=== PATIENT | female | born 1935 | race Caucasian/White ===

== ENCOUNTER 2023-01-19 12:47 | Outpatient (OUT) | payer MEDICARE, OTHER, SELFPAY ==
--- NOTE | 2023-01-19 | RT_ITS ---
The [facility] Test Date: 2023-01-19 Pat Name: Karen Ladd Department: Room: - Gender: Female Aerospace Technician: Mitch Kelly RRT : 1935 Requested By: [id number] Order Number: [id number] Reading MD: Damian Person Interpretive Statements Pulmonary function testing was completed according to ATS criteria. Findings were considered accurate and reproducible. Both pre- and post-bronchodilator values utilized for spirometry. No prior studies available for comparison. Spirometry (based on pre-bronchodilator values): -FEV1/FVC: Normal @ 85% -FEV1: Low normal @ 80% -FVC: Mild-moderately reduced @ 70% -There is no significant bronchodilator response. Lung volumes by plethysmography (based on pre-bronchodilator values): -RV: Reduced @ 78% -TLC: Mildly reduced @ 75% Diffusion capacity: -DLCO: Severe reduction @ 45% when corrected for Hb 10.8g/dL Flow-volume loop: -Mild restrictive pattern Impressions: -Mild restrictive pattern on spirometry confirmed by a mildly decreased TLC, and a severe diffusion impairment. This pattern can be seen in, but not restricted to, cardiopulmonary vascular disorders and interstitial lung disease. Clinical correlation required. Electronically Signed On 01-20-2023 18:14:37 EDT by Damian Person
[2023-01-19 13:08] LABS: Hemoglobin 10.8 g/dL (12.0-16.0)
[2023-01-19] MEDS: ALBUTEROL SULFATE 2.5 MG/3 ML VIAL NEB IH (15:57)
== END 2023-01-19 12:48 ==
LOC: CARD 12:53
PROVIDERS: PCP Family Medicine; Visit Provider Nurse Practitioner Family
DX: R06.09 Other forms of dyspnea (principal)
CPT/HCPCS: 36415; 85018; 94060; 94726; 94729

== ENCOUNTER 2023-02-21 10:50 | Outpatient (OUT) | payer MEDICARE, OTHER, SELFPAY ==
--- NOTE | 2023-02-21 11:01 | XR_ITS ---
The [address] [address] Patient Name: DEBORA GIFFORD MRN: [id number] date: 1935 Sex: F Assigned Patient Location: [facility] Current Patient Location: [facility] Accession/Order Number: [id number] Exam Date: 02/21/2023 11:05 Report Date: 02/21/2023 11:38 At the request of: DEMARIO GARCIA Procedure: XR chest 2V EXAM: XR chest 2V HISTORY: Acute Bronchitis J20.9 COMPARISON: None. TECHNIQUE: PA and lateral views of the chest. FINDINGS: The cardiomediastinal silhouette is enlarged. Left-sided cardiac pacemaker. Mild interstitial opacity. Small bilateral pleural effusions. No pneumothorax. The osseous structures are intact. XR/XR chest 2V IMPRESSION: Cardiomegaly with congestion. Underlying pneumonia cannot be excluded. Electronically authenticated by: ABIMBOLA AMADOR Date: 02/21/2023 11:38
== END 2023-02-21 10:51 | disposition home or self-care (01) ==
PROVIDERS: PCP Family Medicine; Visit Provider Internal Medicine
DX: J20.9 Acute bronchitis, unspecified (principal); I51.7 Cardiomegaly
CPT/HCPCS: 71046

== ENCOUNTER 2023-02-21 18:37 | Observation (INO) | payer MEDICARE, OTHER, SELFPAY ==
[2023-02-21] VITALS (17 sets, daily range): BP systolic 104–136; BP diastolic 57–82; PULSE 66–90; RESP 15–30; TEMP 36.4–36.6; O2SAT 87–95; BMI 25.7; BMI 28.5
--- NOTE | 2023-02-21 19:13 | ECG_ITS ---
The [facility] Test Date: 2023-02-21 Pat Name: DEBORA GIFFORD Department: Room: - Gender: Female Medical Communication Specialist: : 1935 Requested By: [id number] Order Number: [id number] Reading MD: VINCENZO AUSTIN Measurements Intervals [place] Rate: 74 P: 90 CT: 240 QRS: 71 QRSD: 228 T: 112 QT: 532 QTc: 559 Interpretive Statements 1100 Sinus rhythm 1102 Sinus arrhythmia 2231 First degree AV block 2550 Left bundle branch block 6230 Left atrial enlargement 9150 abnormal ECG No previous ECG available for comparison Electronically Signed On 02-22-2023 6:21:30 EDT by VINCENZO AUSTIN
--- NOTE | 2023-02-21 19:15 | XR_ITS ---
The [address] [address] Patient Name: DEBORA GIFFORD MRN: [id number] date: 1935 Sex: F Assigned Patient Location: ER Current Patient Location: ER Accession/Order Number: [id number] Exam Date: 02/21/2023 20:10 Report Date: 02/21/2023 20:41 At the request of: NADEEM MARKER Procedure: XR chest 1V EXAMINATION: XR chest 1V HISTORY: Shortness of breath COMPARISON: Chest x-rays 11:22 AM TECHNIQUE: Portable chest FINDINGS: Again demonstrated is poor inspiratory effort. The lung parenchyma is free of consolidation or infiltrate. No pneumothorax or pleural effusion. The cardiac, mediastinal and hilar contours are normal. Left-sided cardiac pacemaker. The visualized osseous structures exhibit no gross abnormality. XR/XR chest 1V IMPRESSION: Poor inspiratory effort. No focal discrete irregularity. Dedicated full inspiratory PA and lateral chest radiographs Electronically authenticated by: JAY BARRIENTOS Date: 02/21/2023 20:41
--- NOTE | 2023-02-21 19:18 | ED_ITS ---
HPI - SOB/Dyspnea General Stated Complaint: SOB, COUGH Time Seen by Provider: 02/21/23 19:13 Source: patient and family (daughter) Mode of arrival: walk-in Limitations: no limitations History of Present Illness HPI Narrative: 87-year-old female is brought to the emergency department by her daughter for evaluation of cough, shortness of breath, generalized weakness. Symptoms have been ongoing for approximately 2 weeks. The patient recently had pulmonary function tests done and failed them. She also had her pacemaker evaluated and there seemed to be a problem with it. She was referred to Dr. Person, pulmonology, she saw him earlier in the day and he stated that she needed to recover from the upper respiratory illness that she currently had before he could fully evaluate her. He prescribed her a steroid, cough medication and zithromax. The patient has been having coughing spells with posttussive vomiting and gagging. She coughs up white sputum. She has not had a fever. She states she has felt very weak. She has had no appetite. Her po intake has been poor and she feels like she is getting dehydrated so she has not taken her lasix, 40mg. She sleeps with the head of her bed elevated but states that this is due to her acid reflux. She denies any su chest pain but states she had some pain across her abdomen from coughing. She has no lower extremity pain or swelling. 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 She has had two COVID vaccinations and one booster. She does have a history of atrial fibrillation and is on Xarelto. MD elicited complaint: shortness of breath and cough Context: recent illness Related Data Home Medications Medication Instructions Recorded Confirmed albuterol sulfate 2.5 mg/3 mL 2.5 mg inhalation Q6H PRN 02/21/23 02/22/23 (0.083 %) solution for nebulization shortness of breath or wheezing atenolol 100 mg tablet 100 mg PO BID 02/21/23 02/22/23 azithromycin 250 mg tablet 250 mg PO DAILY 02/21/23 02/22/23 benzonatate 200 mg capsule 200 mg PO TID PRN cough 02/21/23 02/22/23 diltiazem HCl 240 mg 240 mg PO Q24H 02/21/23 02/22/23 capsule,extended release 24 hr flecainide 100 mg tablet 100 mg PO DAILY 02/21/23 02/22/23 furosemide 40 mg tablet 40 mg PO DAILY 02/21/23 02/22/23 latanoprost 0.005 % eye drops 1 drp ophthalmic (eye) QPM 02/21/23 02/22/23 liothyronine 5 mcg tablet 5 mcg PO DAILY 02/21/23 02/22/23 methylprednisolone 4 mg tablets in 4 mg PO DAILY 02/21/23 02/22/23 a dose pack potassium chloride 10 mEq 10 meq PO DAILY 02/21/23 02/22/23 tablet,extended release(part/cryst) rivaroxaban 20 mg tablet (Xarelto) 20 mg PO Q24H 02/21/23 02/22/23 simvastatin 10 mg tablet 10 mg PO QPM 02/21/23 02/22/23 hydralazine 100 mg tablet 100 mg PO TID 02/22/23 02/22/23 magnesium 250 mg tablet 250 mg PO DAILY 02/22/23 02/22/23 Allergies Allergy/AdvReac Type Severity Reaction Status Date / Time Sulfa (Sulfonamide Allergy Severe Verified 02/21/23 18:45 Antibiotics) channel blockers Allergy Severe Uncoded 02/21/23 18:45 Review of Systems ROS Status of ROS 10 or more systems reviewed and unremarkable except as noted in history and below [facility] Social History Do you think of yourself as: straight/heterosexual Gender Identity: female Exam Narrative Exam Narrative: Nurses note and vital signs reviewed, He has a normal pulse and blood pressure, she was afebrile, she has mild hypoxic with pulse ox of 93 percent on room air General: Nontoxic but uncomfortable-appearing elderly female, upon arrival she had an episode of bronchospasm with posttussive gagging and vomiting and soiled herself with liquid stool Skin: Warm, dry, no pallor noted. There is no rash noted. Head: Normocephalic, atraumatic Eye: Normal conjunctiva, no drainage, EOMI. PERRL Ears, Nose, Mouth, and Throat: oral mucosa is sticky, no swelling of the tongue, uvula or pharyngeal soft tissues Cardiovascular: Regular Rate and Rhythm Respiratory: Patient is Coughing with bronchospasm and posttussive gagging and vomiting upon arrival, lungs are clear but dimished at the bases, there is no wheezing rhonchi or rales appreciated, no accessory muscle use Back: non-tender, no CVA tenderness bilaterally to percussion. GI: Normal bowel sounds, no tenderness to palpation, no masses appreciated. No rebound, guarding, or rigidity noted. Musculoskeletal: The patient has no evidence of calf tenderness, no pitting edema, symmetrical pulses noted bilaterally Neurological: A&O x4, normal speech Psychiatric: Cooperative, Anxious,no focal deficits Constitutional Vital Signs, click to edit/add: Last Vital Signs Temp 97.5 F L 02/22/23 00:37 Pulse 75 02/22/23 00:37 Resp 16 02/22/23 00:37 BP 124/67 H 02/22/23 00:37 Pulse Ox 93 L 02/22/23 00:37 O2 Del Method Room Air 02/22/23 00:37 Course Reevaluation(s) Reevaluation #1: Pt reevaluated after IV fluids, Zofran and Hycodan. She is feeling somewhat better and states she has not coughed in an hour. She has an elevated d-dimer, elevated BNP, low hemoglobin at 9.1 and elevated lactic acid. Respiratory panel is pending at this time. Urinalysis is pending at this time. I ordered a CTA of her chest to further evaluate the elevated d-dimer. The patient is on Xarelto however for history of atrial fibrillation. Time: 20:23 Vital Signs Vital signs: Vital Signs Temperature 97.8 F 02/21/23 18:45 Pulse Rate 74 02/21/23 18:45 Respiratory Rate 20 02/21/23 18:45 Blood Pressure 128/59 H 02/21/23 18:45 Pulse Oximetry 95 02/21/23 18:45 Oxygen Delivery Method Room Air 02/21/23 18:45 Temperature 97.5 F L 02/22/23 00:37 Pulse Rate 75 02/22/23 00:37 Respiratory Rate 16 02/22/23 00:37 Blood Pressure 124/67 H 02/22/23 00:37 Pulse Oximetry 93 L 02/22/23 00:37 Oxygen Delivery Method Room Air 02/22/23 00:37 MDM - SOB/Dyspnea MDM Narrative Medical decision making narrative: This 87-year-old female with a history of coronary artery disease has a pacemaker and is on Xarelto with atrial fibrillation as well as hypertension chr onic obstructive pulmonary disease and congestive heart failure in the past presents for evaluation of 2 weeks of progressive cough with generalized weakness. She has not had a fever. The patient's daughter is with her. Upon arrival the patient yelled out for help because she was having trouble breathing due to bronchospasm related to her cough. She has a cough with white phlegm. She denies any su chest pain. She was seen earlier in the day by pulmonology and started on steroids for Zithromax and cough medication. She states she recently failed a pulmonary function test which is what prompted her to see the department store salesperson. She also recently had her pacemaker interrogated and there was a problem with that. The patient states she feels very weak and she feels dehydrated so she has not been taking her Lasix as prescribed. She does not have any lower extremity swelling however. She was evaluated in room 8 upon arrival. An EKG was performed that was a left bundle branch block with pacer spikes and no acute changes. An IV was placed and she was given normal saline to hydrate her and she was given a dose of Zofran and Hycodan for her coughing. After the Hycodan her cough improved and she was able to speak in complete sentences and rest more comfortably. Routine labs are reviewed. She has a normal white count. Her hemoglobin is mildly low at 9.1. She has a normal troponin. Electrolytes are normal. D-dimer was elevated at 1.92. BNP is also elevated at 1977. Lactic acid is elevated at 2.3. CXR shows some PVC and CTA of the chest shows multiple pulmonary nodules and bilateral pleural effusions. This is likely the etiology of her symptoms. She was medicated with 40 mg of IV Lasix and a Burns catheter was placed so that she would not have to get up and down to the bathroom overnig ht. Her respiratory panel was normal. There is no sign of infectious disease. Urinalysis is negative. She will likely benefit from diuresis in the hospital and further evaluation by Pulmonology. The case was discussed with the hospitalist and she is accepted for admission to med/surg. Differential Diagnosis Differential diagnosis: Likely acute exacerbation of chronic obstructive airways disease, congestive heart failure and community acquired pneumonia Lab Data Lab results narrative: Normal white count, low hemoglobin at 9.1, normal troponin, elevated d dimer at 1.92, mildly low sodium at 120, elevated lactic acid at 2.3, elevated BNP at 1977, normal urinalysis, negative respiratory panel Labs: Lab Results 02/21/23 02/21/23 02/21/23 Range/Units 19:35 20:20 22:50 WBC 10.0 (4.0-11.0) 10^3/uL RBC 3.69 L (4.20-5.40) 10^6/uL Hgb 9.1 L (12.0-16.0) g/dL Hct 28.8 L (36.0-48.0) % MCV 78.0 L (81.0-99.0) fL MCH 24.7 L (26.7-34.0) pg MCHC 31.6 (29.9-35.2) g/dL RDW 16.3 H (11.0-15.0) % Plt Count 237 (150-450) 10^3/uL MPV 8.8 L (9.5-13.5) fL Neut % (Auto) 86.2 H (43.0-75.0) % Lymph % (Auto) 6.7 L (20.5-60.0) % [place] % (Auto) 5.5 (1.7-12.0) % Eos % (Auto) 0.3 L (0.9-7.0) % Baso % (Auto) 0.3 (0.2-2.0) % Neut # (Auto) 8.6 H (1.4-6.5) 10^3/uL Lymph # (Auto) 0.7 L (1.2-3.8) 10^3/uL [place] # (Auto) 0.6 (0.3-0.8) 10^3/uL Eos # (Auto) 0.0 (0.0-0.7) 10^3/uL Baso # (Auto) 0.0 (0.0-0.1) 10^3/uL Abs Immat Gran (auto) 0.10 H (0.00-0.03) 10^3/uL Imm/Tot Granulo (auto) 1.0 H (0.0-0.5) % D-Dimer 1.92 H* (<=0.59) mg/L FEU Sodium 120 L* (136-145) mmol/L Potassium 4.2 (3.5-5.1) mmol/L Chloride 83 L* (98-107) mmol/L Carbon Dioxide 27.9 (21.0-32.0) mmol/L Anion Gap 13.3 BUN 17.0 (7.0-18.0) mg/dL Creatinine 0.91 (0.55-1.02) mg/dL Est GFR ( Amer) >60 (>=60) Est GFR (Non-Af Amer) 59 L (>=60) BUN/Creatinine Ratio 18.7 Glucose 200 H (74-106) mg/dL Lactate 2.3 H* (0.4-2.0) mmol/L Calcium 8.6 (8.5-10.1) mg/dL Total Bilirubin 0.9 (0.2-1.0) mg/dL AST 25 (15-37) U/L ALT 26 (14-59) U/L Alkaline Phosphatase 76 (46-116) U/L Troponin I High Sens 20.9 (4.0-51.3) pg/mL NT-Pro-B Natriuret Pep 1977.0 H* (<=1800.0) pg/mL Total Protein 7.1 (6.4-8.2) g/dL Albumin 3.4 (3.4-5.0) g/dL Globulin 3.7 g/dL Albumin/Globulin Ratio 0.9 Urine Color Yellow (YELLOW) Urine Clarity Clear (CLEAR) Urine pH 6.0 (5.0-9.0) Ur Specific [place] 1.015 (1.005-1.025) Urine Protein 30 A (NEG/TRACE) mg/dL Urine Glucose (UA) Negative (NEGATIVE) mg/dL Urine Ketones Negative (NEGATIVE) mg/dL Urine Occult Blood Negative (NEGATIVE) Urine Nitrite Negative (NEGATIVE) Urine Bilirubin Negative (NEGATIVE) Urine Urobilinogen 0.2 (0.2-1.0) EU/dL Ur Leukocyte Esterase Negative (NEGATIVE) Urine RBC 0-2 (0-2) #/HPF Urine WBC 0-2 A (NONE SEEN) #/HPF Ur Squamous Epith Cells Rare (NONE/RARE) #/LPF Urine Crystals None seen (None Seen) #/HPF Urine Bacteria None seen (NONE SEEN) #/HPF Urine Casts None seen (NONE SEEN) #/LPF Urine Mucus None seen (NONE SEEN) Adenovirus (PCR) Not detected (NOT DETECTE) C. pneumoniae DNA (PCR) Not detected (NOT DETECTE) Coronavirus Type OC43 Not detected (NOT DETECTE) Coronavirus Type HKU1 Not detected (NOT DETECTE) Coronavirus Type 229E Not detected (NOT DETECTE) Coronavirus Type NL63 Not detected (NOT DETECTE) Human Metapneumovir PCR Not detected (NOT DETECTE) M. pneumoniae (PCR) Not detected (NOT DETECTE) Parainfluenza PCR Not detected (NOT DETECTE) Parainfluenza 2 (PCR) Not detected (NOT DETECTE) Parainfluenza 3 (PCR) Not detected (NOT DETECTE) Parainfluenza 4 (PCR) Not detected (NOT DETECTE) RSV (RT-PCR) Not detected (NOT DETECTE) Entero/Rhino (PCR) Not detected (NOT DETECTE) SARS-CoV-2 (PCR) Not detected (NOT DETECTE) Bordetella pertussis (PCR) Not detected (NOT DETECTE) B parapertussis DNA PCR Not detected (NOT DETECTE) Influenza Type A (PCR) Not detected (NOT DETECTE) Influenza Type B (PCR) Not detected (NOT DETECTE) ECG Data Attestation: I personally reviewed and interpreted this ECG as follows: (Sinus arrhythmia at 74 beats for minute, normal axis, intermittent pacer spikes noted occasional PVCs, left bundle branch block no acute ST segment elevation) Critical Care Time Critical Care Time Critical Care Time: Yes Total Critical Care Time: 40 Attestation: This patient was seen and evaluated and treated by myself Discharge Plan Discharge Clinical Impression: Breath shortness, CHF (congestive heart failure), Anemia, Pleural effusion Patient Disposition: Admitted as Observation Condition: Fair Discharge Date/Time: 02/21/23 23:39
[2023-02-21 19:39] LABS: Basophils Percent Auto 0.3 % (0.2-2.0); Eosinophils Percent Auto 0.3 % (0.9-7.0); Hematocrit 28.8 % (36.0-48.0); Hemoglobin 9.1 g/dL (12.0-16.0); Lymphocytes Absolute Auto 0.7 10^3/uL (1.2-3.8); Lymphocytes Percent Auto 6.7 % (20.5-60.0); Mean Corpuscular HGB Conc 31.6 g/dL (29.9-35.2); Mean Corpuscular Hemoglobin 24.7 pg (26.7-34.0); Mean Platelet Volume 8.8 fL (9.5-13.5); Monocytes Absolute Auto 0.6 10^3/uL (0.3-0.8); Monocytes Percent Auto 5.5 % (1.7-12.0); Neutrophils Absolute Auto 8.6 10^3/uL (1.4-6.5); Neutrophils Percent Auto 86.2 % (43.0-75.0); Platelet Count 237 10^3/uL (150-450); Red Blood Count 3.69 10^6/uL (4.20-5.40); Red Cell Distribution Width 16.3 % (11.0-15.0)
[2023-02-21] MEDS: 0.9 % SODIUM CHLORIDE 1,000 ML 1000 ML IV (19:42)
[2023-02-21] MEDS: ONDANSETRON PF 4 MG/2 ML VIAL IV (19:42)
[2023-02-21 19:55] LABS: D Dimer 1.92 mg/L FEU (<=0.59)
[2023-02-21 20:00] LABS: Troponin I High Sensitivity 20.9 pg/mL (4.0-51.3)
[2023-02-21 20:06] LABS: Alanine Aminotransferase 26 U/L (14-59); Albumin Globulin Ratio 0.9; Albumin Level 3.4 g/dL (3.4-5.0); Alkaline Phosphatase 76 U/L (46-116); Anion Gap 13.3; Aspartate Amino Transferase 25 U/L (15-37); BUN Creatinine Ratio 18.7; Bilirubin Total 0.9 mg/dL (0.2-1.0); Calcium 8.6 mg/dL (8.5-10.1); Carbon Dioxide 27.9 mmol/L (21.0-32.0); Estimated GFR (African America >60 (>=60); Estimated GFR (Non-African Ame 59 (>=60); Globulin 3.7 g/dL; Glucose 200 mg/dL (74-106); Potassium 4.2 mmol/L (3.5-5.1); Total Protein 7.1 g/dL (6.4-8.2)
[2023-02-21 20:07] LABS: Lactate/Lactic Acid 2.3 mmol/L (0.4-2.0)
[2023-02-21 20:08] LABS: Chloride 83 mmol/L (98-107); Sodium 120 mmol/L (136-145)
--- NOTE | 2023-02-21 20:21 | CT_ITS ---
[address] [address] Patient Name: DEBORA GIFFORD MRN: [id number] date: 1935 Sex: F Assigned Patient Location: ER Current Patient Location: Accession/Order Number: [id number] Exam Date: 02/21/2023 20:50 Report Date: 02/21/2023 21:56 At the request of: NADEEM MARKER Procedure: CT angio chest EXAM: CT angio chest; [id number] REASON FOR EXAM: PE TECHNIQUE: Helical CT images of the chest were obtained after the administration of IV contrast. Multiplanar reformats and maximum intensity projection images were created at the scanner. Dose reduction technique used: Automated exposure control and/or adjustment of the mA and/or kV according to patient size and/or use of iterative reconstruction technique. COMPARISON: Correlated with same day chest x-ray. FINDINGS: Technical quality: Good. Chest: Support devices: Left-sided cardiac pulse generator present. Visualized Thyroid: No nodules. Chest wall: Within normal limits. Evon/mediastinum/esophagus: No mass. Thoracic lymph nodes: No enlarged supraclavicular, mediastinal, hilar or axillary lymph nodes. Heart and vasculature: -No pulmonary artery filling defect to suggest pulmonary embolism. -No pericardial effusion or aortic aneurysm. -Moderate cardiomegaly. -Reflux of contrast into the hepatic veins. Visualized portions of the upper abdomen: Within normal limits. Musculoskeletal: No acute abnormality or suspicious osseous lesion. Lungs/airways: -Solid nodule in the right lower lobe measuring 5 mm mean diameter (series 5 image 50). -Solid nodule versus focal fissural fluid at the right hilum measuring 9 mm in diameter (series 5 image 47). -Several additional (less than 10) 4 mm and less solid nodules are present predominantly in the right lung. -Bibasilar compressive atelectasis. -There is interstitial septal thickening. -Diffuse mosaic attenuation. -The central airways are patent. Pleura: Small bilateral pleural effusions. CT/CT angio chest IMPRESSION: 1. No pulmonary embolism. 2. Moderate CHF/volume overload. 3. Small bilateral pleural effusions. 4. Mosaic attenuation which could be due to air trapping in the setting of poor inspiratory effort versus pulmonary edema. 5. Multiple 9 mm and less solid nodules. In the absence of known malignancy or immunocompromise, consensus guidelines for multiple solid lung nodules 0.6 cm or greater: -Low risk: CT at 3-6 months, then consider CT at 18-24 months if stable. -High risk: CT at 3-6 months, then CT at 18-24 months if stable. (Ref: Pieter, et al. Radiology 2017) Electronically authenticated by: DAWSON CHRISTIANSON Date: 02/21/2023 21:56
[2023-02-21 20:28] LABS: Adenovirus NOT DETECTED (NOT DETECTE); Bordetella parapertussis NOT DETECTED (NOT DETECTE); Coronavirus 229E NOT DETECTED (NOT DETECTE); Coronavirus HKU1 NOT DETECTED (NOT DETECTE); Coronavirus NL63 NOT DETECTED (NOT DETECTE); Coronavirus OC43 NOT DETECTED (NOT DETECTE); Human Metapneumovirus NOT DETECTED (NOT DETECTE); Human Rhinovirus/Enterovirus NOT DETECTED (NOT DETECTE); Influenza A NOT DETECTED (NOT DETECTE); Influenza B NOT DETECTED (NOT DETECTE); Mycoplasma pneumoniae NOT DETECTED (NOT DETECTE); Parainfluenza Virus 1 NOT DETECTED (NOT DETECTE); Parainfluenza Virus 2 NOT DETECTED (NOT DETECTE); Parainfluenza Virus 3 NOT DETECTED (NOT DETECTE); Parainfluenza Virus 4 NOT DETECTED (NOT DETECTE); Respiratory Syncytial Virus NOT DETECTED (NOT DETECTE); SARS-CoV-2 NOT DETECTED (NOT DETECTE)
[2023-02-21] MEDS: CODEINE 10 MG/GUAIFENESIN 100 MG 5 ML CUP PO (20:33)
[2023-02-21 23:13] LABS: Bilirubin Urine NEGATIVE (NEGATIVE); Blood Urine NEGATIVE (NEGATIVE); Clarity Urine CLEAR (CLEAR); Color Urine YELLOW (YELLOW); Glucose Urine UA NEGATIVE (NEGATIVE); Ketones Urine NEGATIVE (NEGATIVE); Leukocyte Esterase Urine NEGATIVE (NEGATIVE); Nitrite Urine NEGATIVE (NEGATIVE); Protein Urine 30 mg/dL (NEG/TRACE); Specific Gravity Urine 1.015 (1.005-1.025); Urobilinogen Urine 0.2 EU/dL (0.2-1.0)
[2023-02-21] MEDS: FUROSEMIDE 40 MG/4 ML VIAL IVP (23:21)
[2023-02-21 23:29] LABS: Bacteria Urine NONE SEEN #/HPF (NONE SEEN); Cast Seen? NONE SEEN #/LPF (NONE SEEN); Crystals Seen? None Seen #/HPF (None Seen); Mucus Urine NONE SEEN (NONE SEEN); RBC Urine 0-2 #/HPF (0-2); Squamous Epithelial Cell Urine RARE #/LPF (NONE/RARE); WBC Urine 0-2 #/HPF (NONE SEEN)
[2023-02-22] VITALS (11 sets, daily range): BP systolic 124–133; BP diastolic 67–74; PULSE 67–87; RESP 16–18; TEMP 36.4–36.6; O2SAT 90–94
--- NOTE | 2023-02-22 00:26 | PC.NURSE ---
Pulmonary visit was this AM physician. Patient failed the pulmonary function test. He treated her for her acute problem and didn't order the CT scan due to her increased cough she had during the visit. University Relations Recruiter stated her pacemaker was abnormal and she has a return visit March [address] Muhammad. The appointment was moved up due to her acute issues.
--- NOTE | 2023-02-22 01:56 | CA_ITS ---
Patient: DEBORA GIFFORD Exam Date: 02/22/2023 : 1935 Gender:F Ordering : DR Billy Patel . Admission #: [id number] Family : Order #: [id number] CLICK HERE TO VIEW EXAM ECHOCARDIOGRAM REPORT PROCEDURE: CA ECHO LIMITED INDICATIONS: chf COMPARISON: None. DESCRIPTION: Limited ECHOCARDIOGRAM Real-time transthoracic echocardiography with 2D and M-mode performed. QUALITY: Technical quality was good. LEFT VENTRICLE: Normal chamber size. Mild concentric left ventricular hypertrophy. LV EF: Global left ventricular systolic function is normal. Calculated left ventricular ejection fraction is 62% LEFT ATRIUM: Severe dilatation. RIGHT ATRIUM: Severe dilatation. RIGHT VENTRICLE: Mild dilatation. Normal right ventricular systolic function. Pacer wire present. TRICUSPID VALVE: Normal mobility and thickness. MITRAL VALVE: Normal mobility and thickness. There is no mitral annular calcification. AORTIC VALVE: Normal trileaflet appearance. Mildly calcified aortic valve. AORTIC ROOT: Normal diameter and appearance. PULMONIC VALVE: Normal thickness and mobility. PERICARDIUM: No evidence of pericardial effusion. IVC: Moderate dilatation. Measuring 2.5cm with no collapse. CONCLUSION: Global left ventricular systolic function is normal; visually estimated ejection fraction is 60 to 65%. No regional wall motion abnormalities. Mildly increased left ventricular wall thickness. Severe biatrial enlargement. The right ventricle is mildly dilated with normal systolic function. A limited echocardiogram was performed. Adult Echocardiography Procedure Report Left Ventricle LVEDD (3.7 - 5.6 cm): 4.66 cm LVESD (2.2 - 4.0 cm): 3.28 cm LVIVS thickness (0.6 - 1.2 cm): 1.25 cm LVPW thickness (0.5 - 1.0 cm): 1.12 cm LVOT Diameter 1.95 cm Left Ventricular Ejection Fraction: 61.77 % Left Atrium LA Volume Index (2D A2C): 55.76 ml/m2 Left Atrium Systolic Dimension: 4.25 cm Mitral Valve Right Ventricle RV Internal Diastolic Dimension: 4.36 cm Aorta AO Root Diam: 2.58 cm Ascending Ao Diam: 2.78 cm Aortic Valve Tricuspid Valve Pulmonic Valve Right Atrium Right Atrium Systolic Pressure: 104.02 ml, 104.02 ml Dictated by: Tiera Heaton M.D. on 02/22/2023 at 12:24 Approved by: Tiera Heaton M.D. on 02/22/2023 at 12:26
--- NOTE | 2023-02-22 02:02 | W.PM.TELEPN ---
Progress Note: Subjective Subjective Interval history: CC: Dyspnea and extreme, cough productive with purulent sputum HPI: This is 89 years old female who presents with above complaints. Patient stating that lately she has been coughing a lot. No fever. Patient also been complaining of dyspnea on exertion. She describes her cough is barely productive with clear sputum. Patient followed by cigar head perforator. She has had PFTs done at Dr. Person office, but feel to do so. She has been recommended to be started on steroid taper, bronchodilators and empiric antibiotics. In spite of this medications his condition continued to deteriorate with worsening shortness of breath. Her daughter finally brought him in for further evaluation. In the emergency room patient's D-dimer found to be elevated. She has had a CT angiogram of her chest done which was negative for pulmonary emboli. Patient's BNP is significantly elevated as well. She has a history of congestive heart failure. Patient is on daily Lasix. Exam Narrative Exam Narrative: Physical Exam: Not in distress, pleasant, lucid, cooperative, Head - atraumatic, eyes - pupils equal, round, reactive to light, extra ocular movement intact, MMM Neck - supple, thyroid not enlarged, LN not palpated Lungs - clear to auscultation, no dullness on percussion CVS - heart sounds S1, S2, no additional murmurs gallop, regular rate and rhythm Gastrointestinal?abdomen is soft, non-tender, non-distended, no organomegaly, positive bowel sounds Extremities no clubbing, cyanosis or edema Neurological?cranial nerve II?XII grossly intact, no meningeal signs, no cerebellar signs, no sensory deficit Musculoskeletal - 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, no effusions, ROM preserved Dermatological - the skin dry, warm, no rashes Psychiatric?patient is AAO X3, patient has normal affect Constitutional Vital Signs, click to edit/add: Last Vital Signs Temp 97.5 F L 02/22/23 00:37 Pulse 75 02/22/23 00:37 Resp 16 02/22/23 00:37 BP 124/67 H 02/22/23 00:37 Pulse Ox 93 L 02/22/23 00:37 O2 Del Method Room Air 02/22/23 00:37 Progress Note: Objective Labs Labs: Short CBC 02/21/23 Range/Units 19:35 WBC 10.0 (4.0-11.0) 10^3/uL Hgb 9.1 L (12.0-16.0) g/dL Hct 28.8 L (36.0-48.0) % Plt Count 237 (150-450) 10^3/uL BMP 02/21/23 19:35 Sodium 120 L* Potassium 4.2 Chloride 83 L* Carbon Dioxide 27.9 BUN 17.0 Creatinine 0.91 Glucose 200 H Calcium 8.6 Liver Function 02/21/23 Range/Units 19:35 Total Bilirubin 0.9 (0.2-1.0) mg/dL AST 25 (15-37) U/L ALT 26 (14-59) U/L Alkaline Phosphatase 76 (46-116) U/L Albumin 3.4 (3.4-5.0) g/dL Urine 02/21/23 Range/Units 22:50 Urine Color Yellow (YELLOW) Urine Clarity Clear (CLEAR) Urine pH 6.0 (5.0-9.0) Ur Specific [place] 1.015 (1.005-1.025) Urine Protein 30 A (NEG/TRACE) mg/dL Urine Glucose (UA) Negative (NEGATIVE) mg/dL Progress Note: A&P Assessment and Plan (1) CHF exacerbation: Assessment and Plan: CHF exacerbation, combined systolic and diastolic with impending Pulmonary edema -patient's condition is guarded and requires inpatient admission for close monitoring and medical management - admit to telemetry floor - heart failure protocol initiated with strict I/Os and daily weight - IV Lasix - O2 supplementation, use BiPAP if needed to - low threshold to transfer to ICU if no improvement - r/o acute CAD by serial Mitchell - will order an ECHO to ascertain an EF%, presence of wall motion abnormalities, valvular structures - consult Command Post Superintendent to assist with management (2) COPD (chronic obstructive pulmonary disease): Assessment and Plan: I am going to continue with inhaled bronchodilators and inhaled steroids, oxygen supplementation as needed. I am going to hold off antibiotics and systemic steroids for now (3) Hypertension: Assessment and Plan: Blood pressure appears to be reasonably well controlled with current regimen. Adjust as needed (4) Dyslipidemia: Assessment and Plan: Resume home dose of statin Telemedicine Attestation Telemedicine Attestation I conducted this encounter from [[place]] via secure live, [id number] video conference with the patient, located at [facility] with [CHF exacerbation]. Prior to the interview, the risks and benefits of telemedicine were discussed with the patient and verbal consent was obtained. As the provider for the telehealth service, I attest that I introduced myself to the patient, provided my credentials, disclosed by location and determined that based on a review of the patient's chart and discussion with members of the patient's treatment team, telemedicine via real-time, 2 way, and interactive audio and video platform is an appropriate and effective means of providing the service. ?The patient and I mutually agree this visit is appropriate for telemedicine. ?The virtual encounter was taken place from? [place], [place]. ?The encounter took approximately 35 minutes. ?The nurse was present during the entire time and I was able to move the stethoscope in appropriate directions. ?The patient was evaluated at the Hospital ? Portions of this note may be dictated using [employer] voice recognition software. Variances in spelling and vocabulary are possible and unintentional. Not all errors may be caught and/or corrected. Please notify the author if any discrepancies are noted and/or if the meaning of any statement is unclear.? ? Patient verbally consented for treatment via video visit with patient currently located at [facility] and provider located in [place].
[2023-02-22] MEDS: HYDRALAZINE HCL 50 MG TABLET 100 MG PO ×2 (05:29→14:41)
[2023-02-22 07:49] LABS: Basophils Percent Auto 0.1 % (0.2-2.0); Hematocrit 28.9 % (36.0-48.0); Hemoglobin 9.1 g/dL (12.0-16.0); Immature Granulocytes Abs Auto 0.05 10^3/uL (0.00-0.03); Immature Granulocytes Pct Auto 0.6 % (0.0-0.5); Lymphocytes Percent Auto 11.9 % (20.5-60.0); Mean Corpuscular HGB Conc 31.5 g/dL (29.9-35.2); Mean Corpuscular Hemoglobin 24.6 pg (26.7-34.0); Mean Corpuscular Volume 78.1 fL (81.0-99.0); Monocytes Absolute Auto 0.6 10^3/uL (0.3-0.8); Monocytes Percent Auto 7.8 % (1.7-12.0); Neutrophils Absolute Auto 6.4 10^3/uL (1.4-6.5); Neutrophils Percent Auto 79.6 % (43.0-75.0); Platelet Count 231 10^3/uL (150-450); Red Cell Distribution Width 16.2 % (11.0-15.0)
[2023-02-22 08:14] LABS: Alanine Aminotransferase 31 U/L (14-59); Albumin Globulin Ratio 0.8; Albumin Level 3.2 g/dL (3.4-5.0); Alkaline Phosphatase 73 U/L (46-116); Anion Gap 11.5; Aspartate Amino Transferase 24 U/L (15-37); BUN Creatinine Ratio 18.2; Bilirubin Total 0.5 mg/dL (0.2-1.0); Calcium 8.9 mg/dL (8.5-10.1); Carbon Dioxide 29.3 mmol/L (21.0-32.0); Chloride 88 mmol/L (98-107); Estimated GFR (African America >60 (>=60); Estimated GFR (Non-African Ame >60 (>=60); Globulin 4.1 g/dL; Glucose 160 mg/dL (74-106); Potassium 3.8 mmol/L (3.5-5.1); Sodium 125 mmol/L (136-145); Total Protein 7.3 g/dL (6.4-8.2)
[2023-02-22] MEDS: TIMOLOL MALEATE 0.5% OP SOL 100 DROPS/5 ML BOTTLE 1 DROP OP (09:00)
[2023-02-22 09:16] LABS: Thyroid Stimulating Hormone 1.813 uIU/mL (0.358-3.740)
[2023-02-22] MEDS: FUROSEMIDE 40 MG/4 ML VIAL IVP (09:19)
[2023-02-22] MEDS: ATENOLOL 50 MG TABLET 100 MG PO (09:20)
[2023-02-22] MEDS: FLECAINIDE ACETATE 50 MG TABLET 100 MG PO (09:21)
[2023-02-22] MEDS: L. ACIDOPHILUS/L.BULGARICUS 1 PACKET GRAN.PACK PO (09:22)
[2023-02-22] MEDS: LIOTHYRONINE SODIUM 5 MCG TABLET PO (09:23)
[2023-02-22] MEDS: MAGNESIUM OXIDE 400 MG TABLET PO (09:24)
[2023-02-22] MEDS: BUDESONIDE 0.5 MG/2 ML AMPULE NEB IH (09:36)
[2023-02-22] MEDS: BENZONATATE 100 MG CAPSULE 200 MG PO (09:48)
[2023-02-22 10:32] LABS: Sodium Urine Random <5 mmol/L (30-90)
--- NOTE | 2023-02-22 10:37 | CM.NOTE ---
Rounds made with Dr. Patel, pt reports feeling much better and wishes to go home. Dr. Patel discussed need for cardiac echo and PT evaluation with possible discharge after lunch.
--- NOTE | 2023-02-22 11:16 | P.HP_ITS ---
H&P: HPI History of Present Illness Chief complaint: SOB, COUGH Narrative: Over the last month patient has been evaluated for increasing shortness of breath. She was seen by pulmonology yesterday. Her breathing became worse and presented to the emergency room. Found to have acute significant wheezing, fluid overload. Patient was admitted for work-up and treatment of same. She does feel much improved this morning after diuresis. Review of Systems ROS Constitutional Denies: fever or chills Eyes Denies: change in vision Respiratory Reports: shortness of breath and cough Gastrointestinal Denies: abdominal pain Genitourinary Denies: painful urination Musculoskeletal Denies: back pain Psychiatric Denies: anxiety or mood swings PFSH PFSH Social History Do you think of yourself as: straight/heterosexual Gender Identity: female Meds Home Medications and Allergies Home Medications Medication Instructions Recorded Confirmed Type albuterol sulfate 2.5 mg/3 mL 2.5 mg inhalation Q6H PRN 02/21/23 02/22/23 History (0.083 %) solution for nebulization shortness of breath or wheezing atenolol 100 mg tablet 100 mg PO BID 02/21/23 02/22/23 History azithromycin 250 mg tablet 250 mg PO DAILY 02/21/23 02/22/23 History benzonatate 200 mg capsule 200 mg PO TID PRN cough 02/21/23 02/22/23 History diltiazem HCl 240 mg 240 mg PO Q24H 02/21/23 02/22/23 History capsule,extended release 24 hr flecainide 100 mg tablet 100 mg PO DAILY 02/21/23 02/22/23 History furosemide 40 mg tablet 40 mg PO DAILY 02/21/23 02/22/23 History latanoprost 0.005 % eye drops 1 drp ophthalmic (eye) QPM 02/21/23 02/22/23 History liothyronine 5 mcg tablet 5 mcg PO DAILY 02/21/23 02/22/23 History methylprednisolone 4 mg tablets in 4 mg PO DAILY 02/21/23 02/22/23 History a dose pack potassium chloride 10 mEq 10 meq PO DAILY 02/21/23 02/22/23 History tablet,extended release(part/cryst) rivaroxaban 20 mg tablet (Xarelto) 20 mg PO Q24H 02/21/23 02/22/23 History simvastatin 10 mg tablet 10 mg PO QPM 02/21/23 02/22/23 History furosemide 20 mg tablet (Lasix) 20 mg PO QAM #30 tabs 02/22/23 Rx hydralazine 100 mg tablet 100 mg PO TID 02/22/23 02/22/23 History magnesium 250 mg tablet 250 mg PO DAILY 02/22/23 02/22/23 History timolol maleate 0.5 % eye drops 1 drp ophthalmic (eye) Q12H 02/22/23 02/22/23 History Allergies Allergy/AdvReac Type Severity Reaction Status Date / Time Sulfa (Sulfonamide Allergy Severe Verified 02/21/23 18:45 Antibiotics) channel blockers Allergy Severe Uncoded 02/21/23 18:45 Exam Constitutional Vital Signs, click to edit/add: Last Vital Signs Temp 97.8 F 02/22/23 04:11 Pulse 87 02/22/23 09:53 Resp 18 02/22/23 04:11 BP 125/70 H 02/22/23 05:29 Pulse Ox 94 L 02/22/23 09:37 O2 Del Method Room Air 02/22/23 09:37 Documenting provider has reviewed patient's vital signs: yes Common normals: no apparent distress Respiratory Common normals: normal respiratory effort, no retractions and no use of accessory muscles Cardio Common normals: regular rate, regular rhythm and no murmurs GI Common normals: Normal to inspection, nondistended, normoactive bowel sounds present Extremity Common normals: normal to inspection Results Labs Labs: Short CBC 02/21/23 02/22/23 Range/Units 19:35 07:22 WBC 10.0 8.0 (4.0-11.0) 10^3/uL Hgb 9.1 L 9.1 L (12.0-16.0) g/dL Hct 28.8 L 28.9 L (36.0-48.0) % Plt Count 237 231 (150-450) 10^3/uL BMP 02/21/23 02/22/23 19:35 07:22 Sodium 120 L* 125 L Potassium 4.2 3.8 Chloride 83 L* 88 L Carbon Dioxide 27.9 29.3 BUN 17.0 16.0 Creatinine 0.91 0.88 Glucose 200 H 160 H Calcium 8.6 8.9 Liver Function 02/21/23 02/22/23 Range/Units 19:35 07:22 Total Bilirubin 0.9 0.5 (0.2-1.0) mg/dL AST 25 24 (15-37) U/L ALT 26 31 (14-59) U/L Alkaline Phosphatase 76 73 (46-116) U/L Albumin 3.4 3.2 L (3.4-5.0) g/dL Urine 02/21/23 Range/Units 22:50 Urine Color Yellow (YELLOW) Urine Clarity Clear (CLEAR) Urine pH 6.0 (5.0-9.0) Ur Specific [place] 1.015 (1.005-1.025) Urine Protein 30 A (NEG/TRACE) mg/dL Urine Glucose (UA) Negative (NEGATIVE) mg/dL Assessment and Plan Assessment and Plan (1) CHF exacerbation: (2) COPD (chronic obstructive pulmonary disease): (3) Hypertension: (4) Dyslipidemia: (5) CHF (congestive heart failure): (6) Pleural effusion: Plan Acute combined congestive heart failure-with pleural air-with pleural effusion-improved this morning but improved this morning. She feels back to her baseline. If she if she is ambulating well on her and her echocardiogram shows that her echocardiogram shows showed no significant difference difference from previous she will difference from previous she will be discharged home in improved condition, medications see list - see me in the office in [facility] next weeek
--- NOTE | 2023-02-22 13:56 | SWNOTE1 ---
SW met with pt to discuss dc needs. Pt's daughter was in room as well. Pt lives at home alone, she is independent and does not use any DME at home. Pt's daughter help her as needed. Pt does not have any concerns or needs at discharge. Pt does yoga. SW reviewed ESPINAL form with pt, she voiced understanding, no questions. Pt signed form, original given to pt and copy placed in chart.
[2023-02-22] MEDS: DILTIAZEM HCL 240 MG CAP.ER.24H PO (14:42)
== END 2023-02-22 14:47 | disposition home or self-care (01) ==
LOC: ER 19:07 → MS 23:45
PROVIDERS: Admitting Provider Internal Medicine; Emergency Provider Emergency Medicine; PCP Family Medicine; Visit Provider Family Medicine
DX: I11.0 Hypertensive heart disease with heart failure (principal); I50.43 Acute on chronic combined systolic (congestive) and diastolic (congestive) heart failure; E78.5 Hyperlipidemia, unspecified; J44.9 Chronic obstructive pulmonary disease, unspecified; Z79.899 Other long term (current) drug therapy; Z79.01 Long term (current) use of anticoagulants; R79.89 Other specified abnormal findings of blood chemistry
CPT/HCPCS: 0202U; 36415; 51702; 71045; 71046; 71275; 80053; 81001; 83605; 83880; 84300; 84436; 84443; 84484; 85025; 85378; 87070; 93005; 93308; 94640; 94761; 96374; 96375; 96376; 99285; G0378; Q3014; Q9967

== ENCOUNTER 2023-02-24 11:35 | Inpatient (IN) | payer MEDICARE, OTHER, SELFPAY ==
[2023-02-24] VITALS (22 sets, daily range): BP systolic 117–148; BP diastolic 55–81; PULSE 66–81; RESP 16–28; TEMP 36.5–36.6; O2SAT 88–95; BMI 27.4; BMI 28.3
--- NOTE | 2023-02-24 11:59 | ED.GENADUL1 ---
HPI - General Adult General Chief complaint: Upper Respiratory Infection Stated complaint: SOB Time Seen by Provider: 02/24/23 11:50 Source: patient and family Mode of arrival: Wheelchair Limitations: no limitations History of Present Illness HPI narrative: The patient presented to us with shortness of breath that that has not improved since the last admission according to her although she was feeling better in the day of discharge, the patient was not able to get out of the bed because of shortness of breath she also has noted decreased by mouth intake No Nausea no vomiting no chest pain Related Data Home Medications Medication Instructions Recorded Confirmed albuterol sulfate 2.5 mg/3 mL 2.5 mg inhalation Q6H PRN 02/21/23 02/22/23 (0.083 %) solution for nebulization shortness of breath or wheezing atenolol 100 mg tablet 100 mg PO BID 02/21/23 02/22/23 azithromycin 250 mg tablet 250 mg PO DAILY 02/21/23 02/22/23 benzonatate 200 mg capsule 200 mg PO TID PRN cough 02/21/23 02/22/23 diltiazem HCl 240 mg 240 mg PO Q24H 02/21/23 02/22/23 capsule,extended release 24 hr flecainide 100 mg tablet 100 mg PO DAILY 02/21/23 02/22/23 furosemide 40 mg tablet 40 mg PO DAILY 02/21/23 02/22/23 latanoprost 0.005 % eye drops 1 drp ophthalmic (eye) QPM 02/21/23 02/22/23 liothyronine 5 mcg tablet 5 mcg PO DAILY 02/21/23 02/22/23 methylprednisolone 4 mg tablets in 4 mg PO DAILY 02/21/23 02/22/23 a dose pack potassium chloride 10 mEq 10 meq PO DAILY 02/21/23 02/22/23 tablet,extended release(part/cryst) rivaroxaban 20 mg tablet (Xarelto) 20 mg PO Q24H 02/21/23 02/22/23 simvastatin 10 mg tablet 10 mg PO QPM 02/21/23 02/22/23 hydralazine 100 mg tablet 100 mg PO TID 02/22/23 02/22/23 magnesium 250 mg tablet 250 mg PO DAILY 02/22/23 02/22/23 timolol maleate 0.5 % eye drops 1 drp ophthalmic (eye) Q12H 02/22/23 02/22/23 Previous Rx's Medication Instructions Recorded furosemide 20 mg tablet (Lasix) 20 mg PO QAM #30 tabs 02/22/23 Allergies Allergy/AdvReac Type Severity Reaction Status Date / Time Sulfa (Sulfonamide Allergy Severe Verified 02/21/23 18:45 Antibiotics) channel blockers Allergy Severe Uncoded 02/21/23 18:45 Review of Systems ROS Status of ROS 10 or more systems reviewed and unremarkable except as noted in history and below PFSH PFSH Social History Do you think of yourself as: straight/heterosexual Gender Identity: female Exam Narrative Exam Narrative: Nurses notes and vital signs reviewed and patient is not hypoxic. General: Well-appearing and in no apparent distress. Skin: Warm, dry, no pallor noted. No rash. Head: Normocephalic, atraumatic. Neck: Supple, non-tender. Eye: Pupils are equal, round and EOMI. No scleral icterus. Ears, Nose, Mouth, and Throat: TM are clear, no nasal mucosal hypertrophy. Oral mucosa is moist, no posterior oropharynx erythema, uvula is mid-line Cardiovascular: Regular Rate and Rhythm without murmur, gallop or rub. Respiratory: No accessory muscle use or respiratory distress. Lungs decreased air e3ntry in the bases Chest Wall: no tenderness Back: No midline thoracic or lumbar vertebral tenderness. No CVA tenderness Musculoskeletal: normal ROM, no calf or popliteal tenderness, no lower extremity edema/swelling GI: Abdomen is soft, Abdomen distention with no tenderness on examination No tenderness to palpation. No rebound, guarding, or rigidity noted. Neurological: A&O x4. No cranial nerve dysfunction observed. No truncal ataxia. Moves all extremities. Sensation intact. Psychiatric: Cooperative and interactive. Normal mood and affect. Constitutional Vital Signs, click to edit/add: Last Vital Signs Temp 97.9 F 02/24/23 11:40 Pulse 72 02/24/23 13:45 Resp 22 02/24/23 13:45 BP 137/76 H 02/24/23 13:45 Pulse Ox 89 L 02/24/23 13:45 O2 Del Method Room Air 02/24/23 11:40 Course Vital Signs Vital signs: Vital Signs Temperature 97.9 F 02/24/23 11:40 Pulse Rate 72 02/24/23 11:40 Respiratory Rate 20 02/24/23 11:40 Blood Pressure 117/55 L 02/24/23 11:40 Pulse Oximetry 92 L 02/24/23 11:40 Oxygen Delivery Method Room Air 02/24/23 11:40 Temperature 97.9 F 02/24/23 11:40 Pulse Rate 72 02/24/23 13:45 Respiratory Rate 22 02/24/23 13:45 Blood Pressure 137/76 H 02/24/23 13:45 Pulse Oximetry 89 L 02/24/23 13:45 Oxygen Delivery Method Room Air 02/24/23 11:40 Medical Decision Making MDM Narrative Medical decision making narrative: EKG was showing some conduction abnormality although was possibly sinus and no afib The patient BNP is elevated more than the last time she was hereand bilateral effusion confirmed on imaging Other issues including hyponatremia, and hypoxemia as the patient pulse ox ninety-one percent in room air when she is sitting down The patient needs further diuresis Physician case discussed with Dr. Patel and she will be admitted Lab Data Labs: Lab Results 02/24/23 Range/Units 12:05 WBC 10.2 (4.0-11.0) 10^3/uL RBC 3.71 L (4.20-5.40) 10^6/uL Hgb 9.3 L (12.0-16.0) g/dL Hct 28.1 L (36.0-48.0) % MCV 75.7 L (81.0-99.0) fL MCH 25.1 L (26.7-34.0) pg MCHC 33.1 (29.9-35.2) g/dL RDW 16.4 H (11.0-15.0) % Plt Count 273 (150-450) 10^3/uL MPV 9.0 L (9.5-13.5) fL Neut % (Auto) 71.6 (43.0-75.0) % Lymph % (Auto) 14.3 L (20.5-60.0) % [place] % (Auto) 13.1 H (1.7-12.0) % Eos % (Auto) 0.3 L (0.9-7.0) % Baso % (Auto) 0.0 L (0.2-2.0) % Neut # (Auto) 7.3 H (1.4-6.5) 10^3/uL Lymph # (Auto) 1.5 (1.2-3.8) 10^3/uL [place] # (Auto) 1.3 H (0.3-0.8) 10^3/uL Eos # (Auto) 0.0 (0.0-0.7) 10^3/uL Baso # (Auto) 0.0 (0.0-0.1) 10^3/uL Abs Immat Gran (auto) 0.07 H (0.00-0.03) 10^3/uL Imm/Tot Granulo (auto) 0.7 H (0.0-0.5) % Sodium 122 L* (136-145) mmol/L Potassium 3.7 (3.5-5.1) mmol/L Chloride 86 L (98-107) mmol/L Carbon Dioxide 31.1 (21.0-32.0) mmol/L Anion Gap 8.6 BUN 22.0 H (7.0-18.0) mg/dL Creatinine 0.87 (0.55-1.02) mg/dL Est GFR ( Amer) >60 (>=60) Est GFR (Non-Af Amer) >60 (>=60) BUN/Creatinine Ratio 25.3 Glucose 128 H (74-106) mg/dL Calcium 9.0 (8.5-10.1) mg/dL Magnesium 2.1 (1.8-2.4) mg/dL Total Bilirubin 0.5 (0.2-1.0) mg/dL AST 23 (15-37) U/L ALT 34 (14-59) U/L Alkaline Phosphatase 75 (46-116) U/L Troponin I High Sens 27.0 (4.0-51.3) pg/mL NT-Pro-B Natriuret Pep 4498.0 H* (<=1800.0) pg/mL Total Protein 7.5 (6.4-8.2) g/dL Albumin 3.4 (3.4-5.0) g/dL Globulin 4.1 g/dL Albumin/Globulin Ratio 0.8 Discharge Plan Discharge Chief Complaint: Upper Respiratory Infection Clinical Impression: Acute exacerbation of CHF (congestive heart failure), Hypoxemia, Bilateral pleural effusion Patient Disposition: Admitted As Inpatient Time of Disposition Decision: 14:01 Condition: Fair
--- NOTE | 2023-02-24 12:00 | XR_ITS ---
The [address] [address] Patient Name: DEBORA GIFFORD MRN: [id number] date: 1935 Sex: F Assigned Patient Location: ER Current Patient Location: ER Accession/Order Number: [id number] Exam Date: 02/24/2023 12:00 Report Date: 02/24/2023 12:47 At the request of: CATY GILES Procedure: XR chest 1V EXAM: XR chest 1V at 1138 hours HISTORY: sob COMPARISON: 02/21/2023 TECHNIQUE: AP upright portable chest x-ray FINDINGS: The heart is mildly enlarged with prominence of the central pulmonary vasculature. The left-sided pacemaker remains in place. A small amount of atelectasis or infiltrate is seen in the right lower lumbar with the suggestion of a tiny effusion. Degenerative changes are seen in the spine. XR/XR chest 1V IMPRESSION: Mild cardiac enlargement with mild vascular congestion. Subtle atelectasis or infiltrate is seen in the right lower lung, which is unchanged. Very small pleural effusion on the right is suggested and may present. The overall appearance of the chest has probably not changed significantly. Electronically authenticated by: MATILDE LINARES Date: 02/24/2023 12:47
--- NOTE | 2023-02-24 12:00 | ECG_ITS ---
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
--- NOTE | 2023-02-24 12:00 | CT_ITS ---
[address] [address] Patient Name: DEBORA GIFFORD MRN: [id number] date: 1935 Sex: F Assigned Patient Location: ER Current Patient Location: Accession/Order Number: [id number] Exam Date: 02/24/2023 12:25 Report Date: 02/24/2023 13:12 At the request of: CATY GILES Procedure: CT abdomen pelvis wo con EXAMINATION: CT abdomen pelvis wo con HISTORY: abd distension , shortness breath, weakness, fatigue COMPARISON: CT chest 02/21/2023 TECHNIQUE: Axial, Coronal, and Sagittal images were obtained without and/or with IV contrast as indicated by examination type. Dose reduction techniques were achieved by using automated exposure control and/or adjustment of mA and/or kV according to patient size and/or use of iterative reconstruction technique. FINDINGS: LUNG BASES: Bilateral pleural effusions 4.5 cm in thickness on right, 1.5 cm on left. Mild atelectasis or infiltrates within lung bases. Stable mild cardiomegaly. LIVER: No enlargement, atrophy, suspicious density, or significant focal lesion. BILIARY: No dilatation or calcification. PANCREAS: No lesion, fluid collection, or abnormal duct dilatation. SPLEEN: No enlargement or focal lesion. ADRENALS: No mass or enlargement. KIDNEYS: Left renal hypodensities favoring cysts. No mass, obstruction, or calcification. BOWEL/MESENTERY: No visible mass, obstruction, or bowel wall thickening. AORTA/VASCULAR: No aneurysm or dissection. RETROPERITONEUM: No mass or adenopathy. LYMPH NODES: No adenopathy. URINARY BLADDER: 5.2 cm fluid collection posterior to the bladder, suspected to represent a diverticulum. Gallbladder wall thickening or stones. PELVIC ORGANS: Hysterectomy. ABDOMINAL WALL: No mass or hernia. BONES: No bony lesion or fracture. Multilevel degenerative disc disease of lumbar spine. OTHER: Negative. CT/CT abdomen pelvis wo con IMPRESSION: 1.Moderate large right pleural effusion and moderate left pleural effusion; not appreciably changed compared to 3 days ago. 2. Suspect mild bibasilar atelectasis, or possibly pulmonary edema. 3.Large fluid collection posterior to the urinary bladder, 5.2 cm in diameter. No appreciable connection to the bladder, but its appearance favors a bladder diverticulum. A large ovarian cyst cannot be completely excluded. Consider ultrasound evaluation of the bladder pre and post void. Electronically authenticated by: KD DALY Date: 02/24/2023 13:12
[2023-02-24 12:42] LABS: Eosinophils Percent Auto 0.3 % (0.9-7.0); Hematocrit 28.1 % (36.0-48.0); Hemoglobin 9.3 g/dL (12.0-16.0); Immature Granulocytes Abs Auto 0.07 10^3/uL (0.00-0.03); Immature Granulocytes Pct Auto 0.7 % (0.0-0.5); Lymphocytes Absolute Auto 1.5 10^3/uL (1.2-3.8); Lymphocytes Percent Auto 14.3 % (20.5-60.0); Mean Corpuscular HGB Conc 33.1 g/dL (29.9-35.2); Mean Corpuscular Hemoglobin 25.1 pg (26.7-34.0); Mean Corpuscular Volume 75.7 fL (81.0-99.0); Monocytes Absolute Auto 1.3 10^3/uL (0.3-0.8); Monocytes Percent Auto 13.1 % (1.7-12.0); Neutrophils Absolute Auto 7.3 10^3/uL (1.4-6.5); Neutrophils Percent Auto 71.6 % (43.0-75.0); Platelet Count 273 10^3/uL (150-450); Red Blood Count 3.71 10^6/uL (4.20-5.40); Red Cell Distribution Width 16.4 % (11.0-15.0); White Blood Count 10.2 10^3/uL (4.0-11.0)
[2023-02-24 12:58] LABS: Magnesium 2.1 mg/dL (1.8-2.4)
[2023-02-24 13:09] LABS: Alanine Aminotransferase 34 U/L (14-59); Albumin Globulin Ratio 0.8; Albumin Level 3.4 g/dL (3.4-5.0); Alkaline Phosphatase 75 U/L (46-116); Anion Gap 8.6; Aspartate Amino Transferase 23 U/L (15-37); BUN Creatinine Ratio 25.3; Bilirubin Total 0.5 mg/dL (0.2-1.0); Carbon Dioxide 31.1 mmol/L (21.0-32.0); Chloride 86 mmol/L (98-107); Estimated GFR (African America >60 (>=60); Estimated GFR (Non-African Ame >60 (>=60); Globulin 4.1 g/dL; Glucose 128 mg/dL (74-106); Potassium 3.7 mmol/L (3.5-5.1); Total Protein 7.5 g/dL (6.4-8.2)
[2023-02-24 13:23] LABS: Sodium 122 mmol/L (136-145)
[2023-02-24 18:19] LABS: Lactate/Lactic Acid 1.3 mmol/L (0.4-2.0)
[2023-02-24] MEDS: BUMETANIDE 10 MG in 0.9 % SODIUM CHLORIDE 160 ML 20 MG IV (19:09)
[2023-02-24 19:54] LABS: Bilirubin Urine NEGATIVE (NEGATIVE); Blood Urine NEGATIVE (NEGATIVE); Clarity Urine CLEAR (CLEAR); Color Urine LT. YELLOW (YELLOW); Glucose Urine UA NEGATIVE (NEGATIVE); Ketones Urine NEGATIVE (NEGATIVE); Leukocyte Esterase Urine NEGATIVE (NEGATIVE); Nitrite Urine NEGATIVE (NEGATIVE); Protein Urine NEGATIVE (NEG/TRACE); Urobilinogen Urine 0.2 EU/dL (0.2-1.0); pH Urine 6.5 (5.0-9.0)
[2023-02-24] MEDS: METHYLPREDNISOLONE SOD SUCC PF 125 MG/2 ML VIAL 60 MG IVP (19:55)
[2023-02-24] MEDS: AZITHROMYCIN 500 MG in 0.9 % SODIUM CHLORIDE 250 ML 100 MG IV (19:55)
[2023-02-24] MEDS: MAGNESIUM OXIDE 400 MG TABLET 250 MG PO (19:56)
[2023-02-24] MEDS: RIVAROXABAN 10 MG TABLET 20 MG PO (19:56)
[2023-02-24 20:15] LABS: Bacteria Urine TRACE #/HPF (NONE SEEN); Cast Seen? NONE SEEN #/LPF (NONE SEEN); Crystals Seen? None Seen #/HPF (None Seen); Mucus Urine NONE SEEN (NONE SEEN); RBC Urine 0-2 #/HPF (0-2); Squamous Epithelial Cell Urine FEW #/LPF (NONE/RARE); WBC Urine 0-2 #/HPF (NONE SEEN)
[2023-02-24] MEDS: IPRATROPIUM/ALBUTEROL SULFATE 3 ML AMPUL.NEB IH (20:16)
[2023-02-24] MEDS: FLECAINIDE ACETATE 50 MG TABLET 100 MG PO (22:21)
[2023-02-24] MEDS: POTASSIUM CHLORIDE 10 MEQ ER TABLET 20 MEQ PO (22:22)
[2023-02-24] MEDS: HYDRALAZINE HCL 50 MG TABLET 100 MG PO (22:22)
[2023-02-24] MEDS: ATORVASTATIN CALCIUM 10 MG TABLET PO (22:23)
[2023-02-24] MEDS: ATENOLOL 50 MG TABLET 100 MG PO (22:23)
[2023-02-25] VITALS (23 sets, daily range): BP systolic 126–151; BP diastolic 63–71; PULSE 60–86; RESP 16–18; TEMP 36.4–36.7; O2SAT 92–96; BMI 26.0
[2023-02-25] MEDS: METHYLPREDNISOLONE SOD SUCC PF 125 MG/2 ML VIAL 60 MG IVP ×4 (02:34→23:40)
[2023-02-25 04:42] LABS: Basophils Percent Auto 0.1 % (0.2-2.0); Hematocrit 31.9 % (36.0-48.0); Hemoglobin 10.3 g/dL (12.0-16.0); Immature Granulocytes Abs Auto 0.04 10^3/uL (0.00-0.03); Immature Granulocytes Pct Auto 0.5 % (0.0-0.5); Lymphocytes Absolute Auto 0.4 10^3/uL (1.2-3.8); Mean Corpuscular HGB Conc 32.3 g/dL (29.9-35.2); Mean Corpuscular Hemoglobin 24.8 pg (26.7-34.0); Mean Corpuscular Volume 76.7 fL (81.0-99.0); Mean Platelet Volume 8.6 fL (9.5-13.5); Monocytes Absolute Auto 0.2 10^3/uL (0.3-0.8); Monocytes Percent Auto 2.4 % (1.7-12.0); Neutrophils Absolute Auto 6.9 10^3/uL (1.4-6.5); Platelet Count 285 10^3/uL (150-450); Red Blood Count 4.16 10^6/uL (4.20-5.40); Red Cell Distribution Width 16.3 % (11.0-15.0); White Blood Count 7.5 10^3/uL (4.0-11.0)
[2023-02-25] MEDS: IPRATROPIUM/ALBUTEROL SULFATE 3 ML AMPUL.NEB IH ×4 (05:06→20:09)
[2023-02-25 05:11] LABS: Alanine Aminotransferase 37 U/L (14-59); Albumin Level 3.9 g/dL (3.4-5.0); Alkaline Phosphatase 82 U/L (46-116); Anion Gap 8.8; Aspartate Amino Transferase 16 U/L (15-37); BUN Creatinine Ratio 19.1; Bilirubin Total 0.8 mg/dL (0.2-1.0); Calcium 8.9 mg/dL (8.5-10.1); Carbon Dioxide 36.2 mmol/L (21.0-32.0); Chloride 85 mmol/L (98-107); Estimated GFR (African America 57 (>=60); Estimated GFR (Non-African Ame 47 (>=60); Glucose 201 mg/dL (74-106); Magnesium 1.8 mg/dL (1.8-2.4); Sodium 127 mmol/L (136-145); Total Protein 7.9 g/dL (6.4-8.2)
[2023-02-25] MEDS: HYDRALAZINE HCL 50 MG TABLET 100 MG PO ×3 (05:44→21:21)
--- NOTE | 2023-02-25 07:30 | P.HP_ITS ---
H&P: HPI History of Present Illness Chief complaint: SOB Narrative: Patient called the office yesterday with increasing shortness of breath. Gave her options of adjusting medication versus being readmitted. She made the Smart choice of being reevaluated in the emergency room for readmission. Patient found to be in acute combined congestive heart failure. Patient was admitted for work-up and treatment of same Review of Systems ROS Constitutional Denies: fever or chills Eyes Denies: change in vision Ears, nose, mouth, and throat Denies: throat pain Cardiovascular Reports: edema, swelling of feet/ankles, lightheadedness and shortness of breath with exertion; Denies: chest pain or palpitations Respiratory Reports: shortness of breath Gastrointestinal Denies: abdominal pain Genitourinary Denies: painful urination Musculoskeletal Denies: back pain [facility] Medical History (Updated 02/25/23 @ 00:00 by ) Surgical History (Updated 02/24/23 @ 15:08 by Reyna Gutiérrez) Social History Do you think of yourself as: straight/heterosexual Gender Identity: female Meds Home Medications and Allergies Home Medications Medication Instructions Recorded Confirmed Type albuterol sulfate 2.5 mg/3 mL 2.5 mg inhalation Q6H PRN 02/21/23 02/24/23 History (0.083 %) solution for nebulization shortness of breath or wheezing atenolol 100 mg tablet 100 mg PO BID 02/21/23 02/24/23 History azithromycin 250 mg tablet 250 mg PO DAILY 02/21/23 02/24/23 History benzonatate 200 mg capsule 200 mg PO TID PRN cough 02/21/23 02/24/23 History diltiazem HCl 240 mg 240 mg PO 1400 02/21/23 02/24/23 History capsule,extended release 24 hr flecainide 100 mg tablet 100 mg PO BID 02/21/23 02/24/23 History furosemide 40 mg tablet 40 mg PO DAILY 02/21/23 02/24/23 History latanoprost 0.005 % eye drops 1 drp ophthalmic (eye) QPM 02/21/23 02/24/23 History liothyronine 5 mcg tablet 10 mcg PO DAILY 02/21/23 02/24/23 History methylprednisolone 4 mg tablets in 4 mg PO DAILY 02/21/23 02/24/23 History a dose pack potassium chloride 10 mEq 10 meq PO BID 02/21/23 02/24/23 History tablet,extended release(part/cryst) rivaroxaban 20 mg tablet (Xarelto) 20 mg PO .evening 02/21/23 02/24/23 History simvastatin 10 mg tablet 10 mg PO QPM 02/21/23 02/24/23 History hydralazine 100 mg tablet 100 mg PO TID 02/22/23 02/24/23 History magnesium 250 mg tablet 250 mg PO .dinner 02/22/23 02/24/23 History timolol maleate 0.5 % eye drops 1 drp ophthalmic (eye) Q12H 02/22/23 02/24/23 History bisacodyl 5 mg tablet 5 mg PO BID PRN constipation 02/24/23 02/24/23 History Allergies Allergy/AdvReac Type Severity Reaction Status Date / Time Sulfa (Sulfonamide Allergy Severe Verified 02/21/23 18:45 Antibiotics) channel blockers Allergy Severe Uncoded 02/21/23 18:45 Exam Constitutional Vital Signs, click to edit/add: Last Vital Signs Temp 98.1 F 02/25/23 14:00 Pulse 77 02/25/23 16:15 Resp 16 02/25/23 14:00 BP 151/66 H 02/25/23 14:00 Pulse Ox 94 L 02/25/23 16:20 O2 Del Method Room Air 02/25/23 16:20 O2 Flow Rate 0.5 02/25/23 05:47 Documenting provider has reviewed patient's vital signs: yes Common normals: no apparent distress Respiratory Common normals: normal respiratory effort, no retractions and no use of accessory muscles Auscultation: rales Cardio Common normals: regular rate, regular rhythm and no murmurs GI Common normals: Normal to inspection, nondistended, normoactive bowel sounds present Extremity Common normals: abnormal to inspection Other: Bilateral lower extremity edema 1+ Results Labs Labs: Short CBC 02/25/23 Range/Units 04:13 WBC 7.5 (4.0-11.0) 10^3/uL Hgb 10.3 L (12.0-16.0) g/dL Hct 31.9 L (36.0-48.0) % Plt Count 285 (150-450) 10^3/uL BMP 02/25/23 04:13 Sodium 127 L Potassium 3.0 L Chloride 85 L Carbon Dioxide 36.2 H BUN 21.0 H Creatinine 1.10 H Glucose 201 H Calcium 8.9 Liver Function 02/25/23 Range/Units 04:13 Total Bilirubin 0.8 (0.2-1.0) mg/dL AST 16 (15-37) U/L ALT 37 (14-59) U/L Alkaline Phosphatase 82 (46-116) U/L Albumin 3.9 (3.4-5.0) g/dL Urine 02/24/23 Range/Units 19:20 Urine Color Lt. yellow (YELLOW) Urine Clarity Clear (CLEAR) Urine pH 6.5 (5.0-9.0) Ur Specific [place] 1.010 (1.005-1.025) Urine Protein Negative (NEG/TRACE) mg/dL Urine Glucose (UA) Negative (NEGATIVE) mg/dL Assessment and Plan Assessment and Plan (1) CHF (congestive heart failure): (2) Anemia: (3) Pleural effusion: (4) Acute exacerbation of CHF (congestive heart failure): (5) Hypoxemia: (6) Bilateral pleural effusion: (7) Dyslipidemia: (8) Hypertension: Plan Acute hypoxia with respiratory distress, hyponatremia, hyperkalemia, acute kidney injury secondary to acute combined congestive heart failure with elevated BNP.-Worse than last time. Echo completed last time showed just biatrial e nlargement with a good ejection fraction. Patient diuresed well, with the Bumex drip. Repeat Bumex drip again today. She still has some peripheral edema and fluid in lungs. Evaluate tomorrow possible discharge tomorrow if can be weaned off of supplemental oxygen. Consult to cardiology. Hyponatremia-likely secondary to the fluid overload-urine sodium in the past was negative. She does have some lung nodules that need followed up on Iron deficiency anemia-actually improved this likely secondary to the diuresis Hypokalemia today-supplement, Will give IV bolus plus oral boluses Patient requiring additional doses of Bumex drip.Maintain patient as an inpatient. This is also secondary to failed outpatient treatment of her acute combined congestive heart failure.She does have a possible discharge in a.m. if can continue to show signs of improvement and is stable tomorrow
[2023-02-25 08:23] LABS: Free T3 1.61 pg/mL (2.18-3.98); Thyroid Stimulating Hormone 1.695 uIU/mL (0.358-3.740)
--- NOTE | 2023-02-25 08:49 | CM.NOTE ---
Rounds made with Dr. Patel, will consult cardiology to see pt today. PT also will evaluate pt.
[2023-02-25] MEDS: POTASSIUM CHLORIDE 10 MEQ ER TABLET 20 MEQ PO ×3 (08:55→21:21)
[2023-02-25] MEDS: LIOTHYRONINE SODIUM 5 MCG TABLET 10 MCG PO (08:55)
[2023-02-25] MEDS: FLECAINIDE ACETATE 50 MG TABLET 100 MG PO ×2 (08:56→21:21)
[2023-02-25] MEDS: ATENOLOL 50 MG TABLET 100 MG PO ×2 (08:57→21:20)
[2023-02-25] MEDS: HYOSCYAMINE SULFATE 0.125 MG TAB.SUBL SL ×3 (08:58→18:10)
[2023-02-25] MEDS: TIMOLOL MALEATE 0.5% OP SOL 100 DROPS/5 ML BOTTLE 1 DROP OP ×2 (08:58→21:20)
[2023-02-25] MEDS: PANTOPRAZOLE SODIUM 40 MG VIAL IV (08:59)
[2023-02-25] MEDS: POTASSIUM CHLORIDE 40 MEQ in 0.9 % SODIUM CHLORIDE 250 ML 67.5 MEQ IV (09:12)
[2023-02-25] MEDS: 0.9 % SODIUM CHLORIDE 250 ML IV.SOLN 50 ML IV (09:32)
--- NOTE | 2023-02-25 09:57 | CM.NOTE ---
Important Message From Medicare discussed with pt, pt verbalizes understanding and signs paper. Original given to pt and copy placed on pt's chart.
--- NOTE | 2023-02-25 10:22 | SWNOTE1 ---
SW spoke with case management and SNF was recommended. SW stopped in to talk with pt, but she would like to wait until her daughter returns.
[2023-02-25] MEDS: BUMETANIDE 10 MG in 0.9 % SODIUM CHLORIDE 160 ML 20 MG IV (11:34)
[2023-02-25] MEDS: LACTULOSE 10 GM/15 ML (237ML) SOLUTION 30 GM PO ×2 (11:37→15:52)
--- NOTE | 2023-02-25 14:25 | SWNOTE1 ---
BRITTON spoke with pt and pt's daughter in room about pt in need of going to rehab for a short term rehab stay. SW explained to pt and daughter it would be beneficial to build her strength back up. Pt and daughter in agreement. SW reviewed medicare.gov star rating list with pt and daughter. They reviewed and decided on [facility] as first choice and [facility] as second choice. Referral sent to [facility] around 11:45am. BRITTON called and spoke to Tiffani in admissions and it is still under review. Tiffani will call back around 3:00 to let BRITTON know.
--- NOTE | 2023-02-25 14:46 | SWNOTE1 ---
[facility] able to accept pt. SW completed HENS and will have packet ready for weekend. Likely discharge Tuesday02/27/23. SW updated nursing as well.
[2023-02-25] MEDS: DILTIAZEM HCL 240 MG CAP.ER.24H PO (15:52)
--- NOTE | 2023-02-25 16:40 | P.CACN_ITS ---
History of Present Illness History of Present Illness Chief complaint: SOB Narrative: 87-year-old male with a past medical history of paroxysmal A-fib, sinus node dysfunction s/p PPM, GERD, hypertension, LANEY, hyperlipidemia, history of COVID in 2019 She presented to [facility] with shortness of breath following a pulmonary appointment where she was noted to be volume overloaded and recommended admission. She decided to go home and returned with worsening shortness of breath. She has been diuresed with IV Bumex. Kidney function has been stable and she feels like she has improved significantly compared to admission. CT chest which was negative for pulmonary embolism as her D-dimer is elevated to 1.9. She had chest x-ray as well and she has been shown to have bilateral pleural effusions likely related to CHF exacerbation. Being treated for CAP. Review of Systems ROS Cardiovascular Reports: shortness of breath with exertion Respiratory Reports: shortness of breath and chest congestion [facility] Medical History (Updated 02/25/23 @ 17:23 by ZHAO PEDERSEN) Surgical History (Updated 02/24/23 @ 15:08 by Reyna Gutiérrez) Social History Do you think of yourself as: straight/heterosexual Gender Identity: female Meds Home Medications and Allergies Home Medications Medication Instructions Recorded Confirmed Type albuterol sulfate 2.5 mg/3 mL 2.5 mg inhalation Q6H PRN 02/21/23 02/24/23 History (0.083 %) solution for nebulization shortness of breath or wheezing atenolol 100 mg tablet 100 mg PO BID 02/21/23 02/24/23 History azithromycin 250 mg tablet 250 mg PO DAILY 02/21/23 02/24/23 History benzonatate 200 mg capsule 200 mg PO TID PRN cough 02/21/23 02/24/23 History diltiazem HCl 240 mg 240 mg PO 1400 02/21/23 02/24/23 History capsule,extended release 24 hr flecainide 100 mg tablet 100 mg PO BID 02/21/23 02/24/23 History furosemide 40 mg tablet 40 mg PO DAILY 02/21/23 02/24/23 History latanoprost 0.005 % eye drops 1 drp ophthalmic (eye) QPM 02/21/23 02/24/23 History liothyronine 5 mcg tablet 10 mcg PO DAILY 02/21/23 02/24/23 History methylprednisolone 4 mg tablets in 4 mg PO DAILY 02/21/23 02/24/23 History a dose pack potassium chloride 10 mEq 10 meq PO BID 02/21/23 02/24/23 History tablet,extended release(part/cryst) rivaroxaban 20 mg tablet (Xarelto) 20 mg PO .evening 02/21/23 02/24/23 History simvastatin 10 mg tablet 10 mg PO QPM 02/21/23 02/24/23 History hydralazine 100 mg tablet 100 mg PO TID 02/22/23 02/24/23 History magnesium 250 mg tablet 250 mg PO .dinner 02/22/23 02/24/23 History timolol maleate 0.5 % eye drops 1 drp ophthalmic (eye) Q12H 02/22/23 02/24/23 History bisacodyl 5 mg tablet 5 mg PO BID PRN constipation 02/24/23 02/24/23 History Allergies Allergy/AdvReac Type Severity Reaction Status Date / Time Sulfa (Sulfonamide Allergy Severe Verified 02/21/23 18:45 Antibiotics) channel blockers Allergy Severe Uncoded 02/21/23 18:45 Exam Constitutional Vital Signs, click to edit/add: Last Vital Signs Temp 98.1 F 02/25/23 14:00 Pulse 77 02/25/23 16:15 Resp 16 02/25/23 14:00 BP 151/66 H 02/25/23 14:00 Pulse Ox 94 L 02/25/23 16:20 O2 Del Method Room Air 02/25/23 16:20 O2 Flow Rate 0.5 02/25/23 05:47 Respiratory Common normals: normal respiratory effort Effort & inspection: symmetric chest movement Auscultation: rales Cardio Common normals: regular rate and regular rhythm Rhythm: regular rhythm Peripheral pulses: pulses 2+ throughout Extremity Common normals: no pedal edema Results Labs and Meds Lab results: Cardiac Enzymes 02/25/23 Range/Units 04:13 AST 16 (15-37) U/L CBC 02/25/23 Range/Units 04:13 WBC 7.5 (4.0-11.0) 10^3/uL RBC 4.16 L (4.20-5.40) 10^6/uL Hgb 10.3 L (12.0-16.0) g/dL Hct 31.9 L (36.0-48.0) % Plt Count 285 (150-450) 10^3/uL Neut # (Auto) 6.9 H (1.4-6.5) 10^3/uL Lymph # (Auto) 0.4 L (1.2-3.8) 10^3/uL [place] # (Auto) 0.2 L (0.3-0.8) 10^3/uL Eos # (Auto) 0.0 (0.0-0.7) 10^3/uL Baso # (Auto) 0.0 (0.0-0.1) 10^3/uL Comprehensive Metabolic Panel 02/25/23 Range/Units 04:13 Sodium 127 L (136-145) mmol/L Potassium 3.0 L (3.5-5.1) mmol/L Chloride 85 L (98-107) mmol/L Carbon Dioxide 36.2 H (21.0-32.0) mmol/L BUN 21.0 H (7.0-18.0) mg/dL Creatinine 1.10 H (0.55-1.02) mg/dL Glucose 201 H (74-106) mg/dL Calcium 8.9 (8.5-10.1) mg/dL AST 16 (15-37) U/L ALT 37 (14-59) U/L Alkaline Phosphatase 82 (46-116) U/L Total Protein 7.9 (6.4-8.2) g/dL Albumin 3.9 (3.4-5.0) g/dL Intake and Output 02/25/23 02/25/23 02/25/23 07:59 15:59 23:59 Intake Total 900.000 / 6470.327 2011 / 1740 400 / 1740 Output Total 4350 / 5900 1000 / 1900 900 / 1900 Balance -3450.000 / -4500.000 340 / -160 -500 / -160 Intake: Oral 500 / 500 800 / 1200 400 / 1200 Other 200.000 / 450.000 270 / 270 IV 200.000 / 450.000 270 / 270 Bumetanide 10 mg In 0.9 % 200.000 / 200.000 Sodium Chloride 160 ml @ 20 mls /hr IV ONCE [facility] Rx#:[id number] Potassium Chloride 40 meq In 0. 270 / 270 9 % Sodium Chloride 250 ml @ 67 .5 mls/hr IV Q6H PRN Rx#: [id number] Output: Urine 4350 / 5900 1000 / 1900 900 / 1900 Other: Weight 75.4 kg 75.401 kg Patient Weight 02/26/23 07:59 Weight 75.401 kg Imaging and Cardiology Echo: report reviewed ECG results: report reviewed EKG Interpretation EKG: sinus rhythm (AV paced) Assessment and Plan Assessment and Plan (1) Acute exacerbation of CHF (congestive heart failure): (2) Hypertension: (3) PAF (paroxysmal atrial fibrillation): Plan HFpEF NYHA II ? Continue GDMT: Atenolol 100 mg twice daily, Cardizem 25 mg daily, flecainide 100 mg twice daily, Xarelto 20 mg, hydralazine 10 mg 3 times daily -Per [place] documentation she has olmesartan 20 mg daily as home medication, recommend restarting if kidney function stable tomorrow. -Would also recommend starting SGLT2i if kidney function is stable tomorrow morning -Can complete IV Bumex infusion as it is scheduled to discontinue 7 PM, recommend starting Bumex 1 mg daily 02/26/2023 -Aggressive electrolyte replacements -BUN 21, creatinine 1.11 which is elevated compared to admission -I/O: She is net -4460 mL, total urine output 7.6L -Shortness of breath has resolved and no LE edema -Recommend changing home diuretic from Lasix to Bumex 1 mg daily -Echo 02/22/2023 EF 62%, LA and RA severely dilated, RV mildly dilated, normal RV systolic function, moderately dilated IVC. LA volume index 55, indicative of decompensated diastolic heart failure -She had device check 01/2023 which showed an episode of A-fib for 53 minutes but no RVR -ECG while inpatient showed AV paced rhythm -She will need follow-up in 1 week in clinic with BMP and BNP PAF ? Continue Xarelto, [id number] at least 5 for age, gender, hypertension, HFpEF -Monitor creatinine clearance of kidney function declines She will need follow-up with heart failure clinic in 1 week with BMP and BNP for follow-up Recommend transitioning her to 1 mg Bumex p.o. 02/26/2023, restarting olmesartan for GDMT and consider starting SGLT2i if kidney function stable
[2023-02-25] MEDS: MAGNESIUM OXIDE 400 MG TABLET 250 MG PO (18:10)
[2023-02-25] MEDS: BISACODYL 10 MG RECTAL SUPPOSITORY PR (18:11)
[2023-02-25] MEDS: AZITHROMYCIN 500 MG in 0.9 % SODIUM CHLORIDE 250 ML 100 MG IV (21:19)
[2023-02-25] MEDS: ATORVASTATIN CALCIUM 10 MG TABLET PO (21:21)
[2023-02-25] MEDS: RIVAROXABAN 10 MG TABLET 20 MG PO (21:21)
[2023-02-26] VITALS (18 sets, daily range): BP systolic 115–132; BP diastolic 53–69; PULSE 60–79; RESP 16–20; TEMP 36.4–36.8; O2SAT 93–97
[2023-02-26] MEDS: IPRATROPIUM/ALBUTEROL SULFATE 3 ML AMPUL.NEB IH ×4 (04:35→20:00)
[2023-02-26 05:00] LABS: Basophils Percent Auto 0.1 % (0.2-2.0); Hematocrit 31.7 % (36.0-48.0); Hemoglobin 10.1 g/dL (12.0-16.0); Immature Granulocytes Abs Auto 0.08 10^3/uL (0.00-0.03); Immature Granulocytes Pct Auto 0.8 % (0.0-0.5); Lymphocytes Absolute Auto 0.7 10^3/uL (1.2-3.8); Lymphocytes Percent Auto 6.7 % (20.5-60.0); Mean Corpuscular HGB Conc 31.9 g/dL (29.9-35.2); Mean Corpuscular Hemoglobin 24.3 pg (26.7-34.0); Mean Corpuscular Volume 76.2 fL (81.0-99.0); Mean Platelet Volume 8.6 fL (9.5-13.5); Monocytes Absolute Auto 0.6 10^3/uL (0.3-0.8); Monocytes Percent Auto 5.9 % (1.7-12.0); Neutrophils Absolute Auto 8.4 10^3/uL (1.4-6.5); Neutrophils Percent Auto 86.5 % (43.0-75.0); Platelet Count 293 10^3/uL (150-450); Red Blood Count 4.16 10^6/uL (4.20-5.40); Red Cell Distribution Width 16.3 % (11.0-15.0); White Blood Count 9.7 10^3/uL (4.0-11.0)
[2023-02-26 06:00] LABS: Alanine Aminotransferase 31 U/L (14-59); Albumin Globulin Ratio 0.9; Albumin Level 3.5 g/dL (3.4-5.0); Alkaline Phosphatase 72 U/L (46-116); Anion Gap 11.5; Aspartate Amino Transferase 10 U/L (15-37); BUN Creatinine Ratio 19.8; Bilirubin Total 0.7 mg/dL (0.2-1.0); Carbon Dioxide 36.2 mmol/L (21.0-32.0); Chloride 87 mmol/L (98-107); Estimated GFR (African America 54 (>=60); Estimated GFR (Non-African Ame 44 (>=60); Glucose 184 mg/dL (74-106); Magnesium 1.9 mg/dL (1.8-2.4); Sodium 132 mmol/L (136-145); Total Protein 7.5 g/dL (6.4-8.2); Troponin I High Sensitivity 26.1 pg/mL (4.0-51.3)
[2023-02-26 06:11] LABS: Potassium 2.7 mmol/L (3.5-5.1)
[2023-02-26] MEDS: HYDRALAZINE HCL 50 MG TABLET 100 MG PO ×3 (06:18→23:03)
[2023-02-26] MEDS: POTASSIUM CHLORIDE 10 MEQ ER TABLET 20 MEQ PO ×3 (06:20→23:04)
[2023-02-26] MEDS: POTASSIUM CHLORIDE 40 MEQ in 0.9 % SODIUM CHLORIDE 250 ML 67.5 MEQ IV (08:13)
[2023-02-26] MEDS: METHYLPREDNISOLONE SOD SUCC PF 125 MG/2 ML VIAL 60 MG IVP (08:14)
[2023-02-26] MEDS: PANTOPRAZOLE SODIUM 40 MG VIAL IV (08:14)
[2023-02-26] MEDS: ATENOLOL 50 MG TABLET 100 MG PO ×2 (08:15→23:03)
[2023-02-26] MEDS: FLECAINIDE ACETATE 50 MG TABLET 100 MG PO ×2 (08:15→23:03)
[2023-02-26] MEDS: HYOSCYAMINE SULFATE 0.125 MG TAB.SUBL SL ×3 (08:15→18:07)
[2023-02-26] MEDS: LIOTHYRONINE SODIUM 5 MCG TABLET 10 MCG PO (08:15)
[2023-02-26] MEDS: TIMOLOL MALEATE 0.5% OP SOL 100 DROPS/5 ML BOTTLE 1 DROP OP ×2 (08:15→23:05)
--- NOTE | 2023-02-26 09:17 | PM.PN ---
Progress Note: Subjective Subjective Interval history: 87-year-old male with a past medical history of paroxysmal A-fib, sinus node dysfunction s/p PPM, GERD, hypertension, LANEY, hyperlipidemia, history of COVID in 2019. presented to the Emergency Room with increased shortness of breath and was found to be in decompensated heart failure with bilateral pleural effusions. Patient was placed on a Bumex drip which seemed to have improved her symptoms. She is to be placed in the [facility] rehab facility tomorrow. At the time of exam this morning she denies any shortness of breath chest pain and feels overall improved. Exam Narrative Exam Narrative: General: Patient is alert, and oriented to person, place and time with normal affect, proper hygiene Skin: no visible rashes, or ulcers Head: atraumatic, acephalic Neck: no masses palpated, normal thyroid, no JVD or audible carotid bruits Heart: Normal rate and rhythm, no murmurs/rubs/gallops Lungs: no audible wheezes, crackles and normal breath sounds all lung garrett Abdomen: Normal audible bowel sounds, no distension, No palpable masses, no organomegaly, no rebound/guarding/ or rigidity Musculoskeletal: muscle atrophy noted, ROM is limited due to being in hospital bed, no swelling bilateral lower extremities Vascular: Normal carotid, radial, femoral, posterior tibial, and dorsalis pedis pulses Lymph: no supraclavicular, axillary, or anterior/posterior cervical adenopathy Neuro: CN II-X grossly intact, normal sensation upper and lower extremities Constitutional Vital Signs, click to edit/add: Last Vital Signs Temp 97.6 F 02/26/23 04:12 Pulse 67 02/26/23 08:01 Resp 18 02/26/23 04:46 BP 130/67 H 02/26/23 06:18 Pulse Ox 97 02/26/23 04:46 O2 Del Method Room Air 02/26/23 04:46 O2 Flow Rate 0.5 02/25/23 05:47 Progress Note: Objective Labs Labs: Short CBC 02/26/23 Range/Units 04:15 WBC 9.7 (4.0-11.0) 10^3/uL Hgb 10.1 L (12.0-16.0) g/dL Hct 31.7 L (36.0-48.0) % Plt Count 293 (150-450) 10^3/uL BMP 02/26/23 04:15 Sodium 132 L Potassium 2.7 L* Chloride 87 L Carbon Dioxide 36.2 H BUN 23.0 H Creatinine 1.16 H Glucose 184 H Calcium 9.0 Liver Function 02/26/23 Range/Units 04:15 Total Bilirubin 0.7 (0.2-1.0) mg/dL AST 10 L (15-37) U/L ALT 31 (14-59) U/L Alkaline Phosphatase 72 (46-116) U/L Albumin 3.5 (3.4-5.0) g/dL Progress Note: A&P Assessment and Plan (1) Acute exacerbation of CHF (congestive heart failure): Assessment and Plan: chest x-ray showed bilateral pleural effusions diuresed while on Bumex drip. ProBNP has also decreased. Per cardiology recommendations Will place on Bumex 1 mg daily and continue to monitor potassium and she has required supplementation. (2) Hypertension: Assessment and Plan: continue home atenolol, diltiazem, flecainide and hydralazine (3) PAF (paroxysmal atrial fibrillation): Assessment and Plan: rate controlled continue xarelto (4) Hypokalemia: Assessment and Plan: monitor daily and replace (5) Pacemaker: Plan patient is a DNCA Xarelto for DVT prophylaxis Patient as inpatient status and is expected to stay more than two midnights
--- NOTE | 2023-02-26 09:36 | REH.PTDLY ---
Physical Therapy Daily Note PT Daily Note/Assess Start: 02/26/23 09:21 Freq: Status: Active Protocol: Document 02/26/23 09:21 JIMMYMARJORIE (Rec: 02/26/23 09:36 [facility] Physical Therapy Daily Note/Assessment Time In 08:55 Time Out 09:13 Pain Level 0 Subjective Still feeling off. Pt agreeable to therapy. Therapeutic Exercise Minutes (minutes) 5 Therapeutic Exercise Units 0 Therapeutic Exercise Treatment Instructed in the following exs for improved strength in seated position: AP, LAQ, hip abd, and hip add squeeze. Pt fatigues with leg exs. Therapeutic Activity Minutes (minutes) 7 Therapeutic Activity Units 1 Chair Transfer Ability Minimum Assist Therapeutic Activity Comments Sit to stand transfers Min A. Gait training with RW CGA 95 feet with pt taking one brief 20 second standing rest break to gain bearings after turning . Cues when returning to sit to reach back for chair. Total Therapy Minutes 12 Total Physical Therapy Units 1 Daily Note Summary Progressed gait distance this morning with RW, CGA for safety. Pt fatigues with LE exs, more so in R leg pt states. Pt still feeling 'off' today, states she is hoping that goes away as her electrolytes get better.
[2023-02-26] MEDS: BUMETANIDE 1 MG TABLET PO (11:38)
[2023-02-26] MEDS: DILTIAZEM HCL 240 MG CAP.ER.24H PO (14:22)
[2023-02-26] MEDS: MAGNESIUM OXIDE 400 MG TABLET 250 MG PO (18:07)
[2023-02-26] MEDS: AZITHROMYCIN 500 MG in 0.9 % SODIUM CHLORIDE 250 ML 200 MG IV (23:01)
[2023-02-26] MEDS: ATORVASTATIN CALCIUM 10 MG TABLET PO (23:02)
[2023-02-26] MEDS: RIVAROXABAN 10 MG TABLET 20 MG PO (23:03)
[2023-02-27] VITALS (8 sets, daily range): BP systolic 136; BP diastolic 74; PULSE 60–71; RESP 18–20; TEMP 36.2; O2SAT 94–98
[2023-02-27] MEDS: IPRATROPIUM/ALBUTEROL SULFATE 3 ML AMPUL.NEB IH (04:40)
[2023-02-27 05:14] LABS: Basophils Percent Auto 0.1 % (0.2-2.0); Hemoglobin 9.3 g/dL (12.0-16.0); Immature Granulocytes Pct Auto 0.8 % (0.0-0.5); Lymphocytes Percent Auto 7.5 % (20.5-60.0); Mean Corpuscular HGB Conc 32.1 g/dL (29.9-35.2); Mean Corpuscular Hemoglobin 24.7 pg (26.7-34.0); Mean Corpuscular Volume 76.9 fL (81.0-99.0); Mean Platelet Volume 8.5 fL (9.5-13.5); Monocytes Percent Auto 7.6 % (1.7-12.0); Platelet Count 268 10^3/uL (150-450); Red Blood Count 3.77 10^6/uL (4.20-5.40); Red Cell Distribution Width 16.6 % (11.0-15.0); White Blood Count 13.1 10^3/uL (4.0-11.0)
[2023-02-27] MEDS: HYDRALAZINE HCL 50 MG TABLET 100 MG PO (05:30)
[2023-02-27] MEDS: POTASSIUM CHLORIDE 10 MEQ ER TABLET 20 MEQ PO (05:30)
[2023-02-27 05:42] LABS: Alanine Aminotransferase 24 U/L (14-59); Albumin Globulin Ratio 0.9; Albumin Level 3.1 g/dL (3.4-5.0); Alkaline Phosphatase 62 U/L (46-116); Anion Gap 8.3; Aspartate Amino Transferase 13 U/L (15-37); BUN Creatinine Ratio 24.3; Bilirubin Total 0.5 mg/dL (0.2-1.0); Calcium 8.7 mg/dL (8.5-10.1); Carbon Dioxide 35.5 mmol/L (21.0-32.0); Chloride 91 mmol/L (98-107); Estimated GFR (African America 54 (>=60); Estimated GFR (Non-African Ame 45 (>=60); Globulin 3.4 g/dL; Glucose 181 mg/dL (74-106); Magnesium 2.1 mg/dL (1.8-2.4); Potassium 3.8 mmol/L (3.5-5.1); Sodium 131 mmol/L (136-145); Total Protein 6.5 g/dL (6.4-8.2); Troponin I High Sensitivity 20.7 pg/mL (4.0-51.3)
--- NOTE | 2023-02-27 09:14 | PM.DS1 ---
DS: Providers Provider Date of admission: 02/24/23 13:55 Primary care physician: Billy Patel MD Admitting clinician: Billy Patel Consults: 02/24/23 17:24 Physical Therapy Eval and Treat Routine 02/24/23 17:35 Consult to Pharmacy Routine Consulting Provider: Vasquez Forrest 02/25/23 07:00 Consult to Cardiology Routine Consulting Provider: Tiera Heaton Attending physician on discharge: Jenny Srinivasan DS: Diagnosis Discharge Diagnosis (1) Acute exacerbation of CHF (congestive heart failure): (2) Hypertension: (3) PAF (paroxysmal atrial fibrillation): (4) Hypokalemia: (5) Pacemaker: DS: Summary Hospital Course Hospital Course: (1) Acute exacerbation of CHF (congestive heart failure): ?Assessment and Plan: chest x-ray showed bilateral pleural effusions diuresed while on Bumex drip. ProBNP has also decreased. Per cardiology recommendations Will place on Bumex 1 mg daily and continue to monitor potassium and she has required supplementation. (2) Hypertension: ?Assessment and Plan: continue home atenolol, diltiazem, flecainide and hydralazine (3) PAF (paroxysmal atrial fibrillation): ?Assessment and Plan: rate controlled continue xarelto (4) Hypokalemia: ?Assessment and Plan: monitor daily and replace (5) Pacemaker discharge home today with close cardiology follow up for BMP and proBNP Status at Discharge Functional status at discharge: independent ambulation Time Spent with Patient Time attestation: Total time spent providing and/or coordinating discharge services: Exam Narrative Exam Narrative: General: Patient is alert, and oriented to person, place and time with normal affect, proper hygiene Skin: no visible rashes, or ulcers Head: atraumatic, acephalic Neck: no masses palpated, normal thyroid, no JVD or audible carotid bruits Heart: Normal rate and rhythm, no murmurs/rubs/gallops Lungs: no audible wheezes, crackles and normal breath sounds all lung garrett Abdomen: Normal audible bowel sounds, no distension, No palpable masses, no organomegaly, no rebound/guarding/ or rigidity Musculoskeletal: muscle atrophy noted, ROM is limited due to being in hospital bed, no swelling bilateral lower extremities Vascular: Normal carotid, radial, femoral, posterior tibial, and dorsalis pedis pulses Lymph: no supraclavicular, axillary, or anterior/posterior cervical adenopathy Neuro: CN II-X grossly intact, normal sensation upper and lower extremities Constitutional Vital Signs, click to edit/add: Last Vital Signs Temp 97.2 F L 02/27/23 05:39 Pulse 63 02/27/23 08:06 Resp 20 02/27/23 05:39 BP 136/74 H 02/27/23 05:39 Pulse Ox 98 02/27/23 05:39 O2 Del Method Room Air 02/27/23 05:39 O2 Flow Rate 0.5 02/25/23 05:47 DS: Data Data Completed and Pending Labs on day of discharge: Labs from last 24 hours 02/27/23 04:25 WBC 13.1 H RBC 3.77 L Hgb 9.3 L Hct 29.0 L MCV 76.9 L MCH 24.7 L MCHC 32.1 RDW 16.6 H Plt Count 268 MPV 8.5 L Neut % (Auto) 84.0 H Lymph % (Auto) 7.5 L [place] % (Auto) 7.6 Eos % (Auto) 0.0 L Baso % (Auto) 0.1 L Neut # (Auto) 11.0 H Lymph # (Auto) 1.0 L [place] # (Auto) 1.0 H Eos # (Auto) 0.0 Baso # (Auto) 0.0 Abs Immat Gran (auto) 0.10 H Imm/Tot Granulo (auto) 0.8 H Sodium 131 L Potassium 3.8 Chloride 91 L Carbon Dioxide 35.5 H Anion Gap 8.3 BUN 28.0 H Creatinine 1.15 H Est GFR ( Amer) 54 L Est GFR (Non-Af Amer) 45 L BUN/Creatinine Ratio 24.3 Glucose 181 H Calcium 8.7 Magnesium 2.1 Total Bilirubin 0.5 AST 13 L ALT 24 Alkaline Phosphatase 62 Troponin I High Sens 20.7 NT-Pro-B Natriuret Pep 1259.0 Total Protein 6.5 Albumin 3.1 L Globulin 3.4 Albumin/Globulin Ratio 0.9 Discharge Plan Discharge Disposition: Xfer SNF Condition: Fair Discharge Medications: New bumetanide 1 mg Tablet 1 mg PO QD 30 Days Qty: 30 0RF Continued bisacodyl 5 mg tablet 5 mg PO BID PRN (Reason: constipation) albuterol sulfate 2.5 mg /3 mL (0.083 %) solution for nebulization 2.5 mg inhalation Q6H PRN (Reason: shortness of breath or wheezing) atenolol 100 mg tablet 100 mg PO BID benzonatate 200 mg capsule 200 mg PO TID PRN (Reason: cough) Xarelto 20 mg tablet 20 mg PO .evening liothyronine 5 mcg tablet 10 mcg PO DAILY latanoprost 0.005 % drops 1 drp OPHTHALMIC (EYE) QPM flecainide 100 mg tablet 100 mg PO BID Rx Instructions: PER RETAIL FILL HX - LAST FILLED 02/17/23 X90 DAYS 1 PO BID (AM AND HS) diltiazem HCl 240 mg capsule,extended release 24hr 240 mg PO 1400 simvastatin 10 mg tablet 10 mg PO QPM hydralazine 100 mg tablet 100 mg PO TID magnesium 250 mg tablet 250 mg PO .dinner timolol maleate 0.5 % drops 1 drp OPHTHALMIC (EYE) Q12H Changed potassium chloride 10 mEq tablet,ER particles/crystals 20 meq PO BID Qty: 0 0RF Discontinued azithromycin 250 mg tablet 250 mg PO DAILY Patient Comments: [employer] Rx Instructions: RETAIL FILL HX - FILLED 02/21/23 - TO BE TAKEN FOR 5 DAYS methylprednisolone 4 mg tablets,dose pack 4 mg PO DAILY Patient Comments: dose pack Rx Instructions: PER RETAIL FILL HX - FILLED 02/21/23 TO BE TAKEN FOR 6 DAYS furosemide 40 mg tablet 40 mg PO DAILY 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 Forms: Portal Instructions Follow Up Appointments: [facility] cardiology [phone] ext [phone] 1 week for BMP and ProBNP and discuss restarting olmesartan Discharge Date/Time: 02/27/23 11:01
[2023-02-27] MEDS: FLECAINIDE ACETATE 50 MG TABLET 100 MG PO (09:52)
[2023-02-27] MEDS: LIOTHYRONINE SODIUM 5 MCG TABLET 10 MCG PO (09:52)
[2023-02-27] MEDS: BUMETANIDE 1 MG TABLET PO (09:52)
[2023-02-27] MEDS: ATENOLOL 50 MG TABLET 100 MG PO (09:52)
[2023-02-27] MEDS: HYOSCYAMINE SULFATE 0.125 MG TAB.SUBL SL (09:52)
[2023-02-27] MEDS: TIMOLOL MALEATE 0.5% OP SOL 100 DROPS/5 ML BOTTLE 1 DROP OP (09:53)
== END 2023-02-27 11:01 | DRG 291 ==
LOC: ER 14:01 → MS 14:27
PROVIDERS: Admitting Provider Family Medicine; Emergency Provider Emergency Medicine; PCP Family Medicine; Visit Provider Family Medicine
DX: I11.0 Hypertensive heart disease with heart failure (principal); I50.43 Acute on chronic combined systolic (congestive) and diastolic (congestive) heart failure; E87.1 Hypo-osmolality and hyponatremia; I48.0 Paroxysmal atrial fibrillation; E87.6 Hypokalemia; E78.5 Hyperlipidemia, unspecified; R09.02 Hypoxemia; D50.9 Iron deficiency anemia, unspecified; K21.9 Gastro-esophageal reflux disease without esophagitis; G47.33 Obstructive sleep apnea (adult) (pediatric); J44.9 Chronic obstructive pulmonary disease, unspecified; R79.89 Other specified abnormal findings of blood chemistry; Z66 Do not resuscitate; Z51.5 Encounter for palliative care; Z79.890 Hormone replacement therapy; Z79.01 Long term (current) use of anticoagulants; Z79.899 Other long term (current) drug therapy; Z79.52 Long term (current) use of systemic steroids; Z95.0 Presence of cardiac pacemaker; Z86.16 Personal history of COVID-19
CPT/HCPCS: 0202U; 36415; 51702; 71045; 71046; 71275; 74176; 80053; 81001; 83605; 83735; 83880; 84300; 84436; 84443; 84481; 84484; 85025; 85378; 87086; 93005; 93308; 94640; 94667; 94668; 94761; 96365; 96366; 96367; 96368; 96374; 96375; 96376; 97161; 97530; 99285; G0378; J0456; J2930; J3480; Q3014; Q9967

== ENCOUNTER 2023-03-16 10:21 | Outpatient (OUT) | payer MEDICARE, OTHER, SELFPAY ==
[2023-03-16 12:18] LABS: Anion Gap 8.3; BUN Creatinine Ratio 15.7; Calcium 9.5 mg/dL (8.5-10.1); Carbon Dioxide 33.4 mmol/L (21.0-32.0); Chloride 97 mmol/L (98-107); Estimated GFR (African America >60 (>=60); Estimated GFR (Non-African Ame >60 (>=60); Glucose 112 mg/dL (74-106); Potassium 3.7 mmol/L (3.5-5.1); Sodium 135 mmol/L (136-145)
== END 2023-03-16 10:22 | disposition home or self-care (01) ==
LOC: LAB 10:23
PROVIDERS: PCP Family Medicine; Visit Provider Nurse Practitioner
DX: I50.32 Chronic diastolic (congestive) heart failure (principal)
CPT/HCPCS: 36415; 80048

== ENCOUNTER 2023-05-31 01:31 | Emergency (ER) | payer MEDICARE, OTHER, SELFPAY ==
[2023-05-31] VITALS (14 sets, daily range): BP systolic 150–167; BP diastolic 70–82; PULSE 65–100; RESP 14–18; TEMP 36.7; O2SAT 96; BMI 24.8
--- NOTE | 2023-05-31 02:01 | ED.HA1 ---
HPI - Headache General Chief Complaint: Headache Stated Complaint: HIGH BLOOD PRESSURE Time Seen by Provider: 05/31/23 01:55 Source: patient Mode of arrival: walk-in Limitations: no limitations History of Present Illness HPI Narrative: history of HTN , A. fib. States tonight her BP was in the 180s and she developed a headache. Arrives here and her BP has decreased to 167 systolic. headache continues but has improved. No chest pain or dyspnea. MD elicited complaint: Reports headache Related Data Home Medications Medication Instructions Recorded Confirmed albuterol sulfate 2.5 mg/3 mL 2.5 mg inhalation Q6H PRN 02/21/23 05/31/23 (0.083 %) solution for nebulization shortness of breath or wheezing atenolol 100 mg tablet 100 mg PO BID 02/21/23 05/31/23 diltiazem HCl 240 mg 240 mg PO 1400 02/21/23 05/31/23 capsule,extended release 24 hr latanoprost 0.005 % eye drops 1 drp ophthalmic (eye) QPM 02/21/23 05/31/23 liothyronine 5 mcg tablet 10 mcg PO DAILY 02/21/23 05/31/23 rivaroxaban 20 mg tablet (Xarelto) 20 mg PO .evening 02/21/23 05/31/23 simvastatin 10 mg tablet 10 mg PO QPM 02/21/23 05/31/23 hydralazine 100 mg tablet 100 mg PO TID 02/22/23 05/31/23 magnesium 250 mg tablet 250 mg PO .dinner 02/22/23 05/31/23 timolol maleate 0.5 % eye drops 1 drp ophthalmic (eye) Q12H 02/22/23 05/31/23 amiodarone 200 mg tablet 200 mg PO DAILY 05/31/23 05/31/23 Previous Rx's Medication Instructions Recorded bumetanide 1 mg tablet 1 mg PO QD 30 days #30 tabs 02/27/23 Allergies Allergy/AdvReac Type Severity Reaction Status Date / Time Sulfa (Sulfonamide Allergy Severe Verified 02/21/23 18:45 Antibiotics) channel blockers Allergy Severe Uncoded 02/21/23 18:45 Review of Systems ROS Status of ROS 10 or more systems reviewed and unremarkable except as noted in history and below [facility] Medical History (Updated 05/31/23 @ 03:17 by Seth Torres MD) Afib ?I48.91 - Unspecified atrial fibrillation (ICD-10) Breath shortness ?R06.02 - Shortness of breath (ICD-10) Pacemaker ?Z95.0 - Presence of cardiac pacemaker (ICD-10) Surgical History (Updated 02/24/23 @ 15:08 by Reyna Gutiérrez) H/O arthroscopic knee surgery ?Z98.890 - Other specified postprocedural states (ICD-10) H/O: hysterectomy ?Z90.710 - Acquired absence of both cervix and uterus (ICD-10) Hx of cholecystectomy ?Z90.49 - Acquired absence of other specified parts of digestive tract (ICD-10) Social History Do you think of yourself as: straight/heterosexual Gender Identity: female Exam Constitutional Vital Signs, click to edit/add: Last Vital Signs Temp 98.1 F 05/31/23 01:34 Pulse 67 05/31/23 03:00 Resp 15 05/31/23 03:00 BP 154/76 H 05/31/23 03:00 Pulse Ox 96 05/31/23 01:37 O2 Del Method Room Air 05/31/23 01:34 Common normals: no apparent distress, average body habitus, oriented x3, no limitations, healthy appearing, alert and well nourished Eye Common normals: EOMs intact bilaterally and conjunctivae normal Respiratory Common normals: normal respiratory effort, no retractions, no use of accessory muscles and clear to auscultation bilaterally Cardio Common normals: regular rate, regular rhythm, S1 normal heart sound and S2 normal heart sound GI Common normals: Normal to inspection, nondistended, normoactive bowel sounds present, soft to palpation and non-tender Extremity Common normals: normal to inspection and full ROM Neuro Common normals: oriented x3, CN's II-XII intact bilaterally, moves all extremities, no focal motor deficits and no sensory deficits noted Psych Appearance: grossly normal Course Vital Signs Vital signs: Vital Signs Temperature 98.1 F 05/31/23 01:34 Pulse Rate 70 05/31/23 01:34 Respiratory Rate 18 05/31/23 01:34 Blood Pressure 167/70 H 05/31/23 01:34 Pulse Oximetry 96 05/31/23 01:34 Oxygen Delivery Method Room Air 05/31/23 01:34 Temperature 98.1 F 05/31/23 01:34 Pulse Rate 67 05/31/23 03:00 Respiratory Rate 15 05/31/23 03:00 Blood Pressure 154/76 H 05/31/23 03:00 Pulse Oximetry 96 05/31/23 01:37 Oxygen Delivery Method Room Air 05/31/23 01:34 MDM - Headache MDM Narrative Medical decision making narrative: patient presented complaining of headache associated with elevated BP. BP 180 systolic at home. When she arrived here her systolic BP improved to 167 without intervention. She was given a one time dose of Tylenol and observed in the department and her BP improved to 150s systolic without treatment of her BP and her headache was now better as well. Discharged home in improved condition Discharge Plan Discharge Chief Complaint: Headache Clinical Impression: Headache, Hypertension Patient Disposition: Home, Self-Care Prescriptions / Home Meds: No Action bumetanide 1 mg Tablet 1 mg PO QD 30 Days Qty: 30 0RF amiodarone 200 mg tablet 200 mg PO DAILY albuterol sulfate 2.5 mg /3 mL (0.083 %) solution for nebulization 2.5 mg inhalation Q6H PRN (Reason: shortness of breath or wheezing) atenolol 100 mg tablet 100 mg PO BID Xarelto 20 mg tablet 20 mg PO .evening liothyronine 5 mcg tablet 10 mcg PO DAILY latanoprost 0.005 % drops 1 drp OPHTHALMIC (EYE) QPM diltiazem HCl 240 mg capsule,extended release 24hr 240 mg PO 1400 simvastatin 10 mg tablet 10 mg PO QPM hydralazine 100 mg tablet 100 mg PO TID magnesium 250 mg tablet 250 mg PO .dinner timolol maleate 0.5 % drops 1 drp OPHTHALMIC (EYE) Q12H Instructions: Acute Headache (ED), Hypertension (ED) Stand Alone Forms: Portal Instructions Referrals: Billy Patel MD [Primary Care Provider] - 1 week
[2023-05-31] MEDS: ACETAMINOPHEN 500 MG TABLET 1000 MG PO (02:10)
== END 2023-05-31 03:33 | disposition home or self-care (01) ==
PROVIDERS: Emergency Provider Internal Medicine; PCP Family Medicine
DX: R51.9 Headache, unspecified (principal); I10 Essential (primary) hypertension; I48.91 Unspecified atrial fibrillation; Z79.899 Other long term (current) drug therapy; Z79.01 Long term (current) use of anticoagulants; Z95.0 Presence of cardiac pacemaker; Z90.710 Acquired absence of both cervix and uterus; Z90.49 Acquired absence of other specified parts of digestive tract; Z98.890 Other specified postprocedural states
CPT/HCPCS: 99282

== ENCOUNTER 2023-06-08 13:32 | Outpatient (OUT) | payer MEDICARE, OTHER, SELFPAY ==
--- NOTE | 2023-06-08 13:35 | CT_ITS ---
The [address] [address] Patient Name: DEBORA GIFFORD MRN: [id number] date: 1935 Sex: F Assigned Patient Location: CT Current Patient Location: Accession/Order Number: [id number] Exam Date: 06/08/2023 13:52 Report Date: 06/09/2023 11:22 At the request of: VINCENZO AUSTIN Procedure: CT chest wo con CT chest without contrast CLINICAL: Solitary Pulmonary Nodule R91.1 TECHNIQUE: Computed tomography of the chest was performed without intravenous contrast. Dose reduction: mA and/or kV are adjusted by automated exposure control software based on patient size. FINDINGS: Comparison: Chest CT 02/21/2023 Previous dependent pleural effusions have resolved. There is atelectasis or scarring in the medial right lower lobe adjacent to large proliferative thoracic osteophytes. There is also minimal bibasilar atelectasis. There is no lobar consolidation, effusion, or pneumothorax. There are several noncalcified pulmonary nodules in both lungs. One of the largest is in the right middle lobe just anterior to the right hilum (image 52 series 4) at 8 x 7 mm. Another noncalcified right middle lobe pulmonary nodule (image 57 series 4) at 7 x 6 mm, and another right middle lobe noncalcified nodule (image 72 series 4) is a 4 x 4 mm. In the superior segment right lower lobe is a 5 x 5 mm noncalcified nodule (image 53 series 4). There are few additional noncalcified nodules measure 4 mm or smaller in size and seen in both lungs. Overall, these nodules have not significantly changed from 02/21/2023, although a few are probably obscured by atelectasis and effusions noted on previous study. There is no lobar consolidation, effusion, or pneumothorax. Thyroid gland is not enlarged. There are few shotty mediastinal lymph nodes, but no mediastinal, hilar, or axillary lymphadenopathy. There is atherosclerosis of the thoracic aorta with normal heart size, and left-sided cardiac pacemaker device. There are degenerative changes at the shoulders, worse on the left side where there is probably calcific tendinitis. Degenerative spurring noted throughout the spine, without compression fracture or listhesis. CT/CT chest wo con IMPRESSION: 1. Resolution of small pleural effusions and improved aeration of the lungs since previous study 02/21/2023. Currently, minimal bibasilar atelectasis and more focal atelectasis/scarring in the medial right lower lobe adjacent to large proliferative thoracic osteophytes. No acute pulmonary process. 2. Numerous noncalcified pulmonary nodules scattered in both lungs, largest is 8 mm in the right middle lobe. Overall, the nodules have remained stable since CT 02/21/2023, although few are better seen today with background of clear lungs. The pulmonary nodules are of indeterminate character, may be benign or malignant. Given small size of the nodules, PET/CT not recommended at this time and biopsy would be difficult. Follow-up chest CT recommended in 6 months. 3. Negative for thoracic lymphadenopathy. 4. Additional incidental findings discussed above. Electronically authenticated by: ISABELLA CANTU Date: 06/09/2023 11:22
== END 2023-06-08 13:33 | disposition home or self-care (01) ==
LOC: CT 13:32
PROVIDERS: PCP Family Medicine; Visit Provider Family Medicine
DX: R91.1 Solitary pulmonary nodule (principal)
CPT/HCPCS: 71250

== ENCOUNTER 2023-11-29 12:41 | Outpatient (OUT) | payer MEDICARE, OTHER, SELFPAY ==
--- NOTE | 2023-11-29 | US_ITS ---
The [address] [address] Patient Name: DEBORA GIFFORD MRN: [id number] date: 1935 Sex: F Assigned Patient Location: US Current Patient Location: Accession/Order Number: [id number] Exam Date: 11/29/2023 13:00 Report Date: 11/29/2023 14:57 At the request of: VINCENZO AUSTIN Procedure: US pelvis EXAMINATION: US pelvis HISTORY: Pelvic Mass COMPARISON: 02/24/2023 CT FINDINGS: Transabdominal images The uterus is not visualized consistent with provided history of hysterectomy The ovaries were not visualized Echogenic shadowing identified in the right adnexa No focal mass is observed. The cystic lesion identified in the right pelvis on 2022 CT exam is not seen by ultrasound US/US pelvis IMPRESSION: No focal pelvic mass identified by ultrasound Electronically authenticated by: JAY MISTRY Date: 11/29/2023 14:57
== END 2023-11-29 12:42 | disposition home or self-care (01) ==
LOC: US 12:41
PROVIDERS: PCP Family Medicine; Visit Provider Family Medicine
DX: R19.00 Intra-abdominal and pelvic swelling, mass and lump, unspecified site (principal)
CPT/HCPCS: 76856

== ENCOUNTER 2023-12-15 11:15 | Outpatient (OUT) | payer MEDICARE, OTHER, SELFPAY ==
--- NOTE | 2023-12-15 11:25 | CT_ITS ---
The [address] [address] Patient Name: DEBORA GIFFORD MRN: [id number] date: 1935 Sex: F Assigned Patient Location: LAB Current Patient Location: Accession/Order Number: [id number] Exam Date: 12/15/2023 12:45 Report Date: 12/16/2023 07:36 At the request of: VINCENZO AUSTIN Procedure: CT pelvis w con EXAMINATION: CT pelvis w con HISTORY: Pelvic Mass In Female R19.00 COMPARISON: 02/24/2023 TECHNIQUE: Axial, Coronal, and Sagittal CT images obtained without IV contrast. Dose reduction techniques were achieved by using automated exposure control and/or adjustment of mA and/or kV according to patient size and/or use of iterative reconstruction technique. FINDINGS: URINARY BLADDER: No visible focal wall thickening, lesion, or calculus. LYMPH NODES: No adenopathy. BOWEL: No abnormality of the visible bowl. PELVIC ORGANS: Hysterectomy. Slight decrease in size of a now well-circumscribed 5.6 x 4.3 cm fluid collection in the right posterior pelvis adjacent to the vaginal cuff and displacing the rectum towards the left ANTERIOR WALL: No hernia. BONES: No acute fracture or dislocation. Moderate degenerative changes of the spine. 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 CT/CT pelvis w con IMPRESSION: Slight interval decrease in size of a now 5.6 x 4.3 cm well-circumscribed fluid collection in the right pelvis. The etiology is uncertain and the differential diagnosis would include postsurgical seroma, enteric cyst versus ovarian cyst with a bladder diverticulum considered less likely Electronically authenticated by: JAY MISTRY Date: 12/16/2023 07:36
[2023-12-15 11:31] LABS: Estimated GFR (African America >60 (>=60); Estimated GFR (Non-African Ame 55 (>=60)
== END 2023-12-15 11:16 | disposition home or self-care (01) ==
LOC: LAB 11:15
PROVIDERS: PCP Family Medicine; Visit Provider Family Medicine
DX: R19.00 Intra-abdominal and pelvic swelling, mass and lump, unspecified site (principal)
CPT/HCPCS: 36415; 72193; 82565; Q9967

== ENCOUNTER 2024-02-27 10:38 | Outpatient (OUT) | payer MEDICARE, OTHER, SELFPAY ==
--- NOTE | 2024-02-27 10:40 | US_ITS ---
The [address] [address] Patient Name: DEBORA GIFFORD MRN: [id number] date: 1935 Sex: F Assigned Patient Location: [facility] Current Patient Location: [facility] Accession/Order Number: [id number] Exam Date: 02/27/2024 10:40 Report Date: 02/27/2024 11:40 At the request of: LORIE PARK Procedure: US pelvis EXAMINATION: US pelvis HISTORY: OVARIAN CYST COMPARISON: 11/29/2023 FINDINGS: The uterus is surgically absent The right ovary is not definitively seen. Noted in the right adnexa is an area of anechoic echogenicity measuring 5.1 x 3.2 x 5.0 cm. Some internal low-level echoes are observed Left ovary is nonvisualized No free fluid US/US pelvis IMPRESSION: 5.1 cm right adnexal cyst Electronically authenticated by: JAY MISTRY Date: 02/27/2024 11:40
== END 2024-02-27 10:39 | disposition home or self-care (01) ==
LOC: NOMS 10:38
PROVIDERS: PCP Family Medicine; Visit Provider Obstetrics & Gynecology
DX: N83.201 Unspecified ovarian cyst, right side (principal)
CPT/HCPCS: 76856

== ENCOUNTER 2024-02-28 08:43 | Outpatient (OUT) | payer MEDICARE, OTHER, SELFPAY ==
[2024-02-28 10:10] LABS: Lactate Dehydrogenase 136 U/L (81-234)
[2024-02-29 04:07] LABS: AFP, Serum, Tumor Marker <1.8 ng/mL (0.0-8.7); HCG Tumor Marker <1 mIU/mL (.)
[2024-02-29 08:12] LABS: CEA <0.6 ng/mL (0.0-4.7)
== END 2024-02-28 08:44 | disposition home or self-care (01) ==
LOC: LAB 08:45
PROVIDERS: PCP Family Medicine; Visit Provider Obstetrics & Gynecology
DX: N83.299 Other ovarian cyst, unspecified side (principal)
CPT/HCPCS: 36415; 82105; 82378; 83615; 84702; 86304

== ENCOUNTER 2024-03-05 16:03 | Outpatient (OUT) | payer MEDICARE, OTHER, SELFPAY ==
--- NOTE | 2024-03-05 | XR_ITS ---
The [address] [address] Patient Name: DEBORA GIFFORD MRN: [id number] date: 1935 Sex: F Assigned Patient Location: [facility] Current Patient Location: [facility] Accession/Order Number: [id number] Exam Date: 03/05/2024 16:15 Report Date: 03/05/2024 16:48 At the request of: VINCENZO AUSTIN Procedure: XR chest 2V EXAM: XR chest 2V HISTORY: Acute Bronchitis . Cough and shortness of breath for the past 5 days. COMPARISON: 02/21/2023 TECHNIQUE: Upright PA and lateral chest x-ray FINDINGS: The heart is mildly enlarged with some prominence of the central pulmonary vasculature. The left-sided pacemaker remains in place. There is mild prominence of interstitial markings seen diffusely throughout the lungs, with slightly improved aeration in the right lower lung and slightly worsening aeration in the left lower lung, suggesting a subtle atelectasis or infiltrate. Small bilateral pleural effusions are present. There is no evidence of a pneumothorax. Degenerative changes are seen in the spine. XR/XR chest 2V IMPRESSION: Mild cardiac enlargement with some vascular congestion centrally. There is improved aeration at the right lung base and a small amount of atelectasis or infiltrate is seen at the left lung base. These findings are accompanied by tiny bilateral pleural effusions. Electronically authenticated by: MATILDE LINARES Date: 03/05/2024 16:48
== END 2024-03-05 16:04 | disposition home or self-care (01) ==
LOC: RAD 16:04
PROVIDERS: PCP Family Medicine; Visit Provider Family Medicine
DX: J20.9 Acute bronchitis, unspecified (principal)
CPT/HCPCS: 71046

== ENCOUNTER 2024-03-07 10:09 | Inpatient (IN) | payer MEDICARE, OTHER, SELFPAY ==
[2024-03-07] VITALS (55 sets, daily range): BP systolic 78–123; BP diastolic 45–89; PULSE 83–178; TEMP 36.6–36.8; O2SAT 74–98; BMI 23.5; BMI 24.1
--- NOTE | 2024-03-07 10:32 | ECG_ITS ---
The [facility] Test Date: 2024-03-07 Pat Name: DEBORA GIFFORD Department: Room: - Gender: Female [employer]: : 1935 Requested By: VINCENZO AUSTIN Order Number: [id number] Reading MD: VINCENZO AUSTIN Measurements Intervals [place] Rate: 92 P: -10145 NH: -94[address] QRS: 69 QRSD: 134 T: -6 QT: 404 QTc: 453 Interpretive Statements 1210 Atrial fibrillation 2450 Right bundle branch block 9150 abnormal ECG Compared to ECG 02/24/2023 11:53:03 Right bundle-branch block now present Sinus rhythm no longer present First degree AV block no longer present Left bundle-branch block no longer present Myocardial infarct finding no longer present Electronically Signed On 03-07-2024 13:37:13 EDT by VINCENZO AUSTIN
--- NOTE | 2024-03-07 10:33 | XR_ITS ---
The [address] [address] Patient Name: DEBORA GIFFORD MRN: [id number] date: 1935 Sex: F Assigned Patient Location: ED.MAIN Current Patient Location: ER Accession/Order Number: [id number] Exam Date: 03/07/2024 11:25 Report Date: 03/07/2024 12:13 At the request of: CATY GILES Procedure: XR chest 1V EXAM: XR chest 1V HISTORY: . sob . COMPARISON: 2022 TECHNIQUE: Single view of the chest FINDINGS: Heart is mildly to moderately enlarged with a biventricular contour. Pacer is noted. Vascularity is unremarkable. There are a few increased markings in the right midlung field. Left lung is unremarkable. XR/XR chest 1V IMPRESSION: 1. Cardiac enlargement with pacer noted. 2. Improvement in atelectasis and/or early infiltrate in the right midlung field. 3. The remainder of lung garrett are unremarkable. Electronically authenticated by: JAY BYRNE Date: 03/07/2024 12:13
[2024-03-07 10:53] LABS: Basophils Absolute Auto 0.1 10^3/uL (0.0-0.1); Basophils Percent Auto 0.5 % (0.2-2.0); Eosinophils Absolute Auto 0.1 10^3/uL (0.0-0.7); Eosinophils Percent Auto 0.9 % (0.9-7.0); Hematocrit 28.6 % (36.0-48.0); Hemoglobin 8.7 g/dL (12.0-16.0); Immature Granulocytes Abs Auto 0.05 10^3/uL (0.00-0.03); Immature Granulocytes Pct Auto 0.5 % (0.0-0.5); Lymphocytes Absolute Auto 1.3 10^3/uL (1.2-3.8); Lymphocytes Percent Auto 11.3 % (20.5-60.0); Mean Corpuscular HGB Conc 30.4 g/dL (29.9-35.2); Mean Corpuscular Hemoglobin 22.6 pg (26.7-34.0); Mean Corpuscular Volume 74.3 fL (81.0-99.0); Mean Platelet Volume 8.6 fL (9.5-13.5); Monocytes Absolute Auto 1.1 10^3/uL (0.3-0.8); Monocytes Percent Auto 9.8 % (1.7-12.0); Neutrophils Absolute Auto 8.5 10^3/uL (1.4-6.5); Platelet Count 305 10^3/uL (150-450); Red Blood Count 3.85 10^6/uL (4.20-5.40); Red Cell Distribution Width 17.9 % (11.0-15.0); White Blood Count 11.1 10^3/uL (4.0-11.0)
--- NOTE | 2024-03-07 11:10 | ED_ITS ---
HPI - SOB/Dyspnea General Chief Complaint: Shortness of Breath/Dyspnea Stated Complaint: WEAKNESS, DRY HEAVES Time Seen by Provider: 03/07/24 10:22 Source: patient Mode of arrival: Wheelchair Limitations: no limitations History of Present Illness HPI Narrative: The patient have history of A-fib and she is currently undergoing workup for ovarian cancer possibly according to the daughter is coming to us with a almost 4 days history of feeling sick , she was evaluated by her primary care doctor with an x-ray as outpatient that showed no acute pathology almost few days ago after she started having her symptoms, she also was started on antibiotic at the oral treatment for possible pneumonia but the patient mentioned that she is not feeling better The patient still short of breath and on mild exertion she have a cough that is productive She also denies any chest pain or abdominal pain but she had no appetite to eat The patient also is complaining of runny nose and she had a COVID test done at the home and it was negative Related Data Home Medications ?Medication ?Instructions ?Recorded ?Confirmed albuterol sulfate 2.5 mg/3 mL 2.5 mg inhalation Q6H PRN 02/21/23 05/31/23 (0.083 %) solution for nebulization shortness of breath or wheezing atenolol 100 mg tablet 100 mg PO BID 02/21/23 05/31/23 diltiazem HCl 240 mg 240 mg PO 1400 02/21/23 05/31/23 capsule,extended release 24 hr latanoprost 0.005 % eye drops 1 drp ophthalmic (eye) QPM 02/21/23 05/31/23 liothyronine 5 mcg tablet 10 mcg PO DAILY 02/21/23 05/31/23 rivaroxaban 20 mg tablet (Xarelto) 20 mg PO .evening 02/21/23 05/31/23 simvastatin 10 mg tablet 10 mg PO QPM 02/21/23 05/31/23 hydralazine 100 mg tablet 100 mg PO TID 02/22/23 05/31/23 magnesium 250 mg tablet 250 mg PO .dinner 02/22/23 05/31/23 timolol maleate 0.5 % eye drops 1 drp ophthalmic (eye) Q12H 02/22/23 05/31/23 amiodarone 200 mg tablet 200 mg PO DAILY 10/17/23 10/17/23 Previous Rx's ?Medication ?Instructions ?Recorded bumetanide 1 mg tablet 1 mg PO QD 30 days #30 tabs 02/27/23 Allergies Allergy/AdvReac Type Severity Reaction Status Date / Time Sulfa (Sulfonamide Allergy Severe Unknown Verified 03/07/24 10:18 Antibiotics) channel blockers Allergy Severe Headache Uncoded 03/07/24 10:18 Review of Systems ROS Status of ROS 10 or more systems reviewed and unremark able except as noted in history and below [facility] Medical History (Updated 05/31/23 @ 03:17 by Seth Torres MD) Afib ?I48.91 - Unspecified atrial fibrillation (ICD-10) Pacemaker ?Z95.0 - Presence of cardiac pacemaker (ICD-10) Breath shortness ?R06.02 - Shortness of breath (ICD-10) Surgical History (Updated 02/24/23 @ 15:08 by Reyna Gutiérrez) H/O arthroscopic knee surgery ?Z98.890 - Other specified postprocedural states (ICD-10) Hx of cholecystectomy ?Z90.49 - Acquired absence of other specified parts of digestive tract (ICD- 10) H/O: hysterectomy ?Z90.710 - Acquired absence of both cervix and uterus (ICD-10) Social History Do you think of yourself as: straight/heterosexual Gender Identity: female Exam Narrative Exam Narrative: Nurses notes and vital signs reviewed and patient is not hypoxic. General: Well-appearing and in no apparent distress. Skin: Warm, dry, no pallor noted. No rash. Head: Normocephalic, atraumatic. Neck: Supple, non-tender. Eye: Pupils are equal, round and EOMI. No scleral icterus. Ears, Nose, Mouth, and Throat: TM are clear, no nasal mucosal hypertrophy. O ral mucosa is moist, no posterior oropharynx erythema, uvula is mid-line Cardiovascular: Regular Rate and Rhythm without murmur, gallop or rub. Respiratory: No accessory muscle use or respiratory distress. Lungs are clear to auscultation, no wheezing, rales or rhonchi Chest Wall: no tenderness Back: No midline thoracic or lumbar vertebral tenderness. No CVA tenderness Musculoskeletal: normal ROM, no calf or popliteal tenderness, no lower extremity edema/swelling GI: Abdomen is soft, non-distended. Normal bowel sounds. No masses appreciated. No tenderness to palpation. No rebound, guarding, or rigidity noted. Neurological: A&O x4. No cranial nerve dysfunction observed. No truncal ataxia. Moves all extremities. Sensation intact. Psychiatric: Cooperative and interactive. Normal mood and affect. Constitutional Vital Signs, click to edit/add: Last Vital Signs Temp 98.2 F 03/07/24 10:18 Pulse 97 H 03/07/24 11:30 Resp 23 H 03/07/24 11:30 BP 109/67 03/07/24 11:30 Pulse Ox 95 03/07/24 11:10 O2 Del Method Room Air 03/07/24 10:24 Course Vital Signs Vital signs: Vital Signs Pulse Oximetry 87 L 03/07/24 10:16 Temperature 98.2 F 03/07/24 10:18 Pulse Rate 97 H 03/07/24 11:30 Respiratory Rate 23 H 03/07/24 11:30 Blood Pressure 109/67 03/07/24 11:30 Pulse Oximetry 95 03/07/24 11:10 Oxygen Delivery Method Room Air 03/07/24 10:24 MDM - SOB/Dyspnea MDM Narrative Medical decision making narrative: The patient EKG in the ER showing A-fib with a heart rate of [address] elevation or depression Awaiting the results of the chest x-ray the patient D-dimer was elevated With her history of ovarian cancer the patient will have a CT angio done to rule out any underlying pathology CBC shows mild leukocytosis the patient blood culture will be obtained and she was started azithromycin and ceftriaxone for possible pneumonia The patient lactic acid is elevated and right now with her weight she will need at least 1800 cc of fluid but because of the fact that she have a history of congestive heart failure she was provided 1 L and will assess after that for further evaluation with hydration The patient awaiting the results of the CAT scan her care will be transferred to Lab Data Labs: Lab Results 03/07/24 03/07/24 Range/Units 10:47 11:20 WBC 11.1 H (4.0-11.0) 10^3/uL RBC 3.85 L (4.20-5.40) 10^6/uL Hgb 8.7 L (12.0-16.0) g/dL Hct 28.6 L (36.0-48.0) % MCV 74.3 L (81.0-99.0) fL MCH 22.6 L (26.7-34.0) pg MCHC 30.4 (29.9-35.2) g/dL RDW 17.9 H (11.0-15.0) % Plt Count 305 (150-450) 10^3/uL MPV 8.6 L (9.5-13.5) fL Neut % (Auto) 77.0 H (43.0-75.0) % Lymph % (Auto) 11.3 L (20.5-60.0) % [place] % (Auto) 9.8 (1.7-12.0) % Eos % (Auto) 0.9 (0.9-7.0) % Baso % (Auto) 0.5 (0.2-2.0) % Neut # (Auto) 8.5 H (1.4-6.5) 10^3/uL Lymph # (Auto) 1.3 (1.2-3.8) 10^3/uL [place] # (Auto) 1.1 H (0.3-0.8) 10^3/uL Eos # (Auto) 0.1 (0.0-0.7) 10^3/uL Baso # (Auto) 0.1 (0.0-0.1) 10^3/uL Abs Immat Gran (auto) 0.05 H (0.00-0.03) 10^3/uL Imm/Tot Granulo (auto) 0.5 (0.0-0.5) % PT 13.4 H (9.0-11.6) sec INR 1.30 D-Dimer 2.43 H* (<=0.59) mg/L FEU Sodium 127 L (136-145) mmol/L Potassium 3.8 (3.5-5.1) mmol/L Chloride 89 L (98-107) mmol/L Carbon Dioxide 29.7 (21.0-32.0) mmol/L Anion Gap 12.1 BUN 22.0 H (7.0-18.0) mg/dL Creatinine 1.01 (0.55-1.02) mg/dL Est GFR ( Amer) >60 (>=60) Est GFR (Non-Af Amer) 52 L (>=60) BUN/Creatinine Ratio 21.8 Glucose 188 H (74-106) mg/dL Lactate 2.5 H* (0.4-2.0) mmol/L Calcium 9.1 (8.5-10.1) mg/dL Magnesium 1.8 (1.8-2.4) mg/dL Total Bilirubin 0.5 (0.2-1.0) mg/dL AST 22 (15-37) U/L ALT 30 (14-59) U/L Alkaline Phosphatase 78 (46-116) U/L Troponin I High Sens 25.3 (4.0-51.3) pg/mL Total Protein 7.3 (6.4-8.2) g/dL Albumin 2.6 L (3.4-5.0) g/dL Globulin 4.7 g/dL Albumin/Globulin Ratio 0.6 Stool Occult Blood Positive A Discharge Plan Discharge Patient Disposition: Still a Patient
[2024-03-07 11:11] LABS: Prothrombin Time 13.4 sec (9.0-11.6)
[2024-03-07] MEDS: 0.9 % SODIUM CHLORIDE 1,000 ML 500 ML IV (11:11)
[2024-03-07 11:12] LABS: Alanine Aminotransferase 30 U/L (14-59); Albumin Globulin Ratio 0.6; Albumin Level 2.6 g/dL (3.4-5.0); Alkaline Phosphatase 78 U/L (46-116); Anion Gap 12.1; Aspartate Amino Transferase 22 U/L (15-37); BUN Creatinine Ratio 21.8; Bilirubin Total 0.5 mg/dL (0.2-1.0); Calcium 9.1 mg/dL (8.5-10.1); Carbon Dioxide 29.7 mmol/L (21.0-32.0); Chloride 89 mmol/L (98-107); Estimated GFR (African America >60 (>=60); Estimated GFR (Non-African Ame 52 (>=60); Globulin 4.7 g/dL; Glucose 188 mg/dL (74-106); Potassium 3.8 mmol/L (3.5-5.1); Sodium 127 mmol/L (136-145); Total Protein 7.3 g/dL (6.4-8.2); Troponin I High Sensitivity 25.3 pg/mL (4.0-51.3)
[2024-03-07 11:13] LABS: Magnesium 1.8 mg/dL (1.8-2.4)
[2024-03-07] MEDS: ONDANSETRON PF 4 MG/2 ML VIAL IV (11:16)
[2024-03-07 11:21] LABS: Lactate/Lactic Acid 2.5 mmol/L (0.4-2.0)
[2024-03-07 11:24] LABS: D Dimer 2.43 mg/L FEU (<=0.59)
[2024-03-07 11:36] LABS: Internal Control Within Normal Limits; Occult Blood Positive
--- NOTE | 2024-03-07 11:45 | CT_ITS ---
[address] [address] Patient Name: DEBORA GIFFORD MRN: [id number] date: 1935 Sex: F Assigned Patient Location: ER Current Patient Location: ER Accession/Order Number: [id number] Exam Date: 03/07/2024 12:43 Report Date: 03/07/2024 13:23 At the request of: CATY GILES Procedure: CT angio chest EXAMINATION: CT angio chest HISTORY: sob elevated d-dimer COMPARISON: 02/21/2023 CT exam. Chest x-ray same day TECHNIQUE: Multi-planar CT images were created with IV contrast. Axial, Coronal, and Sagittal images. Dose reduction techniques were achieved by using automated exposure control and/or adjustment of mA and/or kV according to patient size and/or use of iterative reconstruction technique. FINDINGS: LUNGS: Calcified tracheobronchial tree. Scattered pulmonary nodules the largest 5 mm right lower lobe axial image 75, subpleural. Partial consolidation of both lower lobes PLEURA: 5.6 cm right and 1.3 cm left pleural effusions. No pneumothorax VASCULATURE: No abnormality. KIMBERLY: No mass or adenopathy. MEDIASTINUM: No mass or adenopathy. CARDIAC: Moderate to large pericardial effusion measuring up to 2.5 cm Coronary arteries: Mild atherosclerosis. Pacemaker wires. AORTA: No aneurysm or dissection. CHEST WALL: Left pacemaker BONES: No bone lesion or fracture. Extensive spondylosis LIMITED ABDOMEN: No suspicious findings. Limited images of the upper abdomen. OTHER: Negative. CT/CT angio chest IMPRESSION: Moderate pleural effusions Large pericardial effusion No central pulmonary thromboembolic disease Electronically authenticated by: JAY MISTRY Date: 03/07/2024 13:23
[2024-03-07] MEDS: CEFTRIAXONE 1,000 MG in 0.9 % SODIUM CHLORIDE 50 ML 100 MG IV (12:05)
[2024-03-07] MEDS: AZITHROMYCIN 500 MG in 0.9 % SODIUM CHLORIDE 250 ML 250 MG IV (12:58)
[2024-03-07 13:04] LABS: Lactate/Lactic Acid 3.1 mmol/L (0.4-2.0)
[2024-03-07] MEDS: ACETAMINOPHEN 325 MG TABLET 650 MG PO (13:59)
--- NOTE | 2024-03-07 14:27 | ED_ITS ---
HPI HPI - General Adult General Chief complaint: Shortness of Breath/Dyspnea Stated complaint: WEAKNESS, DRY HEAVES Time Seen by Provider: 03/07/24 10:22 Source: patient Mode of arrival: Wheelchair Limitations: no limitations History of Present Illness HPI narrative: Patient was turned over to me in signout from Dr. Pat. Pending CT angio and labs. Most likely admit. Related Data Home Medications ?Medication ?Instructions ?Recorded ?Confirmed albuterol sulfate 2.5 mg/3 mL 2.5 mg inhalation Q6H PRN 02/21/23 03/07/24 (0.083 %) solution for nebulization shortness of breath or wheezing atenolol 100 mg tablet 100 mg PO BID 02/21/23 03/07/24 latanoprost 0.005 % eye drops 1 drp ophthalmic (eye) QPM 02/21/23 03/07/24 liothyronine 5 mcg tablet 10 mcg PO DAILY 02/21/23 03/07/24 rivaroxaban 20 mg tablet (Xarelto) 20 mg PO .evening 02/21/23 03/07/24 simvastatin 10 mg tablet 10 mg PO QPM 02/21/23 03/07/24 hydralazine 100 mg tablet 100 mg PO TID 02/22/23 03/07/24 magnesium 250 mg tablet 250 mg PO .dinner 02/22/23 03/07/24 timolol maleate 0.5 % eye drops 1 drp ophthalmic (eye) Q12H 02/22/23 03/07/24 diltiazem HCl 300 mg 300 mg PO Q24H 03/07/24 03/07/24 capsule,extended release 24 hr Previous Rx's ?Medication ?Instructions ?Recorded bumetanide 1 mg tablet 1 mg PO QD 30 days #30 tabs 02/27/23 Allergies Allergy/AdvReac Type Severity Reaction Status Date / Time Sulfa (Sulfonamide Allergy Severe Unknown Verified 03/07/24 10:18 Antibiotics) channel blockers Allergy Severe Headache Uncoded 03/07/24 10:18 Opioid HPI Opioid Management Most Recent Opioid Data: Last Pain Scale 0 02/27/23 09:41 Last Pain Intensity 0 02/26/23 09:21 Review of Systems ROS Status of ROS 10 or more systems reviewed and unremark able except as noted in history and below [facility] Medical History (Updated 03/07/24 @ 14:29 by Aileen Hernandez, DO) Afib ?I48.91 - Unspecified atrial fibrillation (ICD-10) Pacemaker ?Z95.0 - Presence of cardiac pacemaker (ICD-10) Breath shortness ?R06.02 - Shortness of breath (ICD-10) Surgical History (Updated 02/24/23 @ 15:08 by Reyna Gutiérrez) H/O arthroscopic knee surgery ?Z98.890 - Other specified postprocedural states (ICD-10) Hx of cholecystectomy ?Z90.49 - Acquired absence of other specified parts of digestive tract (ICD- 10) H/O: hysterectomy ?Z90.710 - Acquired absence of both cervix and uterus (ICD-10) Social History Do you think of yourself as: straight/heterosexual Gender Identity: female Exam Narrative Exam Narrative: Physical exam per Dr. Villagomez's note Constitutional Vital Signs, click to edit/add: Last Vital Signs Temp 98.2 F 03/07/24 10:18 Pulse 95 H 03/07/24 14:05 Resp 29 H 03/07/24 14:05 BP 98/61 03/07/24 14:05 Pulse Ox 92 L 03/07/24 14:05 O2 Del Method Room Air 03/07/24 10:24 Course Vital Signs Vital signs: Vital Signs Pulse Oximetry 87 L 03/07/24 10:16 Temperature 98.2 F 03/07/24 10:18 Pulse Rate 95 H 03/07/24 14:05 Respiratory Rate 29 H 03/07/24 14:05 Blood Pressure 98/61 03/07/24 14:05 Pulse Oximetry 92 L 03/07/24 14:05 Oxygen Delivery Method Room Air 03/07/24 10:24 Medical Decision Making MDM Narrative Medical decision making narrative: Patient's CT angio does not show any acute PE however does show a large pericardial effusion and moderate pleural effusions. I spoke to Dr. Patel who states this may be better served off at [facility] given the fact that she has a large pericardial effusion and he requested that I run it by cardiology. I spoke with Dr. Brown who agrees patient will need More cardiac attention and would be better served up at [facility]. I spoke to the nurse practitioner for Dr. Kidd Who accepts admission to stepdown for further care. Patient and family are comfortable with care plan for admission and transfer Differential Diagnosis Differential Diagnosis: PE, pleural effusion, pericardial effusion, pneumonia, sepsis Medical Records Medical records reviewed: Yes I reviewed the patient's medical records Lab Data Lab results reviewed: Yes I reviewed the patient's lab results Labs: Lab Results 03/07/24 03/07/24 03/07/24 Range/Units 10:47 11:20 12:27 WBC 11.1 H (4.0-11.0) 10^3/uL RBC 3.85 L (4.20-5.40) 10^6/uL Hgb 8.7 L (12.0-16.0) g/dL Hct 28.6 L (36.0-48.0) % MCV 74.3 L (81.0-99.0) fL MCH 22.6 L (26.7-34.0) pg MCHC 30.4 (29.9-35.2) g/dL RDW 17.9 H (11.0-15.0) % Plt Count 305 (150-450) 10^3/uL MPV 8.6 L (9.5-13.5) fL Neut % (Auto) 77.0 H (43.0-75.0) % Lymph % (Auto) 11.3 L (20.5-60.0) % [place] % (Auto) 9.8 (1.7-12.0) % Eos % (Auto) 0.9 (0.9-7.0) % Baso % (Auto) 0.5 (0.2-2.0) % Neut # (Auto) 8.5 H (1.4-6.5) 10^3/uL Lymph # (Auto) 1.3 (1.2-3.8) 10^3/uL [place] # (Auto) 1.1 H (0.3-0.8) 10^3/uL Eos # (Auto) 0.1 (0.0-0.7) 10^3/uL Baso # (Auto) 0.1 (0.0-0.1) 10^3/uL Abs Immat Gran (auto) 0.05 H (0.00-0.03) 10^3/uL Imm/Tot Granulo (auto) 0.5 (0.0-0.5) % PT 13.4 H (9.0-11.6) sec INR 1.30 D-Dimer 2.43 H* (<=0.59) mg/L FEU Sodium 127 L (136-145) mmol/L Potassium 3.8 (3.5-5.1) mmol/L Chloride 89 L (98-107) mmol/L Carbon Dioxide 29.7 (21.0-32.0) mmol/L Anion Gap 12.1 BUN 22.0 H (7.0-18.0) mg/dL Creatinine 1.01 (0.55-1.02) mg/dL Est GFR ( Amer) >60 (>=60) Est GFR (Non-Af Amer) 52 L (>=60) BUN/Creatinine Ratio 21.8 Glucose 188 H (74-106) mg/dL Lactate 2.5 H* 3.1 H* (0.4-2.0) mmol/L Calcium 9.1 (8.5-10.1) mg/dL Magnesium 1.8 (1.8-2.4) mg/dL Total Bilirubin 0.5 (0.2-1.0) mg/dL AST 22 (15-37) U/L ALT 30 (14-59) U/L Alkaline Phosphatase 78 (46-116) U/L Troponin I High Sens 25.3 (4.0-51.3) pg/mL Total Protein 7.3 (6.4-8.2) g/dL Albumin 2.6 L (3.4-5.0) g/dL Globulin 4.7 g/dL Albumin/Globulin Ratio 0.6 Stool Occult Blood Positive A Imaging Data CT scan - chest: Radiologist's impression: ITS Impressions Chest X-Ray 03/07/24 10:33 IMPRESSION: 1. Cardiac enlargement with pacer noted. 2. Improvement in atelectasis and/or early infiltrate in the right midlung field. 3. The remainder of lung garrett are unremarkable. Electronically authenticated by: JAY BYRNE Date: 03/07/2024 12:13 Chest CTA 03/07/24 11:45 IMPRESSION: Moderate pleural effusions Large pericardial effusion No central pulmonary thromboembolic disease Electronically authenticated by: JAY MISTRY Date: 03/07/2024 13:23 Discharge Plan Discharge Chief Complaint: Shortness of Breath/Dyspnea Clinical Impression: PAF (paroxysmal atrial fibrillation), CHF (congestive heart failure), Pericardial effusion, acute Patient Disposition: [facility] Time of Disposition Decision: 14:29 Discharge Location: [facility] Mode of Transportation: EMS
[2024-03-07] MEDS: ACETAMINOPHEN 500 MG TABLET PO (18:16)
[2024-03-07] MEDS: PANTOPRAZOLE SODIUM 40 MG VIAL IV (19:46)
--- OUTSIDE RECORDS SUMMARY | 2024-03-07 21:42 | XMS_ITS | CCD ---
Author Organization [facility] Care Team Providers Care Canvas Repairer Name Role Phone JORGE ., DR LOYA Primary Care Unavailable LORI, CHILANGO Attending Unavailable LORI, CHILANGO Admitting Unavailable LORI, CHILANGO Consulting Unavailable HOY ., DR LOYA Primary Care Unavailable HOY ., DR LOYA Attending Unavailable HOY ., DR LOYA Admitting Unavailable HOY ., DR LOYA Primary Care Unavailable HAY ., DR MOSELEY Consulting Unavailable HAY ., DR MOSELEY Attending Unavailable HAY ., DR MOSELEY Admitting Unavailable HOY ., DR LOYA Primary Care Unavailable HOY ., DR LOYA Attending Unavailable HOY ., DR LOYA Admitting Unavailable HOY ., DR LOYA Consulting Unavailable HOY ., DR LOYA Primary Care Unavailable HOY ., DR LOYA Consulting Unavailable HOY ., DR LOYA Attending Unavailable HOY ., DR LOYA Admitting Unavailable HOY ., DR LOYA Primary Care Unavailable HOY ., DR LOYA Consulting Unavailable HOY ., DR LOYA Attending Unavailable HOY ., DR LOYA Admlonnie Unavailable ZIEBER, DR KD Siegel Consulting Unavailable HOY ., DR LOYA Primary Care Unavailable LORI, CHILANGO Attending Unavailable LORI, CHILANGO Admitting Unavailable HOY ., DR LOYA Consulting Unavailable AVONMORE, DR JAY Santillan Consulting Unavailable LORI, CHILANGO Consulting Unavailable LORI, CHILANGO Admitting Unavailable LORI, CHILANGO Consulting Unavailable ISI SANDOVALA Attending Unavailable HOY ., DR LOYA Primary Care Unavailable HOY ., DR LOYA Consulting Unavailable HOY ., DR LOYA Admlonnie Unavailable HOY ., DR LOYA Attending Unavailable HOY ., DR LOYA Primary Care Unavailable Abimbola Amador Consulting Unavailable HOY ., DR LOYA Consulting Unavailable HOY ., DR LOYA Admitting Unavailable HOY ., DR LOYA Attending Unavailable JORGE ., DR LOYA Primary Care Unavailable VINCENZO PATEL Primary Care Unavailable ZHAO BRWESTER Referring Unavailable Vincenzo Patel MD Primary Care Provider Feroz Sean SIMS Unavailable JJ HOLLINGSWORTH Attending Unavailable JJ HOLLINGSWORTH Referring Unavailable CHILANGO SANDOVAL Attending Unavailable CHILANGO SANDOVAL Attending Unavailable NADEEM ABBASI Attending Unavailable JJ HOLLINGSWORTH Referring Unavailable ZHAO BREWSTER Attending Unavailable JJ HOLLINGSWORTH Referring Unavailable Vincenzo Patel MD Primary Care Provider Jay Munoz MD Unavailable [phone] VINCENZO PATEL Referring Unavailable VINCENZO PATEL Primary Care Unavailable JAY MUNOZ Attending Unavailable ABIMBOLA CHACON Attending Unavailable SELF, SELF Referring Unavailable VINCENZO PATEL Primary Care Unavailable ABIMBOLA CHACON Attending Unavailable SELF, SELF Referring Unavailable VINCENZO PATEL Primary Care Unavailable NUBIA CAMPOVERDE Attending Unavailable VINCENZO PATEL Primary Care Unavailable NUBIA CAMPOVERDE Attending Unavailable LORIE PARK Attending Unavailable Allergies Allergy Classification Reported Allergen(s) Allergy Type Date of Onset Reaction(s) Facility (1 source) Enalapril Drug Allergy 5 [facility] Repository (4 sources) Isosorbide; Translations: [ISOSORBIDE] Drug Allergy 0 [facility] (1 source) NIFEdipine Drug Allergy 5 [facility] (2 sources) Calcium Channel Blockers Propensity to adverse reactions to drug 3 [facility] (2 sources) Enalapril Drug Allergy 3 [facility] (5 sources) Enalapril; Translations: [ENALAPRIL MALEATE] Drug Allergy 3 Unknown [facility] Repository (5 sources) Lisinopril; Translations: [LISINOPRIL] Drug Allergy 2 Other (See Comments) [facility] Repository (5 sources) Morphine; Translations: [MORPHINE] Drug Allergy 2 Other (See Comments) [facility] Repository (5 sources) NIFEdipine; Translations: [NIFEDIPINE] Drug Allergy 5 Unknown [facility] Repository (2 sources) Isosorbide Drug Allergy 0 Other (See Comments) [facility] (4 sources) Sulfonamides (Antibiotic); Translations: [SULFA (SULFONAMIDE ANTIBIOTICS)] Propensity to adverse reactions to drug 3 Unknown [facility] (4 sources) Calcium Channel Blocking Agents-Dihydropy ridines; Translations: [CALCIUM CHANNEL BLOCKING AGENTS-DIHYDROPY RIDINES] Propensity to adverse reactions to drug 3 Unknown [facility] Medications Current Medications Medication Drug Class(es) Dates Sig (Normalized) Sig (Original) albuterol 0.83 mg/ml inhalation solution (2 sources) beta2-Adrenergi c Agonist Start: 02-16-2023 take 3 mL by inhalation every six hours as needed albuterol (PROVENTIL) 2.5 mg /3 mL (0.083 %) nebulizer solution 3 mL as needed Inhalation every 6 hrs 0 02/16/2023 Active atenolol 100 mg oral tablet (4 sources) beta-Adrenergic Antwon Start: 05-04-2023 take 1 tablet by mouth twice daily atenoloL (TENORMIN) 100 MG tablet Take 1 tablet twice a day by oral route for 90 days. 0 05/04/2023 Active bumetanide 1 mg oral tablet (5 sources) Loop Diuretic Start: 05-24-2023 End: 06-28-2023 take 1 tablet by mouth once daily bumetanide (BUMEX) 1 MG tablet Take 1 (one) tablet (1 mg total) by mouth daily . 90 tablet 3 06/28/2023 Active cholecalciferol 0.25 mg oral capsule (2 sources) Vitamin D cholecalciferol (VITAMIN D3) 250 mcg (10,000 unit) capsule as directed Orally 0 Active ciclopirox 80 mg/ml topical solution (4 sources) Start: 03-24-2023 ciclopirox 8 % Solution topical solution APPLY 1 SOLUTION TOPICALLY ONCE DAILY FOR 30 DAYS 03/24/2023 Active 24 hr dilTIAZem hydrochloride 180 mg extended release oral capsule (4 sources) Calcium Channel Antwon Start: 04-26-2023 Diltiazem 180 MG Cap SR 24HR capsule XL 04/26/2023 Active take 1 capsule by mouth once celestine ly diltiazem (CARDIZEM CD) 300 MG 24 hr capsule Take 1 (one) capsule (300 mg total) by mouth daily . 0 Active famotidine 40 mg oral tablet (1 source) Histamine-2 Receptor Antagonist Start: 11-30-2023 take 1 tablet by mouth twice daily Pepcid 40 MG tablet Take 1 tablet by mouth 2 times daily. 11/30/2023 Active hydrALAZINE hydrochloride 100 mg oral tablet (4 sources) Arteriolar Vasodilator Start: 05-20-2023 take 1 tablet by mouth twice daily hydrALAZINE (APRESOLINE) 100 MG tablet Take 1 tablet twice a day by oral route for 90 days. 0 05/20/2023 Active latanoprost 0.05 mg/ml ophthalmic solution (4 sources) Prostaglandin Analog Start: 05-16-2023 latanoprost (XALATAN) 0.005 % ophthalmic solution every night at bedtime . 0 05/16/2023 Active Start: 05-16-2023 Latanoprost 0. 005 % Solution ophthalmic solution 05/16/2023 Active liothyronine sodium 0.005 mg oral tablet (4 sources) l-Triiodothyronine Start: 05-16-2023 take 2 tablets by mouth once daily liothyronine (CYTOMEL) 5 MCG tablet Take 2 (two) tablets (10 mcg total) by mouth daily . 0 05/16/2023 Active Start: 05-16-2023 Liothyronine 5 MCG tablet 05/16/2023 Active Magnesium (4 sources) Magnesium (V-R M AGNESIUM) 250 MG tablet Take 1 tablet by mouth. Active take 1 tablet by eh th once daily at lunch magnesium 250 mg Tab Take 1 (one) tablet (250 mg total) by mouth daily with lunch . 0 Active Magnesium (V-R M AGNESIUM) 250 MG tablet Take 1 tablet by mouth. 0 Active rivaroxaban 20 mg oral tablet (4 sources) Factor Xa Inhibitor Start: 04-13-2022 take 1 tablet by mouth once daily Xarelto 20 mg Tab Take 1 (one) tablet (20 mg total) by mouth daily . 0 04/13/2022 Active simvastatin 10 mg oral tablet (4 sources) HMG-CoA Reductase Inhibitor Start: 10-15-2023 take 1 tablet by mouth once daily simvastatin (ZOCOR) 10 MG tablet Take 1 (one) tablet (10 mg total) by mouth daily . 0 05/29/2023 Active 12 hr timolol 5 mg/ml ophthalmic solution (6 sources) beta-Adrenergic Antwon Start: 05-09-2023 timolol (TIMOPTIC) 0.5 % ophthalmic solution every night at bedtime . 0 05/09/2023 Active Start: 05-09-2023 Timolol maleat e 0.5 % Solution ophthalmic solution 05/09/2023 Active take 1 drop(s) into the eye(s) twice daily timoloL (BETIMOL) 0.25 % ophthalmic solution 1 (one) drop 2 (two) times a day . 0 Active Completed/Discontinued Medications Medication Drug Class(es) Dates Sig (Normalized) Sig (Original) amiodarone hydrochloride 200 mg oral tablet (3 sources) Antiarrhythmic Start: 05-06-2023 End: 06-28-2023 amiodarone (CORDARONE) 200 MG tablet Take by mouth . 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, left eye] 05-31-2023 Chronic Conduction disorders (10 sources) Encounter for checking and testing of cardiac pacemaker pulse generator [battery]; Translations: [Encounter for adjustment and management of automatic implantable cardiac defibrillator] Onset: 06-29-2022 Chronic Congestive heart failure; nonhypertensive (12 sources) Unspecified diastolic (congestive) heart failure; Translations: [Acute combined systolic (congestive) and diastolic (congestive) heart failure] Onset: 12-06-2022 Chronic Disorders of lipid metabolism (2 sources) Pure hypercholesterolemia , unspecified; Translations: [Hyperlipidemia, unspecified] Onset: 09-06-2022 Chronic Essential hypertension (7 sources) Essential (primary) hypertension; Translations: [Hypertensive disorder] Onset: 12-29-2022 Chronic Glaucoma (4 sources) Primary open angle glaucoma; Translations: [Primary open-angle glaucoma, bilateral, indeterminate stage] Onset: 12-01-2023 05-31-2023 Chronic Headache; including migraine (3 sources) Headache; including migraine; Translations: [HEADACHE UNSPECIFIED] Onset: 05-22-2022 Hypertension with complications and secondary hypertension (2 sources) Hypertensive heart disease with heart failure; Translations: [Hypertensive urgency] Onset: 05-25-2022 Chronic Menopausal disorders (4 sources) Other primary ovarian failure; Translations: [OTHER PRIMARY OVARIAN FAILURE] Onset: 08-27-2022 Chronic Other and ill-defined heart disease (2 sources) Other ill-defined heart diseases; Translations: [Other ill-defined heart diseases] Onset: 11-18-2022 Chronic Other lower respiratory disease (4 sources) Shortness of breath; Translations: [SHORTNESS OF BREATH] Onset: 11-04-2022 Episodic Thyroid disorders (5 sources) Hypothyroidism, unspecified; Translations: [HYPOTHYROIDISM UNSPECIFIED] Onset: 11-11-2022 Chronic Unclassified (3 sources) LOW BACK PAIN, UNSPECIFIED; Translations: [LOW BACK PAIN, UNSPECIFIED] Onset: 08-31-2022 Unclassified (1 source) PERSONAL HISTORY OF COVID-19; Translations: [PERSONAL HISTORY OF COVID-19] Onset: 05-25-2022 Past or Other Problems Problem Classification Problem Date Documented Date Episodic/Chronic Administrative/social admission (4 sources) Encounter for other administrative examinations; Translations: [ENCOUNTER OTH ADMIN EXAMINATIONS] Onset: 09-01-2022 Episodic Deficiency and other anemia (1 source) Anemia, unspecified; Translations: [ANEMIA UNSPECIFIED] Onset: 09-06-2022 Episodic Diabetes mellitus without complication (2 sources) Impaired fasting glucose; Translations: [Other abnormal glucose] Onset: 09-06-2022 Episodic Fluid and electrolyte disorders (3 sources) Hypokalemia; Translations: [HYPOKALEMIA] Onset: 10-07-2022 Episodic Malaise and fatigue (1 source) Other fatigue; Translations: [OTHER FATIGUE] Onset: 09-06-2022 Episodic Other aftercare (1 source) Other residential (current) drug therapy; Translations: [OTH [facility] CURRENT DRUG THERAPY] Onset: 05-25-2022 Episodic Other lower respiratory disease (2 sources) Other forms of dyspnea; Translations: [Other forms of dyspnea] Onset: 11-18-2022 Episodic Other screening for suspected conditions (not mental disorders or infectious disease) (6 sources) Encounter for screening for malignant neoplasm of rectum; Translations: [Encounter for screening for osteoporosis] Onset: 03-22-2022 Episodic Residual codes; unclassified (1 source) Acquired absence of other specified parts of digestive tract; Translations: [ACQ ABSENCE OTH PART DIGESTV TRACT] Onset: 05-25-2022 Episodic Unclassified (1 source) LOW BACK PAIN, UNSPECIFIED; Translations: [LOW BACK PAIN, UNSPECIFIED] Onset: 08-27-2022 Results Test Name Value Interpretation Reference Range Facility HVF 24-2 STANDARD - OUon HVF 24-2 STANDARD - OU See note Normal [facility] Perimetry studyon 12-01-2023 See note RADIOLOGY [facility] Radiology Study observation (narrative) [facility] ECG 12 leadon 06-28-2023 Atrial Rate [facility] P Meacham [facility] P-R Interval [facility] Q-T Interval [facility] Q-T Interval (corrected) [facility] QRS Duration [facility] QTC Calculation (Bezet) [facility] R [place]ach[place] [facility] T Meacham [facility] Ventricular Rate [facility] 36on 06-15-2023 36 Spoke with patient a nd she is back to taking the diltiazem how Mary wanted her to and she's feeling fine. BP isn't as low, but still up and down. Normal [facility] 36on 06-10-2023 36 Patient called to martha pretty aware of BP's since increase in diltiazem. Before meds it's been around 148-153 systolic. AFTER meds in the morning it's been 80/40, 92/44,104/44. She wants to know if she can skip the 30mg dose of diltiazem in the morning. Says at 10pm the other night her BP was 116/65. Please advise. She hasn't been checking it in the evenings much she said. Normal [facility] Office Visiton 06-03-2023 Follow-up visit [id number] Karen Gifford 1935 F Date Provider Department Center 06/03/2023 Catherine-NADEEM ABBASI CARD [facility] No family history on file Level of Service:49359 [place] OFFICE/OUTPATIENT ESTABLISHED MOD MDM 30-39 MIN Normal [facility] OCT OPTIC NERVE OUon 023 OCT OPTIC NERVE OU See note Normal [facility] Ophthalmic OCT panelon 05-31 See note RADIOLOGY [facility] Radiology Study observation (narrative) [facility] YAG LASER-OSon 05-31-2023 YAG LASER-OS See note Normal [facility] See note U [facility] Office Visiton 05-06-2023 Follow-up visit [id number] Karen Gifford 1935 F Provider Department Center 05/06/2023 [facility] [facility] No family history on file Level of Service:57617 [place] OFFICE/OUTPATIENT ESTABLISHED MOD MDM 30-39 MIN Normal [facility] 36on 04-27-2023 36 That is fine she can stop...has she been treated for the yeast at least ? Normal [facility] 36on 03-31-2023 36 No she does not need to Normal [facility] Telephoneon 03-28-2023 Telephone [id number] Karen Gifford 1935 Provider Department Center 03/28/2023 OR[place] HDEZ MATT [facility] No family history on file Normal [facility] Basic Metabolic Profon 03-09 Anion gap [Moles/Vol] 9 mmol/L Normal 05-01 [facility] Comment on above: Performed By: #### B MP, BNP #### [facility] [address] [place] [address] Reception Manager: Jay Peter MD BUN/CRE Ratio 10 Normal 05-04 [facility] Comment on above: Performed By: #### B MP, BNP #### [facility] [address] [place], [place] [id number] Reception Manager: Jay Peter MD Calcium [Mass/Vol] 9.0 mg/dL Normal 8.6-10.4 [facility] Comment on above: Performed By: #### B MP, BNP #### [facility] [address] [place] [id number] Reception Manager: Jay Peter MD Chloride [Moles/Vol] 96 mmol/L Low 98-107 [facility] Comment on above: Performed By: #### B MP, BNP #### [facility] [address] [place] [id number] Reception Manager: Jay Peter MD CO2 [Moles/Vol] 28 mmol/L Normal 20-31 [facility] Comment on above: Performed By: #### B MP, BNP #### [facility] [address] [place], [place] [id number] Reception Manager: Jay Peter MD Creatinine [Mass/Vol] 0.9 mg/dL Normal 0.5-0.9 [facility] Comment on above: Performed By: #### B KATIUSKA, BNP #### [facility] [address] [place] [address] Reception Manager: Jay Peter MD GFR/1.73 sq M.predicted among non-blacks MDRD (S/P/Bld) [Vol rate/Area] mL/min/{1.73_m2} Normal >60 [facility] Comment on above: Result Comment: These results are not intended for use in patients <18 years of age. eGFR results are calculated without a race factor using the 2020 CKD-EPI equation. Careful clinical correlation is recommended, particularly when comparing to results calculated using previous equations. The CKD-EPI equation is less accurate in patients with extremes of muscle mass, extra-renal metabolism of creatine, excessive creatine ingestion, or following therapy that affects renal tubular secretion. Performed By: #### B MP, BNP #### [facility] [address] [place] [address] Reception Manager: Jay Peter MD Glucose [Mass/Vol] 162 mg/dL High 70-99 [facility] Comment on above: Performed By: #### B MP, BNP #### [facility] [address] [place] [address] Reception Manager: Jay Peter MD Potassium [Moles/Vol] 4.3 mmol/L Normal 3.7-5.3 [facility] Comment on above: Performed By: #### B MP, BNP #### [facility] [address] [place] [address] Reception Manager: Jay Peter MD Sodium [Moles/Vol] 133 mmol/L Low 135-144 [facility] Comment on above: Performed By: #### B MP, BNP #### [facility] [address] [place] [address] Reception Manager: Jay Peter MD Urea nitrogen [Mass/Vol] 9 mg/dL Normal 8-23 [facility] Comment on above: Performed By: #### B MP, BNP #### [facility] [address] [place] [address] Reception Manager: Jay Peter MD Brain Natri. Peptideon 03-09 Natriuretic peptide B (Bld) [Mass/Vol] 1518 pg/mL High <300 [facility] Comment on above: Result Comment: An age-independent cutoff point of 300 pg/ml has a 98% negative predictive value excluding acute heart failure. Performed By: #### B MP, BNP #### [facility] [address] [place] [address] Reception Manager: Jay Peter MD Office Visiton 03-09-2023 Follow-up visit [id number] JuleeKaren F 1935 F Date Provider Department Center 03/09/2023 Janice-ZHAO BREWSTER [facility] No family history on file Level of Service:13076 [place] OFFICE/OUTPATIENT ESTABLISHED MOD MDM 30-39 MIN Normal [facility] 36on 02-07-2023 36 Please let her know her PFTs were abnormal. Suggest she follow-up with her PCP or we can refer her to pulmonary for further evaluation. Her device check showed some intermittent episodes of a.fib, but no fast rhythms. We can have her see Dr. Hollingsworth for a.fib management. Thanks! Normal [facility] Telephoneon 02-07-2023 Telephone [id number] Karen Gifford 1935 F Date Provider Department Center 02/07/[address] No family history on file Normal [facility] Office Visiton 12-29-2022 Follow-up visit [id number] Karen Gifford 1935 Date Provider Department Center 12/29/2022 CHILANGO ZAMORA MATT [facility] No family history on file Level of Service:78957 [place] OFFICE/OUTPATIENT ESTABLISHED MOD MDM 30-39 MIN Reason for Visit and Comments: Follow-up [488427] - 1 mo follow up Normal [facility] PROF CHEM 8 (BAS METB)on Anion gap [Moles/Vol] 10.1 mmol/L Normal [facility] Comment on above: Performed By: #### L IPID, T7, CMP, TSH #### [facility] [address] [address] [address] Jorge Glaser Calcium [Mass/Vol] 9.1 mg/dL Normal 8.5-10.1 [facility] Comment on above: Performed By: #### L IPID, T7, CMP, TSH #### [facility] [address] [address] [address] Jorge Glaser Chloride [Moles/Vol] 98 mmol/L Normal 98-107 [facility] Comment on above: Performed By: #### L IPID, T7, CMP, TSH #### [facility] [address] [address] [address] Jorge Glaser CO2 [Moles/Vol] 32.1 mmol/L Critically high 21.0-32.0 [facility] Comment on above: Performed By: #### L IPID, T7, CMP, TSH #### [facility] [address] [place] [address] Dr. Jorge Glaser Creatinine [Mass/Vol] 0.93 mg/dL Normal 0.55-1.02 [facility] Comment on above: Performed By: #### L IPID, T7, CMP, TSH #### [facility] [address] [address] [address] Jorge Glaser EGFR-AF SUDANESE >60 Normal >=60 [facility] Comment on above: Performed By: #### L IPID, T7, CMP, TSH #### [facility] [address] [place] [address] Dr. Jorge Glaser EGFR-NON AF SUDANESE 57 mL/min/1.73m2 Critically low >=60 [facility] Comment on above: Performed By: #### L IPID, T7, CMP, TSH #### [facility] [address] [place] [address] Dr. Jorge Glaser Glucose [Mass/Vol] 103 mg/dL Normal 74-106 [facility] Comment on above: Performed By: #### L IPID, T7, CMP, TSH #### [facility] [address] [place] [address] Dr. Jorge Glaser Potassium [Moles/Vol] 4.2 mmol/L Normal 3.5-5.1 [facility] Comment on above: Performed By: #### L IPID, T7, CMP, TSH #### [facility] [address] [place] [address] Dr. Jorge Glaser Sodium [Moles/Vol] 136 mmol/L Normal 136-145 [facility] Comment on above: Performed By: #### L IPID, T7, CMP, TSH #### [facility] [address] [place] [address] Dr. Jorge Glaser Urea nitrogen [Mass/Vol] 16.0 mg/dL Normal 7.0-18.0 [facility] Comment on above: Performed By: #### L IPID, T7, CMP, TSH #### [facility] [address] [place] [address] Dr. Jorge Glaser Urea nitrogen/Creatinine [Mass ratio] 17.2 mg/mg Normal [facility] Comment on above: Performed By: #### L IPID, T7, CMP, TSH #### [facility] [address] [place] [address] Dr. Jorge Glaser Orders Onlyon 12-10-2022 Orders Only [id number] [facility] 1935 [facility] 12/10/2022 [place] HDEZ [facility] No family history on file Normal [facility] Telephoneon 12-09-2022 Telephone [id number] [facility] 1935 [facility] Date Provider Department Center 12/09/2022 CHILANGO ZAMORA [facility] CARD [facility] St[facility] No family history on file Normal [facility] BNPon 12-01-2022 Natriuretic peptide B (Bld) [Mass/Vol] 379.0 pg/mL Normal <=1,800.0 [facility] Comment on above: Performed By: #### L IPID, T7, CMP, TSH #### [facility] [address] [place] [address] Dr. Jorge Glaser CBC AUTO DIFFon 12-01-2022 BASO # 0.1 103/ul Normal 0.0-0.1 [facility] Comment on above: Performed By: #### C BC #### [facility] [address] [place] [address] Dr. Jorge Glaser Basophils/100 WBC (Bld) 1.3 % Normal 0.2-2.0 [facility] Comment on above: Performed By: #### C BC #### [facility] [address] [place] [address] Dr. Jorge Glaser EO # 0.2 103/ul Normal 0.0-0.7 [facility] Comment on above: Performed By: #### C BC #### [facility] [address] [place] [address] Dr. Jorge Glaser Eosinophils/100 WBC (Bld) 3.1 % Normal 0.9-7.0 [facility] Comment on above: Performed By: #### C BC #### [facility] [address] [place] [address] Dr. Jorge lGaser Erythrocyte distribution width (RBC) [Ratio] 14.4 % Normal 11.0-15.0 [facility] Comment on above: Performed By: #### C BC #### [facility] [address] [place] [address] Dr. Jorge Glaser Hematocrit (Bld) [Volume fraction] 36.1 % Normal 36.0-48.0 [facility] Comment on above: Performed By: #### C BC #### [facility] [address] [place] [address] Dr. Jorge Glaser Hemoglobin (Bld) [Mass/Vol] 11.5 g/dL Critically low 12.0-16.0 [facility] Comment on above: Performed By: #### C BC #### [facility] [address] [place] [address] Dr. Jorge Glaser IG # 0.05 10e3/ul Critically high 0.00-0.[address] [facility] Comment on above: Performed By: #### C BC #### [facility] [address] [place] [address] Dr. Jorge Glaser IG % 0.6 % Critically high 0.0-0.5 [facility] Comment on above: Performed By: #### C BC #### [facility] [address] [place] [address] Dr. Jorge Glaser LYMPH # 1.7 103/ul Normal 1.2-3.8 [facility] Comment on above: Performed By: #### C BC #### [facility] [address] [place] [address] Dr. Jorge Glaser Lymphocytes/100 WBC (Bld) 21.2 % Normal 20.5-60.0 [facility] Comment on above: Performed By: #### C BC #### [facility] [address] [place] [address] Dr. Jorge Glaser MANUAL DIFF REQ NO Normal [facility] Comment on above: Performed By: #### C BC #### [facility] [address] [place] [address] Dr. Jorge Glaser MCH (RBC) [Entitic mass] 27.3 pg Normal 26.7-34.0 [facility] Comment on above: Performed By: #### C BC #### [facility] [address] [place] [address] Dr. Jorge Glaser MCHC (RBC) [Mass/Vol] 31.9 g/dL Normal 29.9-35.2 [facility] Comment on above: Performed By: #### C BC #### [facility] [address] [place] [address] Dr. Jorge Glaser MCV (RBC) [Entitic vol] 85.5 fL Normal 81.0-99.0 [facility] Comment on above: Performed By: #### C BC #### [facility] [address] [place] [address] Dr. Jroge Glaser MONO # 0.8 103/ul Normal 0.3-0.8 [facility] Comment on above: Performed By: #### C BC #### [facility] [address] [place] [address] Dr. Jorge Glaser Monocytes/100 WBC (Bld) 10.5 % Normal 1.7-12.0 [facility] Comment on above: Performed By: #### C BC #### [facility] [address] [place] [address] Dr. Jorge Glaser NEUT # 4.9 103/ul Normal 1.4-6.5 [facility] Comment on above: Performed By: #### C BC #### [facility] [address] [place] [address] Dr. Jorge Glaser Neutrophils/100 WBC (Bld) 63.3 % Normal 43.0-75.0 [facility] Comment on above: Performed By: #### C BC #### [facility] [address] [place] [address] Dr. Jorge Glaesr Platelet mean volume (Bld) [Entitic vol] 8.7 fL Critically low 9.5-13.5 [facility] Comment on above: Performed By: #### C BC #### [facility] [address] [address] [address] Jorge Glaser PLT 226 103/ul Normal 150-450 [facility] Comment on above: Performed By: #### C BC #### [facility] [address] [address] [address] Jorge Glaser RBC 4.22 106/ul Normal 4.20-5.40 [facility] Comment on above: Performed By: #### C BC #### [facility] [address] [address] [address] Jorge Glaser WBC 7.8 103/ul Normal 4.0-11.0 [facility] Comment on above: Performed By: #### C BC #### [facility] [address] [place] [address] Dr. Jorge Glaser FREE THYROXINE INDEX T7on FTI 2.17 Normal 1.30-4.50 [facility] Comment on above: Performed By: #### L IPID, T7, CMP, TSH #### [facility] [address] [place] [address] Dr. Jorge Glaser T3U 31.0 % Normal 30.0-39.0 [facility] Comment on above: Performed By: #### L IPID, T7, CMP, TSH #### [facility] [address] [place] [address] Dr. Jorge Glaser T4 [Mass/Vol] 7.00 ug/dL Normal 4.80-13.90 [facility] Comment on above: Performed By: #### L IPID, T7, CMP, TSH #### [facility] [address] [place] [address] Dr. Jorge Glaser PROF 14(COMP METB)on 023 Albumin [Mass/Vol] 3.5 g/dL Normal 3.4-5.0 [facility] Comment on above: Performed By: #### L IPID, T7, CMP, TSH #### [facility] [address] [address] [address] Jorge Glaser Albumin/Globulin [Mass ratio] 0.9 {ratio} Normal [facility] Comment on above: Performed By: #### L IPID, T7, CMP, TSH #### [facility] [address] [address] [address] Jorge Glaser ALP [Catalytic activity/Vol] 56 U/L Normal 46-116 [facility] Comment on above: Performed By: #### L IPID, T7, CMP, TSH #### [facility] [address] [address] [address] Jorge Glaser ALT [Catalytic activity/Vol] 28 U/L Normal 14-59 [facility] Comment on above: Performed By: #### L IPID, T7, CMP, TSH #### [facility] [address] [address] [address] Jorge Glaser Anion gap [Moles/Vol] 10.2 mmol/L Normal [facility] Comment on above: Performed By: #### L IPID, T7, CMP, TSH #### [facility] [address] [address] [address] Jorge Glaser AST [Catalytic activity/Vol] 20 U/L Normal 15-37 [facility] Comment on above: Performed By: #### L IPID, T7, CMP, TSH #### [facility] [address] [address] [address] Jorge Glaser Bilirubin [Mass/Vol] 0.4 mg/dL Normal 0.2-1.0 [facility] Comment on above: Performed By: #### L IPID, T7, CMP, TSH #### [facility] [address] [address] [address] Jorge Glaser Calcium [Mass/Vol] 9.8 mg/dL Normal 8.5-10.1 [facility] Comment on above: Performed By: #### L IPID, T7, CMP, TSH #### [facility] [address] [address] [address] Jorge Glaser Chloride [Moles/Vol] 93 mmol/L Critically low 98-107 [facility] Comment on above: Performed By: #### L IPID, T7, CMP, TSH #### [facility] [address] [address] [address] Jorge Glaser CO2 [Moles/Vol] 34.5 mmol/L Critically high 21.0-32.0 [facility] Comment on above: Performed By: #### L IPID, T7, CMP, TSH #### [facility] [address] [place] [address] Dr. Jorge Glaser Creatinine [Mass/Vol] 1.01 mg/dL Normal 0.55-1.02 [facility] Comment on above: Performed By: #### L IPID, T7, CMP, TSH #### [facility] [address] [place] [address] Dr. Jorge Glaser EGFR-AF SUDANESE >60 Normal >=60 [facility] Comment on above: Performed By: #### L IPID, T7, CMP, TSH #### [facility] [address] [place] [address] Dr. Jorge Glaser EGFR-NON AF SUDANESE 52 mL/min/1.73m2 Critically low >=60 [facility] Comment on above: Performed By: #### L IPID, T7, CMP, TSH #### [facility] [address] [place] [address] Dr. Jorge Glaser Globulin (S) [Mass/Vol] 4.0 g/dL Normal [facility] Comment on above: Performed By: #### L IPID, T7, CMP, TSH #### [facility] [address] [place] [address] Dr. Jorge Glaser Glucose [Mass/Vol] 103 mg/dL Normal 74-106 [facility] Comment on above: Performed By: #### L IPID, T7, CMP, TSH #### [facility] [address] [place] [address] Dr. Jorge Glaser Potassium [Moles/Vol] 3.7 mmol/L Normal 3.5-5.1 [facility] Comment on above: Performed By: #### L IPID, T7, CMP, TSH #### [facility] [address] [address] [address] Jorge Glaser Protein [Mass/Vol] 7.5 g/dL Normal 6.4-8.2 [facility] Comment on above: Performed By: #### L IPID, T7, CMP, TSH #### [facility] [address] [address] [address] Jorge Glaser Sodium [Moles/Vol] 134 mmol/L Critically low 136-145 [facility] Comment on above: Performed By: #### L IPID, T7, CMP, TSH #### [facility] [address] [place] [address] Dr. Jorge Glaser Urea nitrogen [Mass/Vol] 17.0 mg/dL Normal 7.0-18.0 [facility] Comment on above: Performed By: #### L IPID, T7, CMP, TSH #### [facility] [address] [place] [address] Dr. Jorge Glaser Urea nitrogen/Creatinine [Mass ratio] 16.8 mg/mg Normal [facility] Comment on above: Performed By: #### L IPID, T7, CMP, TSH #### [facility] [address] [place] [address] Dr. Jorge Glaser TSHon 12-01-2022 TSH 4.022 uIU/mL Critically high 0.358-3.740 [facility] Comment on above: Performed By: #### L IPID, T7, CMP, TSH #### [facility] [address] [place] [address] Dr. Jorge Glaser XR CHEST 2 Von 12-01-2022 XR CHEST 2 V EXAM: XR CHEST 2 V HISTORY: Palpitations COMPARISON: 06/09/20 TECHNIQUE: PA and lateral views of the chest. FINDINGS: The cardiomediastinal silhouette is normal. Stable left-sided cardiac pacemaker. No focal consolidation is identified. There is no pneumothorax. No pleural effusion is noted. The osseous structures are intact. IMPRESSION: No acute cardiopulmonary process. Electronically authenticated by: ABIMBOLA AMADOR Date: 2022-12-01 13:06 Normal [facility] 36on 11-22-2022 36 What is her BP? We can have her try half a tablet instead. If she does not want to do half a tablet then recommend replacing spironolactone with lasix 40mg daily and resuming her potassium to 10mEq twice daily. Follow-up BMP in 1 week (she should already have order). Normal [facility] Office Visiton 11-18-2022 Follow-up visit [id number] Karen Gifford 1935 F Date Provider Department Center 11/18/2022 CHILANGO ZAMORA [facility] No family history on file Level of Service:51220 [place] OFFICE/OUTPATIENT ESTABLISHED MOD MDM 30-39 MIN Reason for Visit and Comments: Follow-up [635940] - Pt is here F/U for Echo and labs [facility] FREE T3on 11-11-2022 FREE T3 2.51 pg/mlL Normal 2.18-3.98 [facility] Comment on above: Performed By: #### L IPID, T7, CMP, TSH #### [facility] [address] [place] [address] Dr. Jorge Glaser T4on 11-11-2022 T4 [Mass/Vol] 6.00 ug/dL Normal 4.80-13.90 [facility] Comment on above: Performed By: #### L IPID, T7, CMP, TSH #### [facility] [address] [address] [address] Jorge Glaser TSHon 11-11-2022 TSH 4.223 uIU/mL Critically high 0.358-3.740 [facility] Comment on above: Performed By: #### L IPID, T7, CMP, TSH #### [facility] [address] [address] [address] Jorge Glaser BNPon 11-04-2022 Natriuretic peptide B (Bld) [Mass/Vol] 479.0 pg/mL Normal <=1,800.0 [facility] Comment on above: Performed By: #### L IPID, T7, CMP, TSH #### [facility] [address] [place] [address] Dr. Jorge Glaser CBC AUTO DIFFon 11-04-2022 BASO # 0.1 103/ul Normal 0.0-0.1 [facility] Comment on above: Performed By: #### C BC #### [facility] [address] [address] [address] Jorge Glaser Basophils/100 WBC (Bld) 0.8 % Normal 0.2-2.0 [facility] Comment on above: Performed By: #### C BC #### [facility] [address] [address] [address] Jorge Glaser EO # 0.1 103/ul Normal 0.0-0.7 [facility] Comment on above: Performed By: #### C BC #### [facility] [address] [place] [address] Dr. Jorge Glaser Eosinophils/100 WBC (Bld) 0.8 % Critically low 0.9-7.0 [facility] Comment on above: Performed By: #### C BC #### [facility] [address] [place] [address] Dr. Jorge Glaser Erythrocyte distribution width (RBC) [Ratio] 13.9 % Normal 11.0-15.0 [facility] Comment on above: Performed By: #### C BC #### [facility] [address] [place] [address] Dr. Jorge Glaser Hematocrit (Bld) [Volume fraction] 37.7 % Normal 36.0-48.0 [facility] Comment on above: Performed By: #### C BC #### [facility] [address] [place] [address] Dr. Jorge Glaser Hemoglobin (Bld) [Mass/Vol] 12.2 g/dL Normal 12.0-16.0 [facility] Comment on above: Performed By: #### C BC #### [facility] [address] [place] [address] Dr. Jorge Glaser IG # 0.14 10e3/ul Critically high 0.00-0.[address] [facility] Comment on above: Performed By: #### C BC #### [facility] [address] [place] [address] Dr. Jorge Glaser IG % 1.1 % Critically high 0.0-0.5 [facility] Comment on above: Performed By: #### C BC #### [facility] [address] [place] [address] Dr. Jorge Glaser LYMPH # 1.6 103/ul Normal 1.2-3.8 [facility] Comment on above: Performed By: #### C BC #### [facility] [address] [place] [address] Dr. Jorge Glaser Lymphocytes/100 WBC (Bld) 11.8 % Critically low 20.5-60.0 [facility] Comment on above: Performed By: #### C BC #### [facility] [address] [place] [address] Dr. Jorge Glaser MANUAL DIFF REQ NO Normal [facility] Comment on above: Performed By: #### C BC #### [facility] [address] [place] [address] Dr. Jorge Glaser MCH (RBC) [Entitic mass] 28.2 pg Normal 26.7-34.0 [facility] Comment on above: Performed By: #### C BC #### [facility] [address] [place] [address] Dr. Jorge Glaser MCHC (RBC) [Mass/Vol] 32.4 g/dL Normal 29.9-35.2 [facility] Comment on above: Performed By: #### C BC #### [facility] [address] [place] [address] Dr. Jorge Glaser MCV (RBC) [Entitic vol] 87.3 fL Normal 81.0-99.0 [facility] Comment on above: Performed By: #### C BC #### [facility] [address] [place] [address] Dr. Jorge Glaser MONO # 0.8 103/ul Normal 0.3-0.8 [facility] Comment on above: Performed By: #### C BC #### [facility] [address] [place] [address] Dr. Jorge Glaser Monocytes/100 WBC (Bld) 5.9 % Normal 1.7-12.0 [facility] Comment on above: Performed By: #### C BC #### [facility] [address] [place] [address] Dr. Jorge Glaser NEUT # 10.4 103/ul Critically high 1.4-6.5 [facility] Comment on above: Performed By: #### C BC #### [facility] [address] [place] [address] Dr. Jorge Glaser Neutrophils/100 WBC (Bld) 79.6 % Critically high 43.0-75.0 [facility] Comment on above: Performed By: #### C BC #### [facility] [address] [place] [address] Dr. Jorge Glaser Platelet mean volume (Bld) [Entitic vol] 9.0 fL Critically low 9.5-13.5 [facility] Comment on above: Performed By: #### C BC #### [facility] [address] [place] [address] Dr. Jorge Glaser PLT 216 103/ul Normal 150-450 [facility] Comment on above: Performed By: #### C BC #### [facility] [address] [place] [address] Dr. Jorge Glaser RBC 4.32 106/ul Normal 4.20-5.40 [facility] Comment on above: Performed By: #### C BC #### [facility] [address] [place] [address] Dr. Jorge Glaser WBC 13.1 103/ul Critically high 4.0-11.0 [facility] Comment on above: Performed By: #### C BC #### [facility] [address] [place] [address] Dr. Jorge Glaser ECHOCARDIO M/2D COMPLETEon 0 11-04-2022 ECHOCARDIO M/2D COMPLETE Patient: KAREN GIFFORD Exam Date: 11/04/2022 : 1935 Gender:F Ordering : [facility]ILAN[facility]AL [facility] Admission #: [id number] Family : Order #: [id number] CLICK HERE TO VIEW EXAM ECHOCARDIOGRAM REPORT PROCEDURE: CARDIO PULMONARY ECHOCARDIO M/2D COMP INDICATIONS: Shortness of breath COMPARISON: None. DESCRIPTION: COMPLETE ECHOCARDIOGRAM Real-time transthoracic echocardiography with 2D, M-mode, spectral and color flow Doppler performed. QUALITY: Technical quality was good. LEFT VENTRICLE: Normal chamber size. Mild concentric left ventricular hypertrophy. Global left ventricular systolic function is normal. LV EF: Visual estimation of left ventricular ejection fraction is 65% DIASTOLIC: Grade II diastolic dysfunction. ATRIAL SEPTUM: LEFT ATRIUM: Severe dilatation. RIGHT ATRIUM: Mild dilatation. Pacer wire present. RIGHT VENTRICLE:Mild dilatation. Normal right ventricular systolic function. Pacer wire present. TRICUSPID VALVE: Normal mobility and thickness. No stenosis with mild to moderate regurgitation. Moderate pulmonary hypertension. RVSP 45 mmHg MITRAL VALVE: Normal mobility and thickness. No mitral valve prolapse. No evidence of mitral valve stenosis. There is no mitral annular calcification. Mild mitral regurgitation. AORTIC VALVE: Normal trileaflet appearance. Mildly calcified aortic valve. Normal leaflet mobility. No evidence of aortic valve stenosis. Mild to moderate aortic regurgitation. AORTIC ROOT: Normal diameter and appearance. PULMONIC VALVE: Normal thickness and mobility. No stenosis. Trivial regurgitation. PERICARDIUM: No evidence of pericardial effusion. IVC: Collapses with inspirations. Normal size. PLEURA: CONCLUSION: 1. Mild concentric left ventricular hypertrophy. Normal left ventricular systolic function. LVEF is 65%. 2. The right ventricle is mildly dilated with normal systolic function. 3. Grade 2 diastolic dysfunction. 4. Mild to moderate tricuspid and aortic regurgitation. 5. Mild mitral regurgitation. 6. Moderately elevated right-sided pressures. 7. No pericardial effusion. Adult Echocardiography Procedure Report Left Ventricle LVEDD (3.7 - 5.6 cm): 4.39 cm LVESD (2.2 - 4.0 cm): 2.77 cm LVIVS thickness (0.6 - 1.2 cm): 1.24 cm LVPW thickness (0.5 - 1.0 cm): 1.15 cm e': 0.11 m/s E - e': 5.62 LVOT Max Gradient: 4.99 mm[Hg] Peak Velocity (LVOT): 1.12 m/s Mean Velocity (LVOT): 0.78 m/s LVOT Diameter 1.93 cm Left Ventricular Ejection Fraction: 65 % Left Atrium LA Volume Index (2D A2C): 110.77 ml, 110.77 ml Left Atrium Systolic Dimension: 4.15 cm Mitral Valve MV E to A Ratio: 1.21 Mitral Valve A-Wave Peak Velocity: 0.50 m/s Mitral Valve E-Wave Peak Velocity: 0.61 m/s Right Ventricle RV Internal Diastolic Dimension: 3.83 cm Aorta AO Root Diam: 2.64 cm Ascending Ao Diam: 3.04 cm Aortic Valve AoV Area (Peak Rivas): 1.99 cm2, 1.99 cm2 AoV Area (VTI): 2.20 cm2, 2.20 cm2 Deceleration [place]: 2.65 m/s2 Pressure Half-Time: 481.67 ms Peak Velocity(Antegrade Flow): 1.64 m/s Peak Gradient(Antegrade Flow): 10.70 mm[Hg] Mean Velocity(Antegrade Flow): 1.02 m/s Mean Gradient(Antegrade Flow): 4.90 mm[Hg] Velocity Time Integral: 35.40 cm Tricuspid Valve Peak Velocity (Regurgitant Flow): 2.41 m/s, 2.51 m/s, 3.16 m/s Peak Velocity: 0.43 m/s Pulmonic Valve Mean Gradient: 2.39 mm[Hg], 2.62 mm[Hg] Mean Velocity: 0.73 m/s, 0.76 m/s Peak Velocity: 1.05 m/s, 1.05 m/s, 0.98 m/s Peak Gradient: 4.40 mm[Hg], 4.40 mm[Hg], 3.82 mm[Hg] Right Atrium Right Atrium Systolic Pressure: 58.53 ml, 58.53 ml Dictated by: Ej Lopez M.D. on 11/04/2022 at 22:03 Approved by: Ej Lopez M.D. on 11/04/2022 at 22:09 Normal [facility] PROF CHEM 8 (BAS METB)on Anion gap [Moles/Vol] 10.6 mmol/L Normal [facility] Comment on above: Performed By: #### L IPID, T7, CMP, TSH #### [facility] [address] [place] [address] Dr. Jorge Glaser Calcium [Mass/Vol] 9.5 mg/dL Normal 8.5-10.1 [facility] Comment on above: Performed By: #### L IPID, T7, CMP, TSH #### [facility] [address] [place] [address] Dr. Jorge Glaser Chloride [Moles/Vol] 97 mmol/L Critically low 98-107 [facility] Comment on above: Performed By: #### L IPID, T7, CMP, TSH #### [facility] [address] [place] [address] Dr. Jorge Glaser CO2 [Moles/Vol] 32.3 mmol/L Critically high 21.0-32.0 [facility] Comment on above: Performed By: #### L IPID, T7, CMP, TSH #### [facility] [address] [place] [address] Dr. Jorge Glaser Creatinine [Mass/Vol] 0.79 mg/dL Normal 0.55-1.02 [facility] Comment on above: Performed By: #### L IPID, T7, CMP, TSH #### [facility] [address] [place] [address] Dr. Jorge Glaser EGFR-AF SUDANESE >60 Normal >=60 [facility] Comment on above: Performed By: #### L IPID, T7, CMP, TSH #### [facility] [address] [place] [address] Dr. Jorge Glaser EGFR-NON AF SUDANESE >60 Normal >=60 [facility] Comment on above: Performed By: #### L IPID, T7, CMP, TSH #### [facility] [address] [place] [address] Dr. Jorge Glaser Glucose [Mass/Vol] 161 mg/dL Critically high 74-106 [facility] Comment on above: Performed By: #### L IPID, T7, CMP, TSH #### [facility] [address] [place] [address] Dr. Jorge Glaser Potassium [Moles/Vol] 3.9 mmol/L Normal 3.5-5.1 [facility] Comment on above: Performed By: #### L IPID, T7, CMP, TSH #### [facility] [address] [address] [address] Jorge Glaser Sodium [Moles/Vol] 136 mmol/L Normal 136-145 [facility] Comment on above: Performed By: #### L IPID, T7, CMP, TSH #### [facility] [address] [address] [address] Jorge Glaser Urea nitrogen [Mass/Vol] 20.0 mg/dL Critically high 7.0-18.0 [facility] Comment on above: Performed By: #### L IPID, T7, CMP, TSH #### [facility] [address] [address] [address] Jorge Glaser Urea nitrogen/Creatinine [Mass ratio] 25.3 mg/mg Normal [facility] Comment on above: Performed By: #### L IPID, T7, CMP, TSH #### [facility] [address] [address] [address] Jorge Glaser 36on 10-22-2022 36 Please order CBC, BM P, BNP, and ECHO and schedule for follow-up appt after ECHO with me or her attending. Thanks [facility] Telephoneon 10-22-2022 Telephone [id number] JuleeKaren Kimmy 1935 F Date Provider Department Center 10/22/2022 [place] HDE[place] [facility] No family history on file [facility] FREE T3on 10-04-2022 FREE T3 2.15 pg/mlL Critically low 2.18-3.98 [facility] Comment on above: Performed By: #### L IPID, T7, CMP, TSH #### [facility] [address] [address] [address] Jorge Glaser POTASSIUMon 10-04-2022 Potassium [Moles/Vol] 3.5 mmol/L Normal 3.5-5.1 [facility] Comment on above: Performed By: #### L IPID, T7, CMP, TSH #### [facility] [address] [address] [address] Jorge Glaser T4on 10-04-2022 T4 [Mass/Vol] 6.50 ug/dL Normal 4.80-13.90 [facility] Comment on above: Performed By: #### T 4, TSH, FT3, K #### [facility] [address] [address] [address] Jorge Glaser TSHon 10-04-2022 TSH 4.603 uIU/mL Critically high 0.358-3.740 [facility] Comment on above: Performed By: #### L IPID, T7, CMP, TSH #### [facility] [address] [place] [address] Dr. Jroge Glaser OCC BLD IMMUNO SCREENon 08-15 OCCULT BLOOD Negative Normal NEGATIVE [facility] Comment on above: Performed By: #### O BSCRN #### [facility] [address] [place] [address] Dr. Jorge Glaser CBC AUTO DIFFon 09-01-2022 BASO # 0.1 103/ul Normal 0.0-0.1 [facility] Comment on above: Performed By: #### L IPID, T7, CMP, TSH #### [facility] [address] [address] [address] Jorge Glaser Basophils/100 WBC (Bld) 1.0 % Normal 0.2-2.0 [facility] Comment on above: Performed By: #### L IPID, T7, CMP, TSH #### [facility] [address] [place] [address] Dr. Jorge Glaser EO # 0.3 103/ul Normal 0.0-0.7 [facility] Comment on above: Performed By: #### L IPID, T7, CMP, TSH #### [facility] [address] [place] [address] Dr. Jorge Glaser Eosinophils/100 WBC (Bld) 3.8 % Normal 0.9-7.0 [facility] Comment on above: Performed By: #### L IPID, T7, CMP, TSH #### [facility] [address] [place] [address] Dr. Jorge Glaser Erythrocyte distribution width (RBC) [Ratio] 13.4 % Normal 11.0-15.0 [facility] Comment on above: Performed By: #### L IPID, T7, CMP, TSH #### [facility] [address] [place] [address] Dr. Jorge Glaser Hematocrit (Bld) [Volume fraction] 39.0 % Normal 36.0-48.0 [facility] Comment on above: Performed By: #### L IPID, T7, CMP, TSH #### [facility] [address] [place] [address] Dr. Jorge Glaser Hemoglobin (Bld) [Mass/Vol] 12.8 g/dL Normal 12.0-16.0 [facility] Comment on above: Performed By: #### L IPID, T7, CMP, TSH #### [facility] [address] [place] [address] Dr. Jorge Glaser IG # 0.10 10e3/ul Critically high 0.00-0.[address] [facility] Comment on above: Performed By: #### L IPID, T7, CMP, TSH #### [facility] [address] [place] [address] Dr. Jorge Glaser IG % 1.1 % Critically high 0.0-0.5 [facility] Comment on above: Performed By: #### L IPID, T7, CMP, TSH #### [facility] [address] [place] [address] Dr. Jorge Glaser LYMPH # 2.3 103/ul Normal 1.2-3.8 [facility] Comment on above: Performed By: #### L IPID, T7, CMP, TSH #### [facility] [address] [place] [address] Dr. Jorge Glaser Lymphocytes/100 WBC (Bld) 26.9 % Normal 20.5-60.0 [facility] Comment on above: Performed By: #### L IPID, T7, CMP, TSH #### [facility] [address] [place] [address] Dr. Jorge Glaser MANUAL DIFF REQ NO Normal [facility] Comment on above: Performed By: #### L IPID, T7, CMP, TSH #### [facility] [address] [place] [address] Dr. Jorge Glaser MCH (RBC) [Entitic mass] 29.4 pg Normal 26.7-34.0 [facility] Comment on above: Performed By: #### L IPID, T7, CMP, TSH #### [facility] [address] [place] [address] Dr. Jorge Glaser MCHC (RBC) [Mass/Vol] 32.8 g/dL Normal 29.9-35.2 [facility] Comment on above: Performed By: #### L IPID, T7, CMP, TSH #### [facility] [address] [place] [address] Dr. Jorge Glaser MCV (RBC) [Entitic vol] 89.7 fL Normal 81.0-99.0 [facility] Comment on above: Performed By: #### L IPID, T7, CMP, TSH #### [facility] [address] [place] [address] Dr. Jorge Glaser MONO # 0.8 103/ul Normal 0.3-0.8 [facility] Comment on above: Performed By: #### L IPID, T7, CMP, TSH #### [facility] [address] [place] [address] Dr. Jorge Glaser Monocytes/100 WBC (Bld) 9.1 % Normal 1.7-12.0 [facility] Comment on above: Performed By: #### L IPID, T7, CMP, TSH #### [facility] [address] [place] [address] Dr. Jorge Glaser NEUT # 5.1 103/ul Normal 1.4-6.5 [facility] Comment on above: Performed By: #### L IPID, T7, CMP, TSH #### [facility] [address] [place] [address] Dr. Jorge Glaser Neutrophils/100 WBC (Bld) 58.1 % Normal 43.0-75.0 [facility] Comment on above: Performed By: #### L IPID, T7, CMP, TSH #### [facility] [address] [address] [address] Jorge Glaser Platelet mean volume (Bld) [Entitic vol] 8.8 fL Critically low 9.5-13.5 [facility] Comment on above: Performed By: #### L IPID, T7, CMP, TSH #### [facility] [address] [place] [address] Dr. Jorge Glaser PLT 158 103/ul Normal 150-450 [facility] Comment on above: Performed By: #### L IPID, T7, CMP, TSH #### [facility] [address] [place] [address] Dr. Jorge Glaser RBC 4.35 106/ul Normal 4.20-5.40 [facility] Comment on above: Performed By: #### L IPID, T7, CMP, TSH #### [facility] [address] [place] [address] Dr. Jorge Glaser WBC 8.7 103/ul Normal 4.0-11.0 [facility] Comment on above: Performed By: #### L IPID, T7, CMP, TSH #### [facility] [address] [place] [address] Dr. Jorge Glaser FREE THYROXINE INDEX T7on FTI 2.15 Normal 1.30-4.50 [facility] Comment on above: Performed By: #### L IPID, T7, CMP, TSH #### [facility] [address] [place] [address] Dr. Jorge Glaser T3U 33.0 % Normal 30.0-39.0 [facility] Comment on above: Performed By: #### L IPID, T7, CMP, TSH #### [facility] [address] [place] [address] Dr. Jorge Glaser T4 [Mass/Vol] 6.50 ug/dL Normal 4.80-13.90 [facility] Comment on above: Performed By: #### L IPID, T7, CMP, TSH #### [facility] [address] [place] [address] Dr. Jorge Glaser GLYCOHEMOGLOBIN A1Con 2022 ADA RECOMMENDATION SEE BELOW Normal [facility] Comment on above: Result Comment: ADA RECOMMENDED LIMIT 4.0 - 6.0 ADA THERAPEUTIC TARGET < 7.0 ACTION SUGGESTED > 7.0 Performed By: #### A 1C #### [facility] [address] [address] [address] Jorge Glaser Glucose [Mass/Vol] 137 mg/dL Normal [facility] Comment on above: Performed By: #### A 1C #### [facility] [address] [address] [address] Jorge Glaser HbA1c (Bld) [Mass fraction] 6.4 % Critically high 4.5-6.2 [facility] Comment on above: Performed By: #### A 1C #### [facility] [address] [place] [address] Dr. Jorge Glaser IRONon 09-01-2022 Iron [Mass/Vol] 58.0 ug/dL Normal 50.0-170.0 [facility] Comment on above: Performed By: #### I DAVID #### [facility] [address] [address] [address] Jorge Glaser LIPID PROFILEon 09-01-2022 CHOL-HDL RATIO NORM SEE BELOW Normal [facility] Comment on above: Result Comment: 3.3 - 4.4 LOW RISK 4.4 - 7.1 AVERAGE RISK 7.1 - 11.0 MODERATE RISK >11.0 HIGH RISK Performed By: #### L IPID, T7, CMP, TSH #### [facility] [address] [address] [address] Jorge Glaser Cholesterol [Mass/Vol] 128 mg/dL Normal <=200 [facility] Comment on above: Performed By: #### L IPID, T7, CMP, TSH #### [facility] [address] [address] [address] Jorge Glaser Cholesterol in HDL [Mass/Vol] 61 mg/dL Critically high 40-60 [facility] Comment on above: Performed By: #### L IPID, T7, CMP, TSH #### [facility] [address] [address] [address] Jorge Glaser Cholesterol in LDL [Mass/Vol] 49.0 mg/dL Normal [facility] Comment on above: Performed By: #### L IPID, T7, CMP, TSH #### [facility] [address] [place] [address] Dr. Jorge Glaser Cholesterol.total/Ch olesterol in HDL [Mass ratio] 2.1 {ratio} Normal [facility] Comment on above: Performed By: #### L IPID, T7, CMP, TSH #### [facility] [address] [address] [address] Jorge Glaser HDL NORMAL > or = 60 mg/dl - LO W CARDIOVASCULAR RISK <40 mg/dl - HIGH CARDIOVASCULAR RISK Normal [facility] Comment on above: Performed By: #### L IPID, T7, CMP, TSH #### [facility] [address] [place] [address] Dr. Jorge Glaser LDL CALC NORMAL SEE BELOW Normal [facility] Comment on above: Result Comment: <100 mg/dl OPTIMAL 100 - 129 mg/dl NEAR OR ABOVE OPTIMAL 130 - 159 mg/dl BORDERLINE HIGH 160 - 189 mg/dl HIGH >190 mg/dl VERY HIGH Performed By: #### L IPID, T7, CMP, TSH #### [facility] [address] [place] [address] Dr. Jorge Glaser Triglyceride [Mass/Vol] 90 mg/dL Normal <=150 [facility] Comment on above: Performed By: #### L IPID, T7, CMP, TSH #### [facility] [address] [place] [address] Dr. Jorge Glaser VLDL CALC 18.0 mg/dL Normal [facility] Comment on above: Performed By: #### L IPID, T7, CMP, TSH #### [facility] [address] [address] [address] Jorge Glaser PROF 14(COMP METB)on 023 Albumin [Mass/Vol] 3.5 g/dL Normal 3.4-5.0 [facility] Comment on above: Performed By: #### L IPID, T7, CMP, TSH #### [facility] [address] [address] [address] Jorge Glaser Albumin/Globulin [Mass ratio] 1.1 {ratio} Normal [facility] Comment on above: Performed By: #### L IPID, T7, CMP, TSH #### [facility] [address] [address] [address] Jorge Glaser ALP [Catalytic activity/Vol] 42 U/L Critically low 46-116 [facility] Comment on above: Performed By: #### L IPID, T7, CMP, TSH #### [facility] [address] [address] [address] Jorge Glaser ALT [Catalytic activity/Vol] 23 U/L Normal 14-59 [facility] Comment on above: Performed By: #### L IPID, T7, CMP, TSH #### [facility] [address] [place] [address] Dr. Jorge Glaser Anion gap [Moles/Vol] 10.0 mmol/L Normal [facility] Comment on above: Performed By: #### L IPID, T7, CMP, TSH #### [facility] [address] [address] [address] Jorge Glaser AST [Catalytic activity/Vol] 21 U/L Normal 15-37 [facility] Comment on above: Performed By: #### L IPID, T7, CMP, TSH #### [facility] [address] [address] [address] Jorge Glaser Bilirubin [Mass/Vol] 0.5 mg/dL Normal 0.2-1.0 [facility] Comment on above: Performed By: #### L IPID, T7, CMP, TSH #### [facility] [address] [address] [address] Jorge Glaser Calcium [Mass/Vol] 9.2 mg/dL Normal 8.5-10.1 [facility] Comment on above: Performed By: #### L IPID, T7, CMP, TSH #### [facility] [address] [address] [address] Jorge Glaser Chloride [Moles/Vol] 99 mmol/L Normal 98-107 [facility] Comment on above: Performed By: #### L IPID, T7, CMP, TSH #### [facility] [address] [address] [address] Jorge Glaser CO2 [Moles/Vol] 32.2 mmol/L Critically high 21.0-32.0 [facility] Comment on above: Performed By: #### L IPID, T7, CMP, TSH #### [facility] [address] [address] [address] Jorge Glaser Creatinine [Mass/Vol] 0.78 mg/dL Normal 0.55-1.02 [facility] Comment on above: Performed By: #### L IPID, T7, CMP, TSH #### [facility] [address] [place] [address] Dr. Jorge Glaser EGFR-AF SUDANESE >60 Normal >=60 [facility] Comment on above: Performed By: #### L IPID, T7, CMP, TSH #### [facility] [address] [place] [address] Dr. Jorge Glaser EGFR-NON AF SUDANESE >60 Normal >=60 [facility] Comment on above: Performed By: #### L IPID, T7, CMP, TSH #### [facility] [address] [place] [address] Dr. Jorge Glaser Globulin (S) [Mass/Vol] 3.2 g/dL Normal [facility] Comment on above: Performed By: #### L IPID, T7, CMP, TSH #### [facility] [address] [place] [address] Dr. Jorge Glaser Glucose [Mass/Vol] 100 mg/dL Normal 74-106 [facility] Comment on above: Performed By: #### L IPID, T7, CMP, TSH #### [facility] [address] [place] [address] Dr. Jorge Glaser Potassium [Moles/Vol] 3.2 mmol/L Critically low 3.5-5.1 [facility] Comment on above: Performed By: #### L IPID, T7, CMP, TSH #### [facility] [address] [address] [address] Jorge Glaser Protein [Mass/Vol] 6.7 g/dL Normal 6.4-8.2 [facility] Comment on above: Performed By: #### L IPID, T7, CMP, TSH #### [facility] [address] [address] [address] Jorge Glaser Sodium [Moles/Vol] 138 mmol/L Normal 136-145 [facility] Comment on above: Performed By: #### L IPID, T7, CMP, TSH #### [facility] [address] [address] [address] Jorge Glaser Urea nitrogen [Mass/Vol] 17.0 mg/dL Normal 7.0-18.0 [facility] Comment on above: Performed By: #### L IPID, T7, CMP, TSH #### [facility] [address] [address] [address] Jorge Glaser Urea nitrogen/Creatinine [Mass ratio] 21.8 mg/mg Normal [facility] Comment on above: Performed By: #### L IPID, T7, CMP, TSH #### [facility] [address] [address] [address] Jorge Glaser TSHon 09-01-2022 TSH 4.483 uIU/mL Critically high 0.358-3.740 [facility] Comment on above: Performed By: #### L IPID, T7, CMP, TSH #### [facility] [address] [address] [address] Jorge Glaser XR DEXA BONE DENSITYon 08-27 XR DEXA BONE DENSITY EXAMINATION: XR DEX A BONE DENSITY, 08/27/2022 2:04 PM EST HISTORY: Screening for osteoporosis COMPARISON: None. TECHNIQUE: Dual-energy X-ray absorptiometry (DEXA) bone density study performed for the axial skeleton. FINDINGS: SPINE ANALYSIS: Average bone mineral density is 1.722 g/cm2. T-score (standard deviation relative to young adult mean): 4.3 . +4.8% change since prior study. HIP ANALYSIS: Lowest bone mineral density is within the left femoral neck, 1.001 g/cm2. T-score (standard deviation relative to young adult mean): -0.3 . +0.8% change since prior study. IMPRESSION: [employer] Classification: Normal - Low Fracture Risk Electronically authenticated by: KD VICENTERADHA Date: 2022-08-27 16:23 Normal [facility] 36on 08-19-2022 36 Yes, can switch her to Eliquis 5mg BID. Thank you Normal [facility] CBC AUTO DIFFon 05-22-2022 BASO # 0.1 103/ul Normal 0.0-0.1 [facility] Comment on above: Performed By: #### L IPID, T7, CMP, TSH #### [facility] [address] [address] [address] Jorge Glaser Basophils/100 WBC (Bld) 0.5 % Normal 0.2-2.0 [facility] Comment on above: Performed By: #### L IPID, T7, CMP, TSH #### [facility] [address] [address] [address] Jorge Glaser EO # 0.2 103/ul Normal 0.0-0.7 [facility] Comment on above: Performed By: #### L IPID, T7, CMP, TSH #### [facility] [address] [address] [address] Jorge Glaser Eosinophils/100 WBC (Bld) 2.0 % Normal 0.9-7.0 [facility] Comment on above: Performed By: #### L IPID, T7, CMP, TSH #### [facility] [address] [address] [address] Jorge Glaser Erythrocyte distribution width (RBC) [Ratio] 14.1 % Normal 11.0-15.0 [facility] Comment on above: Performed By: #### L IPID, T7, CMP, TSH #### [facility] [address] [address] [address] Jorge Glaser Hematocrit (Bld) [Volume fraction] 42.2 % Normal 36.0-48.0 [facility] Comment on above: Performed By: #### L IPID, T7, CMP, TSH #### [facility] [address] [place] [address] Dr. Jorge Glaser Hemoglobin (Bld) [Mass/Vol] 14.2 g/dL Normal 12.0-16.0 [facility] Comment on above: Performed By: #### L IPID, T7, CMP, TSH #### [facility] [address] [place] [address] Dr. Jorge Glaser IG # 0.08 10e3/ul Critically high 0.00-0.[address] [facility] Comment on above: Performed By: #### L IPID, T7, CMP, TSH #### [facility] [address] [place] [address] Dr. Jorge Glaser IG % 0.8 % Critically high 0.0-0.5 [facility] Comment on above: Performed By: #### L IPID, T7, CMP, TSH #### [facility] [address] [place] [address] Dr. Jorge Glaser LYMPH # 1.2 103/ul Normal 1.2-3.8 [facility] Comment on above: Performed By: #### L IPID, T7, CMP, TSH #### [facility] [address] [place] [address] Dr. Jorge Glaser Lymphocytes/100 WBC (Bld) 11.9 % Critically low 20.5-60.0 [facility] Comment on above: Performed By: #### L IPID, T7, CMP, TSH #### [facility] [address] [place] [address] Dr. Jorge Glaser MANUAL DIFF REQ NO Normal [facility] Comment on above: Performed By: #### L IPID, T7, CMP, TSH #### [facility] [address] [place] [address] Dr. Jorge Glaser MCH (RBC) [Entitic mass] 30.8 pg Normal 26.7-34.0 [facility] Comment on above: Performed By: #### L IPID, T7, CMP, TSH #### [facility] [address] [place] [address] Dr. Jorge Glaser MCHC (RBC) [Mass/Vol] 33.6 g/dL Normal 29.9-35.2 [facility] Comment on above: Performed By: #### L IPID, T7, CMP, TSH #### [facility] [address] [place] [address] Dr. Jorge Glaser MCV (RBC) [Entitic vol] 91.5 fL Normal 81.0-99.0 [facility] Comment on above: Performed By: #### L IPID, T7, CMP, TSH #### [facility] [address] [place] [address] Dr. Jorge Glaser MONO # 0.5 103/ul Normal 0.3-0.8 [facility] Comment on above: Performed By: #### L IPID, T7, CMP, TSH #### [facility] [address] [place] [address] Dr. Jorge Glaser Monocytes/100 WBC (Bld) 5.0 % Normal 1.7-12.0 [facility] Comment on above: Performed By: #### L IPID, T7, CMP, TSH #### [facility] [address] [place] [address] Dr. Jorge Glaser NEUT # 8.3 103/ul Critically high 1.4-6.5 [facility] Comment on above: Performed By: #### L IPID, T7, CMP, TSH #### [facility] [address] [place] [address] Dr. Jorge Glaser Neutrophils/100 WBC (Bld) 79.8 % Critically high 43.0-75.0 [facility] Comment on above: Performed By: #### L IPID, T7, CMP, TSH #### [facility] [address] [place] [address] Dr. Jorge Glaser Platelet mean volume (Bld) [Entitic vol] 9.0 fL Critically low 9.5-13.5 [facility] Comment on above: Performed By: #### L IPID, T7, CMP, TSH #### [facility] [address] [place] [address] Dr. Jorge Glaser PLT 154 103/ul Normal 150-450 [facility] Comment on above: Performed By: #### L IPID, T7, CMP, TSH #### [facility] [address] [address] [address] Jorge Glaser RBC 4.61 106/ul Normal 4.20-5.40 [facility] Comment on above: Performed By: #### L IPID, T7, CMP, TSH #### [facility] [address] [address] [address] Jorge Glaser WBC 10.4 103/ul Normal 4.0-11.0 [facility] Comment on above: Performed By: #### L IPID, T7, CMP, TSH #### [facility] [address] [place] [address] Dr. Jorge Glaser PROF CHEM 8 (BAS METB)on Anion gap [Moles/Vol] 9.0 mmol/L Normal [facility] Comment on above: Performed By: #### L IPID, T7, CMP, TSH #### [facility] [address] [address] [address] Jorge Glaser Calcium [Mass/Vol] 10.0 mg/dL Normal 8.5-10.1 [facility] Comment on above: Performed By: #### L IPID, T7, CMP, TSH #### [facility] [address] [place] [address] Dr. Jorge Glaser Chloride [Moles/Vol] 94 mmol/L Critically low 98-107 [facility] Comment on above: Performed By: #### L IPID, T7, CMP, TSH #### [facility] [address] [address] [address] Jorge Glaser CO2 [Moles/Vol] 31.4 mmol/L Normal 21.0-32.0 [facility] Comment on above: Performed By: #### L IPID, T7, CMP, TSH #### [facility] [address] [place] [address] Dr. Jorge Glaser Creatinine [Mass/Vol] 0.69 mg/dL Normal 0.55-1.02 [facility] Comment on above: Performed By: #### L IPID, T7, CMP, TSH #### [facility] [address] [address] [address] Jorge Glaser EGFR-AF SUDANESE >60 Normal >=60 [facility] Comment on above: Performed By: #### L IPID, T7, CMP, TSH #### [facility] [address] [address] [address] Jorge Glaser EGFR-NON AF SUDANESE >60 Normal >=60 [facility] Comment on above: Performed By: #### L IPID, T7, CMP, TSH #### [facility] [address] [address] [address] Jorge Glaser Glucose [Mass/Vol] 129 mg/dL Critically high 74-106 [facility] Comment on above: Performed By: #### L IPID, T7, CMP, TSH #### [facility] [address] [place] [address] Dr. Jorge Glaser Potassium [Moles/Vol] 3.4 mmol/L Critically low 3.5-5.1 [facility] Comment on above: Performed By: #### L IPID, T7, CMP, TSH #### [facility] [address] [place] [address] Dr. Jorge Glaser Sodium [Moles/Vol] 131 mmol/L Critically low 136-145 [facility] Comment on above: Performed By: #### L IPID, T7, CMP, TSH #### [facility] [address] [address] [address] Jorge Glaser Urea nitrogen [Mass/Vol] 17.0 mg/dL Normal 7.0-18.0 [facility] Comment on above: Performed By: #### L IPID, T7, CMP, TSH #### [facility] [address] [place] [address] Dr. Jorge Glaser Urea nitrogen/Creatinine [Mass ratio] 24.6 mg/mg Normal [facility] Comment on above: Performed By: #### L IPID, T7, CMP, TSH #### [facility] [address] [address] [address] Jorge Glaser NM STRESS/REST MULTIon 03-22 NM STRESS/REST MULTI Patient: KAREN GIFFORD Exam Date: 03/22/2022 : 1935 Gender:F Ordering : DR VINCENZO PATEL . Admission #: [id number] Family : CHILANGO SANDOVAL [employer]IC[employer] OFFICER Order #: [id number] CLICK HERE TO VIEW EXAM RADIOLOGY REPORT PROCEDURE: RADIONUCLIDE IMAGING STRESS/REST MULTI COMPARISON: None. INDICATIONS: Persistent atrial fibrillation TECHNIQUE: Exam Description: Stress/Rest one day protocol gated SPECT Rest Imagin.3 mCi Tc-99m Cardiolite IV on 03/22/2022 Stress Imaging 30.8 mCi Tc-99m Cardiolite IV on 03/22/2022 Exercise Protocol: 0.4 mg Lexiscan given IV Heart Rate (bpm): Rest: 71 Max: 94 PMHR: 69 Blood Pressure: Rest: 148/68 Max: 148/68 Symptoms: Rest and peak stress ECG findings were normal and the exercise portion of the study was normal per attending physician Dr. Heaton . For more details please see separate cardiac stress test report. FINDINGS: QUALITY OF STUDY: Good. PERFUSION DEFECT: None. LOCATION: N/A SIZE: N/A. SEVERITY: N/A. TYPE: N/A. WALL MOTION: Normal. LV SIZE: Normal. 63 mL. TID / TCD: None; 0.9 LVEF: Normal. Calculated EF 81%. SUMMARY: Myocardial perfusion imaging study is NORMAL. CONCLUSION: 1. Normal myocardial perfusion scan 2. Normal exercise test Dictated by: Jay Rachel MD on 03/23/2022 at 11:40 Approved by: Jay Rachel MD on 03/23/2022 at 11:42 Normal [facility] Ambulatory Clinical Summaryo n 02-17-2021 Ambulatory Clinical Summary {[id number] Normal [facility] Historical Records Officeon 02-17-2021 Historical Records Office [id number] 0CD:127 Normal [facility] Physician Referralon 021 Physician Referral [id number] CD:127 Normal [facility] Provider Letter FTMCon 11-20 Provider Letter [facility] Vincenzo Jorge, [address] [place] [address] [place] [address] Re: KAREN GIFFORD Date of : 1935 Thank you for your referral of Karen Gifford who was seen on consultation for sebaceous cyst left upper back on November 19, 2020. I have enclosed my consultation note for your review. I will be happy to follow Karen should her symptoms persist. Sincerely, Avtar Jones MD General Surgery Normal [facility] Ambulatory Clinical Summaryo n 11-19-2020 Ambulatory Clinical Summary {[id number] Normal [facility] General Surgery Office/Clini c Noteon 11-19-2020 General Surgery Office/Clinic Note HPI Staff pt was referred by Dr Patel for Sebaceous cyst lt upper back not sure how long its been there, no bleeding but her bra rubs it sometimes and can hurt a little then. History of Present Illness 85 yo female with h/o htn, LANEY, valvular insufficiency, DJD, referred by Dr Patel for sebaceous cyst on left back, rubs on bra strap; no drainage; on baby asa and Plavix daily; no h/o injury to area or drainage, no previous cyst removal; h/o skin cancer, one recently removed form right forehead by Back Shoe Operator. Review of Systems ROS - Provider Constitutional: no fever, no sweats, no weight loss. Eyes: no glasses, no blurred vision, no visual loss. ENMT: no dentures, no hoarseness, no swallowing difficulties, no hearing loss, no ear infection(s), no nose bleeds. Cardiovascular: high blood pressure, no chest pain, regular heartbeat, yes heart murmur. Respiratory: no shortness of breath, no cough, no asthma, no wheezing. Gastrointestinal: no nausea, no vomiting, no diarrhea, no constipation, no blood in stool, no change in bowel habits, no abdominal pain, no hepatitis. Genitourinary: no kidney stones, no urine infection, no dysuria. Musculoskeletal: mild pain, no weakness. Skin: no changing moles, no rash, yes skin lumps. Neurologic: no seizures, no epilepsy, no headache. Psychiatric: no emotional or psychiatric problem. Heme/Lymph: no bleeding problems, no anemia, no blood clots, no transfusions. Allergy/Immunologic: no swollen lymph nodes/glands, no IV drug abuse. Other: Additional ROS info: Except as noted in the above Review of Systems and in the History of Present Illness, all other systems have been reviewed and are negative or noncontributory. Physical Exam Vitals & Measurements BP: 122/70 HT: 170.0 cm HT: 170 cm WT: 70.3 kg WT: 70.3 kg BMI: 24.33 HEENT: normal conjunctiva, sclera clear, no scleral icterus, EOM intact, PERRLA, oral mucosa moist without lesions. Neck: trachea midline, no mass, symmetric, no thyromegaly or nodules, no adenopathy Musculoskeletal: normal gait, digits and nails without infection, nodes, cyanosis, clubbing. Skin: no rashes, no lesions, left upper back with 7 mm epidermal cyst, nontender, no overlying skin changes; several seborrheic keratoses; prominent inferior ngle of scapula, left > right; no skin changes, nontender. Psychiatric/Neuro: oriented to time, place, person, judgement normal, affect appropriate for age, insight intact, no focal deficits. Tests: , review of old records completed, Assessment/Plan 1. Epidermal inclusion cyst (L72.0: Epidermal cyst) asymptomatic, patient wishes to observe for now, will call with problems/questions; area patient was concerned about was inferior angle of scapula; no palpable subcutaneous nodules in that area. call with problems/questions. Follow-up With When Contact Information CAITLIN CORDON, Avtar Woods if needed [address] [place] [address]- Additional Instructions: Patient Education Epidermal Cyst Problem List/Past Medical History Ongoing Aortic insufficiency Basal cell carcinoma Cataract DJD (degenerative joint disease) Dyspnea Epidermal inclusion cyst HTN (hypertension) Mitral regurgitation LANEY (obstructive sleep apnea) Osteopenia Sebaceous cyst Syncope TIA on medication Tricuspid regurgitation Ventricular hypertrophy Historical Abdominal hysterectomy Laparoscopic cholecystectomy Medications aspirin 81 mg Chew Tab, Chewed, Daily atenolol 100 mg Tab, 100 mg= 1 tab(s), Oral, BID Dry Eye What Cheer Benefits, Oral, BID hydrALAZINE 50 mg Tab, 50 mg= 1 tab(s), Oral, TID hydrochlorothiazide 25 mg Tab, 25 mg= 1 tab(s), Oral, Daily latanoprost ophthalmic 0.005% solution, 1 drop(s), OPTH, Once a day (at bedtime) Norvasc 5 mg Tab, 5 mg= 1 tab(s), Oral, Daily olmesartan 40 mg Tab, 40 mg= 1 tab(s), Oral, Daily Plavix 75 mg Tab, 75 mg= 1 tab(s), Oral, Daily potassium chloride 10 mEq Cap-ER, 10 mEq= 1 cap(s), Oral, BID simvastatin 10 mg Tab, 10 mg= 1 tab(s), Oral, Once a day (at bedtime) Timolol Maleate (Eqv-Istalol) 0.5% ophthalmic solution Allergies Procardia (Unknown) Vasotec (Unknown) Zestril (Unknown) sulfa drugs (Unknown) Social History Tobacco Never (less than 100 in lifetime) Tobacco Use:. Never Smokeless Tobacco Use:., 11/19/2020 [facility] Comment on above: Result Comment: Elec tronically Signed By: CAITLIN CORDON, Avtar Lobo.dalton\Date and Time Signed: 11/19/20 15:46 EDT Patient Educationon 11-20-19 Patient Education Dermatology Epidermal Cyst An epidermal cyst is a sac made of skin tissue. The sac contains a substance called keratin. Keratin is a protein that is normally secreted through the hair follicles. When keratin becomes trapped in the top layer of skin (epidermis), it can form an epidermal cyst. Epidermal cysts can be found anywhere on your body. These cysts are usually harmless (benign), and they may not cause symptoms unless they become infected. What are the causes? This condition may be caused by: ? A blocked hair follicle. ? A hair that curls and re-enters the skin instead of growing straight out of the skin (ingrown hair). ? A blocked pore. ? Irritated skin. ? An injury to the skin. ? Certain conditions that are passed along from parent to child (inherited). ? Human papillomavirus (HPV). ? Long-term (chronic) sun damage to the skin. What increases the risk? The following factors may make you more likely to develop an epidermal cyst: ? Having acne. ? Being overweight. ? Being 30-40 years old. What are the signs or symptoms? The only symptom of this condition may be a small, painless lump underneath the skin. When an epidermal cyst ruptures, it may become infected. Symptoms may include: ? Redness. ? Inflammation. ? Tenderness. ? Warmth. ? Fever. ? Keratin draining from the cyst. Keratin is grayish-white, bad-smelling substance. ? Pus draining from the cyst. How is this diagnosed? This condition is diagnosed with a physical exam. ? In some cases, you may have a sample of tissue (biopsy) taken from your cyst to be examined under a microscope or tested for bacteria. ? You may be referred to a health care provider who specializes in skin care (bike shop manager). How is this treated? In many cases, epidermal cysts go away on their own without treatment. If a cyst becomes infected, treatment may include: ? Opening and draining the cyst, done by a health care provider. After draining, minor surgery to remove the rest of the cyst may be done. ? Antibiotic medicine. ? Injections of medicines (steroids) that help to reduce inflammation. ? Surgery to remove the cyst. Surgery may be done if the cyst: ? Becomes large. ? Bothers you. ? Has a chance of turning into cancer. ? Do not try to open a cyst yourself. Follow these instructions at home: ? Take pwjn-ekv-idilljz and prescription medicines only as told by your health care provider. ? If you were prescribed an antibiotic medicine, take it it as told by your health care provider. Do not stop using the antibiotic even if you start to feel better. ? Keep the area around your cyst clean and dry. ? Wear loose, dry clothing. ? Avoid touching your cyst. ? Check your cyst every day for signs of infection. Check for: ? Redness, swelling, or pain. ? Fluid or blood. ? Warmth. ? Pus or a bad smell. ? Keep all follow-up visits as told by your health care provider. This is important. How is this prevented? ? Wear clean, dry, clothing. ? Avoid wearing tight clothing. ? Keep your skin clean and dry. Take showers or baths every day. Contact a health care provider if: ? Your cyst develops symptoms of infection. ? Your condition is not improving or is getting worse. ? You develop a cyst that looks different from other cysts you have had. ? You have a fever. Get help right away if: ? Redness spreads from the cyst into the surrounding area. Summary ? An epidermal cyst is a sac made of skin tissue. These cysts are usually harmless (benign), and they may not cause symptoms unless they become infected. ? If a cyst becomes infected, treatment may include surgery to open and drain the cyst, or to remove it. Treatment may also include medicines by mouth or through an injection. ? Take ybif-jur-odslcsz and prescription medicines only as told by your health care provider. If you were prescribed an antibiotic medicine, take it as told by your health care provider. Do not stop using the antibiotic even if you start to feel better. ? Contact a health care provider if your condition is not improving or is getting worse. ? Keep all follow-up visits as told by your health care provider. This is important. This information is not intended to replace advice given to you by your health care provider. Make sure you discuss any questions you have with your health care provider. Document Released: 07/02/2005 Document Revised: 11/22/2019 Document Reviewed: 02/12/2019 [employer] Patient Education ? 2019 [employer] Normal [facility] Physician Referralon 021 Physician Referral [phone] 30 [id number] Normal [facility] Vital Signs Date Time Vital Sign Value Performing Clinician Low meyers 06-28-2023 13:37-0500 Body height 170.2 cm Jay Munoz MD Work Phone: [facility] 06-28-2023 13:37-0500 Diastolic blood pressure 60 mm[Hg] Jay Munoz MD Work Phone: [facility] 06-28-2023 13:37-0500 Heart rate 77 /min Jay Munoz MD Work Phone: [facility] 06-28-2023 13:37-0500 Systolic blood pressure 90 mm[Hg] Jay Munoz MD Work Phone: [facility] Encounters Encounter Date Encounter Type Care Provider Facility Start: 02-02-2024 Orders Only Jay Munoz MD Work Phone: [facility] Comment on above: PAF (paroxysmal atri al fibrillation) (HCC) (Primary Dx); Presence of cardiac pacemaker Start: 01-02-2024 End: 01-02-2024 ambulatory LORIE PARK Not Available Start: 12-01-2023 ambulatory ABIMBOLA CHACON Facilit y:[facility] Start: 12-01-2023 End: 12-01-2023 Office outpatient visit 15 minutes Abimbola Chacon MD Work Phone: [facility] Comment on above: Primary open-angle g laucoma, bilateral, indeterminate stage (Primary Dx) Start: 11-23-2023 End: 12-08-2023 ambulatory [facility] Start: 06-28-2023 End: 06-29-2023 ambulatory [facility] Start: 06-28-2023 End: 06-28-2023 Office outpatient new 60 minutes Jay Munoz MD Work Phone: [facility] Comment on above: PAF (paroxysmal atri al fibrillation) (HCC) (Primary Dx); Presence of cardiac pacemaker; SSS (sick sinus syndrome) (HCC); Hypertension, unspecified type; Heart failure with preserved ejection fraction, unspecified HF chronicity (HCC) Start: 06-23-2023 Orders Only Jay Munoz MD Work Phone: [facility] Comment on above: PAF (paroxysmal atri al fibrillation) (HCC) (Primary Dx) Start: 06-03-2023 End: 06-03-2023 ambulatory [facility] Start: 05-31-2023 ambulatory ABIMBOLA Saba y:[facility] Start: 05-31-2023 End: 05-31-2023 Office outpatient new 45 minutes Abimbola Chacon MD Work Phone: [facility] [place] Comment on above: Primary open-angle g laucoma, bilateral, indeterminate stage (Primary Dx); PCO (posterior capsular opacification), left Start: 05-06-2023 End: 05-06-2023 ambulatory [facility] Start: 04-12-2023 End: 04-12-2023 ambulatory [facility] Start: 03-09-2023 End: 03-09-[address] [facility] Start: 03-09-2023 End: 03-10-2023 ambulatory VINCENZO PATEL [facility] Start: 01-18-2023 End: 01-18-2023 ambulatory [facility] Start: 12-29-2022 End: 12-29-2022 ambulatory [facility] Start: 12-27-2022 End: 12-28-2022 ambulatory CHILANGO SANDOVAL Facility:[facility] Start: 12-01-2022 End: 12-02-[address] VINCENZO PATEL . Facility:[facility] Start: 11-18-2022 End: 11-18-2022 ambulatory [facility] Start: 11-11-2022 End: 11-12-[address] VINCENZO PATEL . Facility:[facility] Start: 11-04-2022 End: 11-05-[address] VINCENZO PATEL . Facility:[facility] Start: 10-04-2022 End: 10-05-[address] VINCENZO PATEL . Facility:[facility] Start: 09-01-2022 End: 09-02-[address] VINCENZO PATEL . Facility:[facility] Start: 08-27-2022 End: 08-28-[address] VINCENZO PATEL . Facility:[facility] Start: 08-27-2022 End: 09-11-[address] VINCENZO PATEL . Facility:[facility] Start: 06-29-2022 End: 06-29-2022 ambulatory [facility] Start: 05-22-2022 End: 05-22-[address] VINCENZO PATEL . Facility:[facility] Start: 03-22-2022 End: 03-23-[address] VINCENZO PATEL . Facility: Procedures Date Procedure Procedure Detail Performing Clinician Start: 12-01-2023 Visual field xm uni/ bi w/interp extended exam Abimbola Chacon MD Work Phone: Start: 06-28-2023 Ecg routine ecg w/le ast 12 lds w/i&r Jay Munoz MD Work Phone: Start: 05-31-2023 Computerized ophthal jennifer imaging optic nerve Abimbola Chacon MD Work Phone: Start: 05-31-2023 Post-cataract laser surgery Abimbola Chacon MD Work Phone: Plan of Treatment Date Care Activity Detail Author Start: 06-09-2032 Tetanus vaccination [facility] Start: 06-28-2024 CLASS III : OFFICE VISIT CLASS III : OFFICE VISIT [facility] Start: 06-04-2024 End: 06-04-2024 Patient encounter procedure 06/04/2024 3:30 PM EDT Office Visit [facility] [place] [address] [place] [address] Abimbola Chacon MD [address] [place] [address] [facility] [place] Start: 03-14-2024 End: 03-14-2024 Patient encounter procedure [facility] Start: 02-21-2024 End: 02-21-2024 Patient encounter procedure 02/21/2024 7:00 AM EDT Appointment [facility] [address] [place] [address] Nubia Campoverde MD [address] [place] [address] [facility] Start: 12-27-2023 End: 12-27-2023 Patient encounter procedure 12/27/2023 1:50 PM EDT Office Visit [facility] [address] [place] [phone] Jay Munoz MD [address] [place] [address] [facility] Start: 12-01-2023 End: 12-01-2023 Patient encounter procedure 12/01/2023 10:30 AM EDT Office Visit [facility] [place] [address] [place] [address] Abimbola Chacon MD [address] [place] [phone] [facility] [place] Start: 09-26-2023 COVID-19 Vaccine ( season) COVID-19 Vaccine () [facility] Start: 06-28-2023 End: 06-28-2023 Patient encounter procedure 06/28/2023 1:00 PM EST Office Visit [facility] [address] [place] [id number] Jay Munoz MD [address] [place] [address] [facility] Start: 04-15-2023 COVID-19 VACCINE ( season) COVID-19 VACCINE ( season) [facility] Start: 04-15-2023 Influenza vaccination Sequenti al Influenza Vaccine (#1) [facility] Start: 01-23-2015 Screening for malign ant neoplasm of breast MAMMOGRAM SCREENING DISCUSSION [facility] Start: 2002 Fall risk assessment Falls Risk Asse ssment [facility] Start: 2002 Pneumococcal vaccination [facility] Start: 2002 Pneumococcal Vaccine : Age 65+ (1 - PCV) Pneumococcal Vaccine: Age 65+ (1 - PCV) [facility] Start: 2002 Pneumococcal Vaccine : Age 65+ (1 of 1 - PCV) Pneumococcal Vaccine: Age 65+ (1 of 1 - PCV) [facility] Start: 1987 Administration of he rpes zoster vaccine Zoster Vaccines (1 of 2) [facility] Start: 1987 Zoster vaccine hzv l trace for subcutaneous use ZOSTER (SHINGLES) VACCINE (1 of 2) [facility] Start: 1982 Screening for malign ant neoplasm of colon COLORECTAL CANCER SCREENING DISCUSSION [facility] Start: 1958 Screening for malign ant neoplasm of cervix CERVICAL CANCER SCREENING DISCUSSION [facility] Start: 1949 Depression screening using PHQ-9 (Patient Health Questionnaire 9) score Depression Screening (PHQ-2/9) [facility] Start: 1940 History and physical examination, annual for health maintenance Wellness Visit [facility] Start: 1940 Medicare Wellness Visit Medicare Wel lness Visit [facility] Start: 1937 Alanine aminotransfe rase measurement CLASS III : ALT [facility] Start: 1937 CLASS III : AST CLASS III : AST [facility] Start: 1937 CLASS III : CXR CLASS III : CXR [facility] Start: 1937 CLASS III : EKG CLASS III : EKG [facility] Start: 1937 CLASS III : PFT CLASS III : PFT [facility] Start: 1937 Potassium [Moles/vol ume] in Serum or Plasma POTASSIUM [facility] Start: 1937 Screening for osteoporosis [facility] Start: 1937 Thyroid stimulating hormone measurement [facility] End: 06-23-2024 12 lead ECG ECG 12 lead ECG Routine PAF (paroxysmal atrial fibrillation) (HCC) 1 Occurrences starting 06/23/2023 until 06/23/2024 [facility] Work Phone: Comment on above: 1 Occurrences starti ng 06/23/2023 until 06/23/2024 End: 02-01-2025 12 lead ECG ECG 12 lead ECG Routine PAF (paroxysmal atrial fibrillation) (HCC) Presence of cardiac pacemaker 4 Occurrences starting 02/02/2024 until 02/01/2025 [employer] Work Phone: Comment on above: 4 Occurrences starti ng 02/02/2024 until 02/01/2025 Ophthalmic us dx [facility] pachymetry uni/bi PACHYMETRY-OU [place] Charge Routine Primary open-angle glaucoma, bilateral, indeterminate stage Ordered: 05/31/2023 [facility] Comment on above: Ordered: 05/31/2023 Payers Date Payer Category Payer Private Health Insurance LISSA Yoshi FLAKITA OTHER AFTER MEDICARE [id number] 2016-Present [phone] [address] [address] [place] [address] [id number] 2002 Medicare [id number] 1959 Medicare [id number] 1959 Private Health Insurance [id number] 1937 Unknown [id number] [id number] .59 1937 Unknown [id number] 2.16.840.1.032613.3.579.2 .59 1937 Unknown [id number] 2.16.840.1.096053.3.579.2 .59 1937 Unknown [id number] 2.16.840.1.684751.3.579.2 .59 1937 Unknown [id number] 2.16.840.1.795757.3.579.2 .593 1937 Unknown [id number] 2.16.840.1.108135.3.579.2 .593 1937 Unknown [id number] 2.16.840.1.423503.3.579.2 .593 1937 Unknown [id number] 2.16.840.1.792765.3.579.2 .593 1937 Unknown [id number] 2.16.840.1.389720.3.579.2 .593 1937 Unknown [id number] 2.16.840.1.295240.3.579.2 .593 1937 Unknown [id number] 2.16.840.1.737762.3.579.2 .173 1937 Unknown [id number] 2.16.840.1.215131.3.579.2 .903 1937 Unknown [id number] 2.16.840.1.538588.3.579.2 .594 1937 Unknown [id number] 2.16.840.1.384989.3.579.2 .594 1937 Unknown [id number] 2.16.840.1.760613.3.579.2 .900 1937 Unknown [id number] 2.16.840.1.477141.3.579.2 .900 1937 Unknown [id number] 2.16.840.1.065701.3.579.2 .1259 Social History Date Type Detail Facility Start: 05-31-2023 End: 06-28-2023 Tobacco smoking status LAIS Never smoked tobacco [facility] Start: 05-31-2023 End: 06-28-2023 Tobacco use and exposure Smokeless tobacco non-user [facility] Start: 05-31-2023 End: 12-01-2023 Alcohol intake Ex-drinker (finding) [facility] Start: 05-31-2023 End: 06-28-2023 History of Social function [facility] Start: 05-31-2023 End: 06-28-2023 Tobacco use panel [facility] Start: 1935 Sex Assigned At Not on file [facility] Tobacco smoking status NHIS Tobacco smoking consumption unknown [facility] Start: 06-28-2023 Alcohol intake Lifetime non-d burak (finding) [facility] Medical Equipment Procedure Code Equipment Code Equipment Origin al Text Equipment Identifier Dates Acclarent [id number] Edora 8 Chrissy [id number] Start: 05-12-2022 Acclarent [id number] 7 Solia S 53 [id number] Start: 05-12-2022 Acclarent [id number] 17 6 Solia S 45 [id number] Start: 05-12-2022 Clinical Notes 02-17-2021 to 12-01-2023 Mindi Holt - 12/01/2023 10:30 AM Oneil Chacon MD - 12/01/2023 10:30 AM Jay Tripp MD - 06/28/2023 1:00 PM ESTPatient Kimberli Ndiaye - 05/31/2023 10:15 AM EDT Note Date & Type Note Facility 12-01-2023 History of Present illness Narrative REASON FOR VISIT Karen Gifford presents to clinic today for a Follow-Up Patient visit. Chief Complaint Follow-up HISTORY OF PRESENT ILLNESS HPI 88 yo female with hx of POAG present for 6 mo IOP check and HVF. Patient states she is doing well. Patient complains of blurred vision that she has only noticed this morning. Patient was in hospital in October for observation of abdominal pain. timolol bid OU @ 7:15am latanoprost at bedtime OU @ 10pm Last edited by Mindi Holt on 12/01/2023 10:36 AM. Allergies, medications & history reviewed & updated by Mindi Holt REVIEW OF SYSTEMS Review of Systems Constitutional: Negative for chills and fever. Eyes: Positive for visual disturbance. 15 minutes of face to face time was spent with patient performing the water filtration technician work of this visit. Referring Physician: Hx; 88 yo female with hx of CE done many years ago, also told about having glaucoma at that time. Has been maintained on drops for past several years, she notes that last visit she had abrasions OU so asked to transfer care here. Vision has been doing ok, vision improved after laser OS last visit. No problems with drops. ROS: complete review of systems performed by water filtration technician, reviewed by me. OCT: baseline, good quality, shows moderate inferior thinning OU by GCC and RNFL HVF: baseline, good quality, shows peripheral defects OU CCT: thin at 510, 530 Meds: timolol bid OU, latanoprost at bedtime OU A/P 1)POAG: IOP is doing fine on meds at this point, would monitor for stability. RTC In 6 mo's for IOP check and OCT, sooner PRN. 2)PCO: resolved OS. documented in this encounter [facility] 06-28-2023 History of Present illness Narrative Electrophysiology Clinic Consult Heart & Vascular [facility] 06/28/2023 Jay Munoz MD [address] [facility] [address] Patient: Karen Gifford Date of : 1935 (88 y.o.) Referring Provider: Vincenzo Patel MD PCP: Vincenzo Patel MD Chief Complaint: Second opinion, atrial fibrillation History of Present Illness: Karen Gifford is a very pleasant 88 y.o. female with a history of HTN, HLD, LANEY nonadherent to CPAP, HFpEF, persistent atrial fibrillation, and sick sinus syndrome status post dual chamber PPM implantation (Biotronik, 05/13/2022). She presents today for a second opinion regarding management of atrial fibrillation. She is accompanied by her daughter, who assisted in providing the following history. Ms. Gifford was first diagnosed with atrial fibrillation in November 2021, at which time she endorsed fatigue and sensation of an irregular heart rhythm. A 7-day Holter monitor performed between 12/09/2021 - 12/16/2021 showed an atrial fibrillation burden of 100%. She was treated with atenolol 100 mg daily, Cardizem CD 120 mg daily, flecainide 100 mg twice daily, and rivaroxaban 20 mg daily followed by [facility] on 05/13/2022. Following cardioversion she had a 10-second postconversion pause and profound sinus bradycardia thereafter at 25-30 bpm, for which she underwent emergent implantation of a dual-chamber permanent pacemaker. She remained on flecainide thereafter without significant burden of atrial fibrillation detected on serial device checks until the summer, with device checks showing several episodes of atrial fibrillation with controlled ventricular rate, with the longest episode lasting 1 hour. Of note, she was also hospitalized in February 2023 for volume overload, but she was not noted to have a significant burden of atrial fibrillation during her hospitalization. Her flecainide was nonetheless discontinued on 05/06/2023, and she was orally loaded with 11 g of amiodarone followed by a maintenance dose of 200 mg daily. Today Ms. Gifford states that she feels well, with no specific complaints. She remains quite active for her age, doing water walking at the [facility] for 30 minutes twice per week. She denies shortness of breath, chest discomfort, palpitations, lightheadedness, syncope, or lower extremity swelling. She does endorse mild shortness of breath associated with prior episodes of atrial fibrillation. Since starting amiodarone in April 2023, she has experienced significant hair loss as well as a mild intention tremor in her right upper extremity. Of note, her blood pressure has been somewhat difficult to control, for which her Cardizem CD was recently increased from 240 mg daily to 300 mg daily. Today she presents a daily blood pressure log since 06/18/2023 which shows blood pressures in the range of 100-160/45-70 mmHg. Electrocardiogram performed in the office today shows an atrial paced rhythm at 92 bpm with first degree AV block and RBBB. Device check performed in the office today shows normal RA and RV lead parameters and normal device function with estimated battery longevity of 8 years, atrial pacing burden 100%, and ventricular pacing burden 9% with programming at DDD-CLS with PAV/SIMON delays of 230/230ms. There has been a trivial burden of atrial fibrillation <1% since 05/26/2022, with the longest episode lasting 1 hour on 05/26/2022 and with no logged episodes since 08/24/2022. 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 Outside echocardiogram performed on 02/22/2023 showed an LVEF of 62%, mild concentric LVH, severe biatrial dilation, mildly dilated RV with normal systolic function, and dilated IVC of 2.5 cm. Outside myocardial perfusion pharmacologic stress SPECT performed on 03/22/2022 showed no evidence of myocardial ischemia or scar. Objective Medical History Past Medical History: Diagnosis Date Arrhythmia Hypertension Past Surgical History: Procedure Laterality Date CARDIAC PACEMAKER PLACEMENT History reviewed. No pertinent family history. Social History Social History Tobacco Use Smoking status: Never Smokeless tobacco: Never Vaping Use Vaping Use: Never used Substance Use Topics Alcohol use: Never Drug use: Never Tobacco Use Smoking Status Never Smokeless Tobacco Never Home Medications Patient's Medications New Prescriptions No medications on file Previous Medications ALBUTEROL (PROVENTIL) 2.5 MG /3 ML (0.083 %) NEBULIZER SOLUTION 3 mL as needed Inhalation every 6 hrs ATENOLOL (TENORMIN) 100 MG TABLET Take 1 tablet twice a day by oral route for 90 days. CHOLECALCIFEROL (VITAMIN D3) 250 MCG (10,000 UNIT) CAPSULE as directed Orally CICLOPIROX (PENLAC) 8 % SOLUTION APPLY 1 SOLUTION TOPICALLY ONCE DAILY FOR 30 DAYS DILTIAZEM (CARDIZEM CD) 300 MG 24 HR CAPSULE Take 1 (one) capsule (300 mg total) by mouth daily . HYDRALAZINE (APRESOLINE) 100 MG TABLET Take 1 tablet twice a day by oral route for 90 days. LATANOPROST (XALATAN) 0.005 % OPHTHALMIC SOLUTION every night at bedtime . LIOTHYRONINE (CYTOMEL) 5 MCG TABLET Take 2 (two) tablets (10 mcg total) by mouth daily . MAGNESIUM 250 MG TAB Take 1 (one) tablet (250 mg total) by mouth daily with lunch . SIMVASTATIN (ZOCOR) 10 MG TABLET Take 1 (one) tablet (10 mg total) by mouth daily . TIMOLOL (BETIMOL) 0.25 % OPHTHALMIC SOLUTION 1 (one) drop 2 (two) times a day . TIMOLOL (TIMOPTIC) 0.5 % OPHTHALMIC SOLUTION every night at bedtime . XARELTO 20 MG TAB Take 1 (one) tablet (20 mg total) by mouth daily . Modified Medications Modified Medication Previous Medication BUMETANIDE (BUMEX) 1 MG TABLET bumetanide (BUMEX) 1 MG tablet Take 1 (one) tablet (1 mg total) by mouth daily . Take 1 (one) tablet (1 mg total) by mouth daily . Discontinued Medications AMIODARONE (CORDARONE) 200 MG TABLET Take by mouth . Physical Examination BP 90/60 (BP Location: Left arm, Patient Position: Sitting, BP Cuff Size: X-large Adult) Pulse 77 Ht 5' 7 Laboratory I reviewed the results of the following laboratory tests No results found for: GLUCOSE , CALCIUM , NA , K , CL , BUN , CREATININE No results found for: ALT , AST , GGT , ALKPHOS , BILITOT No results found for: WBC , HGB , HCT , MCV , EXTMCV , PLT , RBC No results found for: INR , PROTIME No results found for: CHOL , LDLCALC , LDLDIRECT , TRIG , HDL Creatinine clearance cannot be calculated (No successful lab value found.) Electrocardiogram 06/28/2023 Reviewed, see above. Imaging I reviewed the results of the following imaging tests: Assessment & Plan In summary, Karen Gifford is a very pleasant 88 y.o. female who presents today to [facility] care. The following issues were addressed at today's visit: Persistent atrial fibrillation: Initially diagnosed with persistent atrial fibrillation in November 2021 for which she underwent DCCV on 05/13/2022. She was maintained on flecainide 100 mg BID thereafter, and device interrogation shows a trivial burden of atrial fibrillation <1% since May 2022, with longest episode lasting 1 hour on 05/26/2022. It is documented in outside records that she was started on amiodarone for an increased frequency of atrial fibrillation detected on device checks over the summer of 2022. However, this is not evident on her device check today. Given that she is currently experiencing hair loss and a mild intention tremor since starting amiodarone, today I recommended that she discontinue amiodarone with a period of observation thereafter for any recurrence of atrial fibrillation. If she were to develop a high burden of atrial fibrillation thereafter, then resumption of flecainide would be considered as a rhythm control strategy, although if she is asymptomatic then a rate control would also be reasonable given her advanced age. For now she will remain on atenolol 100 mg daily and Cardizem CD 300 mg daily for rate control, although I recommended that she discuss with her PCP possible dose reduction of her Cardizem in favor of an alternative agent for blood pressure control such as losartan (she has previously had adverse effects related to lisinopril). She would likely only require Cardizem CD 120 mg daily for rate control, which hopefully would allow for some degree on an intrinsic atrial rhythm so as to avoid pacemaker dependency if possible. Regarding the prevention of stroke or systemic thromboembolism, I recommended that she remain on rivaroxaban 20 mg daily indefinitely in the setting of a [id number] score of 5. Sick sinus syndrome status post dual chamber PPM (05/13/2022): Device check performed in the office today shows normal RA and RV lead parameters and normal device function with estimated battery longevity of 8 years, atrial pacing burden 100%, and ventricular pacing burden 9% with programming at DDD-CLS with PAV/SIMON delays of 230/230ms. 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 No programming changes were made today. She prefers to follow in our device clinic longitudinally, and we will therefore arrange for her remote device checks to be transferred to our office every 3 months, with annual in-clinic device check. Hypertension: her blood pressure has been somewhat difficult to control, for which her Cardizem CD was recently increased from 240 mg daily to 300 mg daily. Today she presents a daily blood pressure log since 06/18/2023 which shows blood pressures in the range of 100-160/45-70 mmHg. Today I recommended that she discuss with her PCP possible dose reduction of her Cardizem in favor of an alternative agent for blood pressure control such as losartan (she has previously had adverse effects related to lisinopril). She would likely only require Cardizem CD 120 mg daily for rate control, which hopefully would allow for some degree on an intrinsic atrial rhythm so as to avoid pacemaker dependency if possible. She will otherwise continue on atenolol 100 mg daily and hydralazine 100 mg BID. Heart failure with preserved ejection fraction: She appears euvolemic and well-perfused today on exam. She will continue on bumetanide 1 mg daily. The patient had a number of appropriate questions which were all answered. I will see our patient back in 6 months. Thank you very much for giving me the opportunity to take care of your patient. If you have questions or concerns, please do not hesitate to contact me. Jay Munoz MD Cardiac Electrophysiology I spent a total of 60 minutes in the care of this patient on 06/28/2023. Time was spent reviewing previous notes and test results, obtaining the history and performing the physical exam, ordering medications/tests/procedures, counseling the patient and/or family members, referring and/or communicating with other health tree care foreman, coordinating care, and documenting the above findings. documented in this encounter [facility] 06-28-2023 Instructions Janet Mendoza RN - 06/28/2023 12:44 PM EST Testing Ordered: None Medication Changes: Stop Amiodarone Lab Work Ordered: None To schedule any outpatient testing( if applicable) simply call [phone] and follow the prompts to schedule any outpatient testing. If you have any questions or concerns about today's visit please call Janet POWELL at [phone] documented in this encounter [facility] 06-03-2023 Note Stable Device interrogation q 6 months [facility] 06-03-2023 Note [facility] I-II, Currently pt is euvolemic without exacerbation Continue GDMT- continue bumex- Diuretic therapy Monitor daily weights, I&O, fluid restriction 1.5-2L/day, renal function and electrolytes [facility] 06-03-2023 Note Continue xarelto and amiodarone and atenolol [facility] 06-03-2023 Note Hypertension is elev ated 142/77 Continue atenolol 100mg bid, hydralazine 100 mg tid, bumex 1 mg and will increase diltiazem to 300 mg daily- but pt states she just got new fill of 240 mg and does not want to waste them therefore will give 1 month script for Cardizem 30 mg bid to add to 240 mg daily until this bottle is done and then increase to 300 mg daily. Pt voiced understanding of instructions and will call office if b/p remains > 130/80, or for any concerns [facility] 06-03-2023 Note [facility] CARDIOLOGY PROGR ESS NOTE HPI: Karen Gifford is a 88 y.o. female here for elevated B/P Patient here per Dr. Patel for uncontrolled BP. She presented to [facility] 3 days ago for headache and elevated BP. She blames her elevated BP on amiodarone. Says it was fine before she started it. Denies chest pain, SOB, lightheadedness, palpitations, and bleeding on Xarelto. Says her BP is always elevated before morning medications. Review of Systems HENT: Positive for hearing loss. Respiratory: Positive for cough. Musculoskeletal: Positive for muscle weakness. Neurological: Positive for headaches. All other systems reviewed and are negative. Visit Vitals BP 142/77 (BP Location: Left arm, Patient Position: Sitting) Pulse 73 Ht 1.702 m (5' 7 ) Wt 70.8 kg (156 lb) SpO2 97% BMI 24.43 kg/m??? OB Status Postmenopausal Smoking Status Never BSA 1.83 m??? Allergies Allergen Reactions Isosorbide Other Dry eyes Lisinopril Cough Morphine Other vomit Procardia [Nifedipine] Vasotec [Enalapril Maleate] Medications: Current Outpatient Medications on File Prior to Visit Medication Sig Dispense Refill amiodarone (Pacerone) 200 mg tablet Take 2 tablets (400 mg) by mouth in the morning and at bedtime for 14 days, THEN 1 tablet (200 mg) in the morning. (Patient taking differently: No sig reported) 416 tablet 0 atenolol (Tenormin) 100 mg tablet Take 100 mg by mouth in the morning and at bedtime. bumetanide (Bumex) 1 mg tablet 1 (one) time each day at the same time. hydrALAZINE (Apresoline) 100 mg tablet Take 100 mg by mouth in the morning, at noon, and at bedtime. liothyronine (Cytomel) 5 mcg tablet Take 2 tablets by mouth in the morning. magnesium 250 mg tablet Take 1 tablet by mouth with lunch. simvastatin (Zocor) 10 mg tablet Take 10 mg by mouth at bedtime. timolol (Betimol) 0.25 % ophthalmic solution Administer 1 drop into both eyes in the morning and at bedtime. Xarelto 20 mg tablet TAKE 1 TABLET BY MOUTH EVERY DAY 90 tablet 3 [DISCONTINUED] dilTIAZem CD (Cardizem CD) 120 mg 24 hr capsule Take 240 mg by mouth in the morning. empagliflozin (Jardiance) 25 mg Take 1 tablet (25 mg) by mouth in the morning. (Patient not taking: Reported on 05/06/2023) 30 tablet 11 potassium chloride CR (K-Tab) 20 mEq ER tablet Take 20 mEq by mouth in the morning and at bedtime. Do not crush or chew. [DISCONTINUED] benzonatate (Tessalon) 200 mg capsule TAKE 1 CAPSULE BY MOUTH THREE TIMES DAILY NEEDED FOR COUGH FOR 30 DAYS No current facility-administered medications on file prior to visit. Physical Exam: Constitutional: Appearance: Normal appearance. Without apparent distress HENT: Head: Normocephalic and atraumatic. Nose: Nose normal. Mouth/Throat: Mouth: Mucous membranes are moist. Eyes: Extraocular Movements: Extraocular movements intact. Conjunctiva/sclera: Conjunctivae normal. Neck: Vascular: No JVD. Cardiovascular: Rate and Rhythm: Normal rate and regular rhythm. Pulses: Dorsalis pedis pulses are 3 on the right side and 3on the left side. Posterior tibial pulses are 3 on the right side and 3 on the left side. Heart sounds: Normal heart sounds, S1 normal and S2 normal. Pulmonary: Effort: Pulmonary effort is normal. Breath sounds: Normal breath sounds. Abdominal: General: Bowel sounds are normal. Palpations: Abdomen is soft. Musculoskeletal: General: Normal range of motion. Cervical back: Normal range of motion. Right lower leg: No edema. Left lower leg: No edema. Skin: General: Skin is warm and dry. Capillary Refill: Capillary refill takes less than 2 seconds. Neurological: General: No focal deficit present. Mental Status: She is alert and oriented to person, place, and time. Psychiatric: Mood and Affect: Mood normal. Behavior: Behavior normal. Thought Content: Thought content normal. Judgment: Judgment normal. Labs: 03/16/23 Renal function normal K+ normal 03/09/23 CBC normal Liver function normal Last lab values have been reviewed CV Testin02/22/23 TTE No echocardiogram results found for the past 12 months Assessment/Plan: Hypertensive disorder Hypertension is elevated 142/77 Continue atenolol 100mg bid, hydralazine 100 mg tid, bumex 1 mg and will increase diltiazem to 300 mg daily- but pt states she just got new fill of 240 mg and does not want to waste them therefore will give 1 month script for Cardizem 30 mg bid to add to 240 mg daily until this bottle is done and then increase to 300 mg daily. Pt voiced understanding of instructions and will call office if b/p remains > 130/80, or for any concerns Paroxysmal atrial fibrillation (CMS/HCC) Continue xarelto and amiodarone and atenolol Acute on chronic diastolic (congestive) heart failure (CMS/HCC) [facility] I-II, Currently pt is euvolemic without exacerbation Continue GDMT- continue bumex- Diuretic therapy Monitor daily weights, I&O, fluid restriction 1.5 (more content not included)... [facility] 06-03-2023 Note Patient here per Dr. Patel for uncontrolled BP. She presented to [facility] 3 days ago for headache and elevated BP. She blames her elevated BP on amiodarone. Says it was fine before she started it. Denies chest pain, SOB, lightheadedness, palpitations, and bleeding on Xarelto. Says her BP is always elevated before morning medications. Review of Systems HENT: Positive for hearing loss. Respiratory: Positive for cough. Musculoskeletal: Positive for muscle weakness. Neurological: Positive for headaches. All other systems reviewed and are negative. [facility] 05-31-2023 History of Present illness Narrative REASON FOR VISIT Karen Gifford presents to clinic today for a New Patient visit. Chief Complaint New Patient; Glaucoma HISTORY OF PRESENT ILLNESS HPI Self Referred for Glaucoma eval Patient asked about problems with loss of vision, eye pain/irritation, redness and discharge. The patient denies all except for the following: pt wants to est with new [facility] Doctor OU for about doctor from [place] gave pt 2 corneal abrasions. Last edited by Shanique Ndiaye on 05/31/2023 10:14 AM. Allergies, medications & history reviewed & updated by Shanique Ndiaye REVIEW OF SYSTEMS Review of Systems 20 minutes of face to face time was spent with patient performing the water filtration technician work of this visit. Referring Physician: Hx; 88 yo female with hx of CE done many years ago, also told about having glaucoma at that time. Has been maintained on drops for past several years, she notes that last visit she had abrasions OU so asked to transfer care here. Vision has been doing ok, OS has been more blurred with a little more difficulty reading at this point. Here with daughter today who is establishing care as well. ROS: complete review of systems performed by water filtration technician, reviewed by me. OCT: baseline, good quality, shows moderate inferior thinning OU by GCC and RNFL CCT: thin at 510, 530 Meds: timolol bid OU, latanoprost at bedtime OU A/P 1)POAG: IOP is doing fine on meds at this point, would monitor for stability. RTC In 6 mo's for IOP check and HVF, sooner PRN. 2)PCO: has a moderately dense PCO OS leading to decreased vision there, discussed R/B/A of YAG with her, she would like to proceed. Yag Capsulotomy Operative Report Risks, benefits and alternatives of a Yag capsulotomy were reviewed, including but not limited to: decrease or loss of vision, glare/subjective visual disturbance, increased IOP, inflammation, retinal detachment, bleeding, and need for additional procedures. Karen Gifford understands the treatment and is ready to proceed. The Informed Consent was signed. Procedure: Yag Capsulotomy in the left eye Surgeon: Abimbola Chacon M.D. Pre-Operative drops: Alphagan Anesthesia: Topical (Proparacaine/Tetracaine) YAG: Power: 3.2 mJ # of shots: 20 Total energy: 64 mJ The patient tolerated the procedure without complications. PLAN: 1. Post Laser Medications: None 2. Follow-Up: as scheduled Postoperative instructions were given including the medications as well as a follow-up appointment. Karen Gifford was instructed to contact the office with any questions/concerns or the [facility] on-call for ocular emergencies after hours documented in this encounter [facility] 05-06-2023 Note [facility] Electrophys[facility] Consult Note Reason for visit: Hospital follow-up s/p PPM for SND following DCCV. 05/06/23 patient was recently seen by Zhao CHICAS recent hospitalization for heart failure. she was diuresed and subsequently felt much better. device check performed in January had revealed A-fib episodes lasting up to 53 minutes. Device check on 04/12/23 reveals more episodes of AF with 62 mode switched and longest of 1hr. Sheis Apced 94% of time and Vpaced 53%. Echocardiogram done 02/22/2023 which showed normal LVEF 62%, mild concentric LVH, LA severely dilated, RA severely dilated, RV mildly dilated, and IVC was moderately dilated measuring 2.5 cm --results indicative of volume overload HPI: Karen Gifford is a 88 y.o. year with PMH of hypertension, hyperlipidemia, LANEY was recently diagnosed with atrial fibrillation following a Holter monitor that was ordered by her PCP. She wore a holter monitor ordered by her PCP d/t feeling an irregular heart beat and was feeling tired. She under went DCCV but had profound bradycardia and underwent dual chamber PPM. 2 years ago she had an episode of confusion and not know where she was/what was going on. She reports this was in the setting of multiple episodes of vomiting/dehydration/having COVID. She was started her on plavix for questionable CVA/TIA and stopped when she was started on Xarelto. She reports going in and out of Afib and fatigued with exertion. She denies CP, dyspnea, orthopnea, PND, dizziness/LH, syncope, bleeding issues, LE swelling. EKG 04/13/22 Afib 02/17/2022 shows A. fib with varying intervals Echocardiogram performed at [facility] on 12/25/2021 showed EF of 55 to 60% with moderate to severe TR and mildly elevated right-sided pressures with mild to moderate MR and mild AR Nuclear stress test that was done on 03/22/2022 showed an EF that was normal with no evidence of any perfusion defect suggestive of ischemia Holter monitor for 7 days from 12/09/2021 to 12/16/2021 revealed chronic atrial fibrillation PMHx: a.fib, GERD, HTN, LANEY, HLD FMHx: mother - hx RI ETOH: denies Tobacco: denies Illicit drugs: denies Diet: occasional caffeine intake ------- PMH: Past Medical History: Diagnosis Date A-fib ([facility]) CVA (cerebral vascular accident) ([facility]) GERD (gastroesophageal reflux disease) Hyperlipidemia Hypertension LANEY (obstructive sleep apnea) Osteoarthritis PSH: Past Surgical History: Procedure Laterality Date APPENDECTOMY CARPAL TUNNEL RELEASE CHOLECYSTECTOMY HYSTERECTOMY SH: Social Determinants of Health Tobacco Use: Unknown (12/29/2022) Patient History Smoking Tobacco Use: Never Smokeless Tobacco Use: Unknown Passive Exposure: Not on file Alcohol Use: Not on file Financial Resource Strain: Not on file Food Insecurity: Not on file Transportation Needs: Not on file Physical Activity: Not on file Stress: Not on file Social Connections: Not on file Intimate Partner Violence: Not on file Depression: Not on file Housing Stability: Not on file Allergies: Allergies Allergen Reactions Isosorbide Other Dry eyes Lisinopril Cough Morphine Other vomit Weight: 70.3kg Visit Vitals BP 126/60 Pulse 60 Ht 1.702 m (5' 7 ) Wt 70.3 kg (155 lb) SpO2 97% BMI 24.28 kg/m??? OB Status Postmenopausal Smoking Status Never BSA 1.82 m??? Meds: Current Outpatient Medications on File Prior to Visit Medication Sig Dispense Refill atenolol (Tenormin) 100 mg tablet Take 100 mg by mouth in the morning and at bedtime. bumetanide (Bumex) 1 mg tablet 1 (one) time each day at the same time. dilTIAZem CD (Cardizem CD) 120 mg 24 hr capsule Take 240 mg by mouth in the morning. flecainide (Tambocor) 100 mg tablet Take 1 tablet (100 mg) by mouth in the morning and at bedtime. 180 tablet 3 hydrALAZINE (Apresoline) 100 mg tablet Take 100 mg by mouth in the morning, at noon, and at bedtime. liothyronine (Cytomel) 5 mcg tablet Take 2 tablets by mouth in the morning. potassium chloride CR (K-Tab) 20 mEq ER tablet Take 20 mEq by mouth in the morning and at bedtime. Do not crush or chew. rivaroxaban (Xarelto) 20 mg tablet Take 1 tablet (20 mg) by mouth in the evening. Take with food. 90 tablet 3 simvastatin (Zocor) 10 mg tablet Take 10 mg by mouth at bedtime. benzonatate (Tessalon) 200 mg capsule TAKE 1 CAPSULE BY MOUTH THREE TIMES DAILY NEEDED FOR COUGH FOR 30 DAYS empagliflozin (Jardiance) 25 mg Take 1 tablet (25 mg) by mouth in the morning. (Patient not taking: Reported on 05/06/2023) 30 tablet 11 magnesium 250 mg tablet Take 1 tablet by mouth with lunch. timolol (Betimol) 0.25 % ophthalmic solution Administer 1 drop into both eyes in the morning and at bedtime. No current facility-administered medications on file prior to visit. ROS: Cardio Basic Cardiovascular Symptoms: no lightheade (more content not included)... [facility] 03-09-2023 Note Patient here for [facility] for CHF. She was seen as inpatient consult on 02/25 by Zhao Brewster CNP. She had BNP and BMP this morning. Denies chest pain and SOB. Feels much better. Review of Systems Respiratory: Positive for cough. Musculoskeletal: Positive for muscle weakness. Neurological: Positive for weakness. [facility] 03-09-2023 Note [facility]rophys[facility] Consult Note Reason for visit: Hospital follow-up, HFpEF, A-fib HPI: Karen Gifford is a 87 y.o. year old here for hospital follow-up s/p decompensated HFpEF Patient was being seen by oral hygienist and was noted to be volume overloaded which he recommended admission for. Patient decided she would go home instead of going to ER and her shortness of breath continued to get worse so she returned to the ER couple days later. She was diuresed with IV Bumex and had noted effusions on x-ray so she was treated for community-acquired pneumonia. She diuresed almost 8 L. She has been feeling much better since discharge with no lower extremity edema and denies any shortness of breath or URIBE. She was on Lasix previously and will switch to Bumex 1 mg per my recommendation on SR inpatient. ECG while inpatient showed AV paced rhythm, her device check back in January 2023 showed an episode of A-fib for 53 minutes but no RVR was noted She had echo done 02/22/2023 which showed normal LVEF 62%, mild concentric LVH, LA severely dilated, RA severely dilated, RV mildly dilated, and IVC was moderately dilated measuring 2.5 cm --results indicative of volume overload She has been feeling well since discharge with no complaints of CP, palpitations, lightheadedness, dizziness, URIBE, LE edema Previous per dr. Hollingsworth 04/2022 HPI: Karen Gifford is a 87 y.o. year old with medical history of hypertension, hyperlipidemia, LANEY was recently diagnosed with atrial fibrillation following a Holter monitor that was ordered by her PCP. She wore a holter monitor ordered by her PCP d/t feeling an irregular heart beat and was feeling tired. She reports 2 years ago she had an episode of confusion and not know where she was/what was going on. She reports this was in the setting of multiple episodes of vomiting/dehydration/having COVID. She was started her on plavix for questionable CVA/TIA and stopped when she was started on Xarelto. She reports going in and out of Afib and fatigued with exertion. She denies CP, dyspnea, orthopnea, PND, dizziness/LH, syncope, bleeding issues, LE swelling. EKG 04/13/22 Afib 02/17/2022 shows A. fib with varying intervals Echocardiogram performed at [facility] on 12/25/2021 showed EF of 55 to 60% with moderate to severe TR and mildly elevated right-sided pressures with mild to moderate MR and mild AR Nuclear stress test that was done on 03/22/2022 showed an EF that was normal with no evidence of any perfusion defect suggestive of ischemia Holter monitor for 7 days from 12/09/2021 to 12/16/2021 revealed chronic atrial fibrillation PMHx: a.fib, GERD, HTN, LANEY, HLD FMHx: mother - hx RI ETOH: denies Tobacco: denies Illicit drugs: denies Diet: occasional caffeine intake ------- PMH: Past Medical History: Diagnosis Date A-fib ([facility]) CVA (cerebral vascular accident) ([facility]) GERD (gastroesophageal reflux disease) Hyperlipidemia Hypertension LANEY (obstructive sleep apnea) Osteoarthritis PSH: Past Surgical History: Procedure Laterality Date APPENDECTOMY CARPAL TUNNEL RELEASE CHOLECYSTECTOMY HYSTERECTOMY SH: Social Determinants of Health Tobacco Use: Unknown (12/29/2022) Patient History Smoking Tobacco Use: Never Smokeless Tobacco Use: Unknown Passive Exposure: Not on file Alcohol Use: Not on file Financial Resource Strain: Not on file Food Insecurity: Not on file Transportation Needs: Not on file Physical Activity: Not on file Stress: Not on file Social Connections: Not on file Intimate Partner Violence: Not on file Depression: Not on file Housing Stability: Not on file Allergies: Allergies Allergen Reactions Isosorbide Other Dry eyes Lisinopril Cough Morphine Other vomit Weight: 74.4kg Visit Vitals BP 130/65 (BP Location: Left arm, Patient Position: Sitting) Pulse 70 Ht 1.702 m (5' 7 ) Wt 74.4 kg (164 lb) SpO2 96% BMI 25.69 kg/m??? OB Status Postmenopausal Smoking Status Never BSA 1.88 m??? Meds: Current Outpatient Medications on File Prior to Visit Medication Sig Dispense Refill atenolol (Tenormin) 100 mg tablet Take 100 mg by mouth in the morning and at bedtime. benzonatate (Tessalon) 200 mg capsule TAKE 1 CAPSULE BY MOUTH THREE TIMES DAILY NEEDED FOR COUGH FOR 30 DAYS bumetanide (Bumex) 1 mg tablet 1 (one) time each day at the same time. dilTIAZem CD (Cardizem CD) 120 mg 24 hr capsule Take 240 mg by mouth in the morning. flecainide (Tambocor) 100 mg tablet Take 1 tablet (100 mg) by mouth in the morning and at bedtime. 180 tablet 3 hydrALAZINE (Apresoline) 100 mg tablet Take 100 mg by mouth in the morning, at noon, and at bedtime. liothyronine (Cytomel) 5 mcg tablet Take 2 tablets by mouth in the morning. magnesiu (more content not included)... [facility] 12-29-2022 Note Patient is here toda y for a one month follow up Review of Systems Constitutional: Positive for weight gain. HENT: Positive for hearing loss. Cardiovascular: Positive for irregular heartbeat. Patient states she not sure if its irregular heart beats or shortness of breath Respiratory: Positive for cough, shortness of breath and sleep disturbances due to breathing. Musculoskeletal: Positive for back pain. All other systems reviewed and are negative. [facility] 12-29-2022 Note Cardiovascular Medic [facility] SUBJECTIVE HPI Karen Gifford is a 87 y.o. female here for follow-up. She c/o increase in SOB. PMHx: a.fib, sinus node dysfunction s/p PPM, GERD, HTN, LANEY, HLD, CPAP, hx COVID 06/2020 After we last saw her, we had tried to start her on spironolactone 25mg daily for her diastolic dysfunction and elevated right sided pressures. She did not tolerate this and had side effect of dizziness. We switched her to lasix 40mg daily. Follow-up BMP initially showed elevated kidney function, labs done on 12/27/22 showed kidney function improved. She reports that her breathing is unchanged. She gets significant SOB with ambulating more than 40 feet. She is no longer feeling SOB when she lays down. She denies CP, palpitations, leg swelling, bleeding issues, syncope. Past Medical History: Diagnosis Date A-fib ([facility]) CVA (cerebral vascular accident) ([facility]) GERD (gastroesophageal reflux disease) Hyperlipidemia Hypertension LANEY (obstructive sleep apnea) Osteoarthritis Patient Active Problem List Diagnosis Paroxysmal atrial fibrillation ([facility]) Sinus pause S/P placement of cardiac pacemaker Gastroesophageal reflux disease Hypertensive disorder Obstructive sleep apnea syndrome Osteoarthritis No family history on file. Social History Tobacco Use Smoking status: Never Allergies Allergen Reactions Isosorbide Other Dry eyes Lisinopril Cough Morphine Other vomit Review of Systems Constitutional: Positive for weight gain. HENT: Positive for hearing loss. Cardiovascular: Positive for irregular heartbeat. Patient states she not sure if its irregular heart beats or shortness of breath Respiratory: Positive for cough, shortness of breath and sleep disturbances due to breathing. Musculoskeletal: Positive for back pain. All other systems reviewed and are negative. OBJECTIVE Medications: Current Outpatient Medications: atenolol (Tenormin) 100 mg tablet, Take 100 mg by mouth in the morning and at bedtime., Disp: , Rfl: bisacodyl (Dulcolax) 5 mg EC tablet, Take 5 mg by mouth if needed each day for constipation. Do not crush, chew, or split., Disp: , Rfl: dilTIAZem CD (Cardizem CD) 120 mg 24 hr capsule, Take 120 mg by mouth in the morning., Disp: , Rfl: flecainide (Tambocor) 100 mg tablet, Take 1 tablet (100 mg) by mouth in the morning and at bedtime., Disp: 180 tablet, Rfl: 3 furosemide (Lasix) 40 mg tablet, Take 1 tablet (40 mg) by mouth in the morning., Disp: 90 tablet, Rfl: 3 hydrALAZINE (Apresoline) 100 mg tablet, Take 100 mg by mouth in the morning, at noon, and at bedtime., Disp: , Rfl: hydroCHLOROthiazide (HYDRODiuril) 50 mg tablet, Take 50 mg by mouth in the morning. Take 1/2 tablet then full tablet every other day, Disp: , Rfl: latanoprost, PF, 0.005 % drops, Administer 1 drop into affected eye(s) in the morning. In each eye, Disp: , Rfl: magnesium 250 mg tablet, Take 1 tablet by mouth with lunch., Disp: , Rfl: olmesartan (BENIcar) 40 mg tablet, Take 40 mg by mouth in the morning., Disp: , Rfl: potassium chloride CR (K-Tab) 20 mEq ER tablet, Take 20 mEq by mouth in the morning. Do not crush or chew., Disp: , Rfl: predniSONE (Deltasone) 10 mg tablet, Take 10 mg by mouth in the morning., Disp: , Rfl: rivaroxaban (Xarelto) 20 mg tablet, Take 1 tablet (20 mg) by mouth in the evening. Take with food., Disp: 90 tablet, Rfl: 3 simvastatin (Zocor) 10 mg tablet, Take 10 mg by mouth at bedtime., Disp: , Rfl: spironolactone (Aldactone) 25 mg tablet, Take 1 tablet (25 mg) by mouth in the morning., Disp: 30 tablet, Rfl: 11 timolol (Betimol) 0.25 % ophthalmic solution, Administer 1 drop into both eyes in the morning and at bedtime., Disp: , Rfl: Physical Exam Vitals reviewed. Constitutional: Appearance: Normal appearance. She is normal weight. HENT: Head: Normocephalic and atraumatic. Right Ear: External ear normal. Left Ear: External ear normal. Eyes: Extraocular Movements: Extraocular movements intact. Conjunctiva/sclera: Conjunctivae normal. Pupils: Pupils are equal, round, and reactive to light. Neck: Vascular: No carotid bruit. Cardiovascular: Rate and Rhythm: Normal rate and regular rhythm. Pulses: Normal pulses. Heart sounds: Normal heart sounds. Pulmonary: Effort: Pulmonary effort is normal. Abdominal: General: Bowel sounds are normal. Palpations: Abdomen is soft. Musculoskeletal: Cervical back: Neck supple. Right lower leg: No edema. Left lower leg: No edema. Skin: General: Skin is warm and dry. Neurological: General: No focal deficit present. Mental Status: She is alert and oriented to person, place, and time. Psychiatric: Mood and Affect: Mood normal. Behavior: Behavior normal. Thought Content: Thought content normal. Judgment: Judgment normal. Labs: 12/27/2022 Cr 0.93, BUN 18, K 4.2, Na 136, GFR 57 12/01/2022 Hgb 11.5, plt 228, WBC 7. (more content not included)... [facility] 12-10-2022 Note bmp [facility] 11-18-2022 Note Review of Systems Respiratory: Positive for shortness of breath. All other systems reviewed and are negative. [facility] 11-18-2022 Note Cardiovascular Medic [facility] SUBJECTIVE HPI Karen Gifford is a 87 y.o. female here for follow-up. She c/o increase in SOB. PMHx: a.fib, sinus node dysfunction s/p PPM, GERD, HTN, LANEY, HLD, CPAP, hx COVID 06/2020 She had worsening SOB when we had initially seen her back in February,. She was newly diagnosed with a.fib. She underwent stress test and ECHO - stress test was negative for ischemia and her ECHO showed mildly elevated right sided pressures. She underwent a cardioversion and subsequently needed a PPM for sinus node dysfunction/sinus pauses. Her breathing after that had improved. It now feels worse than it did last year. She feels like she cannot exert herself very much without getting SOB. She is scheduled for a device check next month. She denies c/o CP, dyspnea at rest, orthopnea, PND, dizziness/LH, palpitations, leg swelling. She does report a 20lb weight gain in the past 6 months - she states after she had COVID she lost her sense of taste. 6 months ago her taste returned and she feels she has put on weight ever since then as everything tastes good and she is eating more. Past Medical History: Diagnosis Date A-fib ([facility]) CVA (cerebral vascular accident) ([facility]) GERD (gastroesophageal reflux disease) Hyperlipidemia Hypertension LANEY (obstructive sleep apnea) Osteoarthritis Patient Active Problem List Diagnosis Paroxysmal atrial fibrillation ([facility]) Sinus pause S/P placement of cardiac pacemaker No family history on file. Social History Tobacco Use Smoking status: Never Allergies Allergen Reactions Isosorbide Other Dry eyes Lisinopril Cough Morphine Other vomit Review of Systems Respiratory: Positive for shortness of breath. All other systems reviewed and are negative. OBJECTIVE Medications: Current Outpatient Medications: atenolol (Tenormin) 100 mg tablet, Take 100 mg by mouth in the morning and at bedtime., Disp: , Rfl: bisacodyl (Dulcolax) 5 mg EC tablet, Take 5 mg by mouth if needed each day for constipation. Do not crush, chew, or split., Disp: , Rfl: dilTIAZem CD (Cardizem CD) 120 mg 24 hr capsule, Take 120 mg by mouth in the morning., Disp: , Rfl: flecainide (Tambocor) 100 mg tablet, Take 1 tablet (100 mg) by mouth in the morning and at bedtime., Disp: 180 tablet, Rfl: 3 hydrALAZINE (Apresoline) 100 mg tablet, Take 100 mg by mouth in the morning, at noon, and at bedtime., Disp: , Rfl: hydroCHLOROthiazide (HYDRODiuril) 50 mg tablet, Take 50 mg by mouth in the morning. Take 1/2 tablet then full tablet every other day, Disp: , Rfl: latanoprost, PF, 0.005 % drops, Administer 1 drop into affected eye(s) in the morning. In each eye, Disp: , Rfl: magnesium 250 mg tablet, Take 1 tablet by mouth with lunch., Disp: , Rfl: olmesartan (BENIcar) 40 mg tablet, Take 40 mg by mouth in the morning., Disp: , Rfl: potassium chloride CR (K-Tab) 20 mEq ER tablet, Take 20 mEq by mouth in the morning. Do not crush or chew., Disp: , Rfl: predniSONE (Deltasone) 10 mg tablet, Take 10 mg by mouth in the morning., Disp: , Rfl: rivaroxaban (Xarelto) 20 mg tablet, Take 1 tablet (20 mg) by mouth in the evening. Take with food., Disp: 90 tablet, Rfl: 3 simvastatin (Zocor) 10 mg tablet, Take 10 mg by mouth at bedtime., Disp: , Rfl: timolol (Betimol) 0.25 % ophthalmic solution, Administer 1 drop into both eyes in the morning and at bedtime., Disp: , Rfl: spironolactone (Aldactone) 25 mg tablet, Take 1 tablet (25 mg) by mouth in the morning., Disp: 30 tablet, Rfl: 11 Physical Exam Vitals reviewed. Constitutional: Appearance: Normal appearance. She is normal weight. HENT: Head: Normocephalic and atraumatic. Right Ear: External ear normal. Left Ear: External ear normal. Eyes: Extraocular Movements: Extraocular movements intact. Conjunctiva/sclera: Conjunctivae normal. Pupils: Pupils are equal, round, and reactive to light. Neck: Vascular: No carotid bruit. Cardiovascular: Rate and Rhythm: Normal rate and regular rhythm. Pulses: Normal pulses. Heart sounds: Normal heart sounds. Pulmonary: Effort: Pulmonary effort is normal. Breath sounds: Examination of the left-upper field reveals wheezing. Wheezing (inspiratory) present. Abdominal: General: Bowel sounds are normal. Palpations: Abdomen is soft. Musculoskeletal: Cervical back: Neck supple. Right lower leg: No edema. Left lower leg: No edema. Skin: General: Skin is warm and dry. Neurological: General: No focal deficit present. Mental Status: She is alert and oriented to person, place, and time. Psychiatric: Mood and Affect: Mood normal. Behavior: Behavior normal. Thought Content: Thought content normal. Judgment: Judgment normal. Labs: 11/04/22 CBC - WBC 13, hgb 12, plt 216 BMP - Cr 0.79, BUN 20, K 3.9, GFR >60, Na 136 NTproBNP - 479 Testing/Procedures: ECHO (11/04/22) 1. Mild LVH, normal LVEF = 65% 2. RV (more content not included)... [facility] 03-22-2022 Note CARDIAC STRESS TEST Requesting Physician: Procedure Date:03/22/2022 INDICATION: Abnormal EKG METHOD: After risks, benefits and alternatives were explained, written informed consent was obtained. The patient was connected to the appropriate hemodynamic and electrocardiographic monitoring. Lexiscan 0.4 mg was infused intravenously. The patient was monitored for the standard duration. She was to be transferred to the Nuclear Lab for imaging. She tolerated the procedure well. There were no complications. FINDINGS: HEMODYNAMICS: Resting heart rate was 71 beats per minute, increasing to a maximum of 90 beats per minute. Resting blood pressure was 148/68, decreasing to 108/56. The patient had no significant symptoms during the test. ELECTROCARDIOGRAPHY: Rest EKG: Atrial fibrillation, 69 beats per minute, right bundle branch block. Abnormal EKG. During infusion and recovery: No significant ST-T wave changes noted, no significant arrhythmia seen. FINAL IMPRESSIONS: 1. No ischemic EKG changes seen on Lexiscan Pharmacological Stress Test. 2. Nuclear images are to be read, interpreted and reported in a separate dictation. [facility] 02-17-2021 Note Chief Complaint referral for rectal bleeding HPI Staff 85 year old female presents on consultation from Dr. Patel for one time episode of abdominal cramping, diarrhea and bloody tissue after wiping. Not currently experiencing symptoms. Last colonoscopy 07/30/15. History of Present Illness 85 yo female with h/o htn, TIA, on Plavix, aortic insufficiency and mitral regurgitation; reports episode of crampy lower abdominal pain and loose stools approximately 1 month ago; small amounts of blood passed at times and pink on toilet paper; now resolved, normal bms, no further episodes of diarrhea; had similar episode 6 months ago; patient had colonoscopy 5 years ago and was wnl; abdominal surgery significant for cholecystectomy; denies asa or NSAID use, just Plavix daily; no fmhx of GI malignancy or IBD. Review of Systems ROS - Provider Constitutional: no fever, no sweats, no weight loss. Eyes: no glasses, no blurred vision, no visual loss. ENMT: no dentures, no hoarseness, no swallowing difficulties, no hearing loss, no ear infection(s), no nose bleeds. Cardiovascular: normal blood pressure, no chest pain, regular heartbeat, no heart murmur. Respiratory: no shortness of breath, no cough, no asthma, no wheezing. Gastrointestinal: no nausea, no vomiting, no diarrhea, no constipation, no blood in stool, no change in bowel habits, no abdominal pain, no hepatitis. Genitourinary: no kidney stones, no urine infection, no dysuria. Musculoskeletal: no pain, no weakness. Skin: no changing moles, no rash, no skin lumps. Neurologic: no seizures, no epilepsy, no headache. Psychiatric: no emotional or psychiatric problem. Heme/Lymph: no bleeding problems, no anemia, no blood clots, no transfusions. Allergy/Immunologic: no swollen lymph nodes/glands, no IV drug abuse. Other: Additional ROS info: Except as noted in the above Review of Systems and in the History of Present Illness, all other systems have been reviewed and are negative or noncontributory. Physical Exam Vitals & Measurements T: 36.6 ?C (Temporal Artery) HR: 68(Peripheral) RR: 16 BP: 132/60 HT: 170 cm HT: 170.0 cm WT: 71.2 kg WT: 71.2 kg BMI: 24.64 HEENT: normal conjunctiva, sclera clear, no scleral icterus, EOM intact, PERRLA, oral mucosa moist without lesions. Neck: trachea midline, no mass, symmetric, no thyromegaly or nodules, no adenopathy Respiratory: lungs CTA, respirations non labored. Cardiovascular: regular rate and rhythm, no murmur, no pedal edema or varicosities. Gastrointestinal: soft, non distended, no tenderness, no masses, no palpable hernias, diastasis recti no, no hepatosplenomegaly; normal bs Musculoskeletal: normal gait, digits and nails without infection, nodes, cyanosis, clubbing. Skin: no rashes, no lesions, no ulcers, no subcutaneous nodules, induration. Psychiatric/Neuro: oriented to time, place, person, judgement normal, affect appropriate for age, insight intact, no focal deficits. Tests: review of old records completed, Discussed surgical options, risks, and possible complications with patient. Assessment/Plan 1. BRBPR (bright red blood per rectum) (K62.5: Hemorrhage of anus and rectum) limited and now resolved; on Plavix with normal colonoscopy 5 years ago; can be explained by irritation from loose stools; if continues or blood in stool with explanation, would recommend repeat colonoscopy; call with problems/questions. Follow-up No qualifying data available Problem List/Past Medical History Ongoing Aortic insufficiency Basal cell carcinoma BMI 24.0-24.9, adult BRBPR (bright red blood per rectum) Cataract DJD (degenerative joint disease) Dyspnea Epidermal inclusion cyst HTN (hypertension) Mitral regurgitation LANEY (obstructive sleep apnea) Osteopenia Sebaceous cyst Syncope TIA on medication Tricuspid regurgitation Ventricular hypertrophy Historical Abdominal hysterectomy Laparoscopic cholecystectomy Procedure/Surgical History Arthroscopy of knee, Cholecystectomy, Dilatation and curettage, Tonsillectomy and adenoidectomy. Medications atenolol 100 mg Tab, 100 mg= 1 tab(s), Oral, BID hydrALAZINE 50 mg Tab, 50 mg= 1 tab(s), Oral, TID hydrochlorothiazide 25 mg Tab, 25 mg= 1 tab(s), Oral, Daily latanoprost ophthalmic 0.005% solution, 1 drop(s), OPTH, Once a day (at bedtime) Norvasc 5 mg Tab, 5 mg= 1 tab(s), Oral, Daily olmesartan 40 mg Tab, 40 mg= 1 tab(s), Oral, Daily Plavix 75 mg Tab, 75 mg= 1 tab(s), Oral, Daily potassium chloride 10 mEq Cap-ER, 10 mEq= 1 cap(s), Oral, BID simvastatin 10 mg Tab, 10 mg= 1 tab(s), Oral, Once a day (at bedtime) Timolol Maleate (Eqv-Istalol) 0.5% ophthalmic solution Allergies Procardia (Unknown) Vasotec (Unknown) Zestril (Unknown) sulfa drugs (Unknown) Social History Tobacco Never (less than 100 in lifetime) Tobacco Use:. Never Smokeless Tobacco Use:., 02/17/2021 Family History Alzheimer's disease: Brother. Hypertension: Mother. Mitral valve (more content not included)... [facility] Comment on above: Result Comment: Elec tronically Signed By: CAITLIN CORDON, Avtar Siegel\elvia\Date and Time Signed: 02/17/21 14:39 EDT Evaluation note Diagnosis Primary open-angle glaucoma, bilateral, indeterminate stage- Primary PCO (posterior capsular opacification), left After-cataract, unspecified [facility] Diagnosis PAF (paroxysmal atrial fibrillation) (HCC)- Primary Atrial fibrillation [facility] Diagnosis PAF (paroxysmal atrial fibrillation) (HCC)- Primary Atrial fibrillation 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 SSS (sick sinus syndrome) ([facility]) Sinoatrial node dysfunction Hypertension, unspecified type Heart failure with preserved ejection fraction, unspecified HF chronicity ([facility]) [facility] Diagnosis Primary open-angle glaucoma, bilateral, indeterminate stage- Primary [facility] Diagnosis PAF (paroxysmal atrial fibrillation) (HCC)- Primary Atrial fibrillation 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 documented in this encounter [facility] Summary Purpose Family History No Family History Records FoundNo Family History Records FoundNo Family History Records FoundNo Family History Records FoundNo Family History Records FoundNo Family History Records FoundNo Family History Records FoundNo Family History Records Found Advance Directives Documents on File Type Date Recorded 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 Advance Directives and Livin g Will 06/28/2023 12:40 PM Documents on File Type Date Recorded 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 Advance Directives and Livin g Will 06/28/2023 12:40 PM Reason for Referral Specialty Diagnoses / Procedures Referred By Contac t Referred To Contact Cardiology Diagnoses PAF (paroxysmal atrial fibrillation) (HCC) Procedures ECG 12 lead Jay Munoz MD [address] [facility] [address] [place] [address] Referral ID Status Reason Start Date Expiration Date V isits Requested Visits Authorized [id number] Authorized 06/23/2023 06/22/2024 1 1 Specialty Diagnoses / Procedures Referred By Contac t Referred To Contact Cardiology Diagnoses PAF (paroxysmal atrial fibrillation) (HCC) Presence of cardiac pacemaker Procedures ECG 12 lead Jay Munoz MD [address] [place] [address] Referral ID Status Reason Start Date Expiration Date V isits Requested Visits Authorized [id number] Authorized 02/02/2024 02/01/2025 4 4 Additional Source Comments INFORMATION SOURCE (unrecogn ized section and content) DATE CREATED AUTHOR 02/18/2021 [facility] DATE CREATED AUTHOR AUTHOR'S ORGANIZ ATION 12/28/2022 [facility] DATE CREATED AUTHOR AUTHOR'S ORGANIZ ATION 03/10/2023 [facility] DATE CREATED AUTHOR AUTHOR'S ORGANIZ ATION 06/16/2023 [facility] DATE CREATED AUTHOR AUTHOR'S ORGANIZ ATION 06/29/2023 [facility] DATE CREATED AUTHOR AUTHOR'S ORGANIZ ATION 12/02/2023 [facility] DATE CREATED AUTHOR AUTHOR'S ORGANIZ ATION 12/10/2023 [facility] DATE CREATED AUTHOR AUTHOR'S ORGANIZ ATION 01/04/2024 [facility] EPIC Reason for Visit (unrecogniz ed section and content) Reason Comments New Patient Glaucoma Reason Comments Follow-up Care Teams (unrecognized sec tion and content) Canvas Repairer Relationship Specialty Start Date End Date Vincenzo Patel MD [address] [place] [phone] PCP - General Family Medicine 05/31/23 Sean Redman DO [address] [place] [address] Dr [place] [id number] Ophthalmology 05/31/23 Canvas Repairer Relationship Specialty Start Date End Date Vincenzo Patel MD [address] [place] [address] PCP - General Family Medicine 06/15/23 Canvas Repairer Relationship Specialty Start Date End Date Vincenzo Patel MD [address] [place] [address] PCP - General Family Medicine 06/15/23 Jay Munoz MD [address] [address] Cardiac Electrophysiology 06/28/23 Canvas Repairer Relationship Specialty Start Date End Date Vincenzo Patel MD [address] [place] [address] PCP - General Family Medicine 06/15/23 Jay Munoz MD [address] [address] Cardiac Electrophysiology 06/28/23 FOR RECORDS PERTAINING TO PATIENTS WHO ARE OR HAVE BEEN ENROLLED IN A CHEMICAL DEPENDENCY/SUBSTANCEABUSE PROGRAM, SOME INFORMATION MAY BE OMITTED. This clinical summary was aggregated from multiple sources. Caution should be exercised in using it in the provision of clinical care. This summary normalizes information from multiple sources, and as a consequence, information in this document may materially change the coding, format and clinical context of patient data. In addition, data may be omitted in some cases. CLINICAL DECISIONS SHOULD BE BASED ON THE PRIMARY CLINICAL RECORDS. [facility] [employer] [facility]. provides no warranty or guarantee of the accuracy or completeness of information in this document.
[2024-03-07] MEDS: RIVAROXABAN 10 MG TABLET 20 MG PO (23:51)
[2024-03-08] VITALS (22 sets, daily range): BP systolic 85–112; BP diastolic 51–72; PULSE 92–118; TEMP 36.3–36.6; O2SAT 92–97
[2024-03-08] MEDS: ACETAMINOPHEN 325 MG TABLET 650 MG PO (01:44)
[2024-03-08] MEDS: LIOTHYRONINE SODIUM 5 MCG TABLET 10 MCG PO (05:35)
[2024-03-08 05:38] LABS: Basophils Percent Auto 0.3 % (0.2-2.0); Eosinophils Percent Auto 0.4 % (0.9-7.0); Hematocrit 25.1 % (36.0-48.0); Hemoglobin 7.8 g/dL (12.0-16.0); Immature Granulocytes Abs Auto 0.07 10^3/uL (0.00-0.03); Immature Granulocytes Pct Auto 0.6 % (0.0-0.5); Lymphocytes Percent Auto 17.8 % (20.5-60.0); Mean Corpuscular HGB Conc 31.1 g/dL (29.9-35.2); Mean Corpuscular Hemoglobin 22.7 pg (26.7-34.0); Mean Corpuscular Volume 73.2 fL (81.0-99.0); Mean Platelet Volume 9.1 fL (9.5-13.5); Monocytes Absolute Auto 1.4 10^3/uL (0.3-0.8); Monocytes Percent Auto 12.5 % (1.7-12.0); Neutrophils Absolute Auto 7.5 10^3/uL (1.4-6.5); Neutrophils Percent Auto 68.4 % (43.0-75.0); Platelet Count 282 10^3/uL (150-450); Red Blood Count 3.43 10^6/uL (4.20-5.40); Red Cell Distribution Width 17.8 % (11.0-15.0)
[2024-03-08 05:53] LABS: Alanine Aminotransferase 297 U/L (14-59); Albumin Globulin Ratio 0.6; Albumin Level 2.4 g/dL (3.4-5.0); Alkaline Phosphatase 103 U/L (46-116); Anion Gap 13.7; Aspartate Amino Transferase 335 U/L (15-37); BUN Creatinine Ratio 23.1; Bilirubin Total 0.4 mg/dL (0.2-1.0); Calcium 8.8 mg/dL (8.5-10.1); Carbon Dioxide 27.5 mmol/L (21.0-32.0); Chloride 91 mmol/L (98-107); Estimated GFR (African America 41 (>=60); Estimated GFR (Non-African Ame 34 (>=60); Globulin 4.2 g/dL; Glucose 127 mg/dL (74-106); Potassium 4.2 mmol/L (3.5-5.1); Sodium 128 mmol/L (136-145); Total Protein 6.6 g/dL (6.4-8.2)
--- NOTE | 2024-03-08 07:11 | CA_ITS ---
Patient Name: DEBORA GIFFORD MR#: [id number] : 1935 Exam Date: 03/08/2024 Ordering Doctor: DR Billy Patel . ECHOCARDIOGRAM REPORT PROCEDURE: CA ECHO DOPPLER COMPLETE INDICATIONS: Dyspnea COMPARISON: None. DESCRIPTION: COMPLETE ECHOCARDIOGRAM Real-time transthoracic echocardiography with 2D, M-mode, spectral and color flow Doppler performed. QUALITY: Technical quality was good. LEFT VENTRICLE: Normal chamber size. Normal left ventricular wall thickness. LV EF: Global left ventricular systolic function is normal; visually estimated ejection fraction is 55 to 60%. No significant wall motion abnormalities. DIASTOLIC: Not adequately assessed due to heart rhythm. ATRIAL SEPTUM: Inadequately seen. LEFT ATRIUM: Normal chamber size. RIGHT ATRIUM: Normal chamber size. RIGHT VENTRICLE: Normal chamber size. Normal systolic function. Pacer wire present. TRICUSPID VALVE: Normal mobility and thickness. Moderate regurgitation. No evidence of pulmonary hypertension. RVSP 34 mmHg MITRAL VALVE: Normal mobility and thickness. No evidence of mitral valve stenosis. There is no mitral annular calcification. Mild mitral regurgitation. AORTIC VALVE: Normal trileaflet appearance. Mildly calcified aortic valve. Normal leaflet mobility. No evidence of aortic valve stenosis. Trivial aortic regurgitation. AORTIC ROOT: Normal diameter and appearance. PULMONIC VALVE: Normal thickness and mobility. No stenosis. No regurgitation. PERICARDIUM: There is a small to moderate anterior and large posterior pericardial effusion (3.5 cm). No right ventricular compression. Doppler velocities across the mitral valve are suggestive of early tamponade physiology. IVC: Not well visualized. PLEURA: If there is a left pleural effusion seen CONCLUSION: 1. Global left ventricular systolic function is normal; visually estimated ejection fraction is 55 to 60% 2. Normal right ventricular size and systolic function 3. Moderate tricuspid regurgitation 4. Mild mitral regurgitation 5. There is a small to moderate anterior pericardial effusion and a large posterior pericardial effusion; Doppler velocities across the mitral valve are suggestive of early tamponade physiology - clinical correlation is needed 6. A left pleural effusion is seen. Adult Echocardiography Procedure Report Left Ventricle LVEDD (3.7 - 5.6 cm): 4.09 cm LVESD (2.2 - 4.0 cm): 2.58 cm LVIVS thickness (0.6 - 1.2 cm): 1.15 cm LVPW thickness (0.5 - 1.0 cm): 0.97 cm LVOT Max Gradient: 3.51 mm[Hg], 2.72 mm[Hg], 3.40 mm[Hg] LVOT Area (cm2): 0.89 m/s Peak Velocity (LVOT): 0.94 m/s, 0.82 m/s, 0.92 m/s Mean Velocity (LVOT): 0.60 m/s LVOT Diameter 2.22 cm Left Atrium LA Volume Index (2D A2C): 36.31 ml/m2 Left Atrium Systolic Dimension: 3.68 cm Mitral Valve Mitral Valve E-Wave Peak Velocity: 0.77 m/s Right Ventricle Aorta AO Root Diam: 2.65 cm Aortic Valve AoV Area (Peak Rivas): 3.75 cm2, 3.75 cm2, 3.63 cm2 Peak Velocity(Antegrade Flow): 0.97 m/s, 0.88 m/s Peak Gradient(Antegrade Flow): 3.74 mm[Hg], 3.10 mm[Hg] Tricuspid Valve Peak Velocity (Regurgitant Flow): 2.68 m/s, 2.46 m/s, 2.37 m/s, 2.71 m/s Pulmonic Valve Peak Velocity: 0.76 m/s Peak Gradient: 1.73 mm[Hg], 3.79 mm[Hg], 1.73 mm[Hg] Right Atrium Right Atrium Systolic Pressure: 37.93 ml, 37.93 ml Dictated by: Tiera Heaton M.D. on 03/08/2024 at 10:33 Approved by: Tiera Heaton M.D. on 03/08/2024 at 10:44
[2024-03-08 07:38] LABS: C Reactive Protein 12.09 mg/dL (<=0.50)
[2024-03-08 07:48] LABS: Magnesium 1.9 mg/dL (1.8-2.4)
[2024-03-08 07:53] LABS: Free T3 0.82 pg/mL (2.18-3.98); Thyroid Stimulating Hormone 3.037 uIU/mL (0.358-3.740); Troponin I High Sensitivity 12.2 pg/mL (4.0-51.3)
--- NOTE | 2024-03-08 07:59 | CM.NOTE ---
Important Message from Medicare reviewed and discussed with patient. Pt. verbalized understanding and signed the form. Original given to patient and copy placed in patient?s chart.
--- NOTE | 2024-03-08 08:11 | P.HP_ITS ---
HPI H&P: HPI History of Present Illness Chief complaint: SOB PLEURAL EFFUSION PERICARD EFFUSION Narrative: Patient well-known to me from office care for number of years, presented to the emergency room with increasing shortness of breath. In ER workup and CTA confirmed moderate-sized bilateral pleural effusion but large pericardial effusion. 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 Workup is just getting started. Patient admitted to the ICU, no bed available currently at transferring facility When I saw patient up in intensive care unit, she was resting comfortably in bed she did have some mild conversational dyspnea. Earlier biggest issue is with ambulation, gets very dyspneic. Does have cough during the evaluation. Nonproductive sounding. Denies abdominal pain. Opioid HPI Opioid Management Most Recent Pain and Opioid Data: Last Pain Scale 6 03/08/24 01:44 Last Pain Intensity 0 02/26/23 09:21 Last Pain Assessment 03/08/24 00:00 Last ED Pain Assessment 03/07/24 15:13 Last MAR Pain Assessment 03/08/24 03:26 Last ORT Total Score 0 03/07/24 21:54 Last ORT Risk Category Low Risk 03/07/24 21:54 Review of Systems ROS Status of ROS 10 or more systems reviewed and unremark able except as noted in history and below Constitutional Denies: fever or chills [facility] Medical History (Updated 03/08/24 @ 04:35 by Eloisa Rock) Hypothyroid ?E03.9 - Hypothyroidism, unspecified (ICD-10) Pulmonary infiltrates ?R91.8 - Other nonspecific abnormal finding of lung field (ICD-10) Atelectasis ?J98.11 - Atelectasis (ICD-10) Pulmonary nodule ?R91.1 - Solitary pulmonary nodule (ICD-10) Ovarian cancer ?C56.9 - Malignant neoplasm of unspecified ovary (ICD-10) Atherosclerosis ?I70.90 - Unspecified atherosclerosis (ICD-10) Spondylosis ?M47.9 - Spondylosis, unspecified (ICD-10) Normal colonoscopy Afib ?I48.91 - Unspecified atrial fibrillation (ICD-10) Pacemaker ?Z95.0 - Presence of cardiac pacemaker (ICD-10) Breath shortness ?R06.02 - Shortness of breath (ICD-10) Surgical History (Updated 02/24/23 @ 15:08 by Reyna Gutiérrez) H/O arthroscopic knee surgery ?Z98.890 - Other specified postprocedural states (ICD-10) Hx of cholecystectomy ?Z90.49 - Acquired absence of other specified parts of digestive tract (ICD- 10) H/O: hysterectomy ?Z90.710 - Acquired absence of both cervix and uterus (ICD-10) Family History (Updated 03/07/24 @ 22:31 by Eloisa Rock) Father Family history of CHF (congestive heart failure) Family history of cancer Mother Family history of diabetes mellitus Family history of hypertension Family history of stroke Social History (Updated 03/07/24 @ 22:32 by Eloisa Rock) Within the past year, how often did you have a drink containing alcohol: never Score interpretation: A score less than 3 is consistent with normal alcohol consumption. Smoking status: Never smoker Non-prescribed substance use: denies use Highest level of school completed/degree received: Associate degree: occupational, technical, vocational program Are you now , , , , never or living with a partner: In a typical week, how many times do you talk on the telephone with family, friends, or neighbors: 3 or more times per week How often do you get together with friends or relatives: 3 or more times per week Do you belong to any clubs or organizations such as spiritism groups unions, [employer] or athletic groups, or school groups: no Little interest or pleasure in doing things: not at all Feeling down, depressed, or hopeless: not at all Feel stressed/tense/nervous/anxious/difficulty sleeping: not at all Do you think of yourself as: straight/heterosexual Gender Identity: female Meds Home Medications and Allergies Home Medications ?Medication ?Instructions ?Recorded ?Confirmed ?Type albuterol sulfate 2.5 mg/3 mL 2.5 mg inhalation Q6H PRN 02/21/23 03/07/24 History (0.083 %) solution for nebulization shortness of breath or wheezing atenolol 100 mg tablet 100 mg PO BID 02/21/23 03/07/24 History latanoprost 0.005 % eye drops 1 drp ophthalmic (eye) QPM 02/21/23 03/07/24 History liothyronine 5 mcg tablet 10 mcg PO DAILY 02/21/23 03/07/24 History rivaroxaban 20 mg tablet (Xarelto) 20 mg PO .evening 02/21/23 03/07/24 History simvastatin 10 mg tablet 10 mg PO QPM 02/21/23 03/07/24 History hydralazine 100 mg tablet 100 mg PO TID 02/22/23 03/07/24 History magnesium 250 mg tablet 250 mg PO .dinner 02/22/23 03/07/24 History timolol maleate 0.5 % eye drops 1 drp ophthalmic (eye) Q12H 02/22/23 03/07/24 History bumetanide 1 mg tablet 1 mg PO QD 30 days #30 tabs 02/27/23 03/07/24 Rx diltiazem HCl 300 mg 300 mg PO Q24H 03/07/24 03/07/24 History capsule,extended release 24 hr levofloxacin 750 mg tablet 750 mg PO Q24H 03/08/24 03/08/24 History Allergies Allergy/AdvReac Type Severity Reaction Status Date / Time Sulfa (Sulfonamide Allergy Severe Unknown Verified 03/07/24 10:18 Antibiotics) channel blockers Allergy Severe Headache Uncoded 03/07/24 10:18 Exam Constitutional Vital Signs, click to edit/add: Last Vital Signs Temp 97.4 F L 03/08/24 07:16 Pulse 99 H 03/08/24 07:16 Resp 20 03/08/24 07:30 BP 112/72 03/08/24 07:16 Pulse Ox 92 L 03/08/24 07:16 O2 Del Method Room Air 03/08/24 05:00 Documenting provider has reviewed patient's vital signs: yes Common normals: apparent distress (Mild conversational dyspnea) Chest Common normals: inspection of chest normal and palpation of chest normal Respiratory Common normals: abnormal respiratory effort (Mild conversational dyspnea, difficult taking deep breath) Auscultation: diminished lung sounds and egophony (Bilateral lower lobes) lower bilaterally Cardio Common normals: irregular rate and irregular rhythm Palpation: abnormal PMI Rate: tachycardic GI Common normals: Normal to inspection, nondistended, normoactive bowel sounds present, soft to palpation and non-tender Extremity Common normals: normal to inspection, full ROM and normal capillary refill Results Labs Labs: Short CBC 03/07/24 03/08/24 Range/Units 10:47 05:34 WBC 11.1 H 11.0 (4.0-11.0) 10^3/uL Hgb 8.7 L 7.8 L (12.0-16.0) g/dL Hct 28.6 L 25.1 L (36.0-48.0) % Plt Count 305 282 (150-450) 10^3/uL BMP 03/07/24 03/08/24 10:47 05:34 Sodium 127 L 128 L Potassium 3.8 4.2 Chloride 89 L 91 L Carbon Dioxide 29.7 27.5 BUN 22.0 H 34.0 H Creatinine 1.01 1.47 H Glucose 188 H 127 H Calcium 9.1 8.8 Liver Function 03/07/24 03/08/24 Range/Units 10:47 05:34 Total Bilirubin 0.5 0.4 (0.2-1.0) mg/dL AST 22 335 H (15-37) U/L ALT 30 297 H (14-59) U/L Alkaline Phosphatase 78 103 (46-116) U/L Albumin 2.6 L 2.4 L (3.4-5.0) g/dL Assessment and Plan Assessment and Plan (1) Pericardial effusion, acute: (2) Headache: (3) PAF (paroxysmal atrial fibrillation): (4) CHF (congestive heart failure): (5) Hypertension: (6) COPD (chronic obstructive pulmonary disease): (7) Hypothyroid: (8) Ovarian cancer: Plan Admission findings: Atrial fibrillation with rapid ventricular response, respiratory distress, hypotension, positive lactate, hyponatremia, leukocytosis now with elevated liver function test in the acute renal failure(baseline creatinine 0.83, 1.47 this morning, that is 177.1% above baseline) with bilateral pleural effusion and large pericardial effusion likely malignant with a recent presumptive diagnosis of ovarian cancer (ovarian cyst with an elevated CEA) resulting in severe sepsis (tachycardia, respiratory distress, lactic acidosis, mild leukocytosis with left shift consistent with bacterial process, presumptive infectious etiology of UTI). UA is pending. Placed order for as needed Levophed, patient high risk for cardiovascular collapse based on severe pericardial effusion Suspected ovarian cancer: Patient had ultrasound done which showed cystic area on ovary, CEA obtained which showed elevation. No tissue diagnosis is been obtained as the workup is just getting started. Pleural effusion with large pericardial effusion likely malignant-try patient on colchicine and Solu-Medrol pending transfer for further definitive therapy. Echo pending, skip NSAIDs based on elevated creatinine Suspected UTI with positive lactate and mild leukocytosis with left shift consistent with bacterial process-start patient on antibiotics Cipro and Rocephin. Hyponatremia-this is likely related to her fluid status overall, will hold off on aggressive hydration with large pericardial effusion and moderately large pleural effusions. Patient currently not hypoxic. Acute renal failure as outlined above-baseline creatinine 0.83, 1.47 this morning, but is 177.1% above baseline-this is likely related to low flow state from hypotension overnight, again with pericardial and pleural effusions holding off on aggressive fluid resuscitation. Held off on NSAIDs for the pericardial effusion based on elevated creatinine Elevated liver function test-they were normal on admission, elevated this morning, denies abdominal tenderness. Likely passive hepatic congestion secondary to hypotension and possibly reduced cardiac output, echo pending. Hold off on abdominal ultrasound pending transfer. And with lack of symptoms Mild elevation in protein likely related to anticoagulants for atrial fibrillation, will repeat labs due to elevation in liver profile Atrial fibrillation with mild rapid response-heart rate overall improved. Would consider this fairly stable hold off on further management, could consider digoxin to improve rate control. Moderate protein calorie malnutrition-diet management-n.p.o. this morning awaiting transfer. Acute upper gastrointestinal bleeding resulting acute upper gastritis intestinal blood loss anemia-IV Protonix twice daily, repeat CBC later today may need transfusion Npkwbagvajzeix-aawbooq-yfywt levels, possible alternate etiology for the pericardial effusion History of hypomagnesemia-level somewhat low yesterday, normal. But on the low side, will repeat today. Hypercholesterolemia-continue with home medications History of hypertension-taking multiple medications at significant doses but will hold off currently based on hypotension from the severe sepsis as outlined above Mild COPD without acute exacerbation-she does have a slight cough but that is her normal-as needed albuterol treatments Constipation-add lactulose CODE STATUS-patient is DNR-cc-a Admission status: Patient with acute onsets of pleural effusion and large pericardial effusion possibly malignant with a presumptive diagnosis of ovarian cancer based on ultrasound evidence and elevated CEA-medically necessary treatment will span 2 midnights. Inpatient status.
[2024-03-08] MEDS: POLYETHYLENE GLYCOL 3350 17 GM POWDER PACKET PO (08:16)
[2024-03-08] MEDS: PANTOPRAZOLE SODIUM 40 MG VIAL IV (08:16)
[2024-03-08] MEDS: BUMETANIDE 1 MG TABLET PO (08:17)
[2024-03-08 08:23] LABS: Lactate/Lactic Acid 2.2 mmol/L (0.4-2.0)
[2024-03-08] MEDS: METHYLPREDNISOLONE SOD SUCC PF 40 MG/ML VIAL IVP ×2 (08:24→13:54)
[2024-03-08] MEDS: TIMOLOL MALEATE 0.5% OP SOL 100 DROPS/5 ML BOTTLE 1 DROP OP (08:24)
[2024-03-08] MEDS: COLCHICINE 0.6 MG TABLET 1.2 MG PO (08:28)
--- NOTE | 2024-03-08 08:29 | P.DS_ITS ---
DS: Providers Provider Date of admission: 03/07/24 21:37 Primary care physician: Billy Patel MD Consults: 03/08/24 07:14 Consult to Cardiology Routine Reason for consultation: pericardial effusion, hypotension DS: Diagnosis Discharge Diagnosis (1) Pericardial effusion, acute: Assessment and plan: With mild pericardial tamponade (2) Headache: (3) PAF (paroxysmal atrial fibrillation): (4) CHF (congestive heart failure): (5) Hypertension: (6) COPD (chronic obstructive pulmonary disease): Plan Admission findings: Atrial fibrillation with rapid ventricular response, respiratory distress, hypotension, positive lactate, hyponatremia, leukocytosis now with elevated liver function test in the acute renal failure(baseline creatinine 0.83, 1.47 this morning, that is 177.1% above baseline) with bilateral pleural effusion and large pericardial effusion likely malignant with a recent presumptive diagnosis of ovarian cancer (ovarian cyst with an elevated CEA) resulting in severe sepsis (tachycardia, respiratory distress, lactic acidosis, mild leukocytosis with left shift consistent with bacterial process, presumptive infectious etiology of UTI). UA is pending. Placed order for as needed Levophed, patient high risk for cardiovascular collapse based on severe pericardial effusion Suspected ovarian cancer: Patient had ultrasound done which showed cystic area on ovary, CEA obtained which showed elevation. No tissue diagnosis is been obtained as the workup is just getting started. Pleural effusion with large pericardial effusion likely malignant-try patient on colchicine and Solu-Medrol pending transfer for further definitive therapy. Echo pending, skip NSAIDs based on elevated creatinine Suspected UTI with positive lactate and mild leukocytosis with left shift consistent with bacterial process-start patient on antibiotics Cipro and Rocephin. Hyponatremia-this is likely related to her fluid status overall, will hold off on aggressive hydration with large pericardial effusion and moderately large pleural effusions. Patient currently not hypoxic. Acute renal failure as outlined above-baseline creatinine 0.83, 1.47 this morning, but is 177.1% above baseline-this is likely related to low flow state from hypotension overnight, again with pericardial and pleural effusions holding off on aggressive fluid resuscitation. Held off on NSAIDs for the pericardial effusion based on elevated creatinine Elevated liver function test-they were normal on admission, elevated this morning, denies abdominal tenderness. Likely passive hepatic congestion secondary to hypotension and possibly reduced cardiac output, echo pending. Hold off on abdominal ultrasound pending transfer. And with lack of symptoms Mild elevation in protein likely related to anticoagulants for atrial fibrillation, will repeat labs due to elevation in liver profile Atrial fibrillation with mild rapid response-heart rate overall improved. Would consider this fairly stable hold off on further management, could consider digoxin to improve rate control. Moderate protein calorie malnutrition-diet management-n.p.o. this morning awaiting transfer. Acute upper gastrointestinal bleeding resulting acute upper gastritis intestinal blood loss anemia-IV Protonix twice daily, repeat CBC later today may need transfusion Qzvftpttfdbehr-fugtywq-htqhz levels, possible alternate etiology for the pericardial effusion History of hypomagnesemia-level somewhat low yesterday, normal. But on the low side, will repeat today. Hypercholesterolemia-continue with home medications History of hypertension-taking multiple medications at significant doses but will hold off currently based on hypotension from the severe sepsis as outlined above Mild COPD without acute exacerbation-she does have a slight cough but that is her normal-as needed albuterol treatments Constipation-add lactulose CODE STATUS-patient is DNR-cc-a Admission status: Patient with acute onsets of pleural effusion and large pericardial effusion possibly malignant with a presumptive diagnosis of ovarian cancer based on ultrasound evidence and elevated CEA-medically necessary treatment will span 2 midnights. Inpatient status. DS: Summary Hospital Course Hospital Course: Patient who is currently undergoing workup for elevated CEA and ovarian cyst, suspicious for ovarian cancer, presented to the emergency room with acute shortness of breath. Found to have large pericardial effusion, moderate pleural effusion, hypotension, severe sepsis with possible infectious source of UTI, started on antibiotics, when echocardiogram showed mild pericardial tamponade, elevated BNP progressively worse, acute renal failure progressively worse, patient was transferred to tertiary care facility for acute care, likely needs invasive cardiology. Patient to be transferred to the [facility]. I will see patient in the office at discharge for follow-up. Time Spent with Patient Time attestation: Total time spent providing and/or coordinating discharge services: Exam Constitutional Vital Signs, click to edit/add: Last Vital Signs Temp 97.4 F L 03/08/24 07:16 Pulse 99 H 03/08/24 07:16 Resp 20 03/08/24 07:30 BP 112/72 03/08/24 07:16 Pulse Ox 92 L 03/08/24 07:16 O2 Del Method Room Air 03/08/24 05:00 Documenting provider has reviewed patient's vital signs: yes Common normals: apparent distress (Mild conversational dyspnea) Chest Common normals: inspection of chest normal and palpation of chest normal Respiratory Common normals: abnormal respiratory effort (Mild conversational dyspnea, difficult taking deep breath) Auscultation: diminished lung sounds and egophony (Bilateral lower lobes) lower bilaterally Cardio Common normals: irregular rate and irregular rhythm Palpation: abnormal PMI Rate: tachycardic GI Common normals: Normal to inspection, nondistended, normoactive bowel sounds present, soft to palpation and non-tender Extremity Common normals: normal to inspection, full ROM and normal capillary refill DS: Data Data Completed and Pending Labs on day of discharge: Labs from last 24 hours 03/08/24 03/08/24 03/07/24 07:33 05:34 12:27 WBC 11.0 RBC 3.43 L Hgb 7.8 L Hct 25.1 L MCV 73.2 L MCH 22.7 L MCHC 31.1 RDW 17.8 H Plt Count 282 MPV 9.1 L Neut % (Auto) 68.4 Lymph % (Auto) 17.8 L Platte % (Auto) 12.5 H Eos % (Auto) 0.4 L Baso % (Auto) 0.3 Neut # (Auto) 7.5 H Lymph # (Auto) 2.0 Platte # (Auto) 1.4 H Eos # (Auto) 0.0 Baso # (Auto) 0.0 Abs Immat Gran (auto) 0.07 H Imm/Tot Granulo (auto) 0.6 H PT INR D-Dimer Sodium 128 L Potassium 4.2 Chloride 91 L Carbon Dioxide 27.5 Anion Gap 13.7 BUN 34.0 H Creatinine 1.47 H Est GFR ( Amer) 41 L Est GFR (Non-Af Amer) 34 L BUN/Creatinine Ratio 23.1 Glucose 127 H Lactate 2.2 H* 3.1 H* Calcium 8.8 Magnesium 1.9 Total Bilirubin 0.4 AST 335 H ALT 297 H Alkaline Phosphatase 103 Troponin I High Sens 12.2 C-Reactive Protein 12.09 H NT-Pro-B Natriuret Pep 6857.0 H* Total Protein 6.6 Albumin 2.4 L Globulin 4.2 Albumin/Globulin Ratio 0.6 TSH 3.037 Thyroxine (T4) 8.10 Free T3 0.82 L Stool Occult Blood 03/07/24 03/07/24 11:20 10:47 WBC 11.1 H RBC 3.85 L Hgb 8.7 L Hct 28.6 L MCV 74.3 L MCH 22.6 L MCHC 30.4 RDW 17.9 H Plt Count 305 MPV 8.6 L Neut % (Auto) 77.0 H Lymph % (Auto) 11.3 L Platte % (Auto) 9.8 Eos % (Auto) 0.9 Baso % (Auto) 0.5 Neut # (Auto) 8.5 H Lymph # (Auto) 1.3 Platte # (Auto) 1.1 H Eos # (Auto) 0.1 Baso # (Auto) 0.1 Abs Immat Gran (auto) 0.05 H Imm/Tot Granulo (auto) 0.5 PT 13.4 H INR 1.30 D-Dimer 2.43 H* Sodium 127 L Potassium 3.8 Chloride 89 L Carbon Dioxide 29.7 Anion Gap 12.1 BUN 22.0 H Creatinine 1.01 Est GFR ( Amer) >60 Est GFR (Non-Af Amer) 52 L BUN/Creatinine Ratio 21.8 Glucose 188 H Lactate 2.5 H* Calcium 9.1 Magnesium 1.8 Total Bilirubin 0.5 AST 22 ALT 30 Alkaline Phosphatase 78 Troponin I High Sens 25.3 C-Reactive Protein NT-Pro-B Natriuret Pep Total Protein 7.3 Albumin 2.6 L Globulin 4.7 Albumin/Globulin Ratio 0.6 TSH Thyroxine (T4) Free T3 Stool Occult Blood Positive A Discharge Plan Discharge Disposition: er Acute Care Hospital Discharge Location: [facility]
[2024-03-08] MEDS: 0.9 % SODIUM CHLORIDE 1,000 ML 50 ML IV (08:30)
[2024-03-08] MEDS: LIOTHYRONINE SODIUM 5 MCG TABLET 15 MCG PO (08:30)
[2024-03-08] MEDS: ONDANSETRON PF 4 MG/2 ML VIAL IV (08:33)
[2024-03-08] MEDS: LEVOFLOXACIN IN DEXTROSE 5 % 750 MG/150 ML IV.SOLN 100 MG IV (08:39)
[2024-03-08] MEDS: ACETAMINOPHEN 500 MG TABLET 1000 MG PO (09:10)
--- NOTE | 2024-03-08 09:50 | CM.NOTE ---
Plan to transfer to [facility] once bed available.
[2024-03-08 10:18] LABS: Hematocrit 25.7 % (36.0-48.0); Mean Corpuscular HGB Conc 31.1 g/dL (29.9-35.2); Mean Corpuscular Hemoglobin 22.7 pg (26.7-34.0); Platelet Count 290 10^3/uL (150-450); Red Blood Count 3.52 10^6/uL (4.20-5.40); Red Cell Distribution Width 17.8 % (11.0-15.0); White Blood Count 9.3 10^3/uL (4.0-11.0)
[2024-03-08 10:34] LABS: INR 1.58
[2024-03-08 10:40] LABS: Lactate/Lactic Acid 2.2 mmol/L (0.4-2.0)
[2024-03-08] MEDS: CEFTRIAXONE 1,000 MG in 0.9 % SODIUM CHLORIDE 50 ML 100 MG IV (11:06)
== END 2024-03-08 14:57 | disposition short-term general hospital (02) | DRG 871 ==
LOC: ER 18:08 → ICU 21:40
PROVIDERS: Emergency Medicine; Registered Nurse; Admitting Provider Family Medicine; Emergency Provider Emergency Medicine; PCP Family Medicine; Visit Provider Family Medicine
DX: A41.9 Sepsis, unspecified organism (principal); K29.01 Acute gastritis with bleeding; E87.1 Hypo-osmolality and hyponatremia; N17.9 Acute kidney failure, unspecified; N39.0 Urinary tract infection, site not specified; C56.9 Malignant neoplasm of unspecified ovary; E44.0 Moderate protein-calorie malnutrition; D62 Acute posthemorrhagic anemia; J44.1 Chronic obstructive pulmonary disease with (acute) exacerbation; J91.0 Malignant pleural effusion; I31.4 Cardiac tamponade; I31.31 Malignant pericardial effusion in diseases classified elsewhere; R65.20 Severe sepsis without septic shock; Z95.0 Presence of cardiac pacemaker; Z90.49 Acquired absence of other specified parts of digestive tract; Z90.710 Acquired absence of both cervix and uterus; I48.0 Paroxysmal atrial fibrillation; E03.9 Hypothyroidism, unspecified; R51.9 Headache, unspecified; I11.0 Hypertensive heart disease with heart failure; I50.9 Heart failure, unspecified; J44.9 Chronic obstructive pulmonary disease, unspecified; R06.03 Acute respiratory distress; E78.00 Pure hypercholesterolemia, unspecified; K59.00 Constipation, unspecified; Z66 Do not resuscitate; Z68.25 Body mass index [BMI] 25.0-25.9, adult
CPT/HCPCS: 36415; 71045; 71046; 71275; 80053; 81001; 83605; 83735; 83880; 84436; 84443; 84481; 84484; 85025; 85027; 85378; 85610; 86140; 87040; 87086; 93005; 93306; 94667; 94761; 96365; 96366; 96367; 96375; 96376; 99285; G0328; J0456; J0696; J2405; J2919; Q9967

== ENCOUNTER 2024-03-22 08:49 | Outpatient (RCR) | payer MEDICARE, OTHER, SELFPAY | END 2024-04-14 23:59 | disposition home or self-care (01) | LOC: HEMC 08:49 | PROVIDERS: PCP Family Medicine; Visit Provider Internal Medicine Hematology & Oncology | DX: R19.09 Other intra-abdominal and pelvic swelling, mass and lump (principal); D64.9 Anemia, unspecified; Z95.0 Presence of cardiac pacemaker; I48.91 Unspecified atrial fibrillation; Z79.01 Long term (current) use of anticoagulants | CPT/HCPCS: G0463 ==

== ENCOUNTER 2024-03-27 11:58 | Outpatient (OUT) | payer MEDICARE, OTHER, SELFPAY ==
--- OUTSIDE RECORDS SUMMARY | 2024-03-27 12:06 | XMS_ITS | CCD ---
Author Organization [facility] CliniSysd Care Team Providers Care Dishwashing Machine Repairer Name Role Phone MELONYY ., DR LOYA Primary Care Unavailable LORI, [...] ., DR LOYA Admlonnie Unavailable ZIEBER, DR DK Siegel Consulting Unavailable HOY ., DR LOYA Primary Care Unavailable CHILANGO SANDOVAL Attending Unavailable LORI, CHILANGO Admitting Unavailable HOY ., DR LOYA Consulting Unavailable AMARILLO, DR JAY Santillan Consulting Unavailable LORI, CHILANGO [...] Unavailable HOY ., DR LOYA Attending Unavailable NORMAN ., DR LOYA Primary Care Unavailable VINCENZO AUSTIN Primary Care Unavailable ZHAO PEDERSEN Referring Unavailable Vincenzo Austin MD Primary Care Provider Feroz Sean SIMS Unavailable Vincenzo Austin MD Primary Care Provider Jay Guerra MD Unavailable VINCENZO AUSTIN Referring Unavailable VINCENZO AUSTIN Primary Care Unavailable JAY GUERRA Attending Unavailable ABIMBOLA CHACON Attending Unavailable SELF, SELF Referring Unavailable VINCENZO AUSTIN Primary Care Unavailable ABIMBOLA CHACON Attending Unavailable SELF, SELF Referring Unavailable VINCENZO AUSTIN Primary Care Unavailable SIMONE CAMPOVERDE Attending Unavailable VINCENZO AUSTIN Primary Care Unavailable SIMONE CAMPOVERDE Attending Unavailable VIVIANZEINA UrbanY Attending Unavailable SU, JAMI Referring Unavailable TIFFANI ABBASI Attending Unavailable ARMEN, JJ Attending Unavailable ARMEN JJ Referring Unavailable SU, JAMI Referring Unavailable SANAULLAH, ADY Referring Unavailable SU, JAMI Referring Unavailable SU, JAMI Referring Unavailable SU, JAMI Referring Unavailable SU, JAMI Referring Unavailable SU, JAMI Referring Unavailable SU, JAMI Referring Unavailable UNKNOWN, UNKNOWN Referring Unavailable HORANI, KRYSTIN Admitting Unavailable ORQUIDEA, KOFI Attending Unavailable Allergies Allergy Classification Reported Allergen(s) Allergy Type Date of Onset Reaction(s) Facility (1 source) Enalapril Drug Allergy 5 [facility] Repository (4 sources) Isosorbide; Translations: [ISOSORBIDE] Drug Allergy 0 [facility] Repository (1 source) NIFEdipine Drug Allergy 5 [facility] Repository (2 sources) Calcium Channel Blockers Propensity to adverse reactions to drug 3 [facility] (2 sources) Enalapril Drug Allergy 3 [facility] (5 sources) Enalapril; Translations: [ENALAPRIL MALEATE] Drug Allergy 3 Unknown [facility] (2 sources) Isosorbide Drug Allergy 0 Other (See Comments) [facility] (5 sources) Lisinopril; Translations: [LISINOPRIL] Drug Allergy 2 Other (See Comments) [facility] (5 sources) Morphine; Translations: [MORPHINE] Drug Allergy 2 Other (See Comments) [facility] (5 sources) NIFEdipine; Translations: [NIFEDIPINE] Drug Allergy 5 Unknown [facility] (4 sources) Sulfonamides (Antibiotic); Translations: [SULFA (SULFONAMIDE ANTIBIOTICS)] Propensity to adverse reactions to drug 3 Unknown [facility] (4 sources) Calcium Channel Blocking Agents-Dihydropy ridines; Translations: [CALCIUM CHANNEL BLOCKING AGENTS-DIHYDROPY RIDINES] Propensity to adverse reactions to drug 3 Unknown [facility] (1 source) dapagliflozin; Translations: [DAPAGLIFLOZIN] Drug Allergy 4 [facility] Repository Medications Current Medications Medication Drug Class(es) Dates Sig (Normalized) Sig (Original) albuterol 0.83 mg/ml inhalation solution (2 sources) beta2-Adrenergi c Agonist Start: 02-16-2023 take 3 mL by inhalation every six hours as needed albuterol (PROVENTIL) 2.5 mg /3 mL (0.083 %) nebulizer solution 3 mL as needed Inhalation every 6 hrs 0 02/16/2023 Active atenolol 100 mg oral tablet (4 sources) beta-Adrenergic Cole Start: 05-04-2023 take 1 tablet by mouth [...] release oral capsule (4 sources) Calcium Channel Cole Start: 04-26-2023 Diltiazem 180 MG Cap SR [...] tablet (4 sources) HMG-CoA Reductase Inhibitor Start: 05-29-2023 take 1 tablet by mouth once daily simvastatin (ZOCOR) 10 MG tablet Take 1 (one) tablet (10 mg total) by mouth daily . 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, left eye] 05-31-2023 Chronic Conduction disorders (8 sources) Cardiac pacemaker in situ; Translations: [Presence of cardiac pacemaker] Onset: 04-12-2023 06-28-2023 Chronic Congestive heart failure; nonhypertensive (12 sources) Unspecified diastolic (congestive) heart failure; Translations: [Acute combined systolic (congestive) and diastolic (congestive) heart failure] Onset: 12-06-2022 Chronic Disorders of lipid metabolism (2 sources) Pure hypercholesterolemia , unspecified; Translations: [Hyperlipidemia, unspecified] Onset: 09-06-2022 Chronic Essential hypertension (7 sources) Hypertensive disorder; Translations: [Essential (primary) hypertension] Onset: 12-29-2022 06-28-2023 Chronic Fluid and electrolyte disorders (1 source) Hypokalemia; Translations: [HYPOKALEMIA] Onset: 10-07-2022 Episodic Glaucoma (4 sources) Primary open angle glaucoma; [...] PRIMARY OVARIAN FAILURE] Onset: 08-27-2022 Chronic Other lower respiratory disease (4 sources) Shortness of breath; Translations: [SHORTNESS OF BREATH] Onset: 11-04-2022 Episodic Thyroid disorders (5 sources) Hypothyroidism, unspecified; Translations: [HYPOTHYROIDISM UNSPECIFIED] Onset: 11-11-2022 Chronic Unclassified (3 sources) LOW BACK PAIN, UNSPECIFIED; Translations: [LOW BACK PAIN, UNSPECIFIED] Onset: 08-31-2022 Unclassified (1 source) PERSONAL HISTORY OF COVID-19; Translations: [PERSONAL HISTORY OF COVID-19] Onset: 05-25-2022 Unclassified (1 source) Other pericardial effusion (noninflammatory); Translations: [Other pericardial effusion (noninflammatory)] Onset: 03-08-2024 Past or Other Problems Problem Classification Problem Date Documented Date Episodic/Chronic Administrative/social admission (4 sources) Encounter for other administrative examinations; Translations: [ENCOUNTER OTH ADMIN EXAMINATIONS] Onset: 09-01-2022 Episodic Deficiency and other anemia (1 source) Anemia, unspecified; Translations: [ANEMIA UNSPECIFIED] Onset: 09-06-2022 Episodic Diabetes mellitus without complication (2 sources) Impaired fasting glucose; Translations: [Other abnormal glucose] Onset: 09-06-2022 Episodic Malaise and fatigue (1 source) Other fatigue; Translations: [OTHER FATIGUE] Onset: 09-06-2022 Episodic Other aftercare (1 source) 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 No family history on file Reason for Visit and Comments: HF inpatient satisfaction survey sent. [Other] Normal [facility] 30on 03-15-2024 30 Problem: Pain - Adul t Goal: Verbalizes/displays adequate comfort level or baseline comfort level Outcome: Progressing Flowsheets (Taken 03/15/2024 0820) Verbalizes/displays adequate comfort level or baseline comfort level: Assess pain using appropriate pain scale Encourage patient to monitor pain and request assistance Administer analgesics based on type and severity of pain and evaluate response Implement non-pharmacological measures as appropriate and evaluate response Problem: Safety - Adult Goal: Free from fall injury Outcome: Progressing Flowsheets (Taken 03/15/2024 0820) Free from fall injury: Assess patient frequently for physical needs Identify cognitive and physical deficits and behaviors that affect risk of falls [place] fall precautions as indicated by assessment Educate patient/family on patient safety, including physical limitations Instruct patient to call for assistance with activity based on assessment Modify environment to reduce risk of injury Consider OT/PT consult to assist with strengthening/mobility Problem: Discharge Planning Goal: Discharge to home or other facility with appropriate resources Outcome: Progressing Flowsheets (Taken 03/15/2024819) Discharge to home or other facility with appropriate resources: Identify barriers to discharge with patient and caregiver Arrange for needed discharge resources and transportation as appropriate Identify discharge learning needs (meds, wound care, etc) Problem: Chronic Conditions and Co-morbidities Goal: Patient's chronic conditions and co-morbidity symptoms are monitored and maintained or improved Outcome: Progressing Flowsheets (Taken 03/15/2024819) Care Plan - Patient's Chronic Conditions and Co-Morbidity Symptoms are Monitored and Maintained or Improved: Monitor and assess patient's chronic conditions and comorbid symptoms for stability, deterioration, or improvement Collaborate with multidisciplinary team to address chronic and comorbid conditions and prevent exacerbation or deterioration Update acute care plan with appropriate goals if chronic or comorbid symptoms are exacerbated and prevent overall improvement and discharge Problem: Respiratory - Adult Goal: Achieves optimal ventilation and oxygenation Outcome: Progressing Flowsheets (Taken 03/15/2024819) Achieves optimal ventilation and oxygenation: Assess for changes in respiratory status Assess for changes in mentation and behavior Position to facilitate oxygenation and minimize respiratory effort Oxygen supplementation based on oxygen saturation or arterial blood gases Respiratory therapy support as indicated Problem: Cardiovascular - Adult Goal: Maintains optimal cardiac output and hemodynamic stability Outcome: Progressing Flowsheets (Taken 03/15/2024819) Maintains optimal cardiac output and hemodynamic stability: Monitor blood pressure and heart rate Monitor urine output and notify Licensed Independent Practitioner for values outside of normal range Assess for signs of decreased cardiac output Goal: Absence of cardiac dysrhythmias or at baseline Outcome: Progressing Flowsheets (Taken 03/15/2024819) Absence of cardiac dysrhythmias or at baseline: Monitor cardiac rate and rhythm Assess for signs of decreased cardiac output Problem: Skin/Tissue Integrity - Adult Goal: Skin integrity remains intact Outcome: Progressing Flowsheets (Taken 03/15/2024819) Skin integrity remains intact: Monitor for areas of redness and/or skin breakdown Problem: Gastrointestinal - Adult Goal: Maintains or returns to baseline bowel function Outcome: Progressing Flowsheets (Taken 03/15/2024819) Maintains or returns to baseline bowel function: Assess bowel function Encourage oral fluids to ensure adequate hydration Encourage mobilization and activity Goal: Maintains adequate nutritional intake Outcome: Progressing Problem: Metabolic/Fluid and Electrolytes - Adult Goal: Electrolytes maintained within normal limits Outcome: Progressing Flowsheets (Taken 03/15/2024819) Electrolytes maintained within normal limits: Monitor labs and assess patient for signs and symptoms of electrolyte imbalances Administer electrolyte replacement as ordered Monitor response to electrolyte replacements, including repeat lab results as appropriate Goal: Hemodynamic stability and optimal renal function maintained Outcome: Progressing Flowsheets (Taken 03/15/2024819) Hemodynamic stability and optimal renal function maintained: Monitor labs and assess for signs and symptoms of volume excess or deficit Monitor intake, output and patient weight Goal: Glucose maintained within prescribed range Outcome: Progressing Flowsheets (Taken 03/15/2024819) Glucose maintained within prescribed range: Monitor blood glucose as ordered Assess for signs and symptoms of hyperglycemia and hypoglycemia Problem: Hematologic - Adult Goal: Maintains (more content not included)... Normal [facility] CBC WITH AUTO DIFFERENTIALon 03-15-2024 Erythrocyte distribution width (RBC) [Ratio] 19.3 % High 11.5-15.0 [facility] Comment on above: Performed By: #### L [id number] #### [facility] ([facility]) [address] [place] [address] ERYTHROCYTE MEAN CORPUSCULAR HEMOGLOBIN CONCENTRATION (G/DL) BY AUTOMATED 28.8 g/dL Low 32.0-35.0 [facility] Comment on above: Performed By: #### L [id number] #### [facility] ([facility]) [address] [place] [address] Hematocrit (Bld) [Volume fraction] 28.5 % Low 36.0-48.0 [facility] Comment on above: Performed By: #### L [id number] #### [facility] ([facility]) [address] [place] [address] Hemoglobin (Bld) [Mass/Vol] 8.2 g/dL Low 12.0-15.0 [facility] Comment on above: Performed By: #### L [id number] #### [facility] ([facility]) [address] [place] [address] MCH (RBC) [Entitic mass] 22.2 pg Low 27.0-33.0 [facility] Comment on above: Performed By: #### L [id number] #### [facility] [address] [place] [address] MCV (RBC) [Entitic vol] 77.2 fL Low 82.0-98.0 [facility] Comment on above: Performed By: #### L [id number] #### [facility] ([facility]) [address] [place] [address] NRBC (PER 100 WBCS) BY AUTOMATED COUNT 0.2 % High 0 [facility] Comment on above: Performed By: #### L [id number] #### [facility] ([facility]) [address] [place] [address] PLATELETS (10*3/UL) IN BLOOD AUTOMATED COUNT 287 10*3/uL Normal 150-400 [facility] Comment on above: Performed By: #### L [id number] #### [facility] ([facility]) [address] [place] [address] RBC (Bld) [#/Vol] 3.69 10*6/uL Low 3.80-5.00 [facility] Comment on above: Performed By: #### L [id number] #### [facility] ([facility]) [address] [place] [address] WBC (Bld) [#/Vol] 9.45 10*3/uL Normal 4.00-10.60 [facility] Comment on above: Performed By: #### L [id number] #### [facility] ([facility]) [address] [place] [address] COMPREHENSIVE METABOLIC PANE Robbie 03-15-2024 Albumin [Mass/Vol] 2.8 g/dL Low 3.5-5.7 [facility] Comment on above: Performed By: #### L [id number] #### [facility] ([facility]) [address] [place] [address] ALP [Catalytic activity/Vol] 56 U/L Normal 34-104 [facility] Comment on above: Performed By: #### L [id number] #### [facility] ([facility]) [address] [place] [address] ALT [Catalytic activity/Vol] 44 U/L Normal 7-52 [facility] Comment on above: Performed By: #### L [id number] #### [facility] [address] [place] [address] Anion gap [Moles/Vol] 11 mmol/L Normal 7-20 [facility] Comment on above: Performed By: #### L [id number] #### [facility] ([facility]) [address] [place] [address] AST [Catalytic activity/Vol] 14 U/L Normal 13-39 [facility] Comment on above: Performed By: #### L [id number] #### [facility] ([facility]) [address] [place] [address] Bilirubin [Mass/Vol] 0.3 mg/dL Normal 0.3-1.0 [facility] Comment on above: Performed By: #### L [id number] #### [facility] ([facility]) [address] [place] [address] Calcium [Mass/Vol] 8.1 mg/dL Low 8.6-10.3 [facility] Comment on above: Performed By: #### L [id number] #### [facility] ([facility]) [address] [place] [address] Chloride [Moles/Vol] 100 mmol/L Normal 98-107 [facility] Comment on above: Performed By: #### L [id number] #### [facility] [address] [place] [address] CO2 [Moles/Vol] 29 mmol/L Normal 21-31 [facility] Comment on above: Performed By: #### L [id number] #### [facility] ([facility] [address] [place] [address] Creatinine [Mass/Vol] 0.67 mg/dL Normal 0.60-1.20 [facility] Comment on above: Performed By: #### L [id number] #### [facility] [address] [place] [address] GLOMERULAR FILTRATION RATE ML/MIN/1.73 SQ M.PREDICTED 85.1 mL/min/1.73m*2 Normal >60.0 [facility] Comment on above: Result Comment: The [facility]???s estimated glomerular filtration rate (eGFR) will no longer include consideration of race in its calculation. The National Kidney Foundation???s eGFR Task Force developed new recommendations for the estimation of the glomerular filtration rate in the [place] They recommend immediate implementation of the new equation refit without the race variable in all laboratories because the calculation does not include race. In addition to not including race in the calculation and reporting, it included diversity in its development, and has acceptable performance characteristics and potential consequences that do not disproportionately affect any one group of individuals. Performed By: #### L [id number] #### [facility] ([facility]) [address] [place] [address] Glucose [Mass/Vol] 92 mg/dL Normal 70-100 [facility] Comment on above: Performed By: #### L [id number] #### [facility] ([facility]) [address] [place] [address] Potassium [Moles/Vol] 3.4 mmol/L Low 3.5-5.1 [facility] Comment on above: Performed By: #### L [id number] #### [facility] ([facility]) [address] [place] [address] Protein [Mass/Vol] 5.7 g/dL Low 6.0-8.3 [facility] Comment on above: Performed By: #### L [id number] #### [facility] ([facility]) [address] [place] [address] Sodium [Moles/Vol] 137 mmol/L Normal 136-145 [facility] Comment on above: Performed By: #### L [id number] #### [facility] ([facility] [address] [place] [address] Urea nitrogen [Mass/Vol] 12 mg/dL Normal 7-25 [facility] Comment on above: Performed By: #### L [id number] #### [facility] ([facility]) [address] [place] [address] UREA NITROGEN/CREATININE (MASS RATIO) IN SER/PLAS 17.9 Normal [facility] Comment on above: Performed By: #### L [id number] #### [facility] ([facility]) [address] [place] [address] MANUAL DIFFERENTIALon 2023 ANISOCYTOSIS PRESENCE IN BLOOD BY LIGHT MICROSCOPY Moderate Normal [facility] Comment on above: Performed By: #### L [id number] ####[facility] ([facility])[address] [facility] [place] [address] BASOPHILS (10*3/UL) IN BLOOD BY CALCULATION 0.06 10*3/uL Normal 0.00-0.20 [facility] Comment on above: Performed By: #### L [id number] ####[facility] ([facility])[address] [place] [address] BASOPHILS/100 LEUKOCYTES IN BLOOD BY AUTOMATED COUNT 0.6 % Normal 0.0-1.0 [facility] Comment on above: Performed By: #### L [id number] ####[facility] ([facility])[address] [place] [address] EOSINOPHILS (10*3/UL) IN BLOOD BY CALCULATION 0.43 10*3/uL Normal 0.00-0.50 [facility] Comment on above: Performed By: #### L [id number] ####[facility] ([facility])[address] [place] [address] EOSINOPHILS/100 LEUKOCYTES IN BLOOD BY AUTOMATED COUNT 4.6 % Normal 0.0-6.0 [facility] Comment on above: Performed By: #### L [id number] ####[facility] ([facility])[address] [place] [address] HYPOCHROMIA (PRESENCE) IN BLOOD BY LIGHT MICROSCOPY Slight Normal [facility] Comment on above: Performed By: #### L [id number] ####[facility] ([facility])[address] [place] [address] IMMATURE GRANULOCYTES (10*3/UL) IN BLOOD BY CALCULATION 0.13 10*3/uL Normal 0.00-0.20 [facility] Comment on above: Performed By: #### L [id number] ####[facility] ([facility])[address] [place] [address] IMMATURE GRANULOCYTES/100 LEUKOCYTES IN BLOOD BY AUTOMATED COUNT 1.4 % High 0.0-1.0 [facility] Comment on above: Performed By: #### L [id number] ####[facility] ([facility])[address] [place] [address] LYMPHOCYTES (10*3/UL) IN BLOOD BY CALCULATION 2.25 10*3/uL Normal 1.20-4.00 [facility] Comment on above: Performed By: #### L [id number] ####[facility] ([facility])[address] [place] [address] LYMPHOCYTES/100 LEUKOCYTES IN BLOOD BY AUTOMATED COUNT 23.8 % Normal 20.0-45.0 [facility] Comment on above: Performed By: #### L [id number] ####[facility] ([facility])[address] [place] [address] MONOCYTES (10*3/UL) IN BLOOD BY CALCUATION 0.95 10*3/uL Normal 0.10-1.00 [facility] Comment on above: Performed By: #### L [id number] ####[facility] ([facility])[address] [place] [address] MONOCYTES/100 LEUKOCYTES IN BLOOD BY AUTOMATED COUNT 10.1 % Normal 5.0-12.0 [facility] Comment on above: Performed By: #### L [id number] ####[facility] ([facility])[address] [place] [address] NEUTROPHILS (10*3/UL) IN BLOOD BY CALCULATION 5.6 10*3/uL Normal 1.6-7.6 [facility] Comment on above: Performed By: #### L [id number] ####[facility] [place] [address] NEUTROPHILS/100 LEUKOCYTES IN BLOOD BY AUTOMATED COUNT 59.5 % Normal 40.0-72.0 [facility] Comment on above: Performed By: #### L [id number] ####[facility] [place] [address] POIKILOCYTOSIS (PRESENCE) IN BLOOD BY LIGHT MICROSCOPY Slight Normal [facility] Comment on above: Performed By: #### L [id number] ####[facility] [place] [address] POLYCHROMASIA IN BLOOD BY LIGHT MICROSCOPY Slight Normal [facility] Comment on above: Performed By: #### L [id number] ####[facility] ([facility])[address] [place] [address] Orders Onlyon 03-15-2024 Orders Only [id number] Karen Gifford 1935 F Date Provider Department [facility] 03/15/[id number] [facility] No family history on file Normal [facility] POCT GLUCOSE METER UNSOLICIT ED RESULTSon 03-15-2024 Glucose [Mass/Vol] 99 mg/dL Normal 70-105 [facility] Comment on above: Order Comment: Waive d Testing in the ED is performed under the ED CLIA certificate #[id number]. Result Comment: [email or web address] Performed By: #### L [id number] #### [facility] ([facility]) [address] [place] [address] Glucose [Mass/Vol] 104 mg/dL Normal 70-105 [facility] Comment on above: Order Comment: Waive d Testing in the ED is performed under the ED CLIA certificate #[id number]. Result Comment: [email or web address] Performed By: #### L [id number] #### [facility] ([facility] [address] [place] [address] 30on 03-14-2024 30 The patient is Moderately Stable - Low risk of patient condition declining or worsening The patient's goals for the shift include comfort, rest The clinical goals for the shift include stable vitals, safety Problem: Pain - Adult Goal: Verbalizes/displays adequate comfort level or baseline comfort level Outcome: Progressing Problem: Safety - Adult Goal: Free from fall injury Outcome: Progressing Problem: Chronic Conditions and Co-morbidities Goal: Patient's chronic conditions and co-morbidity symptoms are monitored and maintained or improved Outcome: Progressing Normal [facility] 30 The patient is Moderately Stable - Low risk of patient condition declining or worsening The patient's goals for the shift include Rest, comfort, The clinical goals for the shift include Hemodynamically stable, pain control, breathing exercises. Over the shift, the patient did make progress toward the following goals. Barriers to progression include not applicable. Recommendations to address these barriers include not applicable. Pericardial drain pulled today. Discharge planned for tomorrow along with starting Xarelto. Patient ambulating in room, occasional cough, denies dyspnea, Problem: Pain - Adult Goal: Verbalizes/displays adequate comfort level or baseline comfort level Outcome: Progressing Flowsheets Taken 03/14/2024 1602 Verbalizes/displays adequate comfort level or baseline comfort level: Encourage patient to monitor pain and request assistance Assess pain using appropriate pain scale Taken 03/14/2024 0725 Verbalizes/displays adequate comfort level or baseline comfort level: Encourage patient to monitor pain and request assistance Problem: Safety - Adult Goal: Free from fall injury Outcome: Progressing Flowsheets Taken 03/14/2024 1602 Free from fall injury: Assess patient frequently for physical needs [place] fall precautions as indicated by assessment Taken 03/14/2024 0725 Free from fall injury: Assess patient frequently for physical needs Problem: Discharge Planning Goal: Discharge to home or other facility with appropriate resources Outcome: Progressing Flowsheets Taken 03/14/2024 1602 Discharge to home or other facility with appropriate resources: Identify barriers to discharge with patient and caregiver Arrange for needed discharge resources and transportation as appropriate Taken 03/14/2024 0725 Discharge to home or other facility with appropriate resources: Identify barriers to discharge with patient and caregiver Problem: Chronic Conditions and Co-morbidities Goal: Patient's chronic conditions and co-morbidity symptoms are monitored and maintained or improved Outcome: Progressing Flowsheets Taken 03/14/2024 1602 Care Plan - Patient's Chronic Conditions and Co-Morbidity Symptoms are Monitored and Maintained or Improved: Monitor and assess patient's chronic conditions and comorbid symptoms for stability, deterioration, or improvement Taken 03/14/2024 0725 Care Plan - Patient's Chronic Conditions and Co-Morbidity Symptoms are Monitored and Maintained or Improved: Monitor and assess patient's chronic conditions and comorbid symptoms for stability, deterioration, or improvement Problem: Respiratory - Adult Goal: Achieves optimal ventilation and oxygenation Outcome: Progressing Flowsheets Taken 03/14/2024 1602 Achieves optimal ventilation and oxygenation: Assess for changes in respiratory status Assess for changes in mentation and behavior Position to facilitate oxygenation and minimize respiratory effort Oxygen supplementation based on oxygen saturation or arterial blood gases Taken 03/14/2024 0725 Achieves optimal ventilation and oxygenation: Assess for changes in respiratory status Problem: Cardiovascular - Adult Goal: Maintains optimal cardiac output and hemodynamic stability Outcome: Progressing Flowsheets Taken 03/14/2024 1602 Maintains optimal cardiac output and hemodynamic stability: Monitor blood pressure and heart rate Assess for signs of decreased cardiac output Taken 03/14/2024 0725 Maintains optimal cardiac output and hemodynamic stability: Monitor blood pressure and heart rate Goal: Absence of cardiac dysrhythmias or at baseline Outcome: Progressing Flowsheets Taken 03/14/2024 1602 Absence of cardiac dysrhythmias or at baseline: Monitor cardiac rate and rhythm Assess for signs of decreased cardiac output Taken 03/14/2024 0725 Absence of cardiac dysrhythmias or at baseline: Monitor cardiac rate and rhythm Problem: Skin/Tissue Integrity - Adult Goal: Skin integrity remains intact Outcome: Progressing Flowsheets Taken 03/14/2024 1602 Skin integrity remains intact: Monitor for areas of redness and/or skin breakdown Assess vascular access sites hourly Taken 03/14/2024 0725 Skin integrity remains intact: Monitor for areas of redness and/or skin breakdown Problem: Gastrointestinal - Adult Goal: Maintains or returns to baseline bowel function Outcome: Progressing Flowsheets Taken 03/14/2024 1602 Maintains or returns to baseline bowel function: Assess bowel function Encourage mobilization and activity Administer IV fluids as ordered to ensure adequate hydration Taken 03/14/2024 0725 Maintains or returns to baseline bowel function: Assess bowel function Goal: Maintains adequate nutritional intake Outcome: Progressing Flowsheets (Taken 03/14/2024 0725) Maintains adequate nutritional intake: Monitor percentage of each meal consumed Problem: Metabolic/Fluid and Electrolytes - Adult Goal: Electrolytes mainta (more content not included)... Normal [facility] 30 Daily Case Managemen t Update Multidisciplinary rounds have been completed. Barriers to Discharge: Pending clinical course and improvement in clinical condition. Patient undergoing right-sided bedside thoracentesis per Pulmonology today. Discharge plan is home when medically ready. Diet: Dietary Orders (From admission, onward) Start Ordered 03/13/24 1318 Regular Diet Heart Healthy/HTN, CABG,Stroke, (2gNA, low fat, low cholesterol) Diet effective now Question Answer Comment Room Service? Yes Fat restriction: Heart Healthy/HTN, CABG,Stroke, (2gNA, low fat, low cholesterol) 03/13/24 1317 03/10/24 1147 Dietary nutrition supplements Lunch; Boost Glucose Control; Chocolate; 8 oz; Oral Until discontinued Question Answer Comment Deliver with Lunch Select supplement: Boost Glucose Control Flavor: Chocolate Strength: 8 oz Route Oral 03/10/24 1147 03/09/24 0742 Special Kitchen Request Once Comments: Oatmeal with brown sugar, a piece of toast with jelly, and a scrambled egg please. Iced tea if you have it too, thanks! 03/09/24 0742 03/08/24 185 Special Kitchen Request Once Comments: Can she please have 2 pieces of toast with jelly, a scrambled egg, half a peanut butter and jelly, and a sherbert? Thanks! 03/08/24 185 Physician Expected Discharge Date: Discharge Delays: PT Six Click Score: 23 OT Six Click Score: 21 PT Recommendations: OT Recommendations: Home New Consults: Consult Orders (From admission, onward) Start Ordered 03/08/24 1933 Inpatient consult to Cardiology Once Specialty: Cardiology Provider: (Not yet assigned) Question Answer Comment Reason for Consult? pericardial effusion [employer] CARDIOLOGY TEAM Level of Consultation Consultation and Management 03/08/24 1934 Therapy Orders (From admission, onward) Start Ordered 03/13/24 1409 PT eval and treat Until therapy completed Question: Reason for PT? Answer: weakness 03/13/24 1408 03/13/24 1409 OT eval and treat Until therapy completed Question: Reason for OT? Answer: weakness 03/13/24 1408 Normal [facility] AFB CULTUREon 03-14-2024 AFB CULTURE No growth at 9 days Normal [facility] [place] Comment on above: Performed By: #### L [id number] #### [facility] ([facility]) [address] [place] [address] AFB STAIN No acid fast bacilli seen [facility] Comment on above: Performed By: #### L [id number] #### [facility] ([facility]) [address] [place] [address] AMYLASE, BODY FLUIDon 2023 AMYLASE (U/L) IN BODY FLUID 31 U/L [facility] Comment on above: Result Comment: The reference range and other method performance specifications have not been established for this test in fluids. the test result should be integrated into the clinical context for interpretation. Performed By: #### L [id number] #### [facility] ([facility]) [address] [place] [address] BODY FLUID CELL DIFFERENTIAL on 03-14-2024 BASOPHILS TOTAL PER COUNTED LEUKOCYTES IN BODY FLUID BY MANUAL COUNT [facility] Comment on above: Order Comment: Diffe rential performed on cytospin Performed By: #### L [id number] #### [facility] ([facility]) [address] [place] [address] CELLS COUNTED TOTAL (#) IN BODY FLUID 100 [facility] Comment on above: Order Comment: Diffe rential performed on cytospin Performed By: #### L [id number] #### [facility] ([facility]) [address] [place] [address] EOSINOPHILS TOTAL PER COUNTED LEUKOCYTES IN BODY FLUID BY MANUAL COUNT 4 [facility] Comment on above: Order Comment: Diffe rential performed on cytospin Performed By: #### L [id number] #### [facility] ([facility]) [address] [place] [address] LYMPHOCYTES TOTAL PER COUNTED LEUKOCYTES IN BODY FLUID BY MANUAL COUNT 60 [facility] Comment on above: Order Comment: Diffe rential performed on cytospin Performed By: #### L [id number] #### [facility] ([facility]) [address] [place] [address] MESOTHELIAL CELLS TOTAL PER COUNTED LEUKOCYTES IN BODY FLUID BY MANUAL COUN 19 Normal [facility] Comment on above: Order Comment: Diffe rential performed on cytospin Performed By: #### L [id number] #### [facility] ([facility]) [address] [place] [address] MONOCYTES+MACROPHAG ES TOTAL PER COUNTED LEUKOCYTES IN BODY FLUID BY MANUAL Normal [facility] Comment on above: Order Comment: Diffe rential performed on cytospin Result Comment: Juan Carlos ected result: Previously reported as 19 (reference range: ) on 03/14/2024 at 1324 EDT. Performed By: #### L [id number] #### [facility] ([facility]) [address] [place] [address] NEUTROPHILS TOTAL PER COUNTED LEUKOCYTES IN BODY FLUID BY MANUAL COUNT 17 Normal [facility] Comment on above: Order Comment: Diffe rential performed on cytospin Performed By: #### L [id number] #### [facility] ([facility]) [address] [place] [address] OTHER CELLS BODY FLUID (MANUAL) Normal [facility] Comment on above: Order Comment: Diffe rential performed on cytospin Performed By: #### L [id number] #### [facility] ([facility]) [address] [place] [address] BODY FLUID CULTUREon 024 Bacteria identified Cx Nom (Unsp spec) No growth at 5 days Normal [facility] Comment on above: Performed By: #### L [id number] #### [facility] ([facility]) [address] [place] [address] GRAM STAIN RESULT Normal [facility] Comment on above: Result Comment: Cyto centrifuge sample Polymorphonuclear leukocytes No organisms seen Performed By: #### L [id number] #### [facility] ([facility]) [address] [place] [address] CBC WITH AUTO DIFFERENTIALon 03-14-2024 Erythrocyte distribution width (RBC) [Ratio] 18.5 % High 11.5-15.0 [facility] Comment on above: Performed By: #### L [id number] #### [facility] ([facility] [address] [place] [address] ERYTHROCYTE MEAN CORPUSCULAR HEMOGLOBIN CONCENTRATION (G/DL) BY AUTOMATED 28.9 g/dL Low 32.0-35.0 [facility] Comment on above: Performed By: #### L [id number] #### [facility] ([facility]) [address] [place] [address] Hematocrit (Bld) [Volume fraction] 28.4 % Low 36.0-48.0 [facility] Comment on above: Performed By: #### L [id number] #### [facility] ([facility]) [address] [place] [address] Hemoglobin (Bld) [Mass/Vol] 8.2 g/dL Low 12.0-15.0 [facility] Comment on above: Performed By: #### L [id number] #### [facility] ([facility]) [address] [place] [address] MCH (RBC) [Entitic mass] 22.0 pg Low 27.0-33.0 [facility] Comment on above: Performed By: #### L [id number] #### [facility] ([facility]) [address] [place] [address] MCV (RBC) [Entitic vol] 76.1 fL Low 82.0-98.0 [facility] Comment on above: Performed By: #### L [id number] #### [facility] ([facility]) [address] [place] [address] NRBC (PER 100 WBCS) BY AUTOMATED COUNT 0.0 % Normal 0 [facility] Comment on above: Performed By: #### L [id number] #### [facility] ([facility]) [address] [place] [address] PLATELETS (10*3/UL) IN BLOOD AUTOMATED COUNT 323 10*3/uL Normal 150-400 [facility] Comment on above: Performed By: #### L [id number] #### [facility] ([facility]) [address] [place] [address] RBC (Bld) [#/Vol] 3.73 10*6/uL Low 3.80-5.00 [facility] Comment on above: Performed By: #### L [id number] #### [facility] ([facility]) [address] [address] WBC (Bld) [#/Vol] 9.81 10*3/uL Normal 4.00-10.60 [facility] Comment on above: Performed By: #### L [id number] #### [facility] ([facility]) [address] [place] [address] COMPREHENSIVE METABOLIC PANE Robbie 03-14-2024 Albumin [Mass/Vol] 2.9 g/dL Low 3.5-5.7 [facility] Comment on above: Performed By: #### L [id number] #### [facility] ([facility]) [address] [place] [address] ALP [Catalytic activity/Vol] 63 U/L Normal 34-104 [facility] Comment on above: Performed By: #### L [id number] #### [facility] ([facility]) [address] [place] [address] ALT [Catalytic activity/Vol] 61 U/L High 7-52 [facility] Comment on above: Performed By: #### L [id number] #### [facility] ([facility]) [address] [place] [address] Anion gap [Moles/Vol] 11 mmol/L Normal 7-20 [facility] Comment on above: Performed By: #### L [id number] #### [facility] ([facility]) [address] [place] [address] AST [Catalytic activity/Vol] 19 U/L Normal 13-39 [facility] Comment on above: Performed By: #### L [id number] #### [facility] ([facility] [address] [place] [address] Bilirubin [Mass/Vol] 0.3 mg/dL Normal 0.3-1.0 [facility] Comment on above: Performed By: #### L [id number] #### [facility] ([facility]) [address] [place] [address] Calcium [Mass/Vol] 8.1 mg/dL Low 8.6-10.3 [facility] Comment on above: Performed By: #### L [id number] #### [facility] ([facility]) [address] [place] [address] Chloride [Moles/Vol] 96 mmol/L Low 98-107 [facility] Comment on above: Performed By: #### L [id number] #### [facility] ([facility]) [address] [place] [address] CO2 [Moles/Vol] 29 mmol/L Normal 21-31 [facility] Comment on above: Performed By: #### L [id number] #### [facility] ([facility]) [address] [place] [address] Creatinine [Mass/Vol] 0.67 mg/dL Normal 0.60-1.20 [facility] Comment on above: Performed By: #### L [id number] #### [facility] ([facility]) [address] [place] [address] GLOMERULAR FILTRATION RATE ML/MIN/1.73 SQ M.PREDICTED 85.1 mL/min/1.73m*2 Normal >60.0 [facility] Comment on above: Result Comment: The [facility]???s estimated glomerular filtration rate (eGFR) will no longer include consideration of race in its calculation. The [employer] Kid[employer] Foundation???s eGFR Task Force developed new recommendations for the estimation of the glomerular filtration rate in the [place] They recommend immediate implementation of the new equation refit without the race variable in all laboratories because the calculation does not include race. In addition to not including race in the calculation and reporting, it included diversity in its development, and has acceptable performance characteristics and potential consequences that do not disproportionately affect any one group of individuals. Performed By: #### L [id number] #### [facility] ([facility]) [address] [place] [address] Glucose [Mass/Vol] 108 mg/dL High 70-100 [facility] Comment on above: Performed By: #### L [id number] #### [facility] ([facility]) [address] [place] [address] Potassium [Moles/Vol] 3.3 mmol/L Low 3.5-5.1 [facility] Comment on above: Performed By: #### L [id number] #### [facility] ([facility]) [address] [place] [address] Protein [Mass/Vol] 5.8 g/dL Low 6.0-8.3 [facility] Comment on above: Performed By: #### L [id number] #### [facility] ([facility]) [address] [place] [address] Sodium [Moles/Vol] 133 mmol/L Low 136-145 [facility] Comment on above: Performed By: #### L [id number] #### [facility] ([facility]) [address] [place] [address] Urea nitrogen [Mass/Vol] 16 mg/dL Normal 7-25 [facility] Comment on above: Performed By: #### L [id number] #### [facility] ([facility]) [address] [place] [address] UREA NITROGEN/CREATININE (MASS RATIO) IN SER/PLAS 23.9 Normal [facility] Comment on above: Performed By: #### L [id number] #### [facility] ([facility]) [address] [place] [address] GLUCOSE, BODY FLUIDon 2023 GLUCOSE (MG/DL) IN BODY FLUID 115 mg/dL Normal [facility] Comment on above: Result Comment: The reference range and other method performance specifications have not been established for this test in fluids. the test result should be integrated into the clinical context for interpretation. Performed By: #### L [id number] #### [facility] ([facility]) [address] [place] [address] LACTATE DEHYDROGENASEon 02-14 LACTATE DEHYDROGENASE (U/L) IN SER/PLAS BY LAC->PYR RXN 198 U/L Normal 140-271 [facility] Comment on above: Performed By: #### L [id number] #### [facility] ([facility]) [address] [place] [address] LACTATE DEHYDROGENASE, BODY FLUIDon 03-14-2024 LACTATE DEHYDROGENASE (U/L) IN BODY FLUID BY LAC->PYR 184 U/L Normal [facility] Comment on above: Result Comment: The reference range and other method performance specifications have not been established for this test in fluids. the test result should be integrated into the clinical context for interpretation. Performed By: #### L [id number] #### [facility] ([facility]) [address] [place] [address] MANUAL DIFFERENTIALon 2023 ANISOCYTOSIS PRESENCE IN BLOOD BY LIGHT MICROSCOPY Moderate Normal [facility] Comment on above: Performed By: #### L [id number] #### [facility] ([facility]) [address] [place] [address] BASOPHILS (10*3/UL) IN BLOOD BY CALCULATION 0.05 10*3/uL Normal 0.00-0.20 [facility] Comment on above: Performed By: #### L [id number] #### [facility] ([facility]) [address] [place] [address] BASOPHILS/100 LEUKOCYTES IN BLOOD BY AUTOMATED COUNT 0.5 % Normal 0.0-1.0 [facility] Comment on above: Performed By: #### L [id number] #### [facility] ([facility]) [address] [place] [address] EOSINOPHILS (10*3/UL) IN BLOOD BY CALCULATION 0.32 10*3/uL Normal 0.00-0.50 [facility] Comment on above: Performed By: #### L [id number] #### [facility] ([facility]) [address] [place] [address] EOSINOPHILS/100 LEUKOCYTES IN BLOOD BY AUTOMATED COUNT 3.3 % Normal 0.0-6.0 [facility] Comment on above: Performed By: #### L [id number] #### [facility] ([facility]) [address] [place] [address] IMMATURE GRANULOCYTES (10*3/UL) IN BLOOD BY CALCULATION 0.15 10*3/uL Normal 0.00-0.20 [facility] Comment on above: Performed By: #### L [id number] #### [facility] ([facility]) [address] [place] [address] IMMATURE GRANULOCYTES/100 LEUKOCYTES IN BLOOD BY AUTOMATED COUNT 1.5 % High 0.0-1.0 [facility] Comment on above: Performed By: #### L [id number] #### [facility] ([facility]) [address] [place] [address] LYMPHOCYTES (10*3/UL) IN BLOOD BY CALCULATION 1.75 10*3/uL Normal 1.20-4.00 [facility] Comment on above: Performed By: #### L [id number] #### [facility] ([facility]) [address] [place] [address] LYMPHOCYTES/100 LEUKOCYTES IN BLOOD BY AUTOMATED COUNT 17.8 % Low 20.0-45.0 [facility] Comment on above: Performed By: #### L [id number] #### [facility] ([facility]) [address] [place] [address] MONOCYTES (10*3/UL) IN BLOOD BY CALCUATION 1.11 10*3/uL High 0.10-1.00 [facility] Comment on above: Performed By: #### L [id number] #### [facility] ([facility]) [address] [place] [address] MONOCYTES/100 LEUKOCYTES IN BLOOD BY AUTOMATED COUNT 11.3 % Normal 5.0-12.0 [facility] Comment on above: Performed By: #### L [id number] #### [facility] ([facility]) [address] [place] [address] NEUTROPHILS (10*3/UL) IN BLOOD BY CALCULATION 6.4 10*3/uL Normal 1.6-7.6 [facility] Comment on above: Performed By: #### L [id number] #### [facility] ([facility] [address] [place] [address] NEUTROPHILS/100 LEUKOCYTES IN BLOOD BY AUTOMATED COUNT 65.6 % Normal 40.0-72.0 [facility] Comment on above: Performed By: #### L [id number] #### [facility] ([facility] [address] [place] [address] POIKILOCYTOSIS (PRESENCE) IN BLOOD BY LIGHT MICROSCOPY Slight Normal [facility] Comment on above: Performed By: #### L [id number] #### [facility] ([facility] [address] [place] [address] POLYCHROMASIA IN BLOOD BY LIGHT MICROSCOPY Slight Normal [facility] Comment on above: Performed By: #### L [id number] #### [facility] CENTER) [address] [place] [address] NON-MEAT COUNTER WORKER CYTOLOGY - CELLULAR EXAMon 03-14-2024 LAB AP CASE REPORT Normal [facility] Comment on above: Result Comment: Non- gynecologic Cytology Case: [id number] Authorizing Provider: Jami Su MD Collected: 03/14/2024 0930 Ordering Location: [facility] Received: 03/14/2024 1132 Pathologist: Toya Patel MD Specimen: Pleural fluid, right Performed By: #### L [id number] ####[facility] ([facility] [place] [address] LAB AP CLINICAL INFORMATION Normal [facility] Comment on above: Result Comment: Post -Op Diagnoses No Dx found. Performed By: #### L [id number] ####[facility] (BEAKER)[address] [place] [address] LAB AP GROSS DESCRIPTION Normal [facility] Comment on above: Result Comment: 45 m L cloudy, red fluid. Performed By: #### L [id number] ####[facility] ([facility] [place] [address] LAB AP REPORT FINAL DIAGNOSIS NARRATIVE Normal [facility] Comment on above: Result Comment: A. P leural fluid, right: - Negative for malignancy. - Chronic inflammation. Performed By: #### L [id number] ####[facility] ([facility])[address] [place] [address] PATHOLOGY REVIEWon PATHOLOGY REVIEW Reviewed. Normal [facility] Comment on above: Result Comment: Elec tronically signed by Harjit Castellon MD on 03/15/24 at 7:58 AM. Performed By: #### L [id number] #### [facility] ([facility]) [address] [place] [address] PH PLEURAL FLUID, RESPIRATOR Yon 03-14-2024 PH PLEURAL FLUID 7.52 Normal [facility] Comment on above: Order Comment: The r eference range and other method performance specifications are unavailable for this body fluid. Interpretation nust be done by physician in conjunction with the clinical situation. ???This test was developed and its performance characteristics determined by [facility]. ???It has not been cleared or approved by the FDA. ???The laboratory is regulated under CLIA as qualified to perform moderately complexity testing. ???This test is used for clinical purposes. ???It should not be regarded as investigational or for research. Performed By: #### L [id number] #### [facility] ([facility] [address] [place] [address] POCT GLUCOSE METER UNSOLICIT ED RESULTSon 03-14-2024 Glucose [Mass/Vol] 108 mg/dL High 70-105 [facility] Comment on above: Order Comment: Waive d Testing in the ED is performed under the ED CLIA certificate #[id number]. Result Comment: dcun dic Performed By: #### L [id number] ####[facility] ([facility])[address] [place] [address] Glucose [Mass/Vol] 111 mg/dL High 70-105 [facility] Comment on above: Order Comment: Waive d Testing in the ED is performed under the ED CLIA certificate #[id number]. Result Comment: dcun dic Performed By: #### L [id number] ####[facility] ([facility])[address] [place] [address] Glucose [Mass/Vol] 128 mg/dL High 70-105 [facility] Comment on above: Order Comment: Waive d Testing in the ED is performed under the ED CLIA certificate #[id number]. Result Comment: [email or web address] Performed By: #### L [id number] ####[facility] ([facility])[address] [place] [address] PROTEIN, BODY FLUIDon 2023 Protein (Body fld) [Mass/Vol] 3.8 g/dL Normal [facility] Comment on above: Result Comment: The reference range and other method performance specifications have not been established for this test in fluids. the test result should be integrated into the clinical context for interpretation. Performed By: #### L [id number] #### [facility] ([facility]) [address] [place] [address] PROTEIN, TOTALon 03-14-2024 Protein [Mass/Vol] 5.7 g/dL Low 6.0-8.3 [facility] Comment on above: Performed By: #### L [id number] #### [facility] ([facility]) [address] [place] [address] TRIGLYCERIDES, BODY FLUIDon 03-14-2024 TRIGLYCERIDES (MG/DL) IN BODY FLUID 30 mg/dL Normal [facility] Comment on above: Performed By: #### L [id number] #### [facility] ([facility]) [address] [place] [address] 30on 03-13-2024 30 The patient is Moderately Stable - Low risk of patient condition declining or worsening The patient's goals for the shift include Rest; Comfort The clinical goals for the shift include VSS; Pericardial Drain Mngt Problem: Cardiovascular - Adult Goal: Maintains optimal cardiac output and hemodynamic stability Outcome: Not Progressing Flowsheets (Taken 03/13/20241919) Maintains optimal cardiac output and hemodynamic stability: Monitor blood pressure and heart rate Monitor urine output and notify Licensed Independent Practitioner for values outside of normal range Assess for signs of decreased cardiac output Goal: Absence of cardiac dysrhythmias or at baseline Outcome: Not Progressing Flowsheets (Taken 03/13/20241919) Absence of cardiac dysrhythmias or at baseline: Monitor cardiac rate and rhythm Normal [facility] 30 The patient is Moderately Stable - Low risk of patient condition declining or worsening The patient's goals for the shift include Rest, comfort The clinical goals for the shift include VSS, comfort Over the shift, the patient did not make progress toward the following goals. Barriers to progression include Q4 Pericardial drain, Low blood pressures, TTE planned for tomorrow to evaluate heart function post pericardiocentesis, Thoracentesis planned for tomorrow. Recommendations to address these barriers include monitoring blood pressures, continued monitoring of respiratory status, continued HF education and early identification of complications, and monitor vital signs. Problem: Respiratory - Adult Goal: Achieves optimal ventilation and oxygenation Outcome: Not Progressing Flowsheets (Taken 03/13/2024831) Achieves optimal ventilation and oxygenation: Assess for changes in respiratory status Problem: Cardiovascular - Adult Goal: Maintains optimal cardiac output and hemodynamic stability Outcome: Not Progressing Flowsheets (Taken 03/13/2024831) Maintains optimal cardiac output and hemodynamic stability: Monitor blood pressure and heart rate Goal: Absence of cardiac dysrhythmias or at baseline Outcome: Not Progressing Flowsheets (Taken 03/13/2024831) Absence of cardiac dysrhythmias or at baseline: Monitor cardiac rate and rhythm Problem: Pain - Adult Goal: Verbalizes/displays adequate comfort level or baseline comfort level Outcome: Progressing Flowsheets (Taken 03/13/2024831) Verbalizes/displays adequate comfort level or baseline comfort level: Encourage patient to monitor pain and request assistance Problem: Safety - Adult Goal: Free from fall injury Outcome: Progressing Flowsheets (Taken 03/13/2024831) Free from fall injury: Assess patient frequently for physical needs Problem: Discharge Planning Goal: Discharge to home or other facility with appropriate resources Outcome: Progressing Flowsheets (Taken 03/13/2024 0832) Discharge to home or other facility with appropriate resources: Identify barriers to discharge with patient and caregiver Problem: Chronic Conditions and Co-morbidities Goal: Patient's chronic conditions and co-morbidity symptoms are monitored and maintained or improved Outcome: Progressing Flowsheets (Taken 03/13/2024831) Care Plan - Patient's Chronic Conditions and Co-Morbidity Symptoms are Monitored and Maintained or Improved: Monitor and assess patient's chronic conditions and comorbid symptoms for stability, deterioration, or improvement Problem: Skin/Tissue Integrity - Adult Goal: Skin integrity remains intact Outcome: Progressing Flowsheets (Taken 03/13/2024831) Skin integrity remains intact: Monitor for areas of redness and/or skin breakdown Problem: Gastrointestinal - Adult Goal: Maintains or returns to baseline bowel function Outcome: Progressing Flowsheets (Taken 03/13/2024831) Maintains or returns to baseline bowel function: Assess bowel function Goal: Maintains adequate nutritional intake Outcome: Progressing Flowsheets (Taken 03/13/2024831) Maintains adequate nutritional intake: Monitor percentage of each meal consumed Problem: Metabolic/Fluid and Electrolytes - Adult Goal: Electrolytes maintained within normal limits Outcome: Progressing Flowsheets (Taken 03/13/2024831) Electrolytes maintained within normal limits: Monitor labs and assess patient for signs and symptoms of electrolyte imbalances Goal: Hemodynamic stability and optimal renal function maintained Outcome: Progressing Flowsheets (Taken 03/13/2024831) Hemodynamic stability and optimal renal function maintained: Monitor labs and assess for signs and symptoms of volume excess or deficit Goal: Glucose maintained within prescribed range Outcome: Progressing Flowsheets (Taken 03/13/2024831) Glucose maintained within prescribed range: Monitor blood glucose as ordered Problem: Hematologic - Adult Goal: Maintains hematologic stability Outcome: Progressing Flowsheets (Taken 03/13/2024831) Maintains hematologic stability: Assess for signs and symptoms of bleeding or hemorrhage Problem: Heart Failure diagnosis knowledge deficit Goal: Patient will verbalize understanding of how heart failure affects the body Outcome: Progressing Goal: Patient will verbalize understanding of how other conditions affect the heart Outcome: Progressing Problem: Fluid retention/overload Goal: Patient will be able to identify signs and symptoms of fluid retention Outcome: Progressing Problem: Heart failure medication adherence Goal: Consistently take heart failure medication as prescribed Outcome: Progressing Problem: Insufficient exercise regimen Goal: Patient will engage in physical activity safely Outcome: Progressing Problem: Heart failure progression and care needs Goal: Patient will verbalize understanding of heart failure progression Outcome: Progressing Probl (more content not included)... [facility] 30 Daily Case Managemen t Update Multidisciplinary rounds have been completed. Barriers to Discharge: Pending clinical course and improvement in clinical condition. R+L cath and pericardiocentesis today. Planning bedside thoracentesis tomorrow morning. Diet: Dietary Orders (From admission, onward) Start Ordered 03/13/24 1318 Regular Diet Heart Healthy/HTN, CABG,Stroke, (2gNA, low fat, low cholesterol) Diet effective now Question Answer Comment Room Service? Yes Fat restriction: Heart Healthy/HTN, CABG,Stroke, (2gNA, low fat, low cholesterol) 03/13/24 1317 03/10/24 1147 Dietary nutrition supplements Lunch; Boost Glucose Control; Chocolate; 8 oz; Oral Until discontinued Question Answer Comment Deliver with Lunch Select supplement: Boost Glucose Control Flavor: Chocolate Strength: 8 oz Route Oral 03/10/24 1147 03/09/24 0742 Special Kitchen Request Once Comments: Oatmeal with brown sugar, a piece of toast with jelly, and a scrambled egg please. Iced tea if you have it too, thanks! 03/09/24 0742 03/08/24 185 Special Kitchen Request Once Comments: Can she please have 2 pieces of toast with jelly, a scrambled egg, half a peanut butter and jelly, and a sherbert? Thanks! 03/08/24 185 Physician Expected Discharge Date: Discharge Delays: PT Six Click Score: 23 OT Six Click Score: PT Recommendations: OT Recommendations: New Consults: Consult Orders (From admission, onward) Start Ordered 03/08/24 1933 Inpatient consult to Cardiology Once Specialty: Cardiology Provider: (Not yet assigned) Question Answer Comment Reason for Consult? pericardial effusion [employer] CARDIOLOGY TEAM Level of Consultation Consultation and Management 03/08/24 1934 Therapy Orders (From admission, onward) Start Ordered 03/13/24 1409 PT eval and treat Until therapy completed Question: Reason for PT? Answer: weakness 03/13/24 1408 03/13/24 1409 OT eval and treat Until therapy completed Question: Reason for OT? Answer: weakness 03/13/24 1408 [facility] 30 The patient is Moderately Stable - Low risk of patient condition declining or worsening The patient's goals for the shift include Rest; Breathing Good The clinical goals for the shift include VSS; Monitor Output Problem: Pain - Adult Goal: Verbalizes/displays adequate comfort level or baseline comfort level Outcome: Progressing Flowsheets (Taken 03/12/20241999) Verbalizes/displays adequate comfort level or baseline comfort level: Encourage patient to monitor pain and request assistance Assess pain using appropriate pain scale Administer analgesics based on type and severity of pain and evaluate response Implement non-pharmacological measures as appropriate and evaluate response Problem: Safety - Adult Goal: Free from fall injury Outcome: Progressing Flowsheets (Taken 03/12/20241999) Free from fall injury: Assess patient frequently for physical needs Instruct patient to call for assistance with activity based on assessment Modify environment to reduce risk of injury Problem: Discharge Planning Goal: Discharge to home or other facility with appropriate resources Outcome: Progressing Flowsheets (Taken 03/12/20241999) Discharge to home or other facility with appropriate resources: Identify barriers to discharge with patient and caregiver Arrange for needed discharge resources and transportation as appropriate Identify discharge learning needs (meds, wound care, etc) Problem: Chronic Conditions and Co-morbidities Goal: Patient's chronic conditions and co-morbidity symptoms are monitored and maintained or improved Outcome: Progressing Flowsheets (Taken 03/12/20241999) Care Plan - Patient's Chronic Conditions and Co-Morbidity Symptoms are Monitored and Maintained or Improved: Monitor and assess patient's chronic conditions and comorbid symptoms for stability, deterioration, or improvement Collaborate with multidisciplinary team to address chronic and comorbid conditions and prevent exacerbation or deterioration Update acute care plan with appropriate goals if chronic or comorbid symptoms are exacerbated and prevent overall improvement and discharge Problem: Respiratory - Adult Goal: Achieves optimal ventilation and oxygenation Outcome: Progressing Flowsheets (Taken 03/12/20241999) Achieves optimal ventilation and oxygenation: Assess for changes in respiratory status Assess for changes in mentation and behavior Position to facilitate oxygenation and minimize respiratory effort Oxygen supplementation based on oxygen saturation or arterial blood gases Encourage broncho-pulmonary hygiene including cough, deep breathe, incentive spirometry Assess and instruct to report shortness of breath or any respiratory difficulty Respiratory therapy support as indicated Problem: Cardiovascular - Adult Goal: Maintains optimal cardiac output and hemodynamic stability Outcome: Progressing Flowsheets (Taken 03/12/20241999) Maintains optimal cardiac output and hemodynamic stability: Monitor blood pressure and heart rate Monitor urine output and notify Licensed Independent Practitioner for values outside of normal range Assess for signs of decreased cardiac output Goal: Absence of cardiac dysrhythmias or at baseline Outcome: Progressing Flowsheets (Taken 03/12/20241999) Absence of cardiac dysrhythmias or at baseline: Monitor cardiac rate and rhythm Problem: Skin/Tissue Integrity - Adult Goal: Skin integrity remains intact Outcome: Progressing Flowsheets (Taken 03/12/20241999) Skin integrity remains intact: Monitor for areas of redness and/or skin breakdown Problem: Gastrointestinal - Adult Goal: Maintains or returns to baseline bowel function Outcome: Progressing Flowsheets (Taken 03/12/20241999) Maintains or returns to baseline bowel function: Assess bowel function Encourage oral fluids to ensure adequate hydration Administer ordered medications as needed Encourage mobilization and activity Goal: Maintains adequate nutritional intake Outcome: Progressing Flowsheets (Taken 03/12/20241999) Maintains adequate nutritional intake: Monitor percentage of each meal consumed Identify factors contributing to decreased intake, treat as appropriate Assist with meals as needed Monitor intake and output, weight and lab values Problem: Metabolic/Fluid and Electrolytes - Adult Goal: Electrolytes maintained within normal limits Outcome: Progressing Flowsheets (Taken 03/12/20241999) Electrolytes maintained within normal limits: Monitor labs and assess patient for signs and symptoms of electrolyte imbalances Administer electrolyte replacement as ordered Monitor response to electrolyte replacements, including repeat lab results as appropriate Goal: Hemodynamic stability and optimal renal function maintained Outcome: Progressing Flowsheets (Taken 03/12/20241999) Hemodynamic stability and optimal renal function maintained: Monitor labs and assess for signs and symptoms of vo (more content not included)... Normal [facility] AFB CULTUREon 03-13-2024 AFB CULTURE No growth at 12 days Normal [facility] Comment on above: Performed By: #### L [id number] ####[facility] (BEAKER)[address] [place] [address] AFB STAIN No acid fast bacilli seen Normal [facility] Comment on above: Performed By: #### L [id number] ####[facility] (BEAKER)[address] [place] [address] APTTon 03-13-2024 ACTIVATED PARTIAL THROMBOPLASTIN TIME IN PPP BY COAGULATION ASSAY 45.9 Seconds High 25.0-35.0 [facility] Comment on above: Result Comment: Clin ical significance of the APTT is questionable in the presence of heparin. Performed By: #### L [id number] #### [facility] ([facility] [address] [place] [address] BODY FLUID CELL DIFFERENTIAL on 03-13-2024 BASOPHILS TOTAL PER COUNTED LEUKOCYTES IN BODY FLUID BY MANUAL COUNT [facility] Comment on above: Order Comment: Waive d Testing in the ED is performed under the ED CLIA certificate #[id number]. Performed By: #### L [id number] #### [facility] ([facility]) [address] [place] [address] CELLS COUNTED TOTAL (#) IN BODY FLUID 100 [facility] Comment on above: Order Comment: Waive d Testing in the ED is performed under the ED CLIA certificate #[id number]. Performed By: #### L [id number] #### [facility] ([facility]) [address] [place] [address] EOSINOPHILS TOTAL PER COUNTED LEUKOCYTES IN BODY FLUID BY MANUAL COUNT 4 [facility] Comment on above: Order Comment: Waive d Testing in the ED is performed under the ED CLIA certificate #[id number]. Performed By: #### L [id number] #### [facility] ([facility] [address] [place] [address] LYMPHOCYTES TOTAL PER COUNTED LEUKOCYTES IN BODY FLUID BY MANUAL COUNT 4 [facility] Comment on above: Order Comment: Waive d Testing in the ED is performed under the ED CLIA certificate #[id number]. Performed By: #### L [id number] #### [facility] (BEAKER) [address] [place] [address] MESOTHELIAL CELLS TOTAL PER COUNTED LEUKOCYTES IN BODY FLUID BY MANUAL COUN [facility] Comment on above: Order Comment: Waive d Testing in the ED is performed under the ED CLIA certificate #[id number]. Performed By: #### L [id number] #### [facility] (BEAKER) [address] [place] [address] MONOCYTES+MACROPHAG ES TOTAL PER COUNTED LEUKOCYTES IN BODY FLUID BY MANUAL Normal [facility] Comment on above: Order Comment: Waive d Testing in the ED is performed under the ED CLIA certificate #[id number]. Performed By: #### L [id number] #### [facility] (BEAKER) [address] [place] [address] NEUTROPHILS TOTAL PER COUNTED LEUKOCYTES IN BODY FLUID BY MANUAL COUNT 92 Normal [facility] Comment on above: Order Comment: Waive d Testing in the ED is performed under the ED CLIA certificate #[id number]. Performed By: #### L [id number] #### [facility] (BEAKER) [address] [place] [address] OTHER CELLS BODY FLUID (MANUAL) Normal [facility] Comment on above: Order Comment: Waive d Testing in the ED is performed under the ED CLIA certificate #[id number]. Performed By: #### L [id number] #### [facility] ([facility]) [address] [place] [address] BODY FLUID CULTUREon 024 Bacteria identified Cx Nom (Unsp spec) No growth at 5 days Normal [facility] Comment on above: Performed By: #### L [id number] #### [facility] ([facility]) [address] [place] [address] GRAM STAIN RESULT Normal [facility] Comment on above: Result Comment: Poly morphonuclear leukocytes No organisms seen Cytocentrifuge sample Performed By: #### L [id number] #### [facility] ([facility]) [address] [place] [address] C-REACTIVE PROTEINon 024 C REACTIVE PROTEIN (MG/L) IN SER/PLAS 42.9 mg/L High 0.0-7.0 [facility] Comment on above: Performed By: #### L [id number] ####[facility] ([facility])[address] [place] [address] CBC WITH AUTO DIFFERENTIALon 03-13-2024 Basophils (Bld) [#/Vol] 0.04 10*3/uL Normal 0.00-0.20 [facility] Comment on above: Performed By: #### L [id number] #### [facility] (BEAKER) [address] [place] [address] Basophils/100 WBC (Bld) 0.4 % Normal 0.0-1.0 [facility] Comment on above: Performed By: #### L [id number] #### [facility] (BEAKER) [address] [place] [address] Eosinophils (Bld) [#/Vol] 0.22 10*3/uL Normal 0.00-0.50 [facility] Comment on above: Performed By: #### L [id number] #### [facility] ([facility] [address] [place] [address] Eosinophils/100 WBC (Bld) 2.4 % Normal 0.0-6.0 [facility] Comment on above: Performed By: #### L [id number] #### [facility] ([facility]) [address] [place] [address] Erythrocyte distribution width (RBC) [Ratio] 18.4 % High 11.5-15.0 [facility] Comment on above: Performed By: #### L [id number] #### [facility] ([facility] [address] [place] [address] ERYTHROCYTE MEAN CORPUSCULAR HEMOGLOBIN CONCENTRATION (G/DL) BY AUTOMATED 29.2 g/dL Low 32.0-35.0 [facility] Comment on above: Performed By: #### L [id number] #### [facility] (BEAKER) [address] [place] [address] Hematocrit (Bld) [Volume fraction] 31.2 % Low 36.0-48.0 [facility] Comment on above: Performed By: #### L [id number] #### [facility] (BEAKER) [address] [place] [address] Hemoglobin (Bld) [Mass/Vol] 9.1 g/dL Low 12.0-15.0 [facility] Comment on above: Performed By: #### L [id number] #### [facility] ([facility]) [address] [place] [address] Immature granulocytes (Bld) [#/Vol] 0.13 10*3/uL Normal 0.00-0.20 [facility] Comment on above: Performed By: #### L [id number] #### [facility] ([facility]) [address] [place] [address] Immature granulocytes/100 WBC (Bld) 1.4 % High 0.0-1.0 [facility] Comment on above: Performed By: #### L [id number] #### [facility] ([facility]) [address] [place] [address] Lymphocytes (Bld) [#/Vol] 1.35 10*3/uL Normal 1.20-4.00 [facility] Comment on above: Performed By: #### L [id number] #### [facility] ([facility]) [address] [place] [address] Lymphocytes/100 WBC (Bld) 14.5 % Low 20.0-45.0 [facility] Comment on above: Performed By: #### L [id number] #### [facility] ([facility]) [address] [place] [address] MCH (RBC) [Entitic mass] 22.0 pg Low 27.0-33.0 [facility] Comment on above: Performed By: #### L [id number] #### [facility] ([facility]) [address] [place] [address] MCV (RBC) [Entitic vol] 75.4 fL Low 82.0-98.0 [facility] Comment on above: Performed By: #### L [id number] #### [facility] ([facility]) [address] [place] [address] Monocytes (Bld) [#/Vol] 0.82 10*3/uL Normal 0.10-1.00 [facility] Comment on above: Performed By: #### L [id number] #### [facility] [address] [place] [address] Monocytes/100 WBC (Bld) 8.8 % Normal 5.0-12.0 [facility] Comment on above: Performed By: #### L [id number] #### [facility] ([facility]) [address] [place] [address] Neutrophils (Bld) [#/Vol] 6.75 10*3/uL Normal 1.60-7.60 [facility] Comment on above: Performed By: #### L [id number] #### [facility] ([facility]) [address] [address] Neutrophils/100 WBC (Bld) 72.5 % High 40.0-72.0 [facility] Comment on above: Performed By: #### L [id number] #### [facility] ([facility]) [address] [place] [address] NRBC (PER 100 WBCS) BY AUTOMATED COUNT 0.0 % Normal 0 [facility] Comment on above: Performed By: #### L [id number] #### [facility] ([facility]) [address] [place] [address] PLATELETS (10*3/UL) IN BLOOD AUTOMATED COUNT 340 10*3/uL Normal 150-400 [facility] Comment on above: Performed By: #### L [id number] #### [facility] ([facility]) [address] [place] [address] RBC (Bld) [#/Vol] 4.14 10*6/uL Normal 3.80-5.00 [facility] Comment on above: Performed By: #### L [id number] #### [facility] [address] [place] [address] WBC (Bld) [#/Vol] 9.31 10*3/uL Normal 4.00-10.60 [facility] Comment on above: Performed By: #### L [id number] #### [facility] ([facility]) [address] [place] [address] COMPREHENSIVE METABOLIC PANE Robbie 03-13-2024 Albumin [Mass/Vol] 3.2 g/dL Low 3.5-5.7 [facility] Comment on above: Performed By: #### L [id number] #### [facility] ([facility]) [address] [place] [address] ALP [Catalytic activity/Vol] 73 U/L Normal 34-104 [facility] Comment on above: Performed By: #### L [id number] #### [facility] ([facility]) [address] [place] [address] ALT [Catalytic activity/Vol] 91 U/L High 7-52 [facility] Comment on above: Performed By: #### L [id number] #### [facility] ([facility]) [address] [place] [address] Anion gap [Moles/Vol] 12 mmol/L Normal 7-20 [facility] Comment on above: Performed By: #### L [id number] #### [facility] ([facility]) [address] [place] [address] AST [Catalytic activity/Vol] 22 U/L Normal 13-39 [facility] Comment on above: Performed By: #### L [id number] #### [facility] ([facility]) [address] [place] [address] Bilirubin [Mass/Vol] 0.5 mg/dL Normal 0.3-1.0 [facility] Comment on above: Performed By: #### L [id number] #### [facility] ([facility]) [address] [place] [address] Calcium [Mass/Vol] 8.3 mg/dL Low 8.6-10.3 [facility] Comment on above: Performed By: #### L [id number] #### [facility] ([facility]) [address] [place] [address] Chloride [Moles/Vol] 93 mmol/L Low 98-107 [facility] Comment on above: Performed By: #### L [id number] #### [facility] ([facility]) [address] [place] [address] CO2 [Moles/Vol] 31 mmol/L Normal 21-31 [facility] Comment on above: Performed By: #### L [id number] #### [facility] ([facility]) [address] [place] [address] Creatinine [Mass/Vol] 0.73 mg/dL Normal 0.60-1.20 [facility] Comment on above: Performed By: #### L [id number] #### [facility] ([facility]) [address] [place] [address] GLOMERULAR FILTRATION RATE ML/MIN/1.73 SQ M.PREDICTED 80.0 mL/min/1.73m*2 Normal >60.0 [facility] Comment on above: Result Comment: The [facility]???s estimated glomerular filtration rate (eGFR) will no longer include consideration of race in its calculation. The National Kidney Foundation???s eGFR Task Force developed new recommendations for the estimation of the glomerular filtration rate in the [place] They recommend immediate implementation of the new equation refit without the race variable in all laboratories because the calculation does not include race. In addition to not including race in the calculation and reporting, it included diversity in its development, and has acceptable performance characteristics and potential consequences that do not disproportionately affect any one group of individuals. Performed By: #### L [id number] #### [facility] ([facility]) [address] [place] [address] Glucose [Mass/Vol] 161 mg/dL High 70-100 [facility] Comment on above: Performed By: #### L [id number] #### [facility] ([facility]) [address] [place] [address] Potassium [Moles/Vol] 3.1 mmol/L Low 3.5-5.1 [facility] Comment on above: Performed By: #### L [id number] #### [facility] ([facility]) [address] [facility] [place] [place] [address] Protein [Mass/Vol] 6.5 g/dL Normal 6.0-8.3 [facility] Comment on above: Performed By: #### L [id number] #### [facility] ([facility]) [address] [place] [address] Sodium [Moles/Vol] 133 mmol/L Low 136-145 [facility] Comment on above: Performed By: #### L [id number] #### [facility] ([facility]) [address] [place] [address] Urea nitrogen [Mass/Vol] 18 mg/dL Normal 7-25 [facility] Comment on above: Performed By: #### L [id number] #### [facility] ([facility]) [address] [place] [address] UREA NITROGEN/CREATININE (MASS RATIO) IN SER/PLAS 24.7 Normal [facility] Comment on above: Performed By: #### L [id number] #### [facility] ([facility] [address] [place] [address] HPon 03-13-2024 HP -- Attestation signed by Xander Brian MD at 03/13/2024 11:12 AM I agree with above and I have personally reviewed the plans with Mrs. Gifford, including the attendant risks. H&P reviewed. The patient was examined and there are no changes to the H&P. Large pericardial effusion for hemodynamic assessment and pericardiocentesis. Discussed risks, benefits, and alternative therapies with the patient, she understands and willing to proceed with R+L cath and pericardiocentesis. 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 Normal [facility] NON-MEAT COUNTER WORKER CYTOLOGY - CELLULAR EXAMon 03-13-2024 LAB AP CASE REPORT [facility] Comment on above: Result Comment: Non- gynecologic Cytology Case: [id number] Authorizing Provider: Jami Su MD Collected: 03/13/2024 1229 Ordering Location: [facility] Received: 03/14/2024 0805 Pathologist: Toya Patel MD Specimen: Peritoneal fluid Performed By: #### L [id number] #### [facility] ([facility]) [address] [place] [address] LAB AP CLINICAL INFORMATION [facility] Comment on above: Result Comment: Post -Op Diagnoses No Dx found. Performed By: #### L [id number] #### [facility] ([facility]) [address] [place] [address] LAB AP GROSS DESCRIPTION [facility] Comment on above: Result Comment: 300 mL cloudy, red fluid. Performed By: #### L [id number] #### [facility] ([facility]) [address] [place] [address] LAB AP REPORT FINAL DIAGNOSIS NARRATIVE Normal [facility] Comment on above: Result Comment: A. P eritoneal fluid: - Negative for malignancy. - Marked acute inflammation. Performed By: #### L [id number] #### [facility] ([facility]) [address] [place] [address] NURSNOTEon 03-13-2024 NURSNOTE Report given to SHERRY Cagle from Mariaa POWELL Any medications or safety alerts were reviewed. Any pending diagnostics and notifications were also reviewed, as well as any safety concerns or issues, abnormal labs, abnormal imagining, and abnormal assessment findings. Questions were answered. Normal [facility] PATHOLOGY REVIEWon PATHOLOGY REVIEW Reviewed. Normal [facility] Comment on above: Result Comment: Elec tronically signed by Harjit Castellon MD on 03/14/24 at 10:44 AM. Performed By: #### L [id number] #### [facility] ([facility]) [address] [place] [address] POCT GLUCOSE METER UNSOLICIT ED RESULTSon 03-13-2024 Glucose [Mass/Vol] 131 mg/dL High 70-105 [facility] Comment on above: Order Comment: Waive d Testing in the ED is performed under the ED CLIA certificate #[id number]. Result Comment: [email or web address] Performed By: #### L [id number] ####[facility] ([facility])[address] [place] [address] Glucose [Mass/Vol] 110 mg/dL High 70-105 [facility] Comment on above: Order Comment: Waive d Testing in the ED is performed under the ED CLIA certificate #[id number]. Result Comment: [email or web address] Performed By: #### L [id number] #### [facility] ([facility]) [address] [place] [address] Glucose [Mass/Vol] 120 mg/dL High 70-105 [facility] Comment on above: Order Comment: Waive d Testing in the ED is performed under the ED CLIA certificate #[id number]. Result Comment: [email or web address] Performed By: #### L [id number] #### [facility] ([facility]) [address] [place] [address] PROTIME-INRon 03-13-2024 INR IN PPP BY COAGULATION ASSAY 1.48 High 0.90-1.10 [facility] Comment on above: Result Comment: ACCC P RECOMMENDED INR FOR WARFARIN THERAPY CONDITION INR PROPHYLAXIS OF VENOUS THROMBOSIS 2-3 (HIGH-RISK SURGERY) TREATMENT OF VENOUS THROMBOSIS 2-3 TREATMENT OF PULMONARY EMBOLISM 2-3 PREVENTION OF SYSTEMIC EMBOLISM: 2-3 ACUTE MYOCARDIAL INFARCTION TISSUE HEART VALVES VALVULAR HEART DISEASE ATRIAL FIBRILLATION RECURRENT SYSTEMIC EMBOLISM MECHANICAL HEART VALVE 2.5-3.5 FROM: ORAL ANTICOAGULANTS. MECHANISM OF ACTION, CLINICAL EFFECTIVENESS, AND OPTIMAL THERAPEUTIC RANGE. CHEST 1995;108:231S-246S. Performed By: #### L [id number] ####[facility] ([facility]AKER)[address] [place] [address] PROTHROMBIN TIME (PT) IN PPP BY COAGULATION ASSAY 17.8 Seconds High 12.3-14.8 [facility] Comment on above: Performed By: #### L [id number] ####[facility] ([facility]AKER)[address] [place] [address] 30on 03-12-2024 30 The patient is Moderately Stable - Low risk of patient condition declining or worsening The patient's goals for the shift include rest and comfort The clinical goals for the shift include VSS Over the shift, the patient did not make progress toward the following goals. Barriers to progression include anxiety. Recommendations to address these barriers include reassurance. Problem: Chronic Conditions and Co-morbidities Goal: Patient's chronic conditions and co-morbidity symptoms are monitored and maintained or improved Outcome: Progressing Problem: Pain - Adult Goal: Verbalizes/displays adequate comfort level or baseline comfort level Outcome: Progressing Problem: Safety - Adult Goal: Free from fall injury Outcome: Progressing Normal [facility] 30 Daily Case Managemen t Update Multidisciplinary rounds have been completed. Barriers to Discharge: Pending clinical course and improvement in clinical condition. Patient underwent echocardiogram today; pending results. Patient to have thoracentesis within next 48 hours; Rivaroxaban discontinued today. Discharge plan is home when medically ready. Diet: Dietary Orders (From admission, onward) Start Ordered 03/10/24 1147 Dietary nutrition supplements Lunch; Boost Glucose Control; Chocolate; 8 oz; Oral Until discontinued Question Answer Comment Deliver with Lunch Select supplement: Boost Glucose Control Flavor: Chocolate Strength: 8 oz Route Oral 03/10/24 1147 03/09/24 0742 Special Kitchen Request Once Comments: Oatmeal with brown sugar, a piece of toast with jelly, and a scrambled egg please. Iced tea if you have it too, thanks! 03/09/2442 03/08/24 2243 Regular Diet Heart Healthy/HTN, CABG,Stroke, (2gNA, low fat, low cholesterol); Diabetic Female (carb 45g/meal) Diet effective now Comments: Fluid restriction 1200 ml per 24 hours Question Answer Comment Room Service? Yes Fat restriction: Heart Healthy/HTN, CABG,Stroke, (2gNA, low fat, low cholesterol) Carbohydrate restriction: Diabetic Female (carb 45g/meal) 03/08/24224103/08/24 185 Special Kitchen Request Once Comments: Can she please have 2 pieces of toast with jelly, a scrambled egg, half a peanut butter and jelly, and a sherbert? Thanks! 03/08/24 185 Physician Expected Discharge Date: Discharge Delays: PT Six Click Score: 23 OT Six Click Score: PT Recommendations: OT Recommendations: New Consults: Consult Orders (From admission, onward) Start Ordered 03/08/241932 Inpatient consult to Cardiology Once Specialty: Cardiology Provider: (Not yet assigned) Question Answer Comment Reason for Consult? pericardial effusion Consulting [employer] CARDIOLOGY TEAM Level of Consultation Consultation and Management 03/08/24 1934 Normal [facility] 30 The patient is Moderately Stable - Low risk of patient condition declining or worsening The patient's goals for the shift include Rest; Comfort The clinical goals for the shift include VSS; Good Breathing Problem: Pain - Adult Goal: Verbalizes/displays adequate comfort level or baseline comfort level Outcome: Progressing Problem: Safety - Adult Goal: Free from fall injury Outcome: Progressing Flowsheets (Taken 03/11/20241999) Free from fall injury: Assess patient frequently for physical needs [place] fall precautions as indicated by assessment Educate patient/family on patient safety, including physical limitations Instruct patient to call for assistance with activity based on assessment Problem: Discharge Planning Goal: Discharge to home or other facility with appropriate resources Outcome: Progressing Flowsheets (Taken 03/11/20241999) Discharge to home or other facility with appropriate resources: Identify barriers to discharge with patient and caregiver Arrange for needed discharge resources and transportation as appropriate Identify discharge learning needs (meds, wound care, etc) Problem: Chronic Conditions and Co-morbidities Goal: Patient's chronic conditions and co-morbidity symptoms are monitored and maintained or improved Outcome: Progressing Flowsheets (Taken 03/11/20241999) Care Plan - Patient's Chronic Conditions and Co-Morbidity Symptoms are Monitored and Maintained or Improved: Monitor and assess patient's chronic conditions and comorbid symptoms for stability, deterioration, or improvement Collaborate with multidisciplinary team to address chronic and comorbid conditions and prevent exacerbation or deterioration Update acute care plan with appropriate goals if chronic or comorbid symptoms are exacerbated and prevent overall improvement and discharge Problem: Respiratory - Adult Goal: Achieves optimal ventilation and oxygenation Outcome: Progressing Flowsheets (Taken 03/11/20241999) Achieves optimal ventilation and oxygenation: Assess for changes in respiratory status Assess for changes in mentation and behavior Position to facilitate oxygenation and minimize respiratory effort Oxygen supplementation based on oxygen saturation or arterial blood gases Encourage broncho-pulmonary hygiene including cough, deep breathe, incentive spirometry Assess and instruct to report shortness of breath or any respiratory difficulty Respiratory therapy support as indicated Problem: Cardiovascular - Adult Goal: Maintains optimal cardiac output and hemodynamic stability Outcome: Progressing Flowsheets (Taken 03/11/20241999) Maintains optimal cardiac output and hemodynamic stability: Monitor blood pressure and heart rate Monitor urine output and notify Licensed Independent Practitioner for values outside of normal range Assess for signs of decreased cardiac output Goal: Absence of cardiac dysrhythmias or at baseline Outcome: Progressing Flowsheets (Taken 03/11/20241999) Absence of cardiac dysrhythmias or at baseline: Monitor cardiac rate and rhythm Assess for signs of decreased cardiac output Problem: Skin/Tissue Integrity - Adult Goal: Skin integrity remains intact Outcome: Progressing Flowsheets (Taken 03/11/20241999) Skin integrity remains intact: Monitor for areas of redness and/or skin breakdown Problem: Gastrointestinal - Adult Goal: Maintains or returns to baseline bowel function Outcome: Progressing Flowsheets (Taken 03/11/20241999) Maintains or returns to baseline bowel function: Assess bowel function Encourage oral fluids to ensure adequate hydration Administer ordered medications as needed Encourage mobilization and activity Goal: Maintains adequate nutritional intake Outcome: Progressing Flowsheets (Taken 03/11/20241999) Maintains adequate nutritional intake: Monitor percentage of each meal consumed Identify factors contributing to decreased intake, treat as appropriate Assist with meals as needed Monitor intake and output, weight and lab values Problem: Metabolic/Fluid and Electrolytes - Adult Goal: Electrolytes maintained within normal limits Outcome: Progressing Flowsheets (Taken 03/11/20241999) Electrolytes maintained within normal limits: Monitor labs and assess patient for signs and symptoms of electrolyte imbalances Administer electrolyte replacement as ordered Monitor response to electrolyte replacements, including repeat lab results as appropriate Goal: Hemodynamic stability and optimal renal function maintained Outcome: Progressing Flowsheets (Taken 03/11/20241999) Hemodynamic stability and optimal renal function maintained: Monitor labs and assess for signs and symptoms of volume excess or deficit Monitor intake, output and patient weight Monitor urine specific gravity, serum osmolarity and serum sodium as indicated or ordered Monitor response to interventions for patient's volume (more content not included)... Normal [facility] CBC WITH AUTO DIFFERENTIALon 03-12-2024 Basophils (Bld) [#/Vol] 0.05 10*3/uL Normal 0.00-0.20 [facility] Comment on above: Performed By: #### L [id number] ####[facility] ([facility]ER)[address] [place] [address] Basophils/100 WBC (Bld) 0.5 % Normal 0.0-1.0 [facility] Comment on above: Performed By: #### L [id number] ####[facility] ([facility]ER)[address] [place] [address] Eosinophils (Bld) [#/Vol] 0.28 10*3/uL Normal 0.00-0.50 [facility] Comment on above: Performed By: #### L [id number] ####[facility] ([facility]ER)[address] [place] [address] Eosinophils/100 WBC (Bld) 3.1 % Normal 0.0-6.0 [facility] Comment on above: Performed By: #### L [id number] ####[facility] ([facility]ER)[address] [place] [address] Erythrocyte distribution width (RBC) [Ratio] 18.3 % High 11.5-15.0 [facility] Comment on above: Performed By: #### L [id number] ####[facility] ([facility])[address] [place] [address] ERYTHROCYTE MEAN CORPUSCULAR HEMOGLOBIN CONCENTRATION (G/DL) BY AUTOMATED 29.3 g/dL Low 32.0-35.0 [facility] Comment on above: Performed By: #### L [id number] ####[facility] ([facility]ER)[address] [place] [address] Hematocrit (Bld) [Volume fraction] 29.4 % Low 36.0-48.0 [facility] Comment on above: Performed By: #### L [id number] ####[facility] ([facility]ER)[address] [place] [address] Hemoglobin (Bld) [Mass/Vol] 8.6 g/dL Low 12.0-15.0 [facility] Comment on above: Performed By: #### L [id number] ####[facility] ([facility]ER)[address] [place] [address] Immature granulocytes (Bld) [#/Vol] 0.08 10*3/uL Normal 0.00-0.20 [facility] Comment on above: Performed By: #### L [id number] ####[facility] ([facility])[address] [place] [address] Immature granulocytes/100 WBC (Bld) 0.9 % Normal 0.0-1.0 [facility] Comment on above: Performed By: #### L [id number] ####[facility] ([facility]ER)[address] [place] [address] Lymphocytes (Bld) [#/Vol] 2.23 10*3/uL Normal 1.20-4.00 [facility] Comment on above: Performed By: #### L [id number] ####[facility] ([facility]ER)[address] [place] [address] Lymphocytes/100 WBC (Bld) 24.5 % Normal 20.0-45.0 [facility] Comment on above: Performed By: #### L [id number] ####[facility] ([facility]ER)[address] [place] [address] MCH (RBC) [Entitic mass] 22.3 pg Low 27.0-33.0 [facility] Comment on above: Performed By: #### L [id number] ####[facility] (BE[facility]ER)[address] [place] [address] MCV (RBC) [Entitic vol] 76.2 fL Low 82.0-98.0 [facility] Comment on above: Performed By: #### L [id number] ####[facility] ([facility]ER)[address] [place] [address] Monocytes (Bld) [#/Vol] 1.01 10*3/uL High 0.10-1.00 [facility] Comment on above: Performed By: #### L [id number] ####[facility] ([facility]ER)[address] [place] [address] Monocytes/100 WBC (Bld) 11.1 % Normal 5.0-12.0 [facility] Comment on above: Performed By: #### L [id number] ####[facility] ([facility]ER)[address] [place] [address] Neutrophils (Bld) [#/Vol] 5.45 10*3/uL Normal 1.60-7.60 [facility] Comment on above: Performed By: #### L [id number] ####[facility] ([facility]ER)[address] [place] [address] Neutrophils/100 WBC (Bld) 59.9 % Normal 40.0-72.0 [facility] Comment on above: Performed By: #### L [id number] ####[facility] ([facility]ER)[address] [place] [address] NRBC (PER 100 WBCS) BY AUTOMATED COUNT 0.0 % Normal 0 [facility] Comment on above: Performed By: #### L [id number] ####[facility] ([facility]ER)[address] [place] [address] PLATELETS (10*3/UL) IN BLOOD AUTOMATED COUNT 363 10*3/uL Normal 150-400 [facility] Comment on above: Performed By: #### L [id number] ####[facility] ([facility])[address] [place] [address] RBC (Bld) [#/Vol] 3.86 10*6/uL Normal 3.80-5.00 [facility] Comment on above: Performed By: #### L [id number] ####[facility] ([facility])[address] [place] [address] WBC (Bld) [#/Vol] 9.10 10*3/uL Normal 4.00-10.60 [facility] Comment on above: Performed By: #### L [id number] ####[facility] ([facility])[address] [place] [address] COMPREHENSIVE METABOLIC PANE Robbie 03-12-2024 Albumin [Mass/Vol] 3.0 g/dL Low 3.5-5.7 [facility] Comment on above: Performed By: #### L [id number] #### [facility] ([facility]) [address] [place] [address] ALP [Catalytic activity/Vol] 67 U/L Normal 34-104 [facility] Comment on above: Performed By: #### L [id number] #### [facility] ([facility]) [address] [place] [address] ALT [Catalytic activity/Vol] 138 U/L High 7-52 [facility] Comment on above: Performed By: #### L [id number] #### [facility] ([facility]) [address] [place] [address] Anion gap [Moles/Vol] 10 mmol/L Normal 7-20 [facility] Comment on above: Performed By: #### L [id number] #### [facility] ([facility]) [address] [place] [address] AST [Catalytic activity/Vol] 43 U/L High 13-39 [facility] Comment on above: Performed By: #### L [id number] #### [facility] ([facility]) [address] [place] [address] Bilirubin [Mass/Vol] 0.5 mg/dL Normal 0.3-1.0 [facility] Comment on above: Performed By: #### L [id number] #### [facility] ([facility]) [address] [place] [address] Calcium [Mass/Vol] 8.3 mg/dL Low 8.6-10.3 [facility] Comment on above: Performed By: #### L [id number] #### [facility] ([facility]) [address] [place] [address] Chloride [Moles/Vol] 94 mmol/L Low 98-107 [facility] Comment on above: Performed By: #### L [id number] #### [facility] ([facility]) [address] [place] [address] CO2 [Moles/Vol] 33 mmol/L High 21-31 [facility] Comment on above: Performed By: #### L [id number] #### [facility] ([facility]) [address] [place] [address] Creatinine [Mass/Vol] 0.75 mg/dL Normal 0.60-1.20 [facility] Comment on above: Performed By: #### L [id number] #### [facility] ([facility]) [address] [place] [address] GLOMERULAR FILTRATION RATE ML/MIN/1.73 SQ M.PREDICTED 77.5 mL/min/1.73m*2 Normal >60.0 [facility] Comment on above: Result Comment: The [facility]???s estimated glomerular filtration rate (eGFR) will no longer include consideration of race in its calculation. The National Kidney Foundation???s eGFR Task Force developed new recommendations for the estimation of the glomerular filtration rate in the [place] They recommend immediate implementation of the new equation refit without the race variable in all laboratories because the calculation does not include race. In addition to not including race in the calculation and reporting, it included diversity in its development, and has acceptable performance characteristics and potential consequences that do not disproportionately affect any one group of individuals. Performed By: #### L [id number] #### [facility] ([facility]) [address] [place] [address] Glucose [Mass/Vol] 114 mg/dL High 70-100 [facility] Comment on above: Performed By: #### L [id number] #### [facility] ([facility]) [address] [place] [address] Potassium [Moles/Vol] 3.6 mmol/L Normal 3.5-5.1 [facility] Comment on above: Performed By: #### L [id number] #### [facility] ([facility]) [address] [place] [address] Protein [Mass/Vol] 6.3 g/dL Normal 6.0-8.3 [facility] Comment on above: Performed By: #### L [id number] #### [facility] ([facility]) [address] [place] [address] Sodium [Moles/Vol] 133 mmol/L Low 136-145 [facility] Comment on above: Performed By: #### L [id number] #### [facility] ([facility]) [address] [place] [address] Urea nitrogen [Mass/Vol] 23 mg/dL Normal 7-25 [facility] Comment on above: Performed By: #### L [id number] #### [facility] ([facility]) [address] [place] [address] UREA NITROGEN/CREATININE (MASS RATIO) IN SER/PLAS 30.7 Normal [facility] Comment on above: Performed By: #### L [id number] #### [facility] ([facility]) [address] [place] [address] CONSULTon 03-12-2024 CONSULT Inpatient Hematology Oncology Fellow availability Tuesday - 830am-500pm, Tuesday 830am-430pm and Tuesday 830am-1200pm During these hours, Please contact Hematology Oncology Fellow through [facility] [employer] first For Hematology Oncology needs on weekends and after hours, please page the on-call fellow through the hospital deep submergence vehicle operator. NEW INPATIENT HEMATOLOGY / ONCOLOGY CONSULT NOTE Patient ID: Karen Gifford, 88 y.o. female Requested by: Maureen, Maureen, PCP: Vincenzo Austin MD : [id number] REASON FOR CONSULTATION: CHIEF COMPLAINT: No chief complaint on file. HISTORY OF PRESENT ILLNESS: Karen Gifford is an 88 y.o. female with chronic atrial fibrillation s/p permanent pacemaker for sinus node dysfunction following DC cardioversion presented to the ER with the progressive shortness of breath that started a week before presentation to the hospital. Her PCP performed Xray which was not significant, she was empirically been treated with antibiotics. CT Chest/ Abdomen and Pelvis large pericardial effusion and bilateral pleural effusions and 5.9 cm simple cystic structure deep within the pelvis possibly represents a residual adnexal cyst given the reported history. Correlate with outside priors to assess for stability She had an appointment at [facility] with Dr Linares for the workup of the simple cystic mass in the pelvis. She couldnot make it to her appointment as she was admitted to [facility] for the workup and management of the shortness of breath. PAST HEMATOLOGY / ONCOLOGY HISTORY: Oncology History No history exists. REVIEW OF SYSTEMS: Complete 10-point ROS is negative except as mentioned in HPI. MEDICAL HISTORY: Past Medical History: Diagnosis Date A-fib (CMS/HCC) CVA (cerebral vascular accident) (CMS/HCC) GERD (gastroesophageal reflux disease) Hyperlipidemia Hypertension LANEY (obstructive sleep apnea) Osteoarthritis SURGICAL HISTORY: Past Surgical History: Procedure Laterality Date APPENDECTOMY CARPAL TUNNEL RELEASE CHOLECYSTECTOMY HYSTERECTOMY FAMILY HISTORY: No family history on file. SOCIAL HISTORY: Social History Socioeconomic History Marital status: Spouse name: Not on file Number of children: Not on file Years of education: Not on file Highest education level: Not on file Occupational History Not on file Tobacco Use Smoking status: Never Smokeless tobacco: Not on file Substance and Sexual Activity Alcohol use: Not on file Drug use: Not on file Sexual activity: Not on file Other Topics Concern Not on file Social History Narrative Not on file Social Determinants of Health Financial Resource Strain: Low Risk (03/08/2024) Overall Financial Resource Strain (CARDIA) Difficulty of Paying Living Expenses: Not hard at all Food Insecurity: No Food Insecurity (03/08/2024) Hunger Vital Sign Worried About Running Out of Food in the Last Year: Never true Ran Out of Food in the Last Year: Not on file Transportation Needs: No Transportation Needs (03/08/2024) Transportation Lack of Transportation (Medical): No Lack of Transportation (Non-Medical): Not on file Physical Activity: Not on file Stress: Not on file Social Connections: Not on file Intimate Partner Violence: Unknown (03/08/2024) Humiliation, Afraid, Rape, and Kick questionnaire Fear of Current or Ex-Partner: No Emotionally Abused: Not on file Physically Abused: Not on file Sexually Abused: Not on file Housing Stability: Low Risk (03/08/2024) Housing Stability Vital Sign Unable to Pay for Housing in the Last Year: Not on file Number of Places Lived in the Last Year: Not on file Unstable Housing in the Last Year: No MEDICATIONS: No current facility-administered medications on file prior to encounter. Current Outpatient Medications on File Prior to Encounter Medication Sig Dispense Refill atenolol (Tenormin) 100 mg tablet Take 100 mg by mouth in the morning and at bedtime. bumetanide (Bumex) 1 mg tablet Take 1 tablet by mouth in the morning. dilTIAZem (Cardizem) 30 mg immediate release tablet Take 1 tablet (30 mg) by mouth in the morning and at bedtime. 60 tablet 0 dilTIAZem CD (Cardizem CD) 300 mg 24 hr capsule Take 1 capsule (300 mg) by mouth in the morning. (Patient taking differently: Take 300 mg by mouth before lunch.) 90 capsule 3 hydrALAZINE (Apresoline) 100 mg tablet Take 100 mg by mouth in the morning, at noon, and at bedtime. latanoprost (Xalatan) 0.005 % ophthalmic solution Administer 1 drop into both eyes at bedtime. liothyronine (Cytomel) 5 mcg tablet Take 2 tablets by mouth in the morning. simvastatin (Zocor) 10 mg tablet Take 10 mg by mouth at bedtime. timolol (Betimol) 0.5 % ophthalmic solution Administer 1 drop into both eyes two times daily. Xarelto 20 mg tablet TAKE 1 TABLET EVERY EVENING WITH FOOD 90 tablet 3 [DISCONTINUED] amiodarone (Pacerone) 200 mg tablet Take 2 tablets (400 mg) b (more content not included)... Normal [facility] POCT GLUCOSE METER UNSOLICIT ED RESULTSon 03-12-2024 Glucose [Mass/Vol] 143 mg/dL High 70-105 [facility] Comment on above: Order Comment: Waive d Testing in the ED is performed under the ED CLIA certificate #[id number]. Result Comment: [email or web address] Performed By: #### L [id number] #### [facility] ([facility]) [address] [place] [address] Glucose [Mass/Vol] 126 mg/dL High 70-105 [facility] Comment on above: Order Comment: Waive d Testing in the ED is performed under the ED CLIA certificate #[id number]. Result Comment: [email or web address] Performed By: #### L [id number] ####[facility] ([facility])[address] [place] [address] Glucose [Mass/Vol] 150 mg/dL High 70-105 [facility] Comment on above: Order Comment: Waive d Testing in the ED is performed under the ED CLIA certificate #[id number]. Result Comment: [email or web address] Performed By: #### L [id number] #### [facility] ([facility]) [address] [place] [address] Glucose [Mass/Vol] 113 mg/dL High 70-105 [facility] Comment on above: Order Comment: Waive d Testing in the ED is performed under the ED CLIA certificate #[id number]. Result Comment: [email or web address] Performed By: #### L [id number] #### [facility] ([employer] [address] [place] [address] Glucose [Mass/Vol] 141 mg/dL High 70-105 [facility] Comment on above: Order Comment: Waive d Testing in the ED is performed under the ED CLIA certificate #[id number]. Result Comment: [email or web address] Performed By: #### L [id number] #### [facility] ([facility]) [address] [place] [address] SEDIMENTATION RATEon 024 SEDIMENTATION RATE, ERYTHROCYTE 60 mm/hr High <=20 [facility] Comment on above: Performed By: #### L [id number] #### [facility] ([facility]) [address] [place] [address] 30on 03-11-2024 30 The patient is Moderately Unstable - Medium risk of patient condition declining or worsening The patient's goals for the shift include Rest; Comfort The clinical goals for the shift include VSS; Good Breathing Problem: Pain - Adult Goal: Verbalizes/displays adequate comfort level or baseline comfort level Outcome: Progressing Problem: Safety - Adult Goal: Free from fall injury Outcome: Progressing Problem: Skin/Tissue Integrity - Adult Goal: Skin integrity remains intact Outcome: Progressing Problem: Metabolic/Fluid and Electrolytes - Adult Goal: Electrolytes maintained within normal limits Outcome: Progressing Goal: Hemodynamic stability and optimal renal function maintained Outcome: Progressing Goal: Glucose maintained within prescribed range Outcome: Progressing Problem: Hematologic - Adult Goal: Maintains hematologic stability Outcome: Progressing Normal [facility] 30 The patient is Moderately Stable - Low risk of patient condition declining or worsening The patient's goals for the shift include Rest; Comfort The clinical goals for the shift include VSS; Good Breathing Problem: Pain - Adult Goal: Verbalizes/displays adequate comfort level or baseline comfort level Outcome: Progressing Problem: Safety - Adult Goal: Free from fall injury Outcome: Progressing Flowsheets (Taken 03/10/20241944) Free from fall injury: Assess patient frequently for physical needs Identify cognitive and physical deficits and behaviors that affect risk of falls [place] fall precautions as indicated by assessment Educate patient/family on patient safety, including physical limitations Instruct patient to call for assistance with activity based on assessment Problem: Discharge Planning Goal: Discharge to home or other facility with appropriate resources Outcome: Progressing Flowsheets (Taken 03/10/20241944) Discharge to home or other facility with appropriate resources: Identify barriers to discharge with patient and caregiver Arrange for needed discharge resources and transportation as appropriate Identify discharge learning needs (meds, wound care, etc) Problem: Chronic Conditions and Co-morbidities Goal: Patient's chronic conditions and co-morbidity symptoms are monitored and maintained or improved Outcome: Progressing Flowsheets (Taken 03/10/20241944) Care Plan - Patient's Chronic Conditions and Co-Morbidity Symptoms are Monitored and Maintained or Improved: Monitor and assess patient's chronic conditions and comorbid symptoms for stability, deterioration, or improvement Collaborate with multidisciplinary team to address chronic and comorbid conditions and prevent exacerbation or deterioration Update acute care plan with appropriate goals if chronic or comorbid symptoms are exacerbated and prevent overall improvement and discharge Problem: Respiratory - Adult Goal: Achieves optimal ventilation and oxygenation Outcome: Progressing Flowsheets (Taken 03/10/20241944) Achieves optimal ventilation and oxygenation: Assess for changes in respiratory status Assess for changes in mentation and behavior Position to facilitate oxygenation and minimize respiratory effort Oxygen supplementation based on oxygen saturation or arterial blood gases Encourage broncho-pulmonary hygiene including cough, deep breathe, incentive spirometry Assess and instruct to report shortness of breath or any respiratory difficulty Respiratory therapy support as indicated Problem: Cardiovascular - Adult Goal: Maintains optimal cardiac output and hemodynamic stability Outcome: Progressing Goal: Absence of cardiac dysrhythmias or at baseline Outcome: Progressing Problem: Skin/Tissue Integrity - Adult Goal: Skin integrity remains intact Outcome: Progressing Flowsheets (Taken 03/10/20241944) Skin integrity remains intact: Monitor for areas of redness and/or skin breakdown Problem: Gastrointestinal - Adult Goal: Maintains or returns to baseline bowel function Outcome: Progressing Flowsheets (Taken 03/10/20241944) Maintains or returns to baseline bowel function: Assess bowel function Encourage oral fluids to ensure adequate hydration Administer ordered medications as needed Encourage mobilization and activity Goal: Maintains adequate nutritional intake Outcome: Progressing Flowsheets (Taken 03/10/20241944) Maintains adequate nutritional intake: Monitor percentage of each meal consumed Identify factors contributing to decreased intake, treat as appropriate Assist with meals as needed Monitor intake and output, weight and lab values Problem: Metabolic/Fluid and Electrolytes - Adult Goal: Electrolytes maintained within normal limits Outcome: Progressing Flowsheets (Taken 03/10/20241944) Electrolytes maintained within normal limits: Monitor labs and assess patient for signs and symptoms of electrolyte imbalances Administer electrolyte replacement as ordered Monitor response to electrolyte replacements, including repeat lab results as appropriate Goal: Hemodynamic stability and optimal renal function maintained Outcome: Progressing Flowsheets (Taken 03/10/20241944) Hemodynamic stability and optimal renal function maintained: Monitor labs and assess for signs and symptoms of volume excess or deficit Monitor intake, output and patient weight Monitor urine specific gravity, serum osmolarity and serum sodium as indicated or ordered Monitor response to interventions for patient's volume status, including labs, urine output, blood pressure (other measures as available) Goal: Glucose maintained within prescribed range Outcome: Progressing Flowsheets (Taken 03/10/20241944) Glucose maintained within prescribed range: Monitor blood glucose as ordered Assess for signs and symptoms of hyperglycemia and hypoglycemia Administer ordered medicatio (more content not included)... Normal [facility] CBC WITH AUTO DIFFERENTIALon 03-11-2024 Basophils (Bld) [#/Vol] 0.03 10*3/uL Normal 0.00-0.20 [facility] Comment on above: Performed By: #### L [id number] ####[facility] ([facility])[address] [place] [address] Basophils/100 WBC (Bld) 0.3 % Normal 0.0-1.0 [facility] Comment on above: Performed By: #### L [id number] ####[facility] ([facility])[address] [place] [address] Eosinophils (Bld) [#/Vol] 0.33 10*3/uL Normal 0.00-0.50 [facility] Comment on above: Performed By: #### L [id number] ####[facility] ([facility])[address] [facility] [address] Eosinophils/100 WBC (Bld) 3.5 % Normal 0.0-6.0 [facility] Comment on above: Performed By: #### L [id number] ####[facility] ([facility])[address] [place] [address] Erythrocyte distribution width (RBC) [Ratio] 18.2 % High 11.5-15.0 [facility] Comment on above: Performed By: #### L [id number] ####[facility] ([facility])[address] [place] [address] ERYTHROCYTE MEAN CORPUSCULAR HEMOGLOBIN CONCENTRATION (G/DL) BY AUTOMATED 29.9 g/dL Low 32.0-35.0 [facility] Comment on above: Performed By: #### L [id number] ####[facility] ([facility])[address] [place] [address] Hematocrit (Bld) [Volume fraction] 28.4 % Low 36.0-48.0 [facility] Comment on above: Performed By: #### L [id number] ####[facility] [place] [address] Hemoglobin (Bld) [Mass/Vol] 8.5 g/dL Low 12.0-15.0 [facility] Comment on above: Performed By: #### L [id number] ####[facility] ([facility])[address] [place] [address] Immature granulocytes (Bld) [#/Vol] 0.07 10*3/uL Normal 0.00-0.20 [facility] Comment on above: Performed By: #### L [id number] ####[facility] ([facility])[address] [place] [address] Immature granulocytes/100 WBC (Bld) 0.7 % Normal 0.0-1.0 [facility] Comment on above: Performed By: #### L [id number] ####[facility] [place] [address] Lymphocytes (Bld) [#/Vol] 1.81 10*3/uL Normal 1.20-4.00 [facility] Comment on above: Performed By: #### L [id number] ####[facility] ([facility])[address] [place] [address] Lymphocytes/100 WBC (Bld) 19.1 % Low 20.0-45.0 [facility] Comment on above: Performed By: #### L [id number] ####[facility] ([facility])[address] [place] [address] MCH (RBC) [Entitic mass] 22.0 pg Low 27.0-33.0 [facility] Comment on above: Performed By: #### L [id number] ####[facility] ([facility])[address] [place] [address] MCV (RBC) [Entitic vol] 73.6 fL Low 82.0-98.0 [facility] Comment on above: Performed By: #### L [id number] ####[facility] ([facility])[address] [place] [address] Monocytes (Bld) [#/Vol] 1.25 10*3/uL High 0.10-1.00 [facility] Comment on above: Performed By: #### L [id number] ####[facility] ([facility])[address] [place] [address] Monocytes/100 WBC (Bld) 13.2 % High 5.0-12.0 [facility] Comment on above: Performed By: #### L [id number] ####[facility] ([facility])[address] [place] [address] Neutrophils (Bld) [#/Vol] 6.01 10*3/uL Normal 1.60-7.60 [facility] Comment on above: Performed By: #### L [id number] ####[facility] ([facility])[address] [place] [address] Neutrophils/100 WBC (Bld) 63.2 % Normal 40.0-72.0 [facility] Comment on above: Performed By: #### L [id number] ####[facility] ([facility])[address] [place] [address] NRBC (PER 100 WBCS) BY AUTOMATED COUNT 0.0 % Normal 0 [facility] Comment on above: Performed By: #### L [id number] ####[facility] ([facility])[address] [place] [address] PLATELETS (10*3/UL) IN BLOOD AUTOMATED COUNT 317 10*3/uL Normal 150-400 [facility] Comment on above: Performed By: #### L [id number] ####[facility] ([facility])[address] [place] [address] RBC (Bld) [#/Vol] 3.86 10*6/uL Normal 3.80-5.00 [facility] Comment on above: Performed By: #### L [id number] ####[facility] ([facility])[address] [place] [address] WBC (Bld) [#/Vol] 9.50 10*3/uL Normal 4.00-10.60 [facility] Comment on above: Performed By: #### L [id number] ####[facility] ([facility])[address] [place] [address] COMPREHENSIVE METABOLIC PANE Robbie 03-11-2024 Albumin [Mass/Vol] 3.0 g/dL Low 3.5-5.7 [facility] Comment on above: Performed By: #### L [id number] ####[facility] ([facility])[address] [place] [address] ALP [Catalytic activity/Vol] 68 U/L Normal 34-104 [facility] Comment on above: Performed By: #### L [id number] ####[facility] ([facility])[address] [place] [address] ALT [Catalytic activity/Vol] 179 U/L High 7-52 [facility] Comment on above: Performed By: #### L [id number] ####[facility] ([facility])[address] [place] [address] Anion gap [Moles/Vol] 11 mmol/L Normal 7-20 [facility] Comment on above: Performed By: #### L [id number] ####[facility] ([facility])[address] [place] [address] AST [Catalytic activity/Vol] 74 U/L High 13-39 [facility] Comment on above: Performed By: #### L [id number] ####[facility] ([facility])[address] [place] [address] Bilirubin [Mass/Vol] 0.4 mg/dL Normal 0.3-1.0 [facility] Comment on above: Performed By: #### L [id number] ####[facility] [place] [address] Calcium [Mass/Vol] 8.2 mg/dL Low 8.6-10.3 [facility] Comment on above: Performed By: #### L [id number] ####[facility] ([facility] [place] [address] Chloride [Moles/Vol] 92 mmol/L Low 98-107 [facility] Comment on above: Performed By: #### L [id number] ####[facility] ([facility])[address] [place] [address] CO2 [Moles/Vol] 33 mmol/L High 21-31 [facility] Comment on above: Performed By: #### L [id number] ####[facility] ([facility])[address] [place] [address] Creatinine [Mass/Vol] 0.74 mg/dL Normal 0.60-1.20 [facility] Comment on above: Performed By: #### L [id number] ####[facility] ([facility])[address] [place] [address] GLOMERULAR FILTRATION RATE ML/MIN/1.73 SQ M.PREDICTED 78.7 mL/min/1.73m*2 Normal >60.0 [facility] Comment on above: Result Comment: The [facility]???s estimated glomerular filtration rate (eGFR) will no longer include consideration of race in its calculation. The National Kidney Foundation???s eGFR Task Force developed new recommendations for the estimation of the glomerular filtration rate in the [place] They recommend immediate implementation of the new equation refit without the race variable in all laboratories because the calculation does not include race. In addition to not including race in the calculation and reporting, it included diversity in its development, and has acceptable performance characteristics and potential consequences that do not disproportionately affect any one group of individuals. Performed By: #### L [id number] ####[facility] [place] [address] Glucose [Mass/Vol] 91 mg/dL Normal 70-100 [facility] Comment on above: Performed By: #### L [id number] ####[facility] ([facility] [place] [address] Potassium [Moles/Vol] 3.0 mmol/L Low 3.5-5.1 [facility] Comment on above: Performed By: #### L [id number] ####[facility] ([facility])[address] [place] [address] Protein [Mass/Vol] 6.3 g/dL Normal 6.0-8.3 [facility] Comment on above: Performed By: #### L [id number] ####[facility] ([facility])[address] [place] [address] Sodium [Moles/Vol] 133 mmol/L Low 136-145 [facility] Comment on above: Performed By: #### L [id number] ####[facility] ([facility])[address] [place] [address] Urea nitrogen [Mass/Vol] 26 mg/dL High 7-25 [facility] Comment on above: Performed By: #### L [id number] ####[facility] ([facility])[address] [place] [address] UREA NITROGEN/CREATININE (MASS RATIO) IN SER/PLAS 35.1 Normal [facility] Comment on above: Performed By: #### L [id number] ####[facility] ([facility] [place] [address] HEMOGLOBIN AND HEMATOCRIT, B LOODon 03-11-2024 Hematocrit (Bld) [Volume fraction] 28.2 % Low 36.0-48.0 [facility] Comment on above: Performed By: #### L [id number] #### [facility] ([facility] [address] [place] [address] Hemoglobin (Bld) [Mass/Vol] 8.6 g/dL Low 12.0-15.0 [facility] Comment on above: Performed By: #### L [id number] #### [facility] ([facility]) [address] [place] [address] Hematocrit (Bld) [Volume fraction] 29.4 % Low 36.0-48.0 [facility] Comment on above: Performed By: #### L [id number] ####[facility] ([facility])[address] [place] [address] Hemoglobin (Bld) [Mass/Vol] 8.6 g/dL Low 12.0-15.0 [facility] Comment on above: Performed By: #### L [id number] ####[facility] ([facility])[address] [place] [address] POCT GLUCOSE METER UNSOLICIT ED RESULTSon 03-11-2024 Glucose [Mass/Vol] 129 mg/dL High 70-105 [facility] Comment on above: Order Comment: Waive d Testing in the ED is performed under the ED CLIA certificate #[id number]. Result Comment: [email or web address] Performed By: #### L [id number] ####[facility] ([facility])[address] [place] [address] Glucose [Mass/Vol] 175 mg/dL High 70-105 [facility] Comment on above: Order Comment: Waive d Testing in the ED is performed under the ED CLIA certificate #[id number]. Result Comment: [email or web address] Performed By: #### L [id number] ####[facility] ([facility])[address] [place] [address] Glucose [Mass/Vol] 120 mg/dL High 70-105 [facility] Comment on above: Order Comment: Waive d Testing in the ED is performed under the ED CLIA certificate #[id number]. Result Comment: [email or web address] Performed By: #### L [id number] ####[facility] ([facility])[address] [place] [address] Glucose [Mass/Vol] 116 mg/dL High 70-105 [facility] Comment on above: Order Comment: Waive d Testing in the ED is performed under the ED CLIA certificate #[id number]. Result Comment: [email or web address] Performed By: #### L [id number] #### [facility] ([facility]) [address] [place] [address] 30on 03-10-2024 30 The patient is Moderately Unstable - Medium risk of patient condition declining or worsening The patient's goals for the shift include Rest; Comfort The clinical goals for the shift include VSS; Good Breathing Problem: Pain - Adult Goal: Verbalizes/displays adequate comfort level or baseline comfort level Outcome: Progressing Problem: Safety - Adult Goal: Free from fall injury Outcome: Progressing Problem: Discharge Planning Goal: Discharge to home or other facility with appropriate resources Outcome: Progressing Problem: Chronic Conditions and Co-morbidities Goal: Patient's chronic conditions and co-morbidity symptoms are monitored and maintained or improved Outcome: Progressing Problem: Respiratory - Adult Goal: Achieves optimal ventilation and oxygenation Outcome: Progressing Flowsheets (Taken 03/10/2024739) Achieves optimal ventilation and oxygenation: Assess for changes in respiratory status Problem: Cardiovascular - Adult Goal: Maintains optimal cardiac output and hemodynamic stability Outcome: Progressing Flowsheets (Taken 03/10/2024 0740) Maintains optimal cardiac output and hemodynamic stability: Monitor blood pressure and heart rate Problem: Skin/Tissue Integrity - Adult Goal: Skin integrity remains intact Outcome: Progressing Problem: Gastrointestinal - Adult Goal: Maintains or returns to baseline bowel function Outcome: Progressing Goal: Maintains adequate nutritional intake Outcome: Progressing Normal [facility] 30 The patient is Moderately Stable - Low risk of patient condition declining or worsening The patient's goals for the shift include Rest; Comfort The clinical goals for the shift include VSS; Good Breathing Problem: Pain - Adult Goal: Verbalizes/displays adequate comfort level or baseline comfort level Outcome: Progressing Flowsheets (Taken 03/09/20241999) Verbalizes/displays adequate comfort level or baseline comfort level: Encourage patient to monitor pain and request assistance Assess pain using appropriate pain scale Administer analgesics based on type and severity of pain and evaluate response Implement non-pharmacological measures as appropriate and evaluate response Problem: Safety - Adult Goal: Free from fall injury Outcome: Progressing Flowsheets (Taken 03/09/20241999) Free from fall injury: Assess patient frequently for physical needs Identify cognitive and physical deficits and behaviors that affect risk of falls [place] fall precautions as indicated by assessment Educate patient/family on patient safety, including physical limitations Instruct patient to call for assistance with activity based on assessment Problem: Discharge Planning Goal: Discharge to home or other facility with appropriate resources Outcome: Progressing Flowsheets (Taken 03/09/20241999) Discharge to home or other facility with appropriate resources: Identify barriers to discharge with patient and caregiver Arrange for needed discharge resources and transportation as appropriate Identify discharge learning needs (meds, wound care, etc) Problem: Chronic Conditions and Co-morbidities Goal: Patient's chronic conditions and co-morbidity symptoms are monitored and maintained or improved Outcome: Progressing Flowsheets (Taken 03/09/20241999) Care Plan - Patient's Chronic Conditions and Co-Morbidity Symptoms are Monitored and Maintained or Improved: Monitor and assess patient's chronic conditions and comorbid symptoms for stability, deterioration, or improvement Collaborate with multidisciplinary team to address chronic and comorbid conditions and prevent exacerbation or deterioration Update acute care plan with appropriate goals if chronic or comorbid symptoms are exacerbated and prevent overall improvement and discharge Problem: Respiratory - Adult Goal: Achieves optimal ventilation and oxygenation Outcome: Progressing Flowsheets (Taken 03/09/20241999) Achieves optimal ventilation and oxygenation: Assess for changes in respiratory status Assess for changes in mentation and behavior Position to facilitate oxygenation and minimize respiratory effort Oxygen supplementation based on oxygen saturation or arterial blood gases Encourage broncho-pulmonary hygiene including cough, deep breathe, incentive spirometry Assess and instruct to report shortness of breath or any respiratory difficulty Respiratory therapy support as indicated Problem: Cardiovascular - Adult Goal: Maintains optimal cardiac output and hemodynamic stability Outcome: Progressing Flowsheets (Taken 03/09/20241999) Maintains optimal cardiac output and hemodynamic stability: Monitor blood pressure and heart rate Monitor urine output and notify Licensed Independent Practitioner for values outside of normal range Assess for signs of decreased cardiac output Goal: Absence of cardiac dysrhythmias or at baseline Outcome: Progressing Flowsheets (Taken 03/09/20241999) Absence of cardiac dysrhythmias or at baseline: Monitor cardiac rate and rhythm Assess for signs of decreased cardiac output Problem: Skin/Tissue Integrity - Adult Goal: Skin integrity remains intact Outcome: Progressing Flowsheets (Taken 03/09/20241999) Skin integrity remains intact: Monitor for areas of redness and/or skin breakdown Problem: Gastrointestinal - Adult Goal: Maintains or returns to baseline bowel function Outcome: Progressing Flowsheets (Taken 03/09/20241999) Maintains or returns to baseline bowel function: Assess bowel function Encourage oral fluids to ensure adequate hydration Administer ordered medications as needed Encourage mobilization and activity Goal: Maintains adequate nutritional intake Outcome: Progressing Flowsheets (Taken 03/09/20241999) Maintains adequate nutritional intake: Monitor percentage of each meal consumed Identify factors contributing to decreased intake, treat as appropriate Assist with meals as needed Monitor intake and output, weight and lab values Problem: Metabolic/Fluid and Electrolytes - Adult Goal: Electrolytes maintained within normal limits Outcome: Progressing Flowsheets (Taken 03/09/20241999) Electrolytes maintained within normal limits: Monitor labs and assess patient for signs and symptoms of electrolyte imbalances Administer electrolyte replacement as ordered Monitor response to electrolyte replacements, including repeat lab results as appropriate Goal: (more content not included)... Normal [facility] CBC WITH AUTO DIFFERENTIALon 03-10-2024 Basophils (Bld) [#/Vol] 0.01 10*3/uL Normal 0.00-0.20 [facility] Comment on above: Performed By: #### L [id number] #### [facility] ([facility]) [address] [place] [address] Basophils/100 WBC (Bld) 0.1 % Normal 0.0-1.0 [facility] Comment on above: Performed By: #### L [id number] #### [facility] ([facility]) [address] [place] [address] Eosinophils (Bld) [#/Vol] 0.13 10*3/uL Normal 0.00-0.50 [facility] Comment on above: Performed By: #### L [id number] #### [facility] ([facility]) [address] [place] [address] Eosinophils/100 WBC (Bld) 1.2 % Normal 0.0-6.0 [facility] Comment on above: Performed By: #### L [id number] #### [facility] ([facility]) [address] [place] [address] Erythrocyte distribution width (RBC) [Ratio] 18.3 % High 11.5-15.0 [facility] Comment on above: Performed By: #### L [id number] #### [facility] ([facility]) [address] [place] [address] ERYTHROCYTE MEAN CORPUSCULAR HEMOGLOBIN CONCENTRATION (G/DL) BY AUTOMATED 29.6 g/dL Low 32.0-35.0 [facility] Comment on above: Performed By: #### L [id number] #### [facility] ([facility]) [address] [place] [address] Hematocrit (Bld) [Volume fraction] 27.7 % Low 36.0-48.0 [facility] Comment on above: Performed By: #### L [id number] #### [facility] ([facility]) [address] [place] [address] Hemoglobin (Bld) [Mass/Vol] 8.2 g/dL Low 12.0-15.0 [facility] Comment on above: Performed By: #### L [id number] #### [facility] ([facility] [address] [place] [address] Immature granulocytes (Bld) [#/Vol] 0.08 10*3/uL Normal 0.00-0.20 [facility] Comment on above: Performed By: #### L [id number] #### [facility] ([facility]) [address] [place] [address] Immature granulocytes/100 WBC (Bld) 0.7 % Normal 0.0-1.0 [facility] Comment on above: Performed By: #### L [id number] #### [facility] ([facility]) [address] [place] [address] Lymphocytes (Bld) [#/Vol] 1.57 10*3/uL Normal 1.20-4.00 [facility] Comment on above: Performed By: #### L [id number] #### [facility] ([facility]) [address] [place] [address] Lymphocytes/100 WBC (Bld) 14.4 % Low 20.0-45.0 [facility] Comment on above: Performed By: #### L [id number] #### [facility] ([facility]) [address] [place] [address] MCH (RBC) [Entitic mass] 22.3 pg Low 27.0-33.0 [facility] Comment on above: Performed By: #### L [id number] #### [facility] ([facility]) [address] [place] [address] MCV (RBC) [Entitic vol] 75.5 fL Low 82.0-98.0 [facility] Comment on above: Performed By: #### L [id number] #### [facility] ([facility]) [address] [place] [address] Monocytes (Bld) [#/Vol] 1.35 10*3/uL High 0.10-1.00 [facility] Comment on above: Performed By: #### L [id number] #### [facility] ([facility]) [address] [place] [address] Monocytes/100 WBC (Bld) 12.4 % High 5.0-12.0 [facility] Comment on above: Performed By: #### L [id number] #### [facility] ([facility]) [address] [place] [address] Neutrophils (Bld) [#/Vol] 7.74 10*3/uL High 1.60-7.60 [facility] Comment on above: Performed By: #### L [id number] #### [facility] ([facility]) [address] [place] [address] Neutrophils/100 WBC (Bld) 71.2 % Normal 40.0-72.0 [facility] Comment on above: Performed By: #### L [id number] #### [facility] ([facility] [address] [place] [address] NRBC (PER 100 WBCS) BY AUTOMATED COUNT 0.0 % Normal 0 [facility] Comment on above: Performed By: #### L [id number] #### [facility] ([facility]) [address] [place] [address] PLATELETS (10*3/UL) IN BLOOD AUTOMATED COUNT 356 10*3/uL Normal 150-400 [facility] Comment on above: Performed By: #### L [id number] #### [facility] ([facility]) [address] [place] [address] RBC (Bld) [#/Vol] 3.67 10*6/uL Low 3.80-5.00 [facility] Comment on above: Performed By: #### L [id number] #### [facility] ([facility]) [address] [place] [address] WBC (Bld) [#/Vol] 10.88 10*3/uL High 4.00-10.60 [facility] Comment on above: Performed By: #### L [id number] #### [facility] ([facility]) [address] [place] [address] COMPREHENSIVE METABOLIC PANE Robbie 03-10-2024 Albumin [Mass/Vol] 3.1 g/dL Low 3.5-5.7 [facility] Comment on above: Performed By: #### L [id number] #### [facility] ([facility]) [address] [place] [address] ALP [Catalytic activity/Vol] 80 U/L Normal 34-104 [facility] Comment on above: Performed By: #### L [id number] #### [facility] ([facility]) [address] [place] [address] ALT [Catalytic activity/Vol] 208 U/L High 7-52 [facility] Comment on above: Performed By: #### L [id number] #### [facility] ([facility]) [address] [place] [address] Anion gap [Moles/Vol] 9 mmol/L Normal 7-20 [facility] Comment on above: Performed By: #### L [id number] #### [facility] ([facility]) [address] [place] [address] AST [Catalytic activity/Vol] 88 U/L High 13-39 [facility] Comment on above: Performed By: #### L [id number] #### [facility] ([facility]) [address] [place] [address] Bilirubin [Mass/Vol] 0.3 mg/dL Normal 0.3-1.0 [facility] Comment on above: Performed By: #### L [id number] #### [facility] [address] [place] [address] Calcium [Mass/Vol] 8.6 mg/dL Normal 8.6-10.3 [facility] Comment on above: Performed By: #### L [id number] #### [facility] ([facility] [address] [place] [address] Chloride [Moles/Vol] 94 mmol/L Low 98-107 [facility] Comment on above: Performed By: #### L [id number] #### [facility] ([facility]) [address] [place] [address] CO2 [Moles/Vol] 35 mmol/L High 21-31 [facility] Comment on above: Performed By: #### L [id number] #### [facility] ([facility]) [address] [place] [address] Creatinine [Mass/Vol] 0.93 mg/dL Normal 0.60-1.20 [facility] Comment on above: Performed By: #### L [id number] #### [facility] ([facility]) [address] [place] [address] GLOMERULAR FILTRATION RATE ML/MIN/1.73 SQ M.PREDICTED 59.9 mL/min/1.73m*2 Low >60.0 [facility] Comment on above: Result Comment: The [facility]???s estimated glomerular filtration rate (eGFR) will no longer include consideration of race in its calculation. The [employer]???s eGFR Task Force developed new recommendations for the estimation of the glomerular filtration rate in the [place] They recommend immediate implementation of the new equation refit without the race variable in all laboratories because the calculation does not include race. In addition to not including race in the calculation and reporting, it included diversity in its development, and has acceptable performance characteristics and potential consequences that do not disproportionately affect any one group of individuals. Performed By: #### L [id number] #### [facility] ([facility]) [address] [place] [address] Glucose [Mass/Vol] 92 mg/dL Normal 70-100 [facility] Comment on above: Performed By: #### L [id number] #### [facility] ([facility]) [address] [place] [address] Potassium [Moles/Vol] 3.9 mmol/L Normal 3.5-5.1 [facility] Comment on above: Performed By: #### L [id number] #### [facility] ([facility]) [address] [place] [address] Protein [Mass/Vol] 6.6 g/dL Normal 6.0-8.3 [facility] Comment on above: Performed By: #### L [id number] #### [facility] ([facility]) [address] [place] [address] Sodium [Moles/Vol] 134 mmol/L Low 136-145 [facility] Comment on above: Performed By: #### L [id number] #### [facility] ([facility]) [address] [place] [address] Urea nitrogen [Mass/Vol] 34 mg/dL High 7-25 [facility] Comment on above: Performed By: #### L [id number] #### [facility] ([facility]) [address] [place] [address] UREA NITROGEN/CREATININE (MASS RATIO) IN SER/PLAS 36.6 Normal [facility] Comment on above: Performed By: #### L [id number] #### [facility] ([facility]) [address] [place] [address] CONSULTon 03-10-2024 CONSULT Adult Nutrition Assessment: Name: Karen Gifford Date: 1935 Date of Visit: 03/10/24 Admission Dx: Pericardial effusion [I31.39] Reason for assessment: MD referral for HF diet education Information obtained from: patient and medical record Past Medical History: Diagnosis Date A-fib ([facility]) CVA (cerebral vascular accident) ([facility]) GERD (gastroesophageal reflux disease) Hyperlipidemia Hypertension LANEY (obstructive sleep apnea) Osteoarthritis Current Medications: [Held by provider] atorvastatin, 10 mg, oral, Nightly [START ON 03/11/2024] bumetanide, 1 mg, intravenous, BID colchicine, 0.6 mg, oral, BID dilTIAZem CD, 240 mg, oral, Daily [Held by provider] hydrALAZINE, 25 mg, oral, TID insulin lispro, 0-5 Units, subcutaneous, q6h SEGUNDO latanoprost, 1 drop, Both Eyes, Nightly liothyronine, 10 mcg, oral, Daily metoprolol tartrate, 50 mg, oral, TID pantoprazole, 40 mg, oral, Daily rivaroxaban, 20 mg, oral, Daily with evening meal timolol, 1 drop, Both Eyes, BID Oxygen Therapy, Labs: 0 Lab Value Date/Time POCGLU 114 (H) 03/10/2024 1117 BUN 34 (H) 03/10/2024 0741 CREATININE 0.93 03/10/2024 0741 NA 134 (L) 03/10/2024 0741 K 3.9 03/10/2024 0741 PHOS 4.5 03/08/2024 2106 MG 1.8 (L) 03/08/2024 2106 HGBA1C 5.9 03/09/2024 0421 HGB 8.2 (L) 03/10/2024 0741 WBC 10.88 (H) 03/10/2024 0741 Other Pertinent Labs: POC glucose 110-188 I/O: Intake/Output Summary (Last 24 hours) at 03/10/2024 1331 Last data filed at 03/10/2024 1125 Gross per 24 hour Intake 480 ml Output 2450 ml Net -1970 ml Allergies: Allergies Allergen Reactions Isosorbide Other Dry eyes Lisinopril Cough Morphine Other vomit Procardia [Nifedipine] Vasotec [Enalapril Maleate] Nutrition Problems: Abdominal Assessment: Last BM 03/10 Appetite: poor Nutrition deficits prior to admission: Calories and Protein Geriatric feeding skills: Patient does some cooking, states she gets take out Other factors: admitted with SOB, large pericardial effusion Nutrition Data/Clinical Indicators of Nutrition Status: Height: 170.2 cm (5' 7 ) (per pt) Weight: 66.6 kg (146 lb 12.8 oz) (please see PCT weight) BMI (Calculated): 22.99 Wt change: Patient reports her UBW is 160# and she is low 147#. Weight loss has occurred over the past few months due to decreased appetite. -7.8kg/-10.5%BW over the past year per records. Wt Readings from Last 10 Encounters: 03/10/24 66.6 kg (146 lb 12.8 oz) 06/03/23 70.8 kg (156 lb) 05/06/23 70.3 kg (155 lb) 03/09/23 74.4 kg (164 lb) 12/29/22 79.9 kg (176 lb 3.2 oz) 11/18/22 78.8 kg (173 lb 12.8 oz) 05/14/22 70.1 kg (154 lb 8.7 oz) 04/13/22 70.3 kg (155 lb) 03/09/22 70.3 kg (155 lb) IBW: 61.4kg Nutrition Assessment: Nutrition history: The patient was seen today for HF diet education. She reports that her appetite has been poor the past few months and she has been loving weight. She does her own cooking or orders take out. Drinks boost once daily but has increased it over the past week since she has not been eating much. Tries to eat three meals daily, Does not snack much. Eats cereal, leftovers, 1/2 sandwich. Non specific dinner. Does not add salt to foods. Dietary Orders (From admission, onward) Start Ordered 03/10/24 1147 Dietary nutrition supplements Lunch; Boost Glucose Control; Chocolate; 8 oz; Oral Until discontinued Question Answer Comment Deliver with Lunch Select supplement: Boost Glucose Control Flavor: Chocolate Strength: 8 oz Route Oral 03/10/24 1147 03/09/24 0742 Special Kitchen Request Once Comments: Oatmeal with brown sugar, a piece of toast with jelly, and a scrambled egg please. Iced tea if you have it too, thanks! 03/09/2474103/08/242242 Regular Diet Heart Healthy/HTN, CABG,Stroke, (2gNA, low fat, low cholesterol); Diabetic Female (carb 45g/meal) Diet effective now Comments: Fluid restriction 1200 ml per 24 hours Question Answer Comment Room Service? Yes Fat restriction: Heart Healthy/HTN, CABG,Stroke, (2gNA, low fat, low cholesterol) Carbohydrate restriction: Diabetic Female (carb 45g/meal) 03/08/24224103/08/241851 Special Kitchen Request Once Comments: Can she please have 2 pieces of toast with jelly, a scrambled egg, half a peanut butter and jelly, and a sherbert? Thanks! 03/08/241851 Percent Meals Eaten (%): 100 (03/10/24929 : Kathleen Hancock RN) Nutrition Risk: High Nutrition Needs: Needs based on: actual body weight 66.6kg Calorie needs: 4270-3506 kcals/day based on Equation: 25-30 kcal/kg Protein needs: 67-80 g/day based on 1-1.2 g/kg Fluid needs: 1998 ml/day based on 30 ml/kg Nutrition Diagnosis: inadequate oral food/beverage intake related to decreased appetite as evidenced by wt loss hx and pt reports Malnutrition Assessment: Patient at risk for malnutrition according to hospital criteria, but does not meet the clinical characteristics per the (more content not included)... Normal [facility] CONSULT 0949 Inpatient consult to for acute heart failure. No PT or OT orders currently in place. No IV antibiotics, wound care, or oxygen needs discovered at this time. Patient has a follow up appointment on March 16 for cardiology. Barriers: -need to meet with patient to confirm with them if they have any discharge needs such as transportation, insurance. Normal [facility] CT ABDOMEN PELVIS W IV CONTR Jennifer 03-10-2024 CT ABDOMEN PELVIS W IV CONTRAST EXAM: CT ABDOMEN PELVIS W IV CONTRAST INDICATION: Metastatic disease. Elevated liver enzymes. COMPARISON: None TECHNIQUE: Standard contrast enhanced CT of the abdomen and pelvis was performed following intravenous administration of 100 mL Omnipaque 350. Coronal and sagittal reformats were obtained. FINDINGS: Large pericardial effusion partially included in the [id number]-[id number]. Large right-sided pleural effusion. Moderate left-sided pleural effusion. There is mild heterogeneity of the liver. No focal lesion is identified. The spleen, pancreas and adrenal glands are normal. Mildly asymmetric appearance of the kidneys which the right is larger than the left. No focal suspicious lesions are identified. Scattered bilateral cortical hypodensities most likely represent renal cortical cysts. No hydroureteronephrosis. Peripherally positioned gas within the cecum. No definite pneumatosis. No portal venous gas. Otherwise, Small bowel and colon are without evidence of obstruction or significant inflammatory change. Moderate fecal burden throughout the colon most notably within the cecum, ascending colon, and proximal transverse colon. No free fluid or free air. No suspicious adenopathy. Uterus is not visualized. Simple appearing cystic structure deep within the pelvis measures approximately 5.9 cm. No acute osseous abnormalities. Ill-defined sclerotic appearance of the S1 vertebral body, nonspecific possibly degenerative in etiology. Endplate irregularities at L3-L4 and L4-L5. IMPRESSION: 1. Mildly heterogenous appearance of the liver without focal mass identified. Correlate with liver function tests. 2. Large pericardial effusion and bilateral pleural effusions. 3. 5.9 cm simple cystic structure deep within the pelvis possibly represents a residual adnexal cyst given the reported history. Correlate with outside priors to assess for stability. 4. Sclerotic appearance of multiple vertebral bodies is favored to be degenerative in etiology. Electronically signed: Avtar Gil MD. Not Vldtd Invalid Interpretation Code [facility] HEMOGLOBIN AND HEMATOCRIT, B LOODon 03-10-2024 Hematocrit (Bld) [Volume fraction] 27.8 % Low 36.0-48.0 [facility] Comment on above: Performed By: #### L [id number] #### [facility] ([facility]) [address] [place] [address] Hemoglobin (Bld) [Mass/Vol] 8.4 g/dL Low 12.0-15.0 [facility] Comment on above: Performed By: #### L [id number] #### [facility] ([facility]) [address] [place] [address] POCT GLUCOSE METER UNSOLICIT ED RESULTSon 03-10-2024 Glucose [Mass/Vol] 155 mg/dL High 70-105 [facility] Comment on above: Order Comment: Waive d Testing in the ED is performed under the ED CLIA certificate #[id number]. Result Comment: [email or web address] Performed By: #### L [id number] ####[facility] ([facility])[address] [place] [address] Glucose [Mass/Vol] 114 mg/dL High 70-105 [facility] Comment on above: Order Comment: Waive d Testing in the ED is performed under the ED CLIA certificate #[id number]. Result Comment: [email or web address] Performed By: #### L [id number] ####[facility] ([facility])[address] [place] [address] Glucose [Mass/Vol] 110 mg/dL High 70-105 [facility] Comment on above: Order Comment: Waive d Testing in the ED is performed under the ED CLIA certificate #[id number]. Result Comment: [email or web address] Performed By: #### L [id number] #### [facility] ([facility]) [address] [place] [address] Glucose [Mass/Vol] 113 mg/dL High 70-105 [facility] Comment on above: Order Comment: Waive d Testing in the ED is performed under the ED CLIA certificate #[id number]. Result Comment: [email or web address] Performed By: #### L [id number] #### [facility] ([facility]) [address] [place] [address] 30on 03-09-2024 30 Daily Case Managemen t Update Multidisciplinary rounds have been completed. Barriers to Discharge: Pending clinical course and improvement in clinical condition. Patient underwent transthoracic echocardiogram today. Plan for gentle diuresing and repeat limited echo on 03/12/2024. Discharge plan is home when medically ready. Diet: Dietary Orders (From admission, onward) Start Ordered 03/09/24 0742 Special Kitchen Request Once Comments: Oatmeal with brown sugar, a piece of toast with jelly, and a scrambled egg please. Iced tea if you have it too, thanks! 03/09/24 0742 03/08/24 2243 Regular Diet Heart Healthy/HTN, CABG,Stroke, (2gNA, low fat, low cholesterol); Diabetic Female (carb 45g/meal) Diet effective now Comments: Fluid restriction 1200 ml per 24 hours Question Answer Comment Room Service? Yes Fat restriction: Heart Healthy/HTN, CABG,Stroke, (2gNA, low fat, low cholesterol) Carbohydrate restriction: Diabetic Female (carb 45g/meal) 03/08/24 2242 03/08/24 1852 Special Kitchen Request Once Comments: Can she please have 2 pieces of toast with jelly, a scrambled egg, half a peanut butter and jelly, and a sherbert? Thanks! 03/08/24 1852 Physician Expected Discharge Date: Discharge Delays: PT Six Click Score: 23 OT Six Click Score: PT Recommendations: OT Recommendations: New Consults: Consult Orders (From admission, onward) Start Ordered 03/08/24 1933 Inpatient consult to Cardiology Once Specialty: Cardiology Provider: (Not yet assigned) Question Answer Comment Reason for Consult? pericardial effusion Consult[facility] CARDIOLOGY TEAM Level of Consultation Consultation and Management 03/08/24 193 Ancillary Consults (From admission, onward) Start Ordered 03/09/24 1027 Inpatient consult to Social Work Once Provider: (Not yet assigned) Question Answer Comment Select all services needed for the patient Other Other: acute heart failure 03/09/24 1026 03/09/24 1027 Consult to Nutrition Services Once Provider: (Not yet assigned) Question: Reason for Consult? Answer: heart failure 03/09/24 1026 Normal [facility] 30 The patient is Moderately Unstable - Medium risk of patient condition declining or worsening The patient's goals for the shift include The clinical goals for the shift include monitor vitals, safety Problem: Pain - Adult Goal: Verbalizes/displays adequate comfort level or baseline comfort level Outcome: Progressing Problem: Safety - Adult Goal: Free from fall injury Outcome: Progressing Flowsheets (Taken 03/09/2024 0719) Free from fall injury: Assess patient frequently for physical needs Problem: Discharge Planning Goal: Discharge to home or other facility with appropriate resources Outcome: Progressing Problem: Chronic Conditions and Co-morbidities Goal: Patient's chronic conditions and co-morbidity symptoms are monitored and maintained or improved Outcome: Progressing Normal [facility] B-TYPE NATRIURETIC PEPTIDEon 03-09-2024 Natriuretic peptide B (Bld) [Mass/Vol] 889 pg/mL High 0-100 [facility] Comment on above: Performed By: #### L [id number] ####[facility] ([facility])[address] [place] [address] C-REACTIVE PROTEINon 024 C REACTIVE PROTEIN (MG/L) IN SER/PLAS 126.0 mg/L High 0.0-7.0 [facility] Comment on above: Performed By: #### L [id number] ####[facility] ([facility])[address] [place] [address] COMPREHENSIVE METABOLIC PANE Robbie 03-09-2024 Albumin [Mass/Vol] 3.2 g/dL Low 3.5-5.7 [facility] Comment on above: Performed By: #### L [id number] #### [facility] ([facility]) [address] [place] [address] ALP [Catalytic activity/Vol] 81 U/L Normal 34-104 [facility] Comment on above: Performed By: #### L [id number] #### [facility] ([facility]) [address] [place] [address] ALT [Catalytic activity/Vol] 237 U/L High 7-52 [facility] Comment on above: Performed By: #### L [id number] #### [facility] ([facility]) [address] [place] [address] Anion gap [Moles/Vol] 14 mmol/L Normal 7-20 [facility] Comment on above: Performed By: #### L [id number] #### [facility] ([facility]) [address] [place] [address] AST [Catalytic activity/Vol] 130 U/L High 13-39 [facility] Comment on above: Performed By: #### L [id number] #### [facility] ([facility]) [address] [place] [address] Bilirubin [Mass/Vol] 0.3 mg/dL Normal 0.3-1.0 [facility] Comment on above: Performed By: #### L [id number] #### [facility] ([facility]ER) [address] [place] [address] Calcium [Mass/Vol] 8.6 mg/dL Normal 8.6-10.3 [facility] Comment on above: Performed By: #### L [id number] #### [facility] [address] [place] [address] Chloride [Moles/Vol] 93 mmol/L Low 98-107 [facility] Comment on above: Performed By: #### L [id number] #### [facility] ([facility]) [address] [place] [address] CO2 [Moles/Vol] 28 mmol/L Normal 21-31 [facility] Comment on above: Performed By: #### L [id number] #### [facility] ([facility]) [address] [place] [address] Creatinine [Mass/Vol] 1.03 mg/dL Normal 0.60-1.20 [facility] Comment on above: Performed By: #### L [id number] #### [facility] ([facility]) [address] [place] [address] GLOMERULAR FILTRATION RATE ML/MIN/1.73 SQ M.PREDICTED 53.0 mL/min/1.73m*2 Low >60.0 [facility] Comment on above: Result Comment: The [facility]???s estimated glomerular filtration rate (eGFR) will no longer include consideration of race in its calculation. The National Kid[employer] Foundation???s eGFR Task Force developed new recommendations for the estimation of the glomerular filtration rate in the [place] They recommend immediate implementation of the new equation refit without the race variable in all laboratories because the calculation does not include race. In addition to not including race in the calculation and reporting, it included diversity in its development, and has acceptable performance characteristics and potential consequences that do not disproportionately affect any one group of individuals. Performed By: #### L [id number] #### [facility] ([facility] [address] [place] [address] Glucose [Mass/Vol] 123 mg/dL Normal [facility] Comment on above: Performed By: #### L [id number] #### [facility] ([facility]) [address] [place] [address] Performed By: #### L [id number] #### [facility] ([facility]) [address] [place] [address] Potassium [Moles/Vol] 3.9 mmol/L Normal 3.5-5.1 [facility] Comment on above: Performed By: #### L [id number] #### [facility] ([facility]) [address] [place] [address] Protein [Mass/Vol] 6.7 g/dL Normal 6.0-8.3 [facility] Comment on above: Performed By: #### L [id number] #### [facility] ([facility]) [address] [place] [address] Sodium [Moles/Vol] 131 mmol/L Low 136-145 [facility] Comment on above: Performed By: #### L [id number] #### [facility] ([facility]) [address] [place] [address] Urea nitrogen [Mass/Vol] 30 mg/dL High 7-25 [facility] Comment on above: Performed By: #### L [id number] #### [facility] ([facility]) [address] [place] [address] UREA NITROGEN/CREATININE (MASS RATIO) IN SER/PLAS 29.1 Normal [facility] Comment on above: Performed By: #### L [id number] #### [facility] ([facility]) [address] [place] [address] CONSULTon 03-09-2024 CONSULT -- Attestation signed by Ronaldo Anne MD at 03/09/2024 10:11 PM I personally saw and examined the patient on the same date of service as resident/fellow Claudio Dominguez. I discussed the findings and therapeutic plan with the Claudio Dominguez. I agree with the documentation, except for any edits/updates below. Dyspnea and acute hypoxia. Reviewed CT chest and Echo images. Noted b/l pleural effusions and pericardial effusion without significant tamponade physiology. Recommend diuresis. Cardio to evaluate for pericardiocentesis, we will add fluid labs if drained. May consider thora if no improvement or no plans for pericardiocentesis by cardiology for diagnostic/therapeutic purpose. Acute on chronic HFpEF - severe TR noted on echo images, pHTN, LV appears preserved, pending reading. Pulmonology Consult Patient : Karen Gifford : 1935 Location: [id number] Attending: Jami Su MD Admit Date: 03/08/2024 Hospital Day: 1 Reason for Consult: Dyspnea, pleural effusion HPI: Karen Gifford is a 88 y.o. female with a past medical history of chronic afib, sick sinus syndrome s/p PPM (biotronik), HTN, HLD, LANEY not on CPAP, HFpEF presented to an OSH for shortness of breath. Pt had undergone a CXR and CT chest which revealed pericardial and pleural effusions. Patient was transferred to [facility] for evaluation by cardiology and possible pericardiocentesis. We were consulted for bilateral pleural effusion. Patient was seen and examined at bedside. She was breathing comfortably on room air. Patient denied fever or chills, cough or sore throat, nausea or vomiting, chest pain or breathing difficulty, abdominal pain, or any urinary symptoms. Patient was started on bumex 1 mg IV daily by primary team. Cardiology was consulted for pericardial effusion and echocardiography is pending PFTs at OSH on 01/19/2023 which showed restrictive pattern with FEV1 FEC ratio was normal at 85% of FVC was mildly reduced at 70% and FEV1 C was normal at 80% no significant change with bronchodilators and diffusion capacity was 45% Assessment: Pericardial effusion with bilateral pleural effusion Heart failure with preserved ejection fraction Sick sinus syndrome s/p PPM placement Chronic afib on xarelto LANEY not on CPAP Hypertension Hx of COPD Plan: - Patient breathing comfortably on room air. - Will await cardiology evaluation for pericardial effusion - Echocardiography is pending - If cardiology planning pericardiocentesis, will recommend pericardial fluid analysis as pt's pleural effusion likely from the same source. Will order cultures, cell count, cytology, glucose, LDH, - Rest of care per primary team - Will continue to follow pt Past History/Allergies?Soci al History: Past Medical History: Diagnosis Date A-fib ([facility]) CVA (cerebral vascular accident) ([facility]) GERD (gastroesophageal reflux disease) Hyperlipidemia Hypertension LANEY (obstructive sleep apnea) Osteoarthritis Allergies Allergen Reactions Isosorbide Other Dry eyes Lisinopril Cough Morphine Other vomit Procardia [Nifedipine] Vasotec [Enalapril Maleate] Social History Socioeconomic History Marital status: Spouse name: Not on file Number of children: Not on file Years of education: Not on file Highest education level: Not on file Occupational History Not on file Tobacco Use Smoking status: Never Smokeless tobacco: Not on file Substance and Sexual Activity Alcohol use: Not on file Drug use: Not on file Sexual activity: Not on file Other Topics Concern Not on file Social History Narrative Not on file Social Determinants of Health Financial Resource Strain: Low Risk (03/08/2024) Overall Financial Resource Strain (CARDIA) Difficulty of Paying Living Expenses: Not hard at all Food Insecurity: No Food Insecurity (03/08/2024) Hunger Vital Sign Worried About Running Out of Food in the Last Year: Never true Ran Out of Food in the Last Year: Not on file Transportation Needs: No Transportation Needs (03/08/2024) Transportation Lack of Transportation (Medical): No Lack of Transportation (Non-Medical): Not on file Physical Activity: Not on file Stress: Not on file Social Connections: Not on file Intimate Partner Violence: Unknown (03/08/2024) Humiliation, Afraid, Rape, and Kick questionnaire Fear of Current or Ex-Partner: No Emotionally Abused: Not on file Physically Abused: Not on file Sexually Abused: Not on file Housing Stability: Low Risk (03/08/2024) Housing Stability Vital Sign Unable to Pay for Housing in the Last Year: Not on file Number of Places Lived in the Last Year: Not on file Unstable Housing in the Last Year: No Family History: No family history on file. Outpatien (more content not included)... Normal [facility] CONSULT -- Attestation signed by Tamiko Brown MD at 03/09/2024 3:49 PM (Updated) I personally saw and examined the patient on the same date of service as resident/fellow Dr Mejia. I discussed the findings and therapeutic plan with the resident/fellow Dr Mejia. I agree with the documentation, except for any edits/updates below. Teaching Physician's Revisions: None Patient had prior history of A-fib, tachybrady syndrome, permanent pacemaker, heart failure with preserved ejection fraction. She presented to [facility] with shortness of breath started over the last couple weeks associated with cough and some runny nose but no sputum or fever or chills or muscle aches. Treated initially as outpatient by antibiotics without improvement. She denies any palpitation or dizziness or syncope. She denies any chest pain. Chest CT showed large pericardial effusion therefore she was transferred here. Patient also has recent findings of large ovarian cyst per her report and she is going to see a assembler billiard table soon. Troponin is normal. Chest x-ray shows vascular congestion and bibasilar infiltrates and pleural effusion. EKG showed atrial fibrillation with mildly rapid ventricular rate and right bundle branch block. We ordered an echocardiographic study which showed normal left ventricle systolic function, moderate anterior and large posterior pericardial effusion with pericardial thickening and no clear evidence of tamponade in addition to severe tricuspid regurgitation and moderate pulmonary hypertension. On exam she had fine crackles on the left base she is in A-fib with RVR Probably she has viral pericarditis, this is supported by elevated CRP 12 in [facility] symptoms of cough and shortness of breath associated with a runny nose. Keep in mind new findings of ovarian cyst and possible cancer. The patient also has pulmonary hypertension and severe tricuspid regurgitation which could be contributing particularly that she has pleural effusions too. Also has evidence of acute on chronic diastolic heart failure with BNP as high as 6000 in [facility]. Therefore we will diurese gently and will start her on colchicine for acute pericarditis. I avoided Motrin due to being on Xarelto and having anemia. The patient does not have any chest pain. Increase beta-cole dose for better control of ventricular rate in addition to Cardizem. Will repeat limited echo on Tuesday. Check BNP, ESR, CRP, TSH, and albumin level. Tamiko Brown MD, [facility] Cardiology Consult Note REASON FOR CONSULT Reason for Consult: A-Fib, pericardial effusion SUBJECTIVE HPI: Karen Gifford is a 88 y.o. female with a medical history significant for A-Fib on Xarelto, ovarian cyst, Bradycardia s/p PPM, HFpEF, TIA, HTN, HLD, LANEY, TIA who presented with SOB from [place]. She initially went to her PCP on Tuesday for Sob that started on Tuesday. She was transferred to [facility] when CT Chest showed a Large pericardial effusion. Cardiology was consulted for pericardial effusion. Patient endorses SOB and change in her voice. Patient denies any chest pain, palpitations, light-headedness, or dizziness. There is pulsus paradoxus or electrical alterants appreciated. EKG was reviewed with the team, and was unremarkable. CXR here showed bilateral costodiaphragmatic blunting. Echo was reviewed that showed preserved EF, moderate anterior and large posterior pericardial effusion. Physical exam significant for wheezing. Cardiology ROS: Review of Systems Constitutional: Negative. HENT: Positive for voice change. Eyes: Negative. Respiratory: Positive for shortness of breath. Cardiovascular: Negative. Gastrointestinal: Negative. Genitourinary: Negative. Musculoskeletal: Negative. Neurological: Negative. Psychiatric/Behavioral : Negative. Physical Examination: Physical Exam HENT: Head: Normocephalic and atraumatic. Cardiovascular: Rate and Rhythm: Normal rate and regular rhythm. Pulses: Normal pulses. Heart sounds: Normal heart sounds. Pulmonary: Effort: Pulmonary effort is normal. Breath sounds: Wheezing present. Abdominal: General: Bowel sounds are normal. Palpations: Abdomen is soft. Musculoskeletal: General: Normal range of motion. Skin: General: Skin is warm. Capillary Refill: Capillary refill takes less than 2 seconds. Neurological: Mental Status: She is alert and oriented to person, place, and time. Psychiatric: Mood and Affect: Mood normal. Behavior: Behavior normal. Thought Content: Thought content normal. Judgment: Judgment normal. Past Medical History She has a past medical history of A-fib (CMS/HCC), CVA (cerebral vascular accident) (CMS/HCC), GERD (gastroesophageal reflux disease), Hyperlipidemia, Hypertension, LANEY (obstruct (more content not included)... Normal [facility] HEMOGLOBIN A1Con 03-09-2024 HbA1c (Bld) [Mass fraction] 5.9 % Normal 4.0-6.0 [facility] Comment on above: Performed By: #### L [id number] #### [facility] ([facility]) [address] [place] [address] HEMOGLOBIN AND HEMATOCRIT, B LOODon 03-09-2024 Hematocrit (Bld) [Volume fraction] 26.0 % Low 36.0-48.0 [facility] Comment on above: Performed By: #### L [id number] ####[facility] ([facility]ER)[address] [place] [address] Hemoglobin (Bld) [Mass/Vol] 7.7 g/dL Low 12.0-15.0 [facility] Comment on above: Performed By: #### L [id number] ####[facility] ([facility]ER)[address] [place] [address] Hematocrit (Bld) [Volume fraction] 26.8 % Low 36.0-48.0 [facility] Comment on above: Performed By: #### L [id number] #### [facility] (BE[facility]ER) [address] [place] [address] Hemoglobin (Bld) [Mass/Vol] 8.1 g/dL Low 12.0-15.0 [facility] Comment on above: Performed By: #### L [id number] #### [facility] (BEAKER) [address] [address] HPon 03-09-2024 HP -- Attestation signed by Tamiko Brown MD at 03/09/2024 3:49 PM I personally saw and examined the patient on the same date of service as resident/fellow Dr Mejia. I discussed the findings and therapeutic plan with the resident/fellow Dr Mejia. I agree with the documentation, except for any edits/updates below. Teaching Physician's Revisions: None Patient had prior history of A-fib, tachybrady syndrome, permanent pacemaker, heart failure with preserved ejection fraction. She presented to [facility] with shortness of breath started over the last couple weeks associated with cough and some runny nose but no sputum or fever or chills or muscle aches. Treated initially as outpatient by antibiotics without improvement. She denies any palpitation or dizziness or syncope. She denies any chest pain. Chest CT showed large pericardial effusion therefore she was transferred here. Patient also has recent findings of large ovarian cyst per her report and she is going to see a assembler billiard table soon. Troponin is normal. Chest x-ray shows vascular congestion and bibasilar infiltrates and pleural effusion. EKG showed atrial fibrillation with mildly rapid ventricular rate and right bundle branch block. We ordered an echocardiographic study which showed normal left ventricle systolic function, moderate anterior and large posterior pericardial effusion with pericardial thickening and no clear evidence of tamponade in addition to severe tricuspid regurgitation and moderate pulmonary hypertension. On exam she had fine crackles on the left base she is in A-fib with RVR Probably she has viral pericarditis, this is supported by elevated CRP 12 in [facility] symptoms of cough and shortness of breath associated with a runny nose. Keep in mind new findings of ovarian cyst and possible cancer. The patient also has pulmonary hypertension and severe tricuspid regurgitation which could be contributing particularly that she has pleural effusions too. Also has evidence of acute on chronic diastolic heart failure with BNP as high as 6000 in [facility]. Therefore we will diurese gently and will start her on colchicine for acute pericarditis. I avoided Motrin due to being on Xarelto and having anemia. The patient does not have any chest pain. Increase beta-cole dose for better control of ventricular rate in addition to Cardizem. Will repeat limited echo on Tuesday. Check BNP, ESR, CRP, TSH, and albumin level. Tamiko Brown MD, [facility] Cardiology Consult Note REASON FOR CONSULT Reason for Consult: A-Fib, pericardial effusion SUBJECTIVE HPI: Karen Gifford is a 88 y.o. female with a medical history significant for A-Fib on Xarelto, ovarian cyst, Bradycardia s/p PPM, HFpEF, TIA, HTN, HLD, LANEY, TIA who presented with SOB from [place]. She initially went to her PCP on Tuesday for Sob that started on Tuesday. She was transferred to [facility] when CT Chest showed a Large pericardial effusion. Cardiology was consulted for pericardial effusion. Patient endorses SOB and change in her voice. Patient denies any chest pain, palpitations, light-headedness, or dizziness. There is pulsus paradoxus or electrical alterants appreciated. EKG was reviewed with the team, and was unremarkable. CXR here showed bilateral costodiaphragmatic blunting. Echo was reviewed that showed preserved EF, moderate anterior and large posterior pericardial effusion. Physical exam significant for wheezing. Cardiology ROS: Review of Systems Constitutional: Negative. HENT: Positive for voice change. Eyes: Negative. Respiratory: Positive for shortness of breath. Cardiovascular: Negative. Gastrointestinal: Negative. Genitourinary: Negative. Musculoskeletal: Negative. Neurological: Negative. Psychiatric/Behavioral : Negative. Physical Examination: Physical Exam HENT: Head: Normocephalic and atraumatic. Cardiovascular: Rate and Rhythm: Normal rate and regular rhythm. Pulses: Normal pulses. Heart sounds: Normal heart sounds. Pulmonary: Effort: Pulmonary effort is normal. Breath sounds: Wheezing present. Abdominal: General: Bowel sounds are normal. Palpations: Abdomen is soft. Musculoskeletal: General: Normal range of motion. Skin: General: Skin is warm. Capillary Refill: Capillary refill takes less than 2 seconds. Neurological: Mental Status: She is alert and oriented to person, place, and time. Psychiatric: Mood and Affect: Mood normal. Behavior: Behavior normal. Thought Content: Thought content normal. Judgment: Judgment normal. Past Medical History She has a past medical history of A-fib (CMS/HCC), CVA (cerebral vascular accident) (CMS/HCC), GERD (gastroesophageal reflux disease), Hyperlipidemia, Hypertension, LANEY (obstructive sleep (more content not included)... Normal [facility] IRON AND TIBCon 03-09-2024 IRON (UG/DL) IN SER/PLAS 11 ug/dL Low 50-212 [facility] Comment on above: Performed By: #### L [id number] #### [facility] ([facility]) [address] [place] [address] IRON BINDING CAPACITY (UG/DL) IN SER/PLAS 280 ug/dL Normal 250-450 [facility] Comment on above: Performed By: #### L [id number] #### [facility] ([facility]ER) [address] [place] [address] IRON BINDING CAPACITY.UNSATURATE D (UG/DL) IN SER/PLAS 269.0 ug/dL Normal 155.0-355.0 [facility] Comment on above: Performed By: #### L [id number] #### [facility] ([facility]ER) [address] [place] [address] IRON SATURATION (%) IN SER/PLAS 4 % Low 20-50 [facility] Comment on above: Performed By: #### L [id number] #### [facility] ([facility]) [address] [place] [address] POCT GLUCOSE METER UNSOLICIT ED RESULTSon 03-09-2024 Glucose [Mass/Vol] 110 mg/dL High 70-105 [facility] Comment on above: Order Comment: Waive d Testing in the ED is performed under the ED CLIA certificate #[id number]. Result Comment: shod [email or web address] Performed By: #### L [id number] ####[facility] ([facility])[address] [place] [address] Glucose [Mass/Vol] 188 mg/dL High 70-105 [facility] Comment on above: Order Comment: Waive d Testing in the ED is performed under the ED CLIA certificate #[id number]. Result Comment: shod ges4 Performed By: #### L [id number] ####[facility] ([facility])[address] [place] [address] Glucose [Mass/Vol] 147 mg/dL High 70-105 [facility] Comment on above: Order Comment: Waive d Testing in the ED is performed under the ED CLIA certificate #[id number]. Result Comment: msig g Performed By: #### L [id number] #### [facility] ([facility]) [address] [place] [address] SEDIMENTATION RATEon 024 SEDIMENTATION RATE, ERYTHROCYTE 65 mm/hr High <=20 [facility] Comment on above: Performed By: #### L [id number] #### [facility] ([facility]) [address] [place] [address] TROPONIN Ion 03-09-2024 Troponin I.cardiac [Mass/Vol] 0.01 ng/mL Normal 0.00-0.04 [facility] Comment on above: Performed By: #### L [id number] #### [facility] ([facility]) [address] [place] [address] Troponin I.cardiac [Mass/Vol] 0.01 ng/mL Normal 0.00-0.04 [facility] Comment on above: Performed By: #### L [id number] ####[facility] ([facility])[address] [place] [address] TSH3 REFLEX TO FT4on 024 THYROTROPIN (MIU/L) IN SER/PLAS BY DETECTION LIMIT <= 0.05 MIU/L 1.31 mIU/L Normal 0.34-5.60 [facility] Comment on above: Performed By: #### L [id number] ####[facility] ([facility])[address] [place] [address] VITAMIN B12on 03-09-2024 Cobalamin (Vitamin B12) [Mass/Vol] 417 pg/mL Normal 180-914 [facility] Comment on above: Result Comment: REFE RENCE RANGES: 180-914 pg/mL Normal 145-179 pg/mL Indeterminate <145 pg/mL Deficient Performed By: #### L [id number] ####[facility] ([facility])[address] [place] [address] APTTon 03-08-2024 ACTIVATED PARTIAL THROMBOPLASTIN TIME IN PPP BY COAGULATION ASSAY 49.7 Seconds High 25.0-35.0 [facility] Comment on above: Result Comment: Clin ical significance of the APTT is questionable in the presence of heparin. Performed By: #### L [id number] ####[facility] ([facility])[address] [place] [address] B-TYPE NATRIURETIC PEPTIDEon 03-08-2024 Natriuretic peptide B (Bld) [Mass/Vol] 1085 pg/mL High 0-100 [facility] Comment on above: Performed By: #### L [id number] ####[facility] ([facility])[address] [place] [address] CBC WITH AUTO DIFFERENTIALon 03-08-2024 Basophils (Bld) [#/Vol] 0.01 10*3/uL Normal 0.00-0.20 [facility] Comment on above: Performed By: #### L [id number] ####[facility] (BEAKER)[address] [place] [address] Basophils/100 WBC (Bld) 0.1 % Normal 0.0-1.0 [facility] Comment on above: Performed By: #### L [id number] ####[facility] ([facility]AKER)[address] [place] [address] Eosinophils (Bld) [#/Vol] 0.00 10*3/uL Normal 0.00-0.50 [facility] Comment on above: Performed By: #### L [id number] ####[facility] ([facility]ER)[address] [place] [address] Eosinophils/100 WBC (Bld) 0.0 % Normal 0.0-6.0 [facility] Comment on above: Performed By: #### L [id number] ####[facility] ([facility]ER)[address] [place] [address] Erythrocyte distribution width (RBC) [Ratio] 18.0 % High 11.5-15.0 [facility] Comment on above: Performed By: #### L [id number] ####[facility] ([facility]ER)[address] [place] [address] ERYTHROCYTE MEAN CORPUSCULAR HEMOGLOBIN CONCENTRATION (G/DL) BY AUTOMATED 30.7 g/dL Low 32.0-35.0 [facility] Comment on above: Performed By: #### L [id number] ####[facility] ([facility]AKER)[address] [place] [address] Hematocrit (Bld) [Volume fraction] 26.4 % Low 36.0-48.0 [facility] Comment on above: Performed By: #### L [id number] ####[facility] ([facility]ER)[address] [place] [address] Hemoglobin (Bld) [Mass/Vol] 8.1 g/dL Low 12.0-15.0 [facility] Comment on above: Performed By: #### L [id number] ####[facility] ([facility]ER)[address] [place] [address] Immature granulocytes (Bld) [#/Vol] 0.10 10*3/uL Normal 0.00-0.20 [facility] Comment on above: Performed By: #### L [id number] ####[facility] ([facility]ER)[address] [place] [address] Immature granulocytes/100 WBC (Bld) 1.0 % Normal 0.0-1.0 [facility] Comment on above: Performed By: #### L [id number] ####[facility] ([facility]ER)[address] [facility] [place] [address] Lymphocytes (Bld) [#/Vol] 0.93 10*3/uL Low 1.20-4.00 [facility] Comment on above: Performed By: #### L [id number] ####[facility] ([facility]ER)[address] [place] [address] Lymphocytes/100 WBC (Bld) 8.8 % Low 20.0-45.0 [facility] Comment on above: Performed By: #### L [id number] ####[facility] ([facility]ER)[address] [place] [address] MCH (RBC) [Entitic mass] 22.2 pg Low 27.0-33.0 [facility] Comment on above: Performed By: #### L [id number] ####[facility] ([facility]ER)[address] [place] [address] MCV (RBC) [Entitic vol] 72.3 fL Low 82.0-98.0 [facility] Comment on above: Performed By: #### L [id number] ####[facility] ([facility]ER)[address] [place] [address] Monocytes (Bld) [#/Vol] 0.55 10*3/uL Normal 0.10-1.00 [facility] Comment on above: Performed By: #### L [id number] ####[facility] ([facility]ER)[address] [place] [address] Monocytes/100 WBC (Bld) 5.2 % Normal 5.0-12.0 [facility] Comment on above: Performed By: #### L [id number] ####[facility] ([facility])[address] [place] [address] Neutrophils (Bld) [#/Vol] 8.92 10*3/uL High 1.60-7.60 [facility] Comment on above: Performed By: #### L [id number] ####[facility] ([facility])[address] [place] [address] Neutrophils/100 WBC (Bld) 84.9 % High 40.0-72.0 [facility] Comment on above: Performed By: #### L [id number] ####[facility] ([facility])[address] [address] NRBC (PER 100 WBCS) BY AUTOMATED COUNT 0.0 % Normal 0 [facility] Comment on above: Performed By: #### L [id number] ####[facility] ([facility])[address] [place] [address] PLATELETS (10*3/UL) IN BLOOD AUTOMATED COUNT 307 10*3/uL Normal 150-400 [facility] Comment on above: Performed By: #### L [id number] ####[facility] ([facility])[address] [address] RBC (Bld) [#/Vol] 3.65 10*6/uL Low 3.80-5.00 [facility] Comment on above: Performed By: #### L [id number] ####[facility] ([facility])[address] [address] WBC (Bld) [#/Vol] 10.51 10*3/uL Normal 4.00-10.60 [facility] Comment on above: Performed By: #### L [id number] ####[facility] [place] [address] COMPREHENSIVE METABOLIC PANE Robbie 03-08-2024 Albumin [Mass/Vol] 3.3 g/dL Low 3.5-5.7 [facility] Comment on above: Performed By: #### L [id number] ####[facility] ([facility]ER)[address] [place] [address] ALP [Catalytic activity/Vol] 95 U/L Normal 34-104 [facility] Comment on above: Performed By: #### L [id number] ####[facility] ([facility])[address] [place] [address] ALT [Catalytic activity/Vol] 272 U/L High 7-52 [facility] Comment on above: Performed By: #### L [id number] ####[facility] (BE[facility]ER)[address] [place] [address] Anion gap [Moles/Vol] 13 mmol/L Normal 7-20 [facility] Comment on above: Performed By: #### L [id number] ####[facility] ([facility]ER)[address] [place] [address] AST [Catalytic activity/Vol] 197 U/L High 13-39 [facility] Comment on above: Performed By: #### L [id number] ####[facility] ([facility])[address] [place] [address] Bilirubin [Mass/Vol] 0.3 mg/dL Normal 0.3-1.0 [facility] Comment on above: Performed By: #### L [id number] ####[facility] ([facility])[address] [place] [address] Calcium [Mass/Vol] 8.5 mg/dL Low 8.6-10.3 [facility] Comment on above: Performed By: #### L [id number] ####[facility] ([facility])[address] [place] [address] Chloride [Moles/Vol] 90 mmol/L Low 98-107 [facility] Comment on above: Performed By: #### L [id number] ####[facility] ([facility])[address] [place] [address] CO2 [Moles/Vol] 27 mmol/L Normal 21-31 [facility] Comment on above: Performed By: #### L [id number] ####[facility] ([facility])[address] [place] [address] Creatinine [Mass/Vol] 1.02 mg/dL Normal 0.60-1.20 [facility] Comment on above: Performed By: #### L [id number] ####[facility] ([facility])[address] [place] [address] GLOMERULAR FILTRATION RATE ML/MIN/1.73 SQ M.PREDICTED 53.6 mL/min/1.73m*2 Low >60.0 [facility] Comment on above: Result Comment: The [facility]???s estimated glomerular filtration rate (eGFR) will no longer include consideration of race in its calculation. The National Kidney Foundation???s eGFR Task Force developed new recommendations for the estimation of the glomerular filtration rate in the [place] They recommend immediate implementation of the new equation refit without the race variable in all laboratories because the calculation does not include race. In addition to not including race in the calculation and reporting, it included diversity in its development, and has acceptable performance characteristics and potential consequences that do not disproportionately affect any one group of individuals. Performed By: #### L [id number] ####[facility] ([facility])[address] [place] [address] Glucose [Mass/Vol] 201 mg/dL High 70-100 [facility] Comment on above: Performed By: #### L [id number] ####[facility] ([facility])[address] [place] [address] Potassium [Moles/Vol] 3.6 mmol/L Normal 3.5-5.1 [facility] Comment on above: Performed By: #### L [id number] ####[facility] ([facility])[address] [place] [address] Protein [Mass/Vol] 6.7 g/dL Normal 6.0-8.3 [facility] Comment on above: Performed By: #### L [id number] ####[facility] ([facility])[address] [place] [address] Sodium [Moles/Vol] 126 mmol/L Low 136-145 [facility] Comment on above: Performed By: #### L [id number] ####[facility] ([facility])[address] [place] [address] Urea nitrogen [Mass/Vol] 34 mg/dL High 7-25 [facility] Comment on above: Performed By: #### L [id number] ####[facility] ([facility])[address] [place] [address] UREA NITROGEN/CREATININE (MASS RATIO) IN SER/PLAS 33.3 Normal [facility] Comment on above: Performed By: #### L [id number] ####[facility] ([facility])[address] [place] [address] LACTIC ACID WITH 4 HOUR REFL EXon 03-08-2024 LACTATE (MMOL/L) IN SER/PLAS 1.8 mmol/L Normal 0.5-2.2 [facility] Comment on above: Performed By: #### L [id number] ####[facility] ([facility])[address] [place] [address] MAGNESIUMon 03-08-2024 Magnesium [Mass/Vol] 1.8 mg/dL Low 1.9-2.7 [facility] Comment on above: Performed By: #### L [id number] ####[facility] ([facility])[address] [place] [address] PHOSPHORUSon 03-08-2024 Magnesium [Mass/Vol] 4.5 mg/dL Normal 2.5-5.0 [facility] Comment on above: Performed By: #### L [id number] #### [facility] ([facility]) [address] [place] [address] POCT GLUCOSE METER UNSOLICIT ED RESULTSon 03-08-2024 Glucose [Mass/Vol] 210 mg/dL High 70-105 [facility] Comment on above: Order Comment: Waive d Testing in the ED is performed under the ED CLIA certificate #[id number]. Result Comment: msig g Performed By: #### L [id number] #### [facility] [address] [place] [address] PROTIME-INRon 03-08-2024 INR IN PPP BY COAGULATION ASSAY 2.32 High 0.90-1.10 [facility] Comment on above: Result Comment: [facility] FOR WARFARIN THERAPY CONDITION INR PROPHYLAXIS OF VENOUS THROMBOSIS 2-3 (HIGH-RISK SURGERY) TREATMENT OF VENOUS THROMBOSIS 2-3 TREATMENT OF PULMONARY EMBOLISM 2-3 PREVENTION OF SYSTEMIC EMBOLISM: 2-3 ACUTE MYOCARDIAL INFARCTION TISSUE HEART VALVES VALVULAR HEART DISEASE ATRIAL FIBRILLATION RECURRENT SYSTEMIC EMBOLISM MECHANICAL HEART VALVE 2.5-3.5 FROM: ORAL ANTICOAGULANTS. MECHANISM OF ACTION, CLINICAL EFFECTIVENESS, AND OPTIMAL THERAPEUTIC RANGE. CHEST 1995;108:231S-246S. Performed By: #### L [id number] #### [facility] ([facility]) [address] [place] [address] PROTHROMBIN TIME (PT) IN PPP BY COAGULATION ASSAY 25.0 Seconds High 12.3-14.8 [facility] Comment on above: Performed By: #### L [id number] #### [facility] ([facility] [address] [facility] [place] [address] TROPONIN Ion 03-08-2024 Troponin I.cardiac [Mass/Vol] 0.01 ng/mL Normal 0.00-0.04 [facility] Comment on above: Performed By: #### L [id number] ####[facility] (BEAKER)[address] [place] [place] [address] HVF 24-2 STANDARD - OUon HVF 24-2 STANDARD - OU See note Normal [facility] Perimetry studyon 12-01-2023 See note RADIOLOGY [facility] Radiology Study observation (narrative) [facility] ECG 12 leadon 06-28-2023 Atrial Rate [facility] P [place] [facility] P-R Interval [facility] Q-T Interval [facility] Q-T Interval (corrected) [facility] QRS Duration [facility] QTC Calculation (Bezet) [facility] R [place] [facility] T [place] [facility] Ventricular Rate [facility] 36on 06-15-2023 36 Spoke with patient a nd she is back to taking the diltiazem how Mayr wanted her to and she's feeling fine. BP isn't as low, but still up and down. Normal [facility] 36on 06-10-2023 36 Patient called to martha [...] in the evenings much she said. Normal [facility] Office Visiton 06-03-2023 Follow-up visit [id number] Karen Gifford 1935 F Date Provider Department Center 06/03/2023 120-TIFFANI ABBASI [facility] CARD [facility] No family history on file Level of Service:94678 OR OFFICE/OUTPATIENT ESTABLISHED MOD MDM 30-39 MIN Normal [facility] OCT OPTIC NERVE OUon 023 OCT OPTIC NERVE OU See note Normal [facility] Ophthalmic OCT panelon 05-31 See [facility] (narrative) [facility] YAG LASER-OSon 05-31-2023 YAG LASER-OS See note Normal [facility] See note [facility] Office Visiton 05-06-2023 Follow-up visit [id number] Karen Gifford 1935 F Date Provider Department Center 05/06/[address] No family history on file Level of Service:08853 OR OFFICE/OUTPATIENT ESTABLISHED MOD MDM 30-39 MIN Normal [facility] 36on 04-27-2023 36 That is fine she can stop...has she been treated for the yeast at least ? Normal [facility] 36on 03-31-2023 36 No she does not need to [facility] Telephoneon 03-28-2023 Telephone [id number] Karen Gifford 1935 Date Provider Department Center 03/28/2023 [place] No family history on file [facility] Basic Metabolic Profon 03-09 Anion gap [Moles/Vol] 9 mmol/L Normal 05-01 [facility] Comment on above: Performed By: #### B MP, BNP #### [facility] [address] [place] [address] Enrichment Director: Jay Peter MD BUN/CRE Ratio 10 Normal - [facility] Comment on above: Performed By: #### B MP, BNP #### [facility] [address] [place], [place] [id number] Enrichment Director: Jay Peter MD Calcium [Mass/Vol] 9.0 mg/dL Normal 8.6-10.4 [facility] Comment on above: Performed By: #### B MP, BNP #### [facility] [address] [place], [place] [address] Enrichment Director: Jay Peter MD Chloride [Moles/Vol] 96 mmol/L Low 98-107 [facility] Comment on above: Performed By: #### B MP, BNP #### [facility] [address] [place] [address] Enrichment Director: Jay Peter MD CO2 [Moles/Vol] 28 mmol/L Normal 20-31 [facility] Comment on above: Performed By: #### B KATIUSKA, BNP #### [facility] [address] [place] [address] Enrichment Director: Jay Peter MD Creatinine [Mass/Vol] 0.9 mg/dL Normal 0.5-0.9 [facility] Comment on above: Performed By: #### B MP, BNP #### [facility] [address] [place] [address] Enrichment Director: Jay Peter MD GFR/1.73 sq M.predicted among non-blacks MDRD (S/P/Bld) [Vol rate/Area] mL/min/{1.73_m2} Normal >60 [facility] Comment on above: Result Comment: These results [...] renal tubular secretion. Performed By: #### B KATIUSKA, BNP #### [address] [place] [address] Enrichment Director: Jay Peter MD Glucose [Mass/Vol] 162 mg/dL High 70-99 [facility] Comment on above: Performed By: #### B MP, BNP #### [facility] [address] [place] [address] Enrichment Director: Jay Peter MD Potassium [Moles/Vol] 4.3 mmol/L Normal 3.7-5.3 [facility] Comment on above: Performed By: #### B KATIUSKA, BNP #### [facility] [address] [place] [address] Enrichment Director: Jay Peter MD Sodium [Moles/Vol] 133 mmol/L Low 135-144 [facility] Comment on above: Performed By: #### B MP, BNP #### [facility] [address] [place] [address] Enrichment Director: Jay Peter MD Urea nitrogen [Mass/Vol] 9 mg/dL Normal 8-23 [facility] Comment on above: Performed By: #### B MP, BNP #### [facility] [address] [place] [address] Enrichment Director: Jay Peter MD Brain Natri. Peptideon 03-09 Natriuretic peptide B (Bld) [Mass/Vol] 1518 pg/mL High <300 [facility] Comment on above: Result Comment: An age-independent cutoff point of 300 pg/ml has a 98% negative predictive value excluding acute heart failure. Performed By: #### B MP, BNP #### [facility] [address] [place] [address] Enrichment Director: Jay Peter MD PROF CHEM 8 (BAS METB)on Anion gap [Moles/Vol] 10.1 mmol/L Normal [facility] Comment on above: Performed By: #### L IPID, T7, CMP, TSH #### [facility] [address] [address] [address] Jorge Glaser Calcium [Mass/Vol] 9.1 mg/dL Normal 8.5-10.1 [facility] Comment on above: Performed By: #### L IPID, T7, CMP, TSH #### [facility] [address] [address] [address] Jorge Glaser Chloride [Moles/Vol] 98 mmol/L Normal 98-107 [facility] Comment on above: Performed By: #### L IPID, T7, CMP, TSH #### [facility] [id number] Jorge Glaser CO2 [Moles/Vol] 32.1 mmol/L Critically high 21.0-32.0 [facility] Comment on above: Performed By: #### L IPID, T7, CMP, TSH #### [facility] [address] [address] [address] Jorge Glaser Creatinine [Mass/Vol] 0.93 mg/dL Normal 0.55-1.02 [facility] Comment on above: Performed By: #### L IPID, T7, CMP, TSH #### [facility] [address] [address] [address] Jorge Glaser EGFR-AF [place] >60 Normal >=60 [facility] Comment on above: Performed By: #### L IPID, T7, CMP, TSH #### [facility] [address] [address] [address] Jorge Glaser EGFR-NON AF [place] 57 mL/min/1.73m2 Critically low >=60 [facility] Comment on above: Performed By: #### L IPID, T7, CMP, TSH #### [facility] [address] [place] [address] Dr. Jorge Glaser Glucose [Mass/Vol] 103 mg/dL Normal 74-106 [facility] Comment on above: Performed By: #### L IPID, T7, CMP, TSH #### [facility] [address] [place] [address] Dr. Jorge Glaser Potassium [Moles/Vol] 4.2 mmol/L Normal 3.5-5.1 [facility] Comment on above: Performed By: #### L IPID, T7, CMP, TSH #### [facility] [address] [address] [address] Jorge Glaser Sodium [Moles/Vol] 136 mmol/L Normal 136-145 [facility] Comment on above: Performed By: #### L IPID, T7, CMP, TSH #### [facility] [address] [address] [address] Jorge Glaser Urea nitrogen [Mass/Vol] 16.0 mg/dL Normal 7.0-18.0 [facility] Comment on above: Performed By: #### L IPID, T7, CMP, TSH #### [facility] [address] [place] [address] Dr. Jorge Glaser Urea nitrogen/Creatinine [Mass ratio] 17.2 mg/mg Normal [facility] Comment on above: Performed By: #### L IPID, T7, CMP, TSH #### [facility] [address] [place] [address] Dr. Jorge Glaser BNPon 12-01-2022 Natriuretic peptide B (Bld) [Mass/Vol] 379.0 pg/mL Normal <=1,800.0 [facility] Comment on above: Performed By: #### L IPID, T7, CMP, TSH #### [facility] [address] [place] [address] Dr. Jorge Glaser CBC AUTO DIFFon 12-01-2022 BASO # 0.1 103/ul Normal 0.0-0.1 [facility] Comment on above: Performed By: #### C BC #### [facility] [address] [place] [address] Dr. Jorge Glaser Basophils/100 WBC (Bld) 1.3 % Normal 0.2-2.0 [facility] Comment on above: Performed By: #### C BC #### [facility] [address] [place] [address] Dr. Jorge Glaser EO # 0.2 103/ul Normal 0.0-0.7 [facility] Comment on above: Performed By: #### C BC #### [facility] [address] [place] [address] Dr. Jorge Glaser Eosinophils/100 WBC (Bld) 3.1 % Normal 0.9-7.0 [facility] Comment on above: Performed By: #### C BC #### [facility] [address] [place] [address] Dr. Jorge Glaser Erythrocyte distribution width (RBC) [Ratio] 14.4 % Normal 11.0-15.0 [facility] Comment on above: Performed By: #### C BC #### [facility] [address] [place] [address] Dr. Jorge Glaser Hematocrit (Bld) [Volume fraction] 36.1 % Normal 36.0-48.0 [facility] Comment on above: Performed By: #### C BC #### [facility] [address] [address] [address] Jorge Glaser Hemoglobin (Bld) [Mass/Vol] 11.5 g/dL Critically low 12.0-16.0 [facility] Comment on above: Performed By: #### C BC #### [facility] [address] [place] [address] Dr. Jorge Glaser IG # 0.05 10e3/ul Critically high 0.00-0.03 [facility] Comment on above: Performed By: #### C BC #### [facility] [address] [place] [address] Dr. Jorge Glaser IG % 0.6 % Critically high 0.0-0.5 [facility] Comment on above: Performed By: #### C BC #### [facility] [address] [place] [address] Dr. Jorge Glaser LYMPH # 1.7 103/ul Normal 1.2-3.8 [facility] Comment on above: Performed By: #### C BC #### [facility] [address] [place] [address] Dr. Jorge Glaser Lymphocytes/100 WBC (Bld) 21.2 % Normal 20.5-60.0 [facility] Comment on above: Performed By: #### C BC #### [facility] [address] [place] [address] Dr. Jorge Glaser MANUAL DIFF REQ NO Normal [facility] Comment on above: Performed By: #### C BC #### [facility] [address] [place] [address] Dr. Jorge Glaser MCH (RBC) [Entitic mass] 27.3 pg Normal 26.7-34.0 [facility] Comment on above: Performed By: #### C BC #### [facility] [address] [place] [address] Dr. Jorge Glaser MCHC (RBC) [Mass/Vol] 31.9 g/dL Normal 29.9-35.2 [facility] Comment on above: Performed By: #### C BC #### [facility] [address] [address] [address] Jorge Glaser MCV (RBC) [Entitic vol] 85.5 fL Normal 81.0-99.0 [facility] Comment on above: Performed By: #### C BC #### [facility] [address] [address] [address] Jorge Glaser MONO # 0.8 103/ul Normal 0.3-0.8 [facility] Comment on above: Performed By: #### C BC #### [facility] [address] [address] [address] Jorge Glaser Monocytes/100 WBC (Bld) 10.5 % Normal 1.7-12.0 [facility] Comment on above: Performed By: #### C BC #### [facility] [address] [address] [address] Jorge Glaser NEUT # 4.9 103/ul Normal 1.4-6.5 [facility] Comment on above: Performed By: #### C BC #### [facility] [address] [address] [address] Jorge Glaser Neutrophils/100 WBC (Bld) 63.3 % Normal 43.0-75.0 [facility] Comment on above: Performed By: #### C BC #### [facility] [address] [address] [address] Jorge Glaser Platelet mean volume (Bld) [Entitic vol] 8.7 fL Critically low 9.5-13.5 [facility] Comment on above: Performed By: #### C BC #### [facility] [address] [address] [address] Jorge Glaser PLT 226 103/ul Normal 150-450 [facility] Comment on above: Performed By: #### C BC #### [facility] [address] [address] [address] Jorge Glaser RBC 4.22 106/ul Normal 4.20-5.40 [facility] Comment on above: Performed By: #### C BC #### [facility] [address] [address] [address] Jorge Glaser WBC 7.8 103/ul Normal 4.0-11.0 [facility] Comment on above: Performed By: #### C BC #### [facility] [address] [place] [address] Dr. Jorge Glaser FREE THYROXINE INDEX T7on FTI 2.17 Normal 1.30-4.50 [facility] Comment on above: Performed By: #### L IPID, T7, CMP, TSH #### [facility] [address] [place] [address] Dr. Jorge Glaser T3U 31.0 % Normal 30.0-39.0 [facility] Comment on above: Performed By: #### L IPID, T7, CMP, TSH #### [facility] [address] [place] [address] Dr. Jorge Glaser T4 [Mass/Vol] 7.00 ug/dL Normal 4.80-13.90 [facility] Comment on above: Performed By: #### L IPID, T7, CMP, TSH #### [facility] [address] [place] [address] Dr. Jorge Glaser PROF 14(COMP METB)on 023 Albumin [Mass/Vol] 3.5 g/dL Normal 3.4-5.0 [facility] Comment on above: Performed By: #### L IPID, T7, CMP, TSH #### [facility] [address] [place] [address] Dr. Jorge Glaser Albumin/Globulin [Mass ratio] 0.9 {ratio} Normal [facility] Comment on above: Performed By: #### L IPID, T7, CMP, TSH #### [facility] [address] [place] [address] Dr. Jorge Glaser ALP [Catalytic activity/Vol] 56 U/L Normal 46-116 [facility] Comment on above: Performed By: #### L IPID, T7, CMP, TSH #### [facility] [address] [place] [address] Dr. Jorge Glaser ALT [Catalytic activity/Vol] 28 U/L Normal 14-59 [facility] Comment on above: Performed By: #### L IPID, T7, CMP, TSH #### [facility] [address] [address] [address] Jorge Glaser Anion gap [Moles/Vol] 10.2 mmol/L Normal [facility] Comment on above: Performed By: #### L IPID, T7, CMP, TSH #### [facility] [address] [address] [address] Jorge Glaser AST [Catalytic activity/Vol] 20 U/L Normal 15-37 [facility] Comment on above: Performed By: #### L IPID, T7, CMP, TSH #### [facility] [address] [place] [address] Dr. Jorge Glaser Bilirubin [Mass/Vol] 0.4 mg/dL Normal 0.2-1.0 [facility] Comment on above: Performed By: #### L IPID, T7, CMP, TSH #### [facility] [address] [address] [address] Jorge Glaser Calcium [Mass/Vol] 9.8 mg/dL Normal 8.5-10.1 [facility] Comment on above: Performed By: #### L IPID, T7, CMP, TSH #### [facility] [address] [place] [address] Dr. Jorge Glaser Chloride [Moles/Vol] 93 mmol/L Critically low 98-107 [facility] Comment on above: Performed By: #### L IPID, T7, CMP, TSH #### [facility] [address] [place] [address] Dr. Jorge Glaser CO2 [Moles/Vol] 34.5 mmol/L Critically high 21.0-32.0 [facility] Comment on above: Performed By: #### L IPID, T7, CMP, TSH #### [facility] [address] [place] [address] Dr. Jorge Glaser Creatinine [Mass/Vol] 1.01 mg/dL Normal 0.55-1.02 [facility] Comment on above: Performed By: #### L IPID, T7, CMP, TSH #### [facility] [address] [address] [address] Jorge Glaser EGFR-AF [place] >60 Normal >=60 [facility] Comment on above: Performed By: #### L IPID, T7, CMP, TSH #### [facility] [address] [place] [address] Dr. Jorge Glaser EGFR-NON AF [place] 52 mL/min/1.73m2 Critically low >=60 [facility] Comment on above: Performed By: #### L IPID, T7, CMP, TSH #### [facility] [address] [place] [address] Dr. Jorge Glaser Globulin (S) [Mass/Vol] 4.0 g/dL Normal [facility] Comment on above: Performed By: #### L IPID, T7, CMP, TSH #### [facility] [address] [place] [address] Dr. Jorge Glaser Glucose [Mass/Vol] 103 mg/dL Normal 74-106 [facility] Comment on above: Performed By: #### L IPID, T7, CMP, TSH #### [facility] [address] [place] [address] Dr. Jorge Glaser Potassium [Moles/Vol] 3.7 mmol/L Normal 3.5-5.1 [facility] Comment on above: Performed By: #### L IPID, T7, CMP, TSH #### [facility] [address] [place] [address] Dr. Jorge Glaser Protein [Mass/Vol] 7.5 g/dL Normal 6.4-8.2 [facility] Comment on above: Performed By: #### L IPID, T7, CMP, TSH #### [facility] [address] [place] [address] Dr. Jorge Glaser Sodium [Moles/Vol] 134 mmol/L Critically low 136-145 [facility] Comment on above: Performed By: #### L IPID, T7, CMP, TSH #### [facility] [address] [address] [address] Jorge Glaser Urea nitrogen [Mass/Vol] 17.0 mg/dL Normal 7.0-18.0 [facility] Comment on above: Performed By: #### L IPID, T7, CMP, TSH #### [facility] [address] [address] [address] Jorge Galser Urea nitrogen/Creatinine [Mass ratio] 16.8 mg/mg Normal [facility] Comment on above: Performed By: #### L IPID, T7, CMP, TSH #### [facility] [address] [address] [address] Jorge Glaser TSHon 12-01-2022 TSH 4.022 uIU/mL Critically high 0.358-3.740 [facility] Comment on above: Performed By: #### L IPID, T7, CMP, TSH #### [facility] [address] [address] [address] Jorge Glaser XR CHEST 2 Von [...] by: ABIMBOLA AMADOR Date: 2022-12-01 13:06 Normal [facility] FREE T3on 11-11-2022 FREE T3 2.51 pg/mlL Normal 2.18-3.98 [facility] Comment on above: Performed By: #### L IPID, T7, CMP, TSH #### [facility] [address] [address] [address] Jorge Glaser T4on 11-11-2022 T4 [Mass/Vol] 6.00 ug/dL Normal 4.80-13.90 [facility] Comment on above: Performed By: #### L IPID, T7, CMP, TSH #### [facility] [address] [place] [address] Dr. Jorge Glaser TSHon 11-11-2022 TSH 4.223 uIU/mL Critically high 0.358-3.740 [facility] Comment on above: Performed By: #### L IPID, T7, CMP, TSH #### [facility] [address] [place] [address] Dr. Jorge Glaser BNPon 11-04-2022 Natriuretic peptide B (Bld) [Mass/Vol] 479.0 pg/mL Normal <=1,800.0 [facility] Comment on above: Performed By: #### L IPID, T7, CMP, TSH #### [facility] [address] [place] [address] Dr. Jorge Glaser CBC AUTO DIFFon 11-04-2022 BASO # 0.1 103/ul Normal 0.0-0.1 [facility] Comment on above: Performed By: #### C BC #### [facility] [address] [place] [address] Dr. Jorge Glaser Basophils/100 WBC (Bld) 0.8 % Normal 0.2-2.0 [facility] Comment on above: Performed By: #### C BC #### [facility] [address] [place] [address] Dr. Jorge Glaser EO # 0.1 103/ul Normal 0.0-0.7 [facility] Comment on above: Performed By: #### C BC #### [facility] [address] [place] [address] Dr. Jorge Glaser Eosinophils/100 WBC (Bld) 0.8 % Critically low 0.9-7.0 [facility] Comment on above: Performed By: #### C BC #### [facility] [address] [place] [address] Dr. Jorge Glaser Erythrocyte distribution width (RBC) [Ratio] 13.9 % Normal 11.0-15.0 [facility] Comment on above: Performed By: #### C BC #### [facility] [address] [place] [address] Dr. Jorge Glaser Hematocrit (Bld) [Volume fraction] 37.7 % Normal 36.0-48.0 [facility] Comment on above: Performed By: #### C BC #### [facility] [address] [address] [address] Jorge Glaser Hemoglobin (Bld) [Mass/Vol] 12.2 g/dL Normal 12.0-16.0 [facility] Comment on above: Performed By: #### C BC #### [facility] [address] [address] [address] Jorge Glaser IG # 0.14 10e3/ul Critically high 0.00-0.03 [facility] Comment on above: Performed By: #### C BC #### [facility] [address] [place] [address] Dr. Jorge Glaser IG % 1.1 % Critically high 0.0-0.5 [facility] Comment on above: Performed By: #### C BC #### [facility] [address] [place] [address] Dr. Jorge Glaser LYMPH # 1.6 103/ul Normal 1.2-3.8 [facility] Comment on above: Performed By: #### C BC #### [facility] [address] [place] [address] Dr. Jorge Glaser Lymphocytes/100 WBC (Bld) 11.8 % Critically low 20.5-60.0 [facility] Comment on above: Performed By: #### C BC #### [facility] [address] [place] [address] Dr. Jorge Glaser MANUAL DIFF REQ NO Normal [facility] Comment on above: Performed By: #### C BC #### [facility] [address] [place] [address] Dr. Jorge Glaser MCH (RBC) [Entitic mass] 28.2 pg Normal 26.7-34.0 [facility] Comment on above: Performed By: #### C BC #### [facility] [address] [place] [address] Dr. Jorge Glaser MCHC (RBC) [Mass/Vol] 32.4 g/dL Normal 29.9-35.2 [facility] Comment on above: Performed By: #### C BC #### [facility] [address] [address] [address] Jorge Glaser MCV (RBC) [Entitic vol] 87.3 fL Normal 81.0-99.0 [facility] Comment on above: Performed By: #### C BC #### [facility] [address] [address] [address] Jorge Glaser MONO # 0.8 103/ul Normal 0.3-0.8 [facility] Comment on above: Performed By: #### C BC #### [facility] [address] [address] [address] Jorge Glaser Monocytes/100 WBC (Bld) 5.9 % Normal 1.7-12.0 [facility] Comment on above: Performed By: #### C BC #### [facility] [address] [address] [address] Jorge Glaser NEUT # 10.4 103/ul Critically high 1.4-6.5 [facility] Comment on above: Performed By: #### C BC #### [facility] [address] [address] [address] Jorge Glaser Neutrophils/100 WBC (Bld) 79.6 % Critically high 43.0-75.0 [facility] Comment on above: Performed By: #### C BC #### [facility] [address] [address] [address] Jorge Glaser Platelet mean volume (Bld) [Entitic vol] 9.0 fL Critically low 9.5-13.5 [facility] Comment on above: Performed By: #### C BC #### [facility] [address] [address] [address] Jorge Glaser PLT 216 103/ul Normal 150-450 [facility] Comment on above: Performed By: #### C BC #### [facility] [address] [address] [address] Jorge Glaser RBC 4.32 106/ul Normal 4.20-5.40 [facility] Comment on above: Performed By: #### C BC #### [facility] [address] [place], [place] [address] Dr. Jorge Glaser WBC 13.1 103/ul Critically high 4.0-11.0 [facility] Comment on above: Performed By: #### C BC #### [facility] [address] [place], [place] [address] Dr. Jorge Glaser ECHOCARDIO M/2D COMPLETEon 0 11-04-2022 ECHOCARDIO M/2D COMPLETE Patient: KAREN GIFFORD Exam Date: 11/04/2022 : 1935 Gender:F Ordering : CHILANGO SANDOVAL [facility] Admission #: [id number] Family : Order #: [id number] CLICK HERE TO VIEW EXAM ECHOCARDIOGRAM REPORT [...] Area (VTI): 2.20 cm2, 2.20 cm2 Deceleration [place]: 2.65 m/s2 Pressure Half-Time: 481.67 ms Peak [...] Lopez M.D. on 11/04/2022 at 22:09 Normal [facility] PROF CHEM 8 (BAS METB)on Anion gap [Moles/Vol] 10.6 mmol/L Normal [facility] Comment on above: Performed By: #### L IPID, T7, CMP, TSH #### [facility] [address] [address] [address] Jorge Glaser Calcium [Mass/Vol] 9.5 mg/dL Normal 8.5-10.1 [facility] Comment on above: Performed By: #### L IPID, T7, CMP, TSH #### [facility] [address] [place] [address] Dr. Jorge Glaser Chloride [Moles/Vol] 97 mmol/L Critically low 98-107 [facility] Comment on above: Performed By: #### L IPID, T7, CMP, TSH #### [facility] [address] [address] [address] Jorge Glaser CO2 [Moles/Vol] 32.3 mmol/L Critically high 21.0-32.0 [facility] Comment on above: Performed By: #### L IPID, T7, CMP, TSH #### [facility] [address] [address] [address] Jorge Glaser Creatinine [Mass/Vol] 0.79 mg/dL Normal 0.55-1.02 [facility] Comment on above: Performed By: #### L IPID, T7, CMP, TSH #### [facility] [address] [address] [address] Jorge Glaser EGFR-AF [place] >60 Normal >=60 [facility] Comment on above: Performed By: #### L IPID, T7, CMP, TSH #### [facility] [address] [address] [address] Jorge Glaser EGFR-NON AF [place] >60 Normal >=60 [facility] Comment on above: Performed By: #### L IPID, T7, CMP, TSH #### [facility] [facility] [address] [address] [address] Jorge Glaser Glucose [Mass/Vol] 161 mg/dL Critically high 74-106 [facility] Comment on above: Performed By: #### L IPID, T7, CMP, TSH #### [facility] [address] [address] [address] Jorge Glaser Potassium [Moles/Vol] 3.9 mmol/L Normal 3.5-5.1 [facility] Comment on above: Performed By: #### L IPID, T7, CMP, TSH #### [facility] [address] [address] [address] Jorge Glaser Sodium [Moles/Vol] 136 mmol/L Normal 136-145 [facility] Comment on above: Performed By: #### L IPID, T7, CMP, TSH #### [facility] [address] [address] [address] Jorge Glaser Urea nitrogen [Mass/Vol] 20.0 mg/dL Critically high 7.0-18.0 [facility] Comment on above: Performed By: #### L IPID, T7, CMP, TSH #### [facility] [address] [place] [address] Dr. Jorge Glaser Urea nitrogen/Creatinine [Mass ratio] 25.3 mg/mg Normal [facility] Comment on above: Performed By: #### L IPID, T7, CMP, TSH #### [facility] [address] [place] [address] Dr. Jorge Glaser FREE T3on 10-04-2022 FREE T3 2.15 pg/mlL Critically low 2.18-3.98 [facility] Comment on above: Performed By: #### L IPID, T7, CMP, TSH #### [facility] [address] [place] [address] Dr. Jorge Glaser POTASSIUMon 10-04-2022 Potassium [Moles/Vol] 3.5 mmol/L Normal 3.5-5.1 [facility] Comment on above: Performed By: #### L IPID, T7, CMP, TSH #### [facility] [address] [place] [address] Dr. Jorge Glaser T4on 10-04-2022 T4 [Mass/Vol] 6.50 ug/dL Normal 4.80-13.90 [facility] Comment on above: Performed By: #### T 4, TSH, FT3, K #### [facility] [address] [address] [address] Jorge Glaser TSHon 10-04-2022 TSH 4.603 uIU/mL Critically high 0.358-3.740 [facility] Comment on above: Performed By: #### L IPID, T7, CMP, TSH #### [facility] [address] [place] [address] Dr. Jorge Glaser OCC BLD IMMUNO SCREENon 08-15 OCCULT BLOOD Negative Normal NEGATIVE [facility] Comment on above: Performed By: #### O BSCRN #### [facility] [address] [place] [address] Dr. Jorge Glaser CBC AUTO DIFFon 09-01-2022 BASO # 0.1 103/ul Normal 0.0-0.1 [facility] Comment on above: Performed By: #### L IPID, T7, CMP, TSH #### [facility] [address] [place] [address] Dr. Jorge Glaser Basophils/100 WBC (Bld) 1.0 % Normal 0.2-2.0 [facility] Comment on above: Performed By: #### L IPID, T7, CMP, TSH #### [facility] [address] [place] [address] Dr. Jorge Glaser EO # 0.3 103/ul Normal 0.0-0.7 [facility] Comment on above: Performed By: #### L IPID, T7, CMP, TSH #### [facility] [address] [place] [address] Dr. Jorge Glaser Eosinophils/100 WBC (Bld) 3.8 % Normal 0.9-7.0 [facility] Comment on above: Performed By: #### L IPID, T7, CMP, TSH #### [facility] [address] [address] [address] Jorge Glaser Erythrocyte distribution width (RBC) [Ratio] 13.4 % Normal 11.0-15.0 [facility] Comment on above: Performed By: #### L IPID, T7, CMP, TSH #### [facility] [address] [place] [address] Dr. Jorge Glaser Hematocrit (Bld) [Volume fraction] 39.0 % Normal 36.0-48.0 [facility] Comment on above: Performed By: #### L IPID, T7, CMP, TSH #### [facility] [address] [place] [address] Dr. Jorge Glaser Hemoglobin (Bld) [Mass/Vol] 12.8 g/dL Normal 12.0-16.0 [facility] Comment on above: Performed By: #### L IPID, T7, CMP, TSH #### [facility] [address] [place] [address] Dr. Jorge Glaser IG # 0.10 10e3/ul Critically high 0.00-0.03 [facility] Comment on above: Performed By: #### L IPID, T7, CMP, TSH #### [facility] [address] [place] [address] Dr. Jorge Glaser IG % 1.1 % Critically high 0.0-0.5 [facility] Comment on above: Performed By: #### L IPID, T7, CMP, TSH #### [facility] [address] [place] [address] Dr. Jorge Glaser LYMPH # 2.3 103/ul Normal 1.2-3.8 [facility] Comment on above: Performed By: #### L IPID, T7, CMP, TSH #### [facility] [address] [place] [address] Dr. Jorge Glaser Lymphocytes/100 WBC (Bld) 26.9 % Normal 20.5-60.0 [facility] Comment on above: Performed By: #### L IPID, T7, CMP, TSH #### [facility] [address] [place] [address] Dr. Jorge Glaser MANUAL DIFF REQ NO Normal [facility] Comment on above: Performed By: #### L IPID, T7, CMP, TSH #### [facility] [address] [place] [address] Dr. Jorge Glaser MCH (RBC) [Entitic mass] 29.4 pg Normal 26.7-34.0 [facility] Comment on above: Performed By: #### L IPID, T7, CMP, TSH #### [facility] [address] [place] [address] Dr. Jorge Glaser MCHC (RBC) [Mass/Vol] 32.8 g/dL Normal 29.9-35.2 [facility] Comment on above: Performed By: #### L IPID, T7, CMP, TSH #### [facility] [address] [place] [address] Dr. Jorge Glaser MCV (RBC) [Entitic vol] 89.7 fL Normal 81.0-99.0 [facility] Comment on above: Performed By: #### L IPID, T7, CMP, TSH #### [facility] [address] [place] [address] Dr. Jorge Glaser MONO # 0.8 103/ul Normal 0.3-0.8 [facility] Comment on above: Performed By: #### L IPID, T7, CMP, TSH #### [facility] [address] [place] [address] Dr. Jorge Glaser Monocytes/100 WBC (Bld) 9.1 % Normal 1.7-12.0 [facility] Comment on above: Performed By: #### L IPID, T7, CMP, TSH #### [facility] [address] [place] [address] Dr. Jorge Glaser NEUT # 5.1 103/ul Normal 1.4-6.5 [facility] Comment on above: Performed By: #### L IPID, T7, CMP, TSH #### [facility] [address] [address] [address] Jorge Glaser Neutrophils/100 WBC (Bld) 58.1 % Normal 43.0-75.0 [facility] Comment on above: Performed By: #### L IPID, T7, CMP, TSH #### [facility] [address] [place] [address] Dr. Jorge Glaser Platelet mean volume (Bld) [Entitic vol] 8.8 fL Critically low 9.5-13.5 [facility] Comment on above: Performed By: #### L IPID, T7, CMP, TSH #### [facility] [address] [place] [address] Dr. Jorge Glaser PLT 158 103/ul Normal 150-450 [facility] Comment on above: Performed By: #### L IPID, T7, CMP, TSH #### [facility] [address] [place] [address] Dr. Jorge Glaser RBC 4.35 106/ul Normal 4.20-5.40 [facility] Comment on above: Performed By: #### L IPID, T7, CMP, TSH #### [facility] [address] [place] [address] Dr. Jorge Glaser WBC 8.7 103/ul Normal 4.0-11.0 [facility] Comment on above: Performed By: #### L IPID, T7, CMP, TSH #### [facility] [address] [place] [address] Dr. Jorge Glaser FREE THYROXINE INDEX T7on FTI 2.15 Normal 1.30-4.50 [facility] Comment on above: Performed By: #### L IPID, T7, CMP, TSH #### [facility] [address] [place] [address] Dr. Jorge Glaser T3U 33.0 % Normal 30.0-39.0 [facility] Comment on above: Performed By: #### L IPID, T7, CMP, TSH #### [facility] [address] [place] [address] Dr. Jorge Glaser T4 [Mass/Vol] 6.50 ug/dL Normal 4.80-13.90 [facility] Comment on above: Performed By: #### L IPID, T7, CMP, TSH #### [facility] [address] [address] [address] Jorge Glaser GLYCOHEMOGLOBIN A1Con 2022 ADA RECOMMENDATION SEE BELOW Normal [facility] Comment on above: Result Comment: ADA RECOMMENDED LIMIT 4.0 - 6.0 ADA THERAPEUTIC TARGET < 7.0 ACTION SUGGESTED > 7.0 Performed By: #### A 1C #### [facility] [address] [address] [address] Jorge Glaser Glucose [Mass/Vol] 137 mg/dL Normal [facility] Comment on above: Performed By: #### A 1C #### [facility] [address] [place] [address] Dr. Jorge Glaser HbA1c (Bld) [Mass fraction] 6.4 % Critically high 4.5-6.2 [facility] Comment on above: Performed By: #### A 1C #### [facility] [address] [place] [address] Dr. Jorge Glaser IRONon 09-01-2022 Iron [Mass/Vol] 58.0 ug/dL Normal 50.0-170.0 [facility] Comment on above: Performed By: #### I DAVID #### [facility] [address] [place] [address] Dr. Jorge Glaser LIPID PROFILEon 09-01-2022 CHOL-HDL RATIO NORM SEE BELOW Normal [facility] Comment on above: Result Comment: 3.3 - 4.4 LOW RISK 4.4 - 7.1 AVERAGE RISK 7.1 - 11.0 MODERATE RISK >11.0 HIGH RISK Performed By: #### L IPID, T7, CMP, TSH #### [facility] [address] [place] [address] Dr. Jorge Glaser Cholesterol [Mass/Vol] 128 mg/dL Normal <=200 [facility] Comment on above: Performed By: #### L IPID, T7, CMP, TSH #### [facility] [address] [place] [address] Dr. Jorge Glaser Cholesterol in HDL [Mass/Vol] 61 mg/dL Critically high 40-60 [facility] Comment on above: Performed By: #### L IPID, T7, CMP, TSH #### [facility] [address] [address] [address] Jorge Glaser Cholesterol in LDL [Mass/Vol] 49.0 mg/dL Normal [facility] Comment on above: Performed By: #### L IPID, T7, CMP, TSH #### [facility] [address] [address] [address] Jorge Glaser Cholesterol.total/C holesterol in HDL [Mass ratio] 2.1 {ratio} Normal [facility] Comment on above: Performed By: #### L IPID, T7, CMP, TSH #### [facility] [address] [address] [address] Jorge Glaser HDL NORMAL > or = 60 mg/dl - LO W CARDIOVASCULAR RISK <40 mg/dl - HIGH CARDIOVASCULAR RISK Normal [facility] Comment on above: Performed By: #### L IPID, T7, CMP, TSH #### [facility] [address] [address] [address] Jorge Glaser LDL CALC NORMAL SEE BELOW Normal [facility] Comment on above: Result Comment: <100 mg/dl OPTIMAL 100 - 129 mg/dl NEAR OR ABOVE OPTIMAL 130 - 159 mg/dl BORDERLINE HIGH 160 - 189 mg/dl HIGH >190 mg/dl VERY HIGH Performed By: #### L IPID, T7, CMP, TSH #### [facility] [address] [address] [address] Jorge Glaser Triglyceride [Mass/Vol] 90 mg/dL Normal <=150 [facility] Comment on above: Performed By: #### L IPID, T7, CMP, TSH #### [facility] [address] [address] [address] Jorge Glaser VLDL CALC 18.0 mg/dL Normal [facility] Comment on above: Performed By: #### L IPID, T7, CMP, TSH #### [facility] [address] [address] [address] Jorge Glaser PROF 14(COMP METB)on 023 Albumin [Mass/Vol] 3.5 g/dL Normal 3.4-5.0 [facility] Comment on above: Performed By: #### L IPID, T7, CMP, TSH #### [facility] [address] [place] [address] Dr. Jorge Glaser Albumin/Globulin [Mass ratio] 1.1 {ratio} Normal [facility] Comment on above: Performed By: #### L IPID, T7, CMP, TSH #### [facility] [address] [address] [address] Jorge Glaser ALP [Catalytic activity/Vol] 42 U/L Critically low 46-116 [facility] Comment on above: Performed By: #### L IPID, T7, CMP, TSH #### [facility] [address] [address] [address] Jorge Glaser ALT [Catalytic activity/Vol] 23 U/L Normal 14-59 [facility] Comment on above: Performed By: #### L IPID, T7, CMP, TSH #### [facility] [address] [address] [address] Jorge Glaser Anion gap [Moles/Vol] 10.0 mmol/L Normal [facility] Comment on above: Performed By: #### L IPID, T7, CMP, TSH #### [facility] [address] [address] [address] Jorge Glaser AST [Catalytic activity/Vol] 21 U/L Normal 15-37 [facility] Comment on above: Performed By: #### L IPID, T7, CMP, TSH #### [facility] [address] [address] [address] Jorge Glaser Bilirubin [Mass/Vol] 0.5 mg/dL Normal 0.2-1.0 [facility] Comment on above: Performed By: #### L IPID, T7, CMP, TSH #### [facility] [address] [address] [address] Jorge Glaser Calcium [Mass/Vol] 9.2 mg/dL Normal 8.5-10.1 [facility] Comment on above: Performed By: #### L IPID, T7, CMP, TSH #### [facility] [address] [address] [address] Jorge Glaser Chloride [Moles/Vol] 99 mmol/L Normal 98-107 [facility] Comment on above: Performed By: #### L IPID, T7, CMP, TSH #### [facility] [address] [address] [address] Jorge Glaser CO2 [Moles/Vol] 32.2 mmol/L Critically high 21.0-32.0 [facility] Comment on above: Performed By: #### L IPID, T7, CMP, TSH #### [facility] [address] [place] [address] Dr. Jorge Glaser Creatinine [Mass/Vol] 0.78 mg/dL Normal 0.55-1.02 [facility] Comment on above: Performed By: #### L IPID, T7, CMP, TSH #### [facility] [address] [place] [address] Dr. Jorge Glaser EGFR-AF [place]ER >60 Normal >=60 [facility] Comment on above: Performed By: #### L IPID, T7, CMP, TSH #### [facility] [address] [place] [address] Dr. Jorge Glaser EGFR-NON AF [place] >60 Normal >=60 [facility] Comment on above: Performed By: #### L IPID, T7, CMP, TSH #### [facility] [address] [address] [address] Jorge Glaser Globulin (S) [Mass/Vol] 3.2 g/dL Normal [facility] Comment on above: Performed By: #### L IPID, T7, CMP, TSH #### [facility] [address] [place] [address] Dr. Jorge Glaser Glucose [Mass/Vol] 100 mg/dL Normal 74-106 [facility] Comment on above: Performed By: #### L IPID, T7, CMP, TSH #### [facility] [address] [place] [address] Dr. Jorge Glaser Potassium [Moles/Vol] 3.2 mmol/L Critically low 3.5-5.1 [facility] Comment on above: Performed By: #### L IPID, T7, CMP, TSH #### [facility] [address] [address] [address] Jorge Glaser Protein [Mass/Vol] 6.7 g/dL Normal 6.4-8.2 [facility] Comment on above: Performed By: #### L IPID, T7, CMP, TSH #### [facility] [address] [address] [address] Jorge Glaser Sodium [Moles/Vol] 138 mmol/L Normal 136-145 [facility] Comment on above: Performed By: #### L IPID, T7, CMP, TSH #### [facility] [address] [place] [address] Dr. Jorge Glaser Urea nitrogen [Mass/Vol] 17.0 mg/dL Normal 7.0-18.0 [facility] Comment on above: Performed By: #### L IPID, T7, CMP, TSH #### [facility] [address] [address] [address] Jorge Glaser Urea nitrogen/Creatinine [Mass ratio] 21.8 mg/mg Normal [facility] Comment on above: Performed By: #### L IPID, T7, CMP, TSH #### [facility] [address] [address] [address] Jorge Glaser TSHon 09-01-2022 TSH 4.483 uIU/mL Critically high 0.358-3.740 [facility] Comment on above: Performed By: #### L IPID, T7, CMP, TSH #### [facility] [address] [place] [address] Dr. Jorge Glaser XR DEXA BONE DENSITYon 08-27 XR DEXA BONE DENSITY EXAMINATION: XR DEXA BONE DENSITY, 08/27/2022 2:04 PM EST HISTORY: [...] Low Fracture Risk Electronically authenticated by: KD DALY Date: 2022-08-27 16:23 Normal [facility] CBC AUTO DIFFon 05-22-2022 BASO # 0.1 103/ul Normal 0.0-0.1 [facility] Comment on above: Performed By: #### L IPID, T7, CMP, TSH #### [facility] [address] [address] [address] Jorge Glaser Basophils/100 WBC (Bld) 0.5 % Normal 0.2-2.0 [facility] Comment on above: Performed By: #### L IPID, T7, CMP, TSH #### [facility] [address] [address] [address] Jorge Glaser EO # 0.2 103/ul Normal 0.0-0.7 [facility] Comment on above: Performed By: #### L IPID, T7, CMP, TSH #### [facility] [address] [address] [address] Jorge Glaser Eosinophils/100 WBC (Bld) 2.0 % Normal 0.9-7.0 [facility] Comment on above: Performed By: #### L IPID, T7, CMP, TSH #### [facility] [address] [address] [address] Jorge Glaser Erythrocyte distribution width (RBC) [Ratio] 14.1 % Normal 11.0-15.0 [facility] Comment on above: Performed By: #### L IPID, T7, CMP, TSH #### [facility] [address] [address] [address] Jorge Glaser Hematocrit (Bld) [Volume fraction] 42.2 % Normal 36.0-48.0 [facility] Comment on above: Performed By: #### L IPID, T7, CMP, TSH #### [facility] [address] [place] [address] Dr. Jorge Glaser Hemoglobin (Bld) [Mass/Vol] 14.2 g/dL Normal 12.0-16.0 [facility] Comment on above: Performed By: #### L IPID, T7, CMP, TSH #### [facility] [address] [place] [address] Dr. Jorge Glaser IG # 0.08 10e3/ul Critically high 0.00-0.03 [facility] Comment on above: Performed By: #### L IPID, T7, CMP, TSH #### [facility] [address] [place] [address] Dr. Jorge Glaser IG % 0.8 % Critically high 0.0-0.5 [facility] Comment on above: Performed By: #### L IPID, T7, CMP, TSH #### [facility] [address] [place] [address] Dr. Jorge Glaser LYMPH # 1.2 103/ul Normal 1.2-3.8 [facility] Comment on above: Performed By: #### L IPID, T7, CMP, TSH #### [facility] [address] [place] [address] Dr. Jorge Glaser Lymphocytes/100 WBC (Bld) 11.9 % Critically low 20.5-60.0 [facility] Comment on above: Performed By: #### L IPID, T7, CMP, TSH #### [facility] [address] [place] [address] Dr. Jorge Glaser MANUAL DIFF REQ NO Normal [facility] Comment on above: Performed By: #### L IPID, T7, CMP, TSH #### [facility] [address] [place] [address] Dr. Jorge Glaser MCH (RBC) [Entitic mass] 30.8 pg Normal 26.7-34.0 [facility] Comment on above: Performed By: #### L IPID, T7, CMP, TSH #### [facility] [address] [place] [address] Dr. Jorge Glaser MCHC (RBC) [Mass/Vol] 33.6 g/dL Normal 29.9-35.2 [facility] Comment on above: Performed By: #### L IPID, T7, CMP, TSH #### [facility] [address] [place] [address] Dr. Jorge Glaser MCV (RBC) [Entitic vol] 91.5 fL Normal 81.0-99.0 [facility] Comment on above: Performed By: #### L IPID, T7, CMP, TSH #### [facility] [address] [place] [address] Dr. Jorge Glaser MONO # 0.5 103/ul Normal 0.3-0.8 [facility] Comment on above: Performed By: #### L IPID, T7, CMP, TSH #### [facility] [address] [place] [address] Dr. Jorge Glaser Monocytes/100 WBC (Bld) 5.0 % Normal 1.7-12.0 [facility] Comment on above: Performed By: #### L IPID, T7, CMP, TSH #### [facility] [address] [place] [address] Dr. Jorge Glaser NEUT # 8.3 103/ul Critically high 1.4-6.5 [facility] Comment on above: Performed By: #### L IPID, T7, CMP, TSH #### [facility] [address] [place] [address] Dr. Jorge Glaser Neutrophils/100 WBC (Bld) 79.8 % Critically high 43.0-75.0 [facility] Comment on above: Performed By: #### L IPID, T7, CMP, TSH #### [facility] [address] [place] [address] Dr. Jorge Glaser Platelet mean volume (Bld) [Entitic vol] 9.0 fL Critically low 9.5-13.5 [facility] Comment on above: Performed By: #### L IPID, T7, CMP, TSH #### [facility] [address] [address] [address] Jorge Glaser PLT 154 103/ul Normal 150-450 [facility] Comment on above: Performed By: #### L IPID, T7, CMP, TSH #### [facility] [address] [address] [address] Jorge Glaser RBC 4.61 106/ul Normal 4.20-5.40 [facility] Comment on above: Performed By: #### L IPID, T7, CMP, TSH #### [facility] [address] [address] [address] Jorge Glaser WBC 10.4 103/ul Normal 4.0-11.0 [facility] Comment on above: Performed By: #### L IPID, T7, CMP, TSH #### [facility] [address] [place] [address] Dr. Jorge Glaser PROF CHEM 8 (BAS METB)on Anion gap [Moles/Vol] 9.0 mmol/L Normal [facility] Comment on above: Performed By: #### L IPID, T7, CMP, TSH #### [facility] [address] [address] [address] Jorge Glaser Calcium [Mass/Vol] 10.0 mg/dL Normal 8.5-10.1 [facility] Comment on above: Performed By: #### L IPID, T7, CMP, TSH #### [facility] [address] [place] [address] Dr. Jorge Glaser Chloride [Moles/Vol] 94 mmol/L Critically low 98-107 [facility] Comment on above: Performed By: #### L IPID, T7, CMP, TSH #### [facility] [address] [place] [address] Dr. Jorge Glaser CO2 [Moles/Vol] 31.4 mmol/L Normal 21.0-32.0 [facility] Comment on above: Performed By: #### L IPID, T7, CMP, TSH #### [facility] [address] [place] [address] Dr. Jorge Glaser Creatinine [Mass/Vol] 0.69 mg/dL Normal 0.55-1.02 [facility] Comment on above: Performed By: #### L IPID, T7, CMP, TSH #### [facility] [address] [address] [address] Jorge Glaser EGFR-AF [place] >60 Normal >=60 [facility] Comment on above: Performed By: #### L IPID, T7, CMP, TSH #### [facility] [address] [address] [address] Jorge Glaser EGFR-NON AF [place] ISLANDER >60 Normal >=60 [facility] Comment on above: Performed By: #### L IPID, T7, CMP, TSH #### [facility] [address] [address] [address] Jorge Glaser Glucose [Mass/Vol] 129 mg/dL Critically high 74-106 T [facility] Comment on above: Performed By: #### L IPID, T7, CMP, TSH #### [facility] [address] [place] [address] Dr. Jorge Glaser Potassium [Moles/Vol] 3.4 mmol/L Critically low 3.5-5.1 [facility] Comment on above: Performed By: #### L IPID, T7, CMP, TSH #### [facility] [address] [address] [address] Jorge Glaser Sodium [Moles/Vol] 131 mmol/L Critically low 136-145 Th [facility] Comment on above: Performed By: #### L IPID, T7, CMP, TSH #### [facility] [address] [place] [address] Dr. Jorge Glaser Urea nitrogen [Mass/Vol] 17.0 mg/dL Normal 7.0-18.0 [facility] Comment on above: Performed By: #### L IPID, T7, CMP, TSH #### [facility] [address] [address] [address] Jorge Glaser Urea nitrogen/Creatinine [Mass ratio] 24.6 mg/mg Normal [facility] Comment on above: Performed By: #### L IPID, T7, CMP, TSH #### [facility] [address] [address] [address] Jorge Glaser NM STRESS/REST MULTIon 03-22 NM STRESS/REST MULTI Patient: KAREN GIFFORD Exam Date: 03/22/2022 : 1935 Gender:F Ordering : DR VINCENZO AUSTIN . Admission #: [id number] Family : CHILANGO SANDOVAL [facility] Order #: [id number] CLICK HERE TO VIEW EXAM RADIOLOGY REPORT [...] Rachel MD on 03/23/2022 at 11:42 Normal [facility] Clinical Summaryo n 02-17-2021 Ambulatory Clinical Summary {[id number]}CD:[id number] Normal [facility] Historical Records Officeon 02-17-2021 Historical Records Office [id number] 0CD:127 Normal [facility] Physician Referralon 021 Physician Referral [id number] CD:127 Normal [facility] Provider Letter FTMCon 11-20 Provider Letter [facility] [place], [address] [place] [address] [place] [address] Re: KAREN GIFFORD Date of : 1935 Thank you for your referral of Karen Gifford who was seen on consultation for sebaceous cyst left upper back on November 19, 2020. I have enclosed my consultation note for your review. I will be happy to follow Karen should her symptoms persist. Sincerely, Avtar Jones MD General Surgery [facility] Ambulatory Clinical Summaryo n 11-19-2020 Ambulatory Clinical Summary {[id number]}CD:[id number] Normal [facility] General Surgery Office/Clini c Noteon 11-19-2020 General Surgery Office/Clinic Note HPI Staff pt was referred by Dr Austin for Sebaceous cyst lt upper back not sure how long its been there, no bleeding but her bra rubs it sometimes and can hurt a little then. History of Present Illness 85 yo female with h/o htn, LANEY, valvular insufficiency, DJD, referred by Dr Austin for sebaceous cyst on left back, rubs on bra strap; no drainage; on baby asa and Plavix daily; no h/o injury to area or drainage, no previous cyst removal; h/o skin cancer, one recently removed form right forehead by Dictaphone Mechanic. Review of Systems ROS - Provider Constitutional: [...] With When Contact Information CAITLIN CORDON, Avtar Siegel Only if needed [address] [place] [address]- Additional Instructions: Patient Education Epidermal [...] mg= 1 tab(s), Oral, BID Dry Eye Milo Benefits, Oral, BID hydrALAZINE 50 mg Tab, [...] Tobacco Use:. 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 How is this treated? In many cases, [...] Follow these instructions at home: ? Take mmfb-fmh-ryxeyah and prescription medicines only as told by [...] mouth or through an injection. ? Take rgdx-mkf-wsnnpcj and prescription medicines only as told by [...] 07/02/2005 Document Revised: 11/22/2019 Document Reviewed: 02/12/2019 [employer] Patient Education ? 2019 [employer] Normal [facility] Physician Referralon 021 Physician Referral [id number] 30 [id number] 0CD:127 Normal [facility] Vital Signs Date Time Vital Sign Value Performing Clinician Low meyers 06-28-2023 13:37-0500 Body height 170.2 cm Jay Guerra MD Work Phone: [facility] 06-28-2023 13:37-0500 Diastolic blood pressure 60 mm[Hg] Jay Guerra MD Work Phone: [facility] 06-28-2023 13:37-0500 Heart rate 77 /min Jay Guerra MD Work Phone: [facility] 06-28-2023 13:37-0500 Systolic blood pressure 90 mm[Hg] Jay Guerra MD Work Phone: [facility] Encounters Encounter Date Encounter Type Care Provider Facility Start: 03-14-2024 Evaluation and manag ement of inpatient [facility] Start: 03-14-2024 Evaluation and manag ement of inpatient [facility] Start: 03-13-2024 Evaluation and manag ement of inpatient [facility] Start: 03-12-2024 Evaluation and manag ement of inpatient [facility] Start: 03-10-2024 Evaluation and manag ement of inpatient [facility] Start: 03-09-2024 Evaluation and manag ement of inpatient [facility] Start: 03-09-2024 Evaluation and manag ement of inpatient [facility] Start: 03-09-2024 Evaluation and manag ement of inpatient [facility] Start: 03-08-2024 End: 03-15-2024 Evaluation and management of inpatient UNKNOWN UNKNOWN [facility] Start: 02-02-2024 Orders Only Jay Guerra MD Work Phone: [facility] Comment on above: PAF (paroxysmal atri al fibrillation) (HCC) (Primary Dx); Presence of cardiac pacemaker Start: 01-02-2024 End: 01-02-2024 ambulatory LORIE PARK Not Available Start: 12-01-2023 ambulatory ABIMBOLA CHACON Facilit y:[facility] Start: 12-01-2023 End: 12-01-2023 Office outpatient visit 15 minutes Abimbola Chacon MD Work Phone: [facility] Comment on above: Primary open-angle g laucoma, bilateral, indeterminate stage (Primary Dx) Start: 11-23-2023 End: 12-08-[address] [facility] Start: 06-28-2023 End: 06-29-2023 ambulatory [facility] Start: 06-28-2023 End: 06-28-2023 Office outpatient new 60 minutes Jay Guerra MD Work Phone: [facility] Comment on above: PAF (paroxysmal atri al fibrillation) (HCC) (Primary Dx); Presence of cardiac pacemaker; SSS (sick sinus syndrome) (HCC); Hypertension, unspecified type; Heart failure with preserved ejection fraction, unspecified HF chronicity (HCC) Start: 06-23-2023 Orders Only Jay Guerra MD Work Phone: [facility] Comment on above: PAF (paroxysmal atri al fibrillation) (HCC) (Primary Dx) Start: 06-03-2023 End: 06-03-2023 ambulatory TIFFANI ELROY [facility] Start: 05-31-2023 ambulatory ABIMBOLA CHACON [facility] y:[facility] Start: 05-31-2023 End: 05-31-2023 Office outpatient new 45 minutes Abimbola Chacon MD Work Phone: [facility] [place] Comment on above: Primary open-angle g laucoma, bilateral, indeterminate stage (Primary Dx); PCO (posterior capsular opacification), left Start: 05-06-2023 End: 05-06-2023 ambulatory [facility] Start: 04-12-2023 End: 04-12-2023 ambulatory [facility] Start: 03-09-2023 End: 03-10-2023 ambulatory VINCENZO AUSTIN [facility] Start: 12-27-2022 End: 12-28-2022 ambulatory CHILANGO SANDOVAL Facility:[facility]1 Start: 12-01-2022 End: 12-02-[address] VINCENZO AUSTIN . Facility:[facility] Start: 11-11-2022 End: 11-12-[address] VINCENZO AUSTIN . Facility:[facility] Start: 11-04-2022 End: 11-05-[address] VINCENZO AUSTIN . Facility:[facility] Start: 10-04-2022 End: 10-05-[address] VINCENZO AUSTIN . Facility:[facility] Start: 09-01-2022 End: 09-02-[address] VINCENZO AUSTIN . Facility:[facility] Start: 08-27-2022 End: 08-28-[address] VINCENZO AUSTIN . Facility:[facility] Start: 08-27-2022 End: 09-11-[address] VINCENZO AUSTIN . Facility:[facility] Start: 05-22-2022 End: 05-22-[address] VINCENZO AUSTIN . Facility:[facility] Start: 03-22-2022 End: 03-23-[address] VINCENZO AUSTIN . Facility: Procedures Date Procedure Procedure Detail Performing Clinician Start: 12-01-2023 Visual field xm uni/ bi w/interp extended exam Abimbola Chacon MD Work Phone: Start: 06-28-2023 Ecg routine ecg w/le ast 12 lds w/i&r Jay Guerra MD Work Phone: Start: 05-31-2023 Computerized ophthal jennifer imaging optic nerve Abimbola Chacon MD Work Phone: Start: 05-31-2023 Post-cataract laser surgery Abimbola Chacon MD Work Phone: Plan of Treatment Date Care Activity Detail Author Start: 06-09-2032 Tetanus vaccination [facility] Start: 06-28-2024 CLASS III : OFFICE VISIT CLASS III : OFFICE VISIT [facility] Start: 06-04-2024 End: 06-04-2024 Patient encounter procedure 06/04/2024 3:30 PM EDT Office Visit [facility] [address] [place] [address] Abimbola Chacon MD [address] [place] [address] [facility] Start: 03-14-2024 End: 03-14-2024 Patient encounter procedure [facility] Start: 02-21-2024 End: 02-21-2024 Patient encounter procedure 02/21/2024 7:00 AM EDT Appointment [facility] [address] [place] [address] Simone Campoverde MD [address] [place] [address] [facility] Start: 12-27-2023 End: 12-27-2023 Patient encounter procedure 12/27/2023 1:50 PM EDT Office Visit [facility] [address] [place] [address] Jay Guerra MD [address] [id number] [facility] Start: 12-01-2023 End: 12-01-2023 Patient encounter procedure 12/01/2023 10:30 AM EDT Office Visit [facility] [address] [place] [address] Abimbola Chacon MD [address] [place] [address] [facility] Start: 09-26-2023 COVID-19 Vaccine ( season) COVID-19 Vaccine ( season) [facility] Start: 06-28-2023 End: 06-28-2023 Patient encounter procedure 06/28/2023 1:00 PM EST Office Visit [facility] [address] [place] [address] Jay Guerra MD [address] [place] [address] [facility] Start: 04-15-2023 COVID-19 VACCINE ( season) COVID-19 VACCINE ( season) [facility] Start: 04-15-2023 Influenza vaccination Sequenti al Influenza Vaccine (#1) [facility] Start: 01-23-2015 Screening for malign ant neoplasm of breast MAMMOGRAM SCREENING DISCUSSION [facility] Start: 2002 Fall risk assessment Falls Risk Asse ssment [facility] Start: 2002 Pneumococcal vaccination [facility] Start: 2002 Pneumococcal Vaccine : Age 65+ (1 - PCV) Pneumococcal Vaccine: Age 65+ (1 - PCV) [facility] Start: 2002 Pneumococcal Vaccine : Age 65+ (1 of 1 - PCV) Pneumococcal Vaccine: Age 65+ (1 of 1 - PCV) [facility] Start: 1987 Administration of he rpes zoster vaccine Zoster Vaccines (1 of 2) [facility] Start: 1987 Zoster vaccine hzv l trace for subcutaneous use ZOSTER (SHINGLES) VACCINE (1 of 2) [facility] Start: 1982 Screening for malign ant neoplasm of colon COLORECTAL CANCER SCREENING DISCUSSION [facility] Start: 1958 Screening for malign ant neoplasm of cervix CERVICAL CANCER SCREENING DISCUSSION [facility] Start: 1949 Depression screening using PHQ-9 (Patient Health Questionnaire 9) score Depression Screening (PHQ-2/9) [facility] Start: 1940 History and physical examination, annual for health maintenance Wellness Visit [facility] Start: 1940 Medicare Wellness Visit Medicare [facility] lness Visit [facility] Start: 1937 Alanine aminotransfe rase measurement CLASS III : ALT [facility] Start: 1937 CLASS III : AST CLASS III : AST [facility] Start: 1937 CLASS III : CXR CLASS III : CXR [facility] Start: 1937 CLASS III : EKG CLASS III : EKG [facility] Start: 1937 CLASS III : PFT CLASS III : PFT [facility] Start: 1937 Potassium [Moles/vol ume] in Serum or Plasma POTASSIUM [facility] Start: 1937 Screening for osteoporosis [facility] Start: 1937 Thyroid stimulating hormone measurement [facility] End: 06-23-2024 12 lead ECG ECG 12 lead ECG Routine PAF (paroxysmal atrial fibrillation) (HCC) 1 Occurrences starting 06/23/2023 until 06/23/2024 [facility] Work Phone: Comment on above: 1 Occurrences starti ng 06/23/2023 until 06/23/2024 End: 02-01-2025 12 lead ECG ECG 12 lead ECG Routine PAF (paroxysmal atrial fibrillation) (HCC) Presence of cardiac pacemaker 4 Occurrences starting 02/02/2024 until 02/01/2025 [facility] Work Phone: Comment on above: 4 Occurrences starti ng 02/02/2024 until 02/01/2025 Ophthalmic us dx cor [place] pachymetry uni/bi PACHYMETRY-OU OR Charge Routine Primary open-angle glaucoma, bilateral, indeterminate stage Ordered: 05/31/2023 [facility] Comment on above: Ordered: 05/31/2023 Payers Date Payer Category Payer Private Health Insurance LISSA BOGGS OTHER AFTER MEDICARE [id number] 2016-Present [phone] [address] [address] [place] [address] [id number] 2002 Medicare [id number] 1959 Medicare [id number] 1959 Private Health Insurance [id number] 1935 Unknown [id number] [id number] .593 1937 Unknown [id number] 2.16.840.1.444042.3.579.2 .593 1937 Unknown [id number] 2.16.840.1.394441.3.579.2 .593 1937 Unknown [id number] 2.16.840.1.888491.3.579.2 .593 1937 Unknown [id number] 2.16.840.1.642171.3.579.2 .593 1937 Unknown [id number] 2.16.840.1.102813.3.579.2 .593 1937 Unknown [id number] 2.16.840.1.074192.3.579.2 .593 1937 Unknown [id number] 2.16.840.1.925745.3.579.2 .593 1937 Unknown [id number] 2.16.840.1.273746.3.579.2 .593 1937 Unknown [id number] 2.16.840.1.949732.3.579.2 .593 1937 Unknown [id number] 2.16.840.1.765955.3.579.2 .173 1937 Unknown [id number] 2.16.840.1.261037.3.579.2 .903 1937 Unknown [id number] 2.16.840.1.095559.3.579.2 .594 1937 Unknown [id number] 2.16.840.1.898165.3.579.2 .594 1937 Unknown [id number] 2.16.840.1.333473.3.579.2 .900 1937 Unknown [id number] 2.16.840.1.826818.3.579.2 .900 1935 Unknown [id number] 2.16.840.1.515213.3.579.2 .1259 Social History Date Type Detail Facility Start: 05-31-2023 End: 06-28-2023 Tobacco smoking status IAIS Never smoked tobacco [facility] Start: 05-31-2023 End: 06-28-2023 Tobacco use and exposure Smokeless tobacco non-user [facility] Start: 05-31-2023 End: 12-01-2023 Alcohol intake Ex-drinker (finding) [facility] Start: 05-31-2023 End: 06-28-2023 History of Social function [facility] Start: 05-31-2023 End: 06-28-2023 Tobacco use panel [facility] Start: 1935 Sex Assigned At Not on file O [facility] Tobacco smoking status IAIS Tobacco smoking consumption unknown [facility] Start: 06-28-2023 Alcohol intake Lifetime non-d burak (finding) [facility] Medical Equipment Procedure Code Equipment Code Equipment Origin al Text Equipment Identifier Dates Acclarent [id number] Edora 8 Chrissy [id number] Start: 05-12-2022 Acclarent 377 17 7 Solia S 53 [id number] Start: 05-12-2022 Acclarent 377 17 6 Solia S 45 [id number] Start: 05-12-2022 Clinical Notes 02-17-2021 to 03-15-2024 Mindi Holt - 12/01/2023 10:30 AM Oneil Chacon MD - 12/01/2023 10:30 AM Jay Tripp MD - 06/28/2023 1:00 PM ESTPatient Kimberli Ndiaye - 05/31/2023 10:15 AM EDT Note Date & Type Note Facility 03-15-2024 Note Attestation signed by Juan Casillas MD at 03/18/2024 10:52 PM I reviewed the salient portions of the patient history. I have seen and examined the patient during rounds with the resident/fellow Dr. Ni on 03/15. I repeated the jessica components of the exam. Agree with the noted assessment and plan. Juan Casillas MD [facility] Pulmonary and Critical Care Medicine Pulmonology Progress Patient : Karen Gifford; 88 y.o. Location: 3124/3124-01 Attending: No att. providers found Admit Date: 03/08/2024 Hospital Day: 7 Reason for Consult: Asked to see for pleural effusion. Subjective: -Patient resting on room air, NAD, offers no complaint. Eager to be discharged home. Reports improvement in breathing post thoracentesis yesterday. Her pericardial drain has also been removed by Cardiology. Assessment: Acute on chronic heart failure with preserved ejection fraction Pericardial effusion with tamponade physiology status post pericardiocentesis Bilateral pleural effusion> s/p right thoracentesis on 03/14 with 850cc removed. Studies consistent with Exudate Pulmonary hypertension on TTE likely group 2 (EF of 60 to 65%, RVSP 45 mmHg) Sick sinus syndrome s/p PPM placement Chronic afib on xarelto LANEY not on CPAP Plan: - Follow up pleural fluid studies; cell count with lymphocytic predominance and exudate per Light's criteria - Follow up final pleural fluid cultures and cytology reports - Okay to resume Xarelto from pulmonary standpoint - Diuretics as per cardiology - Patient will require repeat chest x-ray outpatient and follow-up with pulmonology clinic in 4 to 6 weeks from discharge - Pulmonary will continue to follow inpatient Past History/Allergies?Social History: Past Medical History: Diagnosis Date A-fib ([facility]) CVA (cerebral vascular accident) ([facility]) GERD (gastroesophageal reflux disease) Hyperlipidemia Hypertension LANEY (obstructive sleep apnea) Osteoarthritis Allergies Allergen Reactions Farxiga [Dapagliflozin] Other Recurrent UTI Isosorbide Other Dry eyes Lisinopril Cough Morphine Other vomit Procardia [Nifedipine] Vasotec [Enalapril Maleate] Social History Socioeconomic History Marital status: Spouse name: Not on file Number of children: Not on file Years of education: Not on file Highest education level: Not on file Occupational History Not on file Tobacco Use Smoking status: Never Smokeless tobacco: Not on file Substance and Sexual Activity Alcohol use: Not on file Drug use: Not on file Sexual activity: Not on file Other Topics Concern Not on file Social History Narrative Not on file Social Determinants of Health Financial Resource Strain: Low Risk (03/08/2024) Overall Financial Resource Strain (CARDIA) Difficulty of Paying Living Expenses: Not hard at all Food Insecurity: No Food Insecurity (03/08/2024) Hunger Vital Sign Worried About Running Out of Food in the Last Year: Never true Ran Out of Food in the Last Year: Not on file Transportation Needs: No Transportation Needs (03/08/2024) Transportation Lack of Transportation (Medical): No Lack of Transportation (Non-Medical): Not on file Physical Activity: Not on file Stress: Not on file Social Connections: Not on file Intimate Partner Violence: Unknown (03/08/2024) Humiliation, Afraid, Rape, and Kick questionnaire Fear of Current or Ex-Partner: No Emotionally Abused: Not on file Physically Abused: Not on file Sexually Abused: Not on file Housing Stability: Low Risk (03/08/2024) Housing Stability Vital Sign Unable to Pay for Housing in the Last Year: Not on file Number of Places Lived in the Last Year: Not on file Unstable Housing in the Last Year: No Family History: No family history on file. Outpatient Medications: No medications prior to admission. Current Medications: Scheduled Meds: atorvastatin, 10 mg, oral, Nightly [Held by provider] bumetanide, 1 mg, intravenous, BID colchicine, 0.6 mg, oral, BID dilTIAZem CD, 240 mg, oral, Daily [Held by provider] hydrALAZINE, 25 mg, oral, TID insulin lispro, 0-5 Units, subcutaneous, q6h SEGUNDO latanoprost, 1 drop, Both Eyes, Nightly liothyronine, 10 mcg, oral, Daily metoprolol tartrate, 50 mg, oral, TID pantoprazole, 40 mg, oral, Daily [Held by provider] rivaroxaban, 20 mg, oral, Daily with evening meal timolol, 1 drop, Both Eyes, BID Continuous Infusions: Oxygen Therapy, PRN Meds: PRN medications: acetaminophen, glucose OR dextrose 50 % in water (D50W), melatonin, ondansetron ODT OR ondansetron, Oxygen Therapy, sennosides-docusate sodium, traMADol, traMADol Review of Systems: Review of Systems Constitutional: Negative for chills, fever and unexpected weight change. H (more content not included)... [facility] 03-15-2024 Note Physical Therapy Physical Therapy Evaluation Patient Name: Karen Gifford : 1935 Today's Date: 03/15/2024 Patient is a 88 y/o female who presents to [facility] 03/08/24 with progressive SOB. Found to have pericardial effusion s/p pericardiocentesis and drain placement/removal. Underwent R thoracentesis yesterday 03/13/24. Today, tolerated session fairly well. Resting HR ~106bpm with increase to 142bpm peak during ambulation in the hallway. Patient reports of not feeling right during that ambulation requesting BOARD LAYER for support. Discharge: Home with family assist (with daughter) General Subjective: RN approved PT session and OOB activity this date. Patient in chair upon arrival, agreeable to session. Upon completion, patient left in the chair with call light within reach. PT Diagnosis: Impaired activity tolerance Patient Active Problem List Diagnosis Paroxysmal atrial fibrillation (CMS/HCC) Sinus pause S/P placement of cardiac pacemaker Gastroesophageal reflux disease Hypertensive disorder Obstructive sleep apnea syndrome Osteoarthritis Multiple pulmonary nodules Acute on chronic diastolic (congestive) heart failure (CMS/HCC) Pericardial effusion Past Medical History: Diagnosis Date A-fib (CMS/HCC) CVA (cerebral vascular accident) (CMS/HCC) GERD (gastroesophageal reflux disease) Hyperlipidemia Hypertension LANEY (obstructive sleep apnea) Osteoarthritis Past Surgical History: Procedure Laterality Date APPENDECTOMY CARPAL TUNNEL RELEASE CHOLECYSTECTOMY HYSTERECTOMY Precautions Precautions Medical Precautions: fall risk, telemetry Pain Pain Assessment Pain Assessment: 0-10 Pain Score: 0 - No pain Cognition Cognition Overall Cognitive Status: Within Functional Limits Arousal/Alertness: Appropriate responses to stimuli Orientation Level: Oriented X4 Following Commands: Follows all commands and directions without difficulty General Assessment General Assessment Hearing: Intact Hand Dominance: Right Home Living Home Living Type of Home: House Lives With: Alone (Reports she will be staying with her daughter upon discharge) Home Adaptive Equipment: Rollator, Scooter Home Layout: One level Home Access: Level entry Bathroom Shower/Tub: Walk-in shower Bathroom Toilet: Handicapped height Bathroom Equipment: Grab bars in shower Prior Level of Function Prior Function Level of [place]: Independent with ADLs and functional transfers, Independent with homemaking with ambulation Prior Functional Mobility: Independent without device ADL Assistance: Independent Homemaking Assistance: Independent Vision Basic Assessment Vision - Basic Assessment Current Vision: No visual deficits Activity Tolerance Activity Tolerance Endurance: Stage III General Assessments Activity Tolerance Endurance: Stage III Sensation Light Touch: No apparent deficits Coordination Movements are Fluid and Coordinated: Yes Postural Control Postural Control: Within Functional Limits Static Sitting Balance Static Sitting-Balance Support: Feet supported Static Sitting-Level of Assistance: Independent Dynamic Sitting Balance Dynamic Sitting-Balance Support: Feet supported, Right upper extremity supported, Left upper extremity supported Dynamic Sitting-Balance: Forward lean Dynamic Sitting Balance-Level of Assistance: Independent Static Standing Balance Static Standing-Balance Support: No upper extremity supported Static Standing-Level of Assistance: Close supervision Dynamic Standing Balance Dynamic Standing-Balance Support: No upper extremity supported Dynamic Standing Balance-Level of Assistance: Contact guard Functional Assessments Bed Mobility Bed Mobility: No (In chair upon arrival) Transfers Transfer: Yes Transfer 1 Technique 1: Stand to sit, Sit to stand (From bedside chair) Transfer Device 1: none Transfer Level of Assistance 1: Close supervision Ambulation Ambulation: Yes Ambulation 1 Surface 1: Level tile Device 1: No device Assistance 1: Contact guard (BOARD LAYER X1) Quality of Gait 1: Increased postural sway, patient reports of feeling mildly unsteady. Would benefit from use of RW Comments/Distance (ft) 1: 100 ft Extremity Assessments RUE Assessment RUE Assessment: Within Functional Limits LUE Assessment LUE Assessment: Within Functional Limits RLE Assessment RLE Assessment: Within Functional Limits LLE Assessment LLE Assessment: Within Functional Limits Therapeutic Exercise Outcome Assessments 6 Clicks (Mobility) Help from another person turning from your back to your side while in a flat bed without using bedrails: None Help from another person moving from lying on your back to sitting on the side of a flat bed without using bedrails: None Help from another person moving to and from a bed to a chair (including a wheelchair): A little Help from another person (more content not included)... [facility] 03-15-2024 Note Hospital Medicine Discharge Summary Final Discharge Diagnosis: #Acute on chronic heart failure with preserved ejection fraction, NYHA class III at baseline, clinically compensated on #Pericardial effusion with tamponade physiology status post post pericardiocentesis, drain removed, #Bilateral pleural effusion s/p right/thoracentesis on March 14 1850 mL removed, likely exudative in nature, #Pulm hypertension grade/group 2 #Sick sinus syndrome with pacemaker in place, #Chronic atrial fibrillation rate controlled on Xarelto, #Obstructive sleep apnea not on CPAP, Admission Diagnosis: Pericardial effusion [I31.39] Hospital course: 88 y.o. female , where she presented with progressive shortness of breath both at rest and worse with exertion for 1 week. Patient denied any fever/chills, chest pain, cough but reported nausea without vomiting. She is undergoing workup for ovarian cancer. Patient was seen outpatient by her PCP who performed x-ray as an outpatient which showed no acute pathology and patient was started on oral antibiotics empirically for possible pneumonia. COVID test was negative at home. PFTs done at [facility] on 01/19/2023 showed restrictive pattern with FEV1 FEC ratio was normal at 85% of FVC was mildly reduced at 70% and FEV1 C was normal at 80% no significant change with bronchodilators and diffusion capacity was 45% when corrected with hemoglobin of 10.8. Patient has history of chronic atrial fibrillation s/p permanent pacemaker for sinus node dysfunction following DC cardioversion. Last echocardiogram performed on 02/22/2023 showed normal LVEF 62%, mild concentric LVH, severely dilated left atrium and severely dilated right atrium. Patient was started on GDMT for heart failure with preserved ejection fraction but Farxiga was discontinued due to frequent UTIs. Patient maintained on IV diuresis and switch to home regimen did well clinically compensated, found to have pericardial effusion with echo ordered tamponade physiology and had a pericardiocentesis drain placed, mamillated drain was removed and found to have some bleeding afterwards, so patient was kept in the hospital and Xarelto was held patient was evaluated by cardiology in 24 hours and deemed appropriate for discharge planning is also resumed as per cardiology recommendations, overall doing well, hemoglobin stable, no shortness of breath, will be discharged to follow-up with PCP and cardiology postdischarge. Surgical, Invasive or Diagnostic Procedures Done During Admission: Pericardiocentesis, Consultations During Admission: None Dear Dr. Norman MD, Karen is advised to follow up with you within 1-2 weeks. Items to follow up in ambulatory setting: None Follow-up with: Cardiology Scheduled appointments: Future Appointments Date Time Provider Department Center 04/25/2024 10:40 AM Tiffani Abbasi NP [facility] Your medication list START taking these medications Instructions Last Dose Given Next Dose Due atorvastatin 10 mg tablet Commonly known as: Lipitor Take 1 tablet (10 mg) by mouth at bedtime. colchicine 0.6 mg tablet Take 1 tablet (0.6 mg) by mouth two times daily for 120 doses. metoprolol tartrate 50 mg tablet Commonly known as: Lopressor Take 1 tablet (50 mg) by mouth three times daily. CHANGE how you take these medications Instructions Last Dose Given Next Dose Due dilTIAZem CD 240 mg 24 hr capsule Commonly known as: Cardizem CD Start taking on: March 16, 2024 What changed: medication strength how much to take Another medication with the same name was removed. Continue taking this medication, and follow the directions you see here. Take 1 capsule (240 mg) by mouth in the morning. Do not start before March 16, 2024. CONTINUE taking these medications Instructions Last Dose Given Next Dose Due bumetanide 1 mg tablet Commonly known as: Bumex latanoprost 0.005 % ophthalmic solution Commonly known as: Xalatan liothyronine 5 mcg tablet Commonly known as: Cytomel simvastatin 10 mg tablet Commonly known as: Zocor timolol 0.5 % ophthalmic solution Commonly known as: Betimol Xarelto 20 mg tablet Generic drug: rivaroxaban TAKE 1 TABLET EVERY EVENING WITH FOOD STOP taking these medications atenolol 100 mg tablet Commonly known as: Tenormin hydrALAZINE 100 mg tablet Commonly known as: Apresoline Where to Get Your Medications These medications were sent to [facility] - [place], [place] - [address] [facility] [address] [facility] [address], [facility] [address] atorvastatin 10 mg tablet colchicine 0.6 mg tablet dilTIAZem CD 240 mg 24 hr capsule metoprolol tartrate 50 mg tablet Karen is allergic to farxiga [dapagliflozin], isosorbide, lisinopril, morphine, procardia [nifedipine], and vasotec [enalapril maleate]. Disposition: Home or Self Care () Discharge Condition: Fair Code Status: Full Code Diag (more content not included)... [facility] 03-15-2024 Note Attestation signed by Tiera Heaton MD at 03/15/2024 1:42 PM GC: I saw this patient. I personally was physically present for the critical/jessica portions that determines the level of service. I was directly involved in the management and treatment plan of the patient. I reviewed resident Dr Mejia 's note and agree with the documentation Tiera Heaton MD, MPH, [facility], [facility], [facility] Interventional Cardiology Pager Email: [email or web address] Cardiology Progress Note REASON FOR CONSULT Reason for Consult: atrial fibrillation, Pericardial effusion, acute HFpEF SUBJECTIVE Interval History: Patient seen and examined at bedside. No overnight events. They have no complaints at this time and are doing well. Patient is afebrile and hemodynamically stable. Physical exam unchanged. HPI: Karen Gifford is a 88 y.o. 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 She was transferred from [facility] where she presented for SOB not improved by antibiotics, with CT chest finding large pericardial effusion as well as pleural effusion. She is being treated. for acute HFpEF, Afib with RVR,; echo found moderate anterior and large posterior pericardial effusion with pericardial thickening and no clear evidence of tamponade in addition to severe tricuspid regurgitation and moderate pulmonary hypertension, with preserved EF. EKG found afib with RVR and RBBB. AT CRP elevated at 12 with BNP 6000. , She was recently diagnosed with ovarian cyst and possible cancer. She started Colchicinefor acute pericarditis and has been diuresed with improved symptoms. She has iron deficiency anemia, no clear blood loss. OBJECTIVE Objective: Visit Vitals BP 106/53 (BP Location: Right arm, Patient Position: Lying) Pulse 82 Temp 36.4 ???C (97.5 ???F) (Temporal) Resp 16 Physical Examination: Physical Exam HENT: Head: Normocephalic and atraumatic. Cardiovascular: Rate and Rhythm: Normal rate and regular rhythm. Pulses: Normal pulses. Heart sounds: Normal heart sounds. Pulmonary: Effort: Pulmonary effort is normal. Breath sounds: Normal breath sounds. Abdominal: General: Bowel sounds are normal. Palpations: Abdomen is soft. Musculoskeletal: General: Normal range of motion. Skin: Capillary Refill: Capillary refill takes less than 2 seconds. Neurological: Mental Status: She is alert and oriented to person, place, and time. Psychiatric: Mood and Affect: Mood normal. Behavior: Behavior normal. Thought Content: Thought content normal. Judgment: Judgment normal. Current Meds: Current Facility-Administered Medications: acetaminophen (Tylenol) tablet 650 mg, 650 mg, oral, q6h PRN, Claudio Benavidez MD, 650 mg at 03/14/24 0133 atorvastatin (Lipitor) tablet 10 mg, 10 mg, oral, Nightly, Claudio Benavidez MD, 10 mg at 03/14/24 2110 [Held by provider] bumetanide (Bumex) injection 1 mg, 1 mg, intravenous, BID, Claudio Benavidez MD, 1 mg at 03/13/24 0634 colchicine tablet 0.6 mg, 0.6 mg, oral, BID, Claudio Benavidez MD, 0.6 mg at 03/15/24 0909 glucose chewable tablet 24 g, 24 g, oral, q15 min PRN OR dextrose 50 % in water (D50W) syringe 25 g, 25 g, intravenous, q15 min PRN, Claudio Benavidez MD dilTIAZem CD (Cardizem CD) 24 hr capsule 240 mg, 240 mg, oral, Daily, Claudio Benavidez MD, 240 mg at 03/15/24908 [Held by provider] hydrALAZINE (Apresoline) tablet 25 mg, 25 mg, oral, TID, Claudio Benavidez MD insulin lispro (HumaLOG) injection 0-5 Units, 0-5 Units, subcutaneous, q6h SEGUNDO, Claudio Benavidez MD, 1 Units at 03/11/24 1231 latanoprost (Xalatan) 0.005 % ophthalmic solution 1 drop, 1 drop, Both Eyes, Nightly, Claudio Benavidez MD, 1 drop at 03/14/24 2200 liothyronine (Cytomel) tablet 10 mcg, 10 mcg, oral, Daily, Claudio Benavidez MD, 10 mcg at 03/15/24908 melatonin tablet 5 mg, 5 mg, oral, Nightly PRN, Claudio Benavidez MD metoprolol tartrate (Lopressor) tablet 50 mg, 50 mg, oral, TID, Claudio Benavidez MD, 50 mg at 03/15/24 0909 ondansetron ODT (Zofran-ODT) disintegrating tablet 4 mg, 4 mg, oral, q8h PRN OR ondansetron HCl (PF) (Zofran) injection 4 mg, 4 mg, intravenous, q6h PRN, Claudio Benavidez MD Oxygen Therapy, , inhalation, Continuous PRN, Claudio Benavidez MD pantoprazole (ProtoNix) EC tablet 40 mg, 40 mg, oral, Daily, Claudio Benavidez MD, 40 mg at 03/15/24908 [Held by provider] rivaroxaban (Xarelto) tablet 20 mg, 20 mg, oral, Daily with evening meal, Claudio Benavidez MD, 20 mg at 03/11/24 1732 sennosides-docusate sodium (Renata-Colace) 8.6-50 mg per tablet 1 tablet, 1 tablet, oral, Daily PRN, Claudio Benavidez MD timolol (Timoptic) 0.5 % ophthalmic solution 1 drop, 1 drop, Both Eyes, BID, Claudio Benavidez MD, 1 drop at 03/15/24 0909 traMADol (Ultram) t (more content not included)... [facility] 03-14-2024 Note Physical Therapy Rn reports pericardial drain was recently pulled. Would like patient to lay in bed a while longer before getting up. OT evaluation completed today states patient is moving well, RN supports this. Will defer PT evaluation and follow up tomorrow. Likely recommendation of discharge to home. Chucky Butler PT, DPT [facility] 03-14-2024 Note Attestation signed by Paula Dean MD at 03/14/2024 1:30 PM I was present in the room during the entire procedure. THORACENTESIS PROCEDURE NOTE Procedure Snag Grinder: Eliseo Donovan MD Attending Physician: Dr. Dean, was present at bedside during the entire procedure. Procedure: Right sided thoracentesis Consent: Written, informed consent was obtained from the patient prior to the procedure Procedure Summary: The procedure was performed at bedside. A time-out was called, the patient was correctly identified using name, MRN and date of is a corresponding to the patient's wrist bracelet. The patient was placed in the sitting position. The site of entry was located using anatomic landmarks and ultrasound guidance (at right 7 th intercostal space, lateral to the scapula line). The area was prepped and draped in a sterile fashion. The area was locally anesthetized with a total of 10 cc of 1 percent lidocaine. Upon entry into the pleural space, straw appearing fluid was noted. Scalpel was then used to make an incision in the skin. 16-gauge angiocatheter needle was advanced into the space with negative suction until fluid was aspirated. The catheter was then advanced while the needle was held stationary. The catheter was attached to 3 way stopcock and using 50cc syringe hand suction was used to aspirate fluid. approximately 850 cc of fluid was removed. The specimen was sent for pH, glucose, total protein, LDH, cholesterol, as well as cell count with differential, cytology and cultures. The catheter was then removed and the procedure ended. The patient tolerated the procedure well. A post procedure chest x-ray was ordered. Findings: Successful removal of 850 cc light red colored fluid from the right side hemithorax. Eliseo Donovan Pulmonary and Critical Care Fellow [facility] 03-14-2024 Note Satisfactory for soraya luation. Examination of the ThinPrep slide and cell block reveals benign mesothelial cells and chronic inflammation. [facility] Comment on above: Performed By: #### L AB13 ####[facility] ([facility])[address] [place] [address] 03-14-2024 Note Occupational Therapy Occupational Therapy Evaluation Patient Name: Karen Gifford : 1935 Today's Date: 03/14/2024 Time In: 804 Time Out: 823 Karen Gifford is an 88 y.o. female , where she presented with progressive shortness of breath both at rest and worse with exertion for 1 week. Large pericardial effusion likely viral pericarditis S/p pericardiocentesis Bilateral pleural effusions General Subjective: friendly and cooperative Patient Active Problem List Diagnosis Paroxysmal atrial fibrillation (CMS/HCC) Sinus pause S/P placement of cardiac pacemaker Gastroesophageal reflux disease Hypertensive disorder Obstructive sleep apnea syndrome Osteoarthritis Multiple pulmonary nodules Acute on chronic diastolic (congestive) heart failure (CMS/HCC) Pericardial effusion Past Medical History: Diagnosis Date A-fib (CMS/HCC) CVA (cerebral vascular accident) (CMS/HCC) GERD (gastroesophageal reflux disease) Hyperlipidemia Hypertension LANEY (obstructive sleep apnea) Osteoarthritis Past Surgical History: Procedure Laterality Date APPENDECTOMY CARPAL TUNNEL RELEASE CHOLECYSTECTOMY HYSTERECTOMY Precautions Precautions Medical Precautions: fall risk, drain (pericardial drain) Pain Pain Assessment Pain Score: 0 - No pain Cognition Cognition Overall Cognitive Status: Within Functional Limits General Assessment General Assessment Hearing: (wfl with hearing aids) Hand Dominance: Right Home Living Home Living Type of Home: House Lives With: Alone (family near and assist as needed) Home Adaptive Equipment: Rollator, Scooter (hhs, rts) Home Layout: One level Home Access: Level entry Bathroom Shower/Tub: Walk-in shower Prior Level of Function Prior Function Level of [place]: Independent with ADLs and functional transfers, Independent with homemaking with ambulation (drives) Prior Functional Mobility: Independent without device Prior IADLs IADL History Homemaking Responsibilities: Yes Dynamic Sitting Balance Dynamic Sitting Balance Dynamic Sitting Balance-Level of Assistance: Independent Static Standing Balance Static Standing Balance Static Standing-Level of Assistance: Close supervision ADL ADL LE Dressing Assistance: Stand by Toileting Assistance with Device: Stand by Transfers Transfers Transfer: (in chair upon arrival., SBA:: sit to stand 25 feet to toilet/sit/stand/sink side hand washing and 25 feet to sit into chair) Objective General Assessments Activity Tolerance Endurance: Stage II Vision - Basic Assessment Current Vision: No visual deficits Sensation Light Touch: No apparent deficits Coordination Movements are Fluid and Coordinated: Yes Extremity Assessments RUE Assessment RUE Assessment: Within Functional Limits LUE Assessment LUE Assessment: Within Functional Limits Outcome Assessments AM-PAC 6 Clicks Putting on and taking off regular lower body clothing?: A Little (Min Assist/Contact Guard/Supervision) Bathing(Including washing,rinsing,drying)?: A Little (Min Assist/Contact Guard/Supervision) Toileting, which includes using the toilet,bedpan,or urinal?: A Little (Min Assist/Contact Guard/Supervision) Putting on and taking off regular upper body clothing?: None (Independent) Taking care of personal grooming such as brushing teeth?: None (Independent) Eating meals?: None (Independent) Total Score OT AMPA: 21 Assessment/Plan OT Assessment OT Impairments: Decreased ADL status, Decreased endurance, Decreased functional mobility OT Assessment/EDGARD Summary: (needs skilled OT due to weakness and fatigue) Prognosis: Good Evaluation/Treatment Tolerance: Patient limited by fatigue Medical Staff Made Aware: Yes OT Education/Comments: (LB adl and adl transfer safety / technique with good return demo) Plan Level of assist: 1 assist Treatment Interventions: ADL retraining, Functional transfer training, Endurance training, Patient/family training, Neuromuscular reeducation, Compensatory technique education OT Plan: Skilled OT OT Frequency: 5 times per week until discharge & PRN OT Discharge Recommendations: Home OT - Discharge Recommendations Placed: Yes OT Goals Multi-Disciplinary Problems (from Occupational Therapy) Active Problems Problem: Balance Start Date: 03/14/24 Goal Start Date Expected End Date End Date LTG - Patient will maintain stand balance to allow for safe mobility 03/14/24 03/21/24 -- Problem: Bathing Start Date: 03/14/24 Goal Start Date Expected End Date End Date LTG - Patient will utilize adaptive techniques to bathe body with no assistance 03/14/24 03/21/24 -- Problem: Dressings Lower Extremities Start Date: 03/14/24 Goal Start Date Expected End Date End Date LTG - Patient will dress lower body with no assistance 03/14/24 03/21/24 -- Problem: Toileting Start Date: 03/14/24 Goal Start Date (more content not included)... [facility] 03-14-2024 Note Attestation signed by Tiera Heaton MD at 03/14/2024 7:45 PM GC: I saw this patient. I personally was physically present for the critical/jessica portions that determines the level of service. I was directly involved in the management and treatment plan of the patient. I reviewed resident Dr Mejia 's note and agree with the documentation Repeat limited echo There is a moderate posterior effusion measuring 2.13 cm with organized thrombus and pericardial thickening. Features are not consistent with tamponade physiology. She will need a repeat echo in 5-7 days to assure absence of re accumulation of effusion Follow up on results of fluid analysis Tiera Heaton MD, MPH, FACC, [facility], [facility] Interventional Cardiology Pager Email: [email or web address] Cardiology Progress Note REASON FOR CONSULT Reason for Consult: atrial fibrillation, Pericardial effusion, acute HFpEF SUBJECTIVE Interval History: Patient seen and examined at bedside. No overnight events. They have no complaints at this time and are doing well. Patient is afebrile and hemodynamically stable. Physical exam unchanged. She had a Thoracentesis done this morning removing 1L of serosanguinous fluid. HPI: Karen Gifford is a 88 y.o. 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 She is being treated. for acute HFpEF, Afib with RVR,; echo found moderate anterior and large posterior pericardial effusion with pericardial thickening and no clear evidence of tamponade in addition to severe tricuspid regurgitation and moderate pulmonary hypertension, with preserved EF. EKG found afib with RVR and RBBB. AT CRP elevated at 12 with BNP 6000. , She was recently diagnosed with ovarian cyst and possible cancer. She started Colchicine for acute pericarditis and has been diuresed with improved symptoms. She has iron deficiency anemia, no clear blood loss. OBJECTIVE Objective: Visit Vitals BP 110/90 (BP Location: Left arm, Patient Position: Sitting) Pulse 75 Temp 36.4 ???C (97.5 ???F) (Temporal) Resp 21 Physical Examination: Physical Exam HENT: Head: Normocephalic and atraumatic. Cardiovascular: Rate and Rhythm: Normal rate and regular rhythm. Pulses: Normal pulses. Heart sounds: Normal heart sounds. Pulmonary: Effort: Pulmonary effort is normal. Breath sounds: Normal breath sounds. Abdominal: General: Bowel sounds are normal. Palpations: Abdomen is soft. Musculoskeletal: General: Normal range of motion. Skin: Capillary Refill: Capillary refill takes less than 2 seconds. Neurological: Mental Status: She is alert and oriented to person, place, and time. Psychiatric: Mood and Affect: Mood normal. Behavior: Behavior normal. Thought Content: Thought content normal. Judgment: Judgment normal. Current Meds: Current Facility-Administered Medications: acetaminophen (Tylenol) tablet 650 mg, 650 mg, oral, q6h PRN, Claudio Benavidez MD, 650 mg at 03/14/24 0133 [Held by provider] atorvastatin (Lipitor) tablet 10 mg, 10 mg, oral, Nightly, Claudio Benavidez MD, 10 mg at 03/08/24 2335 [Held by provider] bumetanide (Bumex) injection 1 mg, 1 mg, intravenous, BID, Claudio Benavidez MD, 1 mg at 03/13/24 0634 colchicine tablet 0.6 mg, 0.6 mg, oral, BID, Claudio Benavidez MD, 0.6 mg at 03/14/24 0957 glucose chewable tablet 24 g, 24 g, oral, q15 min PRN OR dextrose 50 % in water (D50W) syringe 25 g, 25 g, intravenous, q15 min PRN, Claudio Benavidez MD dilTIAZem CD (Cardizem CD) 24 hr capsule 240 mg, 240 mg, oral, Daily, Claudio Benavidez MD, 240 mg at 03/14/24 0957 [Held by provider] hydrALAZINE (Apresoline) tablet 25 mg, 25 mg, oral, TID, Claudio Benavidez MD insulin lispro (HumaLOG) injection 0-5 Units, 0-5 Units, subcutaneous, q6h SEGUNDO, Claudio Benavidez MD, 1 Units at 03/11/24 1231 latanoprost (Xalatan) 0.005 % ophthalmic solution 1 drop, 1 drop, Both Eyes, Nightly, Claudio Benavidez MD, 1 drop at 03/13/24 2210 liothyronine (Cytomel) tablet 10 mcg, 10 mcg, oral, Daily, Claudio Benavidez MD, 10 mcg at 03/14/24 0956 melatonin tablet 5 mg, 5 mg, oral, Nightly PRN, Claudio Benavidez MD metoprolol tartrate (Lopressor) tablet 50 mg, 50 mg, oral, TID, Claudio Benavidez MD, 50 mg at 03/14/24 0958 ondansetron ODT (Zofran-ODT) disintegrating tablet 4 mg, 4 mg, oral, q8h PRN OR ondansetron HCl (PF) (Zofran) injection 4 mg, 4 mg, intravenous, q6h PRN, Claudio Benavidez MD Oxygen Therapy, , inhalation, Continuous PRN, Claudio Benavidez MD pantoprazole (ProtoNix) EC tablet 40 mg, 40 mg, oral, Daily, Claudio Benavidez MD, (more content not included)... [facility] 03-14-2024 Note [facility] Medicine Daily Progress Note - 03/14/2024 7:57 AM; Room: [address] [place] [address] Admission: 03/08/2024 4:27 PM; Length of stay: 6 days THE HOSPITALIST TEAM PREFERS TO USE [employer] FOR COMMUNICATION 7AM-7PM. IF I DO NOT RESPOND WITHIN 15 MINUTES, PLEASE PAGE ME/CALL THROUGH THE ANTIQUE AUT[employer] REPAIRER. FROM 7PM-7AM, PLEASE PAGE [phone](COVR) Code Status: Full Code Barriers to Discharge: Echocardiogram on Tuesday, plan for thoracentesis Expected Discharge Date: 03/12/2024 Discharge Destination: home Overview Patient is seen for evaluation and management of progressive shortness of breath. Karen Gifford is an 88 y.o. female , where she presented with progressive shortness of breath both at rest and worse with exertion for 1 week. Patient denied any fever/chills, chest pain, cough but reported nausea without vomiting. She is undergoing workup for ovarian cancer. Patient was seen outpatient by her PCP who performed x-ray as an outpatient which showed no acute pathology and patient was started on oral antibiotics empirically for possible pneumonia. COVID test was negative at home. PFTs done at [facility] on 01/19/2023 showed restrictive pattern with FEV1 FEC ratio was normal at 85% of FVC was mildly reduced at 70% and FEV1 C was normal at 80% no significant change with bronchodilators and diffusion capacity was 45% when corrected with hemoglobin of 10.8. Patient has history of chronic atrial fibrillation s/p permanent pacemaker for sinus node dysfunction following DC cardioversion. Last echocardiogram performed on 02/22/2023 showed normal LVEF 62%, mild concentric LVH, severely dilated left atrium and severely dilated right atrium. Patient was started on GDMT for heart failure with preserved ejection fraction but Farxiga was discontinued due to frequent UTIs. EKG performed at [facility] showed atrial fibrillation, first-degree AV block. Subjective Patient was seen and examined at bedside this morning. She was alert awake and oriented. She denied any chest pain, shortness of breath, abdominal pain. Physical Exam Visit Vitals BP 108/63 Pulse 81 Temp 36.2 ???C (97.2 ???F) (Temporal) Resp 20 Intake/Output Summary (Last 24 hours) at 03/14/2024 0757 Last data filed at 03/14/2024 0320 Gross per 24 hour Intake 1083.11 ml Output 1657 ml Net -573.89 ml Physical Exam Constitutional: Appearance: Normal appearance. HENT: Mouth/Throat: Mouth: Mucous membranes are moist. Cardiovascular: Rate and Rhythm: Normal rate and regular rhythm. Pulses: Normal pulses. Heart sounds: Normal heart sounds. Pulmonary: Effort: Pulmonary effort is normal. Breath sounds: Normal breath sounds. Abdominal: General: Abdomen is flat. Palpations: Abdomen is soft. Musculoskeletal: General: Normal range of motion. Skin: General: Skin is warm. Neurological: General: No focal deficit present. Mental Status: She is alert and oriented to person, place, and time. Estimated body mass index is 22.8 kg/m??? as calculated from the following: Height as of this encounter: 1.702 m (5' 7 ). Weight as of this encounter: 66 kg (145 lb 9.6 oz). Active Inpatient Problems Principal Problem: Pericardial effusion Assessment and Plan Karen Gifford is an 88 y.o. female presented with progressive shortness of breath. Outside hospital CT chest showed large pericardial effusion. Patient is started on anti-inflammatory medications and diuresis, repeat echocardiogram to be performed on Tuesday. Large pericardial effusion likely viral pericarditis S/p pericardiocentesis Bilateral pleural effusions Echocardiogram performed on 03/08/2024 shows moderate anterior and large posterior pericardial effusion, pericardial thickening and organized clotting noted. Repeat echocardiogram on 03/12/2024 showed large posterior pericardial effusion, organized thrombus and pericardial thickening, tamponade physiology. Continue colchicine Pericardiocentesis performed on 03/13/2024, drain removed on 03/14/2024. Patient had quite a lot of bleeding after removing the drain. Cardiology team wanted the patient to be monitored for 1 more day in the hospital. 5.1 cm right adnexal cyst, being worked up for ovarian cancer outpatient Cancer screening: Mammogram performed at age 77, unremarkable. Colonoscopy performed 12 years ago, showed benign polyp. Thoracentesis for cytology performed on 03/14/2024. Oncology to follow the results outpatient. Elevated liver enzymes (improving) Continue to monitor Hold atorvastatin. CT abdomen and pelvis showed heterogeneous appearance of liver without focal mass, 5.9 cm simple cystic structure representing adnexal cyst. No evidence of metastasis. Heart failure with preserved ejection fraction NYHA class I Severe tricuspid regurgitation BNP 1085 Hold Bumex as patient had pericardiocentesis performed today. Chronic atrial fibrillation s/p dual-chamber PPM, on chronic an (more content not included)... [facility] 03-14-2024 Note Attestation signed by Puala Dean MD at 03/14/2024 1:32 PM The patient was seen and examined with the fellow Dr. Donovan. The fellow's note was reviewed and findings were confirmed. Assessment and plan discussed during rounds with the fellow and delineated below. Pulmonology Progress Patient : Karen Gifford; 88 y.o. Location: 3124/3124-01 Attending: Jami Su MD Admit Date: 03/08/2024 Hospital Day: 6 Reason for Consult: Asked by Dr Jami Su MD to see for dyspnea, pleural effusion. Subjective: Patient was seen and examined at bedside this morning -Patient resting on room air, NAD, offers no complaint -Status post pericardiocentesis yesterday, neutrophilic predominance, cultures in process, cytology pending Assessment: Acute on chronic heart failure with preserved ejection fraction Pericardial effusion status post pericardiocentesis yesterday Bilateral pleural effusion>> likely from fluid overload Pulmonary hypertension on echo Sick sinus syndrome s/p PPM placement Chronic afib on xarelto LANEY not on CPAP Hypertension Hx of COPD Plan: - Patient breathing comfortably on room air. -Last Xarelto dose was Tuesday evening, will perform right-sided bedside thoracentesis later this morning - Follow-up on recurrent effusion cytology -Pulm team will follow along following Past History/Allergies?Social History: Past Medical History: Diagnosis Date A-fib ([facility]) CVA (cerebral vascular accident) ([facility]) GERD (gastroesophageal reflux disease) Hyperlipidemia Hypertension LANEY (obstructive sleep apnea) Osteoarthritis Allergies Allergen Reactions Farxiga [Dapagliflozin] Other Recurrent UTI Isosorbide Other Dry eyes Lisinopril Cough Morphine Other vomit Procardia [Nifedipine] Vasotec [Enalapril Maleate] Social History Socioeconomic History Marital status: Spouse name: Not on file Number of children: Not on file Years of education: Not on file Highest education level: Not on file Occupational History Not on file Tobacco Use Smoking status: Never Smokeless tobacco: Not on file Substance and Sexual Activity Alcohol use: Not on file Drug use: Not on file Sexual activity: Not on file Other Topics Concern Not on file Social History Narrative Not on file Social Determinants of Health Financial Resource Strain: Low Risk (03/08/2024) Overall Financial Resource Strain (CARDIA) Difficulty of Paying Living Expenses: Not hard at all Food Insecurity: No Food Insecurity (03/08/2024) Hunger Vital Sign Worried About Running Out of Food in the Last Year: Never true Ran Out of Food in the Last Year: Not on file Transportation Needs: No Transportation Needs (03/08/2024) Transportation Lack of Transportation (Medical): No Lack of Transportation (Non-Medical): Not on file Physical Activity: Not on file Stress: Not on file Social Connections: Not on file Intimate Partner Violence: Unknown (03/08/2024) Humiliation, Afraid, Rape, and Kick questionnaire Fear of Current or Ex-Partner: No Emotionally Abused: Not on file Physically Abused: Not on file Sexually Abused: Not on file Housing Stability: Low Risk (03/08/2024) Housing Stability Vital Sign Unable to Pay for Housing in the Last Year: Not on file Number of Places Lived in the Last Year: Not on file Unstable Housing in the Last Year: No Family History: No family history on file. Outpatient Medications: Medications Prior to Admission Medication Sig Dispense Refill Last Dose atenolol (Tenormin) 100 mg tablet Take 100 mg by mouth in the morning and at bedtime. 03/07/2024 bumetanide (Bumex) 1 mg tablet Take 1 tablet by mouth in the morning. 03/07/2024 dilTIAZem (Cardizem) 30 mg immediate release tablet Take 1 tablet (30 mg) by mouth in the morning and at bedtime. 60 tablet 0 dilTIAZem CD (Cardizem CD) 300 mg 24 hr capsule Take 1 capsule (300 mg) by mouth in the morning. (Patient taking differently: Take 300 mg by mouth before lunch.) 90 capsule 3 03/07/2024 hydrALAZINE (Apresoline) 100 mg tablet Take 100 mg by mouth in the morning, at noon, and at bedtime. 03/07/2024 latanoprost (Xalatan) 0.005 % ophthalmic solution Administer 1 drop into both eyes at bedtime. 03/07/2024 liothyronine (Cytomel) 5 mcg tablet Take 2 tablets by mouth in the morning. 03/07/2024 simvastatin (Zocor) 10 mg tablet Take 10 mg by mouth at bedtime. 03/07/2024 timolol (Betimol) 0.5 % ophthalmic solution Administer 1 drop into both eyes two times daily. 03/07/2024 Xarelto 20 mg tablet TAKE 1 TABLET EVERY EVENING WITH FOOD 90 tablet 3 03/07/2024 Current Medications: Scheduled Meds: [Held by provider] atorvastatin, 10 mg, oral, Nightly [Held by provider] bumetanide, 1 mg, intravenous, BID cephalexi (more content not included)... [facility] 03-13-2024 Note Occupational Therapy Name: Karen Gifford Date of : 1935 Today's Date: 03/13/24 Pt is unable to be seen for therapy at this time secondary to bedrest until 1700 per nsg . Check No Charge Time attempted: 1434 [facility] 03-13-2024 Note Hospital Medicine Daily Progress Note - 03/13/2024 1:13 PM; Room: [address] [place] [address] Admission: 03/08/2024 4:27 PM; Length of stay: 5 days THE HOSPITALIST TEAM PREFERS TO USE [employer] FOR COMMUNICATION 7AM-7PM. IF I DO NOT RESPOND WITHIN 15 MINUTES, PLEASE PAGE ME/CALL THROUGH THE [employer] REPAIRER. FROM 7PM-7AM, PLEASE PAGE [phone](COVR) Code Status: Full Code Barriers to Discharge: Echocardiogram on Tuesday, plan for thoracentesis Expected Discharge Date: 03/12/2024 Discharge Destination: home Overview Patient is seen for evaluation and management of progressive shortness of breath. Karen Gifford is an 88 y.o. female , where she presented with progressive shortness of breath both at rest and worse with exertion for 1 week. Patient denied any fever/chills, chest pain, cough but reported nausea without vomiting. She is undergoing workup for ovarian cancer. Patient was seen outpatient by her PCP who performed x-ray as an outpatient which showed no acute pathology and patient was started on oral antibiotics empirically for possible pneumonia. COVID test was negative at home. PFTs done at [facility] on 01/19/2023 showed restrictive pattern with FEV1 FEC ratio was normal at 85% of FVC was mildly reduced at 70% and FEV1 C was normal at 80% no significant change with bronchodilators and diffusion capacity was 45% when corrected with hemoglobin of 10.8. Patient has history of chronic atrial fibrillation s/p permanent pacemaker for sinus node dysfunction following DC cardioversion. Last echocardiogram performed on 02/22/2023 showed normal LVEF 62%, mild concentric LVH, severely dilated left atrium and severely dilated right atrium. Patient was started on GDMT for heart failure with preserved ejection fraction but Farxiga was discontinued due to frequent UTIs. EKG performed at [facility] showed atrial fibrillation, first-degree AV block. Subjective Patient was seen and examined at bedside this morning. She was alert awake and oriented. She denied any chest pain, shortness of breath, abdominal pain. Physical Exam Visit Vitals BP 129/62 Pulse 77 Temp 36.3 ???C (97.4 ???F) (Temporal) Resp 15 Intake/Output Summary (Last 24 hours) at 03/13/2024 1313 Last data filed at 03/13/2024 1222 Gross per 24 hour Intake 1102.11 ml Output 1670 ml Net -567.89 ml Physical Exam Constitutional: Appearance: Normal appearance. HENT: Mouth/Throat: Mouth: Mucous membranes are moist. Cardiovascular: Rate and Rhythm: Normal rate and regular rhythm. Pulses: Normal pulses. Heart sounds: Normal heart sounds. Pulmonary: Effort: Pulmonary effort is normal. Breath sounds: Normal breath sounds. Abdominal: General: Abdomen is flat. Palpations: Abdomen is soft. Musculoskeletal: General: Normal range of motion. Skin: General: Skin is warm. Neurological: General: No focal deficit present. Mental Status: She is alert and oriented to person, place, and time. Estimated body mass index is 22.52 kg/m??? as calculated from the following: Height as of this encounter: 1.702 m (5' 7 ). Weight as of this encounter: 65.2 kg (143 lb 12.8 oz). Active Inpatient Problems Principal Problem: Pericardial effusion Assessment and Plan Karen Gifford is an 88 y.o. female presented with progressive shortness of breath. Outside hospital CT chest showed large pericardial effusion. Patient is started on anti-inflammatory medications and diuresis, repeat echocardiogram to be performed on Tuesday. Large pericardial effusion likely viral pericarditis S/p pericardiocentesis Bilateral pleural effusions Echocardiogram performed on 03/08/2024 shows moderate anterior and large posterior pericardial effusion, pericardial thickening and organized clotting noted. Repeat echocardiogram on 03/12/2024 showed large posterior pericardial effusion, organized thrombus and pericardial thickening, tamponade physiology. Continue colchicine Pericardiocentesis performed on 03/13/2024 5.1 cm right adnexal cyst, being worked up for ovarian cancer outpatient Cancer screening: Mammogram performed at age 77, unremarkable. Colonoscopy performed 12 years ago, showed benign polyp. Plan for thoracentesis as patient does not have a tissue diagnosis yet on 03/14/2024 Elevated liver enzymes (improving) Continue to monitor Hold atorvastatin. CT abdomen and pelvis showed heterogeneous appearance of liver without focal mass, 5.9 cm simple cystic structure representing adnexal cyst. No evidence of metastasis. Heart failure with preserved ejection fraction NYHA class I Severe tricuspid regurgitation BNP 1085 Hold Bumex as patient had pericardiocentesis performed today. Chronic atrial fibrillation s/p dual-chamber PPM, on chronic anticoagulation Continue Cardizem to 40 mg daily. Continue metoprolol tartrate 50 mg 3 times daily Start patient on digoxin as resting heart rate has been above 120. Hold Xarelto (more content not included)... [facility] 03-13-2024 Note Attestation signed by Paula Dean MD at 03/13/2024 5:21 PM The patient was seen and examined with the fellow Dr. Donovan. The fellow's note was reviewed and findings were confirmed. Assessment and plan discussed during rounds with the fellow and delineated below. Pulmonology Progress Patient : Karen Gifford; 88 y.o. Location: 3124/3124-01 Attending: Jami Su MD Admit Date: 03/08/2024 Hospital Day: 5 Reason for Consult: Asked by Dr Jami Su MD to see for dyspnea, pleural effusion. Subjective: Patient was seen and examined at bedside this morning -Patient resting on room air, NAD, offers no complaint - Going for pericardiocentesis this afternoon Assessment: Pericardial effusion with bilateral pleural effusion Acute on chronic heart failure with preserved ejection fraction Pulmonary hypertension on echo Sick sinus syndrome s/p PPM placement Chronic afib on xarelto LANEY not on CPAP Hypertension Hx of COPD Plan: - Patient breathing comfortably on room air. -Keep Xarelto on hold, last dose was Tuesday, will plan for bedside thoracentesis tomorrow morning. -Will follow-up on pericardial effusion fluid analysis - Pulmonary will follow along. Past History/Allergies?Social History: Past Medical History: Diagnosis Date A-fib ([facility]) CVA (cerebral vascular accident) ([facility]) GERD (gastroesophageal reflux disease) Hyperlipidemia Hypertension LANEY (obstructive sleep apnea) Osteoarthritis Allergies Allergen Reactions Farxiga [Dapagliflozin] Other Recurrent UTI Isosorbide Other Dry eyes Lisinopril Cough Morphine Other vomit Procardia [Nifedipine] Vasotec [Enalapril Maleate] Social History Socioeconomic History Marital status: Spouse name: Not on file Number of children: Not on file Years of education: Not on file Highest education level: Not on file Occupational History Not on file Tobacco Use Smoking status: Never Smokeless tobacco: Not on file Substance and Sexual Activity Alcohol use: Not on file Drug use: Not on file Sexual activity: Not on file Other Topics Concern Not on file Social History Narrative Not on file Social Determinants of Health Financial Resource Strain: Low Risk (03/08/2024) Overall Financial Resource Strain (CARDIA) Difficulty of Paying Living Expenses: Not hard at all Food Insecurity: No Food Insecurity (03/08/2024) Hunger Vital Sign Worried About Running Out of Food in the Last Year: Never true Ran Out of Food in the Last Year: Not on file Transportation Needs: No Transportation Needs (03/08/2024) Transportation Lack of Transportation (Medical): No Lack of Transportation (Non-Medical): Not on file Physical Activity: Not on file Stress: Not on file Social Connections: Not on file Intimate Partner Violence: Unknown (03/08/2024) Humiliation, Afraid, Rape, and Kick questionnaire Fear of Current or Ex-Partner: No Emotionally Abused: Not on file Physically Abused: Not on file Sexually Abused: Not on file Housing Stability: Low Risk (03/08/2024) Housing Stability Vital Sign Unable to Pay for Housing in the Last Year: Not on file Number of Places Lived in the Last Year: Not on file Unstable Housing in the Last Year: No Family History: No family history on file. Outpatient Medications: Medications Prior to Admission Medication Sig Dispense Refill Last Dose atenolol (Tenormin) 100 mg tablet Take 100 mg by mouth in the morning and at bedtime. 03/07/2024 bumetanide (Bumex) 1 mg tablet Take 1 tablet by mouth in the morning. 03/07/2024 dilTIAZem (Cardizem) 30 mg immediate release tablet Take 1 tablet (30 mg) by mouth in the morning and at bedtime. 60 tablet 0 dilTIAZem CD (Cardizem CD) 300 mg 24 hr capsule Take 1 capsule (300 mg) by mouth in the morning. (Patient taking differently: Take 300 mg by mouth before lunch.) 90 capsule 3 03/07/2024 hydrALAZINE (Apresoline) 100 mg tablet Take 100 mg by mouth in the morning, at noon, and at bedtime. 03/07/2024 latanoprost (Xalatan) 0.005 % ophthalmic solution Administer 1 drop into both eyes at bedtime. 03/07/2024 liothyronine (Cytomel) 5 mcg tablet Take 2 tablets by mouth in the morning. 03/07/2024 simvastatin (Zocor) 10 mg tablet Take 10 mg by mouth at bedtime. 03/07/2024 timolol (Betimol) 0.5 % ophthalmic solution Administer 1 drop into both eyes two times daily. 03/07/2024 Xarelto 20 mg tablet TAKE 1 TABLET EVERY EVENING WITH FOOD 90 tablet 3 03/07/2024 Current Medications: Scheduled Meds: [Held by provider] atorvastatin, 10 mg, oral, Nightly [Held by provider] bumetanide, 1 mg, intravenous, BID colchicine, 0.6 mg, oral, BID dilTIAZem CD, 240 mg, oral, Daily ferric gluconate (Ferrlecit) 125 mg in sodium chloride 0.9 % 100 mL IVPB, (more content not included)... [facility] 03-13-2024 Note Satisfactory for soraya roche. Examination of the ThinPrep slide and cell block reveals abundant acute inflammation and rare mesothelial cells. [facility] Comment on above: Performed By: #### L [id number] #### [facility] ([facility]) [address] [place] [address] 03-13-2024 Note Patient: Karen chowdhury Procedure Information Date/Time: 03/13/24 1100 Procedures: Pericardiocentesis Right heart cath Left heart cath Location: [facility]PER[facility]OR HISTOLOGY 2 B[address] / [facility] (Cath) Providers: Xander Brian MD Clinical information reviewed: Allergies Meds Physical Exam Airway Mallampati: II TM distance: >3 FB Neck ROM: full Cardiovascular Rhythm: regular Rate: normal Dental Pulmonary Breath sounds clear to auscultation Abdominal Abdomen: soft Bowel sounds: normal Anesthesia Plan ASA 3 other (Conscious ) Anesthetic plan and risks discussed with patient. Use of blood products discussed with patient who consented to blood products. Plan discussed with attending. Additional Equipment Requests [facility] 03-13-2024 Note Attestation signed by Tiera Heaton MD at 03/13/2024 3:47 PM GC: I saw this patient. I personally was physically present for the critical/jessica portions that determines the level of service. I was directly involved in the management and treatment plan of the patient. I reviewed fellow Dr Munoz 's note and agree with the documentation Given bloody pericardial effusion, hold anticoagulation. Aspirate drain every 4-6 hours until less than 25 mL are aspirated over a 24-hour period. Follow-up results of pericardial fluid analysis Tiera Heaton MD, MPH, [facility], [facility], [facility] Interventional Cardiology Pager Email: [email or web address] Cardiology Progress Note Reason for follow up: atrial fibrillation, Pericardial effusion, acute HFpEF Subjective Subjective: Repeat echo was done today morning. Patient was seen and examined today. She reports shortness of breath, worse with exertion. No chest pain, no N/V. Objective Objective: Patient Vitals for the past 24 hrs: BP Temp Temp src Pulse Resp SpO2 Weight 03/13/24 0832 102/66 36.3 ???C (97.4 ???F) Temporal 89 18 94 % -- 03/13/24 0551 -- -- -- -- -- -- 65.2 kg (143 lb 12.8 oz) 03/13/24 0335 105/71 36.5 ???C (97.7 ???F) Temporal 100 24 93 % -- 03/13/24 0320 -- -- -- 82 -- -- -- 03/12/24 2355 111/67 36.7 ???C (98 ???F) Temporal 88 20 92 % -- 03/12/241999 111/65 -- Temporal 104 22 97 % -- 03/12/24 1729 125/67 -- -- 101 23 97 % -- 03/12/24 1300 101/74 -- Temporal 96 20 97 % -- Physical Examination: GENERAL: AOx3, in no acute distress. HEAD: Atraumatic, normocephalic. EYES: JACKIE, EOMI. NECK: No JVD present. CARDIAC: RRR. No murmur, rubs, or gallops. RESPIRATORY: CTAB, no increased effort of breathing. ABDOMEN: Soft, nontender, nondistended. EXTREMITIES: No lower extremity edema, peripheral pulses are 2+ bilaterally. NEURO: No focal deficits Relevant Lab Results Encounter Date: 03/08/24 ECG 12 lead Result Value Ventricular Rate 103 QRS DURATION 146 QT Interval 394 QTC CALCULATION(BAZETT) 516 R-[place] 62 T Wave [place] -23 Impression Atrial fibrillation with rapid ventricular response with frequent Premature ventricular complexes Right bundle branch block Abnormal ECG When compared with ECG of 14-MAY-2022 10:29, Atrial fibrillation has replaced Atrial-paced rhythm Vent. rate has increased BY 42 BPM Confirmed by Harshad FORMAN, L.S. (2) on 03/09/2024 2:01:00 PM Lab Results Component Value Date TROPONINI 0.01 03/09/2024 Limited Echo (TTE) w/wo Limited Doppler, Color Flow, Imaging Agent, Strain, 3D, Bubble Study Result Date: 03/12/2024 1 1 [facility] Heart Station [address] [place] [address] [phone] (fax) Echocardiogram-[facility] Name: KAREN GIFFORD Study Date: 03/12/2024 01:51 PM B/P: 101 mmHg/74 mmHg HR: Date of : 1935 Location: [facility] Height: 67 in. Age: 88 year(s) Patient Room: 3124 Weight: 143 lb. Gender: Female Patient Status: InPt BSA: 1.75 m2 Indication: Pericardial Effusion Examination: Limited Echo/Limited Doppler Image Quality: Fair Patient Consent: Procedure explained to patient Conclusions Left Ventricle: The left ventricle appears normal in size. Global left ventricular systolic function is normal. The EF is 55 % visually. Left ventricular wall thickness is increased. No regional wall motion abnormality. Right Ventricle: The right ventricle appears normal in size. Right ventricular systolic function appears reduced. Left Atrium: The left atrium appears enlarged. Pericardium: There is a large 2.4 cm posterior pericardial effusion. The anterior pericardial effusion measures 1.97 cm. The effusion is large with organized thrombus and pericardial thickening. The MV and TV inflow doppler signal is suggestive of tamponade but no RV diastolic collapse, clinical correlation is requiredPrevious echo on 03/09/24 showed a moderate (2.0 cm) anterior and large (3.85 cm) posterior pericardial effusion. Pericardial thickening and organized clotting noted. Measurements Left Ventricle Label Value Normal Value LVEF visual 55 % Tricuspid Valve Label Value Normal Value TR Vmax 2.84 m/s Aorta Label Value Normal Value AoRoot, 2D 2.6 cm (1.4cm - 3.8cm) Valvular Assessment LVOT 0.7 - 1.1 m/sec Aortic Valve 1.0 - 1.7 m/sec Mitral Valve 0.6 - 1.3 m/sec Tricuspid Valve 0.3 - 0.7 m/sec Pulmonic Valve 0.6 - 0.9 m/sec Regurgitation Trivial Moderate Stenosis No Findings Left Ventricle: The left ventricle appears normal in size. Global left ventricular systolic function is normal. The EF is 55 % visually. Left ventricular wall thickness is increased. No regional wall motion abnormality. Right Ventricle: The right ventricle appears nor (more content not included)... [facility] 03-12-2024 Note Hospital Medicine Daily Progress Note - 03/12/2024 1:26 PM; Room: [address] [place] [address] Admission: 03/08/2024 4:27 PM; Length of stay: 4 days THE HOSPITALIST TEAM PREFERS TO USE [employer] FOR COMMUNICATION 7AM-7PM. IF I DO NOT RESPOND WITHIN 15 MINUTES, PLEASE PAGE ME/CALL THROUGH THE ANTIQUE AUTOMOBILES REPAIRER. FROM 7PM-7AM, PLEASE PAGE [phone](COVR) Code Status: DNR CC-A Barriers to Discharge: Echocardiogram on Tuesday, plan for thoracentesis Expected Discharge Date: 03/12/2024 Discharge Destination: home Overview Patient is seen for evaluation and management of progressive shortness of breath. Karen Gifford is an 88 y.o. female , where she presented with progressive shortness of breath both at rest and worse with exertion for 1 week. Patient denied any fever/chills, chest pain, cough but reported nausea without vomiting. She is undergoing workup for ovarian cancer. Patient was seen outpatient by her PCP who performed x-ray as an outpatient which showed no acute pathology and patient was started on oral antibiotics empirically for possible pneumonia. COVID test was negative at home. PFTs done at [facility] on 01/19/2023 showed restrictive pattern with FEV1 FEC ratio was normal at 85% of FVC was mildly reduced at 70% and FEV1 C was normal at 80% no significant change with bronchodilators and diffusion capacity was 45% when corrected with hemoglobin of 10.8. Patient has history of chronic atrial fibrillation s/p permanent pacemaker for sinus node dysfunction following DC cardioversion. Last echocardiogram performed on 02/22/2023 showed normal LVEF 62%, mild concentric LVH, severely dilated left atrium and severely dilated right atrium. Patient was started on GDMT for heart failure with preserved ejection fraction but Farxiga was discontinued due to frequent UTIs. EKG performed at [facility] showed atrial fibrillation, first-degree AV block. Subjective Patient was seen and examined at bedside this morning. She was alert awake and oriented. She denied any chest pain, shortness of breath, abdominal pain. Physical Exam Visit Vitals BP 101/74 (BP Location: Right arm, Patient Position: Sitting) Pulse 96 Temp 36.7 ???C (98.1 ???F) (Temporal) Resp 20 Intake/Output Summary (Last 24 hours) at 03/12/2024 1326 Last data filed at 03/12/2024 1140 Gross per 24 hour Intake 1570 ml Output 2850 ml Net -1280 ml Physical Exam Constitutional: Appearance: Normal appearance. HENT: Mouth/Throat: Mouth: Mucous membranes are moist. Cardiovascular: Rate and Rhythm: Normal rate and regular rhythm. Pulses: Normal pulses. Heart sounds: Normal heart sounds. Pulmonary: Effort: Pulmonary effort is normal. Breath sounds: Normal breath sounds. Abdominal: General: Abdomen is flat. Palpations: Abdomen is soft. Musculoskeletal: General: Normal range of motion. Skin: General: Skin is warm. Neurological: General: No focal deficit present. Mental Status: She is alert and oriented to person, place, and time. Estimated body mass index is 22.49 kg/m??? as calculated from the following: Height as of this encounter: 1.702 m (5' 7 ). Weight as of this encounter: 65.1 kg (143 lb 9.6 oz). Active Inpatient Problems Principal Problem: Pericardial effusion Assessment and Plan Karen Gifford is an 88 y.o. female presented with progressive shortness of breath. Outside hospital CT chest showed large pericardial effusion. Patient is started on anti-inflammatory medications and diuresis, repeat echocardiogram to be performed on Tuesday. Large pericardial effusion likely viral pericarditis Bilateral pleural effusions Echocardiogram performed on 03/08/2024 shows moderate anterior and large posterior pericardial effusion, pericardial thickening and organized clotting noted. Continue colchicine Repeat echocardiogram pending from today. 5.1 cm right adnexal cyst, being worked up for ovarian cancer outpatient Cancer screening: Mammogram performed at age 77, unremarkable. Colonoscopy performed 12 years ago, showed benign polyp. Oncology requesting to perform thoracentesis as patient does not have a tissue diagnosis yet. Elevated liver enzymes (improving) Continue to monitor Hold atorvastatin. CT abdomen and pelvis showed heterogeneous appearance of liver without focal mass, 5.9 cm simple cystic structure representing adnexal cyst. No evidence of metastasis. Heart failure with preserved ejection fraction Severe tricuspid regurgitation BNP 1085 Continue Bumex 1 mg daily, monitor vitals closely. Chronic atrial fibrillation s/p dual-chamber PPM, on chronic anticoagulation Continue Cardizem to 40 mg daily. Continue metoprolol tartrate 50 mg 3 times daily Start patient on digoxin as resting heart rate has been above 120. Hold Xarelto for thoracentesis. Device interrogation Obstructive sleep apnea Gastroesophageal reflux disease Continue pantoprazole Hypothyroidism T (more content not included)... [facility] 03-12-2024 Note [facility] CARDIOLOGY INPAT IENT PROGRESS NOTE Reason for follow up: atrial fibrillation, Pericardial effusion, acute HFpEF Subjective Eval this morning at bedside, can lay with HOB at 15 degrees comfortably, no O2 needs, and says feeling much better. Having extra Bms from medication but no N/V. Not dizzy with position change, occasionally aware of fast heart beats. Up to BR with stable URIBE, no dizziness or CP. Discussed findings to date, and await FU LTD echo due this afternoon. OP cardiology FU has been with Dr. Jay Guerra of [facility] [place], [place], She is a retired [employer]. Tele: Afib with V-pacing, rates ave 100 but up to 110-120/min. ALLERGIES Allergies Allergen Reactions Farxiga [Dapagliflozin] Other Recurrent UTI Isosorbide Other Dry eyes Lisinopril Cough Morphine Other vomit Procardia [Nifedipine] Vasotec [Enalapril Maleate] CURRENT MEDS [Held by provider] atorvastatin, 10 mg, oral, Nightly bumetanide, 1 mg, intravenous, BID colchicine, 0.6 mg, oral, BID digoxin, 250 mcg, intravenous, q6h dilTIAZem CD, 240 mg, oral, Daily ferric gluconate (Ferrlecit) 125 mg in sodium chloride 0.9 % 100 mL IVPB, 125 mg, intravenous, Daily [Held by provider] hydrALAZINE, 25 mg, oral, TID insulin lispro, 0-5 Units, subcutaneous, q6h SEGUNDO latanoprost, 1 drop, Both Eyes, Nightly liothyronine, 10 mcg, oral, Daily metoprolol tartrate, 50 mg, oral, TID pantoprazole, 40 mg, oral, Daily [Held by provider] rivaroxaban, 20 mg, oral, Daily with evening meal timolol, 1 drop, Both Eyes, BID Oxygen Therapy, PRN medications: acetaminophen, glucose OR dextrose 50 % in water (D50W), melatonin, ondansetron ODT OR ondansetron, Oxygen Therapy, sennosides-docusate sodium, traMADol, traMADol Objective Patient Vitals for the past 24 hrs: BP Temp Temp src Pulse Resp SpO2 Weight 03/12/24 1300 101/74 -- Temporal 96 20 97 % -- 03/12/24 0849 90/55 36.7 ???C (98.1 ???F) Temporal 109 (!) 28 96 % -- 03/12/24 0600 -- -- -- -- -- -- 65.1 kg (143 lb 9.6 oz) 03/12/24 0500 -- -- -- -- -- -- 65.1 kg (143 lb 9.6 oz) 03/12/24 0455 107/68 36.5 ???C (97.7 ???F) Temporal 105 21 94 % -- 03/12/24 0025 108/57 36.3 ???C (97.3 ???F) Temporal 103 26 92 % -- 03/11/24 2000 108/70 36.2 ???C (97.2 ???F) Temporal 109 25 95 % -- 03/11/24 1646 -- -- -- 88 19 96 % -- 03/11/24 1645 98/60 -- -- -- -- -- -- 03/11/24 1519 104/58 36.6 ???C (97.9 ???F) Temporal 82 (!) 27 91 % -- BP 101/74 (BP Location: Right arm, Patient Position: Sitting) Pulse 96 Temp 36.7 ???C (98.1 ???F) (Temporal) Resp 20 Ht 1.702 m (5' 7 ) Comment: per pt Wt 65.1 kg (143 lb 9.6 oz) SpO2 97% BMI 22.49 kg/m??? Wt Readings from Last 3 Encounters: 03/12/24 65.1 kg (143 lb 9.6 oz) 06/03/23 70.8 kg (156 lb) 05/06/23 70.3 kg (155 lb) General: Awake, alert, appropriate mood / affect, NAD Eyes: anicteric sclera. Non-injected conjunctiva. No xanthelasmas Neck: No elevated JVP. No carotid bruit Pulm: Breath sounds minimally diminished right base, otherwise clear to ascultation bilaterally with no wheeze, crackles or rhonchi Cards: HR irreg irreg, NL S1, S2. No S3 or S4 gallop. Murmur: none. No pulsus paradoxus finidngs. Abd: Soft, Nontender, physiologic bowel sounds are present Extr: Lower extremity edema: none. DP pulses present bilaterally Skin: warm, dry, well perfused Neuro: A&Ox3, No gross deficits Lab Results Component Value Date NA 133 (L) 03/12/2024 K 3.6 03/12/2024 CL 94 (L) 03/12/2024 ANIONGAP 10 03/12/2024 BUN 23 03/12/2024 CREATININE 0.75 03/12/2024 CALCIUM 8.3 (L) 03/12/2024 MG 1.8 (L) 03/08/2024 PHOS 4.5 03/08/2024 Lab Results Component Value Date BILITOT 0.5 03/12/2024 ALKPHOS 67 03/12/2024 AST 43 (H) 03/12/2024 ALT 138 (H) 03/12/2024 PROT 6.3 03/12/2024 ALBUMIN 3.0 (L) 03/12/2024 No results found for: CHOLESTEROL , CHOLESTEROL TOTAL , TRIGLYCERIDES , HDL , LDL CHOLESTEROL , LDL DIRECT , LDL CALC Lab Results Component Value Date BNP 889 (H) 03/09/2024 Lab Results Component Value Date TSH 1.31 03/09/2024 No results found for: DIGOXIN LVL Lab Results Component Value Date HGBA1C 5.9 03/09/2024 Lab Results Component Value Date BNP 889 (H) 03/09/2024 BNP 1,085 (H) 03/08/2024 Lab Results Component Value Date WBC 9.10 03/12/2024 RBC 3.86 03/12/2024 HGB 8.6 (L) 03/12/2024 HCT 29.4 (L) 03/12/2024 MCV 76.2 (L) 03/12/2024 MCH 22.3 (L) 03/12/2024 MCHC 29.3 (L) 03/12/2024 RDW 18.3 (H) 03/12/2024 NEUTOPHILPCT 59.9 03/12/2024 LYMPHOPCT 24.5 03/12/2024 MONOPCT 11.1 03/12/2024 EOSPCT 3.1 03/12/2024 BASOPCT 0.5 03/12/2024 NEUTROABS 5.45 03/12/2024 LYMPHSABS 2.23 03/12/2024 MONOSABS 1.01 (H) 03/12/2024 EOSABS 0.28 03/12/2024 BASOSABS 0.05 03/12/2024 PLT 363 03/12/2024 NRBC 0.0 03/12/2024 No X-ray results found for the past 24 hours CV Testing: Encounter Date: 03/08/24 ECG 12 lead Res (more content not included)... [facility] 03-12-2024 Note Pt admitted to [facility] for pericardial effusion; hx of chronic afib s/p PPM. Pt has pending echo; echo from 03/09/24 estimated LVEF 60-65%, which does not qualify pt for cardiac rehab (CR) therapy with HF diagnosis per CMS eligibility criteria. I will watch for updates and follow up with pt, if appropriate. FARSHAD TonyN svp group director Outpatient Coordinator Cardiopulmonary Rehab [facility] 03-12-2024 Note Attestation signed by Paula Dean MD at 03/12/2024 8:50 PM (Updated) The patient was seen and examined with the fellow Dr. Donovan. The fellow's note was reviewed and findings were confirmed. Assessment and plan discussed during rounds with the fellow and delineated below with the following additions/modifications. Chest images were reviewed, B pleural effusion >> R and pericardial effusion. Rivaroxaban was discontinued today, so we will plan to do the thoracentesis within 48 hrs, most likely. Close monitoring for sign and symptoms of cardiac tamponade. Pulmonology Progress Patient : Karen Gifford; 88 y.o. Location: 3124/3124-01 Attending: Jami Su MD Admit Date: 03/08/2024 Hospital Day: 4 Reason for Consult: Asked by Dr Jami Su MD to see for dyspnea, pleural effusion. Subjective: Patient was seen and examined at bedside this morning -Patient resting on room air, NAD, offers no complaint - Cardiology planning to repeat echo this afternoon Assessment: Pericardial effusion with bilateral pleural effusion Acute on chronic heart failure with preserved ejection fraction Pulmonary hypertension on echo Sick sinus syndrome s/p PPM placement Chronic afib on xarelto LANEY not on CPAP Hypertension Hx of COPD Plan: - Patient breathing comfortably on room air. - No plans for pericardiocentesis by cardiology, with plan to continue diuresis and repeat echo this morning -No plan for thoracentesis as of now, patient is on room air, asymptomatic, already on Xarelto, and fluid likely from heart failure which should be improved with diuresis - If cardiology planning pericardiocentesis, will recommend pericardial fluid analysis as pt's pleural effusion likely from the same source. Will order cultures, cell count, cytology, glucose, LDH, - Rest of care per primary team -Pulmonary team will respectfully sign off, please call for any question or concern Past History/Allergies?Social History: Past Medical History: Diagnosis Date A-fib ([facility]) CVA (cerebral vascular accident) ([facility]) GERD (gastroesophageal reflux disease) Hyperlipidemia Hypertension LANEY (obstructive sleep apnea) Osteoarthritis Allergies Allergen Reactions Isosorbide Other Dry eyes Lisinopril Cough Morphine Other vomit Procardia [Nifedipine] Vasotec [Enalapril Maleate] Social History Socioeconomic History Marital status: Spouse name: Not on file Number of children: Not on file Years of education: Not on file Highest education level: Not on file Occupational History Not on file Tobacco Use Smoking status: Never Smokeless tobacco: Not on file Substance and Sexual Activity Alcohol use: Not on file Drug use: Not on file Sexual activity: Not on file Other Topics Concern Not on file Social History Narrative Not on file Social Determinants of Health Financial Resource Strain: Low Risk (03/08/2024) Overall Financial Resource Strain (CARDIA) Difficulty of Paying Living Expenses: Not hard at all Food Insecurity: No Food Insecurity (03/08/2024) Hunger Vital Sign Worried About Running Out of Food in the Last Year: Never true Ran Out of Food in the Last Year: Not on file Transportation Needs: No Transportation Needs (03/08/2024) Transportation Lack of Transportation (Medical): No Lack of Transportation (Non-Medical): Not on file Physical Activity: Not on file Stress: Not on file Social Connections: Not on file Intimate Partner Violence: Unknown (03/08/2024) Humiliation, Afraid, Rape, and Kick questionnaire Fear of Current or Ex-Partner: No Emotionally Abused: Not on file Physically Abused: Not on file Sexually Abused: Not on file Housing Stability: Low Risk (03/08/2024) Housing Stability Vital Sign Unable to Pay for Housing in the Last Year: Not on file Number of Places Lived in the Last Year: Not on file Unstable Housing in the Last Year: No Family History: No family history on file. Outpatient Medications: Medications Prior to Admission Medication Sig Dispense Refill Last Dose atenolol (Tenormin) 100 mg tablet Take 100 mg by mouth in the morning and at bedtime. 03/07/2024 bumetanide (Bumex) 1 mg tablet Take 1 tablet by mouth in the morning. 03/07/2024 dilTIAZem (Cardizem) 30 mg immediate release tablet Take 1 tablet (30 mg) by mouth in the morning and at bedtime. 60 tablet 0 dilTIAZem CD (Cardizem CD) 300 mg 24 hr capsule Take 1 capsule (300 mg) by mouth in the morning. (Patient taking differently: Take 300 mg by mouth before lunch.) 90 capsule 3 03/07/2024 hydrALAZINE (Apresoline) 100 mg tablet Take 100 mg by mouth in the morning, at noon, and at bedtime. 03/07/2024 latanoprost (Xalatan) 0.005 % ophthalmic solution Administer 1 drop into both (more content not included)... [facility] 03-11-2024 Note Subjective Mrs. Gifford states that she is feeling better today. Had questions about liver enzyme tests and also possible results from the abdominal CT scan that was performed today. Objective Patient Vitals for the past 24 hrs: BP Temp Temp src Pulse Resp SpO2 Weight 03/11/24 1233 105/62 36.7 ???C (98.1 ???F) Temporal 100 23 97 % -- 03/11/24 0757 127/64 36.7 ???C (98 ???F) Temporal 106 16 (!) 89 % -- 03/11/24 0600 -- -- -- -- -- -- 65.2 kg (143 lb 12.8 oz) 03/11/24 0400 117/62 36.5 ???C (97.7 ???F) Temporal 86 17 94 % -- 03/11/24 0000 116/58 36.4 ???C (97.5 ???F) Temporal 76 19 93 % -- 03/10/24 2110 118/57 36.4 ???C (97.5 ???F) Temporal 97 19 90 % -- 03/10/24 1641 101/59 36.6 ???C (97.9 ???F) Temporal 81 (!) 29 95 % -- Physical Exam Constitutional: General: She is not in acute distress. Appearance: Normal appearance. She is normal weight. She is not ill-appearing. HENT: Head: Normocephalic. Cardiovascular: Rate and Rhythm: Normal rate. Rhythm irregular. Pulses: Carotid pulses are 2+ on the right side and 2+ on the left side. Heart sounds: No murmur heard. No friction rub. No gallop. Comments: JVP normal approximately 5 cm Musculoskeletal: Cervical back: Normal range of motion. Right lower leg: No edema. Left lower leg: No edema. Neurological: Mental Status: She is alert. Lab Results Component Value Date NA 133 (L) 03/11/2024 K 3.0 (L) 03/11/2024 CL 92 (L) 03/11/2024 ANIONGAP 11 03/11/2024 BUN 26 (H) 03/11/2024 CREATININE 0.74 03/11/2024 CALCIUM 8.2 (L) 03/11/2024 MG 1.8 (L) 03/08/2024 PHOS 4.5 03/08/2024 Lab Results Component Value Date BILITOT 0.4 03/11/2024 ALKPHOS 68 03/11/2024 AST 74 (H) 03/11/2024 ALT 179 (H) 03/11/2024 PROT 6.3 03/11/2024 ALBUMIN 3.0 (L) 03/11/2024 Lab Results Component Value Date WBC 9.50 03/11/2024 RBC 3.86 03/11/2024 HGB 8.6 (L) 03/11/2024 HCT 29.4 (L) 03/11/2024 MCV 73.6 (L) 03/11/2024 MCH 22.0 (L) 03/11/2024 MCHC 29.9 (L) 03/11/2024 RDW 18.2 (H) 03/11/2024 NEUTOPHILPCT 63.2 03/11/2024 LYMPHOPCT 19.1 (L) 03/11/2024 MONOPCT 13.2 (H) 03/11/2024 EOSPCT 3.5 03/11/2024 BASOPCT 0.3 03/11/2024 NEUTROABS 6.01 03/11/2024 LYMPHSABS 1.81 03/11/2024 MONOSABS 1.25 (H) 03/11/2024 EOSABS 0.33 03/11/2024 BASOSABS 0.03 03/11/2024 PLT 317 03/11/2024 NRBC 0.0 03/11/2024 CT abdomen pelvis w IV contrast Result Date: 03/11/2024 1. Mildly heterogenous appearance of the liver without focal mass identified. Correlate with liver function tests. 2. Large pericardial effusion and bilateral pleural effusions. 3. 5.9 cm simple cystic structure deep within the pelvis possibly represents a residual adnexal cyst given the reported history. Correlate with outside priors to assess for stability. 4. Sclerotic appearance of multiple vertebral bodies is favored to be degenerative in etiology. Electronically signed: Avtar Gil MD. Encounter Date: 03/08/24 ECG 12 lead Result Value Ventricular Rate 103 QRS DURATION 146 QT Interval 394 QTC CALCULATION(BAZETT) 516 R-[place] 62 T Wave [place] -23 Impression Atrial fibrillation with rapid ventricular response with frequent Premature ventricular complexes Right bundle branch block Abnormal ECG When compared with ECG of 14-MAY-2022 10:29, Atrial fibrillation has replaced Atrial-paced rhythm Vent. rate has increased BY 42 BPM Confirmed by Harshad FORMAN, L.S. (2) on 03/09/2024 2:01:00 PM Assessment/Plan Principal Problem: Pericardial effusion Mrs. Gifford appears clinically better with a reduction in the JVP to normal from slightly elevated yesterday. We are planning a follow up echocardiogram tomorrow to gauge the size of the pericardial effusion. If it is less and she is symptomatically well, can discharge home for follow up. If effusion bigger or evidence for tamponade physiology, will recommend pericardiocentesis. I have discussed with she and her daughter the rationale, expected risks, and discomfort associated pericardial drainage and they understand. [facility] 03-11-2024 Note Hospital Medicine Daily Progress Note - 03/11/2024 9:01 AM; Room: [address] [place] [address] Admission: 03/08/2024 4:27 PM; Length of stay: 3 days THE HOSPITALIST TEAM PREFERS TO USE [employer] FOR COMMUNICATION 7AM-7PM. IF I DO NOT RESPOND WITHIN 15 MINUTES, PLEASE PAGE ME/CALL THROUGH THE ANTIQUE AUTOMOBILES REPAIRER. FROM 7PM-7AM, PLEASE PAGE [phone](COVR) Code Status: DNR CC-A Barriers to Discharge: Echocardiogram on Tuesday, anti-inflammatory medications for pericardial effusion Expected Discharge Date: 03/12/2024 Discharge Destination: home Overview Patient is seen for evaluation and management of progressive shortness of breath. Karen Gifford is an 88 y.o. female , where she presented with progressive shortness of breath both at rest and worse with exertion for 1 week. Patient denied any fever/chills, chest pain, cough but reported nausea without vomiting. She is undergoing workup for ovarian cancer. Patient was seen outpatient by her PCP who performed x-ray as an outpatient which showed no acute pathology and patient was started on oral antibiotics empirically for possible pneumonia. COVID test was negative at home. PFTs done at [facility] on 01/19/2023 showed restrictive pattern with FEV1 FEC ratio was normal at 85% of FVC was mildly reduced at 70% and FEV1 C was normal at 80% no significant change with bronchodilators and diffusion capacity was 45% when corrected with hemoglobin of 10.8. Patient has history of chronic atrial fibrillation s/p permanent pacemaker for sinus node dysfunction following DC cardioversion. Last echocardiogram performed on 02/22/2023 showed normal LVEF 62%, mild concentric LVH, severely dilated left atrium and severely dilated right atrium. Patient was started on GDMT for heart failure with preserved ejection fraction but Farxiga was discontinued due to frequent UTIs. EKG performed at [facility] showed atrial fibrillation, first-degree AV block. Subjective Patient was seen and examined at bedside this morning. She was alert awake and oriented. She denied any chest pain, shortness of breath, abdominal pain. Physical Exam Visit Vitals BP 127/64 Pulse 106 Temp 36.7 ???C (98 ???F) (Temporal) Resp 16 Intake/Output Summary (Last 24 hours) at 03/11/2024 0901 Last data filed at 03/11/2024 0730 Gross per 24 hour Intake 1185 ml Output 2700 ml Net -1515 ml Physical Exam Constitutional: Appearance: Normal appearance. HENT: Mouth/Throat: Mouth: Mucous membranes are moist. Cardiovascular: Rate and Rhythm: Normal rate and regular rhythm. Pulses: Normal pulses. Heart sounds: Normal heart sounds. Pulmonary: Effort: Pulmonary effort is normal. Breath sounds: Normal breath sounds. Abdominal: General: Abdomen is flat. Palpations: Abdomen is soft. Musculoskeletal: General: Normal range of motion. Skin: General: Skin is warm. Neurological: General: No focal deficit present. Mental Status: She is alert and oriented to person, place, and time. Estimated body mass index is 22.52 kg/m??? as calculated from the following: Height as of this encounter: 1.702 m (5' 7 ). Weight as of this encounter: 65.2 kg (143 lb 12.8 oz). Active Inpatient Problems Principal Problem: Pericardial effusion Assessment and Plan Karen Gifford is an 88 y.o. female presented with progressive shortness of breath. Outside hospital CT chest showed large pericardial effusion. Patient is started on anti-inflammatory medications and diuresis, repeat echocardiogram to be performed on Tuesday. Progressive dyspnea Large pericardial effusion Bilateral pleural effusions Echocardiogram performed on 03/08/2024 shows moderate anterior and large posterior pericardial effusion, pericardial thickening and organized clotting noted. Continue colchicine Elevated liver enzymes Continue to monitor Hold atorvastatin. CT abdomen and pelvis showed heterogeneous appearance of liver without focal mass, 5.9 cm simple cystic structure representing adnexal cyst. No evidence of metastasis. Heart failure with preserved ejection fraction Severe tricuspid regurgitation BNP 1085 Continue Bumex 1 mg daily, monitor vitals closely. Chronic atrial fibrillation s/p dual-chamber PPM, on chronic anticoagulation Continue Cardizem to 40 mg daily. Continue metoprolol tartrate 50 mg 3 times daily Continue Xarelto Obstructive sleep apnea Gastroesophageal reflux disease Continue pantoprazole Hypothyroidism TSH 1.31 on 03/09/2024 Continue liothyronine Chronic kidney disease stage III A Hyponatremia 5.1 cm right adnexal cyst, being worked up for ovarian cancer outpatient Cancer screening: Mammogram performed at age 77, unremarkable. Colonoscopy performed 12 years ago, showed benign polyp. Iron deficiency anemia VTE Prophylaxis: Xarelto Scheduled Meds [Held by provider] atorvastatin, 10 mg, oral, Nightly bumetanide, 1 mg, intravenous, BID colchicine, 0.6 mg, (more content not included)... [facility] 03-10-2024 Note Attestation signed by Xander Brian MD at 03/10/2024 1:54 PM Mrs. Gifford was seen and examined by me. I agree with Dr. Pugh note above. I am somewhat concerned that her JVD is elevated at 6-7 cm this morning although she has no pulsus and is asymptomatic. Plan echo on Tuesday and would consider pericardiocentesis if neck veins increase, pulsus develops or echo worsens. Subjective No acute event overnight. Seen and examined at bedside in the AM. Undocked awake oriented. Denies any chest pain, shortness of breath, dizziness, or any other symptoms. Hemodynamically stable, pulses paradoxus negative. Objective Patient Vitals for the past 24 hrs: BP Temp Temp src Pulse Resp SpO2 Weight 03/10/24 0740 118/77 36.7 ???C (98.1 ???F) Temporal 84 18 93 % -- 03/10/24 0600 -- -- -- -- -- -- 66.6 kg (146 lb 12.8 oz) 03/10/24 0443 -- -- -- -- -- -- 66.6 kg (146 lb 12.8 oz) 03/10/24 0400 102/55 36.4 ???C (97.5 ???F) Temporal 87 12 95 % -- 03/10/24 0000 111/69 36.6 ???C (97.9 ???F) Temporal 86 22 97 % -- 03/09/24 2000 118/66 36.2 ???C (97.2 ???F) Temporal 80 20 96 % -- 03/09/24 1556 114/75 36.1 ???C (97 ???F) Temporal 92 22 (!) 89 % -- Physical Exam Constitutional: Appearance: Normal appearance. HENT: Head: Normocephalic and atraumatic. Mouth/Throat: Mouth: Mucous membranes are moist. Cardiovascular: Rate and Rhythm: Normal rate and regular rhythm. Pulses: Normal pulses. Heart sounds: Normal heart sounds. Elevated JVD Pulmonary: Effort: Pulmonary effort is normal. Breath sounds: Normal breath sounds. Abdominal: General: Abdomen is flat. Palpations: Abdomen is soft. Neurological: General: No focal deficit present. Mental Status: She is alert and oriented to person, place, and time. Lab Results Component Value Date NA 134 (L) 03/10/2024 K 3.9 03/10/2024 CL 94 (L) 03/10/2024 ANIONGAP 9 03/10/2024 BUN 34 (H) 03/10/2024 CREATININE 0.93 03/10/2024 CALCIUM 8.6 03/10/2024 MG 1.8 (L) 03/08/2024 PHOS 4.5 03/08/2024 Lab Results Component Value Date BILITOT 0.3 03/10/2024 ALKPHOS 80 03/10/2024 AST 88 (H) 03/10/2024 ALT 208 (H) 03/10/2024 PROT 6.6 03/10/2024 ALBUMIN 3.1 (L) 03/10/2024 Lab Results Component Value Date WBC 10.88 (H) 03/10/2024 RBC 3.67 (L) 03/10/2024 HGB 8.2 (L) 03/10/2024 HCT 27.7 (L) 03/10/2024 MCV 75.5 (L) 03/10/2024 MCH 22.3 (L) 03/10/2024 MCHC 29.6 (L) 03/10/2024 RDW 18.3 (H) 03/10/2024 NEUTOPHILPCT 71.2 03/10/2024 LYMPHOPCT 14.4 (L) 03/10/2024 MONOPCT 12.4 (H) 03/10/2024 EOSPCT 1.2 03/10/2024 BASOPCT 0.1 03/10/2024 NEUTROABS 7.74 (H) 03/10/2024 LYMPHSABS 1.57 03/10/2024 MONOSABS 1.35 (H) 03/10/2024 EOSABS 0.13 03/10/2024 BASOSABS 0.01 03/10/2024 PLT 356 03/10/2024 NRBC 0.0 03/10/2024 No X-ray results found for the past 24 hoursNo MRI results found for the past [address] results found for the past 24 hours Encounter Date: 03/08/24 ECG 12 lead Result Value Ventricular Rate 103 QRS DURATION 146 QT Interval 394 QTC CALCULATION(BAZETT) 516 R-Rock[place] 62 T Wave [place] -23 Impression Atrial fibrillation with rapid ventricular response with frequent Premature ventricular complexes Right bundle branch block Abnormal ECG When compared with ECG of 14-MAY-2022 10:29, Atrial fibrillation has replaced Atrial-paced rhythm Vent. rate has increased BY 42 BPM Confirmed by Harshad FORMAN, L.S. (2) on 03/09/2024 2:01:00 PM Relevant Lab Results Encounter Date: 03/08/24 ECG 12 lead Result Value Ventricular Rate 103 QRS DURATION 146 QT Interval 394 QTC CALCULATION(BAZETT) 516 R-[place] 62 T Wave [place] -23 Impression Atrial fibrillation with rapid ventricular response with frequent Premature ventricular complexes Right bundle branch block Abnormal ECG When compared with ECG of 14-MAY-2022 10:29, Atrial fibrillation has replaced Atrial-paced rhythm Vent. rate has increased BY 42 BPM Confirmed by Harshad FORMAN, L.S. (2) on 03/09/2024 2:01:00 PM Complete Echo (TTE) w/wo Imaging Agent, Strain, 3D, Bubble Study Result Date: 03/09/2024 1 1 [facility] Heart Station [address] [place] [address] [phone] (fax) Echocardiogram-[facility] Name: KAREN GIFFORD Study Date: 03/09/2024 08:08 AM B/P: 105 mmHg/77 mmHg HR: 94 bpm Date of : 1935 Location: [facility] Height: 67 in. Age: 88 year(s) Patient Room: 3124 Weight: 151 lb. Gender: Female Patient Status: InPt BSA: 1.79 m2 Indication: Pericardial Effusion, ([facility] 03/08/24 mod-lg), Chronic atrial fibrillation, Pacemaker, Dyspnea on exertion Patient supine for pericardial effusion evaluation. Examination: Echocardiogram (Complete) Image Quality: Excellent Patient Consent: Proc (more content not included)... [facility] 03-10-2024 Note Attestation signed by Priscila Valerio MD at 03/11/2024 3:25 PM I reviewed the salient portions of the patient history. I have seen and examined the patient during rounds with the medical student/resident/fellow. I repeated the jessica components of the exam. Agree with the noted assessment and plan. Priscila Valerio MD [facility] Pulmonary interventional and Critical Care Medicine. Pulmonology Progress Patient : Karen Gifofrd; 88 y.o. Location: 3124/3124-01 Attending: Jami Su MD Admit Date: 03/08/2024 Hospital Day: 2 Reason for Consult: Asked by Dr Jami Su MD to see for dyspnea, pleural effusion. Subjective: Patient was seen and evaluated at bedside. Patient denied fever or chills, cough or sore throat, nausea or vomiting, chest pain or breathing difficulty, abdominal pain, or any urinary symptoms. Echo: Left Ventricle: The left ventricle is normal size. Global left ventricular systolic function is normal. EF range is estimated at 60 % -65 %. Left ventricular wall thickness is normal. No regional wall motion abnormality. Unable to assess diastolic dysfunction. Right Ventricle: There appears to be right ventricular free wall diastolic collapse by M-Mode. The right ventricle is normal in size. Normal right ventricular systolic function. A pacemaker wire is seen in the right ventricle. Doppler studies suggest moderately elevated right sided pressures (elevated pulmonary pressure). Left Atrium: The left atrium is moderately enlarged. Right Atrium: No right atrial collapse. The right atrium is mildly enlarged. Mitral Valve: Mild mitral regurgitation. Aortic Valve: Mild aortic valve regurgitation. Tricuspid Valve: Severe tricuspid regurgitation. Pericardium: There is moderate (2.0 cm) anterior and large (3.85 cm) posterior pericardial effusion. Pericardial thickening and organized clotting noted. Assessment: Pericardial effusion with bilateral pleural effusion Acute on chronic heart failure with preserved ejection fraction Pulmonary hypertension on echo Sick sinus syndrome s/p PPM placement Chronic afib on xarelto LANEY not on CPAP Hypertension Hx of COPD Plan: - Patient breathing comfortably on room air. - No plans for pericardiocentesis by cardiology - Will consider thoracentesis if pt does not show improvement on CXR in 2 days for diagnostic/therapeutic purposes - If cardiology planning pericardiocentesis, will recommend pericardial fluid analysis as pt's pleural effusion likely from the same source. Will order cultures, cell count, cytology, glucose, LDH, - Rest of care per primary team - Will continue to follow pt Past History/Allergies?Social History: Past Medical History: Diagnosis Date A-fib ([facility]) CVA (cerebral vascular accident) ([facility]) GERD (gastroesophageal reflux disease) Hyperlipidemia Hypertension LANEY (obstructive sleep apnea) Osteoarthritis Allergies Allergen Reactions Isosorbide Other Dry eyes Lisinopril Cough Morphine Other vomit Procardia [Nifedipine] Vasotec [Enalapril Maleate] Social History Socioeconomic History Marital status: Spouse name: Not on file Number of children: Not on file Years of education: Not on file Highest education level: Not on file Occupational History Not on file Tobacco Use Smoking status: Never Smokeless tobacco: Not on file Substance and Sexual Activity Alcohol use: Not on file Drug use: Not on file Sexual activity: Not on file Other Topics Concern Not on file Social History Narrative Not on file Social Determinants of Health Financial Resource Strain: Low Risk (03/08/2024) Overall Financial Resource Strain (CARDIA) Difficulty of Paying Living Expenses: Not hard at all Food Insecurity: No Food Insecurity (03/08/2024) Hunger Vital Sign Worried About Running Out of Food in the Last Year: Never true Ran Out of Food in the Last Year: Not on file Transportation Needs: No Transportation Needs (03/08/2024) Transportation Lack of Transportation (Medical): No Lack of Transportation (Non-Medical): Not on file Physical Activity: Not on file Stress: Not on file Social Connections: Not on file Intimate Partner Violence: Unknown (03/08/2024) Humiliation, Afraid, Rape, and Kick questionnaire Fear of Current or Ex-Partner: No Emotionally Abused: Not on file Physically Abused: Not on file Sexually Abused: Not on file Housing Stability: Low Risk (03/08/2024) Housing Stability Vital Sign Unable to Pay for Housing in the Last Year: Not on file Number of Places Lived in the Last Year: Not on file Unstable Housing in the Last Year: No Family History: No family history on file. Outpatient Medications: Medications Prior to Admission Med (more content not included)... [facility] 03-10-2024 Note Hospital Medicine Daily Progress Note - 03/10/2024 7:39 AM; Room: [address] [place] [address] Admission: 03/08/2024 4:27 PM; Length of stay: 2 days THE HOSPITALIST TEAM PREFERS TO USE [email or web address] FOR COMMUNICATION 7AM-7PM. IF I DO NOT RESPOND WITHIN 15 MINUTES, PLEASE PAGE ME/CALL THROUGH THE ANTIQUE AUTOMOBILES REPAIRER. FROM 7PM-7AM, PLEASE PAGE [phone](COVR) Code Status: DNR CC-A Barriers to Discharge: Echocardiogram on Tuesday, anti-inflammatory medications for pericardial effusion Expected Discharge Date: 03/12/2024 Discharge Destination: home Overview Patient is seen for evaluation and management of progressive shortness of breath. Karen Gifford is an 88 y.o. female , where she presented with progressive shortness of breath both at rest and worse with exertion for 1 week. Patient denied any fever/chills, chest pain, cough but reported nausea without vomiting. She is undergoing workup for ovarian cancer. Patient was seen outpatient by her PCP who performed x-ray as an outpatient which showed no acute pathology and patient was started on oral antibiotics empirically for possible pneumonia. COVID test was negative at home. PFTs done at [facility] on 01/19/2023 showed restrictive pattern with FEV1 FEC ratio was normal at 85% of FVC was mildly reduced at 70% and FEV1 C was normal at 80% no significant change with bronchodilators and diffusion capacity was 45% when corrected with hemoglobin of 10.8. Patient has history of chronic atrial fibrillation s/p permanent pacemaker for sinus node dysfunction following DC cardioversion. Last echocardiogram performed on 02/22/2023 showed normal LVEF 62%, mild concentric LVH, severely dilated left atrium and severely dilated right atrium. Patient was started on GDMT for heart failure with preserved ejection fraction but Farxiga was discontinued due to frequent UTIs. EKG performed at [facility] showed atrial fibrillation, first-degree AV block. Chest x-ray showed Subjective Patient was seen and examined at bedside this morning. She was alert awake and oriented. She denied any chest pain, shortness of breath, abdominal pain. Physical Exam Visit Vitals BP 102/55 Pulse 87 Temp 36.4 ???C (97.5 ???F) (Temporal) Resp 12 Intake/Output Summary (Last 24 hours) at 03/10/2024 0739 Last data filed at 03/10/2024 0600 Gross per 24 hour Intake 240 ml Output 1550 ml Net -1310 ml Physical Exam Constitutional: Appearance: Normal appearance. HENT: Head: Normocephalic and atraumatic. Mouth/Throat: Mouth: Mucous membranes are moist. Cardiovascular: Rate and Rhythm: Normal rate and regular rhythm. Pulses: Normal pulses. Heart sounds: Normal heart sounds. Pulmonary: Effort: Pulmonary effort is normal. Breath sounds: Normal breath sounds. Abdominal: General: Abdomen is flat. Palpations: Abdomen is soft. Neurological: General: No focal deficit present. Mental Status: She is alert and oriented to person, place, and time. Estimated body mass index is 22.99 kg/m??? as calculated from the following: Height as of this encounter: 1.702 m (5' 7 ). Weight as of this encounter: 66.6 kg (146 lb 12.8 oz). Active Inpatient Problems Principal Problem: Pericardial effusion Assessment and Plan Karen Gifford is an 88 y.o. female presented with progressive shortness of breath. Outside hospital CT chest showed large pericardial effusion. Patient is started on anti-inflammatory medications and diuresis, repeat echocardiogram to be performed on Tuesday. Progressive dyspnea Large pericardial effusion Bilateral pleural effusions Echocardiogram performed on 03/08/2024 shows moderate anterior and large posterior pericardial effusion, pericardial thickening and organized clotting noted. Continue colchicine Elevated liver enzymes Continue to monitor Hold atorvastatin. Patient's previous records from October 2023 reviewed, patient had EGD performed due to upper abdominal pain which showed gastritis, she also had a CT abdomen performed which revealed right adnexal cyst. Ultrasound abdomen performed after that showed the same 5 cm cyst. On that admission in [place], patient's LFTs were completely normal. Patient's liver enzymes are elevated during this hospital stay and in the setting of iron deficiency anemia we will order CT abdomen and pelvis to rule out occult malignancy/metastasis. Discussed plan with patient, she is agreeable. Heart failure with preserved ejection fraction Severe tricuspid regurgitation BNP 1085 Decrease Bumex to 1 mg daily, patient is developing contraction alkalosis. Chronic atrial fibrillation s/p dual-chamber PPM, on chronic anticoagulation Continue Cardizem to 40 mg daily. Continue metoprolol tartrate 50 mg 3 times daily Continue Xarelto Obstructive sleep apnea Gastroesophageal reflux disease Continue pantoprazole Hypothyroidism TSH 1.31 on 03/09/2024 Continue liothyronine Chronic kidney disease stage I (more content not included)... [facility] 03-09-2024 Note 03/09/24 0956 Admission Assessment Questions Verify insurance with patient Yes Do you understand medical disease or what brought you into the hospital? Yes Who is your current PCP? Vincenzo Austin MD Can I schedule a follow up appointment for you at the time of discharge? Yes (after 10 am) Do you understand why you are taking your current medications? Yes Are you taking your medications as prescribed? Yes Did patient provide teach back? No Pharmacy Bedside Delivery Status Interested Does the patient have a medical case manager assigned to them through their insurance? No Living Arrangement (Current/Prior to Hospitalization) Private residence;Home self care (lives in one story home. No entry stairs) Does the patient have history of HHC or SNF? [facility] Assistive Device Grab bars;Other (Comment) (rollator) Patient's goal for discharge home Was patient reminded that goal for discharge is 11am? No Does the patient have transportation at discharge? Yes Type of Residence Private residence Is PT/OT appropriate? No Is PT/OT ordered? No Is SW consult appropriate? No Is SW consult ordered? No Do you understand the benefits of MyChart? Yes Were you able to send link and activate MyChart? No [facility] 03-09-2024 Note Hospital Medicine Daily Progress Note - 03/09/2024 8:02 AM; Room: [address] [place] [address] Admission: 03/08/2024 4:27 PM; Length of stay: 1 days THE HOSPITALIST TEAM PREFERS TO USE [employer] FOR COMMUNICATION 7AM-7PM. IF I DO NOT RESPOND WITHIN 15 MINUTES, PLEASE PAGE ME/CALL THROUGH THE ANTIQUE AUTOMOBILES REPAIRER. FROM 7PM-7AM, PLEASE PAGE [phone](COVR) Code Status: DNR CC-A Barriers to Discharge: Cardiology consult, pulmonology consult Expected Discharge Date: 3 to 5 days Discharge Destination: home Overview Patient is seen for evaluation and management of progressive shortness of breath. Karen Gifford is an 88 y.o. female , where she presented with progressive shortness of breath both at rest and worse with exertion for 1 week. Patient denied any fever/chills, chest pain, cough but reported nausea without vomiting. She is undergoing workup for ovarian cancer. Patient was seen outpatient by her PCP who performed x-ray as an outpatient which showed no acute pathology and patient was started on oral antibiotics empirically for possible pneumonia. COVID test was negative at home. PFTs done at [facility] on 01/19/2023 showed restrictive pattern with FEV1 FEC ratio was normal at 85% of FVC was mildly reduced at 70% and FEV1 C was normal at 80% no significant change with bronchodilators and diffusion capacity was 45% when corrected with hemoglobin of 10.8. Patient has history of chronic atrial fibrillation s/p permanent pacemaker for sinus node dysfunction following DC cardioversion. Last echocardiogram performed on 02/22/2023 showed normal LVEF 62%, mild concentric LVH, severely dilated left atrium and severely dilated right atrium. Patient was started on GDMT for heart failure with preserved ejection fraction but Farxiga was discontinued due to frequent UTIs. EKG performed at [facility] showed atrial fibrillation, first-degree AV block. Chest x-ray showed Subjective She was seen and examined at bedside this morning. She was alert awake and oriented. She denied any active complaints. Patient reports that her breathing is near normal. Physical Exam Visit Vitals BP 105/77 (BP Location: Right arm, Patient Position: Lying) Pulse 100 Temp 36.3 ???C (97.3 ???F) (Temporal) Resp (!) 27 No intake or output data in the 24 hours ending 03/09/24 0802 Physical Exam Constitutional: Appearance: Normal appearance. HENT: Head: Normocephalic. Mouth/Throat: Mouth: Mucous membranes are moist. Eyes: Extraocular Movements: Extraocular movements intact. Cardiovascular: Rate and Rhythm: Regular rhythm. Tachycardia present. Pulses: Normal pulses. Heart sounds: Normal heart sounds. Pulmonary: Effort: Pulmonary effort is normal. Breath sounds: Normal breath sounds. Abdominal: General: Abdomen is flat. Palpations: Abdomen is soft. Skin: General: Skin is warm. Neurological: General: No focal deficit present. Mental Status: She is alert and oriented to person, place, and time. Estimated body mass index is 23.78 kg/m??? as calculated from the following: Height as of this encounter: 1.702 m (5' 7 ). Weight as of this encounter: 68.9 kg (151 lb 12.8 oz). Active Inpatient Problems Principal Problem: Pericardial effusion Assessment and Plan Karen Gifford is an 88 y.o. female presented with progressive shortness of breath. Outside hospital CT chest showed large pericardial effusion. Patient is started on anti-inflammatory medications and diuresis, repeat echocardiogram to be performed on Tuesday. Progressive dyspnea Large pericardial effusion Bilateral pleural effusions Continue colchicine ?Hematochezia There was reported hematochezia at [facility] and Hemoccult blood was positive. Patient stated that she once noticed dark blood in her stool at [facility], she had a bowel movement this morning which was brown in color, no further reports of hematochezia. Patient had colonoscopy 12 years ago, she reported it showed a benign polyp. Going to iron deficiency anemia, elevated liver enzymes and this reported questionable hematochezia, patient was offered CT abdomen, she stated she wants to wait and see her oncologist on Tuesday and want to have any further treatment with him. Heart failure with preserved ejection fraction Severe tricuspid regurgitation BNP 1085 1 dose of Bumex 2 mg ordered for 03/09/2024 Chronic atrial fibrillation s/p dual-chamber PPM, on chronic anticoagulation Continue Cardizem to 40 mg daily. Continue metoprolol tartrate 50 mg 3 times daily Continue Xarelto Obstructive sleep apnea Gastroesophageal reflux disease Continue pantoprazole Hypothyroidism TSH 1.31 on 03/09/2024 Continue liothyronine Chronic kidney disease stage III A Hyponatremia 5.1 cm right adnexal cyst, being worked up for ovarian cancer outpatient Cancer screening: Mammogram performed at age 77, unremarkable. Colonoscopy performed 12 years ago, showed (more content not included)... [facility] 03-08-2024 Note Hospital Medicine History and Physical 03/08/2024 10:10 PM THE HOSPITALIST TEAM PREFERS TO USE [email or web address] FOR COMMUNICATION 7AM-7PM. IF I DO NOT RESPOND WITHIN 15 MINUTES, PLEASE PAGE ME/CALL THROUGH THE ANTIQUE AUTOMOBILES REPAIRER. FROM 7PM-7AM, PLEASE PAGE [phone](COVR) Chief Complaint No chief complaint on file. History of Present Illness Karen Gifford is an 88 y.o. female admitted from [facility] where she presented with progressive shortness of breath both at rest and worse with exertion Almost 1 week she denies any fever chills chest pain cough which is mostly dry she feels fatigued tired and had nausea but no vomiting. She is undergoing workup for ovarian cancer. She was seen by her PCP who did not chest x-ray as an outpatient which showed no acute pathology and was started on oral antibiotics presumptively for possible pneumonia due to dyspnea she is unable to do all daily activities she has runny nose but no sore throat no postnasal drip no dysphagia no dyspepsia she also had COVID at home which was negative she had PFTs done at [facility] on 01/19/2023 which showed restrictive pattern with FEV1 FEC ratio was normal at 85% of FVC was mildly reduced at 70% and FEV1 C was normal at 80% no significant change with bronchodilators and diffusion capacity was 45% when corrected with hemoglobin of 10.8. She has history of chronic A-fib status post permanent pacemaker for SND following DCCV. The last echogramdone on 02/22/2023 showed normal left ventricular ejection fraction of 62% mild concentric LVH severely dilated left atrium and severely dilated right atrium IVC was moderately dilated at 2.5 cm she was diagnosed with heart failure with preserved ejection fraction and was on guideline directed medical therapy but Farxiga was discontinued because of recurrent UTIs. She has no history of tobacco dependence or vaping. She is NYHA IIb she had labs done at [facility] WBC was 11.1 hemoglobin 8.7 hematocrit 28.6 MCV V74.3 Platelet count 305, she had electrolytes done which showed sodium 127 potassium 3.8 chloride 89 bicarb 29 anion gap 12 BUN 22 creatinine 1.01 with GFR 52 glucose was 188 lactate 2.5 total calcium 9.1 with albumin of 2.6 her alkaline phosphatase was 78 blood stool was positive EKG obtained showed right bundle branch block pattern atrial fibrillation first-degree AV block chest x-ray showed cardiac enlargement with pacer atelectasis and or question early infiltrate in the right midlung she underwent CT of the chest which showed moderate pleural effusion large pericardial effusion no central PE. Patient has two-pillow orthopnea she denies any syncope any heart palpitations mentioned above or chest pain Review of System and Physical Exam Temp: [36.5 ???C (97.7 ???F)-36.6 ???C (97.9 ???F)] 36.5 ???C (97.7 ???F) Heart Rate: [103-111] 111 Resp: [22-28] 28 BP: (116-122)/(69-76) 122/76 Physical Exam Vitals reviewed. Constitutional: Appearance: Normal appearance. Comments: Elderly white female alert oriented no dyspnea able to speak with complete sentences ectomorphic build HENT: Head: Normocephalic and atraumatic. Right Ear: Tympanic membrane, ear canal and external ear normal. Left Ear: Tympanic membrane, ear canal and external ear normal. Nose: Nose normal. Mouth/Throat: Mouth: Mucous membranes are moist. Pharynx: Oropharynx is clear. Eyes: Extraocular Movements: Extraocular movements intact. Conjunctiva/sclera: Conjunctivae normal. Pupils: Pupils are equal, round, and reactive to light. Neck: Comments: Intermittent aVF no JVD Cardiovascular: Comments: S1-S2 variable intensity appears muffled soft S4 Soft systolic murmur left lower sternal border Pulmonary: Effort: Pulmonary effort is normal. Breath sounds: Normal breath sounds. Comments: Decreased egophony both sides posteriorly bases diminished breath sound bases Abdominal: General: Abdomen is flat. Bowel sounds are normal. Palpations: Abdomen is soft. Musculoskeletal: General: Normal range of motion. Right lower leg: No edema. Left lower leg: No edema. Skin: General: Skin is warm and dry. Capillary Refill: Capillary refill takes less than 2 seconds. Neurological: General: No focal deficit present. Mental Status: She is alert. Mental status is at baseline. Psychiatric: Behavior: Behavior normal. Review of Systems Constitutional: Positive for activity change, fatigue and unexpected weight change. HENT: Negative. Eyes: Negative. Respiratory: Positive for shortness of breath. Negative for apnea, cough, choking, chest tightness, wheezing and stridor. Cardiovascular: Negative. Gastrointestinal: Positive for constipation. Negative for abdominal distention, abdominal pain, anal bleeding, blood in stool, diarrhea, nausea, rectal pain and vomiting. Endocrine: Negative. Genitourinary: Negative. Musculoskeletal: Negative. Skin: Negative. Allergic/Immu (more content not included)... [facility] 12-01-2023 History of Present illness Narrative REASON [...] time was spent with patient performing the nail technician teacher work of this visit. Referring Physician: Hx; [...] ROS: complete review of systems performed by nail technician teacher, reviewed by me. OCT: baseline, good quality, [...] resolved OS. documented in this encounter [facility] 06-28-2023 History of Present illness Narrative Electrophysiology Clinic Consult Heart & Vascular [facility] 06/28/2023 Jay Guerra MD [address] [facility] [id number] Patient: Karen Gifford Date of : 1935 (88 y.o.) Referring Provider: Vincenzo Austin MD PCP: Vincenzo Austin MD Chief Complaint: Second opinion, atrial fibrillation [...] her age, doing water walking at the [facility] for 30 minutes twice per week. [...] 88 y.o. female who presents today to establish care. The following issues were addressed at [...] daily indefinitely in the setting of a [id number] score of 5. Sick sinus syndrome status [...] do not hesitate to contact me. Jay Guerra MD Cardiac Electrophysiology I spent a total of 60 minutes in the care of this patient on 06/28/2023. Time was spent reviewing previous notes and test results, obtaining the history and performing the physical exam, ordering medications/tests/procedures, counseling the patient and/or family members, referring and/or communicating with other health home care provider, coordinating care, and documenting the above findings. documented in this encounter [facility] 06-28-2023 Instructions Janet Mendoza RN - 06/28/2023 12:44 PM EST Testing Ordered: None Medication Changes: Stop Amiodarone Lab Work Ordered: None To schedule any outpatient testing( if applicable) simply call [phone] and follow the prompts to schedule any outpatient testing. If you have any questions or concerns about today's visit please call Janet POWELL at [phone] documented in this encounter [facility] 06-03-2023 Note Stable Device interrogation q 6 months [facility] 06-03-2023 Note [facility] I-II, Currently pt is euvolemic without exacerbation Continue GDMT- continue bumex- Diuretic therapy Monitor daily weights, I&O, fluid restriction 1.5-2L/day, renal function and electrolytes [facility] 06-03-2023 Note Continue xarelto and amiodarone and atenolol [facility] 06-03-2023 Note Hypertension is elev ated 142/77 [...] remains > 130/80, or for any concerns [facility] 06-03-2023 Note Patient here per Dr. Austin for uncontrolled BP. She presented to [facility] 3 days ago for headache [...] All other systems reviewed and are negative. [facility] 06-03-2023 Note [facility] CARDIOLOGY PROGR ESS NOTE HPI: Karen Gifford is a 88 y.o. female here for elevated B/P Patient here per Dr. Austin for uncontrolled BP. She presented to [facility] 3 days ago for headache [...] on chronic diastolic (congestive) heart failure (CMS/HCC) [facility] I-II, Currently pt is euvolemic without exacerbation Continue GDMT- continue bumex- Diuretic therapy Monitor daily weights, I&O, fluid restriction 1.5 (more content not included)... [facility] 05-31-2023 History of Present illness Narrative REASON FOR VISIT Karen Gifford presents to clinic today for a New Patient visit. Chief Complaint New Patient; Glaucoma HISTORY OF PRESENT ILLNESS HPI Self Referred for Glaucoma eval Patient asked about problems with loss of vision, eye pain/irritation, redness and discharge. The patient denies all except for the following: pt wants to est with new Glc Doctor [facility] for about doctor from [place] gave pt 2 corneal abrasions. Last edited by Shanique Nidaye on 05/31/2023 10:14 AM. Allergies, medications & history reviewed & updated by Shanique Ndiaye REVIEW OF SYSTEMS Review of Systems 20 minutes of face to face time was spent with patient performing the nail technician teacher work of this visit. Referring Physician: Hx; [...] ROS: complete review of systems performed by nail technician teacher, reviewed by me. OCT: baseline, good quality, [...] after hours documented in this encounter [facility] 05-06-2023 Note [facility] Electrophysiology Consult Note Reason [...] fib with varying intervals Echocardiogram performed at [facility] on 12/25/2021 showed EF of 55 [...] HTN, LANEY, HLD FMHx: mother - hx PR ETOH: denies Tobacco: denies Illicit drugs: denies Diet: occasional caffeine intake ------- PMH: Past Medical History: Diagnosis Date A-fib ([facility]) CVA (cerebral vascular accident) ([facility]) GERD (gastroesophageal reflux disease) Hyperlipidemia Hypertension LANEY [...] Symptoms: no lightheade (more content not included)... [facility] 03-22-2022 Note CARDIAC STRESS TEST Requesting Physician: [...] and reported in a separate dictation. [facility] 02-17-2021 Note Chief Complaint referral for rectal bleeding HPI Staff 85 year old female presents on consultation from Dr. Austin for one time episode of abdominal cramping, [...] Mother. Mitral valve (more content not included)... [facility] Comment on above: Result Comment: Elec tronically Signed By: CAITLIN CORDON, Avtar Priest\Date and Time Signed: 02/17/21 14:39 EDT Evaluation note Diagnosis Primary open-angle glaucoma, bilateral, indeterminate stage- Primary PCO (posterior capsular opacification), left After-cataract, unspecified [facility]F (paroxysmal atrial fibrillation) (HCC)- Primary Atrial fibrillation [facility] Diagnosis PAF (paroxysmal atrial fibrillation) (HCC)- Primary Atrial fibrillation 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 SSS (sick sinus syndrome) (HCC) Sinoatrial node dysfunction Hypertension, unspecified type Heart failure with preserved ejection fraction, unspecified HF chronicity (HCC) [facility] Primary open-angle glaucoma, bilateral, indeterminate stage- Primary [facility] Diagnosis PAF (paroxysmal atrial fibrillation) (HCC)- Primary Atrial fibrillation 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 documented in this encounter [facility] Summary Purpose Family History No Family History Records FoundNo Family History Records FoundNo Family History Records FoundNo Family History Records FoundNo Family History Records FoundNo Family History Records FoundNo Family History Records FoundNo Family History Records Found Advance Directives No Advanced Directives Records FoundDocuments on File Type Date Recorded Patient Research Statistician Expl anation Advance Directives and Livin g Will 06/28/2023 12:40 PM Documents on File Type Date Recorded Patient Research Statistician Expl anation Advance Directives and Livin g Will 06/28/2023 12:40 PM Reason for Referral Specialty Diagnoses / Procedures Referred By Contac t Referred To Contact Cardiology Diagnoses PAF (paroxysmal atrial fibrillation) (HCC) Procedures ECG 12 lead Jay Guerra MD [address] [place] [address] Referral ID Status Reason Start Date Expiration Date V isits Requested Visits Authorized [id number] Authorized 06/23/2023 06/22/2024 1 1 Specialty Diagnoses / Procedures Referred By Contac t Referred To Contact Cardiology Diagnoses PAF (paroxysmal atrial fibrillation) (HCC) Presence of cardiac pacemaker Procedures ECG 12 lead Jay Guerra MD [address] [place] [address] Referral ID Status Reason Start Date Expiration Date V isits Requested Visits Authorized [id number] Authorized 02/02/2024 02/01/2025 4 4 Additional Source Comments INFORMATION SOURCE (unrecogn ized section and content) DATE CREATED AUTHOR 02/18/2021 [facility] DATE CREATED AUTHOR AUTHOR'S ORGANIZ ATION 12/28/2022 [facility] DATE CREATED AUTHOR AUTHOR'S ORGANIZ ATION 03/10/2023 [facility] DATE CREATED AUTHOR AUTHOR'S ORGANIZ ATION 06/29/2023 [facility] DATE CREATED AUTHOR AUTHOR'S ORGANIZ ATION 12/02/2023 [facility] DATE CREATED AUTHOR AUTHOR'S ORGANIZ ATION 12/10/2023 [facility] DATE CREATED AUTHOR AUTHOR'S ORGANIZ ATION 01/04/2024 [facility] EPIC DATE CREATED AUTHOR AUTHOR'S ORGANIZ ATION 03/27/2024 [facility] Reason for Visit (unrecogniz ed section and content) Reason Comments New Patient Glaucoma Reason Comments Follow-up Care Teams (unrecognized sec tion and content) Dishwashing Machine Repairer Relationship Specialty Start Date End Date Vincenzo Austin MD [address] [place] [phone] PCP - General Family Medicine 05/31/23 Sean Redman DO [address] [place] [address] [place] [id number] Ophthalmology 05/31/23 Dishwashing Machine Repairer Relationship Specialty Start Date End Date Vincenzo Austin MD [address] [place] [address] PCP - General Family Medicine 06/15/23 Dishwashing Machine Repairer Relationship Specialty Start Date End Date Vincenzo Austin MD [address] [place] [address] PCP - General Family Medicine 06/15/23 Jay Guerra MD [address] [place] [address] [address] [place] [address] Cardiac Electrophysiology 06/28/23 Dishwashing Machine Repairer Relationship Specialty Start Date End Date Vincenzo Austin MD [address] [place] [address] PCP - General Family Medicine 06/15/23 Jay Guerra MD [address] [place] [address] Cardiac Electrophysiology 06/28/23 FOR RECORDS PERTAINING TO [...] BE BASED ON THE PRIMARY CLINICAL RECORDS. [facility]. provides no warranty or guarantee of the accuracy or completeness of information in this document.
[2024-03-27 12:16] LABS: Basophils Absolute Auto 0.1 10^3/uL (0.0-0.1); Basophils Percent Auto 1.4 % (0.2-2.0); Eosinophils Absolute Auto 0.3 10^3/uL (0.0-0.7); Eosinophils Percent Auto 4.3 % (0.9-7.0); Hemoglobin 9.9 g/dL (12.0-16.0); Immature Granulocytes Abs Auto 0.02 10^3/uL (0.00-0.03); Immature Granulocytes Pct Auto 0.3 % (0.0-0.5); Lymphocytes Absolute Auto 1.7 10^3/uL (1.2-3.8); Lymphocytes Percent Auto 28.9 % (20.5-60.0); Mean Corpuscular HGB Conc 29.1 g/dL (29.9-35.2); Mean Corpuscular Hemoglobin 23.3 pg (26.7-34.0); Mean Platelet Volume 9.8 fL (9.5-13.5); Monocytes Absolute Auto 0.5 10^3/uL (0.3-0.8); Monocytes Percent Auto 8.9 % (1.7-12.0); Neutrophils Absolute Auto 3.3 10^3/uL (1.4-6.5); Neutrophils Percent Auto 56.2 % (43.0-75.0); Platelet Count 207 10^3/uL (150-450); Red Blood Count 4.25 10^6/uL (4.20-5.40); Red Cell Distribution Width 22.6 % (11.0-15.0)
[2024-03-27 12:38] LABS: White Blood Count 5.9 10^3/uL (4.0-11.0)
[2024-03-27 13:09] LABS: BUN Creatinine Ratio 27.4; Calcium 9.3 mg/dL (8.5-10.1); Chloride 100 mmol/L (98-107); Estimated GFR (African America >60 (>=60); Estimated GFR (Non-African Ame >60 (>=60); Glucose 108 mg/dL (74-106); Magnesium 1.4 mg/dL (1.8-2.4); Phosphorus 3.4 mg/dL (2.6-4.7); Sodium 137 mmol/L (136-145)
== END 2024-03-27 11:59 | disposition home or self-care (01) ==
LOC: LAB 11:59
PROVIDERS: PCP Family Medicine; Visit Provider Family Medicine
DX: Z01.810 Encounter for preprocedural cardiovascular examination (principal)
CPT/HCPCS: 36415; 80048; 83735; 84100; 85025

== ENCOUNTER 2024-04-06 11:05 | Outpatient (OUT) | payer MEDICARE, OTHER, SELFPAY ==
--- OUTSIDE RECORDS SUMMARY | 2024-04-06 11:15 | XMS_ITS | CCD ---
Author Organization [facility] Care Team Providers Care Financial Services Sales Representative Name Role Phone NORMAN ., DR LOYA Primary Care Unavailable LORI, CHILANGO Attending Unavailable LORI, CHILANGO Admitting Unavailable CHILANGO SANDOVAL Consulting Unavailable HOY ., DR LOYA Primary [...] Unavailable HOY ., DR LOYA Consulting Unavailable GROVESPRING, DR JAY Santillan Consulting Unavailable LORI, CHILANGO Consulting Unavailable LORI, CHILANGO Admitting Unavailable LORIISIA Consulting Unavailable CHILANGO SANDOVAL Attending Unavailable HOY ., DR LOYA Primary Care Unavailable HOY ., DR LOYA Consulting Unavailable HOY ., DR LOYA Admlonnie Unavailable HOY ., DR LOYA Attending Unavailable HOY ., DR LOYA Primary Care Unavailable Abimbola Amador Consulting Unavailable HOY ., DR LOYA Consulting Unavailable HOY ., DR LOYA Admitting Unavailable HOY ., DR LOYA Attending Unavailable HOY ., DR LOYA Primary Care Unavailable HOY, VINCENZO M Primary Care Unavailable ZHAO PEDERSEN Referring Unavailable Vincenzo Patel MD Primary Care Provider [phone] Feroz Sean SIMS Unavailable Vincenzo Patel MD Primary Care Provider [phone] Jay Munoz MD Unavailable [phone] ABIMBOLA CHACON Attending Unavailable SELF, SELF Referring Unavailable HOY, VINCENZO M Primary Care Unavailable ABIMBOLA CHACON Attending Unavailable SELF, SELF Referring Unavailable HOY, VINCENZO Primary Care Unavailable SIMONE CAMPOVERDE Attending Unavailable HOY, VINCENZO Primary Care Unavailable SIMONE CAMPOVERDE Attending Unavailable LORIE PARK Attending Unavailable HOY, VINCENZO Primary Care Unavailable HOY, VINCENZO Primary Care Unavailable KIKO BARBA Attending Unavailable JAY MUNOZ Attending Unavailable HOY, VINCENZO Referring Unavailable HOY, VINCENZO Primary Care Unavailable JJ AYERS Attending Unavailable NADEEM ABBASI Attending Unavailable SANAULLNARCISA DELACRUZAR Referring Unavailable SU, JAMI Referring Unavailable SU, JAMI Referring Unavailable SU, JAMI Referring Unavailable SU, JAMI Referring Unavailable SU, JAMI Referring Unavailable SU, JAMI Referring Unavailable SU, JAMI Referring Unavailable SU, JAMI Referring Unavailable UNKNOWN, UNKNOWN Referring Unavailable KRYSTIN NAVARRETE Admitting Unavailable ORQUIDEA, KOFI Attending Unavailable CHILANGO SANDOVAL Attending Unavailable JJ AYERS Referring Unavailable Allergies Allergy Classification Reported Allergen(s) Allergy Type Date of Onset Reaction(s) Facility (1 source) Enalapril Drug Allergy 5 [facility] Repository (4 sources) Isosorbide; Translations: [ISOSORBIDE] Drug Allergy 0 [facility] Repository (1 source) NIFEdipine Drug Allergy 5 [facility] Repository (2 sources) Calcium Channel Blockers Propensity to adverse reactions to drug 3 [facility] (2 sources) Enalapril Drug Allergy 3 [facility] (7 sources) Enalapril; Translations: [ENALAPRIL MALEATE] Drug Allergy 3 Unknown [facility] (4 sources) Isosorbide Drug Allergy 0 Other (See Comments) [facility] (7 sources) Lisinopril; Translations: [LISINOPRIL] Drug Allergy 2 Other (See Comments) [facility] (7 sources) Morphine; Translations: [MORPHINE] Drug Allergy 2 Other (See Comments) [facility] (7 sources) NIFEdipine; Translations: [NIFEDIPINE] Drug Allergy 5 Unknown [facility] (6 sources) Sulfonamides (Antibiotic); Translations: [SULFA (SULFONAMIDE ANTIBIOTICS)] Propensity to adverse reactions to drug 3 Unknown [facility] (6 sources) Calcium Channel Blocking Agents-Dihydropy ridines; Translations: [CALCIUM CHANNEL BLOCKING AGENTS-DIHYDROPY RIDINES] Propensity to adverse reactions to drug 3 Unknown [facility] (1 source) dapagliflozin; Translations: [DAPAGLIFLOZIN] Drug Allergy 4 [facility] Repository Medications Current Medications Medication Drug Class(es) Dates Sig (Normalized) Sig (Original) albuterol 0.83 mg/ml inhalation solution (4 sources) beta2-Adrenergi c Agonist Start: 02-16-2023 take 3 mL by inhalation every six hours as needed albuterol (PROVENTIL) 2.5 mg /3 mL (0.083 %) nebulizer solution 3 mL as needed Inhalation every 6 hrs 02/16/2023 Active atenolol 100 mg oral tablet (6 sources) beta-Adrenergic Antwon Start: 05-04-2023 take 1 tablet by mouth twice daily atenoloL (TENORMIN) 100 MG tablet Take 1 tablet twice a day by oral route for 90 days. 05/04/2023 Active atorvastatin 10 mg oral tablet (1 source) HMG-CoA Reductase Inhibitor Start: 03-16-2024 End: 04-15-2024 take 1 tablet by mouth once daily at bedtime atorvastatin (LIPITOR) 10 MG tablet Take 1 (one) tablet (10 mg total) by mouth every night at bedtime . 03/16/2024 04/15/2024 Active bumetanide 1 mg oral tablet (7 sources) Loop Diuretic Start: 05-24-2023 End: 06-28-2023 take 1 tablet by mouth once daily bumetanide (BUMEX) 1 MG tablet Take 1 (one) tablet (1 mg total) by mouth daily . 90 tablet 3 06/28/2023 Active cholecalciferol 0.25 mg oral capsule (4 sources) Vitamin D cholecalciferol (VITAMIN D3) 250 mcg (10,000 unit) capsule as directed Orally Active ciclopirox 80 mg/ml topical solution (6 sources) Start: 03-24-2023 ciclopirox 8 % Solution topical solution APPLY 1 SOLUTION TOPICALLY ONCE DAILY FOR 30 DAYS 03/24/2023 Active colchicine 0.6 mg oral tablet (1 source) Start: 03-15-2024 End: 05-14-2024 take 1 tablet by mouth twice daily colchicine 0.6 mg tablet Take 1 (one) tablet (0.6 mg total) by mouth 2 (two) times a day . 03/15/2024 05/14/2024 Active 24 hr dilTIAZem hydrochloride 180 mg extended release oral capsule (6 sources) Calcium Channel Antwon Start: 04-26-2023 Diltiazem 180 MG Cap SR 24HR capsule XL 04/26/2023 Active take 1 capsule by mouth once celestine ly diltiazem (TIAZAC) 240 MG 24 hr capsule Take by mouth daily . Active take 1 capsule by mouth once celestine ly diltiazem (CARDIZEM CD) 300 MG 24 hr capsule Take 1 (one) capsule (300 mg total) by mouth daily . Active famotidine 40 mg oral tablet (1 source) Histamine-2 Receptor Antagonist Start: 11-30-2023 take 1 tablet by mouth twice daily Pepcid 40 MG tablet Take 1 tablet by mouth 2 times daily. 11/30/2023 Active hydrALAZINE hydrochloride 100 mg oral tablet (6 sources) Arteriolar Vasodilator Start: 05-20-2023 take 1 tablet by mouth twice daily hydrALAZINE (APRESOLINE) 100 MG tablet Take 1 tablet twice a day by oral route for 90 days. 05/20/2023 Active latanoprost 0.05 mg/ml ophthalmic solution (6 sources) Prostaglandin Analog Start: 05-16-2023 latanoprost (XALATAN) 0.005 % ophthalmic solution every night at bedtime . 05/16/2023 Active Start: 05-16-2023 Latanoprost 0. 005 % Solution ophthalmic solution 05/16/2023 Active liothyronine sodium 0.005 mg oral tablet (6 sources) l-Triiodothyronine Start: 05-16-2023 take 2 tablets by mouth once daily liothyronine (CYTOMEL) 5 MCG tablet Take 2 (two) tablets (10 mcg total) by mouth daily . 05/16/2023 Active Start: 05-16-2023 Liothyronine 5 MCG tablet 05/16/2023 Active Magnesium (6 sources) take 1 tablet by eh th once daily at lunch magnesium 250 mg Tab Take 1 (one) tablet (250 mg total) by mouth daily with lunch . Active Magnesium (V-R M AGNESIUM) 250 MG tablet Take 1 tablet by mouth. Active take 1 tablet by eh th once daily at lunch magnesium 250 mg Tab Take 1 (one) tablet (250 mg total) by mouth daily with lunch . 0 Active Magnesium (V-R M AGNESIUM) 250 MG tablet Take 1 tablet by mouth. 0 Active metoprolol tartrate 50 mg oral tablet (1 source) beta-Adrenergic Antwon Start: 03-15-2024 End: 05-14-2024 take 1 tablet by mouth three times daily metoprolol tartrate (LOPRESSOR) 50 MG tablet Take 1 (one) tablet (50 mg total) by mouth 3 (three) times a day . 03/15/2024 05/14/2024 Active rivaroxaban 20 mg oral tablet (6 sources) Factor Xa Inhibitor Start: 04-13-2022 take 1 tablet by mouth once daily Xarelto 20 mg Tab Take 1 (one) tablet (20 mg total) by mouth daily . 04/13/2022 Active simvastatin 10 mg oral tablet (6 sources) HMG-CoA Reductase Inhibitor Start: 05-29-2023 take 1 tablet by mouth once daily simvastatin (ZOCOR) 10 MG tablet Take 1 (one) tablet (10 mg total) by mouth daily . 05/29/2023 Active 12 hr timolol 5 mg/ml ophthalmic solution (10 sources) beta-Adrenergic Antwon Start: 05-09-2023 timolol (TIMOPTIC) 0.5 % ophthalmic solution every night at bedtime . 05/09/2023 Active Start: 05-09-2023 Timolol maleat e 0.5 % Solution ophthalmic solution 05/09/2023 Active take 1 drop(s) into the eye(s) twice daily timoloL (BETIMOL) 0.25 % ophthalmic solution 1 (one) drop 2 (two) times a day . Active Completed/Discontinued Medications Medication Drug Class(es) Dates Sig (Normalized) Sig (Original) amiodarone hydrochloride 200 mg oral tablet (3 sources) Antiarrhythmic Start: 05-06-2023 End: 06-28-2023 amiodarone (CORDARONE) 200 MG tablet Take by mouth . 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, left eye] 05-31-2023 Chronic Conduction disorders (11 sources) Cardiac pacemaker in situ; Translations: [Presence of cardiac pacemaker] Onset: 04-12-2023 06-28-2023 Chronic Congestive heart failure; nonhypertensive (14 sources) Unspecified diastolic (congestive) heart failure; Translations: [Acute combined systolic (congestive) and diastolic (congestive) heart failure] Onset: 12-06-2022 Chronic Disorders of lipid metabolism (2 sources) Pure hypercholesterolemia , unspecified; Translations: [Hyperlipidemia, unspecified] Onset: 09-06-2022 Chronic Essential hypertension (9 sources) Hypertensive disorder; Translations: [Essential (primary) hypertension] [...] Translations: [SHORTNESS OF BREATH] Onset: 11-04-2022 Episodic Renata-; endo-; and myocarditis; cardiomyopathy (except that caused by tuberculosis or sexually transmitted disease) (1 source) Pericardial effusion; Translations: [Pericardial effusion] 03-29-2024 Episodic Pleurisy; pneumothorax; pulmonary collapse (3 sources) Pleural effusion; Translations: [Pleural effusion, not elsewhere classified] Onset: 03-29-2024 03-29-2024 Episodic Thyroid disorders (5 sources) Hypothyroidism, unspecified; Translations: [HYPOTHYROIDISM UNSPECIFIED] Onset: 11-11-2022 Chronic Unclassified (3 sources) LOW BACK PAIN, UNSPECIFIED; Translations: [LOW BACK PAIN, UNSPECIFIED] Onset: 08-31-2022 Unclassified (1 source) PERSONAL HISTORY OF COVID-19; Translations: [PERSONAL HISTORY OF COVID-19] Onset: 05-25-2022 Unclassified (2 sources) Other persistent atrial fibrillation; Translations: [Other persistent atrial fibrillation] Onset: 03-29-2024 Unclassified (2 sources) Other pericardial effusion (noninflammatory); Translations: [Other pericardial [...] 09-06-2022 Episodic Other aftercare (1 source) Other retirement (current) drug therapy; Translations: [OTH [facility] CURRENT DRUG THERAPY] Onset: 05-25-2022 Episodic Other [...] [LOW BACK PAIN, UNSPECIFIED] Onset: 08-27-2022 Unclassified (2 sources) Other pericardial effusion (noninflammatory); Translations: [Other pericardial effusion (noninflammatory)] Onset: 03-08-2024 Results Test Name Value Interpretation Reference Range Facility Follow-Upon 03-28-2024 Follow-Up Normal [facility] Documentationon 03-20-2024 Documentation Normal [facility] 30on 03-15-2024 30 Normal [facility] CBC WITH AUTO DIFFERENTIALon 03-15-2024 Erythrocyte distribution width (RBC) [Ratio] 19.3 % High 11.5-15.0 [facility] Comment on above: Performed By: #### L [id number] ####[facility] (BEAKER)[address] [place] [address] ERYTHROCYTE MEAN CORPUSCULAR HEMOGLOBIN CONCENTRATION (G/DL) BY AUTOMATED 28.8 g/dL Low 32.0-35.0 [facility] Comment on above: Performed By: #### L [id number] ####[facility] (BEAKER)[address] [place] [address] Hematocrit (Bld) [Volume fraction] 28.5 % Low 36.0-48.0 [facility] Comment on above: Performed By: #### L [id number] ####[facility] (BEAKER)[address] [place] [address] Hemoglobin (Bld) [Mass/Vol] 8.2 g/dL Low 12.0-15.0 [facility] Comment on above: Performed By: #### L [id number] ####[facility] (BEAKER)[address] [place] [address] MCH (RBC) [Entitic mass] 22.2 pg Low 27.0-33.0 [facility] Comment on above: Performed By: #### L [id number] ####[facility] ([facility])[address] [place] [address] MCV (RBC) [Entitic vol] 77.2 fL Low 82.0-98.0 [facility] Comment on above: Performed By: #### L [id number] ####[facility] ([facility])[address] [address] NRBC (PER 100 WBCS) BY AUTOMATED COUNT 0.2 % High 0 [facility] Comment on above: Performed By: #### L [id number] ####[facility] ([facility])[address] [place] [address] PLATELETS (10*3/UL) IN BLOOD AUTOMATED COUNT 287 10*3/uL Normal 150-400 [facility] Comment on above: Performed By: #### L [id number] ####[facility] ([facility])[address] [place] [address] RBC (Bld) [#/Vol] 3.69 10*6/uL Low 3.80-5.00 [facility] Comment on above: Performed By: #### L [id number] ####[facility] ([facility])[address] [address] WBC (Bld) [#/Vol] 9.45 10*3/uL Normal 4.00-10.60 [facility] Comment on above: Performed By: #### L [id number] ####[facility] ([facility])[address] [place] [address] COMPREHENSIVE METABOLIC PANE Robbie 03-15-2024 Albumin [Mass/Vol] 2.8 g/dL Low 3.5-5.7 [facility] Comment on above: Performed By: #### L [id number] ####[facility] ([facility] [place] [address] ALP [Catalytic activity/Vol] 56 U/L Normal 34-104 [facility] Comment on above: Performed By: #### L [id number] ####[facility] (BEAKER)[address] [place] [address] ALT [Catalytic activity/Vol] 44 U/L Normal 7-52 [facility] Comment on above: Performed By: #### L [id number] ####[facility] (BEAKER)[address] [place] [address] Anion gap [Moles/Vol] 11 mmol/L Normal 7-20 [facility] Comment on above: Performed By: #### L [id number] ####[facility] (BEAKER)[address] [place] [address] AST [Catalytic activity/Vol] 14 U/L Normal 13-39 [facility] Comment on above: Performed By: #### L [id number] ####[facility] (BEAKER)[address] [place] [address] Bilirubin [Mass/Vol] 0.3 mg/dL Normal 0.3-1.0 [facility] Comment on above: Performed By: #### L [id number] ####[facility] (BEAKER)[address] [place] [address] Calcium [Mass/Vol] 8.1 mg/dL Low 8.6-10.3 [facility] Comment on above: Performed By: #### L [id number] ####[facility] (BEAKER)[address] [place] [address] Chloride [Moles/Vol] 100 mmol/L Normal 98-107 [facility] Comment on above: Performed By: #### L [id number] ####[facility] (BEAKER)[address] [place] [address] CO2 [Moles/Vol] 29 mmol/L Normal 21-31 [facility] Comment on above: Performed By: #### L [id number] ####[facility] (BEAKER)[address] [place] [address] Creatinine [Mass/Vol] 0.67 mg/dL Normal 0.60-1.20 [facility] Comment on above: Performed By: #### L [id number] ####[facility] ([facility])[address] [place] [address] GLOMERULAR FILTRATION RATE ML/MIN/1.73 SQ M.PREDICTED 85.1 mL/min/1.73m*2 Normal >60.0 [facility] Comment on above: Result Comment: The [facility]???s estimated glomerular filtration rate (eGFR) will [...] of individuals. Performed By: #### L [id number] ####[facility] ([facility])[address] [place] [address] Glucose [Mass/Vol] 92 mg/dL Normal 70-100 [facility] Comment on above: Performed By: #### L [id number] ####[facility] ([facility])[address] [place] [address] Potassium [Moles/Vol] 3.4 mmol/L Low 3.5-5.1 [facility] Comment on above: Performed By: #### L [id number] ####[facility] ([facility])[address] [place] [address] Protein [Mass/Vol] 5.7 g/dL Low 6.0-8.3 [facility] Comment on above: Performed By: #### L [id number] ####[facility] ([facility])[address] [place] [address] Sodium [Moles/Vol] 137 mmol/L Normal 136-145 [facility] Comment on above: Performed By: #### L [id number] ####[facility] ([facility])[address] [place] [address] Urea nitrogen [Mass/Vol] 12 mg/dL Normal 7-25 [facility] Comment on above: Performed By: #### L [id number] ####[facility] ([facility])[address] [place] [address] UREA NITROGEN/CREATININ E (MASS RATIO) IN SER/PLAS 17.9 Normal [facility] Comment on above: Performed By: #### L [id number] ####[facility] ([facility])[address] [place] [address] DSon 03-15-2024 DS Normal [facility] MANUAL DIFFERENTIALon 2023 ANISOCYTOSIS PRESENCE IN BLOOD BY LIGHT MICROSCOPY Moderate Normal [facility] Comment on above: Performed By: #### L [id number] ####[facility] ([facility])[address] [place] [address] BASOPHILS (10*3/UL) IN BLOOD BY CALCULATION 0.06 10*3/uL Normal 0.00-0.20 [facility] Comment on above: Performed By: #### L [id number] ####[facility] ([facility])[address] [place] [address] BASOPHILS/100 LEUKOCYTES IN BLOOD BY AUTOMATED COUNT 0.6 % Normal 0.0-1.0 [facility] Comment on above: Performed By: #### L [id number] ####[facility] ([facility] [place] [address] EOSINOPHILS (10*3/UL) IN BLOOD BY CALCULATION 0.43 10*3/uL Normal 0.00-0.50 [facility] Comment on above: Performed By: #### L [id number] ####[facility] ([facility] [place] [address] EOSINOPHILS/100 LEUKOCYTES IN BLOOD BY AUTOMATED COUNT 4.6 % Normal 0.0-6.0 [facility] Comment on above: Performed By: #### L [id number] ####[facility] ([facility] [place] [address] HYPOCHROMIA (PRESENCE) IN BLOOD BY LIGHT MICROSCOPY Slight Normal [facility] Comment on above: Performed By: #### L [id number] ####[facility] ([facility])[address] [place] [address] IMMATURE GRANULOCYTES (10*3/UL) IN BLOOD BY CALCULATION 0.13 10*3/uL Normal 0.00-0.20 [facility] Comment on above: Performed By: #### L [id number] ####[facility] ([facility])[address] [place] [address] IMMATURE GRANULOCYTES/100 LEUKOCYTES IN BLOOD BY AUTOMATED COUNT 1.4 % High 0.0-1.0 [facility] Comment on above: Performed By: #### L [id number] ####[facility] ([facility])[address] [place] [address] LYMPHOCYTES (10*3/UL) IN BLOOD BY CALCULATION 2.25 10*3/uL Normal 1.20-4.00 [facility] Comment on above: Performed By: #### L [id number] ####[facility] ([facility])[address] [place] [address] LYMPHOCYTES/100 LEUKOCYTES IN BLOOD BY AUTOMATED COUNT 23.8 % Normal 20.0-45.0 [facility] Comment on above: Performed By: #### L [id number] ####[facility] ([facility])[address] [place] [address] MONOCYTES (10*3/UL) IN BLOOD BY CALCUATION 0.95 10*3/uL Normal 0.10-1.00 [facility] Comment on above: Performed By: #### L [id number] ####[facility] ([facility])[address] [place] [address] MONOCYTES/100 LEUKOCYTES IN BLOOD BY AUTOMATED COUNT 10.1 % Normal 5.0-12.0 [facility] Comment on above: Performed By: #### L [id number] ####[facility] ([facility])[address] [place] [address] NEUTROPHILS (10*3/UL) IN BLOOD BY CALCULATION 5.6 10*3/uL Normal 1.6-7.6 [facility] Comment on above: Performed By: #### L [id number] ####[facility] ([facility] [place] [address] NEUTROPHILS/100 LEUKOCYTES IN BLOOD BY AUTOMATED COUNT 59.5 % Normal 40.0-72.0 [facility] Comment on above: Performed By: #### L [id number] ####[facility] ([facility])[address] [place] [address] POIKILOCYTOSIS (PRESENCE) IN BLOOD BY LIGHT MICROSCOPY Slight Normal [facility] Comment on above: Performed By: #### L [id number] ####[facility] ([facility])[address] [place] [address] POLYCHROMASIA IN BLOOD BY LIGHT MICROSCOPY Slight Normal [facility] Comment on above: Performed By: #### L [id number] ####[facility] ([facility])[address] [place] [address] Orders Onlyon 03-15-2024 Orders Only [id number] Yolette Gifford nnpollo F 1935 F Date Provider Department Center 03/15/[id number] [facility] [place] No family history on file Normal [facility] POCT GLUCOSE METER UNSOLICIT ED RESULTSon 03-15-2024 Glucose [Mass/Vol] 99 mg/dL Normal 70-105 [facility] Comment on above: Order Comment: Waive d Testing in the ED is performed under the ED CLIA certificate #[id number]. Result Comment: [email or web address] Performed By: #### L [id number] ####[facility] ([facility] [place] [address] Glucose [Mass/Vol] 104 mg/dL Normal 70-105 [facility] Comment on above: Order Comment: Waive d Testing in the ED is performed under the ED CLIA certificate #[id number]. Result Comment: [email or web address] Performed By: #### L [id number] ####[facility] ([facility] [place] [address] 30on 03-14-2024 30 Normal [facility] 30 Normal [facility] 30 Normal [facility] AFB CULTUREon 03-14-2024 AFB CULTURE No growth at 21 days Normal [facility] Comment on above: Performed By: #### L [id number] ####[facility] (BEAKER)[address] [place] [address] AFB STAIN No acid fast bacilli seen Normal [facility] Comment on above: Performed By: #### L [id number] ####[facility] (BEAKER)[address] [place] [address] AMYLASE, BODY FLUIDon 2023 AMYLASE (U/L) IN BODY FLUID 31 U/L [facility] Comment on above: Result Comment: The reference range and other method performance specifications have not been established for this test in fluids. the test result should be integrated into the clinical context for interpretation. Performed By: #### L [id number] ####[facility] (BEAKER)[address] [place] [address] BODY FLUID CELL DIFFERENTIAL on 03-14-2024 BASOPHILS TOTAL PER COUNTED LEUKOCYTES IN BODY FLUID BY MANUAL COUNT [facility] Comment on above: Order Comment: Diffe rential performed on cytospin Performed By: #### L [id number] ####[facility] (BEAKER)[address] [place] [address] CELLS COUNTED TOTAL (#) IN BODY FLUID 100 Normal [facility] Comment on above: Order Comment: Diffe rential performed on cytospin Performed By: #### L [id number] ####[facility] ([facility]AKER)[address] [place] [address] EOSINOPHILS TOTAL PER COUNTED LEUKOCYTES IN BODY FLUID BY MANUAL COUNT 4 Normal [facility] Comment on above: Order Comment: Diffe rential performed on cytospin Performed By: #### L [id number] ####[facility] (BEAKER)[address] [place] [address] LYMPHOCYTES TOTAL PER COUNTED LEUKOCYTES IN BODY FLUID BY MANUAL COUNT 60 Normal [facility] Comment on above: Order Comment: Diffe rential performed on cytospin Performed By: #### L [id number] ####[facility] (AKER)[address] [place] [address] MESOTHELIAL CELLS TOTAL PER COUNTED LEUKOCYTES IN BODY FLUID BY MANUAL COUN 19 Normal [facility] Comment on above: Order Comment: Diffe rential performed on cytospin Performed By: #### L [id number] ####[facility] ([facility])[address] [place] [address] MONOCYTES+MACROPHA GES TOTAL PER COUNTED LEUKOCYTES IN BODY FLUID BY MANUAL Normal [facility] Comment on above: Order Comment: Diffe rential performed on cytospin Result Comment: Juan Carlos ected result: Previously reported as 19 (reference range: ) on 03/14/2024 at 1324 EDT. Performed By: #### L [id number] ####[facility] ([facility])[address] [place] [address] NEUTROPHILS TOTAL PER COUNTED LEUKOCYTES IN BODY FLUID BY MANUAL COUNT 17 Normal [facility] Comment on above: Order Comment: Diffe rential performed on cytospin Performed By: #### L [id number] ####[facility] ([place])[address] [place] [address] OTHER CELLS BODY FLUID (MANUAL) [facility] Comment on above: Order Comment: Diffe rential performed on cytospin Performed By: #### L [id number] ####[facility] (AKER)[address] [place] [address] BODY FLUID CULTUREon 2 024 Bacteria identified Cx Nom (Unsp spec) No growth at 5 days [facility] Comment on above: Performed By: #### L [id number] ####[facility] ([facility] [place] [address] GRAM STAIN RESULT Normal [facility] Comment on above: Result Comment: Cyto centrifuge samplePolymorphonuclear leukocytesNo organisms seen Performed By: #### L [id number] ####[facility] (BEAKER)[address] [place] [address] CBC WITH AUTO DIFFERENTIALon 03-14-2024 Erythrocyte distribution width (RBC) [Ratio] 18.5 % High 11.5-15.0 [facility] Comment on above: Performed By: #### L [id number] ####[facility] ([facility] [place] [address] ERYTHROCYTE MEAN CORPUSCULAR HEMOGLOBIN CONCENTRATION (G/DL) BY AUTOMATED 28.9 g/dL Low 32.0-35.0 [facility] Comment on above: Performed By: #### L [id number] ####[facility] ([facility])[address] [place] [address] Hematocrit (Bld) [Volume fraction] 28.4 % Low 36.0-48.0 [facility] Comment on above: Performed By: #### L [id number] ####[facility] ([facility])[address] [place] [address] Hemoglobin (Bld) [Mass/Vol] 8.2 g/dL Low 12.0-15.0 [facility] Comment on above: Performed By: #### L [id number] ####[facility] ([facility])[address] [place] [address] MCH (RBC) [Entitic mass] 22.0 pg Low 27.0-33.0 [facility] Comment on above: Performed By: #### L [id number] ####[facility] ([facility])[address] [place] [address] MCV (RBC) [Entitic vol] 76.1 fL Low 82.0-98.0 [facility] Comment on above: Performed By: #### L [id number] ####[facility] ([facility])[address] [place] [address] NRBC (PER 100 WBCS) BY AUTOMATED COUNT 0.0 % Normal 0 [facility] Comment on above: Performed By: #### L [id number] ####[facility] ([facility])[address] [place] [address] PLATELETS (10*3/UL) IN BLOOD AUTOMATED COUNT 323 10*3/uL Normal 150-400 [facility] Comment on above: Performed By: #### L [id number] ####[facility] ([facility])[address] [place] [address] RBC (Bld) [#/Vol] 3.73 10*6/uL Low 3.80-5.00 [facility] Comment on above: Performed By: #### L [id number] ####[facility] ([facility])[address] [place] [address] WBC (Bld) [#/Vol] 9.81 10*3/uL Normal 4.00-10.60 [facility] Comment on above: Performed By: #### L [id number] ####[facility] ([facility])[address] [place] [address] COMPREHENSIVE METABOLIC PANE Robbie 03-14-2024 Albumin [Mass/Vol] 2.9 g/dL Low 3.5-5.7 [facility] Comment on above: Performed By: #### L [id number] ####[facility] ([facility])[address] [place] [address] ALP [Catalytic activity/Vol] 63 U/L Normal 34-104 [facility] Comment on above: Performed By: #### L [id number] ####[facility] ([facility])[address] [place] [address] ALT [Catalytic activity/Vol] 61 U/L High 7-52 [facility] Comment on above: Performed By: #### L [id number] ####[facility] ([facility])[address] [place] [address] Anion gap [Moles/Vol] 11 mmol/L Normal 7-20 [facility] Comment on above: Performed By: #### L [id number] ####[facility] ([facility])[address] [place] [address] AST [Catalytic activity/Vol] 19 U/L Normal 13-39 [facility] Comment on above: Performed By: #### L [id number] ####[facility] (BEAKER)[address] [place] [address] Bilirubin [Mass/Vol] 0.3 mg/dL Normal 0.3-1.0 [facility] Comment on above: Performed By: #### L [id number] ####[facility] (BEAKER)[address] [place] [address] Calcium [Mass/Vol] 8.1 mg/dL Low 8.6-10.3 [facility] Comment on above: Performed By: #### L [id number] ####[facility] (BEAKER)[address] [place] [address] Chloride [Moles/Vol] 96 mmol/L Low 98-107 [facility] Comment on above: Performed By: #### L [id number] ####[facility] (BEAKER)[address] [place] [address] CO2 [Moles/Vol] 29 mmol/L Normal 21-31 [facility] Comment on above: Performed By: #### L [id number] ####[facility] (BEAKER)[address] [place] [address] Creatinine [Mass/Vol] 0.67 mg/dL Normal 0.60-1.20 [facility] Comment on above: Performed By: #### L [id number] ####[facility] (BEAKER)[address] [place] [address] GLOMERULAR FILTRATION RATE ML/MIN/1.73 SQ M.PREDICTED 85.1 mL/min/1.73m*2 Normal >60.0 [facility] Comment on above: Result Comment: The [facility]???s estimated glomerular filtration rate (eGFR) will [...] of individuals. Performed By: #### L [id number] ####[facility] ([facility])[address] [place] [address] Glucose [Mass/Vol] 108 mg/dL High 70-100 [facility] Comment on above: Performed By: #### L [id number] ####[facility] ([facility])[address] [place] [address] Potassium [Moles/Vol] 3.3 mmol/L Low 3.5-5.1 [facility] Comment on above: Performed By: #### L [id number] ####[facility] ([facility])[address] [place] [address] Protein [Mass/Vol] 5.8 g/dL Low 6.0-8.3 [facility] Comment on above: Performed By: #### L [id number] ####[facility] ([facility])[address] [place] [address] Sodium [Moles/Vol] 133 mmol/L Low 136-145 [facility] Comment on above: Performed By: #### L [id number] ####[facility] ([facility])[address] [place] [address] Urea nitrogen [Mass/Vol] 16 mg/dL Normal 7-25 [facility] Comment on above: Performed By: #### L [id number] ####[facility] ([facility])[address] [place] [address] UREA NITROGEN/CREATININ E (MASS RATIO) IN SER/PLAS 23.9 Normal [facility] Comment on above: Performed By: #### L [id number] ####[facility] ([facility])[address] [place] [address] GLUCOSE, BODY FLUIDon 2023 GLUCOSE (MG/DL) IN BODY FLUID 115 mg/dL Normal [facility] Comment on above: Result Comment: The reference range and other method performance specifications have not been established for this test in fluids. the test result should be integrated into the clinical context for interpretation. Performed By: #### L [id number] ####[facility] ([facility])[address] [place] [address] LACTATE DEHYDROGENASEon 02-14 LACTATE DEHYDROGENASE (U/L) IN SER/PLAS BY LAC->PYR RXN 198 U/L Normal 140-271 [facility] Comment on above: Performed By: #### L [id number] ####[facility] ([facility])[address] [place] [address] LACTATE DEHYDROGENASE, BODY FLUIDon 03-14-2024 LACTATE DEHYDROGENASE (U/L) IN BODY FLUID BY LAC->PYR 184 U/L Normal [facility] Comment on above: Result Comment: The reference range and other method performance specifications have not been established for this test in fluids. the test result should be integrated into the clinical context for interpretation. Performed By: #### L [id number] ####[facility] ([facility])[address] [place] [address] MANUAL DIFFERENTIALon 2023 ANISOCYTOSIS PRESENCE IN BLOOD BY LIGHT MICROSCOPY Moderate Normal [facility] Comment on above: Performed By: #### L [id number] ####[facility] ([facility])[address] [place] [address] BASOPHILS (10*3/UL) IN BLOOD BY CALCULATION 0.05 10*3/uL Normal 0.00-0.20 [facility] Comment on above: Performed By: #### L [id number] ####[facility] ([facility])[address] [place] [address] BASOPHILS/100 LEUKOCYTES IN BLOOD BY AUTOMATED COUNT 0.5 % Normal 0.0-1.0 [facility] Comment on above: Performed By: #### L [id number] ####[facility] ([facility])[address] [place] [address] EOSINOPHILS (10*3/UL) IN BLOOD BY CALCULATION 0.32 10*3/uL Normal 0.00-0.50 [facility] Comment on above: Performed By: #### L [id number] ####[facility] ([facility])[address] [place] [address] EOSINOPHILS/100 LEUKOCYTES IN BLOOD BY AUTOMATED COUNT 3.3 % Normal 0.0-6.0 [facility] Comment on above: Performed By: #### L [id number] ####[facility] ([facility])[address] [place] [address] IMMATURE GRANULOCYTES (10*3/UL) IN BLOOD BY CALCULATION 0.15 10*3/uL Normal 0.00-0.20 [facility] Comment on above: Performed By: #### L [id number] ####[facility] ([facility])[address] [place] [address] IMMATURE GRANULOCYTES/100 LEUKOCYTES IN BLOOD BY AUTOMATED COUNT 1.5 % High 0.0-1.0 [facility] Comment on above: Performed By: #### L [id number] ####[facility] ([facility])[address] [place] [address] LYMPHOCYTES (10*3/UL) IN BLOOD BY CALCULATION 1.75 10*3/uL Normal 1.20-4.00 [facility] Comment on above: Performed By: #### L [id number] ####[facility] ([facility])[address] [place] [address] LYMPHOCYTES/100 LEUKOCYTES IN BLOOD BY AUTOMATED COUNT 17.8 % Low 20.0-45.0 [facility] Comment on above: Performed By: #### L [id number] ####[facility] ([facility])[address] [place] [address] MONOCYTES (10*3/UL) IN BLOOD BY CALCUATION 1.11 10*3/uL High 0.10-1.00 [facility] Comment on above: Performed By: #### L [id number] ####[facility] ([facility])[address] [place] [address] MONOCYTES/100 LEUKOCYTES IN BLOOD BY AUTOMATED COUNT 11.3 % Normal 5.0-12.0 [facility] Comment on above: Performed By: #### L [id number] ####[facility] ([facility])[address] [place] [address] NEUTROPHILS (10*3/UL) IN BLOOD BY CALCULATION 6.4 10*3/uL Normal 1.6-7.6 [facility] Comment on above: Performed By: #### L [id number] ####[facility] ([facility])[address] [facility] [place] [address] NEUTROPHILS/100 LEUKOCYTES IN BLOOD BY AUTOMATED COUNT 65.6 % Normal 40.0-72.0 [facility] Comment on above: Performed By: #### L [id number] ####[facility] ([facility])[address] [place] [address] POIKILOCYTOSIS (PRESENCE) IN BLOOD BY LIGHT MICROSCOPY Slight Normal [facility] Comment on above: Performed By: #### L [id number] ####[facility] ([facility])[address] [facility] [place] [address] POLYCHROMASIA IN BLOOD BY LIGHT MICROSCOPY Slight Normal [facility] Comment on above: Performed By: #### L [id number] ####[facility] ([facility])[address] [place] [address] NON-SENIOR NETWORK SECURITY ENGINEER CYTOLOGY - CELLULAR EXAMon 03-14-2024 LAB AP CASE REPORT Normal [facility] Comment on above: Result Comment: Non- gynecologic Cytology Case: [id number] Provider: Jami Su MD Collected: 03/14/2024 0930Ordering Location: [facility] Received: 03/14/2024 1132Pathologist: STEVEN Umañapecimen: Pleural fluid, right Performed By: #### L [id number] ####[facility] (BEAKER)[address] [place] [address] LAB AP CLINICAL INFORMATION Normal [facility] Comment on above: Result Comment: Post -Op DiagnosesNo Dx found. Performed By: #### L [id number] ####[facility] (BEAKER)[address] [facility] [place] [address] LAB AP GROSS DESCRIPTION Normal [facility] Comment on above: Result Comment: 45 m L cloudy, red fluid. Performed By: #### L [id number] ####[facility] (BEAKER)[address] [place] [address] LAB AP REPORT FINAL DIAGNOSIS NARRATIVE Normal [facility] Comment on above: Result Comment: A. P leural fluid, right: - Negative for malignancy. - Chronic inflammation. Performed By: #### L [id number] ####[facility] ([facility])[address] [place] [address] PATHOLOGY REVIEWon PATHOLOGY REVIEW Reviewed. Normal [facility] Comment on above: Result Comment: Elec tronically signed by Harjit Castellon MD on 03/15/24 at 7:58 AM. Performed By: #### L [id number] ####[facility] ([facility])[address] [place] [address] PH PLEURAL FLUID, RESPIRATOR Yon 03-14-2024 PH PLEURAL FLUID 7.[address] [facility] Comment on above: Order Comment: The r eference range and other method performance specifications are unavailable for this body fluid. Interpretation nust be done by physician in conjunction with the clinical situation. ???This test was developed and its performance characteristics determined by [facility]. ???It has not been cleared or approved by the FDA. ???The laboratory is regulated under CLIA as qualified to perform moderately complexity testing. ???This test is used for clinical purposes. ???It should not be regarded as investigational or for research. Performed By: #### L [id number] ####[facility] [id number] [place] [address] [place] POCT GLUCOSE METER UNSOLICIT ED RESULTSon 03-14-2024 Glucose [Mass/Vol] 108 mg/dL High 70-105 [facility] Comment on above: Order Comment: Waive d Testing in the ED is performed under the ED CLIA certificate #[id number]. Result Comment: dcun dic Performed By: #### L [id number] ####[facility] (BEAKER)[address] [place] [address] Glucose [Mass/Vol] 111 mg/dL High 70-105 [facility] Comment on above: Order Comment: Waive d Testing in the ED is performed under the ED CLIA certificate #[id number]. Result Comment: dcun dic Performed By: #### L [id number] ####[facility] ([facility])[address] [place] [address] Glucose [Mass/Vol] 128 mg/dL High 70-105 [facility] Comment on above: Order Comment: Waive d Testing in the ED is performed under the ED CLIA certificate #[id number]. Result Comment: [email or web address] Performed By: #### L [id number] ####[facility] ([facility])[address] [place] [address] PROTEIN, BODY FLUIDon 2023 Protein (Body fld) [Mass/Vol] 3.8 g/dL Normal [facility] Comment on above: Result Comment: The reference range and other method performance specifications have not been established for this test in fluids. the test result should be integrated into the clinical context for interpretation. Performed By: #### L [id number] ####[facility] ([facility])[address] [place] [address] PROTEIN, TOTALon 03-14-2024 Protein [Mass/Vol] 5.7 g/dL Low 6.0-8.3 [facility] Comment on above: Performed By: #### L [id number] ####[facility] ([facility])[address] [place] [address] TRIGLYCERIDES, BODY FLUIDon 03-14-2024 TRIGLYCERIDES (MG/DL) IN BODY FLUID 30 mg/dL Normal [facility] Comment on above: Performed By: #### L [id number] ####[facility] ([facility])[address] [place] [address] 30on 03-13-2024 30 Normal [facility] 30 Normal [facility] 30 Normal [facility] 30 Normal [facility] AFB CULTUREon 03-13-2024 AFB CULTURE No growth at 21 days [facility] Comment on above: Performed By: #### L [id number] ####[facility] ([facility])[address] [place] [address] AFB STAIN No acid fast bacilli seen [facility] Comment on above: Performed By: #### L [id number] ####[facility] ([facility])[address] [place] [address] ANESon 03-13-2024 ANES Normal [facility] APTTon 03-13-2024 ACTIVATED PARTIAL THROMBOPLASTIN TIME IN PPP BY COAGULATION ASSAY 45.9 Seconds High 25.0-35.0 [facility] Comment on above: Result Comment: Clin ical significance of the APTT is questionable in the presence of heparin. Performed By: #### L [id number] ####[facility] ([facility])[address] [place] [address] BODY FLUID CELL DIFFERENTIAL on 03-13-2024 BASOPHILS TOTAL PER COUNTED LEUKOCYTES IN BODY FLUID BY MANUAL COUNT [facility] Comment on above: Order Comment: Diffe rential performed on cytospin Performed By: #### L [id number] ####[facility] ([facility])[address] [place] [address] CELLS COUNTED TOTAL (#) IN BODY FLUID 100 Normal [facility] Comment on above: Order Comment: Diffe rential performed on cytospin Performed By: #### L [id number] ####[facility] ([facility])[address] [place] [address] EOSINOPHILS TOTAL PER COUNTED LEUKOCYTES IN BODY FLUID BY MANUAL COUNT 4 Normal [facility] Comment on above: Order Comment: Diffe rential performed on cytospin Performed By: #### L [id number] ####[facility] ([facility])[address] [place] [address] LYMPHOCYTES TOTAL PER COUNTED LEUKOCYTES IN BODY FLUID BY MANUAL COUNT 4 Normal [facility] Comment on above: Order Comment: Diffe rential performed on cytospin Performed By: #### L [id number] ####[facility] ([facility])[address] [facility] [place] [address] MESOTHELIAL CELLS TOTAL PER COUNTED LEUKOCYTES IN BODY FLUID BY MANUAL COUN Normal [facility] Comment on above: Order Comment: Diffe rential performed on cytospin Performed By: #### L [id number] ####[facility] ([facility])[address] [facility] [place] [address] MONOCYTES+MACROPHA GES TOTAL PER COUNTED LEUKOCYTES IN BODY FLUID BY MANUAL Normal [facility] Comment on above: Order Comment: Diffe rential performed on cytospin Performed By: #### L [id number] ####[facility] ([facility])[address] [place] [address] NEUTROPHILS TOTAL PER COUNTED LEUKOCYTES IN BODY FLUID BY MANUAL COUNT 92 Normal [facility] Comment on above: Order Comment: Diffe rential performed on cytospin Performed By: #### L [id number] ####[facility] ([facility])[address] [place] [address] OTHER CELLS BODY FLUID (MANUAL) Normal [facility] Comment on above: Order Comment: Diffe rential performed on cytospin Performed By: #### L [id number] ####[facility] ([facility])[address] [facility] [place] [address] BODY FLUID CULTUREon 024 Bacteria identified Cx Nom (Unsp spec) No growth at 5 days Normal [facility] Comment on above: Performed By: #### L [id number] ####[facility] [place] [address] GRAM STAIN RESULT Normal [facility] Comment on above: Result Comment: Poly morphonuclear leukocytesNo organisms seenCytocentrifuge sample Performed By: #### L [id number] ####[facility] ([facility])[address] [place] [address] C-REACTIVE PROTEINon 024 C REACTIVE PROTEIN (MG/L) IN SER/PLAS 42.9 mg/L High 0.0-7.0 [facility] Comment on above: Performed By: #### L [id number] ####[facility] [place] [address] CBC WITH AUTO DIFFERENTIALon 03-13-2024 Basophils (Bld) [#/Vol] 0.04 10*3/uL Normal 0.00-0.20 [facility] Comment on above: Performed By: #### L [id number] ####[facility] (BEAKER)[address] [place] [address] Basophils/100 WBC (Bld) 0.4 % Normal 0.0-1.0 [facility] Comment on above: Performed By: #### L [id number] ####[facility] (BEAKER)[address] [place] [address] Eosinophils (Bld) [#/Vol] 0.22 10*3/uL Normal 0.00-0.50 [facility] Comment on above: Performed By: #### L [id number] ####[facility] (BEAKER)[address] [place] [address] Eosinophils/100 WBC (Bld) 2.4 % Normal 0.0-6.0 [facility] Comment on above: Performed By: #### L [id number] ####[facility] ([facility])[address] [place] [address] Erythrocyte distribution width (RBC) [Ratio] 18.4 % High 11.5-15.0 [facility] Comment on above: Performed By: #### L [id number] ####[facility] ([facility])[address] [place] [address] ERYTHROCYTE MEAN CORPUSCULAR HEMOGLOBIN CONCENTRATION (G/DL) BY AUTOMATED 29.2 g/dL Low 32.0-35.0 [facility] Comment on above: Performed By: #### L [id number] ####[facility] LAB (BEAKER)[address] [place] [address] Hematocrit (Bld) [Volume fraction] 31.2 % Low 36.0-48.0 [facility] Comment on above: Performed By: #### L [id number] ####[facility] LAB (BEAKER)[address] [place] [address] Hemoglobin (Bld) [Mass/Vol] 9.1 g/dL Low 12.0-15.0 [facility] Comment on above: Performed By: #### L [id number] ####[facility] LAB (BEAKER)[address] [place] [address] Immature granulocytes (Bld) [#/Vol] 0.13 10*3/uL Normal 0.00-0.20 [facility] Comment on above: Performed By: #### L [id number] ####[facility] LAB (BEAKER)[address] [place] [address] Immature granulocytes/100 WBC (Bld) 1.4 % High 0.0-1.0 [facility] Comment on above: Performed By: #### L [id number] ####[facility] LAB (BEAKER)[address] [place] [address] Lymphocytes (Bld) [#/Vol] 1.35 10*3/uL Normal 1.20-4.00 [facility] Comment on above: Performed By: #### L [id number] ####[facility] LAB (BEAKER)[address] [place] [address] Lymphocytes/100 WBC (Bld) 14.5 % Low 20.0-45.0 [facility] Comment on above: Performed By: #### L [id number] ####[facility] LAB (BEAKER)[address] [place] [address] MCH (RBC) [Entitic mass] 22.0 pg Low 27.0-33.0 [facility] Comment on above: Performed By: #### L [id number] ####[facility] LAB (BEAKER)[address] [place] [address] MCV (RBC) [Entitic vol] 75.4 fL Low 82.0-98.0 [facility] Comment on above: Performed By: #### L [id number] ####[facility] LAB (BEAKER)[address] [place] [address] Monocytes (Bld) [#/Vol] 0.82 10*3/uL Normal 0.10-1.00 [facility] Comment on above: Performed By: #### L [id number] ####[facility] LAB ([facility])[address] [place] [address] Monocytes/100 WBC (Bld) 8.8 % Normal 5.0-12.0 [facility] Comment on above: Performed By: #### L [id number] ####[facility] LAB ([facility])[address] [place] [address] Neutrophils (Bld) [#/Vol] 6.75 10*3/uL Normal 1.60-7.60 [facility] Comment on above: Performed By: #### L [id number] ####[facility] LAB ([facility])[address] [place] [address] Neutrophils/100 WBC (Bld) 72.5 % High 40.0-72.0 [facility] Comment on above: Performed By: #### L [id number] ####[facility] LAB ([facility])[address] [place] [address] NRBC (PER 100 WBCS) BY AUTOMATED COUNT 0.0 % Normal 0 [facility] Comment on above: Performed By: #### L [id number] ####[facility] LAB ([facility])[address] [place] [address] PLATELETS (10*3/UL) IN BLOOD AUTOMATED COUNT 340 10*3/uL Normal 150-400 [facility] Comment on above: Performed By: #### L [id number] ####[facility] LAB ([facility])[address] [place] [address] RBC (Bld) [#/Vol] 4.14 10*6/uL Normal 3.80-5.00 [facility] Comment on above: Performed By: #### L [id number] ####[facility] LAB ([facility])[address] [place] [address] WBC (Bld) [#/Vol] 9.31 10*3/uL Normal 4.00-10.60 [facility] Comment on above: Performed By: #### L [id number] ####[facility] ([facility] [place] [address] COMPREHENSIVE METABOLIC PANE Robbie 03-13-2024 Albumin [Mass/Vol] 3.2 g/dL Low 3.5-5.7 [facility] Comment on above: Performed By: #### L [id number] ####[facility] ([facility])[address] [place] [address] ALP [Catalytic activity/Vol] 73 U/L Normal 34-104 [facility] Comment on above: Performed By: #### L [id number] ####[facility] ([facility])[address] [place] [address] ALT [Catalytic activity/Vol] 91 U/L High 7-52 [facility] Comment on above: Performed By: #### L [id number] ####[facility] ([facility])[address] [place] [address] Anion gap [Moles/Vol] 12 mmol/L Normal 7-20 [facility] Comment on above: Performed By: #### L [id number] ####[facility] ([facility])[address] [place] [address] AST [Catalytic activity/Vol] 22 U/L Normal 13-39 [facility] Comment on above: Performed By: #### L [id number] ####[facility] ([facility])[address] [place] [address] Bilirubin [Mass/Vol] 0.5 mg/dL Normal 0.3-1.0 [facility] Comment on above: Performed By: #### L [id number] ####[facility] ([facility])[address] [place] [address] Calcium [Mass/Vol] 8.3 mg/dL Low 8.6-10.3 [facility] Comment on above: Performed By: #### L [id number] ####[facility] ([facility])[address] [place] [address] Chloride [Moles/Vol] 93 mmol/L Low 98-107 [facility] Comment on above: Performed By: #### L [id number] ####[facility] ([facility])[address] [place] [address] CO2 [Moles/Vol] 31 mmol/L Normal 21-31 [facility] Comment on above: Performed By: #### L [id number] ####[facility] ([facility])[address] [place] [address] Creatinine [Mass/Vol] 0.73 mg/dL Normal 0.60-1.20 [facility] Comment on above: Performed By: #### L [id number] ####[facility] ([facility])[address] [place] [address] GLOMERULAR FILTRATION RATE ML/MIN/1.73 SQ M.PREDICTED 80.0 mL/min/1.73m*2 Normal >60.0 [facility] Comment on above: Result Comment: The [facility]???s estimated glomerular filtration rate (eGFR) will [...] of individuals. Performed By: #### L [id number] ####[facility] ([facility])[address] [place] [address] Glucose [Mass/Vol] 161 mg/dL High 70-100 [facility] Comment on above: Performed By: #### L [id number] ####[facility] ([facility])[address] [place] [address] Potassium [Moles/Vol] 3.1 mmol/L Low 3.5-5.1 [facility] Comment on above: Performed By: #### L [id number] ####[facility] ([facility])[address] [place] [address] Protein [Mass/Vol] 6.5 g/dL Normal 6.0-8.3 [facility] Comment on above: Performed By: #### L [id number] ####[facility] LAB (BEAKER)[address] [place] [address] Sodium [Moles/Vol] 133 mmol/L Low 136-145 [facility] Comment on above: Performed By: #### L [id number] ####[facility] ([facility])[address] [place] [address] Urea nitrogen [Mass/Vol] 18 mg/dL Normal 7-25 [facility] Comment on above: Performed By: #### L [id number] ####[facility] ([facility])[address] [place] [address] UREA NITROGEN/CREATININ E (MASS RATIO) IN SER/PLAS 24.7 Normal [facility] Comment on above: Performed By: #### L [id number] ####[facility] LAB ([facility])[address] [place] [address] HPon 03-13-2024 HP Normal [facility] NON-SENIOR NETWORK SECURITY ENGINEER CYTOLOGY - CELLULAR EXAMon 03-13-2024 LAB AP CASE REPORT Normal [facility] Comment on above: Result Comment: Non- gynecologic Cytology Case: [id number] Provider: Jami Su MD Collected: 03/13/2024 1229Ordering Location: [facility] Received: 03/14/2024 0805Pathologist: STEVEN Umañapecimen: Peritoneal fluid Performed By: #### L [id number] ####[facility] LAB ([facility])[address] [place] [address] LAB AP CLINICAL INFORMATION Normal [facility] Comment on above: Result Comment: Post -Op DiagnosesNo Dx found. Performed By: #### L [id number] ####[facility] LAB (BEAKER)[address] [place] [address] LAB AP GROSS DESCRIPTION Normal [facility] Comment on above: Result Comment: 300 mL cloudy, red fluid. Performed By: #### L [id number] ####[facility] LAB ([facility])[address] [facility] [place] [address] LAB AP REPORT FINAL DIAGNOSIS NARRATIVE [facility] Comment on above: Result Comment: A. P eritoneal fluid: - Negative for malignancy. - Marked acute inflammation. Performed By: #### L [id number] ####[facility] LAB ([facility])[address] [email or web address] [address] NURSNOTEon 03-13-2024 NURSNOTE [facility] PATHOLOGY REVIEWon PATHOLOGY REVIEW Reviewed. Normal [facility] Comment on above: Result Comment: Elec tronically signed by Harjit Castellon MD on 03/14/24 at 10:44 AM. Performed By: #### L [id number] ####[facility] LAB ([facility])[address] [email or web address] [address] POCT GLUCOSE METER UNSOLICIT ED RESULTSon 03-13-2024 Glucose [Mass/Vol] 131 mg/dL High 70-105 [facility] Comment on above: Order Comment: Waive d Testing in the ED is performed under the ED CLIA certificate #[id number]. Result Comment: [email or web address] Performed By: #### L [id number] ####[facility] ([facility])[address] [email or web address] [address] Glucose [Mass/Vol] 110 mg/dL High 70-105 [facility] Comment on above: Order Comment: Waive d Testing in the ED is performed under the ED CLIA certificate #[id number]. Result Comment: [email or web address] Performed By: #### L [id number] ####[facility] LAB ([facility])[address] [email or web address] [address] Glucose [Mass/Vol] 120 mg/dL High 70-105 [facility] Comment on above: Order Comment: Waive d Testing in the ED is performed under the ED CLIA certificate #[id number]. Result Comment: [email or web address] Performed By: #### L [id number] ####[facility] LAB ([employer])[address] [place] [address] PROTIME-INRon 03-13-2024 INR IN PPP BY COAGULATION ASSAY 1.48 High 0.90-1.10 [facility] Comment on above: Result Comment: ACCC P RECOMMENDED INR FOR WARFARIN THERAPY CONDITION INRPROPHYLAXIS OF VENOUS THROMBOSIS 2-3(HIGH-RISK SURGERY)TREATMENT OF VENOUS THROMBOSIS 2-3TREATMENT OF PULMONARY EMBOLISM 2-3PREVENTION OF SYSTEMIC EMBOLISM: 2-3 ACUTE MYOCARDIAL INFARCTION TISSUE HEART VALVES VALVULAR HEART DISEASE ATRIAL FIBRILLATION RECURRENT SYSTEMIC EMBOLISMMECHANICAL HEART VALVE 2.5-3.5 FROM: ORAL ANTICOAGULANTS. MECHANISM OF ACTION, CLINICAL EFFECTIVENESS, AND OPTIMAL THERAPEUTIC RANGE. CHEST 1995;108:231S-246S. Performed By: #### L [id number] ####[facility] LAB ([employer])[address] [place] [address] PROTHROMBIN TIME (PT) IN PPP BY COAGULATION ASSAY 17.8 Seconds High 12.3-14.8 [facility] Comment on above: Performed By: #### L [id number] ####[facility] LAB ([employer])[address] [place] [address] 30on 03-12-2024 30 Normal [facility] 30 Normal [facility] 30 Normal [facility] CBC WITH AUTO DIFFERENTIALon 03-12-2024 Basophils (Bld) [#/Vol] 0.05 10*3/uL Normal 0.00-0.20 [facility] Comment on above: Performed By: #### L [id number] ####[facility] LAB (BEAKER)[address] [place] [address] Basophils/100 WBC (Bld) 0.5 % Normal 0.0-1.0 [facility] Comment on above: Performed By: #### L [id number] ####[facility] LAB (BEAKER)[address] [place] [address] Eosinophils (Bld) [#/Vol] 0.28 10*3/uL Normal 0.00-0.50 [facility] Comment on above: Performed By: #### L [id number] ####[facility] LAB (BEAKER)[address] [place] [address] Eosinophils/100 WBC (Bld) 3.1 % Normal 0.0-6.0 [facility] Comment on above: Performed By: #### L [id number] ####[facility] ([facility])[address] [place] [address] Erythrocyte distribution width (RBC) [Ratio] 18.3 % High 11.5-15.0 [facility] Comment on above: Performed By: #### L [id number] ####[facility] LAB (BEAKER)[address] [place] [address] ERYTHROCYTE MEAN CORPUSCULAR HEMOGLOBIN CONCENTRATION (G/DL) BY AUTOMATED 29.3 g/dL Low 32.0-35.0 [facility] Comment on above: Performed By: #### L [id number] ####[facility] LAB (BEAKER)[address] [place] [address] Hematocrit (Bld) [Volume fraction] 29.4 % Low 36.0-48.0 [facility] Comment on above: Performed By: #### L [id number] ####[facility] LAB (BEAKER)[address] [place] [address] Hemoglobin (Bld) [Mass/Vol] 8.6 g/dL Low 12.0-15.0 [facility] Comment on above: Performed By: #### L [id number] ####[facility] LAB (BEAKER)[address] [place] [address] Immature granulocytes (Bld) [#/Vol] 0.08 10*3/uL Normal 0.00-0.20 [facility] Comment on above: Performed By: #### L [id number] ####[facility] LAB (BEAKER)[address] [place] [address] Immature granulocytes/100 WBC (Bld) 0.9 % Normal 0.0-1.0 [facility] Comment on above: Performed By: #### L [id number] ####[facility] LAB (BEAKER)[address] [place] [address] Lymphocytes (Bld) [#/Vol] 2.23 10*3/uL Normal 1.20-4.00 [facility] Comment on above: Performed By: #### L [id number] ####[facility] LAB (BEAKER)[address] [place] [address] Lymphocytes/100 WBC (Bld) 24.5 % Normal 20.0-45.0 [facility] Comment on above: Performed By: #### L [id number] ####[facility] LAB (BEAKER)[address] [place] [address] MCH (RBC) [Entitic mass] 22.3 pg Low 27.0-33.0 [facility] Comment on above: Performed By: #### L [id number] ####[facility] LAB (BEAKER)[address] [place] [address] MCV (RBC) [Entitic vol] 76.2 fL Low 82.0-98.0 [facility] Comment on above: Performed By: #### L [id number] ####[facility] LAB (BEAKER)[address] [place] [address] Monocytes (Bld) [#/Vol] 1.01 10*3/uL High 0.10-1.00 [facility] Comment on above: Performed By: #### L [id number] ####[facility] LAB (BEAKER)[address] [place] [address] Monocytes/100 WBC (Bld) 11.1 % Normal 5.0-12.0 [facility] Comment on above: Performed By: #### L [id number] ####[facility] ([facility])[address] [place] [address] Neutrophils (Bld) [#/Vol] 5.45 10*3/uL Normal 1.60-7.60 [facility] Comment on above: Performed By: #### L [id number] ####[facility] ([facility])[address] [place] [address] Neutrophils/100 WBC (Bld) 59.9 % Normal 40.0-72.0 [facility] Comment on above: Performed By: #### L [id number] ####[facility] LAB ([facility])[address] [place] [address] NRBC (PER 100 WBCS) BY AUTOMATED COUNT 0.0 % Normal 0 [facility] Comment on above: Performed By: #### L [id number] ####[facility] ([facility])[address] [place] [address] PLATELETS (10*3/UL) IN BLOOD AUTOMATED COUNT 363 10*3/uL Normal 150-400 [facility] Comment on above: Performed By: #### L [id number] ####[facility] ([facility])[address] [place] [address] RBC (Bld) [#/Vol] 3.86 10*6/uL Normal 3.80-5.00 [facility] Comment on above: Performed By: #### L [id number] ####[facility] LAB (BEAKER)[address] [place] [address] WBC (Bld) [#/Vol] 9.10 10*3/uL Normal 4.00-10.60 [facility] Comment on above: Performed By: #### L [id number] ####[facility] LAB (BEAKER)[address] [place] [address] COMPREHENSIVE METABOLIC PANE Robbie 03-12-2024 Albumin [Mass/Vol] 3.0 g/dL Low 3.5-5.7 [facility] Comment on above: Performed By: #### L [id number] ####[facility] ([facility])[address] [place] [address] ALP [Catalytic activity/Vol] 67 U/L Normal 34-104 [facility] Comment on above: Performed By: #### L [id number] ####[facility] ([facility])[address] [place] [address] ALT [Catalytic activity/Vol] 138 U/L High 7-52 [facility] Comment on above: Performed By: #### L [id number] ####[facility] ([facility])[address] [place] [address] Anion gap [Moles/Vol] 10 mmol/L Normal 7-20 [facility] Comment on above: Performed By: #### L [id number] ####[facility] ([facility])[address] [place] [address] AST [Catalytic activity/Vol] 43 U/L High 13-39 [facility] Comment on above: Performed By: #### L [id number] ####[facility] ([facility])[address] [place] [address] Bilirubin [Mass/Vol] 0.5 mg/dL Normal 0.3-1.0 [facility] Comment on above: Performed By: #### L [id number] ####[facility] ([facility])[address] [place] [address] Calcium [Mass/Vol] 8.3 mg/dL Low 8.6-10.3 [facility] Comment on above: Performed By: #### L [id number] ####[facility] ([facility])[address] [place] [address] Chloride [Moles/Vol] 94 mmol/L Low 98-107 [facility] Comment on above: Performed By: #### L [id number] ####[facility] ([facility])[address] [place] [address] CO2 [Moles/Vol] 33 mmol/L High 21-31 [facility] Comment on above: Performed By: #### L [id number] ####[facility] ([facility])[address] [place] [address] Creatinine [Mass/Vol] 0.75 mg/dL Normal 0.60-1.20 [facility] Comment on above: Performed By: #### L [id number] ####[facility] ([facility])[address] [place] [address] GLOMERULAR FILTRATION RATE ML/MIN/1.73 SQ M.PREDICTED 77.5 mL/min/1.73m*2 Normal >60.0 [facility] Comment on above: Result Comment: The [facility]???s estimated glomerular filtration rate (eGFR) will [...] of individuals. Performed By: #### L [id number] ####[facility] ([facility])[address] [place] [address] Glucose [Mass/Vol] 114 mg/dL High 70-100 [facility] Comment on above: Performed By: #### L [id number] ####[facility] ([facility])[address] [place] [address] Potassium [Moles/Vol] 3.6 mmol/L Normal 3.5-5.1 [facility] Comment on above: Performed By: #### L [id number] ####[facility] ([facility])[address] [place] [address] Protein [Mass/Vol] 6.3 g/dL Normal 6.0-8.3 [facility] Comment on above: Performed By: #### L [id number] ####[facility] ([facility])[address] [place] [address] Sodium [Moles/Vol] 133 mmol/L Low 136-145 [facility] Comment on above: Performed By: #### L [id number] ####[facility] ([facility])[address] [place] [address] Urea nitrogen [Mass/Vol] 23 mg/dL Normal 7-25 [facility] Comment on above: Performed By: #### L [id number] ####[facility] ([facility])[address] [place] [address] UREA NITROGEN/CREATININ E (MASS RATIO) IN SER/PLAS 30.7 Normal [facility] Comment on above: Performed By: #### L [id number] ####[facility] ([facility])[address] [place] [address] CONSULTon 03-12-2024 CONSULT Normal [facility] POCT GLUCOSE METER UNSOLICIT ED RESULTSon 03-12-2024 Glucose [Mass/Vol] 143 mg/dL High 70-105 [facility] Comment on above: Order Comment: Waive d Testing in the ED is performed under the ED CLIA certificate #[id number]. Result Comment: [email or web address] Performed By: #### L [id number] ####[facility] ([facility])[address] [place] [address] Glucose [Mass/Vol] 126 mg/dL High 70-105 [facility] Comment on above: Order Comment: Waive d Testing in the ED is performed under the ED CLIA certificate #[id number]. Result Comment: [email or web address] Performed By: #### L [id number] ####[facility] ([facility])[address] [place] [address] Glucose [Mass/Vol] 150 mg/dL High 70-105 [facility] Comment on above: Order Comment: Waive d Testing in the ED is performed under the ED CLIA certificate #[id number]. Result Comment: [email or web address] Performed By: #### L [id number] ####[facility] ([facility] [place] [address] Glucose [Mass/Vol] 113 mg/dL High 70-105 [facility] Comment on above: Order Comment: Waive d Testing in the ED is performed under the ED CLIA certificate #[id number]. Result Comment: malathi [email or web address] Performed By: #### L [id number] ####[facility] ([facility])[address] [place] [address] Glucose [Mass/Vol] 141 mg/dL High 70-105 [facility] Comment on above: Order Comment: Waive d Testing in the ED is performed under the ED CLIA certificate #[id number]. Result Comment: malathi [email or web address] Performed By: #### L [id number] ####[facility] ([facility])[address] [place] [address] SEDIMENTATION RATEon 024 SEDIMENTATION RATE, ERYTHROCYTE 60 mm/hr High <=20 [facility] Comment on above: Performed By: #### L [id number] ####[facility] ([facility])[address] [place] [address] 30on 03-11-2024 30 Normal [facility] 30 Normal [facility] CBC WITH AUTO DIFFERENTIALon 03-11-2024 Basophils (Bld) [#/Vol] 0.03 10*3/uL Normal 0.00-0.20 [facility] Comment on above: Performed By: #### L [id number] ####[facility] [place] [address] Basophils/100 WBC (Bld) 0.3 % Normal 0.0-1.0 [facility] Comment on above: Performed By: #### L [id number] ####[facility] ([facility] [place] [address] Eosinophils (Bld) [#/Vol] 0.33 10*3/uL Normal 0.00-0.50 [facility] Comment on above: Performed By: #### L [id number] ####[facility] ([facility])[address] [place] [address] Eosinophils/100 WBC (Bld) 3.5 % Normal 0.0-6.0 [facility] Comment on above: Performed By: #### L [id number] ####[facility] ([facility])[address] [place] [address] Erythrocyte distribution width (RBC) [Ratio] 18.2 % High 11.5-15.0 [facility] Comment on above: Performed By: #### L [id number] ####[facility] ([facility] [place] [address] ERYTHROCYTE MEAN CORPUSCULAR HEMOGLOBIN CONCENTRATION (G/DL) BY AUTOMATED 29.9 g/dL Low 32.0-35.0 [facility] Comment on above: Performed By: #### L [id number] ####[facility] ([facility] [place] [address] Hematocrit (Bld) [Volume fraction] 28.4 % Low 36.0-48.0 [facility] Comment on above: Performed By: #### L [id number] ####[facility] (BEAKER)[address] [place] [address] Hemoglobin (Bld) [Mass/Vol] 8.5 g/dL Low 12.0-15.0 [facility] Comment on above: Performed By: #### L [id number] ####[facility] (BEAKER)[address] [place] [address] Immature granulocytes (Bld) [#/Vol] 0.07 10*3/uL Normal 0.00-0.20 [facility] Comment on above: Performed By: #### L [id number] ####[facility] (BEAKER)[address] [place] [address] Immature granulocytes/100 WBC (Bld) 0.7 % Normal 0.0-1.0 [facility] Comment on above: Performed By: #### L [id number] ####[facility] (BEAKER)[address] [place] [address] Lymphocytes (Bld) [#/Vol] 1.81 10*3/uL Normal 1.20-4.00 [facility] Comment on above: Performed By: #### L [id number] ####[facility] (BEAKER)[address] [place] [address] Lymphocytes/100 WBC (Bld) 19.1 % Low 20.0-45.0 [facility] Comment on above: Performed By: #### L [id number] ####[facility] (BEAKER)[address] [place] [address] MCH (RBC) [Entitic mass] 22.0 pg Low 27.0-33.0 [facility] Comment on above: Performed By: #### L [id number] ####[facility] (BEAKER)[address] [place] [address] MCV (RBC) [Entitic vol] 73.6 fL Low 82.0-98.0 [facility] Comment on above: Performed By: #### L [id number] ####[facility] (BEAKER)[address] [place] [address] Monocytes (Bld) [#/Vol] 1.25 10*3/uL High 0.10-1.00 [facility] Comment on above: Performed By: #### L [id number] ####[facility] (BEAKER)[address] [place] [address] Monocytes/100 WBC (Bld) 13.2 % High 5.0-12.0 [facility] Comment on above: Performed By: #### L [id number] ####[facility] (BEAKER)[address] [place] [address] Neutrophils (Bld) [#/Vol] 6.01 10*3/uL Normal 1.60-7.60 [facility] Comment on above: Performed By: #### L [id number] ####[facility] (BEAKER)[address] [place] [address] Neutrophils/100 WBC (Bld) 63.2 % Normal 40.0-72.0 [facility] Comment on above: Performed By: #### L [id number] ####[facility] ([facility])[address] [address] NRBC (PER 100 WBCS) BY AUTOMATED COUNT 0.0 % Normal 0 [facility] Comment on above: Performed By: #### L [id number] ####[facility] ([facility])[address] [address] PLATELETS (10*3/UL) IN BLOOD AUTOMATED COUNT 317 10*3/uL Normal 150-400 [facility] Comment on above: Performed By: #### L [id number] ####[facility] ([facility])[address] [place] [address] RBC (Bld) [#/Vol] 3.86 10*6/uL Normal 3.80-5.00 [facility] Comment on above: Performed By: #### L [id number] ####[facility] ([facility])[address] [place] [address] WBC (Bld) [#/Vol] 9.50 10*3/uL Normal 4.00-10.60 [facility] Comment on above: Performed By: #### L [id number] ####[facility] ([facility])[address] [place] [address] COMPREHENSIVE METABOLIC PANE Robbie 03-11-2024 Albumin [Mass/Vol] 3.0 g/dL Low 3.5-5.7 [facility] Comment on above: Performed By: #### L [id number] ####[facility] ([facility])[address] [place] [address] ALP [Catalytic activity/Vol] 68 U/L Normal 34-104 [facility] Comment on above: Performed By: #### L [id number] ####[facility] ([facility])[address] [place] [address] ALT [Catalytic activity/Vol] 179 U/L High 7-52 [facility] Comment on above: Performed By: #### L [id number] ####[facility] (BEAKER)[address] [place] [address] Anion gap [Moles/Vol] 11 mmol/L Normal 7-20 [facility] Comment on above: Performed By: #### L [id number] ####[facility] (BEAKER)[address] [place] [address] AST [Catalytic activity/Vol] 74 U/L High 13-39 [facility] Comment on above: Performed By: #### L [id number] ####[facility] (BEAKER)[address] [place] [address] Bilirubin [Mass/Vol] 0.4 mg/dL Normal 0.3-1.0 [facility] Comment on above: Performed By: #### L [id number] ####[facility] (BEAKER)[address] [place] [address] Calcium [Mass/Vol] 8.2 mg/dL Low 8.6-10.3 [facility] Comment on above: Performed By: #### L [id number] ####[facility] (BEAKER)[address] [place] [address] Chloride [Moles/Vol] 92 mmol/L Low 98-107 [facility] Comment on above: Performed By: #### L [id number] ####[facility] (BEAKER)[address] [place] [address] CO2 [Moles/Vol] 33 mmol/L High 21-31 [facility] Comment on above: Performed By: #### L [id number] ####[facility] (BEAKER)[address] [place] [address] Creatinine [Mass/Vol] 0.74 mg/dL Normal 0.60-1.20 [facility] Comment on above: Performed By: #### L [id number] ####[facility] (BEAKER)[address] [place] [address] GLOMERULAR FILTRATION RATE ML/MIN/1.73 SQ M.PREDICTED 78.7 mL/min/1.73m*2 Normal >60.0 [facility] Comment on above: Result Comment: The [facility]???s estimated glomerular filtration rate (eGFR) will [...] of individuals. Performed By: #### L [id number] ####[facility] ([facility])[address] [place] [address] Glucose [Mass/Vol] 91 mg/dL Normal 70-100 [facility] Comment on above: Performed By: #### L [id number] ####[facility] ([facility])[address] [place] [address] Potassium [Moles/Vol] 3.0 mmol/L Low 3.5-5.1 [facility] Comment on above: Performed By: #### L [id number] ####[facility] ([facility])[address] [place] [address] Protein [Mass/Vol] 6.3 g/dL Normal 6.0-8.3 [facility] Comment on above: Performed By: #### L [id number] ####[facility] ([facility])[address] [facility] [place] [address] Sodium [Moles/Vol] 133 mmol/L Low 136-145 [facility] Comment on above: Performed By: #### L [id number] ####[facility] ([facility])[address] [place] [address] Urea nitrogen [Mass/Vol] 26 mg/dL High 7-25 [facility] Comment on above: Performed By: #### L [id number] ####[facility] ([facility])[address] [place] [address] UREA NITROGEN/CREATININ E (MASS RATIO) IN SER/PLAS 35.1 Normal [facility] Comment on above: Performed By: #### L [id number] ####[facility] ([facility])[address] [place] [address] HEMOGLOBIN AND HEMATOCRIT, B LOODon 03-11-2024 Hematocrit (Bld) [Volume fraction] 28.2 % Low 36.0-48.0 [facility] Comment on above: Performed By: #### L [id number] ####[facility] ([facility])[address] [place] [address] Hemoglobin (Bld) [Mass/Vol] 8.6 g/dL Low 12.0-15.0 [facility] Comment on above: Performed By: #### L [id number] ####[facility] ([facility])[address] [place] [address] Hematocrit (Bld) [Volume fraction] 29.4 % Low 36.0-48.0 [facility] Comment on above: Performed By: #### L [id number] ####[facility] ([facility])[address] [place] [address] Hemoglobin (Bld) [Mass/Vol] 8.6 g/dL Low 12.0-15.0 [facility] Comment on above: Performed By: #### L [id number] ####[facility] ([facility])[address] [place] [address] POCT GLUCOSE METER UNSOLICIT ED RESULTSon 03-11-2024 Glucose [Mass/Vol] 129 mg/dL High 70-105 [facility] Comment on above: Order Comment: Waive d Testing in the ED is performed under the ED CLIA certificate #[id number]. Result Comment: [email or web address] Performed By: #### L [id number] ####[facility] ([facility] [place] [address] Glucose [Mass/Vol] 175 mg/dL High 70-105 [facility] Comment on above: Order Comment: Waive d Testing in the ED is performed under the ED CLIA certificate #[id number]. Result Comment: [email or web address] Performed By: #### L [id number] ####[facility] (BECasengo)[address] [place] [address] Glucose [Mass/Vol] 120 mg/dL High 70-105 [facility] Comment on above: Order Comment: Waive d Testing in the ED is performed under the ED CLIA certificate #[id number]. Result Comment: [email or web address] Performed By: #### L [id number] ####[facility] ([facility])[address] [place] [address] Glucose [Mass/Vol] 116 mg/dL High 70-105 [facility] Comment on above: Order Comment: Waive d Testing in the ED is performed under the ED CLIA certificate #[id number]. Result Comment: [email or web address] Performed By: #### L [id number] ####[facility] ([facility])[address] [place] [address] 30on 03-10-2024 30 Normal [facility] 30 Normal [facility] CBC WITH AUTO DIFFERENTIALon 03-10-2024 Basophils (Bld) [#/Vol] 0.01 10*3/uL Normal 0.00-0.20 [facility] Comment on above: Performed By: #### L [id number] ####[facility] ([place])[address] [place] [address] Basophils/100 WBC (Bld) 0.1 % Normal 0.0-1.0 [facility] Comment on above: Performed By: #### L [id number] ####[facility] ([facility])[address] [place] [address] Eosinophils (Bld) [#/Vol] 0.13 10*3/uL Normal 0.00-0.50 [facility] Comment on above: Performed By: #### L [id number] ####[facility] (BEC[facility])[address] [place] [address] Eosinophils/100 WBC (Bld) 1.2 % Normal 0.0-6.0 [facility] Comment on above: Performed By: #### L [id number] ####[facility] ([facility] [place] [address] Erythrocyte distribution width (RBC) [Ratio] 18.3 % High 11.5-15.0 [facility] Comment on above: Performed By: #### L [id number] ####[facility] ([facility])[address] [place] [address] ERYTHROCYTE MEAN CORPUSCULAR HEMOGLOBIN CONCENTRATION (G/DL) BY AUTOMATED 29.6 g/dL Low 32.0-35.0 [facility] Comment on above: Performed By: #### L [id number] ####[facility] ([facility])[address] [place] [address] Hematocrit (Bld) [Volume fraction] 27.7 % Low 36.0-48.0 [facility] Comment on above: Performed By: #### L [id number] ####[facility] ([facility] [place] [address] Hemoglobin (Bld) [Mass/Vol] 8.2 g/dL Low 12.0-15.0 [facility] Comment on above: Performed By: #### L [id number] ####[facility] (BEAKER)[address] [place] [address] Immature granulocytes (Bld) [#/Vol] 0.08 10*3/uL Normal 0.00-0.20 [facility] Comment on above: Performed By: #### L [id number] ####[facility] (BEAKER)[address] [place] [address] Immature granulocytes/100 WBC (Bld) 0.7 % Normal 0.0-1.0 [facility] Comment on above: Performed By: #### L [id number] ####[facility] (BEAKER)[address] [place] [address] Lymphocytes (Bld) [#/Vol] 1.57 10*3/uL Normal 1.20-4.00 [facility] Comment on above: Performed By: #### L [id number] ####[facility] (BEAKER)[address] [place] [address] Lymphocytes/100 WBC (Bld) 14.4 % Low 20.0-45.0 [facility] Comment on above: Performed By: #### L [id number] ####[facility] ([facility])[address] [place] [address] MCH (RBC) [Entitic mass] 22.3 pg Low 27.0-33.0 [facility] Comment on above: Performed By: #### L [id number] ####[facility] ([facility])[address] [place] [address] MCV (RBC) [Entitic vol] 75.5 fL Low 82.0-98.0 [facility] Comment on above: Performed By: #### L [id number] ####[facility] ([facility])[address] [place] [address] Monocytes (Bld) [#/Vol] 1.35 10*3/uL High 0.10-1.00 [facility] Comment on above: Performed By: #### L [id number] ####[facility] (BEAKER)[address] [place] [address] Monocytes/100 WBC (Bld) 12.4 % High 5.0-12.0 [facility] Comment on above: Performed By: #### L [id number] ####[facility] (BEAKER)[address] [place] [address] Neutrophils (Bld) [#/Vol] 7.74 10*3/uL High 1.60-7.60 [facility] Comment on above: Performed By: #### L [id number] ####[facility] (BEAKER)[address] [place] [address] Neutrophils/100 WBC (Bld) 71.2 % Normal 40.0-72.0 [facility] Comment on above: Performed By: #### L [id number] ####[facility] ([facility])[address] [place] [address] NRBC (PER 100 WBCS) BY AUTOMATED COUNT 0.0 % Normal 0 [facility] Comment on above: Performed By: #### L [id number] ####[facility] ([facility])[address] [place] [address] PLATELETS (10*3/UL) IN BLOOD AUTOMATED COUNT 356 10*3/uL Normal 150-400 [facility] Comment on above: Performed By: #### L [id number] ####[facility] ([facility])[address] [place] [address] RBC (Bld) [#/Vol] 3.67 10*6/uL Low 3.80-5.00 [facility] Comment on above: Performed By: #### L [id number] ####[facility] ([facility])[address] [place] [address] WBC (Bld) [#/Vol] 10.88 10*3/uL High 4.00-10.60 [facility] Comment on above: Performed By: #### L [id number] ####[facility] ([facility])[address] [place] [address] COMPREHENSIVE METABOLIC PANE Robbie 03-10-2024 Albumin [Mass/Vol] 3.1 g/dL Low 3.5-5.7 [facility] Comment on above: Performed By: #### L [id number] ####[facility] ([facility])[address] [place] [address] ALP [Catalytic activity/Vol] 80 U/L Normal 34-104 [facility] Comment on above: Performed By: #### L [id number] ####[facility] ([facility])[address] [place] [address] ALT [Catalytic activity/Vol] 208 U/L High 7-52 [facility] Comment on above: Performed By: #### L [id number] ####[facility] (BEAKER)[address] [place] [address] Anion gap [Moles/Vol] 9 mmol/L Normal 7-20 [facility] Comment on above: Performed By: #### L [id number] ####[facility] (BEAKER)[address] [place] [address] AST [Catalytic activity/Vol] 88 U/L High 13-39 [facility] Comment on above: Performed By: #### L [id number] ####[facility] ([facility])[address] [place] [address] Bilirubin [Mass/Vol] 0.3 mg/dL Normal 0.3-1.0 [facility] Comment on above: Performed By: #### L [id number] ####[facility] ([facility] [place] [address] Calcium [Mass/Vol] 8.6 mg/dL Normal 8.6-10.3 [facility] Comment on above: Performed By: #### L [id number] ####[facility] ([facility])[address] [place] [address] Chloride [Moles/Vol] 94 mmol/L Low 98-107 [facility] Comment on above: Performed By: #### L [id number] ####[facility] (BEAKER)[address] [place] [address] CO2 [Moles/Vol] 35 mmol/L High 21-31 [facility] Comment on above: Performed By: #### L [id number] ####[facility] ([facility] [place] [address] Creatinine [Mass/Vol] 0.93 mg/dL Normal 0.60-1.20 [facility] Comment on above: Performed By: #### L [id number] ####[facility] (BEAKER)[address] [place] [address] GLOMERULAR FILTRATION RATE ML/MIN/1.73 SQ M.PREDICTED 59.9 mL/min/1.73m*2 Low >60.0 [facility] Comment on above: Result Comment: The [facility]???s estimated glomerular filtration rate (eGFR) will [...] of individuals. Performed By: #### L [id number] ####[facility] (AKER)[address] [place] [address] Glucose [Mass/Vol] 92 mg/dL Normal 70-100 [facility] Comment on above: Performed By: #### L [id number] ####[facility] ([facility])[address] [place] [address] Potassium [Moles/Vol] 3.9 mmol/L Normal 3.5-5.1 [facility] Comment on above: Performed By: #### L [id number] ####[facility] (BEAKER)[address] [place] [address] Protein [Mass/Vol] 6.6 g/dL Normal 6.0-8.3 [facility] Comment on above: Performed By: #### L [id number] ####[facility] (BEAKER)[address] [place] [address] Sodium [Moles/Vol] 134 mmol/L Low 136-145 [facility] Comment on above: Performed By: #### L [id number] ####[facility] (BEAKER)[address] [place] [address] Urea nitrogen [Mass/Vol] 34 mg/dL High 7-25 [facility] Comment on above: Performed By: #### L [id number] ####[facility] (BEAKER)[address] [place] [address] UREA NITROGEN/CREATININ E (MASS RATIO) IN SER/PLAS 36.6 Normal [facility] Comment on above: Performed By: #### L [id number] ####[facility] ([facility])[address] [place] [address] CONSULTon 03-10-2024 CONSULT Normal [facility] CONSULT Normal [facility] CT ABDOMEN PELVIS W IV CONTR Jennifer 03-10-2024 CT ABDOMEN PELVIS W IV CONTRAST Invalid Interpretation Code [facility] HEMOGLOBIN AND HEMATOCRIT, B LOODon 03-10-2024 Hematocrit (Bld) [Volume fraction] 27.8 % Low 36.0-48.0 [facility] Comment on above: Performed By: #### L [id number] ####[facility] ([facility])[address] [place] [address] Hemoglobin (Bld) [Mass/Vol] 8.4 g/dL Low 12.0-15.0 [facility] Comment on above: Performed By: #### L [id number] ####[facility] ([facility])[address] [place] [address] POCT GLUCOSE METER UNSOLICIT ED RESULTSon 03-10-2024 Glucose [Mass/Vol] 155 mg/dL High 70-105 [facility] Comment on above: Order Comment: Waive d Testing in the ED is performed under the ED CLIA certificate #[id number]. Result Comment: [email or web address] Performed By: #### L [id number] ####[facility] ([place])[address] [place] [address] Glucose [Mass/Vol] 114 mg/dL High 70-105 [facility] Comment on above: Order Comment: Waive d Testing in the ED is performed under the ED CLIA certificate #[id number]. Result Comment: [email or web address] Performed By: #### L [id number] ####[facility] ([facility])[address] [place] [address] Glucose [Mass/Vol] 110 mg/dL High 70-105 [facility] Comment on above: Order Comment: Waive d Testing in the ED is performed under the ED CLIA certificate #[id number]. Result Comment: [email or web address] Performed By: #### L [id number] ####[facility] ([facility])[address] [place] [address] Glucose [Mass/Vol] 113 mg/dL High 70-105 [facility] Comment on above: Order Comment: Waive d Testing in the ED is performed under the ED CLIA certificate #[id number]. Result Comment: [email or web address] Performed By: #### L [id number] ####[facility] ([facility])[address] [place] [address] 30on 03-09-2024 30 Normal [facility] 30 Normal [facility] B-TYPE NATRIURETIC PEPTIDEon 03-09-2024 Natriuretic peptide B (Bld) [Mass/Vol] 889 pg/mL High 0-100 [facility] Comment on above: Performed By: #### L [id number] ####[facility] ([facility])[address] [place] [address] C-REACTIVE PROTEINon 024 C REACTIVE PROTEIN (MG/L) IN SER/PLAS 126.0 mg/L High 0.0-7.0 [facility] Comment on above: Performed By: #### L [id number] ####[facility] ([facility])[address] [place] [address] COMPREHENSIVE METABOLIC PANE Robbie 03-09-2024 Albumin [Mass/Vol] 3.2 g/dL Low 3.5-5.7 [facility] Comment on above: Performed By: #### L [id number] ####[facility] ([facility])[address] [place] [address] ALP [Catalytic activity/Vol] 81 U/L Normal 34-104 [facility] Comment on above: Performed By: #### L [id number] ####[facility] ([facility])[address] [place] [address] ALT [Catalytic activity/Vol] 237 U/L High 7-52 [facility] Comment on above: Performed By: #### L [id number] ####[facility] (BEAKER)[address] [place] [address] Anion gap [Moles/Vol] 14 mmol/L Normal 7-20 [facility] Comment on above: Performed By: #### L [id number] ####[facility] (BEAKER)[address] [place] [address] AST [Catalytic activity/Vol] 130 U/L High 13-39 [facility] Comment on above: Performed By: #### L [id number] ####[facility] ([facility] [place] [address] Bilirubin [Mass/Vol] 0.3 mg/dL Normal 0.3-1.0 [facility] Comment on above: Performed By: #### L [id number] ####[facility] ([facility] [place] [address] Calcium [Mass/Vol] 8.6 mg/dL Normal 8.6-10.3 [facility] Comment on above: Performed By: #### L [id number] ####[facility] ([facility] [place] [address] Chloride [Moles/Vol] 93 mmol/L Low 98-107 [facility] Comment on above: Performed By: #### L [id number] ####[facility] ([facility])[address] [place] [address] CO2 [Moles/Vol] 28 mmol/L Normal 21-31 [facility] Comment on above: Performed By: #### L [id number] ####[facility] ([facility])[address] [place] [address] Creatinine [Mass/Vol] 1.03 mg/dL Normal 0.60-1.20 [facility] Comment on above: Performed By: #### L [id number] ####[facility] ([facility])[address] [place] [address] GLOMERULAR FILTRATION RATE ML/MIN/1.73 SQ M.PREDICTED 53.0 mL/min/1.73m*2 Low >60.0 [facility] Comment on above: Result Comment: The [facility]???s estimated glomerular filtration rate (eGFR) will [...] of individuals. Performed By: #### L [id number] ####[facility] ([facility])[address] [place] [address] Glucose [Mass/Vol] 123 mg/dL Normal [facility] Comment on above: Performed By: #### L [id number] ####[facility] ([facility])[address] [place] [address] Performed By: #### L [id number] ####[facility] ([facility])[address] [place] [address] Potassium [Moles/Vol] 3.9 mmol/L Normal 3.5-5.1 [facility] Comment on above: Performed By: #### L [id number] ####[facility] ([facility])[address] [place] [address] Protein [Mass/Vol] 6.7 g/dL Normal 6.0-8.3 [facility] Comment on above: Performed By: #### L [id number] ####[facility] ([facility])[address] [place] [address] Sodium [Moles/Vol] 131 mmol/L Low 136-145 [facility] Comment on above: Performed By: #### L [id number] ####[facility] ([facility])[address] [place] [address] Urea nitrogen [Mass/Vol] 30 mg/dL High 7-25 [facility] Comment on above: Performed By: #### L [id number] ####[facility] ([facility])[address] [place] [address] UREA NITROGEN/CREATININ E (MASS RATIO) IN SER/PLAS 29.1 Normal [facility] Comment on above: Performed By: #### L [id number] ####[facility] [address] CONSULTon 03-09-2024 CONSULT Normal [facility] CONSULT Normal [facility] HEMOGLOBIN A1Con 03-09-2024 HbA1c (Bld) [Mass fraction] 5.9 % Normal 4.0-6.0 [facility] Comment on above: Performed By: #### L [id number] ####[facility] ([facility])[address] [place] [address] HEMOGLOBIN AND HEMATOCRIT, B LOODon 03-09-2024 Hematocrit (Bld) [Volume fraction] 26.0 % Low 36.0-48.0 [facility] Comment on above: Performed By: #### L [id number] ####[facility] (BEAKER)[address] [place] [address] Hemoglobin (Bld) [Mass/Vol] 7.7 g/dL Low 12.0-15.0 [facility] Comment on above: Performed By: #### L [id number] ####[facility] ([facility])[address] [address] Hematocrit (Bld) [Volume fraction] 26.8 % Low 36.0-48.0 [facility] Comment on above: Performed By: #### L [id number] ####[facility] ([facility])[address] [address] Hemoglobin (Bld) [Mass/Vol] 8.1 g/dL Low 12.0-15.0 [facility] Comment on above: Performed By: #### L [id number] ####[facility] ([facility])[address] [address] HPon 03-09-2024 HP Normal [facility] IRON AND TIBCon 03-09-2024 IRON (UG/DL) IN SER/PLAS 11 ug/dL Low 50-212 [facility] Comment on above: Performed By: #### L [id number] ####[facility] ([facility])[address] [place] [address] IRON BINDING CAPACITY (UG/DL) IN SER/PLAS 280 ug/dL Normal 250-450 [facility] Comment on above: Performed By: #### L [id number] ####[facility] ([facility])[address] [place] [address] IRON BINDING CAPACITY.UNSATURAT ED (UG/DL) IN SER/PLAS 269.0 ug/dL Normal 155.0-355.0 [facility] Comment on above: Performed By: #### L [id number] ####[facility] ([facility])[address] [place] [address] IRON SATURATION (%) IN SER/PLAS 4 % Low 20-50 [facility] Comment on above: Performed By: #### L [id number] ####[facility] ([facility])[address] [place] [address] POCT GLUCOSE METER UNSOLICIT ED RESULTSon 03-09-2024 Glucose [Mass/Vol] 110 mg/dL High 70-105 [facility] Comment on above: Order Comment: Waive d Testing in the ED is performed under the ED CLIA certificate #[id number]. Result Comment: shod ges4 Performed By: #### L [id number] ####[facility] ([facility])[address] [place] [address] Glucose [Mass/Vol] 188 mg/dL High 70-105 [facility] Comment on above: Order Comment: Waive d Testing in the ED is performed under the ED CLIA certificate #[id number]. Result Comment: shod ges4 Performed By: #### L [id number] ####[facility] ([facility])[address] [place] [address] Glucose [Mass/Vol] 147 mg/dL High 70-105 [facility] Comment on above: Order Comment: Waive d Testing in the ED is performed under the ED CLIA certificate #[id number]. Result Comment: msig g Performed By: #### L [id number] ####[facility] ([facility])[address] [place] [address] SEDIMENTATION RATEon 024 SEDIMENTATION RATE, ERYTHROCYTE 65 mm/hr High <=20 [facility] Comment on above: Performed By: #### L [id number] ####[facility] ([facility])[address] [place] [address] TROPONIN Ion 03-09-2024 Troponin I.cardiac [Mass/Vol] 0.01 ng/mL Normal 0.00-0.04 [facility] Comment on above: Performed By: #### L [id number] ####[facility] ([facility])[address] [place] [address] Troponin I.cardiac [Mass/Vol] 0.01 ng/mL Normal 0.00-0.04 [facility] Comment on above: Performed By: #### L [id number] ####[facility] ([facility])[address] [place] [address] TSH3 REFLEX TO FT4on 024 THYROTROPIN (MIU/L) IN SER/PLAS BY DETECTION LIMIT <= 0.05 MIU/L 1.31 mIU/L Normal 0.34-5.60 [facility] Comment on above: Performed By: #### L [id number] ####[facility] ([facility])[address] [place] [address] VITAMIN B12on 03-09-2024 Cobalamin (Vitamin B12) [Mass/Vol] 417 pg/mL Normal 180-914 [facility] Comment on above: Result Comment: REFE RENCE RANGES:180-914 pg/mL Ekuhch591-737 pg/mL Indeterminate<145 pg/mL Deficient Performed By: #### L [id number] ####[facility] ([facility])[address] [place] [address] APTTon 03-08-2024 ACTIVATED PARTIAL THROMBOPLASTIN TIME IN PPP BY COAGULATION ASSAY 49.7 Seconds High 25.0-35.0 [facility] Comment on above: Result Comment: Clin ical significance of the APTT is questionable in the presence of heparin. Performed By: #### L [id number] ####[facility] ([facility])[address] [place] [address] B-TYPE NATRIURETIC PEPTIDEon 03-08-2024 Natriuretic peptide B (Bld) [Mass/Vol] 1085 pg/mL High 0-100 [facility] Comment on above: Performed By: #### L [id number] ####[facility] ([facility])[address] [place] [address] CBC WITH AUTO DIFFERENTIALon 03-08-2024 Basophils (Bld) [#/Vol] 0.01 10*3/uL Normal 0.00-0.20 [facility] Comment on above: Performed By: #### L [id number] ####[facility] ([facility])[address] [place] [address] Basophils/100 WBC (Bld) 0.1 % Normal 0.0-1.0 [facility] Comment on above: Performed By: #### L [id number] ####[facility] ([facility])[address] [place] [address] Eosinophils (Bld) [#/Vol] 0.00 10*3/uL Normal 0.00-0.50 [facility] Comment on above: Performed By: #### L [id number] ####[facility] ([facility])[address] [place] [address] Eosinophils/100 WBC (Bld) 0.0 % Normal 0.0-6.0 [facility] Comment on above: Performed By: #### L [id number] ####[facility] ([facility])[address] [place] [address] Erythrocyte distribution width (RBC) [Ratio] 18.0 % High 11.5-15.0 [facility] Comment on above: Performed By: #### L [id number] ####[facility] ([facility])[address] [place] [address] ERYTHROCYTE MEAN CORPUSCULAR HEMOGLOBIN CONCENTRATION (G/DL) BY AUTOMATED 30.7 g/dL Low 32.0-35.0 [facility] Comment on above: Performed By: #### L [id number] ####[facility] ([facility])[address] [place] [address] Hematocrit (Bld) [Volume fraction] 26.4 % Low 36.0-48.0 [facility] Comment on above: Performed By: #### L [id number] ####[facility] ([facility])[address] [place] [address] Hemoglobin (Bld) [Mass/Vol] 8.1 g/dL Low 12.0-15.0 [facility] Comment on above: Performed By: #### L [id number] ####[facility] ([facility])[address] [place] [address] Immature granulocytes (Bld) [#/Vol] 0.10 10*3/uL Normal 0.00-0.20 [facility] Comment on above: Performed By: #### L [id number] ####[facility] ([facility])[address] [place] [address] Immature granulocytes/100 WBC (Bld) 1.0 % Normal 0.0-1.0 [facility] Comment on above: Performed By: #### L [id number] ####[facility] ([facility])[address] [place] [address] Lymphocytes (Bld) [#/Vol] 0.93 10*3/uL Low 1.20-4.00 [facility] Comment on above: Performed By: #### L [id number] ####[facility] ([facility])[address] [place] [address] Lymphocytes/100 WBC (Bld) 8.8 % Low 20.0-45.0 [facility] Comment on above: Performed By: #### L [id number] ####[facility] ([facility])[address] [place] [address] MCH (RBC) [Entitic mass] 22.2 pg Low 27.0-33.0 [facility] Comment on above: Performed By: #### L [id number] ####[facility] ([facility])[address] [place] [address] MCV (RBC) [Entitic vol] 72.3 fL Low 82.0-98.0 [facility] Comment on above: Performed By: #### L [id number] ####[facility] ([facility])[address] [place] [address] Monocytes (Bld) [#/Vol] 0.55 10*3/uL Normal 0.10-1.00 [facility] Comment on above: Performed By: #### L [id number] ####[facility] ([facility])[address] [place] [address] Monocytes/100 WBC (Bld) 5.2 % Normal 5.0-12.0 [facility] Comment on above: Performed By: #### L [id number] ####[facility] ([facility])[address] [place] [address] Neutrophils (Bld) [#/Vol] 8.92 10*3/uL High 1.60-7.60 [facility] Comment on above: Performed By: #### L [id number] ####[facility] ([facility])[address] [place] [address] Neutrophils/100 WBC (Bld) 84.9 % High 40.0-72.0 [facility] Comment on above: Performed By: #### L [id number] ####[facility] ([facility])[address] [place] [address] NRBC (PER 100 WBCS) BY AUTOMATED COUNT 0.0 % Normal 0 [facility] Comment on above: Performed By: #### L [id number] ####[facility] ([facility] [place] [address] PLATELETS (10*3/UL) IN BLOOD AUTOMATED COUNT 307 10*3/uL Normal 150-400 [facility] Comment on above: Performed By: #### L [id number] ####[facility] ([facility] [place] [address] RBC (Bld) [#/Vol] 3.65 10*6/uL Low 3.80-5.00 [facility] Comment on above: Performed By: #### L [id number] ####[facility] ([facility])[address] [place] [address] WBC (Bld) [#/Vol] 10.51 10*3/uL Normal 4.00-10.60 [facility] Comment on above: Performed By: #### L [id number] ####[facility] ([facility])[address] [place] [address] COMPREHENSIVE METABOLIC PANE [facility] 03-08-2024 Albumin [Mass/Vol] 3.3 g/dL Low 3.5-5.7 [facility] Comment on above: Performed By: #### L [id number] ####[facility] ([facility])[address] [place] [address] ALP [Catalytic activity/Vol] 95 U/L Normal 34-104 [facility] Comment on above: Performed By: #### L [id number] ####[facility] ([facility])[address] [place] [address] ALT [Catalytic activity/Vol] 272 U/L High 7-52 [facility] Comment on above: Performed By: #### L [id number] ####[facility] ([facility])[address] [place] [address] Anion gap [Moles/Vol] 13 mmol/L Normal 7-20 [facility] Comment on above: Performed By: #### L [id number] ####[facility] ([facility] [place] [address] AST [Catalytic activity/Vol] 197 U/L High 13-39 [facility] Comment on above: Performed By: #### L [id number] ####[facility] ([facility] [place] [address] Bilirubin [Mass/Vol] 0.3 mg/dL Normal 0.3-1.0 [facility] Comment on above: Performed By: #### L [id number] ####[facility] ([place])[address] [place] [address] Calcium [Mass/Vol] 8.5 mg/dL Low 8.6-10.3 [facility] Comment on above: Performed By: #### L [id number] ####[facility] ([facility])[address] [place] [address] Chloride [Moles/Vol] 90 mmol/L Low 98-107 [facility] Comment on above: Performed By: #### L [id number] ####[facility] ([facility])[address] [place] [address] CO2 [Moles/Vol] 27 mmol/L Normal 21-31 [facility] Comment on above: Performed By: #### L [id number] ####[facility] ([facility])[address] [place] [address] Creatinine [Mass/Vol] 1.02 mg/dL Normal 0.60-1.20 [facility] Comment on above: Performed By: #### L [id number] ####[facility] ([facility])[address] [place] [address] GLOMERULAR FILTRATION RATE ML/MIN/1.73 SQ M.PREDICTED 53.6 mL/min/1.73m*2 Low >60.0 [facility] Comment on above: Result Comment: The [facility]???s estimated glomerular filtration rate (eGFR) will [...] of individuals. Performed By: #### L [id number] ####[facility] ([facility])[address] [place] [address] Glucose [Mass/Vol] 201 mg/dL High 70-100 [facility] Comment on above: Performed By: #### L [id number] ####[facility] ([facility])[address] [place] [address] Potassium [Moles/Vol] 3.6 mmol/L Normal 3.5-5.1 [facility] Comment on above: Performed By: #### L [id number] ####[facility] ([facility])[address] [place] [address] Protein [Mass/Vol] 6.7 g/dL Normal 6.0-8.3 [facility] Comment on above: Performed By: #### L [id number] ####[facility] ([facility])[address] [place] [address] Sodium [Moles/Vol] 126 mmol/L Low 136-145 [facility] Comment on above: Performed By: #### L [id number] ####[facility] ([facility])[address] [place] [address] Urea nitrogen [Mass/Vol] 34 mg/dL High 7-25 [facility] Comment on above: Performed By: #### L [id number] ####[facility] ([facility])[address] [place] [address] UREA NITROGEN/CREATININ E (MASS RATIO) IN SER/PLAS 33.3 Normal [facility] Comment on above: Performed By: #### L [id number] ####[facility] ([facility])[address] [place] [address] HPon 03-08-2024 HP Normal [facility] LACTIC ACID WITH 4 HOUR REFL EXon 03-08-2024 LACTATE (MMOL/L) IN SER/PLAS 1.8 mmol/L Normal 0.5-2.2 [facility] Comment on above: Performed By: #### L [id number] ####[facility] ([facility])[address] [place] [address] MAGNESIUMon 03-08-2024 Magnesium [Mass/Vol] 1.8 mg/dL Low 1.9-2.7 [facility] Comment on above: Performed By: #### L [id number] ####[facility] (TUNDE)[address] [place] [address] PHOSPHORUSon 03-08-2024 Magnesium [Mass/Vol] 4.5 mg/dL Normal 2.5-5.0 [facility] Comment on above: Performed By: #### L [id number] ####[facility] ([facility])[address] [place] [address] POCT GLUCOSE METER UNSOLICIT ED RESULTSon 03-08-2024 Glucose [Mass/Vol] 210 mg/dL High 70-105 [facility] Comment on above: Order Comment: Waive d Testing in the ED is performed under the ED CLIA certificate #[id number]. Result Comment: msig g Performed By: #### L [id number] ####[facility] ([facility])[address] [place] [address] PROTIME-INRon 03-08-2024 INR IN PPP BY COAGULATION ASSAY 2.32 High 0.90-1.10 [facility] Comment on above: Result Comment: ACCC P RECOMMENDED INR FOR WARFARIN THERAPY CONDITION INRPROPHYLAXIS OF VENOUS THROMBOSIS 2-3(HIGH-RISK SURGERY)TREATMENT OF VENOUS THROMBOSIS 2-3TREATMENT OF PULMONARY EMBOLISM 2-3PREVENTION OF SYSTEMIC EMBOLISM: 2-3 ACUTE MYOCARDIAL INFARCTION TISSUE HEART VALVES VALVULAR HEART DISEASE ATRIAL FIBRILLATION RECURRENT SYSTEMIC EMBOLISMMECHANICAL HEART VALVE 2.5-3.5 FROM: ORAL ANTICOAGULANTS. MECHANISM OF ACTION, CLINICAL EFFECTIVENESS, AND OPTIMAL THERAPEUTIC RANGE. CHEST 1995;108:231S-246S. Performed By: #### L [id number] ####[facility] ([facility])[address] [place] [address] PROTHROMBIN TIME (PT) IN PPP BY COAGULATION ASSAY 25.0 Seconds High 12.3-14.8 [facility] Comment on above: Performed By: #### L [id number] ####[facility] ([facility])[address] [place] [address] TROPONIN Ion 03-08-2024 Troponin I.cardiac [Mass/Vol] 0.01 ng/mL Normal 0.00-0.04 [facility] Comment on above: Performed By: #### L [id number] ####[facility] ([facility])[address] [place] [address] HVF 24-2 STANDARD - OUon HVF 24-2 STANDARD - OU See note Normal [facility] Perimetry studyon 12-01-2023 See note RADIOLOGY [facility] Radiology Study observation (narrative) [facility] ECG 12 leadon 06-28-2023 Atrial Rate [facility] P-R Interval [facility] Q-T Interval [facility] Q-T Interval (corrected) [facility] QRS Duration [facility] QTC Calculation (Bezet) [facility] R [facility] T [facility] Ventricular Rate [facility] 36on 06-15-2023 36 Spoke with patient a nd she is back to taking the diltiazem how Mary wanted her to and she's feeling fine. BP isn't as low, but still up and down. Normal [facility] 36on 06-10-2023 36 Normal [facility] OCT OPTIC NERVE OUon 023 OCT OPTIC NERVE OU See note Normal [facility] Ophthalmic OCT panelon 05-31 See note RADIOLOGY [facility] Radiology Study observation [facility]ative) [facility] YAG LASER-OSon 05-31-2023 YAG LASER-OS See note Normal [facility] See note [facility] 36on 04-27-2023 36 That is fine she can stop...has she been treated for the yeast at least ? Normal [facility] Basic Metabolic Profon 03-09 Anion gap [Moles/Vol] 9 mmol/L Normal 9-17 [facility] Comment on above: Performed By: #### B MP, BNP #### [facility] [address] [place], [place] [id number] Labor Economist: Jay Peter MD BUN/CRE Ratio 10 Normal 9-20 [facility] Comment on above: Performed By: #### B MP, BNP #### [facility] [address] [place], [place] [id number] Labor Economist: Jay Peter MD Calcium [Mass/Vol] 9.0 mg/dL Normal 8.6-10.4 [facility] Comment on above: Performed By: #### B MP, BNP #### [facility] [address] [place], [place] [address] Labor Economist: Jay Peter MD Chloride [Moles/Vol] 96 mmol/L Low 98-107 [facility] Comment on above: Performed By: #### B MP, BNP #### [facility] [address] [place], [place] [id number] Labor Economist: Jay Peter MD CO2 [Moles/Vol] 28 mmol/L Normal 20-31 [facility] Comment on above: Performed By: #### B MP, BNP #### [facility] [address] [place], [place] [address] Labor Economist: Jay Peter MD Creatinine [Mass/Vol] 0.9 mg/dL Normal 0.5-0.9 [facility] Comment on above: Performed By: #### B MP, BNP #### [facility] [address] [place] [address] Labor Economist: Jay Peter MD GFR/1.73 sq M.predicted among non-blacks MDRD (S/P/Bld) [Vol rate/Area] mL/min/{1.73_m2} Normal >60 [facility] Comment on above: Result Comment: These [...] Performed By: #### B MP, BNP #### [facility] [address] [place] [address] [place] [address] Labor Economist: Jay Peter MD Glucose [Mass/Vol] 162 mg/dL High 70-99 [facility] Comment on above: Performed By: #### B MP, BNP #### [facility] [address] [place] [address] [place] [address] Labor Economist: Jay Peter MD Potassium [Moles/Vol] 4.3 mmol/L Normal 3.7-5.3 [facility] Comment on above: Performed By: #### B MP, BNP #### [facility] [address] [place] [address] [place] [address] Labor Economist: Jay Peter MD Sodium [Moles/Vol] 133 mmol/L Low 135-144 [facility] Comment on above: Performed By: #### B MP, BNP #### [facility] [address] [place] [address] [place] [address] Labor Economist: Jay Peter MD Urea nitrogen [Mass/Vol] 9 mg/dL Normal 8-23 [facility] Comment on above: Performed By: #### B MP, BNP #### [facility] [address] [place] [address] [place] [address] Labor Economist: Jay Peter MD Brain Natri. Peptideon 03-09 Natriuretic peptide B (Bld) [Mass/Vol] 1518 pg/mL High <300 [facility] Comment on above: Result Comment: An age-independent cutoff point of 300 pg/ml has a 98% negative predictive value excluding acute heart failure. Performed By: #### B MP, BNP #### [facility] [address] [place] [address] Labor Economist: Jay Peter MD PROF CHEM 8 (BAS METB)on Anion gap [Moles/Vol] 10.1 mmol/L Normal [facility] Comment on above: Performed By: #### L IPID, T7, CMP, TSH #### [facility] [address] [place] [address] Dr. Jorge Glaser Calcium [Mass/Vol] 9.1 mg/dL Normal 8.5-10.1 [facility] Comment on above: Performed By: #### L IPID, T7, CMP, TSH #### [facility] [address] [address] [address] Jorge Glaser Chloride [Moles/Vol] 98 mmol/L Normal 98-107 [facility] Comment on above: Performed By: #### L IPID, T7, CMP, TSH #### [facility] [address] [address] [address] Jorge Glaser CO2 [Moles/Vol] 32.1 mmol/L Critically high 21.0-32.0 [facility] Comment on above: Performed By: #### L IPID, T7, CMP, TSH #### [facility] [address] [address] [address] Jorge Glaser Creatinine [Mass/Vol] 0.93 mg/dL Normal 0.55-1.02 [facility] Comment on above: Performed By: #### L IPID, T7, CMP, TSH #### [facility] [address] [address] [address] Jorge Glaser EGFR-AF MONGOLIAN >60 Normal >=60 [facility] Comment on above: Performed By: #### L IPID, T7, CMP, TSH #### [facility] [address] [address] [address] Jorge Glaser EGFR-NON AF MONGOLIAN 57 mL/min/1.73m2 Critically low >=60 [facility] Comment on above: Performed By: #### L IPID, T7, CMP, TSH #### [facility] [address] [address] [address] Jorge Glaser Glucose [Mass/Vol] 103 mg/dL Normal 74-106 [facility] Comment on above: Performed By: #### L IPID, T7, CMP, TSH #### [facility] [address] [place] [address] Dr. Jorge Glaser Potassium [Moles/Vol] 4.2 mmol/L Normal 3.5-5.1 [facility] Comment on above: Performed By: #### L IPID, T7, CMP, TSH #### [facility] [address] [address] [address] Jorge Glaser Sodium [Moles/Vol] 136 mmol/L Normal 136-145 [facility] Comment on above: Performed By: #### L IPID, T7, CMP, TSH #### [facility] [facility] [address] [address] [address] Jorge Glaser Urea nitrogen [Mass/Vol] 16.0 mg/dL Normal 7.0-18.0 [facility] Comment on above: Performed By: #### L IPID, T7, CMP, TSH #### [facility] [address] [place] [address] Dr. Jorge Glaser Urea nitrogen/Creatinin e [Mass ratio] 17.2 mg/mg Normal [facility] Comment on above: Performed By: #### L IPID, T7, CMP, TSH #### [facility] [address] [place] [address] Dr. Jorge Glaser BNPon 12-01-2022 Natriuretic peptide B (Bld) [Mass/Vol] 379.0 pg/mL Normal <=1,800.0 [facility] Comment on above: Performed By: #### L IPID, T7, CMP, TSH #### [facility] [address] [address] [address] Jorge Glaser CBC AUTO DIFFon 12-01-2022 BASO # 0.1 103/ul Normal 0.0-0.1 [facility] Comment on above: Performed By: #### C BC #### [facility] [address] [address] [address] Jorge Glaser Basophils/100 WBC (Bld) 1.3 % Normal 0.2-2.0 [facility] Comment on above: Performed By: #### C BC #### [facility] [address] [address] [address] Jorge Glaser EO # 0.2 103/ul Normal 0.0-0.7 [facility] Comment on above: Performed By: #### C BC #### [facility] [address] [address] [address] Jorge Glaser Eosinophils/100 WBC (Bld) 3.1 % Normal 0.9-7.0 [facility] Comment on above: Performed By: #### C BC #### [facility] [address] [address] [address] Jorge Glaser Erythrocyte distribution width (RBC) [Ratio] 14.4 % Normal 11.0-15.0 [facility] Comment on above: Performed By: #### C BC #### [facility] [address] [address] [address] Jorge Glaser Hematocrit (Bld) [Volume fraction] 36.1 % Normal 36.0-48.0 [facility] Comment on above: Performed By: #### C BC #### [facility] [address] [address] [address] Jorge Glaser Hemoglobin (Bld) [Mass/Vol] 11.5 g/dL Critically low 12.0-16.0 [facility] Comment on above: Performed By: #### C BC #### [facility] [address] [address] [address] Jorge Glaser IG # 0.05 10e3/ul Critically high 0.00-0.03 [facility] Comment on above: Performed By: #### C BC #### [facility] [address] [place] [address] Dr. Jorge Glaser IG % 0.6 % Critically high 0.0-0.5 [facility] Comment on above: Performed By: #### C BC #### [facility] [address] [place] [address] Dr. Jorge Glaser LYMPH # 1.7 103/ul Normal 1.2-3.8 [facility] Comment on above: Performed By: #### C BC #### [facility] [address] [place] [address] Dr. Jorge Glaser Lymphocytes/100 WBC (Bld) 21.2 % Normal 20.5-60.0 [facility] Comment on above: Performed By: #### C BC #### [facility] [address] [place] [address] Dr. Jorge Glaser MANUAL DIFF REQ NO Normal [facility] Comment on above: Performed By: #### C BC #### [facility] [address] [place] [address] Dr. Jorge Glaser MCH (RBC) [Entitic mass] 27.3 pg Normal 26.7-34.0 [facility] Comment on above: Performed By: #### C BC #### [facility] [address] [place] [address] Dr. Jorge Glaser MCHC (RBC) [Mass/Vol] 31.9 g/dL Normal 29.9-35.2 [facility] Comment on above: Performed By: #### C BC #### [facility] [address] [place] [address] Dr. Jorge Glaser MCV (RBC) [Entitic vol] 85.5 fL Normal 81.0-99.0 [facility] Comment on above: Performed By: #### C BC #### [facility] [address] [place] [address] Dr. Jorge Glaser MONO # 0.8 103/ul Normal 0.3-0.8 [facility] Comment on above: Performed By: #### C BC #### [facility] [address] [place] [address] Dr. Jorge Glaser Monocytes/100 WBC (Bld) 10.5 % Normal 1.7-12.0 [facility] Comment on above: Performed By: #### C BC #### [facility] [address] [place] [address] Dr. Jorge Glaser NEUT # 4.9 103/ul Normal 1.4-6.5 [facility] Comment on above: Performed By: #### C BC #### [facility] [address] [place] [address] Dr. Jorge Glaser Neutrophils/100 WBC (Bld) 63.3 % Normal 43.0-75.0 [facility] Comment on above: Performed By: #### C BC #### [facility] [address] [place] [address] Dr. Jorge Glaser Platelet mean volume (Bld) [Entitic vol] 8.7 fL Critically low 9.5-13.5 [facility] Comment on above: Performed By: #### C BC #### [facility] [address] [place] [address] Dr. Jorge Glaser PLT 226 103/ul Normal 150-450 [facility] Comment on above: Performed By: #### C BC #### [facility] [address] [place] [address] Dr. Jorge Glaser RBC 4.22 106/ul Normal 4.20-5.40 [facility] Comment on above: Performed By: #### C BC #### [facility] [address] [place] [address] Dr. Jorge Glaser WBC 7.8 103/ul Normal 4.0-11.0 [facility] Comment on above: Performed By: #### C BC #### [facility] [address] [place] [address] Dr. Jorge Glaser FREE THYROXINE INDEX T7on FTI 2.17 Normal 1.30-4.50 [facility] Comment on above: Performed By: #### L IPID, T7, CMP, TSH #### [facility] [address] [address] [address] Jorge Glaser T3U 31.0 % Normal 30.0-39.0 [facility] Comment on above: Performed By: #### L IPID, T7, CMP, TSH #### [facility] [address] [address] [address] Jorge Glaser T4 [Mass/Vol] 7.00 ug/dL Normal 4.80-13.90 [facility] Comment on above: Performed By: #### L IPID, T7, CMP, TSH #### [facility] [address] [place] [address] Dr. Jorge Glaser PROF 14(COMP METB)on 023 Albumin [Mass/Vol] 3.5 g/dL Normal 3.4-5.0 [facility] Comment on above: Performed By: #### L IPID, T7, CMP, TSH #### [facility] [address] [place] [address] Dr. Jorge Glaser Albumin/Globulin [Mass ratio] 0.9 {ratio} Normal [facility] Comment on above: Performed By: #### L IPID, T7, CMP, TSH #### [facility] [address] [place] [address] Dr. Jorge Glaser ALP [Catalytic activity/Vol] 56 U/L Normal 46-116 [facility] Comment on above: Performed By: #### L IPID, T7, CMP, TSH #### [facility] [address] [address] [address] Jorge Glaser ALT [Catalytic activity/Vol] 28 U/L Normal 14-59 [facility] Comment on above: Performed By: #### L IPID, T7, CMP, TSH #### [facility] [address] [place] [address] Dr. Jorge Glaser Anion gap [Moles/Vol] 10.2 mmol/L Normal [facility] Comment on above: Performed By: #### L IPID, T7, CMP, TSH #### [facility] [address] [place] [address] Dr. Jorge Glaser AST [Catalytic activity/Vol] 20 U/L Normal 15-37 [facility] Comment on above: Performed By: #### L IPID, T7, CMP, TSH #### [facility] [address] [address] [address] Jorge Glaser Bilirubin [Mass/Vol] 0.4 mg/dL Normal 0.2-1.0 [facility] Comment on above: Performed By: #### L IPID, T7, CMP, TSH #### [facility] [address] [address] [address] Jorge Glaser Calcium [Mass/Vol] 9.8 mg/dL Normal 8.5-10.1 [facility] Comment on above: Performed By: #### L IPID, T7, CMP, TSH #### [facility] [address] [address] [address] Jorge Glaser Chloride [Moles/Vol] 93 mmol/L Critically low 98-107 [facility] Comment on above: Performed By: #### L IPID, T7, CMP, TSH #### [facility] [address] [address] [address] Jorge Glaser CO2 [Moles/Vol] 34.5 mmol/L Critically high 21.0-32.0 [facility] Comment on above: Performed By: #### L IPID, T7, CMP, TSH #### [facility] [address] [address] [address] Jorge Glaser Creatinine [Mass/Vol] 1.01 mg/dL Normal 0.55-1.02 [facility] Comment on above: Performed By: #### L IPID, T7, CMP, TSH #### [facility] [address] [address] [address] Jorge Glaser EGFR-AF MONGOLIAN >60 Normal >=60 [facility] Comment on above: Performed By: #### L IPID, T7, CMP, TSH #### [facility] [address] [address] [address] Jorge Glaser EGFR-NON AF MONGOLIAN 52 mL/min/1.73m2 Critically low >=60 [facility] Comment on above: Performed By: #### L IPID, T7, CMP, TSH #### [facility] [address] [address] [address] Jorge Glaser Globulin (S) [Mass/Vol] 4.0 g/dL Normal [facility] Comment on above: Performed By: #### L IPID, T7, CMP, TSH #### [facility] [address] [address] [address] Jorge Glaser Glucose [Mass/Vol] 103 mg/dL Normal 74-106 [facility] Comment on above: Performed By: #### L IPID, T7, CMP, TSH #### [facility] [address] [place] [address] Dr. Jorge Glaser Potassium [Moles/Vol] 3.7 mmol/L Normal 3.5-5.1 [facility] Comment on above: Performed By: #### L IPID, T7, CMP, TSH #### [facility] [address] [address] [address] Jorge Glaser Protein [Mass/Vol] 7.5 g/dL Normal 6.4-8.2 [facility] Comment on above: Performed By: #### L IPID, T7, CMP, TSH #### [facility] [address] [place] [address] Dr. Jorge Glaser Sodium [Moles/Vol] 134 mmol/L Critically low 136-145 [facility] Comment on above: Performed By: #### L IPID, T7, CMP, TSH #### [facility] [address] [place] [address] Dr. Jorge Glaser Urea nitrogen [Mass/Vol] 17.0 mg/dL Normal 7.0-18.0 [facility] Comment on above: Performed By: #### L IPID, T7, CMP, TSH #### [facility] [address] [place] [address] Dr. Jorge Glaser Urea nitrogen/Creatinin e [Mass ratio] 16.8 mg/mg Normal [facility] Comment on above: Performed By: #### L IPID, T7, CMP, TSH #### [facility] [address] [place] [address] Dr. Jorge Glaser TSHon 12-01-2022 TSH 4.022 uIU/mL Critically high 0.358-3.740 [facility] Comment on above: Performed By: #### L IPID, T7, CMP, TSH #### [facility] [address] [place] [address] Dr. Jorge Glaser XR CHEST 2 Von [...] by: ABIMBOLA AMADOR Date: 2022-12-01 13:06 Normal [facility] FREE T3on 11-11-2022 FREE T3 2.51 pg/mlL Normal 2.18-3.98 [facility] Comment on above: Performed By: #### L IPID, T7, CMP, TSH #### [facility] [address] [place] [address] Dr. Jorge Glaser T4on 11-11-2022 T4 [Mass/Vol] 6.00 ug/dL Normal 4.80-13.90 [facility] Comment on above: Performed By: #### L IPID, T7, CMP, TSH #### [facility] [address] [place] [address] Dr. Jorge Glaser TSHon 11-11-2022 TSH 4.223 uIU/mL Critically high 0.358-3.740 [facility] Comment on above: Performed By: #### L IPID, T7, CMP, TSH #### [facility] [address] [place] [address] Dr. Jorge Glaser BNPon 11-04-2022 Natriuretic peptide B (Bld) [Mass/Vol] 479.0 pg/mL Normal <=1,800.0 [facility] Comment on above: Performed By: #### L IPID, T7, CMP, TSH #### [facility] [address] [address] [address] Jorge Glaser CBC AUTO DIFFon 11-04-2022 BASO # 0.1 103/ul Normal 0.0-0.1 [facility] Comment on above: Performed By: #### C BC #### [facility] [address] [address] [address] Jorge Glaser Basophils/100 WBC (Bld) 0.8 % Normal 0.2-2.0 [facility] Comment on above: Performed By: #### C BC #### [facility] [address] [address] [address] Jorge Glaser EO # 0.1 103/ul Normal 0.0-0.7 [facility] Comment on above: Performed By: #### C BC #### [facility] [address] [place] [address] Dr. Jorge Glaser Eosinophils/100 WBC (Bld) 0.8 % Critically low 0.9-7.0 [facility] Comment on above: Performed By: #### C BC #### [facility] [address] [place] [address] Dr. Jorge Glaser Erythrocyte distribution width (RBC) [Ratio] 13.9 % Normal 11.0-15.0 [facility] Comment on above: Performed By: #### C BC #### [facility] [address] [place] [address] Dr. Jorge Glaser Hematocrit (Bld) [Volume fraction] 37.7 % Normal 36.0-48.0 [facility] Comment on above: Performed By: #### C BC #### [facility] [address] [address] [address] Jorge Glaser Hemoglobin (Bld) [Mass/Vol] 12.2 g/dL Normal 12.0-16.0 [facility] Comment on above: Performed By: #### C BC #### [facility] [address] [address] [address] Jorge Glaser IG # 0.14 10e3/ul Critically high 0.00-0.03 [facility] Comment on above: Performed By: #### C BC #### [facility] [address] [place] [address] Dr. Jorge Glaser IG % 1.1 % Critically high 0.0-0.5 [facility] Comment on above: Performed By: #### C BC #### [facility] [address] [place] [address] Dr. Jorge Glaser LYMPH # 1.6 103/ul Normal 1.2-3.8 [facility] Comment on above: Performed By: #### C BC #### [facility] [address] [place] [address] Dr. Jorge Glaser Lymphocytes/100 WBC (Bld) 11.8 % Critically low 20.5-60.0 [facility] Comment on above: Performed By: #### C BC #### [facility] [address] [place] [address] Dr. Jorge Glaser MANUAL DIFF REQ NO Normal [facility] Comment on above: Performed By: #### C BC #### [facility] [address] [place] [address] Dr. Jorge Glaser MCH (RBC) [Entitic mass] 28.2 pg Normal 26.7-34.0 [facility] Comment on above: Performed By: #### C BC #### [facility] [address] [place] [address] Dr. Jorge Glaser MCHC (RBC) [Mass/Vol] 32.4 g/dL Normal 29.9-35.2 [facility] Comment on above: Performed By: #### C BC #### [facility] [address] [place] [address] Dr. Jorge Glaser MCV (RBC) [Entitic vol] 87.3 fL Normal 81.0-99.0 [facility] Comment on above: Performed By: #### C BC #### [facility] [address] [place] [address] Dr. Jorge Glaser MONO # 0.8 103/ul Normal 0.3-0.8 [facility] Comment on above: Performed By: #### C BC #### [facility] [address] [address] [address] Jorge Glaser Monocytes/100 WBC (Bld) 5.9 % Normal 1.7-12.0 [facility] Comment on above: Performed By: #### C BC #### [facility] [address] [address] [address] Jorge Glaser NEUT # 10.4 103/ul Critically high 1.4-6.5 [facility] Comment on above: Performed By: #### C BC #### [facility] [address] [address] [address] Jorge Glaser Neutrophils/100 WBC (Bld) 79.6 % Critically high 43.0-75.0 [facility] Comment on above: Performed By: #### C BC #### [facility] [address] [place] [address] Dr. Jorge Glaser Platelet mean volume (Bld) [Entitic vol] 9.0 fL Critically low 9.5-13.5 [facility] Comment on above: Performed By: #### C BC #### [facility] [address] [address] [address] Jorge Glaser PLT 216 103/ul Normal 150-450 [facility] Comment on above: Performed By: #### C BC #### [facility] [address] [place] [address] Dr. Jorge Glaser RBC 4.32 106/ul Normal 4.20-5.40 [facility] Comment on above: Performed By: #### C BC #### [facility] [address] [place] [address] Dr. Jorge Glaser WBC 13.1 103/ul Critically high 4.0-11.0 [facility] Comment on above: Performed By: #### C BC #### [facility] [address] [place] [address] Dr. Jorge Glaser ECHOCARDIO M/2D COMPLETEon 0 11-04-2022 ECHOCARDIO M/2D COMPLETE Patient: KAREN GIFFORD Exam Date: 11/04/2022 : 1935 Gender:F Ordering : [facility] Admission #: [id number] Family : Order #: [id number] CLICK HERE TO VIEW EXAM ECHOCARDIOGRAM REPORT [...] Area (VTI): 2.20 cm2, 2.20 cm2 Deceleration [place]: 2.65 m/s2 Pressure Half-Time: 481.67 ms Peak [...] M.D. on 11/04/2022 at 22:09 Normal [facility] PROF CHEM 8 (BAS METB)on Anion gap [Moles/Vol] 10.6 mmol/L Normal [facility] Comment on above: Performed By: #### L IPID, T7, CMP, TSH #### [facility] [address] [address] [address] Jorge Glaser Calcium [Mass/Vol] 9.5 mg/dL Normal 8.5-10.1 [facility] Comment on above: Performed By: #### L IPID, T7, CMP, TSH #### [facility] [address] [address] [address] Jorge Glaser Chloride [Moles/Vol] 97 mmol/L Critically low 98-107 [facility] Comment on above: Performed By: #### L IPID, T7, CMP, TSH #### [facility] [address] [address] [address] Jorge Glaser CO2 [Moles/Vol] 32.3 mmol/L Critically high 21.0-32.0 [facility] Comment on above: Performed By: #### L IPID, T7, CMP, TSH #### [facility] [address] [address] [address] Jorge Glaser Creatinine [Mass/Vol] 0.79 mg/dL Normal 0.55-1.02 [facility] Comment on above: Performed By: #### L IPID, T7, CMP, TSH #### [facility] [address] [address] [address] Jorge Glaser EGFR-AF MONGOLIAN >60 Normal >=60 [facility] Comment on above: Performed By: #### L IPID, T7, CMP, TSH #### [facility] [address] [address] [address] Jorge Glaser EGFR-NON AF MONGOLIAN >60 Normal >=60 [facility] Comment on above: Performed By: #### L IPID, T7, CMP, TSH #### [facility] [address] [address] [address] Jorge Glaser Glucose [Mass/Vol] 161 mg/dL Critically high 74-106 [facility] Comment on above: Performed By: #### L IPID, T7, CMP, TSH #### [facility] [address] [address] [address] Jorge Glaser Potassium [Moles/Vol] 3.9 mmol/L Normal 3.5-5.1 [facility] Comment on above: Performed By: #### L IPID, T7, CMP, TSH #### [facility] [address] [address] [address] Jorge Glaser Sodium [Moles/Vol] 136 mmol/L Normal 136-145 [facility] Comment on above: Performed By: #### L IPID, T7, CMP, TSH #### [facility] [address] [address] [address] Jorge Glaser Urea nitrogen [Mass/Vol] 20.0 mg/dL Critically high 7.0-18.0 [facility] Comment on above: Performed By: #### L IPID, T7, CMP, TSH #### [facility] [address] [place] [address] Dr. Jorge Glaser Urea nitrogen/Creatinin e [Mass ratio] 25.3 mg/mg Normal [facility] Comment on above: Performed By: #### L IPID, T7, CMP, TSH #### [facility] [address] [place] [address] Dr. Jorge Glaser FREE T3on 10-04-2022 FREE T3 2.15 pg/mlL Critically low 2.18-3.98 [facility] Comment on above: Performed By: #### L IPID, T7, CMP, TSH #### [facility] [address] [place] [address] Dr. Jorge Glaser POTASSIUMon 10-04-2022 Potassium [Moles/Vol] 3.5 mmol/L Normal 3.5-5.1 [facility] Comment on above: Performed By: #### L IPID, T7, CMP, TSH #### [facility] [address] [place] [address] Dr. Jorge Glasre T4on 10-04-2022 T4 [Mass/Vol] 6.50 ug/dL Normal 4.80-13.90 [facility] Comment on above: Performed By: #### T 4, TSH, FT3, K #### [facility] [address] [place] [address] Dr. Jorge Glaser TSHon 10-04-2022 TSH 4.603 uIU/mL Critically high 0.358-3.740 [facility] Comment on above: Performed By: #### L IPID, T7, CMP, TSH #### [facility] [address] [place] [address] Dr. Jorge Glaser OCC BLD IMMUNO SCREENon 08-15 OCCULT BLOOD Negative Normal NEGATIVE [facility] Comment on above: Performed By: #### O BSCRN #### [facility] [address] [place] [address] Dr. Jorge Glaser CBC AUTO DIFFon 09-01-2022 BASO # 0.1 103/ul Normal 0.0-0.1 [facility] Comment on above: Performed By: #### L IPID, T7, CMP, TSH #### [facility] [address] [place] [address] Dr. Jorge Glaser Basophils/100 WBC (Bld) 1.0 % Normal 0.2-2.0 [facility] Comment on above: Performed By: #### L IPID, T7, CMP, TSH #### [facility] [address] [place] [address] Dr. Jorge Glaser EO # 0.3 103/ul Normal 0.0-0.7 [facility] Comment on above: Performed By: #### L IPID, T7, CMP, TSH #### [facility] [address] [place] [address] Dr. Jorge Glaser Eosinophils/100 WBC (Bld) 3.8 % Normal 0.9-7.0 [facility] Comment on above: Performed By: #### L IPID, T7, CMP, TSH #### [facility] [address] [place] [address] Dr. Jorge Glaser Erythrocyte distribution width (RBC) [Ratio] 13.4 % Normal 11.0-15.0 [facility] Comment on above: Performed By: #### L IPID, T7, CMP, TSH #### [facility] [address] [place] [address] Dr. Jorge Glaser Hematocrit (Bld) [Volume fraction] 39.0 % Normal 36.0-48.0 [facility] Comment on above: Performed By: #### L IPID, T7, CMP, TSH #### [facility] [address] [address] [address] Jorge Glaser Hemoglobin (Bld) [Mass/Vol] 12.8 g/dL Normal 12.0-16.0 [facility] Comment on above: Performed By: #### L IPID, T7, CMP, TSH #### [facility] [address] [place] [place] [address] Dr. Jorge Glaser IG # 0.10 10e3/ul Critically high 0.00-0.03 [facility] Comment on above: Performed By: #### L IPID, T7, CMP, TSH #### [facility] [address] [place] [address] Dr. Jorge Glaser IG % 1.1 % Critically high 0.0-0.5 [facility] Comment on above: Performed By: #### L IPID, T7, CMP, TSH #### [facility] [address] [place] [address] Dr. Jorge Glaser LYMPH # 2.3 103/ul Normal 1.2-3.8 [facility] Comment on above: Performed By: #### L IPID, T7, CMP, TSH #### [facility] [address] [place] [address] Dr. Jorge Glaser Lymphocytes/100 WBC (Bld) 26.9 % Normal 20.5-60.0 [facility] Comment on above: Performed By: #### L IPID, T7, CMP, TSH #### [facility] [address] [place] [address] Dr. Jorge Glaser MANUAL DIFF REQ NO Normal [facility] Comment on above: Performed By: #### L IPID, T7, CMP, TSH #### [facility] [address] [place] [address] Dr. Jorge Glaser MCH (RBC) [Entitic mass] 29.4 pg Normal 26.7-34.0 [facility] Comment on above: Performed By: #### L IPID, T7, CMP, TSH #### [facility] [address] [place] [address] Dr. Jorge Glaser MCHC (RBC) [Mass/Vol] 32.8 g/dL Normal 29.9-35.2 [facility] Comment on above: Performed By: #### L IPID, T7, CMP, TSH #### [facility] [address] [place] [address] Dr. Jorge Glaser MCV (RBC) [Entitic vol] 89.7 fL Normal 81.0-99.0 [facility] Comment on above: Performed By: #### L IPID, T7, CMP, TSH #### [facility] [address] [place] [address] Dr. Jorge Glaser MONO # 0.8 103/ul Normal 0.3-0.8 [facility] Comment on above: Performed By: #### L IPID, T7, CMP, TSH #### [facility] [address] [place] [address] Dr. Jorge Glaser Monocytes/100 WBC (Bld) 9.1 % Normal 1.7-12.0 [facility] Comment on above: Performed By: #### L IPID, T7, CMP, TSH #### [facility] [address] [place] [address] Dr. Jorge Glaser NEUT # 5.1 103/ul Normal 1.4-6.5 [facility] Comment on above: Performed By: #### L IPID, T7, CMP, TSH #### [facility] [address] [place] [address] Dr. Jorge Glaesr Neutrophils/100 WBC (Bld) 58.1 % Normal 43.0-75.0 [facility] Comment on above: Performed By: #### L IPID, T7, CMP, TSH #### [facility] [address] [place] [address] Dr. Jorge Glaser Platelet mean volume (Bld) [Entitic vol] 8.8 fL Critically low 9.5-13.5 [facility] Comment on above: Performed By: #### L IPID, T7, CMP, TSH #### [facility] [address] [address] [address] Jorge Glaser PLT 158 103/ul Normal 150-450 [facility] Comment on above: Performed By: #### L IPID, T7, CMP, TSH #### [facility] [address] [address] [address] Jorge Glaser RBC 4.35 106/ul Normal 4.20-5.40 [facility] Comment on above: Performed By: #### L IPID, T7, CMP, TSH #### [facility] [address] [place] [address] Dr. Jorge Glaser WBC 8.7 103/ul Normal 4.0-11.0 [facility] Comment on above: Performed By: #### L IPID, T7, CMP, TSH #### [facility] [address] [place] [address] Dr. Jorge Glaser FREE THYROXINE INDEX T7on FTI 2.15 Normal 1.30-4.50 [facility] Comment on above: Performed By: #### L IPID, T7, CMP, TSH #### [facility] [address] [place] [address] Dr. Jorge Glaser T3U 33.0 % Normal 30.0-39.0 [facility] Comment on above: Performed By: #### L IPID, T7, CMP, TSH #### [facility] [address] [place] [address] Dr. Jorge Glaser T4 [Mass/Vol] 6.50 ug/dL Normal 4.80-13.90 [facility] Comment on above: Performed By: #### L IPID, T7, CMP, TSH #### [facility] [address] [place] [address] Dr. Jorge Glaser GLYCOHEMOGLOBIN A1Con 2022 ADA RECOMMENDATION SEE BELOW Normal [facility] Comment on above: Result Comment: ADA RECOMMENDED LIMIT 4.0 - 6.0 ADA THERAPEUTIC TARGET < 7.0 ACTION SUGGESTED > 7.0 Performed By: #### A 1C #### [facility] [address] [address] [address] Jorge Glaser Glucose [Mass/Vol] 137 mg/dL Normal [facility] Comment on above: Performed By: #### A 1C #### [facility] [address] [address] [address] Jorge Glaser HbA1c (Bld) [Mass fraction] 6.4 % Critically high 4.5-6.2 [facility] Comment on above: Performed By: #### A 1C #### [facility] [address] [place] [address] Dr. Jorge Glaser IRONon 09-01-2022 Iron [Mass/Vol] 58.0 ug/dL Normal 50.0-170.0 [facility] Comment on above: Performed By: #### I DAVID #### [facility] [address] [place] [address] Dr. Jorge Glaser LIPID PROFILEon 09-01-2022 CHOL-HDL RATIO NORM SEE BELOW Normal [facility] Comment on above: Result Comment: 3.3 - 4.4 LOW RISK 4.4 - 7.1 AVERAGE RISK 7.1 - 11.0 MODERATE RISK >11.0 HIGH RISK Performed By: #### L IPID, T7, CMP, TSH #### [facility] [address] [address] [address] Jorge Glaser Cholesterol [Mass/Vol] 128 mg/dL Normal <=200 [facility] Comment on above: Performed By: #### L IPID, T7, CMP, TSH #### [facility] [address] [address] [address] Jorge Glaser Cholesterol in HDL [Mass/Vol] 61 mg/dL Critically high 40-60 [facility] Comment on above: Performed By: #### L IPID, T7, CMP, TSH #### [facility] [address] [address] [address] Jorge Glaser Cholesterol in LDL [Mass/Vol] 49.0 mg/dL Normal [facility] Comment on above: Performed By: #### L IPID, T7, CMP, TSH #### [facility] [address] [address] [address] Jorge Glaser Cholesterol.total/ Cholesterol in HDL [Mass ratio] 2.1 {ratio} Normal [facility] Comment on above: Performed By: #### L IPID, T7, CMP, TSH #### [facility] [address] [address] [address] Jorge Glaser HDL NORMAL > or = 60 mg/dl - LO W CARDIOVASCULAR RISK <40 mg/dl - HIGH CARDIOVASCULAR RISK Normal [facility] Comment on above: Performed By: #### L IPID, T7, CMP, TSH #### [facility] [address] [address] [address] Jorge Glaser LDL CALC NORMAL SEE BELOW Normal [facility] Comment on above: Result Comment: <100 mg/dl OPTIMAL 100 - 129 mg/dl NEAR OR ABOVE OPTIMAL 130 - 159 mg/dl BORDERLINE HIGH 160 - 189 mg/dl HIGH >190 mg/dl VERY HIGH Performed By: #### L IPID, T7, CMP, TSH #### [facility] [address] [address] [address] Jorge Glaser Triglyceride [Mass/Vol] 90 mg/dL Normal <=150 [facility] Comment on above: Performed By: #### L IPID, T7, CMP, TSH #### [facility] [address] [address] [address] Jorge Glaser VLDL CALC 18.0 mg/dL Normal [facility] Comment on above: Performed By: #### L IPID, T7, CMP, TSH #### [facility] [address] [address] [address] Jorge Glaser PROF 14(COMP METB)on 023 Albumin [Mass/Vol] 3.5 g/dL Normal 3.4-5.0 [facility] Comment on above: Performed By: #### L IPID, T7, CMP, TSH #### [facility] [address] [address] [address] Jorge Glaser Albumin/Globulin [Mass ratio] 1.1 {ratio} Normal [facility] Comment on above: Performed By: #### L IPID, T7, CMP, TSH #### [facility] [address] [address] [address] Jorge Glaser ALP [Catalytic activity/Vol] 42 U/L Critically low 46-116 [facility] Comment on above: Performed By: #### L IPID, T7, CMP, TSH #### [facility] [address] [address] [address] Jorge Glaser ALT [Catalytic activity/Vol] 23 U/L Normal 14-59 [facility] Comment on above: Performed By: #### L IPID, T7, CMP, TSH #### [facility] [address] [address] [address] Jorge Glaser Anion gap [Moles/Vol] 10.0 mmol/L Normal [facility] Comment on above: Performed By: #### L IPID, T7, CMP, TSH #### [facility] [address] [place] [address] Dr. Jorge Glaser AST [Catalytic activity/Vol] 21 U/L Normal 15-37 [facility] Comment on above: Performed By: #### L IPID, T7, CMP, TSH #### [facility] [address] [address] [address] Jorge Glaser Bilirubin [Mass/Vol] 0.5 mg/dL Normal 0.2-1.0 [facility] Comment on above: Performed By: #### L IPID, T7, CMP, TSH #### [facility] [address] [address] [address] Jorge Glaser Calcium [Mass/Vol] 9.2 mg/dL Normal 8.5-10.1 [facility] Comment on above: Performed By: #### L IPID, T7, CMP, TSH #### [facility] [address] [address] [address] Jorge Glaser Chloride [Moles/Vol] 99 mmol/L Normal 98-107 [facility] Comment on above: Performed By: #### L IPID, T7, CMP, TSH #### [facility] [address] [address] [address] Jorge Glaser CO2 [Moles/Vol] 32.2 mmol/L Critically high 21.0-32.0 [facility] Comment on above: Performed By: #### L IPID, T7, CMP, TSH #### [facility] [address] [place] [address] Dr. Jorge Glaser Creatinine [Mass/Vol] 0.78 mg/dL Normal 0.55-1.02 [facility] Comment on above: Performed By: #### L IPID, T7, CMP, TSH #### [facility] [address] [address] [address] Jorge Glaser EGFR-AF MONGOLIAN >60 Normal >=60 [facility] Comment on above: Performed By: #### L IPID, T7, CMP, TSH #### [facility] [address] [place] [address] Dr. Jorge Glaser EGFR-NON AF MONGOLIAN >60 Normal >=60 [facility] Comment on above: Performed By: #### L IPID, T7, CMP, TSH #### [facility] [address] [place] [address] Dr. Jorge Glaser Globulin (S) [Mass/Vol] 3.2 g/dL Normal [facility] Comment on above: Performed By: #### L IPID, T7, CMP, TSH #### [facility] [address] [place] [address] Dr. Jorge Glaser Glucose [Mass/Vol] 100 mg/dL Normal 74-106 [facility] Comment on above: Performed By: #### L IPID, T7, CMP, TSH #### [facility] [address] [place] [address] Dr. Jorge Glaser Potassium [Moles/Vol] 3.2 mmol/L Critically low 3.5-5.1 [facility] Comment on above: Performed By: #### L IPID, T7, CMP, TSH #### [facility] [address] [place] [address] Dr. Jorge Glaser Protein [Mass/Vol] 6.7 g/dL Normal 6.4-8.2 [facility] Comment on above: Performed By: #### L IPID, T7, CMP, TSH #### [facility] [address] [address] [address] Jorge Glaser Sodium [Moles/Vol] 138 mmol/L Normal 136-145 [facility] Comment on above: Performed By: #### L IPID, T7, CMP, TSH #### [facility] [address] [address] [address] Jorge Glaser Urea nitrogen [Mass/Vol] 17.0 mg/dL Normal 7.0-18.0 [facility] Comment on above: Performed By: #### L IPID, T7, CMP, TSH #### [facility] [address] [address] [address] Jorge Glaser Urea nitrogen/Creatinin e [Mass ratio] 21.8 mg/mg Normal [facility] Comment on above: Performed By: #### L IPID, T7, CMP, TSH #### [facility] [address] [address] [address] Jorge Glaser TSHon 09-01-2022 TSH 4.483 uIU/mL Critically high 0.358-3.740 [facility] Comment on above: Performed By: #### L IPID, T7, CMP, TSH #### [facility] [address] [address] [address] Jorge Glaser XR DEXA BONE DENSITYon [...] KD DALY Date: 2022-08-27 16:23 Normal [facility] CBC AUTO DIFFon 05-22-2022 BASO # 0.1 103/ul Normal 0.0-0.1 [facility] Comment on above: Performed By: #### L IPID, T7, CMP, TSH #### [facility] [address] [place] [address] Dr. Jorge Glaser Basophils/100 WBC (Bld) 0.5 % Normal 0.2-2.0 [facility] Comment on above: Performed By: #### L IPID, T7, CMP, TSH #### [facility] [address] [place] [address] Dr. Jorge Glaser EO # 0.2 103/ul Normal 0.0-0.7 [facility] Comment on above: Performed By: #### L IPID, T7, CMP, TSH #### [facility] [address] [place] [address] Dr. Jorge Glaser Eosinophils/100 WBC (Bld) 2.0 % Normal 0.9-7.0 [facility] Comment on above: Performed By: #### L IPID, T7, CMP, TSH #### [facility] [address] [place] [address] Dr. Jorge Glaser Erythrocyte distribution width (RBC) [Ratio] 14.1 % Normal 11.0-15.0 [facility] Comment on above: Performed By: #### L IPID, T7, CMP, TSH #### [facility] [address] [place] [address] Dr. Jorge Glaser Hematocrit (Bld) [Volume fraction] 42.2 % Normal 36.0-48.0 [facility] Comment on above: Performed By: #### L IPID, T7, CMP, TSH #### [facility] [address] [place] [address] Dr. Jorge Glaser Hemoglobin (Bld) [Mass/Vol] 14.2 g/dL Normal 12.0-16.0 [facility] Comment on above: Performed By: #### L IPID, T7, CMP, TSH #### [facility] [address] [place] [address] Dr. Jorge Glaser IG # 0.08 10e3/ul Critically high 0.00-0.03 [facility] Comment on above: Performed By: #### L IPID, T7, CMP, TSH #### [facility] [address] [address] [address] Jorge Glaser IG % 0.8 % Critically high 0.0-0.5 [facility] Comment on above: Performed By: #### L IPID, T7, CMP, TSH #### [facility] [address] [place] [address] Dr. Jorge Glaser LYMPH # 1.2 103/ul Normal 1.2-3.8 [facility] Comment on above: Performed By: #### L IPID, T7, CMP, TSH #### [facility] [address] [place] [address] Dr. Jorge Glaser Lymphocytes/100 WBC (Bld) 11.9 % Critically low 20.5-60.0 [facility] Comment on above: Performed By: #### L IPID, T7, CMP, TSH #### [facility] [address] [address] [address] Jorge Glaser MANUAL DIFF REQ NO Normal [facility] Comment on above: Performed By: #### L IPID, T7, CMP, TSH #### [facility] [address] [place] [address] Dr. Jorge Glaser MCH (RBC) [Entitic mass] 30.8 pg Normal 26.7-34.0 [facility] Comment on above: Performed By: #### L IPID, T7, CMP, TSH #### [facility] [address] [place] [address] Dr. Jorge Glaser MCHC (RBC) [Mass/Vol] 33.6 g/dL Normal 29.9-35.2 [facility] Comment on above: Performed By: #### L IPID, T7, CMP, TSH #### [facility] [address] [place] [address] Dr. Jorge Glaser MCV (RBC) [Entitic vol] 91.5 fL Normal 81.0-99.0 [facility] Comment on above: Performed By: #### L IPID, T7, CMP, TSH #### [facility] [address] [address] [address] Jorge Glaser MONO # 0.5 103/ul Normal 0.3-0.8 [facility] Comment on above: Performed By: #### L IPID, T7, CMP, TSH #### [facility] [address] [place] [address] Dr. Jorge Glaser Monocytes/100 WBC (Bld) 5.0 % Normal 1.7-12.0 [facility] Comment on above: Performed By: #### L IPID, T7, CMP, TSH #### [facility] [address] [place] [address] Dr. Jorge Glaser NEUT # 8.3 103/ul Critically high 1.4-6.5 [facility] Comment on above: Performed By: #### L IPID, T7, CMP, TSH #### [facility] [address] [place] [address] Dr. Jorge Glaser Neutrophils/100 WBC (Bld) 79.8 % Critically high 43.0-75.0 [facility] Comment on above: Performed By: #### L IPID, T7, CMP, TSH #### [facility] [address] [place] [address] Dr. Jorge Glaser Platelet mean volume (Bld) [Entitic vol] 9.0 fL Critically low 9.5-13.5 [facility] Comment on above: Performed By: #### L IPID, T7, CMP, TSH #### [facility] [address] [place] [address] Dr. Jorge Glaser PLT 154 103/ul Normal 150-450 [facility] Comment on above: Performed By: #### L IPID, T7, CMP, TSH #### [facility] [address] [place] [address] Dr. Jorge Glaser RBC 4.61 106/ul Normal 4.20-5.40 [facility] Comment on above: Performed By: #### L IPID, T7, CMP, TSH #### [facility] [address] [address] [address] Jorge Glaser WBC 10.4 103/ul Normal 4.0-11.0 [facility] Comment on above: Performed By: #### L IPID, T7, CMP, TSH #### [facility] [address] [address] [address] Jorge Glaser PROF CHEM 8 (BAS METB)on Anion gap [Moles/Vol] 9.0 mmol/L Normal [facility] Comment on above: Performed By: #### L IPID, T7, CMP, TSH #### [facility] [address] [address] [address] Jorge Glaser Calcium [Mass/Vol] 10.0 mg/dL Normal 8.5-10.1 [facility] Comment on above: Performed By: #### L IPID, T7, CMP, TSH #### [facility] [address] [place] [address] Dr. Jorge Glaser Chloride [Moles/Vol] 94 mmol/L Critically low 98-107 [facility] Comment on above: Performed By: #### L IPID, T7, CMP, TSH #### [facility] [address] [place] [address] Dr. Jorge Glaser CO2 [Moles/Vol] 31.4 mmol/L Normal 21.0-32.0 [facility] Comment on above: Performed By: #### L IPID, T7, CMP, TSH #### [facility] [address] [place] [address] Dr. Jorge Glaser Creatinine [Mass/Vol] 0.69 mg/dL Normal 0.55-1.02 [facility] Comment on above: Performed By: #### L IPID, T7, CMP, TSH #### [facility] [address] [place] [address] Dr. Jorge Glaser EGFR-AF MONGOLIAN >60 Normal >=60 [facility] Comment on above: Performed By: #### L IPID, T7, CMP, TSH #### [facility] [address] [place] [address] Dr. Jorge Glaser EGFR-NON AF MONGOLIAN >60 Normal >=60 [facility] Comment on above: Performed By: #### L IPID, T7, CMP, TSH #### [facility] [address] [address] [address] Jorge Glaser Glucose [Mass/Vol] 129 mg/dL Critically high 74-106 [facility] Comment on above: Performed By: #### L IPID, T7, CMP, TSH #### [facility] [address] [address] [address] Jorge Glaser Potassium [Moles/Vol] 3.4 mmol/L Critically low 3.5-5.1 [facility] Comment on above: Performed By: #### L IPID, T7, CMP, TSH #### [facility] [address] [address] [address] Jorge Glaser Sodium [Moles/Vol] 131 mmol/L Critically low 136-145 [facility] Comment on above: Performed By: #### L IPID, T7, CMP, TSH #### [facility] [address] [address] [address] Jorge Glaser Urea nitrogen [Mass/Vol] 17.0 mg/dL Normal 7.0-18.0 [facility] Comment on above: Performed By: #### L IPID, T7, CMP, TSH #### [facility] [address] [address] [address] Jorge Glaser Urea nitrogen/Creatinin e [Mass ratio] 24.6 mg/mg Normal [facility] Comment on above: Performed By: #### L IPID, T7, CMP, TSH #### [facility] [address] [address] [address] Jorge Glaser NM STRESS/REST MULTIon 03-22 NM STRESS/REST MULTI Patient: KAREN GIFFORD Exam Date: 03/22/2022 : 1935 Gender:F Ordering : DR VINCENZO PATEL . Admission #: [id number] Family : CHILANGO SANDOVAL [employer] Order #: [id number] CLICK HERE TO VIEW EXAM RADIOLOGY REPORT [...] Rachel MD on 03/23/2022 at 11:42 Normal [facility] Ambulatory Clinical Summaryo n 02-17-2021 Ambulatory Clinical Summary {[id number]}CD: [id number] Normal [facility] Historical Records Officeon 02-17-2021 Historical Records Office [id number]:[address] [facility] Physician Referralon 021 Physician Referral [id number]:[address] [facility] Provider Letter FTMCon 11-20 Provider Letter [facility] Vincenzo Patel, [address] [place] [address] [place] [address] Re: KAREN GIFFORD Date of : 1935 Thank you for your referral of Karen Gifford who was seen on consultation for sebaceous cyst left upper back on November 19, 2020. I have enclosed my consultation note for your review. I will be happy to follow Karen should her symptoms persist. Sincerely, Avtar Jones MD General Surgery Normal [facility] Ambulatory Clinical Summaryo n 11-19-2020 Ambulatory Clinical Summary {[id number]}CD: [id number] Normal [facility] General Surgery Office/Clini c Noteon 11-19-2020 [...] one recently removed form right forehead by Swamper. Review of Systems ROS - Provider Constitutional: [...] CORDON, Avtar Siegel Only if needed [address] [place] [address]- Additional Instructions: Patient Education Epidermal [...] mg= 1 tab(s), Oral, BID Dry Eye [place] Benefits, Oral, BID hydrALAZINE 50 mg Tab, [...] Tobacco Use:. 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 How is this treated? In many cases, [...] Follow these instructions at home: ? Take banx-shx-gcptujh and prescription medicines only as told by [...] mouth or through an injection. ? Take tfvl-wnt-mmhapry and prescription medicines only as told by [...] 07/02/2005 Document Revised: 11/22/2019 Document Reviewed: 02/12/2019 [employer] Patient Education ? 2019 [employer] [facility] Physician Referralon 021 Physician Referral [id number]:127 [facility] Vital Signs Date Time Vital Sign Value Performing Clinician Low meyers 03-29-2024 13:57-0400 Body height 170.2 cm Kiko Barba [employer] Work Phone: [facility] 03-29-2024 13:57-0400 Body mass index (BMI) [Ratio] 21.61 kg/m2 Kikoramu Barba [employer] Work Phone: [facility] 03-29-2024 13:57-0400 Body weight 62.6 kg Kikoramu Barba [employer] Work Phone: [facility] 03-29-2024 13:57-0400 Diastolic blood pressure 68 mm[Hg] Kikoramu Barba [employer] Work Phone: [facility] 03-29-2024 13:57-0400 Heart rate 93 /min Kiko Barba [employer] Work Phone: [facility] 03-29-2024 13:57-0400 Systolic blood pressure 114 mm[Hg] Kikoramu Barba [employer] Work Phone: [facility] 06-28-2023 13:37-0500 Body height 170.2 cm Jay Munoz MD Work Phone: [facility] 06-28-2023 13:37-0500 Diastolic blood pressure 60 mm[Hg] Jay Munoz MD Work Phone: [facility] 06-28-2023 13:37-0500 Heart rate 77 /min Jay Munoz MD Work Phone: [facility] 06-28-2023 13:37-0500 Systolic blood pressure 90 mm[Hg] Jay Munoz MD Work Phone: [facility] Encounters Encounter Date Encounter Type Care Provider Facility Start: 03-29-2024 End: 04-02-2024 ambulatory [facility] Start: 03-29-2024 End: 03-29-2024 Office outpatient visit 40 minutes Kiko Barba CNP Work Phone: [facility] Comment on above: Persistent atrial fi brillation (HCC) (Primary Dx); PAF (paroxysmal atrial fibrillation) (HCC); SSS (sick sinus syndrome) (HCC); Presence of cardiac pacemaker; Pericardial effusion; Pleural effusion Start: 03-29-2024 End: 03-30-2024 ambulatory [facility] Amb[facility] Start: 03-28-2024 End: 03-28-2024 ambulatory [facility] Start: 03-27-2024 End: 03-27-2024 Orders Only Kiko Barba CAR SUPERVISOR Work Phone: [facility] Comment on above: PAF (paroxysmal atri al fibrillation) (HCC) (Primary Dx) Start: 03-14-2024 Evaluation and manag ement of inpatient [facility] Start: 03-14-2024 Evaluation and manag ement of inpatient [facility] Start: 03-13-2024 Evaluation and manag ement of inpatient [facility] Start: 03-12-2024 Evaluation and manag ement of inpatient [facility] Start: 03-10-2024 Evaluation and manag ement of inpatient [facility] Start: 03-09-2024 Evaluation and manag ement of inpatient [facility] Start: 03-09-2024 Evaluation and manag ement of inpatient [facility] Start: 03-09-2024 [facility]: 03-08-2024 End: 03-15-2024 Evaluation and management of inpatient UNKNOWN UNKNOWN [facility] Start: 02-02-2024 Orders Only Jay Munoz MD Work Phone: [facility] Comment on above: PAF (paroxysmal atri al fibrillation) (HCC) (Primary Dx); Presence of cardiac pacemaker Start: 01-02-2024 End: 01-02-2024 ambulatory LORIE PARK Not Available Start: 12-01-2023 ambulatory ABIMBOLA CHACON [facility] Start: 12-01-2023 End: 12-01-2023 Office outpatient visit 15 minutes Abimbola Chacon MD Work Phone: [facility] Comment on above: Primary open-angle g laucoma, bilateral, indeterminate stage (Primary Dx) Start: 11-23-2023 End: 12-08-2023 ambulatory [facility] Start: 06-28-2023 End: 06-29-2023 ambulatory [facility] Start: 06-28-2023 End: 06-28-2023 Office outpatient new 60 minutes Jay Munoz MD Work Phone: [facility] Comment on above: PAF (paroxysmal atri al fibrillation) (HCC) (Primary Dx); Presence of cardiac pacemaker; SSS (sick sinus syndrome) (HCC); Hypertension, unspecified type; Heart failure with preserved ejection fraction, unspecified HF chronicity (HCC) Start: 06-28-2023 End: 06-29-2023 ambulatory JAY MUNOZ [facility] Ambulatory Start: 06-23-2023 Orders Only Jay Munoz MD Work Phone: [facility] Comment on above: PAF (paroxysmal atri al fibrillation) (HCC) (Primary Dx) Start: 06-03-2023 End: 06-03-2023 ambulatory NADEEM ABBASI [facility] Start: 05-31-2023 ambulatory ABIMBOLA Saba y:[facility] Start: 05-31-2023 End: 05-31-2023 Office outpatient new 45 minutes Abimbola Chacon MD Work Phone: [facility] Comment on above: Primary open-angle g laucoma, bilateral, indeterminate stage (Primary Dx); PCO (posterior capsular opacification), left Start: 05-06-2023 End: 05-06-2023 ambulatory [facility] Start: 04-12-2023 End: 04-12-2023 ambulatory [facility] Start: 03-09-2023 End: 03-10-2023 ambulatory VINCENZO PATEL [facility] Start: 12-27-2022 End: 12-28-2022 ambulatory CHILANGO SANDOVAL Facility:[facility] Start: 12-01-2022 End: 12-02-[address] VINCENZO PATEL . Facility:[facility] Start: 11-11-2022 End: 11-12-[address] VINCENZO PATEL . Facility:[facility] Start: 11-04-2022 End: 11-05-[address] VINCENZO PATEL . Facility:[facility] Start: 10-04-2022 End: 10-05-[address] VINCENZO PATEL . Facility:[facility] Start: 09-01-2022 End: 09-02-[address] VINCENZO PATEL . Facility:[facility] Start: 08-27-2022 End: 08-28-[address] VINCENZO PATEL . Facility:[facility] Start: 08-27-2022 End: 09-11-[address] VINCENZO PATEL . Facility:[facility] Start: 05-22-2022 End: 05-22-[address] VINCENZO PATEL . Facility:[facility] Start: 03-22-2022 End: 03-23-[address] VINCENZO PATEL . Facility:[facility] Procedures Date Procedure Procedure Detail Performing Clinician Start: 03-29-2024 Ecg routine ecg w/le ast 12 lds w/i&r Kiko Barba CNP Work Phone: Start: 12-01-2023 Visual field xm uni/ bi w/interp extended exam Abimbola Chacon MD Work Phone: Start: 06-28-2023 Ecg routine ecg w/le ast 12 lds w/i&r Jay Munoz MD Work Phone: Start: 06-03-2023 Follow-up visit JJ PINEDA Start: 05-31-2023 Computerized ophthal jennifer imaging optic nerve Abimbola Chacon MD Work Phone: Start: 05-31-2023 Post-cataract laser surgery Abimbola Chacon MD Work Phone: Start: 05-06-2023 Follow-up visit JJ PINEDA Plan of Treatment Date Care Activity Detail Author Start: 06-09-2032 Tetanus vaccination [facility] Start: 03-13-2025 End: 03-13-2025 ambulatory 03/13/2025 1:15 PM EDT Device Check OP [facility] [address] [place] [address] [facility] Start: 07-02-2024 End: 07-02-2024 ambulatory 07/02/2024 3:30 PM EST Device Check OP [facility] [address] [place] [phone] [facility] Start: 06-28-2024 CLASS III : OFFICE VISIT CLASS III : OFFICE VISIT [facility] Start: 06-04-2024 End: 06-04-2024 Patient encounter procedure 06/04/2024 3:30 PM EDT Office Visit [facility] [address] [place] [address] Abimbola Chacon MD [address] [place] [address] [facility] Start: 04-15-2024 Influenza vaccination Influenza Vacc ine (#1) [facility] Start: 03-29-2024 End: 03-29-2024 Patient encounter procedure 03/29/2024 2:10 PM EDT Office Visit [facility] [address] [place] [phone] Kiko Barba, DENISE [address] [place] [address] [facility] Start: 03-27-2024 End: 03-27-2025 12 lead ECG ECG 12 lead ECG Routine PAF (paroxysmal atrial fibrillation) ([facility]) Expected: 03/27/2024, Expires: 03/27/2025 [facility] Work Phone: Comment on above: Expected: 03/27/2024 , Expires: 03/27/2025 Start: 03-14-2024 End: 03-14-2024 Patient encounter procedure [facility] Start: 02-21-2024 End: 02-21-2024 Patient encounter procedure 02/21/2024 7:00 AM EDT Appointment [facility] [address] [place] [phone] Simone Campoverde MD [address] [place] [address] [facility] Start: 12-27-2023 End: 12-27-2023 Patient encounter procedure 12/27/2023 1:50 PM EDT Office Visit [facility] [address] [place] [phone] Jay Munoz MD [address] [place] [address] [facility] Start: 12-01-2023 End: 12-01-2023 Patient encounter procedure 12/01/2023 10:30 AM EDT Office Visit [facility] [address] [place] [phone] Abimbola Chacon MD [address] [place] [address] [facility] Start: 09-26-2023 COVID-19 Vaccine ( season) COVID-19 Vaccine ( season) [facility] Start: 06-28-2023 End: 06-28-2023 Patient encounter procedure 06/28/2023 1:00 PM EST Office Visit [facility] [address] [place] [phone] Jay Munoz MD [address] [place] [address] [facility] Start: 04-15-2023 COVID-19 VACCINE ( season) COVID-19 VACCINE ( season) [facility] Start: 04-15-2023 Influenza vaccination Sequenti al Influenza Vaccine (#1) [facility] Start: 01-23-2015 Screening for malign ant neoplasm of breast MAMMOGRAM SCREENING DISCUSSION [facility] Start: 2002 Fall risk assessment Falls Risk Asse ssment [facility] Start: 2002 Pneumococcal vaccination [facility] Start: 2002 Pneumococcal Vaccine : Age 65+ (1 - PCV) Pneumococcal Vaccine: Age 65+ (1 - PCV) [facility] Start: 2002 Pneumococcal Vaccine : Age 65+ (1 of 1 - PCV) Pneumococcal Vaccine: Age 65+ (1 of 1 - PCV) [facility] Start: 1987 Administration of he rpes zoster vaccine Zoster Vaccines (1 of 2) [facility] Start: 1987 Zoster vaccine hzv l trace for subcutaneous use ZOSTER (SHINGLES) VACCINE (1 of 2) [facility] Start: 1982 Screening for malign ant neoplasm of colon COLORECTAL CANCER SCREENING DISCUSSION [facility] Start: 1958 Screening for malign ant neoplasm of cervix CERVICAL CANCER SCREENING DISCUSSION [facility] Start: 1949 Depression screening using PHQ-9 (Patient Health Questionnaire 9) score [facility] Start: 1943 Pneumococcal Vaccine : Age 65+ (1 of 2 - PCV) Pneumococcal Vaccine: Age 65+ (1 of 2 - PCV) [facility] Start: 1940 History and physical examination, annual for health maintenance Wellness Visit [facility] Start: 1940 Medicare Wellness Visit Medicare Wel lness Visit [facility] Start: 1937 Alanine aminotransfe rase measurement CLASS III : ALT [facility] Start: 1937 CLASS III : AST CLASS III : AST [facility] Start: 1937 CLASS III : CXR CLASS III : CXR [facility] Start: 1937 CLASS III : EKG CLASS III : EKG [facility] Start: 1937 CLASS III : PFT CLASS III : PFT [facility] Start: 1937 Potassium [Moles/vol ume] in Serum or Plasma POTASSIUM [facility] Start: 1937 Screening for osteoporosis [facility] Start: 1937 Thyroid stimulating hormone measurement [facility] End: 06-23-2024 12 lead ECG ECG 12 lead ECG Routine PAF (paroxysmal atrial fibrillation) (HCC) 1 Occurrences starting 06/23/2023 until 06/23/2024 [facility] Work Phone: Comment on above: 1 Occurrences starti ng 06/23/2023 until 06/23/2024 End: 02-01-2025 12 lead ECG ECG 12 lead ECG Routine PAF (paroxysmal atrial fibrillation) (HCC) Presence of cardiac pacemaker 4 Occurrences starting 02/02/2024 until 02/01/2025 [facility] Work Phone: Comment on above: 4 Occurrences starti ng 02/02/2024 until 02/01/2025 12 lead ECG ECG 12 lead ECG Routine PAF (paroxysmal atrial fibrillation) (HCC) 03/29/2024 1:48 PM EDT [facility] Work Phone: Ophthalmic us dx cor [place] pachymetry uni/bi PACHYMETRY-OU MI Charge Routine Primary open-angle glaucoma, bilateral, indeterminate stage Ordered: 05/31/2023 [facility] Comment on above: Ordered: 05/31/2023 Immunizations Immunization Date Immunization Notes Care Provider Andreia white 05-26-2023 influenza virus vacc ine, unspecified formulation Kiko Jameson [facility] Work Phone: [facility] Payers Date Payer Category Payer Private Health Insurance LISSA BOGGS OTHER AFTER MEDICARE [id number] 2016-Present [phone] [address] [address] [place] [address] [id number] 2002 Medicare [id number] 1959 Medicare [id number] 1959 Private Health Insurance [id number] 1937 Unknown [id number] [id number] .593 1937 Unknown [id number] 2.16.840.1.719417.3.579.2 .59 1937 Unknown [id number] 2.16.840.1.134170.3.579.2 .593 1937 Unknown [id number] 2.16.840.1.464074.3.579.2 .59 1937 Unknown [id number] 2.16.840.1.891583.3.579.2 .593 1937 Unknown [id number] 2.16.840.1.075313.3.579.2 .593 1937 Unknown [id number] 2.16.840.1.762902.3.579.2 .593 1937 Unknown [id number] 2.16.840.1.928933.3.579.2 .593 1937 Unknown [id number] 2.16.840.1.538745.3.579.2 .593 1937 Unknown [id number] 2.16.840.1.004670.3.579.2 .593 1937 Unknown [id number] 2.16.840.1.104126.3.579.2 .173 1937 Unknown [id number] 2.16.840.1.653810.3.579.2 .594 1937 Unknown [id number] 2.16.840.1.754415.3.579.2 .594 1937 Unknown [id number] 2.16.840.1.445511.3.579.2 .900 1937 Unknown [id number] 2.16.840.1.960514.3.579.2 .900 1937 Unknown [id number] 2.16.840.1.788139.3.579.2 .1259 1937 Unknown [id number] 2.16.840.1.850647.3.579.2 .903 1937 Unknown [id number] 2.16.840.1.867322.3.579.2 .903 1937 Unknown [id number] 2.16.840.1.803486.3.579.2 .903 Social History Date Type Detail Facility Start: 05-31-2023 End: 06-28-2023 Tobacco smoking status NHIS Never smoked tobacco [facility] Start: 05-31-2023 End: 06-28-2023 Tobacco use and exposure Smokeless tobacco non-user [facility] Start: 05-31-2023 End: 12-01-2023 Alcohol intake Ex-drinker (finding) [facility] Start: 05-31-2023 End: 06-28-2023 History of Social function [facility] Start: 05-31-2023 End: 06-28-2023 Tobacco use panel [facility] Start: 1935 Sex Assigned At Not on file [facility] Tobacco smoking status NHIS Tobacco smoking consumption unknown [facility] Start: 06-28-2023 End: 03-29-2024 Alcohol intake Lifetime non-drinker (finding) [facility] Medical Equipment Procedure Code Equipment Code Equipment Origin al Text Equipment Identifier Dates Acclarent [id number] Edora 8 Chrissy [id number] Start: 05-12-2022 Acclarent [id number] 17 7 Solia S 53 [id number] Start: 05-12-2022 Acclarent 377 17 6 Solia S 45 [id number] Start: 05-12-2022 Clinical Notes 02-17-2021 to 03-29-2024 Patient InstructionsKiko Barba CNP - 03/29/2024 2:10 PM EDTMindi Holt - 12/01/2023 10:30 AM Oneil Chacon MD - 12/01/2023 10:30 AM Jay Tripp MD - 06/28/2023 1:00 PM EST Note Date & Type Note Facility 03-29-2024 Instructions Zee Hollis MA - 03/29/2024 2:19 PM EDT We will see you back in the office: as needed If you need to cancel or reschedule an appointment please call [phone]. If you have any questions please call SHERRY Burciaga directly at [phone]. documented in this encounter [facility] 03-29-2024 History of Present illness Narrative ELECTROPHYSIOLOGY Clinic Established Follow Up Visit Patient Name: Karen Gifford MR #: [id number] : 1935 Physicians: Vincenzo Patel MD (Family); No ref. provider found (Referring) Primary Application Processor: Dr. Jay Munoz Assessment and Plan: ASSESSMENT: Recent hospitalization for shortness of breath -found with large pericardial effusion status post pericardiocentesis -Found with large pleural effusion status post bilateral thoracentesis -Perhaps malignant? Persistent atrial fibrillation -[id number]: 5 on Xarelto -Rate control strategy previously prescribed on atenolol and diltiazem -Previous rhythm control with flecainide/amiodarone Sick sinus syndrome -Status post dual-chamber Biotronik pacemaker 2021 PLAN: -In A-fib today, rate controlled, for now I would recommend a conservative rate control strategy for numerous reasons including her age, lack of symptoms, normal EF, ability to rate control, severe left atrial enlargement, perhaps malignancy secondary to a large pericardial effusion, and the ability to limit anticoagulation in case the need were to arise. She already followed up with cardiology at [facility] and is due to follow-up with pulmonology soon to address her pleural effusions and perhaps discuss malignancy etiology. She is interested in consolidating care at [facility] which would be reasonable to keep her close to home. All of our records are available through care everywhere and able to be accessed at [facility]. We will be available for any as needed follow-ups if the need were to arise. FOLLOW UP IN: As needed Kiko Barba MS, ENGLISH TEACHER-CAR SUPERVISOR, AGACNP-[facility] Office Inpatient: Please contact me through secure chat To expedite correspondence this note was generated by [employer] voice recognition software. Some grammatical or spelling errors may occur using the system Chief Complaint/Reason for Visit: Follow up History of Present Illness: It is my pleasure to see Karen Gifford in the Electrophysiology Clinic on 03/29/24. As you recall, she has a PMH of hypertension, hyperlipidemia, LANEY, HFpEF, persistent atrial fibrillation, and sick sinus syndrome status post dual-chamber pacemaker implant. She is presenting today for posthospital follow-up. She is a patient of Dr. Munoz's.. Subjective: Doing well with no complaints Objective: as below EKG: interpreted by myself today as Atrial Fibrillation Echo: Stress: Cardiac Cath: History: Past Medical History: Diagnosis Date Arrhythmia Hypertension Past Surgical History: Procedure Laterality Date CARDIAC PACEMAKER PLACEMENT History reviewed. No pertinent family history. Social History Socioeconomic History Marital status: Tobacco Use Smoking status: Never Smokeless tobacco: Never Vaping Use Vaping status: Never Used Substance and Sexual Activity Alcohol use: Never Drug use: Never Social Determinants of Health Financial Resource Strain: Low Risk (03/08/2024) Received from [facility] Overall Financial Resource Strain (CARDIA) Difficulty of Paying Living Expenses: Not hard at all Food Insecurity: No Food Insecurity (03/08/2024) Received from [facility] Hunger Vital Sign Within the past 12 months, you worried that your food would run out before you got the money to buy more.: Never true Transportation Needs: No Transportation Needs (03/08/2024) Received from [facility] Transportation In the past 12 months, has lack of transportation kept you from medical appointments or from getting medications?: No Housing Stability: Low Risk (03/08/2024) Received from [facility] Housing Stability Vital Sign In the last 12 months, was there a time when you did not have a steady place to sleep or slept in a care home (including now)?: No Allergies: Calcium channel blocking agents-dihydropyridines, Enalapril maleate, Isosorbide, Lisinopril, Morphine, Nifedipine, and Sulfa (sulfonamide antibiotics) I have reviewed the patient's allergies. Home Medications: Current Outpatient Medications Medication Sig Dispense Refill atorvastatin (LIPITOR) 10 MG tablet Take 1 (one) tablet (10 mg total) by mouth every night at bedtime . bumetanide (BUMEX) 1 MG tablet Take 1 (one) tablet (1 mg total) by mouth daily . 90 tablet 3 cholecalciferol (VITAMIN D3) 250 mcg (10,000 unit) capsule as directed Orally ciclopirox (PENLAC) 8 % solution APPLY 1 SOLUTION TOPICALLY ONCE DAILY FOR 30 DAYS colchicine 0.6 mg tablet Take 1 (one) tablet (0.6 mg total) by mouth 2 (two) times a day . diltiazem (TIAZAC) 240 MG 24 hr capsule Take by mouth daily . latanoprost (XALATAN) 0.005 % ophthalmic solution every night at bedtime . liothyronine (CYTOMEL) 5 MCG tablet Take 2 (two) tablets (10 mcg total) by mouth daily . magnesium 250 mg Tab Take 1 (one) tablet (250 mg total) by mouth daily with lunch . metoprolol tartrate (LOPRESSOR) 50 MG tablet Take 1 (one) tablet (50 mg total) by mouth 3 (three) times a day . timolol (TIMOPTIC) 0.5 % ophthalmic solution every night at bedtime . Xarelto 20 mg Tab Take 1 (one) tablet (20 mg total) by mouth daily . albuterol (PROVENTIL) 2.5 mg /3 mL (0.083 %) nebulizer solution 3 mL as needed Inhalation every 6 hrs atenoloL (TENORMIN) 100 MG tablet Take 1 tablet twice a day by oral route for 90 days. hydrALAZINE (APRESOLINE) 100 MG tablet Take 1 tablet twice a day by oral route for 90 days. simvastatin (ZOCOR) 10 MG tablet Take 1 (one) tablet (10 mg total) by mouth daily . timoloL (BETIMOL) 0.25 % ophthalmic solution 1 (one) drop 2 (two) times a day . No current facility-administered medications for this visit. Review of Systems: Constitutional: No acute distress Skin: No concerns Eyes: Denies acute vision changes CV: Denies chest pain or palpitations Resp: Denies dyspnea or cough GI: Denies hematochezia, melena, abdominal bloating : Denies hemarturia or urinary symptoms MSK: Denies acute MSK pain Neuro: Denies acute neuro defecits Endo: Denies heat or cold intolerance Psych: No acute concerns Physical Examination: Vital Signs: BP 114/68 (BP Location: Left arm, Patient Position: Sitting, BP Cuff Size: Adult) Pulse 93 Ht 5' 7 Wt 62.6 kg (138 lb) BMI 21.61 kg/m General: No acute distress, vital signs as above HEENT: Head- normocephalic, PERRLA, hearing intact, Nose/Face- symmetrical Cardiovascular: iRRR, S1/S2, no MRG. No JVD Respiratory: CTA bilaterally without wheezing, rhonchi, rales. No use of accessory muscles GI: Soft, non-tender, non-distended, BSx4 : Voids painlessly without difficulty Extremities: Warm, well perfused. No peripheral edema Neurological: A&Ox4 Skin: Intact Musculoskeletal: moves all extremities Laboratory Reviewed: No results found for: TROPONINI , TROPONINT , NTPROBNP , DIGOXIN No results found for: GLUCOSE , CALCIUM , ICA , NA , K , CL , BUN , CREATININE , MG No results found for: WBC , HGB , HCT , MCV , EXTMCV , PLT , RBC No results found for: PTT , INR , PROTIME Additional Data Reviewed: Laboratory 03/29/24 2:23 PM Microbiology 03/29/24 2:23 PM Pathology 03/29/24 2:23 PM Radiology 03/29/24 2:23 PM Cardiology 03/29/24 2:23 PM Medications 03/29/24 2:23 PM Transcriptions 03/29/24 2:23 PM documented in this encounter [facility] 03-29-2024 Note ELECTROPHYSIOLOGY Cl inic Established Follow Up Visit Patient Name: Karen Gifford MR #: [id number] : 1935 Physicians: Vincenzo Patel MD (Family); No ref. provider found (Referring) Primary Application Processor: Dr. Jay Munoz Assessment and Plan: ASSESSMENT: Recent hospitalization for shortness of breath -found with large pericardial effusion status post pericardiocentesis -Found with large pleural effusion status post bilateral thoracentesis -Perhaps malignant? Persistent atrial fibrillation -[id number]: 5 on Xarelto -Rate control strategy previously prescribed on atenolol and diltiazem -Previous rhythm control with flecainide/amiodarone Sick sinus syndrome -Status post dual-chamber Biotronik pacemaker 2021 PLAN: -In A-fib today, rate controlled, for now I would recommend a conservative rate control strategy for numerous reasons including her age, lack of symptoms, normal EF, ability to rate control, severe left atrial enlargement, perhaps malignancy secondary to a large pericardial effusion, and the ability to limit anticoagulation in case the need were to arise. She already followed up with cardiology at [facility] and is due to follow-up with pulmonology soon to address her pleural effusions and perhaps discuss malignancy etiology. She is interested in consolidating care at [facility] which would be reasonable to keep her close to home. All of our records are available through care everywhere and able to be accessed at [facility]. We will be available for any as needed follow-ups if the need were to arise. FOLLOW UP IN: As needed Kiko Barba, MS, ENGLISH TEACHER-CAR SUPERVISOR, AGACNP-BC [facility] Inpatient: Please contact me through secure chat To expedite correspondence this note was generated by [employer] voice recognition software. Some grammatical or spelling errors may occur using the system Chief Complaint/Reason for Visit: Follow up History of Present Illness: It is my pleasure to see Karen Gifford in the Electrophysiology Clinic on 03/29/24. As you recall, she has a PMH of hypertension, hyperlipidemia, LANEY, HFpEF, persistent atrial fibrillation, and sick sinus syndrome status post dual-chamber pacemaker implant. She is presenting today for posthospital follow-up. She is a patient of Dr. Eid. Subjective: Doing well with no complaints Objective: as below EKG: interpreted by myself today as Atrial Fibrillation Echo: Stress: Cardiac Cath: History: Past Medical History: Diagnosis Date Arrhythmia Hypertension Past Surgical History: Procedure Laterality Date CARDIAC PACEMAKER PLACEMENT History reviewed. No pertinent family history. Social History Socioeconomic History Marital status: Tobacco Use Smoking status: Never Smokeless tobacco: Never Vaping Use Vaping status: Never Used Substance and Sexual Activity Alcohol use: Never Drug use: Never Social Determinants of Health Financial Resource Strain: Low Risk (03/08/2024) Received from [facility] Overall Financial Resource Strain (CARDIA) Difficulty of Paying Living Expenses: Not hard at all Food Insecurity: No Food Insecurity (03/08/2024) Received from [facility] Hunger Vital Sign Within the past 12 months, you worried that your food would run out before you got the money to buy more.: Never true Transportation Needs: No Transportation Needs (03/08/2024) Received from [facility] Transportation In the past 12 months, has lack of transportation kept you from medical appointments or from getting medications?: No Housing Stability: Low Risk (03/08/2024) Received from [facility] Housing Stability Vital Sign In the last 12 months, was there a time when you did not have a steady place to sleep or slept in a care home (including now)?: No Allergies: Calcium channel blocking agents-dihydropyridines, Enalapril maleate, Isosorbide, Lisinopril, Morphine, Nifedipine, and Sulfa (sulfonamide antibiotics) I have reviewed the patient's allergies. Home Medications: Current Outpatient Medications Medication Sig Dispense Refill atorvastatin (LIPITOR) 10 MG tablet Take 1 (one) tablet (10 mg total) by mouth every night at bedtime . bumetanide (BUMEX) 1 MG tablet Take 1 (one) tablet (1 mg total) by mouth daily . 90 tablet 3 cholecalciferol (VITAMIN D3) 250 mcg (10,000 unit) capsule as directed Orally ciclopirox (PENLAC) 8 % solution APPLY 1 SOLUTION TOPICALLY ONCE DAILY FOR 30 DAYS colchicine 0.6 mg tablet Take 1 (one) tablet (0.6 mg total) by mouth 2 (two) times a day . diltiazem (TIAZAC) 240 MG 24 hr capsule Take by mouth daily . latanoprost (XALATAN) 0.005 % ophthalmic solution every night at bedtime . liothyronine (CYTOMEL) 5 MCG tablet Take 2 (two) tablets (10 mcg total) by mouth daily . magnesium 250 mg Tab Take 1 (one) tablet (250 mg total) by mouth daily w (more content not included)... [facility] 03-28-2024 Note Follow up steven pompa Pt had labs yesterday. Patient is taken both lipitor, zocor. Review of Systems Respiratory: Positive for shortness of breath. [facility] 03-28-2024 Note [facility] 03-15-2024 Note [facility] 03-15-2024 Note [facility] 03-15-2024 Note [facility] 03-14-2024 Note [facility] 03-14-2024 Note [facility] 03-14-2024 Note Satisfactory for soraya roche. Examination of the ThinPrep slide and cell block reveals benign mesothelial cells and chronic inflammation. [facility] Comment on above: Performed By: #### L AB13 ####[facility] (BEAKER)[address] [place] [address] 03-14-2024 Note [facility] 03-14-2024 Note [facility] 03-14-2024 Note [facility] 03-14-2024 Note [facility] 03-13-2024 Note Occupational Therapy Name: Karen Gifford Date of : 1935 Today's Date: 03/13/24 Pt is unable to be seen for therapy at this time secondary to bedrest until 1700 per nsg . Check No Charge Time attempted: 1434 [facility] 03-13-2024 Note [facility] 03-13-2024 Note [facility] 03-13-2024 Note Satisfactory for soraya roche. Examination of the ThinPrep slide and cell block reveals abundant acute inflammation and rare mesothelial cells. [facility] Comment on above: Performed By: #### L AB13 ####[facility] (BEAKER)[address] [place] [address] 03-13-2024 Note [facility] 03-12-2024 Note [facility] 03-12-2024 Note [facility] 03-12-2024 Note [facility] 03-12-2024 Note [facility] 03-11-2024 Note [facility] 03-11-2024 Note [facility] 03-10-2024 Note [facility] 03-10-2024 Note [facility] 03-10-2024 Note [facility] 03-09-2024 Note [facility] 03-09-2024 Note [facility] 12-01-2023 History of Present illness Narrative [...] time was spent with patient performing the photonic laboratory technician work of this visit. Referring Physician: [...] ROS: complete review of systems performed by photonic laboratory technician, reviewed by me. OCT: baseline, good [...] resolved OS. documented in this encounter [facility] 06-28-2023 History of Present illness Narrative Electrophysiology Clinic Consult Heart & Vascular [facility] 06/28/2023 Jay Munoz MD [address] [facility] [id number] Patient: Karen Gifford Date of : [...] her age, doing water walking at the [facility] for 30 minutes twice per week. [...] 88 y.o. female who presents today to [facility]. The following issues were addressed at [...] daily indefinitely in the setting of a [id number] score of 5. Sick sinus syndrome status [...] members, referring and/or communicating with other health urgent care nurse practitioner, coordinating care, and documenting the above findings. documented in this encounter [facility] 06-28-2023 Instructions Janet Mendoza RN - 06/28/2023 12:44 PM EST Testing Ordered: None Medication Changes: Stop Amiodarone Lab Work Ordered: None To schedule any outpatient testing( if applicable) simply call [phone] and follow the prompts to schedule any outpatient testing. If you have any questions or concerns about today's visit please call Janet POWELL at [phone] documented in this encounter [facility] 06-03-2023 Note Stable Device interrogation q 6 months [facility] 06-03-2023 Note [facility] I-II, Currently pt is euvolemic without exacerbation Continue GDMT- continue bumex- Diuretic therapy Monitor daily weights, I&O, fluid restriction 1.5-2L/day, renal function and electrolytes [facility] 06-03-2023 Note Continue xarelto and amiodarone and atenolol [facility] 06-03-2023 Note [facility] 06-03-2023 Note [facility] 06-03-2023 Note [facility] 05-31-2023 History of Present illness Narrative [...] Glc Doctor [facility] for about doctor from [place] gave pt 2 corneal abrasions. Last edited by Shanique Ndiaye on 05/31/2023 10:14 AM. Allergies, medications & history reviewed & updated by Shanique Ndiaye REVIEW OF SYSTEMS Review of Systems 20 minutes of face to face time was spent with patient performing the photonic laboratory technician work of this visit. Referring Physician: [...] ROS: complete review of systems performed by photonic laboratory technician, reviewed by me. OCT: baseline, good [...] emergencies after hours [facility] Note [facility] 03-22-2022 Note CARDIAC STRESS TEST Requesting [...] and reported in a separate dictation. [facility] 02-17-2021 Note Chief Complaint referral for rectal [...] Mother. Mitral valve (more content not included)... [facility] Comment on above: Result Comment: Elec tronically Signed By: CAITLIN CORDON, Avtar Lobo.dalton\Date and Time Signed: 02/17/21 14:39 EDT Evaluation note Diagnosis Primary open-angle glaucoma, bilateral, indeterminate stage- Primary PCO (posterior capsular opacification), left After-cataract, unspecified [facility]F (paroxysmal atrial fibrillation) (HCC)- Primary Atrial fibrillation [facility] PAF (paroxysmal atrial fibrillation) (HCC)- Primary Atrial fibrillation 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 SSS (sick sinus syndrome) ([facility]) Sinoatrial node dysfunction Hypertension, unspecified type Heart failure with preserved ejection fraction, unspecified HF chronicity ([facility]) [facility] Diagnosis Primary open-angle glaucoma, bilateral, indeterminate stage- Primary [facility] PAF (paroxysmal atrial fibrillation) (HCC)- Primary Atrial fibrillation 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 [facility] Diagnosis PAF (paroxysmal atrial fibrillation) (HCC)- Primary Atrial fibrillation [facility] Diagnosis Persistent atrial fibrillation (HCC)- Primary Atrial fibrillation PAF (paroxysmal atrial fibrillation) (HCC) Atrial fibrillation SSS (sick sinus syndrome) ([facility]) Sinoatrial node dysfunction 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 Pericardial effusion Unspecified disease of pericardium Pleural effusion Unspecified pleural effusion documented in this encounter [facility] Summary Purpose Family History No Family History Records FoundNo Family History Records FoundNo Family History Records FoundNo Family History Records FoundNo Family History Records FoundNo Family History Records FoundNo Family History Records FoundNo Family History Records Found Advance Directives No Advanced Directives Records FoundDocuments on File Type Date Recorded Patient Temporary Help Agency Referral Clerk Expl anation Advance Directives and Livin g Will 06/28/2023 12:40 PM Documents on File Type Date Recorded Patient Temporary Help Agency Referral Clerk Expl anation Advance Directives and Livin g Will 06/28/2023 12:40 PM Reason for Referral Specialty Diagnoses / Procedures Referred By Contac t Referred To Contact Cardiology Diagnoses PAF (paroxysmal atrial fibrillation) (HCC) Procedures ECG 12 lead Jay Munoz MD [address] [place] [address] Referral ID Status Reason Start Date Expiration Date V isits Requested Visits Authorized [id number] Authorized 06/23/2023 06/22/2024 1 1 Specialty Diagnoses / Procedures Referred By Contac t Referred To Contact Cardiology Diagnoses PAF (paroxysmal atrial fibrillation) (HCC) Presence of cardiac pacemaker Procedures ECG 12 lead Jay Munoz MD [address] [facility] [address] [place] [address] Referral ID Status Reason Start Date Expiration Date V isits Requested Visits Authorized [id number] Authorized 02/02/2024 02/01/2025 4 4 Specialty Diagnoses / Procedures Referred By Contac t Referred To Contact Cardiology Diagnoses PAF (paroxysmal atrial fibrillation) (HCC) Procedures ECG 12 lead Kiko Barba CNP [address] [place] [address] Referral ID Status Reason Start Date Expiration Date V isits Requested Visits Authorized [id number] Authorized 03/27/2024 03/27/2025 1 1 Additional Source Comments INFORMATION SOURCE (unrecogn ized section and content) DATE CREATED AUTHOR 02/18/2021 Deo Gil [facility] DATE CREATED AUTHOR AUTHOR'S ORGANIZ ATION 12/28/2022 [facility] DATE CREATED AUTHOR AUTHOR'S ORGANIZ ATION 03/10/2023 [facility] DATE CREATED AUTHOR AUTHOR'S ORGANIZ ATION 12/02/[address] [facility] DATE CREATED AUTHOR AUTHOR'S ORGANIZ ATION 12/10/2023 [facility] DATE CREATED AUTHOR AUTHOR'S ORGANIZ ATION 01/04/2024 [facility] EPIC DATE CREATED AUTHOR AUTHOR'S ORGANIZ ATION 04/02/2024 [facility] DATE CREATED AUTHOR AUTHOR'S ORGANIZ ATION 04/05/2024 [facility] Reason for Visit (unrecogniz ed section and content) Reason Comments New Patient Glaucoma Reason Comments Follow-up Reason Comments Follow-up Hosp. F/u Care Teams (unrecognized sec tion and content) Financial Services Sales Representative Relationship Specialty Start Date End Date Vincenzo Patel MD [address] [place] [phone] PCP - General Family Medicine 05/31/23 Sean Redman DO [address] [place] [address] [place] [id number] Ophthalmology 05/31/23 Financial Services Sales Representative Relationship Specialty Start Date End Date Vincenzo Patel MD [address] [place] [address] PCP - General Family Medicine 06/15/23 Financial Services Sales Representative Relationship Specialty Start Date End Date Vincenzo Patel MD [address] [place] [address] PCP - General Family Medicine 06/15/23 Jay Munoz MD [address] [facility] [address] [place] [address] Cardiac Electrophysiology 06/28/23 Financial Services Sales Representative Relationship Specialty Start Date End Date Vincenzo Patel MD [address] [place] [address] PCP - General Family Medicine 06/15/23 Jay Munoz MD [address] [address] Cardiac Electrophysiology 06/28/23 Financial Services Sales Representative Relationship Specialty Start Date End Date Vincenzo Patel MD [address] [place] [address] PCP - General Family Medicine 06/15/23 Jay Munoz MD [address] [address] Cardiac Electrophysiology 06/28/23 Financial Services Sales Representative Relationship Specialty Start Date End Date Vincenzo Patel MD [address] [place] [address] PCP - General Family Medicine 06/15/23 Jay Munoz MD [address] [address] Cardiac Electrophysiology 06/28/23 FOR RECORDS PERTAINING TO [...] BE BASED ON THE PRIMARY CLINICAL RECORDS. [facility]. provides no warranty or guarantee of the accuracy or completeness of information in this document.
[2024-04-06 13:52] LABS: Internal Control Within Normal Limits; Occult Blood Positive
== END 2024-04-06 11:06 | disposition home or self-care (01) ==
LOC: LAB 11:05
PROVIDERS: PCP Family Medicine; Visit Provider Family Medicine
DX: Z12.11 Encounter for screening for malignant neoplasm of colon (principal)
CPT/HCPCS: G0328

== ENCOUNTER 2024-04-10 10:06 | Outpatient (OUT) | payer MEDICARE, OTHER, SELFPAY ==
--- OUTSIDE RECORDS SUMMARY | 2024-04-10 10:22 | XMS_ITS | CCD ---
Author Organization [facility]iniSytx Care Team Providers Care Hop Farmer Name Role Phone MELONYY ., DR LOYA [...] Unavailable HOY ., DR LOYA Consulting Unavailable VANCOUVER, DR JAY Santillan Consulting Unavailable LORI, CHILANGO [...] NORMAN ., DR LOYA Primary Care Unavailable NORMAN, VINCENZO M Primary Care Unavailable ZHAO PEDERSEN Referring Unavailable Vincenzo Patel MD Primary Care Provider Feroz Sean SIMS Unavailable Vincenzo Patel MD Primary Care Provider Jay Munoz MD Unavailable ABIMBOLA CHACON Attending Unavailable SELF, SELF [...] JAMI Referring Unavailable SU, JAMI Referring Unavailable STEFANO COBOS Attending Unavailable HORALBINA KRYTSIN Admitting Unavailable UNKNOWN, UNKNOWN Referring Unavailable KOFI HEARD Attending Unavailable CHILANGO SANDOVAL Attending Unavailable JJ AYERS Referring Unavailable Allergies Allergy Classification Reported Allergen(s) Allergy Type Date of Onset Reaction(s) Facility (1 source) Enalapril Drug Allergy 5 [facility] Repository (4 sources) Isosorbide; Translations: [ISOSORBIDE] Drug Allergy 0 [facility] Repository (1 source) NIFEdipine Drug Allergy 5 [facility] Repository (2 sources) Calcium Channel Blockers Propensity to adverse reactions to drug 3 [facility] (2 sources) Enalapril Drug Allergy 3 [facility] (7 sources) Enalapril; Translations: [ENALAPRIL MALEATE] Drug Allergy 3 Unknown [facility] (4 sources) Isosorbide Drug Allergy 0 Other (See Comments) [facility] (7 sources) Lisinopril; Translations: [LISINOPRIL] Drug Allergy 2 Other (See Comments) [facility] (7 sources) Morphine; Translations: [MORPHINE] Drug Allergy 2 Other (See Comments) [facility] (7 sources) NIFEdipine; Translations: [NIFEDIPINE] Drug Allergy 5 Unknown [facility] (6 sources) Sulfonamides (Antibiotic); Translations: [SULFA (SULFONAMIDE ANTIBIOTICS)] Propensity to adverse reactions to drug 3 Unknown [facility] (6 sources) Calcium Channel Blocking Agents-Dihydropy ridines; Translations: [CALCIUM CHANNEL BLOCKING AGENTS-DIHYDROPY RIDINES] Propensity to adverse reactions to drug 3 Unknown [facility] (1 source) dapagliflozin; Translations: [DAPAGLIFLOZIN] Drug Allergy 4 [facility] Repository Medications Current Medications Medication Drug [...] night at bedtime . 05/16/2023 Active Start: 10-02-2023 Latanoprost 0. 005 % Solution ophthalmic solution [...] Translations: [SHORTNESS OF BREATH] Onset: 11-04-2022 Episodic Other lower respiratory disease (2 sources) Other forms of dyspnea; Translations: [Other forms of dyspnea] Onset: 04-06-2024 Episodic Renata-; endo-; and myocarditis; cardiomyopathy (except that caused by tuberculosis or sexually transmitted disease) (1 source) Pericardial effusion; Translations: [Pericardial effusion] 03-29-2024 Episodic Pleurisy; pneumothorax; pulmonary collapse (5 sources) Pleural effusion; Translations: [Pleural effusion, not [...] 09-06-2022 Episodic Other aftercare (1 source) 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; Translations: [OTH 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 DRIVER CURRENT DRUG THERAPY] Onset: 05-25-2022 Episodic Other [...] Name Value Interpretation Reference Range Facility Follow-Upon 04-06-2024 Follow-Up Normal [facility] Follow-Upon 03-28-2024 Follow-Up Normal [facility] Documentationon 03-20-2024 Documentation Normal [facility] 30on 03-15-2024 30 Normal [facility] CBC WITH AUTO DIFFERENTIALon 03-15-2024 Erythrocyte distribution width (RBC) [Ratio] 19.3 % High 11.5-15.0 [facility] Comment on above: Performed By: #### L [id number] ####[facility] (BEAKER)[address] [place] [address] ERYTHROCYTE MEAN CORPUSCULAR HEMOGLOBIN CONCENTRATION (G/DL) BY AUTOMATED 28.8 g/dL Low 32.0-35.0 [facility] Comment on above: Performed By: #### L [id number] ####[facility] (BEAKER)[address] [facility] [place] [address] Hematocrit (Bld) [Volume fraction] 28.5 % Low 36.0-48.0 [facility] Comment on above: Performed By: #### L [id number] ####[facility] (BEAKER)[address] [place] [address] Hemoglobin (Bld) [Mass/Vol] 8.2 g/dL Low 12.0-15.0 [facility] Comment on above: Performed By: #### L [id number] ####[facility] ([facility])[address] [place] [address] MCH (RBC) [Entitic mass] 22.2 pg Low 27.0-33.0 [facility] Comment on above: Performed By: #### L [id number] ####[facility] ([facility])[address] [place] [address] MCV (RBC) [Entitic vol] 77.2 fL Low 82.0-98.0 [facility] Comment on above: Performed By: #### L [id number] ####[facility] ([facility])[address] [place] [address] NRBC (PER 100 WBCS) BY AUTOMATED COUNT 0.2 % High 0 [facility] Comment on above: Performed By: #### L [id number] ####[facility] ([facility])[address] [place] [address] PLATELETS (10*3/UL) IN BLOOD AUTOMATED COUNT 287 10*3/uL Normal 150-400 [facility] Comment on above: Performed By: #### L [id number] ####[facility] ([facility])[address] [place] [address] RBC (Bld) [#/Vol] 3.69 10*6/uL Low 3.80-5.00 [place] Comment on above: Performed By: #### L [id number] ####[facility] ([facility])[address] [place] [address] WBC (Bld) [#/Vol] 9.45 10*3/uL Normal 4.00-10.60 [place] Comment on above: Performed By: #### L [id number] ####[facility] ([facility])[address] [place] [address] COMPREHENSIVE METABOLIC PANE Robbie 03-15-2024 Albumin [Mass/Vol] 2.8 g/dL Low 3.5-5.7 [facility] Comment on above: Performed By: #### L [id number] ####[facility] (BEAKER)[address] [place] [address] ALP [Catalytic activity/Vol] 56 U/L Normal 34-104 [facility] Comment on above: Performed By: #### L [id number] ####[facility] (BEAKER)[address] [place] [address] ALT [Catalytic activity/Vol] 44 U/L Normal 7-52 [facility] Comment on above: Performed By: #### L [id number] ####[facility] (BEAKER)[address] [place] [address] Anion gap [Moles/Vol] 11 mmol/L Normal 7-20 [facility] Comment on above: Performed By: #### L [id number] ####[facility] (BEAKER)[address] [place] [address] AST [Catalytic activity/Vol] 14 U/L Normal 13-39 [facility] Comment on above: Performed By: #### L [id number] ####[facility] (BEAKER)[address] [place] [address] Bilirubin [Mass/Vol] 0.3 mg/dL Normal 0.3-1.0 [facility] Comment on above: Performed By: #### L [id number] ####[facility] (BEAKER)[address] [place] [address] Calcium [Mass/Vol] 8.1 mg/dL Low 8.6-10.3 [facility] Comment on above: Performed By: #### L [id number] ####[facility] (BEAKER)[address] [place] [address] Chloride [Moles/Vol] 100 mmol/L Normal 98-107 [facility] Comment on above: Performed By: #### L [id number] ####[facility] (BEAKER)[address] [place] [address] CO2 [Moles/Vol] 29 mmol/L Normal 21-31 [facility] Comment on above: Performed By: #### L [id number] ####[facility] ([facility])[address] [place] [address] Creatinine [Mass/Vol] 0.67 mg/dL Normal 0.60-1.20 [facility] Comment on above: Performed By: #### L [id number] ####[facility] ([facility])[address] [place] [address] GLOMERULAR FILTRATION RATE ML/MIN/1.73 SQ M.PREDICTED 85.1 mL/min/1.73m*2 Normal >60.0 [facility] Comment on above: Result Comment: The [facility]???s estimated glomerular filtration rate (eGFR) will [...] of individuals. Performed By: #### L [id number] ####[facility] ([facility])[address] [place] [address] Glucose [Mass/Vol] 92 mg/dL Normal 70-100 [facility] Comment on above: Performed By: #### L [id number] ####[facility] ([facility])[address] [place] [address] Potassium [Moles/Vol] 3.4 mmol/L Low 3.5-5.1 [facility] Comment on above: Performed By: #### L [id number] ####[facility] ([facility])[address] [place] [address] Protein [Mass/Vol] 5.7 g/dL Low 6.0-8.3 [facility] Comment on above: Performed By: #### L [id number] ####[facility] ([facility])[address] [place] [address] Sodium [Moles/Vol] 137 mmol/L Normal 136-145 [facility] Comment on above: Performed By: #### L [id number] ####[facility] ([facility])[address] [place] [address] Urea nitrogen [Mass/Vol] 12 mg/dL Normal 7-25 [facility] Comment on above: Performed By: #### L [id number] ####[facility] ([facility])[address] [place] [address] UREA NITROGEN/CREATININ E (MASS RATIO) IN SER/PLAS 17.9 Normal [facility] Comment on above: Performed By: #### L [id number] ####[facility] ([facility])[address] [place] [address] DSon 03-15-2024 DS Normal [facility] MANUAL DIFFERENTIALon 2023 ANISOCYTOSIS PRESENCE IN BLOOD BY LIGHT MICROSCOPY Moderate Normal [facility] Comment on above: Performed By: #### L [id number] ####[facility] ([facility])[address] [place] [address] BASOPHILS (10*3/UL) IN BLOOD BY CALCULATION 0.06 10*3/uL Normal 0.00-0.20 [facility] Comment on above: Performed By: #### L [id number] ####[facility] ([facility])[address] [place] [address] BASOPHILS/100 LEUKOCYTES IN BLOOD BY AUTOMATED COUNT 0.6 % Normal 0.0-1.0 [facility] Comment on above: Performed By: #### L [id number] ####[facility] ([facility])[address] [place] [address] EOSINOPHILS (10*3/UL) IN BLOOD BY CALCULATION 0.43 10*3/uL Normal 0.00-0.50 [facility] Comment on above: Performed By: #### L [id number] ####[facility] [place] [address] EOSINOPHILS/100 LEUKOCYTES IN BLOOD BY AUTOMATED COUNT 4.6 % Normal 0.0-6.0 [facility] Comment on above: Performed By: #### L [id number] ####[facility] ([facility])[address] [place] [address] HYPOCHROMIA (PRESENCE) IN BLOOD BY LIGHT MICROSCOPY Slight Normal [facility] Comment on above: Performed By: #### L [id number] ####[facility] ([facility])[address] [place] [address] IMMATURE GRANULOCYTES (10*3/UL) IN BLOOD BY CALCULATION 0.13 10*3/uL Normal 0.00-0.20 [facility] Comment on above: Performed By: #### L [id number] ####[facility] ([facility])[address] [place] [address] IMMATURE GRANULOCYTES/100 LEUKOCYTES IN BLOOD BY AUTOMATED COUNT 1.4 % High 0.0-1.0 [facility] Comment on above: Performed By: #### L [id number] ####[facility] ([facility])[address] [place] [address] LYMPHOCYTES (10*3/UL) IN BLOOD BY CALCULATION 2.25 10*3/uL Normal 1.20-4.00 [facility] Comment on above: Performed By: #### L [id number] ####[facility] ([facility])[address] [place] [address] LYMPHOCYTES/100 LEUKOCYTES IN BLOOD BY AUTOMATED COUNT 23.8 % Normal 20.0-45.0 [facility] Comment on above: Performed By: #### L [id number] ####[facility] ([facility])[address] [place] [address] MONOCYTES (10*3/UL) IN BLOOD BY CALCUATION 0.95 10*3/uL Normal 0.10-1.00 [facility] Comment on above: Performed By: #### L [id number] ####[facility] ([facility])[address] [place] [address] MONOCYTES/100 LEUKOCYTES IN BLOOD BY AUTOMATED COUNT 10.1 % Normal 5.0-12.0 [facility] Comment on above: Performed By: #### L [id number] ####[facility] ([facility] [place] [address] NEUTROPHILS (10*3/UL) IN BLOOD BY CALCULATION 5.6 10*3/uL Normal 1.6-7.6 [facility] Comment on above: Performed By: #### L [id number] ####[facility] ([facility] [place] [address] NEUTROPHILS/100 LEUKOCYTES IN BLOOD BY AUTOMATED COUNT 59.5 % Normal 40.0-72.0 [facility] Comment on above: Performed By: #### L [id number] ####[facility] ([facility])[address] [place] [address] POIKILOCYTOSIS (PRESENCE) IN BLOOD BY LIGHT MICROSCOPY Slight Normal [facility] Comment on above: Performed By: #### L [id number] ####[facility] ([facility] [place] [address] POLYCHROMASIA IN BLOOD BY LIGHT MICROSCOPY Slight Normal [facility] Comment on above: Performed By: #### L [id number] ####[facility] ([facility])[address] [place] [address] Orders Onlyon 03-15-2024 Orders Only [id number] Yolette Gifford nne F 1935 F Date Provider Department Center 03/15/202495196-[facility] history on file Normal [facility] POCT GLUCOSE METER UNSOLICIT ED RESULTSon 03-15-2024 Glucose [Mass/Vol] 99 mg/dL Normal 70-105 [facility] Comment on above: Order Comment: Waive d Testing in the ED is performed under the ED CLIA certificate #[id number]. Result Comment: [email or web address] Performed By: #### L [id number] ####[facility] ([facility] [place] [address] Glucose [Mass/Vol] 104 mg/dL Normal 70-105 [facility] Comment on above: Order Comment: Waive d Testing in the ED is performed under the ED CLIA certificate #[id number]. Result Comment: [email or web address] Performed By: #### L [id number] ####[facility] (BEAKER)[address] [facility] [address] 30on 03-14-2024 30 Normal [facility] 30 Normal [facility] 30 Normal [facility] AFB CULTUREon 03-14-2024 AFB CULTURE No growth at 24 days Normal [facility] Comment on above: Performed By: #### L [id number] ####[facility] ([facility] [place] [address] AFB STAIN No acid fast bacilli seen [facility] Comment on above: Performed By: #### L [id number] ####[facility] (BEAKER)[address] [place] [address] AMYLASE, BODY FLUIDon 2023 AMYLASE (U/L) IN BODY FLUID 31 U/L [facility] Comment on above: Result Comment: The reference range and other method performance specifications have not been established for this test in fluids. the test result should be integrated into the clinical context for interpretation. Performed By: #### L [id number] ####[facility] (BEAKER)[address] [place] [address] BODY FLUID CELL DIFFERENTIAL on 03-14-2024 BASOPHILS TOTAL PER COUNTED LEUKOCYTES IN BODY FLUID BY MANUAL COUNT [facility] Comment on above: Order Comment: Diffe rential performed on cytospin Performed By: #### L [id number] ####[facility] (BEAKER)[address] [facility] [address] CELLS COUNTED TOTAL (#) IN BODY FLUID 100 Normal [facility] Comment on above: Order Comment: Diffe rential performed on cytospin Performed By: #### L [id number] ####[facility] (BEAKER)[address] [place] [address] EOSINOPHILS TOTAL PER COUNTED LEUKOCYTES IN BODY FLUID BY MANUAL COUNT 4 Normal [facility] Comment on above: Order Comment: Diffe rential performed on cytospin Performed By: #### L [id number] ####[facility] (BEAKER)[address] [place] [address] LYMPHOCYTES TOTAL PER COUNTED LEUKOCYTES IN BODY FLUID BY MANUAL COUNT 60 [facility] Comment on above: Order Comment: Diffe rential performed on cytospin Performed By: #### L [id number] ####[facility] (BEAKER)[address] [place] [address] MESOTHELIAL CELLS TOTAL PER COUNTED LEUKOCYTES IN BODY FLUID BY MANUAL COUN 19 [facility] Comment on above: Order Comment: Diffe rential performed on cytospin Performed By: #### L [id number] ####[facility] (BEAKER)[address] [place] [address] MONOCYTES+MACROPHA GES TOTAL PER COUNTED LEUKOCYTES IN BODY FLUID BY MANUAL [facility] Comment on above: Order Comment: Diffe rential performed on cytospin Result Comment: Juan Carlos ected result: Previously reported as 19 (reference range: ) on 03/14/2024 at 1324 EDT. Performed By: #### L [id number] ####[facility] (BEAKER)[address] [place] [address] NEUTROPHILS TOTAL PER COUNTED LEUKOCYTES IN BODY FLUID BY MANUAL COUNT 17 [facility] Comment on above: Order Comment: Diffe rential performed on cytospin Performed By: #### L [id number] ####[facility] (BEAKER)[address] [facility] [place] [address] OTHER CELLS BODY FLUID (MANUAL) [facility] Comment on above: Order Comment: Diffe rential performed on cytospin Performed By: #### L [id number] ####[facility] (BEAKER)[address] [place] [address] BODY FLUID CULTUREon 024 Bacteria identified Cx Nom (Unsp spec) No growth at 5 days [facility] Comment on above: Performed By: #### L [id number] ####[facility] (BEAKER)[address] [place] [address] GRAM STAIN RESULT Normal [facility] Comment on above: Result Comment: Cyto centrifuge samplePolymorphonuclear leukocytesNo organisms seen Performed By: #### L [id number] ####[facility] ([facility] [place] [address] CBC WITH AUTO DIFFERENTIALon 03-14-2024 Erythrocyte distribution width (RBC) [Ratio] 18.5 % High 11.5-15.0 [facility] Comment on above: Performed By: #### L [id number] ####[facility] ([facility])[address] [place] [address] ERYTHROCYTE MEAN CORPUSCULAR HEMOGLOBIN CONCENTRATION (G/DL) BY AUTOMATED 28.9 g/dL Low 32.0-35.0 [facility] Comment on above: Performed By: #### L [id number] ####[facility] ([facility])[address] [place] [address] Hematocrit (Bld) [Volume fraction] 28.4 % Low 36.0-48.0 [facility] Comment on above: Performed By: #### L [id number] ####[facility] ([facility])[address] [place] [address] Hemoglobin (Bld) [Mass/Vol] 8.2 g/dL Low 12.0-15.0 [facility] Comment on above: Performed By: #### L [id number] ####[facility] ([facility] [place] [address] MCH (RBC) [Entitic mass] 22.0 pg Low 27.0-33.0 [facility] Comment on above: Performed By: #### L [id number] ####[facility] (BEAKER)[address] [place] [address] MCV (RBC) [Entitic vol] 76.1 fL Low 82.0-98.0 [facility] Comment on above: Performed By: #### L [id number] ####[facility] (BEAKER)[address] [place] [address] NRBC (PER 100 WBCS) BY AUTOMATED COUNT 0.0 % Normal 0 [facility] Comment on above: Performed By: #### L [id number] ####[facility] ([facility])[address] [place] [address] PLATELETS (10*3/UL) IN BLOOD AUTOMATED COUNT 323 10*3/uL Normal 150-400 [facility] Comment on above: Performed By: #### L [id number] ####[facility] ([facility])[address] [place] [address] RBC (Bld) [#/Vol] 3.73 10*6/uL Low 3.80-5.00 [place] Comment on above: Performed By: #### L [id number] ####[facility] ([facility])[address] [place] [address] WBC (Bld) [#/Vol] 9.81 10*3/uL Normal 4.00-10.60 [place] Comment on above: Performed By: #### L [id number] ####[facility] ([facility])[address] [place] [address] COMPREHENSIVE METABOLIC PANE Robbie 03-14-2024 Albumin [Mass/Vol] 2.9 g/dL Low 3.5-5.7 [facility] Comment on above: Performed By: #### L [id number] ####[facility] ([facility])[address] [place] [address] ALP [Catalytic activity/Vol] 63 U/L Normal 34-104 [facility] Comment on above: Performed By: #### L [id number] ####[facility] ([facility])[address] [place] [address] ALT [Catalytic activity/Vol] 61 U/L High 7-52 [facility] Comment on above: Performed By: #### L [id number] ####[facility] [place] [address] Anion gap [Moles/Vol] 11 mmol/L Normal 7-20 [facility] Comment on above: Performed By: #### L [id number] ####[facility] (BEAKER)[address] [place] [address] AST [Catalytic activity/Vol] 19 U/L Normal 13-39 [facility] Comment on above: Performed By: #### L [id number] ####[facility] (BEAKER)[address] [place] [address] Bilirubin [Mass/Vol] 0.3 mg/dL Normal 0.3-1.0 [facility] Comment on above: Performed By: #### L [id number] ####[facility] (BEAKER)[address] [place] [address] Calcium [Mass/Vol] 8.1 mg/dL Low 8.6-10.3 [facility] Comment on above: Performed By: #### L [id number] ####[facility] (BEAKER)[address] [place] [address] Chloride [Moles/Vol] 96 mmol/L Low 98-107 [facility] Comment on above: Performed By: #### L [id number] ####[facility] (BEAKER)[address] [place] [address] CO2 [Moles/Vol] 29 mmol/L Normal 21-31 [facility] Comment on above: Performed By: #### L [id number] ####[facility] (BEAKER)[address] [place] [address] Creatinine [Mass/Vol] 0.67 mg/dL Normal 0.60-1.20 [facility] Comment on above: Performed By: #### L [id number] ####[facility] (BEAKER)[address] [place] [address] GLOMERULAR FILTRATION RATE ML/MIN/1.73 SQ M.PREDICTED 85.1 mL/min/1.73m*2 Normal >60.0 [facility] Comment on above: Result Comment: The [facility]???s estimated glomerular filtration rate (eGFR) will [...] of individuals. Performed By: #### L [id number] ####[facility] ([facility])[address] [place] [address] Glucose [Mass/Vol] 108 mg/dL High 70-100 [facility] Comment on above: Performed By: #### L [id number] ####[facility] ([facility])[address] [place] [address] Potassium [Moles/Vol] 3.3 mmol/L Low 3.5-5.1 [facility] Comment on above: Performed By: #### L [id number] ####[facility] ([facility])[address] [place] [address] Protein [Mass/Vol] 5.8 g/dL Low 6.0-8.3 [facility] Comment on above: Performed By: #### L [id number] ####[facility] [place] [address] Sodium [Moles/Vol] 133 mmol/L Low 136-145 [facility] Comment on above: Performed By: #### L [id number] ####[facility] ([facility] [place] [address] Urea nitrogen [Mass/Vol] 16 mg/dL Normal 7-25 [facility] Comment on above: Performed By: #### L [id number] ####[facility] ([facility] [place] [address] UREA NITROGEN/CREATININ E (MASS RATIO) IN SER/PLAS 23.9 Normal [facility] Comment on above: Performed By: #### L [id number] ####[facility] ([facility] [place] [address] GLUCOSE, BODY FLUIDon 2023 GLUCOSE (MG/DL) IN BODY FLUID 115 mg/dL Normal [facility] Comment on above: Result Comment: The reference range and other method performance specifications have not been established for this test in fluids. the test result should be integrated into the clinical context for interpretation. Performed By: #### L [id number] ####[facility] ([facility])[address] [facility] [place] [address] LACTATE DEHYDROGENASEon 02-14 LACTATE DEHYDROGENASE (U/L) IN SER/PLAS BY LAC->PYR RXN 198 U/L Normal 140-271 [facility] Comment on above: Performed By: #### L [id number] ####[facility] ([facility])[address] [facility] [place] [address] LACTATE DEHYDROGENASE, BODY FLUIDon 03-14-2024 LACTATE DEHYDROGENASE (U/L) IN BODY FLUID BY LAC->PYR 184 U/L Normal [facility] Comment on above: Result Comment: The reference range and other method performance specifications have not been established for this test in fluids. the test result should be integrated into the clinical context for interpretation. Performed By: #### L [id number] ####[facility] ([facility])[address] [facility] [place] [address] MANUAL DIFFERENTIALon 2023 ANISOCYTOSIS PRESENCE IN BLOOD BY LIGHT MICROSCOPY Moderate Normal [facility] Comment on above: Performed By: #### L [id number] ####[facility] ([facility])[address] [employer] HoldingsJASMINAPREMI[facility] [place] [address] BASOPHILS (10*3/UL) IN BLOOD BY CALCULATION 0.05 10*3/uL Normal 0.00-0.20 [facility] Comment on above: Performed By: #### L [id number] ####[facility] ([facility])[address] [employer] [facility] [address] BASOPHILS/100 LEUKOCYTES IN BLOOD BY AUTOMATED COUNT 0.5 % Normal 0.0-1.0 [facility] Comment on above: Performed By: #### L [id number] ####[facility] ([facility])[address] [facility] [address] EOSINOPHILS (10*3/UL) IN BLOOD BY CALCULATION 0.32 10*3/uL Normal 0.00-0.50 [facility] Comment on above: Performed By: #### L [id number] ####[facility] ([facility])[address] [place] [address] EOSINOPHILS/100 LEUKOCYTES IN BLOOD BY AUTOMATED COUNT 3.3 % Normal 0.0-6.0 [facility] Comment on above: Performed By: #### L [id number] ####[facility] ([facility])[address] [place] [address] IMMATURE GRANULOCYTES (10*3/UL) IN BLOOD BY CALCULATION 0.15 10*3/uL Normal 0.00-0.20 [facility] Comment on above: Performed By: #### L [id number] ####[facility] ([facility])[address] [place] [address] IMMATURE GRANULOCYTES/100 LEUKOCYTES IN BLOOD BY AUTOMATED COUNT 1.5 % High 0.0-1.0 [facility] Comment on above: Performed By: #### L [id number] ####[facility] ([facility])[address] [place] [address] LYMPHOCYTES (10*3/UL) IN BLOOD BY CALCULATION 1.75 10*3/uL Normal 1.20-4.00 [facility] Comment on above: Performed By: #### L [id number] ####[facility] ([facility])[address] [place] [address] LYMPHOCYTES/100 LEUKOCYTES IN BLOOD BY AUTOMATED COUNT 17.8 % Low 20.0-45.0 [facility] Comment on above: Performed By: #### L [id number] ####[facility] ([facility])[address] [place] [address] MONOCYTES (10*3/UL) IN BLOOD BY CALCUATION 1.11 10*3/uL High 0.10-1.00 [facility] Comment on above: Performed By: #### L [id number] ####[facility] ([facility] [place] [address] MONOCYTES/100 LEUKOCYTES IN BLOOD BY AUTOMATED COUNT 11.3 % Normal 5.0-12.0 [facility] Comment on above: Performed By: #### L [id number] ####[facility] ([facility] [place] [address] NEUTROPHILS (10*3/UL) IN BLOOD BY CALCULATION 6.4 10*3/uL Normal 1.6-7.6 [facility] Comment on above: Performed By: #### L [id number] ####[facility] ([facility])[address] [place] [address] NEUTROPHILS/100 LEUKOCYTES IN BLOOD BY AUTOMATED COUNT 65.6 % Normal 40.0-72.0 [facility] Comment on above: Performed By: #### L [id number] ####[facility] ([facility] [place] [address] POIKILOCYTOSIS (PRESENCE) IN BLOOD BY LIGHT MICROSCOPY Slight Normal [facility] Comment on above: Performed By: #### L [id number] ####[facility] ([facility])[address] [place] [address] POLYCHROMASIA IN BLOOD BY LIGHT MICROSCOPY Slight Normal [facility] Comment on above: Performed By: #### L [id number] ####[facility] ([facility])[address] [place] [address] NON-COLLEGE INSTRUCTOR CYTOLOGY - CELLULAR EXAMon 03-14-2024 LAB AP CASE REPORT Normal [facility] Comment on above: Result Comment: Non- gynecologic Cytology Case: [id number] Provider: Jami Su MD Collected: 03/14/2024 0930Ordering Location[facility] Received: 03/14/2024 1132Pathologist: STEVEN Umañapecimen: Pleural fluid, right Performed By: #### L [id number] ####[facility] ([facility] [place] [address] LAB AP CLINICAL INFORMATION Normal [facility] Comment on above: Result Comment: Post -Op DiagnosesNo Dx found. Performed By: #### L [id number] ####[facility] ([facility])[address] [facility] [place] [address] LAB AP GROSS DESCRIPTION Normal [facility] Comment on above: Result Comment: 45 m L cloudy, red fluid. Performed By: #### L [id number] ####[facility] ([facility])[address] [facility] [address] LAB AP REPORT FINAL DIAGNOSIS NARRATIVE Normal [facility] Comment on above: Result Comment: A. P leural fluid, right: - Negative for malignancy. - Chronic inflammation. Performed By: #### L [id number] ####[facility] ([facility])[address] [facility] [place] [address] PATHOLOGY REVIEWon PATHOLOGY REVIEW Reviewed. Normal [facility] Comment on above: Result Comment: Elec tronically signed by Harjit Castellon MD on 03/15/24 at 7:58 AM. Performed By: #### L [id number] ####[facility] ([facility])[address] [facility] [address] PH PLEURAL FLUID, RESPIRATOR Yon 03-14-2024 PH PLEURAL FLUID 7.[address] [facility] Comment on above: Order Comment: The r eference range and other method performance specifications are unavailable for this body fluid. Interpretation nust be done by physician in conjunction with the clinical situation. ???This test was developed and its performance characteristics determined by [facility]. ???It has not been cleared or approved by the FDA. ???The laboratory is regulated under CLIA as qualified to perform moderately complexity testing. ???This test is used for clinical purposes. ???It should not be regarded as investigational or for research. Performed By: #### L [id number] ####[facility] RESPIRATORY [id number] [place] [address] [place] POCT GLUCOSE METER UNSOLICIT ED RESULTSon 03-14-2024 Glucose [Mass/Vol] 108 mg/dL High 70-105 [facility] Comment on above: Order Comment: Waive d Testing in the ED is performed under the ED CLIA certificate #[id number]. Result Comment: dcun dic Performed By: #### L [id number] ####[facility] ([facility] [place] [address] Glucose [Mass/Vol] 111 mg/dL High 70-105 [facility] Comment on above: Order Comment: Waive d Testing in the ED is performed under the ED CLIA certificate #[id number]. Result Comment: dcun dic Performed By: #### L [id number] ####[facility] ([facility])[address] [place] [address] Glucose [Mass/Vol] 128 mg/dL High 70-105 [facility] Comment on above: Order Comment: Waive d Testing in the ED is performed under the ED CLIA certificate #[id number]. Result Comment: [email or web address] Performed By: #### L [id number] ####[facility] ([facility])[address] [place] [address] PROTEIN, BODY FLUIDon 2023 Protein (Body fld) [Mass/Vol] 3.8 g/dL Normal [facility] Comment on above: Result Comment: The reference range and other method performance specifications have not been established for this test in fluids. the test result should be integrated into the clinical context for interpretation. Performed By: #### L [id number] ####[facility] ([facility])[address] [place] [address] PROTEIN, TOTALon 03-14-2024 Protein [Mass/Vol] 5.7 g/dL Low 6.0-8.3 [facility] Comment on above: Performed By: #### L [id number] ####[facility] ([facility])[address] [place] [address] TRIGLYCERIDES, BODY FLUIDon 03-14-2024 TRIGLYCERIDES (MG/DL) IN BODY FLUID 30 mg/dL Normal [facility] Comment on above: Performed By: #### L [id number] ####[facility] ([facility])[address] [place] [address] 30on 03-13-2024 30 Normal [facility] 30 Normal [facility] 30 Normal [facility] 30 Normal [facility] AFB CULTUREon 03-13-2024 AFB CULTURE No growth at 24 days [facility]: Performed By: #### L [id number] ####[facility] ([facility])[address] [place] [address] AFB STAIN No acid fast bacilli seen Normal [facility] Comment on above: Performed By: #### L [id number] ####[facility] ([facility])[address] [place] [address] ANESon 03-13-2024 ANES Normal [facility] APTTon 03-13-2024 ACTIVATED PARTIAL THROMBOPLASTIN TIME IN PPP BY COAGULATION ASSAY 45.9 Seconds High 25.0-35.0 [facility] Comment on above: Result Comment: Clin ical significance of the APTT is questionable in the presence of heparin. Performed By: #### L [id number] ####[facility] ([facility])[address] [place] [address] BODY FLUID CELL DIFFERENTIAL on 03-13-2024 BASOPHILS TOTAL PER COUNTED LEUKOCYTES IN BODY FLUID BY MANUAL COUNT Normal [facility] Comment on above: Order Comment: Diffe rential performed on cytospin Performed By: #### L [id number] ####[facility] ([facility])[address] [place] [address] CELLS COUNTED TOTAL (#) IN BODY FLUID 100 Normal [facility] Comment on above: Order Comment: Diffe rential performed on cytospin Performed By: #### L [id number] ####[facility] ([facility])[address] [place] [address] EOSINOPHILS TOTAL PER COUNTED LEUKOCYTES IN BODY FLUID BY MANUAL COUNT 4 Normal [facility] Comment on above: Order Comment: Diffe rential performed on cytospin Performed By: #### L [id number] ####[facility] ([facility])[address] [place] [address] LYMPHOCYTES TOTAL PER COUNTED LEUKOCYTES IN BODY FLUID BY MANUAL COUNT 4 Normal [facility] Comment on above: Order Comment: Diffe rential performed on cytospin Performed By: #### L [id number] ####[facility] ([facility])[address] [facility] [place] [address] MESOTHELIAL CELLS TOTAL PER COUNTED LEUKOCYTES IN BODY FLUID BY MANUAL COUN [facility] Comment on above: Order Comment: Diffe rential performed on cytospin Performed By: #### L [id number] ####[facility] ([facility])[address] [facility] [place] [address] MONOCYTES+MACROPHA GES TOTAL PER COUNTED LEUKOCYTES IN BODY FLUID BY MANUAL [facility] Comment on above: Order Comment: Diffe rential performed on cytospin Performed By: #### L [id number] ####[facility] ([facility])[address] [facility] [place] [address] NEUTROPHILS TOTAL PER COUNTED LEUKOCYTES IN BODY FLUID BY MANUAL COUNT 92 [facility] Comment on above: Order Comment: Diffe rential performed on cytospin Performed By: #### L [id number] ####[facility] ([facility])[address] [facility] [place] [address] OTHER CELLS BODY FLUID (MANUAL) [facility] Comment on above: Order Comment: Diffe rential performed on cytospin Performed By: #### L [id number] ####[facility] [facility] [address] BODY FLUID CULTUREon 024 Bacteria identified Cx Nom (Unsp spec) No growth at 5 days [facility] Comment on above: Performed By: #### L [id number] ####[facility] ([facility])[address] [place] [address] GRAM STAIN RESULT Normal [facility] Comment on above: Result Comment: Poly morphonuclear leukocytesNo organisms seenCytocentrifuge sample Performed By: #### L [id number] ####[facility] ([facility])[address] [place] [address] C-REACTIVE PROTEINon 07-30-2 024 C REACTIVE PROTEIN (MG/L) IN SER/PLAS 42.9 mg/L High 0.0-7.0 [facility] Comment on above: Performed By: #### L [id number] ####[facility] ([facility] [place] [address] CBC WITH AUTO DIFFERENTIALon 03-13-2024 Basophils (Bld) [#/Vol] 0.04 10*3/uL Normal 0.00-0.20 [facility] Comment on above: Performed By: #### L [id number] ####[facility] ([facility])[address] [place] [address] Basophils/100 WBC (Bld) 0.4 % Normal 0.0-1.0 [facility] Comment on above: Performed By: #### L [id number] ####[facility] ([facility])[address] [place] [address] Eosinophils (Bld) [#/Vol] 0.22 10*3/uL Normal 0.00-0.50 [facility] Comment on above: Performed By: #### L [id number] ####[facility] ([facility] [place] [address] Eosinophils/100 WBC (Bld) 2.4 % Normal 0.0-6.0 [facility] Comment on above: Performed By: #### L [id number] ####[facility] ([facility] [place] [address] Erythrocyte distribution width (RBC) [Ratio] 18.4 % High 11.5-15.0 [facility] Comment on above: Performed By: #### L [id number] ####[facility] ([facility])[address] [place] [address] ERYTHROCYTE MEAN CORPUSCULAR HEMOGLOBIN CONCENTRATION (G/DL) BY AUTOMATED 29.2 g/dL Low 32.0-35.0 [facility] Comment on above: Performed By: #### L [id number] ####[facility] ([facility])[address] [place] [address] Hematocrit (Bld) [Volume fraction] 31.2 % Low 36.0-48.0 [facility] Comment on above: Performed By: #### L [id number] ####[facility] ([facility])[address] [place] [address] Hemoglobin (Bld) [Mass/Vol] 9.1 g/dL Low 12.0-15.0 [facility] Comment on above: Performed By: #### L [id number] ####[facility] ([facility])[address] [place] [address] Immature granulocytes (Bld) [#/Vol] 0.13 10*3/uL Normal 0.00-0.20 [facility] Comment on above: Performed By: #### L [id number] ####[facility] ([facility])[address] [place] [address] Immature granulocytes/100 WBC (Bld) 1.4 % High 0.0-1.0 [facility] Comment on above: Performed By: #### L [id number] ####[facility] ([facility])[address] [place] [address] Lymphocytes (Bld) [#/Vol] 1.35 10*3/uL Normal 1.20-4.00 [facility] Comment on above: Performed By: #### L [id number] ####[facility] ([facility])[address] [place] [address] Lymphocytes/100 WBC (Bld) 14.5 % Low 20.0-45.0 [facility] Comment on above: Performed By: #### L [id number] ####[facility] ([facility])[address] [place] [address] MCH (RBC) [Entitic mass] 22.0 pg Low 27.0-33.0 [facility] Comment on above: Performed By: #### L [id number] ####[facility] ([facility])[address] [place] [address] MCV (RBC) [Entitic vol] 75.4 fL Low 82.0-98.0 [facility] Comment on above: Performed By: #### L [id number] ####[facility] [place] [address] Monocytes (Bld) [#/Vol] 0.82 10*3/uL Normal 0.10-1.00 [facility] Comment on above: Performed By: #### L [id number] ####[facility] ([facility])[address] [place] [address] Monocytes/100 WBC (Bld) 8.8 % Normal 5.0-12.0 [facility] Comment on above: Performed By: #### L [id number] ####[facility] ([facility])[address] [place] [address] Neutrophils (Bld) [#/Vol] 6.75 10*3/uL Normal 1.60-7.60 [facility] Comment on above: Performed By: #### L [id number] ####[facility] ([facility])[address] [place] [address] Neutrophils/100 WBC (Bld) 72.5 % High 40.0-72.0 [facility] Comment on above: Performed By: #### L [id number] ####[facility] ([facility])[address] [place] [address] NRBC (PER 100 WBCS) BY AUTOMATED COUNT 0.0 % Normal 0 [facility] Comment on above: Performed By: #### L [id number] ####[facility] ([facility])[address] [place] [address] PLATELETS (10*3/UL) IN BLOOD AUTOMATED COUNT 340 10*3/uL Normal 150-400 [facility] Comment on above: Performed By: #### L [id number] ####[facility] [place] [address] RBC (Bld) [#/Vol] 4.14 10*6/uL Normal 3.80-5.00 [place] Comment on above: Performed By: #### L [id number] ####[facility] ([facility])[address] [place] [address] WBC (Bld) [#/Vol] 9.31 10*3/uL Normal 4.00-10.60 [place] Comment on above: Performed By: #### L [id number] ####[facility] ([facility])[address] [place] [address] COMPREHENSIVE METABOLIC PANE Robbie 03-13-2024 Albumin [Mass/Vol] 3.2 g/dL Low 3.5-5.7 [facility] Comment on above: Performed By: #### L [id number] ####[facility] [place] [address] ALP [Catalytic activity/Vol] 73 U/L Normal 34-104 [facility] Comment on above: Performed By: #### L [id number] ####[facility] ([facility])[address] [place] [address] ALT [Catalytic activity/Vol] 91 U/L High 7-52 [facility] Comment on above: Performed By: #### L [id number] ####[facility] ([facility])[address] [place] [address] Anion gap [Moles/Vol] 12 mmol/L Normal 7-20 [facility] Comment on above: Performed By: #### L [id number] ####[facility] ([facility])[address] [place] [address] AST [Catalytic activity/Vol] 22 U/L Normal 13-39 [facility] Comment on above: Performed By: #### L [id number] ####[facility] ([facility])[address] [place] [address] Bilirubin [Mass/Vol] 0.5 mg/dL Normal 0.3-1.0 [facility] Comment on above: Performed By: #### L [id number] ####[facility] ([facility])[address] [place] [address] Calcium [Mass/Vol] 8.3 mg/dL Low 8.6-10.3 [facility] Comment on above: Performed By: #### L [id number] ####[facility] ([facility])[address] [place] [address] Chloride [Moles/Vol] 93 mmol/L Low 98-107 [facility] Comment on above: Performed By: #### L [id number] ####[facility] ([facility])[address] [place] [address] CO2 [Moles/Vol] 31 mmol/L Normal 21-31 [facility] Comment on above: Performed By: #### L [id number] ####[facility] ([facility])[address] [facility] [place] [address] Creatinine [Mass/Vol] 0.73 mg/dL Normal 0.60-1.20 [facility] Comment on above: Performed By: #### L [id number] ####[facility] ([facility])[address] [place] [address] GLOMERULAR FILTRATION RATE ML/MIN/1.73 SQ M.PREDICTED 80.0 mL/min/1.73m*2 Normal >60.0 [facility] Comment on above: Result Comment: [facility]???s estimated glomerular filtration rate (eGFR) will [...] of individuals. Performed By: #### L [id number] ####[facility] ([facility])[address] [place] [address] Glucose [Mass/Vol] 161 mg/dL High 70-100 [facility] Comment on above: Performed By: #### L [id number] ####[facility] ([facility])[address] [place] [address] Potassium [Moles/Vol] 3.1 mmol/L Low 3.5-5.1 [facility] Comment on above: Performed By: #### L [id number] ####[facility] (BEAKER)[address] [place] [address] Protein [Mass/Vol] 6.5 g/dL Normal 6.0-8.3 [facility] Comment on above: Performed By: #### L [id number] ####[facility] (BEAKER)[address] [place] [address] Sodium [Moles/Vol] 133 mmol/L Low 136-145 [facility] Comment on above: Performed By: #### L [id number] ####[facility] (BEAKER)[address] [place] [address] Urea nitrogen [Mass/Vol] 18 mg/dL Normal 7-25 [facility] Comment on above: Performed By: #### L [id number] ####[facility] (BEAKER)[address] [place] [address] UREA NITROGEN/CREATININ E (MASS RATIO) IN SER/PLAS 24.7 Normal [facility] Comment on above: Performed By: #### L [id number] ####[facility] (BEAKER)[address] [place] [address] HPon 03-13-2024 HP Normal [facility] NON-COLLEGE INSTRUCTOR CYTOLOGY - CELLULAR EXAMon 03-13-2024 LAB AP CASE REPORT Normal [facility] Comment on above: Result Comment: Non- gynecologic Cytology Case: [id number] Provider: Jami Su MD Collected: 03/13/2024 1229Ordering Location[facility] Received: 03/14/2024 0805Pathologist: STEVEN Umañapecimen: Peritoneal fluid Performed By: #### L [id number] ####[facility] (BEAKER)[address] [place] [address] LAB AP CLINICAL INFORMATION Normal [facility] Comment on above: Result Comment: Post -Op DiagnosesNo Dx found. Performed By: #### L [id number] ####[facility] [place] [address] LAB AP GROSS DESCRIPTION [facility] Comment on above: Result Comment: 300 mL cloudy, red fluid. Performed By: #### L [id number] ####[facility] [place] [address] LAB AP REPORT FINAL DIAGNOSIS NARRATIVE [facility] Comment on above: Result Comment: A. P eritoneal fluid: - Negative for malignancy. - Marked acute inflammation. Performed By: #### L [id number] ####[facility] ([facility])[address] [place] [address] NURSNOTEon 03-13-2024 NURSNOTE [facility] PATHOLOGY REVIEWon PATHOLOGY REVIEW Reviewed. Normal [facility] Comment on above: Result Comment: Elec tronically signed by Harjit Castellon MD on 03/14/24 at 10:44 AM. Performed By: #### L [id number] ####[facility] ([facility])[address] [place] [address] POCT GLUCOSE METER UNSOLICIT ED RESULTSon 03-13-2024 Glucose [Mass/Vol] 131 mg/dL High 70-105 [facility] Comment on above: Order Comment: Waive d Testing in the ED is performed under the ED CLIA certificate #[id number]. Result Comment: [email or web address] Performed By: #### L [id number] ####[facility] ([facility] [place] [address] Glucose [Mass/Vol] 110 mg/dL High 70-105 [facility] Comment on above: Order Comment: Waive d Testing in the ED is performed under the ED CLIA certificate #[id number]. Result Comment: [email or web address] Performed By: #### L [id number] ####[facility] (BEAKER)[address] [place] [address] Glucose [Mass/Vol] 120 mg/dL High 70-105 [facility] Comment on above: Order Comment: Waive d Testing in the ED is performed under the ED CLIA certificate #[id number]. Result Comment: [email or web address] Performed By: #### L [id number] ####[facility] ([facility])[address] [place] [address] PROTIME-INRon 03-13-2024 INR IN PPP BY COAGULATION ASSAY 1.48 High 0.90-1.10 [facility] Comment on above: Result Comment: ACCC [...] CHEST 1995;[id number]. Performed By: #### L [id number] ####[facility] ([facility])[address] [place] [address] PROTHROMBIN TIME (PT) IN PPP BY COAGULATION ASSAY 17.8 Seconds High 12.3-14.8 [facility] Comment on above: Performed By: #### L [id number] ####[facility] ([facility])[address] [place] [address] 30on 03-12-2024 30 Normal [facility] 30 Normal [facility] 30 Normal [facility] CBC WITH AUTO DIFFERENTIALon 03-12-2024 Basophils (Bld) [#/Vol] 0.05 10*3/uL Normal 0.00-0.20 [facility] Comment on above: Performed By: #### L [id number] ####[facility] (BEAKER)[address] [place] [address] Basophils/100 WBC (Bld) 0.5 % Normal 0.0-1.0 [facility] Comment on above: Performed By: #### L [id number] ####[facility] (BEAKER)[address] [place] [address] Eosinophils (Bld) [#/Vol] 0.28 10*3/uL Normal 0.00-0.50 [facility] Comment on above: Performed By: #### L [id number] ####[facility] (BEAKER)[address] [place] [address] Eosinophils/100 WBC (Bld) 3.1 % Normal 0.0-6.0 [facility] Comment on above: Performed By: #### L [id number] ####[facility] (BEAKER)[address] [place] [address] Erythrocyte distribution width (RBC) [Ratio] 18.3 % High 11.5-15.0 [facility] Comment on above: Performed By: #### L [id number] ####[facility] (BEAKER)[address] [place] [address] ERYTHROCYTE MEAN CORPUSCULAR HEMOGLOBIN CONCENTRATION (G/DL) BY AUTOMATED 29.3 g/dL Low 32.0-35.0 [facility] Comment on above: Performed By: #### L [id number] ####[facility] (BEAKER)[address] [place] [address] Hematocrit (Bld) [Volume fraction] 29.4 % Low 36.0-48.0 [facility] Comment on above: Performed By: #### L [id number] ####[facility] (BEAKER)[address] [place] [address] Hemoglobin (Bld) [Mass/Vol] 8.6 g/dL Low 12.0-15.0 [facility] Comment on above: Performed By: #### L [id number] ####[facility] (BEAKER)[address] [place] [address] Immature granulocytes (Bld) [#/Vol] 0.08 10*3/uL Normal 0.00-0.20 [facility] Comment on above: Performed By: #### L [id number] ####[facility] (BEAKER)[address] [place] [address] Immature granulocytes/100 WBC (Bld) 0.9 % Normal 0.0-1.0 [facility] Comment on above: Performed By: #### L [id number] ####[facility] (BEAKER)[address] [place] [address] Lymphocytes (Bld) [#/Vol] 2.23 10*3/uL Normal 1.20-4.00 [facility] Comment on above: Performed By: #### L [id number] ####[facility] (BEAKER)[address] [place] [address] Lymphocytes/100 WBC (Bld) 24.5 % Normal 20.0-45.0 [facility] Comment on above: Performed By: #### L [id number] ####[facility] (BEAKER)[address] [place] [address] MCH (RBC) [Entitic mass] 22.3 pg Low 27.0-33.0 [facility] Comment on above: Performed By: #### L [id number] ####[facility] (BEAKER)[address] [place] [address] MCV (RBC) [Entitic vol] 76.2 fL Low 82.0-98.0 [facility] Comment on above: Performed By: #### L [id number] ####[facility] (BEAKER)[address] [place] [address] Monocytes (Bld) [#/Vol] 1.01 10*3/uL High 0.10-1.00 [facility] Comment on above: Performed By: #### L [id number] ####[facility] (BEAKER)[address] [place] [address] Monocytes/100 WBC (Bld) 11.1 % Normal 5.0-12.0 [facility] Comment on above: Performed By: #### L [id number] ####[facility] (BEAKER)[address] [place] [address] Neutrophils (Bld) [#/Vol] 5.45 10*3/uL Normal 1.60-7.60 [facility] Comment on above: Performed By: #### L [id number] ####[facility] (BEAKER)[address] [place] [address] Neutrophils/100 WBC (Bld) 59.9 % Normal 40.0-72.0 [facility] Comment on above: Performed By: #### L [id number] ####[facility] [place] [address] NRBC (PER 100 WBCS) BY AUTOMATED COUNT 0.0 % Normal 0 [facility] Comment on above: Performed By: #### L [id number] ####[facility] (BEAKER)[address] [place] [address] PLATELETS (10*3/UL) IN BLOOD AUTOMATED COUNT 363 10*3/uL Normal 150-400 [facility] Comment on above: Performed By: #### L [id number] ####[facility] (BEAKER)[address] [place] [address] RBC (Bld) [#/Vol] 3.86 10*6/uL Normal 3.80-5.00 [place] Comment on above: Performed By: #### L [id number] ####[facility] (BEAKER)[address] [place] [address] WBC (Bld) [#/Vol] 9.10 10*3/uL Normal 4.00-10.60 [place] Comment on above: Performed By: #### L [id number] ####[facility] ([facility] [place] [address] COMPREHENSIVE METABOLIC PANE Robbie 03-12-2024 Albumin [Mass/Vol] 3.0 g/dL Low 3.5-5.7 [facility] Comment on above: Performed By: #### L [id number] ####[facility] ([facility])[address] [place] [address] ALP [Catalytic activity/Vol] 67 U/L Normal 34-104 [facility] Comment on above: Performed By: #### L [id number] ####[facility] ([facility])[address] [place] [address] ALT [Catalytic activity/Vol] 138 U/L High 7-52 [facility] Comment on above: Performed By: #### L [id number] ####[facility] ([facility])[address] [place] [address] Anion gap [Moles/Vol] 10 mmol/L Normal 7-20 [facility] Comment on above: Performed By: #### L [id number] ####[facility] ([facility])[address] [place] [address] AST [Catalytic activity/Vol] 43 U/L High 13-39 [facility] Comment on above: Performed By: #### L [id number] ####[facility] ([facility])[address] [place] [address] Bilirubin [Mass/Vol] 0.5 mg/dL Normal 0.3-1.0 [facility] Comment on above: Performed By: #### L [id number] ####[facility] ([facility])[address] [place] [address] Calcium [Mass/Vol] 8.3 mg/dL Low 8.6-10.3 [facility] Comment on above: Performed By: #### L [id number] ####[facility] ([facility])[address] [place] [address] Chloride [Moles/Vol] 94 mmol/L Low 98-107 [facility] Comment on above: Performed By: #### L [id number] ####[facility] ([facility])[address] [place] [address] CO2 [Moles/Vol] 33 mmol/L High 21-31 [facility] Comment on above: Performed By: #### L [id number] ####[facility] ([facility])[address] [place] [address] Creatinine [Mass/Vol] 0.75 mg/dL Normal 0.60-1.20 [facility] Comment on above: Performed By: #### L [id number] ####[facility] ([facility])[address] [place] [address] GLOMERULAR FILTRATION RATE ML/MIN/1.73 SQ M.PREDICTED 77.5 mL/min/1.73m*2 Normal >60.0 [facility] Comment on above: Result Comment: The [facility]???s estimated glomerular filtration rate (eGFR) will [...] of individuals. Performed By: #### L [id number] ####[facility] [place] [address] Glucose [Mass/Vol] 114 mg/dL High 70-100 [facility] Comment on above: Performed By: #### L [id number] ####[facility] ([facility] [place] [address] Potassium [Moles/Vol] 3.6 mmol/L Normal 3.5-5.1 [facility] Comment on above: Performed By: #### L [id number] ####[facility] ([facility])[address] [place] [address] Protein [Mass/Vol] 6.3 g/dL Normal 6.0-8.3 [facility] Comment on above: Performed By: #### L [id number] ####[facility] ([facility])[address] [place] [address] Sodium [Moles/Vol] 133 mmol/L Low 136-145 [facility] Comment on above: Performed By: #### L [id number] ####[facility] ([facility])[address] [place] [address] Urea nitrogen [Mass/Vol] 23 mg/dL Normal 7-25 [facility] Comment on above: Performed By: #### L [id number] ####[facility] ([facility])[address] [place] [address] UREA NITROGEN/CREATININ E (MASS RATIO) IN SER/PLAS 30.7 Normal [facility] Comment on above: Performed By: #### L [id number] ####[facility] ([facility])[address] [place] [address] CONSULTon 03-12-2024 CONSULT Normal [facility] POCT GLUCOSE METER UNSOLICIT ED RESULTSon 03-12-2024 Glucose [Mass/Vol] 143 mg/dL High 70-105 [facility] Comment on above: Order Comment: Waive d Testing in the ED is performed under the ED CLIA certificate #[id number]. Result Comment: [email or web address] Performed By: #### L [id number] ####[facility] ([facility])[address] [place] [address] Glucose [Mass/Vol] 126 mg/dL High 70-105 [facility] Comment on above: Order Comment: Waive d Testing in the ED is performed under the ED CLIA certificate #[id number]. Result Comment: [email or web address] Performed By: #### L [id number] ####[facility] ([facility])[address] [place] [address] Glucose [Mass/Vol] 150 mg/dL High 70-105 [facility] Comment on above: Order Comment: Waive d Testing in the ED is performed under the ED CLIA certificate #[id number]. Result Comment: [email or web address] Performed By: #### L [id number] ####[facility] ([facility])[address] [place] [address] Glucose [Mass/Vol] 113 mg/dL High 70-105 [facility] Comment on above: Order Comment: Waive d Testing in the ED is performed under the ED CLIA certificate #[id number]. Result Comment: malathi [email or web address] Performed By: #### L [id number] ####[facility] ([facility])[address] [place] [address] Glucose [Mass/Vol] 141 mg/dL High 70-105 [facility] Comment on above: Order Comment: Waive d Testing in the ED is performed under the ED CLIA certificate #[id number]. Result Comment: [email or web address] [email or web address] Performed By: #### L [id number] ####[facility] ([facility])[address] [place] [address] SEDIMENTATION RATEon 024 SEDIMENTATION RATE, ERYTHROCYTE 60 mm/hr High <=20 [facility] Comment on above: Performed By: #### L [id number] ####[facility] ([facility])[address] [place] [address] 30on 03-11-2024 30 Normal [facility] 30 Normal [facility] CBC WITH AUTO DIFFERENTIALon 03-11-2024 Basophils (Bld) [#/Vol] 0.03 10*3/uL Normal 0.00-0.20 [facility] Comment on above: Performed By: #### L [id number] ####[facility] ([facility])[address] [place] [address] Basophils/100 WBC (Bld) 0.3 % Normal 0.0-1.0 [facility] Comment on above: Performed By: #### L [id number] ####[facility] (BEAKER)[address] [place] [address] Eosinophils (Bld) [#/Vol] 0.33 10*3/uL Normal 0.00-0.50 [facility] Comment on above: Performed By: #### L [id number] ####[facility] (BEAKER)[address] [place] [address] Eosinophils/100 WBC (Bld) 3.5 % Normal 0.0-6.0 [facility] Comment on above: Performed By: #### L [id number] ####[facility] [place] [address] Erythrocyte distribution width (RBC) [Ratio] 18.2 % High 11.5-15.0 [facility] Comment on above: Performed By: #### L [id number] ####[facility] ([facility])[address] [place] [address] ERYTHROCYTE MEAN CORPUSCULAR HEMOGLOBIN CONCENTRATION (G/DL) BY AUTOMATED 29.9 g/dL Low 32.0-35.0 [facility] Comment on above: Performed By: #### L [id number] ####[facility] ([facility])[address] [place] [address] Hematocrit (Bld) [Volume fraction] 28.4 % Low 36.0-48.0 [facility] Comment on above: Performed By: #### L [id number] ####[facility] (BEAKER)[address] [place] [address] Hemoglobin (Bld) [Mass/Vol] 8.5 g/dL Low 12.0-15.0 [facility] Comment on above: Performed By: #### L [id number] ####[facility] (BEAKER)[address] [place] [address] Immature granulocytes (Bld) [#/Vol] 0.07 10*3/uL Normal 0.00-0.20 [facility] Comment on above: Performed By: #### L [id number] ####[facility] (BEAKER)[address] [place] [address] Immature granulocytes/100 WBC (Bld) 0.7 % Normal 0.0-1.0 [facility] Comment on above: Performed By: #### L [id number] ####[facility] (BEAKER)[address] [place] [address] Lymphocytes (Bld) [#/Vol] 1.81 10*3/uL Normal 1.20-4.00 [facility] Comment on above: Performed By: #### L [id number] ####[facility] (BEAKER)[address] [place] [address] Lymphocytes/100 WBC (Bld) 19.1 % Low 20.0-45.0 [facility] Comment on above: Performed By: #### L [id number] ####[facility] (BEAKER)[address] [place] [address] MCH (RBC) [Entitic mass] 22.0 pg Low 27.0-33.0 [facility] Comment on above: Performed By: #### L [id number] ####[facility] (BEAKER)[address] [place] [address] MCV (RBC) [Entitic vol] 73.6 fL Low 82.0-98.0 [facility] Comment on above: Performed By: #### L [id number] ####[facility] (BEAKER)[address] [place] [address] Monocytes (Bld) [#/Vol] 1.25 10*3/uL High 0.10-1.00 [facility] Comment on above: Performed By: #### L [id number] ####[facility] (BEAKER)[address] [place] [address] Monocytes/100 WBC (Bld) 13.2 % High 5.0-12.0 [facility] Comment on above: Performed By: #### L [id number] ####[facility] (BEAKER)[address] [place] [address] Neutrophils (Bld) [#/Vol] 6.01 10*3/uL Normal 1.60-7.60 [facility] Comment on above: Performed By: #### L [id number] ####[facility] ([facility])[address] [address] Neutrophils/100 WBC (Bld) 63.2 % Normal 40.0-72.0 [facility] Comment on above: Performed By: #### L [id number] ####[facility] ([facility])[address] [address] NRBC (PER 100 WBCS) BY AUTOMATED COUNT 0.0 % Normal 0 [facility] Comment on above: Performed By: #### L [id number] ####[facility] ([facility])[address] [place] [address] PLATELETS (10*3/UL) IN BLOOD AUTOMATED COUNT 317 10*3/uL Normal 150-400 [facility] Comment on above: Performed By: #### L [id number] ####[facility] ([facility])[address] [place] [address] RBC (Bld) [#/Vol] 3.86 10*6/uL Normal 3.80-5.00 [place] Comment on above: Performed By: #### L [id number] ####[facility] ([facility])[address] [place] [address] WBC (Bld) [#/Vol] 9.50 10*3/uL Normal 4.00-10.60 [place] Comment on above: Performed By: #### L [id number] ####[facility] [place] [address] COMPREHENSIVE METABOLIC PANE Robbie 03-11-2024 Albumin [Mass/Vol] 3.0 g/dL Low 3.5-5.7 [facility] Comment on above: Performed By: #### L [id number] ####[facility] [place] [address] ALP [Catalytic activity/Vol] 68 U/L Normal 34-104 [facility] Comment on above: Performed By: #### L [id number] ####[facility] [place] [address] ALT [Catalytic activity/Vol] 179 U/L High 7-52 [facility] Comment on above: Performed By: #### L [id number] ####[facility] [place] [address] Anion gap [Moles/Vol] 11 mmol/L Normal 7-20 [facility] Comment on above: Performed By: #### L [id number] ####[facility] [place] [address] AST [Catalytic activity/Vol] 74 U/L High 13-39 [facility] Comment on above: Performed By: #### L [id number] ####[facility] ([facility])[address] [place] [address] Bilirubin [Mass/Vol] 0.4 mg/dL Normal 0.3-1.0 [facility] Comment on above: Performed By: #### L [id number] ####[facility] [place] [address] Calcium [Mass/Vol] 8.2 mg/dL Low 8.6-10.3 [facility] Comment on above: Performed By: #### L [id number] ####[facility] (BEAKER)[address] [place] [address] Chloride [Moles/Vol] 92 mmol/L Low 98-107 [facility] Comment on above: Performed By: #### L [id number] ####[facility] ([facility])[address] [place] [address] CO2 [Moles/Vol] 33 mmol/L High 21-31 [facility] Comment on above: Performed By: #### L [id number] ####[facility] (BE[facility]ER)[address] [place] [address] Creatinine [Mass/Vol] 0.74 mg/dL Normal 0.60-1.20 [facility] Comment on above: Performed By: #### L [id number] ####[facility] ([facility])[address] [place] [address] GLOMERULAR FILTRATION RATE ML/MIN/1.73 SQ M.PREDICTED 78.7 mL/min/1.73m*2 Normal >60.0 [facility] Comment on above: Result Comment: The [facility]???s estimated glomerular filtration rate (eGFR) will [...] of individuals. Performed By: #### L [id number] ####[facility] ([facility])[address] [place] [address] Glucose [Mass/Vol] 91 mg/dL Normal 70-100 [facility] Comment on above: Performed By: #### L [id number] ####[facility] ([facility])[address] [place] [address] Potassium [Moles/Vol] 3.0 mmol/L Low 3.5-5.1 [facility] Comment on above: Performed By: #### L [id number] ####[facility] ([facility])[address] [place] [address] Protein [Mass/Vol] 6.3 g/dL Normal 6.0-8.3 [facility] Comment on above: Performed By: #### L [id number] ####[facility] ([facility])[address] [place] [address] Sodium [Moles/Vol] 133 mmol/L Low 136-145 [facility] Comment on above: Performed By: #### L [id number] ####[facility] ([facility]ER)[address] [place] [address] Urea nitrogen [Mass/Vol] 26 mg/dL High 7-25 [facility] Comment on above: Performed By: #### L [id number] ####[facility] (BEAKER)[address] [address] UREA NITROGEN/CREATININ E (MASS RATIO) IN SER/PLAS 35.1 Normal [facility] Comment on above: Performed By: #### L [id number] ####[facility] ([facility]AKER)[address] [place] [address] HEMOGLOBIN AND HEMATOCRIT, B LOODon 03-11-2024 Hematocrit (Bld) [Volume fraction] 28.2 % Low 36.0-48.0 [facility] Comment on above: Performed By: #### L [id number] ####[facility] ([facility]AKER)[address] [place] [address] Hemoglobin (Bld) [Mass/Vol] 8.6 g/dL Low 12.0-15.0 [facility] Comment on above: Performed By: #### L [id number] ####[facility] ([facility]AKER)[address] [place] [address] Hematocrit (Bld) [Volume fraction] 29.4 % Low 36.0-48.0 [facility] Comment on above: Performed By: #### L [id number] ####[facility] (BEAKER)[address] [place] [address] Hemoglobin (Bld) [Mass/Vol] 8.6 g/dL Low 12.0-15.0 [facility] Comment on above: Performed By: #### L [id number] ####[facility] ([facility] [place] [address] POCT GLUCOSE METER UNSOLICIT ED RESULTSon 03-11-2024 Glucose [Mass/Vol] 129 mg/dL High 70-105 [facility] Comment on above: Order Comment: Waive d Testing in the ED is performed under the ED CLIA certificate #[id number]. Result Comment: [email or web address] Performed By: #### L [id number] ####[facility] ([facility] [place] [address] Glucose [Mass/Vol] 175 mg/dL High 70-105 [facility] Comment on above: Order Comment: Waive d Testing in the ED is performed under the ED CLIA certificate #[id number]. Result Comment: [email or web address] Performed By: #### L [id number] ####[facility] ([facility])[address] [place] [address] Glucose [Mass/Vol] 120 mg/dL High 70-105 [facility] Comment on above: Order Comment: Waive d Testing in the ED is performed under the ED CLIA certificate #[id number]. Result Comment: [email or web address] Performed By: #### L [id number] ####[facility] ([facility])[address] [place] [address] Glucose [Mass/Vol] 116 mg/dL High 70-105 [facility] Comment on above: Order Comment: Waive d Testing in the ED is performed under the ED CLIA certificate #[id number]. Result Comment: [email or web address] Performed By: #### L [id number] ####[facility] ([facility])[address] [place] [address] 30on 03-10-2024 30 Normal [facility] 30 Normal [facility] CBC WITH AUTO DIFFERENTIALon 03-10-2024 Basophils (Bld) [#/Vol] 0.01 10*3/uL Normal 0.00-0.20 [facility] Comment on above: Performed By: #### L [id number] ####[facility] ([facility] [place] [address] Basophils/100 WBC (Bld) 0.1 % Normal 0.0-1.0 [facility] Comment on above: Performed By: #### L [id number] ####[facility] ([facility])[address] [place] [address] Eosinophils (Bld) [#/Vol] 0.13 10*3/uL Normal 0.00-0.50 [facility] Comment on above: Performed By: #### L [id number] ####[facility] ([facility] [place] [address] Eosinophils/100 WBC (Bld) 1.2 % Normal 0.0-6.0 [facility] Comment on above: Performed By: #### L [id number] ####[facility] ([facility])[address] [place] [address] Erythrocyte distribution width (RBC) [Ratio] 18.3 % High 11.5-15.0 [facility] Comment on above: Performed By: #### L [id number] ####[facility] ([facility])[address] [place] [address] ERYTHROCYTE MEAN CORPUSCULAR HEMOGLOBIN CONCENTRATION (G/DL) BY AUTOMATED 29.6 g/dL Low 32.0-35.0 [facility] Comment on above: Performed By: #### L [id number] ####[facility] ([facility])[address] [place] [address] Hematocrit (Bld) [Volume fraction] 27.7 % Low 36.0-48.0 [facility] Comment on above: Performed By: #### L [id number] ####[facility] (BEAKER)[address] [place] [address] Hemoglobin (Bld) [Mass/Vol] 8.2 g/dL Low 12.0-15.0 [facility] Comment on above: Performed By: #### L [id number] ####[facility] (BEAKER)[address] [place] [address] Immature granulocytes (Bld) [#/Vol] 0.08 10*3/uL Normal 0.00-0.20 [facility] Comment on above: Performed By: #### L [id number] ####[facility] (BEAKER)[address] [place] [address] Immature granulocytes/100 WBC (Bld) 0.7 % Normal 0.0-1.0 [facility] Comment on above: Performed By: #### L [id number] ####[facility] ([facility])[address] [place] [address] Lymphocytes (Bld) [#/Vol] 1.57 10*3/uL Normal 1.20-4.00 [facility] Comment on above: Performed By: #### L [id number] ####[facility] ([facility])[address] [place] [address] Lymphocytes/100 WBC (Bld) 14.4 % Low 20.0-45.0 [facility] Comment on above: Performed By: #### L [id number] ####[facility] ([facility])[address] [place] [address] MCH (RBC) [Entitic mass] 22.3 pg Low 27.0-33.0 [facility] Comment on above: Performed By: #### L [id number] ####[facility] ([facility])[address] [place] [address] MCV (RBC) [Entitic vol] 75.5 fL Low 82.0-98.0 [facility] Comment on above: Performed By: #### L [id number] ####[facility] ([facility])[address] [place] [address] Monocytes (Bld) [#/Vol] 1.35 10*3/uL High 0.10-1.00 [facility] Comment on above: Performed By: #### L [id number] ####[facility] ([facility])[address] [place] [address] Monocytes/100 WBC (Bld) 12.4 % High 5.0-12.0 [facility] Comment on above: Performed By: #### L [id number] ####[facility] ([facility])[address] [place] [address] Neutrophils (Bld) [#/Vol] 7.74 10*3/uL High 1.60-7.60 [facility] Comment on above: Performed By: #### L [id number] ####[facility] ([facility] [place] [address] Neutrophils/100 WBC (Bld) 71.2 % Normal 40.0-72.0 [facility] Comment on above: Performed By: #### L [id number] ####[facility] ([facility] [place] [address] NRBC (PER 100 WBCS) BY AUTOMATED COUNT 0.0 % Normal 0 [facility] Comment on above: Performed By: #### L [id number] ####[facility] ([facility])[address] [place] [address] PLATELETS (10*3/UL) IN BLOOD AUTOMATED COUNT 356 10*3/uL Normal 150-400 [facility] Comment on above: Performed By: #### L [id number] ####[facility] ([facility])[address] [place] [address] RBC (Bld) [#/Vol] 3.67 10*6/uL Low 3.80-5.00 [place] Comment on above: Performed By: #### L [id number] ####[facility] ([facility])[address] [place] [address] WBC (Bld) [#/Vol] 10.88 10*3/uL High 4.00-10.60 [facility] Comment on above: Performed By: #### L [id number] ####[facility] ([facility] [place] [address] COMPREHENSIVE METABOLIC PANE Robbie 03-10-2024 Albumin [Mass/Vol] 3.1 g/dL Low 3.5-5.7 [facility] Comment on above: Performed By: #### L [id number] ####[facility] ([facility] [place] [address] ALP [Catalytic activity/Vol] 80 U/L Normal 34-104 [facility] Comment on above: Performed By: #### L [id number] ####[facility] ([facility] [place] [address] ALT [Catalytic activity/Vol] 208 U/L High 7-52 [facility] Comment on above: Performed By: #### L [id number] ####[facility] ([facility] [place] [address] Anion gap [Moles/Vol] 9 mmol/L Normal 7-20 [facility] Comment on above: Performed By: #### L [id number] ####[facility] ([facility])[address] [place] [address] AST [Catalytic activity/Vol] 88 U/L High 13-39 [facility] Comment on above: Performed By: #### L [id number] ####[facility] ([facility])[address] [place] [address] Bilirubin [Mass/Vol] 0.3 mg/dL Normal 0.3-1.0 [facility] Comment on above: Performed By: #### L [id number] ####[facility] ([facility])[address] [place] [address] Calcium [Mass/Vol] 8.6 mg/dL Normal 8.6-10.3 [facility] Comment on above: Performed By: #### L [id number] ####[facility] ([facility])[address] [place] [address] Chloride [Moles/Vol] 94 mmol/L Low 98-107 [facility] Comment on above: Performed By: #### L [id number] ####[facility] ([facility] [place] [address] CO2 [Moles/Vol] 35 mmol/L High 21-31 [facility] Comment on above: Performed By: #### L [id number] ####[facility] ([facility] [place] [address] Creatinine [Mass/Vol] 0.93 mg/dL Normal 0.60-1.20 [facility] Comment on above: Performed By: #### L [id number] ####[facility] ([facility] [place] [address] GLOMERULAR FILTRATION RATE ML/MIN/1.73 SQ M.PREDICTED 59.9 mL/min/1.73m*2 Low >60.0 [facility] Comment on above: Result Comment: The [facility]???s estimated glomerular filtration rate (eGFR) will [...] of individuals. Performed By: #### L [id number] ####[facility] ([facility])[address] [place] [address] Glucose [Mass/Vol] 92 mg/dL Normal 70-100 [facility] Comment on above: Performed By: #### L [id number] ####[facility] ([facility])[address] [place] [address] Potassium [Moles/Vol] 3.9 mmol/L Normal 3.5-5.1 [facility] Comment on above: Performed By: #### L [id number] ####[facility] ([facility])[address] [place] [address] Protein [Mass/Vol] 6.6 g/dL Normal 6.0-8.3 [facility] Comment on above: Performed By: #### L [id number] ####[facility] ([facility])[address] [place] [address] Sodium [Moles/Vol] 134 mmol/L Low 136-145 [facility] Comment on above: Performed By: #### L [id number] ####[facility] ([facility])[address] [place] [address] Urea nitrogen [Mass/Vol] 34 mg/dL High 7-25 [facility] Comment on above: Performed By: #### L [id number] ####[facility] ([facility])[address] [place] [address] UREA NITROGEN/CREATININ E (MASS RATIO) IN SER/PLAS 36.6 Normal [facility] Comment on above: Performed By: #### L [id number] ####[facility] ([facility])[address] [place] [address] CONSULTon 03-10-2024 CONSULT Normal [facility] CONSULT Normal [facility] CT ABDOMEN PELVIS W IV CONTR Jennifer 03-10-2024 CT ABDOMEN PELVIS W IV CONTRAST Invalid Interpretation Code [facility] HEMOGLOBIN AND HEMATOCRIT, B LOODon 03-10-2024 Hematocrit (Bld) [Volume fraction] 27.8 % Low 36.0-48.0 [facility] Comment on above: Performed By: #### L [id number] ####[facility] ([facility])[address] [place] [address] Hemoglobin (Bld) [Mass/Vol] 8.4 g/dL Low 12.0-15.0 [facility] Comment on above: Performed By: #### L [id number] ####[facility] ([facility])[address] [place] [address] POCT GLUCOSE METER UNSOLICIT ED RESULTSon 03-10-2024 Glucose [Mass/Vol] 155 mg/dL High 70-105 [facility] Comment on above: Order Comment: Waive d Testing in the ED is performed under the ED CLIA certificate #[id number]. Result Comment: [email or web address] Performed By: #### L [id number] ####[facility] ([facility])[address] [place] [address] Glucose [Mass/Vol] 114 mg/dL High 70-105 [facility] Comment on above: Order Comment: Waive d Testing in the ED is performed under the ED CLIA certificate #[id number]. Result Comment: [email or web address] Performed By: #### L [id number] ####[facility] ([facility])[address] [place] [address] Glucose [Mass/Vol] 110 mg/dL High 70-105 [facility] Comment on above: Order Comment: Waive d Testing in the ED is performed under the ED CLIA certificate #[id number]. Result Comment: [email or web address] Performed By: #### L [id number] ####[facility] ([facility])[address] [place] [address] Glucose [Mass/Vol] 113 mg/dL High 70-105 [facility] Comment on above: Order Comment: Waive d Testing in the ED is performed under the ED CLIA certificate #[id number]. Result Comment: [email or web address] Performed By: #### L [id number] ####[facility] ([facility])[address] [place] [address] 30on 03-09-2024 30 Normal [facility] 30 Normal [facility] B-TYPE NATRIURETIC PEPTIDEon 03-09-2024 Natriuretic peptide B (Bld) [Mass/Vol] 889 pg/mL High 0-100 [facility] Comment on above: Performed By: #### L [id number] ####[facility] ([facility])[address] [place] [place] [address] C-REACTIVE PROTEINon 024 C REACTIVE PROTEIN (MG/L) IN SER/PLAS 126.0 mg/L High 0.0-7.0 [facility] Comment on above: Performed By: #### L [id number] ####[facility] ([facility])[address] [place] [address] COMPREHENSIVE METABOLIC PANE Robbie 03-09-2024 Albumin [Mass/Vol] 3.2 g/dL Low 3.5-5.7 [facility] Comment on above: Performed By: #### L [id number] ####[facility] ([facility])[address] [place] [address] ALP [Catalytic activity/Vol] 81 U/L Normal 34-104 [facility] Comment on above: Performed By: #### L [id number] ####[facility] ([facility]AKER)[address] [place] [address] ALT [Catalytic activity/Vol] 237 U/L High 7-52 [facility] Comment on above: Performed By: #### L [id number] ####[facility] ([facility]AKER)[address] [place] [address] Anion gap [Moles/Vol] 14 mmol/L Normal 7-20 [facility] Comment on above: Performed By: #### L [id number] ####[facility] [place] [address] AST [Catalytic activity/Vol] 130 U/L High 13-39 [facility] Comment on above: Performed By: #### L [id number] ####[facility] ([facility])[address] [place] [address] Bilirubin [Mass/Vol] 0.3 mg/dL Normal 0.3-1.0 [facility] Comment on above: Performed By: #### L [id number] ####[facility] ([facility])[address] [place] [address] Calcium [Mass/Vol] 8.6 mg/dL Normal 8.6-10.3 [facility] Comment on above: Performed By: #### L [id number] ####[facility] ([facility])[address] [place] [address] Chloride [Moles/Vol] 93 mmol/L Low 98-107 [facility] Comment on above: Performed By: #### L [id number] ####[facility] ([facility]ER)[address] [place] [address] CO2 [Moles/Vol] 28 mmol/L Normal 21-31 [facility] Comment on above: Performed By: #### L [id number] ####[facility] ([facility]ER)[address] [place] [address] Creatinine [Mass/Vol] 1.03 mg/dL Normal 0.60-1.20 [facility] Comment on above: Performed By: #### L [id number] ####[facility] ([facility])[address] [place] [address] GLOMERULAR FILTRATION RATE ML/MIN/1.73 SQ M.PREDICTED 53.0 mL/min/1.73m*2 Low >60.0 [facility] Comment on above: Result Comment: The [facility]???s estimated glomerular filtration rate (eGFR) will [...] of individuals. Performed By: #### L [id number] ####[facility] ([facility])[address] [place] [address] Potassium [Moles/Vol] 3.9 mmol/L Normal 3.5-5.1 [facility] Comment on above: Performed By: #### L [id number] ####[facility] ([facility])[address] [place] [address] Protein [Mass/Vol] 6.7 g/dL Normal 6.0-8.3 [facility] Comment on above: Performed By: #### L [id number] ####[facility] ([facility])[address] [place] [address] Sodium [Moles/Vol] 131 mmol/L Low 136-145 [facility] Comment on above: Performed By: #### L [id number] ####[facility] ([facility])[address] [place] [address] Urea nitrogen [Mass/Vol] 30 mg/dL High 7-25 [facility] Comment on above: Performed By: #### L [id number] ####[facility] ([facility])[address] [place] [address] UREA NITROGEN/CREATININ E (MASS RATIO) IN SER/PLAS 29.1 Normal [facility] Comment on above: Performed By: #### L [id number] ####[facility] [address] CONSULTon 03-09-2024 CONSULT Normal [facility] CONSULT Normal [facility] HEMOGLOBIN A1Con 03-09-2024 Glucose [Mass/Vol] 123 mg/dL High 70-100 [facility] Comment on above: Performed By: #### L [id number] ####[facility] ([facility])[address] [place] [address] Performed By: #### L [id number] ####[facility] ([facility])[address] [place] [address] HbA1c (Bld) [Mass fraction] 5.9 % Normal 4.0-6.0 [facility] Comment on above: Performed By: #### L [id number] ####[facility] ([facility])[address] [place] [address] HEMOGLOBIN AND HEMATOCRIT, B LOODon 03-09-2024 Hematocrit (Bld) [Volume fraction] 26.0 % Low 36.0-48.0 [facility] Comment on above: Performed By: #### L [id number] ####[facility] ([facility]ER)[address] [place] [address] Hemoglobin (Bld) [Mass/Vol] 7.7 g/dL Low 12.0-15.0 [facility] Comment on above: Performed By: #### L [id number] ####[facility] [place] [address] Hematocrit (Bld) [Volume fraction] 26.8 % Low 36.0-48.0 [facility] Comment on above: Performed By: #### L [id number] ####[facility] ([facility]ER)[address] [place] [address] Hemoglobin (Bld) [Mass/Vol] 8.1 g/dL Low 12.0-15.0 [facility] Comment on above: Performed By: #### L [id number] ####[facility] ([facility])[address] [place] [address] HPon 03-09-2024 HP Normal [facility] IRON AND TIBCon 03-09-2024 IRON (UG/DL) IN SER/PLAS 11 ug/dL Low 50-212 [facility] Comment on above: Performed By: #### L [id number] ####[facility] ([facility])[address] [place] [address] IRON BINDING CAPACITY (UG/DL) IN SER/PLAS 280 ug/dL Normal 250-450 [facility] Comment on above: Performed By: #### L [id number] ####[facility] ([facility])[address] [place] [address] IRON BINDING CAPACITY.UNSATURAT ED (UG/DL) IN SER/PLAS 269.0 ug/dL Normal 155.0-355.0 [facility] Comment on above: Performed By: #### L [id number] ####[facility] ([facility])[address] [place] [address] IRON SATURATION (%) IN SER/PLAS 4 % Low 20-50 [facility] Comment on above: Performed By: #### L [id number] ####[facility] ([facility])[address] [place] [address] POCT GLUCOSE METER UNSOLICIT ED RESULTSon 03-09-2024 Glucose [Mass/Vol] 110 mg/dL High 70-105 [facility] Comment on above: Order Comment: Waive d Testing in the ED is performed under the ED CLIA certificate #[id number]. Result Comment: [email or web address] Performed By: #### L [id number] ####[facility] ([facility])[address] [place] [address] Glucose [Mass/Vol] 188 mg/dL High 70-105 [facility] Comment on above: Order Comment: Waive d Testing in the ED is performed under the ED CLIA certificate #[id number]. Result Comment: [email or web address] Performed By: #### L [id number] ####[facility] ([facility])[address] [facility] [address] Glucose [Mass/Vol] 147 mg/dL High 70-105 [facility] Comment on above: Order Comment: Waive d Testing in the ED is performed under the ED CLIA certificate #[id number]. Result Comment: [email or web address] g Performed By: #### L [id number] ####[facility] ([facility])[address] [place] [address] SEDIMENTATION RATEon 024 SEDIMENTATION RATE, ERYTHROCYTE 65 mm/hr High <=20 [facility] Comment on above: Performed By: #### L [id number] ####[facility] ([facility])[address] [facility] [place] [address] TROPONIN Ion 03-09-2024 Troponin I.cardiac [Mass/Vol] 0.01 ng/mL Normal 0.00-0.04 [facility] Comment on above: Performed By: #### L [id number] ####[facility] ([facility])[address] [facility] [place] [address] Troponin I.cardiac [Mass/Vol] 0.01 ng/mL Normal 0.00-0.04 [facility] Comment on above: Performed By: #### L [id number] ####[facility] ([facility])[address] [facility] [place] [address] TSH3 REFLEX TO FT4on 024 THYROTROPIN (MIU/L) IN SER/PLAS BY DETECTION LIMIT <= 0.05 MIU/L 1.31 mIU/L Normal 0.34-5.60 [facility] Comment on above: Performed By: #### L [id number] ####[facility] ([facility])[address] [facility] [place] [address] VITAMIN B12on 03-09-2024 Cobalamin (Vitamin B12) [Mass/Vol] 417 pg/mL Normal 180-914 [facility] Comment on above: Result Comment: REFE RENCE RANGES:180-914 pg/mL Uvgiqx068-035 pg/mL Indeterminate<145 pg/mL Deficient Performed By: #### L [id number] ####[facility] ([facility])[address] [place] [address] APTTon 03-08-2024 ACTIVATED PARTIAL THROMBOPLASTIN TIME IN PPP BY COAGULATION ASSAY 49.7 Seconds High 25.0-35.0 [facility] Comment on above: Result Comment: Clin ical significance of the APTT is questionable in the presence of heparin. Performed By: #### L [id number] ####[facility] ([facility])[address] [place] [address] B-TYPE NATRIURETIC PEPTIDEon 03-08-2024 Natriuretic peptide B (Bld) [Mass/Vol] 1085 pg/mL High 0-100 [facility] Comment on above: Performed By: #### L [id number] ####[facility] ([facility])[address] [place] [address] CBC WITH AUTO DIFFERENTIALon 03-08-2024 Basophils (Bld) [#/Vol] 0.01 10*3/uL Normal 0.00-0.20 [facility] Comment on above: Performed By: #### L [id number] ####[facility] ([facility])[address] [place] [address] Basophils/100 WBC (Bld) 0.1 % Normal 0.0-1.0 [facility] Comment on above: Performed By: #### L [id number] ####[facility] ([facility])[address] [place] [address] Eosinophils (Bld) [#/Vol] 0.00 10*3/uL Normal 0.00-0.50 [facility] Comment on above: Performed By: #### L [id number] ####[facility] ([facility])[address] [place] [address] Eosinophils/100 WBC (Bld) 0.0 % Normal 0.0-6.0 [facility] Comment on above: Performed By: #### L [id number] ####[facility] ([facility])[address] [place] [address] Erythrocyte distribution width (RBC) [Ratio] 18.0 % High 11.5-15.0 [facility] Comment on above: Performed By: #### L [id number] ####[facility] ([facility])[address] [place] [address] ERYTHROCYTE MEAN CORPUSCULAR HEMOGLOBIN CONCENTRATION (G/DL) BY AUTOMATED 30.7 g/dL Low 32.0-35.0 [facility] Comment on above: Performed By: #### L [id number] ####[facility] ([facility])[address] [place] [address] Hematocrit (Bld) [Volume fraction] 26.4 % Low 36.0-48.0 [facility] Comment on above: Performed By: #### L [id number] ####[facility] ([facility])[address] [place] [address] Hemoglobin (Bld) [Mass/Vol] 8.1 g/dL Low 12.0-15.0 [facility] Comment on above: Performed By: #### L [id number] ####[facility] ([facility])[address] [place] [address] Immature granulocytes (Bld) [#/Vol] 0.10 10*3/uL Normal 0.00-0.20 [facility] Comment on above: Performed By: #### L [id number] ####[facility] ([facility])[address] [place] [address] Immature granulocytes/100 WBC (Bld) 1.0 % Normal 0.0-1.0 [facility] Comment on above: Performed By: #### L [id number] ####[facility] ([facility])[address] [place] [address] Lymphocytes (Bld) [#/Vol] 0.93 10*3/uL Low 1.20-4.00 [facility] Comment on above: Performed By: #### L [id number] ####[facility] ([facility])[address] [place] [address] Lymphocytes/100 WBC (Bld) 8.8 % Low 20.0-45.0 [facility] Comment on above: Performed By: #### L [id number] ####[facility] ([facility])[address] [place] [address] MCH (RBC) [Entitic mass] 22.2 pg Low 27.0-33.0 [facility] Comment on above: Performed By: #### L [id number] ####[facility] ([facility])[address] [place] [address] MCV (RBC) [Entitic vol] 72.3 fL Low 82.0-98.0 [facility] Comment on above: Performed By: #### L [id number] ####[facility] ([facility])[address] [place] [address] Monocytes (Bld) [#/Vol] 0.55 10*3/uL Normal 0.10-1.00 [facility] Comment on above: Performed By: #### L [id number] ####[facility] ([facility])[address] [place] [address] Monocytes/100 WBC (Bld) 5.2 % Normal 5.0-12.0 [facility] Comment on above: Performed By: #### L [id number] ####[facility] [place] [address] Neutrophils (Bld) [#/Vol] 8.92 10*3/uL High 1.60-7.60 [facility] Comment on above: Performed By: #### L [id number] ####[facility] ([facility])[address] [place] [address] Neutrophils/100 WBC (Bld) 84.9 % High 40.0-72.0 [facility] Comment on above: Performed By: #### L [id number] ####[facility] [place] [address] NRBC (PER 100 WBCS) BY AUTOMATED COUNT 0.0 % Normal 0 [facility] Comment on above: Performed By: #### L [id number] ####[facility] [place] [address] PLATELETS (10*3/UL) IN BLOOD AUTOMATED COUNT 307 10*3/uL Normal 150-400 [facility] Comment on above: Performed By: #### L [id number] ####[facility] ([facility])[address] [place] [address] RBC (Bld) [#/Vol] 3.65 10*6/uL Low 3.80-5.00 [place] Comment on above: Performed By: #### L [id number] ####[facility] ([facility])[address] [place] [address] WBC (Bld) [#/Vol] 10.51 10*3/uL Normal 4.00-10.60 [facility] Comment on above: Performed By: #### L [id number] ####[facility] ([facility])[address] [place] [address] COMPREHENSIVE METABOLIC PANE Robbie 03-08-2024 Albumin [Mass/Vol] 3.3 g/dL Low 3.5-5.7 [facility] Comment on above: Performed By: #### L [id number] ####[facility] ([facility])[address] [place] [address] ALP [Catalytic activity/Vol] 95 U/L Normal 34-104 [facility] Comment on above: Performed By: #### L [id number] ####[facility] ([facility])[address] [place] [address] ALT [Catalytic activity/Vol] 272 U/L High 7-52 [facility] Comment on above: Performed By: #### L [id number] ####[facility] ([facility])[address] [place] [address] Anion gap [Moles/Vol] 13 mmol/L Normal 7-20 [facility] Comment on above: Performed By: #### L [id number] ####[facility] ([facility] [place] [address] AST [Catalytic activity/Vol] 197 U/L High 13-39 [facility] Comment on above: Performed By: #### L [id number] ####[facility] ([facility] [place] [address] Bilirubin [Mass/Vol] 0.3 mg/dL Normal 0.3-1.0 [facility] Comment on above: Performed By: #### L [id number] ####[facility] ([facility])[address] [place] [address] Calcium [Mass/Vol] 8.5 mg/dL Low 8.6-10.3 [facility] Comment on above: Performed By: #### L [id number] ####[facility] ([facility])[address] [place] [address] Chloride [Moles/Vol] 90 mmol/L Low 98-107 [facility] Comment on above: Performed By: #### L [id number] ####[facility] ([facility])[address] [place] [address] CO2 [Moles/Vol] 27 mmol/L Normal 21-31 [facility] Comment on above: Performed By: #### L [id number] ####[facility] ([facility])[address] [place] [address] Creatinine [Mass/Vol] 1.02 mg/dL Normal 0.60-1.20 [facility] Comment on above: Performed By: #### L [id number] ####[facility] ([facility])[address] [place] [address] GLOMERULAR FILTRATION RATE ML/MIN/1.73 SQ M.PREDICTED 53.6 mL/min/1.73m*2 Low >60.0 [facility] Comment on above: Result Comment: The [facility]???s estimated glomerular filtration rate (eGFR) will [...] of individuals. Performed By: #### L [id number] ####[facility] ([facility])[address] [place] [address] Glucose [Mass/Vol] 201 mg/dL High 70-100 [facility] Comment on above: Performed By: #### L [id number] ####[facility] ([facility])[address] [place] [address] Potassium [Moles/Vol] 3.6 mmol/L Normal 3.5-5.1 [facility] Comment on above: Performed By: #### L [id number] ####[facility] ([facility])[address] [place] [address] Protein [Mass/Vol] 6.7 g/dL Normal 6.0-8.3 [facility] Comment on above: Performed By: #### L [id number] ####[facility] ([facility])[address] [place] [address] Sodium [Moles/Vol] 126 mmol/L Low 136-145 [facility] Comment on above: Performed By: #### L [id number] ####[facility] ([facility])[address] [place] [address] Urea nitrogen [Mass/Vol] 34 mg/dL High 7-25 [facility] Comment on above: Performed By: #### L [id number] ####[facility] ([facility])[address] [place] [address] UREA NITROGEN/CREATININ E (MASS RATIO) IN SER/PLAS 33.3 [facility] Comment on above: Performed By: #### L [id number] ####[facility] ([facility])[address] [place] [address] HPon 03-08-2024 HP Normal [facility] LACTIC ACID WITH 4 HOUR REFL EXon 07-25-2024 LACTATE (MMOL/L) IN SER/PLAS 1.8 mmol/L Normal 0.5-2.2 [facility] Comment on above: Performed By: #### L [id number] ####[facility] ([facility])[address] [facility] [place] [address] MAGNESIUMon 03-08-2024 Magnesium [Mass/Vol] 1.8 mg/dL Low 1.9-2.7 [facility] Comment on above: Performed By: #### L [id number] ####[facility] ([facility])[address] [facility] [place] [address] PHOSPHORUSon 03-08-2024 Magnesium [Mass/Vol] 4.5 mg/dL Normal 2.5-5.0 [facility] Comment on above: Performed By: #### L [id number] ####[facility] ([facility])[address] [facility] [place] [address] POCT GLUCOSE METER UNSOLICIT ED RESULTSon 03-08-2024 Glucose [Mass/Vol] 210 mg/dL High 70-105 [facility] Comment on above: Order Comment: Waive d Testing in the ED is performed under the ED CLIA certificate #[id number]. Result Comment: msig g Performed By: #### L [id number] ####[facility] ([facility])[address] [place] [address] PROTIME-INRon 03-08-2024 INR IN PPP BY COAGULATION ASSAY 2.32 High 0.90-1.10 [facility] Comment on above: Result Comment: ACCC [...] CHEST 1995;[id number]. Performed By: #### L [id number] ####[facility] [place] [address] PROTHROMBIN TIME (PT) IN PPP BY COAGULATION ASSAY 25.0 Seconds High 12.3-14.8 [facility] Comment on above: Performed By: #### L [id number] ####[facility] ([facility])[address] [place] [address] TROPONIN Ion 03-08-2024 Troponin I.cardiac [Mass/Vol] 0.01 ng/mL Normal 0.00-0.04 [facility] Comment on above: Performed By: #### L [id number] ####[facility] ([employer])[address] [place] [address] HVF 24-2 STANDARD - OUon HVF 24-2 STANDARD - OU See note Normal [facility] Perimetry studyon 12-01-[address] [facility] Radiology Study observation (narrative) [facility] ECG 12 leadon 06-28-2023 Atrial Rate [facility] [place] [facility] P-R Interval [facility] Q-T Interval [facility] Q-T Interval (corrected) [facility] QRS Duration [facility] QTC Calculation (Bezet) [facility] R [place] [facility] [place] [facility] Ventricular Rate [facility] 36on 06-15-2023 36 Spoke with patient a nd she is back to taking the diltiazem how Mary wanted her to and she's feeling fine. BP isn't as low, but still up and down. Normal [facility] 36on 06-10-2023 36 Normal [facility] OCT OPTIC NERVE OUon 023 OCT OPTIC NERVE OU See note Normal [facility] Ophthalmic OCT panelon 05-31 See note RADIOLOGY U [facility] Radiology Study observation (narrative) [facility] YAG LASER-OSon 05-31-2023 YAG LASER-OS See note Normal [facility] See note [facility] 36on 04-27-2023 36 That is fine she can stop...has she been treated for the yeast at least ? Normal [facility] Basic Metabolic Profon 03-09 Anion gap [Moles/Vol] 9 mmol/L Normal - [facility] Comment on above: Performed By: #### B MP, BNP #### [facility] [address] [place] [address] Director Strategy: Jay Peter MD BUN/CRE Ratio 10 Normal - [facility] Comment on above: Performed By: #### B MP, BNP #### [facility] [address] [place] [address] Director Strategy: Jay Peter MD Calcium [Mass/Vol] 9.0 mg/dL Normal 8.6-10.4 [facility] Comment on above: Performed By: #### B MP, BNP #### [facility] [address] [place], [place] [id number] Director Strategy: Jay Peter MD Chloride [Moles/Vol] 96 mmol/L Low 98-107 [facility] Comment on above: Performed By: #### B MP, BNP #### [facility] [address] [place] [address] Director Strategy: Jay Peter MD CO2 [Moles/Vol] 28 mmol/L Normal 20- [facility] Comment on above: Performed By: #### B MP, BNP #### [facility] [address] [place] [address] Director Strategy: Jay Peter MD Creatinine [Mass/Vol] 0.9 mg/dL Normal 0.5-0.9 [facility] Comment on above: Performed By: #### B MP, BNP #### [facility] [address] [place], [place] [id number] Director Strategy: Jay Peter MD GFR/1.73 sq M.predicted among non-blacks MDRD (S/P/Bld) [Vol rate/Area] mL/min/{1.73_m2} Normal >60 [facility] Comment on above: Result Comment: These results [...] Performed By: #### B MP, BNP #### [facility] [address] [place] [address] Director Strategy: Jay Peter MD Glucose [Mass/Vol] 162 mg/dL High 70-99 [facility] Comment on above: Performed By: #### B MP, BNP #### [facility] [address] [place] [address] Dr[address] [place], [place] [id number] Director Strategy: Jay Peter MD Potassium [Moles/Vol] 4.3 mmol/L Normal 3.7-5.3 [facility] Comment on above: Performed By: #### B MP, BNP #### [facility] [address] [place] [address] Director Strategy: Jay Peter MD Sodium [Moles/Vol] 133 mmol/L Low 135-144 [facility] Comment on above: Performed By: #### B MP, BNP #### [facility] [address] [place] [address] Director Strategy: Jay Peter MD Urea nitrogen [Mass/Vol] 9 mg/dL Normal 8-23 [facility] Comment on above: Performed By: #### B MP, BNP #### [facility] [address] [place] [address] Director Strategy: Jay Peter MD Brain Natri. Peptideon 03-09 Natriuretic peptide B (Bld) [Mass/Vol] 1518 pg/mL High <300 [facility] Comment on above: Result Comment: An age-independent cutoff point of 300 pg/ml has a 98% negative predictive value excluding acute heart failure. Performed By: #### B MP, BNP #### [facility] [address] [place] [address] Director Strategy: Jay Peter MD PROF CHEM 8 (BAS METB)on Anion gap [Moles/Vol] 10.1 mmol/L Normal [facility] Comment on above: Performed By: #### L IPID, T7, CMP, TSH #### [facility] [address] [address] [address] Jorge Glaser Calcium [Mass/Vol] 9.1 mg/dL Normal 8.5-10.1 [facility] Comment on above: Performed By: #### L IPID, T7, CMP, TSH #### [facility] [address] [address] [address] Jorge Glaser Chloride [Moles/Vol] 98 mmol/L Normal 98-107 [facility] Comment on above: Performed By: #### L IPID, T7, CMP, TSH #### [facility] [address] [address] [address] Jorge Glaser CO2 [Moles/Vol] 32.1 mmol/L Critically high 21.0-32.0 [facility] Comment on above: Performed By: #### L IPID, T7, CMP, TSH #### [facility] [address] [address] [address] Jorge Glaser Creatinine [Mass/Vol] 0.93 mg/dL Normal 0.55-1.02 [facility] Comment on above: Performed By: #### L IPID, T7, CMP, TSH #### [facility] [address] [address] [address] Jorge Glaser EGFR-AF TAJIK >60 Normal >=60 [facility] Comment on above: Performed By: #### L IPID, T7, CMP, TSH #### [facility] [address] [address] [address] Jorge Glaser EGFR-NON AF TAJIK 57 mL/min/1.73m2 Critically low >=60 [facility] Comment on above: Performed By: #### L IPID, T7, CMP, TSH #### [facility] [address] [address] [address] Jorge Glaser Glucose [Mass/Vol] 103 mg/dL Normal 74-106 [facility] Comment on above: Performed By: #### L IPID, T7, CMP, TSH #### [facility] [address] [address] [address] Jorge Glaser Potassium [Moles/Vol] 4.2 mmol/L Normal 3.5-5.1 [facility] Comment on above: Performed By: #### L IPID, T7, CMP, TSH #### [facility] [address] [address] [address] Jorge Glaser Sodium [Moles/Vol] 136 mmol/L Normal 136-145 [facility] Comment on above: Performed By: #### L IPID, T7, CMP, TSH #### [facility] [address] [address] [address] Jorge Glaser Urea nitrogen [Mass/Vol] 16.0 mg/dL Normal 7.0-18.0 [facility] Comment on above: Performed By: #### L IPID, T7, CMP, TSH #### [facility] [address] [address] [address] Jorge Glaser Urea nitrogen/Creatinin e [Mass ratio] 17.2 mg/mg Normal [facility] Comment on above: Performed By: #### L IPID, T7, CMP, TSH #### [facility] [address] [place] [address] Dr. Jorge Glaser BNPon 12-01-2022 Natriuretic peptide B (Bld) [Mass/Vol] 379.0 pg/mL Normal <=1,800.0 [facility] Comment on above: Performed By: #### L IPID, T7, CMP, TSH #### [facility] [address] [place] [address] Dr. Jorge Glaser CBC AUTO DIFFon 12-01-2022 BASO # 0.1 103/ul Normal 0.0-0.1 [facility] Comment on above: Performed By: #### C BC #### [facility] [address] [place] [address] Dr. Jorge Glaser Basophils/100 WBC (Bld) 1.3 % Normal 0.2-2.0 [facility] Comment on above: Performed By: #### C BC #### [facility] [address] [place] [address] Dr. Jorge Glaser EO # 0.2 103/ul Normal 0.0-0.7 [facility] Comment on above: Performed By: #### C BC #### [facility] [address] [place] [address] Dr. Jorge Glaser Eosinophils/100 WBC (Bld) 3.1 % Normal 0.9-7.0 [facility] Comment on above: Performed By: #### C BC #### [facility] [address] [place] [address] Dr. Jorge Glaser Erythrocyte distribution width (RBC) [Ratio] 14.4 % Normal 11.0-15.0 [facility] Comment on above: Performed By: #### C BC #### [facility] [address] [place] [address] Dr. Jorge Glaser Hematocrit (Bld) [Volume fraction] 36.1 % Normal 36.0-48.0 [facility] Comment on above: Performed By: #### C BC #### [facility] [address] [place] [address] Dr. Jorge Glaser Hemoglobin (Bld) [Mass/Vol] 11.5 g/dL Critically low 12.0-16.0 [facility] Comment on above: Performed By: #### C BC #### [facility] [address] [place] [address] Dr. Jorge Glaser IG # 0.05 10e3/ul Critically high 0.00-0.03 [facility] Comment on above: Performed By: #### C BC #### [facility] [address] [place] [address] Dr. Jorge Glaser IG % 0.6 % Critically high 0.0-0.5 [facility] Comment on above: Performed By: #### C BC #### [facility] [address] [place] [address] Dr. Jorge Glaser LYMPH # 1.7 103/ul Normal 1.2-3.8 [facility] Comment on above: Performed By: #### C BC #### [facility] [address] [place] [address] Dr. Jorge Glaser Lymphocytes/100 WBC (Bld) 21.2 % Normal 20.5-60.0 [facility] Comment on above: Performed By: #### C BC #### [facility] [address] [place] [address] Dr. Jorge Glaser MANUAL DIFF REQ NO Normal [facility] Comment on above: Performed By: #### C BC #### [facility] [address] [place] [address] Dr. Jorge Glaser MCH (RBC) [Entitic mass] 27.3 pg Normal 26.7-34.0 [facility] Comment on above: Performed By: #### C BC #### [facility] [address] [place] [address] Dr. Jorge Glaser MCHC (RBC) [Mass/Vol] 31.9 g/dL Normal 29.9-35.2 [facility] Comment on above: Performed By: #### C BC #### [facility] [address] [place] [address] Dr. Jorge Glaser MCV (RBC) [Entitic vol] 85.5 fL Normal 81.0-99.0 [facility] Comment on above: Performed By: #### C BC #### [facility] [address] [address] [address] Jorge Glaser MONO # 0.8 103/ul Normal 0.3-0.8 [facility] Comment on above: Performed By: #### C BC #### [facility] [address] [address] [address] Jorge Glaser Monocytes/100 WBC (Bld) 10.5 % Normal 1.7-12.0 [facility] Comment on above: Performed By: #### C BC #### [facility] [address] [address] [address] Jorge Glaser NEUT # 4.9 103/ul Normal 1.4-6.5 [facility] Comment on above: Performed By: #### C BC #### [facility] [address] [place] [address] Dr. Jorge Glaser Neutrophils/100 WBC (Bld) 63.3 % Normal 43.0-75.0 [facility] Comment on above: Performed By: #### C BC #### [facility] [address] [place] [address] Dr. Jorge Glaser Platelet mean volume (Bld) [Entitic vol] 8.7 fL Critically low 9.5-13.5 [facility] Comment on above: Performed By: #### C BC #### [facility] [address] [place] [address] Dr. Jorge Glaser PLT 226 103/ul Normal 150-450 [facility] Comment on above: Performed By: #### C BC #### [facility] [address] [place] [address] Dr. Jorge Glaser RBC 4.22 106/ul Normal 4.20-5.40 [facility] Comment on above: Performed By: #### C BC #### [facility] [address] [place] [address] Dr. Jorge Glaser WBC 7.8 103/ul Normal 4.0-11.0 [facility] Comment on above: Performed By: #### C BC #### [facility] [address] [place] [address] Dr. Jorge Glaser FREE THYROXINE INDEX T7on FTI 2.17 Normal 1.30-4.50 [facility] Comment on above: Performed By: #### L IPID, T7, CMP, TSH #### [facility] [address] [place] [address] Dr. Jorge Glaser T3U 31.0 % Normal 30.0-39.0 [facility] Comment on above: Performed By: #### L IPID, T7, CMP, TSH #### [facility] [address] [place] [address] Dr. Jorge Glaser T4 [Mass/Vol] 7.00 ug/dL Normal 4.80-13.90 [facility] Comment on above: Performed By: #### L IPID, T7, CMP, TSH #### [facility] [address] [place] [address] Dr. Jorge Glaser PROF 14(COMP METB)on 023 Albumin [Mass/Vol] 3.5 g/dL Normal 3.4-5.0 [facility] Comment on above: Performed By: #### L IPID, T7, CMP, TSH #### [facility] [address] [place] [address] Dr. Jorge Glaser Albumin/Globulin [Mass ratio] 0.9 {ratio} Normal [facility] Comment on above: Performed By: #### L IPID, T7, CMP, TSH #### [facility] [address] [place] [address] Dr. Jorge Glaser ALP [Catalytic activity/Vol] 56 U/L Normal 46-116 [facility] Comment on above: Performed By: #### L IPID, T7, CMP, TSH #### [facility] [address] [place] [address] Dr. Jorge Glaser ALT [Catalytic activity/Vol] 28 U/L Normal 14-59 [facility] Comment on above: Performed By: #### L IPID, T7, CMP, TSH #### [facility] [address] [place] [address] Dr. Jorge Glaser Anion gap [Moles/Vol] 10.2 mmol/L Normal [facility] Comment on above: Performed By: #### L IPID, T7, CMP, TSH #### [facility] [address] [address] [address] Jorge Glaser AST [Catalytic activity/Vol] 20 U/L Normal 15-37 [facility] Comment on above: Performed By: #### L IPID, T7, CMP, TSH #### [facility] [address] [address] [address] Jorge Glaser Bilirubin [Mass/Vol] 0.4 mg/dL Normal 0.2-1.0 [facility] Comment on above: Performed By: #### L IPID, T7, CMP, TSH #### [facility] [address] [address] [address] Jorge Glaser Calcium [Mass/Vol] 9.8 mg/dL Normal 8.5-10.1 [facility] Comment on above: Performed By: #### L IPID, T7, CMP, TSH #### [facility] [address] [address] [address] Jorge Glaser Chloride [Moles/Vol] 93 mmol/L Critically low 98-107 [facility] Comment on above: Performed By: #### L IPID, T7, CMP, TSH #### [facility] [address] [address] [address] Jorge Glaser CO2 [Moles/Vol] 34.5 mmol/L Critically high 21.0-32.0 [facility] Comment on above: Performed By: #### L IPID, T7, CMP, TSH #### [facility] [address] [address] [address] Jorge Glaser Creatinine [Mass/Vol] 1.01 mg/dL Normal 0.55-1.02 [facility] Comment on above: Performed By: #### L IPID, T7, CMP, TSH #### [facility] [address] [address] [address] Jorge Glaser EGFR-AF TAJIK >60 Normal >=60 [facility] Comment on above: Performed By: #### L IPID, T7, CMP, TSH #### [facility] [address] [address] [address] Jorge Glaser EGFR-NON AF TAJIK 52 mL/min/1.73m2 Critically low >=60 [facility] Comment on above: Performed By: #### L IPID, T7, CMP, TSH #### [facility] [address] [address] [address] Jorge Glaser Globulin (S) [Mass/Vol] 4.0 g/dL Normal [facility] Comment on above: Performed By: #### L IPID, T7, CMP, TSH #### [facility] [address] [place] [address] Dr. Jorge Glaser Glucose [Mass/Vol] 103 mg/dL Normal 74-106 [facility] Comment on above: Performed By: #### L IPID, T7, CMP, TSH #### [facility] [address] [place] [address] Dr. Jorge Glaser Potassium [Moles/Vol] 3.7 mmol/L Normal 3.5-5.1 [facility] Comment on above: Performed By: #### L IPID, T7, CMP, TSH #### [facility] [address] [place] [address] Dr. Jorge Glaser Protein [Mass/Vol] 7.5 g/dL Normal 6.4-8.2 [facility] Comment on above: Performed By: #### L IPID, T7, CMP, TSH #### [facility] [address] [place] [address] Dr. Jorge Glaser Sodium [Moles/Vol] 134 mmol/L Critically low 136-145 [facility] Comment on above: Performed By: #### L IPID, T7, CMP, TSH #### [facility] [address] [place] [address] Dr. Jorge Glaser Urea nitrogen [Mass/Vol] 17.0 mg/dL Normal 7.0-18.0 [facility] Comment on above: Performed By: #### L IPID, T7, CMP, TSH #### [facility] [address] [address] [address] Jorge Glaser Urea nitrogen/Creatinin e [Mass ratio] 16.8 mg/mg Normal [facility] Comment on above: Performed By: #### L IPID, T7, CMP, TSH #### [facility] [address] [address] [address] Jorge Glaser TSHon 12-01-2022 TSH 4.022 uIU/mL Critically high 0.358-3.740 [facility] Comment on above: Performed By: #### L IPID, T7, CMP, TSH #### [facility] [address] [place] [address] Dr. Jorge Glaser XR CHEST 2 Von [...] ABIMBOLA AMADOR Date: 2022-12-01 13:06 Normal [facility] FREE T3on 11-11-2022 FREE T3 2.51 pg/mlL Normal 2.18-3.98 [facility] Comment on above: Performed By: #### L IPID, T7, CMP, TSH #### [facility] [address] [place] [address] Dr. Jorge Glaser T4on 11-11-2022 T4 [Mass/Vol] 6.00 ug/dL Normal 4.80-13.90 [facility] Comment on above: Performed By: #### L IPID, T7, CMP, TSH #### [facility] [address] [place] [address] Dr. Jorge Glaser TSHon 11-11-2022 TSH 4.223 uIU/mL Critically high 0.358-3.740 [facility] Comment on above: Performed By: #### L IPID, T7, CMP, TSH #### [facility] [address] [place] [address] Dr. Jorge Glaser BNPon 11-04-2022 Natriuretic peptide B (Bld) [Mass/Vol] 479.0 pg/mL Normal <=1,800.0 [facility] Comment on above: Performed By: #### L IPID, T7, CMP, TSH #### [facility] [address] [place] [address] Dr. Jorge Glaser CBC AUTO DIFFon 11-04-2022 BASO # 0.1 103/ul Normal 0.0-0.1 [facility] Comment on above: Performed By: #### C BC #### [facility] [address] [place] [address] Dr. Jorge Glaser Basophils/100 WBC (Bld) 0.8 % Normal 0.2-2.0 [facility] Comment on above: Performed By: #### C BC #### [facility] [address] [place] [address] Dr. Jorge Glaser EO # 0.1 103/ul Normal 0.0-0.7 [facility] Comment on above: Performed By: #### C BC #### [facility] [address] [place] [address] Dr. Jorge Glaser Eosinophils/100 WBC (Bld) 0.8 % Critically low 0.9-7.0 [facility] Comment on above: Performed By: #### C BC #### [facility] [address] [place] [address] Dr. Jorge Glaser Erythrocyte distribution width (RBC) [Ratio] 13.9 % Normal 11.0-15.0 [facility] Comment on above: Performed By: #### C BC #### [facility] [address] [place] [address] Dr. Jorge Glaser Hematocrit (Bld) [Volume fraction] 37.7 % Normal 36.0-48.0 [facility] Comment on above: Performed By: #### C BC #### [facility] [address] [place] [address] Dr. Jorge Glaser Hemoglobin (Bld) [Mass/Vol] 12.2 g/dL Normal 12.0-16.0 [facility] Comment on above: Performed By: #### C BC #### [facility] [address] [place] [address] Dr. Jorge Glaser IG # 0.14 10e3/ul Critically high 0.00-0.03 [facility] Comment on above: Performed By: #### C BC #### [facility] [address] [place] [address] Dr. Jorge Glaser IG % 1.1 % Critically high 0.0-0.5 [facility] Comment on above: Performed By: #### C BC #### [facility] [address] [place] [address] Dr. Jorge Glaser LYMPH # 1.6 103/ul Normal 1.2-3.8 [facility] Comment on above: Performed By: #### C BC #### [facility] [address] [place] [address] Dr. Jorge Glaser Lymphocytes/100 WBC (Bld) 11.8 % Critically low 20.5-60.0 [facility] Comment on above: Performed By: #### C BC #### [facility] [address] [place] [address] Dr. Jorge Glaser MANUAL DIFF REQ NO Normal [facility] Comment on above: Performed By: #### C BC #### [facility] [address] [place] [address] Dr. Jorge Glaser MCH (RBC) [Entitic mass] 28.2 pg Normal 26.7-34.0 [facility] Comment on above: Performed By: #### C BC #### [facility] [address] [place] [address] Dr. Jorge Glaser MCHC (RBC) [Mass/Vol] 32.4 g/dL Normal 29.9-35.2 [facility] Comment on above: Performed By: #### C BC #### [facility] [address] [place] [address] Dr. Jorge Glaser MCV (RBC) [Entitic vol] 87.3 fL Normal 81.0-99.0 [facility] Comment on above: Performed By: #### C BC #### [facility] [address] [address] [address] Jorge Glaser MONO # 0.8 103/ul Normal 0.3-0.8 [facility] Comment on above: Performed By: #### C BC #### [facility] [address] [place] [address] Dr. Jorge Glaser Monocytes/100 WBC (Bld) 5.9 % Normal 1.7-12.0 [facility] Comment on above: Performed By: #### C BC #### [facility] [address] [place] [address] Dr. Jorge Glaser NEUT # 10.4 103/ul Critically high 1.4-6.5 [facility] Comment on above: Performed By: #### C BC #### [facility] [address] [place] [address] Dr. Jorge Glaser Neutrophils/100 WBC (Bld) 79.6 % Critically high 43.0-75.0 [facility] Comment on above: Performed By: #### C BC #### [facility] [address] [place] [address] Dr. Jorge Glaser Platelet mean volume (Bld) [Entitic vol] 9.0 fL Critically low 9.5-13.5 [facility] Comment on above: Performed By: #### C BC #### [facility] [address] [place] [address] Dr. Jorge Glaser PLT 216 103/ul Normal 150-450 [facility] Comment on above: Performed By: #### C BC #### [facility] [address] [place] [address] Dr. Jorge Glaser RBC 4.32 106/ul Normal 4.20-5.40 [facility] Comment on above: Performed By: #### C BC #### [facility] [address] [place] [address] Dr. Jorge Glaser WBC 13.1 103/ul Critically high 4.0-11.0 [facility] Comment on above: Performed By: #### C BC #### [facility] [address] [address] [address] Jorge Glaser ECHOCARDIO M/2D COMPLETEon 0 11-04-2022 ECHOCARDIO M/2D COMPLETE Patient: KAREN GIFFORD Exam Date: 11/04/2022 : 1935 Gender:F Ordering : [facility]OVAL [facility] Admission #: [id number] Family : Order #: [id number] CLICK HERE TO VIEW EXAM ECHOCARDIOGRAM REPORT [...] Area (VTI): 2.20 cm2, 2.20 cm2 Deceleration Gosper: 2.65 m/s2 Pressure Half-Time: 481.67 ms Peak [...] M.D. on 11/04/2022 at 22:09 Normal [facility] PROF CHEM 8 (BAS METB)on Anion gap [Moles/Vol] 10.6 mmol/L Normal [facility] Comment on above: Performed By: #### L IPID, T7, CMP, TSH #### [facility] [address] [address] [address] Jorge Glaser Calcium [Mass/Vol] 9.5 mg/dL Normal 8.5-10.1 [facility] Comment on above: Performed By: #### L IPID, T7, CMP, TSH #### [facility] [address] [address] [address] Jorge Glaser Chloride [Moles/Vol] 97 mmol/L Critically low 98-107 [facility] Comment on above: Performed By: #### L IPID, T7, CMP, TSH #### [facility] [address] [place] [address] Dr. Jorge Glaser CO2 [Moles/Vol] 32.3 mmol/L Critically high 21.0-32.0 [facility] Comment on above: Performed By: #### L IPID, T7, CMP, TSH #### [facility] [address] [address] [address] Jorge Glaser Creatinine [Mass/Vol] 0.79 mg/dL Normal 0.55-1.02 [facility] Comment on above: Performed By: #### L IPID, T7, CMP, TSH #### [facility] [address] [address] [address] Jorge Glaser EGFR-AF TAJIK >60 Normal >=60 [facility] Comment on above: Performed By: #### L IPID, T7, CMP, TSH #### [facility] [address] [place] [address] Dr. Jorge Glaser EGFR-NON AF TAJIK >60 Normal >=60 [facility] Comment on above: Performed By: #### L IPID, T7, CMP, TSH #### [facility] [address] [address] [address] Jorge Glaser Glucose [Mass/Vol] 161 mg/dL Critically high 74-106 [facility] Comment on above: Performed By: #### L IPID, T7, CMP, TSH #### [facility] [address] [place] [address] Dr. Jorge Glaser Potassium [Moles/Vol] 3.9 mmol/L Normal 3.5-5.1 [facility] Comment on above: Performed By: #### L IPID, T7, CMP, TSH #### [facility] [address] [address] [address] Jorge Glaser Sodium [Moles/Vol] 136 mmol/L Normal 136-145 [facility] Comment on above: Performed By: #### L IPID, T7, CMP, TSH #### [facility] [address] [place] [address] Dr. Jorge Glaser Urea nitrogen [Mass/Vol] 20.0 mg/dL Critically high 7.0-18.0 [facility] Comment on above: Performed By: #### L IPID, T7, CMP, TSH #### [facility] [address] [place] [address] Dr. Jorge Glaser Urea nitrogen/Creatinin e [Mass ratio] 25.3 mg/mg Normal [facility] Comment on above: Performed By: #### L IPID, T7, CMP, TSH #### [facility] [address] [place] [address] Dr. Jorge Glaser FREE T3on 10-04-2022 FREE T3 2.15 pg/mlL Critically low 2.18-3.98 [facility] Comment on above: Performed By: #### L IPID, T7, CMP, TSH #### [facility] [address] [place] [address] Dr. Jorge Glaser POTASSIUMon 10-04-2022 Potassium [Moles/Vol] 3.5 mmol/L Normal 3.5-5.1 [facility] Comment on above: Performed By: #### L IPID, T7, CMP, TSH #### [facility] [address] [place] [address] Dr. Jorge Glaser T4on 02-20-2023 T4 [Mass/Vol] 6.50 ug/dL Normal 4.80-13.90 [facility] Comment on above: Performed By: #### T 4, TSH, FT3, K #### [facility] [address] [address] [address] Jorge Glaser TSHon 10-04-2022 TSH 4.603 uIU/mL Critically high 0.358-3.740 [facility] Comment on above: Performed By: #### L IPID, T7, CMP, TSH #### [facility] [address] [place] [address] Dr. Jorge Glaser OCC BLD IMMUNO SCREENon 08-15 OCCULT BLOOD Negative Normal NEGATIVE [facility] Comment on above: Performed By: #### O BSCRN #### [facility] [address] [place] [address] Dr. Jorge Glaser CBC AUTO DIFFon 09-01-2022 BASO # 0.1 103/ul Normal 0.0-0.1 [facility] Comment on above: Performed By: #### L IPID, T7, CMP, TSH #### [facility] [address] [place] [address] Dr. Jorge Glaser Basophils/100 WBC (Bld) 1.0 % Normal 0.2-2.0 [facility] Comment on above: Performed By: #### L IPID, T7, CMP, TSH #### [facility] [address] [place] [address] Dr. Jorge Glaser EO # 0.3 103/ul Normal 0.0-0.7 [facility] Comment on above: Performed By: #### L IPID, T7, CMP, TSH #### [facility] [address] [place] [address] Dr. Jorge Glaser Eosinophils/100 WBC (Bld) 3.8 % Normal 0.9-7.0 [facility] Comment on above: Performed By: #### L IPID, T7, CMP, TSH #### [facility] [address] [place] [address] Dr. Jorge Glaser Erythrocyte distribution width (RBC) [Ratio] 13.4 % Normal 11.0-15.0 [facility] Comment on above: Performed By: #### L IPID, T7, CMP, TSH #### [facility] [address] [place] [address] Dr. Jorge Glaser Hematocrit (Bld) [Volume fraction] 39.0 % Normal 36.0-48.0 [facility] Comment on above: Performed By: #### L IPID, T7, CMP, TSH #### [facility] [address] [place] [address] Dr. Jorge Glaser Hemoglobin (Bld) [Mass/Vol] 12.8 g/dL Normal 12.0-16.0 [facility] Comment on above: Performed By: #### L IPID, T7, CMP, TSH #### [facility] [address] [place] [address] Dr. Jorge Glaser IG # 0.10 10e3/ul Critically high 0.00-0.03 [facility] Comment on above: Performed By: #### L IPID, T7, CMP, TSH #### [facility] [address] [place] [address] Dr. Jorge Glaser IG % 1.1 % Critically high 0.0-0.5 [facility] Comment on above: Performed By: #### L IPID, T7, CMP, TSH #### [facility] [address] [place] [address] Dr. Jorge Glaser LYMPH # 2.3 103/ul Normal 1.2-3.8 [facility] Comment on above: Performed By: #### L IPID, T7, CMP, TSH #### [facility] [address] [place] [address] Dr. Jorge Glaser Lymphocytes/100 WBC (Bld) 26.9 % Normal 20.5-60.0 [facility] Comment on above: Performed By: #### L IPID, T7, CMP, TSH #### [facility] [address] [place] [address] Dr. Jorge Glaser MANUAL DIFF REQ NO Normal [facility] Comment on above: Performed By: #### L IPID, T7, CMP, TSH #### [facility] [address] [place] [address] Dr. Jorge Glaser MCH (RBC) [Entitic mass] 29.4 pg Normal 26.7-34.0 [facility] Comment on above: Performed By: #### L IPID, T7, CMP, TSH #### [facility] [address] [place] [address] Dr. Jorge Glaser MCHC (RBC) [Mass/Vol] 32.8 g/dL Normal 29.9-35.2 [facility] Comment on above: Performed By: #### L IPID, T7, CMP, TSH #### [facility] [address] [place] [address] Dr. Jorge Glaser MCV (RBC) [Entitic vol] 89.7 fL Normal 81.0-99.0 [facility] Comment on above: Performed By: #### L IPID, T7, CMP, TSH #### [facility] [address] [place] [address] Dr. Jorge Glaser MONO # 0.8 103/ul Normal 0.3-0.8 [facility] Comment on above: Performed By: #### L IPID, T7, CMP, TSH #### [facility] [address] [place] [address] Dr. Jorge Glaser Monocytes/100 WBC (Bld) 9.1 % Normal 1.7-12.0 [facility] Comment on above: Performed By: #### L IPID, T7, CMP, TSH #### [facility] [address] [place] [address] Dr. Jorge Glaser NEUT # 5.1 103/ul Normal 1.4-6.5 [facility] Comment on above: Performed By: #### L IPID, T7, CMP, TSH #### [facility] [address] [place] [address] Dr. Jorge Glaser Neutrophils/100 WBC (Bld) 58.1 % Normal 43.0-75.0 [facility] Comment on above: Performed By: #### L IPID, T7, CMP, TSH #### [facility] [address] [address] [address] Jorge Glaser Platelet mean volume (Bld) [Entitic vol] 8.8 fL Critically low 9.5-13.5 [facility] Comment on above: Performed By: #### L IPID, T7, CMP, TSH #### [facility] [address] [address] [address] Jorge Glaser PLT 158 103/ul Normal 150-450 [facility] Comment on above: Performed By: #### L IPID, T7, CMP, TSH #### [facility] [address] [address] [address] Jorge Glaser RBC 4.35 106/ul Normal 4.20-5.40 [facility] Comment on above: Performed By: #### L IPID, T7, CMP, TSH #### [facility] [address] [place] [address] Dr. Jorge Glaser WBC 8.7 103/ul Normal 4.0-11.0 [facility] Comment on above: Performed By: #### L IPID, T7, CMP, TSH #### [facility] [address] [place] [address] Dr. Jorge Glaser FREE THYROXINE INDEX T7on FTI 2.15 Normal 1.30-4.50 [facility] Comment on above: Performed By: #### L IPID, T7, CMP, TSH #### [facility] [address] [place] [address] Dr. Jorge Glaser T3U 33.0 % Normal 30.0-39.0 [facility] Comment on above: Performed By: #### L IPID, T7, CMP, TSH #### [facility] [address] [address] [address] Jorge Glaser T4 [Mass/Vol] 6.50 ug/dL Normal 4.80-13.90 [facility] Comment on above: Performed By: #### L IPID, T7, CMP, TSH #### [facility] [address] [address] [address] Jorge Glaser GLYCOHEMOGLOBIN A1Con 2022 ADA RECOMMENDATION SEE BELOW Normal [facility] Comment on above: Result Comment: ADA RECOMMENDED LIMIT 4.0 - 6.0 ADA THERAPEUTIC TARGET < 7.0 ACTION SUGGESTED > 7.0 Performed By: #### A 1C #### [facility] [address] [address] [address] Jorge Glaser Glucose [Mass/Vol] 137 mg/dL Normal [facility] Comment on above: Performed By: #### A 1C #### [facility] [address] [address] [address] Jorge Glaser HbA1c (Bld) [Mass fraction] 6.4 % Critically high 4.5-6.2 [facility] Comment on above: Performed By: #### A 1C #### [facility] [address] [place] [address] Dr. Jorge Glaser IRONon 09-01-2022 Iron [Mass/Vol] 58.0 ug/dL Normal 50.0-170.0 [facility] Comment on above: Performed By: #### I DAVID #### [facility] [address] [place] [address] Dr. Jorge Glaser LIPID PROFILEon 09-01-2022 CHOL-HDL RATIO NORM SEE BELOW Normal [facility] Comment on above: Result Comment: 3.3 - 4.4 LOW RISK 4.4 - 7.1 AVERAGE RISK 7.1 - 11.0 MODERATE RISK >11.0 HIGH RISK Performed By: #### L IPID, T7, CMP, TSH #### [facility] [address] [address] [address] Jorge Glaser Cholesterol [Mass/Vol] 128 mg/dL Normal <=200 [facility] Comment on above: Performed By: #### L IPID, T7, CMP, TSH #### [facility] [address] [place] [address] Dr. Jorge Glaser Cholesterol in HDL [Mass/Vol] 61 mg/dL Critically high 40-60 [facility] Comment on above: Performed By: #### L IPID, T7, CMP, TSH #### [facility] [address] [address] [address] Jorge Glaser Cholesterol in LDL [Mass/Vol] 49.0 mg/dL Normal [facility] Comment on above: Performed By: #### L IPID, T7, CMP, TSH #### [facility] [address] [address] [address] Jorge Glaser Cholesterol.total/ Cholesterol in HDL [Mass ratio] 2.1 {ratio} Normal [facility] Comment on above: Performed By: #### L IPID, T7, CMP, TSH #### [facility] [address] [address] [address] Jorge Glaser HDL NORMAL > or = 60 mg/dl - LO W CARDIOVASCULAR RISK <40 mg/dl - HIGH CARDIOVASCULAR RISK Normal [facility] Comment on above: Performed By: #### L IPID, T7, CMP, TSH #### [facility] [address] [address] [address] Jorge Glaser LDL CALC NORMAL SEE BELOW Normal [facility] Comment on above: Result Comment: <100 mg/dl OPTIMAL 100 - 129 mg/dl NEAR OR ABOVE OPTIMAL 130 - 159 mg/dl BORDERLINE HIGH 160 - 189 mg/dl HIGH >190 mg/dl VERY HIGH Performed By: #### L IPID, T7, CMP, TSH #### [facility] [address] [address] [address] Jorge Glaser Triglyceride [Mass/Vol] 90 mg/dL Normal <=150 [facility] Comment on above: Performed By: #### L IPID, T7, CMP, TSH #### [facility] [address] [address] [address] Jorge Glaser VLDL CALC 18.0 mg/dL Normal [facility] Comment on above: Performed By: #### L IPID, T7, CMP, TSH #### [facility] [address] [address] [address] Jorge Glaser PROF 14(COMP METB)on 023 Albumin [Mass/Vol] 3.5 g/dL Normal 3.4-5.0 [facility] Comment on above: Performed By: #### L IPID, T7, CMP, TSH #### [facility] [address] [address] [address] Jorge Glaser Albumin/Globulin [Mass ratio] 1.1 {ratio} Normal [facility] Comment on above: Performed By: #### L IPID, T7, CMP, TSH #### [facility] [address] [address] [address] Jorge Glaser ALP [Catalytic activity/Vol] 42 U/L Critically low 46-116 [facility] Comment on above: Performed By: #### L IPID, T7, CMP, TSH #### [facility] [address] [address] [address] Jorge Glsaer ALT [Catalytic activity/Vol] 23 U/L Normal 14-59 [facility] Comment on above: Performed By: #### L IPID, T7, CMP, TSH #### [facility] [address] [place] [address] Dr. Jorge Glaser Anion gap [Moles/Vol] 10.0 mmol/L Normal [facility] Comment on above: Performed By: #### L IPID, T7, CMP, TSH #### [facility] [address] [address] [address] Jorge Glaser AST [Catalytic activity/Vol] 21 U/L Normal 15-37 [facility] Comment on above: Performed By: #### L IPID, T7, CMP, TSH #### [facility] [address] [address] [address] Jorge Glaser Bilirubin [Mass/Vol] 0.5 mg/dL Normal 0.2-1.0 [facility] Comment on above: Performed By: #### L IPID, T7, CMP, TSH #### [facility] [address] [address] [address] Jorge Glaser Calcium [Mass/Vol] 9.2 mg/dL Normal 8.5-10.1 [facility] Comment on above: Performed By: #### L IPID, T7, CMP, TSH #### [facility] [address] [address] [address] Jorge Glaser Chloride [Moles/Vol] 99 mmol/L Normal 98-107 [facility] Comment on above: Performed By: #### L IPID, T7, CMP, TSH #### [facility] [address] [address] [address] Jorge Glaser CO2 [Moles/Vol] 32.2 mmol/L Critically high 21.0-32.0 [facility] Comment on above: Performed By: #### L IPID, T7, CMP, TSH #### [facility] [address] [place] [address] Dr. Jorge Glaser Creatinine [Mass/Vol] 0.78 mg/dL Normal 0.55-1.02 [facility] Comment on above: Performed By: #### L IPID, T7, CMP, TSH #### [facility] [address] [place] [address] Dr. Jorge Glaser EGFR-AF TAJIK >60 Normal >=60 [facility] Comment on above: Performed By: #### L IPID, T7, CMP, TSH #### [facility] [address] [place] [address] Dr. Jorge Glaser EGFR-NON AF TAJIK >60 Normal >=60 [facility] Comment on above: Performed By: #### L IPID, T7, CMP, TSH #### [facility] [address] [place] [address] Dr. Jorge Glaser Globulin (S) [Mass/Vol] 3.2 g/dL Normal [facility] Comment on above: Performed By: #### L IPID, T7, CMP, TSH #### [facility] [address] [address] [address] Jorge Glaser Glucose [Mass/Vol] 100 mg/dL Normal 74-106 [facility] Comment on above: Performed By: #### L IPID, T7, CMP, TSH #### [facility] [address] [address] [address] Jorge Glaser Potassium [Moles/Vol] 3.2 mmol/L Critically low 3.5-5.1 [facility] Comment on above: Performed By: #### L IPID, T7, CMP, TSH #### [facility] [address] [address] [address] Jorge Glaser Protein [Mass/Vol] 6.7 g/dL Normal 6.4-8.2 [facility] Comment on above: Performed By: #### L IPID, T7, CMP, TSH #### [facility] [address] [address] [address] Jorge Glaser Sodium [Moles/Vol] 138 mmol/L Normal 136-145 [facility] Comment on above: Performed By: #### L IPID, T7, CMP, TSH #### [facility] [address] [address] [address] Jorge Glaser Urea nitrogen [Mass/Vol] 17.0 mg/dL Normal 7.0-18.0 [facility] Comment on above: Performed By: #### L IPID, T7, CMP, TSH #### [facility] [address] [address] [address] Jorge Glaser Urea nitrogen/Creatinin e [Mass ratio] 21.8 mg/mg Normal [facility] Comment on above: Performed By: #### L IPID, T7, CMP, TSH #### [facility] [address] [address] [address] Jorge Glaser TSHon 09-01-2022 TSH 4.483 uIU/mL Critically high 0.358-3.740 [facility] Comment on above: Performed By: #### L IPID, T7, CMP, TSH #### [facility] [address] [place] [address] Dr. Jorge Glaser XR DEXA BONE DENSITYon [...] KD DALY Date: 2022-08-27 16:23 Normal [facility] CBC AUTO DIFFon 05-22-2022 BASO # 0.1 103/ul Normal 0.0-0.1 [facility] Comment on above: Performed By: #### L IPID, T7, CMP, TSH #### [facility] [address] [place] [address] Dr. Jorge Glaser Basophils/100 WBC (Bld) 0.5 % Normal 0.2-2.0 [facility] Comment on above: Performed By: #### L IPID, T7, CMP, TSH #### [facility] [address] [place] [address] Dr. Jorge Glaser EO # 0.2 103/ul Normal 0.0-0.7 [facility] Comment on above: Performed By: #### L IPID, T7, CMP, TSH #### [facility] [address] [place] [address] Dr. Jorge Glaser Eosinophils/100 WBC (Bld) 2.0 % Normal 0.9-7.0 [facility] Comment on above: Performed By: #### L IPID, T7, CMP, TSH #### [facility] [address] [place] [address] Dr. Jorge Glaser Erythrocyte distribution width (RBC) [Ratio] 14.1 % Normal 11.0-15.0 [facility] Comment on above: Performed By: #### L IPID, T7, CMP, TSH #### [facility] [address] [place] [address] Dr. Jorge Glaser Hematocrit (Bld) [Volume fraction] 42.2 % Normal 36.0-48.0 [facility] Comment on above: Performed By: #### L IPID, T7, CMP, TSH #### [facility] [address] [place] [address] Dr. Jorge Glaser Hemoglobin (Bld) [Mass/Vol] 14.2 g/dL Normal 12.0-16.0 [facility] Comment on above: Performed By: #### L IPID, T7, CMP, TSH #### [facility] [address] [address] [address] Jorge Glaser IG # 0.08 10e3/ul Critically high 0.00-0.03 [facility] Comment on above: Performed By: #### L IPID, T7, CMP, TSH #### [facility] [address] [place] [address] Dr. Jorge Glaser IG % 0.8 % Critically high 0.0-0.5 [facility] Comment on above: Performed By: #### L IPID, T7, CMP, TSH #### [facility] [address] [place] [address] Dr. Jorge Glaser LYMPH # 1.2 103/ul Normal 1.2-3.8 [facility] Comment on above: Performed By: #### L IPID, T7, CMP, TSH #### [facility] [address] [place] [address] Dr. Jorge Glaser Lymphocytes/100 WBC (Bld) 11.9 % Critically low 20.5-60.0 [facility] Comment on above: Performed By: #### L IPID, T7, CMP, TSH #### [facility] [address] [place] [address] Dr. Jorge Glaser MANUAL DIFF REQ NO Normal [facility] Comment on above: Performed By: #### L IPID, T7, CMP, TSH #### [facility] [address] [place] [address] Dr. Jorge Glaser MCH (RBC) [Entitic mass] 30.8 pg Normal 26.7-34.0 [facility] Comment on above: Performed By: #### L IPID, T7, CMP, TSH #### [facility] [address] [place] [address] Dr. Jorge Glaser MCHC (RBC) [Mass/Vol] 33.6 g/dL Normal 29.9-35.2 [facility] Comment on above: Performed By: #### L IPID, T7, CMP, TSH #### [facility] [address] [address] [address] Jorge Glaser MCV (RBC) [Entitic vol] 91.5 fL Normal 81.0-99.0 [facility] Comment on above: Performed By: #### L IPID, T7, CMP, TSH #### [facility] [address] [place] [address] Dr. Jorge Glaser MONO # 0.5 103/ul Normal 0.3-0.8 [facility] Comment on above: Performed By: #### L IPID, T7, CMP, TSH #### [facility] [address] [place] [address] Dr. Jorge Glaser Monocytes/100 WBC (Bld) 5.0 % Normal 1.7-12.0 [facility] Comment on above: Performed By: #### L IPID, T7, CMP, TSH #### [facility] [address] [place] [address] Dr. Jorge Glaser NEUT # 8.3 103/ul Critically high 1.4-6.5 [facility] Comment on above: Performed By: #### L IPID, T7, CMP, TSH #### [facility] [address] [place] [address] Dr. Jorge Glaser Neutrophils/100 WBC (Bld) 79.8 % Critically high 43.0-75.0 [facility] Comment on above: Performed By: #### L IPID, T7, CMP, TSH #### [facility] [address] [place] [address] Dr. Jorge Glaser Platelet mean volume (Bld) [Entitic vol] 9.0 fL Critically low 9.5-13.5 [facility] Comment on above: Performed By: #### L IPID, T7, CMP, TSH #### [facility] [address] [place] [address] Dr. Jorge Glaser PLT 154 103/ul Normal 150-450 [facility] Comment on above: Performed By: #### L IPID, T7, CMP, TSH #### [facility] [address] [address] [address] Jorge Glaser RBC 4.61 106/ul Normal 4.20-5.40 [facility] Comment on above: Performed By: #### L IPID, T7, CMP, TSH #### [facility] [address] [address] [address] Jorge Glaser WBC 10.4 103/ul Normal 4.0-11.0 [facility] Comment on above: Performed By: #### L IPID, T7, CMP, TSH #### [facility] [address] [address] [address] Jorge Glaser PROF CHEM 8 (BAS METB)on Anion gap [Moles/Vol] 9.0 mmol/L Normal [facility] Comment on above: Performed By: #### L IPID, T7, CMP, TSH #### [facility] [address] [place] [address] Dr. Jorge Glaser Calcium [Mass/Vol] 10.0 mg/dL Normal 8.5-10.1 [facility] Comment on above: Performed By: #### L IPID, T7, CMP, TSH #### [facility] [address] [place] [address] Dr. Jorge Glaser Chloride [Moles/Vol] 94 mmol/L Critically low 98-107 [facility] Comment on above: Performed By: #### L IPID, T7, CMP, TSH #### [facility] [address] [address] [address] Jorge Glaser CO2 [Moles/Vol] 31.4 mmol/L Normal 21.0-32.0 [facility] Comment on above: Performed By: #### L IPID, T7, CMP, TSH #### [facility] [address] [place] [address] Dr. Jorge Glaser Creatinine [Mass/Vol] 0.69 mg/dL Normal 0.55-1.02 [facility] Comment on above: Performed By: #### L IPID, T7, CMP, TSH #### [facility] [address] [address] [address] Jorge Glaser EGFR-AF TAJIK >60 Normal >=60 [facility] Comment on above: Performed By: #### L IPID, T7, CMP, TSH #### [facility] [address] [address] [address] Jorge Glaser EGFR-NON AF TAJIK >60 Normal >=60 [facility] Comment on above: Performed By: #### L IPID, T7, CMP, TSH #### [facility] [address] [address] [address] Jorge Glaser Glucose [Mass/Vol] 129 mg/dL Critically high 74-106 [facility] Comment on above: Performed By: #### L IPID, T7, CMP, TSH #### [facility] [address] [address] [address] Jorge Glaser Potassium [Moles/Vol] 3.4 mmol/L Critically low 3.5-5.1 [facility] Comment on above: Performed By: #### L IPID, T7, CMP, TSH #### [facility] [address] [address] [address] Jorge Glaser Sodium [Moles/Vol] 131 mmol/L Critically low 136-145 [facility] Comment on above: Performed By: #### L IPID, T7, CMP, TSH #### [facility] [address] [address] [address] Jorge Glaser Urea nitrogen [Mass/Vol] 17.0 mg/dL Normal 7.0-18.0 [facility] Comment on above: Performed By: #### L IPID, T7, CMP, TSH #### [facility] [address] [address] [address] Jorge Glaser Urea nitrogen/Creatinin e [Mass ratio] 24.6 mg/mg Normal [facility] Comment on above: Performed By: #### L IPID, T7, CMP, TSH #### [facility] [address] [address] [address] Jorge Glaser NM STRESS/REST MULTIon 03-22 NM STRESS/REST MULTI Patient: KAREN GIFFORD Exam Date: 03/22/2022 : 1935 Gender:F Ordering : DR VINCENZO PATEL . Admission #: [id number] Family : CHILANGO SANDOVAL [employer]BL[employer] Order #: [id number] CLICK HERE TO VIEW EXAM RADIOLOGY REPORT [...] Rachel MD on 03/23/2022 at 11:42 Normal [facility] Ambulatory Clinical Summaryo n 02-17-2021 Ambulatory Clinical Summary {[id number]}CD: [id number] Normal [facility] Historical Records Officeon 02-17-2021 Historical Records Office [id number]:127 Normal [facility] Physician Referralon 021 Physician Referral [id number]#[id number]:127 Normal [facility] Provider Letter FTon 11-[address] [facility] Vincenzo Patel, [address] [place] [address] [place] [address] Re: KAREN GIFFORD Date of : 1935 Thank you for your referral of Karen Gifford who was seen on consultation for sebaceous cyst left upper back on November 19, 2020. I have enclosed my consultation note for your review. I will be happy to follow Karen should her symptoms persist. Sincerely, Avtar Jones MD General Surgery Normal [facility] Ambulatory Clinical Summaryo n 11-19-2020 Ambulatory Clinical Summary {[id number]}CD: [id number] Normal [facility] General Surgery Office/Clini c Noteon 11-19-2020 [...] one recently removed form right forehead by Radio Division Captain. Review of Systems ROS - Provider Constitutional: [...] Avtar Woods if needed [address] [place] [address]- Additional Instructions: Patient Education Epidermal [...] mg= 1 tab(s), Oral, BID Dry Eye Richton Benefits, Oral, BID hydrALAZINE 50 mg Tab, [...] Tobacco Use:. 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 How is this treated? In many cases, [...] Follow these instructions at home: ? Take zgcc-bor-jqouavm and prescription medicines only as told by [...] mouth or through an injection. ? Take uups-aew-ubpvtmg and prescription medicines only as told by [...] 07/02/2005 Document Revised: 11/22/2019 Document Reviewed: 02/12/2019 [employer] Patient Education ? 2019 [employer] [facility] Physician Referralon 021 Physician Referral [id number]:127 [facility] Vital Signs Date Time Vital Sign Value Performing Clinician Low meyers 03-29-2024 13:57-0400 Body height 170.2 cm Kiko Barba [employer] Work Phone: [facility] 03-29-2024 13:57-0400 Body mass index (BMI) [Ratio] 21.61 kg/m2 Kiko Active-Semi Work Phone: [facility] 03-29-2024 13:57-0400 Body weight 62.6 kg Kiko Barba [employer] Work Phone: [facility] 03-29-2024 13:57-0400 Diastolic blood pressure 68 mm[Hg] Kiko Barba [employer] Work Phone: [facility] 03-29-2024 13:57-0400 Heart rate 93 /min Kiko Barba CNP Work Phone: [facility] 03-29-2024 13:57-0400 Systolic blood pressure 114 mm[Hg] Kiko Barba CNP Work Phone: [facility] 06-28-2023 13:37-0500 Body height 170.2 cm Jay Munoz MD Work Phone: [facility] 06-28-2023 13:37-0500 Diastolic blood pressure 60 mm[Hg] Jay Munoz MD Work Phone: [facility] 06-28-2023 13:37-0500 Heart rate 77 /min Jay Munoz MD Work Phone: [facility] 06-28-2023 13:37-0500 Systolic blood pressure 90 mm[Hg] Jay Munoz MD Work Phone: [facility] Encounters Encounter Date Encounter Type Care Provider Facility Start: 04-06-2024 End: 04-06-2024 ambulatory [facility] Start: 03-29-2024 End: 04-02-2024 [facility] Start: 03-29-2024 End: 03-29-2024 Office outpatient visit 40 minutes Kiko Stevenson Jameson WALKER Work Phone: [facility] Comment on above: Persistent atrial fi brillation (HCC) (Primary Dx); PAF (paroxysmal atrial fibrillation) (HCC); SSS (sick sinus syndrome) (HCC); Presence of cardiac pacemaker; Pericardial effusion; Pleural effusion Start: 03-29-2024 End: 03-30-2024 ambulatory [facility] Start: 03-28-2024 End: 03-28-2024 ambulatory [facility] Start: 03-27-2024 End: 03-27-2024 Orders Only Kiko Barba CNP Work Phone: [facility] Comment on above: PAF (paroxysmal atri al fibrillation) (HCC) (Primary Dx) Start: 03-14-2024 Evaluation and manag ement of [facility] Start: 03-14-2024 Evaluation and manag ement of inpatient [facility] Start: 03-13-2024 Evaluation and manag ement of inpatient [facility] Start: 03-12-2024 Evaluation and manag ement of inpatient [facility] Start: 03-10-2024 Evaluation and manag ement of inpatient [facility] Start: 03-09-2024 Evaluation and manag ement of inpatient [facility] Start: 03-09-2024 Evaluation and manag ement of inpatient [facility] Start: 03-09-2024 Evaluation and manag ement of inpatient [facility] Start: 03-08-2024 End: 03-15-2024 [facility]: [facility]-02-[facility]24 Orders Only Jay Munoz MD Work Phone: [facility] Comment on above: PAF (paroxysmal atri al fibrillation) (HCC) (Primary Dx); Presence of cardiac pacemaker Start: 01-02-2024 End: 01-02-2024 ambulatory [facility] Not Available Start: 12-01-2023 ambulatory ABIMBOLA CHACON [facility] Start: 12-01-2023 End: 12-01-2023 Office outpatient visit 15 minutes Abimbola Chacon MD Work Phone: [facility] Comment on above: Primary open-angle g laucoma, bilateral, indeterminate stage (Primary Dx) Start: 11-23-2023 End: 12-08-2023 ambulatory [facility] Start: 06-28-2023 End: 06-29-2023 ambulatory [facility] Start: 06-28-2023 End: 06-28-2023 Office outpatient new 60 minutes Jay Munoz MD Work Phone: [facility] Comment on above: PAF (paroxysmal atri al fibrillation) (HCC) (Primary Dx); Presence of cardiac pacemaker; SSS (sick sinus syndrome) (HCC); Hypertension, unspecified type; Heart failure with preserved ejection fraction, unspecified HF chronicity (HCC) Start: 06-28-2023 End: 06-29-2023 ambulatory JAY MUNOZ [facility] Ambulatory Start: 06-23-2023 Orders Only Jay Munoz MD Work Phone: [facility] Comment on above: PAF (paroxysmal atri al fibrillation) (HCC) (Primary Dx) Start: 06-03-2023 End: 06-03-2023 ambulatory NADEEM ELROY [facility] Start: 05-31-2023 ambulatory ABIMBOLA CHACON Facilit y:[facility] Start: 05-31-2023 End: 05-31-2023 Office outpatient new 45 minutes Abimbola Chacon MD Work Phone: [facility] [place] Comment on above: Primary open-angle g laucoma, bilateral, indeterminate stage (Primary Dx); PCO (posterior capsular opacification), left Start: 05-06-2023 End: 05-06-2023 ambulatory [facility] Start: 04-12-2023 End: 04-12-2023 ambulatory [facility] Start: 03-09-2023 End: 03-10-2023 ambulatory VINCENZO [facility] Start: 12-27-2022 End: 12-28-2022 ambulatory CHILANGO [...] End: 08-28-[address] VINCENZO PATEL . Facility: Start: 08-27-2022 End: 09-11-[address] VINCENZO PATEL . Facility:[facility] Start: 05-22-2022 End: 05-22-[address] VINCENZO PATEL . Facility:[facility] Start: 03-22-2022 End: 03-23-[address] VINCENZO PATEL . Facility: Procedures Date Procedure Procedure Detail Performing Clinician Start: 03-29-2024 Ecg routine ecg w/le ast 12 lds w/i&r Kiko Gamino Jameson WALKER Work Phone: Start: 12-01-2023 Visual field xm [...] Activity Detail Author Start: 06-09-[address] [facility] Start: 03-13-2025 End: 03-13-2025 ambulatory 03/13/2025 1:15 PM EDT Device Check OP [facility] [address] [place] [phone] [facility] Start: 07-02-2024 End: 07-02-2024 ambulatory 07/02/2024 3:30 PM EST Device Check OP [facility] [address] [place] [phone] [facility] Start: 06-28-2024 CLASS III : OFFICE VISIT CLASS III : OFFICE VISIT [facility] Start: 06-04-2024 End: 06-04-2024 Patient encounter procedure 06/04/2024 3:30 PM EDT Office Visit [facility] [place] [address] [place] [phone] Abimbola Chacon MD [address] [place] [phone] [facility] [place] Start: 04-15-2024 Influenza vaccination Influenza Vacc ine (#1) [facility] Start: 03-29-2024 End: 03-29-2024 Patient encounter procedure 03/29/2024 2:10 PM EDT Office Visit [facility] [address] [place] [phone] Kiko Barba CNP [address] [place] [address] [facility] Start: 03-27-2024 End: 03-27-2025 12 lead ECG ECG 12 lead ECG Routine PAF (paroxysmal atrial fibrillation) ([facility]) Expected: 03/27/2024, Expires: 03/27/2025 [facility] Work Phone: Comment on above: Expected: 03/27/2024 , Expires: 03/27/2025 Start: 03-14-2024 End: 03-14-2024 Patient encounter procedure [facility] Start: 02-21-2024 End: 02-21-2024 Patient encounter procedure 02/21/2024 7:00 AM EDT Appointment [facility] [address] [place] [phone] Simone Campoverde MD [address] [place] [address] [facility] Start: 12-27-2023 End: 12-27-2023 Patient encounter procedure 12/27/2023 1:50 PM EDT Office Visit [facility] [address] [place] [phone] Jay Munoz MD [address] [place] [address] [facility] Start: 12-01-2023 End: 12-01-2023 Patient encounter procedure 12/01/2023 10:30 AM EDT Office Visit [facility] [place] [address] [place] [phone] Abimbola Chacon MD [address] [place] [phone] [facility] [place] Start: 09-26-2023 COVID-19 Vaccine ( season) COVID-19 Vaccine () [facility] Start: 06-28-2023 End: 06-28-2023 Patient encounter procedure 06/28/2023 1:00 PM EST Office Visit [facility] [address] [place] [phone] Jay Munoz MD [address] [place] [address] [facility] Start: 04-15-2023 COVID-19 VACCINE ( season) COVID-19 VACCINE ( season) [facility] Start: 04-15-2023 Influenza vaccination Sequenti al Influenza Vaccine (#1) [facility] Start: 01-23-2015 Screening for malign ant neoplasm of breast MAMMOGRAM SCREENING DISCUSSION [facility] Start: 2002 Fall risk assessment Falls Risk Asse ssment [facility] Start: [address] [facility] Start: 2002 Pneumococcal Vaccine : Age 65+ (1 - PCV) Pneumococcal Vaccine: Age 65+ (1 - PCV) [facility] Start: 2002 Pneumococcal Vaccine : Age 65+ (1 of 1 - PCV) Pneumococcal Vaccine: Age 65+ (1 of 1 - PCV) [facility] Start: 1987 Administration of he rpes zoster vaccine Zoster Vaccines (1 of 2) [facility] Start: 1987 Zoster vaccine hzv l trace for subcutaneous use ZOSTER (SHINGLES) VACCINE (1 of 2) [facility] Start: 1982 Screening for malign ant neoplasm of colon COLORECTAL CANCER SCREENING DISCUSSION [facility] Start: 1958 Screening for malign ant neoplasm of cervix CERVICAL CANCER SCREENING DISCUSSION [facility] Start: 1949 Depression screening using PHQ-9 (Patient Health Questionnaire 9) score [facility] Start: 1943 Pneumococcal Vaccine : Age 65+ (1 of 2 - PCV) Pneumococcal Vaccine: Age 65+ (1 of 2 - PCV) [facility] Start: 1940 History and physical examination, annual for health maintenance Wellness Visit [facility] Start: 1940 Medicare Wellness Visit Medicare [facility] lness Visit [facility] Start: 1937 Alanine aminotransfe rase measurement CLASS III : ALT [facility] Start: 1937 CLASS III : AST CLASS III : AST [facility] Start: 1937 CLASS III : CXR CLASS III : CXR [facility] Start: 1937 CLASS III : EKG CLASS III : EKG [facility] Start: 1937 CLASS III : PFT CLASS III : PFT [facility] Start: 1937 Potassium [Moles/vol ume] in Serum or Plasma POTASSIUM [facility] Start: [address] [facility] Start: 1937 Thyroid stimulating hormone measurement [facility] End: 06-23-2024 12 lead ECG ECG 12 lead ECG Routine PAF (paroxysmal atrial fibrillation) (HCC) 1 Occurrences starting 06/23/2023 until 06/23/2024 [facility] Work Phone: Comment on above: 1 Occurrences starti ng 06/23/2023 until 06/23/2024 End: 02-01-2025 12 lead ECG ECG 12 lead ECG Routine PAF (paroxysmal atrial fibrillation) (HCC) Presence of cardiac pacemaker 4 Occurrences starting 02/02/2024 until 02/01/2025 [facility] Work Phone: Comment on above: 4 Occurrences starti ng 02/02/2024 until 02/01/2025 12 lead ECG ECG 12 lead ECG Routine PAF (paroxysmal atrial fibrillation) (HCC) 03/29/2024 1:48 PM EDT [facility] Work Phone: Ophthalmic us dx [facility] pachymetry uni/bi PACHYMETRY-OU HI Charge Routine Primary open-angle glaucoma, bilateral, indeterminate stage Ordered: 05/31/2023 [facility] Comment on above: Ordered: 05/31/2023 Immunizations Immunization Date Immunization Notes Care Provider Andreia lagos 05-26-2023 influenza virus vacc ine, unspecified formulation Kiko Jameson [facility] Work Phone: [facility] Payers Date Payer Category Payer Private Health Insurance LISSA BOGGS OTHER AFTER MEDICARE [id number] 2016-Present [phone] [address] [address] [place] [address] [id number] 2002 Medicare [id number] 1959 Medicare [id number] 1959 Private Health Insurance [id number] 1937 Unknown [id number] 2.16.840.1.729491.3.579.2 .593 1937 Unknown [id number] 2.16.840.1.624083.3.579.2 .593 1937 Unknown [id number] 2.16.840.1.545171.3.579.2 .593 1937 Unknown [id number] 2.16.840.1.703444.3.579.2 .593 1937 Unknown [id number] 2.16.840.1.547656.3.579.2 .593 1937 Unknown [id number] 2.16.840.1.582524.3.579.2 .593 1937 Unknown [id number] 2.16.840.1.755270.3.579.2 .593 1937 Unknown [id number] 2.16.840.1.865380.3.579.2 .593 1937 Unknown [id number] 2.16.840.1.239838.3.579.2 .593 1937 Unknown [id number] 2.16.840.1.472346.3.579.2 .593 1937 Unknown [id number] 2.16.840.1.048631.3.579.2 .173 1937 Unknown [id number] 2.16.840.1.084395.3.579.2 .594 1937 Unknown [id number] 2.16.840.1.470317.3.579.2 .594 1937 Unknown [id number] 2.16.840.1.693054.3.579.2 .900 1937 Unknown [id number] 2.16.840.1.692652.3.579.2 .900 1937 Unknown [id number] 2.16.840.1.262545.3.579.2 .1259 1937 Unknown [id number] 2.16.840.1.267133.3.579.2 .903 1937 Unknown [id number] 2.16.840.1.173940.3.579.2 .903 1937 Unknown [id number] 2.16.840.1.429940.3.579.2 .903 Social History Date Type Detail Facility Start: 05-31-2023 End: 06-28-2023 Tobacco smoking status NHIS Never smoked tobacco [facility] Start: 05-31-2023 End: 06-28-2023 Tobacco use and exposure Smokeless tobacco non-user [facility] Start: 05-31-2023 End: 12-01-2023 Alcohol intake Ex-drinker (finding) [facility] Start: 05-31-2023 End: 06-28-2023 [address] [facility] Start: 05-31-2023 End: 06-28-[address] [facility] Start: 1935 Sex Assigned At Not on file O [facility] Tobacco smoking status NHIS Tobacco smoking consumption unknown [facility] Start: 06-28-2023 End: 03-29-2024 Alcohol intake Lifetime non-drinker (finding) [facility] Medical Equipment Procedure Code Equipment Code Equipment Origin al Text Equipment Identifier Dates Acclarent [id number] Edhoratio 8 Chrissy [id number] Start: 05-12-2022 Acclarent 377 17 7 Solia S 53 [id number] Start: 05-12-2022 Acclarent 377 17 6 Solia S 45 [id number] Start: 05-12-2022 Clinical Notes 02-17-2021 to 04-06-2024 Patient Kiko Jansen CNP - 03/29/2024 2:10 PM EDCrys Holt - 12/01/2023 10:30 AM Oneil Chacon MD - 12/01/2023 10:30 AM Jay Tripp MD - 06/28/2023 1:00 PM EST Note Date & Type Note Facility 04-06-2024 Note [facility] 03-29-2024 Instructions Zee Hollis MA - 03/29/2024 2:19 PM EDT We will see you back in the office: as needed If you need to cancel or reschedule an appointment please call [phone]. If you have any questions please call SHERRY Burciaga directly at [phone]. documented in this encounter [facility] 03-29-2024 History of Present illness Narrative ELECTROPHYSIOLOGY Clinic Established Follow Up Visit Patient Name: Karen Gifford MR #: [id number] : 1935 Physicians: Vincenzo Patel MD (Family); No ref. provider found (Referring) Primary Mill Attendant: Dr. Jay Munoz Assessment and Plan: ASSESSMENT: Recent hospitalization for shortness of breath -found with large pericardial effusion status post pericardiocentesis -Found with large pleural effusion status post bilateral thoracentesis -Perhaps malignant? Persistent atrial fibrillation -[id number]: 5 on Xarelto -Rate control strategy previously [...] She already followed up with cardiology at [facility] and is due to follow-up with pulmonology soon to address her pleural effusions and perhaps discuss malignancy etiology. She is interested in consolidating care at [facility] which would be reasonable to keep her close to home. All of our records are available through care everywhere and able to be accessed at [facility]. We will be available for any as needed follow-ups if the need were to arise. FOLLOW UP IN: As needed Kiko Barba MS, THERMAL MOLDER-WATER SKI ASSEMBLER, AGACNP-BC [facility] Office Inpatient: Please contact me through secure chat To expedite correspondence this note was generated by [employer] voice recognition software. Some grammatical or spelling [...] Strain: Low Risk (03/08/2024) Received from [facility] Overall Financial Resource Strain (CARDIA) Difficulty of Paying Living Expenses: Not hard at all Food Insecurity: No Food Insecurity (03/08/2024) Received from [facility] Hunger Vital Sign Within the past 12 months, you worried that your food would run out before you got the money to buy more.: Never true Transportation Needs: No Transportation Needs (03/08/2024) Received from [facility] Transportation In the past 12 months, has lack of transportation kept you from medical appointments or from getting medications?: No Housing Stability: Low Risk (03/08/2024) Received from [facility] Housing Stability Vital Sign In the last 12 months, was there a time when you did not have a steady place to sleep or slept in a fdc (including now)?: No Allergies: Calcium channel blocking [...] 03/29/24 2:23 PM documented in this encounter [facility] 03-29-2024 Note ELECTROPHYSIOLOGY Cl inic Established Follow Up Visit Patient Name: Karen Gifford MR #: [id number] : 1935 Physicians: Vincenzo Patel MD (Family); No ref. provider found (Referring) Primary Mill Attendant: Dr. Jay Munoz Assessment and Plan: ASSESSMENT: Recent hospitalization for shortness of breath -found with large pericardial effusion status post pericardiocentesis -Found with large pleural effusion status post bilateral thoracentesis -Perhaps malignant? Persistent atrial fibrillation -[id number]-JWFx: 5 on Xarelto -Rate control strategy previously [...] She already followed up with cardiology at [facility] and is due to follow-up with pulmonology soon to address her pleural effusions and perhaps discuss malignancy etiology. She is interested in consolidating care at [facility] which would be reasonable to keep her close to home. All of our records are available through care everywhere and able to be accessed at [facility]. We will be available for any as needed follow-ups if the need were to arise. FOLLOW UP IN: As needed Kiko Barba, MS, THERMAL MOLDER-WATER SKI ASSEMBLER, AGACNP-BC [facility] Office Inpatient: Please contact me through secure chat To expedite correspondence this note was generated by [employer] voice recognition software. Some grammatical or spelling [...] follow-up. She is a patient of Dr. Scott.. Subjective: Doing well with no complaints Objective: [...] Strain: Low Risk (03/08/2024) Received from [facility] Overall Financial Resource Strain (CARDIA) Difficulty of Paying Living Expenses: Not hard at all Food Insecurity: No Food Insecurity (03/08/2024) Received from [facility] Hunger Vital Sign Within the past 12 months, you worried that your food would run out before you got the money to buy more.: Never true Transportation Needs: No Transportation Needs (03/08/2024) Received from [facility] Transportation In the past 12 months, has lack of transportation kept you from medical appointments or from getting medications?: No Housing Stability: Low Risk (03/08/2024) Received from [facility] Housing Stability Vital Sign In the last 12 months, was there a time when you did not have a steady place to sleep or slept in a fdc (including now)?: No Allergies: Calcium channel blocking [...] mouth daily w (more content not included)... [facility] 03-28-2024 Note [facility] 03-28-2024 Note Follow up steven pompa Pt had labs yesterday. Patient is taken both lipitor, zocor. Review of Systems Respiratory: Positive for shortness of breath. [facility] 03-15-2024 Note [facility] 03-15-2024 Note [facility] 03-15-2024 Note [facility] 03-14-2024 Note [facility] 03-14-2024 Note [facility] 03-14-2024 Note Satisfactory for soraya luation. Examination of the ThinPrep slide and cell block reveals benign mesothelial cells and chronic inflammation. [facility] Comment on above: Performed By: #### L AB13 ####[facility] [place] [address] 03-14-2024 Note [facility] 03-14-2024 Note [facility] 03-14-2024 Note [facility] 03-14-2024 Note [facility] 03-13-2024 Note Occupational Therapy Name: Karen Gifford Date of : 1935 Today's Date: 03/13/24 Pt is unable to be seen for therapy at this time secondary to bedrest until 1700 per nsg . Check No Charge Time attempted: 1434 [facility] 03-13-2024 Note [facility] 03-13-2024 Note [facility] 03-13-2024 Note Satisfactory for soraya luation. Examination of the ThinPrep slide and cell block reveals abundant acute inflammation and rare mesothelial cells. [facility] Comment on above: Performed By: #### L AB13 ####[facility] ([facility])[address] [place] [address] 03-13-2024 Note [facility] 03-12-2024 Note [facility] 03-12-2024 Note [facility] 03-12-2024 Note [facility] 03-12-2024 Note [facility] 03-11-2024 Note [facility] 03-11-2024 Note [facility] 03-10-2024 Note [facility] 03-10-2024 Note [facility] 03-10-2024 Note [facility] 03-09-2024 Note [facility] 03-09-2024 Note [facility] 12-01-2023 History of Present illness Narrative REASON [...] time was spent with patient performing the dialysis technician work of this visit. Referring Physician: [...] ROS: complete review of systems performed by dialysis technician, reviewed by me. OCT: baseline, good [...] resolved OS. documented in this encounter [facility] 06-28-2023 History of Present illness Narrative Electrophysiology Clinic Consult Heart [facility] 06/28/2023 Jay Munoz MD [address] [facility] [address] Patient: Karen Gifford Date of [...] her age, doing water walking at the [facility] for 30 minutes twice per week. [...] daily indefinitely in the setting of a [id number] score of 5. Sick sinus syndrome status [...] members, referring and/or communicating with other health healthcare interpreter, coordinating care, and documenting the above findings. documented in this encounter [facility] 06-28-2023 Instructions Janet Mendoza RN - 06/28/2023 12:44 PM EST Testing Ordered: None Medication Changes: Stop Amiodarone Lab Work Ordered: None To schedule any outpatient testing( if applicable) simply call [phone] and follow the prompts to schedule any outpatient testing. If you have any questions or concerns about today's visit please call Janet POWELL at [phone] documented in this encounter [facility] 06-03-2023 Note Stable Device interrogation q 6 months [facility] 06-03-2023 Note [facility] I-II, Currently pt is euvolemic without exacerbation Continue GDMT- continue bumex- Diuretic therapy Monitor daily weights, I&O, fluid restriction 1.5-2L/day, renal function and electrolytes [facility] 06-03-2023 Note Continue xarelto and amiodarone and atenolol [facility] 06-03-2023 Note [facility] 06-03-2023 Note [facility] 06-03-2023 Note [facility] 05-31-2023 History of Present illness Narrative REASON FOR VISIT aKren Gifford presents to clinic today for a New Patient visit. Chief Complaint New Patient; Glaucoma HISTORY OF PRESENT ILLNESS HPI Self Referred for Glaucoma eval Patient asked about problems with loss of vision, eye pain/irritation, redness and discharge. The patient denies all except for the following: pt wants to est with new Glc Doctor [facility] for about doctor from [place] gave pt 2 corneal abrasions. Last edited by Shanique Ndiaye on 05/31/2023 10:14 AM. Allergies, medications & history reviewed & updated by Shanique Ndiaye REVIEW OF SYSTEMS Review of Systems 20 minutes of face to face time was spent with patient performing the dialysis technician work of this visit. Referring Physician: [...] ROS: complete review of systems performed by dialysis technician, reviewed by me. OCT: baseline, good [...] emergencies after hours [facility] 03-22-2022 Note CARDIAC STRESS TEST [...] and reported in a separate dictation. [facility] 02-17-2021 Note Chief Complaint referral for [...] Mother. Mitral valve (more content not included)... [facility] Comment on above: Result Comment: Elec tronically Signed By: CAITLIN CORDON, Avtar Priest\Date and Time Signed: 02/17/21 14:39 EDT Evaluation note Diagnosis Primary open-angle glaucoma, bilateral, indeterminate stage- Primary PCO (posterior capsular opacification), left After-cataract, unspecified [facility] Diagnosis PAF (paroxysmal atrial fibrillation) (HCC)- Primary Atrial fibrillation [facility] Diagnosis PAF (paroxysmal atrial fibrillation) (HCC)- Primary Atrial fibrillation 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 SSS (sick sinus syndrome) ([facility]) Sinoatrial node dysfunction Hypertension, unspecified type Heart failure with preserved ejection fraction, unspecified HF chronicity ([facility]) [facility]* Diagnosis Primary open-angle glaucoma, bilateral, indeterminate stage- Primary [facility] [place] [facility] Diagnosis PAF (paroxysmal atrial fibrillation) (HCC)- Primary Atrial fibrillation 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 [facility]* Diagnosis PAF (paroxysmal atrial fibrillation) (HCC)- Primary Atrial fibrillation [facility]* Diagnosis Persistent atrial fibrillation (HCC)- Primary Atrial fibrillation PAF (paroxysmal atrial fibrillation) (HCC) Atrial fibrillation SSS (sick sinus syndrome) (HCC) Sinoatrial node dysfunction 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 Pericardial effusion Unspecified disease of pericardium Pleural effusion Unspecified pleural effusion documented in this encounter [facility] Summary Purpose Family History No Family History Records FoundNo Family History Records FoundNo Family History Records FoundNo Family History Records FoundNo Family History Records FoundNo Family History Records FoundNo Family History Records FoundNo Family History Records Found Advance Directives No Advanced Directives Records FoundDocuments on File Type Date Recorded Patient Capacitor Tester Expl anation Advance Directives and Livin g Will 06/28/2023 12:40 PM Documents on File Type Date Recorded Patient Capacitor Tester Expl anation Advance Directives and Livin g Will 06/28/2023 12:40 PM Reason for Referral Specialty Diagnoses / Procedures Referred By Contac t Referred To Contact Cardiology Diagnoses PAF (paroxysmal atrial fibrillation) (HCC) Procedures ECG 12 lead Jay Munoz MD [address] [place] [address] Referral ID Status Reason Start Date Expiration Date V isits Requested Visits Authorized [id number] Authorized 06/23/2023 06/22/2024 1 1 Specialty Diagnoses / Procedures Referred By Contac t Referred To Contact Cardiology Diagnoses PAF (paroxysmal atrial fibrillation) (HCC) Presence of cardiac pacemaker Procedures ECG 12 lead Jay Munoz MD [address] [facility] [address] [address] Referral ID Status Reason Start Date Expiration Date V isits Requested Visits Authorized [id number] Authorized 02/02/2024 02/01/2025 4 4 Specialty Diagnoses / Procedures Referred By Contac t Referred To Contact Cardiology Diagnoses PAF (paroxysmal atrial fibrillation) (HCC) Procedures ECG 12 lead Kiko Barba CNP [address] [facility] [address] [place] [address] Referral ID Status Reason Start Date Expiration Date V isits Requested Visits Authorized [id number] Authorized 03/27/2024 03/27/2025 1 1 Additional Source Comments INFORMATION SOURCE (unrecogn ized section and content) DATE CREATED AUTHOR 02/18/[address] [facility] DATE CREATED AUTHOR AUTHOR'S ORGANIZ ATION 12/28/2022 [facility] DATE CREATED AUTHOR AUTHOR'S ORGANIZ ATION 03/10/2023 [facility] DATE CREATED AUTHOR AUTHOR'S ORGANIZ ATION 12/02/2023 [facility] DATE CREATED AUTHOR AUTHOR'S ORGANIZ ATION 12/10/2023 [facility] DATE CREATED AUTHOR AUTHOR'S ORGANIZ ATION 01/04/2024 [facility] DATE CREATED AUTHOR AUTHOR'S ORGANIZ ATION 04/02/2024 [facility] DATE CREATED AUTHOR AUTHOR'S ORGANIZ ATION 04/08/2024 [facility] Reason for Visit (unrecogniz ed section and content) Reason Comments New Patient Glaucoma Reason Comments Follow-up Reason Comments Follow-up Hosp. F/u Care Teams (unrecognized sec tion and content) Hop Farmer Relationship Specialty Start Date End Date Vincenzo Patel MD [address] [place] [id number] PCP - General Family Medicine 05/31/23 Sean Redman DO [address] [place] [address] [place] [id number] Ophthalmology 05/31/23 Hop Farmer Relationship Specialty Start Date End Date Vincenzo Patel MD [address] [place] [address] PCP - General Family Medicine 06/15/23 Hop Farmer Relationship Specialty Start Date End Date Vincenzo Patel MD [address] [place] [address] PCP - General Family Medicine 06/15/23 Jay Munoz MD [address] [address] Cardiac Electrophysiology 06/28/23 Hop Farmer Relationship Specialty Start Date End Date Vincenzo Patel MD [address] [place] [address] PCP - General Family Medicine 06/15/23 Jay Munoz MD [address] [address] Cardiac Electrophysiology 06/28/23 Hop Farmer Relationship Specialty Start Date End Date Vincenzo Patel MD [address] [place] [address] PCP - General Family Medicine 06/15/23 Jay Munoz MD [address] [address] Cardiac Electrophysiology 06/28/23 Hop Farmer Relationship Specialty Start Date End Date Vincenzo Patel MD [address] [place] [address] PCP - General Family Medicine 06/15/23 Jay Munoz MD [address] [address] Cardiac Electrophysiology 06/28/23 FOR RECORDS PERTAINING TO [...] BE BASED ON THE PRIMARY CLINICAL RECORDS. [facility] [employer] [facility] provides no warranty or guarantee of the accuracy or completeness of information in this document.
--- NOTE | 2024-04-10 10:30 | CA_ITS ---
Patient Name: DEBORA GIFFORD MR#: [id number] : 1935 Exam Date: 04/10/2024 Ordering Doctor: CHILANGO SANDOVAL CNP ECHOCARDIOGRAM REPORT PROCEDURE: CA ECHO LIMITED INDICATIONS: Pericardial effusion COMPARISON: None. DESCRIPTION: Limited ECHOCARDIOGRAM Real-time transthoracic echocardiography with 2D and M-mode performed. QUALITY: Technical quality was good. Limited echocardiogram per order. LEFT VENTRICLE: Normal chamber size. Thickened septal wall. Normal systolic function. LV EF: Normal left ventricular ejection fraction, (55%). DIASTOLIC: ATRIAL SEPTUM: LEFT ATRIUM: Moderate dilatation. RIGHT ATRIUM: Moderate dilatation. RIGHT VENTRICLE: Normal chamber size. Normal systolic function. Pacer wire present. TRICUSPID VALVE: Normal mobility and thickness. mild regurgitation. MITRAL VALVE: Normal mobility and thickness. There is no mitral annular calcification. Mild mitral regurgitation. AORTIC VALVE: Normal trileaflet appearance. Mildly calcified aortic valve. Normal leaflet mobility. AORTIC ROOT: Normal diameter and appearance. PULMONIC VALVE: Normal thickness and mobility. PERICARDIUM: Small circumferential pericardial effusion (1.1 cm). No right ventricular collapse. IVC: PLEURA: CONCLUSION: 1. Normal ventricular systolic function. LVEF is estimated at 55%. 2. Moderate biatrial dilatation. 3. Mild mitral and tricuspid regurgitation. 4. Small circumferential pericardial effusion with no echocardiographic evidence of tamponade physiology. Adult Echocardiography Procedure Report Left Ventricle LVEDD (3.7 - 5.6 cm): 4.62 cm LVESD (2.2 - 4.0 cm): 2.96 cm LVIVS thickness (0.6 - 1.2 cm): 1.30 cm LVPW thickness (0.5 - 1.0 cm): 9.33 mm LVOT Diameter 2.10 cm Left Ventricular Ejection Fraction: 55 % Left Atrium Left Atrium Systolic Dimension: 4.30 cm Mitral Valve Right Ventricle Aorta AO Root Diam: 2.60 cm Aortic Valve Tricuspid Valve Pulmonic Valve Right Atrium Dictated by: Ej Lopez M.D. on 04/10/2024 at 19:47 Approved by: Ej Lopez M.D. on 04/10/2024 at 19:49
== END 2024-04-10 10:07 | disposition home or self-care (01) ==
LOC: CARD 10:07
PROVIDERS: PCP Family Medicine; Visit Provider Nurse Practitioner Family
DX: I31.39 Other pericardial effusion (noninflammatory) (principal)
CPT/HCPCS: 93308

== ENCOUNTER 2024-04-30 13:37 | Outpatient (OUT) | payer MEDICARE, OTHER, SELFPAY ==
--- OUTSIDE RECORDS SUMMARY | 2024-04-30 13:56 | XMS_ITS | CCD ---
Author Organization [facility]ini[facility] Care Team Providers Care Flavorings Compounder Name Role Phone ROBBY ., DR LOYA Primary Care Unavailable LORI, [...] Unavailable HOY ., DR LOYA Consulting Unavailable BUFFALO, DR JAY Santillan Consulting Unavailable LORI, CHILANGO [...] NORMAN ., DR LOYA Primary Care Unavailable NORMAN VINCENZO M Primary Care Unavailable ZHAO PEDERSEN Referring Unavailable Vincenzo Patel MD Primary Care Provider [phone] Feroz Sean SIMS Unavailable Vincenzo Patel MD Primary Care Provider Jay Munoz MD Unavailable [phone] ABIMBOLA CHACON Attending Unavailable SELF, SELF Referring Unavailable HOY VINCENZO M Primary Care Unavailable ABIMBOLA CHACON Attending Unavailable SELF, SELF Referring Unavailable HOY, VINCENZO Primary Care Unavailable SIMONE CAMPOVERDE Attending Unavailable HOY, VINCENZO Primary Care Unavailable SIMONE CAMPOVERDE Attending Unavailable LORIE PARK Attending Unavailable HOY, VINCENZO Primary Care Unavailable HOY, VINCENZO Primary Care Unavailable KIKO BARBA Attending Unavailable JAY MUNOZ Attending Unavailable HOY, VINCENZO Referring Unavailable HOY, VINCENZO Primary Care Unavailable HAY ROBBINS Attending Unavailable PROVIDER, CONVERSION Primary Care Unavailable HAY ROBBINS Referring Unavailable PROVIDER, CONVERSION Primary Care Unavailable Avtar TUCKER Attending Unavailable Hoy, Vincenzo Referring Unavailable Robby, Vincenzo Primary Care Physician SU, JAMI Referring Unavailable SU, JAMI Referring Unavailable SU, JAMI Referring Unavailable SU, JAMI Referring Unavailable SU, JAMI Referring Unavailable SU, JAMI Referring Unavailable SANAULLJAYME, ADY Referring Unavailable NADEEM ABBASI Attending Unavailable JJ AYERS Attending Unavailable CHILANGO SANDOVAL Attending Unavailable STEFANO COBOS Attending Unavailable UNKNOWN, UNKNOWN Referring Unavailable HORKRYSTIN MONTEMAYOR Admitting Unavailable ORQUIDEA, KOFI Attending Unavailable SU, JAMI Referring Unavailable SU, JAMI Referring Unavailable Allergies Allergy Classification Reported Allergen(s) Allergy Type Date of Onset Reaction(s) Facility (2 sources) Enalapril; Translations: [Vasotec] Drug Allergy 5 [facility] Repository (6 sources) Isosorbide; Translations: [ISOSORBIDE] Drug Allergy 0 [facility] Repository (2 sources) NIFEdipine; Translations: [Procardia] Drug Allergy 5 [facility] Repository (2 sources) Calcium Channel Blockers Propensity to adverse reactions to drug 3 [facility] (3 sources) Enalapril; Translations: [enalapril] Drug Allergy 3 Unknown (qualifier value) [facility] (7 sources) Enalapril; Translations: [ENALAPRIL MALEATE] Drug Allergy 3 Unknown [facility] (4 sources) Isosorbide Drug Allergy 0 Other (See Comments) [facility] (8 sources) Lisinopril; Translations: [LISINOPRIL] Drug Allergy 2 Other (See Comments), Unknown (qualifier value) [facility] (9 sources) Morphine; Translations: [MORPHINE] Drug Allergy 2 Other (See Comments) [facility] (8 sources) NIFEdipine; Translations: [NIFEDIPINE] Drug Allergy 5 Unknown, Unknown (qualifier value) [facility] (8 sources) Sulfonamides (Antibiotic); Translations: [SULFA (SULFONAMIDE ANTIBIOTICS)] Propensity to adverse reactions to drug 3 Unknown [facility] (8 sources) Calcium Channel Blocking Agents-Dihydropy ridines; Translations: [CALCIUM CHANNEL BLOCKING AGENTS-DIHYDROPY RIDINES] Propensity to adverse reactions to drug 5 Unknown [facility] (2 sources) dorzolamide / Timolol; Translations: [DORZOLAMIDE-TRISTEN OLOL] Drug Allergy 4 [facility] Repository (1 source) Lisinopril; Translations: [Zestril] Drug Allergy [facility] Repository (2 sources) Sulfonamides (Antibiotic); Translations: [sulfa drugs] Propensity to adverse reactions (disorder) Unknown (qualifier value) [facility] Repository (1 source) dapagliflozin; Translations: [DAPAGLIFLOZIN] Drug Allergy 4 [facility] Repository Medications Current Medications Medication Drug Class(es) Dates Sig (Normalized) Sig (Original) albuterol 0.83 mg/ml inhalation solution (4 sources) beta2-Adrenergic Agonist Start: 02-16-2023 take 3 mL by [...] 05/04/2023 Active atorvastatin 10 mg oral tablet (2 sources) HMG-CoA Reductase Inhibitor Start: 03-16-2024 End: 04-15-2024 take 1 tablet by mouth once daily atorvastatin 10 mg Tab 10 mg = 1 tab(s), Oral, Daily, Refills(s) 0 Start Date: 04/13/24 Status: Ordered bumetanide 1 mg oral tablet (8 sources) Loop Diuretic Start: 04-13-2024 take 1 tablet by mouth once daily bumetanide 1 mg Tab 1 mg = 1 tab(s), Oral, Daily, Refills(s) 0 Start Date: 04/13/24 Status: Ordered Start: 05-24-2023 End: 06-28-2023 take 1 tablet by mouth once daily bumetanide (BUMEX) 1 MG tablet Take 1 (one) tablet (1 mg total) by mouth daily . 90 tablet 3 06/28/2023 Active cholecalciferol 0.25 mg oral capsule (4 sources) Vitamin D cholecalciferol (VITAMIN D3) 250 mcg (10,000 unit) capsule as directed Orally Active ciclopirox 80 mg/ml topical solution (6 sources) Start: 03-24-20 ciclopirox 8 % Solution topical solution APPLY 1 SOLUTION TOPICALLY ONCE DAILY FOR 30 DAYS 03/24/2023 Active colchicine 0.6 mg oral tablet (2 sources) Start: 03-15-20 End: 05-14-20 take 1 tablet by mouth twice daily colchicine 0.6 mg Tab 0.6 mg = 1 tab(s), Oral, BID, Refills(s) 0 Start Date: 04/13/24 Status: Ordered 24 hr dilTIAZem hydrochloride 300 mg extended release oral tablet (7 sources) Calcium Channel Antwon Start: 04-13-20 take 1 tablet by mouth once daily Cardizem LA 300 mg/24 hours oral tablet, extended release 300 mg = 1 tab(s), Oral, Daily, Refills(s) 0 Start Date: 04/13/24 Status: Ordered Start: 04-26-2023 Diltiazem 180 MG Cap SR 24HR capsule XL 04/26/2023 Active take [address] [facility] once daily diltiazem (TIAZAC) 240 MG 24 hr capsule Take by mouth daily . Active take [address] [facility] once daily diltiazem (CARDIZEM CD) 300 MG 24 hr capsule Take 1 (one) capsule (300 mg total) by mouth daily . Active famotidine 40 mg oral tablet (2 sources) Histamine-2 Receptor Antagonist Start: 04-13-2024 take 1 tablet by mouth twice daily Pepcid 40 mg Tab 40 mg = 1 tab(s), Oral, BID, Refills(s) 0 Start Date: 04/13/24 Status: Ordered Start: 11-30-2023 [facility] Pepcid 40 MG tablet Take 1 tablet by mouth 2 times daily. 11/30/2023 Active ferrous sulfate 325 mg delayed release oral tablet (1 source) Start: 04-13-2024 take 1 tablet by mouth twice daily ferrous sulfate 325 mg oral enteric coated tablet 325 mg = 1 tab(s), Oral, BID, Refills(s) 0 Start Date: 04/13/24 Status: Ordered hydrALAZINE hydrochloride 100 mg oral tablet (6 sources) Arteriolar Vasodilator Start: 05-20-2023 take 1 tablet by mouth twice daily hydrALAZINE (APRESOLINE) 100 MG tablet Take 1 tablet twice a day by oral route for 90 days. 05/20/2023 Active latanoprost 0.05 mg/ml ophthalmic solution (7 sources) Prostaglandin Analog Start: 05-16-2023 latanoprost (XALATAN) 0.005 % ophthalmic solution every night at bedtime . 05/16/2023 Active Start: 05-16-2023 Latanoprost 0. 005 % Solution ophthalmic solution 05/16/2023 Active Start: 11-14-2020 take 1 drop(s) into the eye(s) once daily at bedtime latanoprost ophthalmic 0.005% solution 1 drop(s), OPTH, Once a day (at bedtime), 2.5 mL, Refill(s) 0 Start Date: 11/14/20 Status: Ordered liothyronine sodium 0.005 mg oral tablet (7 sources) l-Triiodothyronine Start: 04-13-2024 take 2 tablets by mouth once daily liothyronine 5 mcg Tab 10 mcg = 2 tab(s), Oral, Daily, Refills(s) 0 Start Date: 04/13/24 Status: Ordered Start: 05-16-2023 take 2 tablets by mo [facility] once daily liothyronine (CYTOMEL) 5 MCG tablet [...] Take 1 tablet by mouth. 0 Active magnesium oxide 250 mg oral tablet (1 source) Start: 04-13-2024 take 1 tablet by mouth twice daily magnesium oxide 250 mg oral tablet 250 mg = 1 tab(s), Oral, BID, Refills(s) 0 Start Date: 04/13/24 Status: Ordered metoprolol tartrate 50 mg oral tablet (2 sources) beta-Adrenergic Antwon Start: 03-15-2024 End: 05-14-2024 take 1 tablet by mouth three times daily Metoprolol tartrate 50 mg Tab 50 mg = 1 tab(s), Oral, TID, Refills(s) 0 Start Date: 04/13/24 Status: Ordered rivaroxaban 20 mg oral tablet (7 sources) Factor Xa Inhibitor Start: 04-13-2024 take 1 tablet by mouth once daily in the evening Xarelto 20 mg oral tablet 20 mg = 1 tab(s), Oral, qPM, Refills(s) 0 Start Date: 04/13/24 Status: Ordered Start: 04-13-2022 take 1 tablet by eh th once daily Xarelto 20 mg Tab Take 1 (one) tablet (20 mg total) by mouth daily . 04/13/2022 Active simvastatin 10 mg oral tablet (6 sources) HMG-CoA Reductase Inhibitor Start: 05-29-2023 take 1 tablet by mouth once daily simvastatin (ZOCOR) 10 MG tablet Take 1 (one) tablet (10 mg total) by mouth daily . 05/29/2023 Active 12 hr timolol 5 mg/ml ophthalmic solution (11 sources) beta-Adrenergic Antwon Start: 05-09-2023 timolol (TIMOPTIC) 0.5 % ophthalmic solution every night at bedtime . 05/09/2023 Active Start: 05-09-2023 Timolol maleat e 0.5 % Solution ophthalmic solution 05/09/2023 Active Start: 11-14-2020 Timolol Maleat e (Eqv-Istalol) 0.5% ophthalmic solution Refill(s) 0 Start Date: 11/14/20 Status: Ordered take 1 drop(s) into the eye(s) twice [...] atrial fibrillation; Translations: [Paroxysmal atrial fibrillation] Onset: 2 06-23-2023 Chronic Cardiac dysrhythmias (4 sources) Palpitations; Translations: [PALPITATIONS] Onset: 3 Episodic Cataract (2 sources) After-cataract of left eye; Translations: [Other secondary cataract, left eye] 05-31-2023 Chronic Conduction disorders (9 sources) Cardiac pacemaker in situ; Translations: [Presence of cardiac pacemaker] Onset: 3 06-28-2023 Chronic Congestive heart failure; nonhypertensive (15 sources) Unspecified diastolic (congestive) heart failure; Translations: [Acute combined systolic (congestive) and diastolic (congestive) heart failure] Onset: 3 Chronic Coronary atherosclerosis and other heart disease (1 source) History of myocardial infarction 04-13-2024 Chronic Deficiency and other anemia (2 sources) Iron deficiency anemia; Translations: [Iron deficiency anemia, unspecified] Onset: 4 Episodic Disorders of lipid metabolism (3 sources) Pure hypercholesterolemia, unspecified; Translations: [Hyperlipidemia, unspecified] Onset: 3 04-13-2024 Chronic Essential hypertension (10 sources) Hypertensive disorder; Translations: [Essential (primary) hypertension] Onset: 3 06-28-2023 Chronic Fluid and electrolyte disorders (1 source) Hypokalemia; Translations: [HYPOKALEMIA] Onset: 3 Episodic Gastrointestinal hemorrhage (1 source) Gastrointestinal hemorrhage 02-17-2021 Episodic Glaucoma (4 sources) Primary open angle glaucoma; Translations: [Primary open-angle glaucoma, bilateral, indeterminate stage] Onset: 4 05-31-2023 Chronic Headache; including migraine (3 sources) Headache; including migraine; Translations: [HEADACHE UNSPECIFIED] Onset: 2 Heart valve disorders (3 sources) Aortic valve regurgitation; Translations: [Mitral valve regurgitation] 11-14-2020 Chronic Hypertension with complications and secondary hypertension (2 sources) Hypertensive heart disease with heart failure; Translations: [Hypertensive urgency] Onset: 2 Chronic Menopausal disorders (4 sources) Other primary ovarian failure; Translations: [OTHER PRIMARY OVARIAN FAILURE] Onset: 3 Chronic Nonmalignant breast conditions (1 source) Fibrocystic disease of breast 04-13-2024 Chronic Osteoarthritis (1 source) Osteoarthritis 11-14-2020 Chronic Other and ill-defined heart disease (1 source) Cardiomegaly 04-13-2024 Chronic Other and ill-defined heart disease (1 source) Ventricular hypertrophy 11-14-2020 Chronic Other bone disease and musculoskeletal deformities (1 source) Osteopenia 11-14-2020 Episodic Other gastrointestinal disorders (1 source) Abnormal feces; Translations: [Other fecal abnormalities] Onset: 4 Episodic Other gastrointestinal disorders (1 source) H/O: gastrointestinal disease; Translations: [Personal history of other diseases of the digestive system] Onset: 4 Episodic Other gastrointestinal disorders (1 source) History of gastritis 04-19-2024 Episodic Other gastrointestinal disorders (1 source) Occult blood in stools 04-19-2024 Episodic Other lower respiratory disease (4 sources) Shortness of breath; Translations: [SHORTNESS OF BREATH] Onset: 3 Episodic Other lower respiratory disease (1 source) Dyspnea 11-14-2020 Episodic Other lower respiratory disease (1 source) Multiple nodules of lung 04-13-2024 Episodic Other lower respiratory disease (2 sources) Other forms of dyspnea; Translations: [Other forms of dyspnea] Onset: 4 Episodic Other non-epithelial cancer of skin (1 source) Basal cell carcinoma of skin 11-14-2020 Episodic Other screening for suspected conditions (not mental disorders or infectious disease) (8 sources) Encounter for screening for malignant neoplasm of rectum; Translations: [Encounter for screening for osteoporosis] Onset: 2 Episodic Other skin disorders (1 source) Epidermoid cyst 11-19-2020 Episodic Ovarian cyst (2 sources) Unspecified ovarian cyst, right side; Translations: [Unspecified ovarian cyst, right side] Onset: 4 Episodic Renata-; endo-; and myocarditis; cardiomyopathy (except that caused by tuberculosis or sexually transmitted disease) (2 sources) Pericardial effusion; Translations: [Pericardial effusion] 03-29-2024 Episodic Pleurisy; pneumothorax; pulmonary collapse (5 sources) Pleural effusion; Translations: [Pleural effusion, not elsewhere classified] Onset: 4 03-29-2024 Episodic Residual codes; unclassified (1 source) Obstructive sleep apnea syndrome 11-14-2020 Chronic Syncope (1 source) Syncope 11-14-2020 Episodic Thyroid disorders (6 sources) Hypothyroidism, unspecified; Translations: [Hypothyroidism] Onset: 3 Chronic Transient cerebral ischemia (1 source) Transient cerebral ischemia 11-14-2020 Chronic Unclassified (3 sources) LOW BACK PAIN, UNSPECIFIED; Translations: [LOW BACK PAIN, UNSPECIFIED] Onset: 3 Unclassified (1 source) PERSONAL HISTORY OF COVID-19; Translations: [PERSONAL HISTORY OF COVID-19] Onset: 2 Unclassified (2 sources) Other persistent atrial fibrillation; Translations: [Other persistent atrial fibrillation] Onset: 4 Unclassified (2 sources) Other pericardial effusion (noninflammatory); Translations: [Other pericardial effusion (noninflammatory)] Onset: 4 Unclassified (1 source) New Patient Onset: 4 Unclassified (1 source) Sebaceous cyst of skin 11-14-2020 Past or Other Problems Problem Classification Problem [...] 09-06-2022 Episodic Other aftercare (1 source) Other long term care administrator (current) drug therapy; Translations: [OTH RECORDS MANAGEMENT ENGINEER CURRENT DRUG THERAPY] Onset: 05-25-2022 Episodic Residual codes; unclassified (1 source) Acquired absence of other specified parts of digestive tract; Translations: [ACQ ABSENCE OTH PART DIGESTV TRACT] Onset: 05-25-2022 Episodic Unclassified (1 source) LOW BACK PAIN, UNSPECIFIED; Translations: [LOW BACK PAIN, UNSPECIFIED] Onset: 08-27-2022 Unclassified (2 sources) Other pericardial effusion (noninflammatory); Translations: [Other pericardial effusion (noninflammatory)] Onset: 03-28-2024 Results Test Name Value Interpretation Reference Range Facility Cancer Ag 125 Qnon 4 CA 125 68 U/mL High 0-35 [facility] Comment on above: Result Comment: The method used for this test is [place] [employer] DXI chemiluminescent immunoassay. Values obtained by different assay methods cannot be used interchangeably. Performed By: #### 1 [id number] #### [facility] ([id number]) [address] [place] [address], [address] [place] [address] 36on 04-13-2024 36 Normal [facility] Follow-Upon 08-23-2024 Follow-Up Normal [facility] Follow-Upon 03-28-2024 Follow-Up Normal [facility] Documentationon 03-20-2024 Documentation Normal [facility] 30on 03-15-2024 30 Normal [facility] CBC WITH AUTO DIFFERENTIALon 03-15-2024 Erythrocyte distribution width (RBC) [Ratio] 19.3 % High 11.5-15.0 [facility] Comment on above: Performed By: #### L [id number] ####[facility] (BEAKER)[address] [facility] [address] ERYTHROCYTE MEAN CORPUSCULAR HEMOGLOBIN CONCENTRATION (G/DL) BY AUTOMATED 28.8 g/dL Low 32.0-35.0 [facility] Comment on above: Performed By: #### L [id number] ####[facility] (BEAKER)[address] [place] [address] Hematocrit (Bld) [Volume fraction] 28.5 % Low 36.0-48.0 [facility] Comment on above: Performed By: #### L [id number] ####[facility] (BEAKER)[address] [place] [address] Hemoglobin (Bld) [Mass/Vol] 8.2 g/dL Low 12.0-15.0 [facility] Comment on above: Performed By: #### L [id number] ####[facility] (BEAKER)[address] [place] [address] MCH (RBC) [Entitic mass] 22.2 pg Low 27.0-33.0 [facility] Comment on above: Performed By: #### L [id number] ####[facility] (BEAKER)[address] [place] [address] MCV (RBC) [Entitic vol] 77.2 fL Low 82.0-98.0 [facility] Comment on above: Performed By: #### L [id number] ####[facility] (BEAKER)[address] [place] [address] NRBC (PER 100 WBCS) BY AUTOMATED COUNT 0.2 % High 0 [facility] Comment on above: Performed By: #### L [id number] ####[facility] ([facility])[address] [place] [address] PLATELETS (10*3/UL) IN BLOOD AUTOMATED COUNT 287 10*3/uL Normal 150-400 [facility] Comment on above: Performed By: #### L [id number] ####[facility] ([facility])[address] [place] [address] RBC (Bld) [#/Vol] 3.69 10*6/uL Low 3.80-5.00 [facility] Comment on above: Performed By: #### L [id number] ####[facility] ([facility])[address] [place] [address] WBC (Bld) [#/Vol] 9.45 10*3/uL Normal 4.00-10.60 [facility] Comment on above: Performed By: #### L [id number] ####[facility] ([facility])[address] [place] [address] COMPREHENSIVE METABOLIC PANE Robbie 03-15-2024 Albumin [Mass/Vol] 2.8 g/dL Low 3.5-5.[address] [facility] Comment on above: Performed By: #### L [id number] ####[facility] (BEAKER)[address] [place] [address] ALP [Catalytic activity/Vol] 56 U/L Normal 34-104 [facility] Comment on above: Performed By: #### L [id number] ####[facility] (BEAKER)[address] [place] [address] ALT [Catalytic activity/Vol] 44 U/L Normal 7-52 [facility] Comment on above: Performed By: #### L [id number] ####[facility] (BEAKER)[address] [place] [address] Anion gap [Moles/Vol] 11 mmol/L Normal 7-20 [facility] Comment on above: Performed By: #### L [id number] ####[facility] (BEAKER)[address] [place] [address] AST [Catalytic activity/Vol] 14 U/L Normal 13-39 [facility] Comment on above: Performed By: #### L [id number] ####[facility] (BEAKER)[address] [place] [address] Bilirubin [Mass/Vol] 0.3 mg/dL Normal 0.3-1.0 [facility] Comment on above: Performed By: #### L [id number] ####[facility] (BEAKER)[address] [place] [address] Calcium [Mass/Vol] 8.1 mg/dL Low 8.6-10.[address] [facility] Comment on above: Performed By: #### L [id number] ####[facility] (BEAKER)[address] [place] [address] Chloride [Moles/Vol] 100 mmol/L Normal 98-107 [facility] Comment on above: Performed By: #### L [id number] ####[facility] (BEAKER)[address] [place] [address] CO2 [Moles/Vol] 29 mmol/L Normal 21-31 [facility] Comment on above: Performed By: #### L [id number] ####[facility] (BEAKER)[address] [place] [address] Creatinine [Mass/Vol] 0.67 mg/dL Normal 0.60-1.20 [facility] Comment on above: Performed By: #### L [id number] ####[facility] (BEAKER)[address] [place] [address] GLOMERULAR FILTRATION RATE ML/MIN/1.73 SQ M.PREDICTED 85.1 mL/min/1.73m*2 Normal >60.0 [facility] Comment on above: Result Comment: [facility]???s estimated glomerular filtration rate (eGFR) will [...] of individuals. Performed By: #### L [id number] ####[facility] ([facility])[address] [place] [address] Glucose [Mass/Vol] 92 mg/dL Normal 70-[address] [facility] Comment on above: Performed By: #### L [id number] ####[facility] ([facility])[address] [place] [address] Potassium [Moles/Vol] 3.4 mmol/L Low 3.5-5.1 [facility] Comment on above: Performed By: #### L [id number] ####[facility] ([facility])[address] [place] [address] Protein [Mass/Vol] 5.7 g/dL Low 6.0-8.[address] [facility] Comment on above: Performed By: #### L [id number] ####[facility] ([facility])[address] [place] [address] Sodium [Moles/Vol] 137 mmol/L Normal 136-[address] [facility] Comment on above: Performed By: #### L [id number] ####[facility] ([facility])[address] [place] [address] Urea nitrogen [Mass/Vol] 12 mg/dL Normal 7-25 [facility] Comment on above: Performed By: #### L [id number] ####[facility] ([facility])[address] [place] [address] UREA NITROGEN/CREATININ E (MASS RATIO) IN SER/PLAS 17.9 [facility] Comment on above: Performed By: #### L [id number] ####[facility] ([facility])[address] [place] [address] DSon 03-15-2024 DS Normal [facility] MANUAL DIFFERENTIALon 2023 ANISOCYTOSIS PRESENCE IN BLOOD BY LIGHT MICROSCOPY Moderate Normal [facility] Comment on above: Performed By: #### L [id number] ####[facility] ([facility])[address] [place] [address] BASOPHILS (10*3/UL) IN BLOOD BY CALCULATION 0.06 10*3/uL Normal 0.00-0.20 [facility] Comment on above: Performed By: #### L [id number] ####[facility] ([facility])[address] [place] [address] BASOPHILS/100 LEUKOCYTES IN BLOOD BY AUTOMATED COUNT 0.6 % Normal 0.0-1.0 [facility] Comment on above: Performed By: #### L [id number] ####[facility] ([facility])[address] [place] [address] EOSINOPHILS (10*3/UL) IN BLOOD BY CALCULATION 0.43 10*3/uL Normal 0.00-0.50 [facility] Comment on above: Performed By: #### L [id number] ####[facility] ([facility])[address] [place] [address] EOSINOPHILS/100 LEUKOCYTES IN BLOOD BY AUTOMATED COUNT 4.6 % Normal 0.0-6.0 [facility] Comment on above: Performed By: #### L [id number] ####[facility] ([facility])[address] [place] [address] HYPOCHROMIA (PRESENCE) IN BLOOD BY LIGHT MICROSCOPY Slight Normal [facility] Comment on above: Performed By: #### L [id number] ####[facility] ([facility])[address] [place] [address] IMMATURE GRANULOCYTES (10*3/UL) IN BLOOD BY CALCULATION 0.13 10*3/uL Normal 0.00-0.20 [facility] Comment on above: Performed By: #### L [id number] ####[facility] ([facility])[address] [place] [address] IMMATURE GRANULOCYTES/100 LEUKOCYTES IN BLOOD BY AUTOMATED COUNT 1.4 % High 0.0-1.0 [facility] Comment on above: Performed By: #### L [id number] ####[facility] ([facility])[address] [place] [address] LYMPHOCYTES (10*3/UL) IN BLOOD BY CALCULATION 2.25 10*3/uL Normal 1.20-4.00 [facility] Comment on above: Performed By: #### L [id number] ####[facility] ([facility])[address] [place] [address] LYMPHOCYTES/100 LEUKOCYTES IN BLOOD BY AUTOMATED COUNT 23.8 % Normal 20.0-45.0 [facility] Comment on above: Performed By: #### L [id number] ####[facility] ([facility])[address] [place] [address] MONOCYTES (10*3/UL) IN BLOOD BY CALCUATION 0.95 10*3/uL Normal 0.10-1.00 [facility] Comment on above: Performed By: #### L [id number] ####[facility] ([facility])[address] [place] [address] MONOCYTES/100 LEUKOCYTES IN BLOOD BY AUTOMATED COUNT 10.1 % Normal 5.0-12.0 [facility] Comment on above: Performed By: #### L [id number] ####[facility] ([facility])[address] [place] [address] NEUTROPHILS (10*3/UL) IN BLOOD BY CALCULATION 5.6 10*3/uL Normal 1.6-7.6 [facility] Comment on above: Performed By: #### L [id number] ####[facility] ([facility])[address] [place] [address] NEUTROPHILS/100 LEUKOCYTES IN BLOOD BY AUTOMATED COUNT 59.5 % Normal 40.0-72.0 [facility] Comment on above: Performed By: #### L [id number] ####[facility] ([facility])[address] [place] [address] POIKILOCYTOSIS (PRESENCE) IN BLOOD BY LIGHT MICROSCOPY Slight Normal [facility] Comment on above: Performed By: #### L [id number] ####[facility] ([facility])[address] [place] [address] POLYCHROMASIA IN BLOOD BY LIGHT MICROSCOPY Slight [facility] Comment on above: Performed By: #### L [id number] ####[facility] ([facility])[address] [place] [address] Orders Onlyon 03-15-2024 Orders Only [id number] Yolette Gifford nne F 1935 F Date Provider Department Center 03/15/202489705-OOIRDMAC APZ [facility] PULM [facility] No family history on file [facility] POCT GLUCOSE METER UNSOLICIT ED RESULTSon 03-15-2024 Glucose [Mass/Vol] 99 mg/dL Normal 70-[address] [facility] Comment on above: Order Comment: Waive d Testing in the ED is performed under the ED CLIA certificate #[id number]. Result Comment: [email or web address] Performed By: #### L [id number] ####[facility] ([facility])[address] [place] [address] Glucose [Mass/Vol] 104 mg/dL Normal 70-[address] [facility] Comment on above: Order Comment: Waive d Testing in the ED is performed under the ED CLIA certificate #[id number]. Result Comment: krob [email or web address] Performed By: #### L [id number] ####[facility] ([facility])[address] [place] [address] 30on 03-14-2024 30 Normal [facility] 30 Normal [facility] 30 Normal [facility] AFB CULTUREon 03-14-2024 AFB CULTURE No growth at 42 days Normal [facility] Comment on above: Performed By: #### L [id number] ####[facility] ([facility])[address] [place] [address] AFB STAIN No acid fast bacilli seen Normal [facility] Comment on above: Performed By: #### L [id number] ####[facility] ([facility])[address] [place] [address] AMYLASE, BODY FLUIDon 2023 AMYLASE (U/L) IN BODY FLUID 31 U/L [facility] Comment on above: Result Comment: The reference range and other method performance specifications have not been established for this test in fluids. the test result should be integrated into the clinical context for interpretation. Performed By: #### L [id number] ####[facility] ([facility])[address] [place] [address] BODY FLUID CELL DIFFERENTIAL on 03-14-2024 BASOPHILS TOTAL PER COUNTED LEUKOCYTES IN BODY FLUID BY MANUAL COUNT [facility] Comment on above: Order Comment: Diffe rential performed on cytospin Performed By: #### L [id number] ####[facility] ([facility])[address] [place] [address] CELLS COUNTED TOTAL (#) IN BODY FLUID 100 [facility] Comment on above: Order Comment: Diffe rential performed on cytospin Performed By: #### L [id number] ####[facility] ([facility])[address] [place] [address] EOSINOPHILS TOTAL PER COUNTED LEUKOCYTES IN BODY FLUID BY MANUAL COUNT 4 [facility] Comment on above: Order Comment: Diffe rential performed on cytospin Performed By: #### L [id number] ####[facility] ([facility])[address] [place] [address] LYMPHOCYTES TOTAL PER COUNTED LEUKOCYTES IN BODY FLUID BY MANUAL COUNT 60 [facility] Comment on above: Order Comment: Diffe rential performed on cytospin Performed By: #### L [id number] ####[facility] ([facility])[address] [place] [address] MESOTHELIAL CELLS TOTAL PER COUNTED LEUKOCYTES IN BODY FLUID BY MANUAL COUN 19 [facility] Comment on above: Order Comment: Diffe rential performed on cytospin Performed By: #### L [id number] ####[facility] ([facility])[address] [place] [address] MONOCYTES+MACROPHA GES TOTAL PER COUNTED LEUKOCYTES IN BODY FLUID BY MANUAL Normal [facility] Comment on above: Order Comment: Diffe rential performed on cytospin Result Comment: Juan Carlos ected result: Previously reported as 19 (reference range: ) on 03/14/2024 at 1324 EDT. Performed By: #### L [id number] ####[facility] ([facility])[address] [place] [address] NEUTROPHILS TOTAL PER COUNTED LEUKOCYTES IN BODY FLUID BY MANUAL COUNT 17 Normal [facility] Comment on above: Order Comment: Diffe rential performed on cytospin Performed By: #### L [id number] ####[facility] ([facility])[address] [place] [address] OTHER CELLS BODY FLUID (MANUAL) Normal [facility] Comment on above: Order Comment: Diffe rential performed on cytospin Performed By: #### L [id number] ####[facility] ([facility])[address] [place] [address] BODY FLUID CULTUREon 024 Bacteria identified Cx Nom (Unsp spec) No growth at 5 days Normal [facility] Comment on above: Performed By: #### L [id number] ####[facility] ([facility])[address] [place] [address] GRAM STAIN RESULT Normal [facility] Comment on above: Result Comment: Cyto centrifuge samplePolymorphonuclear leukocytesNo organisms seen Performed By: #### L [id number] ####[facility] ([facility])[address] [place] [address] CBC WITH AUTO DIFFERENTIALon 03-14-2024 Erythrocyte distribution width (RBC) [Ratio] 18.5 % High 11.5-15.0 [facility] Comment on above: Performed By: #### L [id number] ####[facility] ([facility])[address] [place] [address] ERYTHROCYTE MEAN CORPUSCULAR HEMOGLOBIN CONCENTRATION (G/DL) BY AUTOMATED 28.9 g/dL Low 32.0-35.0 [facility] Comment on above: Performed By: #### L [id number] ####[facility] ([facility])[address] [place] [address] Hematocrit (Bld) [Volume fraction] 28.4 % Low 36.0-48.0 [facility] Comment on above: Performed By: #### L [id number] ####[facility] ([facility])[address] [place] [address] Hemoglobin (Bld) [Mass/Vol] 8.2 g/dL Low 12.0-15.0 [facility] Comment on above: Performed By: #### L [id number] ####[facility] ([facility])[address] [place] [address] MCH (RBC) [Entitic mass] 22.0 pg Low 27.0-33.0 [facility] Comment on above: Performed By: #### L [id number] ####[facility] ([facility])[address] [place] [address] MCV (RBC) [Entitic vol] 76.1 fL Low 82.0-98.0 [facility] Comment on above: Performed By: #### L [id number] ####[facility] ([facility])[address] [place] [address] NRBC (PER 100 WBCS) BY AUTOMATED COUNT 0.0 % Normal 0 [facility] Comment on above: Performed By: #### L [id number] ####[facility] ([facility])[address] [place] [address] PLATELETS (10*3/UL) IN BLOOD AUTOMATED COUNT 323 10*3/uL Normal 150-400 [facility] Comment on above: Performed By: #### L [id number] ####[facility] ([facility])[address] [place] [address] RBC (Bld) [#/Vol] 3.73 10*6/uL Low 3.80-5.00 [facility] Comment on above: Performed By: #### L [id number] ####[facility] ([facility])[address] [place] [address] WBC (Bld) [#/Vol] 9.81 10*3/uL Normal 4.00-10.60 [facility] Comment on above: Performed By: #### L [id number] ####[facility] ([facility])[address] [place] [address] COMPREHENSIVE METABOLIC PANE Robbie 03-14-2024 Albumin [Mass/Vol] 2.9 g/dL Low 3.5-5.[address] [facility] Comment on above: Performed By: #### L [id number] ####[facility] ([facility])[address] [place] [address] ALP [Catalytic activity/Vol] 63 U/L Normal 34-104 [facility] Comment on above: Performed By: #### L [id number] ####[facility] ([facility])[address] [place] [address] ALT [Catalytic activity/Vol] 61 U/L High 7-52 [facility] Comment on above: Performed By: #### L [id number] ####[facility] ([facility])[address] [place] [address] Anion gap [Moles/Vol] 11 mmol/L Normal 7-20 [facility] Comment on above: Performed By: #### L [id number] ####[facility] ([facility])[address] [place] [address] AST [Catalytic activity/Vol] 19 U/L Normal 13-39 [facility] Comment on above: Performed By: #### L [id number] ####[facility] ([facility])[address] [place] [address] Bilirubin [Mass/Vol] 0.3 mg/dL Normal 0.3-1.0 [facility] Comment on above: Performed By: #### L [id number] ####[facility] ([facility])[address] [place] [address] Calcium [Mass/Vol] 8.1 mg/dL Low 8.6-10.[address] [facility] Comment on above: Performed By: #### L [id number] ####[facility] ([facility])[address] [place] [address] Chloride [Moles/Vol] 96 mmol/L Low 98-107 [facility] Comment on above: Performed By: #### L [id number] ####[facility] ([facility])[address] [place] [address] CO2 [Moles/Vol] 29 mmol/L Normal 21-31 [facility] Comment on above: Performed By: #### L [id number] ####[facility] ([facility])[address] [place] [address] Creatinine [Mass/Vol] 0.67 mg/dL Normal 0.60-1.20 [facility] Comment on above: Performed By: #### L [id number] ####[facility] ([facility])[address] [place] [address] GLOMERULAR FILTRATION RATE ML/MIN/1.73 SQ M.PREDICTED 85.1 mL/min/1.73m*2 Normal >60.0 [facility] Comment on above: Result Comment: [facility]???s estimated glomerular filtration rate (eGFR) will [...] of individuals. Performed By: #### L [id number] ####[facility] ([facility])[address] [place] [address] Glucose [Mass/Vol] 108 mg/dL High 70-[address] [facility] Comment on above: Performed By: #### L [id number] ####[facility] ([facility])[address] [place] [address] Potassium [Moles/Vol] 3.3 mmol/L Low 3.5-5.1 [facility] Comment on above: Performed By: #### L [id number] ####[facility] ([facility])[address] [place] [address] Protein [Mass/Vol] 5.8 g/dL Low 6.0-8.[address] [facility] Comment on above: Performed By: #### L [id number] ####[facility] ([facility])[address] [place] [address] Sodium [Moles/Vol] 133 mmol/L Low 136-[address] [facility] Comment on above: Performed By: #### L [id number] ####[facility] ([facility])[address] [place] [address] Urea nitrogen [Mass/Vol] 16 mg/dL Normal 7-25 [facility] Comment on above: Performed By: #### L [id number] ####[facility] ([facility])[address] [place] [address] UREA NITROGEN/CREATININ E (MASS RATIO) IN SER/PLAS 23.9 Normal [facility] Comment on above: Performed By: #### L [id number] ####[facility] ([facility])[address] [place] [address] GLUCOSE, BODY FLUIDon 2023 GLUCOSE (MG/DL) IN BODY FLUID 115 mg/dL Normal [facility] Comment on above: Result Comment: The reference range and other method performance specifications have not been established for this test in fluids. the test result should be integrated into the clinical context for interpretation. Performed By: #### L [id number] ####[facility] ([facility])[address] [place] [address] LACTATE DEHYDROGENASEon 02-14 LACTATE DEHYDROGENASE (U/L) IN SER/PLAS BY LAC->PYR RXN 198 U/L Normal 140-271 [facility] Comment on above: Performed By: #### L [id number] ####[facility] ([facility])[address] [place] [address] LACTATE DEHYDROGENASE, BODY FLUIDon 03-14-2024 LACTATE DEHYDROGENASE (U/L) IN BODY FLUID BY LAC->PYR 184 U/L Normal [facility] Comment on above: Result Comment: The reference range and other method performance specifications have not been established for this test in fluids. the test result should be integrated into the clinical context for interpretation. Performed By: #### L [id number] ####[facility] ([facility])[address] [place] [address] MANUAL DIFFERENTIALon 2023 ANISOCYTOSIS PRESENCE IN BLOOD BY LIGHT MICROSCOPY Moderate Normal [facility] Comment on above: Performed By: #### L [id number] ####[facility] ([facility])[address] [place] [address] BASOPHILS (10*3/UL) IN BLOOD BY CALCULATION 0.05 10*3/uL Normal 0.00-0.20 [facility] Comment on above: Performed By: #### L [id number] ####[facility] ([facility])[address] [place] [address] BASOPHILS/100 LEUKOCYTES IN BLOOD BY AUTOMATED COUNT 0.5 % Normal 0.0-1.0 [facility] Comment on above: Performed By: #### L [id number] ####[facility] ([facility])[address] [place] [address] EOSINOPHILS (10*3/UL) IN BLOOD BY CALCULATION 0.32 10*3/uL Normal 0.00-0.50 [facility] Comment on above: Performed By: #### L [id number] ####[facility] ([facility])[address] [place] [address] EOSINOPHILS/100 LEUKOCYTES IN BLOOD BY AUTOMATED COUNT 3.3 % Normal 0.0-6.0 [facility] Comment on above: Performed By: #### L [id number] ####[facility] ([facility])[address] [place] [address] IMMATURE GRANULOCYTES (10*3/UL) IN BLOOD BY CALCULATION 0.15 10*3/uL Normal 0.00-0.20 [facility] Comment on above: Performed By: #### L [id number] ####[facility] ([facility])[address] [place] [address] IMMATURE GRANULOCYTES/100 LEUKOCYTES IN BLOOD BY AUTOMATED COUNT 1.5 % High 0.0-1.0 [facility] Comment on above: Performed By: #### L [id number] ####[facility] ([facility])[address] [place] [address] LYMPHOCYTES (10*3/UL) IN BLOOD BY CALCULATION 1.75 10*3/uL Normal 1.20-4.00 [facility] Comment on above: Performed By: #### L [id number] ####[facility] ([facility])[address] [place] [address] LYMPHOCYTES/100 LEUKOCYTES IN BLOOD BY AUTOMATED COUNT 17.8 % Low 20.0-45.0 [facility] Comment on above: Performed By: #### L [id number] ####[facility] ([facility])[address] [place] [address] MONOCYTES (10*3/UL) IN BLOOD BY CALCUATION 1.11 10*3/uL High 0.10-1.00 [facility] Comment on above: Performed By: #### L [id number] ####[facility] ([facility])[address] [place] [address] MONOCYTES/100 LEUKOCYTES IN BLOOD BY AUTOMATED COUNT 11.3 % Normal 5.0-12.0 [facility] Comment on above: Performed By: #### L [id number] ####[facility] ([facility])[address] [place] [address] NEUTROPHILS (10*3/UL) IN BLOOD BY CALCULATION 6.4 10*3/uL Normal 1.6-7.6 [facility] Comment on above: Performed By: #### L [id number] ####[facility] ([facility])[address] [place] [address] NEUTROPHILS/100 LEUKOCYTES IN BLOOD BY AUTOMATED COUNT 65.6 % Normal 40.0-72.0 [facility] Comment on above: Performed By: #### L [id number] ####[facility] ([facility])[address] [place] [address] POIKILOCYTOSIS (PRESENCE) IN BLOOD BY LIGHT MICROSCOPY Slight Normal [facility] Comment on above: Performed By: #### L [id number] ####[facility] ([facility])[address] [place] [address] POLYCHROMASIA IN BLOOD BY LIGHT MICROSCOPY Slight Normal [facility] Comment on above: Performed By: #### L [id number] ####[facility] ([facility])[address] [place] [address] NON-PRINCIPAL ELECTRICAL ENGINEER CYTOLOGY - CELLULAR EXAMon 03-14-2024 LAB AP CASE REPORT Normal [facility] Comment on above: Result Comment: Non- gynecologic Cytology Case: [id number] Provider: Jami Su MD Collected: 03/14/2024 0930Order[facility] Received: 03/14/2024 1132Pathologist: STEVEN Umañapecimen: Pleural fluid, right Performed By: #### L [id number] ####[facility] ([facility])[address] [place] [address] LAB AP CLINICAL INFORMATION Normal [facility] Comment on above: Result Comment: Post -Op DiagnosesNo Dx found. Performed By: #### L [id number] ####[facility] ([facility])[address] [place] [address] LAB AP GROSS DESCRIPTION Normal [facility] Comment on above: Result Comment: 45 m L cloudy, red fluid. Performed By: #### L [id number] ####[facility] ([facility])[address] [place] [address] LAB AP REPORT FINAL DIAGNOSIS NARRATIVE Normal [facility] Comment on above: Result Comment: A. P leural fluid, right: - Negative for malignancy. - Chronic inflammation. Performed By: #### L [id number] ####[facility] ([facility])[address] [place] [address] PATHOLOGY REVIEWon PATHOLOGY REVIEW Reviewed. Normal [facility] Comment on above: Result Comment: Elec tronically signed by Harjit Castellon MD on 03/15/24 at 7:58 AM. Performed By: #### L [id number] ####[facility] ([facility])[address] [place] [address] PH PLEURAL FLUID, RESPIRATOR Yon 03-14-2024 PH PLEURAL FLUID 7.52 Normal [facility] Comment on above: Order Comment: The r eference range and other method performance specifications are unavailable for this body fluid. Interpretation nust be done by physician in conjunction with the clinical situation. ???This test was developed and its performance characteristics determined by [facility]. ???It has not been cleared or approved by the FDA. ???The laboratory is regulated under CLIA as qualified to perform moderately complexity testing. ???This test is used for clinical purposes. ???It should not be regarded as investigational or for research. Performed By: #### L [id number] ####[facility] RESPIRATORY [id number] [place] [address] [place] POCT GLUCOSE METER UNSOLICIT ED RESULTSon 03-14-2024 Glucose [Mass/Vol] 108 mg/dL High 70-[address] [facility] Comment on above: Order Comment: Waive d Testing in the ED is performed under the ED CLIA certificate #[id number]. Result Comment: dcun dic Performed By: #### L [id number] ####[facility] ([facility])[address] [place] [address] Glucose [Mass/Vol] 111 mg/dL High 70-[address] [facility] Comment on above: Order Comment: Waive d Testing in the ED is performed under the ED CLIA certificate #[id number]. Result Comment: dcun dic Performed By: #### L [id number] ####[facility] ([facility])[address] [place] [address] Glucose [Mass/Vol] 128 mg/dL High 70-[address] [facility] Comment on above: Order Comment: Waive d Testing in the ED is performed under the ED CLIA certificate #[id number]. Result Comment: [email or web address] Performed By: #### L [id number] ####[facility] ([facility])[address] [place] [address] PROTEIN, BODY FLUIDon 2023 Protein (Body fld) [Mass/Vol] 3.8 g/dL Normal [facility] Comment on above: Result Comment: The reference range and other method performance specifications have not been established for this test in fluids. the test result should be integrated into the clinical context for interpretation. Performed By: #### L [id number] ####[facility] ([facility])[address] [place] [address] PROTEIN, TOTALon 03-14-2024 Protein [Mass/Vol] 5.7 g/dL Low 6.0-8.[address] [facility] Comment on above: Performed By: #### L [id number] ####[facility] ([facility])[address] [place] [address] TRIGLYCERIDES, BODY FLUIDon 03-14-2024 TRIGLYCERIDES (MG/DL) IN BODY FLUID 30 mg/dL Normal [facility] Comment on above: Performed By: #### L [id number] ####[facility] ([facility])[address] [place] [address] 30on 03-13-2024 30 Normal [facility] 30 Normal [facility] 30 Normal [facility] 30 Normal [facility] AFB CULTUREon 03-13-2024 AFB CULTURE No growth at 42 days Normal [facility] Comment on above: Performed By: #### L [id number] ####[facility] (BEAKER)[address] [place] [address] AFB STAIN No acid fast bacilli seen Normal [facility] Comment on above: Performed By: #### L [id number] ####[facility] ([facility]AKER)[address] [place] [address] ANESon 03-13-2024 ANES Normal [facility] APTTon 03-13-2024 ACTIVATED PARTIAL THROMBOPLASTIN TIME IN PPP BY COAGULATION ASSAY 45.9 Seconds High 25.0-35.0 [facility] Comment on above: Result Comment: Clin ical significance of the APTT is questionable in the presence of heparin. Performed By: #### L [id number] ####[facility] ([facility])[address] [place] [address] BODY FLUID CELL DIFFERENTIAL on 03-13-2024 BASOPHILS TOTAL PER COUNTED LEUKOCYTES IN BODY FLUID BY MANUAL COUNT [facility] Comment on above: Order Comment: Diffe rential performed on cytospin Performed By: #### L [id number] ####[facility] ([facility])[address] [place] [address] CELLS COUNTED TOTAL (#) IN BODY FLUID 100 Normal [facility] Comment on above: Order Comment: Diffe rential performed on cytospin Performed By: #### L [id number] ####[facility] ([facility])[address] [place] [address] EOSINOPHILS TOTAL PER COUNTED LEUKOCYTES IN BODY FLUID BY MANUAL COUNT 4 Normal [facility] Comment on above: Order Comment: Diffe rential performed on cytospin Performed By: #### L [id number] ####[facility] ([facility])[address] [place] [address] LYMPHOCYTES TOTAL PER COUNTED LEUKOCYTES IN BODY FLUID BY MANUAL COUNT 4 Normal [facility] Comment on above: Order Comment: Diffe rential performed on cytospin Performed By: #### L [id number] ####[facility] ([facility])[address] [place] [address] MESOTHELIAL CELLS TOTAL PER COUNTED LEUKOCYTES IN BODY FLUID BY MANUAL COUN [facility] Comment on above: Order Comment: Diffe rential performed on cytospin Performed By: #### L [id number] ####[facility] ([facility])[address] [place] [address] MONOCYTES+MACROPHA GES TOTAL PER COUNTED LEUKOCYTES IN BODY FLUID BY MANUAL [facility] Comment on above: Order Comment: Diffe rential performed on cytospin Performed By: #### L [id number] ####[facility] ([facility])[address] [place] [address] NEUTROPHILS TOTAL PER COUNTED LEUKOCYTES IN BODY FLUID BY MANUAL COUNT 92 Normal [facility] Comment on above: Order Comment: Diffe rential performed on cytospin Performed By: #### L [id number] ####[facility] ([facility])[address] [place] [address] OTHER CELLS BODY FLUID (MANUAL) Normal [facility] Comment on above: Order Comment: Diffe rential performed on cytospin Performed By: #### L [id number] ####[facility] ([facility])[address] [place] [address] BODY FLUID CULTUREon 024 Bacteria identified Cx Nom (Unsp spec) No growth at 5 days Normal [facility] Comment on above: Performed By: #### L [id number] ####[facility] ([facility])[address] [place] [address] GRAM STAIN RESULT Normal [facility] Comment on above: Result Comment: Poly morphonuclear leukocytesNo organisms seenCytocentrifuge sample Performed By: #### L [id number] ####[facility] ([facility])[address] [place] [address] C-REACTIVE PROTEINon 024 C REACTIVE PROTEIN (MG/L) IN SER/PLAS 42.9 mg/L High 0.0-7.0 [facility] Comment on above: Performed By: #### L [id number] ####[facility] ([facility])[address] [place] [address] CBC WITH AUTO DIFFERENTIALon 03-13-2024 Basophils (Bld) [#/Vol] 0.04 10*3/uL Normal 0.00-0.20 [facility] Comment on above: Performed By: #### L [id number] ####[facility] ([facility])[address] [place] [address] Basophils/100 WBC (Bld) 0.4 % Normal 0.0-1.0 [facility] Comment on above: Performed By: #### L [id number] ####[facility] (BEAKER)[address] [place] [address] Eosinophils (Bld) [#/Vol] 0.22 10*3/uL Normal 0.00-0.50 [facility] Comment on above: Performed By: #### L [id number] ####[facility] ([facility]AKER)[address] [place] [address] Eosinophils/100 WBC (Bld) 2.4 % Normal 0.0-6.0 [facility] Comment on above: Performed By: #### L [id number] ####[facility] ([facility]ER)[address] [place] [address] Erythrocyte distribution width (RBC) [Ratio] 18.4 % High 11.5-15.0 [facility] Comment on above: Performed By: #### L [id number] ####[facility] ([facility]ER)[address] [place] [address] ERYTHROCYTE MEAN CORPUSCULAR HEMOGLOBIN CONCENTRATION (G/DL) BY AUTOMATED 29.2 g/dL Low 32.0-35.0 [facility] Comment on above: Performed By: #### L [id number] ####[facility] ([facility]ER)[address] [place] [address] Hematocrit (Bld) [Volume fraction] 31.2 % Low 36.0-48.0 [facility] Comment on above: Performed By: #### L [id number] ####[facility] ([facility]AKER)[address] [place] [address] Hemoglobin (Bld) [Mass/Vol] 9.1 g/dL Low 12.0-15.0 [facility] Comment on above: Performed By: #### L [id number] ####[facility] ([facility]ER)[address] [place] [address] Immature granulocytes (Bld) [#/Vol] 0.13 10*3/uL Normal 0.00-0.20 [facility] Comment on above: Performed By: #### L [id number] ####[facility] ([facility]AKER)[address] [place] [address] Immature granulocytes/100 WBC (Bld) 1.4 % High 0.0-1.0 [facility] Comment on above: Performed By: #### L [id number] ####[facility] ([facility])[address] [place] [address] Lymphocytes (Bld) [#/Vol] 1.35 10*3/uL Normal 1.20-4.00 [facility] Comment on above: Performed By: #### L [id number] ####[facility] ([facility])[address] [place] [address] Lymphocytes/100 WBC (Bld) 14.5 % Low 20.0-45.0 [facility] Comment on above: Performed By: #### L [id number] ####[facility] ([facility])[address] [place] [address] MCH (RBC) [Entitic mass] 22.0 pg Low 27.0-33.0 [facility] Comment on above: Performed By: #### L [id number] ####[facility] ([facility])[address] [place] [address] MCV (RBC) [Entitic vol] 75.4 fL Low 82.0-98.0 [facility] Comment on above: Performed By: #### L [id number] ####[facility] ([facility])[address] [place] [address] Monocytes (Bld) [#/Vol] 0.82 10*3/uL Normal 0.10-1.00 [facility] Comment on above: Performed By: #### L [id number] ####[facility] ([facility]ER)[address] [place] [address] Monocytes/100 WBC (Bld) 8.8 % Normal 5.0-12.0 [facility] Comment on above: Performed By: #### L [id number] ####[facility] ([facility]ER)[address] [place] [address] Neutrophils (Bld) [#/Vol] 6.75 10*3/uL Normal 1.60-7.60 [facility] Comment on above: Performed By: #### L [id number] ####[facility] ([facility])[address] [address] Neutrophils/100 WBC (Bld) 72.5 % High 40.0-72.0 [facility] Comment on above: Performed By: #### L [id number] ####[facility] ([facility])[address] [address] NRBC (PER 100 WBCS) BY AUTOMATED COUNT 0.0 % Normal 0 [facility] Comment on above: Performed By: #### L [id number] ####[facility] ([facility])[address] [address] PLATELETS (10*3/UL) IN BLOOD AUTOMATED COUNT 340 10*3/uL Normal 150-400 [facility] Comment on above: Performed By: #### L [id number] ####[facility] ([facility])[address] [place] [address] RBC (Bld) [#/Vol] 4.14 10*6/uL Normal 3.80-5.00 [facility] Comment on above: Performed By: #### L [id number] ####[facility] ([facility])[address] [address] WBC (Bld) [#/Vol] 9.31 10*3/uL Normal 4.00-10.60 [facility] Comment on above: Performed By: #### L [id number] ####[facility] ([facility])[address] [place] [address] COMPREHENSIVE METABOLIC PANE Robbie 03-13-2024 Albumin [Mass/Vol] 3.2 g/dL Low 3.5-5.[address] [facility] Comment on above: Performed By: #### L [id number] ####[facility] ([facility])[address] [place] [address] ALP [Catalytic activity/Vol] 73 U/L Normal 34-104 [facility] Comment on above: Performed By: #### L [id number] ####[facility] ([facility]ER)[address] [place] [address] ALT [Catalytic activity/Vol] 91 U/L High 7-52 [facility] Comment on above: Performed By: #### L [id number] ####[facility] (BE[facility]ER)[address] [place] [address] Anion gap [Moles/Vol] 12 mmol/L Normal 7-20 [facility] Comment on above: Performed By: #### L [id number] ####[facility] (BEAKER)[address] [place] [address] AST [Catalytic activity/Vol] 22 U/L Normal 13-39 [facility] Comment on above: Performed By: #### L [id number] ####[facility] (BEAKER)[address] [place] [address] Bilirubin [Mass/Vol] 0.5 mg/dL Normal 0.3-1.0 [facility] Comment on above: Performed By: #### L [id number] ####[facility] ([facility]ER)[address] [place] [address] Calcium [Mass/Vol] 8.3 mg/dL Low 8.6-10.[address] [facility] Comment on above: Performed By: #### L [id number] ####[facility] ([facility]ER)[address] [place] [address] Chloride [Moles/Vol] 93 mmol/L Low 98-107 [facility] Comment on above: Performed By: #### L [id number] ####[facility] ([facility]ER)[address] [place] [address] CO2 [Moles/Vol] 31 mmol/L Normal 21-31 [facility] Comment on above: Performed By: #### L [id number] ####[facility] ([facility]ER)[address] [place] [address] Creatinine [Mass/Vol] 0.73 mg/dL Normal 0.60-1.20 [facility] Comment on above: Performed By: #### L [id number] ####[facility] ([facility])[address] [place] [address] GLOMERULAR FILTRATION RATE ML/MIN/1.73 SQ M.PREDICTED 80.0 mL/min/1.73m*2 Normal >60.0 [facility] Comment on above: Result Comment: [facility]???s estimated glomerular filtration rate (eGFR) will [...] of individuals. Performed By: #### L [id number] ####[facility] ([facility])[address] [place] [address] Glucose [Mass/Vol] 161 mg/dL High 70-[address] [facility] Comment on above: Performed By: #### L [id number] ####[facility] ([facility])[address] [place] [address] Potassium [Moles/Vol] 3.1 mmol/L Low 3.5-5.1 [facility] Comment on above: Performed By: #### L [id number] ####[facility] ([facility])[address] [place] [address] Protein [Mass/Vol] 6.5 g/dL Normal 6.0-8.[address] [facility] Comment on above: Performed By: #### L [id number] ####[facility] ([facility])[address] [place] [address] Sodium [Moles/Vol] 133 mmol/L Low 136-[address] [facility] Comment on above: Performed By: #### L [id number] ####[facility] (BEAKER)[address] [place] [address] Urea nitrogen [Mass/Vol] 18 mg/dL Normal 7-25 [facility] Comment on above: Performed By: #### L [id number] ####[facility] ([facility])[address] [facility] [place] [address] UREA NITROGEN/CREATININ E (MASS RATIO) IN SER/PLAS 24.7 Normal [facility] Comment on above: Performed By: #### L [id number] ####[facility] ([facility])[address] [facility] [place] [address] HPon 03-13-2024 HP Normal [facility] NON-PRINCIPAL ELECTRICAL ENGINEER CYTOLOGY - CELLULAR EXAMon 03-13-2024 LAB AP CASE REPORT Normal [facility] Comment on above: Result Comment: Non- gynecologic Cytology Case: [id number] Provider: Jami Su MD Collected: 03/13/2024 1229Ordering [facility] Received: 03/14/2024 0805Pathologist: STEVEN Umañapecimen: Peritoneal fluid Performed By: #### L [id number] ####[facility] ([facility])[address] [place] [address] LAB AP CLINICAL INFORMATION Normal [facility] Comment on above: Result Comment: Post -Op DiagnosesNo Dx found. Performed By: #### L [id number] ####[facility] ([facility])[address] [place] [address] LAB AP GROSS DESCRIPTION Normal [facility] Comment on above: Result Comment: 300 mL cloudy, red fluid. Performed By: #### L [id number] ####[facility] ([facility])[address] [place] [address] LAB AP REPORT FINAL DIAGNOSIS NARRATIVE Normal [facility] Comment on above: Result Comment: A. P eritoneal fluid: - Negative for malignancy. - Marked acute inflammation. Performed By: #### L [id number] ####[facility] ([facility])[address] [place] [address] NURSNOTEon 03-13-2024 NURSNOTE Normal [facility] PATHOLOGY REVIEWon PATHOLOGY REVIEW Reviewed. Normal [facility] Comment on above: Result Comment: Elec tronically signed by Harjit Castellon MD on 03/14/24 at 10:44 AM. Performed By: #### L [id number] ####[facility] ([facility])[address] [place] [address] POCT GLUCOSE METER UNSOLICIT ED RESULTSon 03-13-2024 Glucose [Mass/Vol] 131 mg/dL High 70-[address] [facility] Comment on above: Order Comment: Waive d Testing in the ED is performed under the ED CLIA certificate #[id number]. Result Comment: [email or web address] Performed By: #### L [id number] ####[facility] ([employer])[address] [place] [address] Glucose [Mass/Vol] 110 mg/dL High 70-[address] [facility] Comment on above: Order Comment: Waive d Testing in the ED is performed under the ED CLIA certificate #[id number]. Result Comment: [email or web address] Performed By: #### L [id number] ####[facility] ([employer])[address] [place] [address] Glucose [Mass/Vol] 120 mg/dL High 70-[address] [facility] Comment on above: Order Comment: Waive d Testing in the ED is performed under the ED CLIA certificate #[id number]. Result Comment: [email or web address] Performed By: #### L [id number] ####[facility] ([employer])[address] [place] [address] PROTIME-INRon 03-13-2024 INR IN PPP BY COAGULATION ASSAY 1.48 High 0.90-1.10 [facility] Comment on above: Result Comment: ACCC [...] CHEST 1995;[id number]. Performed By: #### L [id number] ####[facility] [employer])[address] [place] [address] PROTHROMBIN TIME (PT) IN PPP BY COAGULATION ASSAY 17.8 Seconds High 12.3-14.8 [facility] Comment on above: Performed By: #### L [id number] ####[facility] ([employer])[address] [place] [address] 30on 03-12-2024 30 Normal [facility] 30 Normal [facility] 30 Normal [facility] CBC WITH AUTO DIFFERENTIALon 03-12-2024 Basophils (Bld) [#/Vol] 0.05 10*3/uL Normal 0.00-0.20 [facility] Comment on above: Performed By: #### L [id number] ####[facility] [employer])[address] [place] [address] Basophils/100 WBC (Bld) 0.5 % Normal 0.0-1.0 [facility] Comment on above: Performed By: #### L [id number] ####[facility] [employer])[address] [place] [address] Eosinophils (Bld) [#/Vol] 0.28 10*3/uL Normal 0.00-0.50 [facility] Comment on above: Performed By: #### L [id number] ####[facility] (BEAKER)[address] [place] [address] Eosinophils/100 WBC (Bld) 3.1 % Normal 0.0-6.0 [facility] Comment on above: Performed By: #### L [id number] ####[facility] ([facility])[address] [place] [address] Erythrocyte distribution width (RBC) [Ratio] 18.3 % High 11.5-15.0 [facility] Comment on above: Performed By: #### L [id number] ####[facility] ([facility])[address] [place] [address] ERYTHROCYTE MEAN CORPUSCULAR HEMOGLOBIN CONCENTRATION (G/DL) BY AUTOMATED 29.3 g/dL Low 32.0-35.0 [facility] Comment on above: Performed By: #### L [id number] ####[facility] ([facility])[address] [place] [address] Hematocrit (Bld) [Volume fraction] 29.4 % Low 36.0-48.0 [facility] Comment on above: Performed By: #### L [id number] ####[facility] ([facility])[address] [place] [address] Hemoglobin (Bld) [Mass/Vol] 8.6 g/dL Low 12.0-15.0 [facility] Comment on above: Performed By: #### L [id number] ####[facility] ([facility])[address] [place] [address] Immature granulocytes (Bld) [#/Vol] 0.08 10*3/uL Normal 0.00-0.20 [facility] Comment on above: Performed By: #### L [id number] ####[facility] (BEAKER)[address] [place] [address] Immature granulocytes/100 WBC (Bld) 0.9 % Normal 0.0-1.0 [facility] Comment on above: Performed By: #### L [id number] ####[facility] (BEAKER)[address] [place] [address] Lymphocytes (Bld) [#/Vol] 2.23 10*3/uL Normal 1.20-4.00 [facility] Comment on above: Performed By: #### L [id number] ####[facility] (BEAKER)[address] [place] [address] Lymphocytes/100 WBC (Bld) 24.5 % Normal 20.0-45.0 [facility] Comment on above: Performed By: #### L [id number] ####[facility] (BEAKER)[address] [place] [address] MCH (RBC) [Entitic mass] 22.3 pg Low 27.0-33.0 [facility] Comment on above: Performed By: #### L [id number] ####[facility] (BEAKER)[address] [place] [address] MCV (RBC) [Entitic vol] 76.2 fL Low 82.0-98.0 [facility] Comment on above: Performed By: #### L [id number] ####[facility] (BEAKER)[address] [place] [address] Monocytes (Bld) [#/Vol] 1.01 10*3/uL High 0.10-1.00 [facility] Comment on above: Performed By: #### L [id number] ####[facility] (BEAKER)[address] [place] [address] Monocytes/100 WBC (Bld) 11.1 % Normal 5.0-12.0 [facility] Comment on above: Performed By: #### L [id number] ####[facility] (BEAKER)[address] [place] [address] Neutrophils (Bld) [#/Vol] 5.45 10*3/uL Normal 1.60-7.60 [facility] Comment on above: Performed By: #### L [id number] ####[facility] (BEAKER)[address] [place] [address] Neutrophils/100 WBC (Bld) 59.9 % Normal 40.0-72.0 [facility] Comment on above: Performed By: #### L [id number] ####[facility] ([facility])[address] [place] [address] NRBC (PER 100 WBCS) BY AUTOMATED COUNT 0.0 % Normal 0 [facility] Comment on above: Performed By: #### L [id number] ####[facility] ([facility])[address] [place] [address] PLATELETS (10*3/UL) IN BLOOD AUTOMATED COUNT 363 10*3/uL Normal 150-400 [facility] Comment on above: Performed By: #### L [id number] ####[facility] ([facility])[address] [place] [address] RBC (Bld) [#/Vol] 3.86 10*6/uL Normal 3.80-5.00 [facility] Comment on above: Performed By: #### L [id number] ####[facility] ([facility])[address] [place] [address] WBC (Bld) [#/Vol] 9.10 10*3/uL Normal 4.00-10.60 [facility] Comment on above: Performed By: #### L [id number] ####[facility] ([facility])[address] [place] [address] COMPREHENSIVE METABOLIC PANE Robbie 03-12-2024 Albumin [Mass/Vol] 3.0 g/dL Low 3.5-5.[address] [facility] Comment on above: Performed By: #### L [id number] ####[facility] ([facility])[address] [place] [address] ALP [Catalytic activity/Vol] 67 U/L Normal 34-104 [facility] Comment on above: Performed By: #### L [id number] ####[facility] ([facility])[address] [place] [address] ALT [Catalytic activity/Vol] 138 U/L High 7-52 [facility] Comment on above: Performed By: #### L [id number] ####[facility] ([facility])[address] [place] [address] Anion gap [Moles/Vol] 10 mmol/L Normal 7-20 [facility] Comment on above: Performed By: #### L [id number] ####[facility] ([facility])[address] [place] [address] AST [Catalytic activity/Vol] 43 U/L High 13-39 [facility] Comment on above: Performed By: #### L [id number] ####[facility] ([facility])[address] [place] [address] Bilirubin [Mass/Vol] 0.5 mg/dL Normal 0.3-1.0 [facility] Comment on above: Performed By: #### L [id number] ####[facility] ([facility])[address] [place] [address] Calcium [Mass/Vol] 8.3 mg/dL Low 8.6-10.[address] [facility] Comment on above: Performed By: #### L [id number] ####[facility] ([facility])[address] [place] [address] Chloride [Moles/Vol] 94 mmol/L Low 98-107 [facility] Comment on above: Performed By: #### L [id number] ####[facility] ([facility])[address] [place] [address] CO2 [Moles/Vol] 33 mmol/L High 21-31 [facility] Comment on above: Performed By: #### L [id number] ####[facility] ([facility])[address] [place] [address] Creatinine [Mass/Vol] 0.75 mg/dL Normal 0.60-1.20 [facility] Comment on above: Performed By: #### L [id number] ####[facility] ([facility])[address] [place] [address] GLOMERULAR FILTRATION RATE ML/MIN/1.73 SQ M.PREDICTED 77.5 mL/min/1.73m*2 Normal >60.0 [facility] Comment on above: Result Comment: [facility]???s estimated glomerular filtration rate (eGFR) will [...] of individuals. Performed By: #### L [id number] ####[facility] ([facility])[address] [place] [address] Glucose [Mass/Vol] 114 mg/dL High 70-[address] [facility] Comment on above: Performed By: #### L [id number] ####[facility] ([facility])[address] [place] [address] Potassium [Moles/Vol] 3.6 mmol/L Normal 3.5-5.1 [facility] Comment on above: Performed By: #### L [id number] ####[facility] ([facility])[address] [place] [address] Protein [Mass/Vol] 6.3 g/dL Normal 6.0-8.[address] [facility] Comment on above: Performed By: #### L [id number] ####[facility] ([facility])[address] [place] [address] Sodium [Moles/Vol] 133 mmol/L Low 136-[address] [facility] Comment on above: Performed By: #### L [id number] ####[facility] ([facility])[address] [place] [address] Urea nitrogen [Mass/Vol] 23 mg/dL Normal 7-25 [facility] Comment on above: Performed By: #### L [id number] ####[facility] ([facility])[address] [place] [address] UREA NITROGEN/CREATININ E (MASS RATIO) IN SER/PLAS 30.7 [facility] Comment on above: Performed By: #### L [id number] ####[facility] ([facility])[address] [place] [address] CONSULTon 03-12-2024 CONSULT Normal [facility] POCT GLUCOSE METER UNSOLICIT ED RESULTSon 03-12-2024 Glucose [Mass/Vol] 143 mg/dL High 70-[address] [facility] Comment on above: Order Comment: Waive d Testing in the ED is performed under the ED CLIA certificate #[id number]. Result Comment: [email or web address] Performed By: #### L [id number] ####[facility] ([facility])[address] [place] [address] Glucose [Mass/Vol] 126 mg/dL High 70-[address] [facility] Comment on above: Order Comment: Waive d Testing in the ED is performed under the ED CLIA certificate #[id number]. Result Comment: [email or web address] Performed By: #### L [id number] ####[facility] ([facility])[address] [place] [address] Glucose [Mass/Vol] 150 mg/dL High 70-[address] [facility] Comment on above: Order Comment: Waive d Testing in the ED is performed under the ED CLIA certificate #[id number]. Result Comment: [email or web address] Performed By: #### L [id number] ####[facility] ([facility])[address] [place] [address] Glucose [Mass/Vol] 113 mg/dL High 70-[address] [facility] Comment on above: Order Comment: Waive d Testing in the ED is performed under the ED CLIA certificate #[id number]. Result Comment: [email or web address] [email or web address] Performed By: #### L [id number] ####[facility] ([facility])[address] [place] [address] Glucose [Mass/Vol] 141 mg/dL High 70-[address] [facility] Comment on above: Order Comment: Waive d Testing in the ED is performed under the ED CLIA certificate #[id number]. Result Comment: [email or web address] [email or web address] Performed By: #### L [id number] ####[facility] ([facility])[address] [place] [address] SEDIMENTATION RATEon 024 SEDIMENTATION RATE, ERYTHROCYTE 60 mm/hr High <=20 [facility] Comment on above: Performed By: #### L [id number] ####[facility] ([facility])[address] [place] [address] 30on 03-11-2024 30 Normal [facility] 30 Normal [facility] CBC WITH AUTO DIFFERENTIALon 03-11-2024 Basophils (Bld) [#/Vol] 0.03 10*3/uL Normal 0.00-0.20 [facility] Comment on above: Performed By: #### L [id number] ####[facility] ([facility])[address] [place] [address] Basophils/100 WBC (Bld) 0.3 % Normal 0.0-1.0 [facility] Comment on above: Performed By: #### L [id number] ####[facility] ([facility])[address] [place] [address] Eosinophils (Bld) [#/Vol] 0.33 10*3/uL Normal 0.00-0.50 [facility] Comment on above: Performed By: #### L [id number] ####[facility] ([facility])[address] [place] [address] Eosinophils/100 WBC (Bld) 3.5 % Normal 0.0-6.0 [facility] Comment on above: Performed By: #### L [id number] ####[facility] ([facility])[address] [place] [address] Erythrocyte distribution width (RBC) [Ratio] 18.2 % High 11.5-15.0 [facility] Comment on above: Performed By: #### L [id number] ####[facility] ([facility])[address] [place] [address] ERYTHROCYTE MEAN CORPUSCULAR HEMOGLOBIN CONCENTRATION (G/DL) BY AUTOMATED 29.9 g/dL Low 32.0-35.0 [facility] Comment on above: Performed By: #### L [id number] ####[facility] ([facility])[address] [place] [address] Hematocrit (Bld) [Volume fraction] 28.4 % Low 36.0-48.0 [facility] Comment on above: Performed By: #### L [id number] ####[facility] ([facility])[address] [place] [address] Hemoglobin (Bld) [Mass/Vol] 8.5 g/dL Low 12.0-15.0 [facility] Comment on above: Performed By: #### L [id number] ####[facility] ([facility])[address] [place] [address] Immature granulocytes (Bld) [#/Vol] 0.07 10*3/uL Normal 0.00-0.20 [facility] Comment on above: Performed By: #### L [id number] ####[facility] ([facility])[address] [place] [address] Immature granulocytes/100 WBC (Bld) 0.7 % Normal 0.0-1.0 [facility] Comment on above: Performed By: #### L [id number] ####[facility] ([facility])[address] [place] [address] Lymphocytes (Bld) [#/Vol] 1.81 10*3/uL Normal 1.20-4.00 [facility] Comment on above: Performed By: #### L [id number] ####[facility] ([facility])[address] [place] [address] Lymphocytes/100 WBC (Bld) 19.1 % Low 20.0-45.0 [facility] Comment on above: Performed By: #### L [id number] ####[facility] ([facility])[address] [place] [address] MCH (RBC) [Entitic mass] 22.0 pg Low 27.0-33.0 [facility] Comment on above: Performed By: #### L [id number] ####[facility] ([facility])[address] [place] [address] MCV (RBC) [Entitic vol] 73.6 fL Low 82.0-98.0 [facility] Comment on above: Performed By: #### L [id number] ####[facility] ([facility])[address] [place] [address] Monocytes (Bld) [#/Vol] 1.25 10*3/uL High 0.10-1.00 [facility] Comment on above: Performed By: #### L [id number] ####[facility] ([facility])[address] [place] [address] Monocytes/100 WBC (Bld) 13.2 % High 5.0-12.0 [facility] Comment on above: Performed By: #### L [id number] ####[facility] ([facility])[address] [place] [address] Neutrophils (Bld) [#/Vol] 6.01 10*3/uL Normal 1.60-7.60 [facility] Comment on above: Performed By: #### L [id number] ####[facility] ([facility])[address] [place] [address] Neutrophils/100 WBC (Bld) 63.2 % Normal 40.0-72.0 [facility] Comment on above: Performed By: #### L [id number] ####[facility] ([facility])[address] [place] [address] NRBC (PER 100 WBCS) BY AUTOMATED COUNT 0.0 % Normal 0 [facility] Comment on above: Performed By: #### L [id number] ####[facility] ([facility])[address] [place] [address] PLATELETS (10*3/UL) IN BLOOD AUTOMATED COUNT 317 10*3/uL Normal 150-400 [facility] Comment on above: Performed By: #### L [id number] ####[facility] ([facility])[address] [place] [address] RBC (Bld) [#/Vol] 3.86 10*6/uL Normal 3.80-5.00 [facility] Comment on above: Performed By: #### L [id number] ####[facility] ([facility])[address] [place] [address] WBC (Bld) [#/Vol] 9.50 10*3/uL Normal 4.00-10.60 [facility] Comment on above: Performed By: #### L [id number] ####[facility] ([facility])[address] [place] [address] COMPREHENSIVE METABOLIC PANE Robbie 03-11-2024 Albumin [Mass/Vol] 3.0 g/dL Low 3.5-5.[address] [facility] Comment on above: Performed By: #### L [id number] ####[facility] ([facility])[address] [place] [address] ALP [Catalytic activity/Vol] 68 U/L Normal 34-104 [facility] Comment on above: Performed By: #### L [id number] ####[facility] ([facility])[address] [place] [address] ALT [Catalytic activity/Vol] 179 U/L High 7-52 [facility] Comment on above: Performed By: #### L [id number] ####[facility] ([facility])[address] [place] [address] Anion gap [Moles/Vol] 11 mmol/L Normal 7-20 [facility] Comment on above: Performed By: #### L [id number] ####[facility] ([facility])[address] [place] [address] AST [Catalytic activity/Vol] 74 U/L High 13-39 [facility] Comment on above: Performed By: #### L [id number] ####[facility] ([facility])[address] [place] [address] Bilirubin [Mass/Vol] 0.4 mg/dL Normal 0.3-1.0 [facility] Comment on above: Performed By: #### L [id number] ####[facility] ([facility])[address] [place] [address] Calcium [Mass/Vol] 8.2 mg/dL Low 8.6-10.[address] [facility] Comment on above: Performed By: #### L [id number] ####[facility] ([facility])[address] [place] [address] Chloride [Moles/Vol] 92 mmol/L Low 98-107 [facility] Comment on above: Performed By: #### L [id number] ####[facility] ([facility])[address] [place] [address] CO2 [Moles/Vol] 33 mmol/L High 21-31 [facility] Comment on above: Performed By: #### L [id number] ####[facility] ([facility])[address] [place] [address] Creatinine [Mass/Vol] 0.74 mg/dL Normal 0.60-1.20 [facility] Comment on above: Performed By: #### L [id number] ####[facility] ([facility])[address] [place] [address] GLOMERULAR FILTRATION RATE ML/MIN/1.73 SQ M.PREDICTED 78.7 mL/min/1.73m*2 Normal >60.0 [facility] Comment on above: Result Comment: [facility]???s estimated glomerular filtration rate (eGFR) will [...] of individuals. Performed By: #### L [id number] ####[facility] ([facility])[address] [place] [address] Glucose [Mass/Vol] 91 mg/dL Normal 70-[address] [facility] Comment on above: Performed By: #### L [id number] ####[facility] ([facility])[address] [place] [address] Potassium [Moles/Vol] 3.0 mmol/L Low 3.5-5.1 [facility] Comment on above: Performed By: #### L [id number] ####[facility] ([facility])[address] [place] [address] Protein [Mass/Vol] 6.3 g/dL Normal 6.0-8.[address] [facility] Comment on above: Performed By: #### L [id number] ####[facility] ([facility])[address] [place] [address] Sodium [Moles/Vol] 133 mmol/L Low 136-[address] [facility] Comment on above: Performed By: #### L [id number] ####[facility] ([facility])[address] [place] [address] Urea nitrogen [Mass/Vol] 26 mg/dL High 7-25 [facility] Comment on above: Performed By: #### L [id number] ####[facility] ([facility])[address] [place] [address] UREA NITROGEN/CREATININ E (MASS RATIO) IN SER/PLAS 35.1 Normal [facility] Comment on above: Performed By: #### L [id number] ####[facility] ([facility])[address] [place] [address] HEMOGLOBIN AND HEMATOCRIT, B LOODon 03-11-2024 Hematocrit (Bld) [Volume fraction] 28.2 % Low 36.0-48.0 [facility] Comment on above: Performed By: #### L [id number] ####[facility] ([facility])[address] [place] [address] Hemoglobin (Bld) [Mass/Vol] 8.6 g/dL Low 12.0-15.0 [facility] Comment on above: Performed By: #### L [id number] ####[facility] ([facility])[address] [place] [address] Hematocrit (Bld) [Volume fraction] 29.4 % Low 36.0-48.0 [facility] Comment on above: Performed By: #### L [id number] ####[facility] ([facility])[address] [place] [address] Hemoglobin (Bld) [Mass/Vol] 8.6 g/dL Low 12.0-15.0 [facility] Comment on above: Performed By: #### L [id number] ####[facility] ([facility])[address] [place] [address] POCT GLUCOSE METER UNSOLICIT ED RESULTSon 03-11-2024 Glucose [Mass/Vol] 129 mg/dL High 70-[address] [facility] Comment on above: Order Comment: Waive d Testing in the ED is performed under the ED CLIA certificate #[id number]. Result Comment: [email or web address] Performed By: #### L [id number] ####[facility] ([facility])[address] [place] [address] Glucose [Mass/Vol] 175 mg/dL High 70-[address] [facility] Comment on above: Order Comment: Waive d Testing in the ED is performed under the ED CLIA certificate #[id number]. Result Comment: [email or web address] Performed By: #### L [id number] ####[facility] ([facility])[address] [place] [address] Glucose [Mass/Vol] 120 mg/dL High 70-[address] [facility] Comment on above: Order Comment: Waive d Testing in the ED is performed under the ED CLIA certificate #[id number]. Result Comment: [email or web address] Performed By: #### L [id number] ####[facility] ([facility])[address] [place] [address] Glucose [Mass/Vol] 116 mg/dL High 70-[address] [facility] Comment on above: Order Comment: Waive d Testing in the ED is performed under the ED CLIA certificate #[id number]. Result Comment: [email or web address] Performed By: #### L [id number] ####[facility] ([facility])[address] [place] [address] 30on 03-10-2024 30 Normal [facility] 30 Normal [facility] CBC WITH AUTO DIFFERENTIALon 03-10-2024 Basophils (Bld) [#/Vol] 0.01 10*3/uL Normal 0.00-0.20 [facility] Comment on above: Performed By: #### L [id number] ####[facility] ([facility])[address] [place] [address] Basophils/100 WBC (Bld) 0.1 % Normal 0.0-1.0 [facility] Comment on above: Performed By: #### L [id number] ####[facility] ([facility])[address] [place] [address] Eosinophils (Bld) [#/Vol] 0.13 10*3/uL Normal 0.00-0.50 [facility] Comment on above: Performed By: #### L [id number] ####[facility] ([facility])[address] [place] [address] Eosinophils/100 WBC (Bld) 1.2 % Normal 0.0-6.0 [facility] Comment on above: Performed By: #### L [id number] ####[facility] ([facility])[address] [place] [address] Erythrocyte distribution width (RBC) [Ratio] 18.3 % High 11.5-15.0 [facility] Comment on above: Performed By: #### L [id number] ####[facility] ([facility])[address] [place] [address] ERYTHROCYTE MEAN CORPUSCULAR HEMOGLOBIN CONCENTRATION (G/DL) BY AUTOMATED 29.6 g/dL Low 32.0-35.0 [facility] Comment on above: Performed By: #### L [id number] ####[facility] ([facility])[address] [place] [address] Hematocrit (Bld) [Volume fraction] 27.7 % Low 36.0-48.0 [facility] Comment on above: Performed By: #### L [id number] ####[facility] ([facility])[address] [place] [address] Hemoglobin (Bld) [Mass/Vol] 8.2 g/dL Low 12.0-15.0 [facility] Comment on above: Performed By: #### L [id number] ####[facility] ([facility])[address] [place] [address] Immature granulocytes (Bld) [#/Vol] 0.08 10*3/uL Normal 0.00-0.20 [facility] Comment on above: Performed By: #### L [id number] ####[facility] ([facility])[address] [place] [address] Immature granulocytes/100 WBC (Bld) 0.7 % Normal 0.0-1.0 [facility] Comment on above: Performed By: #### L [id number] ####[facility] ([facility])[address] [place] [address] Lymphocytes (Bld) [#/Vol] 1.57 10*3/uL Normal 1.20-4.00 [facility] Comment on above: Performed By: #### L [id number] ####[facility] ([facility])[address] [place] [address] Lymphocytes/100 WBC (Bld) 14.4 % Low 20.0-45.0 [facility] Comment on above: Performed By: #### L [id number] ####[facility] ([facility])[address] [place] [address] MCH (RBC) [Entitic mass] 22.3 pg Low 27.0-33.0 [facility] Comment on above: Performed By: #### L [id number] ####[facility] ([facility])[address] [place] [address] MCV (RBC) [Entitic vol] 75.5 fL Low 82.0-98.0 [facility] Comment on above: Performed By: #### L [id number] ####[facility] ([facility])[address] [place] [address] Monocytes (Bld) [#/Vol] 1.35 10*3/uL High 0.10-1.00 [facility] Comment on above: Performed By: #### L [id number] ####[facility] ([facility])[address] [place] [address] Monocytes/100 WBC (Bld) 12.4 % High 5.0-12.0 [facility] Comment on above: Performed By: #### L [id number] ####[facility] ([facility])[address] [place] [address] Neutrophils (Bld) [#/Vol] 7.74 10*3/uL High 1.60-7.60 [facility] Comment on above: Performed By: #### L [id number] ####[facility] ([facility])[address] [place] [address] Neutrophils/100 WBC (Bld) 71.2 % Normal 40.0-72.0 [facility] Comment on above: Performed By: #### L [id number] ####[facility] ([facility])[address] [place] [address] NRBC (PER 100 WBCS) BY AUTOMATED COUNT 0.0 % Normal 0 [facility] Comment on above: Performed By: #### L [id number] ####[facility] ([facility])[address] [place] [address] PLATELETS (10*3/UL) IN BLOOD AUTOMATED COUNT 356 10*3/uL Normal 150-400 [facility] Comment on above: Performed By: #### L [id number] ####[facility] ([facility])[address] [place] [address] RBC (Bld) [#/Vol] 3.67 10*6/uL Low 3.80-5.00 [facility] Comment on above: Performed By: #### L [id number] ####[facility] ([facility])[address] [place] [address] WBC (Bld) [#/Vol] 10.88 10*3/uL High 4.00-10.60 [facility] Comment on above: Performed By: #### L [id number] ####[facility] ([facility])[address] [place] [address] COMPREHENSIVE METABOLIC PANE Robbie 03-10-2024 Albumin [Mass/Vol] 3.1 g/dL Low 3.5-5.[address] [facility] Comment on above: Performed By: #### L [id number] ####[facility] ([facility])[address] [place] [address] ALP [Catalytic activity/Vol] 80 U/L Normal 34-104 [facility] Comment on above: Performed By: #### L [id number] ####[facility] ([facility])[address] [place] [address] ALT [Catalytic activity/Vol] 208 U/L High 7-52 [facility] Comment on above: Performed By: #### L [id number] ####[facility] ([facility])[address] [place] [address] Anion gap [Moles/Vol] 9 mmol/L Normal 7-20 [facility] Comment on above: Performed By: #### L [id number] ####[facility] ([facility])[address] [place] [address] AST [Catalytic activity/Vol] 88 U/L High 13-39 [facility] Comment on above: Performed By: #### L [id number] ####[facility] ([facility])[address] [place] [address] Bilirubin [Mass/Vol] 0.3 mg/dL Normal 0.3-1.0 [facility] Comment on above: Performed By: #### L [id number] ####[facility] ([facility])[address] [place] [address] Calcium [Mass/Vol] 8.6 mg/dL Normal 8.6-10.[address] [facility] Comment on above: Performed By: #### L [id number] ####[facility] ([facility])[address] [place] [address] Chloride [Moles/Vol] 94 mmol/L Low 98-107 [facility] Comment on above: Performed By: #### L [id number] ####[facility] ([facility])[address] [place] [address] CO2 [Moles/Vol] 35 mmol/L High 21-31 [facility] Comment on above: Performed By: #### L [id number] ####[facility] ([facility])[address] [place] [address] Creatinine [Mass/Vol] 0.93 mg/dL Normal 0.60-1.20 [facility] Comment on above: Performed By: #### L [id number] ####[facility] ([facility])[address] [place] [address] GLOMERULAR FILTRATION RATE ML/MIN/1.73 SQ M.PREDICTED 59.9 mL/min/1.73m*2 Low >60.0 [facility] Comment on above: Result Comment: [facility]???s estimated glomerular filtration rate (eGFR) will [...] of individuals. Performed By: #### L [id number] ####[facility] ([facility])[address] [place] [address] Glucose [Mass/Vol] 92 mg/dL Normal 70-[address] [facility] Comment on above: Performed By: #### L [id number] ####[facility] ([facility])[address] [place] [address] Potassium [Moles/Vol] 3.9 mmol/L Normal 3.5-5.1 [facility] Comment on above: Performed By: #### L [id number] ####[facility] ([facility])[address] [place] [address] Protein [Mass/Vol] 6.6 g/dL Normal 6.0-8.[address] [facility] Comment on above: Performed By: #### L [id number] ####[facility] ([facility])[address] [place] [address] Sodium [Moles/Vol] 134 mmol/L Low 136-[address] [facility] Comment on above: Performed By: #### L [id number] ####[facility] ([facility])[address] [place] [address] Urea nitrogen [Mass/Vol] 34 mg/dL High 7-25 [facility] Comment on above: Performed By: #### L [id number] ####[facility] ([facility])[address] [place] [address] UREA NITROGEN/CREATININ E (MASS RATIO) IN SER/PLAS 36.6 Normal [facility] Comment on above: Performed By: #### L [id number] ####[facility] ([facility])[address] [place] [address] CONSULTon 03-10-2024 CONSULT Normal [facility] CONSULT Normal [facility] CT ABDOMEN PELVIS W IV CONTR Jennifer 03-10-2024 CT ABDOMEN PELVIS W IV CONTRAST Invalid Interpretation Code [facility] HEMOGLOBIN AND HEMATOCRIT, B LOODon 03-10-2024 Hematocrit (Bld) [Volume fraction] 27.8 % Low 36.0-48.0 [facility] Comment on above: Performed By: #### L [id number] ####[facility] ([facility])[address] [place] [address] Hemoglobin (Bld) [Mass/Vol] 8.4 g/dL Low 12.0-15.0 [facility] Comment on above: Performed By: #### L [id number] ####[facility] ([facility])[address] [place] [address] POCT GLUCOSE METER UNSOLICIT ED RESULTSon 03-10-2024 Glucose [Mass/Vol] 155 mg/dL High 70-[address] [facility] Comment on above: Order Comment: Waive d Testing in the ED is performed under the ED CLIA certificate #[id number]. Result Comment: shod [email or web address] Performed By: #### L [id number] ####[facility] ([facility])[address] [place] [address] Glucose [Mass/Vol] 114 mg/dL High 70-[address] [facility] Comment on above: Order Comment: Waive d Testing in the ED is performed under the ED CLIA certificate #[id number]. Result Comment: shod ges4 Performed By: #### L [id number] ####[facility] ([facility])[address] [place] [address] Glucose [Mass/Vol] 110 mg/dL High 70-[address] [facility] Comment on above: Order Comment: Waive d Testing in the ED is performed under the ED CLIA certificate #[id number]. Result Comment: shod ges4 Performed By: #### L [id number] ####[facility] ([facility])[address] [place] [address] Glucose [Mass/Vol] 113 mg/dL High 70-[address] [facility] Comment on above: Order Comment: Waive d Testing in the ED is performed under the ED CLIA certificate #[id number]. Result Comment: [email or web address] [email or web address] Performed By: #### L [id number] ####[facility] ([facility])[address] [place] [address] 30on 03-09-2024 30 Normal [facility] 30 Normal [facility] B-TYPE NATRIURETIC PEPTIDEon 03-09-2024 Natriuretic peptide B (Bld) [Mass/Vol] 889 pg/mL High 0-100 [facility] Comment on above: Performed By: #### L [id number] ####[facility] ([facility])[address] [place] [address] C-REACTIVE PROTEINon 024 C REACTIVE PROTEIN (MG/L) IN SER/PLAS 126.0 mg/L High 0.0-7.0 [facility] Comment on above: Performed By: #### L [id number] ####[facility] ([facility])[address] [place] [address] COMPREHENSIVE METABOLIC PANE Robbie 03-09-2024 Albumin [Mass/Vol] 3.2 g/dL Low 3.5-5.[address] [facility] Comment on above: Performed By: #### L [id number] ####[facility] ([facility])[address] [place] [address] ALP [Catalytic activity/Vol] 81 U/L Normal 34-104 [facility] Comment on above: Performed By: #### L [id number] ####[facility] ([facility])[address] [place] [address] ALT [Catalytic activity/Vol] 237 U/L High 7-52 [facility] Comment on above: Performed By: #### L [id number] ####[facility] ([facility])[address] [place] [address] Anion gap [Moles/Vol] 14 mmol/L Normal 7-20 [facility] Comment on above: Performed By: #### L [id number] ####[facility] ([facility])[address] [place] [address] AST [Catalytic activity/Vol] 130 U/L High 13-39 [facility] Comment on above: Performed By: #### L [id number] ####[facility] ([facility])[address] [place] [address] Bilirubin [Mass/Vol] 0.3 mg/dL Normal 0.3-1.0 [facility] Comment on above: Performed By: #### L [id number] ####[facility] ([facility])[address] [place] [address] Calcium [Mass/Vol] 8.6 mg/dL Normal 8.6-10.[address] [facility] Comment on above: Performed By: #### L [id number] ####[facility] ([facility])[address] [place] [address] Chloride [Moles/Vol] 93 mmol/L Low 98-107 [facility] Comment on above: Performed By: #### L [id number] ####[facility] ([facility])[address] [place] [address] CO2 [Moles/Vol] 28 mmol/L Normal 21-31 [facility] Comment on above: Performed By: #### L [id number] ####[facility] ([facility])[address] [place] [address] Creatinine [Mass/Vol] 1.03 mg/dL Normal 0.60-1.20 [facility] Comment on above: Performed By: #### L [id number] ####[facility] ([facility])[address] [place] [address] GLOMERULAR FILTRATION RATE ML/MIN/1.73 SQ M.PREDICTED 53.0 mL/min/1.73m*2 Low >60.0 [facility] Comment on above: Result Comment: [facility]???s estimated glomerular filtration rate (eGFR) will [...] of individuals. Performed By: #### L [id number] ####[facility] ([facility])[address] [place] [address] Glucose [Mass/Vol] 123 mg/dL Normal [facility] Comment on above: Performed By: #### L [id number] ####[facility] ([facility])[address] [place] [address] Performed By: #### L [id number] ####[facility] ([facility])[address] [place] [address] Potassium [Moles/Vol] 3.9 mmol/L Normal 3.5-5.1 [facility] Comment on above: Performed By: #### L [id number] ####[facility] ([facility])[address] [place] [address] Protein [Mass/Vol] 6.7 g/dL Normal 6.0-8.[address] [facility] Comment on above: Performed By: #### L [id number] ####[facility] ([facility])[address] [place] [address] Sodium [Moles/Vol] 131 mmol/L Low 136-[address] [facility] Comment on above: Performed By: #### L [id number] ####[facility] ([facility])[address] [place] [address] Urea nitrogen [Mass/Vol] 30 mg/dL High 7-25 [facility] Comment on above: Performed By: #### L [id number] ####[facility] ([facility])[address] [place] [address] UREA NITROGEN/CREATININ E (MASS RATIO) IN SER/PLAS 29.1 Normal [facility] Comment on above: Performed By: #### L [id number] ####[facility] ([facility])[address] [place] [address] CONSULTon 03-09-2024 CONSULT Normal [facility] CONSULT Normal [facility] HEMOGLOBIN A1Con 03-09-2024 HbA1c (Bld) [Mass fraction] 5.9 % Normal 4.0-6.0 [facility] Comment on above: Performed By: #### L [id number] ####[facility] ([facility])[address] [place] [address] HEMOGLOBIN AND HEMATOCRIT, B LOODon 03-09-2024 Hematocrit (Bld) [Volume fraction] 26.0 % Low 36.0-48.0 [facility] Comment on above: Performed By: #### L [id number] ####[facility] ([facility])[address] [place] [address] Hemoglobin (Bld) [Mass/Vol] 7.7 g/dL Low 12.0-15.0 [facility] Comment on above: Performed By: #### L [id number] ####[facility] ([facility])[address] [place] [address] Hematocrit (Bld) [Volume fraction] 26.8 % Low 36.0-48.0 [facility] Comment on above: Performed By: #### L [id number] ####[facility] ([facility])[address] [place] [address] Hemoglobin (Bld) [Mass/Vol] 8.1 g/dL Low 12.0-15.0 [facility] Comment on above: Performed By: #### L [id number] ####[facility] ([facility])[address] [place] [address] HPon 03-09-2024 HP Normal [facility] IRON AND TIBCon 03-09-2024 IRON (UG/DL) IN SER/PLAS 11 ug/dL Low 50-212 [facility] Comment on above: Performed By: #### L [id number] ####[facility] ([facility])[address] [place] [address] IRON BINDING CAPACITY (UG/DL) IN SER/PLAS 280 ug/dL Normal 250-450 [facility] Comment on above: Performed By: #### L [id number] ####[facility] ([facility])[address] [place] [address] IRON BINDING CAPACITY.UNSATURAT ED (UG/DL) IN SER/PLAS 269.0 ug/dL Normal 155.0-355.0 [facility] Comment on above: Performed By: #### L [id number] ####[facility] ([facility])[address] [place] [address] IRON SATURATION (%) IN SER/PLAS 4 % Low 20-50 [facility] Comment on above: Performed By: #### L [id number] ####[facility] ([facility])[address] [place] [address] POCT GLUCOSE METER UNSOLICIT ED RESULTSon 03-09-2024 Glucose [Mass/Vol] 110 mg/dL High 70-[address] [facility] Comment on above: Order Comment: Waive d Testing in the ED is performed under the ED CLIA certificate #[id number]. Result Comment: shod [email or web address] Performed By: #### L [id number] ####[facility] ([facility])[address] [place] [address] Glucose [Mass/Vol] 188 mg/dL High 70-[address] [facility] Comment on above: Order Comment: Waive d Testing in the ED is performed under the ED CLIA certificate #[id number]. Result Comment: shod ges4 Performed By: #### L [id number] ####[facility] ([facility])[address] [place] [address] Glucose [Mass/Vol] 147 mg/dL High 70-[address] [facility] Comment on above: Order Comment: Waive d Testing in the ED is performed under the ED CLIA certificate #[id number]. Result Comment: msig g Performed By: #### L [id number] ####[facility] ([facility])[address] [place] [address] SEDIMENTATION RATEon 024 SEDIMENTATION RATE, ERYTHROCYTE 65 mm/hr High <=20 [facility] Comment on above: Performed By: #### L [id number] ####[facility] ([facility])[address] [place] [address] TROPONIN Ion 03-09-2024 Troponin I.cardiac [Mass/Vol] 0.01 ng/mL Normal 0.00-0.04 [facility] Comment on above: Performed By: #### L [id number] ####[facility] ([facility])[address] [place] [address] Troponin I.cardiac [Mass/Vol] 0.01 ng/mL Normal 0.00-0.04 [facility] Comment on above: Performed By: #### L [id number] ####[facility] ([facility])[address] [place] [address] TSH3 REFLEX TO FT4on 024 THYROTROPIN (MIU/L) IN SER/PLAS BY DETECTION LIMIT <= 0.05 MIU/L 1.31 mIU/L Normal 0.34-5.60 [facility] Comment on above: Performed By: #### L [id number] ####[facility] ([facility])[address] [place] [address] VITAMIN B12on 03-09-2024 Cobalamin (Vitamin B12) [Mass/Vol] 417 pg/mL Normal 180-914 [facility] Comment on above: Result Comment: REFE RENCE RANGES:180-914 pg/mL [id number] pg/mL Indeterminate<145 pg/mL Deficient Performed By: #### L [id number] ####[facility] ([facility])[address] [place] [address] APTTon 03-08-2024 ACTIVATED PARTIAL THROMBOPLASTIN TIME IN PPP BY COAGULATION ASSAY 49.7 Seconds High 25.0-35.0 [facility] Comment on above: Result Comment: Clin ical significance of the APTT is questionable in the presence of heparin. Performed By: #### L [id number] ####[facility] ([facility])[address] [place] [address] B-TYPE NATRIURETIC PEPTIDEon 03-08-2024 Natriuretic peptide B (Bld) [Mass/Vol] 1085 pg/mL High 0-100 [facility] Comment on above: Performed By: #### L [id number] ####[facility] ([facility])[address] [place] [address] CBC WITH AUTO DIFFERENTIALon 03-08-2024 Basophils (Bld) [#/Vol] 0.01 10*3/uL Normal 0.00-0.20 [facility] Comment on above: Performed By: #### L [id number] ####[facility] ([facility])[address] [place] [address] Basophils/100 WBC (Bld) 0.1 % Normal 0.0-1.0 [facility] Comment on above: Performed By: #### L [id number] ####[facility] ([facility])[address] [place] [address] Eosinophils (Bld) [#/Vol] 0.00 10*3/uL Normal 0.00-0.50 [facility] Comment on above: Performed By: #### L [id number] ####[facility] ([facility])[address] [place] [address] Eosinophils/100 WBC (Bld) 0.0 % Normal 0.0-6.0 [facility] Comment on above: Performed By: #### L [id number] ####[facility] ([facility])[address] [place] [address] Erythrocyte distribution width (RBC) [Ratio] 18.0 % High 11.5-15.0 [facility] Comment on above: Performed By: #### L [id number] ####[facility] ([facility])[address] [place] [address] ERYTHROCYTE MEAN CORPUSCULAR HEMOGLOBIN CONCENTRATION (G/DL) BY AUTOMATED 30.7 g/dL Low 32.0-35.0 [facility] Comment on above: Performed By: #### L [id number] ####[facility] ([facility])[address] [place] [address] Hematocrit (Bld) [Volume fraction] 26.4 % Low 36.0-48.0 [facility] Comment on above: Performed By: #### L [id number] ####[facility] ([facility])[address] [place] [address] Hemoglobin (Bld) [Mass/Vol] 8.1 g/dL Low 12.0-15.0 [facility] Comment on above: Performed By: #### L [id number] ####[facility] ([facility])[address] [place] [address] Immature granulocytes (Bld) [#/Vol] 0.10 10*3/uL Normal 0.00-0.20 [facility] Comment on above: Performed By: #### L [id number] ####[facility] ([facility])[address] [place] [address] Immature granulocytes/100 WBC (Bld) 1.0 % Normal 0.0-1.0 [facility] Comment on above: Performed By: #### L [id number] ####[facility] ([facility])[address] [place] [address] Lymphocytes (Bld) [#/Vol] 0.93 10*3/uL Low 1.20-4.00 [facility] Comment on above: Performed By: #### L [id number] ####[facility] ([facility])[address] [place] [address] Lymphocytes/100 WBC (Bld) 8.8 % Low 20.0-45.0 [facility] Comment on above: Performed By: #### L [id number] ####[facility] ([facility])[address] [place] [address] MCH (RBC) [Entitic mass] 22.2 pg Low 27.0-33.0 [facility] Comment on above: Performed By: #### L [id number] ####[facility] ([facility])[address] [place] [address] MCV (RBC) [Entitic vol] 72.3 fL Low 82.0-98.0 [facility] Comment on above: Performed By: #### L [id number] ####[facility] ([facility])[address] [place] [address] Monocytes (Bld) [#/Vol] 0.55 10*3/uL Normal 0.10-1.00 [facility] Comment on above: Performed By: #### L [id number] ####[facility] ([facility])[address] [place] [address] Monocytes/100 WBC (Bld) 5.2 % Normal 5.0-12.0 [facility] Comment on above: Performed By: #### L [id number] ####[facility] ([facility])[address] [place] [address] Neutrophils (Bld) [#/Vol] 8.92 10*3/uL High 1.60-7.60 [facility] Comment on above: Performed By: #### L [id number] ####[facility] ([facility])[address] [place] [address] Neutrophils/100 WBC (Bld) 84.9 % High 40.0-72.0 [facility] Comment on above: Performed By: #### L [id number] ####[facility] ([facility])[address] [place] [address] NRBC (PER 100 WBCS) BY AUTOMATED COUNT 0.0 % Normal 0 [facility] Comment on above: Performed By: #### L [id number] ####[facility] ([facility])[address] [place] [address] PLATELETS (10*3/UL) IN BLOOD AUTOMATED COUNT 307 10*3/uL Normal 150-400 [facility] Comment on above: Performed By: #### L [id number] ####[facility] ([facility])[address] [place] [address] RBC (Bld) [#/Vol] 3.65 10*6/uL Low 3.80-5.00 [facility] Comment on above: Performed By: #### L [id number] ####[facility] ([facility])[address] [place] [address] WBC (Bld) [#/Vol] 10.51 10*3/uL Normal 4.00-10.60 [facility] Comment on above: Performed By: #### L [id number] ####[facility] ([facility])[address] [place] [address] COMPREHENSIVE METABOLIC PANE Robbie 03-08-2024 Albumin [Mass/Vol] 3.3 g/dL Low 3.5-5.[address] [facility] Comment on above: Performed By: #### L [id number] ####[facility] ([facility])[address] [place] [address] ALP [Catalytic activity/Vol] 95 U/L Normal 34-104 [facility] Comment on above: Performed By: #### L [id number] ####[facility] ([facility])[address] [place] [address] ALT [Catalytic activity/Vol] 272 U/L High 7-52 [facility] Comment on above: Performed By: #### L [id number] ####[facility] ([facility])[address] [place] [address] Anion gap [Moles/Vol] 13 mmol/L Normal 7-20 [facility] Comment on above: Performed By: #### L [id number] ####[facility] ([facility])[address] [place] [address] AST [Catalytic activity/Vol] 197 U/L High 13-39 [facility] Comment on above: Performed By: #### L [id number] ####[facility] ([facility])[address] [place] [address] Bilirubin [Mass/Vol] 0.3 mg/dL Normal 0.3-1.0 [facility] Comment on above: Performed By: #### L [id number] ####[facility] ([facility])[address] [place] [address] Calcium [Mass/Vol] 8.5 mg/dL Low 8.6-10.[address] [facility] Comment on above: Performed By: #### L [id number] ####[facility] ([facility])[address] [place] [address] Chloride [Moles/Vol] 90 mmol/L Low 98-107 [facility] Comment on above: Performed By: #### L [id number] ####[facility] ([facility])[address] [place] [address] CO2 [Moles/Vol] 27 mmol/L Normal 21-31 [facility] Comment on above: Performed By: #### L [id number] ####[facility] ([facility])[address] [place] [address] Creatinine [Mass/Vol] 1.02 mg/dL Normal 0.60-1.20 [facility] Comment on above: Performed By: #### L [id number] ####[facility] ([facility])[address] [place] [address] GLOMERULAR FILTRATION RATE ML/MIN/1.73 SQ M.PREDICTED 53.6 mL/min/1.73m*2 Low >60.0 [facility] Comment on above: Result Comment: [facility]???s estimated glomerular filtration rate (eGFR) will [...] of individuals. Performed By: #### L [id number] ####[facility] ([facility])[address] [place] [address] Glucose [Mass/Vol] 201 mg/dL High 70-[address] [facility] Comment on above: Performed By: #### L [id number] ####[facility] ([facility])[address] [place] [address] Potassium [Moles/Vol] 3.6 mmol/L Normal 3.5-5.1 [facility] Comment on above: Performed By: #### L [id number] ####[facility] ([facility])[address] [place] [address] Protein [Mass/Vol] 6.7 g/dL Normal 6.0-8.[address] [facility] Comment on above: Performed By: #### L [id number] ####[facility] ([facility])[address] [address] Sodium [Moles/Vol] 126 mmol/L Low 136-[address] [facility] Comment on above: Performed By: #### L [id number] ####[facility] ([facility])[address] [place] [address] Urea nitrogen [Mass/Vol] 34 mg/dL High -25 [facility] Comment on above: Performed By: #### L [id number] ####[facility] ([facility])[address] [place] [address] UREA NITROGEN/CREATININ E (MASS RATIO) IN SER/PLAS 33.3 Normal [facility] Comment on above: Performed By: #### L [id number] ####[facility] ([facility])[address] [place] [address] HPon 03-08-2024 HP Normal [facility] LACTIC ACID WITH 4 HOUR REFL EXon 03-08-2024 LACTATE (MMOL/L) IN SER/PLAS 1.8 mmol/L Normal 0.5-2.2 [facility] Comment on above: Performed By: #### L [id number] ####[facility] ([facility])[address] [place] [address] MAGNESIUMon 03-08-2024 Magnesium [Mass/Vol] 1.8 mg/dL Low 1.9-2.7 [facility] Comment on above: Performed By: #### L [id number] ####[facility] [facility] [place] [address] PHOSPHORUSon 03-08-2024 Magnesium [Mass/Vol] 4.5 mg/dL Normal 2.5-5.0 [facility] Comment on above: Performed By: #### L [id number] ####[facility] ([facility])[address] [place] [address] POCT GLUCOSE METER UNSOLICIT ED RESULTSon 03-08-2024 Glucose [Mass/Vol] 210 mg/dL High 70-105 [facility] Comment on above: Order Comment: Waive d Testing in the ED is performed under the ED CLIA certificate #[id number]. Result Comment: msig g Performed By: #### L [id number] ####[facility] ([employer])[address] [place] [address] PROTIME-INRon 03-08-2024 INR IN PPP BY COAGULATION ASSAY 2.32 High 0.90-1.10 [facility] Comment on above: Result Comment: ACCC [...] CHEST 1995;[id number]. Performed By: #### L [id number] ####[facility] [employer])[address] [place] [address] PROTHROMBIN TIME (PT) IN PPP BY COAGULATION ASSAY 25.0 Seconds High 12.3-14.8 [facility] Comment on above: Performed By: #### L [id number] ####[facility] [employer])[address] [place] [address] TROPONIN Ion 03-08-2024 Troponin I.cardiac [Mass/Vol] 0.01 ng/mL Normal 0.00-0.04 [facility] Comment on above: Performed By: #### L [id number] ####[facility] ([facility])[address] [place] [address] HVF 24-2 STANDARD - OUon HVF 24-2 STANDARD - OU See note Normal [facility] Perimetry studyon 12-01-2023 See note RADIOLOGY [facility] Radiology Study observation (narrative) [facility] ECG 12 leadon 06-28-2023 Atrial Rate [facility] [place] [facility] P-R Interval [facility] Q-T Interval [facility] Q-T Interval (corrected) [facility] QRS Duration [facility] QTC Calculation (Bezet) [facility] R [place] [facility] T [place] [facility] Ventricular Rate [facility] 36on 06-15-2023 36 Spoke with patient a nd she is back to taking the diltiazem how Mary wanted her to and she's feeling fine. BP isn't as low, but still up and down. Normal [facility] 36on 06-10-2023 36 Normal [facility] OCT OPTIC NERVE OUon 023 OCT OPTIC NERVE OU See note Normal [facility] Ophthalmic OCT panelon 05-31 See note RADIOLOGY [facility] Radiology Study observation (narrative) [facility] YAG LASER-OSon 05-31-2023 YAG LASER-OS See note Normal [facility] See note [facility] 36on 04-27-2023 36 That is fine she can stop...has she been treated for the yeast at least ? Normal [facility] Basic Metabolic Profon 03-09 Anion gap [Moles/Vol] 9 mmol/L Normal 05-01 [facility] Comment on above: Performed By: #### B MP, BNP #### [facility] [address] [place] [address] Metallographer: Jay Peter MD BUN/CRE Ratio 10 Normal 9-20 [facility] Comment on above: Performed By: #### B MP, BNP #### [facility] [address] [place] [address] Metallographer: Jay Peter MD Calcium [Mass/Vol] 9.0 mg/dL Normal 8.6-10.4 [facility] Comment on above: Performed By: #### B MP, BNP #### [facility] [address] [place] [address] Metallographer: Jay Peter MD Chloride [Moles/Vol] 96 mmol/L Low 98-107 [facility] Comment on above: Performed By: #### B MP, BNP #### [facility] [address] [place] [address] Metallographer: Jay Peter MD CO2 [Moles/Vol] 28 mmol/L Normal 20-31 [facility] Comment on above: Performed By: #### B MP, BNP #### [facility] [address] [place] [address] Metallographer: Jay Peter MD Creatinine [Mass/Vol] 0.9 mg/dL Normal 0.5-0.9 [facility] Comment on above: Performed By: #### B MP, BNP #### [facility] [address] [place] [address] Metallographer: Jay Peter MD GFR/1.73 sq M.predicted among non-blacks MDRD (S/P/Bld) [Vol rate/Area] mL/min/{1.73_m2} Normal >60 [facility] Comment on above: Result Comment: These [...] Performed By: #### B MP, BNP #### [facility] [address] [place], [place] [id number] Metallographer: Jay Peter MD Glucose [Mass/Vol] 162 mg/dL High 70-99 [facility] Comment on above: Performed By: #### B MP, BNP #### [facility] [address] [place] [address] Metallographer: Jay Peter MD Potassium [Moles/Vol] 4.3 mmol/L Normal 3.7-5.3 [facility] Comment on above: Performed By: #### B MP, BNP #### [facility] [address] [place] [address] [place] [address] Metallographer: Jay Peter MD Sodium [Moles/Vol] 133 mmol/L Low 135-144 [facility] Comment on above: Performed By: #### B MP, BNP #### [address] [place] [address] Metallographer: Jay Peter MD Urea nitrogen [Mass/Vol] 9 mg/dL Normal 8-23 [facility] Comment on above: Performed By: #### B MP, BNP #### [facility] [address] [place] [address] [place], [place] [id number] Metallographer: Jay Peter MD Brain Natri. Peptideon 03-09 Natriuretic peptide B (Bld) [Mass/Vol] 1518 pg/mL High <300 [facility] Comment on above: Result Comment: An age-independent cutoff point of 300 pg/ml has a 98% negative predictive value excluding acute heart failure. Performed By: #### B MP, BNP #### [facility] [address] [place], [place] [id number] Metallographer: Jay Peter MD PROF CHEM 8 (BAS METB)on Anion gap [Moles/Vol] 10.1 mmol/L Normal [facility] Comment on above: Performed By: #### L IPID, T7, CMP, TSH #### [facility] [address] [address] [address] Jorge Glaser Calcium [Mass/Vol] 9.1 mg/dL Normal 8.5-10.1 [facility] Comment on above: Performed By: #### L IPID, T7, CMP, TSH #### [facility] [address] [address] [address] Jorge Glaser Chloride [Moles/Vol] 98 mmol/L Normal 98-107 [facility] Comment on above: Performed By: #### L IPID, T7, CMP, TSH #### [facility] [address] [address] [address] Jorge Glaser CO2 [Moles/Vol] 32.1 mmol/L Critically high 21.0-32.0 [facility] Comment on above: Performed By: #### L IPID, T7, CMP, TSH #### [facility] [address] [address] [address] Jorge Glaser Creatinine [Mass/Vol] 0.93 mg/dL Normal 0.55-1.02 [facility] Comment on above: Performed By: #### L IPID, T7, CMP, TSH #### [facility] [address] [address] [address] Jorge Glaser EGFR-AF [place]TH [place] >60 Normal >=60 [facility] Comment on above: Performed By: #### L IPID, T7, CMP, TSH #### [facility] [address] [address] [address] Jorge Glaser EGFR-NON AF [place] 57 mL/min/1.73m2 Critically low >=60 [facility] Comment on above: Performed By: #### L IPID, T7, CMP, TSH #### [facility] [address] [address] [address] Jorge Glaser Glucose [Mass/Vol] 103 mg/dL Normal 74-106 [facility] Comment on above: Performed By: #### L IPID, T7, CMP, TSH #### [facility] [address] [address] [address] Jorge Glaser Potassium [Moles/Vol] 4.2 mmol/L Normal 3.5-5.1 [facility] Comment on above: Performed By: #### L IPID, T7, CMP, TSH #### [facility] [address] [place] [address] Dr. Jorge Glaser Sodium [Moles/Vol] 136 mmol/L Normal 136-145 [facility] Comment on above: Performed By: #### L IPID, T7, CMP, TSH #### [facility] [address] [place] [address] Dr. Jorge Glaser Urea nitrogen [Mass/Vol] 16.0 mg/dL Normal 7.0-18.0 [facility] Comment on above: Performed By: #### L IPID, T7, CMP, TSH #### [facility] [address] [place] [address] Dr. Jorge Glaser Urea nitrogen/Creatinin e [Mass ratio] 17.2 mg/mg Normal [facility] Comment on above: Performed By: #### L IPID, T7, CMP, TSH #### [facility] [address] [place] [address] Dr. Jorge Glaser BNPon 12-01-2022 Natriuretic peptide B (Bld) [Mass/Vol] 379.0 pg/mL Normal <=1,800.0 [facility] Comment on above: Performed By: #### L IPID, T7, CMP, TSH #### [facility] [address] [place] [address] Dr. Jorge Glaser CBC AUTO DIFFon 12-01-2022 BASO # 0.1 103/ul Normal 0.0-0.1 [facility] Comment on above: Performed By: #### C BC #### [facility] [address] [place] [address] Dr. Jorge Glaser Basophils/100 WBC (Bld) 1.3 % Normal 0.2-2.0 [facility] Comment on above: Performed By: #### C BC #### [facility] [address] [address] [address] Jorge Glaser EO # 0.2 103/ul Normal 0.0-0.7 [facility] Comment on above: Performed By: #### C BC #### [facility] [address] [address] [address] Jorge Glaser Eosinophils/100 WBC (Bld) 3.1 % Normal 0.9-7.0 [facility] Comment on above: Performed By: #### C BC #### [facility] [address] [place] [address] Dr. Jorge Glaser Erythrocyte distribution width (RBC) [Ratio] 14.4 % Normal 11.0-15.0 [facility] Comment on above: Performed By: #### C BC #### [facility] [address] [place] [address] Dr. Jorge Glaser Hematocrit (Bld) [Volume fraction] 36.1 % Normal 36.0-48.0 [facility] Comment on above: Performed By: #### C BC #### [facility] [address] [place] [address] Dr. Jorge Glaser Hemoglobin (Bld) [Mass/Vol] 11.5 g/dL Critically low 12.0-16.0 [facility] Comment on above: Performed By: #### C BC #### [facility] [address] [address] [address] Jorge Glaser IG # 0.05 10e3/ul Critically high 0.00-0.03 [facility] Comment on above: Performed By: #### C BC #### [facility] [address] [address] [address] Jorge Glaser IG % 0.6 % Critically high 0.0-0.5 [facility] Comment on above: Performed By: #### C BC #### [facility] [address] [address] [address] Jorge Glaser LYMPH # 1.7 103/ul Normal 1.2-3.8 [facility] Comment on above: Performed By: #### C BC #### [facility] [address] [place] [address] Dr. Jorge Glaser Lymphocytes/100 WBC (Bld) 21.2 % Normal 20.5-60.0 [facility] Comment on above: Performed By: #### C BC #### [facility] [address] [place] [address] Dr. Jorge Glaser MANUAL DIFF REQ NO Normal [facility] Comment on above: Performed By: #### C BC #### [facility] [address] [place] [address] Dr. Jorge Glaser MCH (RBC) [Entitic mass] 27.3 pg Normal 26.7-34.0 [facility] Comment on above: Performed By: #### C BC #### [facility] [address] [place] [address] Dr. Jorge Glaser MCHC (RBC) [Mass/Vol] 31.9 g/dL Normal 29.9-35.2 [facility] Comment on above: Performed By: #### C BC #### [facility] [address] [place] [address] Dr. Jorge Glaesr MCV (RBC) [Entitic vol] 85.5 fL Normal 81.0-99.0 [facility] Comment on above: Performed By: #### C BC #### [facility] [address] [place] [address] Dr. Jorge Glaser MONO # 0.8 103/ul Normal 0.3-0.8 [facility] Comment on above: Performed By: #### C BC #### [facility] [address] [place] [address] Dr. Jorge Glaser Monocytes/100 WBC (Bld) 10.5 % Normal 1.7-12.0 [facility] Comment on above: Performed By: #### C BC #### [facility] [address] [place] [address] Dr. Jorge Glaser NEUT # 4.9 103/ul Normal 1.4-6.5 [facility] Comment on above: Performed By: #### C BC #### [facility] [address] [address] [address] Jorge Glaser Neutrophils/100 WBC (Bld) 63.3 % Normal 43.0-75.0 [facility] Comment on above: Performed By: #### C BC #### [facility] [address] [address] [address] Jorge Glaser Platelet mean volume (Bld) [Entitic vol] 8.7 fL Critically low 9.5-13.5 [facility] Comment on above: Performed By: #### C BC #### [facility] [address] [address] [address] Jorge Glaser PLT 226 103/ul Normal 150-450 [facility] Comment on above: Performed By: #### C BC #### [facility] [address] [place] [address] Dr. Jorge Glaser RBC 4.22 106/ul Normal 4.20-5.40 [facility] Comment on above: Performed By: #### C BC #### [facility] [address] [place] [address] Dr. Jorge Glaser WBC 7.8 103/ul Normal 4.0-11.0 [facility] Comment on above: Performed By: #### C BC #### [facility] [address] [place] [address] Dr. Jorge Glaser FREE THYROXINE INDEX T7on FTI 2.17 Normal 1.30-4.50 [facility] Comment on above: Performed By: #### L IPID, T7, CMP, TSH #### [facility] [address] [place] [address] Dr. Jorge Glaser T3U 31.0 % Normal 30.0-39.0 [facility] Comment on above: Performed By: #### L IPID, T7, CMP, TSH #### [facility] [address] [place] [address] Dr. Jorge Glaser T4 [Mass/Vol] 7.00 ug/dL Normal 4.80-13.90 [facility] Comment on above: Performed By: #### L IPID, T7, CMP, TSH #### [facility] [address] [place] [address] Dr. Jorge Glaser PROF 14(COMP METB)on 023 Albumin [Mass/Vol] 3.5 g/dL Normal 3.4-5.0 [facility] Comment on above: Performed By: #### L IPID, T7, CMP, TSH #### [facility] [address] [place] [address] Dr. Jorge Glaser Albumin/Globulin [Mass ratio] 0.9 {ratio} Normal [facility] Comment on above: Performed By: #### L IPID, T7, CMP, TSH #### [facility] [address] [place] [address] Dr. Jorge Glaser ALP [Catalytic activity/Vol] 56 U/L Normal 46-116 [facility] Comment on above: Performed By: #### L IPID, T7, CMP, TSH #### [facility] [address] [place] [address] Dr. Jorge Glaser ALT [Catalytic activity/Vol] 28 U/L Normal 14-59 [facility] Comment on above: Performed By: #### L IPID, T7, CMP, TSH #### [facility] [address] [place] [address] Dr. Jorge Glaser Anion gap [Moles/Vol] 10.2 mmol/L Normal [facility] Comment on above: Performed By: #### L IPID, T7, CMP, TSH #### [facility] [address] [place] [address] Dr. Jorge Glaser AST [Catalytic activity/Vol] 20 U/L Normal 15-37 [facility] Comment on above: Performed By: #### L IPID, T7, CMP, TSH #### [facility] [address] [place] [address] Dr. Jorge Glaser Bilirubin [Mass/Vol] 0.4 mg/dL Normal 0.2-1.0 [facility] Comment on above: Performed By: #### L IPID, T7, CMP, TSH #### [facility] [address] [place] [address] Dr. Jorge Glaser Calcium [Mass/Vol] 9.8 mg/dL Normal 8.5-10.1 [facility] Comment on above: Performed By: #### L IPID, T7, CMP, TSH #### [facility] [address] [address] [address] Jorge Glaser Chloride [Moles/Vol] 93 mmol/L Critically low 98-107 [facility] Comment on above: Performed By: #### L IPID, T7, CMP, TSH #### [facility] [address] [address] [address] Jorge Glaser CO2 [Moles/Vol] 34.5 mmol/L Critically high 21.0-32.0 [facility] Comment on above: Performed By: #### L IPID, T7, CMP, TSH #### [facility] [address] [address] [address] Jorge Glaser Creatinine [Mass/Vol] 1.01 mg/dL Normal 0.55-1.02 [facility] Comment on above: Performed By: #### L IPID, T7, CMP, TSH #### [facility] [address] [address] [address] Jorge Glaser EGFR-AF [place] >60 Normal >=60 [facility] Comment on above: Performed By: #### L IPID, T7, CMP, TSH #### [facility] [address] [address] [address] Jorge Glaser EGFR-NON AF [place] 52 mL/min/1.73m2 Critically low >=60 [facility] Comment on above: Performed By: #### L IPID, T7, CMP, TSH #### [facility] [address] [address] [address] Jorge Glaser Globulin (S) [Mass/Vol] 4.0 g/dL Normal [facility] Comment on above: Performed By: #### L IPID, T7, CMP, TSH #### [facility] [address] [address] [address] Jorge Glaser Glucose [Mass/Vol] 103 mg/dL Normal 74-106 [facility] Comment on above: Performed By: #### L IPID, T7, CMP, TSH #### [facility] [address] [address] [address] Jorge Glaser Potassium [Moles/Vol] 3.7 mmol/L Normal 3.5-5.1 [facility] Comment on above: Performed By: #### L IPID, T7, CMP, TSH #### [facility] [address] [place] [address] Dr. Jorge Glaser Protein [Mass/Vol] 7.5 g/dL Normal 6.4-8.2 [facility] Comment on above: Performed By: #### L IPID, T7, CMP, TSH #### [facility] [address] [place] [address] Dr. Jorge Glaser Sodium [Moles/Vol] 134 mmol/L Critically low 136-145 [facility] Comment on above: Performed By: #### L IPID, T7, CMP, TSH #### [facility] [address] [place] [address] Dr. Jorge Glaser Urea nitrogen [Mass/Vol] 17.0 mg/dL Normal 7.0-18.0 [facility] Comment on above: Performed By: #### L IPID, T7, CMP, TSH #### [facility] [address] [place] [address] Dr. Jorge Glaser Urea nitrogen/Creatinin e [Mass ratio] 16.8 mg/mg Normal [facility] Comment on above: Performed By: #### L IPID, T7, CMP, TSH #### [facility] [address] [place] [address] Dr. Jorge Glaser TSHon 12-01-2022 TSH 4.022 uIU/mL Critically high 0.358-3.740 [facility] Comment on above: Performed By: #### L IPID, T7, CMP, TSH #### [facility] [address] [place] [address] Dr. Jorge Glaser XR CHEST 2 Von [...] by: ABIMBOLA AMADOR Date: 2022-12-01 13:06 Normal [facility] FREE T3on 11-11-2022 FREE T3 2.51 pg/mlL Normal 2.18-3.98 [facility] Comment on above: Performed By: #### L IPID, T7, CMP, TSH #### [facility] [address] [place] [address] Dr. Jorge Glaser T4on 11-11-2022 T4 [Mass/Vol] 6.00 ug/dL Normal 4.80-13.90 [facility] Comment on above: Performed By: #### L IPID, T7, CMP, TSH #### [facility] [address] [place] [address] Dr. Jorge Glaser TSHon 11-11-2022 TSH 4.223 uIU/mL Critically high 0.358-3.740 [facility] Comment on above: Performed By: #### L IPID, T7, CMP, TSH #### [facility] [address] [place] [address] Dr. Jorge Glaser BNPon 11-04-2022 Natriuretic peptide B (Bld) [Mass/Vol] 479.0 pg/mL Normal <=1,800.0 [facility] Comment on above: Performed By: #### L IPID, T7, CMP, TSH #### [facility] [address] [place] [address] Dr. Jorge Glaser CBC AUTO DIFFon 11-04-2022 BASO # 0.1 103/ul Normal 0.0-0.1 [facility] Comment on above: Performed By: #### C BC #### [facility] [address] [place] [address] Dr. Jorge Glaser Basophils/100 WBC (Bld) 0.8 % Normal 0.2-2.0 [facility] Comment on above: Performed By: #### C BC #### [facility] [address] [address] [address] Jorge Glaser EO # 0.1 103/ul Normal 0.0-0.7 [facility] Comment on above: Performed By: #### C BC #### [facility] [address] [address] [address] Jorge Glaser Eosinophils/100 WBC (Bld) 0.8 % Critically low 0.9-7.0 [facility] Comment on above: Performed By: #### C BC #### [facility] [address] [address] [address] Jorge Glaser Erythrocyte distribution width (RBC) [Ratio] 13.9 % Normal 11.0-15.0 [facility] Comment on above: Performed By: #### C BC #### [facility] [address] [place] [address] Dr. Jorge Glaser Hematocrit (Bld) [Volume fraction] 37.7 % Normal 36.0-48.0 [facility] Comment on above: Performed By: #### C BC #### [facility] [address] [place] [address] Dr. Jorge Glaser Hemoglobin (Bld) [Mass/Vol] 12.2 g/dL Normal 12.0-16.0 [facility] Comment on above: Performed By: #### C BC #### [facility] [address] [place] [address] Dr. Jorge Glaser IG # 0.14 10e3/ul Critically high 0.00-0.03 [facility] Comment on above: Performed By: #### C BC #### [facility] [address] [address] [address] Jorge Glaser IG % 1.1 % Critically high 0.0-0.5 [facility] Comment on above: Performed By: #### C BC #### [facility] [address] [place] [address] Dr. Jorge Glaser LYMPH # 1.6 103/ul Normal 1.2-3.8 [facility] Comment on above: Performed By: #### C BC #### [facility] [address] [place] [address] Dr. Jorge Glaser Lymphocytes/100 WBC (Bld) 11.8 % Critically low 20.5-60.0 [facility] Comment on above: Performed By: #### C BC #### [facility] [address] [place] [address] Dr. Jorge Glaser MANUAL DIFF REQ NO Normal [facility] Comment on above: Performed By: #### C BC #### [facility] [address] [place] [address] Dr. Jorge Glaser MCH (RBC) [Entitic mass] 28.2 pg Normal 26.7-34.0 [facility] Comment on above: Performed By: #### C BC #### [facility] [address] [place] [address] Dr. Jorge Glaser MCHC (RBC) [Mass/Vol] 32.4 g/dL Normal 29.9-35.2 [facility] Comment on above: Performed By: #### C BC #### [facility] [address] [place] [address] Dr. Jorge Glaser MCV (RBC) [Entitic vol] 87.3 fL Normal 81.0-99.0 [facility] Comment on above: Performed By: #### C BC #### [facility] [address] [place] [address] Dr. Jorge Glaser MONO # 0.8 103/ul Normal 0.3-0.8 [facility] Comment on above: Performed By: #### C BC #### [facility] [address] [place] [address] Dr. Jorge Glaser Monocytes/100 WBC (Bld) 5.9 % Normal 1.7-12.0 [facility] Comment on above: Performed By: #### C BC #### [facility] [address] [place] [address] Dr. Jorge Glaser NEUT # 10.4 103/ul Critically high 1.4-6.5 [facility] Comment on above: Performed By: #### C BC #### [facility] [address] [place], [place] [address] Dr. Jorge Glaser Neutrophils/100 WBC (Bld) 79.6 % Critically high 43.0-75.0 [facility] Comment on above: Performed By: #### C BC #### [facility] [address] [address] [address] Jorge Glaser Platelet mean volume (Bld) [Entitic vol] 9.0 fL Critically low 9.5-13.5 [facility] Comment on above: Performed By: #### C BC #### [facility] [address] [address] [address] Jorge Glaser PLT 216 103/ul Normal 150-450 [facility] Comment on above: Performed By: #### C BC #### [facility] [address] [place] [address] [address] Jorge Glaser RBC 4.32 106/ul Normal 4.20-5.40 [facility] Comment on above: Performed By: #### C BC #### [facility] [address] [address] [address] Jorge Glaser WBC 13.1 103/ul Critically high 4.0-11.0 [facility] Comment on above: Performed By: #### C BC #### [facility] [address] [place] [address] Dr. Jorge Glaser ECHOCARDIO M/2D COMPLETEon 0 11-04-2022 ECHOCARDIO M/2D COMPLETE Patient: KAREN GIFFORD Exam Date: 11/04/2022 : 1935 Gender:F Ordering : CHILANGO SANDOVAL [facility] Admission #: [id number] Family : Order #: [id number] CLICK HERE TO VIEW EXAM ECHOCARDIOGRAM REPORT [...] 3.04 cm Aortic Valve AoV Area (Peak Rivsa): 1.99 cm2, 1.99 cm2 AoV Area (VTI): 2.20 cm2, 2.20 cm2 Deceleration Mclean: 2.65 m/s2 Pressure Half-Time: 481.67 ms Peak [...] Lopez M.D. on 11/04/2022 at 22:09 Normal [facility] PROF CHEM 8 (BAS METB)on Anion gap [Moles/Vol] 10.6 mmol/L Normal [facility] Comment on above: Performed By: #### L IPID, T7, CMP, TSH #### [facility] [address] [address] [address] Jorge Glaser Calcium [Mass/Vol] 9.5 mg/dL Normal 8.5-10.1 [facility] Comment on above: Performed By: #### L IPID, T7, CMP, TSH #### [facility] [address] [address] [address] Jorge Glaser Chloride [Moles/Vol] 97 mmol/L Critically low 98-107 [facility] Comment on above: Performed By: #### L IPID, T7, CMP, TSH #### [facility] [address] [address] [address] Jorge Glaser CO2 [Moles/Vol] 32.3 mmol/L Critically high 21.0-32.0 [facility] Comment on above: Performed By: #### L IPID, T7, CMP, TSH #### [facility] [address] [address] [address] Jorge Glaser Creatinine [Mass/Vol] 0.79 mg/dL Normal 0.55-1.02 [facility] Comment on above: Performed By: #### L IPID, T7, CMP, TSH #### [facility] [address] [address] [address] Jorge Glaser EGFR-AF [place]AN >60 Normal >=60 [facility] Comment on above: Performed By: #### L IPID, T7, CMP, TSH #### [facility] [address] [place] [address] Dr. Jorge Glaser EGFR-NON AF [place] >60 Normal >=60 [facility] Comment on above: Performed By: #### L IPID, T7, CMP, TSH #### [facility] [address] [address] [address] Jorge Glaser Glucose [Mass/Vol] 161 mg/dL Critically high 74-106 [facility] Comment on above: Performed By: #### L IPID, T7, CMP, TSH #### [facility] [address] [address] [address] Jorge Glaser Potassium [Moles/Vol] 3.9 mmol/L Normal 3.5-5.1 [facility] Comment on above: Performed By: #### L IPID, T7, CMP, TSH #### [facility] [address] [address] [address] Jorge Glaser Sodium [Moles/Vol] 136 mmol/L Normal 136-145 [facility] Comment on above: Performed By: #### L IPID, T7, CMP, TSH #### [facility] [address] [address] [address] Jorge Glaser Urea nitrogen [Mass/Vol] 20.0 mg/dL Critically high 7.0-18.0 [facility] Comment on above: Performed By: #### L IPID, T7, CMP, TSH #### [facility] [address] [address] [address] Jorge Glaser Urea nitrogen/Creatinin e [Mass ratio] 25.3 mg/mg Normal [facility] Comment on above: Performed By: #### L IPID, T7, CMP, TSH #### [facility] [address] [place] [address] [address] Jorge Glaser FREE T3on 10-04-2022 FREE T3 2.15 pg/mlL Critically low 2.18-3.98 [facility] Comment on above: Performed By: #### L IPID, T7, CMP, TSH #### [facility] [address] [place] [address] Dr. Jorge Glaser POTASSIUMon 10-04-2022 Potassium [Moles/Vol] 3.5 mmol/L Normal 3.5-5.1 [facility] Comment on above: Performed By: #### L IPID, T7, CMP, TSH #### [facility] [address] [place] [address] [address] Jorge Glaser T4on 10-04-2022 T4 [Mass/Vol] 6.50 ug/dL Normal 4.80-13.90 [facility] Comment on above: Performed By: #### T 4, TSH, FT3, K #### [facility] [address] [place] [address] Dr. Jorge Glaser TSHon 10-04-2022 TSH 4.603 uIU/mL Critically high 0.358-3.740 [facility] Comment on above: Performed By: #### L IPID, T7, CMP, TSH #### [facility] [address] [place] [address] Dr. Jorge Glaser OCC BLD IMMUNO SCREENon 08-15 OCCULT BLOOD Negative Normal NEGATIVE [facility] Comment on above: Performed By: #### O BSCRN #### [facility] [address] [place] [address] Dr. Jorge Glaser CBC AUTO DIFFon 09-01-2022 BASO # 0.1 103/ul Normal 0.0-0.1 [facility] Comment on above: Performed By: #### L IPID, T7, CMP, TSH #### [facility] [address] [place] [address] [address] Jorge Glaser Basophils/100 WBC (Bld) 1.0 % Normal 0.2-2.0 [facility] Comment on above: Performed By: #### L IPID, T7, CMP, TSH #### [facility] [address] [place] [address] Dr. Jorge Glaser EO # 0.3 103/ul Normal 0.0-0.7 [facility] Comment on above: Performed By: #### L IPID, T7, CMP, TSH #### [facility] [address] [place] [address] Dr. Jorge Glaser Eosinophils/100 WBC (Bld) 3.8 % Normal 0.9-7.0 [facility] Comment on above: Performed By: #### L IPID, T7, CMP, TSH #### [facility] [address] [address] [address] Jorge Glaser Erythrocyte distribution width (RBC) [Ratio] 13.4 % Normal 11.0-15.0 [facility] Comment on above: Performed By: #### L IPID, T7, CMP, TSH #### [facility] [address] [place] [address] Dr. Jorge Glaser Hematocrit (Bld) [Volume fraction] 39.0 % Normal 36.0-48.0 [facility] Comment on above: Performed By: #### L IPID, T7, CMP, TSH #### [facility] [address] [place] [address] Dr. Jorge Glaser Hemoglobin (Bld) [Mass/Vol] 12.8 g/dL Normal 12.0-16.0 [facility] Comment on above: Performed By: #### L IPID, T7, CMP, TSH #### [facility] [address] [place] [address] Dr. Jorge Glaser IG # 0.10 10e3/ul Critically high 0.00-0.03 [facility] Comment on above: Performed By: #### L IPID, T7, CMP, TSH #### [facility] [address] [place] [address] Dr. Jorge Glaser IG % 1.1 % Critically high 0.0-0.5 [facility] Comment on above: Performed By: #### L IPID, T7, CMP, TSH #### [facility] [address] [place] [address] Dr. Jorge Glaser LYMPH # 2.3 103/ul Normal 1.2-3.8 [facility] Comment on above: Performed By: #### L IPID, T7, CMP, TSH #### [facility] [address] [place] [address] Dr. Jorge Glaser Lymphocytes/100 WBC (Bld) 26.9 % Normal 20.5-60.0 [facility] Comment on above: Performed By: #### L IPID, T7, CMP, TSH #### [facility] [address] [place] [address] Dr. Jorge Glaser MANUAL DIFF REQ NO Normal [facility] Comment on above: Performed By: #### L IPID, T7, CMP, TSH #### [facility] [address] [place] [address] Dr. Jorge Glaser MCH (RBC) [Entitic mass] 29.4 pg Normal 26.7-34.0 [facility] Comment on above: Performed By: #### L IPID, T7, CMP, TSH #### [facility] [address] [place] [address] Dr. Jorge Glaser MCHC (RBC) [Mass/Vol] 32.8 g/dL Normal 29.9-35.2 [facility] Comment on above: Performed By: #### L IPID, T7, CMP, TSH #### [facility] [address] [place] [address] Dr. Jorge Glaser MCV (RBC) [Entitic vol] 89.7 fL Normal 81.0-99.0 [facility] Comment on above: Performed By: #### L IPID, T7, CMP, TSH #### [facility] [address] [place] [address] Dr. Jorge Glaser MONO # 0.8 103/ul Normal 0.3-0.8 [facility] Comment on above: Performed By: #### L IPID, T7, CMP, TSH #### [facility] [address] [place] [address] Dr. Jorge Glaser Monocytes/100 WBC (Bld) 9.1 % Normal 1.7-12.0 [facility] Comment on above: Performed By: #### L IPID, T7, CMP, TSH #### [facility] [address] [place] [address] Dr. Jorge Glaser NEUT # 5.1 103/ul Normal 1.4-6.5 [facility] Comment on above: Performed By: #### L IPID, T7, CMP, TSH #### [facility] [address] [place] [address] Dr. Jorge Glaser Neutrophils/100 WBC (Bld) 58.1 % Normal 43.0-75.0 [facility] Comment on above: Performed By: #### L IPID, T7, CMP, TSH #### [facility] [address] [place] [address] Dr. Jorge Glaser Platelet mean volume (Bld) [Entitic vol] 8.8 fL Critically low 9.5-13.5 [facility] Comment on above: Performed By: #### L IPID, T7, CMP, TSH #### [facility] [address] [place] [address] Dr. Jorge Glaser PLT 158 103/ul Normal 150-450 [facility] Comment on above: Performed By: #### L IPID, T7, CMP, TSH #### [facility] [address] [place] [address] Dr. Jorge Glaser RBC 4.35 106/ul Normal 4.20-5.40 [facility] Comment on above: Performed By: #### L IPID, T7, CMP, TSH #### [facility] [address] [place] [address] Dr. Jorge Glaser WBC 8.7 103/ul Normal 4.0-11.0 [facility] Comment on above: Performed By: #### L IPID, T7, CMP, TSH #### [facility] [address] [place] [address] [address] Jorge Glaser FREE THYROXINE INDEX T7on FTI 2.15 Normal 1.30-4.50 [facility] Comment on above: Performed By: #### L IPID, T7, CMP, TSH #### [facility] [address] [place] [address] Dr. Jorge Glaser T3U 33.0 % Normal 30.0-39.0 [facility] Comment on above: Performed By: #### L IPID, T7, CMP, TSH #### [facility] [address] [place] [address] Dr. Jorge Glaser T4 [Mass/Vol] 6.50 ug/dL Normal 4.80-13.90 [facility] Comment on above: Performed By: #### L IPID, T7, CMP, TSH #### [facility] [address] [place] [address] Dr. Jorge Glaser GLYCOHEMOGLOBIN A1Con 2022 ADA RECOMMENDATION SEE BELOW Normal [facility] Comment on above: Result Comment: ADA RECOMMENDED LIMIT 4.0 - 6.0 ADA THERAPEUTIC TARGET < 7.0 ACTION SUGGESTED > 7.0 Performed By: #### A 1C #### [facility] [address] [place] [address] Dr. Jorge Glaser Glucose [Mass/Vol] 137 mg/dL Normal [facility] Comment on above: Performed By: #### A 1C #### [facility] [address] [place] [address] Dr. Jorge Glaser HbA1c (Bld) [Mass fraction] 6.4 % Critically high 4.5-6.2 [facility] Comment on above: Performed By: #### A 1C #### [facility] [address] [place] [address] Dr. Jorge Glaser IRONon 09-01-2022 Iron [Mass/Vol] 58.0 ug/dL Normal 50.0-170.0 [facility] Comment on above: Performed By: #### I DAVID #### [facility] [address] [place] [address] Dr. Jorge Glaser LIPID PROFILEon 09-01-2022 CHOL-HDL RATIO NORM SEE BELOW Normal [facility] Comment on above: Result Comment: 3.3 - 4.4 LOW RISK 4.4 - 7.1 AVERAGE RISK 7.1 - 11.0 MODERATE RISK >11.0 HIGH RISK Performed By: #### L IPID, T7, CMP, TSH #### [facility] [address] [place] [address] Dr. Jorge Glaser Cholesterol [Mass/Vol] 128 mg/dL Normal <=200 [facility] Comment on above: Performed By: #### L IPID, T7, CMP, TSH #### [facility] [address] [place] [address] Dr. Jorge Glaser Cholesterol in HDL [Mass/Vol] 61 mg/dL Critically high 40-60 [facility] Comment on above: Performed By: #### L IPID, T7, CMP, TSH #### [facility] [address] [place] [address] [address] Jorge Glaser Cholesterol in LDL [Mass/Vol] 49.0 mg/dL Normal [facility] Comment on above: Performed By: #### L IPID, T7, CMP, TSH #### [facility] [address] [place] [address] [address] Jorge Glaser Cholesterol.total/ Cholesterol in HDL [Mass ratio] 2.1 {ratio} Normal [facility] Comment on above: Performed By: #### L IPID, T7, CMP, TSH #### [facility] [address] [place] [address] Dr. Jorge Glaser HDL NORMAL > or = 60 mg/dl - LO W CARDIOVASCULAR RISK <40 mg/dl - HIGH CARDIOVASCULAR RISK Normal [facility] Comment on above: Performed By: #### L IPID, T7, CMP, TSH #### [facility] [address] [place] [address] [address] Jorge Glaser LDL CALC NORMAL SEE BELOW Normal [facility] Comment on above: Result Comment: <100 mg/dl OPTIMAL 100 - 129 mg/dl NEAR OR ABOVE OPTIMAL 130 - 159 mg/dl BORDERLINE HIGH 160 - 189 mg/dl HIGH >190 mg/dl VERY HIGH Performed By: #### L IPID, T7, CMP, TSH #### [facility] [address] [place] [address] [address] Jorge Glaser Triglyceride [Mass/Vol] 90 mg/dL Normal <=150 [facility] Comment on above: Performed By: #### L IPID, T7, CMP, TSH #### [facility] [address] [place] [address] [address] Jorge Glaser VLDL CALC 18.0 mg/dL Normal [facility] Comment on above: Performed By: #### L IPID, T7, CMP, TSH #### [facility] [address] [place] [address] [address] Jorge Glaser PROF 14(COMP METB)on 023 Albumin [Mass/Vol] 3.5 g/dL Normal 3.4-5.0 [facility] Comment on above: Performed By: #### L IPID, T7, CMP, TSH #### [facility] [address] [place] [address] [address] Jorge Glsaer Albumin/Globulin [Mass ratio] 1.1 {ratio} Normal [facility] Comment on above: Performed By: #### L IPID, T7, CMP, TSH #### [facility] [address] [place] [address] [address] Jorge Glaser ALP [Catalytic activity/Vol] 42 U/L Critically low 46-116 [facility] Comment on above: Performed By: #### L IPID, T7, CMP, TSH #### [facility] [address] [place] [address] [address] Jorge Glaser ALT [Catalytic activity/Vol] 23 U/L Normal 14-59 [facility] Comment on above: Performed By: #### L IPID, T7, CMP, TSH #### [facility] [address] [place] [address] [address] Jorge Glaser Anion gap [Moles/Vol] 10.0 mmol/L Normal [facility] Comment on above: Performed By: #### L IPID, T7, CMP, TSH #### [facility] [address] [place] [address] [address] Jorge Glaser AST [Catalytic activity/Vol] 21 U/L Normal 15-37 [facility] Comment on above: Performed By: #### L IPID, T7, CMP, TSH #### [facility] [address] [place] [address] [address] Jorge Glaser Bilirubin [Mass/Vol] 0.5 mg/dL Normal 0.2-1.0 [facility] Comment on above: Performed By: #### L IPID, T7, CMP, TSH #### [facility] [address] [place] [address] Dr. Jorge Glaser Calcium [Mass/Vol] 9.2 mg/dL Normal 8.5-10.1 [facility] Comment on above: Performed By: #### L IPID, T7, CMP, TSH #### [facility] [address] [place] [address] [address] Jorge Glaser Chloride [Moles/Vol] 99 mmol/L Normal 98-107 [facility] Comment on above: Performed By: #### L IPID, T7, CMP, TSH #### [facility] [address] [place] [address] [address] Jorge Glaser CO2 [Moles/Vol] 32.2 mmol/L Critically high 21.0-32.0 [facility] Comment on above: Performed By: #### L IPID, T7, CMP, TSH #### [facility] [address] [place] [address] [address] Jorge Glaser Creatinine [Mass/Vol] 0.78 mg/dL Normal 0.55-1.02 [facility] Comment on above: Performed By: #### L IPID, T7, CMP, TSH #### [facility] [address] [place] [address] [address] Jorge Glaser EGFR-AF [place] >60 Normal >=60 [facility] Comment on above: Performed By: #### L IPID, T7, CMP, TSH #### [facility] [address] [place] [address] [address] Jorge Glaser EGFR-NON AF [place] >60 Normal >=60 [facility] Comment on above: Performed By: #### L IPID, T7, CMP, TSH #### [facility] [address] [address] [address] Jorge Glaser Globulin (S) [Mass/Vol] 3.2 g/dL Normal [facility] Comment on above: Performed By: #### L IPID, T7, CMP, TSH #### [facility] [address] [place] [address] Dr. Jorge Glaser Glucose [Mass/Vol] 100 mg/dL Normal 74-106 [facility] Comment on above: Performed By: #### L IPID, T7, CMP, TSH #### [facility] [address] [address] [address] Jorge Glaser Potassium [Moles/Vol] 3.2 mmol/L Critically low 3.5-5.1 [facility] Comment on above: Performed By: #### L IPID, T7, CMP, TSH #### [facility] [address] [place] [address] Dr. Jorge Glaser Protein [Mass/Vol] 6.7 g/dL Normal 6.4-8.2 [facility] Comment on above: Performed By: #### L IPID, T7, CMP, TSH #### [facility] [address] [place] [address] Dr. Jorge Glaser Sodium [Moles/Vol] 138 mmol/L Normal 136-145 [facility] Comment on above: Performed By: #### L IPID, T7, CMP, TSH #### [facility] [address] [place] [address] Dr. Jorge Glaser Urea nitrogen [Mass/Vol] 17.0 mg/dL Normal 7.0-18.0 [facility] Comment on above: Performed By: #### L IPID, T7, CMP, TSH #### [facility] [address] [address] [address] Jorge Glaser Urea nitrogen/Creatinin e [Mass ratio] 21.8 mg/mg Normal [facility] Comment on above: Performed By: #### L IPID, T7, CMP, TSH #### [facility] [address] [address] [address] Jorge Glaser TSHon 09-01-2022 TSH 4.483 uIU/mL Critically high 0.358-3.740 [facility] Comment on above: Performed By: #### L IPID, T7, CMP, TSH #### [facility] [address] [address] [address] Jorge Glaser XR DEXA BONE DENSITYon [...] by: KD DALY Date: 2022-08-27 16:23 Normal [facility] CBC AUTO DIFFon 05-22-2022 BASO # 0.1 103/ul Normal 0.0-0.1 [facility] Comment on above: Performed By: #### L IPID, T7, CMP, TSH #### [facility] [address] [address] [address] Jorge Glaser Basophils/100 WBC (Bld) 0.5 % Normal 0.2-2.0 [facility] Comment on above: Performed By: #### L IPID, T7, CMP, TSH #### [facility] [address] [address] [address] Jorge Glaser EO # 0.2 103/ul Normal 0.0-0.7 [facility] Comment on above: Performed By: #### L IPID, T7, CMP, TSH #### [facility] [address] [place] [address] Dr. Jorge Glaser Eosinophils/100 WBC (Bld) 2.0 % Normal 0.9-7.0 [facility] Comment on above: Performed By: #### L IPID, T7, CMP, TSH #### [facility] [address] [place] [address] Dr. Jorge Glaser Erythrocyte distribution width (RBC) [Ratio] 14.1 % Normal 11.0-15.0 [facility] Comment on above: Performed By: #### L IPID, T7, CMP, TSH #### [facility] [address] [place] [address] Dr. Jorge Glaser Hematocrit (Bld) [Volume fraction] 42.2 % Normal 36.0-48.0 [facility] Comment on above: Performed By: #### L IPID, T7, CMP, TSH #### [facility] [address] [place] [address] Dr. Jorge Glaser Hemoglobin (Bld) [Mass/Vol] 14.2 g/dL Normal 12.0-16.0 [facility] Comment on above: Performed By: #### L IPID, T7, CMP, TSH #### [facility] [address] [place] [address] Dr. Jorge Glaser IG # 0.08 10e3/ul Critically high 0.00-0.03 [facility] Comment on above: Performed By: #### L IPID, T7, CMP, TSH #### [facility] [address] [place] [address] Dr. Jorge Glaser IG % 0.8 % Critically high 0.0-0.5 [facility] Comment on above: Performed By: #### L IPID, T7, CMP, TSH #### [facility] [address] [place] [address] Dr. Jorge Glaser LYMPH # 1.2 103/ul Normal 1.2-3.8 [facility] Comment on above: Performed By: #### L IPID, T7, CMP, TSH #### [facility] [address] [address] [address] Jorge Glaser Lymphocytes/100 WBC (Bld) 11.9 % Critically low 20.5-60.0 [facility] Comment on above: Performed By: #### L IPID, T7, CMP, TSH #### [facility] [address] [place] [address] Dr. Jorge Glaser MANUAL DIFF REQ NO Normal [facility] Comment on above: Performed By: #### L IPID, T7, CMP, TSH #### [facility] [address] [place] [address] Dr. Jorge Glaser MCH (RBC) [Entitic mass] 30.8 pg Normal 26.7-34.0 [facility] Comment on above: Performed By: #### L IPID, T7, CMP, TSH #### [facility] [address] [place] [address] Dr. Jorge Glaser MCHC (RBC) [Mass/Vol] 33.6 g/dL Normal 29.9-35.2 [facility] Comment on above: Performed By: #### L IPID, T7, CMP, TSH #### [facility] [address] [place] [address] Dr. Jorge Glaser MCV (RBC) [Entitic vol] 91.5 fL Normal 81.0-99.0 [facility] Comment on above: Performed By: #### L IPID, T7, CMP, TSH #### [facility] [address] [place] [address] Dr. Jorge Glaser MONO # 0.5 103/ul Normal 0.3-0.8 [facility] Comment on above: Performed By: #### L IPID, T7, CMP, TSH #### [facility] [address] [place] [address] Dr. Jorge Glaser Monocytes/100 WBC (Bld) 5.0 % Normal 1.7-12.0 [facility] Comment on above: Performed By: #### L IPID, T7, CMP, TSH #### [facility] [address] [place] [address] Dr. Jorge Glaser NEUT # 8.3 103/ul Critically high 1.4-6.5 [facility] Comment on above: Performed By: #### L IPID, T7, CMP, TSH #### [facility] [address] [place] [address] Dr. Jorge Glaser Neutrophils/100 WBC (Bld) 79.8 % Critically high 43.0-75.0 [facility] Comment on above: Performed By: #### L IPID, T7, CMP, TSH #### [facility] [address] [place] [address] Dr. Jorge Glaser Platelet mean volume (Bld) [Entitic vol] 9.0 fL Critically low 9.5-13.5 [facility] Comment on above: Performed By: #### L IPID, T7, CMP, TSH #### [facility] [address] [place] [address] Dr. Jorge Glaser PLT 154 103/ul Normal 150-450 [facility] Comment on above: Performed By: #### L IPID, T7, CMP, TSH #### [facility] [address] [place] [address] Dr. Jorge Glaser RBC 4.61 106/ul Normal 4.20-5.40 [facility] Comment on above: Performed By: #### L IPID, T7, CMP, TSH #### [facility] [address] [place] [address] Dr. Jorge Glaser WBC 10.4 103/ul Normal 4.0-11.0 [facility] Comment on above: Performed By: #### L IPID, T7, CMP, TSH #### [facility] [address] [place] [address] Dr. Jorge Glaser PROF CHEM 8 (BAS METB)on Anion gap [Moles/Vol] 9.0 mmol/L Normal [facility] Comment on above: Performed By: #### L IPID, T7, CMP, TSH #### [facility] [address] [address] [address] Jorge Glaser Calcium [Mass/Vol] 10.0 mg/dL Normal 8.5-10.1 [facility] Comment on above: Performed By: #### L IPID, T7, CMP, TSH #### [facility] [address] [place] [address] Dr. Jorge Glaser Chloride [Moles/Vol] 94 mmol/L Critically low 98-107 [facility] Comment on above: Performed By: #### L IPID, T7, CMP, TSH #### [facility] [address] [place] [address] Dr. Jorge Glaser CO2 [Moles/Vol] 31.4 mmol/L Normal 21.0-32.0 [facility] Comment on above: Performed By: #### L IPID, T7, CMP, TSH #### [facility] [address] [place] [address] Dr. Jorge Glaser Creatinine [Mass/Vol] 0.69 mg/dL Normal 0.55-1.02 [facility] Comment on above: Performed By: #### L IPID, T7, CMP, TSH #### [facility] [address] [place] [address] Dr. Jorge Glaser EGFR-AF [place]TH [place]OREAN >60 Normal >=60 [facility] Comment on above: Performed By: #### L IPID, T7, CMP, TSH #### [facility] [address] [place] [address] Dr. Jorge Glaser EGFR-NON AF [place]TH [place]ORE[place] >60 Normal >=60 [facility] Comment on above: Performed By: #### L IPID, T7, CMP, TSH #### [facility] [address] [place] [address] Dr. Jorge Glaser Glucose [Mass/Vol] 129 mg/dL Critically high 74-106 [facility] Comment on above: Performed By: #### L IPID, T7, CMP, TSH #### [facility] [address] [place] [address] Dr. Jorge Glaser Potassium [Moles/Vol] 3.4 mmol/L Critically low 3.5-5.1 [facility] Comment on above: Performed By: #### L IPID, T7, CMP, TSH #### [facility] [address] [address] [address] Jorge Glaser Sodium [Moles/Vol] 131 mmol/L Critically low 136-145 Th [facility] Comment on above: Performed By: #### L IPID, T7, CMP, TSH #### [facility] [address] [address] [address] Jorge Glaser Urea nitrogen [Mass/Vol] 17.0 mg/dL Normal 7.0-18.0 [facility] Comment on above: Performed By: #### L IPID, T7, CMP, TSH #### [facility] [address] [address] [address] Jorge Glaser Urea nitrogen/Creatinin e [Mass ratio] 24.6 mg/mg Normal [facility] Comment on above: Performed By: #### L IPID, T7, CMP, TSH #### [facility] [address] [address] [address] Jorge Glaser NM STRESS/REST MULTIon 03-22 NM STRESS/REST MULTI Patient: KAREN GIFFORD Exam Date: 03/22/2022 : 1935 Gender:F Ordering : DR VINCENZO PATEL . Admission #: [id number] Family : CHILANGO BelleChloé LORI [facility] Order #: [id number] CLICK HERE TO VIEW EXAM RADIOLOGY REPORT [...] Rachel MD on 03/23/2022 at 11:42 Normal [facility] Vital Signs Date Time Vital Sign Value Performing Clinician Facility 04-19-2024 11:17-0400 Blood Pressure Location [facility]tar [employer] [facility] 04-19-2024 11:17-0400 Diastolic blood pressure 74 mm[Hg] Avtar JAYL [facility] 04-19-2024 11:17-0400 Heart rate 79 /min [facility] [employer] [facility] 04-19-2024 11:17-0400 Respiratory rate 16 /min [facility] [employer] [facility] 04-19-2024 11:17-0400 Systolic blood pressure 133 mm[Hg] Avtar JAYL [facility] 03-29-2024 13:57-0400 Body height 170.2 cm Kiko Jameson [employer] Work Phone: [facility] 03-29-2024 13:57-0400 Body mass index (BMI) [Ratio] 21.61 kg/m2 Kiko Jameson [employer] Work Phone: [facility] 03-29-2024 13:57-0400 Body weight 62.6 kg Kiko Jameson [employer] Work Phone: [facility] 03-29-2024 13:57-0400 Diastolic blood pressure 68 mm[Hg] Kiko Jameson AUXILIARY ENGINEER Work Phone: [facility] 03-29-2024 13:57-0400 Heart rate 93 /min Kiko Jameson AUXILIARY ENGINEER Work Phone: [facility] 03-29-2024 13:57-0400 Systolic blood pressure 114 mm[Hg] Kiko Jameson AUXILIARY ENGINEER Work Phone: [facility] 06-28-2023 13:37-0500 Body height 170.2 cm Jay Munoz MD Work Phone: [facility] 06-28-2023 13:37-0500 Diastolic blood pressure 60 mm[Hg] Jay Munoz MD Work Phone: [facility] 06-28-2023 13:37-0500 Heart rate 77 /min Jay Munoz MD Work Phone: [facility] 06-28-2023 13:37-0500 Systolic blood pressure 90 mm[Hg] Jay Munoz MD Work Phone: [facility] Encounters Encounter Date Encounter Type Care Provider Facility Start: 04-19-2024 End: 04-19-2024 ambulatory Avtar TUCKER Facility:[facility] Start: 04-19-2024 End: 04-19-2024 Patient encounter procedure Avtar TUCKER [facility] Start: 04-18-2024 End: 04-18-2024 ambulatory [facility] Start: 04-18-2024 End: 04-18-2024 ambulatory [facility] Start: 04-06-2024 End: 04-06-2024 ambulatory [address]EFAN[address] [facility] Start: 03-29-2024 End: 04-02-2024 ambulatory VINCENZO Ramu [facility] Start: 03-29-2024 End: 03-29-2024 Office outpatient visit 40 minutes Kikoramu Barba AUXILIARY ENGINEER Work Phone: [facility] Comment on above: Persistent atrial fi brillation (HCC) (Primary Dx); PAF (paroxysmal atrial fibrillation) (HCC); SSS (sick sinus syndrome) (HCC); Presence of cardiac pacemaker; Pericardial effusion; Pleural effusion Start: 03-29-2024 End: 03-30-2024 ambulatory VINCENZO PATEL [facility] Start: 03-28-2024 End: 03-28-[address] [facility] Start: 03-27-2024 End: 03-27-2024 Orders Only Kiko Barba CNP Work Phone: [facility] Comment on above: PAF (paroxysmal atri al fibrillation) (HCC) (Primary Dx) Start: 03-14-2024 Evaluation and manag ement of inpatient [facility] Start: 03-14-2024 Evaluation and manag ement of inpatient [facility] Start: 03-13-2024 Evaluation and manag ement of inpatient [facility] Start: 03-12-2024 Evaluation and manag ement of inpatient [facility] Start: 03-10-2024 Evaluation and manag ement of inpatient [facility] Start: 03-09-2024 Evaluation and manag ement of inpatient [facility] Start: 03-09-2024 Evaluation and manag ement of inpatient [facility] Start: 03-09-2024 Evaluation and manag ement of inpatient [facility] Start: 03-08-2024 End: 03-15-2024 Evaluation and management of inpatient UNKNOWN UNKNOWN [facility] Start: 02-02-2024 Orders Only Jay Munoz MD Work Phone: [facility] Comment on above: PAF (paroxysmal atri al fibrillation) (HCC) (Primary Dx); Presence of cardiac pacemaker Start: 01-02-2024 End: 01-02-2024 ambulatory LORIE PARK Not Available Start: 12-01-2023 [facility]ulatory [facility] Start: 12-01-2023 End: 12-01-2023 Office outpatient visit 15 minutes Abimbola Chacon MD Work Phone: [facility] Comment on above: Primary open-angle g laucoma, bilateral, indeterminate stage (Primary Dx) Start: 11-23-2023 End: 12-08-2023 ambulatory [facility] Start: 06-28-2023 End: 06-29-2023 ambulatory [facility] Start: 06-28-2023 End: 06-28-2023 Office outpatient new 60 minutes Jay Munoz MD Work Phone: [facility] Comment on above: PAF (paroxysmal atri al fibrillation) (HCC) (Primary Dx); Presence of cardiac pacemaker; SSS (sick sinus syndrome) (HCC); Hypertension, unspecified type; Heart failure with preserved ejection fraction, unspecified HF chronicity (HCC) Start: 06-28-2023 End: 06-29-2023 ambulatory JAY MUNOZ [facility] Start: 06-23-2023 Orders Only Jay Munoz MD Work Phone: [facility] Comment on above: PAF (paroxysmal atri al fibrillation) (HCC) (Primary Dx) Start: 06-03-2023 End: [facility] Start: 05-31-2023 ambulatory ABIMBOLA CHACON [facility]ilit y[facility] Start: 05-31-2023 End: 05-31-2023 Office outpatient new 45 minutes Abimbola Chacon MD Work Phone: [facility] Comment on above: Primary open-angle g laucoma, bilateral, indeterminate stage (Primary Dx); PCO (posterior capsular opacification), left Start: 05-06-2023 End: 05-06-2023 ambulatory JJ AYERS [facility] Start: 03-09-2023 End: 03-10-2023 ambulatory [facility] Start: 12-27-2022 End: 12-28-2022 ambulatory CHILANGO SANDOVAL [...] Performing Clinician Start: 03-29-2024 Ecg routine ecg w/least 12 lds w/i&r Kiko Barba CNP Work Phone: Start: 12-01-2023 Visual field xm uni/bi w/interp extended exam Abimbola Chacon MD Work Phone: Start: 10-14-2023 Esophagogastroduodenoscopy Avtar TUCKER Start: 06-28-2023 Ecg routine ecg w/least 12 lds w/i&r Jay Munoz MD Work Phone: Start: 06-03-2023 Follow-up visit JAMI SU Start: 05-31-2023 Computerized ophthalmic imaging optic nerve Abimbola Chacon MD Work Phone: Start: 05-31-2023 Post-cataract laser surgery Abimbola galvan MD Work Phone: Start: 05-06-2023 Follow-up visit JAMI SU Start: 07-15-2015 Colonoscopy Avtar TUCKER Start: 07-15-1985 Abdominal hysterectomy Abdominal hysterectomy Avtar JAYL Start: 08-15-1965 Laparoscopic cholecystectomy Laparoscopic cholecystectomy Avtar JAYL Appendectomy Avtar JAYL Arthroscopy of knee Avtar TUCKER Comment on above: right Cholecystectomy Avtar JAYL Dilation and curettage of uterus [facility]tar JAYL Insertion of permane nt cardiac pacemaker pulse generator and electrode Avtar JAYL Tonsillectomy and adenoidectomy Avtar JAYL Vaginal hysterectomy Avtar TUCKER Plan of Treatment Date Care Activity Detail Author Start: 06-09-2032 Tetanus vaccination [facility] Start: 03-13-2025 End: 03-13-2025 ambulatory 03/13/2025 1:15 PM EDT Device Check OP [facility] [address] [place] [address] [facility] Start: 07-02-2024 End: 07-02-2024 ambulatory 07/02/2024 3:30 PM EST Device Check OP [facility] [address] [place] [phone] [facility] Start: 06-28-2024 CLASS III : OFFICE VISIT CLASS III : OFFICE VISIT [facility] Start: 06-04-2024 End: 06-04-2024 Patient encounter procedure 06/04/2024 3:30 PM EDT Office Visit [facility] [address] [place] [address] Abimbola Chacon MD [address] [place] [address] [facility] Start: 04-15-2024 Influenza vaccination Influenza Vacc ine (#1) [facility] Start: 03-29-2024 End: 03-29-2024 Patient encounter procedure 03/29/2024 2:10 PM EDT Office Visit [facility] [address] [place] [address] Kiko Barba, DENISE [address] [place] [address] [facility] Start: 03-27-2024 End: 03-27-2025 12 lead ECG ECG 12 lead ECG Routine PAF (paroxysmal atrial fibrillation) ([facility]) Expected: 03/27/2024, Expires: 03/27/2025 [facility] Work Phone: Comment on above: Expected: 03/27/2024 , Expires: 03/27/2025 Start: 03-14-2024 End: 03-14-2024 Patient encounter procedure [facility] Start: 02-21-2024 End: 02-21-2024 Patient encounter procedure 02/21/2024 7:00 AM EDT Appointment [facility] [address] [place] [phone] Simone Campoverde MD [address], [place] [address] [facility] Start: 12-27-2023 End: 12-27-2023 Patient encounter procedure 12/27/2023 1:50 PM EDT Office Visit [facility] [address] [place] [phone] Jay Munoz MD [address] [place] [address] [facility] Start: 12-01-2023 End: 12-01-2023 Patient encounter procedure 12/01/2023 10:30 AM EDT Office Visit [facility] [address] [place] [phone] Abimbola Chacon MD [address] [place] [phone] [facility] Start: 09-26-2023 COVID-19 Vaccine ( season) COVID-19 Vaccine () [facility] Start: 06-28-2023 End: 06-28-2023 Patient encounter procedure 06/28/2023 1:00 PM EST Office Visit [facility] [address] [place] [address] Jay Munoz MD [address] [place] [address] [facility] Start: 04-15-2023 COVID-19 VACCINE ( season) COVID-19 VACCINE ( season) [facility] Start: 04-15-2023 Influenza vaccination Sequenti al Influenza Vaccine (#1) [facility] Start: 01-23-2015 Screening for malign ant neoplasm of breast MAMMOGRAM SCREENING DISCUSSION [facility] Start: 2002 Fall risk assessment Falls Risk Asse ssment [facility] Start: 2002 Pneumococcal vaccination [facility] Start: 2002 Pneumococcal Vaccine : Age 65+ (1 - PCV) Pneumococcal Vaccine: Age 65+ (1 - PCV) [facility] Start: 2002 Pneumococcal Vaccine : Age 65+ (1 of 1 - PCV) Pneumococcal Vaccine: Age 65+ (1 of 1 - PCV) [facility] Start: 1987 Administration of he rpes zoster vaccine Zoster Vaccines (1 of 2) [facility] Start: 1987 Zoster vaccine hzv l trace for subcutaneous use ZOSTER (SHINGLES) VACCINE (1 of 2) [facility] Start: 1982 Screening for malign ant neoplasm of colon COLORECTAL CANCER SCREENING DISCUSSION [facility] Start: 1958 Screening for malign ant neoplasm of cervix CERVICAL CANCER SCREENING DISCUSSION [facility] Start: 1949 Depression screening using PHQ-9 (Patient Health Questionnaire 9) score [facility] Start: 1943 Pneumococcal Vaccine : Age 65+ (1 of 2 - PCV) Pneumococcal Vaccine: Age 65+ (1 of 2 - PCV) [facility] Start: 1940 History and physical examination, annual for health maintenance Wellness Visit [facility] Start: 1940 Medicare Wellness Visit Medicare Wel lness Visit [facility] Start: 1937 Alanine aminotransfe rase measurement CLASS III : ALT [facility] Start: 1937 CLASS III : AST CLASS III : AST [facility] Start: 1937 CLASS III : CXR CLASS III : CXR [facility] Start: 1937 CLASS III : EKG CLASS III : EKG [facility] Start: 1937 CLASS III : PFT CLASS III : PFT [facility] Start: 1937 Potassium [Moles/vol ume] in Serum or Plasma POTASSIUM [facility] Start: 1937 Screening for osteoporosis [facility] Start: 1937 Thyroid stimulating hormone measurement [facility] End: 06-23-2024 12 lead ECG ECG 12 lead ECG Routine PAF (paroxysmal atrial fibrillation) (HCC) 1 Occurrences starting 06/23/2023 until 06/23/2024 [facility] Work Phone: Comment on above: 1 Occurrences starti ng 06/23/2023 until 06/23/2024 End: 02-01-2025 12 lead ECG ECG 12 lead ECG Routine PAF (paroxysmal atrial fibrillation) (HCC) Presence of cardiac pacemaker 4 Occurrences starting 02/02/2024 until 02/01/2025 [facility] Work Phone: Comment on above: 4 Occurrences starti ng 02/02/2024 until 02/01/2025 12 lead ECG ECG 12 lead ECG Routine PAF (paroxysmal atrial fibrillation) (HCC) 03/29/2024 1:48 PM EDT [facility] Work Phone: Ophthalmic us dx cor [place] pachymetry uni/bi PACHYMETRY-OU [place] Charge Routine Primary open-angle glaucoma, bilateral, indeterminate stage Ordered: 05/31/2023 [facility] Comment on above: Ordered: 05/31/2023 Immunizations Immunization Date Immunization Notes Care Provider Andreia white 05-26-2023 influenza virus vaccine, unspecified formulation Kiko Barba CNP Work Phone: [facility] 04-29-2022 SARS-CoV-2 (COVID-19 ) [id number] Avtar TUCKER [facility] 11-25-2021 SARS-CoV-2 mRNA (wyakmulyxxr-oqao-cpyts se) vaccine Avtar TUCKER [facility] 06-10-2021 SARS-CoV-2 (COVID-19 ) mRNA BNT-162b2 vax [facility]tar TUCKER [facility] Comment on above: Result Comment: 2023: [id number] 10-02-2020 SARS-CoV-2 (COVID-19 ) mRNA-1273 vaccine Avtar TUCKER [facility] 09-04-2020 SARS-CoV-2 (COVID-19 ) mRNA-1273 vaccine Avtar TUCKER [facility] Payers Date Payer Category Payer Private Health Insurance LISSA BOGGS OTHER AFTER MEDICARE [id number] 2016-Present [phone] [address] [address] [place] [address] [id number] 2002 Medicare [id number] 1959 Medicare [id number] 1959 Private Health Insurance [id number] 1935 Unknown [id number] .593 1937 Unknown [id number] [id number] .593 1937 Unknown [id number] 2.16.840.1.817055.3.579.2 .593 1937 Unknown [id number] 2.16.840.1.958403.3.579.2 .593 1937 Unknown [id number] 2.16.840.1.543766.3.579.2 .593 1937 Unknown [id number] 2.16.840.1.002342.3.579.2 .593 1937 Unknown [id number] 2.16.840.1.056528.3.579.2 .593 1937 Unknown [id number] 2.16.840.1.507322.3.579.2 .593 1937 Unknown [id number] 2.16.840.1.311541.3.579.2 .593 1937 Unknown [id number] 2.16.840.1.122162.3.579.2 .593 1937 Unknown [id number] 2.16.840.1.316697.3.579.2 .173 1937 Unknown [id number] 2.16.840.1.766683.3.579.2 .594 1937 Unknown [id number] 1935 Unknown [id number] [id number] .900 1935 Unknown [id number] 2.16.840.1.593925.3.579.2 .900 1935 Unknown [id number] 2.16.840.1.928039.3.579.2 .1259 1935 Unknown [id number] 2.16.840.1.291598.3.579.2 .903 1935 Unknown [id number] 2.16.840.1.058982.3.579.2 .903 1935 Unknown [id number] 2.16.840.1.891137.3.579.2 .903 1935 Unknown [id number] 2.16.840.1.992767.3.579.2 .1286 1935 Unknown [id number] 2.16.840.1.011471.3.579.2 .1286 1935 Unknown [id number] 2.16.840.1.704285.3.579.2 .727 Medicare [id number] Social History Date Type Detail Facility Start: 05-31-2023 End: 04-19-2024 Tobacco smoking status NHIS Never smoked tobacco [facility] Start: 05-31-2023 End: 06-28-2023 Tobacco use and exposure Smokeless tobacco non-user [facility] Start: 05-31-2023 End: 12-01-2023 Alcohol intake Ex-drinker (finding) [facility] Start: 05-31-2023 End: 06-28-2023 History of Social function [facility] Start: 05-31-2023 End: 06-28-2023 Tobacco use panel [facility] Start: 1935 Sex Assigned At Not on file [facility] Tobacco smoking status NHIS Tobacco smoking consumption unknown [facility] Start: 06-28-2023 End: 03-29-2024 Alcohol intake Lifetime non-drinker (finding) [facility] Tobacco smoking status Never [facility] General [facility] [place] Medical Equipment Procedure Code Equipment Code Equipment Origin al Text Equipment Identifier Dates Acclarent [id number] Edora 8 Chrissy [id number] Start: 05-12-2022 Acclarent [id number] 17 7 Nomi S 53 [id number] Start: 05-12-2022 Acclarent 377 17 6 Nomi S 45 [id number] Start: 05-12-2022 Functional Status Date Assessment Result Facility 04-19-2024 Functional Status N/A [facility] General [facility] [place] Clinical Notes 03-22-2022 to 04-20-2024 Patient Kiko Jansen CNP - 03/29/2024 2:10 PM EDTMindi Holt - 12/01/2023 10:30 AM Oneil Chacon MD - 12/01/2023 10:30 AM Jay Tripp MD - 06/28/2023 1:00 PM EST Note Date & Type Note Facility 04-20-2024 Note Okay to proceed with colonoscopy from cardiology standpoint. Can hold Xarelto 2 days prior to procedure and resume as soon as okay with GI. [facility] 04-19-2024 Note General Surgery Offi ce/Clinic Note Chief Complaint consultation for anemia and positive occult stool HPI Staff 88 year old female presents on consultation from Dr. Patel for positive occult stool and anemia. Labs completed 03/27 with H/H 9.9 and 34.0. Denies abdominal or rectal pain. Denies noting BRBPR. Denies bowel changes. Reports intermittent episodes of dark stools, denies thick or tarry stools. Denies nausea or vomiting. Reports approximately 20 pound weight loss over the past 6 months for which she contributes to loss of appetite. Denies fatigue, SOB, dizziness or lightheadedness. Verbalized she had an EGD October 2023 for RUQ pain that showed chronic gastritis; report not immediately available. Last colonoscopy completed 07/2015- normal. Patient on Xarelto for history of a.fib. History of Present Illness 88 yo female with h/o atrial fibrillation, on Xarelto, htn, hypothyroidism, LANEY, TIA, hypercholesterolemia, referred for positive fecal occult blood test and anemia; denies change in bms or gross blood in stools; occasional dark stools, not tarry; started iron therapy recently; no abd complaints; abdominal operations significant for appendectomy, cholecystectomy and hysterectomy; last colonoscopy 2014, wnl; patient had EGD 10/2023 in [place] due to upper abd pain, found gastritis, no ulcers; patient has had anemia for at least 1 year; on Xarelto daily, no asa or NSAID use; no tobacco use; no fmhx of GI malignancy or IBD. Review of Systems PHQ Score Initial Depression Screen Score: 0 SCORE ROS - Provider Constitutional: no fever, no [...] or noncontributory. Physical Exam Vitals & Measurements HR: 79(Peripheral) RR: 16 BP: 133/74 HT: 67 in HT: 170 cm WT: 65.8 kg WT: 144.76 lb BMI: 22.77 HEENT: normal conjunctiva, sclera clear, no scleral icterus, EOM intact, PERRLA, oral mucosa moist without lesions. Neck: trachea midline, no mass, symmetric, no thyromegaly or nodules, no adenopathy Respiratory: lungs CTA, respirations non labored. Cardiovascular: regular rate and rhythm, no murmur, no pedal edema or varicosities. Gastrointestinal: soft, non distended, no tenderness, no masses, well-healed right subcostal scar and lower abd scars no palpable hernias, diastasis recti no, no hepatosplenomegaly; normal bs Lymphatic: no cervical adenopathy, no supraclavicular adenopathy. Musculoskeletal: normal gait, digits and nails without infection, nodes, cyanosis, clubbing. Skin: no rashes, no lesions, no ulcers, no subcutaneous nodules, induration. Psychiatric/Neuro: oriented to time, place, person, judgement normal, affect appropriate for age, insight intact, no focal deficits. Tests: labs reviewed, x-rays reviewed, review of old records completed , Discussed surgical options, risks, and possible complications with patient. Assessment/Plan 1. Positive fecal occult blood test (R19.5: Other fecal abnormalities) plan EGD and colonoscopy under anesthesia for further evaluation, informed consent obtained. will obtain Cardiac clearance; stop Xarelto 2 days prior to procedure if ok with Cardiology. 2. Iron deficiency anemia (D50.9: Iron deficiency anemia, unspecified) see # 1 3. History of chronic gastritis (Z87.19: Personal history of other diseases of the digestive system) see # 1 Follow-up No qualifying data available Problem List/Past Medical History Ongoing Aortic insufficiency Atrial fibrillation Basal cell carcinoma BRBPR (bright red blood per rectum) Cardiomegaly Cataract Chronic diastolic congestive heart failure DJD (degenerative joint disease) Dyslipidemia Dyspnea Epidermal inclusion cyst Fibrocystic breast History of chronic gastritis History of ID (myocardial infarction) HTN (hypertension) Hypothyroidism Iron deficiency anemia Mitral regurgitation Multiple pulmonary nodules LANEY (obstructive sleep apnea) Osteopenia Perica (more content not included)... [facility] Comment on above: Result Comment: Elec tronically Signed By: CAITLIN CORDON, Avtar Priest\Date and Time Signed: 04/19/24 13:12 EDT 04-06-2024 Note [facility] 03-29-2024 Instructions Zee Hollis MA - 03/29/2024 2:19 PM EDT We will see you back in the office: as needed If you need to cancel or reschedule an appointment please call [phone]. If you have any questions please call SHERRY Burciaga directly at [phone]. documented in this encounter [facility] 03-29-2024 History of Present illness Narrative ELECTROPHYSIOLOGY Clinic Established Follow Up Visit Patient Name: Karen Gifford MR #: [id number] : 1935 Physicians: Vincenzo Patel MD (Family); No ref. provider found (Referring) Primary Supervisor Air Conditioning Installer: Dr. Jay Munoz Assessment and Plan: ASSESSMENT: Recent hospitalization for shortness of breath -found with large pericardial effusion status post pericardiocentesis -Found with large pleural effusion status post bilateral thoracentesis -Perhaps malignant? Persistent atrial fibrillation -[id number]: 5 on Xarelto -Rate control strategy previously [...] She already followed up with cardiology at [place] and is due to follow-up with pulmonology soon to address her pleural effusions and perhaps discuss malignancy etiology. She is interested in consolidating care at [place] which would be reasonable to keep her close to home. All of our records are available through care everywhere and able to be accessed at [place]. We will be available for any as needed follow-ups if the need were to arise. FOLLOW UP IN: As needed Kiko Barba MS, AIRFLIGHT ATTENDANTS SUPERVISOR-AUXILIARY ENGINEER, AGACNP-[facility] Physicians Office Inpatient: Please contact me through secure chat To expedite correspondence this note was generated by Grabbit voice recognition software. Some grammatical or spelling [...] Strain: Low Risk (03/08/2024) Received from [facility] Overall Financial Resource Strain (CARDIA) Difficulty of Paying Living Expenses: Not hard at all Food Insecurity: No Food Insecurity (03/08/2024) Received from [facility] Hunger Vital Sign Within the past 12 months, you worried that your food would run out before you got the money to buy more.: Never true Transportation Needs: No Transportation Needs (03/08/2024) Received from [facility] Transportation In the past 12 months, has lack of transportation kept you from medical appointments or from getting medications?: No Housing Stability: Low Risk (03/08/2024) Received from [facility] Housing Stability Vital Sign In the last 12 months, was there a time when you did not have a steady place to sleep or slept in a nursing home (including now)?: No Allergies: Calcium channel [...] 03/29/24 2:23 PM documented in this encounter [facility] 03-29-2024 Note ELECTROPHYSIOLOGY Cl inic Established Follow Up Visit Patient Name: Karen Gifford MR #: [id number] : 1935 Physicians: Vincenzo Patel MD (Family); No ref. provider found (Referring) Primary Supervisor Air Conditioning Installer: Dr. Jay Munoz Assessment and Plan: ASSESSMENT: Recent hospitalization for shortness of breath -found with large pericardial effusion status post pericardiocentesis -Found with large pleural effusion status post bilateral thoracentesis -Perhaps malignant? Persistent atrial fibrillation -[id number]-MNZm: 5 on Xarelto -Rate control strategy previously [...] She already followed up with cardiology [place] and is due to follow-up with pulmonology soon to address her pleural effusions and perhaps discuss malignancy etiology. She is interested in consolidating care at [place] which would be reasonable to keep her close to home. All of our records are available through care everywhere and able to be accessed at [place]. We will be available for any as needed follow-ups if the need were to arise. FOLLOW UP IN: As needed Kiko Barba, MS, AIRFLIGHT ATTENDANTS SUPERVISOR-AUXILIARY ENGINEER, AGACNP-[facility]Vascular Physicians Office Inpatient: Please contact me through secure chat To expedite correspondence this note was generated by Grabbit voice recognition software. Some grammatical or spelling [...] Strain: Low Risk (03/08/2024) Received from [facility] Overall Financial Resource Strain (CARDIA) Difficulty of Paying Living Expenses: Not hard at all Food Insecurity: No Food Insecurity (03/08/2024) Received from [facility] Hunger Vital Sign Within the past 12 months, you worried that your food would run out before you got the money to buy more.: Never true Transportation Needs: No Transportation Needs (03/08/2024) Received from [facility] Transportation In the past 12 months, has lack of transportation kept you from medical appointments or from getting medications?: No Housing Stability: Low Risk (03/08/2024) Received from [facility] Housing Stability Vital Sign In the last 12 months, was there a time when you did not have a steady place to sleep or slept in a nursing home (including now)?: No Allergies: Calcium channel [...] mouth daily w (more content not included)... [facility] 03-28-2024 Note Follow up appointabhilash pompa Pt had labs yesterday. Patient is taken both lipitor, zocor. Review of Systems Respiratory: Positive for shortness of breath. [facility] 03-28-2024 Note [facility] 03-15-2024 Note [facility] 03-15-2024 Note [facility] 03-15-2024 Note [facility] 03-14-2024 Note [facility] 03-14-2024 Note [facility] 03-14-2024 Note Satisfactory for soraya luation. Examination of the ThinPrep slide and cell block reveals benign mesothelial cells and chronic inflammation. [facility] Comment on above: Performed By: #### L AB13 ####[facility] ([facility] [place] [address] 03-14-2024 Note [facility] 03-14-2024 Note [facility] 03-14-2024 Note [facility] 03-14-2024 Note [facility] 03-13-2024 Note Occupational Therapy Name: Karen Gifford Date of : 1935 Today's Date: 03/13/24 Pt is unable to be seen for therapy at this time secondary to bedrest until 1700 per nsg . Check No Charge Time attempted: 1434 [facility] 03-13-2024 Note [facility] 03-13-2024 Note [facility] 03-13-2024 Note Satisfactory for soraya luation. Examination of the ThinPrep slide and cell block reveals abundant acute inflammation and rare mesothelial cells. [facility] Comment on above: Performed By: #### L AB13 ####[facility] ([facility] [place] [address] 03-13-2024 Note [facility] 03-12-2024 Note [facility] 03-12-2024 Note [facility] 03-12-2024 Note [facility] 03-12-2024 Note [facility] 03-11-2024 Note [facility] 03-11-2024 Note [facility] 03-10-2024 Note [facility] 03-10-2024 Note [facility] 03-10-2024 Note [facility] 03-09-2024 Note [facility] 03-09-2024 Note [facility] 12-01-2023 History of Present illness Narrative REASON [...] time was spent with patient performing the service desk technician work of this visit. Referring Physician: [...] ROS: complete review of systems performed by service desk technician, reviewed by me. OCT: baseline, good [...] resolved OS. documented in this encounter [facility] 06-28-2023 History of Present illness Narrative Electrophysiology Clinic Consult Heart & Vascular [facility] 06/28/2023 Jay Munoz MD [address] [facility] [address] [facility] [address] Patient: Karen Gifford Date of [...] her age, doing water walking at the [facility] for 30 minutes twice per week. [...] daily indefinitely in the setting of a [id number] score of 5. Sick sinus syndrome status [...] members, referring and/or communicating with other health director of career services, coordinating care, and documenting the above findings. documented in this encounter [facility] 06-28-2023 Instructions Janet Mendoza RN - 06/28/2023 12:44 PM EST Testing Ordered: None Medication Changes: Stop Amiodarone Lab Work Ordered: None To schedule any outpatient testing( if applicable) simply call [phone] and follow the prompts to schedule any outpatient testing. If you have any questions or concerns about today's visit please call Janet POWLEL at [phone] documented in this encounter [facility] 06-03-2023 Note Stable Device interrogation q 6 months [facility] 06-03-2023 Note [facility] I-II, Currently pt is euvolemic without exacerbation Continue GDMT- continue bumex- Diuretic therapy Monitor daily weights, I&O, fluid restriction 1.5-2L/day, renal function and electrolytes [facility] 06-03-2023 Note Continue xarelto and amiodarone and atenolol [facility] 06-03-2023 Note [facility] 06-03-2023 Note [facility] 06-03-2023 Note [facility] 05-31-2023 History of Present illness Narrative REASON [...] time was spent with patient performing the service desk technician work of this visit. Referring Physician: [...] ROS: complete review of systems performed by service desk technician, reviewed by me. OCT: baseline, good [...] after hours documented in this encounter [facility] 05-06-2023 Note [facility] 03-22-2022 Note CARDIAC STRESS TEST Requesting Physician: [...] and reported in a separate dictation. [facility] Evaluation + Plan note No data available for this section [facility] [place] Evaluation note Diagnosis Primary open-angle glaucoma, bilateral, indeterminate stage- Primary PCO (posterior capsular opacification), left After-cataract, unspecified [facility] Diagnosis PAF (paroxysmal atrial fibrillation) (HCC)- Primary Atrial fibrillation [facility] Diagnosis PAF (paroxysmal atrial fibrillation) (HCC)- Primary Atrial fibrillation 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 SSS (sick sinus syndrome) ([facility]) Sinoatrial node dysfunction Hypertension, unspecified type Heart failure with preserved ejection fraction, unspecified HF chronicity ([facility]) [facility] Diagnosis Primary open-angle glaucoma, bilateral, indeterminate stage- Primary [facility] Diagnosis PAF (paroxysmal atrial fibrillation) (HCC)- Primary Atrial fibrillation 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 [facility] Diagnosis PAF (paroxysmal atrial fibrillation) (HCC)- Primary Atrial fibrillation [facility] Diagnosis Persistent atrial fibrillation (HCC)- Primary Atrial fibrillation PAF (paroxysmal atrial fibrillation) (HCC) Atrial fibrillation SSS (sick sinus syndrome) (HCC) Sinoatrial node dysfunction 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 Pericardial effusion Unspecified disease of pericardium Pleural effusion Unspecified pleural effusion [facility] Discharge instructions No data available for this section [facility] [place] Progress note No data available for this section [facility] [place] Summary Purpose Family History No Family History Records FoundNo Family History Records FoundNo Family History Records FoundNo Family History Records FoundNo Family History Records FoundNo Family History Records FoundNo Family History Records FoundNo Family History Records FoundNo Family History Records Found No data available for this section No Family History Records Found Advance Directives No Advanced Directives Records FoundDocuments on File Type Date Recorded Patient Subpoena Server Expl anation Advance Directives and Livin g Will 06/28/2023 12:40 PM Documents on File Type Date Recorded Patient Subpoena Server Expl anation Advance Directives and Livin g Will 06/28/2023 12:40 PM Reason for Referral Specialty Diagnoses / Procedures Referred By Contac t Referred To Contact Cardiology Diagnoses PAF (paroxysmal atrial fibrillation) (HCC) Procedures ECG 12 lead Jay Munoz MD [address] [facility] [address] [place] [address] Referral ID Status Reason Start Date Expiration Date V isits Requested Visits Authorized [id number] Authorized 06/23/2023 06/22/2024 1 1 Specialty Diagnoses / Procedures Referred By Contac t Referred To Contact Cardiology Diagnoses PAF (paroxysmal atrial fibrillation) (HCC) Presence of cardiac pacemaker Procedures ECG 12 lead Jay Munoz MD [address] [facility] [address] [place] [address] Referral ID Status Reason Start Date Expiration Date V isits Requested Visits Authorized [id number] Authorized 02/02/2024 02/01/2025 4 4 Specialty Diagnoses / Procedures Referred By Contac t Referred To Contact Cardiology Diagnoses PAF (paroxysmal atrial fibrillation) (HCC) Procedures ECG 12 lead Kiko Barba CNP [address] [place] [address] Referral ID Status Reason Start Date Expiration Date V isits Requested Visits Authorized [id number] Authorized 03/27/2024 03/27/2025 1 1 Additional Source Comments INFORMATION SOURCE (unrecogn ized section and content) DATE CREATED AUTHOR 12/28/2022 [facility] DATE CREATED AUTHOR AUTHOR'S ORGANIZ ATION 03/10/2023 [facility] DATE CREATED AUTHOR AUTHOR'S ORGANIZ ATION 12/02/2023 [facility] DATE CREATED AUTHOR AUTHOR'S ORGANIZ ATION 12/10/2023 [facility] DATE CREATED AUTHOR AUTHOR'S ORGANIZ ATION 01/04/2024 [facility] EPIC DATE CREATED AUTHOR AUTHOR'S ORGANIZ ATION 04/02/2024 [facility] DATE CREATED AUTHOR AUTHOR'S ORGANIZ ATION 04/19/2024 [facility] DATE CREATED AUTHOR AUTHOR'S ORGANIZ ATION 04/19/2024 [facility] DATE CREATED AUTHOR AUTHOR'S ORGANIZ ATION 2024 [facility] DATE CREATED AUTHOR AUTHOR'S ORGANIZ ATION 04/26/2024 [facility] Reason for Visit (unrecogniz ed section and content) Reason Comments New Patient Glaucoma Reason Comments Follow-up Reason Comments Follow-up Hosp. F/u Care Teams (unrecognized sec tion and content) Flavorings Compounder Relationship Specialty Start Date End Date Vincenzo Patel MD [address] [place] [phone] PCP - General Family Medicine 05/31/23 Sean Redman DO [address] [place] [address] [place] [id number] Ophthalmology 05/31/23 Flavorings Compounder Relationship Specialty Start Date End Date Vincenzo Patel MD [address] [place] [address] PCP - General Family Medicine 06/15/23 [employer]avor[employer] Compounder Relationship Specialty Start Date End Date Vincenzo Patel MD [address] [place] [address] PCP - General Family Medicine 06/15/23 Jay Munoz MD [address] [place] [address] [address] [place] [address] Cardiac Electrophysiology 06/28/23 Flavorings Compounder Relationship Specialty Start Date End Date Vincenzo Patel MD [address] [place] [address] PCP - General Family Medicine 06/15/23 Jay Munoz MD [address] [address] Cardiac Electrophysiology 06/28/23 Flavorings Compounder Relationship Specialty Start Date End Date Vincenzo Patel MD [address] [place] [address] PCP - General Family Medicine 06/15/23 Jay Munoz MD [address] [address] Cardiac Electrophysiology 06/28/23 Flavorings Compounder Relationship Specialty Start Date End Date Vincenzo Patel MD [address] [place] [address] PCP - General Family Medicine 06/15/23 Jay Munoz MD [address] [address] Cardiac Electrophysiology 06/28/23 FOR RECORDS PERTAINING TO [...] BE BASED ON THE PRIMARY CLINICAL RECORDS. [facility]. provides no warranty or guarantee of the accuracy or completeness of information in this document.
== END 2024-04-30 13:38 | disposition home or self-care (01) ==
LOC: PST 13:37
PROVIDERS: PCP Family Medicine; Visit Provider Surgery
DX: Z01.818 Encounter for other preprocedural examination (principal); D64.9 Anemia, unspecified

== ENCOUNTER 2024-05-09 07:22 | Day surgery (SDC) | payer MEDICARE, OTHER, SELFPAY ==
--- NOTE | 2024-05-09 | OP_ITS ---
OPERATION DATE: 05/09/2024 PREOPERATIVE DIAGNOSIS: Anemia, positive fecal occult blood. POSTOPERATIVE DIAGNOSIS: Small hiatal hernia, redundant colon. PROCEDURE: EGD and colonoscopy to cecum. SURGEON: Avtar Jones M.D. ANESTHESIA: Monitored anesthesia care. ESTIMATED BLOOD LOSS: Zero. INDICATIONS AND CONSENT: Patient is a 89-year-old female with multiple medical problems, on Eliquis, recently found to have worsening anemia as well as positive fecal occult blood test. Indications, risks, benefits, alternatives of proceeding with EGD and colonoscopy were explained extensively to the patient, including the risks of bleeding, aspiration, esophageal/gastric/duodenal or colonic perforation or anesthetic complications. All of her questions were answered. Informed consent was obtained. PROCEDURE: Patient brought to the operating room, placed in the left lateral decubitus position. Monitored anesthesia care was provided. Bite block was placed in the patient?s mouth. Scope was inserted into the oropharynx. Under direct visualization, it was advanced into the esophagus, past the cricopharyngeus, down to the stomach. The stomach was insufflated with air. The pylorus was traversed down to the descending portion of the duodenum. There was no evidence of duodenitis or ulceration. There was no scarring within the pyloric channel. Scope was pulled back into the stomach and retroflexed. There was a small, sliding type hiatal hernia. No gastric mucosal abnormalities. The GE junction was noted at approximately 36 cm. There was no distal esophagitis or Tavera?s changes. Remainder of the esophagus was unremarkable. The scope was then withdrawn. Patient was then positioned for colonoscopy. Rectal exam was performed, which showed no masses or blood. The scope was then inserted into the anal canal. Under direct visualization, it was advanced. With the aid of abdominal compression, it was advanced to the cecum where cecal markings were clearly identified. Upon withdrawal of the scope, mucosal surfaces were carefully examined. There were no mass lesions or polyps. No inflammatory changes or ulcerations. No significant diverticulosis. There was some redundancy of the colon. The scope was retroflexed in the anal canal. There were prominent rectal veins, but no significant hemorrhoidal disease. The scope was then withdrawn. The patient tolerated procedure well, was sent to recovery room in good condition. Patient should not require further screening colonoscopies. CC: Billy Patel M.D. [facility]
--- OUTSIDE RECORDS SUMMARY | 2024-05-09 07:25 | XMS_ITS | CCD ---
Author Organization [facility] CliniSyla Care Team Providers Care System Support Developer Name Role Phone ROBBY ., DR LOYA [...] Unavailable HOY ., DR LOYA Consulting Unavailable ERIE, DR JAY Santillan Consulting Unavailable LORI, CHILANGO [...] Unavailable Vincenzo Patel MD Primary Care Provider [phone] Feroz Sean SIMS Unavailable Vincenzo Patel MD Primary Care Provider Jay Munoz MD Unavailable ABIMBOLA CHACON Attending Unavailable SELF, SELF Referring Unavailable HOY VINCENZO M Primary Care Unavailable ABIMBOLA CHACON Attending Unavailable SELF, SELF Referring Unavailable HOY, VINCENZO Primary Care Unavailable SIMONE CAMPOVERDE Attending Unavailable HOY, VINCENZO Primary Care Unavailable ISMONE CAMPOVERDE Attending Unavailable LORIE PARK Attending Unavailable [...] Enalapril; Translations: [Vasotec] Drug Allergy 5 [facility] Repository (6 sources) Isosorbide; Translations: [ISOSORBIDE] Drug Allergy 0 [facility] Repository (2 sources) NIFEdipine; Translations: [Procardia] Drug Allergy 5 [facility] Repository (2 sources) Calcium Channel Blockers Propensity to adverse reactions to drug 3 [facility] (3 sources) Enalapril; Translations: [enalapril] Drug Allergy 3 Unknown (qualifier value) [facility] (7 sources) Enalapril; Translations: [ENALAPRIL MALEATE] Drug Allergy 3 Unknown [facility] (4 sources) Isosorbide Drug Allergy 0 Other (See Comments) [facility] (8 sources) Lisinopril; Translations: [LISINOPRIL] Drug Allergy 2 Other (See Comments), Unknown (qualifier value) [facility] (9 sources) Morphine; Translations: [MORPHINE] Drug Allergy 2 Other (See Comments) [facility] (8 sources) NIFEdipine; Translations: [NIFEDIPINE] Drug Allergy 5 Unknown, Unknown (qualifier value) [facility] (8 sources) Sulfonamides (Antibiotic); Translations: [SULFA (SULFONAMIDE ANTIBIOTICS)] Propensity to adverse reactions to drug 3 Unknown [facility] (8 sources) Calcium Channel Blocking Agents-Dihydropy ridines; Translations: [CALCIUM CHANNEL BLOCKING AGENTS-DIHYDROPY RIDINES] Propensity to adverse reactions to drug 5 Unknown [facility] (2 sources) dorzolamide / Timolol; Translations: [DORZOLAMIDE-TRISTEN OLOL] Drug Allergy 4 [facility] Repository (1 source) Lisinopril; Translations: [Zestril] Drug Allergy [facility] Repository (2 sources) Sulfonamides (Antibiotic); Translations: [sulfa drugs] Propensity to adverse reactions (disorder) Unknown (qualifier value) [facility] Repository (1 source) dapagliflozin; Translations: [DAPAGLIFLOZIN] Drug Allergy [address] [facility] Repository Medications Current Medications Medication Drug [...] XL 04/26/2023 Active take 1 capsule by [facility] once daily diltiazem (TIAZAC) 240 MG 24 hr capsule Take by mouth daily . 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 Values obtained by different assay methods cannot be used interchangeably. Performed By: #### 1 [id number] #### [facility] ([id number]) [address] [place] [address], [address] [place] [address] 36on 04-13-[address] [facility] Follow-Upon 08-23-2024 Follow-Up Normal [facility] Follow-Upon 03-28-2024 Follow-Up Normal [facility] Documentationon 03-20-[address] [facility] 30on 03-15-[address] [facility] CBC WITH AUTO DIFFERENTIALon 03-15-2024 Erythrocyte distribution width (RBC) [Ratio] 19.3 % High 11.5-15.[address] [facility] Comment on above: Performed By: #### L [id number] ####[facility] (BEAKER)[address] [facility] [place] [address] ERYTHROCYTE MEAN CORPUSCULAR HEMOGLOBIN CONCENTRATION (G/DL) BY AUTOMATED 28.8 g/dL Low 32.0-35.[address] [facility] Comment on above: Performed By: #### L [id number] ####[facility] (BEAKER)[address] [place] [address] Hematocrit (Bld) [Volume fraction] 28.5 % Low 36.0-48.[address] [facility] Comment on above: Performed By: #### L [id number] ####[facility] (BEAKER)[address] [place] [address] Hemoglobin (Bld) [Mass/Vol] 8.2 g/dL Low 12.0-15.[address] [facility] Comment on above: Performed By: #### L [id number] ####[facility] (BEAKER)[address] [place] [address] MCH (RBC) [Entitic mass] 22.2 pg Low 27.0-33.[address] [facility] Comment on above: Performed By: #### L [id number] ####[facility] (BEAKER)[address] [place] [address] MCV (RBC) [Entitic vol] 77.2 fL Low 82.0-98.[address] [facility] Comment on above: Performed By: #### L [id number] ####[facility] ([facility]AKER)[address] [place] [address] NRBC (PER 100 WBCS) BY AUTOMATED COUNT 0.2 % High [address] [facility] Comment on above: Performed By: #### L [id number] ####[facility] ([facility] [place] [address] PLATELETS (10*3/UL) IN BLOOD AUTOMATED COUNT 287 10*3/uL Normal 150-[address] [facility] Comment on above: Performed By: #### L [id number] ####[facility] ([facility])[address] [place] [address] RBC (Bld) [#/Vol] 3.69 10*6/uL Low 3.80-5.00 [facility] Comment on above: Performed By: #### L [id number] ####[facility] ([facility])[address] [place] [address] WBC (Bld) [#/Vol] 9.45 10*3/uL Normal 4.00-10.60 [facility] Comment on above: Performed By: #### L [id number] ####[facility] ([facility] [place] [address] COMPREHENSIVE METABOLIC PANE Robbie 03-15-2024 Albumin [Mass/Vol] 2.8 g/dL Low 3.5-5.7 [facility] Comment on above: Performed By: #### L [id number] ####[facility] (BEAKER)[address] [place] [address] ALP [Catalytic activity/Vol] 56 U/L Normal 34-[address] [facility] Comment on above: Performed By: #### L [id number] ####[facility] (BEAKER)[address] [place] [address] ALT [Catalytic activity/Vol] 44 U/L Normal 7-[address] [facility] Comment on above: Performed By: #### L [id number] ####[facility] (BEAKER)[address] [place] [address] Anion gap [Moles/Vol] 11 mmol/L Normal 7-[address] [facility] Comment on above: Performed By: #### L [id number] ####[facility] (BEAKER)[address] [place] [address] AST [Catalytic activity/Vol] 14 U/L Normal 13-[address] [facility] Comment on above: Performed By: #### L [id number] ####[facility] (BEAKER)[address] [place] [address] Bilirubin [Mass/Vol] 0.3 mg/dL Normal 0.3-1.[address] [facility] Comment on above: Performed By: #### L [id number] ####[facility] (BEAKER)[address] [place] [address] Calcium [Mass/Vol] 8.1 mg/dL Low 8.6-10.3 [facility] Comment on above: Performed By: #### L [id number] ####[facility] (BEAKER)[address] [place] [address] Chloride [Moles/Vol] 100 mmol/L Normal 98-[address] [facility] Comment on above: Performed By: #### L [id number] ####[facility] (BEAKER)[address] [place] [address] CO2 [Moles/Vol] 29 mmol/L Normal 21-31 [facility] Comment on above: Performed By: #### L [id number] ####[facility] (BEAKER)[address] [place] [address] Creatinine [Mass/Vol] 0.67 mg/dL Normal 0.60-1.[address] [facility] Comment on above: Performed By: #### L [id number] ####[facility] (BEAKER)[address] [place] [address] GLOMERULAR FILTRATION RATE ML/MIN/1.73 SQ M.PREDICTED 85.1 mL/min/1.73m*2 Normal >60.[address] [facility] Comment on above: Result Comment: [facility]???s estimated glomerular filtration rate (eGFR) will [...] of individuals. Performed By: #### L [id number] ####[facility] ([facility])[address] [place] [address] Glucose [Mass/Vol] 92 mg/dL Normal 70-100 [facility] Comment on above: Performed By: #### L [id number] ####[facility] ([facility])[address] [place] [address] Potassium [Moles/Vol] 3.4 mmol/L Low 3.5-5.[address] [facility] Comment on above: Performed By: #### L [id number] ####[facility] ([facility])[address] [place] [address] Protein [Mass/Vol] 5.7 g/dL Low 6.0-8.3 [facility] Comment on above: Performed By: #### L [id number] ####[facility] ([facility])[address] [place] [address] Sodium [Moles/Vol] 137 mmol/L Normal 136-145 [facility] Comment on above: Performed By: #### L [id number] ####[facility] ([facility] [place] [address] Urea nitrogen [Mass/Vol] 12 mg/dL Normal 7-[address] [facility] Comment on above: Performed By: #### L [id number] ####[facility] ([facility])[address] [place] [address] UREA NITROGEN/CREATININ E (MASS RATIO) IN SER/PLAS 17.9 [facility] Comment on above: Performed By: #### L [id number] ####[facility] ([facility] [place] [address] DSon 03-15-[address] [facility] MANUAL DIFFERENTIALon 2023 ANISOCYTOSIS PRESENCE IN BLOOD BY LIGHT MICROSCOPY Moderate Normal [facility] Comment on above: Performed By: #### L [id number] ####[facility] ([facility])[address] [place] [address] BASOPHILS (10*3/UL) IN BLOOD BY CALCULATION 0.06 10*3/uL Normal 0.00-0.[address] [facility] Comment on above: Performed By: #### L [id number] ####[facility] ([facility])[address] [place] [address] BASOPHILS/100 LEUKOCYTES IN BLOOD BY AUTOMATED COUNT 0.6 % Normal 0.0-1.[address] [facility] Comment on above: Performed By: #### L [id number] ####[facility] ([facility])[address] [place] [address] EOSINOPHILS (10*3/UL) IN BLOOD BY CALCULATION 0.43 10*3/uL Normal 0.00-0.[address] [facility] Comment on above: Performed By: #### L [id number] ####[facility] ([facility])[address] [place] [address] EOSINOPHILS/100 LEUKOCYTES IN BLOOD BY AUTOMATED COUNT 4.6 % Normal 0.0-6.[address] [facility] Comment on above: Performed By: #### L [id number] ####[facility] ([facility])[address] [place] [address] HYPOCHROMIA (PRESENCE) IN BLOOD BY LIGHT MICROSCOPY Slight Normal [facility] Comment on above: Performed By: #### L [id number] ####[facility] ([facility] [place] [address] IMMATURE GRANULOCYTES (10*3/UL) IN BLOOD BY CALCULATION 0.13 10*3/uL Normal 0.00-0.[address] [facility] Comment on above: Performed By: #### L [id number] ####[facility] ([facility] [place] [address] IMMATURE GRANULOCYTES/100 LEUKOCYTES IN BLOOD BY AUTOMATED COUNT 1.4 % High 0.0-1.[address] [facility] Comment on above: Performed By: #### L [id number] ####[facility] ([facility])[address] [place] [address] LYMPHOCYTES (10*3/UL) IN BLOOD BY CALCULATION 2.25 10*3/uL Normal 1.20-4.[address] [facility] Comment on above: Performed By: #### L [id number] ####[facility] ([facility])[address] [place] [address] LYMPHOCYTES/100 LEUKOCYTES IN BLOOD BY AUTOMATED COUNT 23.8 % Normal 20.0-45.[address] [facility] Comment on above: Performed By: #### L [id number] ####[facility] ([facility])[address] [place] [address] MONOCYTES (10*3/UL) IN BLOOD BY CALCUATION 0.95 10*3/uL Normal 0.10-1.[address] [facility] Comment on above: Performed By: #### L [id number] ####[facility] ([facility])[address] [place] [address] MONOCYTES/100 LEUKOCYTES IN BLOOD BY AUTOMATED COUNT 10.1 % Normal 5.0-12.[address] [facility] Comment on above: Performed By: #### L [id number] ####[facility] ([facility])[address] [place] [address] NEUTROPHILS (10*3/UL) IN BLOOD BY CALCULATION 5.6 10*3/uL Normal 1.6-7.[address] [facility] Comment on above: Performed By: #### L [id number] ####[facility] ([facility])[address] [place] [address] NEUTROPHILS/100 LEUKOCYTES IN BLOOD BY AUTOMATED COUNT 59.5 % Normal 40.0-72.[address] [facility] Comment on above: Performed By: #### L [id number] ####[facility] ([facility] [place] [address] POIKILOCYTOSIS (PRESENCE) IN BLOOD BY LIGHT MICROSCOPY Slight Normal [facility] Comment on above: Performed By: #### L [id number] ####[facility] ([facility])[address] [place] [address] POLYCHROMASIA IN BLOOD BY LIGHT MICROSCOPY Slight [facility] Comment on above: Performed By: #### L [id number] ####[facility] ([facility])[address] [place] [address] Orders Onlyon 03-15-2024 Orders Only [id number] Yolette Gifford nne F 1935 F Date Provider Department Center 03/15/[id number] PAZ [facility] PULM [facility] No family history on file [facility] POCT GLUCOSE METER UNSOLICIT ED RESULTSon 03-15-2024 Glucose [Mass/Vol] 99 mg/dL Normal 70-105 [facility] Comment on above: Order Comment: Waive d Testing in the ED is performed under the ED CLIA certificate #[id number]. Result Comment: [email or web address] Performed By: #### L [id number] ####[facility] ([facility])[address] [facility] [place] [address] Glucose [Mass/Vol] 104 mg/dL Normal 70-105 [facility] Comment on above: Order Comment: Waive d Testing in the ED is performed under the ED CLIA certificate #[id number]. Result Comment: [email or web address] Performed By: #### L [id number] ####[facility] ([facility])[address] [place] [address] 30on 03-14-[address] [facility] [address] [facility] [address] [facility] AFB CULTUREon 03-14-2024 AFB CULTURE No growth at 42 days Normal [facility] Comment on above: Performed By: #### L [id number] ####[facility] ([facility] [place] [address] AFB STAIN No acid fast bacilli seen Normal [facility] Comment on above: Performed By: #### L [id number] ####[facility] (BEAKER)[address] [place] [address] AMYLASE, BODY FLUIDon 2023 AMYLASE (U/L) IN BODY FLUID 31 U/L [facility] Comment on above: Result Comment: The reference range and other method performance specifications have not been established for this test in fluids. the test result should be integrated into the clinical context for interpretation. Performed By: #### L [id number] ####[facility] ([facility])[address] [place] [address] BODY FLUID CELL DIFFERENTIAL on 03-14-2024 BASOPHILS TOTAL PER COUNTED LEUKOCYTES IN BODY FLUID BY MANUAL COUNT [facility] Comment on above: Order Comment: Diffe rential performed on cytospin Performed By: #### L [id number] ####[facility] ([facility])[address] [place] [address] CELLS COUNTED TOTAL (#) IN BODY FLUID 100 [facility] Comment on above: Order Comment: Diffe rential performed on cytospin Performed By: #### L [id number] ####[facility] ([facility])[address] [place] [address] EOSINOPHILS TOTAL PER COUNTED LEUKOCYTES IN BODY FLUID BY MANUAL COUNT 4 [facility] Comment on above: Order Comment: Diffe rential performed on cytospin Performed By: #### L [id number] ####[facility] (BEAKER)[address] [place] [address] LYMPHOCYTES TOTAL PER COUNTED LEUKOCYTES IN BODY FLUID BY MANUAL COUNT 60 [facility] Comment on above: Order Comment: Diffe rential performed on cytospin Performed By: #### L [id number] ####[facility] (BEAKER)[address] [place] [address] MESOTHELIAL CELLS TOTAL PER COUNTED LEUKOCYTES IN BODY FLUID BY MANUAL COUN 19 [facility] Comment on above: Order Comment: Diffe rential performed on cytospin Performed By: #### L [id number] ####[facility] (BEAKER)[address] [place] [address] MONOCYTES+MACROPHA GES TOTAL PER COUNTED LEUKOCYTES IN BODY FLUID BY MANUAL Normal [facility] Comment on above: Order Comment: Diffe rential performed on cytospin Result Comment: Juan Carlos ected result: Previously reported as 19 (reference range: ) on 03/14/2024 at 1324 EDT. Performed By: #### L [id number] ####[facility] (BEAKER)[address] [place] [address] NEUTROPHILS TOTAL PER COUNTED LEUKOCYTES IN BODY FLUID BY MANUAL COUNT [address] [facility] Comment on above: Order Comment: Diffe rential performed on cytospin Performed By: #### L [id number] ####[facility] (BEAKER)[address] [place] [address] OTHER CELLS BODY FLUID (MANUAL) Normal [facility] Comment on above: Order Comment: Diffe rential performed on cytospin Performed By: #### L [id number] ####[facility] (BEAKER)[address] [place] [address] BODY FLUID CULTUREon 024 Bacteria identified Cx Nom (Unsp spec) No growth at [address] [facility] Comment on above: Performed By: #### L [id number] ####[facility] ([facility])[address] [place] [address] GRAM STAIN RESULT Normal [facility] Comment on above: Result Comment: Cyto centrifuge samplePolymorphonuclear leukocytesNo organisms seen Performed By: #### L [id number] ####[facility] (BEAKER)[address] [place] [address] CBC WITH AUTO DIFFERENTIALon 03-14-2024 Erythrocyte distribution width (RBC) [Ratio] 18.5 % High 11.5-15.[address] [facility] Comment on above: Performed By: #### L [id number] ####[facility] ([facility] [place] [address] ERYTHROCYTE MEAN CORPUSCULAR HEMOGLOBIN CONCENTRATION (G/DL) BY AUTOMATED 28.9 g/dL Low 32.0-35.[address] [facility] Comment on above: Performed By: #### L [id number] ####[facility] (BEAKER)[address] [place] [address] Hematocrit (Bld) [Volume fraction] 28.4 % Low 36.0-48.[address] [facility] Comment on above: Performed By: #### L [id number] ####[facility] (BEAKER)[address] [place] [address] Hemoglobin (Bld) [Mass/Vol] 8.2 g/dL Low 12.0-15.[address] [facility] Comment on above: Performed By: #### L [id number] ####[facility] (BEAKER)[address] [place] [address] MCH (RBC) [Entitic mass] 22.0 pg Low 27.0-33.[address] [facility] Comment on above: Performed By: #### L [id number] ####[facility] (BEAKER)[address] [place] [address] MCV (RBC) [Entitic vol] 76.1 fL Low 82.0-98.[address] [facility] Comment on above: Performed By: #### L [id number] ####[facility] ([facility] [place] [address] NRBC (PER 100 WBCS) BY AUTOMATED COUNT 0.0 % Normal [address] [facility] Comment on above: Performed By: #### L [id number] ####[facility] (BEAKER)[address] [place] [address] PLATELETS (10*3/UL) IN BLOOD AUTOMATED COUNT 323 10*3/uL Normal 150-[address] [facility] Comment on above: Performed By: #### L [id number] ####[facility] (BEAKER)[address] [place] [address] RBC (Bld) [#/Vol] 3.73 10*6/uL Low 3.80-5.00 [facility] Comment on above: Performed By: #### L [id number] ####[facility] (BEAKER)[address] [place] [address] WBC (Bld) [#/Vol] 9.81 10*3/uL Normal 4.00-10.60 [facility] Comment on above: Performed By: #### L [id number] ####[facility] ([facility])[address] [place] [address] COMPREHENSIVE METABOLIC PANE Robbie 03-14-2024 Albumin [Mass/Vol] 2.9 g/dL Low 3.5-5.7 [facility] Comment on above: Performed By: #### L [id number] ####[facility] ([facility])[address] [place] [address] ALP [Catalytic activity/Vol] 63 U/L Normal 34-[address] [facility] Comment on above: Performed By: #### L [id number] ####[facility] ([facility])[address] [place] [address] ALT [Catalytic activity/Vol] 61 U/L High 7-[address] [facility] Comment on above: Performed By: #### L [id number] ####[facility] ([facility])[address] [place] [address] Anion gap [Moles/Vol] 11 mmol/L Normal 7-[address] [facility] Comment on above: Performed By: #### L [id number] ####[facility] ([facility])[address] [place] [address] AST [Catalytic activity/Vol] 19 U/L Normal 13-[address] [facility] Comment on above: Performed By: #### L [id number] ####[facility] ([facility])[address] [place] [address] Bilirubin [Mass/Vol] 0.3 mg/dL Normal 0.3-1.[address] [facility] Comment on above: Performed By: #### L [id number] ####[facility] ([facility])[address] [place] [address] Calcium [Mass/Vol] 8.1 mg/dL Low 8.6-10.3 [facility] Comment on above: Performed By: #### L [id number] ####[facility] (BEAKER)[address] [place] [address] Chloride [Moles/Vol] 96 mmol/L Low 98-[address] [facility] Comment on above: Performed By: #### L [id number] ####[facility] ([facility] [place] [address] CO2 [Moles/Vol] 29 mmol/L Normal 21-31 [facility] Comment on above: Performed By: #### L [id number] ####[facility] ([facility] [place] [address] Creatinine [Mass/Vol] 0.67 mg/dL Normal 0.60-1.[address] [facility] Comment on above: Performed By: #### L [id number] ####[facility] ([facility])[address] [place] [address] GLOMERULAR FILTRATION RATE ML/MIN/1.73 SQ M.PREDICTED 85.1 mL/min/1.73m*2 Normal >60.[address] [facility] Comment on above: Result Comment: [facility]???s estimated glomerular filtration rate (eGFR) will [...] of individuals. Performed By: #### L [id number] ####[facility] ([facility] [place] [address] Glucose [Mass/Vol] 108 mg/dL High 70-100 [facility] Comment on above: Performed By: #### L [id number] ####[facility] ([facility] [place] [address] Potassium [Moles/Vol] 3.3 mmol/L Low 3.5-5.[address] [facility] Comment on above: Performed By: #### L [id number] ####[facility] ([facility] [place] [address] Protein [Mass/Vol] 5.8 g/dL Low 6.0-8.3 [facility] Comment on above: Performed By: #### L [id number] ####[facility] ([facility] [place] [address] Sodium [Moles/Vol] 133 mmol/L Low 136-145 [facility] Comment on above: Performed By: #### L [id number] ####[facility] ([facility])[address] [place] [address] Urea nitrogen [Mass/Vol] 16 mg/dL Normal 7-[address] [facility] Comment on above: Performed By: #### L [id number] ####[facility] ([facility])[address] [place] [address] UREA NITROGEN/CREATININ E (MASS RATIO) IN SER/PLAS 23.[address] [facility] Comment on above: Performed By: #### L [id number] ####[facility] ([facility])[address] [place] [address] GLUCOSE, BODY FLUIDon 2023 GLUCOSE (MG/DL) IN BODY FLUID 115 mg/dL Normal [facility] Comment on above: Result Comment: The reference range and other method performance specifications have not been established for this test in fluids. the test result should be integrated into the clinical context for interpretation. Performed By: #### L [id number] ####[facility] [place] [address] LACTATE DEHYDROGENASEon 02-14 LACTATE DEHYDROGENASE (U/L) IN SER/PLAS BY LAC->PYR RXN 198 U/L Normal 140-[address] [facility] Comment on above: Performed By: #### L [id number] ####[facility] ([facility] [place] [address] LACTATE DEHYDROGENASE, BODY FLUIDon 03-14-2024 LACTATE DEHYDROGENASE (U/L) IN BODY FLUID BY LAC->PYR 184 U/L Normal [facility] Comment on above: Result Comment: The reference range and other method performance specifications have not been established for this test in fluids. the test result should be integrated into the clinical context for interpretation. Performed By: #### L [id number] ####[facility] ([facility])[address] [place] [address] MANUAL DIFFERENTIALon 2023 ANISOCYTOSIS PRESENCE IN BLOOD BY LIGHT MICROSCOPY Moderate Normal [facility] Comment on above: Performed By: #### L [id number] ####[facility] ([facility])[address] [facility] [place] [address] BASOPHILS (10*3/UL) IN BLOOD BY CALCULATION 0.05 10*3/uL Normal 0.00-0.[address] [facility] Comment on above: Performed By: #### L [id number] ####[facility] ([facility])[address] [place] [address] BASOPHILS/100 LEUKOCYTES IN BLOOD BY AUTOMATED COUNT 0.5 % Normal 0.0-1.[address] [facility] Comment on above: Performed By: #### L [id number] ####[facility] ([facility])[address] [place] [address] EOSINOPHILS (10*3/UL) IN BLOOD BY CALCULATION 0.32 10*3/uL Normal 0.00-0.[address] [facility] Comment on above: Performed By: #### L [id number] ####[facility] ([facility])[address] [place] [address] EOSINOPHILS/100 LEUKOCYTES IN BLOOD BY AUTOMATED COUNT 3.3 % Normal 0.0-6.[address] [facility] Comment on above: Performed By: #### L [id number] ####[facility] ([facility])[address] [place] [address] IMMATURE GRANULOCYTES (10*3/UL) IN BLOOD BY CALCULATION 0.15 10*3/uL Normal 0.00-0.[address] [facility] Comment on above: Performed By: #### L [id number] ####[facility] ([facility])[address] [place] [address] IMMATURE GRANULOCYTES/100 LEUKOCYTES IN BLOOD BY AUTOMATED COUNT 1.5 % High 0.0-1.[address] [facility] Comment on above: Performed By: #### L [id number] ####[facility] ([facility])[address] [place] [address] LYMPHOCYTES (10*3/UL) IN BLOOD BY CALCULATION 1.75 10*3/uL Normal 1.20-4.[address] [facility] Comment on above: Performed By: #### L [id number] ####[facility] ([facility])[address] [place] [address] LYMPHOCYTES/100 LEUKOCYTES IN BLOOD BY AUTOMATED COUNT 17.8 % Low 20.0-45.[address] [facility] Comment on above: Performed By: #### L [id number] ####[facility] ([facility])[address] [place] [address] MONOCYTES (10*3/UL) IN BLOOD BY CALCUATION 1.11 10*3/uL High 0.10-1.[address] [facility] Comment on above: Performed By: #### L [id number] ####[facility] ([facility])[address] [place] [address] MONOCYTES/100 LEUKOCYTES IN BLOOD BY AUTOMATED COUNT 11.3 % Normal 5.0-12.[address] [facility] Comment on above: Performed By: #### L [id number] ####[facility] ([facility])[address] [place] [address] NEUTROPHILS (10*3/UL) IN BLOOD BY CALCULATION 6.4 10*3/uL Normal 1.6-7.[address] [facility] Comment on above: Performed By: #### L [id number] ####[facility] ([facility])[address] [place] [address] NEUTROPHILS/100 LEUKOCYTES IN BLOOD BY AUTOMATED COUNT 65.6 % Normal 40.0-72.[address] [facility] Comment on above: Performed By: #### L [id number] ####[facility] ([facility])[address] [place] [address] POIKILOCYTOSIS (PRESENCE) IN BLOOD BY LIGHT MICROSCOPY Slight Normal [facility] Comment on above: Performed By: #### L [id number] ####[facility] ([facility])[address] [place] [address] POLYCHROMASIA IN BLOOD BY LIGHT MICROSCOPY Slight Normal [facility] Comment on above: Performed By: #### L [id number] ####[facility] ([facility])[address] [place] [address] NON-FURNACE OPERATOR AND TENDER CYTOLOGY - CELLULAR EXAMon 03-14-2024 LAB AP CASE REPORT [facility] Comment on above: Result Comment: Non- gynecologic Cytology Case: [id number] Provider: Jami Su MD Collected: 03/14/2024 0930Ordering Location: [facility] Received: 03/14/2024 1132Pathologist: STEVEN Umañapecimen: Pleural fluid, right Performed By: #### L [id number] ####[facility] ([facility])[address] [place] [address] LAB AP CLINICAL INFORMATION Normal [facility] Comment on above: Result Comment: Post -Op DiagnosesNo Dx found. Performed By: #### L [id number] ####[facility] ([facility])[address] [place] [address] LAB AP GROSS DESCRIPTION Normal [facility] Comment on above: Result Comment: 45 m L cloudy, red fluid. Performed By: #### L [id number] ####[facility] ([facility])[address] [facility] [place] [address] LAB AP REPORT FINAL DIAGNOSIS NARRATIVE Normal [facility] Comment on above: Result Comment: A. P leural fluid, right: - Negative for malignancy. - Chronic inflammation. Performed By: #### L [id number] ####[facility] ([facility])[address] [place] [address] PATHOLOGY REVIEWon PATHOLOGY REVIEW Reviewed. Normal [facility] Comment on above: Result Comment: Elec tronically signed by Harjit Castellon MD on 03/15/24 at 7:58 AM. Performed By: #### L [id number] ####[facility] ([facility] [place] [address] PH PLEURAL FLUID, RESPIRATOR Yon 03-14-2024 PH PLEURAL FLUID 7.[address] [facility] Comment on above: Order Comment: The r eference range and other method performance specifications are unavailable for this body fluid. Interpretation nust be done by physician in conjunction with the clinical situation. ???This test was developed and its performance characteristics determined by [facility]. ???It has not been cleared or approved by the FDA. ???The laboratory is regulated under CLIA as qualified to perform moderately complexity testing. ???This test is used for clinical purposes. ???It should not be regarded as investigational or for research. Performed By: #### L [id number] ####[facility] [id number] [place] [address] [place] POCT GLUCOSE METER UNSOLICIT ED RESULTSon 03-14-2024 Glucose [Mass/Vol] 108 mg/dL High 70-105 [facility] Comment on above: Order Comment: Waive d Testing in the ED is performed under the ED CLIA certificate #[id number]. Result Comment: dcun dic Performed By: #### L [id number] ####[facility] ([facility])[address] [place] [address] Glucose [Mass/Vol] 111 mg/dL High 70-105 [facility] Comment on above: Order Comment: Waive d Testing in the ED is performed under the ED CLIA certificate #[id number]. Result Comment: dcun dic Performed By: #### L [id number] ####[facility] ([facility])[address] [place] [address] Glucose [Mass/Vol] 128 mg/dL High 70-105 [facility] Comment on above: Order Comment: Waive d Testing in the ED is performed under the ED CLIA certificate #[id number]. Result Comment: [email or web address] [email or web address] Performed By: #### L [id number] ####[facility] ([facility])[address] [place] [address] PROTEIN, BODY FLUIDon 2023 Protein (Body fld) [Mass/Vol] 3.8 g/dL Normal [facility] Comment on above: Result Comment: The reference range and other method performance specifications have not been established for this test in fluids. the test result should be integrated into the clinical context for interpretation. Performed By: #### L [id number] ####[facility] ([facility])[address] [place] [address] PROTEIN, TOTALon 03-14-2024 Protein [Mass/Vol] 5.7 g/dL Low 6.0-8.3 [facility] Comment on above: Performed By: #### L [id number] ####[facility] ([facility])[address] [place] [address] TRIGLYCERIDES, BODY FLUIDon 03-14-2024 TRIGLYCERIDES (MG/DL) IN BODY FLUID 30 mg/dL Normal [facility] Comment on above: Performed By: #### L [id number] ####[facility] ([facility])[address] [place] [address] 30on 03-13-[address] [facility] [address] [facility] [address] [facility] [address] [facility] AFB CULTUREon 03-13-2024 AFB CULTURE No growth at 42 days Normal [facility] Comment on above: Performed By: #### L [id number] ####[facility] ([facility])[address] [place] [address] AFB STAIN No acid fast bacilli seen Normal [facility] Comment on above: Performed By: #### L [id number] ####[facility] ([facility])[address] [place] [address] ANESon 03-13-[address] [facility] APTTon 03-13-2024 ACTIVATED PARTIAL THROMBOPLASTIN TIME IN PPP BY COAGULATION ASSAY 45.9 Seconds High 25.0-35.[address] [facility] Comment on above: Result Comment: Clin ical significance of the APTT is questionable in the presence of heparin. Performed By: #### L [id number] ####[facility] ([facility])[address] [facility] [place] [address] BODY FLUID CELL DIFFERENTIAL on 03-13-2024 BASOPHILS TOTAL PER COUNTED LEUKOCYTES IN BODY FLUID BY MANUAL COUNT [facility] Comment on above: Order Comment: Diffe rential performed on cytospin Performed By: #### L [id number] ####[facility] ([facility])[address] [facility] [place] [address] CELLS COUNTED TOTAL (#) IN BODY FLUID [address] [facility] Comment on above: Order Comment: Diffe rential performed on cytospin Performed By: #### L [id number] ####[facility] ([facility])[address] [facility] [place] [address] EOSINOPHILS TOTAL PER COUNTED LEUKOCYTES IN BODY FLUID BY MANUAL COUNT [address] [facility] Comment on above: Order Comment: Diffe rential performed on cytospin Performed By: #### L [id number] ####[facility] ([facility])[address] [facility] [place] [address] LYMPHOCYTES TOTAL PER COUNTED LEUKOCYTES IN BODY FLUID BY MANUAL COUNT [address] [facility] Comment on above: Order Comment: Diffe rential performed on cytospin Performed By: #### L [id number] ####[facility] ([facility])[address] [facility] [place] [address] MESOTHELIAL CELLS TOTAL PER COUNTED LEUKOCYTES IN BODY FLUID BY MANUAL COUN [facility] Comment on above: Order Comment: Diffe rential performed on cytospin Performed By: #### L [id number] ####[facility] ([facility])[address] [place] [address] MONOCYTES+MACROPHA GES TOTAL PER COUNTED LEUKOCYTES IN BODY FLUID BY MANUAL [facility] Comment on above: Order Comment: Diffe rential performed on cytospin Performed By: #### L [id number] ####[facility] ([facility])[address] [facility] [address] NEUTROPHILS TOTAL PER COUNTED LEUKOCYTES IN BODY FLUID BY MANUAL COUNT [address] [facility] Comment on above: Order Comment: Diffe rential performed on cytospin Performed By: #### L [id number] ####[facility] ([facility])[address] [place] [address] OTHER CELLS BODY FLUID (MANUAL) Normal [facility] Comment on above: Order Comment: Diffe rential performed on cytospin Performed By: #### L [id number] ####[facility] ([facility])[address] [place] [address] BODY FLUID CULTUREon 024 Bacteria identified Cx Nom (Unsp spec) No growth at [address] [facility] Comment on above: Performed By: #### L [id number] ####[facility] ([facility])[address] [facility] [address] GRAM STAIN RESULT Normal [facility] Comment on above: Result Comment: Poly morphonuclear leukocytesNo organisms seenCytocentrifuge sample Performed By: #### L [id number] ####[facility] ([facility])[address] [place] [address] C-REACTIVE PROTEINon 024 C REACTIVE PROTEIN (MG/L) IN SER/PLAS 42.9 mg/L High 0.0-7.[address] [facility] Comment on above: Performed By: #### L [id number] ####[facility] ([facility])[address] [place] [address] CBC WITH AUTO DIFFERENTIALon 03-13-2024 Basophils (Bld) [#/Vol] 0.04 10*3/uL Normal 0.00-0.[address] [facility] Comment on above: Performed By: #### L [id number] ####[facility] ([facility])[address] [facility] [place] [address] Basophils/100 WBC (Bld) 0.4 % Normal 0.0-1.[address] [facility] Comment on above: Performed By: #### L [id number] ####[facility] ([facility])[address] [place] [address] Eosinophils (Bld) [#/Vol] 0.22 10*3/uL Normal 0.00-0.[address] [facility] Comment on above: Performed By: #### L [id number] ####[facility] ([facility])[address] [place] [address] Eosinophils/100 WBC (Bld) 2.4 % Normal 0.0-6.[address] [facility] Comment on above: Performed By: #### L [id number] ####[facility] ([facility])[address] [place] [address] Erythrocyte distribution width (RBC) [Ratio] 18.4 % High 11.5-15.[address] [facility] Comment on above: Performed By: #### L [id number] ####[facility] ([facility])[address] [place] [address] ERYTHROCYTE MEAN CORPUSCULAR HEMOGLOBIN CONCENTRATION (G/DL) BY AUTOMATED 29.2 g/dL Low 32.0-35.[address] [facility] Comment on above: Performed By: #### L [id number] ####[facility] ([facility])[address] [place] [address] Hematocrit (Bld) [Volume fraction] 31.2 % Low 36.0-48.[address] [facility] Comment on above: Performed By: #### L [id number] ####[facility] ([facility])[address] [place] [address] Hemoglobin (Bld) [Mass/Vol] 9.1 g/dL Low 12.0-15.[address] [facility] Comment on above: Performed By: #### L [id number] ####[facility] ([facility])[address] [place] [address] Immature granulocytes (Bld) [#/Vol] 0.13 10*3/uL Normal 0.00-0.[address] [facility] Comment on above: Performed By: #### L [id number] ####[facility] ([facility])[address] [place] [address] Immature granulocytes/100 WBC (Bld) 1.4 % High 0.0-1.[address] [facility] Comment on above: Performed By: #### L [id number] ####[facility] ([facility] [place] [address] Lymphocytes (Bld) [#/Vol] 1.35 10*3/uL Normal 1.20-4.[address] [facility] Comment on above: Performed By: #### L [id number] ####[facility] ([facility] [place] [address] Lymphocytes/100 WBC (Bld) 14.5 % Low 20.0-45.[address] [facility] Comment on above: Performed By: #### L [id number] ####[facility] ([facility])[address] [place] [address] MCH (RBC) [Entitic mass] 22.0 pg Low 27.0-33.[address] [facility] Comment on above: Performed By: #### L [id number] ####[facility] ([facility] [place] [address] MCV (RBC) [Entitic vol] 75.4 fL Low 82.0-98.[address] [facility] Comment on above: Performed By: #### L [id number] ####[facility] ([facility] [place] [address] Monocytes (Bld) [#/Vol] 0.82 10*3/uL Normal 0.10-1.[address] [facility] Comment on above: Performed By: #### L [id number] ####[facility] ([facility])[address] [place] [address] Monocytes/100 WBC (Bld) 8.8 % Normal 5.0-12.[address] [facility] Comment on above: Performed By: #### L [id number] ####[facility] ([facility])[address] [place] [address] Neutrophils (Bld) [#/Vol] 6.75 10*3/uL Normal 1.60-7.[address] [facility] Comment on above: Performed By: #### L [id number] ####[facility] ([facility])[address] [place] [address] Neutrophils/100 WBC (Bld) 72.5 % High 40.0-72.[address] [facility] Comment on above: Performed By: #### L [id number] ####[facility] ([facility])[address] [place] [address] NRBC (PER 100 WBCS) BY AUTOMATED COUNT 0.0 % Normal [address] [facility] Comment on above: Performed By: #### L [id number] ####[facility] ([facility])[address] [place] [address] PLATELETS (10*3/UL) IN BLOOD AUTOMATED COUNT 340 10*3/uL Normal 150-[address] [facility] Comment on above: Performed By: #### L [id number] ####[facility] ([facility])[address] [place] [address] RBC (Bld) [#/Vol] 4.14 10*6/uL Normal 3.80-5.00 [facility] Comment on above: Performed By: #### L [id number] ####[facility] ([facility])[address] [place] [address] WBC (Bld) [#/Vol] 9.31 10*3/uL Normal 4.00-10.60 [facility] Comment on above: Performed By: #### L [id number] ####[facility] ([facility] [place] [address] COMPREHENSIVE METABOLIC PANE Robbie 03-13-2024 Albumin [Mass/Vol] 3.2 g/dL Low 3.5-5.7 [facility] Comment on above: Performed By: #### L [id number] ####[facility] ([facility] [place] [address] ALP [Catalytic activity/Vol] 73 U/L Normal 34-[address] [facility] Comment on above: Performed By: #### L [id number] ####[facility] ([facility])[address] [place] [address] ALT [Catalytic activity/Vol] 91 U/L High 7-[address] [facility] Comment on above: Performed By: #### L [id number] ####[facility] ([facility])[address] [place] [address] Anion gap [Moles/Vol] 12 mmol/L Normal 7-[address] [facility] Comment on above: Performed By: #### L [id number] ####[facility] ([facility])[address] [place] [address] AST [Catalytic activity/Vol] 22 U/L Normal 13-[address] [facility] Comment on above: Performed By: #### L [id number] ####[facility] ([facility])[address] [place] [address] Bilirubin [Mass/Vol] 0.5 mg/dL Normal 0.3-1.[address] [facility] Comment on above: Performed By: #### L [id number] ####[facility] ([facility])[address] [place] [address] Calcium [Mass/Vol] 8.3 mg/dL Low 8.6-10.3 [facility] Comment on above: Performed By: #### L [id number] ####[facility] ([facility])[address] [place] [address] Chloride [Moles/Vol] 93 mmol/L Low 98-[address] [facility] Comment on above: Performed By: #### L [id number] ####[facility] ([facility])[address] [place] [address] CO2 [Moles/Vol] 31 mmol/L Normal 21-31 [facility] Comment on above: Performed By: #### L [id number] ####[facility] ([facility])[address] [place] [address] Creatinine [Mass/Vol] 0.73 mg/dL Normal 0.60-1.[address] [facility] Comment on above: Performed By: #### L [id number] ####[facility] ([facility])[address] [place] [address] GLOMERULAR FILTRATION RATE ML/MIN/1.73 SQ M.PREDICTED 80.0 mL/min/1.73m*2 Normal >60.[address] [facility] Comment on above: Result Comment: [facility]???s estimated glomerular filtration rate (eGFR) will [...] of individuals. Performed By: #### L [id number] ####[facility] ([facility])[address] [place] [address] Glucose [Mass/Vol] 161 mg/dL High 70-100 [facility] Comment on above: Performed By: #### L [id number] ####[facility] ([facility])[address] [place] [address] Potassium [Moles/Vol] 3.1 mmol/L Low 3.5-5.[address] [facility] Comment on above: Performed By: #### L [id number] ####[facility] ([facility])[address] [place] [address] Protein [Mass/Vol] 6.5 g/dL Normal 6.0-8.3 [facility] Comment on above: Performed By: #### L [id number] ####[facility] ([facility])[address] [place] [address] Sodium [Moles/Vol] 133 mmol/L Low 136-145 [facility] Comment on above: Performed By: #### L [id number] ####[facility] ([facility])[address] [facility] [address] Urea nitrogen [Mass/Vol] 18 mg/dL Normal 7-[address] [facility] Comment on above: Performed By: #### L [id number] ####[facility] ([facility])[address] [facility] [place] [address] UREA NITROGEN/CREATININ E (MASS RATIO) IN SER/PLAS 24.[address] [facility] Comment on above: Performed By: #### L [id number] ####[facility] [facility] [place] [address] HPon 03-13-[address] [facility] NON-FURNACE OPERATOR AND TENDER CYTOLOGY - CELLULAR EXAMon 03-13-2024 LAB AP CASE REPORT [facility] Comment on above: Result Comment: Non- gynecologic Cytology Case: [id number] Provider: Jami Su MD Collected: 03/13/2024 1229Ordering Location: [facility] Received: 03/14/2024 0805Pathologist: STEVEN Umañapecimen: Peritoneal fluid Performed By: #### L [id number] ####[facility] [facility] [address] LAB AP CLINICAL INFORMATION Normal [facility] Comment on above: Result Comment: Post -Op DiagnosesNo Dx found. Performed By: #### L [id number] ####[facility] ([facility] [place] [address] LAB AP GROSS DESCRIPTION Normal [facility] Comment on above: Result Comment: 300 mL cloudy, red fluid. Performed By: #### L [id number] ####[facility] ([facility] [address] LAB AP REPORT FINAL DIAGNOSIS NARRATIVE Normal [facility] Comment on above: Result Comment: A. P eritoneal fluid: - Negative for malignancy. - Marked acute inflammation. Performed By: #### L [id number] ####[facility] ([facility] [place] [address] NURSNOTEon 03-13-[address] [facility] PATHOLOGY REVIEWon PATHOLOGY REVIEW Reviewed. Normal [facility] Comment on above: Result Comment: Elec tronically signed by Harjit Castellon MD on 03/14/24 at 10:44 AM. Performed By: #### L [id number] ####[facility] ([facility])[address] [place] [address] POCT GLUCOSE METER UNSOLICIT ED RESULTSon 03-13-2024 Glucose [Mass/Vol] 131 mg/dL High 70-105 [facility] Comment on above: Order Comment: Waive d Testing in the ED is performed under the ED CLIA certificate #[id number]. Result Comment: [email or web address] Performed By: #### L [id number] ####[facility] ([employer])[address] [place] [address] Glucose [Mass/Vol] 110 mg/dL High 70-105 [facility] Comment on above: Order Comment: Waive d Testing in the ED is performed under the ED CLIA certificate #[id number]. Result Comment: [email or web address] Performed By: #### L [id number] ####[facility] ([employer])[address] [place] [address] Glucose [Mass/Vol] 120 mg/dL High 70-105 [facility] Comment on above: Order Comment: Waive d Testing in the ED is performed under the ED CLIA certificate #[id number]. Result Comment: [email or web address] Performed By: #### L [id number] ####[facility] ([employer])[address] [place] [address] PROTIME-INRon 03-13-2024 INR IN PPP BY COAGULATION ASSAY 1.48 High 0.90-1.[address] [facility] Comment on above: Result Comment: ACCC [...] CHEST 1995;108:[id number]. Performed By: #### L [id number] ####[facility] [employer])[address] [place] [address] PROTHROMBIN TIME (PT) IN PPP BY COAGULATION ASSAY 17.8 Seconds High 12.3-14.[address] [facility] Comment on above: Performed By: #### L [id number] ####[facility] ([employer])[address] [place] [address] 30on 03-12-[address] [facility] [address] [facility] [address] [facility] CBC WITH AUTO DIFFERENTIALon 03-12-2024 Basophils (Bld) [#/Vol] 0.05 10*3/uL Normal 0.00-0.[address] [facility] Comment on above: Performed By: #### L [id number] ####[facility] [employer])[address] [place] [address] Basophils/100 WBC (Bld) 0.5 % Normal 0.0-1.[address] [facility] Comment on above: Performed By: #### L [id number] ####[facility] [employer])[address] [place] [address] Eosinophils (Bld) [#/Vol] 0.28 10*3/uL Normal 0.00-0.[address] [facility] Comment on above: Performed By: #### L [id number] ####[facility] ([facility])[address] [place] [address] Eosinophils/100 WBC (Bld) 3.1 % Normal 0.0-6.[address] [facility] Comment on above: Performed By: #### L [id number] ####[facility] ([facility])[address] [place] [address] Erythrocyte distribution width (RBC) [Ratio] 18.3 % High 11.5-15.[address] [facility] Comment on above: Performed By: #### L [id number] ####[facility] ([facility])[address] [place] [address] ERYTHROCYTE MEAN CORPUSCULAR HEMOGLOBIN CONCENTRATION (G/DL) BY AUTOMATED 29.3 g/dL Low 32.0-35.[address] [facility] Comment on above: Performed By: #### L [id number] ####[facility] ([facility])[address] [place] [address] Hematocrit (Bld) [Volume fraction] 29.4 % Low 36.0-48.[address] [facility] Comment on above: Performed By: #### L [id number] ####[facility] [place] [address] Hemoglobin (Bld) [Mass/Vol] 8.6 g/dL Low 12.0-15.[address] [facility] Comment on above: Performed By: #### L [id number] ####[facility] ([facility] [place] [address] Immature granulocytes (Bld) [#/Vol] 0.08 10*3/uL Normal 0.00-0.[address] [facility] Comment on above: Performed By: #### L [id number] ####[facility] ([facility])[address] [place] [address] Immature granulocytes/100 WBC (Bld) 0.9 % Normal 0.0-1.[address] [facility] Comment on above: Performed By: #### L [id number] ####[facility] ([facility])[address] [place] [address] Lymphocytes (Bld) [#/Vol] 2.23 10*3/uL Normal 1.20-4.[address] [facility] Comment on above: Performed By: #### L [id number] ####[facility] ([facility])[address] [place] [address] Lymphocytes/100 WBC (Bld) 24.5 % Normal 20.0-45.[address] [facility] Comment on above: Performed By: #### L [id number] ####[facility] ([facility])[address] [place] [address] MCH (RBC) [Entitic mass] 22.3 pg Low 27.0-33.[address] [facility] Comment on above: Performed By: #### L [id number] ####[facility] ([facility])[address] [place] [address] MCV (RBC) [Entitic vol] 76.2 fL Low 82.0-98.[address] [facility] Comment on above: Performed By: #### L [id number] ####[facility] ([facility])[address] [place] [address] Monocytes (Bld) [#/Vol] 1.01 10*3/uL High 0.10-1.[address] [facility] Comment on above: Performed By: #### L [id number] ####[facility] ([facility])[address] [place] [address] Monocytes/100 WBC (Bld) 11.1 % Normal 5.0-12.[address] [facility] Comment on above: Performed By: #### L [id number] ####[facility] ([facility])[address] [place] [address] Neutrophils (Bld) [#/Vol] 5.45 10*3/uL Normal 1.60-7.[address] [facility] Comment on above: Performed By: #### L [id number] ####[facility] ([facility])[address] [place] [address] Neutrophils/100 WBC (Bld) 59.9 % Normal 40.0-72.[address] [facility] Comment on above: Performed By: #### L [id number] ####[facility] ([facility])[address] [place] [address] NRBC (PER 100 WBCS) BY AUTOMATED COUNT 0.0 % Normal [address] [facility] Comment on above: Performed By: #### L [id number] ####[facility] ([facility])[address] [place] [address] PLATELETS (10*3/UL) IN BLOOD AUTOMATED COUNT 363 10*3/uL Normal 150-[address] [facility] Comment on above: Performed By: #### L [id number] ####[facility] ([facility])[address] [place] [address] RBC (Bld) [#/Vol] 3.86 10*6/uL Normal 3.80-5.00 [facility] Comment on above: Performed By: #### L [id number] ####[facility] ([facility])[address] [place] [address] WBC (Bld) [#/Vol] 9.10 10*3/uL Normal 4.00-10.60 [facility] Comment on above: Performed By: #### L [id number] ####[facility] ([facility])[address] [place] [address] COMPREHENSIVE METABOLIC PANE Robbie 03-12-2024 Albumin [Mass/Vol] 3.0 g/dL Low 3.5-5.7 [facility] Comment on above: Performed By: #### L [id number] ####[facility] ([facility])[address] [place] [address] ALP [Catalytic activity/Vol] 67 U/L Normal 34-[address] [facility] Comment on above: Performed By: #### L [id number] ####[facility] ([facility])[address] [place] [address] ALT [Catalytic activity/Vol] 138 U/L High 7-[address] [facility] Comment on above: Performed By: #### L [id number] ####[facility] ([facility] [place] [address] Anion gap [Moles/Vol] 10 mmol/L Normal 7-[address] [facility] Comment on above: Performed By: #### L [id number] ####[facility] ([facility])[address] [place] [address] AST [Catalytic activity/Vol] 43 U/L High 13-[address] [facility] Comment on above: Performed By: #### L [id number] ####[facility] ([facility])[address] [place] [address] Bilirubin [Mass/Vol] 0.5 mg/dL Normal 0.3-1.[address] [facility] Comment on above: Performed By: #### L [id number] ####[facility] ([facility])[address] [place] [address] Calcium [Mass/Vol] 8.3 mg/dL Low 8.6-10.3 [facility] Comment on above: Performed By: #### L [id number] ####[facility] ([facility])[address] [place] [address] Chloride [Moles/Vol] 94 mmol/L Low 98-[address] [facility] Comment on above: Performed By: #### L [id number] ####[facility] ([facility] [place] [address] CO2 [Moles/Vol] 33 mmol/L High 21-31 [facility] Comment on above: Performed By: #### L [id number] ####[facility] ([facility] [place] [address] Creatinine [Mass/Vol] 0.75 mg/dL Normal 0.60-1.[address] [facility] Comment on above: Performed By: #### L [id number] ####[facility] ([facility] [place] [address] GLOMERULAR FILTRATION RATE ML/MIN/1.73 SQ M.PREDICTED 77.5 mL/min/1.73m*2 Normal >60.[address] [facility] Comment on above: Result Comment: [facility]???s estimated glomerular filtration rate (eGFR) will [...] of individuals. Performed By: #### L [id number] ####[facility] ([facility])[address] [place] [address] Glucose [Mass/Vol] 114 mg/dL High 70-100 [facility] Comment on above: Performed By: #### L [id number] ####[facility] ([facility])[address] [place] [address] Potassium [Moles/Vol] 3.6 mmol/L Normal 3.5-5.[address] [facility] Comment on above: Performed By: #### L [id number] ####[facility] ([facility])[address] [place] [address] Protein [Mass/Vol] 6.3 g/dL Normal 6.0-8.3 [facility] Comment on above: Performed By: #### L [id number] ####[facility] ([facility] [place] [address] Sodium [Moles/Vol] 133 mmol/L Low 136-145 [facility] Comment on above: Performed By: #### L [id number] ####[facility] ([facility] [place] [address] Urea nitrogen [Mass/Vol] 23 mg/dL Normal 7-[address] [facility] Comment on above: Performed By: #### L [id number] ####[facility] ([facility])[address] [place] [address] UREA NITROGEN/CREATININ E (MASS RATIO) IN SER/PLAS 30.7 [facility] Comment on above: Performed By: #### L [id number] ####[facility] ([facility])[address] [place] [address] CONSULTon 03-12-[address] [facility] POCT GLUCOSE METER UNSOLICIT ED RESULTSon 03-12-2024 Glucose [Mass/Vol] 143 mg/dL High 70-105 [facility] Comment on above: Order Comment: Waive d Testing in the ED is performed under the ED CLIA certificate #[id number]. Result Comment: [email or web address] Performed By: #### L [id number] ####[facility] ([facility])[address] [place] [address] Glucose [Mass/Vol] 126 mg/dL High 70-105 [facility] Comment on above: Order Comment: Waive d Testing in the ED is performed under the ED CLIA certificate #[id number]. Result Comment: [email or web address] Performed By: #### L [id number] ####[facility] ([facility])[address] [place] [address] Glucose [Mass/Vol] 150 mg/dL High 70-105 [facility] Comment on above: Order Comment: Waive d Testing in the ED is performed under the ED CLIA certificate #[id number]. Result Comment: [email or web address] Performed By: #### L [id number] ####[facility] ([facility])[address] [place] [address] Glucose [Mass/Vol] 113 mg/dL High 70-105 [facility] Comment on above: Order Comment: Waive d Testing in the ED is performed under the ED CLIA certificate #[id number]. Result Comment: [email or web address] [email or web address] Performed By: #### L [id number] ####[facility] ([facility])[address] [place] [address] Glucose [Mass/Vol] 141 mg/dL High 70-105 [facility] Comment on above: Order Comment: Waive d Testing in the ED is performed under the ED CLIA certificate #[id number]. Result Comment: [email or web address] [email or web address] Performed By: #### L [id number] ####[facility] ([facility])[address] [place] [address] SEDIMENTATION RATEon 024 SEDIMENTATION RATE, ERYTHROCYTE 60 mm/hr High <=[address] [facility] Comment on above: Performed By: #### L [id number] ####[facility] ([facility] [place] [address] 30on 03-11-[address] [facility] [address] [facility] CBC WITH AUTO DIFFERENTIALon 03-11-2024 Basophils (Bld) [#/Vol] 0.03 10*3/uL Normal 0.00-0.[address] [facility] Comment on above: Performed By: #### L [id number] ####[facility] ([facility])[address] [place] [address] Basophils/100 WBC (Bld) 0.3 % Normal 0.0-1.[address] [facility] Comment on above: Performed By: #### L [id number] ####[facility] ([facility])[address] [place] [address] Eosinophils (Bld) [#/Vol] 0.33 10*3/uL Normal 0.00-0.[address] [facility] Comment on above: Performed By: #### L [id number] ####[facility] ([facility])[address] [place] [address] Eosinophils/100 WBC (Bld) 3.5 % Normal 0.0-6.[address] [facility] Comment on above: Performed By: #### L [id number] ####[facility] ([facility])[address] [place] [address] Erythrocyte distribution width (RBC) [Ratio] 18.2 % High 11.5-15.[address] [facility] Comment on above: Performed By: #### L [id number] ####[facility] ([facility])[address] [place] [address] ERYTHROCYTE MEAN CORPUSCULAR HEMOGLOBIN CONCENTRATION (G/DL) BY AUTOMATED 29.9 g/dL Low 32.0-35.[address] [facility] Comment on above: Performed By: #### L [id number] ####[facility] ([facility] [place] [address] Hematocrit (Bld) [Volume fraction] 28.4 % Low 36.0-48.[address] [facility] Comment on above: Performed By: #### L [id number] ####[facility] ([facility])[address] [place] [address] Hemoglobin (Bld) [Mass/Vol] 8.5 g/dL Low 12.0-15.[address] [facility] Comment on above: Performed By: #### L [id number] ####[facility] ([facility] [place] [address] Immature granulocytes (Bld) [#/Vol] 0.07 10*3/uL Normal 0.00-0.[address] [facility] Comment on above: Performed By: #### L [id number] ####[facility] ([facility])[address] [place] [address] Immature granulocytes/100 WBC (Bld) 0.7 % Normal 0.0-1.[address] [facility] Comment on above: Performed By: #### L [id number] ####[facility] ([facility])[address] [place] [address] Lymphocytes (Bld) [#/Vol] 1.81 10*3/uL Normal 1.20-4.[address] [facility] Comment on above: Performed By: #### L [id number] ####[facility] ([facility])[address] [place] [address] Lymphocytes/100 WBC (Bld) 19.1 % Low 20.0-45.[address] [facility] Comment on above: Performed By: #### L [id number] ####[facility] ([facility])[address] [place] [address] MCH (RBC) [Entitic mass] 22.0 pg Low 27.0-33.[address] [facility] Comment on above: Performed By: #### L [id number] ####[facility] ([facility])[address] [place] [address] MCV (RBC) [Entitic vol] 73.6 fL Low 82.0-98.[address] [facility] Comment on above: Performed By: #### L [id number] ####[facility] ([facility])[address] [place] [address] Monocytes (Bld) [#/Vol] 1.25 10*3/uL High 0.10-1.[address] [facility] Comment on above: Performed By: #### L [id number] ####[facility] ([facility])[address] [place] [address] Monocytes/100 WBC (Bld) 13.2 % High 5.0-12.[address] [facility] Comment on above: Performed By: #### L [id number] ####[facility] ([facility])[address] [place] [address] Neutrophils (Bld) [#/Vol] 6.01 10*3/uL Normal 1.60-7.[address] [facility] Comment on above: Performed By: #### L [id number] ####[facility] ([facility])[address] [place] [address] Neutrophils/100 WBC (Bld) 63.2 % Normal 40.0-72.[address] [facility] Comment on above: Performed By: #### L [id number] ####[facility] ([facility])[address] [place] [address] NRBC (PER 100 WBCS) BY AUTOMATED COUNT 0.0 % Normal [address] [facility] Comment on above: Performed By: #### L [id number] ####[facility] ([facility])[address] [place] [address] PLATELETS (10*3/UL) IN BLOOD AUTOMATED COUNT 317 10*3/uL Normal 150-[address] [facility] Comment on above: Performed By: #### L [id number] ####[facility] ([facility])[address] [place] [address] RBC (Bld) [#/Vol] 3.86 10*6/uL Normal 3.80-5.00 [facility] Comment on above: Performed By: #### L [id number] ####[facility] ([facility])[address] [place] [address] WBC (Bld) [#/Vol] 9.50 10*3/uL Normal 4.00-10.60 [facility] Comment on above: Performed By: #### L [id number] ####[facility] ([facility])[address] [place] [address] COMPREHENSIVE METABOLIC PANE Robbie 03-11-2024 Albumin [Mass/Vol] 3.0 g/dL Low 3.5-5.7 [facility] Comment on above: Performed By: #### L [id number] ####[facility] ([facility])[address] [place] [address] ALP [Catalytic activity/Vol] 68 U/L Normal 34-[address] [facility] Comment on above: Performed By: #### L [id number] ####[facility] ([facility])[address] [place] [address] ALT [Catalytic activity/Vol] 179 U/L High 7-[address] [facility] Comment on above: Performed By: #### L [id number] ####[facility] ([facility])[address] [place] [address] Anion gap [Moles/Vol] 11 mmol/L Normal 7-[address] [facility] Comment on above: Performed By: #### L [id number] ####[facility] ([facility])[address] [place] [address] AST [Catalytic activity/Vol] 74 U/L High 13-[address] [facility] Comment on above: Performed By: #### L [id number] ####[facility] ([facility])[address] [place] [address] Bilirubin [Mass/Vol] 0.4 mg/dL Normal 0.3-1.[address] [facility] Comment on above: Performed By: #### L [id number] ####[facility] ([facility])[address] [place] [address] Calcium [Mass/Vol] 8.2 mg/dL Low 8.6-10.3 [facility] Comment on above: Performed By: #### L [id number] ####[facility] ([facility])[address] [place] [address] Chloride [Moles/Vol] 92 mmol/L Low 98-[address] [facility] Comment on above: Performed By: #### L [id number] ####[facility] ([facility])[address] [place] [address] CO2 [Moles/Vol] 33 mmol/L High 21-31 [facility] Comment on above: Performed By: #### L [id number] ####[facility] ([facility])[address] [place] [address] Creatinine [Mass/Vol] 0.74 mg/dL Normal 0.60-1.[address] [facility] Comment on above: Performed By: #### L [id number] ####[facility] ([facility])[address] [place] [address] GLOMERULAR FILTRATION RATE ML/MIN/1.73 SQ M.PREDICTED 78.7 mL/min/1.73m*2 Normal >60.[address] [facility] Comment on above: Result Comment: [facility]???s estimated glomerular filtration rate (eGFR) will [...] of individuals. Performed By: #### L [id number] ####[facility] ([facility])[address] [place] [address] Glucose [Mass/Vol] 91 mg/dL Normal 70-100 [facility] Comment on above: Performed By: #### L [id number] ####[facility] ([facility])[address] [place] [address] Potassium [Moles/Vol] 3.0 mmol/L Low 3.5-5.[address] [facility] Comment on above: Performed By: #### L [id number] ####[facility] ([facility])[address] [place] [address] Protein [Mass/Vol] 6.3 g/dL Normal 6.0-8.3 [facility] Comment on above: Performed By: #### L [id number] ####[facility] ([facility])[address] [place] [address] Sodium [Moles/Vol] 133 mmol/L Low 136-145 [facility] Comment on above: Performed By: #### L [id number] ####[facility] ([facility])[address] [place] [address] Urea nitrogen [Mass/Vol] 26 mg/dL High 7-[address] [facility] Comment on above: Performed By: #### L [id number] ####[facility] ([facility])[address] [place] [address] UREA NITROGEN/CREATININ E (MASS RATIO) IN SER/PLAS 35.[address] [facility] Comment on above: Performed By: #### L [id number] ####[facility] ([facility])[address] [place] [address] HEMOGLOBIN AND HEMATOCRIT, B LOODon 03-11-2024 Hematocrit (Bld) [Volume fraction] 28.2 % Low 36.0-48.[address] [facility] Comment on above: Performed By: #### L [id number] ####[facility] [place] [address] Hemoglobin (Bld) [Mass/Vol] 8.6 g/dL Low 12.0-15.[address] [facility] Comment on above: Performed By: #### L [id number] ####[facility] ([facility])[address] [place] [address] Hematocrit (Bld) [Volume fraction] 29.4 % Low 36.0-48.[address] [facility] Comment on above: Performed By: #### L [id number] ####[facility] ([facility])[address] [place] [address] Hemoglobin (Bld) [Mass/Vol] 8.6 g/dL Low 12.0-15.[address] [facility] Comment on above: Performed By: #### L [id number] ####[facility] ([facility])[address] [place] [address] POCT GLUCOSE METER UNSOLICIT ED RESULTSon 03-11-2024 Glucose [Mass/Vol] 129 mg/dL High 70-105 [facility] Comment on above: Order Comment: Waive d Testing in the ED is performed under the ED CLIA certificate #[id number]. Result Comment: [email or web address] Performed By: #### L [id number] ####[facility] ([facility])[address] [place] [address] Glucose [Mass/Vol] 175 mg/dL High 70-105 [facility] Comment on above: Order Comment: Waive d Testing in the ED is performed under the ED CLIA certificate #[id number]. Result Comment: [email or web address] Performed By: #### L [id number] ####[facility] ([facility])[address] [place] [address] Glucose [Mass/Vol] 120 mg/dL High 70-105 [facility] Comment on above: Order Comment: Waive d Testing in the ED is performed under the ED CLIA certificate #[id number]. Result Comment: [email or web address] Performed By: #### L [id number] ####[facility] ([facility])[address] [place] [address] Glucose [Mass/Vol] 116 mg/dL High 70-105 [facility] Comment on above: Order Comment: Waive d Testing in the ED is performed under the ED CLIA certificate #[id number]. Result Comment: [email or web address] Performed By: #### L [id number] ####[facility] ([facility])[address] [place] [address] 30on 03-10-[address] [facility] [address] [facility] CBC WITH AUTO DIFFERENTIALon 03-10-2024 Basophils (Bld) [#/Vol] 0.01 10*3/uL Normal 0.00-0.[address] [facility] Comment on above: Performed By: #### L [id number] ####[facility] ([facility])[address] [place] [address] Basophils/100 WBC (Bld) 0.1 % Normal 0.0-1.[address] [facility] Comment on above: Performed By: #### L [id number] ####[facility] ([facility])[address] [place] [address] Eosinophils (Bld) [#/Vol] 0.13 10*3/uL Normal 0.00-0.[address] [facility] Comment on above: Performed By: #### L [id number] ####[facility] ([facility])[address] [place] [address] Eosinophils/100 WBC (Bld) 1.2 % Normal 0.0-6.[address] [facility] Comment on above: Performed By: #### L [id number] ####[facility] ([facility])[address] [place] [address] Erythrocyte distribution width (RBC) [Ratio] 18.3 % High 11.5-15.[address] [facility] Comment on above: Performed By: #### L [id number] ####[facility] ([facility])[address] [place] [address] ERYTHROCYTE MEAN CORPUSCULAR HEMOGLOBIN CONCENTRATION (G/DL) BY AUTOMATED 29.6 g/dL Low 32.0-35.[address] [facility] Comment on above: Performed By: #### L [id number] ####[facility] ([facility])[address] [place] [address] Hematocrit (Bld) [Volume fraction] 27.7 % Low 36.0-48.[address] [facility] Comment on above: Performed By: #### L [id number] ####[facility] ([facility])[address] [place] [address] Hemoglobin (Bld) [Mass/Vol] 8.2 g/dL Low 12.0-15.[address] [facility] Comment on above: Performed By: #### L [id number] ####[facility] ([facility])[address] [place] [address] Immature granulocytes (Bld) [#/Vol] 0.08 10*3/uL Normal 0.00-0.[address] [facility] Comment on above: Performed By: #### L [id number] ####[facility] ([facility])[address] [place] [address] Immature granulocytes/100 WBC (Bld) 0.7 % Normal 0.0-1.[address] [facility] Comment on above: Performed By: #### L [id number] ####[facility] ([facility])[address] [place] [address] Lymphocytes (Bld) [#/Vol] 1.57 10*3/uL Normal 1.20-4.[address] [facility] Comment on above: Performed By: #### L [id number] ####[facility] ([facility])[address] [place] [address] Lymphocytes/100 WBC (Bld) 14.4 % Low 20.0-45.[address] [facility] Comment on above: Performed By: #### L [id number] ####[facility] ([facility])[address] [place] [address] MCH (RBC) [Entitic mass] 22.3 pg Low 27.0-33.[address] [facility] Comment on above: Performed By: #### L [id number] ####[facility] ([facility])[address] [place] [address] MCV (RBC) [Entitic vol] 75.5 fL Low 82.0-98.[address] [facility] Comment on above: Performed By: #### L [id number] ####[facility] ([facility])[address] [place] [address] Monocytes (Bld) [#/Vol] 1.35 10*3/uL High 0.10-1.[address] [facility] Comment on above: Performed By: #### L [id number] ####[facility] ([facility])[address] [place] [address] Monocytes/100 WBC (Bld) 12.4 % High 5.0-12.[address] [facility] Comment on above: Performed By: #### L [id number] ####[facility] ([facility])[address] [place] [address] Neutrophils (Bld) [#/Vol] 7.74 10*3/uL High 1.60-7.[address] [facility] Comment on above: Performed By: #### L [id number] ####[facility] ([facility])[address] [place] [address] Neutrophils/100 WBC (Bld) 71.2 % Normal 40.0-72.[address] [facility] Comment on above: Performed By: #### L [id number] ####[facility] ([facility])[address] [place] [address] NRBC (PER 100 WBCS) BY AUTOMATED COUNT 0.0 % Normal [address] [facility] Comment on above: Performed By: #### L [id number] ####[facility] [place] [address] PLATELETS (10*3/UL) IN BLOOD AUTOMATED COUNT 356 10*3/uL Normal 150-[address] [facility] Comment on above: Performed By: #### L [id number] ####[facility] ([facility] [place] [address] RBC (Bld) [#/Vol] 3.67 10*6/uL Low 3.80-5.00 [facility] Comment on above: Performed By: #### L [id number] ####[facility] ([facility] [place] [address] WBC (Bld) [#/Vol] 10.88 10*3/uL High 4.00-10.60 [facility] Comment on above: Performed By: #### L [id number] ####[facility] ([facility])[address] [place] [address] COMPREHENSIVE METABOLIC PANE Robbie 03-10-2024 Albumin [Mass/Vol] 3.1 g/dL Low 3.5-5.7 [facility] Comment on above: Performed By: #### L [id number] ####[facility] ([facility] [place] [address] ALP [Catalytic activity/Vol] 80 U/L Normal 34-[address] [facility] Comment on above: Performed By: #### L [id number] ####[facility] ([facility] [place] [address] ALT [Catalytic activity/Vol] 208 U/L High 7-[address] [facility] Comment on above: Performed By: #### L [id number] ####[facility] ([facility] [place] [address] Anion gap [Moles/Vol] 9 mmol/L Normal 7-[address] [facility] Comment on above: Performed By: #### L [id number] ####[facility] ([facility] [place] [address] AST [Catalytic activity/Vol] 88 U/L High 13-[address] [facility] Comment on above: Performed By: #### L [id number] ####[facility] ([facility] [place] [address] Bilirubin [Mass/Vol] 0.3 mg/dL Normal 0.3-1.[address] [facility] Comment on above: Performed By: #### L [id number] ####[facility] ([facility])[address] [place] [address] Calcium [Mass/Vol] 8.6 mg/dL Normal 8.6-10.3 [facility] Comment on above: Performed By: #### L [id number] ####[facility] ([facility] [place] [address] Chloride [Moles/Vol] 94 mmol/L Low 98-[address] [facility] Comment on above: Performed By: #### L [id number] ####[facility] ([place])[address] [place] [address] CO2 [Moles/Vol] 35 mmol/L High 21-31 [facility] Comment on above: Performed By: #### L [id number] ####[facility] ([place])[address] [place] [address] Creatinine [Mass/Vol] 0.93 mg/dL Normal 0.60-1.[address] [facility] Comment on above: Performed By: #### L [id number] ####[facility] ([facility])[address] [place] [address] GLOMERULAR FILTRATION RATE ML/MIN/1.73 SQ M.PREDICTED 59.9 mL/min/1.73m*2 Low >60.[address] [facility] Comment on above: Result Comment: [facility]???s estimated glomerular filtration rate (eGFR) will [...] of individuals. Performed By: #### L [id number] ####[facility] ([facility])[address] [place] [address] Glucose [Mass/Vol] 92 mg/dL Normal 70-100 [facility] Comment on above: Performed By: #### L [id number] ####[facility] ([facility] [place] [address] Potassium [Moles/Vol] 3.9 mmol/L Normal 3.5-5.[address] [facility] Comment on above: Performed By: #### L [id number] ####[facility] ([facility])[address] [place] [address] Protein [Mass/Vol] 6.6 g/dL Normal 6.0-8.3 [facility] Comment on above: Performed By: #### L [id number] ####[facility] ([facility])[address] [place] [address] Sodium [Moles/Vol] 134 mmol/L Low 136-145 [facility] Comment on above: Performed By: #### L [id number] ####[facility] ([facility])[address] [place] [address] Urea nitrogen [Mass/Vol] 34 mg/dL High 7-[address] [facility] Comment on above: Performed By: #### L [id number] ####[facility] ([facility])[address] [place] [address] UREA NITROGEN/CREATININ E (MASS RATIO) IN SER/PLAS 36.[address] [facility] Comment on above: Performed By: #### L [id number] ####[facility] ([facility])[address] [place] [address] CONSULTon 03-10-[address] [facility] CONSULT Normal [facility] CT ABDOMEN PELVIS W IV CONTR Jennifer 03-10-2024 CT ABDOMEN PELVIS W IV CONTRAST Invalid Interpretation Code [facility] HEMOGLOBIN AND HEMATOCRIT, B LOODon 03-10-2024 Hematocrit (Bld) [Volume fraction] 27.8 % Low 36.0-48.[address] [facility] Comment on above: Performed By: #### L [id number] ####[facility] ([facility])[address] [place] [address] Hemoglobin (Bld) [Mass/Vol] 8.4 g/dL Low 12.0-15.[address] [facility] Comment on above: Performed By: #### L [id number] ####[facility] ([facility])[address] [place] [address] POCT GLUCOSE METER UNSOLICIT ED RESULTSon 03-10-2024 Glucose [Mass/Vol] 155 mg/dL High 70-105 [facility] Comment on above: Order Comment: Waive d Testing in the ED is performed under the ED CLIA certificate #[id number]. Result Comment: shod [email or web address] Performed By: #### L [id number] ####[facility] ([facility])[address] [place] [address] Glucose [Mass/Vol] 114 mg/dL High 70-105 [facility] Comment on above: Order Comment: Waive d Testing in the ED is performed under the ED CLIA certificate #[id number]. Result Comment: shod [email or web address] Performed By: #### L [id number] ####[facility] ([facility])[address] [place] [address] Glucose [Mass/Vol] 110 mg/dL High 70-105 [facility] Comment on above: Order Comment: Waive d Testing in the ED is performed under the ED CLIA certificate #[id number]. Result Comment: shod [email or web address] Performed By: #### L [id number] ####[facility] ([facility])[address] [place] [address] Glucose [Mass/Vol] 113 mg/dL High 70-105 [facility] Comment on above: Order Comment: Waive d Testing in the ED is performed under the ED CLIA certificate #[id number]. Result Comment: [email or web address] Performed By: #### L [id number] ####[facility] ([facility])[address] [place] [address] 30on 03-09-[address] [facility] [address] [facility] B-TYPE NATRIURETIC PEPTIDEon 03-09-2024 Natriuretic peptide B (Bld) [Mass/Vol] 889 pg/mL High 0-[address] [facility] Comment on above: Performed By: #### L [id number] ####[facility] ([facility])[address] [place] [address] C-REACTIVE PROTEINon 024 C REACTIVE PROTEIN (MG/L) IN SER/PLAS 126.0 mg/L High 0.0-7.[address] [facility] Comment on above: Performed By: #### L [id number] ####[facility] ([facility])[address] [place] [address] COMPREHENSIVE METABOLIC PANE Robbie 03-09-2024 Albumin [Mass/Vol] 3.2 g/dL Low 3.5-5.7 [facility] Comment on above: Performed By: #### L [id number] ####[facility] ([facility])[address] [place] [address] ALP [Catalytic activity/Vol] 81 U/L Normal 34-[address] [facility] Comment on above: Performed By: #### L [id number] ####[facility] ([facility])[address] [place] [address] ALT [Catalytic activity/Vol] 237 U/L High 7-[address] [facility] Comment on above: Performed By: #### L [id number] ####[facility] ([facility] [place] [address] Anion gap [Moles/Vol] 14 mmol/L Normal 7-[address] [facility] Comment on above: Performed By: #### L [id number] ####[facility] ([facility])[address] [place] [address] AST [Catalytic activity/Vol] 130 U/L High 13-[address] [facility] Comment on above: Performed By: #### L [id number] ####[facility] ([facility] [place] [address] Bilirubin [Mass/Vol] 0.3 mg/dL Normal 0.3-1.[address] [facility] Comment on above: Performed By: #### L [id number] ####[facility] ([facility])[address] [place] [address] Calcium [Mass/Vol] 8.6 mg/dL Normal 8.6-10.3 [facility] Comment on above: Performed By: #### L [id number] ####[facility] ([facility])[address] [place] [address] Chloride [Moles/Vol] 93 mmol/L Low 98-[address] [facility] Comment on above: Performed By: #### L [id number] ####[facility] ([facility])[address] [place] [address] CO2 [Moles/Vol] 28 mmol/L Normal 21-31 [facility] Comment on above: Performed By: #### L [id number] ####[facility] ([facility])[address] [place] [address] Creatinine [Mass/Vol] 1.03 mg/dL Normal 0.60-1.[address] [facility] Comment on above: Performed By: #### L [id number] ####[facility] ([facility])[address] [place] [address] GLOMERULAR FILTRATION RATE ML/MIN/1.73 SQ M.PREDICTED 53.0 mL/min/1.73m*2 Low >60.[address] [facility] Comment on above: Result Comment: [facility]???s estimated glomerular filtration rate (eGFR) will [...] of individuals. Performed By: #### L [id number] ####[facility] ([facility])[address] [place] [address] Glucose [Mass/Vol] 123 mg/dL Normal [facility] Comment on above: Performed By: #### L [id number] ####[facility] ([facility])[address] [place] [address] Performed By: #### L [id number] ####[facility] ([facility])[address] [place] [address] Potassium [Moles/Vol] 3.9 mmol/L Normal 3.5-5.[address] [facility] Comment on above: Performed By: #### L [id number] ####[facility] ([facility])[address] [place] [address] Protein [Mass/Vol] 6.7 g/dL Normal 6.0-8.3 [facility] Comment on above: Performed By: #### L [id number] ####[facility] ([facility])[address] [place] [address] Sodium [Moles/Vol] 131 mmol/L Low 136-145 [facility] Comment on above: Performed By: #### L [id number] ####[facility] ([facility])[address] [place] [address] Urea nitrogen [Mass/Vol] 30 mg/dL High 7-[address] [facility] Comment on above: Performed By: #### L [id number] ####[facility] ([facility])[address] [place] [address] UREA NITROGEN/CREATININ E (MASS RATIO) IN SER/PLAS 29.[address] [facility] Comment on above: Performed By: #### L [id number] ####[facility] ([facility])[address] [place] [address] CONSULTon 03-09-[address] [facility] CONSULT Normal [facility] HEMOGLOBIN A1Con 03-09-2024 HbA1c (Bld) [Mass fraction] 5.9 % Normal 4.0-6.[address] [facility] Comment on above: Performed By: #### L [id number] ####[facility] ([facility])[address] [place] [address] HEMOGLOBIN AND HEMATOCRIT, B LOODon 03-09-2024 Hematocrit (Bld) [Volume fraction] 26.0 % Low 36.0-48.[address] [facility] Comment on above: Performed By: #### L [id number] ####[facility] ([facility])[address] [place] [address] Hemoglobin (Bld) [Mass/Vol] 7.7 g/dL Low 12.0-15.[address] [facility] Comment on above: Performed By: #### L [id number] ####[facility] ([facility])[address] [place] [address] Hematocrit (Bld) [Volume fraction] 26.8 % Low 36.0-48.[address] [facility] Comment on above: Performed By: #### L [id number] ####[facility] ([facility])[address] [place] [address] Hemoglobin (Bld) [Mass/Vol] 8.1 g/dL Low 12.0-15.[address] [facility] Comment on above: Performed By: #### L [id number] ####[facility] ([facility])[address] [place] [address] HPon 03-09-[address] [facility] IRON AND TIBCon 03-09-2024 IRON (UG/DL) IN SER/PLAS 11 ug/dL Low 50-[address] [facility] Comment on above: Performed By: #### L [id number] ####[facility] ([facility])[address] [place] [address] IRON BINDING CAPACITY (UG/DL) IN SER/PLAS 280 ug/dL Normal 250-[address] [facility] Comment on above: Performed By: #### L [id number] ####[facility] ([facility])[address] [place] [address] IRON BINDING CAPACITY.UNSATURAT ED (UG/DL) IN SER/PLAS 269.0 ug/dL Normal 155.0-355.[address] [facility] Comment on above: Performed By: #### L [id number] ####[facility] ([facility])[address] [place] [address] IRON SATURATION (%) IN SER/PLAS 4 % Low 20-[address] [facility] Comment on above: Performed By: #### L [id number] ####[facility] ([facility])[address] [place] [address] POCT GLUCOSE METER UNSOLICIT ED RESULTSon 03-09-2024 Glucose [Mass/Vol] 110 mg/dL High 70-105 [facility] Comment on above: Order Comment: Waive d Testing in the ED is performed under the ED CLIA certificate #[id number]. Result Comment: shod [email or web address] Performed By: #### L [id number] ####[facility] ([facility])[address] [place] [address] Glucose [Mass/Vol] 188 mg/dL High 70-105 [facility] Comment on above: Order Comment: Waive d Testing in the ED is performed under the ED CLIA certificate #[id number]. Result Comment: shod [email or web address] Performed By: #### L [id number] ####[facility] ([facility])[address] [place] [address] Glucose [Mass/Vol] 147 mg/dL High 70-105 [facility] Comment on above: Order Comment: Waive d Testing in the ED is performed under the ED CLIA certificate #[id number]. Result Comment: msig g Performed By: #### L [id number] ####[facility] ([facility])[address] [place] [address] SEDIMENTATION RATEon 024 SEDIMENTATION RATE, ERYTHROCYTE 65 mm/hr High <=[address] [facility] Comment on above: Performed By: #### L [id number] ####[facility] ([facility])[address] [place] [address] TROPONIN Ion 03-09-2024 Troponin I.cardiac [Mass/Vol] 0.01 ng/mL Normal 0.00-0.[address] [facility] Comment on above: Performed By: #### L [id number] ####[facility] ([facility])[address] [place] [address] Troponin I.cardiac [Mass/Vol] 0.01 ng/mL Normal 0.00-0.[address] [facility] Comment on above: Performed By: #### L [id number] ####[facility] ([facility])[address] [place] [address] TSH3 REFLEX TO FT4on 024 THYROTROPIN (MIU/L) IN SER/PLAS BY DETECTION LIMIT <= 0.05 MIU/L 1.31 mIU/L Normal 0.34-5.[address] [facility] Comment on above: Performed By: #### L [id number] ####[facility] ([facility])[address] [place] [address] VITAMIN B12on 03-09-2024 Cobalamin (Vitamin B12) [Mass/Vol] 417 pg/mL Normal 180-[address] [facility] Comment on above: Result Comment: REFE RENCE RANGES:180-914 pg/mL Mhtyze790-887 pg/mL Indeterminate<145 pg/mL Deficient Performed By: #### L [id number] ####[facility] ([facility])[address] [place] [address] APTTon 03-08-2024 ACTIVATED PARTIAL THROMBOPLASTIN TIME IN PPP BY COAGULATION ASSAY 49.7 Seconds High 25.0-35.[address] [facility] Comment on above: Result Comment: Clin ical significance of the APTT is questionable in the presence of heparin. Performed By: #### L [id number] ####[facility] ([facility])[address] [place] [address] B-TYPE NATRIURETIC PEPTIDEon 03-08-2024 Natriuretic peptide B (Bld) [Mass/Vol] 1085 pg/mL High 0-[address] [facility] Comment on above: Performed By: #### L [id number] ####[facility] ([facility])[address] [place] [address] CBC WITH AUTO DIFFERENTIALon 03-08-2024 Basophils (Bld) [#/Vol] 0.01 10*3/uL Normal 0.00-0.[address] [facility] Comment on above: Performed By: #### L [id number] ####[facility] ([facility])[address] [place] [address] Basophils/100 WBC (Bld) 0.1 % Normal 0.0-1.[address] [facility] Comment on above: Performed By: #### L [id number] ####[facility] ([facility])[address] [place] [address] Eosinophils (Bld) [#/Vol] 0.00 10*3/uL Normal 0.00-0.[address] [facility] Comment on above: Performed By: #### L [id number] ####[facility] ([facility])[address] [place] [address] Eosinophils/100 WBC (Bld) 0.0 % Normal 0.0-6.[address] [facility] Comment on above: Performed By: #### L [id number] ####[facility] ([facility])[address] [place] [address] Erythrocyte distribution width (RBC) [Ratio] 18.0 % High 11.5-15.[address] [facility] Comment on above: Performed By: #### L [id number] ####[facility] ([facility])[address] [place] [address] ERYTHROCYTE MEAN CORPUSCULAR HEMOGLOBIN CONCENTRATION (G/DL) BY AUTOMATED 30.7 g/dL Low 32.0-35.[address] [facility] Comment on above: Performed By: #### L [id number] ####[facility] ([facility])[address] [place] [address] Hematocrit (Bld) [Volume fraction] 26.4 % Low 36.0-48.[address] [facility] Comment on above: Performed By: #### L [id number] ####[facility] ([facility])[address] [place] [address] Hemoglobin (Bld) [Mass/Vol] 8.1 g/dL Low 12.0-15.[address] [facility] Comment on above: Performed By: #### L [id number] ####[facility] ([facility])[address] [place] [address] Immature granulocytes (Bld) [#/Vol] 0.10 10*3/uL Normal 0.00-0.[address] [facility] Comment on above: Performed By: #### L [id number] ####[facility] ([facility])[address] [place] [address] Immature granulocytes/100 WBC (Bld) 1.0 % Normal 0.0-1.[address] [facility] Comment on above: Performed By: #### L [id number] ####[facility] ([facility])[address] [place] [address] Lymphocytes (Bld) [#/Vol] 0.93 10*3/uL Low 1.20-4.[address] [facility] Comment on above: Performed By: #### L [id number] ####[facility] ([facility])[address] [place] [address] Lymphocytes/100 WBC (Bld) 8.8 % Low 20.0-45.[address] [facility] Comment on above: Performed By: #### L [id number] ####[facility] ([facility])[address] [place] [address] MCH (RBC) [Entitic mass] 22.2 pg Low 27.0-33.[address] [facility] Comment on above: Performed By: #### L [id number] ####[facility] ([facility])[address] [place] [address] MCV (RBC) [Entitic vol] 72.3 fL Low 82.0-98.[address] [facility] Comment on above: Performed By: #### L [id number] ####[facility] ([facility])[address] [place] [address] Monocytes (Bld) [#/Vol] 0.55 10*3/uL Normal 0.10-1.[address] [facility] Comment on above: Performed By: #### L [id number] ####[facility] [place] [address] Monocytes/100 WBC (Bld) 5.2 % Normal 5.0-12.[address] [facility] Comment on above: Performed By: #### L [id number] ####[facility] ([facility])[address] [place] [address] Neutrophils (Bld) [#/Vol] 8.92 10*3/uL High 1.60-7.[address] [facility] Comment on above: Performed By: #### L [id number] ####[facility] [place] [address] Neutrophils/100 WBC (Bld) 84.9 % High 40.0-72.[address] [facility] Comment on above: Performed By: #### L [id number] ####[facility] ([facility])[address] [place] [address] NRBC (PER 100 WBCS) BY AUTOMATED COUNT 0.0 % Normal [address] [facility] Comment on above: Performed By: #### L [id number] ####[facility] ([facility])[address] [place] [address] PLATELETS (10*3/UL) IN BLOOD AUTOMATED COUNT 307 10*3/uL Normal 150-[address] [facility] Comment on above: Performed By: #### L [id number] ####[facility] ([facility])[address] [place] [address] RBC (Bld) [#/Vol] 3.65 10*6/uL Low 3.80-5.00 [facility] Comment on above: Performed By: #### L [id number] ####[facility] ([facility])[address] [place] [address] WBC (Bld) [#/Vol] 10.51 10*3/uL Normal 4.00-10.60 [facility] Comment on above: Performed By: #### L [id number] ####[facility] [place] [address] COMPREHENSIVE METABOLIC PANE Robbie 03-08-2024 Albumin [Mass/Vol] 3.3 g/dL Low 3.5-5.7 [facility] Comment on above: Performed By: #### L [id number] ####[facility] ([facility])[address] [place] [address] ALP [Catalytic activity/Vol] 95 U/L Normal 34-[address] [facility] Comment on above: Performed By: #### L [id number] ####[facility] ([facility])[address] [place] [address] ALT [Catalytic activity/Vol] 272 U/L High 7-[address] [facility] Comment on above: Performed By: #### L [id number] ####[facility] ([facility])[address] [place] [address] Anion gap [Moles/Vol] 13 mmol/L Normal 7-[address] [facility] Comment on above: Performed By: #### L [id number] ####[facility] ([facility])[address] [place] [address] AST [Catalytic activity/Vol] 197 U/L High 13-[address] [facility] Comment on above: Performed By: #### L [id number] ####[facility] ([facility])[address] [place] [address] Bilirubin [Mass/Vol] 0.3 mg/dL Normal 0.3-1.[address] [facility] Comment on above: Performed By: #### L [id number] ####[facility] ([facility])[address] [place] [address] Calcium [Mass/Vol] 8.5 mg/dL Low 8.6-10.3 [facility] Comment on above: Performed By: #### L [id number] ####[facility] ([facility])[address] [place] [address] Chloride [Moles/Vol] 90 mmol/L Low 98-[address] [facility] Comment on above: Performed By: #### L [id number] ####[facility] ([facility] [place] [address] CO2 [Moles/Vol] 27 mmol/L Normal 21-31 [facility] Comment on above: Performed By: #### L [id number] ####[facility] [facility] [place] [address] Creatinine [Mass/Vol] 1.02 mg/dL Normal 0.60-1.[address] [facility] Comment on above: Performed By: #### L [id number] ####[facility] ([facility])[address] [place] [address] GLOMERULAR FILTRATION RATE ML/MIN/1.73 SQ M.PREDICTED 53.6 mL/min/1.73m*2 Low >60.[address] [facility] Comment on above: Result Comment: [facility]???s estimated glomerular filtration rate (eGFR) will [...] of individuals. Performed By: #### L [id number] ####[facility] ([facility])[address] [place] [address] Glucose [Mass/Vol] 201 mg/dL High 70-100 [facility] Comment on above: Performed By: #### L [id number] ####[facility] ([facility])[address] [place] [address] Potassium [Moles/Vol] 3.6 mmol/L Normal 3.5-5.[address] [facility] Comment on above: Performed By: #### L [id number] ####[facility] ([facility] [place] [address] Protein [Mass/Vol] 6.7 g/dL Normal 6.0-8.3 [facility] Comment on above: Performed By: #### L [id number] ####[facility] ([facility])[address] [address] Sodium [Moles/Vol] 126 mmol/L Low 136-145 [facility] Comment on above: Performed By: #### L [id number] ####[facility] ([facility])[address] [place] [address] Urea nitrogen [Mass/Vol] 34 mg/dL High -[address] [facility] Comment on above: Performed By: #### L [id number] ####[facility] ([facility])[address] [place] [address] UREA NITROGEN/CREATININ E (MASS RATIO) IN SER/PLAS 33.[address] [facility] Comment on above: Performed By: #### L [id number] ####[facility] ([facility])[address] [place] [address] HPon 03-08-[address] [facility] LACTIC ACID WITH 4 HOUR REFL EXon 03-08-2024 LACTATE (MMOL/L) IN SER/PLAS 1.8 mmol/L Normal 0.5-2.[address] [facility] Comment on above: Performed By: #### L [id number] ####[facility] ([facility])[address] [place] [address] MAGNESIUMon 03-08-2024 Magnesium [Mass/Vol] 1.8 mg/dL Low 1.9-2.[address] [facility] Comment on above: Performed By: #### L [id number] ####[facility] ([facility])[address] [place] [address] PHOSPHORUSon 03-08-2024 Magnesium [Mass/Vol] 4.5 mg/dL Normal 2.5-5.[address] [facility] Comment on above: Performed By: #### L [id number] ####[facility] ([facility])[address] [place] [address] POCT GLUCOSE METER UNSOLICIT ED RESULTSon 03-08-2024 Glucose [Mass/Vol] 210 mg/dL High 70-[facility] Comment on above: Order Comment: Waive d Testing in the ED is performed under the ED CLIA certificate #[id number]. Result Comment: msig g Performed By: #### L [id number] ####[facility] ([employer])[address] [place] [address] PROTIME-INRon 03-08-2024 INR IN PPP BY COAGULATION ASSAY 2.32 High 0.90-1.[address] [facility] Comment on above: Result Comment: ACCC [...] CHEST 1995;[id number]. Performed By: #### L [id number] ####[facility] [employer])[address] [place] [address] PROTHROMBIN TIME (PT) IN PPP BY COAGULATION ASSAY 25.0 Seconds High 12.3-14.[address] [facility] Comment on above: Performed By: #### L [id number] ####[facility] [employer])[address] [place] [address] TROPONIN Ion 03-08-2024 Troponin I.cardiac [Mass/Vol] 0.01 ng/mL Normal 0.00-0.[address] [facility] Comment on above: Performed By: #### L [id number] ####[facility] ([facility])[address] [place] [address] HVF 24-2 STANDARD - OUon HVF 24-2 STANDARD - OU See note Normal [facility] Perimetry studyon 12-01-2023 See note RADIOLOGY [facility] Radiology Study observation (narrative) [facility] ECG 12 leadon 06-28-2023 Atrial Rate [facility] P Rule [facility] P-R Interval [facility] Q-T Interval [facility] Q-T Interval (corrected) [facility] QRS Duration [facility] QTC Calculation (Bezet) [facility] R Rule [facility] T Rule [facility] Ventricular Rate [facility] 36on 06-15-2023 36 Spoke with patient a nd she is back to taking the diltiazem how Mary wanted her to and she's feeling fine. BP isn't as low, but still up and down. Normal [facility] 36on 06-10-[address] [facility] OCT OPTIC NERVE OUon 023 OCT OPTIC NERVE OU See note Normal [facility] Ophthalmic OCT panelon 05-31 See note RADIOLOGY [facility] Radiology Study observation (narrative) [facility] YAG LASER-OSon 05-31-2023 YAG LASER-OS See note Normal [facility] See note [facility] 36on 04-27-2023 36 That is fine she can stop...has she been treated for the yeast at least ? Normal [facility] Basic Metabolic Profon 03-09 Anion gap [Moles/Vol] 9 mmol/L Normal 05-01 [facility] Comment on above: Performed By: #### B MP, BNP #### [facility] [address] [place] [address] Automatic [employer] Operator: Jay Peter MD BUN/CRE Ratio 10 Normal 9-20 [facility] Comment on above: Performed By: #### B MP, BNP #### [facility] [address] [place] [address] Automatic [employer] Operator: Jay Peter MD Calcium [Mass/Vol] 9.0 mg/dL Normal 8.6-10.4 [facility] Comment on above: Performed By: #### B MP, BNP #### [facility] [address] [place] [address] [employer] Operator: Jay Peter MD Chloride [Moles/Vol] 96 mmol/L Low 98-107 [facility] Comment on above: Performed By: #### B MP, BNP #### [facility] [address] [place] [address] [employer] Operator: Jay Peter MD CO2 [Moles/Vol] 28 mmol/L Normal 20-31 [facility] Comment on above: Performed By: #### B MP, BNP #### [facility] [address] [place] [address] Automatic [employer] Operator: Jay Peter MD Creatinine [Mass/Vol] 0.9 mg/dL Normal 0.5-0.9 [facility] Comment on above: Performed By: #### B MP, BNP #### [facility] [address] [place] [address] Automatic [employer] Operator: Jay Peter MD GFR/1.73 sq M.predicted among non-blacks MDRD (S/P/Bld) [Vol rate/Area] mL/min/{1.73_m2} Normal >60 [facility] Comment on above: Result Comment: These results [...] Performed By: #### B MP, BNP #### [facility] [address] [place], [place] [id number] [employer] Operator: Jay Peter MD Glucose [Mass/Vol] 162 mg/dL High 70-99 [facility] Comment on above: Performed By: #### B MP, BNP #### [facility] [address] [place] [address] Automatic [employer] Operator: Jay Peter MD Potassium [Moles/Vol] 4.3 mmol/L Normal 3.7-5.3 [facility] Comment on above: Performed By: #### B MP, BNP #### [facility] [address] [place] [address] [place] [address] Automatic [employer] Operator: Jay Peter MD Sodium [Moles/Vol] 133 mmol/L Low 135-144 [facility] Comment on above: Performed By: #### B MP, BNP #### [address] [place] [address] Automatic [employer] Operator: Jay Peter MD Urea nitrogen [Mass/Vol] 9 mg/dL Normal 8-23 [facility] Comment on above: Performed By: #### B MP, BNP #### [facility] [address] [place] [address] [address] [place], [place] [id number] Automatic [employer] Operator: Jay Peter MD Brain Natri. Peptideon 03-09 Natriuretic peptide B (Bld) [Mass/Vol] 1518 pg/mL High <300 [facility] Comment on above: Result Comment: An age-independent cutoff point of 300 pg/ml has a 98% negative predictive value excluding acute heart failure. Performed By: #### B MP, BNP #### [facility] [address] [place], [place] [id number] Automatic [employer] Operator: Jay Peter MD PROF CHEM 8 (BAS METB)on Anion gap [Moles/Vol] 10.1 mmol/L Normal [facility] Comment on above: Performed By: #### L IPID, T7, CMP, TSH #### [facility] [address] [address] [address] Jorge Glaser Calcium [Mass/Vol] 9.1 mg/dL Normal 8.5-10.1 [facility] Comment on above: Performed By: #### L IPID, T7, CMP, TSH #### [facility] [address] [address] [address] Jorge Glaser Chloride [Moles/Vol] 98 mmol/L Normal 98-107 [facility] Comment on above: Performed By: #### L IPID, T7, CMP, TSH #### [facility] [address] [address] [address] Jorge Glaser CO2 [Moles/Vol] 32.1 mmol/L Critically high 21.0-32.0 [facility] Comment on above: Performed By: #### L IPID, T7, CMP, TSH #### [facility] [address] [address] [address] Jorge Glaser Creatinine [Mass/Vol] 0.93 mg/dL Normal 0.55-1.02 [facility] Comment on above: Performed By: #### L IPID, T7, CMP, TSH #### [facility] [address] [address] [address] Jorge Glaser EGFR-AF CYMRAES >60 Normal >=60 [facility] Comment on above: Performed By: #### L IPID, T7, CMP, TSH #### [facility] [address] [address] [address] Jorge Glaser EGFR-NON AF CYMRAES 57 mL/min/1.73m2 Critically low >=60 [facility] Comment on above: Performed By: #### L IPID, T7, CMP, TSH #### [facility] [address] [address] [address] Jorge Glaser Glucose [Mass/Vol] 103 mg/dL Normal 74-106 [facility] Comment on above: Performed By: #### L IPID, T7, CMP, TSH #### [facility] [address] [address] [address] Jorge Glaser Potassium [Moles/Vol] 4.2 mmol/L Normal 3.5-5.1 [facility] Comment on above: Performed By: #### L IPID, T7, CMP, TSH #### [facility] [address] [place] [address] Dr. Jorge Glaser Sodium [Moles/Vol] 136 mmol/L Normal 136-145 [facility] Comment on above: Performed By: #### L IPID, T7, CMP, TSH #### [facility] [address] [place] [address] Dr. Jorge Glaser Urea nitrogen [Mass/Vol] 16.0 mg/dL Normal 7.0-18.0 [facility] Comment on above: Performed By: #### L IPID, T7, CMP, TSH #### [facility] [address] [place] [address] Dr. Jorge Glaser Urea nitrogen/Creatinin e [Mass ratio] 17.2 mg/mg Normal [facility] Comment on above: Performed By: #### L IPID, T7, CMP, TSH #### [facility] [address] [place] [address] Dr. Jroge Glaser BNPon 12-01-2022 Natriuretic peptide B (Bld) [Mass/Vol] 379.0 pg/mL Normal <=1,800.0 [facility] Comment on above: Performed By: #### L IPID, T7, CMP, TSH #### [facility] [address] [place] [address] Dr. Jorge Glaser CBC AUTO DIFFon 12-01-2022 BASO # 0.1 103/ul Normal 0.0-0.1 [facility] Comment on above: Performed By: #### C BC #### [facility] [address] [place] [address] Dr. Jorge Glaser Basophils/100 WBC (Bld) 1.3 % Normal 0.2-2.0 [facility] Comment on above: Performed By: #### C BC #### [facility] [address] [address] [address] Jorge Glaser EO # 0.2 103/ul Normal 0.0-0.7 [facility] Comment on above: Performed By: #### C BC #### [facility] [address] [address] [address] Jorge Glaser Eosinophils/100 WBC (Bld) 3.1 % Normal 0.9-7.0 [facility] Comment on above: Performed By: #### C BC #### [facility] [address] [place] [address] Dr. Jorge Glaser Erythrocyte distribution width (RBC) [Ratio] 14.4 % Normal 11.0-15.0 [facility] Comment on above: Performed By: #### C BC #### [facility] [address] [place] [address] Dr. Jorge Glaser Hematocrit (Bld) [Volume fraction] 36.1 % Normal 36.0-48.0 [facility] Comment on above: Performed By: #### C BC #### [facility] [address] [place] [address] Dr. Jorge Glaser Hemoglobin (Bld) [Mass/Vol] 11.5 g/dL Critically low 12.0-16.0 [facility] Comment on above: Performed By: #### C BC #### [facility] [address] [address] [address] Jorge Glaser IG # 0.05 10e3/ul Critically high 0.00-0.03 [facility] Comment on above: Performed By: #### C BC #### [facility] [address] [address] [address] Jorge Glaser IG % 0.6 % Critically high 0.0-0.5 [facility] Comment on above: Performed By: #### C BC #### [facility] [address] [address] [address] Jorge Glaser LYMPH # 1.7 103/ul Normal 1.2-3.8 [facility] Comment on above: Performed By: #### C BC #### [facility] [address] [place] [address] Dr. Jorge Glaser Lymphocytes/100 WBC (Bld) 21.2 % Normal 20.5-60.0 [facility] Comment on above: Performed By: #### C BC #### [facility] [address] [place] [address] Dr. Jorge Glaser MANUAL DIFF REQ NO Normal [facility] Comment on above: Performed By: #### C BC #### [facility] [address] [place] [address] Dr. Jorge Glaser MCH (RBC) [Entitic mass] 27.3 pg Normal 26.7-34.0 [facility] Comment on above: Performed By: #### C BC #### [facility] [address] [place] [address] Dr. Jorge Glaser MCHC (RBC) [Mass/Vol] 31.9 g/dL Normal 29.9-35.2 [facility] Comment on above: Performed By: #### C BC #### [facility] [address] [place] [address] Dr. Jorge Glaser MCV (RBC) [Entitic vol] 85.5 fL Normal 81.0-99.0 [facility] Comment on above: Performed By: #### C BC #### [facility] [address] [place] [address] Dr. Jorge Glaser MONO # 0.8 103/ul Normal 0.3-0.8 [facility] Comment on above: Performed By: #### C BC #### [facility] [address] [place] [address] Dr. Jorge Glaser Monocytes/100 WBC (Bld) 10.5 % Normal 1.7-12.0 [facility] Comment on above: Performed By: #### C BC #### [facility] [address] [place] [address] Dr. Jorge Glaser NEUT # 4.9 103/ul Normal 1.4-6.5 [facility] Comment on above: Performed By: #### C BC #### [facility] [address] [address] [address] Jorge Glaser Neutrophils/100 WBC (Bld) 63.3 % Normal 43.0-75.0 [facility] Comment on above: Performed By: #### C BC #### [facility] [address] [address] [address] Jorge Glaser Platelet mean volume (Bld) [Entitic vol] 8.7 fL Critically low 9.5-13.5 [facility] Comment on above: Performed By: #### C BC #### [facility] [address] [address] [address] Jorge Glaser PLT 226 103/ul Normal 150-450 [facility] Comment on above: Performed By: #### C BC #### [facility] [address] [place] [address] Dr. Jorge Glaser RBC 4.22 106/ul Normal 4.20-5.40 [facility] Comment on above: Performed By: #### C BC #### [facility] [address] [place] [address] Dr. Jorge Glaser WBC 7.8 103/ul Normal 4.0-11.0 [facility] Comment on above: Performed By: #### C BC #### [facility] [address] [place] [address] Dr. Jorge Glaser FREE THYROXINE INDEX T7on FTI 2.17 Normal 1.30-4.50 [facility] Comment on above: Performed By: #### L IPID, T7, CMP, TSH #### [facility] [address] [place] [address] Dr. Jorge Glaser T3U 31.0 % Normal 30.0-39.0 [facility] Comment on above: Performed By: #### L IPID, T7, CMP, TSH #### [facility] [address] [place] [address] Dr. Jorge Glaser T4 [Mass/Vol] 7.00 ug/dL Normal 4.80-13.90 [facility] Comment on above: Performed By: #### L IPID, T7, CMP, TSH #### [facility] [address] [place] [address] Dr. Jorge Glaser PROF 14(COMP METB)on 023 Albumin [Mass/Vol] 3.5 g/dL Normal 3.4-5.0 [facility] Comment on above: Performed By: #### L IPID, T7, CMP, TSH #### [facility] [address] [place] [address] Dr. Jorge Glaser Albumin/Globulin [Mass ratio] 0.9 {ratio} Normal [facility] Comment on above: Performed By: #### L IPID, T7, CMP, TSH #### [facility] [address] [place] [address] Dr. Jorge Glaser ALP [Catalytic activity/Vol] 56 U/L Normal 46-116 [facility] Comment on above: Performed By: #### L IPID, T7, CMP, TSH #### [facility] [address] [place] [address] Dr. Jorge Glaser ALT [Catalytic activity/Vol] 28 U/L Normal 14-59 [facility] Comment on above: Performed By: #### L IPID, T7, CMP, TSH #### [facility] [address] [place] [address] Dr. Jorge Glaser Anion gap [Moles/Vol] 10.2 mmol/L Normal [facility] Comment on above: Performed By: #### L IPID, T7, CMP, TSH #### [facility] [address] [place] [address] Dr. Jorge Glaser AST [Catalytic activity/Vol] 20 U/L Normal 15-37 [facility] Comment on above: Performed By: #### L IPID, T7, CMP, TSH #### [facility] [address] [place] [address] Dr. Jorge Glaser Bilirubin [Mass/Vol] 0.4 mg/dL Normal 0.2-1.0 [facility] Comment on above: Performed By: #### L IPID, T7, CMP, TSH #### [facility] [address] [place] [address] Dr. Jorge Glaser Calcium [Mass/Vol] 9.8 mg/dL Normal 8.5-10.1 [facility] Comment on above: Performed By: #### L IPID, T7, CMP, TSH #### [facility] [address] [address] [address] Jorge Glaser Chloride [Moles/Vol] 93 mmol/L Critically low 98-107 [facility] Comment on above: Performed By: #### L IPID, T7, CMP, TSH #### [facility] [address] [address] [address] Jorge Glaser CO2 [Moles/Vol] 34.5 mmol/L Critically high 21.0-32.0 [facility] Comment on above: Performed By: #### L IPID, T7, CMP, TSH #### [facility] [address] [address] [address] Jorge Glaser Creatinine [Mass/Vol] 1.01 mg/dL Normal 0.55-1.02 [facility] Comment on above: Performed By: #### L IPID, T7, CMP, TSH #### [facility] [address] [address] [address] Jorge Glaser EGFR-AF CYMRAES >60 Normal >=60 [facility] Comment on above: Performed By: #### L IPID, T7, CMP, TSH #### [facility] [address] [address] [address] Jorge Glaser EGFR-NON AF CYMRAES 52 mL/min/1.73m2 Critically low >=60 [facility] Comment on above: Performed By: #### L IPID, T7, CMP, TSH #### [facility] [address] [address] [address] Jorge Glaser Globulin (S) [Mass/Vol] 4.0 g/dL Normal [facility] Comment on above: Performed By: #### L IPID, T7, CMP, TSH #### [facility] [address] [address] [address] Jorge Glaser Glucose [Mass/Vol] 103 mg/dL Normal 74-106 [facility] Comment on above: Performed By: #### L IPID, T7, CMP, TSH #### [facility] [address] [address] [address] Jorge Glaser Potassium [Moles/Vol] 3.7 mmol/L Normal 3.5-5.1 [facility] Comment on above: Performed By: #### L IPID, T7, CMP, TSH #### [facility] [address] [place] [address] Dr. Jorge Glaser Protein [Mass/Vol] 7.5 g/dL Normal 6.4-8.2 [facility] Comment on above: Performed By: #### L IPID, T7, CMP, TSH #### [facility] [address] [place] [address] Dr. Jorge Glaser Sodium [Moles/Vol] 134 mmol/L Critically low 136-145 [facility] Comment on above: Performed By: #### L IPID, T7, CMP, TSH #### [facility] [address] [place] [address] Dr. Jorge Glaser Urea nitrogen [Mass/Vol] 17.0 mg/dL Normal 7.0-18.0 [facility] Comment on above: Performed By: #### L IPID, T7, CMP, TSH #### [facility] [address] [place] [address] Dr. Jorge Glaser Urea nitrogen/Creatinin e [Mass ratio] 16.8 mg/mg Normal [facility] Comment on above: Performed By: #### L IPID, T7, CMP, TSH #### [facility] [address] [place] [address] Dr. Jorge Glaser TSHon 12-01-2022 TSH 4.022 uIU/mL Critically high 0.358-3.740 [facility] Comment on above: Performed By: #### L IPID, T7, CMP, TSH #### [facility] [address] [place] [address] Dr. Jorge Glaser XR CHEST 2 Von [...] ABIMBOLA AMADOR Date: 2022-12-01 13:06 Normal [facility] FREE T3on 11-11-2022 FREE T3 2.51 pg/mlL Normal 2.18-3.98 [facility] Comment on above: Performed By: #### L IPID, T7, CMP, TSH #### [facility] [address] [place] [address] Dr. Jorge Glaser T4on 11-11-2022 T4 [Mass/Vol] 6.00 ug/dL Normal 4.80-13.90 [facility] Comment on above: Performed By: #### L IPID, T7, CMP, TSH #### [facility] [address] [place] [address] Dr. Jorge Glaser TSHon 11-11-2022 TSH 4.223 uIU/mL Critically high 0.358-3.740 [facility] Comment on above: Performed By: #### L IPID, T7, CMP, TSH #### [facility] [address] [place] [address] Dr. Jorge Glaser BNPon 11-04-2022 Natriuretic peptide B (Bld) [Mass/Vol] 479.0 pg/mL Normal <=1,800.0 [facility] Comment on above: Performed By: #### L IPID, T7, CMP, TSH #### [facility] [address] [place] [address] Dr. Jorge Glaser CBC AUTO DIFFon 11-04-2022 BASO # 0.1 103/ul Normal 0.0-0.1 [facility] Comment on above: Performed By: #### C BC #### [facility] [address] [place] [address] Dr. Jorge Glaser Basophils/100 WBC (Bld) 0.8 % Normal 0.2-2.0 [facility] Comment on above: Performed By: #### C BC #### [facility] [address] [address] [address] Jorge Glaser EO # 0.1 103/ul Normal 0.0-0.7 [facility] Comment on above: Performed By: #### C BC #### [facility] [address] [address] [address] Jorge Galser Eosinophils/100 WBC (Bld) 0.8 % Critically low 0.9-7.0 [facility] Comment on above: Performed By: #### C BC #### [facility] [address] [address] [address] Jorge Glaser Erythrocyte distribution width (RBC) [Ratio] 13.9 % Normal 11.0-15.0 [facility] Comment on above: Performed By: #### C BC #### [facility] [address] [place] [address] Dr. Jorge Glaser Hematocrit (Bld) [Volume fraction] 37.7 % Normal 36.0-48.0 [facility] Comment on above: Performed By: #### C BC #### [facility] Laboratory [address] [place] [address] Dr. Jorge Glaser Hemoglobin (Bld) [Mass/Vol] 12.2 g/dL Normal 12.0-16.0 [facility] Comment on above: Performed By: #### C BC #### [facility] [address] [place] [address] Dr. Jorge Glaser IG # 0.14 10e3/ul Critically high 0.00-0.03 [facility] Comment on above: Performed By: #### C BC #### [facility] [address] [address] [address] Jorge Glaser IG % 1.1 % Critically high 0.0-0.5 [facility] Comment on above: Performed By: #### C BC #### [facility] [address] [place] [address] Dr. Jorge Glaser LYMPH # 1.6 103/ul Normal 1.2-3.8 [facility] Comment on above: Performed By: #### C BC #### [facility] [address] [place] [address] Dr. Jorge Glaser Lymphocytes/100 WBC (Bld) 11.8 % Critically low 20.5-60.0 [facility] Comment on above: Performed By: #### C BC #### [facility] [address] [place] [address] Dr. Jorge Glaser MANUAL DIFF REQ NO Normal [facility] Comment on above: Performed By: #### C BC #### [facility] [address] [place] [address] Dr. Jorge Glaser MCH (RBC) [Entitic mass] 28.2 pg Normal 26.7-34.0 [facility] Comment on above: Performed By: #### C BC #### [facility] [address] [place] [address] Dr. Jorge Glaser MCHC (RBC) [Mass/Vol] 32.4 g/dL Normal 29.9-35.2 [facility] Comment on above: Performed By: #### C BC #### [facility] [address] [place] [address] Dr. Jorge Glaser MCV (RBC) [Entitic vol] 87.3 fL Normal 81.0-99.0 [facility] Comment on above: Performed By: #### C BC #### [facility] [address] [place] [address] Dr. Jorge Glaser MONO # 0.8 103/ul Normal 0.3-0.8 [facility] Comment on above: Performed By: #### C BC #### [facility] [address] [place] [address] Dr. Jorge Glaser Monocytes/100 WBC (Bld) 5.9 % Normal 1.7-12.0 [facility] Comment on above: Performed By: #### C BC #### [facility] [address] [place] [address] Dr. Jorge Glaser NEUT # 10.4 103/ul Critically high 1.4-6.5 [facility] Comment on above: Performed By: #### C BC #### [facility] [address] [place], [place] [address] Dr. Jorge Glaser Neutrophils/100 WBC (Bld) 79.6 % Critically high 43.0-75.0 [facility] Comment on above: Performed By: #### C BC #### [facility] [address] [address] [address] Jorge Glaser Platelet mean volume (Bld) [Entitic vol] 9.0 fL Critically low 9.5-13.5 [facility] Comment on above: Performed By: #### C BC #### [facility] [address] [address] [address] Jorge Glaser PLT 216 103/ul Normal 150-450 [facility] Comment on above: Performed By: #### C BC #### [facility] [address] [address] [address] Jorge Glaser RBC 4.32 106/ul Normal 4.20-5.40 [facility] Comment on above: Performed By: #### C BC #### [facility] [address] [address] [address] Jorge Glaser WBC 13.1 103/ul Critically high 4.0-11.0 [facility] Comment on above: Performed By: #### C BC #### [facility] [address] [place] [address] Dr. Jorge Glaser ECHOCARDIO M/2D COMPLETEon 0 11-04-2022 ECHOCARDIO M/2D COMPLETE Patient: KAREN GIFFORD Exam Date: 11/04/2022 : 1935 Gender:F Ordering : CHILANGO SANDOVAL [facility] Admission #: [id number] Family : Order #: [id number] CLICK HERE TO VIEW EXAM ECHOCARDIOGRAM REPORT [...] Area (VTI): 2.20 cm2, 2.20 cm2 Deceleration Roberts: 2.65 m/s2 Pressure Half-Time: 481.67 ms Peak [...] M.D. on 11/04/2022 at 22:09 Normal [facility] PROF CHEM 8 (BAS METB)on Anion gap [Moles/Vol] 10.6 mmol/L Normal [facility] Comment on above: Performed By: #### L IPID, T7, CMP, TSH #### [facility] [address] [address] [address] Jorge Glaser Calcium [Mass/Vol] 9.5 mg/dL Normal 8.5-10.1 [facility] Comment on above: Performed By: #### L IPID, T7, CMP, TSH #### [facility] [address] [address] [address] Jorge Glaser Chloride [Moles/Vol] 97 mmol/L Critically low 98-107 [facility] Comment on above: Performed By: #### L IPID, T7, CMP, TSH #### [facility] [address] [address] [address] Jorge Glaser CO2 [Moles/Vol] 32.3 mmol/L Critically high 21.0-32.0 [facility] Comment on above: Performed By: #### L IPID, T7, CMP, TSH #### [facility] [address] [address] [address] Jorge Glaser Creatinine [Mass/Vol] 0.79 mg/dL Normal 0.55-1.02 [facility] Comment on above: Performed By: #### L IPID, T7, CMP, TSH #### [facility] [address] [address] [address] Jorge Glaser EGFR-AF CYMRAES >60 Normal >=60 [facility] Comment on above: Performed By: #### L IPID, T7, CMP, TSH #### [facility] [address] [place] [address] Dr. Jorge Glaser EGFR-NON AF CYMRAES >60 Normal >=60 [facility] Comment on above: Performed By: #### L IPID, T7, CMP, TSH #### [facility] [address] [address] [address] Jorge Glaser Glucose [Mass/Vol] 161 mg/dL Critically high 74-106 [facility] Comment on above: Performed By: #### L IPID, T7, CMP, TSH #### [facility] [address] [address] [address] Jorge Glaser Potassium [Moles/Vol] 3.9 mmol/L Normal 3.5-5.1 [facility] Comment on above: Performed By: #### L IPID, T7, CMP, TSH #### [facility] [address] [address] [address] Jorge Glaser Sodium [Moles/Vol] 136 mmol/L Normal 136-145 [facility] Comment on above: Performed By: #### L IPID, T7, CMP, TSH #### [facility] [address] [address] [address] Jorge Glaser Urea nitrogen [Mass/Vol] 20.0 mg/dL Critically high 7.0-18.0 [facility] Comment on above: Performed By: #### L IPID, T7, CMP, TSH #### [facility] [address] [address] [address] Jorge Glaser Urea nitrogen/Creatinin e [Mass ratio] 25.3 mg/mg Normal [facility] Comment on above: Performed By: #### L IPID, T7, CMP, TSH #### [facility] [address] [address] [address] Jorge Glaser FREE T3on 10-04-2022 FREE T3 2.15 pg/mlL Critically low 2.18-3.98 [facility] Comment on above: Performed By: #### L IPID, T7, CMP, TSH #### [facility] [address] [place] [address] Dr. Jorge Glaser POTASSIUMon 10-04-2022 Potassium [Moles/Vol] 3.5 mmol/L Normal 3.5-5.1 [facility] Comment on above: Performed By: #### L IPID, T7, CMP, TSH #### [facility] [address] [address] [address] Jorge Glaser T4on 10-04-2022 T4 [Mass/Vol] 6.50 ug/dL Normal 4.80-13.90 [facility] Comment on above: Performed By: #### T 4, TSH, FT3, K #### [facility] [address] [place] [address] Dr. Jorge Glaser TSHon 10-04-2022 TSH 4.603 uIU/mL Critically high 0.358-3.740 [facility] Comment on above: Performed By: #### L IPID, T7, CMP, TSH #### [facility] [address] [place] [address] Dr. Jorge Glaser OCC BLD IMMUNO SCREENon 08-15 OCCULT BLOOD Negative Normal NEGATIVE [facility] Comment on above: Performed By: #### O BSCRN #### [facility] [address] [place] [address] Dr. Jorge Glaser CBC AUTO DIFFon 09-01-2022 BASO # 0.1 103/ul Normal 0.0-0.1 [facility] Comment on above: Performed By: #### L IPID, T7, CMP, TSH #### [facility] [address] [address] [address] Jorge Glaser Basophils/100 WBC (Bld) 1.0 % Normal 0.2-2.0 [facility] Comment on above: Performed By: #### L IPID, T7, CMP, TSH #### [facility] [address] [place] [address] Dr. Jroge Glaser EO # 0.3 103/ul Normal 0.0-0.7 [facility] Comment on above: Performed By: #### L IPID, T7, CMP, TSH #### [facility] [address] [place] [address] Dr. Jorge Glaser Eosinophils/100 WBC (Bld) 3.8 % Normal 0.9-7.0 [facility] Comment on above: Performed By: #### L IPID, T7, CMP, TSH #### [facility] [address] [address] [address] Jorge Glaser Erythrocyte distribution width (RBC) [Ratio] 13.4 % Normal 11.0-15.0 [facility] Comment on above: Performed By: #### L IPID, T7, CMP, TSH #### [facility] [address] [place] [address] Dr. Jorge Glaser Hematocrit (Bld) [Volume fraction] 39.0 % Normal 36.0-48.0 [facility] Comment on above: Performed By: #### L IPID, T7, CMP, TSH #### [facility] [address] [place] [address] Dr. Jorge Glaser Hemoglobin (Bld) [Mass/Vol] 12.8 g/dL Normal 12.0-16.0 [facility] Comment on above: Performed By: #### L IPID, T7, CMP, TSH #### [facility] [address] [place] [address] Dr. Jorge Glaser IG # 0.10 10e3/ul Critically high 0.00-0.03 [facility] Comment on above: Performed By: #### L IPID, T7, CMP, TSH #### [facility] [address] [place] [address] Dr. Jorge Glaser IG % 1.1 % Critically high 0.0-0.5 [facility] Comment on above: Performed By: #### L IPID, T7, CMP, TSH #### [facility] [address] [place] [address] Dr. Jorge Glaser LYMPH # 2.3 103/ul Normal 1.2-3.8 [facility] Comment on above: Performed By: #### L IPID, T7, CMP, TSH #### [facility] [address] [place] [address] Dr. Jorge Glaser Lymphocytes/100 WBC (Bld) 26.9 % Normal 20.5-60.0 [facility] Comment on above: Performed By: #### L IPID, T7, CMP, TSH #### [facility] [address] [place] [address] Dr. Jorge Glaser MANUAL DIFF REQ NO Normal [facility] Comment on above: Performed By: #### L IPID, T7, CMP, TSH #### [facility] [address] [place] [address] Dr. Jorge Glaser MCH (RBC) [Entitic mass] 29.4 pg Normal 26.7-34.0 [facility] Comment on above: Performed By: #### L IPID, T7, CMP, TSH #### [facility] [address] [place] [address] Dr. Jorge Glaser MCHC (RBC) [Mass/Vol] 32.8 g/dL Normal 29.9-35.2 [facility] Comment on above: Performed By: #### L IPID, T7, CMP, TSH #### [facility] [address] [place] [address] Dr. Jorge Glaesr MCV (RBC) [Entitic vol] 89.7 fL Normal 81.0-99.0 [facility] Comment on above: Performed By: #### L IPID, T7, CMP, TSH #### [facility] [address] [place] [address] Dr. Jorge Glaser MONO # 0.8 103/ul Normal 0.3-0.8 [facility] Comment on above: Performed By: #### L IPID, T7, CMP, TSH #### [facility] [address] [place] [address] Dr. Jorge Glaser Monocytes/100 WBC (Bld) 9.1 % Normal 1.7-12.0 [facility] Comment on above: Performed By: #### L IPID, T7, CMP, TSH #### [facility] [address] [place] [address] Dr. Jorge Glaser NEUT # 5.1 103/ul Normal 1.4-6.5 [facility] Comment on above: Performed By: #### L IPID, T7, CMP, TSH #### [facility] [address] [place] [address] Dr. Jorge Glaser Neutrophils/100 WBC (Bld) 58.1 % Normal 43.0-75.0 [facility] Comment on above: Performed By: #### L IPID, T7, CMP, TSH #### [facility] [address] [place] [address] Dr. Jorge Glaser Platelet mean volume (Bld) [Entitic vol] 8.8 fL Critically low 9.5-13.5 [facility] Comment on above: Performed By: #### L IPID, T7, CMP, TSH #### [facility] [address] [place] [address] Dr. Jorge Glaser PLT 158 103/ul Normal 150-450 [facility] Comment on above: Performed By: #### L IPID, T7, CMP, TSH #### [facility] [address] [place] [address] Dr. Jorge Glaser RBC 4.35 106/ul Normal 4.20-5.40 [facility] Comment on above: Performed By: #### L IPID, T7, CMP, TSH #### [facility] [address] [place] [address] Dr. Jorge Glaser WBC 8.7 103/ul Normal 4.0-11.0 [facility] Comment on above: Performed By: #### L IPID, T7, CMP, TSH #### [facility] [address] [address] [address] Jorge Glaser FREE THYROXINE INDEX T7on FTI 2.15 Normal 1.30-4.50 [facility] Comment on above: Performed By: #### L IPID, T7, CMP, TSH #### [facility] [address] [place] [address] Dr. Jorge Glaser T3U 33.0 % Normal 30.0-39.0 [facility] Comment on above: Performed By: #### L IPID, T7, CMP, TSH #### [facility] [address] [place] [address] Dr. Jorge Glaser T4 [Mass/Vol] 6.50 ug/dL Normal 4.80-13.90 [facility] Comment on above: Performed By: #### L IPID, T7, CMP, TSH #### [facility] [address] [place] [address] Dr. Jorge Glaser GLYCOHEMOGLOBIN A1Con 2022 ADA RECOMMENDATION SEE BELOW Normal [facility] Comment on above: Result Comment: ADA RECOMMENDED LIMIT 4.0 - 6.0 ADA THERAPEUTIC TARGET < 7.0 ACTION SUGGESTED > 7.0 Performed By: #### A 1C #### [facility] [address] [place] [address] Dr. Jorge Glaser Glucose [Mass/Vol] 137 mg/dL Normal [facility] Comment on above: Performed By: #### A 1C #### [facility] [address] [place] [address] Dr. Jorge Glaser HbA1c (Bld) [Mass fraction] 6.4 % Critically high 4.5-6.2 [facility] Comment on above: Performed By: #### A 1C #### [facility] [address] [place] [address] Dr. Jorge Glaser IRONon 09-01-2022 Iron [Mass/Vol] 58.0 ug/dL Normal 50.0-170.0 [facility] Comment on above: Performed By: #### I DAVID #### [facility] [address] [place] [address] Dr. Jorge Glaser LIPID PROFILEon 09-01-2022 CHOL-HDL RATIO NORM SEE BELOW Normal [facility] Comment on above: Result Comment: 3.3 - 4.4 LOW RISK 4.4 - 7.1 AVERAGE RISK 7.1 - 11.0 MODERATE RISK >11.0 HIGH RISK Performed By: #### L IPID, T7, CMP, TSH #### [facility] [address] [place] [address] Dr. Jorge Glaser Cholesterol [Mass/Vol] 128 mg/dL Normal <=200 [facility] Comment on above: Performed By: #### L IPID, T7, CMP, TSH #### [facility] [address] [place] [address] Dr. Jorge Glaser Cholesterol in HDL [Mass/Vol] 61 mg/dL Critically high 40-60 [facility] Comment on above: Performed By: #### L IPID, T7, CMP, TSH #### [facility] [address] [address] [address] Jorge Glaser Cholesterol in LDL [Mass/Vol] 49.0 mg/dL Normal [facility] Comment on above: Performed By: #### L IPID, T7, CMP, TSH #### [facility] [address] [address] [address] Jorge Glaser Cholesterol.total/ Cholesterol in HDL [Mass ratio] 2.1 {ratio} Normal [facility] Comment on above: Performed By: #### L IPID, T7, CMP, TSH #### [facility] [address] [place] [address] Dr. Jorge Glaser HDL NORMAL > or = 60 mg/dl - LO W CARDIOVASCULAR RISK <40 mg/dl - HIGH CARDIOVASCULAR RISK Normal [facility] Comment on above: Performed By: #### L IPID, T7, CMP, TSH #### [facility] [address] [address] [address] Jorge Glaser LDL CALC NORMAL SEE BELOW Normal [facility] Comment on above: Result Comment: <100 mg/dl OPTIMAL 100 - 129 mg/dl NEAR OR ABOVE OPTIMAL 130 - 159 mg/dl BORDERLINE HIGH 160 - 189 mg/dl HIGH >190 mg/dl VERY HIGH Performed By: #### L IPID, T7, CMP, TSH #### [facility] [address] [address] [address] Jorge Glaser Triglyceride [Mass/Vol] 90 mg/dL Normal <=150 [facility] Comment on above: Performed By: #### L IPID, T7, CMP, TSH #### [facility] [address] [address] [address] Jorge Glaser VLDL CALC 18.0 mg/dL Normal [facility] Comment on above: Performed By: #### L IPID, T7, CMP, TSH #### [facility] [address] [address] [address] Jorge Glaser PROF 14(COMP METB)on 023 Albumin [Mass/Vol] 3.5 g/dL Normal 3.4-5.0 [facility] Comment on above: Performed By: #### L IPID, T7, CMP, TSH #### [facility] [address] [address] [address] Jorge Glaser Albumin/Globulin [Mass ratio] 1.1 {ratio} Normal [facility] Comment on above: Performed By: #### L IPID, T7, CMP, TSH #### [facility] [address] [address] [address] Jorge Glaser ALP [Catalytic activity/Vol] 42 U/L Critically low 46-116 [facility] Comment on above: Performed By: #### L IPID, T7, CMP, TSH #### [facility] [address] [address] [address] Jorge Glaser ALT [Catalytic activity/Vol] 23 U/L Normal 14-59 [facility] Comment on above: Performed By: #### L IPID, T7, CMP, TSH #### [facility] [address] [address] [address] Jorge Glaser Anion gap [Moles/Vol] 10.0 mmol/L Normal [facility] Comment on above: Performed By: #### L IPID, T7, CMP, TSH #### [facility] [address] [address] [address] Jorge Glaser AST [Catalytic activity/Vol] 21 U/L Normal 15-37 [facility] Comment on above: Performed By: #### L IPID, T7, CMP, TSH #### [facility] [address] [address] [address] Jorge Glaser Bilirubin [Mass/Vol] 0.5 mg/dL Normal 0.2-1.0 [facility] Comment on above: Performed By: #### L IPID, T7, CMP, TSH #### [facility] [address] [place] [address] Dr. Jorge Glaser Calcium [Mass/Vol] 9.2 mg/dL Normal 8.5-10.1 [facility] Comment on above: Performed By: #### L IPID, T7, CMP, TSH #### [facility] [address] [address] [address] Jorge Glaser Chloride [Moles/Vol] 99 mmol/L Normal 98-107 [facility] Comment on above: Performed By: #### L IPID, T7, CMP, TSH #### [facility] [address] [address] [address] Jorge Glaser CO2 [Moles/Vol] 32.2 mmol/L Critically high 21.0-32.0 [facility] Comment on above: Performed By: #### L IPID, T7, CMP, TSH #### [facility] [address] [address] [address] Jorge Glaser Creatinine [Mass/Vol] 0.78 mg/dL Normal 0.55-1.02 [facility] Comment on above: Performed By: #### L IPID, T7, CMP, TSH #### [facility] [address] [address] [address] Jorge Glaser EGFR-AF CYMRAES >60 Normal >=60 [facility] Comment on above: Performed By: #### L IPID, T7, CMP, TSH #### [facility] [address] [address] [address] Jorge Glaser EGFR-NON AF CYMRAES >60 Normal >=60 [facility] Comment on above: Performed By: #### L IPID, T7, CMP, TSH #### [facility] [address] [address] [address] Jorge Glaser Globulin (S) [Mass/Vol] 3.2 g/dL Normal [facility] Comment on above: Performed By: #### L IPID, T7, CMP, TSH #### [facility] [address] [place] [address] Dr. Jorge Glaser Glucose [Mass/Vol] 100 mg/dL Normal 74-106 [facility] Comment on above: Performed By: #### L IPID, T7, CMP, TSH #### [facility] [address] [address] [address] Jorge Glaser Potassium [Moles/Vol] 3.2 mmol/L Critically low 3.5-5.1 [facility] Comment on above: Performed By: #### L IPID, T7, CMP, TSH #### [facility] [address] [place] [address] Dr. Jorge Glaser Protein [Mass/Vol] 6.7 g/dL Normal 6.4-8.2 [facility] Comment on above: Performed By: #### L IPID, T7, CMP, TSH #### [facility] [address] [place] [address] Dr. Jorge Glaser Sodium [Moles/Vol] 138 mmol/L Normal 136-145 [facility] Comment on above: Performed By: #### L IPID, T7, CMP, TSH #### [facility] [address] [place] [address] Dr. Jorge Glaser Urea nitrogen [Mass/Vol] 17.0 mg/dL Normal 7.0-18.0 [facility] Comment on above: Performed By: #### L IPID, T7, CMP, TSH #### [facility] [address] [address] [address] Jorge Glaser Urea nitrogen/Creatinin e [Mass ratio] 21.8 mg/mg Normal [facility] Comment on above: Performed By: #### L IPID, T7, CMP, TSH #### [facility] [address] [address] [address] Jorge Glaser TSHon 09-01-2022 TSH 4.483 uIU/mL Critically high 0.358-3.740 [facility] Comment on above: Performed By: #### L IPID, T7, CMP, TSH #### [facility] [address] [address] [address] Jorge Glaser XR DEXA BONE DENSITYon [...] by: KD DALY Date: 2022-08-27 16:23 Normal [facility] CBC AUTO DIFFon 05-22-2022 BASO # 0.1 103/ul Normal 0.0-0.1 [facility] Comment on above: Performed By: #### L IPID, T7, CMP, TSH #### [facility] [address] [address] [address] Jorge Glaser Basophils/100 WBC (Bld) 0.5 % Normal 0.2-2.0 [facility] Comment on above: Performed By: #### L IPID, T7, CMP, TSH #### [facility] [address] [address] [address] Jorge Glaser EO # 0.2 103/ul Normal 0.0-0.7 [facility] Comment on above: Performed By: #### L IPID, T7, CMP, TSH #### [facility] [address] [place] [address] Dr. Jorge Glaser Eosinophils/100 WBC (Bld) 2.0 % Normal 0.9-7.0 [facility] Comment on above: Performed By: #### L IPID, T7, CMP, TSH #### [facility] [address] [place] [address] Dr. Jorge Glaser Erythrocyte distribution width (RBC) [Ratio] 14.1 % Normal 11.0-15.0 [facility] Comment on above: Performed By: #### L IPID, T7, CMP, TSH #### [facility] [address] [place] [address] Dr. Jorge Glaser Hematocrit (Bld) [Volume fraction] 42.2 % Normal 36.0-48.0 [facility] Comment on above: Performed By: #### L IPID, T7, CMP, TSH #### [facility] [address] [place] [address] Dr. Jorge Glaser Hemoglobin (Bld) [Mass/Vol] 14.2 g/dL Normal 12.0-16.0 [facility] Comment on above: Performed By: #### L IPID, T7, CMP, TSH #### [facility] [address] [place] [address] Dr. Jorge Glaser IG # 0.08 10e3/ul Critically high 0.00-0.03 [facility] Comment on above: Performed By: #### L IPID, T7, CMP, TSH #### [facility] [address] [place] [address] Dr. Jorge Glaser IG % 0.8 % Critically high 0.0-0.5 [facility] Comment on above: Performed By: #### L IPID, T7, CMP, TSH #### [facility] [address] [place] [address] Dr. Jorge Glaser LYMPH # 1.2 103/ul Normal 1.2-3.8 [facility] Comment on above: Performed By: #### L IPID, T7, CMP, TSH #### [facility] [address] [address] [address] Jorge Glaser Lymphocytes/100 WBC (Bld) 11.9 % Critically low 20.5-60.0 [facility] Comment on above: Performed By: #### L IPID, T7, CMP, TSH #### [facility] [address] [place] [address] Dr. Jorge Glaser MANUAL DIFF REQ NO Normal [facility] Comment on above: Performed By: #### L IPID, T7, CMP, TSH #### [facility] [address] [place] [address] Dr. Jorge Glaser MCH (RBC) [Entitic mass] 30.8 pg Normal 26.7-34.0 [facility] Comment on above: Performed By: #### L IPID, T7, CMP, TSH #### [facility] [address] [place] [address] Dr. Jorge Glaser MCHC (RBC) [Mass/Vol] 33.6 g/dL Normal 29.9-35.2 [facility] Comment on above: Performed By: #### L IPID, T7, CMP, TSH #### [facility] [address] [place] [address] Dr. Jorge Glaser MCV (RBC) [Entitic vol] 91.5 fL Normal 81.0-99.0 [facility] Comment on above: Performed By: #### L IPID, T7, CMP, TSH #### [facility] [address] [place] [address] Dr. Jorge Glaser MONO # 0.5 103/ul Normal 0.3-0.8 [facility] Comment on above: Performed By: #### L IPID, T7, CMP, TSH #### [facility] [address] [place] [address] Dr. Jorge Glaser Monocytes/100 WBC (Bld) 5.0 % Normal 1.7-12.0 [facility] Comment on above: Performed By: #### L IPID, T7, CMP, TSH #### [facility] [address] [place] [address] Dr. Jorge Glaser NEUT # 8.3 103/ul Critically high 1.4-6.5 [facility] Comment on above: Performed By: #### L IPID, T7, CMP, TSH #### [facility] [address] [place] [address] Dr. Jorge Glaser Neutrophils/100 WBC (Bld) 79.8 % Critically high 43.0-75.0 [facility] Comment on above: Performed By: #### L IPID, T7, CMP, TSH #### [facility] [address] [place] [address] Dr. Jorge Glaser Platelet mean volume (Bld) [Entitic vol] 9.0 fL Critically low 9.5-13.5 [facility] Comment on above: Performed By: #### L IPID, T7, CMP, TSH #### [facility] [address] [place] [address] Dr. Jorge Glaser PLT 154 103/ul Normal 150-450 [facility] Comment on above: Performed By: #### L IPID, T7, CMP, TSH #### [facility] [address] [place] [address] Dr. Jorge Glaser RBC 4.61 106/ul Normal 4.20-5.40 [facility] Comment on above: Performed By: #### L IPID, T7, CMP, TSH #### [facility] [address] [place] [address] Dr. Jorge Glaser WBC 10.4 103/ul Normal 4.0-11.0 [facility] Comment on above: Performed By: #### L IPID, T7, CMP, TSH #### [facility] [address] [place] [address] Dr. Jorge Glaser PROF CHEM 8 (BAS METB)on Anion gap [Moles/Vol] 9.0 mmol/L Normal [facility] Comment on above: Performed By: #### L IPID, T7, CMP, TSH #### [facility] [address] [address] [address] Jorge Glaser Calcium [Mass/Vol] 10.0 mg/dL Normal 8.5-10.1 [facility] Comment on above: Performed By: #### L IPID, T7, CMP, TSH #### [facility] [address] [place] [address] Dr. Jorge Glaser Chloride [Moles/Vol] 94 mmol/L Critically low 98-107 [facility] Comment on above: Performed By: #### L IPID, T7, CMP, TSH #### [facility] [address] [place] [address] Dr. Jorge Glaser CO2 [Moles/Vol] 31.4 mmol/L Normal 21.0-32.0 [facility] Comment on above: Performed By: #### L IPID, T7, CMP, TSH #### [facility] [address] [place] [address] Dr. Jorge Glaser Creatinine [Mass/Vol] 0.69 mg/dL Normal 0.55-1.02 [facility] Comment on above: Performed By: #### L IPID, T7, CMP, TSH #### [facility] [address] [place] [address] Dr. Jroge Glaser EGFR-AF CYMRAES >60 Normal >=60 [facility] Comment on above: Performed By: #### L IPID, T7, CMP, TSH #### [facility] [address] [place] [address] Dr. Jorge Glaser EGFR-NON AF CYMRAES >60 Normal >=60 [facility] Comment on above: Performed By: #### L IPID, T7, CMP, TSH #### [facility] [address] [place] [address] Dr. Jorge Glaser Glucose [Mass/Vol] 129 mg/dL Critically high 74-106 [facility] Comment on above: Performed By: #### L IPID, T7, CMP, TSH #### [facility] [address] [place] [address] Dr. Jorge Glaser Potassium [Moles/Vol] 3.4 mmol/L Critically low 3.5-5.1 [facility] Comment on above: Performed By: #### L IPID, T7, CMP, TSH #### [facility] [address] [address] [address] Jorge Glaser Sodium [Moles/Vol] 131 mmol/L Critically low 136-145 [facility] Comment on above: Performed By: #### L IPID, T7, CMP, TSH #### [facility] [address] [address] [address] Jorge Glaser Urea nitrogen [Mass/Vol] 17.0 mg/dL Normal 7.0-18.0 [facility] Comment on above: Performed By: #### L IPID, T7, CMP, TSH #### [facility] [address] [address] [address] Jorge Glaser Urea nitrogen/Creatinin e [Mass ratio] 24.6 mg/mg Normal [facility] Comment on above: Performed By: #### L IPID, T7, CMP, TSH #### [facility] [address] [address] [address] Jorge Glaser NM STRESS/REST MULTIon 03-22 NM STRESS/REST MULTI Patient: KAREN GIFFORD Exam Date: 03/22/2022 : 1935 Gender:F Ordering : DR VINCENZO PATEL . Admission #: [id number] Family : CHILANGO BelleChloé LORI [facility] Order #: [id number] CLICK HERE TO VIEW EXAM RADIOLOGY REPORT [...] Rachel MD on 03/23/2022 at 11:42 Normal [facility] Vital Signs Date Time Vital Sign Value Performing Clinician Facility 04-19-2024 11:17-0400 Blood Pressure Location Avtar [employer] [facility] 04-19-2024 11:17-0400 Diastolic blood pressure 74 mm[Hg] Avtar JAYL [facility] 04-19-2024 11:17-0400 Heart rate 79 /min Avtar [employer] [facility] 04-19-2024 11:17-0400 Respiratory rate 16 /min Avtar JAYIndeed [facility] 04-19-2024 11:17-0400 Systolic blood pressure 133 mm[Hg] Avtar JAYL [facility] 03-29-2024 13:57-0400 Body height 170.2 cm Kiko Jameson [employer] Work Phone: [facility] 03-29-2024 13:57-0400 Body mass index (BMI) [Ratio] 21.61 kg/m2 Kiko Jameson [employer] Work Phone: [facility] 03-29-2024 13:57-0400 Body weight 62.6 kg Kiko Jameson [employer] Work Phone: [facility] 03-29-2024 13:57-0400 Diastolic blood pressure 68 mm[Hg] Kiko Jameson OFFICE CLERK ROUTINE Work Phone: [facility] 03-29-2024 13:57-0400 Heart rate 93 /min Kiko Jameson OFFICE CLERK ROUTINE Work Phone: [facility] 03-29-2024 13:57-0400 Systolic blood pressure 114 mm[Hg] Kiko Jameson OFFICE CLERK ROUTINE Work Phone: [facility] 06-28-2023 13:37-0500 Body height 170.2 cm Jay Munoz MD Work Phone: [facility] 06-28-2023 13:37-0500 Diastolic blood pressure 60 mm[Hg] Jay Munoz MD Work Phone: [facility] 06-28-2023 13:37-0500 Heart rate 77 /min Jay Munoz MD Work Phone: [facility] 06-28-2023 13:37-0500 Systolic blood pressure 90 mm[Hg] Jay Munoz MD Work Phone: [facility] Encounters Encounter Date Encounter Type Care Provider Facility Start: 04-19-2024 End: 04-19-2024 ambulatory Avtar TUCKER Facility:[facility] Start: 04-19-2024 End: 04-19-2024 Patient encounter procedure Avtar TUCKER [facility] Start: 04-18-2024 End: 04-18-2024 ambulatory [facility] Start: 04-18-2024 End: 04-18-2024 ambulatory [facility] Start: 04-06-2024 End: 04-06-2024 ambulatory [facility] Start: 03-29-2024 End: 04-02-2024 ambulatory VINCENZO Ramu [facility] Start: 03-29-2024 End: 03-29-2024 Office outpatient visit 40 minutes Kikoramu Barba OFFICE CLERK ROUTINE Work Phone: [facility] Comment on above: Persistent atrial fi brillation (HCC) (Primary Dx); PAF (paroxysmal atrial fibrillation) (HCC); SSS (sick sinus syndrome) (HCC); Presence of cardiac pacemaker; Pericardial effusion; Pleural effusion Start: 03-29-2024 End: 03-30-2024 ambulatory VINCENZO PATEL [facility] Start: 03-28-2024 End: 03-28-2024 ambulatory CHILANGO [facility] Start: 03-27-2024 End: 03-27-2024 Orders Only Kiko Barba CNP Work Phone: [facility] Comment on above: PAF (paroxysmal atri al fibrillation) (HCC) (Primary Dx) Start: 03-14-2024 Evaluation and manag ement of inpatient [facility] Start: 03-14-2024 Evaluation and manag ement of inpatient [facility] Start: 03-13-2024 Evaluation and manag ement of inpatient [facility] Start: 03-12-2024 Evaluation and manag ement of inpatient [facility] Start: 03-10-2024 Evaluation and manag ement of inpatient [facility] Start: 03-09-2024 Evaluation and manag ement of inpatient [facility] Start: 03-09-2024 Evaluation and manag ement of inpatient [facility] Start: 03-09-2024 Evaluation and manag ement of inpatient [facility] Start: 03-08-2024 End: 03-15-2024 Evaluation and management of inpatient UNKNOWN UNKNOWN [facility] Start: 02-02-2024 Orders Only Jay Munoz MD Work Phone: [facility] Comment on above: PAF (paroxysmal atri al fibrillation) (HCC) (Primary Dx); Presence of cardiac pacemaker Start: 01-02-2024 End: 01-02-2024 ambulatory LORIE PARK Not Available Start: 12-01-2023 ambulatory ABIMBOLA Saba y:[facility] Start: 12-01-2023 End: 12-01-2023 Office outpatient visit 15 minutes Abimbola Chacon MD Work Phone: [facility] Comment on above: Primary open-angle g laucoma, bilateral, indeterminate stage (Primary Dx) Start: 11-23-2023 End: 12-08-2023 ambulatory [facility] Start: 06-28-2023 End: 06-29-2023 ambulatory [facility] Start: 06-28-2023 End: 06-28-2023 Office outpatient new 60 minutes Jay Munoz MD Work Phone: [facility] Comment on above: PAF (paroxysmal atri al fibrillation) (HCC) (Primary Dx); Presence of cardiac pacemaker; SSS (sick sinus syndrome) (HCC); Hypertension, unspecified type; Heart failure with preserved ejection fraction, unspecified HF chronicity (HCC) Start: 06-28-2023 End: 06-29-2023 ambulatory JAY MUNOZ [facility] Start: 06-23-2023 Orders Only Jay Munoz MD Work Phone: [facility] Comment on above: PAF (paroxysmal atri al fibrillation) (HCC) (Primary Dx) Start: 06-03-2023 End: 06-03-2023 [facility] Start: 05-31-2023 ambulatory ABIMBOLA CHACON Facilit y:[facility] Start: 05-31-2023 End: 05-31-2023 Office outpatient new 45 minutes Abimbola Chacon MD Work Phone: [facility] Comment on above: Primary open-angle g laucoma, bilateral, indeterminate stage (Primary Dx); PCO (posterior capsular opacification), left Start: 05-06-2023 End: 05-06-2023 ambulatory JJ AYERS [facility] Start: 03-09-2023 End: 03-10-2023 ambulatory [facility] Start: 12-27-2022 End: 12-28-2022 ambulatory CHILANGO [...] Activity Detail Author Start: 06-09-2032 Tetanus vaccination [facility] Start: 03-13-2025 End: 03-13-2025 ambulatory 03/13/2025 1:15 PM EDT Device Check OP [facility] [address] [place] [address] [facility] Start: 07-02-2024 End: 07-02-2024 ambulatory 07/02/2024 3:30 PM EST Device Check OP [facility] [address] [place] [phone] [facility] Start: 06-28-2024 CLASS III : OFFICE VISIT CLASS III : OFFICE VISIT [facility] Start: 06-04-2024 End: 06-04-2024 Patient encounter procedure 06/04/2024 3:30 PM EDT Office Visit [facility] [place] [facility] [address] [place] [address] Abimbola Chacno MD [address] [place] [address] [facility] [employer] [facility] [place] [facility] Start: 04-15-2024 Influenza vaccination Influenza Vacc ine (#1) [facility] Start: 03-29-2024 End: 03-29-2024 Patient encounter procedure 03/29/2024 2:10 PM EDT Office Visit [facility] [address] [place] [address] Kiko Barba, DENISE [address] [place] [address] [facility] Start: 03-27-2024 End: 03-27-2025 12 lead ECG ECG 12 lead ECG Routine PAF (paroxysmal atrial fibrillation) ([facility]) Expected: 03/27/2024, Expires: 03/27/2025 [facility] Work Phone: Comment on above: Expected: 03/27/2024 , Expires: 03/27/2025 Start: 03-14-2024 End: 03-14-2024 Patient encounter procedure [facility] Start: 02-21-2024 End: 02-21-2024 Patient encounter procedure 02/21/2024 7:00 AM EDT Appointment [facility] [address] [place] [phone] Simone Campoverde MD [address] [facility] [address], [place] [address] [facility] Start: 12-27-2023 End: 12-27-2023 Patient encounter procedure 12/27/2023 1:50 PM EDT Office Visit [facility] [address] [place] [phone] Jay Munoz MD [address] [place] [address] [facility] Start: 12-01-2023 End: 12-01-2023 Patient encounter procedure 12/01/2023 10:30 AM EDT Office Visit [facility] [address] [place] [phone] Abimbola Chacon MD [address] [place] [phone] [facility] Start: 09-26-2023 COVID-19 Vaccine ( season) COVID-19 Vaccine () [facility] Start: 06-28-2023 End: 06-28-2023 Patient encounter procedure 06/28/2023 1:00 PM EST Office Visit [facility] [address] [place] [phone] Jay Munoz MD [address] [place] [address] [facility] Start: 04-15-2023 COVID-19 VACCINE ( season) COVID-19 VACCINE ( season) [facility] Start: 04-15-2023 Influenza vaccination Sequenti al Influenza Vaccine (#1) [facility] Start: 01-23-2015 Screening for malign ant neoplasm of breast MAMMOGRAM SCREENING DISCUSSION [facility] Start: 2002 Fall risk assessment Falls Risk Asse ssment [facility] Start: 2002 Pneumococcal vaccination [facility] Start: 2002 Pneumococcal Vaccine : Age 65+ (1 - PCV) Pneumococcal Vaccine: Age 65+ (1 - PCV) [facility] Start: 2002 Pneumococcal Vaccine : Age 65+ (1 of 1 - PCV) Pneumococcal Vaccine: Age 65+ (1 of 1 - PCV) [facility] Start: 1987 Administration of he rpes zoster vaccine Zoster Vaccines (1 of 2) [facility] Start: 1987 Zoster vaccine hzv l trace for subcutaneous use ZOSTER (SHINGLES) VACCINE (1 of 2) [facility] Start: 1982 Screening for malign ant neoplasm of colon COLORECTAL CANCER SCREENING DISCUSSION [facility] Start: 1958 Screening for malign ant neoplasm of cervix CERVICAL CANCER SCREENING DISCUSSION [facility] Start: 1949 Depression screening using PHQ-9 (Patient Health Questionnaire 9) score [facility] Start: 1943 Pneumococcal Vaccine : Age 65+ (1 of 2 - PCV) Pneumococcal Vaccine: Age 65+ (1 of 2 - PCV) [facility] Start: 1940 History and physical examination, annual for health maintenance Wellness Visit [facility] Start: 1940 Medicare Wellness Visit Medicare Wel lness Visit [facility] Start: 1937 Alanine aminotransfe rase measurement CLASS III : ALT [facility] Start: 1937 CLASS III : AST CLASS III : AST [facility] Start: 1937 CLASS III : CXR CLASS III : CXR [facility] Start: 1937 CLASS III : EKG CLASS III : EKG [facility] Start: 1937 CLASS III : PFT CLASS III : PFT [facility] Start: 1937 Potassium [Moles/vol ume] in Serum or Plasma POTASSIUM [facility] Start: 1937 Screening for osteoporosis [facility] Start: 1937 Thyroid stimulating hormone measurement [facility] End: 06-23-2024 12 lead ECG ECG 12 lead ECG Routine PAF (paroxysmal atrial fibrillation) (HCC) 1 Occurrences starting 06/23/2023 until 06/23/2024 [facility] Work Phone: Comment on above: 1 Occurrences starti ng 06/23/2023 until 06/23/2024 End: 02-01-2025 12 lead ECG ECG 12 lead ECG Routine PAF (paroxysmal atrial fibrillation) (HCC) Presence of cardiac pacemaker 4 Occurrences starting 02/02/2024 until 02/01/2025 [facility] Work Phone: Comment on above: 4 Occurrences starti ng 02/02/2024 until 02/01/2025 12 lead ECG ECG 12 lead ECG Routine PAF (paroxysmal atrial fibrillation) (HCC) 03/29/2024 1:48 PM EDT [facility] Work Phone: Ophthalmic us dx cor haven pachymetry uni/bi PACHYMETRY-OU NM Charge Routine Primary open-angle glaucoma, bilateral, indeterminate stage Ordered: 05/31/2023 [facility] Comment on above: Ordered: 05/31/2023 Immunizations Immunization Date Immunization Notes Care Provider Andreia white 05-26-2023 influenza virus vaccine, unspecified formulation Kiko Barba CNP Work Phone: [facility] 04-29-2022 SARS-CoV-2 (COVID-19 ) [id number] Avtar TUCKER [facility] 11-25-2021 SARS-CoV-2 mRNA (gcoahmvklch-jlhg-cflyd se) vaccine Avtar TUCKER [facility] 06-10-2021 SARS-CoV-2 (COVID-19 ) mRNA BNT-162b2 vax Avtar TUCKER [facility] Comment on above: Result Comment: 2023: [id number] 10-02-2020 SARS-CoV-2 (COVID-19 ) mRNA-1273 vaccine Avtar TUCKER [facility] 09-04-2020 SARS-CoV-2 (COVID-19 ) mRNA-1273 vaccine Avtar TUCKER [facility] Payers Date Payer Category Payer Private Health Insurance LISSA BOGGS OTHER AFTER MEDICARE [id number] 2016-Present [phone] [address] [address] [place] [address] [id number] 2002 Medicare [id number] 1959 Medicare [id number] 1959 Private Health Insurance [id number] 1935 Unknown [id number] 2.16.840.1.252095.3.579.2 .593 1935 Unknown [id number] 2.16.840.1.044888.3.579.2 .593 1937 Unknown [id number] 2.16.840.1.243736.3.579.2 .593 1937 Unknown [id number] 2.16.840.1.397531.3.579.2 .593 1937 Unknown [id number] 2.16.840.1.982451.3.579.2 .593 1937 Unknown [id number] 2.16.840.1.999750.3.579.2 .593 1937 Unknown [id number] 2.16.840.1.706143.3.579.2 .593 1937 Unknown [id number] 2.16.840.1.962711.3.579.2 .593 1937 Unknown [id number] 2.16.840.1.644870.3.579.2 .593 1937 Unknown [id number] 2.16.840.1.935022.3.579.2 .593 1937 Unknown [id number] 2.16.840.1.098596.3.579.2 .173 1937 Unknown [id number] 2.16.840.1.746965.3.579.2 .594 1937 Unknown [id number] 2.16.840.1.692607.3.579.2 .594 1937 Unknown [id number] 2.16.840.1.985209.3.579.2 .900 1937 Unknown [id number] 2.16.840.1.412509.3.579.2 .900 1937 Unknown [id number] 2.16.840.1.478974.3.579.2 .1259 1937 Unknown [id number] 2.16.840.1.751895.3.579.2 .903 1937 Unknown [id number] 2.16.840.1.410172.3.579.2 .903 1937 Unknown [id number] 2.16.840.1.148928.3.579.2 .903 1937 Unknown [id number] 2.16.840.1.315891.3.579.2 .1286 1937 Unknown [id number] 2.16.840.1.331322.3.579.2 .1286 1937 Unknown [id number] 2.16.840.1.255712.3.579.2 .727 Medicare [id number] Social History Date Type Detail Facility Start: 05-31-2023 End: 04-19-2024 Tobacco smoking status NHIS Never smoked tobacco [facility] Start: 05-31-2023 End: 06-28-2023 Tobacco use and exposure Smokeless tobacco non-user [facility] Start: 05-31-2023 End: 12-01-2023 Alcohol intake Ex-drinker (finding) [facility] Start: 05-31-2023 End: 06-28-2023 History of Social function [facility] Start: 05-31-2023 End: 06-28-2023 Tobacco use panel [facility] Start: 1935 Sex Assigned At Not on file [facility] Tobacco smoking status NHIS Tobacco smoking consumption unknown [facility] Start: 06-28-2023 End: 03-29-2024 Alcohol intake Lifetime non-drinker (finding) [facility] Tobacco smoking status Never [facility] [place] Medical Equipment Procedure Code Equipment Code Equipment Origin al Text Equipment Identifier Dates Acclarent [id number] [address] 8 Chrissy [id number] Start: 05-12-2022 Acclarent 377 17 7 Nomi S 53 [id number] Start: 05-12-2022 Acclarent 377 17 6 Nomi S 45 [id number] Start: 05-12-2022 Functional Status Date Assessment Result Facility 04-19-2024 Functional Status N/A [facility] [place] Clinical Notes 03-22-2022 to 04-20-2024 Patient Kiko [...] resume as soon as okay with GI. [facility] 04-19-2024 Note General Surgery Offi ce/Clinic [...] 2014, wnl; patient had EGD 10/2023 in [place] due to upper abd pain, found gastritis, [...] breast History of chronic gastritis History of RI (myocardial infarction) HTN (hypertension) Hypothyroidism Iron deficiency anemia Mitral regurgitation Multiple pulmonary nodules LANEY (obstructive sleep apnea) Osteopenia Perica (more content not included)... [facility] Comment on above: Result Comment: Elec tronically Signed By: CAITLIN CORDON, Avtar Priest\Date and Time Signed: 04/19/24 13:12 EDT 04-06-2024 Note [facility] 03-29-2024 Instructions Zee Hollis MA - 03/29/2024 2:19 PM EDT We will see you back in the office: as needed If you need to cancel or reschedule an appointment please call [phone]. If you have any questions please call SHERRY Burciaga directly at [phone]. documented in this encounter [facility] 03-29-2024 History of Present illness Narrative ELECTROPHYSIOLOGY Clinic Established Follow Up Visit Patient Name: Karen Gifford MR #: [id number] : 1935 Physicians: Vincenzo Patel MD (Family); No ref. provider found (Referring) Primary Air Transportation Provider: Dr. Jay Munoz Assessment and Plan: ASSESSMENT: Recent hospitalization for shortness of breath -found with large pericardial effusion status post pericardiocentesis -Found with large pleural effusion status post bilateral thoracentesis -Perhaps malignant? Persistent atrial fibrillation -[id number]: 5 on Xarelto -Rate control strategy previously [...] UP IN: As needed Kiko Barba MS, STONE CUTTER-OFFICE CLERK ROUTINE, AGACNP-[facility] Office Inpatient: Please contact me through secure chat To expedite correspondence this note was generated by [employer] voice recognition software. Some grammatical or spelling [...] Risk (03/08/2024) Received from [facility] Overall Financial Resource Strain (CARDIA) Difficulty of Paying Living Expenses: Not hard at all Food Insecurity: No Food Insecurity (03/08/2024) Received from [facility] Hunger Vital Sign Within the past 12 months, you worried that your food would run out before you got the money to buy more.: Never true Transportation Needs: No Transportation Needs (03/08/2024) Received from [facility] Transportation In the past 12 months, has lack of transportation kept you from medical appointments or from getting medications?: No Housing Stability: Low Risk (03/08/2024) Received from [facility] Housing Stability Vital Sign In the [...] 03/29/24 2:23 PM documented in this encounter [facility] 03-29-2024 Note ELECTROPHYSIOLOGY Cl inic Established Follow Up Visit Patient Name: Karen Gifford MR #: [id number] : 1935 Physicians: Vincenzo Patel MD (Family); No ref. provider found (Referring) Primary Air Transportation Provider: Dr. Jay Munoz Assessment and Plan: ASSESSMENT: Recent hospitalization for shortness of breath -found with large pericardial effusion status post pericardiocentesis -Found with large pleural effusion status post bilateral thoracentesis -Perhaps malignant? Persistent atrial fibrillation -[id number]: 5 on Xarelto -Rate control strategy previously [...] UP IN: As needed Kiko Barba, MS, STONE CUTTER-OFFICE CLERK ROUTINE, AGACNP-BC [facility] Office Inpatient: Please contact me through secure chat To expedite correspondence this note was generated by [employer] voice recognition software. Some grammatical or spelling [...] Risk (03/08/2024) Received from [facility] Overall Financial Resource Strain (CARDIA) Difficulty of Paying Living Expenses: Not hard at all Food Insecurity: No Food Insecurity (03/08/2024) Received from [facility] Hunger Vital Sign Within the past 12 months, you worried that your food would run out before you got the money to buy more.: Never true Transportation Needs: No Transportation Needs (03/08/2024) Received from [facility] Transportation In the past 12 months, has lack of transportation kept you from medical appointments or from getting medications?: No Housing Stability: Low Risk (03/08/2024) Received from [facility] Housing Stability Vital Sign In the [...] (more content not included)... [facility] 03-28-2024 Note Follow up appointabhilash pompa Pt had labs yesterday. Patient is taken both lipitor, zocor. Review of Systems Respiratory: Positive for shortness of breath. [facility] 03-28-2024 Note [facility] 03-15-2024 Note [facility] 03-15-2024 Note [facility] 03-15-2024 Note [facility] 03-14-2024 Note [facility] 03-14-2024 Note [facility] 03-14-2024 Note Satisfactory for soraya luation. Examination of the ThinPrep slide and cell block reveals benign mesothelial cells and chronic inflammation. [facility] Comment on above: Performed By: #### L AB13 ####[facility] [place] [address] 03-14-2024 Note [facility] 03-14-2024 Note [facility] 03-14-2024 Note [facility] 03-14-2024 Note [facility] 03-13-2024 Note Occupational Therapy Name: Karen Gifford Date of : 1935 Today's Date: 03/13/24 Pt is unable to be seen for therapy at this time secondary to bedrest until 1700 per nsg . Check No Charge Time attempted: [address] [facility] 03-13-2024 Note [facility] 03-13-2024 Note [facility] 03-13-2024 Note Satisfactory for soraya luation. Examination of the ThinPrep slide and cell block reveals abundant acute inflammation and rare mesothelial cells. [facility] Comment on above: Performed By: #### L AB13 ####[facility] [place] [address] 03-13-2024 Note [facility] 03-12-2024 Note [facility] 03-12-2024 Note [facility] 03-12-2024 Note [facility] 03-12-2024 Note [facility] 03-11-2024 Note [facility] 03-11-2024 Note [facility] 03-10-2024 Note [facility] 03-10-2024 Note [facility] 03-10-2024 Note [facility] 03-09-2024 Note [facility] 03-09-2024 Note [facility] 12-01-2023 History of Present illness Narrative [...] time was spent with patient performing the tv technician work of this visit. Referring Physician: [...] ROS: complete review of systems performed by tv technician, reviewed by me. OCT: baseline, good [...] resolved OS. documented in this encounter [facility] 06-28-2023 History of Present illness Narrative Electrophysiology Clinic Consult Heart & Vascular [facility] 06/28/2023 Jay Munoz MD [address] [facility] [address] Patient: Karen Gifford Date of [...] age, doing water walking at the [facility] for 30 minutes twice per week. [...] daily indefinitely in the setting of a [id number]-TIOs score of 5. Sick sinus syndrome status [...] members, referring and/or communicating with other health rn medicare, coordinating care, and documenting the above findings. documented in this encounter [facility] 06-28-2023 Instructions Janet Mendoza RN - 06/28/2023 12:44 PM EST Testing Ordered: None Medication Changes: Stop Amiodarone Lab Work Ordered: None To schedule any outpatient testing( if applicable) simply call [phone] and follow the prompts to schedule any outpatient testing. If you have any questions or concerns about today's visit please call Janet POWELL at [phone] documented in this encounter [facility] 06-03-2023 Note Stable Device interrogation q [address] [facility] 06-03-2023 Note [facility] I-II, Currently pt is euvolemic without exacerbation Continue GDMT- continue bumex- Diuretic therapy Monitor daily weights, I&O, fluid restriction 1.5-2L/day, renal function and electrolytes [facility] 06-03-2023 Note Continue xarelto and amiodarone and atenolol [facility] 06-03-2023 Note [facility] 06-03-2023 Note [facility] 06-03-2023 Note [facility] 05-31-2023 History of Present illness Narrative [...] time was spent with patient performing the tv technician work of this visit. Referring Physician: [...] ROS: complete review of systems performed by tv technician, reviewed by me. OCT: baseline, good [...] after hours documented in this encounter [facility] 05-06-2023 Note [facility] 03-22-2022 Note CARDIAC STRESS TEST Requesting [...] and reported in a separate dictation. [facility] Evaluation + Plan note No data available for this section [facility] Evaluation note Diagnosis Primary open-angle glaucoma, bilateral, indeterminate stage- Primary PCO (posterior capsular opacification), left After-cataract, unspecified [facility] PAF (paroxysmal atrial fibrillation) (HCC)- Primary Atrial fibrillation [facility] Diagnosis PAF (paroxysmal atrial fibrillation) (HCC)- Primary Atrial fibrillation 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 SSS (sick sinus syndrome) ([facility]) Sinoatrial node dysfunction Hypertension, unspecified type Heart failure with preserved ejection fraction, unspecified HF chronicity ([facility]) [facility] Primary open-angle glaucoma, bilateral, indeterminate stage- Primary [facility] Diagnosis PAF (paroxysmal atrial fibrillation) [...] Unspecified pleural effusion [facility] No data available for this section [facility] Progress note No data available for this section [facility] Summary Purpose Family History No Family History [...] FoundDocuments on File Type Date Recorded Patient Lapel Padder Expl anation Advance Directives and Livin g Will 06/28/2023 12:40 PM Documents on File Type Date Recorded Patient Lapel Padder Expl anation Advance Directives and Livin g Will 06/28/2023 12:40 PM Reason for Referral Specialty Diagnoses / Procedures Referred By Contac t Referred To Contact Cardiology Diagnoses PAF (paroxysmal atrial fibrillation) (HCC) Procedures ECG 12 lead Jay Munoz MD [address] [place] [address] Referral ID Status Reason Start Date Expiration Date V isits Requested Visits Authorized [id number] Authorized 06/23/2023 06/22/2024 1 1 Specialty Diagnoses / Procedures Referred By Contac t Referred To Contact Cardiology Diagnoses PAF (paroxysmal atrial fibrillation) (HCC) Presence of cardiac pacemaker Procedures ECG 12 lead Jay Munoz MD [address] [facility] [address] [place] [address] Referral ID Status Reason Start Date Expiration Date V isits Requested Visits Authorized [id number] Authorized 02/02/2024 02/01/2025 4 4 Specialty Diagnoses / Procedures Referred By Contac t Referred To Contact Cardiology Diagnoses PAF (paroxysmal atrial fibrillation) (HCC) Procedures ECG 12 lead Kiko Barba CNP [address] [place] [address] Referral ID Status Reason Start Date Expiration Date V isits Requested Visits Authorized [id number] Authorized 03/27/2024 03/27/2025 1 1 Additional Source Comments INFORMATION SOURCE (unrecogn ized section and content) DATE CREATED AUTHOR 12/28/2022 [facility] DATE CREATED AUTHOR AUTHOR'S ORGANIZ ATION 03/10/2023 [facility] DATE CREATED AUTHOR AUTHOR'S ORGANIZ ATION 12/02/2023 [facility] DATE CREATED AUTHOR AUTHOR'S ORGANIZ ATION 12/10/2023 [facility] DATE CREATED AUTHOR AUTHOR'S ORGANIZ ATION 01/04/2024 [facility] DATE CREATED AUTHOR AUTHOR'S ORGANIZ ATION 04/02/2024 [facility] DATE CREATED AUTHOR AUTHOR'S ORGANIZ ATION 04/19/2024 [facility] DATE CREATED AUTHOR AUTHOR'S ORGANIZ ATION 04/19/2024 [facility] DATE CREATED AUTHOR AUTHOR'S ORGANIZ ATION 2024 [facility] DATE CREATED AUTHOR AUTHOR'S ORGANIZ ATION 04/26/2024 [facility] Reason for Visit (unrecogniz ed section and content) Reason Comments New Patient Glaucoma Reason Comments Follow-up Reason Comments Follow-up Hosp. F/u Care Teams (unrecognized sec tion and content) System Support Developer Relationship Specialty Start Date End Date Vincenzo Patel MD [address] [place] [phone] PCP - General Family Medicine 05/31/23 Sean Redman DO [address] [place] [address] [place] [phone] Ophthalmology 05/31/23 System Support Developer Relationship Specialty Start Date End Date Vincenzo Patel MD [address] [place] [address] PCP - General Family Medicine 06/15/23 System Support Developer Relationship Specialty Start Date End Date Vincenzo Patel MD [address] [place] [address] PCP - General Family Medicine 06/15/23 Jay Munoz MD [address] [place] [address] [address] [place] [address] Cardiac Electrophysiology 06/28/23 System Support Developer Relationship Specialty Start Date End Date Vincenzo Patel MD [address] [place] [address] PCP - General Family Medicine 06/15/23 Jay Munoz MD [address] [address] Cardiac Electrophysiology 06/28/23 System Support Developer Relationship Specialty Start Date End Date Vincenzo Patel MD [address] [place] [address] PCP - General Family Medicine 06/15/23 Jay Munoz MD [address] [address] Cardiac Electrophysiology 06/28/23 System Support Developer Relationship Specialty Start Date End Date Vincenzo Patel MD [address] [place] [address] PCP - General Family Medicine 06/15/23 Jay Munoz MD [address] [address] Cardiac Electrophysiology 06/28/23 FOR RECORDS PERTAINING TO [...] PRIMARY CLINICAL RECORDS. [facility] [employer] [facility]. provides no warranty or guarantee of the accuracy or completeness of information in this document.
[2024-05-09 07:50] VITALS: BP 130/86; PULSE 77; TEMP 36.1; O2SAT 99; BMI 23.9
[2024-05-09] MEDS: LACTATED RINGER'S SOLUTION 1,000 ML 50 ML IV (07:58)
[2024-05-09 09:23] VITALS: BP 112/64; PULSE 78; TEMP 36.2; O2SAT 99
[2024-05-09 09:53] VITALS: BP 134/66; PULSE 77; O2SAT 100
== END 2024-05-09 09:53 | disposition home or self-care (01) ==
PROVIDERS: PCP Family Medicine; Visit Provider Surgery
PROC: (CPT 43235; principal; 2024-05-09 08:50)
DX: R19.5 Other fecal abnormalities (principal); K44.9 Diaphragmatic hernia without obstruction or gangrene; D50.9 Iron deficiency anemia, unspecified; Q43.8 Other specified congenital malformations of intestine; Z79.01 Long term (current) use of anticoagulants; I48.91 Unspecified atrial fibrillation; E03.9 Hypothyroidism, unspecified; G47.33 Obstructive sleep apnea (adult) (pediatric); E78.00 Pure hypercholesterolemia, unspecified; Z86.73 Personal history of transient ischemic attack (TIA), and cerebral infarction without residual deficits; Z90.49 Acquired absence of other specified parts of digestive tract; Z90.710 Acquired absence of both cervix and uterus; Z95.0 Presence of cardiac pacemaker; Z87.19 Personal history of other diseases of the digestive system; I50.9 Heart failure, unspecified; I11.0 Hypertensive heart disease with heart failure; I08.0 Rheumatic disorders of both mitral and aortic valves; I25.10 Atherosclerotic heart disease of native coronary artery without angina pectoris
CPT/HCPCS: 43235; 45378; J2704

== ENCOUNTER 2024-12-11 10:48 | Outpatient (OUT) | payer MEDICARE, OTHER, SELFPAY ==
--- NOTE | 2024-12-11 10:53 | US_ITS ---
[address] [address] Patient Name: DEBORA GIFFORD MRN: [id number] date: 1935 Sex: F Assigned Patient Location: US Current Patient Location: Accession/Order Number: [id number] Exam Date: 12/11/2024 11:41 Report Date: 12/11/2024 11:44 At the request of: STIVEN KAUR MD Procedure: US pelvis Pelvic ultrasound. Reason for exam: Follow-up adnexal cyst. Comparison: Ultrasound 02/27/2024 Technique: Transabdominal imaging of the uterus and ovaries was performed Findings: Patient is status post partial hysterectomy. Ovaries are not clearly identified. A right adnexal cyst is present measuring 2.7 x 2.4 x 2.1 cm which appears to have decreased in size since the prior ultrasound study. No adnexal mass or free fluid. US/US pelvis Impression: Interval reduction since size of the right adnexal cyst now measuring 2.7 x 2.4 x 2.1 cm suggesting a benign process. Impression dictated by: Greg Patel Jr., D.O. 12/11/2024 11:44 AM Dictation Location: [place] [address] Electronically authenticated by: [id number] Y Date: 12/11/2024 11:44
== END 2024-12-11 10:49 | disposition home or self-care (01) ==
LOC: US 10:49
PROVIDERS: PCP Family Medicine; Visit Provider Internal Medicine Hematology & Oncology
DX: R19.09 Other intra-abdominal and pelvic swelling, mass and lump (principal); D64.9 Anemia, unspecified; N83.201 Unspecified ovarian cyst, right side
CPT/HCPCS: 76856

== ENCOUNTER 2025-03-11 09:32 | Outpatient (OUT) | payer MEDICARE, OTHER, SELFPAY ==
--- OUTSIDE RECORDS SUMMARY | 2025-03-11 09:35 | XMS_ITS | Clinical Summary ---
Author Organization [facility] Address [address] [place] [address] Care Team Providers Care Fire Tender Name Role Phone Billy Patel MD Primary Care Provider [phone] Allergies Active Allergy Reactions Criticality Noted Date Comments Dorzolamide Hcl-Timolol Mal Other 01/02/20 Itchy eyes Enalapril Unknown 05/31/2023 Lisinopril Cough,Unknown 05/10/2022 Pantoprazole Other 01/02/2024 Pounding heart Nifedipine Other 01/02/2024 Pounding heart Medications famotidine (Pepcid) 20 MG tablet Take 20 mg by mouth in the morning and 20 mg before bedtime. Active albuterol (2.5 MG/3ML) 0.083% nebulizer solution every 6 (six) hours if needed 02/16/2023 Active atenolol (Tenormin) 100 MG tablet Take 100 mg by mouth in the morning and 100 mg before bedtime. 05/04/2023 Active bumetanide (Bumex) 1 MG tablet Take 1 mg by mouth Daily 05/24/2023 Active dilTIAZem CD (Cardizem CD) 300 MG 24 hr capsule Take 300 mg by mouth Daily 06/03/2023 Active hydrALAZINE (Apresoline) 100 MG tablet Take 100mg twice daily 05/20/2023 Active latanoprost (Xalatan) 0.005 % ophthalmic solution 1 (one) time each day at the same time 05/16/2023 Active liothyronine (Cytomel) 5 MCG tablet 5 mcg in the morning and 5 mcg before bedtime. 05/16/2023 Active magnesium 250 MG tablet 1 (one) time each day at the same time Active simvastatin (Zocor) 10 MG tablet Take 10 mg by mouth in the morning and 10 mg before bedtime. 05/29/2023 Active timolol (Timoptic) 0.5 % ophthalmic solution 1 drop in the morning and 1 drop before bedtime. 05/09/2023 Active rivaroxaban (Xarelto) 20 MG tablet Take 20 mg by mouth 1 (one) time each day at the same time Active Family History Medical History Relation Name Comments Hypertension Other Relation Name Status Comments Other Social History Tobacco Use Types Packs/Day Years Used Date Smoking Tobacco: Never Assessed Comments Unknown Sex and Gender Information Value Date Recorded Sex Assigned at Not on file Legal Sex Female 1:39 PM EDT Gender Identity Not on file Sexual Orientation Not on file Last Filed Vital Signs Vital Sign Reading Time Taken Comments Blood Pressure 122/62 01/02/2024 1:51 PM EDT Pulse - - Temperature - - Respiratory Rate - - Oxygen Saturation - - Inhaled Oxygen Concentration - - Weight 67 kg (147 lb 12 oz) 01/02/2024 1:51 PM E DT Height 170.2 cm (5' 7 ) 01/02/2024 1:51 PM EDT Body Mass Index 23.14 01/02/2024 1:51 PM EDT Plan of Treatment Health Maintenance Due Date Last Done Comments Pneumococcal Vaccine: 65+ Ye ars (1 of 1 - PCV) 1987 Influenza Vaccine (#1) 2025 3, 05/13/2021, 05/07/2020, Additional history exists Insurance [facility] Care Teams Fire Tender Relationship Specialty Start Date End Date Billy Patel MD PCP - General Family Medicine 12/19/23
--- OUTSIDE RECORDS SUMMARY | 2025-03-11 09:35 | XMS_ITS | Encounter Summary ---
Author Organization [facility] Address [address] [place] [address] Care Team Providers Care Slot Floor Person Name Role Phone Billy Patel MD Primary Care Provider [phone] Bony Guerra MD Unavailable [phone] Encounter Details Date Type Department Care Team (Late st Contact Info) Description 09/13/2023 Orders Only [facility] [address] [place] [address] Social History Tobacco Use Types Packs/Day Years Used Date Smoking Tobacco: Never Smokeless Tobacco: Never Alcohol Use Standard Drinks/Week Comments Never 0 (1 standard drink = 0.6 oz pur e alcohol) Comments Unknown Sex and Gender Information Value Date Recorded Sex Assigned at Not on file Legal Sex Female 1:47 PM EDT Gender Identity Not on file Sexual Orientation Not on file documented as of this encounter Plan of Treatment Not on file documented as of this encounter Procedures Procedure Name Priority Date/Time Associated Diagnosis Comments OUTPATIENT DEVICE CLINIC REFERRAL Routine 09/13/2023 11:39 AM EST documented in this encounter Results * Outpatient Device Clinic Referral (09/13/2023 11:39 AM EST) Pathologist [facility] Implantable Pulse Generator Inspector Firearms [employer] PACEART Implantable Pulse Generator Model [id number] Armida CHILD PACEART Implantable Pulse Generator Serial Number [id number] PACEART Implantable Pulse Generator Type Pacemaker PACEART Implantable Pulse Generator Implant Date PACEART Implantable Lead Inspector Firearms [employer] PACEART Implantable Lead Model 377 176 [address] 45 PACEART Implantable Lead Serial Number [id number] PACEART Implantable Lead Implant Date PACEART Implantable Lead Inspector Firearms [employer] PACEART Implantable Lead Model 377 177 Nomi S 53 PACEART Implantable Lead Serial Number [id number] PACEART Implantable Lead Implant Date PACEART Date Time Interrogation Session [id number] PACEART 09/13/2023 11:3 9 AM EST us Device Clinic [facility] O RDERABLES Final Result PACEART documented in this encounter Visit Diagnoses Not on filedocumented in this encounter Care Teams Slot Floor Person Relationship Specialty Start Date End Date Billy Patel MD [address] [place] [address] PCP - General Family Medicine 06/15/23 Bony Guerra MD [address] [facility] [address] [place] [address] Cardiac Electrophysiology 06/28/23 documented as of this encounter
--- OUTSIDE RECORDS SUMMARY | 2025-03-11 09:35 | XMS_ITS | Clinical Summary ---
Author Organization [facility] Address [address] [place] [address] Care Team Providers Care Shoddy Mill Worker Name Role Phone Billy Patel MD Primary Care Provider [phone] Bony Guerra MD Unavailable [phone] Allergies Active Allergy Reactions Criticality Noted Date Comments Calcium Channel Blocking Agents-Dihydropyridines Unknown 05/31/2023 Enalapril Maleate Unknown 06/03/2023 Isosorbide Other (See Comments) 06/09/2020 Dry eyes Lisinopril Other (See Comments) 05/10/2022 Morphine Other (See Comments) 05/13/2022 vomit Nifedipine Unknown 07/15/2015 Sulfa (Sulfonamide Antibiotics) Unknown 02/21/2023 Medications albuterol (PROVENTIL) 2.5 mg /3 mL (0.083 %) nebulizer solution 3 mL as needed Inhalation every 6 hrs 3 Active atenoloL (TENORMIN) 100 MG tablet Take 1 tablet twice a day by oral route for 90 days. 3 Active diltiazem (TIAZAC) 240 MG 24 hr capsule Take by mouth daily . Active timoloL (BETIMOL) 0.25 % ophthalmic solution 1 (one) drop 2 (two) times a day . Active simvastatin (ZOCOR) 10 MG tablet Take 1 (one) tablet (10 mg total) by mouth daily . 3 Active ciclopirox (PENLAC) 8 % solution APPLY 1 SOLUTION TOPICALLY ONCE DAILY FOR 30 DAYS Active Xarelto 20 mg Tab Take 1 (one) tablet (20 mg total) by mouth daily . 2 Active magnesium 250 mg Tab Take 1 (one) tablet (250 mg total) by mouth daily with lunch . Active liothyronine (CYTOMEL) 5 MCG tablet Take 2 (two) tablets (10 mcg total) by mouth daily . 3 Active latanoprost (XALATAN) 0.005 % ophthalmic solution every night at bedtime . 3 Active hydrALAZINE (APRESOLINE) 100 MG tablet Take 1 tablet twice a day by oral route for 90 days. 3 Active cholecalciferol (VITAMIN D3) 250 mcg (10,000 unit) capsule as directed Orally Active timolol (TIMOPTIC) 0.5 % ophthalmic solution every night at bedtime . 3 Active bumetanide (BUMEX) 1 MG tablet Take 1 (one) tablet (1 mg total) by mouth daily . 90 tablet 3 3 Active Active Problems Problem Noted Date Diagnosed Date PAF (paroxysmal atrial fibrillation) 06/28/2023 Presence of cardiac pacemaker 06/28/2023 SSS (sick sinus syndrome) 06/28/2023 Hypertension 06/28/2023 Heart failure with preserved ejection fraction 1 08/28/2022 Social History Tobacco Use Types Packs/Day Years Used Date Smoking Tobacco: Never Smokeless Tobacco: Never Tobacco Cessation:Counseling Given: Not Answered Alcohol Use Standard Drinks/Week Comments Never 0 (1 standard drink = 0.6 oz pur e alcohol) Comments Unknown Sex and Gender Information Value Date Recorded Sex Assigned at Not on file Legal Sex Female 1:47 PM EDT Gender Identity Not on file Sexual Orientation Not on file Last Filed Vital Signs Vital Sign Reading Time Taken Comments Blood Pressure 114/68 03/29/2024 1:57 PM EDT Pulse 93 03/29/2024 1:57 PM EDT Temperature - - Respiratory Rate - - Oxygen Saturation - - Inhaled Oxygen Concentration - - Weight 62.6 kg (138 lb) 03/29/2024 1:57 PM EDT Height 170.2 cm (5' 7 ) 03/29/2024 1:57 PM EDT Body Mass Index 21.61 03/29/2024 1:57 PM EDT Plan of Treatment Health Maintenance Due Date Last Done Comments Dexa Scan 1935 Medicare Wellness Visit 1940 Depression Screening/Follow- Up (PHQ-2/9) 1949 Pneumococcal Vaccine: Age 50 + (1 of 2 - PCV) 1956 Zoster Vaccines (1 of 2) 1987 Falls Risk Assessment 2002 Respiratory Syncytial Virus Immunization: Risk, 60-74 Risk, or 75+ (1 - 1-dose 75+ series) 2012 COVID-19 Vaccine (2023-2 5 season) 2024 05/26/2023, 04/29/2022, 11/25/2021, Additional history exists Influenza Vaccine (#1) 2025 , 05/13/2021, 05/07/2020, Additional history exists Tetanus: Every 10yrs 06/09/2032 06/09/2022, 01/14/2020, 07/05/2012 Medical Devices Implanted Type Area Shredder Tender Device Identifier Shelf Expiration Date Model / Serial / Lot Acclarent [id number] Edora 8 Mateusz [id number] Implanted:05/12 (Quantity not on file) Pacemaker ACCLARENT [id number] EDORA 8 MATEUSZ / [id number] / Acclarent 377 176 Solia S 45 [id number] Implanted:05/12 (Quantity not on file) Pacing Lead ACCLARENT 377 176 SOLIA S 45 / [id number] / Acclarent 377 177 Solia S 53 [id number] Implanted:05/12 (Quantity not on file) Pacing Lead ACCLARENT 377 [id number] SOLIA S 53 / [id number] / Insurance Member Subscriber Plan / Payer (Ef fective 2002-Present) Name:Karen Ladd Member ID:[id number] Relation to Subscriber:Self Name:Karen Ladd Subscriber ID:[id number] Payer ID:Not on file Group ID:Not on file Type:Not on file Address: [address] [place] [address] [place] [address] [employer] OTHER AFTER MEDICARE Advance Directives For more information, please contact: [phone] Documents on File Type Date Recorded Patient Remelt Operator Expl anation Advance Directives and Livin g Will 06/28/2023 12:40 PM Care Teams Shoddy Mill Worker Relationship Specialty Start Date End Date Billy Patel MD [address] [id number] PCP - General Family Medicine 06/15/23 Bony Guerra MD [address] [address] Cardiac Electrophysiology 06/28/23
--- OUTSIDE RECORDS SUMMARY | 2025-03-11 09:35 | XMS_ITS | Clinical Summary ---
Author Organization [facility] tem Address [id number] [address] [place] [address] Care Team Providers Care Fence Making Machine Operator Name Role Phone Provider, Conversion MD Primary Care Provider Un available Allergies Active Allergy Reactions Criticality Noted Date Comments Calcium Channel Blocking Agents-Dihydropyridines Other (See Comments) 07/15/2015 Pounding heart Dorzolamide-Timolol Other (See Comments) 2023 Itchy eyes Isosorbide Other (See Comments) 06/09/2020 Dry eyes Morphine Other (See Comments) 05/13/2022 vomit Sulfa (Sulfonamide Antibiotics) Other (See Comments) 02/21/2023 Medications bumetanide (BUMEX) 1 mg tablet Take 1 tablet (1 mg total) by mouth daily. 3 Active cholecalciferol (VITAMIN D3) 250 mcg (10,000 unit) capsule Only in the winter Active ciclopirox (PENLAC) 8 % solution APPLY 1 SOLUTION TOPICALLY ONCE DAILY FOR 30 DAYS Active famotidine (PEPCID) 20 mg tablet Take 1 tablet (20 mg total) by mouth in the morning and 1 tablet (20 mg total) before bedtime. Active ferrous sulfate 325 (65 FE) mg tablet 1 tablet Orally Twice Daily for 30 days 4 Active latanoprost (XALATAN) 0.005 % ophthalmic solution Administer 1 drop to both eyes. 3 Active liothyronine (CYTOMEL) 5 MCG tablet 1 tablet (5 mcg total) in the morning and 1 tablet (5 mcg total) before bedtime. 3 Active magnesium 250 mg tablet Take 1 tablet (250 mg total) by mouth. Active rivaroxaban (XARELTO) 20 mg tablet tablet Take 1 tablet (20 mg total) by mouth. 3 Active timoloL (BETIMOL) 0.5 % ophthalmic solution 1 drop in the morning and 1 drop before bedtime. 3 Active Active Problems Problem Noted Date Diagnosed Date Elevated cancer antigen 125 (CA 125) 04/24/2024 Cyst of right ovary 04/18/2024 Social History Tobacco Use Types Packs/Day Years Used Date Smoking Tobacco: Never Assessed Childcare Answer Date Recorded Childcare Unknown 07/03/2020 Employment Answer Date Recorded Employment Unknown 07/03/2020 Purpose - Life Answer Date Recorded Purpose and direction in life Unknown Comments Unknown Sex and Gender Information Value Date Recorded Sex Assigned at Not on file Legal Sex Female 1:02 PM EDT Gender Identity Not on file Sexual Orientation Not on file Last Filed Vital Signs Vital Sign Reading Time Taken Comments Blood Pressure 124/78 04/18/2024 10:04 AM EDT Pulse 78 04/18/2024 10:04 AM EDT Temperature - - Respiratory Rate 16 04/18/2024 10:04 AM EDT Oxygen Saturation 99% 04/18/2024 10:04 AM EDT Inhaled Oxygen Concentration - - Weight 65.6 kg (144 lb 9.6 oz) 04/18/2024 9:54 A M EDT Height - - Body Mass Index - - Plan of Treatment Health Maintenance Due Date Last Done Comments Depression Screening 1949 Tobacco Screening 1949 Zoster (Shingles) Vaccine (1 of 2) 1987 Fall Risk Screening 2002 COVID-19 Vaccine (2023-2 5 season) 2024 05/26/2023, 04/29/2022, 11/25/2021, Additional history exists Influenza Vaccine 04/15/2025 05/26/2023, , 05/07/2020, Additional history exists DTaP,Tdap and Td Vaccines (4 - Td or Tdap) 06/09/2032 06/09/2022, 01/14/2020, 07/05/2012, Additional history exists Medical Devices Not on file Insurance MEDICARE [id number] PLAN Care Teams Fence Making Machine Operator Relationship Specialty Start Date End Date ProviderSpencer MD PCP - General 02/07/14
--- OUTSIDE RECORDS SUMMARY | 2025-03-11 09:35 | XMS_ITS | Clinical Summary ---
Author Organization [facility] Address [address], [address] [place] [address] Care Team Providers Care Extrusion Die Coordinator Name Role Phone Billy Patel MD Primary Care Provider [phone] Allergies Active Allergy Reactions Criticality Noted Date Comments Sulfa Antibiotics 03/02/2023 Social History Tobacco Use Types Packs/Day Years Used Date Smoking Tobacco: Never Assessed Comments Unknown Sex and Gender Information Value Date Recorded Sex Assigned at Not on file Legal Sex Female 4:18 PM EST Gender Identity Not on file Sexual Orientation Not on file Last Filed Vital Signs Vital Sign Reading Time Taken Comments Blood Pressure 104/63 03/02/2023 1:39 PM EDT Pulse 72 03/02/2023 1:39 PM EDT Temperature 36.6 C (97.8 F) 03/02/2023 1:39 PM EDT Respiratory Rate 18 03/02/2023 1:39 PM EDT Oxygen Saturation 96% 03/02/2023 1:39 PM EDT Inhaled Oxygen Concentration - - Weight 75.8 kg (167 lb) 03/02/2023 1:39 PM EDT Height 170.2 cm (5' 7 ) 03/02/2023 1:39 PM EDT Body Mass Index 26.16 03/02/2023 1:39 PM EDT Plan of Treatment Health Maintenance Due Date Last Done Comments Depression Screen 1949 DTaP/Tdap/Td vaccine (1 - Tdap) 1956 Pneumococcal 50+ years Vacci ne (1 of 1 - PCV) 1987 Shingles vaccine (1 of 2) 1987 Respiratory Syncytial Virus (RSV) or age 60 yrs+ (1 - 1-dose 75+ series) 2012 Annual Wellness Visit (Medicare) 07/11/2023 COVID-19 Vaccine ( - 2023-2 5 season) 2024 Flu vaccine (#1) 03/15/2025 Hepatitis A vaccine Aged Out No longe r eligible based on patient's age to complete this topic Hepatitis B vaccine Aged Out No longe r eligible based on patient's age to complete this topic Hib vaccine Aged Out No longer eligi ble based on patient's age to complete this topic Meningococcal (ACWY) vaccine Aged Out No longer eligible based on patient's age to complete this topic Meningococcal B vaccine Aged Out No l onger eligible based on patient's age to complete this topic Polio vaccine Aged Out No longer elig ible based on patient's age to complete this topic Insurance MEDICARE CIGNA Care Teams Extrusion Die Coordinator Relationship Specialty Start Date End Date Billy Patel MD [address] [place] [id number] PCP - General Family Medicine 03/09/23
--- OUTSIDE RECORDS SUMMARY | 2025-03-11 09:35 | XMS_ITS | Encounter Summary ---
Author Organization [facility] Address [address] [place] [address] Care Team Providers Care Lay Out Former Name Role Phone Billy Patel MD Primary Care Provider [phone] Encounter Details Date Type Department Care Team (Late st Contact Info) Description 03/30/2024 Abstract [facility] [address] [place] [phone] Ángela Mayes LPN [address] [place] [id number] Social History Tobacco Use Types Packs/Day Years Used Date Smoking Tobacco: Never Assessed Comments Unknown Sex and Gender Information Value Date Recorded Sex Assigned at Not on file Legal Sex Female 1:39 PM EDT Gender Identity Not on file Sexual Orientation Not on file documented as of this encounter Plan of Treatment Not on file documented as of this encounter Visit Diagnoses Not on filedocumented in this encounter Care Teams Lay Out Former Relationship Specialty Start Date End Date Billy Patel MD PCP - General Family Medicine 12/19/23 documented as of this encounter
--- OUTSIDE RECORDS SUMMARY | 2025-03-11 09:35 | XMS_ITS ---
Author Organization [facility] Address [address] [place] [address] Care Team Providers Care Quality Assurance Representative Name Role Phone Billy Patel MD Primary Care Provider [phone] Active Problems Problem Noted Date Diagnosed Date Basal cell carcinoma 06/26/2024 BRBPR (bright red blood per rectum) 06/26/2024 Cataract 06/26/2024 Dyslipidemia 06/26/2024 Dyspnea 06/26/2024 Epidermal inclusion cyst 06/26/2024 Fibrocystic breast 06/26/2024 History of PR (myocardial infarction) 06/26/2024 Hypothyroidism 06/26/2024 Iron deficiency anemia 06/26/2024 Osteopenia 06/26/2024 Positive fecal occult blood test 06/26/2024 Sebaceous cyst 06/26/2024 Syncope 06/26/2024 TIA on medication 06/26/2024 Aortic insufficiency 06/26/2024 Cardiomegaly 06/26/2024 Elevated cancer antigen 125 (CA 125) 04/24/2024 Cyst of right ovary 04/18/2024 Pleural effusion 04/06/2024 History of colon polyps 03/28/2024 Pericardial effusion 03/08/2024 Heart failure with preserved ejection fraction 1 08/28/2022 Presence of cardiac pacemaker 06/28/2023 Multiple pulmonary nodules 03/09/202303/09 Acute on chronic diastolic (congestive) heart fa ilure 03/09/2023 03/09/2023 Assessment & Plan (06/03/2023 5:12 PM EDT): [facility] I-II, Currently pt is euvolemic without exacerbation Continue GDMT- continue bumex- Diuretic therapy Monitor daily weights, I&O, fluid restriction 1.5-2L/day, renal function and electrolytes S/P placement of cardiac pacemaker 05/14/2022 Assessment & Plan (06/03/2023 5:12 PM EDT): Stable Device interrogation q 6 months Paroxysmal atrial fibrillation 05/10/2022 Overview (05/10/2022): Added automatically from request for surgery [id number] Assessment & Plan (06/03/2023 5:11 PM EDT): Continue xarelto and amiodarone and atenolol Sinus pause 05/10/2022 Overview (05/13/2022): Added automatically from request for surgery [id number] Obstructive sleep apnea syndrome 03/09/2022 Gastroesophageal reflux disease 03/08/2022 Hypertensive disorder 03/08/2022 Assessment & Plan (06/03/2023 5:10 PM EDT): Hypertension is elevated 142/77 Continue atenolol 100mg [...] remains > 130/80, or for any concerns Osteoarthritis 03/08/2022 Current Treatment and Therapy Plans No current plan information found. Past Treatment and Therapy Plans No past plan information found. Lifetime Dose Tracking * Chemical Lifetime Dose Automatic Entry Manual Entr y Fluoro Time 16.45 minutes 0 minutes 16.45 minutes Air Kerma 409 mGy 0 mGy 409 mGy
--- OUTSIDE RECORDS SUMMARY | 2025-03-11 09:35 | XMS_ITS | Encounter Summary ---
Author Organization [facility] Address [address] [place] [address] Care Team Providers Care Fruit Or Nut Crops Farm Manager Name Role Phone Billy Patel MD Primary Care Provider [phone] Encounter Details Date Type Department Care Team (Late st Contact Info) Description 04/26/2024 Abstract [facility] [address] [place] [address] Ángela Mayes LPN [address] [phone] Social History Tobacco Use Types Packs/Day Years [...] on filedocumented in this encounter Care Teams Fruit Or Nut Crops Farm Manager Relationship Specialty Start Date End Date Billy Patel MD PCP - General Family Medicine 12/19/23 documented as of this encounter
--- OUTSIDE RECORDS SUMMARY | 2025-03-11 09:35 | XMS_ITS | Clinical Summary ---
Author Organization [facility] Address [address] [place], [place] [id number] Care Team Providers Care Wall Washer Name Role Phone Billy Patel MD Primary Care Provider [phone] Social History Tobacco Use Types Packs/Day Years Used Date Smoking Tobacco: Never Assessed Comments Unknown Sex and Gender Information Value Date Recorded Sex Assigned at Not on file Legal Sex Female 9:30 AM EST Gender Identity Not on file Sexual Orientation Not on file Plan of Treatment Not on file Insurance MEDICARE Member Subscriber Plan / Payer (Ef fective 2002-Present) Name:Karen Ladd Member ID:[id number] Relation to Subscriber:Self Name:Karen Ladd Subscriber ID:[id number] Payer ID:Not on file Group ID:Not on file Type:Medicare Address: [address] Care Teams Wall Washer Relationship Specialty Start Date End Date Billy Patel MD PCP - General Family Medicine 10/14/14
--- OUTSIDE RECORDS SUMMARY | 2025-03-11 09:35 | XMS_ITS | Encounter Summary ---
Author Organization [facility] Address [address] [place] [address] Care Team Providers Care Vice President Of Consulting Services Name Role Phone Billy Patel MD Primary Care Provider [phone] Bony Guerra MD Unavailable [phone] Encounter Details Date Type Department Care Team (Late st Contact Info) Description 08/23/2023 Orders Only [facility] [address] [place] [address] Social History Tobacco Use Types [...] Diagnosis Comments OUTPATIENT DEVICE CLINIC REFERRAL Routine 08/23/2023 10:48 AM EST documented in this encounter Results * Outpatient Device Clinic Referral (08/23/2023 10:48 AM EST) Pathologist [facility] Implantable Pulse Generator Hospital Scientist Biotronik PACEART Implantable Pulse Generator Model [id number] Armida 8 MATEUSZ PACEART Implantable Pulse Generator Serial Number [id number] PACEART Implantable Pulse Generator Type Pacemaker PACEART Implantable Pulse Generator Implant Date PACEART Implantable Lead Hospital Scientist Biotronik PACEART Implantable Lead Model 377 176 Solia S 45 PACEART Implantable Lead Serial Number [id number] PACEART Implantable Lead Implant Date PACEART Implantable Lead Hospital Scientist Biotronik PACEART Implantable Lead Model 377 177 Nomi S 53 PACEART Implantable Lead Serial Number [id number] PACEART Implantable Lead Implant Date PACEART Date Time Interrogation Session [id number] PACEART 08/23/2023 10:4 8 AM EST us Device Clinic [facility] O RDERABLES Final Result PACEART documented in this encounter Visit Diagnoses Not on filedocumented in this encounter Care Teams Vice President Of Consulting Services Relationship Specialty Start Date End Date Billy Patel MD [address] [place] [address] PCP - General Family Medicine 06/15/23 Bony Guerra MD [address] [facility] [address] [place] [address] Cardiac Electrophysiology 06/28/23 documented as of this encounter
--- OUTSIDE RECORDS SUMMARY | 2025-03-11 09:35 | XMS_ITS | Clinical Summary ---
Author Organization [facility] Address [address] [place] [id number] Care Team Providers Care Turkey Egg Gatherer Name Role Phone Billy Patel MD Primary Care Provider [phone] Sean Redman DO Unavailable [phone] Allergies Active Allergy Reactions Criticality Noted Date Comments Calcium Channel Blockers 05/31/2023 Enalapril 05/31/2023 Medications Atenolol 100 MG tablet 3 Active bumetanide 1 MG tablet Take 1 tablet by mouth daily. 3 Active Diltiazem 180 MG Cap SR 24HR capsule XL 3 Active ciclopirox 8 % Solution topical solution APPLY 1 SOLUTION TOPICALLY ONCE DAILY FOR 30 DAYS 3 Active hydrALAZINE 100 MG tablet 3 Active Liothyronine 5 MCG tablet Take 2 tablets by mouth daily. 3 Active Magnesium (V-R MAGNESIUM) 250 MG tablet Take 1 tablet by mouth. Active simvastatin 10 MG tablet 3 Active Xarelto 20 MG tablet Take 1 tablet by mouth daily. 3 Active Latanoprost 0.005 % Solution ophthalmic solution 3 Active AMIOdarone 200 MG tablet Take 1 tablet by mouth daily. Active Pepcid 40 MG tablet Take 1 tablet by mouth 2 times daily. 4 Active Metoprolol succinate 50 MG tablet XL Take 1 tablet by mouth 3 (three) times a day. Active Atorvastatin 10 MG tablet Take 1 tablet by mouth 2 times daily. Active Colchicine 0.6 MG tablet Take 1 tablet by mouth 2 times daily. Active Diltiazem 240 MG Cap SR 24HR capsule XL Take 1 capsule by mouth daily. Active Timolol maleate 0.5 % Solution ophthalmic solution Place 1 drop in both eyes 2 times daily. 30 mL 3 Active Active Problems No known active problems Encounters Date Type Department Care Team Description 12/24/2024 Refill Central Scheduling [address] [place] [address] Leonides Stahl MD 12/24/2024 Orders Only Central Scheduling [address] [place] [phone] Kandy Sousa from Last 3 Months Family History Medical History Relation Name Comments Heart Disease - Other Father Hypertension Mother Stroke Mother Diabetes Paternal Uncle Blindness Neg Hx Glaucoma Neg Hx Relation Name Status Comments Father Mother Paternal Uncle Social History Tobacco Use Types Packs/Day Years Used Date Smoking Tobacco: Never Smokeless Tobacco: Never Tobacco Cessation:Counseling Given: Not Answered Alcohol Use Standard Drinks/Week Comments Not Currently 0 (1 standard drink = 0.6 oz pur e alcohol) Comments Unknown Sex and Gender Information Value Date Recorded Sex Assigned at Not on file Legal Sex Female 12:24 PM EDT Gender Identity Not on file Sexual Orientation Not on file Plan of Treatment Upcoming Encounters Date Type Department Care Team (Late st Contact Info) Description 05/27/2025 3:00 PM EDT Office Visit [facility] [place] [facility] [address] [place] [address] Leonides Stahl MD [address] [facility] [address] [place] [address] Health Maintenance Due Date Last Done Comments DEXA SCAN DISCUSSION 1937 POTASSIUM 1937 TSH 1937 CERVICAL CANCER SCREENING DISCUSSION 1958 COLORECTAL CANCER SCREENING DISCUSSION 1982 PNEUMOCOCCAL VACCINE SERIES (1 of 1 - PCV) 1987 ZOSTER (SHINGLES) VACCINE (1 of 2) 1987 MAMMOGRAM SCREENING DISCUSSION 01/23/2015 01/23/2014 COVID-19 VACCINE ( season) 2024 04/29/2022, 11/25/2021, 06/10/2021, Additional history exists INFLUENZA VACCINE (#1) 2025 3, 05/13/2021, 05/07/2020, Additional history exists TETANUS 06/09/2032 06/09/2022, 06/0 08/2019, 07/05/2012, Additional history exists TDAP (ADULT) Completed 06/09/2022, 06/16, 01/12/2002 RSV VACCINE Completed 07/13/2023 HEP B VACCINE Aged Out No longer lashonda tang based on patient's age to complete this topic Insurance MEDICARE A AND B MEDICARE SUPPLEMENT Care Teams Turkey Egg Gatherer Relationship Specialty Start Date End Date Billy Patel MD PCP - General Family Medicine 05/31/23 Sean Redman DO Ophthalmology 05/31/23
--- OUTSIDE RECORDS SUMMARY | 2025-03-11 09:35 | XMS_ITS | Encounter Summary ---
Author Organization [facility] Address [address] [place] [address] Care Team Providers Care Security Systems Sales Representative Name Role Phone Billy Patel MD Primary Care Provider [phone] Encounter Details Date Type Department Care Team (Late st Contact Info) Description 03/05/2024 Abstract [facility] [address] [place] [id number] Lan Hennessy DO [address] [facility] [address] Matthew [place]old[place], [facility] Social History Tobacco Use Types Packs/Day Years [...] on filedocumented in this encounter Care Teams Security Systems Sales Representative Relationship Specialty Start Date End Date Billy Patel MD PCP - General Family Medicine 12/19/23 documented as of this encounter
--- OUTSIDE RECORDS SUMMARY | 2025-03-11 09:35 | XMS_ITS | Clinical Summary ---
Author Organization The [facility] Address [address] [place] [address] Care Team Providers Care Grain Operator Name Role Phone Billy Patel MD Primary Care Provider [phone] Allergies Active Allergy Reactions Criticality Noted Date Comments Dorzolamide-Timolol Unknown 01/02/2024 Itchy eyes Dapagliflozin Other 03/12/2024 Recurrent UTI Isosorbide Other 05/13/2022 Dry eyes Lisinopril Cough 05/10/2022 Morphine Other 05/13/2022 vomit Pantoprazole Unknown 01/02/2024 Pounding heart Nifedipine 06/03/2023 Sulfa (Sulfonamide Antibiotics) Unknown 02/12 Enalapril Maleate 06/03/2023 Medications timolol (Betimol) 0.5 % ophthalmic solution Administer 1 drop into both eyes two times daily. Active liothyronine (Cytomel) 5 mcg tablet Take 2 tablets by mouth in the morning. Active latanoprost (Xalatan) 0.005 % ophthalmic solution Administer 1 drop into both eyes at bedtime. Active ferrous sulfate 325 (65 Fe) MG tablet 1 tablet Orally Twice Daily for 30 days 4 Active magnesium 250 mg tablet Take 250 mg by mouth. Active dilTIAZem CD (Cardizem CD) 240 mg 24 hr capsuleIndication s:Paroxysmal atrial fibrillation (CMS/HCC) Take 1 capsule (240 mg) by mouth once daily as directed. 90 capsule 3 5 08/31/19 26 Active bumetanide (Bumex) 1 mg tabletIndications :Acute combined systolic and diastolic heart failure (CMS/HCC) Take 1 tablet (1 mg) by mouth in the morning. 90 tablet 3 Active rivaroxaban (Xarelto) 20 mg tabletIndications :Paroxysmal atrial fibrillation (CMS/HCC) Take 1 tablet (20 mg) by mouth daily with evening meal. 90 tablet 3 5 Active atorvastatin (Lipitor) 10 mg tabletIndications :Acute on chronic diastolic (congestive) heart failure (CMS/HCC) Take 1 tablet (10 mg) by mouth at bedtime. 90 tablet 3 5 08/31/19 Active potassium chloride CR (Klor-Con M10) 10 mEq ER tablet Take 10 mEq by mouth in the morning. Do not crush or chew. Active metoprolol tartrate (Lopressor) 100 mg tabletIndications :Longstanding persistent atrial fibrillation (CMS/HCC) Take 1 tablet (100 mg) by mouth two times daily. 5 12/14/19 Active Active Problems Problem Noted Date Diagnosed Date Basal cell carcinoma 06/26/2024 BRBPR (bright red blood per rectum) 06/26/2024 Cataract 06/26/2024 Dyslipidemia 06/26/2024 Dyspnea 06/26/2024 Epidermal inclusion cyst 06/26/2024 Fibrocystic breast 06/26/2024 History of MD (myocardial infarction) 06/26/2024 Hypothyroidism 06/26/2024 Iron deficiency [...] Assessment & Plan (06/03/2023 5:12 PM EDT): [place] I-II, Currently pt is euvolemic without exacerbation [...] (05/13/2022): Added automatically from request for surgery [id number] Obstructive sleep apnea syndrome 03/09/2022 Gastroesophageal reflux [...] 130/80, or for any concerns Osteoarthritis 03/08/2022 Encounters Date Type Department Care Team Description 01/30/2025 2:30 PM EDT Office Visit [facility] Pulmonary [address] [place] [address] Javier Almeida MD Pleural effusion (Primary Dx) 01/30/2025 10:16 AM EDT - 01/30/2025 11:59 PM EDT Hospital Encounter [facility] CT Imaging [address] [place] [address] Multiple pulmonary nodules Discharge Disposition: Home or Self Care () 01/30/2025 Travel 12/13/2024 2:00 PM EDT Office Visit [facility] [address] [place] [address] Marcela Yousif CNP Longstanding persistent atrial fibrillation (CMS/HCC) (Primary Dx); Chronic diastolic heart failure (CMS/HCC); Sick sinus syndrome (CMS/HCC); S/P placement of cardiac pacemaker; Primary hypertension; Nonrheumatic tricuspid valve regurgitation; Pericardial effusion; Mixed hyperlipidemia from Last 3 Months Immunizations Immunization Administration Dates Next Due Covid (Koalify) Bivalent Rebecca ter =>12 YRS 04/29/2022 Influenza, High Dose Seasona l, Preservative Free 05/16/2017 Influenza, trivalent, adjuvanted 05/13/2021,04/16 Novel [id number], preservative-free 08/28/2009 Td (adult), 5 Lf tetanus tox oid, preservative free, adsorbed 01/14/2020 Td (adult), unspecified 01/12/2002 Tdap 06/09/2022,07/05/2012 Unspecified Sars-Cov-2 Vaccination 11/25,06/10/2021,10/02/2020,2020 Family History Medical History Relation Name Comments Lung cancer Mother's Sister Relation Name Status Comments Brother Father Mother Mother's Sister Social History Tobacco Use Types Packs/Day Years Used Date Smoking Tobacco: Never Tobacco Cessation:Counseling Given: Not Answered Alcohol Use Standard Drinks/Week Comments Never 0 (1 standard drink = 0.6 oz pur e alcohol) [facility] Utilities Answer Date Recorded In the past 12 months has th e electric, gas, oil, or water Targeted Growth threatened to shut off services in your home? No 03/08/2024 Humiliation, Afraid, Rape, and Kick questionnair e Answer Date Recorded Within the last year, have y ou been afraid of your partner or ex-partner? No 03/08/2024 Emotionally Abused Not on file 03/08/2024 Physically Abused Not on file 03/08/2024 Sexually Abused Not on file 03/08/2024 Overall Financial Resource Strain (CARDIA) Answe r Date Recorded How hard is it for you to pa y for the very basics like food, housing, medical care, and heating? Not hard at all 03/08/2024 PHQ-2 Answer Date Recorded Patient Health Questionnaire-2 Score 0 01/30/2025 Transportation Answer Date Recorded In the past 12 months, has l ack of transportation kept you from medical appointments or from getting medications? No 03/08/2024 Lack of Transportation (Non-Medical) Not on file 03/08/2024 Housing Stability Vital Sign Answer Andrew e Recorded Unable to Pay for Housing in the Last Year Not o n file 03/08/2024 Number of Places Lived in the Last Year Not on f ile 03/08/2024 In the last 12 months, was t here a time when you did not have a steady place to sleep or slept in a halfway (including now)? No 03/08/2024 Hunger Vital Sign Answer Date Recorded Within the past 12 months, y ou worried that your food would run out before you got the money to buy more. Never true 03/08/20 24 Ran Out of Food in the Last Year Not on file 03/08/2024 Comments No Sex and Gender Information Value Date Recorded Sex Assigned at Female 05/31/2024 8:49 AM EDT Legal Sex Female 9:04 PM EDT Gender Identity Female 05/31/2024 8:49 AM EDT Sexual Orientation Don't know 05/31/2024 8: 49 AM EDT Last Filed Vital Signs Vital Sign Reading Time Taken Comments Blood Pressure 128/74 01/30/2025 2:12 PM EDT Pulse 79 01/30/2025 2:08 PM EDT Temperature 36.4 C (97.5 F) 03/15/2024 8:20 AM EDT Respiratory Rate 16 03/15/2024 8:20 AM EDT Oxygen Saturation 97% 01/30/2025 2:0 8 PM EDT room air at rest Inhaled Oxygen Concentration - - Weight 67.1 kg (148 lb) 01/30/2025 2:08 PM EDT Height 170.2 cm (5' 7 ) 12/13/2024 2:22 PM EDT Body Mass Index 23.18 12/13/2024 2:22 PM EDT Plan of Treatment Health Maintenance Due Date Last Done Comments Medicare Annual Wellness (AWV) 1935 COVID-19 Vaccine ( season) 2025 11/20/2024, 04/24/2024, 07/20/2023, Additional history exists Fall Risk Screening 04/06/2025 04/06/2024 Influenza Vaccine (#1) 2025 , 05/26/2023, 06/12/2022, Additional history exists Depression Screening 01/30/2026 01/30/2025 Adult Tetanus 06/09/2032 06/09/2022, 06/0 08/2019, 07/05/2012, Additional history exists Pneumococcal Vaccine: 50+ Years Completed 08/17/2024, 11/24/2022 Zoster Vaccines Completed 08/17/2024, 06/01/2024 HIB Vaccines Aged Out No longer eligi ble based on patient's age to complete this topic HPV Vaccines Aged Out No longer eligi ble based on patient's age to complete this topic IPV Vaccines Aged Out No longer eligi ble based on patient's age to complete this topic Meningococcal B Vaccine Aged Out No l onger eligible based on patient's age to complete this topic Meningococcal Vaccine Aged Out No bryanna heather eligible based on patient's age to complete this topic Rotavirus Vaccines Aged Out No longer eligible based on patient's age to complete this topic Medical Devices Implanted Type Area Sex Worker Or Escort Device Identifier Shelf Expiration Date Model / Serial / Lot LeadNomi S 53, - [id number] - [id number] Implanted:Qty : 1 on 05/13/2022 by Yoav Hollingsworth MD at [facility] Lead Left: Chest Biotronik 04/14/2024 [id number] / [id number] / LeadNomi S 45, - [id number] - [id number] Implanted:Qty : 1 on 05/13/2022 by Yoav Hollingsworth MD at [facility] Lead Left: Chest Biotronik 04/14/2024 [id number] / [id number] / Pacer EdCuauhtemoc álvarez,Dr Ramesh - [id number] - [id number] Implanted:Qty : 1 on 05/13/2022 by Yoav Hollingsworth MD at [facility] Pacemaker Left: Subclavian Biotronik [id number] 09/14/2023 [id number] / [id number] / Procedures Procedure Name Priority Date/Time Associated Diagnosis Comments CT CHEST WO IV CONTRAST Routine 01/30/2025 11:13 AM EDT Multiple pulmonary nodules CARDIAC DEVICE CHECK CHECK - REMOTE Routine 12/21/2024 11:53 AM EDT Adjustment and management of cardiac pacemaker CARDIAC DEVICE CHECK - IN CLINIC - PACEMAKER DUAL CHAMBER W/ PROG Routine 12/13/2024 12:06 PM EDT Encounter for implantable defibrillator reprogramming or check from Last 3 Months Results * CT chest wo IV contrast (01/30/2025 11:13 AM EDT) Anatomical Region Laterality Modality Body, Chest Computed Tomogra phy 01/31/2025 8:47 AM EDT Impressions 01/31/2025 9:05 AM EDT Grossly stable multiple bilateral pulmonary nodules largest at the right middle lobe measures 7 mm. Continuous follow-up in 6 months is advised. Electronically signed: Donato Bach. Narrative 01/31/2025 9:[address] CHEST WO IV CONTRAST 01/30/2025 11:04 AM CLINICAL INDICATIONS:Bilateral pulmonary nodules follow-up TECHNIQUE: Multidetector CT axial slices of the chest were obtained without IV contrast. Multiplanar reformats were performed and viewed on a separate workstation and reviewed to further define anatomy and possible pathology. All CT scans at this facility use dose modulation, iterative reconstruction, and/or weight based dosing when appropriate to reduce radiation dose to as low as reasonably achievable. COMPARISON: CT chest 05/31/2024. FINDINGS: Redemonstrated are the multiple bilateral pulmonary nodules. Those are grossly stable in size and in number compared to prior exam. Pulmonary nodules: The clustered branching nodules at the right upper lobe with a prominent 5 mm endobronchial soft tissue thickening is essentially stable axial image #210 series 3. The central right middle lobe 8 mm pulmonary nodule is grossly stable axial image number 210. The noncalcified 6 mm right middle lobe pulmonary nodule axial image #224. 5 mm right lower lobe pulmonary nodule axial image #234. 6 mm groundglass left upper lobe pulmonary nodule axial image #164. There are a few scattered 2 to 3 mm peripheral pulmonary nodules stable compared to prior exam. There is moderate cardiomegaly with small pericardial effusion. There is no significant coronary artery calcifications. Thoracic aorta is grossly unremarkable given lack of IV dye. There is no pathological mediastinal adenopathy. Lung bases unremarkable. There is mild paraseptal emphysema. There is no gross new focal areas of consolidation, pleural effusion or pneumothorax. There are coarse calcification throughout the anterior spinal column with no gross acute osseous injury. Examination of the upper abdomen is unremarkable. Procedure Note Donato Bach MD - 01/31/2025 CT CHEST WO IV CONTRAST 01/30/2025 11:04 AM CLINICAL INDICATIONS:Bilateral pulmonary nodules follow-up TECHNIQUE: Multidetector CT axial slices of the chest were obtainedwithout IV contrast. Multiplanar reformats were performed and viewed on a separate workstation and reviewed to further define anatomy and possiblepathology. All CT scans at this facility use dose modulation, iterativereconstruction, and/or weight based dosing when appropriate to reduce radiation dose to aslow as reasonably achievable. COMPARISON: CT chest 05/31/2024. FINDINGS: Redemonstrated are the multiple bilateral pulmonary nodules. Those aregrossly stable in size and in number compared to prior exam. Pulmonary nodules: The clustered branching nodules at the right upper lobe with a prominent 5mm endobronchial soft tissue thickening is essentially stable axial image#210 series 3. The central right middle lobe 8 mm pulmonary nodule is grossly stableaxial image number 210. The noncalcified 6 mm right middle lobe pulmonary nodule axial image#224. 5 mm right lower lobe pulmonary nodule axial image #234. 6 mm groundglass left upper lobe pulmonary nodule axial image #164. There are a few scattered 2 to 3 mm peripheral pulmonary nodules stablecompared to prior exam. There is moderate cardiomegaly with small pericardial effusion. There isno significant coronary artery calcifications. Thoracic aorta is grossly unremarkable given lack of IV dye. There is no pathological mediastinal adenopathy. Lung bases unremarkable. There is mild paraseptal emphysema. There is no gross new focal areas of consolidation, pleural effusion or pneumothorax. There are coarse calcification throughout the anterior spinal column withno gross acute osseous injury. Examination of the upper abdomen is unremarkable. IMPRESSION: Grossly stable multiple bilateral pulmonary nodules largest at the rightmiddle lobe measures 7 mm. Continuous follow-up in 6 months is advised. Electronically signed: Donato Bach. Juan Casillas MD IMG CT PROCEDURES Final Result * CARDIAC DEVICE CHECK - REMOTE - PACEMAKER (12/21/2024 11:53 AM EDT) BSA 1.76 m2 [facility] Yoav Hollingsworth MD CV IMPLANTABLE CARDIAC DEVICE FL OCEDURES Final Result [facility] * CARDIAC DEVICE CHECK - IN CLINIC - PACEMAKER DUAL CHAMBER W/ PROG (12/13/2024 12:06 PM EDT) Anatomical Region Laterality Modality Other Narrative 12/25/2024 9:45 PM EDT By using the attestations below, the signing clinician agrees that I have read and verify that the documentation has been personally reviewed by me and ensure that the documentation accurately reflects the encounter. Routine EP device follow up as per schedule. Please see attached note Yoav Hollingsworth MD CV IMPLANTABLE CARDIAC DEVICE FL OCEDURES Final Result from Last 3 Months Insurance MEDICARE [employer] Advance Directives * Full Code (Latest Code Status on File) Date Activated Date Inactivated Comments 03/13/2024 11:09 AM 03/15/2024 2:26 PM * DNR CC-A Date Activated Date Inactivated Comments 03/08/2024 10:02 PM 03/13/2024 11:09 AM Question Answer Comments Select If Any Apply: No Intubation * Full Code Date Activated Date Inactivated Comments 03/08/2024 7:34 PM 03/08/2024 10:02 PM * Full Code Date Activated Date Inactivated Comments 05/13/2022 4:40 PM 05/14/2022 1:48 PM Care Teams Grain Operator Relationship Specialty Start Date End Date Billy Patel MD [address] [facility] [place] [address] PCP - General 05/13/22
--- OUTSIDE RECORDS SUMMARY | 2025-03-11 09:35 | XMS_ITS | Encounter Summary ---
Author Organization [facility] Address [address] [place] [address] Care Team Providers Care Enrichment Director Name Role Phone Billy Patel MD Primary Care Provider [phone] Encounter Details Date Type Department Care Team (Late st Contact Info) Description 02/27/2024 Clinisync Result Encounter [facility] External Department Unsolicited Lorie Hennessy DO [address] [place] [address] Social History Tobacco Use Types Packs/Day Years [...] Procedure Name Priority Date/Time Associated Diagnosis Comments US PELVIS 02/27/2024 11:40 AM EDT documented in this encounter Results * US PELVIS (02/27/2024 11:40 AM EDT) Anatomical Region Laterality Modality Other 02/27/2024 11:4 0 AM EDT Narrative 02/27/2024 11:42 AM EDT The [address] [address] Ultrasound Report Signed Patient: DEBORA GIFFORD MR#: [id number] : 1935 Acct:[id number] Age/Sex: 88 / F ADM Date: 02/27/24 Loc: [facility] Attending Dr: Lorie Hennessy D.O. Ordering Physician: Lorie Hennessy D.O. Date of Service: 02/27/24 Procedure(s): US pelvis Accession Number(s): [id number] cc: Lorie Hennessy D.O.; Billy Patel M.D. The [place] [id number] Patient Name: DEBORA GIFFORD MRN: [id number] date: 1935 Sex: F Assigned Patient Location: [facility] Current Patient Location: [facility] Accession/Order Number: [id number] Exam Date: 02/27/2024 10:40 Report Date: 02/27/2024 11:40 At the request of: LORIE HENNESSY Procedure: US pelvis EXAMINATION: US pelvis HISTORY: OVARIAN CYST COMPARISON: 11/29/2023 FINDINGS: The uterus is surgically absent The right ovary is not definitively seen. Noted in the right adnexa is an area of anechoic echogenicity measuring 5.1 x 3.2 x 5.0 cm. Some internal low-level echoes are observed Left ovary is nonvisualized No free fluid US/US pelvis IMPRESSION: 5.1 cm right adnexal cyst Electronically authenticated by: JAY MISTRY Date: 02/27/2024 11:40 Dictated By: Jay Mistry M.D. Signed By: 02/27/24 1142 DD/ 1140 TD/TT: [employer]: Procedure Note Radiology, Radiologist, MD - 02/27/2024 [place] [address] Ultrasound Report Signed Patient: DEBORA GIFFORD FMR#: [id number] : 1935cct:[id number] Age/Sex: 88 / FADM Date: 02/27/24 Loc: [facility] Attending Dr: Lorie Hennessy D.O. Ordering Physician: Lorie Hennessy D.O. Date of Service: 02/27/24 Procedure(s): US pelvis Accession Number(s): [id number] cc: Lorie Hennessy D.O.; Billy Patel M.D. [address] [address] Patient Name: DEBORA GIFFORD MRN: [id number] date: 1935 Sex: F Assigned Patient Location: [facility] Current Patient Location: [facility] Accession/Order Number: [id number] Exam Date: 02/27/2024 10:40 Report Date: 02/27/2024 11:40 At the request of: LORIE HENNESSY Procedure: US pelvis EXAMINATION: US pelvis HISTORY: OVARIAN CYST COMPARISON: 11/29/2023 FINDINGS: The uterus is surgically absent The right ovary is not definitively seen. Noted in the right adnexa is anarea of anechoic echogenicity measuring 5.1 x 3.2 x 5.0 cm. Some internallow-level echoes are observed Left ovary is nonvisualized No free fluid US/US pelvis IMPRESSION: 5.1 cm right adnexal cyst Electronically authenticated by: JAY MISTRY Date: 02/27/2024 11:40 Dictated By: Jay Mistry M.D. Signed By:02/27/24 1142 DD/ 1140 TD/TT: [employer]: us Lorie Hennessy DO [facility] Final Result documented in this encounter Visit Diagnoses Not on filedocumented in this encounter Care Teams Enrichment Director Relationship Specialty Start Date End Date Billy Patel MD PCP - General Family Medicine 12/19/23 documented as of this encounter
--- OUTSIDE RECORDS SUMMARY | 2025-03-11 09:35 | XMS_ITS | Encounter Summary ---
Author Organization [facility] Address [address] [place] [address] Care Team Providers Care Belt Buckle Maker Name Role Phone Billy Patel MD Primary Care Provider [phone] Encounter Details Date Type Department Care Team (Late st Contact Info) Description 03/05/2024 Abstract [facility] HUTSON [address] [place] [address] [place] [address] Nika Madrid LPN Social History Tobacco Use Types Packs/Day Years [...] on filedocumented in this encounter Care Teams Belt Buckle Maker Relationship Specialty Start Date End Date Billy Patel MD PCP - General Family Medicine 12/19/23 documented as of this encounter
--- OUTSIDE RECORDS SUMMARY | 2025-03-11 09:35 | XMS_ITS | Encounter Summary ---
Author Organization [facility] Address [address] [place] [address] Care Team Providers Care Fermentation Scientist Name Role Phone Billy Patel MD Primary Care Provider [phone] Bony Guerra MD Unavailable [phone] Encounter Details Date Type Department Care Team (Late st Contact Info) Description 11/22/2023 Orders Only [facility] [address] [place] [address] Social History Tobacco Use Types [...] Diagnosis Comments OUTPATIENT DEVICE CLINIC REFERRAL Routine 11/22/2023 4:03 PM EDT documented in this encounter Results * Outpatient Device Clinic Referral (11/22/2023 4:03 PM EDT) [facility] Implantable Pulse Generator Applications Processor Biotronik PACEART Implantable Pulse Generator Model 207638 Armida 8 MATEUSZ PACEART Implantable Pulse Generator Serial Number [id number] PACEART Implantable Pulse Generator Type Pacemaker PACEART Implantable Pulse Generator Implant Date PACEART Implantable Lead Applications Processor Biotronik PACEART Implantable Lead Model 377 176 Solia S 45 PACEART Implantable Lead Serial Number [id number] PACEART Implantable Lead Implant Date PACEART Implantable Lead Applications Processor Biotronik PACEART Implantable Lead Model 377 177 Nomi S 53 PACEART Implantable Lead Serial Number [id number] PACEART Implantable Lead Implant Date PACEART Date Time Interrogation Session [id number] PACEART 11/22/2023 4:03 PM EDT us Device Clinic [facility] C[facility]IAC [facility] O RDERABLES Final Result PACEART documented in this encounter Visit Diagnoses Not on filedocumented in this encounter Care Teams Fermentation Scientist Relationship Specialty Start Date End Date Billy Patel MD [address] [place] [address] PCP - General Family Medicine 06/15/23 Bony Guerra MD [address] [facility] [address] [place] [address] Cardiac Electrophysiology 06/28/23 documented as of this encounter
--- NOTE | 2025-03-11 10:00 | CA_ITS ---
Patient Name: DEBORA GIFFORD MR#: [id number] : 1935 Exam Date: 03/11/2025 Ordering Doctor: CHILANGO SANDOVAL CNP ECHOCARDIOGRAM REPORT PROCEDURE: CA ECHO DOPPLER COMPLETE INDICATIONS: Atrial fibrillation, heart failure, pacemaker, hypertension COMPARISON: None. DESCRIPTION: COMPLETE ECHOCARDIOGRAM Real-time transthoracic echocardiography with 2D, M-mode, spectral and color flow Doppler performed. QUALITY: Technical quality was good. LEFT VENTRICLE: Normal chamber size. Thickened septal wall. Normal systolic function. LV EF: Normal left ventricular ejection fraction, (55-60%). DIASTOLIC: Not adequately assessed due to heart rhythm. ATRIAL SEPTUM: Visually appears intact. LEFT ATRIUM: Severe dilatation. RIGHT ATRIUM: Moderate dilatation. RIGHT VENTRICLE: Normal chamber size. Normal systolic function. Pacer wire present. TRICUSPID VALVE: Normal mobility and thickness. No stenosis with trivial regurgitation. No evidence of pulmonary hypertension. RVSP 34 mmHg MITRAL VALVE: Normal mobility and thickness. No evidence of mitral valve stenosis. There is no mitral annular calcification. Mild mitral regurgitation. AORTIC VALVE: Normal trileaflet appearance. Normal leaflet mobility. No evidence of aortic valve stenosis. Multifocal calcifications. DVI 0.5. Mild to moderate aortic regurgitation. AORTIC ROOT: Normal diameter and appearance, measuring 3.1 cm. Ascending aorta is normal in size, measuring 3.0 cm. PULMONIC VALVE: Normal thickness and mobility. No stenosis. Trivial regurgitation. PERICARDIUM: No evidence of pericardial effusion. IVC: Normal in size. Collapses with inspiration. PLEURA: CONCLUSION: 1. Normal left ventricular size and systolic function. Estimated LVEF is 55 to 60%. 2. Normal right ventricular size and systolic function. 3. Moderate to severe biatrial dilatation. 4. Mild to moderate aortic regurgitation. 5. Mild mitral regurgitation. 6. Normal right-sided pressures. Adult Echocardiography Procedure Report Left Ventricle LVEDD (3.7 - 5.6 cm): 4.35 cm LVESD (2.2 - 4.0 cm): 2.75 cm LVIVS thickness (0.6 - 1.2 cm): 1.37 cm LVPW thickness (0.5 - 1.0 cm): 0.96 cm LVOT Max Gradient: 1.47 mm[Hg], 1.69 mm[Hg] LVOT Area (cm2): 0.63 m/s Peak Velocity (LVOT): 0.61 m/s, 0.65 m/s LVOT Diameter 1.98 cm Left Ventricular Ejection Fraction: 55-60 % Left Atrium LA Volume Index (2D A2C): 60.69 ml/m2 Left Atrium Systolic Dimension: 4.16 cm Mitral Valve Mitral Valve E-Wave Peak Velocity: 0.62 m/s Right Ventricle Aorta AO Root Diam: 3.13 cm Ascending Ao Diam: 3.00 cm Aortic Valve AoV Area (Peak Rivas): 1.56 cm2, 1.57 cm2, 1.55 cm2 Deceleration Cortland: 3.64 m/s2 Pressure Half-Time: 290.34 ms Peak Velocity(Antegrade Flow): 1.19 m/s, 1.30 m/s Peak Gradient(Antegrade Flow): 5.68 mm[Hg], 6.72 mm[Hg] Tricuspid Valve Peak Velocity (Regurgitant Flow): 2.26 m/s, 2.09 m/s, 2.76 m/s, 2.45 m/s Pulmonic Valve Peak Velocity: 0.68 m/s Peak Gradient: 1.79 mm[Hg], 1.73 mm[Hg], 2.07 mm[Hg] Right Atrium Right Atrium Systolic Pressure: 63.61 ml, 63.61 ml Dictated by: Ej Lopez M.D. on 03/11/2025 at 17:56 Approved by: Ej Lopez M.D. on 03/11/2025 at 18:00
== END 2025-03-11 09:33 | disposition home or self-care (01) ==
LOC: CARD 09:33
PROVIDERS: PCP Family Medicine; Visit Provider Nurse Practitioner Family
DX: I48.0 Paroxysmal atrial fibrillation (principal); I50.41 Acute combined systolic (congestive) and diastolic (congestive) heart failure
CPT/HCPCS: 93306

== ENCOUNTER 2025-05-15 09:46 | Outpatient (OUT) | payer MEDICARE, OTHER, SELFPAY ==
--- OUTSIDE RECORDS SUMMARY | 2025-05-07 06:00 | XMS_ITS ---
Author Organization The [facility] in [place] Address [address] [place] [address] Care Team Providers Care Insulation Board Calender Operator Name Role Phone Jorge Jose Alberto Primary Care Provider [phone] Allergies Allergen (clinical drug ingredient) Drug/Non Drug Allergy documented on EMR Reaction Allergy Type Onset Date Status Alpha Antwon Quinazolines (uncoded) Unknown Allergy Active Substance with sulfonamide structure and antibacterial mechanism of action (substance) Sulfa Drugs (uncoded) Unknown Allergy Active Procardia Unknown Drug Allergy Active enalapril Vasotec Unknown Drug Allergy Active lisinopril Zestril Unknown Drug Allergy Active Reason For Referral Reason Loose nail Diagnosis 1 Onychomycosis (B35.1 ) Referral Organization [facility] Medicine Referring Provider First Name Jose Alberto Referring Provider Last Name Jorge Referring Provider Speciality Family [facility] miguel Referred Provider Lui Valdez Referred Provider Specialty Orthopedic S urgery Referral Priority Routine REASON FOR VISIT BP in the AM in the 170's after pills goes to the 140's, right thumb nail- started as fungus- caught it on something tore nail- bleeding- cuticle red and inflammed very painful, Hidradenitis flare, US in November showed ovarian cyst Medications Medication SIG (Take, Route, Frequency, Duration) Notes Start Date End Date Status Vitamin D3 250 MCG (70427 UT) as directed Orally Active Xarelto 20 MG 1 tablet Orally Once a day; Duration: 30 days Active Metoprolol Tartrate 100 MG 1 tablet with food Orally Twice a day; Duration: 90 days 03/16/2024 Active Timolol Maleate 0.5 % 1 drop into affect ed eye Ophthalmic Once a day Active hydrALAZINE HCl 25 MG 1 tablet with food Orally Twice a day; Duration: 30 days 05/07/2025 Active Liothyronine Sodium 5 MCG TAKE 2 TABLETS ONCE DAILY Active Magnesium 250 MG 1 tablet with a meal Orally Twice Daily; Duration: 30 days Active Doxycycline Monohydrate 100 MG 1 tablet Orally bid; Duration: 14 days 05/07/2025 Active Ferrous Sulfate 325 (65 Fe) MG 1 tablet Orally Twice Daily; Duration: 30 days 03/28/2024 Active Atorvastatin Calcium 10 MG 1 tablet Oral ly Once a day; Duration: 30 days 03/16/2024 Active Bumetanide 1 MG 1 tablet Orally Once a day; Duration: 10 days Active dilTIAZem HCl ER 240 MG 1 tablet Orally Once a day Active Social History Tobacco Use: Social History Observation Description Date Details (start date - stop date) Never Smoker NA - NA Tobacco Use/Smoking Question Answer Notes Patient is a nonsmoker Problems Problem Type SNOMED Code ICD Code Onset Dates Problem Status W/U Status Risk Notes Problem Hidradenitis (87132197) Hidradenitis (L73.2) Active confirmed Vital Signs Weight 149.0 lbs 05/07/2025 Height 68 in 05/07/2025 Blood pressure systolic 155 mm Hg 05/07/20 25 Blood pressure diastolic 82 mm Hg 025 BMI 22.65 kg/m2 05/07/2025 Encounters Encounter Location Date Provider Diagnosis [facility] [address] [place] [address] 05/07/2025 Jose Alberto Hoy Onychomycosis B35.1 ; Hidradenitis L73.2 ; Ovarian cyst N83.209 and Benign essential HTN I10 Assessments Encounter Date Diagnosis (ICD Code) Assessment Notes Treatment Notes Treatment Clinical Notes Section Notes 05/07/2025 Onychomycosis (ICD-10 - B35.1) 05/07/2025 Hidradenitis (ICD-10 - L73.2) 05/07/2025 Ovarian cyst (ICD-10 - N83.209) 05/07/2025 Benign essential HTN (ICD-10 - I10) Plan Of Treatment Medication Medication Name Sig Start Date Stop Date Notes hydrALAZINE HCl 25 MG 1 tablet with food Orally Twice a day; Duration: 30 days 05/07/2025 Doxycycline Monohydrate 100 MG 1 tablet Orally bid; Duration: 14 days 05/07/2025 Pending Test Test Name Order Date US PELVIS AND TRANSVAG 05/07/2025 Referrals Referral Date Details 05/07/2025 05/07/2025, Loose rangel frazier, Lui Valdez Progress Notes * Karen GIFFORD FDOB: [birth year] (89 yo F)Acc No.[id number]:05/07/2025 Progress Note Patient: Karen BYRNES Provider: Phil Patel ([facility])MD :1935 A ge:89 Y S ex:Female Date:05/07/2025 Address:[address] [place] [address] [address] [place] [address], [phone] Check In:09:45 AM ESTCheck O ut:10:46 AM EST Subjective: * Chief Complaints: * B P in the AM in the 170's after pills goes to the 140'sRight thumb nail- started as fungus- caught it on something tore nail- bleeding- cuticle red and inflammed very painfulHidradenitis flareUS in November showed ovarian cyst * HPI: G eneral: Us robe than previou - may want to re[aet Bp up at [facility] 1y70. 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 Modified On:03/07/2023 Status:confirmed Z86.16 History of COVID-19 Modified On:08/05/2023 Status:confirmed L72.3 Sebaceous cyst Modified On:11/05/2022 Status:confirmed E66.3 Overweight Modified On:11/05/2022 Status:confirmed M85.80 Osteopenia Modified On:11/05/2022 Status:confirmed R06.00 Dyspnea Modified On:11/05/2022 Status:confirmed L30.9 Eczema Modified On:11/05/2022 Status:confirmed R60.0 Ankle edema Modified On:11/05/2022 Status:confirmed M25.50 Arthralgia, unspecif ied joint Modified On:11/05/2022 Status:confirmed Z00.00 Adult general medica l examination Modified On:11/05/2022 Status:confirmed I48.91 A-fib Modified On:12/01/2022 Status:confirmed I10 Benign essential HTN Modified On:08/05/2023 Status:confirmed E03.9 Hypothyroidism, unsp ecified type Modified On:08/05/2023 Status:confirmed I48.91 Atrial fibrillation, unspecified type Modified On:11/05/2022 Status:confirmed I10 Essential hypertensi on Modified On:11/05/2022 Status:confirmed G47.33 Obstructive sleep ap vesta Modified On:11/05/2022 Status:confirmed C44.91 Basal cell carcinoma Modified On:11/05/2022 Status:confirmed 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, left eye Modified On:11/05/2022 Status:confirmed H25.811 Combined form of age -related cataract, right eye Modified On:11/05/2022 Status:confirmed M19.90 Degenerative joint d isease Modified On:11/05/2022 Status:confirmed H53.139 Sudden visual loss, unspecified eye Modified On:11/05/2022 Status:confirmed I10 HTN (hypertension) Modified On:11/05/2022 Status:confirmed N60.19 Fibrocystic breast d isease Modified On:11/05/2022 Status:confirmed E78.00 Pure hypercholestero lemia Modified On:11/05/2022 Status:confirmed I34.0 Mitral regurgitation Modified On:11/05/2022 Status:confirmed I07.1 Tricuspid regurgitat ion Modified On:11/05/2022 Status:confirmed I35.1 Aortic insufficiency Modified On:11/05/2022 Status:confirmed I51.7 Ventricular hypertro phy Modified On:11/05/2022 Status:confirmed R06.09 Dyspnea on exertion Modified On:01/25/2023 Status:confirmed J84.9 Interstitial pulmona ry disease, unspecified Modified On:02/11/2023 Status:confirmed I51.7 Cardiomegaly Modified On:02/23/2023 Status:confirmed I50.9 CHF exacerbation Modified On:03/04/2023 Status:confirmed J44.9 Advanced COPD Modified On:03/04/2023 Status:confirmed I10 BP (high blood press ure) Modified On:03/04/2023 Status:confirmed E78.5 Dyslipidemia Modified On:03/04/2023 Status:confirmed I50.9 CHF (congestive hear t failure) Modified On:03/04/2023 Status:confirmed I50.33 Acute on chronic bety stolic (congestive) heart failure Modified On:03/07/2023 Status:confirmed I21.3 Myocardial infarct Modified On:03/16/2023 Status:confirmed I50.9 Acute exacerbation o f CHF (congestive heart failure) Modified On:03/24/2023 Status:confirmed I10 Hypertension Modified On:03/24/2023 Status:confirmed I48.0 Paroxysmal a-fib Modified On:03/24/2023 Status:confirmed Z95.0 Pacemaker Modified On:03/24/2023 Status:confirmed R91.1 Solitary pulmonary n odule Modified On:05/26/2023 Status:confirmed K29.70 Gastritis Modified On:11/23/2023 Status:confirmed R19.00 Pelvic mass in femal e Modified On:12/08/2023 Status:confirmed I48.0 PAF (paroxysmal atri al fibrillation) Modified On:03/26/2024 Status:confirmed E03.9 Acquired hypothyroid ism Modified On:03/26/2024 Status:confirmed L73.2 Hidradenitis Modified On:05/07/2025W/U Status:confirmed * Medical History: * Surgical History: V aginal Hysterectomy cardiac pacemeker Cholecystectomy tonsillectomy and adenoidectomy right knee arthroscopy Colonoscopy/EGD- Dr Jones 05/09/24Gelsyn Injections- Ortho 07/23/2024 * Hospitalization/Major Diagno stic Procedure: C ovid-19-TBH 07/03/2020SOB/COUGH-TBH 02/21/2023SOB-TBH 02/24/2023fluid over load 03/2024 * Family History: F ather: , Rheumatoid Arthritis, Heart Disease, diagnosed with Unspecified heart disease. M other: , hypertension, diagnosed with Unspecified essential hypertension. B rother(s): , depression. S on(s): alive, mva, asthma. D yosef(s): alive, hyperthyroidism. 1 brother(s) . 2 son(s) , 3 daughter(s) . . Sons: 1 , 1 living. * Social History: T obacco Use: E lectronic Cigarette use C urrent user N o Tobacco Use/Smoking P atient is a n onsmoker * Medications: T akingAtorvastatin Calcium 10 MG Tablet 1 tablet Orally Once a day Bumetanide 1 MG Tablet 1 tablet Orally Once a day dilTIAZem HCl ER 240 MG Tablet Extended Release 24 Hour 1 tablet Orally Once a day Ferrous Sulfate 325 (65 Fe) MG Tablet 1 tablet Orally Twice Daily Liothyronine Sodium 5 MCG Tablet TAKE 2 TABLETS ONCE DAILY Magnesium 250 MG Tablet 1 tablet with a meal Orally Twice Daily Metoprolol Tartrate 100 MG Tablet 1 tablet with food Orally Twice a day Timolol Maleate 0.5 % Solution 1 drop into affected eye Ophthalmic Once a day Vitamin D3 250 MCG (89060 UT) Capsule as directed Orally Xarelto(Rivaroxaban) 20 MG Tablet 1 tablet Orally Once a day Taking Atorvastatin Calcium 10 MG Tablet 1 tablet Orally Once a day Taking Bumetanide 1 MG Tablet 1 tablet Orally Once a day Taking dilTIAZem HCl ER 240 MG Tablet Extended Release 24 Hour 1 tablet Orally Once a day Taking Ferrous Sulfate 325 (65 Fe) MG Tablet 1 tablet Orally Twice Daily Taking Liothyronine Sodium 5 MCG Tablet TAKE 2 TABLETS ONCE DAILY Taking Magnesium 250 MG Tablet 1 tablet with a meal Orally Twice Daily Taking Metoprolol Tartrate 100 MG Tablet 1 tablet with food Orally Twice a day Taking Timolol Maleate 0.5 % Solution 1 drop into affected eye Ophthalmic Once a day Taking Vitamin D3 250 MCG (50393 UT) Capsule as directed Orally Taking Xarelto(Rivaroxaban) 20 MG Tablet 1 tablet Orally Once a day DiscontinuedDoxycycline Monohydrate 100 MG Capsule 1 capsule Orally bid Medication List reviewed and reconciled with the patientDiscontinued Doxycycline Monohydrate 100 MG Capsule 1 capsule Orally bid Medication List reviewed and reconciled with the patient * Allergies: A lpha Antwon Quinazolines: AllergySulfa Drugs: AllergyProcardiaVasotecZestrilno[Allergies Verified] Objective: * Vitals: W t:149.0lbs, Ht: 68 in, BP:155/82mm Hg, BMI:22.65Index. Assessment: * Assessment: 1. O nychomycosis - B35.1 (Primary) 2 . H idradenitis - L73.2 ?3. O varian cyst - N83.209 4 . B enign essential HTN - I10 ? Plan: * Treatment: 2. O varian cyst I maging: US PELVIS AND TRANSVAG 3. O thers Start hydrALAZINE HCl Tablet, 25 MG, 1 tablet with food, Orally, Twice a day, 30 days, 60 Tablet, Refills 11; S tart Doxycycline Monohydrate Tablet, 100 MG, 1 tablet, Orally, bid, 14 days, 28 Tablet, Refills 4. * Procedure Codes: * * Sign off status: Completed Visit Status: C HK (Check Out) true * Provider: Phil Patel ([facility])MD Date: 0 05/07/2025 Generated for Printi ng/Fagaldinog/eTransmitting on: 1 10:01 AM EDT History and Physical Notes * HPI (History of Present Illness) Category Sub-Category Detail Notes Category Not es General Us robe than previou - may want to re[aet Bp up at [facility] th 1y70 Consultation Request Notes Referral Date Referring Provider Referred Provider Not es 05/07/2025 Jose Alberto Patel Justin Loose nail
--- OUTSIDE RECORDS SUMMARY | 2025-05-15 10:02 | XMS_ITS | Clinical Summary ---
Author Organization [facility] Address [address] [place] [address] Care Team Providers Care Loss Prevention/Safety District Manager Name Role Phone Billy Patel MD Primary Care Provider [phone] Sean Redman DO Unavailable [phone] Allergies Active Allergy Reactions Criticality Noted [...] eyes 2 times daily. 30 mL 3 5 Active Active Problems No known active problems Family History Medical History Relation Name Comments [...] Description 05/27/2025 3:00 PM EDT Office Visit [facility] [place] [address] [place] [address] Leonides Stahl MD [address] [place] [address] Health Maintenance Due Date Last Done Comments DEXA SCAN DISCUSSION 1935 POTASSIUM 1935 TSH 1935 CERVICAL CANCER SCREENING DISCUSSION 1958 COLORECTAL CANCER SCREENING DISCUSSION 1982 PNEUMOCOCCAL VACCINE SERIES (1 of 1 - PCV) 1987 ZOSTER (SHINGLES) VACCINE (1 of 2) 1987 MAMMOGRAM SCREENING DISCUSSION 01/23/2015 01/23/2014 COVID-19 VACCINE ( season) 2025 04/29/2022, 11/25/2021, 06/10/2021, Additional history exists INFLUENZA VACCINE (#1) 2025 , 05/13/2021, 05/07/2020, Additional history exists TETANUS 06/09/2032 06/09/2022, 06/0 08/2019, 07/05/2012, Additional history exists TDAP (ADULT) Completed 06/09/2022, 06/16, 01/12/2002 RSV VACCINE Completed 07/13/2023 HEP B VACCINE Aged Out No longer lashonda tang based on patient's age to complete this topic Insurance Medicare A and B Medicare Supplement Care Teams Loss Prevention/Safety District Manager Relationship Specialty Start Date End Date Billy Patel MD PCP - General Family Medicine 05/31/23 Sean Redman DO Ophthalmology 05/31/23
--- OUTSIDE RECORDS SUMMARY | 2025-05-15 10:02 | XMS_ITS | Encounter Summary ---
Author Organization [facility] Address [address] [place] [address] Care Team Providers Care Traveling Electrician Name Role Phone Billy Patel MD Primary Care Provider [phone] Encounter Details Date Type Department Care Team (Late st Contact Info) Description 03/05/2024 Abstract [facility] [address] [place] [phone] Lan Hennessy DO [address] [place], [facility] Social History Tobacco Use Types Packs/Day Years [...] on filedocumented in this encounter Care Teams Traveling Electrician Relationship Specialty Start Date End Date Billy Patel MD PCP - General Family Medicine 12/19/23 documented as of this encounter
--- OUTSIDE RECORDS SUMMARY | 2025-05-15 10:02 | XMS_ITS | Clinical Summary ---
Author Organization [facility] Address [address] [place], [place] [id number] Care Team Providers Care Silk Screen Layout Drafter Name Role Phone Billy Patel MD Primary Care Provider [phone] Social History Tobacco Use Types Packs/Day Years Used Date Smoking Tobacco: Never Assessed Comments Unknown Sex and Gender Information Value Date Recorded Sex Assigned at Not on file Legal Sex Female 9:30 AM EST Gender Identity Not on file Sexual Orientation Not on file Plan of Treatment Not on file Insurance MEDICARE Member Subscriber Plan / Payer (Ef fective 2002-Present) Name:Karen Ladd Member ID:[id number] Relation to Subscriber:Self Name:Karen Ladd Subscriber ID:[id number] Payer ID:Not on file Group ID:Not on file Type:Medicare Address: [address] Care Teams Silk Screen Layout Drafter Relationship Specialty Start Date End Date Billy Patel MD PCP - General Family Medicine 10/14/14
--- OUTSIDE RECORDS SUMMARY | 2025-05-15 10:02 | XMS_ITS | Encounter Summary ---
Author Organization [facility] Address [address] [place] [address] Care Team Providers Care Relationship Advisor Name Role Phone Billy Patel MD Primary Care Provider [phone] Encounter Details Date Type Department Care Team (Late st Contact Info) Description 04/26/2024 Abstract [facility] [address] [place] [phone] Ángela Mayes LPN [address] [place] [id number] Social History Tobacco Use Types Packs/Day Years [...] on filedocumented in this encounter Care Teams Relationship Advisor Relationship Specialty Start Date End Date Billy Patel MD PCP - General Family Medicine 12/19/23 documented as of this encounter
--- OUTSIDE RECORDS SUMMARY | 2025-05-15 10:02 | XMS_ITS | Clinical Summary ---
Author Organization [facility] tem Address [facility] [address] [place] [address] Care Team Providers Care Stunt Woman Name Role Phone Provider, Conversion MD Primary [...] 1987 Fall Risk Screening 2002 COVID-19 Vaccine (2024-2 6 season) 2025 05/26/2023, 04/29/2022, 11/25/2021, Additional history exists Influenza Vaccine 04/15/2025 05/26/2023, , 05/07/2020, Additional history exists DTaP,Tdap and Td Vaccines (4 - Td or Tdap) 06/09/2032 06/09/2022, 01/14/2020, 07/05/2012, Additional history exists Medical Devices Not on file Insurance MEDICARE [id number] PLAN Care Teams Stunt Woman Relationship Specialty Start Date End Date ProviderSpencer MD PCP - General 02/07/14
--- OUTSIDE RECORDS SUMMARY | 2025-05-15 10:02 | XMS_ITS | Encounter Summary ---
Author Organization [facility] Address [address] [place] [address] Care Team Providers Care Skin Pass Operator Name Role Phone Billy Patel MD Primary Care Provider [phone] Encounter Details Date Type Department Care Team (Late st Contact Info) Description 02/27/2024 Clinisync Result Encounter [facility] External Department Unsolicited Lorie Hennessy DO [address] [place] [address] Social History Tobacco Use Types Packs/Day Years [...] EDT Narrative 02/27/2024 11:42 AM EDT The [address] [address] Ultrasound Report Signed Patient: DEBORA GIFFORD MR#: [id number] : 1935 Acct:[id number] Age/Sex: 88 / F ADM Date: 02/27/24 Loc: [facility] Attending Dr: Lorie Hennessy D.O. Ordering Physician: Lorie Hennessy D.O. Date of Service: 02/27/24 Procedure(s): US pelvis Accession Number(s): [id number] cc: Lorie Hennessy D.O.; Billy Patel M.D. The [place] [id number] Patient Name: DEBORA GIFFORD MRN: [id number] date: 1935 Sex: F Assigned Patient Location: [facility] Current Patient Location: [facility] Accession/Order Number: [id number] Exam Date: 02/27/2024 10:40 Report Date: 02/27/2024 [...] Signed By: 02/27/24 1142 DD/ 1140 TD/TT: Screwmaker Automatic: Procedure Note Radiology, Radiologist, MD - 02/27/2024 [place] [address] Ultrasound Report Signed Patient: DEBORA GIFFORD FMR#: [id number] : 1935cct:[id number] Age/Sex: 88 / FADM Date: 02/27/24 Loc: [facility] Attending Dr: Lorie Hennessy D.O. Ordering Physician: Lorie Hennessy D.O. Date of Service: 02/27/24 Procedure(s): US pelvis Accession Number(s): [id number] cc: Lorie Hennessy D.O.; Billy Patel M.D. [address] [address] Patient Name: EDBORA GIFFORD MRN: [id number] date: 1935 Sex: F Assigned Patient Location: [facility] Current Patient Location: [facility] Accession/Order Number: [id number] Exam Date: 02/27/2024 10:40 Report Date: 02/27/2024 [...] M.D. Signed By:02/27/24 1142 DD/ 1140 TD/TT: Screwmaker Automatic: us Lorie Hennessy DO [facility] Final Result documented in this encounter Visit Diagnoses Not on filedocumented in this encounter Care Teams Skin Pass Operator Relationship Specialty Start Date End Date Billy Patel MD PCP - General Family Medicine 12/19/23 documented as of this encounter
--- OUTSIDE RECORDS SUMMARY | 2025-05-15 10:02 | XMS_ITS | Patient Health Record ---
Author Organization [facility] Address [address] [place] [address] Care Team Providers Care Hoop Punch Operator Helper Name Role Phone NO, PCP Primary Care Provider OSMANY Corona Unavailable [phone] DOM MIKE Unavailable Unavailable Allergies No Known Allergies Reason For Referral No Information Medications Medication SIG (Take, Route, Frequency, Duration) Notes Start Date End Date Status Pepcid Active Social History Tobacco Use: Social History Observation Description Date Details (start date - stop date) Never Smoker NA - NA Tobacco Control (Standard) Question Answer Notes Tobacco use: Nonsmoker Problems Problem Type SNOMED Code ICD Code Onset Dates Problem Status W/U Status Risk Notes Problem History of polyp of colon (situation) (424319262) History of colon polyps (Z86.010) Active confirmed Plan Of Treatment Pending Test Test Name Order Date Tissue Request for Pathology 10/18/2023 Insurance Providers Payer Name Payer Address Payer Phone Subscriber Number Group Number Insured Name Patient Relationship to Insured Coverage Start Date Coverage End Date [employer] [place] [employer] [address] [address] [place] [phone] [id number] DEBORA GIFFORD Self - patient is the insured Medical (General) History Medical History History ICD Code A-Fib Cataract GERD Glaucoma Hypertension H/o Colon polyps Surgical History Surgery Date(Month/Year) Colonoscopy 2013 EGD Cholecystectomy 1968 Hysterectomy 1985 Hospitalization History Reason Date(Month/Year) [facility] - RUQ Pain 10/17/2023
--- OUTSIDE RECORDS SUMMARY | 2025-05-15 10:02 | XMS_ITS | Encounter Summary ---
Author Organization [facility] Address [address] [place] [address] Care Team Providers Care Office Auditor Name Role Phone Billy Patel MD Primary Care Provider [phone] Sean Redman DO Unavailable [phone] Encounter Details Date Type Department Care Team (Late st Contact Info) Description 12/24/2024 Orders Only Central Scheduling [address] [place] [phone] Kandy Sousa Social History Tobacco Use Types Packs/Day Years Used Date Smoking Tobacco: Never Smokeless Tobacco: Never Alcohol Use Standard Drinks/Week Comments Not Currently 0 (1 standard drink = 0.6 oz pur e alcohol) Comments Unknown Sex and Gender Information Value Date Recorded Sex Assigned at Not on file Legal Sex Female 12:24 PM EDT Gender Identity Not on file Sexual Orientation Not on file documented as of this encounter Plan of Treatment Upcoming Encounters Date Type Department Care Team (Late st Contact Info) Description 05/27/2025 3:00 PM EDT Office Visit [facility] [place] [facility] [place] [address] [place] [address] [address] [place] [address] Leonides Stahl MD [address] [facility] [address] [place] [address] documented as of this encounter Visit Diagnoses Not on filedocumented in this encounter Care Teams Office Auditor Relationship Specialty Start Date End Date Billy Patel MD PCP - General Family Medicine 05/31/23 Sean Redman DO Ophthalmology 05/31/23 documented as of this encounter
--- OUTSIDE RECORDS SUMMARY | 2025-05-15 10:02 | XMS_ITS | Clinical Summary ---
Author Organization [facility] Address [address] [place] [address] Care Team Providers Care Eye Physician Name Role Phone Billy Patel MD Primary Care Provider [phone] Allergies Active Allergy Reactions Criticality Noted Date [...] series) 2012 Annual Wellness Visit (Medicare) 07/11/2023 Flu vaccine (#1) 03/15/2025 COVID-19 Vaccine (2023-2 5 season) 2025 Hepatitis A vaccine Aged Out No longe [...] this topic Insurance MEDICARE [employer] Care Teams Eye Physician Relationship Specialty Start Date End Date Billy Patel MD [address] [place] [phone] PCP - General Family Medicine 03/09/23
--- OUTSIDE RECORDS SUMMARY | 2025-05-15 10:02 | XMS_ITS | Encounter Summary ---
Author Organization [facility] Address [address] [place] [address] Care Team Providers Care Stick Welder Name Role Phone Billy Patel MD Primary Care Provider [phone] Encounter Details Date Type Department Care Team (Late st Contact Info) Description 03/30/2024 Abstract [facility] [address] [place] [phone] Ángela Mayes LPN [address] [place] [id number] Social History Tobacco Use Types Packs/Day Years [...] on filedocumented in this encounter Care Teams Stick Welder Relationship Specialty Start Date End Date Billy Patel MD PCP - General Family Medicine 12/19/23 documented as of this encounter
--- OUTSIDE RECORDS SUMMARY | 2025-05-15 10:02 | XMS_ITS | Patient Health Record ---
Author Organization [facility] in [place] Address [address] [place] [address] Care Team Providers Care Sports Coordinator Name Role Phone Jose Alberto Patel Primary Care Provider [phone] Stiven Linares Unavailable [phone] Allergies Allergen (clinical drug ingredient) Drug/Non Drug Allergy documented on EMR Reaction Allergy Type Onset Date Status Alpha Antwon Quinazolines (uncoded) Unknown Allergy Active Substance with sulfonamide structure and antibacterial mechanism of action (substance) Sulfa Drugs (uncoded) Unknown Allergy Active Procardia Unknown Drug Allergy Active enalapril Vasotec Unknown Drug Allergy Active lisinopril Zestril Unknown Drug Allergy Active Results Component Value Reference Range Notes CA echo doppler complete Reviewed date:03/12/2025 08:04:20 AM Interpretation: Performing Lab: Notes/Report: Source Facility: [place] [address] Cardiology Report Signed Patient: KAREN GIFFORD MR#: [id number] : 1935 Acct:[id number] Age/Sex: 89 / F ADM Date: 03/11/25 Loc: CARD Attending Dr: CHILANGO SANDOVAL APRN Ordering Physician: CHILANGO ASNDOVAL APRN Date of Service: 03/11/25 Procedure(s): CA echo doppler complete Accession Number(s): [id number] cc: Billy Patel M.D.; CHILANGO SANDOVAL APRN Patient Name: KAREN GIFFORD MR#: [id number] : 1935 Exam Date: 03/11/2025 Ordering Doctor: CHILANGO SANDOVAL [facility] ECHOCARDIOGRAM REPORT PROCEDURE: CA ECHO DOPPLER COMPLETE INDICATIONS: Atrial fibrillation, heart failure, pacemaker, hypertension COMPARISON: None. DESCRIPTION: COMPLETE ECHOCARDIOGRAM Real-time transthoracic echocardiography with 2D, M-mode, spectral and color flow Doppler performed. QUALITY: Technical quality was good. LEFT VENTRICLE: Normal chamber size. Thickened septal wall. Normal systolic function. LV EF: Normal left ventricular ejection fraction, (55-60%). DIASTOLIC: Not adequately assessed due to heart rhythm. ATRIAL SEPTUM: Visually appears intact. LEFT ATRIUM: Severe dilatation. RIGHT ATRIUM: Moderate dilatation. RIGHT VENTRICLE: Normal chamber size. Normal systolic function. Pacer wire present. TRICUSPID VALVE: Normal mobility and thickness. No stenosis with trivial regurgitation. No evidence of pulmonary hypertension. RVSP 34 mmHg MITRAL VALVE: Normal mobility and thickness. No evidence of mitral valve stenosis. There is no mitral annular calcification. Mild mitral regurgitation. AORTIC VALVE: Normal trileaflet appearance. Normal leaflet mobility. No evidence of aortic valve stenosis. Multifocal calcifications. DVI 0.5. Mild to moderate aortic regurgitation. AORTIC ROOT: Normal diameter and appearance, measuring 3.1 cm. Ascending aorta is normal in size, measuring 3.0 cm. PULMONIC VALVE: Normal thickness and mobility. No stenosis. Trivial regurgitation. PERICARDIUM: No evidence of pericardial effusion. IVC: Normal in size. Collapses with inspiration. PLEURA: CONCLUSION: 1. Normal left ventricular size and systolic function. Estimated LVEF is 55 to 60%. 2. Normal right ventricular size and systolic function. 3. Moderate to severe biatrial dilatation. 4. Mild to moderate aortic regurgitation. 5. Mild mitral regurgitation. 6. Normal right-sided pressures. Adult Echocardiography Procedure Report Left Ventricle LVEDD (3.7 - 5.6 cm): 4.35 cm LVESD (2.2 - 4.0 cm): 2.75 cm LVIVS thickness (0.6 - 1.2 cm): 1.37 cm LVPW thickness (0.5 - 1.0 cm): 0.96 cm LVOT Max Gradient: 1.47 mm[Hg], 1.69 mm[Hg] LVOT Area (cm2): 0.63 m/s Peak Velocity (LVOT): 0.61 m/s, 0.65 m/s LVOT Diameter 1.98 cm Left Ventricular Ejection Fraction: 55-60 % Left Atrium LA Volume Index (2D A2C): 60.69 ml/m2 Left Atrium Systolic Dimension: 4.16 cm Mitral Valve Mitral Valve E-Wave Peak Velocity: 0.62 m/s Right Ventricle Aorta AO Root Diam: 3.13 cm Ascending Ao Diam: 3.00 cm Aortic Valve AoV Area (Peak Rivas): 1.56 cm2, 1.57 cm2, 1.55 cm2 Deceleration [place]: 3.64 m/s2 Pressure Half-Time: 290.34 ms Peak Velocity(Antegrade Flow): 1.19 m/s, 1.30 m/s Peak Gradient(Antegrade Flow): 5.68 mm[Hg], 6.72 mm[Hg] Tricuspid Valve Peak Velocity (Regurgitant Flow): 2.26 m/s, 2.09 m/s, 2.76 m/s, 2.45 m/s Pulmonic Valve Peak Velocity: 0.68 m/s Peak Gradient: 1.79 mm[Hg], 1.73 mm[Hg], 2.07 mm[Hg] Right Atrium Right Atrium Systolic Pressure: 63.61 ml, 63.61 ml Dictated by: Hedy Lopez M.D. on 03/11/2025 at 17:56 Approved by: Hedy Lopez M.D. on 03/11/2025 at 18:00 Dictated By: HEYD LOPEZ Signed By: 03/11/251800 DD/ 1800 TD/TT: Lighting Fixture Installer: US PELVIS (Not yet reviewed by provider) Interpretation: Performing Lab: Notes/Report: Source Facility: [place] [address] [place] [address] Ultrasound Report Signed Patient: KAREN GIFFORD MR#: [id number] : 1935 Acct:[id number] Age/Sex: 89 / F ADM Date: 12/11/24 Loc: US Attending Dr: Stiven Linares M.D. Ordering Physician: Stiven Linares M.D. Date of Service: 12/11/24 Procedure(s): US pelvis Accession Number(s): [id number] cc: Stiven Linares M.D.; Billy Patel M.D. The [place] [id number] Patient Name: KAREN GIFFORD MRN: [id number] date: 1935 Sex: F Assigned Patient Location: US Current Patient Location: US Accession/Order Number: [id number] Exam Date: 12/11/2024 11:41 Report Date: 12/11/2024 11:44 At the request of: STIVEN LINARES MD Procedure: US pelvis Pelvic ultrasound. Reason for exam: Follow-up adnexal cyst. Comparison: Ultrasound 02/27/2024 Technique: Transabdominal imaging of the uterus and ovaries was performed Findings: Patient is status post partial hysterectomy. Ovaries are not clearly identified. A right adnexal cyst is present measuring 2.7 x 2.4 x 2.1 cm which appears to have decreased in size since the prior ultrasound study. No adnexal mass or free fluid. US/US pelvis Impression: Interval reduction since size of the right adnexal cyst now measuring 2.7 x 2.4 x 2.1 cm suggesting a benign process. Impression dictated by: Greg Patel Jr. DChloéOChloé 12/11/2024 11:44 AM Dictation Location: [place] [address] Electronically authenticated by: [id number] Y Date: 12/11/2024 11:44 Dictated By: Greg Patel M.D. Signed By: 12/11/24 1147 DD/ 1144 TD/TT: Lighting Fixture Installer: Reason For Referral Reason Loose nail Diagnosis 1 Onychomycosis (B35.1 ) Referral Organization [facility] Referring Provider First Name Jose Alberto Referring Provider Last Name Jorge Referring Provider Speciality Family Med icine Referred Provider Lui Valdez Referred Provider Specialty Orthopedic S urgery Referral Priority Routine Medications Medication SIG (Take, Route, Frequency, Duration) Notes Start Date End Date Status Atorvastatin Calcium 10 MG 1 tablet Oral ly Once a day; Duration: 30 days 03/16/2024 Active Bumetanide 1 MG 1 tablet Orally Once a day; Duration: 10 days Active Vitamin D3 250 MCG (04347 UT) as directed Orally Active Xarelto 20 MG 1 tablet Orally Once a day; Duration: 30 days Active Metoprolol Tartrate 100 MG 1 tablet with food Orally Twice a day; Duration: 90 days 03/16/2024 Active Timolol Maleate 0.5 % 1 drop into affect ed eye Ophthalmic Once a day Active Liothyronine Sodium 5 MCG TAKE 2 TABLETS ONCE DAILY Active Magnesium 250 MG 1 tablet with a meal Orally Twice Daily; Duration: 30 days Active hydrALAZINE HCl 25 MG 1 tablet with food Orally Twice a day; Duration: 30 days 05/07/2025 Active Doxycycline Monohydrate 100 MG 1 tablet Orally bid; Duration: 14 days 05/07/2025 Active Ferrous Sulfate 325 (65 Fe) MG 1 tablet Orally Twice Daily; Duration: 30 days 03/28/2024 Active dilTIAZem HCl ER 240 MG 1 tablet Orally Once a day Active Immunizations Vaccine Route Administration Date Status Comme nts Arexvy Unknown 07/13/2023 Administered Zambikes [place] Syringe Pre -Filled 30 mcg/0.3 mL Unknown 04/24/2024 Administered Flu, Fluad (72822) 65 yrs + High Dose Seasonal () Unknown 05/16/2017 Administered Flu, Fluad (18699) 65 yrs + High Dose Seasonal () Unknown 06/01/2024 Administered Flu, Fluad (89812) 65 yrs an d older, single-dose syringe (6474-4932) Unknown 05/07/2020 Administered Flu, Fluad (55231) 65 yrs an d older, single-dose syringe () Unknown 05/13/2021 Administered Flu, Fluzone High-Dose (2022) (16101) 65 yrs+ Unknown 05/26/2023 Administered SARS-COV-2 (COVID 19 Moderna - Booster 0.25mL) Unknown 09/04/2020 Administered SARS-COV-2 (COVID 19 Moderna - Booster 0.25mL) Unknown 10/02/2020 Administered SARS-COV-2 (COVID 19 [email or web address] 30mcg/0.3mL) Unknown 06/10/2021 Administered SARS-COV-2 (COVID 19 [email or web address] 30mcg/0.3mL), meg sucrose Unknown 11/25/2021 Administered SARS-COV-2 (COVID 19) bivale nt 30 mcg/0.3 ml dose Unknown 04/29/2022 Administered Spikevax Moderna Syringe Pre -Filled 50 mcg/0.5 mL Unknown 05/26/2023 Administered Td, Adult, preservative free Unknown 01/14/2020 Adminis tered Tdap (Boostrix) Unknown 07/05/2012 Administered Tdap (Boostrix) Unknown 06/09/2022 Administered ZOSTER (SHINGLES) VACCINE (HZV) Unknown 06/01/2024 Admi nistered Social History Tobacco Use: Social History Observation Description Date Details (start date - stop date) Never Smoker NA - NA Tobacco Use/Smoking Question Answer Notes Patient is a nonsmoker Alcohol Screen (Audit-C) Question Answer Notes Did you have a drink containing alcohol in the p ast year? No Points 0 Interpretation Negative AUDIT-C (Standard) Question Answer Notes Did you have a drink containing alcohol in the p ast year? 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) Active confirmed Problem Sebaceous cyst (063341784) Sebaceous cyst (L72.3) Active confirmed Problem Solitary pulmonary nodule (457405043) Solitary pulmonary nodule (R91.1) Active confirmed Problem Mitral regurgitation (48568256) Mitral regurgitation (I34.0) Active confirmed Problem Hypertension (55412457) Hypertension (I10) Active confirmed Problem Congestive heart failure (64441334) CHF (congestive heart failure) (I50.9) Active confirmed Problem Tricuspid regurgitation (792091218) Tricuspid regurgitation (I07.1) Active confirmed Problem Dyslipidemia (384470894) Dyslipidemia (E78.5) Active confirmed Problem Hypertension (04948953) HTN (hypertension) (I10) Active confirmed Problem Atrial fibrillation (35579144) Paroxysmal a-fib (I48.0) Active confirmed Problem Dyspnea on exertion (87883404) Dyspnea on exertion (R06.09) Active confirmed Problem Essential hypertension (58341171) Essential hypertension (I10) Active confirmed Problem Osteopenia (472411876) Osteopenia (M85.80) Active confirmed Problem Dyspnea (936500284) Dyspnea (R06.00) Active con firmed Problem Essential hypertension (13197677) Benign essential HTN (I10) Active confirmed Problem Obstructive sleep apnea syndrome (88654228) LANEY (obstructive sleep apnea) (G47.33) Active confirmed Problem Cardiac pacemaker in situ (439238864) Pacemaker (Z95.0) Active confirmed Problem Obstructive sleep apnea (06684673) Obstructive sleep apnea (G47.33) Active confirmed Problem Atrial fibrillation (99788946) A-fib (I48.91) Active confirmed Problem Eczema (17742742) Eczema (L30.9) Active confirm ed Problem Paroxysmal atrial fibrillation (376402000) Paroxysmal atrial fibrillation (I48.0) Active confirmed Problem Gastritis (3120233) Gastritis (K29.70) Active c onfirmed Problem Acquired hypothyroidism (698127670) Acquired hypothyroidism (E03.9) Active confirmed Problem Hidradenitis (57598307) Hidradenitis (L73.2) Active confirmed Problem Aortic insufficiency (29718330) Aortic insufficiency (I35.1) Active confirmed Problem Chronic diastolic heart failure (681516559) Chronic diastolic congestive heart failure (I50.32) Active confirmed Problem Ventricular hypertrophy (022247645) Ventricular hypertrophy (I51.7) Active confirmed Problem Basal cell carcinoma (0723641) Basal cell carcinoma (C44.91) Active confirmed Problem Exacerbation of congestive heart failure (70689335493917) CHF exacerbation (I50.9) Active confirmed Problem Degenerative joint disease (964412567) Degenerative joint disease (M19.90) Active confirmed Problem Myocardial infarct (38115432) Myocardial infarct (I21.3) Active confirmed Problem Ankle edema (62540265) Ankle edema (R60.0) Active confirmed Problem Multiple pulmonary nodules (864003408) Multiple pulmonary nodules (R91.8) Active confirmed Problem Atrial fibrillation (77711712) PAF (paroxysmal atrial fibrillation) (I48.0) Active confirmed Problem Fibrocystic breast changes (65340398) Fibrocystic breast disease (N60.19) Active confirmed Problem Chronic obstructive pulmonary disease (91149276) Advanced COPD (J44.9) Active confirmed Problem Atrial fibrillation (18131888) Atrial fibrillation, unspecified type (I48.91) Active confirmed Problem Hypothyroidism (10838419) Hypothyroidism, unspecified type (E03.9) Active confirmed Problem Joint pain (82010000) Arthralgia , unspecified joint (M25.50) Active confirmed Problem Physical examination , complete (98913369) Adult general medical examination (Z00.00) Active confirmed Problem Mass of pelvic structure (finding) (50687102) Pelvic mass in female (R19.00) Active confirmed Problem Age-related cataract of right eye (77619834185436888) Combined form of age-related cataract, 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) Active confirmed Problem Heart failure (07201204) Acute exacerbation of CHF (congestive heart failure) (I50.9) Active confirmed Problem Essential hypertension (58412224) BP (high blood pressure) (I10) Active confirmed Problem Pure hypercholesterolemia (368844067) Pure hypercholesterolemia (E78.00) Active confirmed Problem Senile combined form cataract of left eye (disorder) (095990172489085) Combined form of age-related cataract, left eye (H25.812) Active confirmed Problem Secondary pulmonary hypertension (67439242) 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) Active confirmed Problem History of COVID-19 (583968067617206928) History of COVID-19 (Z86.16) Active confirmed 2019 Vital Signs Blood pressure diastolic 80 mm Hg 05/15/2025 Height 68 in 05/15/2025 Blood pressure systolic 140 mm Hg 05/15/2025 Weight 149.0 lbs 05/07/2025 BMI 22.65 kg/m2 05/07/2025 Encounters Encounter Location Date Provider Diagnosis [facility] [address] [place] [address] 12/05/2024 [facility] [address] [place] [address] 03/12/2025 [facility] [address] [facility]], [place] [address] 05/10/2025 Jose Alberto Robby [facility] [address] [facility] [place] [address] 05/13/2025 Jose Alberto Robby [facility] [address] [facility] [place] [address] 05/15/2025 Jose Alberto Zamudioy [facility] [address] [facility] [place] [address] 06/11/2024 Jose Alberto Zamudioy Multiple pulmonary nodules R91.8 [facility] [address] [facility] [place] [address] 08/24/2024 Jose Alberto Hoy Palpitation R00.2 [facility] [address] [facility] [address] 09/07/2024 Jose Alberto Hoy Palpitation R00.2 [facility] [address] [facility] [address] 11/19/2024 Jose Alberto Patel [facility] [address] [facility] [place] [address] 11/28/2024 Jose Alberto Zamudioy [facility] [address] [place] [place] [address] 07/31/2024 Jose Alberto Patel Encounter for Medica re annual wellness exam Z00.00 [facility] [address] [facility] [place] [address] 11/28/2024 Jose Alberto Patel Benign essential HTN I10 [facility] [address] [facility] [place] [address] 12/05/2024 Jose Alberto Zamudioy HTN (hypertension) I 10 [facility] [address] [facility] [place] [address] 05/15/2025 Jose Alberto Zamudioy [facility] [address] [facility] [place] [address] 11/19/2024 Jose Alberto Patel Paroxysmal atrial fibrillation I48.0 ; Benign essential HTN I10 and Hypothyroidism, unspecified type E03.9 [facility] [address] [facility] [address] 05/07/2025 Jose Alberto Patel Onychomycosis B35.1 ; Hidradenitis L73.2 ; Ovarian cyst N83.209 and Benign essential HTN I10 [facility] [address] [place] [address] 02/13/2025 Jose Alberto Patel Paroxysmal atrial fibrillation I48.0 ; Benign essential HTN I10 ; Acquired hypothyroidism E03.9 and Sebaceous cyst L72.3 Assessments Encounter Date Diagnosis (ICD Code) Assessment Notes Treatment Notes Treatment Clinical Notes Section Notes 05/07/2025 Onychomycosis (ICD-10 - B35.1) 05/07/2025 Hidradenitis (ICD-10 - L73.2) 06/11/2024 Multiple pulmonary nodules (ICD-10 - R91.8) 08/24/2024 Palpitation (ICD-10 - R00.2) 09/07/2024 Palpitation (ICD-10 - R00.2) 07/31/2024 Encounter for Medicare annual wellness exam (ICD-10 - Z00.00) 11/19/2024 Paroxysmal atrial fibrillation (ICD-10 - I48.0) 11/19/2024 Benign essential HTN (ICD-10 - I10) bp up = inc metoprolol to 2 at hs and 1 in am 11/28/2024 Benign essential HTN (ICD-10 - I10) 12/05/2024 HTN (hypertension) (ICD-10 - I10) 02/13/2025 Paroxysmal atrial fibrillation (ICD-10 - I48.0) no palpitations 02/13/2025 Benign essential HTN (ICD-10 - I10) stable at home 11/19/2024 Hypothyroidism, unspecified type (ICD-10 - E03.9) 05/07/2025 Ovarian cyst (ICD-10 - N83.209) 05/07/2025 Benign essential HTN (ICD-10 - I10) 02/13/2025 Acquired hypothyroidism (ICD-10 - E03.9) taking meds as instruccted 02/13/2025 Sebaceous cyst (ICD-10 - L72.3) acying uip againa - starting doxy - calling if not better Plan Of Treatment Pending Test Test Name Order Date XR Chest PA and Lateral (Routine CXR) * 12/01/2022 FECAL OCCULT BLOOD 03/30/2024 BMP - Basic Metabolic Panel 03/23/2024 CT CHEST WO CON 05/24/2023 CT CHEST WO CON 06/11/2024 US PELVIS 12/11/2024 US PELVIS AND TRANSVAG 05/07/2025 XR CHEST 2 V 03/05/2024 THYROID PANEL (T4/TSH/FREE T3) 3 Insurance Providers Payer Name Payer Address Payer Phone Subscriber Number Group Number Insured Name Patient Relationship to Insured Coverage Start Date Coverage End Date [place]IC[place] [address] [place] [address] [id number] Karen Gifford Self - patient is the insured 2 [employer] TOTAL CHOICE MEDICARE SUPPLEMENT [address] [address] [place] [address] [id number] Karen Gifford Self - patient is the insured 7 Medical (General) History Medical History History ICD Code Hypothyroidism, unspecified type E03.9 Overweight E66.3 Arthralgia, unspecified joint M25.50 Ankle edema R60.0 Palpitation R00.2 Bronchitis, chronic J42 Acute bronchitis J20.9 Rectal bleeding K62.5 Sebaceous cyst L72.3 Syncope and collapse R55 Puncture wound of left hand without fore ign body, initial encounter S61.432A Essential hypertension I10 Adult general medical examination Z00.00 Insomnia G47.00 Basal cell carcinoma C44.91 Cerumen impaction H61.20 Transient ischemic attack G45.9 Osteopenia M85.80 Furuncle of left lower extremity L02.426 Trigger finger, left middle finger M65.3 32 Combined form of age-related cataract, l eft eye H25.812 Combined form of age-related cataract, r ight eye H25.811 Degenerative joint disease M19.90 Eczema L30.9 Sudden visual loss, unspecified eye H53. 139 HTN (hypertension) I10 Fibrocystic breast disease N60.19 Pure hypercholesterolemia E78.00 Mitral regurgitation I34.0 Tricuspid regurgitation I07.1 Aortic insufficiency I35.1 Ventricular hypertrophy I51.7 Chronic diastolic congestive heart failu re I50.32 Multiple pulmonary nodules R91.8 LANEY (obstructive sleep apnea) G47.33 Paroxysmal atrial fibrillation I48.0 Right bundle branch block (RBBB) I45.10 Sinus node dysfunction I49.5 Tricuspid regurgitation I07.1 Mitral regurgitation I34.0 Bilateral carotid artery disease I77.9 Other secondary pulmonary hypertension I 27.29 History of COVID-19 Z86.16 severe biatrial enlargement Surgical History Surgery Date(Month/Year) Colonoscopy/EGD- Dr Jones 05/09/24 right knee arthroscopy tonsillectomy and adenoidectomy Gelsyn Injections- Ortho 07/23/2024 Vaginal Hysterectomy cardiac pacemeker Cholecystectomy Hospitalization History Reason Date(Month/Year) fluid over load 03/2024 [id number] 07/03/2020 SOB-[facility] 02/24/2023 SOB/COUGH-[facility] 02/21/2023
--- OUTSIDE RECORDS SUMMARY | 2025-05-15 10:02 | XMS_ITS | Clinical Summary ---
Author Organization [facility] Address [address] [place] [address] Care Team Providers Care Digital Strategy Manager Name Role Phone Billy Patel MD [...] 05/13/2021, 05/07/2020, Additional history exists Insurance MEDICARE [employer] Care Teams Digital Strategy Manager Relationship Specialty Start Date End Date Billy Patel MD PCP - General Family Medicine 12/19/23
--- OUTSIDE RECORDS SUMMARY | 2025-05-15 10:02 | XMS_ITS | Encounter Summary ---
Author Organization [facility] Address [address] [place] [address] Care Team Providers Care Spent Grain Dryer Name Role Phone Billy Patel MD Primary Care Provider [phone] Encounter Details Date Type Department Care Team (Late st Contact Info) Description 03/05/2024 Abstract [facility] [address] [place] [address] [place] [id number] Nika Madrid LPN Social History Tobacco Use [...] on filedocumented in this encounter Care Teams Spent Grain Dryer Relationship Specialty Start Date End Date Billy Patel MD PCP - General Family Medicine 12/19/23 documented as of this encounter
--- NOTE | 2025-05-15 10:03 | ECG_ITS ---
The [facility] Test Date: 2025-05-15 Pat Name: DEBORA GIFFORD Department: Room: - Gender: Female Manager Er: : 1935 Requested By: [id number] Order Number: [id number] Reading MD: Xander Brian Measurements Intervals [place] Rate: 80 P: LA: QRS: 92 QRSD: 157 T: -86 QT: 424 QTc: 489 Interpretive Statements atrial fibrillation with ELECTRONIC VENTRICULAR PACEMAKER ABNORMAL RHYTHM ECG Compared to ECG 03/07/2024 10:40:26 Right bundle-branch block no longer present and ventricular pacing now present Electronically Signed On 05-15-2025 13:25:11 EDT by Xander Brian
--- NOTE | 2025-05-15 10:20 | XR_ITS ---
The [address] [address] Patient Name: DBEORA GIFFORD MRN: [id number] date: 1935 Sex: F Assigned Patient Location: LAB Current Patient Location: LAB Accession/Order Number: [id number] Exam Date: 05/15/2025 10:28 Report Date: 05/15/2025 11:30 At the request of: NON-STAFF PHYSICIAN MD Procedure: XR chest 2V PA AND LATERAL CHEST: CLINICAL HISTORY: Contusion Of Right Thumb, Pre Surgical Clearance COMPARISON: 03/07/2024 chest x-ray and CT A left-sided pacemaker is again visualized. There is no focal parenchymal consolidation, effusion or pneumothorax. The cardiac, hilar and mediastinal silhouettes are within normal limits. There is no vascular congestion. The visualized bony thorax is intact. Degenerative changes and dextroscoliotic curvature are seen at the spine. XR/XR chest 2V IMPRESSION: NO ACUTE CARDIOPULMONARY ABNORMALITY. Impression dictated by: Marii Bush M.D. 05/15/2025 11:30 AM Dictation Location: [place] [address] Electronically authenticated by: [id number] Y Date: 05/15/2025 11:30
[2025-05-15 10:57] LABS: Hematocrit 46.2 % (36.0-48.0); Hemoglobin 15.5 g/dL (12.0-16.0); Immature Granulocytes Abs Auto 0.03 10^3/uL (0.00-0.03); Immature Granulocytes Pct Auto 0.4 % (0.0-0.5); Lymphocytes Absolute Auto 1.7 10^3/uL (1.2-3.8); Mean Corpuscular HGB Conc 33.5 g/dL (29.9-35.2); Mean Corpuscular Hemoglobin 31.3 pg (26.7-34.0); Mean Corpuscular Volume 93.1 fL (81.0-99.0); Platelet Count 150 10^3/uL (150-450); Red Blood Count 4.96 10^6/uL (4.20-5.40); White Blood Count 6.9 10^3/uL (4.0-11.0)
[2025-05-15 11:17] LABS: Anion Gap 11.9; Blood Urea Nitrogen 21.0 mg/dL (7.0-18.0); Calcium 9.2 mg/dL (8.5-10.1); Carbon Dioxide 29.4 mmol/L (21.0-32.0); Chloride 104 mmol/L (98-107); Estimated GFR (African America >60 (>=60 mL/min/1.73m^2); Estimated GFR (Non-African Ame >60 (>=60 mL/min/1.73m^2); Glucose 109 mg/dL (74-106); Potassium 3.3 mmol/L (3.5-5.1); Sodium 142 mmol/L (136-145)
--- OUTSIDE RECORDS SUMMARY | 2025-05-17 15:30 | XMS_ITS ---
Author Name Auto Generated Organization OHIP Support Name Relationship Address Phone BALTA, CARLO Next of Kin Unknown + HUDACEK, NAKUL Next of Kin Unknown [phone] SALVADORKRISTOFER WEBB Next of Kin Unknown [phone] HOPBRIAN, CARLO Next of Kin Unknown + HUDACEK, NAKUL Next of Kin Unknown [phone] SALVADORKRISTOFER WEBB Next of Kin Unknown [phone] BALTA, CARLO Next of Kin Unknown + HUDACEK, NAKUL Next of Kin Unknown [phone] SALVADORKRISTOFER WEBB Next of Kin Unknown [phone] BALTA, CARLO Next of Kin Unknown + HUDACEK, NAKUL Next of Kin Unknown [phone] SALVADORKRISTOFER WEBB Next of Kin Unknown [phone] HOPPLE, CARLO Next of Kin Unknown + HUDACEK, NAKUL Next of Kin Unknown [phone] SALVADORKRISTOFER WEBB Next of Kin Unknown [phone] HOPPLE, CARLO Next of Kin Unknown + HUDACEK, NAKUL Next of Kin Unknown [phone] SALVADORMANDY WEBBAN Next of Kin Unknown [phone] HOPPLE, CARLO Next of Kin Unknown + HUDACEK, NAKUL Next of Kin Unknown [phone] KRISTOFER FRANCO Next of Kin Unknown [phone] KAREN GIFFORD Next of Kin Unknown Unavailable HOPBRIAN, CARLO Next of Kin Unknown + HUDNAKUL JOHNSON Next of Kin Unknown [phone] KRISTOFER FRANCO Next of Kin Unknown [phone] KAREN GIFFORD Next of Kin Unknown Unavailable BALTA, CARLO Next of Kin Unknown + HUDVALERIA JOHNSONNA Next of Kin Unknown [phone] KRISTOFER FRANCO Next of Kin Unknown [phone] BALTA, CARLO Next of Kin Unknown + HUDVALERIA JOHNSONNA Next of Kin Unknown [phone] KRISTOFER FRANCO Next of Kin Unknown [phone] BALTA, CARLO Next of Kin Unknown + HUDALEX, NAKUL Next of Kin Unknown [phone] KRISTOFER FRANCO Next of Kin Unknown [phone] BALTA, CARLO Next of Kin Unknown + HUDNAKUL JOHNSON Next of Kin Unknown [phone] KRISTOFER FRANCO Next of Kin Unknown [phone] Care Team Providers Care Grading Machine Feeder Name Role Phone YOAV HOLLINGSWORTH Attending Unavailable YOAV HOLLINGSWORTH Referring Unavailable CHILANGO YOUSIF Attending Unavailable YOAV HOLLINGSWORTH Referring Unavailable YOAV HOLLINGSWORTH Referring Unavailable SANAULLAH, ADY Referring Unavailable STEFANO COBOS Referring Unavailable SANAULLAH, ADY Referring Unavailable JAVIER SAL Attending Unavailable JENNIFER COTTRELL Referring Unavailable MITCHELL TAYLOR Attending Unavailable YOAV HOLLINGSWORTH Referring Unavailable ABIMBOLA CHACON Attending Unavailable VINCENZO PATEL Primary Care Unavailable SELF, SELF Referring Unavailable ABIMBOLA CHACON Attending Unavailable VINCENZO PATEL Primary Care Unavailable SELF, SELF Referring Unavailable Cinthia CORDON, Bruce Summers Attending Unavailable PROBLEMS DATE TYPE CONDITION / CODE ATTENDING STATUS [facility] 01/30/2025 Admitting Diagnosis Lung Nodule / 519() JAVIER SAL Active [facility] 01/30/2025 Admitting Diagnosis Pleural Effusion / UNK(Unknown) JAVIER SAL Active [facility] 03/09/2023 Admitting Diagnosis Other nonspecific abnormal finding of lung field / R91.8(ICD-10) NA Active [facility] 12/07/2024 Admitting Diagnosis Encounter for adjustment and management of other part of cardiac pacemaker / Z45.018(ICD-10) NA Active [facility] 12/04/2024 Admitting Diagnosis Encounter for adjustment and management of automatic implantable cardiac defibrillator / Z45.02(ICD-10) NA Active [facility] 11/21/2024 Admitting diagnosis Primary open-angle glaucoma, bilateral, indeterminate stage / H40.1134(ICD-10) ABIMBOLA CHACON Active [facility] 11/21/2024 Admitting diagnosis Dry eye syndrome of bilateral lacrimal glands / H04.123(ICD-10) ABIMBOLA CHACON Active [facility] 03/09/2023 Admitting Diagnosis Acute on chronic diastolic (congestive) heart failure / I50.33(ICD-10) YOAV HOLLINGSWORTH Active [facility] 05/14/2022 Admitting Diagnosis Paroxysmal atrial fibrillation / I48.0(ICD-10) YOAV HOLLINGSWORTH Active [facility] 04/06/2024 Admitting Diagnosis Pleural effusion, not elsewhere classified / J90(ICD-10) NA [facility] 05/31/2024 Admitting Diagnosis Other forms of dyspnea / R06.09(ICD-10) NA [facility] PROCEDURES No Procedure Records Found RESULTS 36 Observed: 05/15/2025 11:44 AM Status: COMPLETED Source: [facility] Alexander Manzano. You saw this patie nt in December 2024, and she's due back next month for 6 mo follow up. [facility] is requesting STAT clearance for thumb nail debridement and laceration repair under local and MAC anesthesia. She is on Xarelto 20mg daily according to last office note. She had CXR, labs, and EKG this morning at [facility]. Results are scanned into remedial teacher for your review. Please advise. Thanks so much! PROGRESS NOTE-NURSE Observed: 05/15/2025 11:39 AM Status: F Source: [facility] LEFT MESSAGE WITH PATIENT. Christal Villavicencio WILL CALL BACK AROUND 3 PM FOR PSS INTERVIEW. Electronically signed by Daija Dhillon 05/15/25 11:40 EDT 36 Observed: 03/19/2025 10:41 AM Status: COMPLETED Source: [facility] Chilango Yousif, DENISE Burrows MA Please let her know her ECHO looks good. She has some mild regurgitation or leaky mitral and aortic valves. Nothing to do but monitor, follow-up ECHO in 1 year. It showed normal pumping function. No evidence of an effusion or fluid collected around the heart. Advised patient of Natacha Berry findings. Patient verbalized understanding and agreed with plan of care. PROGRESS Observed: 01/30/2025 2:30 PM Status: COMPLETED Source: [facility] Attestation signed by Juan Casillas MD at 02/04/2025 12:57 AM I reviewed the salient portions of the patient history. I have seen and examined the patient with the resident/fellow Dr. Sal on 01/30. I repeated the jessica components of the exam. Agree with the noted assessment and plan. Juan Casillas MD [facility] Pulmonary and Critical Care Medicine Pulmonary Clinic Visit Note Patient: Karen F Hopple Age: 89 y.o. : 1935 Account No.: [id number] Follow up visit Last visit 03/2024 HPI Karen Gifford is a 89 y.o. female who has past medical history of heart failure with preserved ejection fraction, sick sinus syndrome status post pacemaker, hospitalized in February 2024 for acute hypoxic respiratory failure, right-sided pleural effusion status post thoracentesis 800 cc of fluid was removed, fluid analysis consistent with exudative, lymphocytic predominant. Chief Pulmonary problem: Dyspnea on exertion Interval Hx: Patient comes to the clinic today for follow-up, she denies any worsening shortness of breath, no cough or sputum production, no fever or chills, she continues to have multiple joint pain, no swelling, denies any skin rash or mouth ulcers. Most recent PFT:05/[address] scan:05/2024 Lung nodules: Small cluster of reticular nodular opacities in the middle lobe measuring up to 4 mm (4/201). Noncalcified 7 mm lung nodule right middle lobe (4/216). Noncalcified 7 mm lung nodule perihilar right middle lobe (4/201). Noncalcified 3 mm right middle lobe (4/266). Noncalcified 5 mm right lower lobe (4/217). There are a few scattered 2 to 3 mm lung nodules in the right lower lobe, left upper, left lower lobe. High-resolution: Mild perihilar bronchiectasis. Clustered cystic airspaces right lower lobe,, bandlike atelectasis adjacent to large thoracic osteophytes extending from the mid to lower right anterior thoracic spine. Otherwise, no additional regions of subpleural cystic changes. No significant groundglass opacities, evidence for air trapping or septal thickening. Bandlike atelectasis in the left lung base. IMPRESSION: Impression: Osteophyte induced adjacent pulmonary atelectasis and fibrosis right lower lobe. Past Medical History: Diagnosis Date A-fib (CMS/HCC) Abnormal ECG Cancer (CMS/HCC) CVA (cerebral vascular accident) (CMS/HCC) GERD (gastroesophageal reflux disease) Hyperlipidemia Hypertension LANEY (obstructive sleep apnea) Osteoarthritis Past Surgical History: Procedure Laterality Date APPENDECTOMY CARPAL TUNNEL RELEASE CHOLECYSTECTOMY HYSTERECTOMY INSERT / REPLACE / REMOVE PACEMAKER Allergies: Dorzolamide-timolol, Farxiga [dapagliflozin], Isosorbide, Lisinopril, Morphine, Pantoprazole, Procardia [nifedipine], Sulfa (sulfonamide antibiotics), and Vasotec [enalapril maleate] Prior to Admission medications Medication Sig Start Date End Date Taking? Authorizing Provider bumetanide (Bumex) 1 mg tablet Take 1 tablet by mouth in the morning. Yes Historical Provider, colchicine 0.6 mg tablet Take 1 tablet (0.6 mg) by mouth two times daily for 720 doses. 05/16/24 05/11/25 Yes Chilango Yousif NP ferrous sulfate 325 (65 Fe) MG tablet 1 tablet Orally Twice Daily for 30 days 03/28/24 Yes Historical Provider, latanoprost (Xalatan) 0.005 % ophthalmic solution Administer 1 drop into both eyes at bedtime. Yes Historical Provider, liothyronine (Cytomel) 5 mcg tablet Take 2 tablets by mouth in the morning. Yes Historical Provider, magnesium 250 mg tablet Take 250 mg by mouth. Yes Historical Provider, rivaroxaban (Xarelto) 20 mg tablet Take 1 tablet (20 mg) by mouth daily with evening meal. Take with food. 04/13/24 Yes Chilango Yousif NP timolol (Betimol) 0.5 % ophthalmic solution Administer 1 drop into both eyes two times daily. Yes Historical Provider, atorvastatin (Lipitor) 10 mg tablet Take 1 tablet (10 mg) by mouth at bedtime. 03/15/24 05/14/24 Edward Ford MD dilTIAZem CD (Cardizem CD) 240 mg 24 hr capsule Take 1 capsule (240 mg) by mouth in the morning. Do not start before March 16, 2024. 03/16/24 05/15/24 Edward Ford MD metoprolol tartrate (Lopressor) 50 mg tablet Take 1 tablet (50 mg) by mouth three times daily. 03/15/24 05/14/24 Edward Ford MD Social history: reports that she has never smoked. She does not have any smokeless tobacco history on file. She reports that she does not drink alcohol and does not use drugs. Family History Problem Relation Name Age of Onset Lung cancer Mother's Sister Review of Systems: CONSTITUTIONAL: no weight loss, no fever, no chills HEENT: no vision changes, no ear pain, no runny nose, no sore throat RESPIRATORY: no dyspnea, no cough, no wheeze, no sputum production CV: no chest pain, no palpitations, no syncope GI: no abdominal pain, no nausea, no vomiting, no diarrhea. MSK: no myalgia, no joint pain. SKIN: no rash, no pruritus. NEUROLOGICAL: no weakness, no paresthesias PSYCHIATRIC: No mood changes. No anxiety, no depression. Physical examination: Vitals: BP 128/74 (BP Location: Left arm, Patient Position: Sitting, BP Cuff Size: Adult) Pulse 79 Wt 67.1 kg (148 lb) SpO2 97% Comment: room air at rest BMI 23.18 kg/m??? GENERAL: Alert and oriented x 3. No acute distress. HEENT: EOMI, no scleral icterus. Moist mucous membranes. NECK: trachea midline, no JVD. Supple. LUNGS: Clear to auscultation bilaterally. No wheezes, rales, or rhonchi CARDIOVASCULAR: Regular rate and rhythm. Normal S1 and S2. No murmur, rubs, or gallops. BACK: normal curvature ABDOMEN: Soft, non-tender, non-distended. Normal bowel sounds. No palpable masses. EXTREMITIES: No cyanosis, no edema, no calf tenderness SKIN: Warm and dry. No rashes or lesions NEUROLOGIC: Normal gait. No extremity weakness. No slurred speech PSYCHIATRIC: Cooperative. Appropriate mood and affect. Labs Results: Lab Results Component Value Date HGB 8.2 (L) 03/15/2024 HGB 8.2 (L) 03/14/2024 HGB 9.1 (L) 03/13/2024 HCT 28.5 (L) 03/15/2024 HCT 28.4 (L) 03/14/2024 HCT 31.2 (L) 03/13/2024 WBC 9.45 03/15/2024 WBC 9.81 03/14/2024 WBC 9.31 03/13/2024 BUN 12 03/15/2024 BUN 16 03/14/2024 BUN 18 03/13/2024 CREATININE 0.67 03/15/2024 CREATININE 0.67 03/14/2024 CREATININE 0.73 03/13/2024 NA 137 03/15/2024 NA 133 (L) 03/14/2024 NA 133 (L) 03/13/2024 K 3.4 (L) 03/15/2024 K 3.3 (L) 03/14/2024 K 3.1 (L) 03/13/2024 CO2 29 03/15/2024 CO2 29 03/14/2024 CO2 31 03/13/2024 Radiology: No Chest X-ray results found for the past [address] chest high resolution wo contrast Result Date: 05/31/2024 Impression: Osteophyte induced adjacent pulmonary atelectasis and fibrosis right lower lobe. Mild perihilar bronchiectasis. Multiple lung nodules measuring up to 7 mm. Follow-up CT in 3-6 months recommended. Electronically signed: Eric Singh. CT abdomen pelvis w IV contrast Result [...] in etiology. Electronically signed: Avtar Gil MD. Assessment and Plan: #Multiple pulmonary nodules #Pleural effusion # Multiple pulmonary nodules Index CT scan: 03/2024 Nodule size (mm): 7 Nodule location: upper Nodule type: Subsolid Functional status (ECOG): (0) Fully active, able to carry on all predisease performance without restriction Smoking status: Never History of cancer: No PET scan: NA Burdick nodule score: 10. Nodify test: No CT chest repeat 01/30/2025 grossly with no pleural effusion Awaiting final read. # Right-sided pleural effusion -S/p thoracentesis, lymphocytic predominant, culture and cytology were negative -No evidence of effusion on CT scan. # Bronchiectasis, mild -Central, with focal bronchiectasis on the lower right base. - Patient was instructed to use incentive spirometer. Return to the clinic for 12 month. Javier Sal MD Pulmonary & Critical Care Medicine [facility] 01/30/2025 OFFICE VISIT Observed: 01/30/2025 2:30 PM Status: COMPLETED Source: [facility] [id number] Karen Gifford F Date Provider Department Center 01/30/2025 [id number] SAL [facility] PULM Comprehensiv Family History Problem Relation Age of Onset Lung cancer Mother's Sister Family Status - Relation Status Age at Mother Father Brother Mother's Sister Level of Service:28121 [place] OFFICE/OUTPATIENT ESTABLISHED LOW MDM 20 MIN (GC) Reason for Visit and Comments: Lung Nodule [519] Pleural Effusion [Other] CT CHEST WO IV CONTRAST Observed: 2024 10:16 AM Status: UNK Source: [facility] CT CHEST WO IV CONTRAST 01/30 11:04 AM CLINICAL INDICATIONS:Bilateral pulmonary nodules follow-up [...] months is advised. Electronically signed: Donato Bach. 8 PROGRESS Observed: 12/13/2024 2:00 PM Status: COMPLETED Source: [facility] Cardiovascular Medicine [facility] SUBJECTIVE Chief Complaint Patient presents with Atrial Fibrillation Hypertension Karen Gifford is a 89 y.o. female here for follow-up after her recent admission to [facility]. HPI PMHx: persistent a.fib, sinus node dysfunction s/p PPM 2021, GERD, HTN, LANEY, HLD, CPAP, hx COVID 06/2020, HFpEF, pericardial effusion 12/13/2024 Patient is here for a 6 month follow up. Patient states she went to Dr. Patel's office 2 weeks ago. Patient states he changed her Metoprolol to 100 mg due to pounding in her heart from activity. Patient denies SOB with heart pounding, chest pain, dizziness or leg swelling. Patient states when she had her pacemaker checked a week ago the pacemaker rep changed her setting which has helped with the heart pounding. Her BP was running high in the 190/104, it is now better with the increase in metoprolol. Denies c/o CP, dyspnea, orthopnea, PND, LE edema, dizziness/LH, syncope. She just got back a few weeks ago from [place], they went to [place] for a couple of months. Patient Active Problem List Diagnosis Paroxysmal atrial fibrillation (CMS/HCC) Sinus pause S/P placement of cardiac pacemaker Gastroesophageal reflux disease Hypertensive disorder Obstructive sleep apnea syndrome Osteoarthritis Multiple pulmonary nodules Acute on chronic diastolic (congestive) heart failure (CMS/HCC) Pericardial effusion Heart failure with preserved ejection fraction (CMS/HCC) History of colon polyps Presence of cardiac pacemaker Pleural effusion Basal cell carcinoma BRBPR (bright red blood per rectum) Cataract Cyst of right ovary Dyslipidemia Dyspnea Elevated cancer antigen 125 (CA 125) Epidermal inclusion cyst Fibrocystic breast History of MN (myocardial infarction) Hypothyroidism Iron deficiency anemia Osteopenia Positive fecal occult blood test Sebaceous cyst Syncope TIA on medication Aortic insufficiency Cardiomegaly Past Medical History: Diagnosis Date A-fib (CMS/HCC) Abnormal ECG Cancer (CMS/HCC) CVA (cerebral vascular accident) (CMS/HCC) GERD (gastroesophageal reflux disease) Hyperlipidemia Hypertension LANEY (obstructive sleep apnea) Osteoarthritis Family History Problem Relation Name Age of Onset Lung cancer Mother's Sister Social History Tobacco Use Smoking status: Never Vaping Use Vaping status: Never Used Substance Use Topics Alcohol use: Never Drug use: Never Allergies Allergen Reactions Dorzolamide-Timolol Unknown Itchy eyes Farxiga [Dapagliflozin] Other Recurrent UTI Isosorbide Other Dry eyes Lisinopril Cough Morphine Other vomit Pantoprazole Unknown Pounding heart Procardia [Nifedipine] Sulfa (Sulfonamide Antibiotics) Unknown Vasotec [Enalapril Maleate] Review of Systems Constitutional: Negative for chills, decreased appetite, fever, malaise/fatigue and weight gain. Cardiovascular: Positive for palpitations. Negative for chest pain, dyspnea on exertion, irregular heartbeat, leg swelling, near-syncope, orthopnea, paroxysmal nocturnal dyspnea and syncope. Hematologic/Lymphatic: Negative for bleeding problem. Does not bruise/bleed easily. OBJECTIVE Visit Vitals BP 120/71 (BP Location: Left arm, Patient Position: Sitting) Pulse 70 Ht 1.702 m (5' 7 ) Wt 65.8 kg (145 lb) SpO2 98% BMI 22.71 kg/m??? OB Status Postmenopausal Smoking Status Never BSA 1.76 m??? Medications: Current Outpatient Medications: atorvastatin (Lipitor) 10 mg tablet, Take 1 tablet (10 mg) by mouth at bedtime., Disp: 90 tablet, Rfl: 3 bumetanide (Bumex) 1 mg tablet, Take 1 tablet (1 mg) by mouth in the morning., Disp: 90 tablet, Rfl: 3 dilTIAZem CD (Cardizem CD) 240 mg 24 hr capsule, Take 1 capsule (240 mg) by mouth once daily as directed., Disp: 90 capsule, Rfl: 3 latanoprost (Xalatan) 0.005 % ophthalmic solution, Administer 1 drop into both eyes at bedtime., Disp: , Rfl: liothyronine (Cytomel) 5 mcg tablet, Take 2 tablets by mouth in the morning., Disp: , Rfl: magnesium 250 mg tablet, Take 250 mg by mouth., Disp: , Rfl: metoprolol tartrate (Lopressor) 100 mg tablet, Take 1 tablet (100 mg) by mouth two times daily., Disp: , Rfl: potassium chloride CR (Klor-Con M10) 10 mEq ER tablet, Take 10 mEq by mouth in the morning. Do not crush or chew., Disp: , Rfl: rivaroxaban (Xarelto) 20 mg tablet, Take 1 tablet (20 mg) by mouth daily with evening meal., Disp: 90 tablet, Rfl: 3 timolol (Betimol) 0.5 % ophthalmic solution, Administer 1 drop into both eyes two times daily., Disp: , Rfl: ferrous sulfate 325 (65 Fe) MG tablet, 1 tablet Orally Twice Daily for 30 days, Disp: , Rfl: Physical Exam Vitals reviewed. Constitutional: Appearance: Normal appearance. She is normal weight. HENT: Head: Normocephalic and atraumatic. Right Ear: External ear normal. Left Ear: External ear normal. Eyes: Extraocular Movements: Extraocular movements intact. Conjunctiva/sclera: Conjunctivae normal. Pupils: Pupils are equal, round, and reactive to light. Neck: Vascular: No carotid bruit. Cardiovascular: Rate and Rhythm: Normal rate. Rhythm irregular. Pulses: Normal pulses. Heart sounds: Normal heart [...] Thought content normal. Judgment: Judgment normal. Labs: No results displayed because visit has over 200 results. Lab Results Component Value Date BNP 889 (H) 03/09/2024 03/16/23 Renal function normal K+ normal 03/09/23 CBC normal Liver function normal Testing/Procedures: Device check 12/04/2024: a.fib underlying rhythm. Normal functioning device, no events, max CLS rate decreased to 100 bpm, RV paced 66% Limited ECHO 03/14/2024 Left Ventricle: The left ventricle appears normal in size. Global left ventricular systolic function is normal. The EF is 65 % visually. Left ventricular wall thickness is mildly increased. No regional wall motion abnormality. Right Ventricle: The right ventricle appears normal in size. Right ventricular systolic function appears reduced. Tricuspid Valve: Moderate tricuspid regurgitation. Pericardium: There is a moderate posterior effusion measuring 2.13 cm with organized thrombus and pericardial thickening. Features are not consistent with tamponade physiology. Cardiac catheterization 03/14/2024 PROCEDURE PHYSICIAN: Xander Brian MD Clinical Presentation: 88 y.o. Female with a pericardial effusion and suspected pericardial tamponade by echocardiography. Final Impression: 1) The RV and LV end diastolic pressures were not equalized, however, the right atrial and right ventricular end diastolic pressure were elevated and the right atrial and pericardial pressures were equalized at 7 mmHg consistent with early tamponade physiology. 2) Successful drainage of a serosanguinous pericardial effusion. Recommendation: 1) Retain pericardial drain until drainage ceases. 2) Prophylactic antibiotics while pericardial drain in place 02/22/23 TTE ASSESSMENT/PLAN: Diagnosis Plan 1. Longstanding persistent atrial fibrillation (CMS/HCC) metoprolol tartrate (Lopressor) 100 mg tablet Transthoracic echo (TTE) complete 2. Chronic diastolic heart failure (CMS/HCC) Transthoracic echo (TTE) complete 3. Sick sinus syndrome (CMS/HCC) 4. S/P placement of cardiac pacemaker 5. Primary hypertension 6. Nonrheumatic tricuspid valve regurgitation 7. Pericardial effusion 8. Mixed hyperlipidemia #Persistent a.fib -Recent issues with pounding heart beat. This improved with increase in metoprolol along with adjustments of her CLS settings on her PM. -Continue lopressor 100mg BID, diltiazem 240mg daily. -[id number] - 7 (female, age+2, HTN, HF, hx TIA +2). She denies bleeding issues. Continue Xarelto 20mg daily. -Follow-up ECHO ordered #Pericardial Effusion with Tamponade physiology s/p Pericardiocentesis -Resolved -It has been greater than 3 months since her effusion, she may stop colchicine -Routine follow-up ECHO ordered #HF with preserved EF, compensated, NYHA I-II -Continue bumex 1mg daily -Follow-up ECHO ordered #Tricuspid valve regurg -Asymptomatic -Follow-up ECHO ordered #Sinus node dysfunction s/p PPM Biotronik -RV paced 66% -Continue q6 month device checks #Bilateral Carotid Artery Stenosis, L>R Asymptomatic #Essential THN -Controlled -Continue lopressor, diltiazem #HLD -On atorvastatin 10mg daily Follow up in about 6 months (around 06/15/2025). Chilango Yousif CNP [facility] Cardiovascular Medicine PROGRESS Observed: 12/13/2024 2:00 PM Status: COMPLETED Source: [facility] Patient is here for a 6 anderson h follow up. Patient states she went to Dr. Patel's office 2 weeks ago. Patient states he changed her Metoprolol to 100 mg due to pounding in her heart from activity and her blood pressure was high in the am 190/104. Patient denies SOB with heart pounding, chest pain, dizziness or leg swelling. Patient states when she had her pacemaker checked a week ago the pacemaker rep changed her setting which has helped with the heart pounding. Review of Systems Cardiovascular: Positive for palpitations (heart pounding). Musculoskeletal: Positive for arthritis. OFFICE VISIT Observed: 12/13/2024 2:00 PM Status: COMPLETED Source: [facility] [id number] Karen Gifford F Date Provider Department Center 12/13/2024 CHILANGO ZAMORA Family History Problem Relation Age of Onset Lung cancer Mother's Sister Family Status - Relation Status Age at Mother Father Brother Mother's Sister Level of Service:56307 [place] OFFICE/OUTPATIENT ESTABLISHED MOD MDM 30 MIN Reason for Visit and Comments: Atrial Fibrillation [80] Hypertension [882412] HVF 24-2 STANDARD - OU Observed: 025 4:39 PM Status: F Source: [facility] See note PROGRESS Observed: 06/26/2024 1:30 PM Status: COMPLETED Source: [facility] Electrophysiology Consult Note Reason for visit: Hospital follow-up s/p PPM for SND following DCCV. 06/26/24 She was recently admitted with pericardial effusion with tamponade physiology and underwent the drain. Subsequently she also had bilateral pleural effusion and had thoracocentesis in March 14 where an approximately 2 L of fluid was removed which was exudative in nature. According to notes she was last seen by Bony Moore in March 2024 and at that time was seen to be in A-fib device check that was performed on 05/16/2024 reveals that the device has been programmed VVI at the lower rate limit of 60 beats a minute, she is paced 67 4% of the time and the fastest ventricular rate was noted to be less than 130 beats a minute. She feels like she is back to her baseline and not keen on pursuing another cardioversion. Patient here for 3 mo follow up and limited echo done in Mar 2024 per Natacha Yousif CNP. C/o hair loss recently and wonders if it could be a side effect of one of her medications. Denies chest pain, SOB, lightheadedness/syncope, and bleeding on Xarelto. 05/06/23 patient was recently seen by J Luis CHICAS recent hospitalization for heart failure. she [...] volume overload HPI: Karen Gifford is a 89 y.o. year with PMH of hypertension, hyperlipidemia, [...] fib with varying intervals Echocardiogram performed at [facility] on 12/25/2021 showed EF of 55 [...] HTN, LANEY, HLD FMHx: mother - hx [place] ETOH: denies Tobacco: denies Illicit drugs: denies Diet: occasional caffeine intake ------- PMH: Past Medical History: Diagnosis Date A-fib (CMS/HCC) Abnormal ECG Cancer ([facility]/HCC) CVA (cerebral vascular accident) (CMS/HCC) GERD (gastroesophageal reflux disease) Hyperlipidemia Hypertension LANEY (obstructive sleep apnea) Osteoarthritis PSH: Past Surgical History: Procedure Laterality Date APPENDECTOMY CARPAL TUNNEL RELEASE CHOLECYSTECTOMY HYSTERECTOMY INSERT / REPLACE / REMOVE PACEMAKER SH: Social Determinants of Health Tobacco Use: Unknown (06/26/2024) Patient History Smoking Tobacco Use: Never Smokeless Tobacco Use: Unknown Passive Exposure: Not on file Alcohol Use: Not on file Financial Resource Strain: Low Risk (03/08/2024) Overall [...] on file Sexually Abused: Not on file Depression: Not at risk (05/31/2024) PHQ-2 PHQ-2 Score: 0 Housing Stability: Low Risk (03/08/2024) Housing Stability Vital Sign Unable to Pay for Housing in the Last Year: Not on file Number of Places Lived in the Last Year: Not on file Unstable Housing in the Last Year: No Utilities: Not At Risk (03/08/2024) [facility] Utilities Threatened with loss of utilities: No Allergies: Allergies Allergen Reactions Farxiga [Dapagliflozin] Other Recurrent UTI Isosorbide Other Dry eyes Lisinopril Cough Morphine Other vomit Procardia [Nifedipine] Vasotec [Enalapril Maleate] Weight: 65.8kg Visit Vitals BP 128/78 (BP Location: Left arm, Patient Position: Sitting) Pulse 76 Ht 1.702 m (5' 7 ) Wt 65.8 kg (145 lb) SpO2 98% BMI 22.71 kg/m??? OB Status Postmenopausal Smoking Status Never BSA 1.76 m??? Meds: Current Outpatient Medications on File Prior to Visit Medication Sig Dispense Refill atorvastatin (Lipitor) 10 mg tablet Take 1 tablet (10 mg) by mouth at bedtime. 30 tablet 1 bumetanide (Bumex) 1 mg tablet Take 1 tablet by mouth in the morning. colchicine 0.6 mg tablet Take 1 tablet (0.6 mg) by mouth two times daily for 720 doses. 180 tablet 3 dilTIAZem CD (Cardizem CD) 240 mg 24 hr capsule Take 1 capsule (240 mg) by mouth in the morning. Do not start before March 16, 2024. 30 capsule 1 ferrous sulfate 325 (65 Fe) MG tablet 1 tablet Orally Twice Daily for 30 days latanoprost (Xalatan) 0.005 % ophthalmic solution Administer 1 drop into both eyes at bedtime. liothyronine (Cytomel) 5 mcg tablet Take 2 tablets by mouth in the morning. magnesium 250 mg tablet Take 250 mg by mouth. metoprolol tartrate (Lopressor) 50 mg tablet Take 1 tablet (50 mg) by mouth three times daily. 120 tablet 3 rivaroxaban (Xarelto) 20 mg tablet Take 1 tablet (20 mg) by mouth daily with evening meal. Take with food. 90 tablet 3 timolol (Betimol) 0.5 % ophthalmic solution Administer 1 drop into both eyes two times daily. No current facility-administered medications on file prior to visit. ROS: Review of Systems HENT: Positive for hearing loss. Cardiovascular: Positive for palpitations ( sometimes ). Skin: Positive for unusual hair distribution. All other systems reviewed and are negative. Physical Exam: Constitutional General Appearance: well-nourished, well-developed, appears stated age Level of Distress: comfortable Psychiatric Mental Status: alert, normal affect Orientation: oriented to time, place, and person Insight: good judgement Eyes Lids and Conjunctivae: non-injected, no xanthelasma ENMT Ears: no lesions on external ear Nose: no lesions on external nose Oropharynx: no cyanosis, no pallor Neck Neck: supple, trachea midline Carotid Arteries: bilateral normal upstroke, no bruits Jugular Veins: normal jugular venous pressure Thyroid: not enlarged Lungs Respiratory Effort: unlabored Chest Exam: normal curvature, no thoracic deformity Auscultation: clear, no wheezing, no rales, no rhonchi Cardiovascular Rate And Rhythm: irregular Heart Sounds: normal S1, normal s2, no gallop Systolic Murmur: not heard Diastolic Murmur: not heard Extremities: no cyanosis, no edema, no peripheral signs of emboli Peripheral Pulses Radial Pulse: normal Abdomen Inspection and Palpation: soft, non distended, no bruit, non tender Musculoskeletal Inspection: no joint swelling Neurologic Gait: normal gait Skin Inspection and Palpation: warm and dry Nails: no clubbing Labs: @LABRESULTS@ Lab Results Component Value Date TRIGLYCERIDES 03/14/2024 TSH 1.31 03/09/2024 BNP 889 (H) 03/09/2024 BNP 1,085 (H) 03/08/2024 EKG: Encounter Date: 03/08/24 ECG 12 lead Result Value Ventricular Rate 103 QRS DURATION 146 QT Interval 394 QTC CALCULATION(BAZETT) 516 R-[place] 62 T Wave [place] -23 Impression Atrial fibrillation with rapid ventricular response with frequent Premature ventricular complexes Right bundle branch block Abnormal ECG When compared with ECG of 14-MAY-2022 10:29, Atrial fibrillation has replaced Atrial-paced rhythm Vent. rate has increased BY 42 BPM Confirmed by Harshad FORMAN, L.S. (2) on 03/09/2024 2:01:00 PM Echo: 02/22/23 TTE Stress test: Coronary angiogram: @CATH@ Diagnostic Imaging: No images are attached to the encounter. Assessment and Plan: -Persistent atrial fibrillation: Has had breakthrough episodes but no RVR, If she has RVR, then will consider AVN ablation. -History of pericardial effusion and pleural effusion: Presumed to be due to viral etiology - Carotid artery stenosis: CTA neck 06/2020: carotids and vertebral arteries show no significant stenosis or dissection Carotid US 2017 1. CLAY - 0-49% stenosis 2. LICA - 62% area reduction - HLD: Continue simvastatin - Obstructive sleep apnea syndrome: She has not been compliant with wearing her CPAP, c/o improper fit. Discussed correlation between LANEY and a.fib. She states understanding and will think about going back to sleep medicine with nasal prongs - Essential hypertension: Controlled, continue atenolol, diltiazem, hydralazine, HCTZ, and olmesartan -HFpEF: CT gdmt , stopped jardiance due to UTI, she is NYHA Iib. Compensated and euvolemic today -Sinus node dysfunction: S/p dual-chamber PPM Biotronik, emergently implanted 05/13/2022 she had 10-second conversion pause after cardioversion, device check 01/18/2023 shows normal device function and stable lead thresholds V threshold slightly elevated, she did have an A-fib episodes with longest lasting 55 minutes Yoav Hollingsworth MD Cardiac Electrophysiology [facility] OFFICE VISIT Observed: 06/26/2024 1:30 PM Status: COMPLETED Source: [facility] [id number] Kraen Gifford F Date Provider Department Center 06/26/2024 241-YOAV [facility] Family History Problem Relation Age of Onset Lung cancer Mother's Sister Family Status - Relation Status Age at Mother's Sister Level of Service:84166 [place] OFFICE/OUTPATIENT ESTABLISHED LOW MDM 20 MIN OCT OPTIC NERVE OU Observed: 06/04/2024 4:46 PM Status : F Source: [facility] See note PROGRESS Observed: 05/31/2024 1:00 PM Status: COMPLETED Source: [facility] Attestation signed by Juan Casillas MD at 06/11/2024 1:56 PM I reviewed the salient portions of the patient history. I have seen and examined the patient with the resident/fellow Dr. Taylor on 05/31. I repeated the jessica components of the exam. Agree with the noted assessment and plan. Juan Casillas MD [facility] Pulmonary and Critical Care Medicine Pulmonary Clinic Visit Note Patient: Karen Gifford Age: 89 y.o. : 1935 Account No.: [id number] Follow up visit Last visit 03/2024 HPI Karen Gifford is a 89 y.o. female who has past medical history of heart failure with preserved ejection fraction, sick sinus syndrome status post pacemaker, recently hospitalized in February 2024 for acute hypoxic respiratory failure, right-sided pleural effusion status post thoracentesis 800 cc of fluid was removed, fluid analysis consistent with exudative, lymphocytic predominant. Chief Pulmonary problem: Dyspnea on exertion Last visit summary: PFT and high-resolution CT scan was ordered. Interval Hx: Patient comes to the clinic today for follow-up, she denies any worsening shortness of breath, no cough or sputum production, no fever or chills, she continues to have multiple joint pain, no swelling, denies any skin rash or mouth ulcers. Most recent PFT:05/[address] scan:05/2024 Lung nodules: Small cluster of reticular nodular opacities in the middle lobe measuring up to 4 mm (4/). Noncalcified 7 mm lung nodule right middle lobe (4/216). Noncalcified 7 mm lung nodule perihilar right middle lobe (4/201). Noncalcified 3 mm right middle lobe (4/266). Noncalcified 5 mm right lower lobe (4/217). There are a few scattered 2 to 3 mm lung nodules in the right lower lobe, left upper, left lower lobe. High-resolution: Mild perihilar bronchiectasis. Clustered cystic airspaces right lower lobe,, bandlike atelectasis adjacent to large thoracic osteophytes extending from the mid to lower right anterior thoracic spine. Otherwise, no additional regions of subpleural cystic changes. No significant groundglass opacities, evidence for air trapping or septal thickening. Bandlike atelectasis in the left lung base. IMPRESSION: Impression: Osteophyte induced adjacent pulmonary atelectasis and fibrosis right lower lobe. Past Medical History: Diagnosis Date A-fib ([facility]) CVA (cerebral vascular accident) ([facility]) GERD (gastroesophageal reflux disease) Hyperlipidemia Hypertension LANEY (obstructive sleep apnea) Osteoarthritis Past Surgical History: Procedure Laterality Date APPENDECTOMY CARPAL TUNNEL RELEASE CHOLECYSTECTOMY HYSTERECTOMY Allergies: Farxiga [dapagliflozin], Isosorbide, Lisinopril, Morphine, Procardia [nifedipine], and Vasotec [enalapril maleate] Prior to Admission medications Medication Sig Start Date End Date Taking? Authorizing Provider bumetanide (Bumex) 1 mg tablet Take 1 tablet by mouth in the morning. Yes Historical Provider, colchicine 0.6 mg tablet Take 1 tablet (0.6 mg) by mouth two times daily for 720 doses. 05/16/24 05/11/25 Yes Chilango Yousif NP ferrous sulfate 325 (65 Fe) MG tablet 1 tablet Orally Twice Daily for 30 days 03/28/24 Yes Historical Provider, latanoprost (Xalatan) 0.005 % ophthalmic solution Administer 1 drop into both eyes at bedtime. Yes Historical Provider, liothyronine (Cytomel) 5 mcg tablet Take 2 tablets by mouth in the morning. Yes Historical Provider, magnesium 250 mg tablet Take 250 mg by mouth. Yes Historical Provider, rivaroxaban (Xarelto) 20 mg tablet Take 1 tablet (20 mg) by mouth daily with evening meal. Take with food. 04/13/24 Yes Chilango Yousif NP timolol (Betimol) 0.5 % ophthalmic solution Administer 1 drop into both eyes two times daily. Yes Historical Provider, atorvastatin (Lipitor) 10 mg tablet Take 1 tablet (10 mg) by mouth at bedtime. 03/15/24 05/14/24 Edward Ford MD dilTIAZem CD (Cardizem CD) 240 mg 24 hr capsule Take 1 capsule (240 mg) by mouth in the morning. Do not start before March 16, 2024. 03/16/24 05/15/24 Edward Ford MD metoprolol tartrate (Lopressor) 50 mg tablet Take 1 tablet (50 mg) by mouth three times daily. 03/15/24 05/14/24 Edward Ford MD Social history: reports that she has never smoked. She does not have any smokeless tobacco history on file. She reports that she does not drink alcohol and does not use drugs. Family History Problem Relation Name Age of Onset Lung cancer Mother's Sister Review of Systems: CONSTITUTIONAL: no weight loss, no fever, no chills HEENT: no vision changes, no ear pain, no runny nose, no sore throat RESPIRATORY: no dyspnea, no cough, no wheeze, no sputum production CV: no chest pain, no palpitations, no syncope GI: no abdominal pain, no nausea, no vomiting, no diarrhea. MSK: no myalgia, no joint pain. SKIN: no rash, no pruritus. NEUROLOGICAL: no weakness, no paresthesias PSYCHIATRIC: No mood changes. No anxiety, no depression. Physical examination: Vitals: BP 131/78 (BP Location: Left arm, Patient Position: Sitting, BP Cuff Size: Adult) Pulse 78 Wt 67.1 kg (148 lb) SpO2 99% Comment: room air at ret BMI 23.18 kg/m??? GENERAL: Alert and oriented x 3. No acute distress. HEENT: EOMI, no scleral icterus. Moist mucous membranes. NECK: trachea midline, no JVD. Supple. LUNGS: Clear to auscultation bilaterally. No wheezes, rales, or rhonchi CARDIOVASCULAR: Regular rate and rhythm. Normal S1 and S2. No murmur, rubs, or gallops. BACK: normal curvature ABDOMEN: Soft, non-tender, non-distended. Normal bowel sounds. No palpable masses. EXTREMITIES: No cyanosis, no edema, no calf tenderness SKIN: Warm and dry. No rashes or lesions NEUROLOGIC: Normal gait. No extremity weakness. No slurred speech PSYCHIATRIC: Cooperative. Appropriate mood and affect. Labs Results: Lab Results Component Value Date HGB 8.2 (L) 03/15/2024 HGB 8.2 (L) 03/14/2024 HGB 9.1 (L) 03/13/2024 HCT 28.5 (L) 03/15/2024 HCT 28.4 (L) 03/14/2024 HCT 31.2 (L) 03/13/2024 WBC 9.45 03/15/2024 WBC 9.81 03/14/2024 WBC 9.31 03/13/2024 BUN 12 03/15/2024 BUN 16 03/14/2024 BUN 18 03/13/2024 CREATININE 0.67 03/15/2024 CREATININE 0.67 03/14/2024 CREATININE 0.73 03/13/2024 NA 137 03/15/2024 NA 133 (L) 03/14/2024 NA 133 (L) 03/13/2024 K 3.4 (L) 03/15/2024 K 3.3 (L) 03/14/2024 K 3.1 (L) 03/13/2024 CO2 29 03/15/2024 CO2 29 03/14/2024 CO2 31 03/13/2024 Radiology: No Chest X-ray results found for the past [address] chest high resolution wo contrast Result Date: 05/31/2024 Impression: Osteophyte induced adjacent pulmonary atelectasis and fibrosis right lower lobe. Mild perihilar bronchiectasis. Multiple lung nodules measuring up to 7 mm. Follow-up CT in 3-6 months recommended. Electronically signed: Eric Singh. CT abdomen pelvis w IV contrast Result [...] in etiology. Electronically signed: Avtar Gil MD. Assessment and Plan: Diagnoses and all orders for this visit: Multiple pulmonary nodules Pleural effusion Plan: # Multiple pulmonary nodules Index CT scan: 03/2024 Nodule size (mm): 7 Nodule location: upper Nodule type: Subsolid Functional status (ECOG): (0) Fully active, able to carry on all predisease performance without restriction Smoking status: Never History of cancer: No PET scan: NA Chen nodule score: 10. Nodify test: No -Repeat CT scan in 6-month # Right-sided pleural effusion -S/p thoracentesis, lymphocytic predominant, culture and cytology were negative -No evidence of effusion on CT scan. # Bronchiectasis, mild -Central, with focal bronchiectasis on the lower right base. - Patient was instructed to use incentive spirometer. Return to the clinic for 6-month Mitchell Theodore MD PCCM Fellow [facility] OFFICE VISIT Observed: 05/31/2024 1:00 PM Status: COMPLETED Source: [facility] [id number] Karen Gifford F Date Provider Department Center 05/31/2024 [address] [facility] PULM Comprehensiv Family History Problem Relation Age of Onset Lung cancer Mother's Sister Family Status - Relation Status Age at Mother's Sister Level of Service:54349 [place] OFFICE/OUTPATIENT ESTABLISHED MOD MDM 30 MIN Reason for Visit and Comments: Pleural Effusion [Other] CT CHEST HIGH RESOLUTION WO CONTRAST Observed: 05/31/2024 9:37 AM Status: UNK Source: [facility] CT chest without contrast, h igh-resolution. History: Dyspnea on exertion. Technique: Axial CT chest without contrast, additional high resolution supine imaging. The patient was unable to lay prone. All CT scans at this facility use dose modulation, iterative reconstruction, and/or weight based dosing when appropriate to reduce radiation dose to as low as reasonably achievable. Comparison: CT abdomen pelvis with contrast 03/10/2024 Findings: No enlarged mediastinal or axillary lymph nodes. Minimal calcified plaque in the thoracic aorta without aneurysm. Cardiac pacer. Mild aortic valve calcifications. Minimal coronary artery calcifications. Trace pericardial effusion, significant decreased in size. No pleural effusion. No osseous destructive lesions. Previously identified pleural have resolved. Bibasilar atelectasis nearly resolved. Lung nodules: Small cluster of reticular nodular opacities in the middle lobe measuring up to 4 mm (4/201). Noncalcified 7 mm lung nodule right middle lobe (4/216). Noncalcified 7 mm lung nodule perihilar right middle lobe (4/201). Noncalcified 3 mm right middle lobe (4/266). Noncalcified 5 mm right lower lobe (4/217). There are a few scattered 2 to 3 mm lung nodules in the right lower lobe, left upper, left lower lobe. High-resolution: Mild perihilar bronchiectasis. Clustered cystic airspaces right lower lobe,, bandlike atelectasis adjacent to large thoracic osteophytes extending from the mid to lower right anterior thoracic spine. Otherwise, no additional regions of subpleural cystic changes. No significant groundglass opacities, evidence for air trapping or septal thickening. Bandlike atelectasis in the left lung base. IMPRESSION: Impression: Osteophyte induced adjacent pulmonary atelectasis and fibrosis right lower lobe. Mild perihilar bronchiectasis. Multiple lung nodules measuring up to 7 mm. Follow-up CT in 3-6 months recommended. Electronically signed: Eric Singh. REFILL Observed: 05/16/2024 12:00 AM Status: COMPLETED Source: [facility] [id number] Karen Gifford F Date Provider Department Center 05/16/2024 [place]-ANSHUL WALTON MATT [facility] Family History Problem Relation Age of Onset Lung cancer Mother's Sister Family Status - Relation Status Age at Mother's Sister Reason for Visit and Comments: Med Refill [[id number]] ALLERGIES DATE TYPE / CODE NAME / CODE REACTION SEVERITY SOURCE 03/12/2024 DRUG INGREDI/555952 003(SNOMED CT) DAPAGLIFLOZIN Other [facility] 01/02/2024 DRUG/[id number] (SNOMED CT) DORZOLAMIDE-TIMOLOL Unknown [facility] 01/02/2024 DRUG INGREDI/439877 003(SNOMED CT) PANTOPRAZOLE Unknown [facility] 06/03/2023 DRUG INGREDI/428011 003(SNOMED CT) NIFEDIPINE [facility] 06/03/2023 DRUG INGREDI/572968 003(SNOMED CT) ENALAPRIL MALEATE [facility] 02/21/2023 Drug Class/10118331 3(SNOMED CT) SULFA (SULFONAMIDE ANTIBIOTICS) Unknown [facility] 05/13/2022 DRUG INGREDI/496361 003(SNOMED CT) ISOSORBIDE Other [facility] 05/13/2022 DRUG INGREDI/488968 003(SNOMED CT) MORPHINE Other [facility] 05/10/2022 DRUG INGREDI/940967 003(SNOMED CT) LISINOPRIL Cough [facility] ENCOUNTERS ADMIT/DISCHARGE ACCOUNT NUMBER ADMITTING ENCOUNTER CLASS LOCATION SOURCE 05/17/2025 [id number] Ambulatory [facility] ng:BV Main OR (SN) [facility] 03/15/2025 [id number] Ambulatory Building:[facility] 01/30/2025/01/31/20 [id number] Ambulatory Buildin [facility] 01/30/2025/01/31/20 [id number] Ambulatory Buildin [address] [place] [address] 12/21/2024 [id number] Ambulatory Building:[facility] 12/13/2024/12/14/19 [id number] Ambulatory Building:[facility] 12/07/2024 [id number] Ambulatory Building:[facility] 12/04/2024/12/05/19 [id number] Ambulatory Building:[facility] 11/21/2024 [id number] Ambulatory [facility] ng:[facility] 06/26/2024/06/26/20 24 [id number] Ambulatory Building:[facility] 06/04/2024 [id number] Ambulatory [facility] ng:[facility] 05/31/2024/05/31/20 24 [id number] Ambulatory Buildin [facility] 05/31/2024/05/31/20 24 [id number] Ambulatory Buildin [address] [facility] 05/31/2024/05/31/20 24 [id number] Ambulatory Building:[facility] 05/16/2024/05/16/20 24 [id number] Ambulatory Building:[facility] PAYERS ENCOUNTER GUARANTOR PAYER SUBSCRIBER SOURCE 05/17/2025 Primary Insurance:Self PayPolicy Number: Effective Date:4484-34-87Euz n Name:ALESSANDRO Hearn HoppleDOB: [id number] [facility] [address], [place] [address]Dlv: ([facility] 03/15/2025 Primary Insurance:MEDICARE Policy Number: [id number] ve Date:9476-87-31Zjl n Name:Medicare KAREN Oneal HOPPLEDOB: [id number], [place] [address] [facility] 03/15/2025 Secondary Insurance:CIGNAPol icy Number: [id number] e Date:2025-01-30 KAREN Oneal HOPPLEDOB: [id number], [place] [address] [facility] 01/30/2025 Primary Insurance:MEDICARE Policy Number: [id number] ve Date:6320-24-07Rad n Name:Medicare KAREN Oneal HOPPLEDOB: [id number], [place] [address] [facility] 01/30/2025 Secondary Insurance:CIGNAPol icy Number: [id number] e Date:2025-01-30 KAREN Oneal HOPPLEDOB: [id number], [place] [address] [facility] 01/30/2025 Primary Insurance:MEDICARE Policy Number: [id number] ve Date:0607-87-30Eaa n Name:Medicare KAREN Oneal HOPPLEDOB: [id number], [place] [address] [facility] 01/30/2025 Secondary Insurance:CIGNAPol icy Number: [id number] e Date:2025-01-30 KAREN Oneal HOPPLEDOB: [id number], [place] [address] [facility] 12/13/2024 Primary Insurance:MEDICARE Policy Number: [id number] Date:3583-09-81Dxo n Name:Medicare KAREN Oneal HOPPLEDOB: [id number], [place] [address] [facility] 12/04/2024 Primary Insurance:MEDICARE Policy Number: [id number] ve Date:8444-57-44Heg n Name:Medicare KAREN SPARKSPLEDOB: [id number], [place] [address] [facility] 12/04/2024 Secondary Insurance:CIGNAPol icy Number: [id number] e Date:2016-10-13 KAREN SPARKSPLEDOB: [id number], [place] [address] [facility] 11/21/2024 KAREN SPARKSPLEDOB: [address], [place] [address]Per: () Primary Insurance:MEDICARE A AND BPolicy Number: [id number] ve Date:6856-29-56Ifv n Name:CARE KAREN SPARKSPLEDOB: [id number], [place] [address] [facility] 11/21/2024 Secondary Insurance:CIGNAPol icy Number: [id number] e Date:4269-73-17Ntl n Name:MANAGED CARE KAREN SPARKSPLEDOB: [id number], [place] [address] [facility] 06/26/2024 Primary Insurance:MEDICARE Policy Number: [id number] ve Date:3306-86-06Cgk n Name:Medicare KAREN Onela HOPPLEDOB: [id number], [place] [address] [facility] 06/26/2024 Secondary Insurance:CIGNAPol icy Number: [id number] e Date:2016-10-13 KAREN Oneal HOPPLEDOB: [id number] [place] [address] [facility] 06/04/2024 KAREN Oneal HOPPLEDOB: [address] [place] [address]Sgw: () Primary Insurance:MEDICARE A AND BPolicy Number: [id number] ve Date:2207-52-72Scd n Name:CARE KAREN SPARKSPLEDOB: [id number], [place] [address] [facility] 06/04/2024 Secondary Insurance:CIGNAPol icy Number: [id number] e Date:2889-92-53Mkr n Name:MANAGED CARE KAREN SPARKSPLEDOB: [id number] [place] [address] [facility] 05/31/2024 Primary Insurance:MEDICARE Policy Number: [id number] ve Date:0482-10-39Daa n Name:Medicare KAREN Oneal HOPPLEDOB: [id number] [place] [address] [facility] 05/31/2024 Secondary Insurance:CIGNAPol icy Number: [id number] e Date:2016-10-13 KAREN SPARKSPLEDOB: [id number] [place] [address] [facility] 05/31/2024 Primary Insurance:MEDICARE Policy Number: [id number] ve Date:3168-05-59Bwf n Name:Medicare KAREN Oneal HOPPLEDOB: [id number] [place] [address] [facility] 05/31/2024 Secondary Insurance:CIGNAPol icy Number: [id number] e Date:2016-10-13 KAREN Oneal HOPPLEDOB: [id number] [place] [address] [facility] 05/31/2024 Primary Insurance:MEDICARE Policy Number: [id number] ve Date:2150-06-28Eja n Name:Medicare KAREN SPARKSPLEDOB: [id number] [place] [address] [facility] 05/31/2024 Secondary Insurance:CIGNAPol icy Number: [id number] e Date:2016-10-13 KAREN Oneal HOPPLEDOB: [id number] [place] [address] [facility] 05/16/2024 Primary Insurance:MEDICARE Policy Number: [id number] ve Date:3943-80-10Thu n Name:Medicare KAREN SPARKSPLEDOB: [id number], [place] [address] [facility] 05/16/2024 Secondary Insurance:CIGNAPol icy Number: [id number] e Date:2016-10-13 KAREN Oneal HOPPLEDOB: [id number] [place] [address] [facility]
== END 2025-05-15 09:47 | disposition home or self-care (01) ==
LOC: LAB 09:59
PROVIDERS: PCP Family Medicine
DX: S60.111A Contusion of right thumb with damage to nail, initial encounter (principal); Z95.0 Presence of cardiac pacemaker
CPT/HCPCS: 36415; 71046; 80048; 85025; 93005

== ENCOUNTER 2025-05-22 12:54 | Outpatient (OUT) | payer MEDICARE, OTHER, SELFPAY ==
--- NOTE | 2025-05-22 12:57 | US_ITS ---
The [address] [address] Patient Name: DEBORA GIFFORD MRN: [id number] date: 1935 Sex: F Assigned Patient Location: US Current Patient Location: US Accession/Order Number: [id number] Exam Date: 05/22/2025 12:58 Report Date: 05/22/2025 18:36 At the request of: VINCENZO AUSTIN MD Procedure: US pelvis Transabdominal pelvic ultrasound INDICATION: Ovarian cyst COMPARISON: 12/11/2024 FINDINGS: Hysterectomy. Left ovary not visualized. Ovary not well-visualized due to posterior pelvic location. Patient refused transvaginal examination. There is a right adnexal cyst 4.9 x 4.9 x 2.8 cm in size. US/US pelvis IMPRESSION: Difficult transabdominal examination due to position of the right adnexa. Right adnexal cyst 4.9 cm in size has increased in size in the prior examination.. Impression dictated by: Yuong Ortega M.D. 05/22/2025 6:36 PM Dictation Location: [place] [address] Electronically authenticated by: [id number] Y Date: 05/22/2025 18:36
--- OUTSIDE RECORDS SUMMARY | 2025-05-22 12:58 | XMS_ITS | CCD ---
Author Organization [facility] Care Team Providers Care Inside Sales Territory Manager Name Role Phone ROBBY ., DR LOYA [...] Unavailable HOY ., DR LOYA Admitting Unavailable ZIEBER, DR KD Siegel Consulting Unavailable HOY ., DR LOYA Primary Care Unavailable LORI, CHILANGO Attending Unavailable LORI, CHILANGO Admitting Unavailable HOY ., DR LOYA Consulting Unavailable MONTGOMERY, DR JAY Santillan Consulting Unavailable ISI YOUSIFA Consulting Unavailable LORI, CHILANGO Admitting Unavailable CHILANGO YUOSIF Consulting Unavailable ISI YOUSIFA Attending Unavailable HOY ., DR LOYA Primary Care Unavailable HOY ., DR LOYA Consulting Unavailable HOY ., DR LOYA Admitting Unavailable HOY ., DR LOYA Attending Unavailable HOY ., DR LOYA Primary Care Unavailable Abimbola Amador Consulting Unavailable HOY ., DR LOYA Consulting Unavailable HOY ., DR LOYA Admitting Unavailable HOY ., DR LOYA Attending Unavailable HOY ., DR LOYA Primary Care Unavailable VINCENZO AUSTIN M Primary Care Unavailable ZHAO PEDERSEN Referring Unavailable Vincenzo Austin MD Primary Care Provider [phone] Feroz DO Jennifer Y Unavailable Vincenzo Austin MD Primary Care Provider [phone] Jay Guerra MD Unavailable VINCENZO AUSTIN Primary Care Unavailable SIMONE CAMPOVERDE Attending Unavailable HOY, VINCENZO Primary Care Unavailable TROY, SIMONE YChloé Attending Unavailable LORIE PARK Attending Unavailable HOY, VINCENZO Primary Care Unavailable HOY, VINCENZO Primary Care Unavailable KIKO BARBA Attending Unavailable JAY GUERRA Attending Unavailable HOY, VINCENZO Referring Unavailable HOY, VINCENZO Primary Care Unavailable WES DIAZ Attending Unavailable PROVIDER, CONVERSION Primary Care Unavailable WES DIAZ Referring Unavailable PROVIDER, CONVERSION Primary Care Unavailable Vincenzo Austin Primary Care Physician [phone] Avtar TUCKER Attending Unavailable Robby Vincenzo Referring Unavailable Avtar TUCKER Attending Unavailable Provider , Conversion Primary Care Provider Un available VINCENZO AUSTIN M Primary Care Unavailable ABIMBOLA CHACON Attending Unavailable SELF, SELF Referring Unavailable HOY, VINCENZO M Primary Care Unavailable ABIMBOLA CHACON Attending Unavailable SELF, SELF Referring Unavailable SELF, SELF Referring Unavailable ROBBY, VINCENZO M Primary Care Unavailable ABIMBOLA CHACON Attending Unavailable Vincenzo Austin MD Primary Care UnavailBruce Quinones MD Attending Unavailable SIMBA, JENNIFER Referring Unavailable QARI, FABIOLA Attending Unavailable JJ AYERS Referring Unavailable JJ AYERS Referring Unavailable FERMIN TAYLOR Attending Unavailable CHILANGO YOUSIF Attending Unavailable JJ AYERS Referring Unavailable STEFANO COBOS Referring Unavailable JAKE, ADY Referring Unavailable SANDADA, ADY Referring Unavailable JJ AYERS Attending Unavailable Allergies Allergy Classification Reported Allergen(s) Allergy Type Date of Onset Reaction(s) Facility (3 sources) Enalapril; Translations: [Vasotec] Drug Allergy 5 [facility] Repository (7 sources) Isosorbide; Translations: [ISOSORBIDE] Drug Allergy 0 [facility] (3 sources) NIFEdipine; Translations: [Procardia] Drug Allergy 5 [facility] (4 sources) Calcium Channel Blockers Propensity to adverse reactions to drug 3 [facility] (5 sources) Enalapril; Translations: [enalapril] Drug Allergy 3 Unknown (qualifier value) [facility] (7 sources) Enalapril; Translations: [ENALAPRIL MALEATE] Drug Allergy 3 Unknown [facility] (6 sources) Isosorbide Drug Allergy 0 Other (See Comments) [facility] (9 sources) Lisinopril; Translations: [LISINOPRIL] Drug Allergy 2 Other (See Comments), Unknown (qualifier value) [facility] (12 sources) Morphine; Translations: [MORPHINE] Drug Allergy 2 Other (See Comments) [facility] (8 sources) NIFEdipine; Translations: [NIFEDIPINE] Drug Allergy 5 Unknown, Unknown (qualifier value) [facility] (11 sources) Sulfonamides (Antibiotic); Translations: [SULFA (SULFONAMIDE ANTIBIOTICS)] Propensity to adverse reactions to drug 3 Unknown, Other (See Comments) [facility] (10 sources) Calcium Channel Blocking Agents-Dihydropy ridines; Translations: [CALCIUM CHANNEL BLOCKING AGENTS-DIHYDROPY RIDINES] Propensity to adverse reactions to drug 5 Unknown, Other (See Comments) [facility] (5 sources) dorzolamide / Timolol; Translations: [DORZOLAMIDE-TRISTEN OLOL] Drug Allergy 4 Other (See Comments) [facility] Repository (3 sources) Sulfonamides (Antibiotic); Translations: [sulfa drugs] Drug allergy Unknown (qualifier value) [facility] (1 source) Lisinopril; Translations: [Zestril] Drug Allergy [facility] Repository (1 source) dapagliflozin; Translations: [Farxiga] Drug Allergy [facility] Repository (1 source) dorzolamide; Translations: [Dorzolamide Hydrochloride] Drug Allergy [facility] Repository (2 sources) pantoprazole; Translations: [pantoprazole] Drug Allergy 4 [facility] Repository (1 source) dapagliflozin; Translations: [DAPAGLIFLOZIN] Drug Allergy 4 [facility] Repository Medications Current Medications Medication Drug Class(es) Dates Sig (Normalized) Sig (Original) albuterol 0.83 mg/ml inhalation solution (4 sources) beta2-Adrenergic Agonist Start: 02-16-2023 take 3 mL by inhalation every six hours as needed albuterol (PROVENTIL) 2.5 mg /3 mL (0.083 %) nebulizer solution 3 mL as needed Inhalation every 6 hrs 02/16/2023 Active atenolol 100 mg oral tablet (8 sources) beta-Adrenergic Antwon Start: 05-04-2023 Atenolol 100 MG tablet 05/04/2023 Active atorvastatin 10 mg oral tablet (6 sources) HMG-CoA Reductase Inhibitor Start: 03-15-2024 End: 05-14-2024 atorvastatin (LIPITOR) 10 mg tablet Take 1 tablet (10 mg total) by mouth. 03/15/2024 05/14/2024 Active take 1 tablet by mouth twice celestine ly Atorvastatin 10 MG tablet Take 1 tablet by mouth 2 times daily. Active bumetanide 1 mg oral tablet (12 sources) Loop Diuretic Start: 05-24-2023 End: 06-28-2023 take 1 tablet by mouth once daily bumetanide 1 MG tablet Take 1 tablet by mouth daily. 05/24/2023 Active cholecalciferol 0.25 mg oral capsule (6 sources) Vitamin D cholecalciferol (VITAMIN D3) 250 mcg (10,000 unit) capsule Only in the winter Active ciclopirox 80 mg/ml topical solution (10 sources) Start: 03-24-2023 ciclopirox 8 % Solution topical solution APPLY 1 SOLUTION TOPICALLY ONCE DAILY FOR 30 DAYS 03/24/2023 Active colchicine 0.6 mg oral tablet (6 sources) Start: 03-15-2024 End: 05-14-2024 take 1 tablet by mouth twice daily colchicine 0.6 mg Tab 0.6 mg = 1 tab(s), Oral, BID, Refills(s) 0 Start Date: 04/13/24 Status: Ordered 24 hr dilTIAZem hydrochloride 300 mg extended release oral tablet (12 sources) Calcium Channel Antwon Start: 04-13-2024 take 1 tablet by mouth once daily Cardizem LA 300 mg/24 hours oral tablet, extended release 300 mg = 1 tab(s), Oral, Daily, Refills(s) 0 Start Date: 04/13/24 Status: Ordered Start: 03-16-2024 End: 05-15-2024 take 1 capsule by mouth every twenty-four hours in the morning dilTIAZem CD (CARDIZEM CD) 240 mg 24 hr capsule Take 1 capsule (240 mg total) by mouth in the morning. 03/16/2024 05/15/2024 Active Start: 04-26-2023 Diltiazem 180 MG Cap SR 24HR capsule XL 04/26/2023 Active take 1 capsule by mouth once celestine ly Diltiazem 240 MG Cap SR 24HR capsule XL Take 1 capsule by mouth daily. Active take 1 capsule by mouth once celestine ly diltiazem (CARDIZEM CD) 300 MG 24 hr capsule Take 1 (one) capsule (300 mg total) by mouth daily . Active famotidine 40 mg oral tablet (6 sources) Histamine-2 Receptor Antagonist Start: 11-30-2023 take 1 tablet by mouth twice daily Pepcid 40 MG tablet Take 1 tablet by mouth 2 times daily. 11/30/2023 Active take 1 tablet by eh th in the morning, then take 1 tablet by mouth at bedtime famotidine (PEPCID) 20 mg tablet Take 1 tablet (20 mg total) by mouth in the morning and 1 tablet (20 mg total) before bedtime. Active ferrous sulfate 325 mg delayed release oral tablet (3 sources) Start: 04-13-2024 take 1 tablet by mouth twice daily ferrous sulfate 325 mg oral enteric coated tablet 325 mg = 1 tab(s), Oral, BID, Refills(s) 0 Start Date: 04/13/24 Status: Ordered Start: 03-28-2024 take 1 tablet by eh th twice daily ferrous sulfate 325 (65 FE) mg tablet 1 tablet Orally Twice Daily for 30 days 03/28/2024 Active hydrALAZINE hydrochloride 100 mg oral tablet (8 sources) Arteriolar Vasodilator Start: 05-20-2023 hydrALA ZINE 100 MG tablet 05/20/2023 Active latanoprost 0.05 mg/ml ophthalmic solution (11 sources) Prostaglandin Analog Start: 05-16-[address] 0.005 % Solution ophthalmic solution 05/16/2023 Active Start: 05-16-2023 latanoprost (X ALATAN) 0.005 % ophthalmic solution Administer 1 drop to both eyes. 05/16/2023 Active Start: 05-16-2023 latanoprost (X ALATAN) 0.005 % ophthalmic solution every night at bedtime . 05/16/2023 Active Start: 11-14-2020 take 1 drop(s) into the eye(s) once daily at bedtime latanoprost ophthalmic 0.005% solution 1 drop(s), OPTH, Once a day (at bedtime), 2.5 mL, Refill(s) 0 Start Date: 11/14/20 Status: Ordered liothyronine sodium 0.005 mg oral tablet (11 sources) l-Triiodothyronine Start: 04-13-2024 take 2 tablets by mouth once daily liothyronine 5 mcg Tab 10 mcg = 2 tab(s), Oral, Daily, Refills(s) 0 Start Date: 04/13/24 Status: Ordered Start: 05-16-2023 take 2 tablets by mo [facility] once daily Liothyronine 5 MCG tablet Take 2 tablets by mouth daily. 05/16/2023 Active Start: 05-16-2023 Liothyronine 5 MCG tablet 05/16/2023 Active Magnesium (10 sources) magnesium 250 mg tablet Take 1 tablet (250 mg total) by mouth. Active take 1 tablet by eh once daily at lunch magnesium 250 mg Tab Take 1 (one) tablet (250 mg total) by mouth daily with lunch . Active Magnesium (V-R M AGNESIUM) 250 MG tablet Take 1 tablet by mouth. Active take 1 tablet by eh once daily at lunch magnesium 250 mg [...] Ordered metoprolol tartrate 50 mg oral tablet (6 sources) beta-Adrenergic Antwon Start: 03-15-2024 End: 05-14-2024 metoprolol tartrate (LOPRESSOR) 50 mg tablet Take 1 tablet (50 mg total) by mouth. 03/15/2024 05/14/2024 Active take 1 tablet by mouth three tristen es daily Metoprolol succinate 50 MG tablet XL Take 1 tablet by mouth 3 (three) times a day. Active rivaroxaban 20 mg oral tablet (11 sources) Factor Xa Inhibitor Start: 04-13-2022 take 1 tablet by mouth once daily Xarelto 20 MG tablet Take 1 tablet by mouth daily. 05/18/2023 Active simvastatin 10 mg oral tablet (8 sources) HMG-CoA Reductase Inhibitor Start: 05-29-2023 simvastatin 10 MG tablet 05/29/2023 Active 12 hr timolol 5 mg/ml ophthalmic solution (16 sources) beta-Adrenergic Antwon Start: 05-09-2023 End: 11-21-2024 take 1 drop(s) into the eye(s) twice daily Timolol maleate 0.5 % Solution ophthalmic solution Place 1 drop in both eyes 2 times daily. 30 mL 3 11/21/2024 Active Start: 05-09-2023 Timolol maleat e 0.5 % Solution ophthalmic solution 05/09/2023 Active Start: 05-09-2023 take 1 drop(s) into the eye(s) in the morning timoloL (BETIMOL) 0.5 % ophthalmic solution 1 drop in the morning and 1 drop before bedtime. 05/09/2023 Active Start: 05-09-2023 timolol (TIMOP TIC) 0.5 % ophthalmic solution every night at bedtime . 05/09/2023 Active Start: 11-14-2020 Timolol Maleat e (Eqv-Istalol) 0.5% ophthalmic solution Refill(s) 0 Start Date: 11/14/20 Status: Ordered take 1 drop(s) into the eye(s) twice daily timoloL (BETIMOL) 0.25 % ophthalmic solution 1 (one) drop 2 (two) times a day . Active Completed/Discontinued Medications Medication Drug Class(es) Dates Sig (Normalized) Sig (Original) amiodarone hydrochloride 200 mg oral tablet (5 sources) Antiarrhythmic Start: 05-06-2023 End: 06-28-2023 amiodarone [...] cataract, left eye] 05-31-2023 Chronic Conduction disorders (13 sources) Cardiac pacemaker in situ; Translations: [Presence of cardiac pacemaker] Onset: 3 06-28-2023 Chronic Congestive heart failure; nonhypertensive (13 sources) Unspecified diastolic (congestive) heart failure; Translations: [...] unspecified] Onset: 3 04-13-2024 Chronic Essential hypertension (8 sources) Hypertensive disorder; Translations: [Essential (primary) hypertension] Onset: 3 06-28-2023 Chronic Fluid and electrolyte disorders (1 source) Hypokalemia; Translations: [HYPOKALEMIA] Onset: 3 Episodic Gastrointestinal hemorrhage (1 source) Gastrointestinal hemorrhage 02-17-2021 Episodic Glaucoma (6 sources) Primary open angle glaucoma; Translations: [Primary open-angle glaucoma, bilateral, indeterminate stage] Onset: 5 05-31-2023 Chronic Headache; including migraine (3 sources) [...] deformities (1 source) Osteopenia 11-14-2020 Episodic Other eye disorders (2 sources) Disorder of lacrimal gland; Translations: [Dry eye syndrome of bilateral lacrimal glands] Onset: 5 11-21-2024 Episodic Other eye disorders (1 source) Dry eye syndrome of bilateral lacrimal glands; Translations: [Dry eye syndrome of bilateral lacrimal glands] Onset: 5 Episodic Other gastrointestinal disorders (1 source) Abnormal [...] Multiple nodules of lung 04-13-2024 Episodic Other non-epithelial cancer of skin (1 source) Basal cell carcinoma of skin 11-14-2020 Episodic Other skin disorders (1 source) Epidermoid cyst 11-19-2020 Episodic Renata-; endo-; and myocarditis; cardiomyopathy (except that caused by tuberculosis or sexually transmitted disease) (2 sources) Pericardial effusion; Translations: [Pericardial effusion] 03-29-2024 Episodic Residual codes; unclassified (1 source) [...] [Other persistent atrial fibrillation] Onset: 4 Unclassified (1 source) Other pericardial effusion (noninflammatory); Translations: [Other pericardial effusion (noninflammatory)] Onset: 4 Unclassified (1 source) New Patient Onset: 4 Unclassified (1 source) Sebaceous cyst of skin 11-14-2020 Unclassified (2 sources) Lung Nodule; Translations: [Lung Nodule] Onset: 5 Past or Other Problems Problem Classification Problem [...] 09-06-2022 Episodic Other aftercare (1 source) Other half-way (current) drug therapy; Translations: [OTH HALF-WAY CURRENT DRUG THERAPY] Onset: 05-25-2022 Episodic Other lower respiratory disease (2 sources) Other nonspecific abnormal finding of lung field; Translations: [Other nonspecific abnormal finding of lung field] Onset: 03-09-2023 Episodic Other lower respiratory disease (2 sources) Other forms of dyspnea; Translations: [Other forms of dyspnea] Onset: 05-31-2024 Episodic Other screening for suspected conditions (not mental disorders or infectious disease) (10 sources) Encounter for screening for malignant neoplasm of rectum; Translations: [Encounter for screening for osteoporosis] Onset: 03-22-2022 Episodic Ovarian cyst (5 sources) Unspecified ovarian cyst, right side; Translations: [Cyst of right ovary] Onset: 04-18-2024 04-18-2024 Episodic Pleurisy; pneumothorax; pulmonary collapse (7 sources) Pleural effusion; Translations: [Pleural effusion, not elsewhere classified] Onset: 03-29-2024 03-29-2024 Episodic Residual codes; unclassified (1 source) Acquired absence of other specified parts of digestive tract; Translations: [ACQ ABSENCE OTH PART DIGESTV TRACT] Onset: 05-25-2022 Episodic Unclassified (1 source) LOW BACK PAIN, UNSPECIFIED; Translations: [LOW BACK PAIN, UNSPECIFIED] Onset: 08-27-2022 Unclassified (1 source) Other pericardial effusion (noninflammatory); Translations: [Other pericardial effusion (noninflammatory)] Onset: 03-29-2024 Results Test Name Value Interpretation Reference Range Facility Operative Reporton Operative Report Indication for Surgery Right thumb nail avulsion with nailbed laceration Preoperative Diagnosis CONTUSION OF RT THUMB WITH DAMAGE TO NAIL INITIAL ENCOUNTER Right thumb nail avulsion with nailbed laceration Postoperative Diagnosis Right thumb, nail avulsion with nailbed laceration, bone exposed distal phalanx with cortical irregularity, onychomycotic nail Operation Debridement Upper Extremity, NAIL DEBRIDMENT, Right, Thumb Reconstruction Nail Bed, NAILBED LACERATION REPAIR, Right, Thumb Right thumb nail removal, onychomycotic nail sent to pathology, repair nailbed irrigation debridement open wound bone exposed with irrigation debridement of bone distal phalanx Operation: Patient brought to the OR where she underwent IV sedation. Patient was given antibiotics preoperatively. Patient had right hand upper extremity prepped in sterile fashion. Timeout was performed with confirmation of antibiotics. Patient at this point in time had monitored anesthesia care with sedation. At this point time she underwent injection of 9 cc of quarter percent plain Marcaine. Following this patient was numb we tested her and proceeded with placing a thumb turnicot. At this point in time patient had the nail which had just been attached to the eponychium removed. The nail itself was evaluated it was very thickened with some evidence of fungus and onychomycotic nail. There was blood and evidence of nailbed laceration from patient's nail avulsion as well as evidence of thickening to the nail bed itself distally compared to more normal appearance of nailbed proximally. Patient at this point time had photographs taken there is a 5 mm laceration in the nailbed. Bone was exposed of the distal phalanx. Patient had irrigation with Irrisept and curetting of the open wound and the exposed distal phalanx. Patient had curetting of the open distal phalanx cortical irregularity/fracture due to the open injury to prevent infection.. Patient had at this point in time irrigation of the nail bed. Patient following thorough irrigation had preparation and repair of the nailbed utilizing 6-0 Vicryl under three 3.5 loupe magnification. Patient tolerated procedure well. At this point in time patient was awake during the operation and at this point time the nail was reevaluated 3.5 loupe magnification. The nail was cultured and specimen sent for fungal culture. The nail was very thickened and black. Patient who is awake advised me that the nail itself had been dark for approximately a year and is consistent with onychomycotic nail. I did not feel that it was in the best practice to replace this nail due to the infection and patient was in agreement. At this point in time the nail was sent to pathology. Patient then had irrigation followed by application of Neosporin to the nail bed. The tourniquet was removed hemostasis was excellent. Patient then had 2 x 2 Band-Aid applied. Patient transferred recovery room in stable condition Surgeon(s) Bruce Vicente MD (Surgeon - Primary) Anesthesia Monitored Anesthesia Care (Non Prone) Elis Meng MD (Provider) Estimated Blood Loss 3.0 mL Specimen(s) Culture Fungal (right thumb nail,Swab,Thumb R) Pathology Tissue Request (right thumb nail,AP Specimen) Tourniquet Time Tourni Cot Large, Thumb (Right), Total Time 12 Electronically signed by Bruce Vicente MD 05/17/25 16:03 EDT [facility] 36on 05-15-2025 36 I created a document . Please print and send to them. Thanks! [place] 36 Alexander Manzano. You saw this patient in December 2024, and she's due back next month for 6 mo follow up. [facility] is requesting STAT clearance for thumb nail debridement and laceration repair under local and MAC anesthesia. She is on Xarelto 20mg daily according to last office note. She had CXR, labs, and EKG this morning at [facility]. Results are scanned into labor mediator for your review. Please advise. Thanks so much! [place] Documentationon 05-15-2025 Documentation [id number] Karen Gifford Kimmy 1935 F Date Provider Department Center 05/15/2025 CHILANGO ZAMORA Family History Problem Relation Age of Onset Lung cancer Mother's Sister Family Status - Relation Status Age at Mother Father Brother Mother's Sister [place] Progress Note-Nurseon 2024 Progress Note-Nurse LEFT MESSAGE WITH PATIENT. RN WILL CALL BACK AROUND 3 PM FOR PSS INTERVIEW. Electronically signed by Daija Dhillon 05/15/25 11:40 EDT PSS PHONE CALL COMPLETED WITH PATIENT. Electronically signed by Daija Dhillon 05/16/25 10:13 EDT [facility] 36on 03-19-2025 36 Chilango Yousif, DENISE Burrows MA Please let [...] understanding and agreed with plan of care. Normal [facility] CT CHEST WO IV CONTRASTon CT CHEST WO IV CONTRAST CT CHEST WO IV CONTRAST 01/30/2025 11:04 [...] 6 months is advised. Electronically signed: Donato Bey Invalid Interpretation Code [facility] Office Visiton 01-30-2025 Follow-up visit [id number] Karen Gifford 1935 F Date Provider Department Center 01/30/2025 [id number] ALMEIDA [facility]ULM Comprehensiv Family History Problem Relation Age of Onset Lung cancer Mother's Sister Family Status - Relation Status Age at Mother Father Brother Mother's Sister Level of Service:65329 DC OFFICE/OUTPATIENT ESTABLISHED LOW MDM 20 MIN (GC) Reason for Visit and Comments: Lung Nodule [519] Pleural Effusion [Other] Normal [facility] Office Visiton 12-13-2024 Follow-up visit [id number] Karen Gifford 1935 F Date Provider Department Center 12/13/2024 CHILANGO ZAMORA MATT Rashid Family History Problem Relation Age of Onset Lung cancer Mother's Sister Family Status - Relation Status Age at Mother Father Brother Mother's Sister Level of Service:30414 DC OFFICE/OUTPATIENT ESTABLISHED MOD MDM 30 MIN Reason for Visit and Comments: Atrial Fibrillation [80] Hypertension [555886] Normal [facility] HVF 24-2 STANDARD - OUon HVF 24-2 STANDARD - OU See note Normal [facility] Perimetry studyon 11-21-2024 See note RADIOLOGY [facility] Radiology Study observation (narrative) [facility] Office Visiton 06-26-2024 Follow-up visit [id number] Karen Gifford 1935 Provider Department Center 06/26/2024 JJ ELENA MATT Rashid Family History Problem Relation Age of Onset Lung cancer Mother's Sister Family Status - Relation Status Age at Mother's Sister Level of Service:36070 DC OFFICE/OUTPATIENT ESTABLISHED LOW MDM 20 MIN Normal [facility] OCT OPTIC NERVE OUon 024 OCT OPTIC NERVE OU See note Normal [facility] Ophthalmic OCT panelon 06-04 See note RADIOLOGY [facility] Radiology Study observation (narrative) [facility] CT CHEST HIGH RESOLUTION WO CONTRASTon 05-31-2024 CT CHEST HIGH RESOLUTION WO CONTRAST CT chest without contrast, high-resolution. History: Dyspnea on exertion. Technique: Axial CT [...] CT in 3-6 months recommended. Electronically signed: Kd Singh. Normal [facility] Office Visiton 05-31-2024 Follow-up visit [id number] Karen Gifford 1935 F Date Provider Department Center 05/31/2024 FERMIN ALVARES [facility] PULM Comprehensiv Family History Problem Relation Age of Onset Lung cancer Mother's Sister Family Status - Relation Status Age at Mother's Sister Level of Service:04396 DC OFFICE/OUTPATIENT ESTABLISHED MOD MDM 30 MIN Reason for Visit and Comments: Pleural Effusion [Other] Normal [facility] [place] 125on 04-18-2024 Cancer Ag 125 Qn 68 [arb'U]/mL High 0 - 35 U/mL [facility] Comment on above: The method used for this test is [employer] [place] DXI chemiluminescent immunoassay. Values obtained by different assay methods cannot be used interchangeably. Cancer Ag 125 Qnon Interpretation and review of laboratory results Abnormal [facility] [place] 125 68 U/mL High 0-35 [facility] Comment on above: Result Comment: The method used for this test is [employer] [place] DXI chemiluminescent immunoassay. Values obtained by different assay methods cannot be used interchangeably. Performed By: #### 1 [id number] #### [facility] ([id number]) [address] [place] [address], [address] [place] [address] HVF 24-2 STANDARD - OUon HVF 24-2 STANDARD - OU See note Normal [facility] Perimetry studyon 12-01-2023 See note RADIOLOGY [facility] Radiology Study observation (narrative) [facility] ECG 12 leadon 06-28-2023 Atrial Rate [facility] P Volin [facility] P-R Interval [facility] Q-T Interval [facility] Q-T Interval (corrected) [facility] QRS Duration [facility] QTC Calculation (Bezet) [facility] R Volin [facility] T Volin [facility] Ventricular Rate [facility] Ophthalmic OCT panelon 05-31 See note RADIOLOGY [facility] Radiology Study observation (narrative) [facility] YAG LASER-OSon 05-31-2023 See note [facility] Basic Metabolic Profon 03-09 Anion gap [Moles/Vol] 9 mmol/L Normal 05-01 [facility] Comment on above: Performed By: #### B MP, BNP #### [facility] [address] [place] [address] Manager Car: Jay Peter MD BUN/CRE Ratio 10 Normal 05-04 [facility] Comment on above: Performed By: #### B MP, BNP #### [facility] [address] [place] [address] Manager Car: Jay Peter MD Calcium [Mass/Vol] 9.0 mg/dL Normal 8.6-10.4 [facility] Comment on above: Performed By: #### B MP, BNP #### [facility] [address] [place] [address] Manager Car: Jay Peter MD Chloride [Moles/Vol] 96 mmol/L Low 98-107 [facility] Comment on above: Performed By: #### B MP, BNP #### [facility] [address] [place] [address] Manager Car: Jay Peter MD CO2 [Moles/Vol] 28 mmol/L Normal 20-31 [facility] Comment on above: Performed By: #### B MP, BNP #### [facility] [address] [place] [address] Manager Car: Jay Peter MD Creatinine [Mass/Vol] 0.9 mg/dL Normal 0.5-0.9 [facility] Comment on above: Performed By: #### B MP, BNP #### [facility] [address] [place] [address] Manager Car: Jay Peter MD GFR/1.73 sq M.predicted among non-blacks MDRD (S/P/Bld) [Vol rate/Area] mL/min/{1.73_m2} Normal >60 [facility] Comment on above: Result Comment: These [...] Performed By: #### B MP, BNP #### [facility] [address] [place] [address] Manager Car: Jay Peter MD Glucose [Mass/Vol] 162 mg/dL High 70-99 [facility] Comment on above: Performed By: #### B MP, BNP #### [facility] [address] [place], [place] [id number] Manager Car: Jay Peter MD Potassium [Moles/Vol] 4.3 mmol/L Normal 3.7-5.3 [facility] Comment on above: Performed By: #### B MP, BNP #### [facility] [address] [place], [place] [id number] Manager Car: Jay Peter MD Sodium [Moles/Vol] 133 mmol/L Low 135-144 [facility] Comment on above: Performed By: #### B MP, BNP #### [facility] [address] [place], [place] [id number] Manager Car: Jay Peter MD Urea nitrogen [Mass/Vol] 9 mg/dL Normal 8- [facility] Comment on above: Performed By: #### B MP, BNP #### [facility] [address] [place], [place] [id number] Manager Car: Jay Peter MD Brain Natri. Peptideon 03-09 Natriuretic peptide B (Bld) [Mass/Vol] 1518 pg/mL High <300 [facility] Comment on above: Result Comment: An age-independent cutoff point of 300 pg/ml has a 98% negative predictive value excluding acute heart failure. Performed By: #### B MP, BNP #### [facility] [address] [place], [place] [phone] Manager Car: Jay Peter MD PROF CHEM 8 (BAS METB)on Anion gap [Moles/Vol] 10.1 mmol/L Normal [facility] Comment on above: Performed By: #### L IPID, T7, CMP, TSH #### [facility] [address] [place], [place] [address] Dr. Jorge Glaser Calcium [Mass/Vol] 9.1 mg/dL Normal 8.5-10.1 [facility] Comment on above: Performed By: #### L IPID, T7, CMP, TSH #### [facility] [address] [address] [address] Jorge Glaser Chloride [Moles/Vol] 98 mmol/L Normal 98-107 [facility] Comment on above: Performed By: #### L IPID, T7, CMP, TSH #### [facility] [address] [address] [address] Jorge Glaser CO2 [Moles/Vol] 32.1 mmol/L Critically high 21.0-32.0 [facility] Comment on above: Performed By: #### L IPID, T7, CMP, TSH #### [facility] [address] [address] [address] Jorge Glaser Creatinine [Mass/Vol] 0.93 mg/dL Normal 0.55-1.02 [facility] Comment on above: Performed By: #### L IPID, T7, CMP, TSH #### [facility] [address] [address] [address] Jorge Glaser EGFR-AF DOMINICAN >60 Normal >=60 [facility] Comment on above: Performed By: #### L IPID, T7, CMP, TSH #### [facility] [address] [address] [address] Jorge Glaser EGFR-NON AF DOMINICAN 57 mL/min/1.73m2 Critically low >=60 [facility] Comment on above: Performed By: #### L IPID, T7, CMP, TSH #### [facility] [address] [address] [address] Jorge Glaser Glucose [Mass/Vol] 103 mg/dL Normal 74-106 [facility] Comment on above: Performed By: #### L IPID, T7, CMP, TSH #### [facility] [address] [address] [address] Jorge Glaser Potassium [Moles/Vol] 4.2 mmol/L Normal 3.5-5.1 [facility] Comment on above: Performed By: #### L IPID, T7, CMP, TSH #### [facility] [address] [place] [address] Dr. Jorge Glaser Sodium [Moles/Vol] 136 mmol/L Normal 136-145 [facility] Comment on above: Performed By: #### L IPID, T7, CMP, TSH #### [facility] [address] [place] [address] Dr. Jorge Glaser Urea nitrogen [Mass/Vol] 16.0 mg/dL Normal 7.0-18.0 [facility] Comment on above: Performed By: #### L IPID, T7, CMP, TSH #### [facility] [address] [place] [address] Dr. Jorge Glaser Urea nitrogen/Creatinine [Mass ratio] 17.2 mg/mg Normal [facility] Comment on above: Performed By: #### L IPID, T7, CMP, TSH #### [facility] [address] [place] [address] Dr. Jorge Glaser BNPon 12-01-2022 Natriuretic peptide B (Bld) [Mass/Vol] 379.0 pg/mL Normal <=1,800.0 [facility] Comment on above: Performed By: #### L IPID, T7, CMP, TSH #### [facility] [address] [place] [address] Dr. Jorge Glaser CBC AUTO DIFFon 12-01-2022 BASO # 0.1 103/ul Normal 0.0-0.1 [facility] Comment on above: Performed By: #### C BC #### [facility] [address] [place] [address] Dr. Jorge Glaser Basophils/100 WBC (Bld) 1.3 % Normal 0.2-2.0 [facility] Comment on above: Performed By: #### C BC #### [facility] [address] [place] [address] Dr. Jorge Glaser EO # 0.2 103/ul Normal 0.0-0.7 [facility] Comment on above: Performed By: #### C BC #### [facility] [address] [address] [address] Jorge Glaser Eosinophils/100 WBC (Bld) 3.1 % Normal 0.9-7.0 [facility] Comment on above: Performed By: #### C BC #### [facility] [address] [address] [address] Jorge Glaser Erythrocyte distribution width (RBC) [Ratio] 14.4 % Normal 11.0-15.0 [facility] Comment on above: Performed By: #### C BC #### [facility] [address] [place] [address] Dr. Jorge Glaser Hematocrit (Bld) [Volume fraction] 36.1 % Normal 36.0-48.0 [facility] Comment on above: Performed By: #### C BC #### [facility] [address] [place] [address] Dr. Jorge Glaser Hemoglobin (Bld) [Mass/Vol] 11.5 g/dL Critically low 12.0-16.0 [facility] Comment on above: Performed By: #### C BC #### [facility] [address] [place] [address] Dr. Jorge Glaser IG # 0.05 10e3/ul Critically high 0.00-0.03 [facility] Comment on above: Performed By: #### C BC #### [facility] [address] [place] [address] Dr. Jorge Glaser IG % 0.6 % Critically high 0.0-0.5 [facility] Comment on above: Performed By: #### C BC #### [facility] [address] [place] [address] Dr. Jorge Glaser LYMPH # 1.7 103/ul Normal 1.2-3.8 [facility] Comment on above: Performed By: #### C BC #### [facility] [address] [place] [address] Dr. Jorge Glaser Lymphocytes/100 WBC (Bld) 21.2 % Normal 20.5-60.0 [facility] Comment on above: Performed By: #### C BC #### [facility] [address] [place] [address] Dr. Jorge Glaser MANUAL DIFF REQ NO Normal [facility] Comment on above: Performed By: #### C BC #### [facility] [address] [place] [address] Dr. Jorge Glaser MCH (RBC) [Entitic mass] 27.3 pg Normal 26.7-34.0 [facility] Comment on above: Performed By: #### C BC #### [facility] [address] [place] [address] Dr. Jorge Glaser MCHC (RBC) [Mass/Vol] 31.9 g/dL Normal 29.9-35.2 [facility] Comment on above: Performed By: #### C BC #### [facility] [address] [place] [address] Dr. Jorge Glaser MCV (RBC) [Entitic vol] 85.5 fL Normal 81.0-99.0 [facility] Comment on above: Performed By: #### C BC #### [facility] [address] [place] [address] Dr. Jorge Glaser MONO # 0.8 103/ul Normal 0.3-0.8 [facility] Comment on above: Performed By: #### C BC #### [facility] [address] [place] [address] Dr. Jorge Glaser Monocytes/100 WBC (Bld) 10.5 % Normal 1.7-12.0 [facility] Comment on above: Performed By: #### C BC #### [facility] [address] [place] [address] Dr. Jorge Glaser NEUT # 4.9 103/ul Normal 1.4-6.5 [facility] Comment on above: Performed By: #### C BC #### [facility] [address] [place] [address] Dr. Jorge Glaser Neutrophils/100 WBC (Bld) 63.3 % Normal 43.0-75.0 [facility] Comment on above: Performed By: #### C BC #### [facility] [address] [address] [address] Jorge Glaser Platelet mean volume (Bld) [Entitic vol] 8.7 fL Critically low 9.5-13.5 [facility] Comment on above: Performed By: #### C BC #### [facility] [address] [address] [address] Jorge Glaser PLT 226 103/ul Normal 150-450 [facility] Comment on above: Performed By: #### C BC #### [facility] [address] [address] [address] Jorge Glaser RBC 4.22 106/ul Normal 4.20-5.40 [facility] Comment on above: Performed By: #### C BC #### [facility] [address] [address] [address] Jorge Glaser WBC 7.8 103/ul Normal 4.0-11.0 [facility] Comment on above: Performed By: #### C BC #### [facility] [address] [address] [address] Jorge Glaser FREE THYROXINE INDEX T7on FTI 2.17 Normal 1.30-4.50 [facility] Comment on above: Performed By: #### L IPID, T7, CMP, TSH #### [facility] [address] [address] [address] Jorge Glaser T3U 31.0 % Normal 30.0-39.0 [facility] Comment on above: Performed By: #### L IPID, T7, CMP, TSH #### [facility] [address] [address] [address] Jorge Glaser T4 [Mass/Vol] 7.00 ug/dL Normal 4.80-13.90 [facility] Comment on above: Performed By: #### L IPID, T7, CMP, TSH #### [facility] [address] [address] [address] Jorge Glaser PROF 14(COMP METB)on 023 Albumin [Mass/Vol] 3.5 g/dL Normal 3.4-5.0 [facility] Comment on above: Performed By: #### L IPID, T7, CMP, TSH #### [facility] [address] [address] [address] Jorge Glaser Albumin/Globulin [Mass ratio] 0.9 {ratio} Normal [facility] Comment on above: Performed By: #### L IPID, T7, CMP, TSH #### [facility] [address] [place] [address] Dr. Jorge Glaser ALP [Catalytic activity/Vol] 56 U/L Normal 46-116 [facility] Comment on above: Performed By: #### L IPID, T7, CMP, TSH #### [facility] [address] [place] [address] Dr. Jorge Glaser ALT [Catalytic activity/Vol] 28 U/L Normal 14-59 [facility] Comment on above: Performed By: #### L IPID, T7, CMP, TSH #### [facility] [address] [place] [address] Dr. Jorge Glaser Anion gap [Moles/Vol] 10.2 mmol/L Normal [facility] Comment on above: Performed By: #### L IPID, T7, CMP, TSH #### [facility] [address] [place] [address] Dr. Jorge Glaser AST [Catalytic activity/Vol] 20 U/L Normal 15-37 [facility] Comment on above: Performed By: #### L IPID, T7, CMP, TSH #### [facility] [address] [place] [address] Dr. Jorge Glaser Bilirubin [Mass/Vol] 0.4 mg/dL Normal 0.2-1.0 [facility] Comment on above: Performed By: #### L IPID, T7, CMP, TSH #### [facility] [address] [place] [address] Dr. Jorge Glaser Calcium [Mass/Vol] 9.8 mg/dL Normal 8.5-10.1 [facility] Comment on above: Performed By: #### L IPID, T7, CMP, TSH #### [facility] [address] [place], [place] [id number] Dr. Jorge Glaser Chloride [Moles/Vol] 93 mmol/L Critically low 98-107 [facility] Comment on above: Performed By: #### L IPID, T7, CMP, TSH #### [facility] [address] [address] [address] Jorge Glaser CO2 [Moles/Vol] 34.5 mmol/L Critically high 21.0-32.0 [facility] Comment on above: Performed By: #### L IPID, T7, CMP, TSH #### [facility] [address] [address] [address] Jorge Glaser Creatinine [Mass/Vol] 1.01 mg/dL Normal 0.55-1.02 [facility] Comment on above: Performed By: #### L IPID, T7, CMP, TSH #### [facility] [address] [place] [address] Dr. Jorge Glaser EGFR-AF DOMINICAN >60 Normal >=60 [facility] Comment on above: Performed By: #### L IPID, T7, CMP, TSH #### [facility] [address] [place] [address] Dr. Jorge Glaser EGFR-NON AF DOMINICAN 52 mL/min/1.73m2 Critically low >=60 [facility] Comment on above: Performed By: #### L IPID, T7, CMP, TSH #### [facility] [address] [address] [address] Jorge Glaser Globulin (S) [Mass/Vol] 4.0 g/dL Normal [facility] Comment on above: Performed By: #### L IPID, T7, CMP, TSH #### [facility] [address] [address] [address] Jorge Glaser Glucose [Mass/Vol] 103 mg/dL Normal 74-106 [facility] Comment on above: Performed By: #### L IPID, T7, CMP, TSH #### [facility] [address] [address] [address] Jorge Glaser Potassium [Moles/Vol] 3.7 mmol/L Normal 3.5-5.1 [facility] Comment on above: Performed By: #### L IPID, T7, CMP, TSH #### [facility] [address] [address] [address] Jorge Glaser Protein [Mass/Vol] 7.5 g/dL Normal 6.4-8.2 [facility] Comment on above: Performed By: #### L IPID, T7, CMP, TSH #### [facility] [address] [address] [address] Jorge Glaser Sodium [Moles/Vol] 134 mmol/L Critically low 136-145 [facility] Comment on above: Performed By: #### L IPID, T7, CMP, TSH #### [facility] [address] [place] [address] Dr. Jorge Glaser Urea nitrogen [Mass/Vol] 17.0 mg/dL Normal 7.0-18.0 [facility] Comment on above: Performed By: #### L IPID, T7, CMP, TSH #### [facility] [address] [place] [address] Dr. Jorge Glaser Urea nitrogen/Creatinine [Mass ratio] 16.8 mg/mg Normal [facility] Comment on above: Performed By: #### L IPID, T7, CMP, TSH #### [facility] [address] [place] [address] Dr. Jorge Glaser TSHon 12-01-2022 TSH 4.022 uIU/mL Critically high 0.358-3.740 [facility] Comment on above: Performed By: #### L IPID, T7, CMP, TSH #### [facility] [address] [place] [address] Dr. Jorge Glaser XR CHEST 2 Von [...] by: ABIMBOLA AMADOR Date: 2022-12-01 13:06 Normal [facility] FREE T3on 11-11-2022 FREE T3 2.51 pg/mlL Normal 2.18-3.98 [facility] Comment on above: Performed By: #### L IPID, T7, CMP, TSH #### [facility] [address] [place] [address] Dr. Jorge Glaser T4on 11-11-2022 T4 [Mass/Vol] 6.00 ug/dL Normal 4.80-13.90 [facility] Comment on above: Performed By: #### L IPID, T7, CMP, TSH #### [facility] [address] [place] [address] Dr. Jorge Glaser TSHon 11-11-2022 TSH 4.223 uIU/mL Critically high 0.358-3.740 [facility] Comment on above: Performed By: #### L IPID, T7, CMP, TSH #### [facility] [address] [place] [address] Dr. Jorge Glaser BNPon 11-04-2022 Natriuretic peptide B (Bld) [Mass/Vol] 479.0 pg/mL Normal <=1,800.0 [facility] Comment on above: Performed By: #### L IPID, T7, CMP, TSH #### [facility] [address] [place] [address] Dr. Jorge Glaser CBC AUTO DIFFon 11-04-2022 BASO # 0.1 103/ul Normal 0.0-0.1 [facility] Comment on above: Performed By: #### C BC #### [facility] [address] [place] [address] Dr. Jorge Glaser Basophils/100 WBC (Bld) 0.8 % Normal 0.2-2.0 [facility] Comment on above: Performed By: #### C BC #### [facility] [address] [place] [address] Dr. Jorge Glaser EO # 0.1 103/ul Normal 0.0-0.7 [facility] Comment on above: Performed By: #### C BC #### [facility] [address] [address] [address] Jorge Glaser Eosinophils/100 WBC (Bld) 0.8 % Critically low 0.9-7.0 [facility] Comment on above: Performed By: #### C BC #### [facility] [address] [place] [address] Dr. Jorge Glaser Erythrocyte distribution width (RBC) [Ratio] 13.9 % Normal 11.0-15.0 [facility] Comment on above: Performed By: #### C BC #### [facility] [address] [place] [address] Dr. Jorge Glaser Hematocrit (Bld) [Volume fraction] 37.7 % Normal 36.0-48.0 [facility] Comment on above: Performed By: #### C BC #### [facility] [address] [place] [address] Dr. Jorge Glaser Hemoglobin (Bld) [Mass/Vol] 12.2 g/dL Normal 12.0-16.0 [facility] Comment on above: Performed By: #### C BC #### [facility] [address] [place] [address] Dr. Jorge Glaser IG # 0.14 10e3/ul Critically high 0.00-0.03 [facility] Comment on above: Performed By: #### C BC #### [facility] [address] [place] [address] Dr. Jorge Glaser IG % 1.1 % Critically high 0.0-0.5 [facility] Comment on above: Performed By: #### C BC #### [facility] [address] [place] [address] Dr. Jorge Glaser LYMPH # 1.6 103/ul Normal 1.2-3.8 [facility] Comment on above: Performed By: #### C BC #### [facility] [address] [place] [address] Dr. Jorge Glaser Lymphocytes/100 WBC (Bld) 11.8 % Critically low 20.5-60.0 [facility] Comment on above: Performed By: #### C BC #### [facility] [address] [place] [address] Dr. Jorge Glaser MANUAL DIFF REQ NO Normal [facility] Comment on above: Performed By: #### C BC #### [facility] [address] [place] [address] Dr. Jorge Glaser MCH (RBC) [Entitic mass] 28.2 pg Normal 26.7-34.0 [facility] Comment on above: Performed By: #### C BC #### [facility] [address] [place] [address] Dr. Jorge Glaser MCHC (RBC) [Mass/Vol] 32.4 g/dL Normal 29.9-35.2 [facility] Comment on above: Performed By: #### C BC #### [facility] [address] [place] [address] Dr. Jorge Glaser MCV (RBC) [Entitic vol] 87.3 fL Normal 81.0-99.0 [facility] Comment on above: Performed By: #### C BC #### [facility] [address] [place] [address] Dr. Jorge Glaser MONO # 0.8 103/ul Normal 0.3-0.8 [facility] Comment on above: Performed By: #### C BC #### [facility] [address] [place] [address] Dr. Jorge Glaser Monocytes/100 WBC (Bld) 5.9 % Normal 1.7-12.0 [facility] Comment on above: Performed By: #### C BC #### [facility] [address] [place] [address] Dr. Jorge Glaser NEUT # 10.4 103/ul Critically high 1.4-6.5 [facility] Comment on above: Performed By: #### C BC #### [facility] [address] [place] [address] Dr. Jorge Glaser Neutrophils/100 WBC (Bld) 79.6 % Critically high 43.0-75.0 [facility] Comment on above: Performed By: #### C BC #### [facility] [address] [id number] Jorge Glaser Platelet mean volume (Bld) [Entitic vol] 9.0 fL Critically low 9.5-13.5 [facility] Comment on above: Performed By: #### C BC #### [facility] [address] [place], [place] [address] Dr. Jorge Glaser PLT 216 103/ul Normal 150-450 [facility] Comment on above: Performed By: #### C BC #### [facility] [address] [address] [address] Jorge Glaser RBC 4.32 106/ul Normal 4.20-5.40 [facility] Comment on above: Performed By: #### C BC #### [facility] [address] [address] [address] Jorge Glaser WBC 13.1 103/ul Critically high 4.0-11.0 [facility] Comment on above: Performed By: #### C BC #### [facility] [address] [address] [address] Jorge Glaser ECHOCARDIO M/2D COMPLETEon 0 11-04-2022 ECHOCARDIO M/2D COMPLETE Patient: KAREN GIFFORD Exam Date: 11/04/2022 : 1935 Gender:F Ordering : CHILANGO YOUSIF [facility] Admission #: [id number] Family : Order #: [id number] CLICK HERE TO VIEW EXAM ECHOCARDIOGRAM REPORT [...] Area (VTI): 2.20 cm2, 2.20 cm2 Deceleration [place]: 2.65 m/s2 Pressure Half-Time: 481.67 ms Peak [...] Lopez M.D. on 11/04/2022 at 22:09 Normal [facility] PROF CHEM 8 (BAS METB)on Anion gap [Moles/Vol] 10.6 mmol/L Normal [facility] Comment on above: Performed By: #### L IPID, T7, CMP, TSH #### [facility] [address] [place] [address] Dr. Jorge Glaser Calcium [Mass/Vol] 9.5 mg/dL Normal 8.5-10.1 [facility] Comment on above: Performed By: #### L IPID, T7, CMP, TSH #### [facility] [address] [place] [address] Dr. Jorge Glaser Chloride [Moles/Vol] 97 mmol/L Critically low 98-107 [facility] Comment on above: Performed By: #### L IPID, T7, CMP, TSH #### [facility] [address] [address] [address] Jorge Glaser CO2 [Moles/Vol] 32.3 mmol/L Critically high 21.0-32.0 [facility] Comment on above: Performed By: #### L IPID, T7, CMP, TSH #### [facility] [address] [address] [address] Jorge Glaser Creatinine [Mass/Vol] 0.79 mg/dL Normal 0.55-1.02 [facility] Comment on above: Performed By: #### L IPID, T7, CMP, TSH #### [facility] [address] [address] [address] Jorge Glaser EGFR-AF DOMINICAN >60 Normal >=60 [facility] Comment on above: Performed By: #### L IPID, T7, CMP, TSH #### [facility] [address] [address] [address] Jorge Glaser EGFR-NON AF DOMINICAN >60 Normal >=60 [facility] Comment on above: Performed By: #### L IPID, T7, CMP, TSH #### [facility] [address] [address] [address] Jorge Glaser Glucose [Mass/Vol] 161 mg/dL Critically high 74-106 [facility] Comment on above: Performed By: #### L IPID, T7, CMP, TSH #### [facility] [address] [address] [address] Jorge Glaser Potassium [Moles/Vol] 3.9 mmol/L Normal 3.5-5.1 [facility] Comment on above: Performed By: #### L IPID, T7, CMP, TSH #### [facility] [address] [address] [address] Jorge Glaser Sodium [Moles/Vol] 136 mmol/L Normal 136-145 [facility] Comment on above: Performed By: #### L IPID, T7, CMP, TSH #### [facility] [address] [address] [address] Jorge Glaser Urea nitrogen [Mass/Vol] 20.0 mg/dL Critically high 7.0-18.0 [facility] Comment on above: Performed By: #### L IPID, T7, CMP, TSH #### [facility] [address] [address] [address] Jorge Glsaer Urea nitrogen/Creatinine [Mass ratio] 25.3 mg/mg Normal [facility] Comment on above: Performed By: #### L IPID, T7, CMP, TSH #### [facility] [address] [place] [address] Dr. Jorge Glaser FREE T3on 10-04-2022 FREE T3 2.15 pg/mlL Critically low 2.18-3.98 [facility] Comment on above: Performed By: #### L IPID, T7, CMP, TSH #### [facility] [address] [place] [address] Dr. Jorge Glaser POTASSIUMon 10-04-2022 Potassium [Moles/Vol] 3.5 mmol/L Normal 3.5-5.1 [facility] Comment on above: Performed By: #### L IPID, T7, CMP, TSH #### [facility] [address] [place] [address] Dr. Jorge Glaser T4on 10-04-2022 T4 [Mass/Vol] 6.50 ug/dL Normal 4.80-13.90 [facility] Comment on above: Performed By: #### T 4, TSH, FT3, K #### [facility] [address] [place] [address] Dr. Jorge Glaser TSHon 10-04-2022 TSH 4.603 uIU/mL Critically high 0.358-3.740 [facility] Comment on above: Performed By: #### L IPID, T7, CMP, TSH #### [facility] [address] [place] [address] Dr. Jorge Glaser OCC BLD IMMUNO SCREENon 08-15 OCCULT BLOOD Negative Normal NEGATIVE [facility] Comment on above: Performed By: #### O BSCRN #### [facility] [address] [place] [address] Dr. Jorge Glaser CBC AUTO DIFFon 09-01-2022 BASO # 0.1 103/ul Normal 0.0-0.1 [facility] Comment on above: Performed By: #### L IPID, T7, CMP, TSH #### [facility] [address] [place] [address] Dr. Jorge Glaser Basophils/100 WBC (Bld) 1.0 % Normal 0.2-2.0 [facility] Comment on above: Performed By: #### L IPID, T7, CMP, TSH #### [facility] [address] [place] [address] Dr. Jorge Glaser EO # 0.3 103/ul Normal 0.0-0.7 [facility] Comment on above: Performed By: #### L IPID, T7, CMP, TSH #### [facility] [address] [place] [address] Dr. Jorge Glaser Eosinophils/100 WBC (Bld) 3.8 % Normal 0.9-7.0 [facility] Comment on above: Performed By: #### L IPID, T7, CMP, TSH #### [facility] [address] [place] [address] Dr. Jorge Glaser Erythrocyte distribution width (RBC) [Ratio] 13.4 % Normal 11.0-15.0 [facility] Comment on above: Performed By: #### L IPID, T7, CMP, TSH #### [facility] [address] [place] [address] Dr. Jorge Glaser Hematocrit (Bld) [Volume fraction] 39.0 % Normal 36.0-48.0 [facility] Comment on above: Performed By: #### L IPID, T7, CMP, TSH #### [facility] [address] [place] [address] Dr. Jorge Glaser Hemoglobin (Bld) [Mass/Vol] 12.8 g/dL Normal 12.0-16.0 [facility] Comment on above: Performed By: #### L IPID, T7, CMP, TSH #### [facility] [address] [place] [address] Dr. Jorge Glaser IG # 0.10 10e3/ul Critically high 0.00-0.03 [facility] Comment on above: Performed By: #### L IPID, T7, CMP, TSH #### [facility] [address] [place] [address] Dr. Jorge Glaser IG % 1.1 % Critically high 0.0-0.5 [facility] Comment on above: Performed By: #### L IPID, T7, CMP, TSH #### [facility] [address] [place] [address] Dr. Jorge Glaser LYMPH # 2.3 103/ul Normal 1.2-3.8 [facility] Comment on above: Performed By: #### L IPID, T7, CMP, TSH #### [facility] [address] [place] [address] Dr. Jorge Glaser Lymphocytes/100 WBC (Bld) 26.9 % Normal 20.5-60.0 [facility] Comment on above: Performed By: #### L IPID, T7, CMP, TSH #### [facility] [address] [place] [address] Dr. Jorge Glaser MANUAL DIFF REQ NO Normal [facility] Comment on above: Performed By: #### L IPID, T7, CMP, TSH #### [facility] [address] [place] [address] Dr. Jorge Glaser MCH (RBC) [Entitic mass] 29.4 pg Normal 26.7-34.0 [facility] Comment on above: Performed By: #### L IPID, T7, CMP, TSH #### [facility] [address] [place] [address] Dr. Jorge Glaser MCHC (RBC) [Mass/Vol] 32.8 g/dL Normal 29.9-35.2 [facility] Comment on above: Performed By: #### L IPID, T7, CMP, TSH #### [facility] [address] [place] [address] Dr. Jorge Glaser MCV (RBC) [Entitic vol] 89.7 fL Normal 81.0-99.0 [facility] Comment on above: Performed By: #### L IPID, T7, CMP, TSH #### [facility] [address] [place] [address] Dr. Jorge Glaser MONO # 0.8 103/ul Normal 0.3-0.8 [facility] Comment on above: Performed By: #### L IPID, T7, CMP, TSH #### [facility] [address] [address] [address] Jorge Glaser Monocytes/100 WBC (Bld) 9.1 % Normal 1.7-12.0 [facility] Comment on above: Performed By: #### L IPID, T7, CMP, TSH #### [facility] [address] [place] [address] Dr. Jorge Glaser NEUT # 5.1 103/ul Normal 1.4-6.5 [facility] Comment on above: Performed By: #### L IPID, T7, CMP, TSH #### [facility] [address] [place] [address] Dr. Jorge Glaser Neutrophils/100 WBC (Bld) 58.1 % Normal 43.0-75.0 [facility] Comment on above: Performed By: #### L IPID, T7, CMP, TSH #### [facility] [address] [place] [address] Dr. Jorge Glaser Platelet mean volume (Bld) [Entitic vol] 8.8 fL Critically low 9.5-13.5 [facility] Comment on above: Performed By: #### L IPID, T7, CMP, TSH #### [facility] [address] [place] [address] Dr. Jorge Glaser PLT 158 103/ul Normal 150-450 [facility] Comment on above: Performed By: #### L IPID, T7, CMP, TSH #### [facility] [address] [place] [address] Dr. Jorge Glaser RBC 4.35 106/ul Normal 4.20-5.40 [facility] Comment on above: Performed By: #### L IPID, T7, CMP, TSH #### [facility] [address] [place] [address] Dr. Jorge Glaser WBC 8.7 103/ul Normal 4.0-11.0 [facility] Comment on above: Performed By: #### L IPID, T7, CMP, TSH #### [facility] [address] [address] [address] Jorge Glaser FREE THYROXINE INDEX T7on FTI 2.15 Normal 1.30-4.50 [facility] Comment on above: Performed By: #### L IPID, T7, CMP, TSH #### [facility] [address] [address] [address] Jorge Glaser T3U 33.0 % Normal 30.0-39.0 [facility] Comment on above: Performed By: #### L IPID, T7, CMP, TSH #### [facility] [address] [address] [address] Jorge Glaser T4 [Mass/Vol] 6.50 ug/dL Normal 4.80-13.90 [facility] Comment on above: Performed By: #### L IPID, T7, CMP, TSH #### [facility] [address] [place] [address] Dr. Jorge Glaser GLYCOHEMOGLOBIN A1Con 2022 ADA RECOMMENDATION SEE BELOW Normal [facility] Comment on above: Result Comment: ADA RECOMMENDED LIMIT 4.0 - 6.0 ADA THERAPEUTIC TARGET < 7.0 ACTION SUGGESTED > 7.0 Performed By: #### A 1C #### [facility] [address] [place] [address] Dr. Jorge Glaser Glucose [Mass/Vol] 137 mg/dL Normal [facility] Comment on above: Performed By: #### A 1C #### [facility] [address] [place] [address] Dr. Jorge Glaser HbA1c (Bld) [Mass fraction] 6.4 % Critically high 4.5-6.2 [facility] Comment on above: Performed By: #### A 1C #### [facility] [address] [place] [address] Dr. Jorge Glaser IRONon 09-01-2022 Iron [Mass/Vol] 58.0 ug/dL Normal 50.0-170.0 [facility] Comment on above: Performed By: #### I DAVID #### [facility] [address] [place] [address] Dr. Jorge Glaser LIPID PROFILEon 09-01-2022 CHOL-HDL RATIO NORM SEE BELOW Normal [facility] Comment on above: Result Comment: 3.3 - 4.4 LOW RISK 4.4 - 7.1 AVERAGE RISK 7.1 - 11.0 MODERATE RISK >11.0 HIGH RISK Performed By: #### L IPID, T7, CMP, TSH #### [facility] [address] [address] [address] Jorge Glaser Cholesterol [Mass/Vol] 128 mg/dL Normal <=200 [facility] Comment on above: Performed By: #### L IPID, T7, CMP, TSH #### [facility] [address] [address] [address] Jorge Glaser Cholesterol in HDL [Mass/Vol] 61 mg/dL Critically high 40-60 [facility] Comment on above: Performed By: #### L IPID, T7, CMP, TSH #### [facility] [address] [address] [address] Jorge Glaser Cholesterol in LDL [Mass/Vol] 49.0 mg/dL Normal [facility] Comment on above: Performed By: #### L IPID, T7, CMP, TSH #### [facility] [address] [address] [address] Jorge Glaser Cholesterol.total/C holesterol in HDL [Mass ratio] 2.1 {ratio} Normal [facility] Comment on above: Performed By: #### L IPID, T7, CMP, TSH #### [facility] [address] [address] [address] Jorge Glaser HDL NORMAL > or = 60 mg/dl - LO W CARDIOVASCULAR RISK <40 mg/dl - HIGH CARDIOVASCULAR RISK Normal [facility] Comment on above: Performed By: #### L IPID, T7, CMP, TSH #### [facility] [address] [address] [address] Jorge Glaser LDL CALC NORMAL SEE BELOW Normal [facility] Comment on above: Result Comment: <100 mg/dl OPTIMAL 100 - 129 mg/dl NEAR OR ABOVE OPTIMAL 130 - 159 mg/dl BORDERLINE HIGH 160 - 189 mg/dl HIGH >190 mg/dl VERY HIGH Performed By: #### L IPID, T7, CMP, TSH #### [facility] [address] [address] [address] Jorge Glaser Triglyceride [Mass/Vol] 90 mg/dL Normal <=150 [facility] Comment on above: Performed By: #### L IPID, T7, CMP, TSH #### [facility] [address] [address] [address] Jorge Glaser VLDL CALC 18.0 mg/dL Normal [facility] Comment on above: Performed By: #### L IPID, T7, CMP, TSH #### [facility] [address] [address] [address] Jorge Glaser PROF 14(COMP METB)on 023 Albumin [Mass/Vol] 3.5 g/dL Normal 3.4-5.0 [facility] Comment on above: Performed By: #### L IPID, T7, CMP, TSH #### [facility] [address] [address] [address] Jorge Glaser Albumin/Globulin [Mass ratio] 1.1 {ratio} Normal [facility] Comment on above: Performed By: #### L IPID, T7, CMP, TSH #### [facility] [address] [address] [address] Jorge Glaser ALP [Catalytic activity/Vol] 42 U/L Critically low 46-116 [facility] Comment on above: Performed By: #### L IPID, T7, CMP, TSH #### [facility] [address] [address] [address] Jorge Glaser ALT [Catalytic activity/Vol] 23 U/L Normal 14-59 [facility] Comment on above: Performed By: #### L IPID, T7, CMP, TSH #### [facility] [address] [address] [address] Jorge Glaser Anion gap [Moles/Vol] 10.0 mmol/L Normal [facility] Comment on above: Performed By: #### L IPID, T7, CMP, TSH #### [facility] [address] [address] [address] Jorge Glaser AST [Catalytic activity/Vol] 21 U/L Normal 15-37 [facility] Comment on above: Performed By: #### L IPID, T7, CMP, TSH #### [facility] [address] [place] [address] Dr. Jorge Glaser Bilirubin [Mass/Vol] 0.5 mg/dL Normal 0.2-1.0 [facility] Comment on above: Performed By: #### L IPID, T7, CMP, TSH #### [facility] [address] [place] [address] Dr. Jorge Glaser Calcium [Mass/Vol] 9.2 mg/dL Normal 8.5-10.1 [facility] Comment on above: Performed By: #### L IPID, T7, CMP, TSH #### [facility] [address] [place] [address] Dr. Jorge Glaser Chloride [Moles/Vol] 99 mmol/L Normal 98-107 [facility] Comment on above: Performed By: #### L IPID, T7, CMP, TSH #### [facility] [address] [place] [address] Dr. Jorge Glaser CO2 [Moles/Vol] 32.2 mmol/L Critically high 21.0-32.0 [facility] Comment on above: Performed By: #### L IPID, T7, CMP, TSH #### [facility] [address] [place] [address] Dr. Jorge Glaser Creatinine [Mass/Vol] 0.78 mg/dL Normal 0.55-1.02 [facility] Comment on above: Performed By: #### L IPID, T7, CMP, TSH #### [facility] [address] [place] [address] Dr. Jorge Glaser EGFR-AF DOMINICAN >60 Normal >=60 [facility] Comment on above: Performed By: #### L IPID, T7, CMP, TSH #### [facility] [address] [place] [address] Dr. Jorge Glaser EGFR-NON AF DOMINICAN >60 Normal >=60 [facility] Comment on above: Performed By: #### L IPID, T7, CMP, TSH #### [facility] [address] [address] [address] Jorge Glaser Globulin (S) [Mass/Vol] 3.2 g/dL Normal [facility] Comment on above: Performed By: #### L IPID, T7, CMP, TSH #### [facility] [address] [address] [address] Jorge Glaser Glucose [Mass/Vol] 100 mg/dL Normal 74-106 [facility] Comment on above: Performed By: #### L IPID, T7, CMP, TSH #### [facility] [address] [address] [address] Jorge Glaser Potassium [Moles/Vol] 3.2 mmol/L Critically low 3.5-5.1 [facility] Comment on above: Performed By: #### L IPID, T7, CMP, TSH #### [facility] [address] [address] [address] Jorge Glaser Protein [Mass/Vol] 6.7 g/dL Normal 6.4-8.2 [facility] Comment on above: Performed By: #### L IPID, T7, CMP, TSH #### [facility] [address] [address] [address] Jorge Glaser Sodium [Moles/Vol] 138 mmol/L Normal 136-145 [facility] Comment on above: Performed By: #### L IPID, T7, CMP, TSH #### [facility] [address] [place] [address] Dr. Jorge Glaser Urea nitrogen [Mass/Vol] 17.0 mg/dL Normal 7.0-18.0 [facility] Comment on above: Performed By: #### L IPID, T7, CMP, TSH #### [facility] [address] [place] [address] Dr. Jorge Glaser Urea nitrogen/Creatinine [Mass ratio] 21.8 mg/mg Normal [facility] Comment on above: Performed By: #### L IPID, T7, CMP, TSH #### [facility] [address] [address] [address] Jorge Glaser TSHon 09-01-2022 TSH 4.483 uIU/mL Critically high 0.358-3.740 [facility] Comment on above: Performed By: #### L IPID, T7, CMP, TSH #### [facility] [address] [address] [address] Jorge Glaser XR DEXA BONE DENSITYon [...] by: KD DALY Date: 2022-08-27 16:23 Normal [facility] CBC AUTO DIFFon 05-22-2022 BASO # 0.1 103/ul Normal 0.0-0.1 [facility] Comment on above: Performed By: #### L IPID, T7, CMP, TSH #### [facility] [address] [address] [address] Jorge Glaser Basophils/100 WBC (Bld) 0.5 % Normal 0.2-2.0 [facility] Comment on above: Performed By: #### L IPID, T7, CMP, TSH #### [facility] [address] [address] [address] Jorge Glaser EO # 0.2 103/ul Normal 0.0-0.7 [facility] Comment on above: Performed By: #### L IPID, T7, CMP, TSH #### [facility] [address] [place] [address] Dr. Jorge Glaser Eosinophils/100 WBC (Bld) 2.0 % Normal 0.9-7.0 [facility] Comment on above: Performed By: #### L IPID, T7, CMP, TSH #### [facility] [address] [place] [address] Dr. Jorge Glaser Erythrocyte distribution width (RBC) [Ratio] 14.1 % Normal 11.0-15.0 [facility] Comment on above: Performed By: #### L IPID, T7, CMP, TSH #### [facility] [address] [place] [address] Dr. Jorge Glaser Hematocrit (Bld) [Volume fraction] 42.2 % Normal 36.0-48.0 [facility] Comment on above: Performed By: #### L IPID, T7, CMP, TSH #### [facility] [address] [place] [address] Dr. Jorge Glaser Hemoglobin (Bld) [Mass/Vol] 14.2 g/dL Normal 12.0-16.0 [facility] Comment on above: Performed By: #### L IPID, T7, CMP, TSH #### [facility] [address] [place] [address] Dr. Jorge Glaser IG # 0.08 10e3/ul Critically high 0.00-0.03 [facility] Comment on above: Performed By: #### L IPID, T7, CMP, TSH #### [facility] [address] [place] [address] Dr. Jorge Glaser IG % 0.8 % Critically high 0.0-0.5 [facility] Comment on above: Performed By: #### L IPID, T7, CMP, TSH #### [facility] [address] [place] [address] Dr. Jorge Glaser LYMPH # 1.2 103/ul Normal 1.2-3.8 [facility] Comment on above: Performed By: #### L IPID, T7, CMP, TSH #### [facility] [address] [place] [address] Dr. Jorge Glaser Lymphocytes/100 WBC (Bld) 11.9 % Critically low 20.5-60.0 [facility] Comment on above: Performed By: #### L IPID, T7, CMP, TSH #### [facility] [address] [address] [address] Jorge Glaser MANUAL DIFF REQ NO Normal [facility] Comment on above: Performed By: #### L IPID, T7, CMP, TSH #### [facility] [address] [address] [address] Jorge Glaser MCH (RBC) [Entitic mass] 30.8 pg Normal 26.7-34.0 [facility] Comment on above: Performed By: #### L IPID, T7, CMP, TSH #### [facility] [address] [place] [address] Dr. Jorge Glaser MCHC (RBC) [Mass/Vol] 33.6 g/dL Normal 29.9-35.2 [facility] Comment on above: Performed By: #### L IPID, T7, CMP, TSH #### [facility] [address] [address] [address] Jorge Glaser MCV (RBC) [Entitic vol] 91.5 fL Normal 81.0-99.0 [facility] Comment on above: Performed By: #### L IPID, T7, CMP, TSH #### [facility] [address] [place] [address] Dr. Jorge Glaser MONO # 0.5 103/ul Normal 0.3-0.8 [facility] Comment on above: Performed By: #### L IPID, T7, CMP, TSH #### [facility] [address] [place] [address] Dr. Jorge Glaser Monocytes/100 WBC (Bld) 5.0 % Normal 1.7-12.0 [facility] Comment on above: Performed By: #### L IPID, T7, CMP, TSH #### [facility] [address] [place] [address] Dr. Jorge Glaser NEUT # 8.3 103/ul Critically high 1.4-6.5 [facility] Comment on above: Performed By: #### L IPID, T7, CMP, TSH #### [facility] [address] [address] [address] Jorge Glaser Neutrophils/100 WBC (Bld) 79.8 % Critically high 43.0-75.0 [facility] Comment on above: Performed By: #### L IPID, T7, CMP, TSH #### [facility] [address] [place] [address] Dr. Jorge Glaser Platelet mean volume (Bld) [Entitic vol] 9.0 fL Critically low 9.5-13.5 [facility] Comment on above: Performed By: #### L IPID, T7, CMP, TSH #### [facility] [address] [place] [address] Dr. Jorge Glaser PLT 154 103/ul Normal 150-450 [facility] Comment on above: Performed By: #### L IPID, T7, CMP, TSH #### [facility] [address] [place] [address] Dr. Jorge Glaser RBC 4.61 106/ul Normal 4.20-5.40 [facility] Comment on above: Performed By: #### L IPID, T7, CMP, TSH #### [facility] [address] [place] [address] Dr. Jorge Glaser WBC 10.4 103/ul Normal 4.0-11.0 [facility] Comment on above: Performed By: #### L IPID, T7, CMP, TSH #### [facility] [address] [place] [address] Dr. Jorge Glaser PROF CHEM 8 (BAS METB)on Anion gap [Moles/Vol] 9.0 mmol/L Normal [facility] Comment on above: Performed By: #### L IPID, T7, CMP, TSH #### [facility] [address] [place] [address] Dr. Jorge Glaser Calcium [Mass/Vol] 10.0 mg/dL Normal 8.5-10.1 [facility] Comment on above: Performed By: #### L IPID, T7, CMP, TSH #### [facility] [address] [address] [address] Jorge Glaser Chloride [Moles/Vol] 94 mmol/L Critically low 98-107 [facility] Comment on above: Performed By: #### L IPID, T7, CMP, TSH #### [facility] [address] [place] [address] Dr. Jorge Glaser CO2 [Moles/Vol] 31.4 mmol/L Normal 21.0-32.0 [facility] Comment on above: Performed By: #### L IPID, T7, CMP, TSH #### [facility] [address] [place] [address] Dr. Jorge Glaser Creatinine [Mass/Vol] 0.69 mg/dL Normal 0.55-1.02 [facility] Comment on above: Performed By: #### L IPID, T7, CMP, TSH #### [facility] [address] [place] [address] Dr. Jorge Glaser EGFR-AF DOMINICAN >60 Normal >=60 [facility] Comment on above: Performed By: #### L IPID, T7, CMP, TSH #### [facility] [address] [place] [address] Dr. Jorge Glaser EGFR-NON AF DOMINICAN >60 Normal >=60 [facility] Comment on above: Performed By: #### L IPID, T7, CMP, TSH #### [facility] [address] [place] [address] Dr. Jorge Glaser Glucose [Mass/Vol] 129 mg/dL Critically high 74-106 [facility] Comment on above: Performed By: #### L IPID, T7, CMP, TSH #### [facility] [address] [place] [address] Dr. Jorge Glaser Potassium [Moles/Vol] 3.4 mmol/L Critically low 3.5-5.1 [facility] Comment on above: Performed By: #### L IPID, T7, CMP, TSH #### [facility] [address] [place] [address] Dr. Jorge Glaser Sodium [Moles/Vol] 131 mmol/L Critically low 136-145 [facility] Comment on above: Performed By: #### L IPID, T7, CMP, TSH #### [facility] [address] [address] [address] Jorge Glaser Urea nitrogen [Mass/Vol] 17.0 mg/dL Normal 7.0-18.0 [facility] Comment on above: Performed By: #### L IPID, T7, CMP, TSH #### [facility] [address] [place], [place] [address] Dr. Jorge Glaser Urea nitrogen/Creatinine [Mass ratio] 24.6 mg/mg Normal [facility] Comment on above: Performed By: #### L IPID, T7, CMP, TSH #### [facility] [address] [address] [address] Jorge Glaser NM STRESS/REST MULTIon 03-22 NM STRESS/REST MULTI Patient: KAREN GIFFORD Exam Date: 03/22/2022 : 1935 Gender:F Ordering : DR VINCENZO AUSTIN . Admission #: [id number] Family : CHILANGO NAIRER [facility] Order #: [id number] CLICK HERE TO VIEW EXAM RADIOLOGY REPORT [...] Rachel MD on 03/23/2022 at 11:42 Normal [facility] Vital Signs Date Time Vital Sign Value Performing Clinician Facility 04-19-2024 11:17-0400 Blood Pressure Location [facility] 04-19-2024 11:17-0400 Diastolic blood pressure 74 mm[Hg] [facility] 04-19-2024 11:17-0400 Heart rate 79 /min [facility] 04-19-2024 11:17-0400 Respiratory rate 16 /min [facility] 04-19-2024 11:17-0400 Systolic blood pressure 133 mm[Hg] [facility] 04-18-2024 10:04-0400 Diastolic blood pressure 78 mm[Hg] Wes Diaz MD Work Phone: [facility] 04-18-2024 10:04-0400 Heart rate 78 /min Wes Diaz MD Work Phone: [facility] 04-18-2024 10:04-0400 Respiratory rate 16 /min Wes Diaz MD Work Phone: [facility] 04-18-2024 10:04-0400 SaO2% (BldA) [Mass fraction] 99 % Wes Diaz MD Work Phone: [facility] 04-18-2024 10:04-0400 Systolic blood pressure 124 mm[Hg] Wes Diaz MD Work Phone: [facility] 04-18-2024 09:54-0400 Body weight 65.59 kg Wes Diaz MD Work Phone: [facility] 03-29-2024 13:57-0400 Body height 170.2 cm Kiko Jameson [employer] Work Phone: [facility] 03-29-2024 13:57-0400 Body mass index (BMI) [Ratio] 21.61 kg/m2 Kiko Jameson [employer] Work Phone: [facility] [facility] 03-29-2024 13:57-0400 Body weight 62.6 kg Kiko Jameson SHAKER PLATE OPERATOR Work Phone: [facility] 03-29-2024 13:57-0400 Diastolic blood pressure 68 mm[Hg] Kiko Jameson SHAKER PLATE OPERATOR Work Phone: [facility] 03-29-2024 13:57-0400 Heart rate 93 /min Kiko Jameson SHAKER PLATE OPERATOR Work Phone: [facility] 03-29-2024 13:57-0400 Systolic blood pressure 114 mm[Hg] Kiko Jameson SHAKER PLATE OPERATOR Work Phone: [facility] 06-28-2023 13:37-0500 Body height 170.2 cm Jay Guerra MD Work Phone: [facility] 06-28-2023 13:37-0500 Diastolic blood pressure 60 mm[Hg] Jay Guerra MD Work Phone: [facility] 06-28-2023 13:37-0500 Heart rate 77 /min Jay Guerra MD Work Phone: [facility] 06-28-2023 13:37-0500 Systolic blood pressure 90 mm[Hg] Jay Guerra MD Work Phone: [facility] Encounters Encounter Date Encounter Type Care Provider Facility Start: 05-17-2025 End: 05-17-2025 ambulatory Vincenzo Austin MD Facility:[facility] Start: 03-15-2025 ambulatory JENNIFER COTTRELL [facility] Start: 01-30-2025 End: 01-30-2025 ambulatory [facility] Start: 12-21-2024 ambulatory [facility] Start: 12-13-2024 End: 12-13-2024 [facility] Start: 12-07-2024 ambulatory [facility] Start: 12-04-2024 End: 12-04-2024 ambulatory [facility] Start: 11-21-2024 End: 11-21-2024 Office outpatient visit 25 minutes Abimbola Chacon MD Work Phone: [facility] [place] Comment on above: Primary open-angle g laucoma, bilateral, indeterminate stage (Primary Dx); Dry eye syndrome of bilateral lacrimal glands Start: 11-21-2024 ambulatory SELF SELF Facility:[facility] Start: 06-26-2024 End: 06-26-2024 ambulatory [facility] Start: 06-04-2024 End: 06-04-2024 Office outpatient visit 15 minutes Abimbola Chacon MD Work Phone: [facility] [place] Comment on above: Primary open-angle g laucoma, bilateral, indeterminate stage (Primary Dx) Start: 06-04-2024 ambulatory VINCENZO AUSTIN Facility: [facility] Start: 05-31-2024 End: 05-31-2024 ambulatory [facility] Start: 05-31-2024 End: 05-31-2024 ambulatory AD[facility] Start: 05-09-2024 End: 05-09-2024 ambulatory Avtar TUCKER Facility:[id number] Start: 04-20-2024 End: 04-20-2024 Orders Only Lou RAZO Work Phone: [facility] Start: 04-19-2024 End: 04-19-2024 ambulatory Avtar TUCKER Facility:[facility] Start: 04-19-2024 End: 04-19-2024 Patient encounter procedure Avtar TUCKER [facility] [place] Start: 04-18-2024 End: 04-18-2024 ambulatory [facility] Start: 04-18-2024 End: 04-18-2024 Office outpatient new 60 minutes Wes Diaz MD Work Phone: [facility] Comment on above: Cyst of right ovary (Primary Dx); Elevated cancer antigen 125 (CA 125) Start: 04-18-2024 End: 04-18-2024 ambulatory [facility] Start: 03-29-2024 End: 04-02-2024 ambulatory [facility] Start: 03-29-2024 End: 03-29-2024 Office outpatient visit 40 minutes Kiko Barba CNP Work Phone: [facility] Comment on above: Persistent atrial fi brillation (HCC) (Primary Dx); PAF (paroxysmal atrial fibrillation) (HCC); SSS (sick sinus syndrome) (HCC); Presence of cardiac pacemaker; Pericardial effusion; Pleural effusion Start: 03-29-2024 End: 03-30-2024 ambulatory [facility] Start: 03-27-2024 End: 03-27-2024 Orders Only Kiko Barba CNP Work Phone: [facility] Comment on above: PAF (paroxysmal atri al fibrillation) (HCC) (Primary Dx) Start: 03-08-2024 End: 03-08-2024 Telephone encounter Wes Diaz MD Work Phone: [facility] Comment on above: Reschedule appt Start: 03-05-2024 End: 03-05-2024 Telephone encounter Jenny Rocha RN [facility] Start: 02-02-2024 Orders Only Jay Guerra MD Work Phone: [facility] Comment on above: PAF (paroxysmal atri al fibrillation) (HCC) (Primary Dx); Presence of cardiac pacemaker Start: 01-02-2024 End: 01-02-2024 ambulatory LORIE PARK Not Available Start: 12-01-2023 End: 12-01-2023 Office outpatient visit 15 minutes Abimbola Chacon MD Work Phone: [facility] Comment on above: Primary open-angle g laucoma, bilateral, indeterminate stage (Primary Dx) Start: 12-01-2023 ambulatory VINCENZO AUSTIN Facility: [facility] Start: 11-23-2023 End: 12-08-2023 ambulatory [facility] Start: 06-28-2023 End: 06-29-2023 ambulatory [facility] Start: 06-28-2023 End: 06-28-2023 Office outpatient new 60 minutes Jay Guerra MD Work Phone: [facility] Comment on above: PAF (paroxysmal atri al fibrillation) (HCC) (Primary Dx); Presence of cardiac pacemaker; SSS (sick sinus syndrome) (HCC); Hypertension, unspecified type; Heart failure with preserved ejection fraction, unspecified HF chronicity (HCC) Start: 06-28-2023 End: 06-29-2023 ambulatory JAY GUERRA [facility] Ambulatory Start: 06-23-2023 Orders Only Jay Guerra MD Work Phone: [facility] Comment on above: PAF (paroxysmal atri al fibrillation) (HCC) (Primary Dx) Start: 05-31-2023 End: 05-31-2023 Office outpatient new 45 minutes Abimbola Chacon MD Work Phone: [facility] Comment on above: Primary open-angle g laucoma, bilateral, indeterminate stage (Primary Dx); PCO (posterior capsular opacification), left Start: 03-09-2023 End: 03-10-2023 ambulatory VINCENZO AUSTIN [facility] Start: 12-27-2022 End: 12-28-2022 ambulatory CHILANGO YOUSIF Facility: Start: 12-01-2022 End: 12-02-[address] VINCENZO [...] Date Procedure Procedure Detail Performing Clinician Start: 11-21-2024 Visual field xm uni/bi w/interp extended exam Abimbola Chacon MD Work Phone: Start: 06-04-2024 Computerized ophthalmic imaging optic nerve Abimbola Chacon MD Work Phone: Start: 03-29-2024 Ecg routine ecg w/least 12 lds w/i&r Kiko Barba CNP Work Phone: Start: 12-01-2023 Visual field xm uni/bi w/interp extended exam Abimbola Chacon MD Work Phone: Start: 10-14-2023 Esophagogastroduodenoscopy Avtar TUCKER Start: 06-28-2023 Ecg routine ecg w/least 12 lds w/i&r Jay Guerra MD Work Phone: Start: 05-31-2023 Computerized ophthalmic imaging optic nerve Abimbola Chacon MD Work Phone: Start: 05-31-2023 Post-cataract laser surgery Abimbola galvan MD Work Phone: Start: 07-15-2015 Colonoscopy Avtar TUCKER Start: 07-15-1985 Abdominal hysterectomy Abdominal hysterectomy Avtar TUCKER Start: 08-15-1965 Laparoscopic cholecystectomy Laparoscopic cholecystectomy Avtar TUCKER Appendectomy Avtar TUCKER Arthroscopy of knee Avtar TUCKER Comment on above: right Cholecystectomy Avtar TUCKER Dilation and curettage of uterus Avtar TUCKER Insertion of permane nt cardiac pacemaker pulse generator and electrode Avtar TUCKER Tonsillectomy and adenoidectomy Avtar TUCKER Vaginal hysterectomy Avtar TUCKER Plan of Treatment Date Care Activity Detail Author Start: 06-09-2032 DTaP,Tdap and Td Vac cines (4 - Td or Tdap) DTaP,Tdap and Td Vaccines (4 - Td or Tdap) [facility] Start: 06-09-2032 Tetanus vaccination [facility] Start: 05-27-2025 End: 05-27-2025 Patient encounter procedure 05/27/2025 3:00 PM EDT Office Visit [facility] [place] [address] [place] [address] Abimbola Chacon MD [address] [place] [address] [facility] [place] Start: 04-15-2025 Influenza vaccination INFLUENZ A VACCINE (Season Ended) [facility] Start: 03-13-2025 End: 03-13-2025 ambulatory 03/13/2025 1:15 PM EDT Device Check OP [facility] [address] [place] [address] [facility] Start: 07-02-2024 End: 07-02-2024 ambulatory 07/02/2024 3:30 PM EST Device Check OP [facility] [address] [place] [phone] [facility] Start: 06-28-2024 CLASS III : OFFICE VISIT CLASS III : OFFICE VISIT [facility] Start: 06-04-2024 End: 06-04-2024 Patient encounter procedure 06/04/2024 3:30 PM EDT Office Visit [facility] [place] [address] [place] [address] Abimbola Chacon MD [address] [place] [address] [facility] [place] Start: 04-15-2024 COVID-19 VACCINE ( season) COVID-19 VACCINE ( season) [facility] Start: 04-15-2024 COVID-19 VACCINE ( season) COVID-19 VACCINE ( season) [facility] Start: 04-15-2024 COVID-19 Vaccine ( season) COVID-19 Vaccine ( season) [facility] Start: 04-15-2024 [facility] Start: 03-29-2024 End: 03-29-2024 Patient encounter procedure 03/29/2024 2:10 PM EDT Office Visit [facility] [address] [place] [phone] Kiko Barba CNP [address] [place] [address] [facility] Start: 03-27-2024 End: 03-27-2025 12 lead ECG ECG 12 lead ECG Routine PAF (paroxysmal atrial fibrillation) (HCC) Expected: 03/27/2024, Expires: 03/27/2025 [facility] Work Phone: Comment on above: Expected: 03/27/2024 , Expires: 03/27/2025 Start: 03-21-2024 End: 03-21-2024 Patient encounter procedure 03/21/2024 11:00 AM EDT Office Visit [facility] [address] [place] [phone] Wes Diaz MD [address] [place] [address] [facility] Start: 03-14-2024 End: 03-14-2024 Patient encounter procedure [facility] Start: 02-21-2024 End: 02-21-2024 Patient encounter procedure 02/21/2024 7:00 AM EDT Appointment [facility] [address] [place] [phone] Simone Campoverde MD [address] [place] [address] [facility] Start: 12-27-2023 End: 12-27-2023 Patient encounter procedure 12/27/2023 1:50 PM EDT Office Visit [facility] [address] [place] [address] Jay Guerra MD [address] [place] [address] [facility] Start: 12-01-2023 End: 12-01-2023 Patient encounter procedure 12/01/2023 10:30 AM EDT Office Visit [facility] [place] [address] [place] [phone] Abimbola Chacon MD [address] [place] [address] [facility] [place] [facility] [place] Start: 09-26-2023 COVID-19 Vaccine ( season) COVID-19 Vaccine ( season) [facility] Start: 06-28-2023 End: 06-28-2023 Patient encounter procedure 06/28/2023 1:00 PM EST Office Visit [facility] [address] [place] [phone] Jay Guerra MD [address] [place] [address] [facility] Start: 04-15-2023 COVID-19 VACCINE ( season) COVID-19 VACCINE ( season) [facility] Start: 04-15-2023 Influenza vaccination Sequenti al Influenza Vaccine (#1) [facility] Start: 01-23-2015 Screening for malign ant neoplasm of breast MAMMOGRAM SCREENING DISCUSSION [facility] Start: 2002 Fall risk assessment Falls Risk Asse ssment [facility] Start: 2002 Fall Risk Screening Fall Risk Screen ing [facility] Start: 2002 Pneumococcal vaccination [facility] Start: 2002 Pneumococcal Vaccine : Age 65+ (1 - PCV) Pneumococcal Vaccine: Age 65+ (1 - PCV) [facility] Start: 2002 Pneumococcal Vaccine : Age 65+ (1 of 1 - PCV) Pneumococcal Vaccine: Age 65+ (1 of 1 - PCV) [facility] Start: 1987 Administration of he rpes zoster vaccine Zoster Vaccines (1 of 2) [facility] Start: 1987 Administration of varicella zoster vaccine Zoster (Shingles) Vaccine (1 of 2) [facility] Start: 1987 Pneumococcal vaccination PNEUM OCOCCAL VACCINE SERIES (1 of 1 - PCV) [facility] Start: 1987 Zoster vaccine hzv l trace for subcutaneous use ZOSTER (SHINGLES) VACCINE (1 of 2) [facility] Start: 1982 Screening for malign ant neoplasm of colon COLORECTAL CANCER SCREENING DISCUSSION [facility] Start: 1958 Screening for malign ant neoplasm of cervix CERVICAL CANCER SCREENING DISCUSSION [facility] Start: 1956 DTaP,Tdap and Td Vac cines (1 - Tdap) DTaP,Tdap and Td Vaccines (1 - Tdap) [facility] Start: 1955 Adult BMI Screening Adult BMI Screen ing [facility] Start: 1949 Depression screening using PHQ-9 (Patient Health Questionnaire 9) score [facility] Start: 1949 Tobacco Screening Tobacco Screening [facility] Start: 1943 Pneumococcal Vaccine : Age 65+ (1 of 2 - PCV) Pneumococcal Vaccine: Age 65+ (1 of 2 - PCV) [facility] Start: 1940 History and physical examination, annual for health maintenance Wellness Visit [facility] Start: 1940 Medicare Wellness Visit Medicare Wel lness Visit [facility] Start: 1937 Alanine aminotransfe rase measurement CLASS III : ALT [facility] Start: 1937 CLASS III : AST CLASS III : AST [facility] Start: 1937 CLASS III : CXR CLASS III : CXR [facility] Start: 1937 CLASS III : EKG CLASS III : EKG [facility] Start: 1937 CLASS III : PFT CLASS III : PFT [facility] Start: 1937 Medicare Annual Well ness Visit Medicare Annual Wellness Visit [facility] Start: 1937 Potassium [Moles/vol ume] in Serum or Plasma POTASSIUM [facility] Start: 1937 Screening for osteoporosis [facility] Start: 1937 Thyroid stimulating hormone measurement [facility] End: 06-23-2024 12 lead ECG ECG 12 lead ECG Routine PAF (paroxysmal atrial fibrillation) (HCC) 1 Occurrences starting 06/23/2023 until 06/23/2024 [facility] Work Phone: Comment on above: 1 Occurrences starti ng 06/23/2023 until 06/23/2024 End: 02-01-2025 12 lead ECG ECG 12 lead ECG Routine PAF (paroxysmal atrial fibrillation) ([facility]) Presence of cardiac pacemaker 4 Occurrences starting 02/02/2024 until 02/01/2025 [facility] Work Phone: Comment on above: 4 Occurrences starti ng 02/02/2024 until 02/01/2025 12 lead ECG ECG 12 lead ECG Routine PAF (paroxysmal atrial fibrillation) ([facility]) 03/29/2024 1:48 PM EDT [facility] Work Phone: Ophthalmic us dx [facility] pachymetry uni/bi PACHYMETRY-OU DC Charge Routine Primary open-angle glaucoma, bilateral, indeterminate stage Ordered: 05/31/2023 [facility] Comment on above: Ordered: 05/31/2023 Immunizations Immunization Date Immunization Notes Care Provider Fa [facility] 05-26-2023 influenza virus vaccine, unspecified formulation Kiko Jameson [facility] Work Phone: [facility] 04-29-2022 SARS-CoV-2 (COVID-19 ) [id number] Avtar TUCKER [facility] 11-25-2021 SARS-CoV-2 mRNA (byrfbnzjjrm-fzvs-sxtmc se) vaccine Avtar TUCKER [facility] 06-10-2021 SARS-CoV-2 (COVID-19 ) mRNA BNT-162b2 vax Avtar TUCKER [facility] Comment on above: Result Comment: 2023: [id number] 10-02-2020 SARS-CoV-2 (COVID-19 ) mRNA-1273 vaccine Avtar TUCKER [facility] 01-21-2021 SARS-CoV-2 (COVID-19 ) [id number] vaccine Avtar TUCKER [facility] Payers Date Payer Category Payer Managed Care (unspecified) MEDICARE SUPPLEMENT [id number] 2023 Unknown GENERIC PAYOR ME DICARE SUPPLEMENT [id number] 2023-Present [address] [place] [id number] 2016 Private Health Insurance [id number] 2002 Medicare [id number] 1959 Medicare [id number] 1959 Private Health Insurance [id number] 1937 Unknown [id number] 2.16.840.1.777313.3.579.2 .593 1937 Unknown [id number] 2.16.840.1.516244.3.579.2 .593 1937 Unknown [id number] 2.16.840.1.326647.3.579.2 .593 1937 Unknown [id number] 2.16.840.1.119931.3.579.2 .593 1937 Unknown [id number] 2.16.840.1.046933.3.579.2 .593 1937 Unknown [id number] 2.16.840.1.862391.3.579.2 .593 1937 Unknown [id number] 2.16.840.1.820234.3.579.2 .593 1937 Unknown [id number] 2.16.840.1.396763.3.579.2 .593 1937 Unknown [id number] 2.16.840.1.199395.3.579.2 .593 1937 Unknown [id number] 2.16.840.1.389738.3.579.2 .593 1937 Unknown [id number] 2.16.840.1.446014.3.579.2 .173 1937 Unknown [id number] 2.16.840.1.787910.3.579.2 .900 1937 Unknown [id number] 2.16.840.1.588386.3.579.2 .900 1937 Unknown [id number] 2.16.840.1.263891.3.579.2 .1259 1937 Unknown [id number] 2.16.840.1.921144.3.579.2 .903 1937 Unknown [id number] 2.16.840.1.605493.3.579.2 .903 1937 Unknown [id number] 2.16.840.1.911068.3.579.2 .903 1937 Unknown [id number] 2.16.840.1.599752.3.579.2 .1286 1937 Unknown [id number] 2.16.840.1.911102.3.579.2 .1286 1937 Unknown [id number] 2.16.840.1.440571.3.579.2 .727 1937 Unknown [id number] 2.16.840.1.437780.3.579.2 .727 1937 Unknown [id number] 2.16.840.1.567279.3.579.2 .594 1937 Unknown [id number] 2.16.840.1.707608.3.579.2 .594 1937 Unknown [id number] 2.16.840.1.170132.3.579.2 .594 1937 Unknown [id number] 2.16.840.1.236416.3.579.2 .196 Medicare [id number] Social History Date Type Detail Facility Start: 05-31-2023 End: 04-19-2024 Tobacco smoking status NHIS Never smoked tobacco [facility] Start: 05-31-2023 End: 06-28-2023 Tobacco use and exposure Smokeless tobacco non-user [facility] Start: 05-31-2023 End: 11-21-2024 Alcohol intake Ex-drinker (finding) [facility] Start: 05-31-2023 End: 11-21-2024 History of Social function [facility] Start: 05-31-2023 End: 11-21-2024 Tobacco use panel [facility] Start: 1935 Sex Assigned At Not on file [facility] Tobacco smoking status GAIS Tobacco smoking consumption unknown [facility] Start: 06-28-2023 End: 03-29-2024 Alcohol intake Lifetime non-drinker (finding) [facility] Tobacco smoking status Never [facility] [place] Start: 01-14-2022 Sex Female (finding) [place] [facility] Procedure Code Equipment Code Equipment Origin al Text Equipment Identifier Dates Acclarent [id number] Edora 8 Chrissy [id number] Start: 05-12-2022 Acclarent 377 17 7 Solia S 53 [id number] Start: 05-12-2022 Acclarent 377 17 6 Solia S 45 [id number] Start: 05-12-2022 Functional Status Date Assessment Result Facility 04-19-2024 Functional Status N/A [facility] [place] Clinical Notes 03-22-2022 to 05-17-2025 Kimberly العلي - 11/21/2024 3:15 PM Oneil Chacon MD - 11/21/2024 3:15 PM EDCristin Ellis - 06/04/2024 3:30 PM Oneil Chacon MD - 06/04/2024 3:30 PM EDTPatient Instructions Note Date & Type Note Facility 05-17-2025 Note - Pre Culture in progress [facility] Comment on above: Performed By: #### F C #### [place] [address] 05-15-2025 Note Cardiovascular Medic [facility] #Cardiac risk stratification -RCRI: 1 points, RCRI Score 1.1 % Risk of major cardiac event -ECHO 02/2025: preserved LVEF -EKG 05/15/25: V paced, underlying a.fib, rate controlled -She reported METS >4 when I last saw her in clinic on 12/13/24. -CXR 05/15/2025: no acute abnormalities, labs 05/15/2025 - unremarkable. -Pt is at low risk for a cardiovascular event for a low risk procedure. No objections for thumb nail debridement from a cardiac standpoint. -Okay to hold Xarelto 2 days prior to procedure and resume as soon as cleared by surgeon. Chilango Yousif APRN-SHAKER PLATE OPERATOR [facility] Cardiovascular Medicine [facility] 01-30-2025 Note Attestation signed by Juan Casillas MD at 02/04/2025 12:57 AM I reviewed the salient portions of the patient history. I have seen and examined the patient with the resident/fellow Dr. Almeida on 01/30. I repeated the jessica components of the exam. Agree with the noted assessment and plan. Juan Casillas MD [facility] Pulmonary and Critical Care Medicine Pulmonary Clinic Visit Note Patient: Karen Gifford Age: 89 y.o. : 1935 Account No.: [id number] Follow up visit Last visit 03/2024 HPI [...] middle lobe measuring up to 4 mm (/). Noncalcified 7 mm lung nodule right middle [...] lobe. Past Medical History: Diagnosis Date A-fib (CMS/[facility]) Abnormal ECG Cancer ([facility]/HCC) CVA (cerebral vascular accident) (CMS/[facility]) GERD (gastroesophageal reflux disease) Hyperlipidemia Hypertension [...] no wheeze, no sputum production CV: no c (more content not included)... [facility] 12-13-2024 Note Cardiovascular Medic [facility] SUBJECTIVE Chief Complaint Patient presents with Atrial Fibrillation Hypertension Karen Gifford is a 89 y.o. female here for follow-up after her recent admission to [facility]. HPI PMHx: persistent a.fib, sinus node dysfunction s/p PPM 2021, GERD, HTN, LANEY, HLD, CPAP, hx COVID 06/2020, HFpEF, pericardial effusion 12/13/2024 Patient is here for a 6 month follow up. Patient states she went to Dr. Austin's office 2 weeks ago. Patient states he [...] got back a [place] weeks ago [place] [employer], they went to [place] for a couple [...] Epidermal inclusion cyst Fibrocystic breast History of CO (myocardial infarction) Hypothyroidism Iron deficiency anemia Osteopenia [...] Ear: External ear normal. Eyes: Extraocular Movements: Extraocula (more content not included)... [facility] 12-13-2024 Note Patient is here for a 6 month follow up. Patient states she went to Dr. Austin's office 2 weeks ago. Patient states he [...] palpitations (heart pounding). Musculoskeletal: Positive for arthritis. [facility] 11-21-2024 History of Present illness Narrative REASON FOR VISIT Karen Gifford presents to clinic today for a Established Patient visit. Chief Complaint Follow-up HISTORY OF PRESENT ILLNESS HPI 5+ months Primary Open Angle Glaucoma Follow-up; HVF Patient asked about problems with loss of vision, eye pain/irritation, redness and discharge. The patient denies all except for the following: patient states eyes have been feeling more dry recently and states her left eye today feels like something is it in. Patient says she has been trying to use Artificial Tears 3-4x/day both eyes. Notes she bought some new drops that were gel tears but it smeared her vision too much. Last edited by Kimberly العلي on 11/21/2024 3:23 PM. Allergies, medications & history reviewed & updated by Kimberly العلي REVIEW OF SYSTEMS Review of Systems Constitutional: Negative for chills, fatigue and fever. HENT: Positive for hearing loss. Negative for tinnitus. Eyes: Negative for photophobia, pain, redness and visual disturbance. Dryness Respiratory: Negative for cough and shortness of breath. Cardiovascular: Positive for palpitations. Negative for chest pain. Gastrointestinal: Negative for abdominal pain, nausea and vomiting. Musculoskeletal: Positive for back pain and joint swelling. Negative for neck pain. Neurological: Negative for dizziness and headaches. Hematological: Bruises/bleeds easily. Psychiatric/Behavioral: The patient is nervous/anxious (sometimes). Referring Physician: Self, Self Hx; 89 yo female with hx of CE done [...] ROS: complete review of systems performed by watch technician, reviewed by me. OCT: follow up, good quality, shows moderate inferior thinning OU by GCC and RNFL HVF: baseline, good quality, shows peripheral defects OU CCT: thin at 510, 530 Meds: timolol bid OU, holding latanoprost at bedtime OU A/P 1)POAG: IOP is doing fine on meds at this point, would monitor for stability. RTC In 6 mo's for IOP check and OCT, sooner PRN. 2)PCO: resolved OS. 3)Dry eye; discussed use of lid hygiene and AT's. documented in this encounter [facility] 06-26-2024 Note [facility] Electrophysiology Consult Note Reason for [...] to notes she was last seen by Jay Moore in March 2024 and at that [...] Xarelto. 05/06/23 patient was recently seen by Zhao [...] fib with varying intervals Echocardiogram performed at [facility] on 12/25/2021 showed EF of 55 [...] HTN, LANEY, HLD FMHx: mother - hx CO ETOH: denies Tobacco: denies Illicit drugs: denies [...] Year: Not on file Number of Places (more content not included)... [facility] 06-04-2024 History of Present illness Narrative REASON FOR VISIT Karen Gifford presents to clinic today for a Follow-Up Patient visit. HISTORY OF PRESENT ILLNESS HPI Karen Gifford, a 89 y.o. female is present today for a 6 month follow-up for IOP check with OCT. POH of POAG. Asked about problems with loss of vision, changes or decreased vision, glare, eye pain/irritation, itching, flashes of light, floaters, excessive tearing, redness and discharge. Patient reports that vision is unchanged since last visit and denies all complaints at this time. Pt states that the eyes are doing much better after stopping the Latanoprost. CURRENT OCULAR MEDICATIONS/TREATMENTS: Timolol BID OU @ 7:53 am Last edited by Kulwant Ellis on 06/04/2024 3:36 PM. Allergies, medications & history reviewed & updated by Kulwant Ellis REVIEW OF SYSTEMS Review of Systems Constitutional: Negative for chills and fever. Eyes: Negative for pain. 10 minutes of face to face time was spent with patient performing the watch technician work of this visit. Hx; 89 yo female with hx of CE done [...] ROS: complete review of systems performed by watch technician, reviewed by me. OCT: follow up, good quality, shows moderate inferior thinning OU by GCC and RNFL HVF: baseline, good quality, shows peripheral defects OU CCT: thin at 510, 530 Meds: timolol bid OU, latanoprost at bedtime OU A/P 1)POAG: IOP is doing fine on meds at this point, would monitor for stability. RTC In 6 mo's for IOP check and HVF, sooner PRN. 2)PCO: resolved OS. documented in this encounter [facility] 05-31-2024 Note Attestation signed by Juan Casillas MD at 06/11/2024 1:56 PM I reviewed the salient portions of the patient history. I have seen and examined the patient with the resident/fellow Dr. Taylor on 05/31. I repeated the jessica components of the exam. Agree with the noted assessment and plan. Juan Casillas MD [facility] Pulmonary and Critical Care Medicine Pulmonary Clinic Visit Note Patient: Karen Gifford Age: 89 y.o. : 1935 Account No.: [id number] Follow up visit Last visit 03/2024 HPI [...] lobe. Past Medical History: Diagnosis Date A-fib ([facility]) CVA (cerebral vascular accident) ([facility]) GERD (gastroesophageal reflux disease) Hyperlipidemia Hypertension [...] palpitations, no syncope GI: no abdominal pain, (more content not included)... [facility] 04-19-2024 Note General Surgery Offi ce/Clinic Note Chief Complaint consultation for anemia and positive occult stool HPI Staff 88 year old female presents on consultation from Dr. Austin for positive occult stool and anemia. Labs [...] 2014, wnl; patient had EGD 10/2023 in [place] due to upper abd pain, found gastritis, [...] breast History of chronic gastritis History of CO (myocardial infarction) HTN (hypertension) Hypothyroidism Iron deficiency anemia Mitral regurgitation Multiple pulmonary nodules LANEY (obstructive sleep apnea) Osteopenia Perica (more content not included)... [facility] Comment on above: Result Comment: Elec tronically Signed By: CAITLIN CORDON, Avtar Priest\Date and Time Signed: 04/19/24 13:12 EDT 04-18-2024 History of Present illness Narrative Subjective: Karen is a 89 y.o. female here for consultation from for evaluation and management of right ovarian cyst with an elevated CA 125 equal to 103. She is here for further treatment planning today. At the time that she was diagnosed with a cyst she was in the hospital with an exacerbation of COPD, we did discuss the CA 125 may be falsely elevated in inflammatory lung conditions. She currently has no symptoms from this pelvic cyst. We discussed repeating imaging and laboratory studies prior to any aggressive intervention. Oncology History No overview note Karen : Denies Early satiety Denies Abdominal distention Denies Leg swelling Denies Shortness of breath Denies Vaginal bleeding Denies Change in bowel habits Denies Change in bladder habits Denies Nausea and vomiting All other systems negative, unless specifically noted in HPI. Past Gynecologic History: OB History No obstetric history on file. No LMP recorded. Hormonal Contraceptives No HRT use No History of abnormal pap No No past surgical history on file. No past medical history on file. No family history on file. Social History Tobacco Use Smoking status: Not on file Smokeless tobacco: Not on file Substance Use Topics Alcohol use: Not on file Review of Symptoms: Pertinent items are noted in HPI. Objective: BP 124/78 Pulse 78 Resp 16 Wt 65.6 kg (144 lb 9.6 oz) SpO2 99% ECO- Asymptomatic General appearance: alert, appears stated age and cooperative Head: Normocephalic, without obvious abnormality, atraumatic Ears: normal TM's and external ear canals both ears Neck: no adenopathy, no carotid bruit, no JVD, supple, symmetrical, trachea midline and thyroid not enlarged, symmetric, no tenderness/mass/nodules Lungs: clear to auscultation bilaterally Breasts: normal appearance, no masses or tenderness Heart: regular rate and rhythm, S1, S2 normal, no murmur, click, rub or gallop Abdomen: abnormal findings: Soft, nontender, no rebound or guarding. Pelvic: Deferred today Extremities: extremities normal, atraumatic, no cyanosis or edema Pulses: 2+ and symmetric Skin: Skin color, texture, turgor normal. No rashes or lesions Lymph nodes: Cervical, supraclavicular, and axillary nodes normal. Neurologic: Grossly normal Labs: No results found for: WBC , RBC , HGB , HCT , MCH , MCHC , PLT , MPV , RDW No results found for: BUN , NA , K , CL , BICARBONATE , GLUCOSE , ALBUMIN , PROT , CA , ALKP , AST , LABBILI No results found for: GGT No results found for: LDH No results found for: MG No results found for: PHOS No results found for: URIC Assessment: Patient is diagnosed with Patient Active Problem List Diagnosis Cyst of right ovary Elevated cancer antigen 125 (CA 125) Plan: 1. The patient has a documented plan of care to address pain. 2. 5.1 cm, right ovarian cyst with an elevated CA 125. Discussed repeat a CA 125 and imaging to ensure the continues to have no aggressive features. We discussed post watchful waiting as well as aggressive surgical intervention. 3. Plan for repeat ultrasound and CA 125 and 3-4 months. 4. Total time spent was 62 minutes: Preparing to see the patient (e.g., review of tests) Obtaining and/or reviewing separately obtained history Performing a medically appropriate examination and/or evaluation Counseling and educating the patient/family/caregiver Ordering medications, tests, or procedures Referring and communicating with other health life care planner (not separately reported) Documenting clinical information in the electronic or other health record Wes Diaz MD documented in this encounter [facility] 03-29-2024 Instructions Zee Hollis MA - 03/29/2024 2:19 PM EDT We will see you back in the office: as needed If you need to cancel or reschedule an appointment please call [phone]. If you have any questions please call SHERRY Burciaga directly at [phone]. documented in this encounter [facility] 03-29-2024 History of Present illness Narrative ELECTROPHYSIOLOGY Clinic Established Follow Up Visit Patient Name: Karen Gifford MR #: [id number] : 1935 Physicians: Vincenzo Austin MD (Family); No ref. provider found (Referring) Primary Plate Setter: Dr. Jay Guerra Assessment and Plan: ASSESSMENT: Recent hospitalization for shortness of breath -found with large pericardial effusion status post pericardiocentesis -Found with large pleural effusion status post bilateral thoracentesis -Perhaps malignant? Persistent atrial fibrillation -[id number]: 5 on Xarelto -Rate control strategy previously [...] She already followed up with cardiology at [facility] and is due to follow-up with pulmonology soon to address her pleural effusions and perhaps discuss malignancy etiology. She is interested in consolidating care at [facility] which would be reasonable to keep her close to home. All of our records are available through care everywhere and able to be accessed at [facility]. We will be available for any as needed follow-ups if the need were to arise. FOLLOW UP IN: As needed Kiko Barba, MS, LICENSED WEIGHER-SHAKER PLATE OPERATOR, AGACNP-BC [facility] Office Inpatient: Please contact me through secure chat To expedite correspondence this note was generated by [employer] voice recognition software. Some grammatical or spelling [...] Strain: Low Risk (03/08/2024) Received from [facility] Overall Financial Resource Strain (CARDIA) Difficulty of Paying Living Expenses: Not hard at all Food Insecurity: No Food Insecurity (03/08/2024) Received from [facility] Hunger Vital Sign Within the past 12 months, you worried that your food would run out before you got the money to buy more.: Never true Transportation Needs: No Transportation Needs (03/08/2024) Received from [facility] Transportation In the past 12 months, has lack of transportation kept you from medical appointments or from getting medications?: No Housing Stability: Low Risk (03/08/2024) Received from [facility] Housing Stability Vital Sign In the last 12 months, was there a time when you did not have a steady place to sleep or slept in a penitentiary (including now)?: No Allergies: Calcium channel blocking [...] 03/29/24 2:23 PM documented in this encounter [facility] 03-29-2024 Note ELECTROPHYSIOLOGY Cl inic Established Follow Up Visit Patient Name: Karen Gifford MR #: [id number] : 1935 Physicians: Vincnezo Austin MD (Family); No ref. provider found (Referring) Primary Plate Setter: Dr. Jay Guerra Assessment and Plan: ASSESSMENT: Recent hospitalization for shortness of breath -found with large pericardial effusion status post pericardiocentesis -Found with large pleural effusion status post bilateral thoracentesis -Perhaps malignant? Persistent atrial fibrillation -[id number]: 5 on Xarelto -Rate control strategy previously [...] She already followed up with cardiology at [facility] and is due to follow-up with pulmonology soon to address her pleural effusions and perhaps discuss malignancy etiology. She is interested in consolidating care at [facility] which would be reasonable to keep her close to home. All of our records are available through care everywhere and able to be accessed at [facility]. We will be available for any as needed follow-ups if the need were to arise. FOLLOW UP IN: As needed Kiko Barba MS, LICENSED WEIGHER-SHAKER PLATE OPERATOR, AGACNP-[facility] Office Inpatient: Please contact me through secure chat To expedite correspondence this note was generated by [employer] voice recognition software. Some grammatical or spelling [...] follow-up. She is a patient of Dr. Guerra's.. Subjective: Doing well with no complaints Objective: [...] Strain: Low Risk (03/08/2024) Received from [facility] Overall Financial Resource Strain (CARDIA) Difficulty of Paying Living Expenses: Not hard at all Food Insecurity: No Food Insecurity (03/08/2024) Received from [facility] Hunger Vital Sign Within the past 12 months, you worried that your food would run out before you got the money to buy more.: Never true Transportation Needs: No Transportation Needs (03/08/2024) Received from [facility] Transportation In the past 12 months, has lack of transportation kept you from medical appointments or from getting medications?: No Housing Stability: Low Risk (03/08/2024) Received from [facility] Housing Stability Vital Sign In the last 12 months, was there a time when you did not have a steady place to sleep or slept in a penitentiary (including now)?: No Allergies: Calcium channel blocking [...] mouth daily w (more content not included)... [facility] 03-08-2024 Miscellaneous Notes Reroller Hand left voice message to reschedule appt. Provider out of office. documented in this encounter [facility] 03-08-2024 Telephone encounter Note Reroller Hand left voice message to reschedule appt. Provider out of office. [facility] 03-05-2024 Miscellaneous Notes VM left instructing pt to c/b for new patient visit. documented in this encounter [facility] 03-05-2024 Telephone encounter Note DONAL left instructing pt to c/b for new patient visit. [facility] 12-01-2023 History of Present illness Narrative REASON [...] time was spent with patient performing the watch technician work of this visit. Referring Physician: [...] ROS: complete review of systems performed by watch technician, reviewed by me. OCT: baseline, good [...] resolved OS. documented in this encounter [facility] 06-28-2023 History of Present illness Narrative Electrophysiology Clinic Consult Heart & Vascular [facility] 06/28/2023 Jay Guerra MD [facility] [address] [address] Patient: Karen Gifford Date of : [...] her age, doing water walking at the [facility] for 30 minutes twice per week. [...] 88 y.o. female who presents today to critical access hospital care. The following issues were addressed at [...] daily indefinitely in the setting of a [id number] score of 5. Sick sinus syndrome status [...] members, referring and/or communicating with other health life care planner, coordinating care, and documenting the above findings. documented in this encounter [facility] 06-28-2023 Instructions Janet Mendoza RN - 06/28/2023 12:44 PM EST Testing Ordered: None Medication Changes: Stop Amiodarone Lab Work Ordered: None To schedule any outpatient testing( if applicable) simply call [phone] and follow the prompts to schedule any outpatient testing. If you have any questions or concerns about today's visit please call Janet RN at [phone] documented in this encounter [facility] 05-31-2023 History of Present illness Narrative [...] time was spent with patient performing the watch technician work of this visit. Referring Physician: [...] ROS: complete review of systems performed by watch technician, reviewed by me. OCT: baseline, good [...] after hours documented in this encounter [facility] 03-22-2022 Note CARDIAC STRESS TEST Requesting [...] and reported in a separate dictation. [facility] Evaluation + Plan note No data available for this section [facility] General Surgery [place] Evaluation note Diagnosis Primary open-angle glaucoma, bilateral, indeterminate stage- Primary PCO (posterior capsular opacification), left After-cataract, unspecified [facility] Diagnosis PAF (paroxysmal atrial fibrillation) (HCC)- Primary Atrial fibrillation [facility] Diagnosis PAF (paroxysmal atrial fibrillation) (HCC)- Primary Atrial fibrillation 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 SSS (sick sinus syndrome) ([facility]) Sinoatrial node dysfunction Hypertension, unspecified type Heart failure with preserved ejection fraction, unspecified HF chronicity ([facility]) [facility] Primary open-angle glaucoma, bilateral, indeterminate stage- Primary [facility] Diagnosis PAF (paroxysmal atrial fibrillation) (HCC)- Primary Atrial fibrillation 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 [facility] Diagnosis PAF (paroxysmal atrial fibrillation) (HCC)- Primary Atrial fibrillation [facility] Diagnosis Persistent atrial fibrillation (HCC)- Primary Atrial fibrillation PAF (paroxysmal atrial fibrillation) (HCC) Atrial fibrillation SSS (sick sinus syndrome) (HCC) Sinoatrial node dysfunction 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 Pericardial effusion Unspecified disease of pericardium Pleural effusion Unspecified pleural effusion [facility] Diagnosis Primary open-angle glaucoma, bilateral, indeterminate stage- Primary [facility] Cyst of right ovary- Primary Other and unspecified ovarian cyst Elevated cancer antigen 125 (CA 125) Elevated cancer antigen 125 [CA 125] [facility] Diagnosis Primary open-angle glaucoma, bilateral, indeterminate stage- Primary Dry eye syndrome of bilateral lacrimal glands Tear film insufficiency, unspecified [facility] No data available for this section [facility] General Surgery [place] InstructionsNot on filedocumented in this encounter [facility] filed[facility]ed in [facility] filedocumented in this encounter [facility] filedocumented in this encounter [facility] No data available for this section [facility] General Surgery [place] Summary Purpose Family History No Family History Records FoundNo Family History Records FoundNo Family History Records FoundNo Family History Records FoundNo Family History Records FoundNo Family History Records FoundNo Family History Records Found No data available for this section No Family History Records FoundNo Family History Records FoundNo Family History Records FoundNo Family History Records Found Advance Directives No Advanced Directives Records FoundDocuments on File Type Date Recorded Patient Braille Proofreader Expl anation Advance Directives and Livin g Will 06/28/2023 12:40 PM Documents on File Type Date Recorded Patient Braille Proofreader Expl anation Advance Directives and Livin g Will 06/28/2023 12:40 PM Reason for Referral Specialty Diagnoses / Procedures Referred By Adin t Referred To Contact Cardiology Diagnoses PAF (paroxysmal atrial fibrillation) (HCC) Procedures ECG 12 lead Jay Guerra MD [address] [facility] [address] [place] [address] Referral ID Status Reason Start Date Expiration Date V isits Requested Visits Authorized [id number] Authorized 06/23/2023 06/22/2024 1 1 Specialty Diagnoses / Procedures Referred By Contac t Referred To Contact Cardiology Diagnoses PAF (paroxysmal atrial fibrillation) (HCC) Presence of cardiac pacemaker Procedures ECG 12 lead Jay Guerra MD [address] [place] [address] Referral ID Status Reason Start Date Expiration Date V isits Requested Visits Authorized [id number] Authorized 02/02/2024 02/01/2025 4 4 Specialty Diagnoses / Procedures Referred By Contac t Referred To Contact Cardiology Diagnoses PAF (paroxysmal atrial fibrillation) (HCC) Procedures ECG 12 lead Kiko Barba, SHAKER PLATE OPERATOR [address] [facility] [address] [place] [address] Referral ID Status Reason Start Date Expiration Date V isits Requested Visits Authorized [id number] Authorized 03/27/2024 03/27/2025 1 1 Additional Source Comments INFORMATION SOURCE (unrecogn ized section and content) DATE CREATED AUTHOR [facility]20[facility] DATE CREATED AUTHOR AUTHOR'S ORGANIZ ATION 03/10/2023 [facility] DATE CREATED AUTHOR AUTHOR'S ORGANIZ ATION 12/10/2023 [facility] DATE CREATED AUTHOR AUTHOR'S ORGANIZ ATION 01/04/2024 [facility] DATE CREATED AUTHOR AUTHOR'S ORGANIZ ATION 04/02/2024 [facility] DATE CREATED AUTHOR AUTHOR'S ORGANIZ ATION 04/19/2024 [facility] DATE CREATED AUTHOR AUTHOR'S ORGANIZ ATION 04/19/2024 [facility] DATE CREATED AUTHOR AUTHOR'S ORGANIZ ATION 05/12/2024 [facility] DATE CREATED AUTHOR AUTHOR'S ORGANIZ ATION 11/23/2024 [facility] DATE CREATED AUTHOR AUTHOR'S ORGANIZ ATION 05/20/2025 [facility] DATE CREATED AUTHOR AUTHOR'S ORGANIZ ATION 05/20/2025 [facility] Reason for Visit (unrecogniz ed section and content) Reason Comments New Patient Glaucoma Reason Comments Follow-up Reason Comments Follow-up Hosp. F/u Reason Onset Date Comments Reschedule appt 03/08/2024 Reason Comments New Patient Care Teams (unrecognized sec tion and content) Inside Sales Territory Manager Relationship Specialty Start Date End Date Vincenzo Austin MD [address] [place] [address] PCP - General Family Medicine 05/31/23 Jennifer Redman DO [address] [place] [address] [place] [id number] Ophthalmology 05/31/23 Inside Sales Territory Manager Relationship Specialty Start Date End Date Vincenzo Austin MD [address] [place] [address] PCP - General Family Medicine 06/15/23 Inside Sales Territory Manager Relationship Specialty Start Date End Date Vincenzo Austin MD [address] [place] [address] PCP - General Family Medicine 06/15/23 Jay Guerra MD [address] [address] Cardiac Electrophysiology 06/28/23 Inside Sales Territory Manager Relationship Specialty Start Date End Date Vincenzo Austin MD [address] [place] [address] PCP - General Family Medicine 06/15/23 Jay Guerra MD [address] [address] Cardiac Electrophysiology 06/28/23 Inside Sales Territory Manager Relationship Specialty Start Date End Date Vincenzo Austin MD [address] [place] [address] PCP - General Family Medicine 06/15/23 Jay Guerra MD [address] [address] Cardiac Electrophysiology 06/28/23 Inside Sales Territory Manager Relationship Specialty Start Date End Date Vincenzo Austin MD [address] [place] [address] PCP - General Family Medicine 06/15/23 Jay Guerra MD [address] [address] Cardiac Electrophysiology 06/28/23 Inside Sales Territory Manager Relationship Specialty Start Date End Date Vincenzo Austin MD [address] [place] [phone] PCP - General Family Medicine 05/31/23 Jennifer Redman DO [address] [place] [address] Ophthalmology 05/31/23 Inside Sales Territory Manager Relationship Specialty Start Date End Date Provider, Conversion, PCP - General 02/07/14 Inside Sales Territory Manager Relationship Specialty Start Date End Date Provider, Conversion, PCP - General 02/07/14 Inside Sales Territory Manager Relationship Specialty Start Date End Date Provider, Conversion, PCP - General 02/07/14 Inside Sales Territory Manager Relationship Specialty Start Date End Date Provider, Conversion, PCP - General 02/07/14 Inside Sales Territory Manager Relationship Specialty Start Date End Date Vincenzo Austin MD [address] [place] [phone] PCP - General Family Medicine 05/31/23 Jennifer Redman DO [address] [place] [phone] Ophthalmology 05/31/23 FOR RECORDS PERTAINING TO PATIENTS WHO ARE [...] BE BASED ON THE PRIMARY CLINICAL RECORDS. [facility]. provides no warranty or guarantee of the accuracy or completeness of information in this document.
== END 2025-05-22 12:55 | disposition home or self-care (01) ==
LOC: US 12:54
PROVIDERS: PCP Family Medicine; Visit Provider Family Medicine
DX: N83.201 Unspecified ovarian cyst, right side (principal)
CPT/HCPCS: 76856

== ENCOUNTER 2025-06-20 08:30 | Outpatient (OUT) | payer MEDICARE, OTHER, SELFPAY ==
--- OUTSIDE RECORDS SUMMARY | 2025-06-11 08:20 | XMS_ITS | Encounter Summary ---
Author Organization [facility] Address [address] [place] [address] Care Team Providers Care Electronics Tech Name Role Phone Billy Patel MD Primary Care Provider [phone] Reason for Visit * ReasonCommentsGynecologic Exam Encounter Details DateTypeDepartmentCare Team (Latest Contact Info)Xjyvrnslnru25/28/2025 9:20 AM EDTOffice Visit [facility] [address] [phone] Lan Hennessy DO [address] [facility] [place] [address] Cyst of right ovary; Pelvic pain; Complex ovarian cyst Social History Tobacco UseTypesPacks/DayYears UsedDateSmoking Tobacco: Never Assessed CommentsUnknownSex and Gender InformationValueDate RecordedSex Assigned at Not on fileLegal RidGhkndn50/06/2024 1:39 PM EDTGender IdentityNot on fileSexual OrientationNot on filedocumented as of this encounter Last Filed Vital Signs Vital SignReadingTime TakenCommentsBlood Fonxdfui280/7210 9:29 AM EDT Pulse--Temperature--Respiratory Rate--Oxygen Saturation--Inhaled Oxygen Concentration--Xxtevp12.3 kg (152 lb 12.8 oz)06/11/2025 9:29 AM LXBRnifzm421.2 cm (5' 7 )06/11/2025 9:29 AM EDTBody Mass Index23.9306/11/2025 9:29 AM EDT documented in this encounter Progress Notes * Marii Medina LPN - 06/11/2025 9:20 AM EDT Reason for Appointment: Patient ID: Karen Ladd is a 89 y.o. female who presents for Gynecologic Exam Patient presents today for Consult appointment. MEDICATIONS Current Outpatient Medications Medication Instructions albuterol (2.5 MG/3ML) 0.083% nebulizer solution Every 6 hours PRN atenolol (TENORMIN) 100 mg, Oral, 2 times daily bumetanide (BUMEX) 1 mg, Oral, Daily dilTIAZem CD (CARDIZEM CD) 300 mg, Oral, Daily famotidine (PEPCID) 20 mg, Oral, 2 times daily hydrALAZINE (Apresoline) 100 MG tablet Take 100mg twice daily latanoprost (Xalatan) 0.005 % ophthalmic solution Every 24 hours liothyronine (CYTOMEL) 5 mcg, 2 times daily magnesium 250 MG tablet Every 24 hours rivaroxaban (XARELTO) 20 mg, Oral, Every 24 hours simvastatin (ZOCOR) 10 mg, Oral, 2 times daily timolol (Timoptic) 0.5 % ophthalmic solution 1 drop, 2 times daily ALLERGIES Allergies Allergen Reactions Dorzolamide Hcl-Timolol Mal Other Itchy eyes Enalapril Unknown Lisinopril Cough and Unknown Pantoprazole Other Pounding heart Procardia [Nifedipine] Other Pounding heart PROBLEMS Active Ambulatory Problems Diagnosis Date Noted No Active Ambulatory Problems Resolved Ambulatory Problems Diagnosis Date Noted No Resolved Ambulatory Problems Past Medical History: Diagnosis Date Atrial fibrillation (HCC) Congestive heart failure (CHF) (HCC) Gastritis Hypercholesterolemia Hypertension Ovarian cyst HISTORY PAST MEDICAL HISTORY SOCIAL HISTORY Past Medical History: Diagnosis Date Atrial fibrillation (HCC) Congestive heart failure (CHF) (HCC) Gastritis Hypercholesterolemia Hypertension Ovarian cyst Social History Tobacco Use Smoking status: Not on file Smokeless tobacco: Not on file Substance Use Topics Alcohol use: Not on file Drug use: Not on file FAMILY HISTORY Family History Problem Relation Name Age of Onset Hypertension Other SURGICAL HISTORY Past Surgical History: Procedure Laterality Date APPENDECTOMY GALLBLADDER SURGERY HYSTERECTOMY KNEE ARTHROSCOPY W/ ACL RECONSTRUCTION REVIEW OF SYSTEMS Review of Systems: Review of Systems Constitutional: Negative. HENT: Negative. Eyes: Negative. Respiratory: Negative. Cardiovascular: Negative. Gastrointestinal: Negative. Genitourinary: Negative. Musculoskeletal: Negative. Skin: Negative. Neurological: Negative. All other systems reviewed and are negative. Hematological: Negative. Endocrine: Negative. Allergic/Immunologic: Negative. OBJECTIVE Objective: Physical Exam Constitutional: Appearance: Normal appearance. She is well-developed. Cardiovascular: Rate and Rhythm: Normal rate and regular rhythm. Pulmonary: Effort: Pulmonary effort is normal. Breath sounds: Normal breath sounds. Abdominal: General: Bowel sounds are normal. There is no distension. Palpations: Abdomen is soft. Tenderness: There is no abdominal tenderness. There is no guarding or rebound. Musculoskeletal: General: No swelling. Normal range of motion. Right lower leg: No edema. Left lower leg: No edema. Neurological: Mental Status: She is alert and oriented to person, place, and time. Skin: General: Skin is warm and dry. Psychiatric: Mood and Affect: Mood normal. Behavior: Behavior normal. Vitals and nursing note reviewed. Exam conducted with a video game producer present. Vitals: Estimated body mass index is 23.93 kg/m?? as calculated from the following: Height as of this encounter: 5' 7 . Weight as of this encounter: 152 lb 12.8 oz. BP: 126/72 No LMP recorded. Assessment/Plan ICD-10-CM 1. Cyst of ovary, unspecified laterality N83.209 2. Pelvic pain R10.20 3. Complex ovarian cyst N83.299 Pt presents with ovarian cyst consistent from one year ago, 5.1cm last 02/2024 and 4.9cm 05/2025. Ptgiven tumor markers given and pt will have repeated in 6 months possibly. Discussed if CA125 above [address] Diaz again. Pt voiced understanding. Documented by Marii Medina LPN on behalf of: Lan Hennessy DO documented in this encounter Plan of Treatment NameTypePriorityAssociated DiagnosesOrder ScheduleCA 125LabRoutine Cyst of right ovary Complex ovarian cyst Expected: 06/11/2025 (Approximate), Expires: 06/11/2026documented as of this encounter Visit Diagnoses Diagnosis Cyst of right ovary Other and unspecified ovarian cyst Pelvic pain Complex ovarian cyst documented in this encounter Care Teams Team MemberRelationshipSpecialtyStart DateEnd Date Billy Patel MD PCP - GeneralFamily Medicine12/19/23documented as of this encounter
--- OUTSIDE RECORDS SUMMARY | 2025-06-20 08:40 | XMS_ITS | Encounter Summary ---
Author Organization [facility] Address [address] [place] [address] Care Team Providers Care Flumer Name Role Phone Billy Patel MD Primary Care Provider [phone] Encounter Details DateTypeDepartmentCare Team (Latest Contact Info)Mczrbabgywj57/28/2025amboo flowsheet [facility] [address] [place] [phone] Lan Hennessy DO [address] [facility] [address] [place], [facility] Social History Tobacco UseTypesPacks/DayYears UsedDateSmoking Tobacco: Never Assessed CommentsUnknownSex and Gender InformationValueDate RecordedSex Assigned at Not on fileLegal ZujZusmoe45/06/2024 1:39 PM EDTGender IdentityNot on fileSexual OrientationNot on filedocumented as of this encounter Plan of Treatment Not on file documented as of this encounter Visit Diagnoses Not on filedocumented in this encounter Care Teams Team MemberRelationshipSpecialtyStart DateEnd Date Billy Patel MD PCP - GeneralFamily Medicine12/19/23documented as of this encounter
--- OUTSIDE RECORDS SUMMARY | 2025-06-20 08:41 | XMS_ITS | Clinical Summary ---
Author Organization [facility] Address [address] [place] [address] Care Team Providers Care Process Supervisor Name Role Phone Billy Patel MD Primary Care Provider [phone] Bony Guerra MD Unavailable [phone] Allergies Active AllergyReactionsCriticalityNoted DateCommentsCalcium Channel Blocking Agents-RprevatnnmikiypmOmznvfg55/17/2023Enalapril DjijlhrXdaunvp09/20/2023 IsosorbideOther (See Comments)06/09/2020 Dry eyes LisinoprilOther (See Comments)05/10/2022MorphineOther (See Comments)05/13/2022 vomit NpmugywlyoVgrrtsc01/01/2015Sulfa (Sulfonamide Antibiotics)Njskghk1002/21/2023 Medications MedicationSigDispense QuantityRefillsLast FilledStart DateEnd DateStatus albuterol (PROVENTIL) 2.5 mg /3 mL (0.083 %) nebulizer solution 3 mL as needed Inhalation every 6 hrs02/16/2023ctive atenoloL (TENORMIN) 100 MG tablet Take 1 tablet twice a day by oral route for 90 days.05/04/2023ctive diltiazem (TIAZAC) 240 MG 24 hr capsule Take by mouth daily .Active timoloL (BETIMOL) 0.25 % ophthalmic solution 1 (one) drop 2 (two) times a day .Active simvastatin (ZOCOR) 10 MG tablet Take 1 (one) tablet (10 mg total) by mouth daily .05/29/2023ctive ciclopirox (PENLAC) 8 % solution APPLY 1 SOLUTION TOPICALLY ONCE DAILY FOR 30 DAYSActive Xarelto 20 mg Tab Take 1 (one) tablet (20 mg total) by mouth daily .04/13/2022ctive magnesium 250 mg Tab Take 1 (one) tablet (250 mg total) by mouth daily with lunch .Active liothyronine (CYTOMEL) 5 MCG tablet Take 2 (two) tablets (10 mcg total) by mouth daily .05/16/2023ctive latanoprost (XALATAN) 0.005 % ophthalmic solution every night at bedtime .05/16/2023ctive hydrALAZINE (APRESOLINE) 100 MG tablet Take 1 tablet twice a day by oral route for 90 days.05/20/2023ctive cholecalciferol (VITAMIN D3) 250 mcg (10,000 unit) capsule as directed OrallyActive timolol (TIMOPTIC) 0.5 % ophthalmic solution every night at bedtime .05/09/2023ctive bumetanide (BUMEX) 1 MG tablet Take 1 (one) tablet (1 mg total) by mouth daily . 90 tablet ctive Active Problems ProblemNoted DateDiagnosed DatePAF (paroxysmal atrial fibrillation)06/28/2023 Presence of cardiac sbcggiyrw40/14/2023SSS (sick sinus syndrome)06/28/2023 Dbyreyqbmstz83/14/2023Heart failure with preserved ejection dkwffulm91/14/2023 Social History Tobacco UseTypesPacks/DayYears UsedDateSmoking Tobacco: NeverSmokeless Tobacco: Never Tobacco Cessation:Counseling Given: Not Answered Alcohol UseStandard Drinks/WeekCommentsNever0 (1 standard drink = 0.6 oz pure alcohol)CommentsUnknownSex and Gender InformationValueDate RecordedSex Assigned at BirthNot on fileLegal AufVvhwut54/26/2023 1:47 PM EDTGender Identity Not on fileSexual OrientationNot on file Last Filed Vital Signs Vital SignReadingTime TakenCommentsBlood Ruzzzohn617/6808 1:57 PM EDT Gvlsx074903/29/2024 1:57 PM EDTTemperature--Respiratory Rate--Oxygen Saturation-- Inhaled Oxygen Concentration--Wpfdef56.6 kg (138 lb)03/29/2024 1:57 PM EDTHeight 170.2 cm (5' 7 )03/29/2024 1:57 PM EDTBody Mass Index21.61003/29/2024 1:57 PM EDT Plan of Treatment Health MaintenanceDue DateLast DoneCommentsDexa Scan1937Medicare Wellness Visit1940Depression Screening/Follow-Up (PHQ-2/9)1949Pneumococcal Vaccine: 50+ Years (1 of 2 - PCV)1956Zoster Vaccines (1 of 2)1987 Falls Risk Kjkpcorzjm20/07/2002RSV Vaccines (1 - 1-dose 75+ series)2012 COVID-19 Vaccine ( season), 04/29/2022, 11/25/2021, Additional history existsInfluenza Vaccine (#1), 05/13/2021, 05/07/2020, Additional history existsTetanus: Every 10yrs (RETIRED) , 01/14/2020, 07/05/2012 Medical Devices ImplantedTypeAreaManufacturerDevice IdentifierShelf Expiration DateModel / Serial / LotAcclarent [id number] Edora 8 Mateusz [id number] Implanted:05/12/2022 (Quantity not on file)[id number] EDORA 8 MATEUSZ / [id number] / Acclarent 377 176 Solia S 45 [id number] Implanted:05/12/2022 (Quantity not on file)Pacing [id number] 176 SOLIA S 45 / [id number] / Acclarent 377 177 Solia S 53 [id number] Implanted:05/12/2022 (Quantity not on file)Pacing [id number] SOLIA S 53 / [id number] / Insurance * Guarantor: Alexa Ladd TypeRelation to PatientDate of BirthPhone Billing AddressPersonal/WzzotcIbft1935 [address] [address] [employer] [place]S [address] [address] [place] [address] Advance Directives For more information, please contact: [phone] TypeDate RecordedPatient RepresentativeExplanationAdvance Directives and Living Will06/28/2023 12:40 PM Care Teams Team MemberRelationshipSpecialtyStart DateEnd Billy Patel MD [address] [facility] [place] [phone] PCP - GeneralFamily Zfyjumna06/1/23 Bony Guerra MD [address] [facility] [address] [place] [address] Cardiac Egfjwpufuvozpsndw35/14/23
--- OUTSIDE RECORDS SUMMARY | 2025-06-20 08:41 | XMS_ITS ---
Author Organization [facility] Address [address] [place] [address] Care Team Providers Care Curator Of Manuscripts Name Role Phone Billy Patel MD Primary Care Provider [phone] Active Problems ProblemNoted DateDiagnosed DateAdult general medical weierpmjpkd20/20/2025ge- related cataract of right eye06/03/2025nkle edema06/03/2025hronic obstructive pulmonary cxconvg1206/03/2025ombined forms of age-related cataract of left eye 06/03/20252968Wzrzsn64/20/2025History of COVID-191Intra-abdominal and pelvic swelling, mass and lump, unspecified site06/03/2025Joint pain06/03/2025 Myocardial atkmtsf9706/03/2025Other secondary pulmonary iedmkcfcthhl89/20/2025 Uckptjjhue42/20/2025Parietoalveolar lkanelnlimy55/20/2025Pure imyxpaxmnowtmcdbktxc36/20/2025Solitary pulmonary muumlo6806/03/2025Sudden visual loss06/03/2025Ventricular jthfckyldnq01/20/2025asal cell bhdylhnai75/12/2024 BRBPR (bright red blood per rectum)06/26/20248275Btqcrwlf25/12/2024yslipidemia 06/26/20244361Kjujurx97/12/2024Epidermal inclusion cyst06/26/2024Fibrocystic breast 06/26/2024History of WI (myocardial infarction)06/26/2024Hypothyroidism 06/26/2024Iron deficiency jddpnp9906/26/20242281Olrjyyglyv77/12/2024ositive fecal occult blood test06/26/2024Sebaceous cyst06/26/20240787Aqayytf57/12/2024TIA on fvptpafuai00/12/2024ortic hgfbjucmoshib48/12/6299Wjoorruwtcjm75/12/2024Elevated cancer antigen 125 (CA 125)04/24/2024yst of right ovary04/18/2024leural atvtycvy52/23/2024History of colon ftzfov1203/28/2024ericardial effusion 03/08/2024Heart failure with preserved ejection qdrdgzob30/14/2023resence of cardiac unjfonemb48/14/2023Multiple pulmonary tluclrd03cute on chronic diastolic (congestive) heart edixrpg08 Assessment & Plan (06/03/2023 5:12 PM EDT): [facility] I-II, Currently pt is euvolemic without exacerbation Continue GDMT- continue bumex- Diuretic therapy Monitor daily weights, I&O, fluid restriction 1.5-2L/day, renal function and electrolytes S/P placement of cardiac rllmmiois40/30/2022 Assessment & Plan (06/03/2023 5:12 PM EDT): Stable Device interrogation q 6 months Paroxysmal atrial ezfrpcztrrfz03/26/2022 Overview (05/10/2022): Added automatically from request for surgery [id number] Assessment & Plan (06/03/2023 5:11 PM EDT): Continue xarelto and amiodarone and atenolol Sinus pause05/10/2022 Overview (05/13/2022): Added automatically from request for surgery [id number] Obstructive sleep apnea ejbewude41/26/2022Gastroesophageal reflux disease 03/08/2022Hypertensive /25/2022 Assessment & Plan (06/03/2023 5:10 PM EDT): [...] if b/p remains > 130/80, or for anyconcerns Xrlatwpzctvaxi41/25/2022 Current Treatment and Therapy Plans No current plan information found. Past Treatment and Therapy Plans No past plan information found. Lifetime Dose Tracking * ChemicalLifetime DoseAutomatic EntryManual EntryFluoro Time16.45 minutes0 kyqjqqg54.45 minutesAir Yvgwa400 mGy0 tJl765 mGy
--- OUTSIDE RECORDS SUMMARY | 2025-06-20 08:41 | XMS_ITS | Encounter Summary ---
Author Organization [facility] Address [address] [place] [address] Care Team Providers Care Oncology Registrar Name Role Phone Billy aPtel MD Primary Care Provider [phone] Encounter Details DateTypeDepartmentCare Team (Latest Contact Info)Guptpawimsy21/15/2024Clinisync Result Encounter [facility] External Department Unsolicited Lorie Hennessy, DO [address] [facility] [place] [address] Social History Tobacco UseTypesPacks/DayYears UsedDateSmoking Tobacco: Never Assessed CommentsUnknownSex and Gender InformationValueDate RecordedSex Assigned at Not on fileLegal VzfHsipoe72/06/2024 1:39 PM EDTGender IdentityNot on fileSexual OrientationNot on filedocumented as of this encounter Plan of Treatment Not on file documented as of this encounter Procedures Procedure NamePriorityDate/TimeAssociated DiagnosisCommentsUS AGJDDN5002/27/2024 11:40 AM EDT documented in this encounter Results * US PELVIS (02/27/2024 11:40 AM EDT)Anatomical RegionLateralityModalityOther Specimen (Source)Anatomical Location / LateralityCollection Method / Volume Collection TimeReceived Time02/27/2024 11:40 AM EDT Narrative 02/27/2024 11:42 AM EDT [facility] ?[address] ? [place] [address] ? Ultrasound Report ? Signed ? Patient: BALTA,DEBORA F ?MR#: [id number] ?? : 1935 ?Acct:[id number] ?? Age/Sex: 88 / F ?ADM Date: /15/24 ?? Loc: [facility] ? Attending Dr: Lorie Hennessy D.O. ? Ordering Physician: Lorie Hennessy D.O. ?? Date of Service: 02/27/24 ?? Procedure(s): US pelvis ?? Accession Number(s): [id number] ? cc: Lorie Hennessy D.O.; Billy Patel M.D. ? [facility] ? [address] ? [place] [address] ? Patient Name: ?? DEBORA GIFFORD ? MRN: [facility]:[id number] ? date: 1935 ?Sex: F ?? Assigned Patient Location: [facility] ?? Current Patient Location: [facility] ?? Accession/Order Number: [id number] ?? Exam Date: 02/27/2024 ??10:40 ?Report Date: 02/27/2024 ??11:40 ? At the request of: ?? LORIE ??MINOO ? Procedure: ??US pelvis ? EXAMINATION: US pelvis ? HISTORY: OVARIAN CYST ? COMPARISON: 11/29/2023 ? FINDINGS: ? The uterus is surgically absent ? The right ovary is not definitively seen. Noted in the right adnexa is an area ? of anechoic echogenicity measuring 5.1 x 3.2 x 5.0 cm. Some internal low-level ? echoes are observed ? Left ovary is nonvisualized ? No free fluid ? US/US pelvis ?? IMPRESSION: ? 5.1 cm right adnexal cyst ? Electronically authenticated by: JAY ??FEDE ?? Date: 02/27/2024 ??11:40 ? Dictated By: ?Jay Mistry M.D. ? Signed By: ?02/27/24 1142 ? DD/ 1140 ? TD/TT: ? [employer]: Procedure Note Radiology, Radiologist, MD - 02/27/2024 [place] [address] Ultrasound Report Signed Patient: DEBORA GIFFORD FMR#: [id number] : 7Acct:[id number] Age/Sex: 88 / FADM Date: 02/27/24 Loc: [facility] Attending Dr: Lorie Hennessy D.O. Ordering Physician: Lorie Hennessy D.O. Date of Service: 02/27/24 Procedure(s): US pelvis Accession Number(s): [id number] cc: Lorie Hennessy D.O.; Billy Patel M.D. [place] [id number] Patient Name: DEBORA GIFFORD MRN: [id number] date: 1935 Sex: F Assigned Patient Location: [facility] Current Patient Location: [facility] Accession/Order Number: [id number] Exam Date: 02/27/2024 10:40 Report Date: 02/27/2024 [...] cm right adnexal cyst Electronically authenticated by: JYA MISTRY Date: 02/27/2024 11:40 Dictated By: Jay Mistry M.D. Signed By:02/27/24 1142 DD/ 1140 TD/TT: [employer]: Authorizing ProviderResult TypeResult StatusCorey Minoo DOCLINISYNC IMAGINGFinal Result documented in this encounter Visit Diagnoses Not on filedocumented in this encounter Care Teams Team MemberRelationshipSpecialtyStart DateEnd Date Billy Patel MD PCP - GeneralFamily Medicine12/19/23documented as of this encounter
--- OUTSIDE RECORDS SUMMARY | 2025-06-20 08:41 | XMS_ITS | Clinical Summary ---
Author Organization [facility] ENTER Address [address] [place] [address] Care Team Providers Care Roller Turner Name Role Phone Billy Patel MD Primary Care Provider [phone] Sean Redman DO Unavailable [phone] Allergies Active AllergyReactionsCriticalityNoted DateCommentsCalcium Channel Blockers 05/31/20231631Tevfcqpfx97/17/2023 Medications MedicationSigDispense QuantityRefillsLast FilledStart DateEnd DateStatus Atenolol 100 MG tablet 05/04/2023ctive bumetanide 1 MG tablet Take 1 tablet by mouth daily.05/24/2023ctive Diltiazem 180 MG Cap SR 24HR capsule XL 04/26/2023ctive ciclopirox 8 % Solution topical solution APPLY 1 SOLUTION TOPICALLY ONCE DAILY FOR 30 DAYS03/24/2023ctive hydrALAZINE 100 MG tablet 05/20/2023ctive Liothyronine 5 MCG tablet Take 2 tablets by mouth daily.05/16/2023ctive Magnesium (V-R MAGNESIUM) 250 MG tablet Take 1 tablet by mouth.Active simvastatin 10 MG tablet 05/29/2023ctive Xarelto 20 MG tablet Take 1 tablet by mouth daily.05/18/2023ctive Latanoprost 0.005 % Solution ophthalmic solution 05/16/2023ctive AMIOdarone 200 MG tablet Take 1 tablet by mouth daily.Active Pepcid 40 MG tablet Take 1 tablet by mouth 2 times daily.11/30/2023ctive Metoprolol succinate 50 MG tablet XL Take 1 tablet by mouth 3 (three) times a day.Active Atorvastatin 10 MG tablet Take 1 tablet by mouth 2 times daily.Active Colchicine 0.6 MG tablet Take 1 tablet by mouth 2 times daily.Active Diltiazem 240 MG Cap SR 24HR capsule XL Take 1 capsule by mouth daily.Active Timolol maleate 0.5 % Solution ophthalmic solution Place 1 drop in both eyes 2 times daily. 30 mL 5Active Active Problems No known active problems Encounters DateTypeDepartmentCare OtvmXzdalwqinrx04/13/2025 3:00 PM EDTOffice Visit [facility] [address] [place] [phone] Leonides Stahl MD Primary open-angle glaucoma, bilateral, indeterminate stage (Primary Dx); Dry eye syndrome of bilateral lacrimal glands; Primary open-angle glaucoma, bilateral, moderate stagefrom Last 3 Months Family History Medical HistoryRelationNameCommentsHeart Disease - OtherFatherHypertensionMother StrokeMotherDiabetesPaternal UncleBlindnessNeg HxGlaucomaNeg HxRelationName StatusCommentsFatherMotherPaternal Uncle Social History Tobacco UseTypesPacks/DayYears UsedDateSmoking Tobacco: NeverSmokeless Tobacco: Never Tobacco Cessation:Counseling Given: Not Answered Alcohol UseStandard Drinks/WeekCommentsNot Currently0 (1 standard drink = 0.6 oz pure alcohol)CommentsUnknownSex and Gender InformationValueDate Recorded Sex Assigned at BirthNot on fileLegal QwoDrblvd40/02/2022 12:24 PM EDTGender IdentityNot on fileSexual OrientationNot on file Plan of Treatment DateTypeDepartmentCare Team (Latest Contact Info)Pncgrmsroxj79/13/2026 3:00 PM EDTOffice Visit [facility] [place] [address] [place] [address] [address] [place] [phone] Leonides Stahl MD [address] [place] [address] [address] [place] [address] Health MaintenanceDue DateLast DoneCommentsDEXA SCAN FRSRFMEKPL1937 QGBDNNEXA92/07/7078FZD35 1937CERVICAL CANCER SCREENING MZZXDYBYOB22/07/1958 COLORECTAL CANCER SCREENING ZLBSPLFAES69/07/1982PNEUMOCOCCAL VACCINE SERIES (1 of 1 - PCV)1987MAMMOGRAM SCREENING YEYPFJWEJL31/11/779703ZOSTER (SHINGLES) VACCINE (2 of 2)OVID-19 VACCINE ( season)509/05/2024, 05/26/2023, 04/29/2022, Additional history exists INFLUENZA VACCINE (#1)510/, 05/26/2023, 05/13/2021, Additional history qkdiagCKBIQUD73/26/840049, 01/14/2020, 07/05/2012, Additional history existsTDAP (ADULT)Jalnpeqkc50/26/2022, 07/05/2012, 01/12/2002RSV VACCINE Whdybxoiq64/29/2023HEP B VACCINEAged OutNo longer eligible based on patient's age to complete this topic Procedures Procedure NamePriorityDate/TimeAssociated DiagnosisCommentsOCT OPTIC NERVE OU Hqftehm4005/27/2025 3:29 PM EDT Primary open-angle glaucoma, bilateral, indeterminate stage from Last 3 Months Results * OCT OPTIC NERVE OU (05/27/2025 3:29 PM EDT)Anatomical RegionLateralityModality OtherSpecimen (Source)Anatomical Location / LateralityCollection Method / VolumeCollection TimeReceived Time Narrative 05/27/2025 3:29 PM EDT See note Authorizing ProviderResult TypeResult StatusMark A [facility] - OPHTHALMOLOGY SERVICE IMAGINGFinal Result from Last 3 Months Insurance Care Teams Team MemberRelationshipSpecialtyStart Date Billy Patel MD PCP - GeneralFamily Wadlntaj43/17/23 Sean Redman DO Xkkwdhgjbgwdw25/17/23
--- OUTSIDE RECORDS SUMMARY | 2025-06-20 08:41 | XMS_ITS | Clinical Summary ---
Author Organization [facility] Address [address] [place] [address] Care Team Providers Care Equipment Cleaner Name Role Phone Billy Patel MD Primary Care Provider [phone] Allergies Active AllergyReactionsCriticalityNoted DateCommentsDorzolamide Hcl-Timolol Mal Other01/02/2024 Itchy eyes EryepbhzdSkepmgo86/17/2023LisinoprilCough,Vmrjouy4505/10/2022antoprazoleOther 01/02/2024 Pounding heart ByovlvjyaxFhxyj70/20/2024 Pounding heart Medications MedicationSigDispense QuantityRefillsLast FilledStart DateEnd DateStatus famotidine (Pepcid) 20 MG tablet Take 20 mg by mouth in the morning and 20 mg before bedtime.Active albuterol (2.5 MG/3ML) 0.083% nebulizer solution every 6 (six) hours if hcnkco8802/16/2023ctive atenolol (Tenormin) 100 MG tablet Take 100 mg by mouth in the morning and 100 mg before bedtime.05/04/2023ctive bumetanide (Bumex) 1 MG tablet Take 1 mg by mouth Daily05/24/2023ctive dilTIAZem CD (Cardizem CD) 300 MG 24 hr capsule Take 300 mg by mouth Daily06/03/2023ctive hydrALAZINE (Apresoline) 100 MG tablet Take 100mg twice daily05/20/2023ctive latanoprost (Xalatan) 0.005 % ophthalmic solution 1 (one) time each day at the same time05/16/2023ctive liothyronine (Cytomel) 5 MCG tablet 5 mcg in the morning and 5 mcg before bedtime.05/16/2023ctive magnesium 250 MG tablet 1 (one) time each day at the same timeActive simvastatin (Zocor) 10 MG tablet Take 10 mg by mouth in the morning and 10 mg before bedtime.05/29/2023ctive timolol (Timoptic) 0.5 % ophthalmic solution 1 drop in the morning and 1 drop before bedtime.05/09/2023ctive rivaroxaban (Xarelto) 20 MG tablet Take 20 mg by mouth 1 (one) time each day at the same timeActive Encounters DateTypeDepartmentCare VvthBdklxspdkru22/28/2025 9:20 AM EDTOffice Visit [facility] [address] [place] [address] Lan Hennessy DO Cyst of right ovary; Pelvic pain; Complex ovarian cyst06/11/2025amboo flowsheet [facility] [address] [place] [address] Lan Hennessy DO 05/22/2025bstract [facility] [address] [place] [address] Lan Hennessy DO from Last 3 Months Family History Medical HistoryRelationNameCommentsHypertensionOtherRelationNameStatusComments Other Social History Tobacco UseTypesPacks/DayYears UsedDateSmoking Tobacco: Never Assessed CommentsUnknownSex and Gender InformationValueDate RecordedSex Assigned at Not on fileLegal TaiMbdiuk79/06/2024 1:39 PM EDTGender IdentityNot on fileSexual OrientationNot on file Last Filed Vital Signs Vital SignReadingTime TakenCommentsBlood Veobioot136/7206/11/2025 9:29 AM EDT Pulse--Temperature--Respiratory Rate--Oxygen Saturation--Inhaled Oxygen Concentration--Ktcxcl28.3 kg (152 lb 12.8 oz)06/11/2025 9:29 AM ZKWLvmops155.2 cm (5' 7 )06/11/2025 9:29 AM EDTBody Mass Index23.9306/11/2025 9:29 AM EDT Plan of Treatment Health MaintenanceDue DateLast DoneCommentsCOVID-19 Vaccine ( season) 51, 11/20/2024, 04/24/2024, Additional history exists Pneumococcal Vaccine: 65+ OuipoMxejapuou93/03/2025, 11/24/2022Influenza Vaccine Vpqwsmbdh27/16/2025, 06/01/2024, 05/26/2023, Additional history exists Insurance * Guarantor: Alexa Ladd TypeRelation to PatientDate of BirthPhone Billing AddressPersonal/HufgcpZquc1935 [address] [address] Care Teams Team MemberRelationshipSpecialtyStart DateEnd Billy Patel MD PCP - GeneralFamily Medicine12/19/23
--- OUTSIDE RECORDS SUMMARY | 2025-06-20 08:41 | XMS_ITS | Clinical Summary ---
Author Organization [facility] tem Address [id number] [address] [place] [address] Care Team Providers Care Board Design Engineer Name Role Phone Provider, Conversion MD Primary Care Provider Un available Allergies Active AllergyReactionsCriticalityNoted DateCommentsCalcium Channel Blocking Agents-DihydropyridinesOther (See Comments)07/15/2015 Pounding heart Dorzolamide-TimololOther (See Comments)01/02/2024 Itchy eyes IsosorbideOther (See Comments)06/09/2020 Dry eyes MorphineOther (See Comments)05/13/2022 vomit Sulfa (Sulfonamide Antibiotics)Other (See Comments)02/21/2023 Medications MedicationSigDispense QuantityRefillsLast FilledStart DateEnd DateStatus bumetanide (BUMEX) 1 mg tablet Take 1 tablet (1 mg total) by mouth daily.05/24/2023ctive cholecalciferol (VITAMIN D3) 250 mcg (10,000 unit) capsule Only in the winterActive ciclopirox (PENLAC) 8 % solution APPLY 1 SOLUTION TOPICALLY ONCE DAILY FOR 30 DAYSActive famotidine (PEPCID) 20 mg tablet Take 1 tablet (20 mg total) by mouth in the morning and 1 tablet (20 mg total) before bedtime.Active ferrous sulfate 325 (65 FE) mg tablet 1 tablet Orally Twice Daily for 30 days03/28/2024ctive latanoprost (XALATAN) 0.005 % ophthalmic solution Administer 1 drop to both eyes.05/16/2023ctive liothyronine (CYTOMEL) 5 MCG tablet 1 tablet (5 mcg total) in the morning and 1 tablet (5 mcg total) before bedtime. 05/16/2023ctive magnesium 250 mg tablet Take 1 tablet (250 mg total) by mouth.Active rivaroxaban (XARELTO) 20 mg tablet tablet Take 1 tablet (20 mg total) by mouth.05/18/2023ctive timoloL (BETIMOL) 0.5 % ophthalmic solution 1 drop in the morning and 1 drop before bedtime.05/09/2023ctive Active Problems ProblemNoted DateDiagnosed DateElevated cancer antigen 125 (CA 125)04/24/2024 Cyst of right ovary04/18/2024 Social History Tobacco UseTypesPacks/DayYears UsedDateSmoking Tobacco: Never AssessedChildcare AnswerDate SdgxozjqGhcrwrmojBtwzljt35/19/2020EmploymentAnswerDate Recorded PzywqxmturDsgfdyy06/19/2020Purpose - LifeAnswerDate RecordedPurpose and direction in onfgDswkcrc00/10/2021CommentsUnknownSex and Gender InformationValueDate RecordedSex Assigned at BirthNot on fileLegal SexFemale 03/18/2015 1:02 PM EDTGender IdentityNot on fileSexual OrientationNot on file Last Filed Vital Signs Vital SignReadingTime TakenCommentsBlood Ckgkdwow216/7809 10:04 AM EDT Hkzja328604/18/2024 10:04 AM EDTTemperature--Respiratory Lkqi616704/18/2024 10:04 AM EDTOxygen Sqwllzjkqb91%04/18/2024 10:04 AM EDTInhaled Oxygen Concentration-- Egqrov41.6 kg (144 lb 9.6 oz)04/18/2024 9:54 AM EDTHeight--Body Mass Index-- Plan of Treatment Health MaintenanceDue DateLast DoneCommentsDepression Tpecipvnk49/07/1949Tobacco Nolfiagfk53/07/1949Zoster (Shingles) Vaccine (1 of 2)1987Fall Risk Xbqnzntbz78/07/2002COVID-19 Vaccine (2024- season), 04/29/2022, 11/25/2021, Additional history existsInfluenza Qkrerny3104/15/2025 05/26/2023, 05/13/2021, 05/07/2020, Additional history existsDTaP,Tdap and Td Vaccines (4 - Td or Tdap)21, 01/14/2020, 07/05/2012, Additional history existsRSV ( or age 60+ yrs)Hkjbwuzug04/29/2023 Medical Devices Not on file Insurance * Guarantor: Karen Ladd FAccount TypeRelation to PatientDate of BirthPhone Billing AddressPersonal/QujcflOcsw1935 [address] [address] Care Teams Team MemberRelationshipSpecialtyStart DateEnd Date Provider, MD Spencer PCP - General02/07/14
--- OUTSIDE RECORDS SUMMARY | 2025-06-20 08:41 | XMS_ITS | Clinical Summary ---
Author Organization [facility] Address [address] [address] Care Team Providers Care Lap Runner Name Role Phone Billy Patel MD Primary Care Provider [phone] Allergies Active AllergyReactionsCriticalityNoted DateCommentsDorzolamide-TimololUnknown 01/02/2024 Itchy eyes ClzspqtzsjnskFajmp77/29/2024 Recurrent UTI QqayrexyalJhzmo83/29/2022 Dry eyes HwkiiotzgsVhnts57/26/1594WhfdjgfmNiatg39/29/2022 vomit OjuoilfzdhkwEckhnie58/20/2024 Pounding heart Iokqpviepd13/20/2023Sulfa (Sulfonamide Antibiotics)Ymtjasz1102/21/2023Enalapril Aenxzeg4906/03/2023 Medications MedicationSigDispense QuantityRefillsLast FilledStart DateEnd DateStatus timolol (Betimol) 0.5 % ophthalmic solution Administer 1 drop into both eyes two times daily.Active liothyronine (Cytomel) 5 mcg tablet Take 2 tablets by mouth in the morning.Active ferrous sulfate 325 (65 Fe) MG tablet 1 tablet Orally Twice Daily for 30 days03/28/2024ctive magnesium 250 mg tablet Take 250 mg by mouth.Active dilTIAZem CD (Cardizem CD) 240 mg 24 hr capsule Indications:Paroxysmal atrial fibrillation (CMS/HCC)Take 1 capsule (240 mg) by mouth once daily as directed. 90 capsule /ctive bumetanide (Bumex) 1 mg tablet Indications:Acute combined systolic and diastolic heart failure (CMS/HCC)Take 1 tablet (1 mg) by mouth in the morning. 90 tablet 5Active atorvastatin (Lipitor) 10 mg tablet Indications:Acute on chronic diastolic (congestive) heart failure (CMS/HCC)Take 1 tablet (10 mg) by mouth at bedtime. 90 tablet 501/6Active potassium chloride CR (Klor-Con M10) 10 mEq ER tablet Take 10 mEq by mouth in the morning. Do not crush or chew.Active metoprolol tartrate (Lopressor) 100 mg tablet Indications:Longstanding persistent atrial fibrillation (CMS/HCC)Take 1 tablet (100 mg) by mouth two times daily.ctive rivaroxaban (Xarelto) 20 mg tablet Indications:Paroxysmal atrial fibrillation (CMS/HCC)Take 1 tablet (20 mg) by mouth daily with evening meal. 90 tablet 5Active hydrALAZINE (Apresoline) 50 mg tablet Take 50 mg by mouth two times daily.5Active latanoprost (Xalatan) 0.005 % ophthalmic solution Administer 1 drop into both eyes at bedtime.06/04/2025Discontinued(Therapy completed) Active Problems ProblemNoted DateDiagnosed DateAdult general medical bfhazjjaxbe01/20/2025ge- related cataract of right eye06/03/2025nkle edema06/03/2025hronic obstructive pulmonary unhvpza4806/03/2025ombined forms of age-related cataract of left eye 06/03/20254375Uiljeb44/20/2025History of COVID-191Intra-abdominal and pelvic swelling, mass and lump, unspecified site06/03/2025Joint pain06/03/2025 Myocardial nplvtet5406/03/2025Other secondary pulmonary dwzriptenqnf08/20/2025 Klfhvbxuko57/20/2025Parietoalveolar cjdebaxwehv63/20/2025Pure qgohlzuqbtbzgkybvflv61/20/2025Solitary pulmonary pcoutu4606/03/2025Sudden visual loss06/03/2025Ventricular whtmhsdzyvr59/20/2025asal cell upvsrqsvs56/12/2024 BRBPR (bright red blood per rectum)06/26/20243760Yjdtipkd38/12/2024yslipidemia 06/26/20245970Qsjnejy70/12/2024Epidermal inclusion cyst06/26/2024Fibrocystic breast 06/26/2024History of WI (myocardial infarction)06/26/2024Hypothyroidism 06/26/2024Iron deficiency djmyrr4206/26/20242796Bvuouoompo41/12/2024ositive fecal occult blood test06/26/2024Sebaceous cyst06/26/20245466Qaqzcuj68/12/2024TIA on opfnaocphn09/12/2024ortic gqxciuegjkrmd60/12/8791Hhudpmxethfj80/12/2024Elevated cancer antigen 125 (CA 125)04/24/2024yst of right ovary04/18/2024leural rcqhyjup88/23/2024History of colon ezfuku1303/28/2024ericardial effusion 03/08/2024Heart failure with preserved ejection lxiiokst46/14/2023resence of cardiac eluwwqmxd48/14/2023Multiple pulmonary ypwgmsb54cute on chronic diastolic (congestive) heart Assessment & Plan (06/03/2023 5:12 PM EDT): [facility] I-II, Currently pt is euvolemic without exacerbation Continue GDMT- continue bumex- Diuretic therapy Monitor daily weights, I&O, fluid restriction 1.5-2L/day, renal function and electrolytes S/P placement of cardiac cebtvfqxm01/30/2022 Assessment & Plan (06/03/2023 5:12 PM EDT): Stable Device interrogation q 6 months Paroxysmal atrial tfnoeiwdyjjg03/26/2022 Overview (05/10/2022): Added automatically from request for surgery [id number] Assessment & Plan (06/03/2023 5:11 PM EDT): Continue xarelto and amiodarone and atenolol Sinus pause05/10/2022 Overview (05/13/2022): Added automatically from request for surgery [id number] Obstructive sleep apnea yozpshfl29/26/2022Gastroesophageal reflux disease 03/08/2022Hypertensive atgyglib21/25/2022 Assessment & Plan (06/03/2023 5:10 PM EDT): [...] b/p remains > 130/80, or for anyconcerns Etiimzndspirrk79/25/2022 Encounters DateTypeDepartmentCare GiisQnbxtzdvple66/21/2025 1:00 PM EDTFollow-Up [address] [address] Marcela Yousif CNP Longstanding persistent atrial fibrillation (CMS/HCC) (Primary Dx); Mixed hyperlipidemia; Bilateral carotid artery stenosis; Sick sinus syndrome (CMS/HCC); S/P placement of cardiac pacemaker; Nonrheumatic tricuspid valve regurgitation; Chronic diastolic heart failure (CMS/HCC); Primary hypertension; Pericardial /07/2025 3:00 PM EDTAncillary Procedure [address] [address] Encounter for implantable defibrillator reprogramming or check05/15/2025 8:30 AM EDTAncillary Procedure [facility] [address] [place] [phone] Adjustment and management of cardiac qcipufoma62/01/2025Orders Only [facility] [address] [place] [address] Yoav Hollingsworth MD 05/15/2025Telephone [address] [place] [address] Jennifer Redmond MA from Last 3 Months Immunizations ImmunizationAdministration DatesNext DueCovid (Pfizer) Bivalent Booster =>12 YRS 04/29/2022Influenza, High Dose Seasonal, Preservative Free05/16/2017Influenza, trivalent, jyyqbftpyy98/29/2021,05/07/2020Novel xokdshzdi-W7P5-33, preservative-free08/28/2009Td (adult), 5 Lf tetanus toxoid, preservative free, deuskxnx37/01/2020Td (adult), ittjiqcpyff64/31/5250Jpoo34/26/2022,07/05/2012 Unspecified Sars-Cov-2 Qlapirhijvu91/13/2022,06/10/2021,10/02/2020,09/04/2020 Family History Medical HistoryRelationNameCommentsLung cancerMother's SisterRelationNameStatus CommentsBrotherDeceasedFatherDeceasedMotherDeceasedMother's Sister Social History Tobacco UseTypesPacks/DayYears UsedDateSmoking Tobacco: Never Tobacco Cessation:Counseling Given: Not Answered Alcohol UseStandard Drinks/WeekCommentsNever0 (1 standard drink = 0.6 oz pure alcohol)[facility] UtilitiesAnswerDate RecordedIn the past 12 months has the [employer], gas, oil, or water [place] ([employer]) threatened to shut off services in your home?No 03/08/2024Humiliation, Afraid, Rape, and Kick questionnaireAnswerDate Recorded Within the last year, have you been afraid of your partner or ex-partner?No 03/08/2024Emotionally AbusedNot on file03/08/2024hysically AbusedNot on file 03/08/2024Sexually AbusedNot on file03/08/2024Overall Financial Resource Strain (CARDIA)AnswerDate RecordedHow hard is it for you to pay for the very basics like food, housing, medical care, and heating?Not hard at all03/08/2024HQ-2 AnswerDate RecordedPatient Health Questionnaire-2 Ayggt924UT Safety & EnvironmentAnswerDate RecordedFear of Current or Ex-PartnerNot on file10/06/2023 Emotionally AbusedNot on file10/06/2023hysically AbusedNot on file10/06/2023 Sexually AbusedNot on file10/06/2023hysically or Sexually AbusedNot on file 10/06/2023TransportationAnswerDate RecordedIn the past 12 months, has lack of transportation kept you from medical appointments or from getting medications?No 03/08/2024Lack of Transportation (Non-Medical)Not on file03/08/2024Housing Stability Vital SignAnswerDate RecordedUnable to Pay for Housing in the Last YearNot on file03/08/2024Number of Places Lived in the Last YearNot on file 03/08/2024In the last 12 months, was there a time when you did not have a steady place to sleep or slept in ashelter (including now)?No03/08/2024Hunger Vital SignAnswerDate RecordedWithin the past 12 months, you worried that your food would run out before you got the money to buymore.Never true03/08/2024an Out of Food in the Last YearNot on file03/08/2024CommentsNoSex and Gender InformationValueDate RecordedSex Assigned at UjmigKkrpzy10/17/2024 8:49 AM EDT Legal OqcYvgeeh86/29/2022 9:04 PM EDTGender XrtstuunQrouda81/17/2024 8:49 AM EDT Sexual OrientationDon't know05/31/2024 8:49 AM EDT Last Filed Vital Signs Vital SignReadingTime TakenCommentsBlood Sienxzdk395/7410 1:08 PM EDT Gkrry9663 1:08 PM HZQWhnrlgvaidc64.4 ??C (97.5 ??F)03/15/2024 8:20 AM EDTRespiratory Svkw2539 8:20 AM EDTOxygen Pbthzftfxc70%06/04/2025 1:08 PM EDTInhaled Oxygen Concentration--Hchsrn07.9 kg (152 lb)06/04/2025 1:08 PM EDT Ovfvkg770.2 cm (5' 7 )06/04/2025 1:08 PM EDTBody Mass Index23.8106/04/2025 1:08 PM EDT Plan of Treatment Health MaintenanceDue DateLast DoneCommentsMedicare Annual Wellness (AWV) 1935Fall Risk Gtqszdvbt21/07/2002COVID-19 Vaccine ( season) , 11/20/2024, 04/24/2024, Additional history exists Depression Smkfuqljt62dult Drgueiu74, 01/14/2020, 07/05/2012, Additional history existsPneumococcal Vaccine: 50+ Years Psdqimctf83/03/2025, 11/24/2022Zoster PdhsplqlApaggjlve39/03/2025, 06/01/2024 Influenza CkmicqzMucvnvofj70/16/2025, 06/01/2024, 05/26/2023, Additional history existsHIB VaccinesAged OutNo longer eligible based on patient's age to complete this topicHPV VaccinesAged OutNo longer eligible based on patient's age to complete this topicIPV VaccinesAged OutNo longer eligible based on patient's age to complete this topicMeningococcal B VaccineAged OutNo longer eligible based on patient's age to complete this topicMeningococcal VaccineAged OutNo longer eligible based on patient's age to complete this topicRotavirus VaccinesAged Out No longer eligible based on patient's age to complete this topic Medical Devices ImplantedTypeAreaManufacturerDevice IdentifierShelf Expiration DateModel / Serial / SimonaNomi S 53, - [id number] - [id number] Implanted:Qty: 1 on 05/13/2022 by [facility]: [id number] / [id number] / ChristianNomi S 45, - [id number] - [id number] Implanted:Qty: 1 on 05/13/2022 by [facility]: QaxmrWnlwwkhzu25/[id number] / [id number] / Pacer Edora,Cuauhtemoc,Chrissy - [id number] - [id number] Implanted:Qty: 1 on 05/13/2022 by [facility]emakerLeft: [id number] / [id number] / Procedures Procedure NamePriorityDate/TimeAssociated DiagnosisCommentsCARDIAC DEVICE CHECK - IN CLINIC - PACEMAKER DUAL CHAMBER W/ EDFKHsanymx63/08/2025 4:09 PM EDT Encounter for implantable defibrillator reprogramming or check CARDIAC DEVICE CHECK CHECK - QJOLOONfridsz93/07/2025 1:52 PM EDT Adjustment and management of cardiac pacemaker CARDIAC DEVICE CHECK - REMOTE - PGUYGBFWRXeyvtpj49/01/2025 12:00 AM EDTfrom Last 3 Months Results * CARDIAC DEVICE CHECK - IN CLINIC - PACEMAKER DUAL CHAMBER W/ PROG (05/22/2025 4:09 PM EDT)Anatomical RegionLateralityModalityOtherSpecimen (Source) Anatomical Location / LateralityCollection Method / VolumeCollection Time Received Time Narrative 05/27/2025 9:42 AM EDT Normal device function Authorizing ProviderResult TypeResult StatusPaul DarrickFlorala Memorial Hospital IMPLANTABLE CARDIAC DEVICE PROCEDURESFinal Result * CARDIAC DEVICE CHECK - REMOTE - PACEMAKER (05/21/2025 1:52 PM EDT)Specimen (Source)Anatomical Location / LateralityCollection Method / VolumeCollection TimeReceived Time Narrative Authorizing ProviderResult TypeResult StatusBlair Mauricio [facility] IMPLANTABLE CARDIAC DEVICE PROCEDURESFinal ResultPerforming OrganizationAddressCity/State/ZIP Code Phone Number CPACS * Cardiac device check - Remote pacemaker (05/15/2025 12:00 AM EDT)Anatomical RegionLateralityModalityOtherSpecimen (Source)Anatomical Location / Laterality Collection Method / VolumeCollection TimeReceived Time05/15/2025 Narrative Authorizing ProviderResult TypeResult StatusPaul [facility] IMPLANTABLE CARDIAC DEVICE PROCEDURESFinal Result from Last 3 Months Insurance * Guarantor: Karen Ladd FAccount TypeRelation to PatientDate of BirthPhone Billing AddressPersonal/EofseoOudr1935 [address] [address] Advance Directives * Full Code (Latest Code Status on File) Date ActivatedDate InactivatedComments03/13/2024 11:09 AM03/15/2024 2:26 PM * DNR CC-A Date ActivatedDate InactivatedComments03/08/2024 10:02 PM03/13/2024 11:09 AM QuestionAnswerCommentsSelect If Any Apply:* No Intubation * Full Code Date ActivatedDate InactivatedComments03/08/2024 7:34 PM03/08/2024 10:02 PM * Full Code Date ActivatedDate InactivatedComments05/13/2022 4:40 PM05/14/2022 1:48 PM Care Teams Team MemberRelationshipSpecialtyStart DateEnd Date Billy Patel MD [address] [place] [address] PCP - General05/13/22
--- OUTSIDE RECORDS SUMMARY | 2025-06-20 08:41 | XMS_ITS | Clinical Summary ---
Author Organization [facility] Address [address], [address] [place] [address] Care Team Providers Care Editor Dictionary Name Role Phone Billy Patel MD Primary Care Provider [phone] Allergies Active AllergyReactionsCriticalityNoted DateCommentsSulfa Xrmiwwlurni71/19/2023 Social History Tobacco UseTypesPacks/DayYears UsedDateSmoking Tobacco: Never Assessed CommentsUnknownSex and Gender InformationValueDate RecordedSex Assigned at Not on fileLegal VzbHuboyj13/10/2013 4:18 PM ESTGender IdentityNot on fileSexual OrientationNot on file Last Filed Vital Signs Vital SignReadingTime TakenCommentsBlood Jlkvgoot610/6307 1:39 PM EDT Knafp6687/19/2023 1:39 PM QXNMenszpekctj13.6 ??C (97.8 ??F)03/02/2023 1:39 PM EDTRespiratory Tnie798203/02/2023 1:39 PM EDTOxygen Ckvvivultd64%03/02/2023 1:39 PM EDTInhaled Oxygen Concentration--Cyxyen62.8 kg (167 lb)03/02/2023 1:39 PM EDT Typdxz833.2 cm (5' 7 )03/02/2023 1:39 PM EDTBody Mass Index26.16003/02/2023 1:39 PM EDT Plan of Treatment Health MaintenanceDue DateLast DoneCommentsDepression Mripst5504/21/1949 DTaP/Tdap/Td vaccine (1 - Tdap)1956Pneumococcal 50+ years Vaccine (1 of 1 - PCV)1987Shingles vaccine (1 of 2)1987Respiratory Syncytial Virus (RSV) or age 60 yrs+ (1 - 1-dose 75+ series)2012nnual Wellness Visit (Medicare)07/11/2023Flu vaccine (#1)03/15/2025OVID-19 Vaccine (1 - season)2025Hepatitis A vaccineAged OutNo longer eligible based on patient's age to complete this topicHepatitis B vaccineAged OutNo longer eligible based on patient's age to complete this topicHib vaccineAged OutNo longer eligible based on patient's age to complete this topicMeningococcal (ACWY) vaccineAged OutNo longer eligible based on patient's age to complete this topicMeningococcal B vaccineAged OutNo longer eligible based on patient's age to complete this topicPolio vaccineAged OutNo longer eligible based on patient's age to complete this topic Insurance * Guarantor: Karen Ladd TypeRelation to PatientDate of BirthPhone Billing AddressPersonal/YtvddvVakb1935 [address] [address] * Guarantor: Karen Ladd TypeRelation to PatientDate of BirthPhone Billing AddressPersonal/NsvbxrGpux1935 [address] [address] Care Teams Team MemberRelationshipSpecialtyStart DateEnd Billy Patel MD [address] [place] [address] PCP - GeneralFamily Medicine03/09/23
--- OUTSIDE RECORDS SUMMARY | 2025-06-20 08:43 | XMS_ITS | CCD ---
Author Organization [facility] Care Team Providers Care Lpn Care Manager Name Role Phone MELONYY ., DR LOYA [...] Unavailable ERIE, DR JAY Santillan Consulting Unavailable ISI YOUSIFA Consulting Unavailable LORI, CHILANGO Admitting Unavailable LORIISIA Consulting Unavailable ISI YOUSIFA Attending Unavailable HOY [...] Unavailable Vincenzo Austin MD Primary Care Provider [phone] Feroz DO, Jennifer Y Unavailable Vincenzo Austin MD Primary Care Provider [phone] Jay Guerra MD Unavailable HOVINCENZO Robles Primary Care Unavailable TROY, SIMONE YChloé Attending Unavailable HOYVINCENZO Primary Care Unavailable SIMONE CAMPOVERDE YChloé Attending Unavailable HOY, VINCENZO Primary Care Unavailable HOY, VINCENZO Primary Care Unavailable KIKO BARBA Attending Unavailable JAY GUERRA Attending Unavailable HOY, VINCENZO Referring Unavailable HOY VINCENZO Primary Care Unavailable WES DIAZ Attending Unavailable PROVIDER, CONVERSION Primary Care Unavailable WES DIAZ Referring Unavailable PROVIDER, CONVERSION Primary Care Unavailable Vincenzo Austin Primary Care Physician Avtar TUCKER Attending Unavailable Vincenzo Austin Referring Unavailable Avtar UTCKER Attending Unavailable Provider , [facility] Primary Care Provider Un available VINCENZO AUSTIN Primary Care Unavailable ABIMBOLA CHACON Attending Unavailable SELF, SELF Referring Unavailable VINCENZO AUSTIN Primary Care Unavailable ABIMBOLA CHACON Attending Unavailable SELF, SELF Referring Unavailable SELF, SELF Referring Unavailable VINCENZO AUSTIN Primary Care Unavailable ABIMBOLA CHACON Attending Unavailable Vincenzo Austin MD Primary Care Provider [phone] Feroz SIMS, Jennifer Y Unavailable JJ AYERS Attending Unavailable CHILANGO YOUSIF Attending Unavailable JJ AYERS Referring Unavailable CHILANGO YOUSIF Attending Unavailable JJ AYERS Referring Unavailable JJ AYERS Referring Unavailable JJ AYERS Referring Unavailable SIMBA, JENNIFER Referring Unavailable SIMBA, JENNIFER Referring Unavailable ADY JOSEPH Referring Unavailable FABIOLA ALMEIDA Attending Unavailable Vincenzo Austin MD Primary Care Provider [phone] LAN HENNESSY Attending Unavailable Vincenzo Austin MD Primary Care Unavailaxel Vicente MD, Bruce Summers Attending Unavailable Allergies Allergy ClassificationReported Allergen(s)Allergy TypeDate of OnsetReaction(s) Facility (3 sources)Enalapril; Translations: [Vasotec]Drug Nfyovco98-59-7750FflFisher[facility] (7 sources)Isosorbide; Translations: [ISOSORBIDE]Drug Zymdbef50-74-6087Dcj [facility] Repository (3 sources)NIFEdipine; Translations: [Procardia]Drug Yrhdwht21-11-2453YhxFisher-[facility] Medical [facility] Repository (5 sources)Calcium Channel BlockersPropensity to adverse reactions to drug 07-14-3742AVWGen[facility] (10 sources)Enalapril; Translations: [enalapril]Drug Mxglrww33-84-0271Entciyl (qualifier value), UnknownGenesis Hospital (7 sources)Enalapril; Translations: [ENALAPRIL MALEATE]Drug Ahlpazr40-87-6665 UnknownOhioHealth (6 sources)IsosorbideDrug Zinyjzw06-93-6849Zxejo (See Comments)[facility] (9 sources)Lisinopril; Translations: [LISINOPRIL]Drug Suducje02-99-9518Agwiw (See Comments), Unknown (qualifier value)[facility] (12 sources)Morphine; Translations: [MORPHINE]Drug Cwxmnth44-79-3103Andfi (See Comments)[facility] (8 sources)NIFEdipine; Translations: [NIFEDIPINE]Drug Vvqvhty14-11-8888Tkwojsy, Unknown (qualifier value)[facility] (11 sources)Sulfonamides (Antibiotic); Translations: [SULFA (SULFONAMIDE ANTIBIOTICS)]Propensity to adverse reactions to jerw75-46-0799Uefrthz, Other (See Comments)[facility] (10 sources)Calcium Channel Blocking Agents-Dihydropyridines; Translations: [CALCIUM CHANNEL BLOCKING AGENTS-DIHYDROPYRIDINES]Propensity to adverse reactions to vhpp37-94-1733Svrmtwx, Other (See Comments)[facility] (5 sources)dorzolamide / Timolol; Translations: [DORZOLAMIDE-TIMOLOL]Drug Wrxsaiv90-38-1923Mvyks (See Comments)[facility] Repository (3 sources)Sulfonamides (Antibiotic); Translations: [sulfa drugs]Drug allergy Unknown (qualifier value)[facility] (1 source)Lisinopril; Translations: [Zestril]Drug [facility]Mag[facility] Hospital Repository (1 source)dapagliflozin; Translations: [DAPAGLIFLOZIN]Drug Lrvtcxz54-38-9093 [facility] Repository (6 sources)pantoprazole; Translations: [PANTOPRAZOLE]Drug Nlkbalq85-99-8996Msnir [facility] Repository (4 sources)dorzolamide / TimololDrug Xbbphuh80-98-7946BfjkvIRPK Healthcare (4 sources)LisinoprilAllergy to krxcnmzev52-62-1858Zrxgp, UnknownNOTwo [facility] (4 sources)Vjxhestpbn60-45-8795SmlheBWNA Healthcare (1 source)dapagliflozin; Translations: [Farxiga]Drug [facility] Rep[facility] (1 source)dorzolamide; Translations: [Dorzolamide Hydrochloride]Drug Allergy [facility] Repository Medications Current Medications MedicationDrug Class(es)DatesSig (Normalized)Sig (Original)albuterol 0.83 mg/ml inhalation solution (8 sources)beta2-Adrenergic AgonistStart: 90-72-4454xbmffoqhc (2.5 MG/3ML) 0.083% nebulizer solution every 6 (six) hours if needed 02/16/2023 Active atenolol 100 mg oral tablet (13 sources)beta-Adrenergic BlockerStart: 52-79-4834kuvh 1 tablet by mouth in the morningatenolol (Tenormin) 100 MG tablet Take 100 mg by mouth in the morning and 100 mg before bedtime. 05/04/2023 Activeatorvastatin 10 mg oral tablet (7 sources)HMG-CoA Reductase InhibitorStart: 03-15-2024 End: 11-28-2695kwhejucpqbpd (LIPITOR) 10 mg tablet Take 1 tablet (10 mg total) by mouth. 03/15/2024 05/14/2024 Activetake 1 tablet by mouth twice daily Atorvastatin 10 MG tablet Take 1 tablet by mouth 2 times daily. Activebumetanide 1 mg oral tablet (17 sources)Loop DiureticStart: 05-24-2023 End: 12-65-2447oben 1 tablet by mouth once dailybumetanide (Bumex) 1 MG tablet Take 1 mg by mouth Daily 05/24/2023 Activecholecalciferol 0.25 mg oral capsule (6 sources)Vitamin Dcholecalciferol (VITAMIN D3) 250 mcg (10,000 unit) capsule Only in the winter Activeciclopirox 80 mg/ml topical solution (11 sources)Start: 31-05-6325vhczycnuvj 8 % Solution topical solution APPLY 1 SOLUTION TOPICALLY ONCE DAILY FOR 30 DAYS 03/24/2023 Activecolchicine 0.6 mg oral tablet (7 sources)Start: 03-15-2024 End: 35-34-7903vppu 1 tablet by mouth twice dailycolchicine 0.6 mg Tab 0.6 mg = 1 tab(s), Oral, BID, Refills(s) 0 Start Date: 04/13/24 Status: Fhyjqvk28 hr dilTIAZem hydrochloride 300 mg extended release oral tablet (18 sources)Calcium Channel BlockerStart: 82-57-0879vkqo 1 tablet by mouth once dailyCardizem LA 300 mg/24 hours oral tablet, extended release 300 mg = 1 tab(s), Oral, Daily, Refills(s) 0 Start Date: 04/13/24 Status: OrderedStart: 03-16-2024 End: 66-87-2421njtx 1 capsule by mouth every twenty-four hours in the morning dilTIAZem CD (CARDIZEM CD) 240 mg 24 hr capsule Take 1 capsule (240 mg total) by mouth in the morning. 03/16/2024 05/15/2024 ActiveStart: 61-53-6245siqg 1 capsule by mouth once daily, then take 1 capsule by mouth every twenty-four hoursdilTIAZem CD (Cardizem CD) 300 MG 24 hr capsule Take 300 mg by mouth Daily 06/03/2023 ActiveStart: 47-86-5700Qfqcpxoyy 180 MG Cap SR 24HR capsule XL 04/26/2023 Activetake 1 capsule by mouth once dailyDiltiazem 240 MG Cap SR 24HR capsule XL Take 1 capsule by mouth daily. Activefamotidine 40 mg oral tablet (11 sources)Histamine-2 Receptor AntagonistStart: 34-17-5706ecfw 1 tablet by mouth twice dailyPepcid 40 MG tablet Take 1 tablet by mouth 2 times daily. 11/30/2023 Activetake 1 tablet by mouth in the morningfamotidine (Pepcid) 20 MG tablet Take 20 mg by mouth in the morning and 20 mg before bedtime. Active ferrous sulfate 325 mg delayed release oral tablet (3 sources)Start: 82-86-4852yeik 1 tablet by mouth twice dailyferrous sulfate 325 mg oral enteric coated tablet 325 mg = 1 tab(s), Oral, BID, Refills(s) 0 Start Date: 04/13/24 Status: OrderedStart: 03-82-2805lopx 1 tablet by mouth twice dailyferrous sulfate 325 (65 FE) mg tablet 1 tablet Orally Twice Daily for 30 days 03/28/2024 ActivehydrALAZINE hydrochloride 100 mg oral tablet (13 sources)Arteriolar VasodilatorStart: 60-45-1261ktjnSMZOYRX (Apresoline) 100 MG tablet Take 100mg twice daily 05/20/2023 Activelatanoprost 0.05 mg/ml ophthalmic solution (16 sources)Prostaglandin AnalogStart: 41-09-4585cfuhgrygzzs (Xalatan) 0.005 % ophthalmic solution 1 (one) time each day at the same time 05/16/2023ctive Start: 56-12-4389Alilzajuqkr 0.005 % Solution ophthalmic solution 05/16/2023 ActiveStart: 54-73-9928kmwyscwgeut (XALATAN) 0.005 % ophthalmic solution Administer 1 drop to both eyes. 05/16/2023 ActiveStart: 70-99-1742nfzc 1 drop(s) into the eye(s) once daily at bedtimelatanoprost ophthalmic 0.005% solution 1 drop(s), OPTH, Once a day (at bedtime), 2.5 mL, Refill(s) 0 Start Date: 11/14/20 Status: Orderedliothyronine sodium 0.005 mg oral tablet (16 sources)l-TriiodothyronineStart: 62-24-2801zybi 2 tablets by mouth once dailyliothyronine 5 mcg Tab 10 mcg = 2 tab(s), Oral, Daily, Refills(s) 0 Start Date: 04/13/24 Status: OrderedStart: 36-39-4208yhbppxomfemr (Cytomel) 5 MCG tablet 5 mcg in the morning and 5 mcg before bedtime. 05/16/2023 ActiveStart: 19-46-7829hkzs 2 tablets by mouth once dailyLiothyronine 5 MCG tablet Take 2 tablets by mouth daily. 05/16/2023 ActiveMagnesium (15 sources)magnesium 250 MG tablet 1 (one) time each day at the same time Activemagnesium 250 mg tablet Take 1 tablet (250 mg total) by mouth. Activetake 1 tablet by mouth once daily at lunchmagnesium 250 mg Tab Take 1 (one) tablet (250 mg total) by mouth daily with lunch . ActiveMagnesium (V-R MAGNESIUM) 250 MG tablet Take 1 tablet by mouth. Activetake 1 tablet by mouth once daily at lunchmagnesium 250 mg Tab Take 1 (one) tablet (250 mg total) by mouth daily with lunch . 0 ActiveMagnesium (V-R MAGNESIUM) 250 MG tablet Take 1 tablet by mouth. 0 Activemagnesium oxide 250 mg oral tablet (1 source)Start: 65-31-5642tsxp 1 tablet by mouth twice dailymagnesium oxide 250 mg oral tablet 250 mg = 1 tab(s), Oral, BID, Refills(s) 0 Start Date: 04/13/24 atus: Orderedmetoprolol tartrate 50 mg oral tablet (7 sources)beta-Adrenergic BlockerStart: 03-15-2024 End: 60-77-8014kkakqqehqb tartrate (LOPRESSOR) 50 mg tablet Take 1 tablet (50 mg total) by mouth. 03/15/2024 05/14/2024 Activetake 1 tablet by mouth three times dailyMetoprolol succinate 50 MG tablet XL Take 1 tablet by mouth 3 (three) times a day. Activerivaroxaban 20 mg oral tablet (16 sources)Factor Xa InhibitorStart: 73-44-4157kjgv 1 tablet by mouth once dailyXarelto 20 MG tablet Take 1 tablet by mouth daily. 05/18/2023 Active simvastatin 10 mg oral tablet (13 sources)HMG-CoA Reductase InhibitorStart: 78-71-2990skhe 1 tablet by mouth in the morningsimvastatin (Zocor) 10 MG tablet Take 10 mg by mouth in the morning and 10 mg before bedtime. 05/29/2023 Vdyuam65 hr timolol 5 mg/ml ophthalmic solution (20 sources)beta-Adrenergic BlockerStart: 32-64-7250sdoc 1 drop(s) into the eye(s) twice dailyTimolol maleate 0.5 % Solution ophthalmic solution Place 1 drop in both eyes 2 times daily. 30 mL ActiveStart: 58-03-3537lsqi 1 drop(s) into the eye(s) in the morningtimolol (Timoptic) 0.5 % ophthalmic solution 1 drop in the morning and 1 drop before bedtime. 05/09/2023 Active Start: 05-09-2023 End: 09-42-1444rwat 1 drop(s) into the eye(s) twice dailyTimolol maleate 0.5 % Solution ophthalmic solution Place 1 drop in both eyes 2 times daily. 30 mL 3 11/21/2024 ActiveStart: 27-69-8998Ynaqajf maleate 0.5 % Solution ophthalmic solution 05/09/2023 ActiveStart: 82-48-2553aixfmer (TIMOPTIC) 0.5 % ophthalmic solution every night at bedtime . 05/09/2023 ActiveStart: 18-45-1746Gzserhn Maleate (Eqv-Istalol) 0.5% ophthalmic solution Refill(s) 0 Start Date: 11/14/20 Status: Orderedtake 1 drop(s) into the eye(s) twice dailytimoloL (BETIMOL) 0.25 % ophthalmic solution 1 (one) drop 2 (two) times a day . Active Completed/Discontinued Medications MedicationDrug Class(es)DatesSig (Normalized)Sig (Original)amiodarone hydrochloride 200 mg oral tablet (6 sources)AntiarrhythmicStart: 05-06-2023 End: 46-21-1179ksngxokzip (CORDARONE) 200 MG tablet Take by mouth . 0 05/06/2023 06/28/2023 Discontinued (Therapy completed) Problems Active Problems Problem ClassificationProblemDateDocumented DateEpisodic/ChronicCardiac dysrhythmias (20 sources)Unspecified atrial fibrillation; Translations: [Paroxysmal atrial fibrillation]Onset: 289465-08-3141JvebsikEfjnebo dysrhythmias (4 sources)Palpitations; Translations: [PALPITATIONS]Onset: 53-58-8735Hqshclej Cataract (2 sources)After-cataract of left eye; Translations: [Other secondary cataract, left eye]65-23-2507UvylwfrOesicjzoqc disorders (13 sources)Cardiac pacemaker in situ; Translations: [Presence of cardiac pacemaker]Onset: 185334-72-1083KxdwzbsWhzribrtlj heart failure; nonhypertensive (13 sources)Unspecified diastolic (congestive) heart failure; Translations: [Acute combined systolic (congestive) and diastolic (congestive) heart failure] Onset: 33-27-4108ShoemaxUyxirfkf atherosclerosis and other heart disease (1 source)History of myocardial eagqxdrsfi67-74-5769BscqfshSbokrwlvmn and other anemia (2 sources)Iron deficiency anemia; Translations: [Iron deficiency anemia, unspecified]Onset: 89-36-5427OfmurnsaZlvvpfxyw of lipid metabolism (5 sources)Pure hypercholesterolemia, unspecified; Translations: [Hyperlipidemia, unspecified]Onset: 940100-53-6872WntughaGavqbumdd hypertension (8 sources)Hypertensive disorder; Translations: [Essential (primary) hypertension]Onset: 721591-95-8119KcfjpghYfdrm and electrolyte disorders (1 source)Hypokalemia; Translations: [HYPOKALEMIA]Onset: 59-72-4626Prksusph Gastrointestinal hemorrhage (1 source)Gastrointestinal jegxvhpuxj99-03-5188SfwoyjksKxrfmhwn (10 sources)Primary open angle glaucoma; Translations: [Primary open-angle glaucoma, bilateral, indeterminate stage]Onset: 290059-53-4440Vcgvjzd Headache; including migraine (3 sources)Headache; including migraine; Translations: [HEADACHE UNSPECIFIED] Onset: 26-93-3114Jpkmw valve disorders (3 sources)Aortic valve regurgitation; Translations: [Mitral valve regurgitation]55-44-9077BothhcoBtnnzetpsxgi with complications and secondary hypertension (2 sources)Hypertensive heart disease with heart failure; Translations: [Hypertensive urgency]Onset: 24-45-5446FukaepwYpzrltvqvv disorders (4 sources)Other primary ovarian failure; Translations: [OTHER PRIMARY OVARIAN FAILURE]Onset: 74-26-7947OrvcnrhAclrizyejvgx breast conditions (1 source)Fibrocystic disease of emiutx45-12-5970UlcqvgiKnhvbczta or stenosis of precerebral arteries (2 sources)Occlusion and stenosis of bilateral carotid arteries; Translations: [Occlusion and stenosis of bilateral carotid arteries]Onset: 93-18-7878Mhselso Osteoarthritis (1 source)Neuortxwzavhdv89-09-8310QnfibhbCvdxo and ill-defined heart disease (1 source)Wmvqbcxudafo46-14-5700QibvswqSaond and ill-defined heart disease (1 source)Ventricular jygbyszagrg47-17-8220GwdyuqzVonfk bone disease and musculoskeletal deformities (1 source)Veedeiceiy59-78-9778XcmedmglUfpsf eye disorders (3 sources)Disorder of lacrimal gland; Translations: [Dry eye syndrome of bilateral lacrimal glands]Onset: 185938-25-9805JtqrpoxrVahts eye disorders (1 source)Dry eye syndrome of bilateral lacrimal glands; Translations: [Dry eye syndrome of bilateral lacrimal glands]Onset: 38-72-6249ObqvjimqJfguy gastrointestinal disorders (1 source)Abnormal feces; Translations: [Other fecal abnormalities]Onset: 99-76-4716IetazpydDkbyy gastrointestinal disorders (1 source)H/O: gastrointestinal disease; Translations: [Personal history of other diseases of the digestive system]Onset: 43-93-8141DlglqjrwUpmtm gastrointestinal disorders (1 source)History of djjhsoeee14-54-6522XdkeketjMnxtc gastrointestinal disorders (1 source)Occult blood in dgqzoa98-83-0016XwaglqakUktha lower respiratory disease (4 sources)Shortness of breath; Translations: [SHORTNESS OF BREATH]Onset: 74-16-6145FgxpcxbeFyeau lower respiratory disease (1 source)Hnxrcgl66-20-3156CmecjildPapwv lower respiratory disease (1 source)Multiple nodules of fvuu27-76-0228BpadxafpNffks non-epithelial cancer of skin (1 source)Basal cell carcinoma of dcfs67-65-5514BtxbgtbqOxuwq skin disorders (1 source)Epidermoid neqk17-05-1354HpssqifaQagkgmf cyst (9 sources)Unspecified ovarian cyst, right side; Translations: [Cyst of right ovary]Onset: 479654-91-1504SzesluxlEmfh-; endo-; and myocarditis; cardiomyopathy (except that caused by tuberculosis or sexually transmitted disease) (2 sources)Pericardial effusion; Translations: [Pericardial effusion]03-29-2024 EpisodicResidual codes; unclassified (1 source)Obstructive sleep apnea raspxvht15-68-0722YktlrbwGabsein (1 source)Ynieyup70-59-7436FkwfsngzYycwdpc disorders (6 sources)Hypothyroidism, unspecified; Translations: [Hypothyroidism]Onset: 88-24-8085KhlnfdzCnydoxwjt cerebral ischemia (1 source)Transient cerebral zpaafgqg51-92-7845GdyzwlfSlquwkrllyha (3 sources)LOW BACK PAIN, UNSPECIFIED; Translations: [LOW BACK PAIN, UNSPECIFIED]Onset: 77-67-0891Rfmdstpmkprm (1 source)PERSONAL HISTORY OF COVID-19; Translations: [PERSONAL HISTORY OF COVID-19]Onset: 24-12-5724Yzhobjfkqnfv (2 sources)Other persistent atrial fibrillation; Translations: [Other persistent atrial fibrillation]Onset: 15-68-9360Rhnvyxldtxsd (1 source)Other pericardial effusion (noninflammatory); Translations: [Other pericardial effusion (noninflammatory)]Onset: 06-00-5605Xslogrosshvf (1 source)New PatientOnset: 39-83-2934Nqxetidibkya (1 source)Sebaceous cyst of pwug45-33-3217Bsyyhcxqzbgr (2 sources)Lung Nodule; Translations: [Lung Nodule]Onset: 39-36-7937Jiehkfqvwuir (2 sources)Pain in pelvis; Translations: [Pelvic pain]06-11-2025 Past or Other Problems Problem ClassificationProblemDateDocumented DateEpisodic/Chronic Administrative/social admission (4 sources)Encounter for other administrative examinations; Translations: [ENCOUNTER OTH ADMIN EXAMINATIONS]Onset: 64-85-2467DyrwomhjRuobiudkam and other anemia (1 source)Anemia, unspecified; Translations: [ANEMIA UNSPECIFIED]Onset: 29-92-0369DqzvjrnaOukccxmg mellitus without complication (2 sources)Impaired fasting glucose; Translations: [Other abnormal glucose] Onset: 47-55-5433NcilqjmuEmipamt and fatigue (1 source)Other fatigue; Translations: [OTHER FATIGUE]Onset: 89-40-0146Ploslfjd Other aftercare (1 source)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; Translations: [OTH [facility] CURRENT DRUG THERAPY]Onset: 85-00-3942NxovfleiItwtz lower respiratory disease (2 sources)Other nonspecific abnormal finding of lung field; Translations: [Other nonspecific abnormal findingof lung field]Onset: 74-52-8071YgjkgzafAhxfj screening for suspected conditions (not mental disorders or infectious disease) (10 sources)Encounter for screening for malignant neoplasm of rectum; Translations: [Encounter for screening for osteoporosis]Onset: 03-22-2022 EpisodicPleurisy; pneumothorax; pulmonary collapse (5 sources)Pleural effusion; Translations: [Pleural effusion, not elsewhere classified]Onset: 105226-44-0809LzdwmwtuJfjavehl codes; unclassified (1 source)Acquired absence of other specified parts of digestive tract; Translations: [ACQ ABSENCE OTH PART DIGESTV TRACT]Onset: 59-96-6288Seqljzsy Unclassified (1 source)LOW BACK PAIN, UNSPECIFIED; Translations: [LOW BACK PAIN, UNSPECIFIED] Onset: 87-33-6025Sgcqmrbaiyux (1 source)Other pericardial effusion (noninflammatory); Translations: [Other pericardial effusion (noninflammatory)]Onset: 03-29-2024 Results Test NameValueInterpretationReference RangeFacilityC Fungalon 06-14-2025 Fungal Final No growth at 4 weeks.[facility] Bing, MD, Cancer CenterComment on above: Performed By: #### FC #### [facility] [address] [place], [place] [address]Fkqhvk-Zihi 88-11-8457Mwjrmc-[id number] JuleeSarahpollo Oneal 1935 F Date Provider Department Center 06/04/2025 CHILANGO ZAMORA Family History Problem Relation Age of Onset Lung cancer Mother's Sister Family Status - Relation Status Age at Mother Father Brother Mother's Sister Level of Service:93974 AR OFFICE/OUTPATIENT ESTABLISHED MOD MDM 30 MIN Reason for Visit and Comments: Atrial Fibrillation [80] - Had EKG and labs a few weeks ago. Denies bleeding on Xarelto. Sinus pause [Other] Congestive Heart Failure [127] - Had echo in February 2025. Pulmonary Hypertension [818] Hyperlipidemia [182] Hypertension [270687] - She said Dr. Austin started her on hydralazine recently because her BP's were running high. Pacemaker Check [337] - Device was interrogated in the office 2 weeks ago.[facility] HospitalOCT OPTIC NERVE OUon 37-99-2902KIS OPTIC NERVE OUSee Togus VA Medical CenterOphthalmic OCT panelon 30-23-1071Npp noteORDEROUTOSU Memorial Health SystemRadiology Study observation (narrative)[facility] Health SystemOperative Reporton 05-17-2025 Operative ReportIndication for Surgery Right thumb nail avulsion with [...] she underwent IV sedation. Patient was given antibioticspreoperatively. Patient had right hand upper extremity prepped in sterile fashion. Timeout was performed with confirmation of antibiotics. Patient at this point in time had monitored anesthesia care with sedation. At this point time she underwent injection of 9 cc of quarter percent plain Marcaine.Following this patient was numb we tested her [...] 5 mm laceration in the nailbed. Bone wasexposed of the distal phalanx. Patient had irrigation with Irrisept and curetting of the open woundand the exposed distal phalanx. Patient had curetting of the open distal phalanx cortical irregularity/fracture due to the open injury to prevent infection.. Patient had at this point in time irrigation of the nail bed. Patient following thorough irrigation had preparation and repair of the nailbed utilizing 6-0 Vicryl under three 3.5 loupe magnification. Patient tolerated procedure well. At thispoint in time patient was awake during the [...] signed by Bruce Vicente MD 05/17/25 16:03 [facility]36on created a document. Please print and send to them. Thanks![facility]36Hi Natacha. You saw this patient in December 2024, and she's due back next month for 6 mo follow up. [facility] is requesting STAT clearance for thumb nail debridement and laceration repair under local and MAC anesthesia. She is on Xarelto 20mg daily according to last office note. She had CXR, labs, and EKG this morning at [facility]. Results are scanned into media reporter for your review. Please advise. Thanks so much![facility] Documentationon [id number] Karen Gifford 1935 F Date Provider Department Center 05/15/2025 CHILANGO ZAMORA CARD [facility] Family History Problem Relation Age of Onset Lung cancer Mother's Sister Family Status - Relation Status Age at Mother Father Brother Mother's SisterNoalUKettering Health MiamisburgOrders Onlyon 05-15-2025 Orders [id number] Karen Gifford 1935 F Provider Department Center 05/15/2025 [facility] Family History Problem Relation Age of Onset Lung cancer Mother's Sister Family Status - Relation Status Age at Mother Father Brother Mother's SisterRegency Hospital Cleveland WestProgress Note-Nurseon 04-88-3976Lrdwopiw Note-NurseLEFT MESSAGE WITH PATIENT. RN WILL CALL BACK AROUND 3 PM FOR PSS INTERVIEW. Electronically signed by Daija Dhillon 05/15/25 11:40 EDT PSS PHONE CALL COMPLETED WITH PATIENT. Electronically signed by Daija Dhillon 05/16/25 10:13 EDTNoTwin City Hospital36on [id number] Catherine MA Please let her know her ECHO looks good. She has some mild regurgitation or leaky mitral and aortic valves. Nothing to do but monitor, follow-up ECHO in 1 year. It showed normal pumping function. No evidence of an effusion or fluid collected around the heart. Advised patient of Natacha Berry findings. Patient verbalized understanding and agreed with plan of care.[facility] CHE[facility] WO IV CONTRASTon 93-49-9775BD CHEST WO IV CONTRASTCT CHEST WO IV CONTRAST 01/30/2025 11:04 AM [...] 6 months is advised. Electronically signed: Donato Calero 8Invalid Interpretation CodeUnUniversity Hospitals Conneaut Medical CenterOffice Visiton 38-89-9605Mkqptv-up [id number] Karen Gifford 1935 F Date Provider Department Center 01/30/2025 37524-NNTUFABIOLA NUNEZ [facility] PULM Comprehensiv Family History Problem Relation Age of Onset Lung cancer Mother's Sister Family Status - Relation Status Age at Mother Father Brother Mother's Sister Level of Service:03546 AR OFFICE/OUTPATIENT ESTABLISHED LOW MDM 20 MIN (GC) Reason for Visit and Comments: Lung Nodule [519] Pleural Effusion [Other]NormalUnUniversity Hospitals Conneaut Medical CenterOffice Visiton 62-10-8658Hbskvz-up [id number] Karen Gifford 1935 F Date Provider Department Center 12/13/2024 CHILANGO ZAMORA [facility] Family History Problem Relation Age of Onset Lung cancer Mother's Sister Family Status - Relation Status Age at Mother Father Brother Mother's Sister Level of Service:30961 AR OFFICE/OUTPATIENT ESTABLISHED MOD MDM 30 MIN Reason for Visit and Comments: Atrial Fibrillation [80] Hypertension [492881]NormalUnUniversity Hospitals Conneaut Medical CenterHVF 24-2 STANDARD - OUon 62-55-1417HCO 24-2 STANDARD - OUSee [facility] Medical CenterPerimetry studyon 27-92-2040Abv noteRADIOLOGYOSUniversity Hospitals Ahuja Medical CenterRadiology Study observation (narrative)[facility] Office Visiton 82-45-0366Hyctpu-up [id number] Karen Gifford 1935 F Provider Department Center 06/26/2024 JJ ELENA [facility] Family History Problem Relation Age of Onset Lung cancer Mother's Sister Family Status - Relation Status Age at Mother's Sister Level of Service:85692 AR OFFICE/OUTPATIENT ESTABLISHED LOW MDM 20 MINNoal [facility] HospitalOCT OPTIC NERVE OUon 25-44-4242KSG OPTIC NERVE OUSee [facility] Medical CenterOphthalmic OCT panelon 44-43-8161Ast noteRADIOLOGYOSUniversity Hospitals Ahuja Medical CenterRadiology Study observation (narrative)[facility] Health SystemCA 125on 02-94-1672Uhmtfe Ag 125 Qn68 [arb'U]/mLHigh0 - 35 U/mLProMedica Health SystemComment on above: The method used for this test is Nilton Holly DXI chemiluminescent immunoassay. Values obtained by different assay methods cannot be used interchangeably. Cancer Ag 125 Qnon 50-36-3109Cujhjcfafowsqs and review of laboratory results AbnormalProGalion Community HospitalProCleveland Clinic Mentor Hospital SystemCA 27385 U/mLHigh0-35 ProMedica [facility] CenterComascension macomb[facility] on above:Result Comment: The method used for this test is Nilton Holly DXI chemiluminescent immunoassay. Values obtained by different assay methods cannot be used interchangeably.Performed By: #### 35154-5 #### [facility] ([id number]) [address] [place] [address], [address] [place], [place] [address]QJ PELVISon 45-64-0514[place] [address] Ultrasound Report Signed Patient: KAREN GIFFORD MR#: [id number] : 1935 Acct:[id number] Age/Sex: 88 / F ADM Date: 02/27/24 Loc: [facility] Attending Dr: Lan Hennessy D.O. Ordering Physician: Lan Hennessy D.O. Date of Service: 02/27/24 Procedure(s): US pelvis Accession Number(s): [id number] cc: Lan Hennessy D.O.; Vincenzo Austin M.D. [address] [address] Patient Name: KAREN GIFFORD MRN: [id number] date: 1935 Sex: F Assigned Patient Location: [facility] Current Patient Location: [facility] Accession/Order Number: [id number] Exam Date: 02/27/2024 10:40 Report Date: 02/27/2024 11:40 At the request of: LAN HENNESSY Procedure: US pelvis EXAMINATION: US pelvis [...] right adnexal cyst Electronically authenticated by: JAY RACHEL Date: 02/27/2024 11:40 Dictated By: Jay Rachel M.D. Signed By: 02/27/24 1142 DD/ 1140 TD/TT: Blade Filer:TBHRadiology, Radiologist, - 02/27/2024 [place] [address] Ultrasound Report Signed Patient: KAREN GIFFORD MR#: [id number] : 1935 Acct:[id number] Age/Sex: 88 / F ADM Date: 02/27/24 Loc: [facility] Attending Dr: Lan Hennessy D.O. Ordering Physician: Lan Hennessy D.O. Date of Service: 02/27/24 Procedure(s): US pelvis Accession Number(s): [id number] cc: Lan Hennessy D.O.; Vincenzo Austin M.D. [facility] [place] [id number] Patient Name: KAREN GIFFORD MRN: [id number] date: 1935 Sex: F Assigned Patient Location: [facility] Current Patient Location: [facility] Accession/Order Number: [id number] Exam Date: 02/27/2024 10:40 Report Date: 02/27/2024 11:40 At the request of: LAN HENNESSY Procedure: US pelvis EXAMINATION: US pelvis [...] right adnexal cyst Electronically authenticated by: JAY RACHEL Date: 02/27/2024 11:40 Dictated By: Jay Rachel M.D. Signed By: 02/27/24 1142 DD/ 1140 TD/TT: Blade Filer: [facility] HealthcareRadiology Study observation (narrative)[facility] HealthcareUS PELVIS Ordered By: Radiologist Radiology on 59-45-3170[facility] Work Phone: Perimetry studyon 80-99-4010Cuj noteRADIOLOGYOSU Memorial Health SystemRadiology Study observation (narrative)[facility] SystemEC 12 leadon 84-78-5716Tpgwjn RateOhioHealthP AxisOhioHealthP-R Interval OhioHealthQ-T IntervalOhioHealthQ-T Interval (corrected)OhioHealthQRS Duration OhioHealthQTC Calculation (Bezet)OhioHealthR AxisOhioHealthT AxisOhioHealth Ventricular RateOhioHealthOhioHealthOphthalmic OCT panelon 50-39-6643Csx note RADIOLOGYOSU Memorial Health SystemRadiology Study observation (narrative)[facility] Health SystemYAG LASER-OSon 51-08-6843Ojd noteOSU Memorial Health System OSUniversity Hospitals Ahuja Medical CenterBasic Metabolic Profon 03-13-6544Imtsy gap [Moles/Vol]9 mmol/LNormal9-17Mart[facility] Ferry HospitalComment on above:Performed By: #### BMP, BNP #### [facility] [address] [place] [address] [place] [address] Facing Slitter: Jay Peter MDBUN/CRE Ttxmm39Lzruot7-83Pmsej [facility] Comment on above:Performed By: #### BMP, BNP #### [facility] [address] [place] [address] Facing Slitter: TALISHA Edwardsalcium [Mass/Vol]9.0 mg/dLNormal8.6-10.4[facility] Ferry HospitalComment on above:Performed By: #### BMP, BNP #### [facility] [address] [place] [address] Facing Slitter: TALISHA Edwardshloride [Moles/Vol]96 mmol/UAjv15-487CncjtMartins Ferry HospitalComment on above:Performed By: #### BMP, BNP #### [address] [place], [place] [address] Facing Slitter: TALISHA EdwardsO2 [Moles/Vol]28 mmol/WAilxnf07-82OtbrjMartins Ferry HospitalComment on above:Performed By: #### BMP, BNP #### [facility] [address] [place] [address] Facing Slitter: TALISHA Edwardsreatinine [Mass/Vol]0.9 mg/dLNormal0.5-0.9[facility]erry HospitalComment on above:Performed By: #### BMP, BNP #### [address] [place] [address] Facing Slitter: Jay Peter MDGFR/1.73 sq M.predicted among non-blacks MDRD (S/P/Bld) [Vol rate/Area]mL/min/{1.73_m2}Normal>60[facility] Ferry HospitalComment on above:Result Comment: These results are not intended for [...] or following therapy that affects renal tubular secretion.Performed By: #### BMP, BNP #### [facility] [address] [place] [address] [place] [address] Facing Slitter: Jay Peter MDGlucose [Mass/Vol]162 mg/wJJdzi10-48PvgohMercy Health St. Elizabeth Youngstown HospitalComment on above:Performed By: #### BMP, BNP #### [address] [place] [address] Facing Slitter: IGLESIA Edwardsotassium [Moles/Vol]4.3 mmol/LNormal3.7-5.3[facility] Hospital For Special CareComment on above:Performed By: #### BMP, BNP #### [address] [place], [place] [address] Facing Slitter: STEVEN Edwardsodium [Moles/Vol]133 mmol/JGjv728-916AlbybMartins Ferry HospitalComment on above:Performed By: #### BMP, BNP #### [address] [place] [address] Facing Slitter: Jay Peter MDUrea nitrogen [Mass/Vol]9 mg/dLNormal8-23Mart[facility] Ferry HospitalComment on above:Performed By: #### BMP, BNP #### [address] [place], [place] [address] Facing Slitter: Jay Peter MDBrain Natri. Peptideon 63-51-9820Ylznkonlklk peptide B (Bld) [Mass/Vol]1518 pg/mLHigh<300MerMidState Medical CenterComment on above:Result Comment: An age-independent cutoff point of 300 pg/ml has a 98% negative predictive value excluding acute heart failure.Performed By: #### BMP, BNP #### [address] [place] [id number] Facing Slitter: IGLESIA EdwardsROF CHEM 8 (BAS METB)on 92-35-7196Cknyc gap [Moles/Vol]10.1 mmol/LNormalFisher-Titus Medical CenterComment on above:Performed By: #### LIPID, T7, CMP, TSH #### [facility] [address] [place] [address] Dr. Jorge GlaserCalcium [Mass/Vol]9.1 mg/dLNormal8.5-10.1[facility] Comment on above:Performed By: #### LIPID, T7, CMP, TSH #### [facility] [address] [place] [address] Dr. Jorge GlaserChloride [Moles/Vol]98 mmol/SCxzbgb32-478Lkv [facility] Comment on above:Performed By: #### LIPID, T7, CMP, TSH #### [facility] [address] [address] [address] Jorge GlaserCO2 [Moles/Vol]32.1 mmol/LCritically high21.0-32.0The [facility] HospitalComment on above:Performed By: #### LIPID, T7, CMP, TSH #### [facility] [address] [address] [address] Jorge GlaserCreatinine [Mass/Vol]0.93 mg/dLNormal0.55-1.02The [facility] HospitalComment on above:Performed By: #### LIPID, T7, CMP, TSH #### [facility] [address] [address] [address] Patel ChangEGFR-AF MALAGASY>60Normal>=60The [facility] HospitalComment on above:Performed By: #### LIPID, T7, CMP, TSH #### [facility] [address] [place] [address] Dr. Jorge WuGFR-NON AF LKXNPBWQ25 mL/min/1.49b8Oehwezzyzf low>=60The [facility] HospitalComment on above:Performed By: #### LIPID, T7, CMP, TSH #### [facility] [address] [place] [address] Dr. Jorge lGaserGlucose [Mass/Vol]103 mg/sKJyjjkz02-515Ewj [facility] Comment on above:Performed By: #### LIPID, T7, CMP, TSH #### [facility] [address] [place] [address] Dr. Jorge GlaserPotassium [Moles/Vol]4.2 mmol/LNormal3.5-5.1The [facility] Comment on above:Performed By: #### LIPID, T7, CMP, TSH #### [facility] [address] [place] [address] Dr. Jorge GlaserSodium [Moles/Vol]136 mmol/LMmnezd243-036Pft [facility] Comment on above:Performed By: #### LIPID, T7, CMP, TSH #### [facility] [address] [place] [address] Dr. Jorge Robles nitrogen [Mass/Vol]16.0 mg/dLNormal7.0-18.0The [facility] HospitalComment on above:Performed By: #### LIPID, T7, CMP, TSH #### [facility] [address] [place] [address] Dr. Jorge Robles nitrogen/Creatinine [Mass ratio]17.2 mg/mgNormalThe [facility] HospitalComment on above:Performed By: #### LIPID, T7, CMP, TSH #### [facility] [address] [place] [address] Dr. Jorge Cabrales 89-34-4048Idkipvstoje peptide B (Bld) [Mass/Vol]379.0 pg/mL Normal<=1,800.0The [facility] HospitalComment on above:Performed By: #### LIPID, T7, CMP, TSH #### [facility] [address] [place] [address] Dr. Jorge Jacinto AUTO DIFFon 99-63-0944GKTN #0.1 103/ulNormal0.0-0.1Fisher-Titus Medical CenterComment on above:Performed By: #### CBC #### [facility] [address] [place] [address] Dr. Jorge Yisophils/100 WBC (Bld)1.3 %Normal0.2-2.0The [facility] Comment on above:Performed By: #### CBC #### [facility] [address] [place] [address] Dr. Jorge Mary #0.2 103/ulNormal0.0-0.7The [facility] HospitalComment on above: Performed By: #### CBC #### [facility] [address] [place] [address] Dr. Jorge Wuosinophils/100 WBC (Bld)3.1 %Normal0.9-7.0The [facility] Comment on above:Performed By: #### CBC #### [facility] [address] [place] [address] Dr. Jorge Wurythrocyte distribution width (RBC) [Ratio]14.4 %Ptgidb80.0-15.0 The [facility] Hospitalment on above:Performed By: #### CBC #### [facility] [address] [place] [address] Dr. Jorge GlaserHematocrit (Bld) [Volume fraction]36.1 %Fejabs69.0-48.0The [facility] HospitalComment on above:Performed By: #### CBC #### [facility] [address] [place] [address] Dr. Jorge GlaserHemoglobin (Bld) [Mass/Vol]11.5 g/dLCritically low12.0-16.0The [facility] Hospitalment on above:Performed By: #### CBC #### [facility] [address] [place] [address] Dr. Jorge Augustine #0.05 10e3/ulCritically high0.00-0.03The [facility] Comment on above:Performed By: #### CBC #### [facility] [address] [place] [address] Dr. Jorge Augustine %0.6 %Critically high0.0-0.5The [facility] Hospitalment on above:Performed By: #### CBC #### [facility] [address] [place] [address] Dr. Jorge JonesH #1.7 103/ulNormal1.2-3.8The [facility] HospitalComment on above:Performed By: #### CBC #### [facility] [address] [place] [address] Dr. Jorge Joneshocytes/100 WBC (Bld)21.2 %Gkqenl71.5-60.0The [facility] HospitalComment on above:Performed By: #### CBC #### [facility] [address] [place] [address] Dr. Jorge PinedoUAL DIFF REQNONormalThe [facility] HospitalComment on above: Performed By: #### CBC #### [facility] [address] [address] [address] Jorge Cox (RBC) [Entitic mass]27.3 jpIhhoyo53.7-34.0The [facility] HospitalComment on above:Performed By: #### CBC #### [facility] [address] [place] [address] Dr. Jorge Cox (RBC) [Mass/Vol]31.9 g/eWLomrcp20.9-35.2The [facility] HospitalComment on above:Performed By: #### CBC #### [facility] [address] [place] [address] Dr. Jorge Cox (RBC) [Entitic vol]85.5 eZJbkemj94.0-99.0The [facility] HospitalComment on above:Performed By: #### CBC #### [facility] [address] [place] [address] Dr. Jorge Noland #0.8 103/ulNormal0.3-0.8The [facility] HospitalComment on above:Performed By: #### CBC #### [facility] [address] [place] [address] Dr. Jorge Posadaocytes/100 WBC (Bld)10.5 %Normal1.7-12.0The [facility] Comment on above:Performed By: #### CBC #### [facility] [address] [place] [address] Dr. Jorge Vincent #4.9 103/ulNormal1.4-6.5The [facility] HospitalComment on above:Performed By: #### CBC #### [facility] [address] [place] [address] Dr. Jorge Francoutrophils/100 WBC (Bld)63.3 %Abjudv01.0-75.0The [facility] HospitalComment on above:Performed By: #### CBC #### [facility] [address] [place] [address] Dr. Jorge Sandhulet mean volume (Bld) [Entitic vol]8.7 fLCritically low 9.5-13.5The [facility] HospitalComment on above:Performed By: #### CBC #### [facility] [address] [place] [address] Dr. Jorge GlaserPLT226 103/soYidryn110-726Abh [facility] HospitalComment on above: Performed By: #### CBC #### [facility] [address] [place] [address] Dr. Jorge GlaserRBC4.22 106/ulNormal4.20-5.40The [facility] HospitalComment on above:Performed By: #### CBC #### [facility] [address] [place] [address] Dr. Jorge GlaserWBC7.8 103/ulNormal4.0-11.0The [facility] HospitalComment on above: Performed By: #### CBC #### [facility] [address] [place] [address] Dr. Jorge Delgado THYROXINE INDEX T7on 94-77-7199RPB2.61Fxjike5.30-4.50The [facility] HospitalComment on above:Performed By: #### LIPID, T7, CMP, TSH #### [facility] [address] [place] [address] Dr. Jorge GlaserT3U31.0 %Rxhogy29.0-39.0The [facility] HospitalComment on above: Performed By: #### LIPID, T7, CMP, TSH #### [facility] [address] [place] [address] Dr. Jorge GlaserT4 [Mass/Vol]7.00 ug/dLNormal4.80-13.90The [facility] Comment on above:Performed By: #### LIPID, T7, CMP, TSH #### [facility] [address] [place] [address] Dr. Jorge Kwok 14(COMP METB)on 09-68-9519Egjcdag [Mass/Vol]3.5 g/dLNormal 3.4-5.0The [facility] HospitalComment on above:Performed By: #### LIPID, T7, CMP, TSH #### [facility] [address] [address] [address] Jorge GlaserAlbumin/Globulin [Mass ratio]0.9 {ratio}NormalThe [facility] Hospitalment on above:Performed By: #### LIPID, T7, CMP, TSH #### [facility] [address] [address] [address] Jorge DanielsP [Catalytic activity/Vol]56 U/DIdtuhd31-465Mjt [facility] HospitalComment on above:Performed By: #### LIPID, T7, CMP, TSH #### [facility] [address] [address] [address] Jorge Correia [Catalytic activity/Vol]28 U/GLhmohr68-95Ndi [facility] HospitalComment on above:Performed By: #### LIPID, T7, CMP, TSH #### [facility] [address] [place] [address] Dr. Jorge Schraderon gap [Moles/Vol]10.2 mmol/LNormalThe [facility] Comment on above:Performed By: #### LIPID, T7, CMP, TSH #### [facility] [address] [place] [address] Dr. Jorge GlaserAST [Catalytic activity/Vol]20 U/WZncviz21-31Skz [facility] HospitalComment on above:Performed By: #### LIPID, T7, CMP, TSH #### [facility] [address] [address] [address] Jorge GlaserBilirubin [Mass/Vol]0.4 mg/dLNormal0.2-1.0The [facility] Comment on above:Performed By: #### LIPID, T7, CMP, TSH #### [facility] [address] [place] [address] Dr. Jorge GlaserCalcium [Mass/Vol]9.8 mg/dLNormal8.5-10.1The [facility] Comment on above:Performed By: #### LIPID, T7, CMP, TSH #### [facility] [address] [address] [address] Jorge GlaserChloride [Moles/Vol]93 mmol/LCritically vke00-467Qmk [facility] Hospitalment on above:Performed By: #### LIPID, T7, CMP, TSH #### [facility] [address] [address] [address] Jorge GlaserCO2 [Moles/Vol]34.5 mmol/LCritically high21.0-32.0The [facility] HospitalComment on above:Performed By: #### LIPID, T7, CMP, TSH #### [facility] [address] [place] [address] Dr. Jorge GlaserCreatinine [Mass/Vol]1.01 mg/dLNormal0.55-1.02The [facility] Hospitalment on above:Performed By: #### LIPID, T7, CMP, TSH #### [facility] [address] [place] [address] Dr. Jorge WuGFR-AF MALAGASY>60Normal>=60The [facility] HospitalComment on above:Performed By: #### LIPID, T7, CMP, TSH #### [facility] [address] [place] [address] Dr. Jorge WuGFR-NON AF FJCKGODH65 mL/min/1.02v2Mugvifglcm low>=60The [facility] HospitalComment on above:Performed By: #### LIPID, T7, CMP, TSH #### [facility] [address] [place] [address] Dr. Jorge GlaserGlobulin (S) [Mass/Vol]4.0 g/dLNormalThe [facility] HospitalComment on above:Performed By: #### LIPID, T7, CMP, TSH #### [facility] [address] [place] [address] Dr. Jorge GlaserGlucose [Mass/Vol]103 mg/fVPmixyb15-620Qhd [facility] Comment on above:Performed By: #### LIPID, T7, CMP, TSH #### [facility] [address] [place] [address] Dr. Jorge GlaserPotassium [Moles/Vol]3.7 mmol/LNormal3.5-5.1[facility] Comment on above:Performed By: #### LIPID, T7, CMP, TSH #### [facility] [address] [address] [address] Jorge GlaserProtein [Mass/Vol]7.5 g/dLNormal6.4-8.2The [facility] Comment on above:Performed By: #### LIPID, T7, CMP, TSH #### [facility] [address] [address] [address] Jorge GlaserSodium [Moles/Vol]134 mmol/LCritically fdk428-604Cdx [facility] HospitalComment on above:Performed By: #### LIPID, T7, CMP, TSH #### [facility] [address] [place] [address] Dr. Jorge GlaserUrea nitrogen [Mass/Vol]17.0 mg/dLNormal7.0-18.0The [facility] HospitalComment on above:Performed By: #### LIPID, T7, CMP, TSH #### [facility] [address] [place] [address] Dr. Jorge Robles nitrogen/Creatinine [Mass ratio]16.8 mg/mgNoWVUMedicine Harrison Community HospitalComment on above:Performed By: #### LIPID, T7, CMP, TSH #### [facility] [address] [place] [address] Dr. Jorge HarveyHoantonio 52-35-0836ZIX6.022 uIU/mLCritically high0.358-3.740[facility] CenterComment on above:Performed By: #### LIPID, T7, CMP, TSH #### [facility] [address] [place] [address] Dr. Jorge GlaserXR CHEST 2 Von 91-43-4572JS CHEST 2 VEXAM: XR CHEST 2 V HISTORY: Palpitations COMPARISON: 06/09/20 TECHNIQUE: PA and lateral views of the chest. FINDINGS: The cardiomediastinal silhouette is normal. Stable left-sided cardiac pacemaker. No focal consolidation is identified. There is no pneumothorax. No pleural effusion is noted. The osseous structures are intact. IMPRESSION: No acute cardiopulmonary process. Electronically authenticated by: ABIMBOLA AMADOR Date: 2022-12-01 13:06[facility] CenterFREE T3on 65-30-1379VUVI T32.51 pg/mlLNormal2.18-3.98The [facility] HospitalComment on above:Performed By: #### LIPID, T7, CMP, TSH #### [facility] [address] [place] [address] Dr. Jorge Graves4on 69-24-5686U3 [Mass/Vol]6.00 ug/dLNormal4.80-13.90The [facility] HospitalComment on above:Performed By: #### LIPID, T7, CMP, TSH #### [facility] [address] [place] [address] Dr. Jorge Christensen 16-77-0637GVV1.223 uIU/mLCritically high0.358-3.740The [facility] Hospitalment on above:Performed By: #### LIPID, T7, CMP, TSH #### [facility] [address] [place] [address] Dr. Jorge Cabrales 23-58-9153Vrwibhixkuw peptide B (Bld) [Mass/Vol]479.0 pg/mL Normal<=1,800.0The [facility] HospitalComment on above:Performed By: #### LIPID, T7, CMP, TSH #### [facility] [address] [place] [address] Dr. Jorge Jacinto AUTO DIFFon 27-80-0428VDBG #0.1 103/ulNormal0.0-0.1The [facility] HospitalComment on above:Performed By: #### CBC #### [facility] [address] [place] [address] Dr. Jorge Yisophils/100 WBC (Bld)0.8 %Normal0.2-2.0The [facility] Comment on above:Performed By: #### CBC #### [facility] [address] [place] [address] Dr. Jorge Mary #0.1 103/ulNormal0.0-0.7The [facility] HospitalComment on above: Performed By: #### CBC #### [facility] [address] [address] [address] Jorge Wuosinophils/100 WBC (Bld)0.8 %Critically low0.9-7.0The [facility] Hospitalment on above:Performed By: #### CBC #### [facility] [address] [address] [address] Jorge Wurythrocyte distribution width (RBC) [Ratio]13.9 %Loylin55.0-15.0 The [facility] HospitalComment on above:Performed By: #### CBC #### [facility] [address] [place] [address] Dr. Jorge GlaserHematocrit (Bld) [Volume fraction]37.7 %Yjbzbd27.0-48.0The [facility] Hospitalment on above:Performed By: #### CBC #### [facility] [address] [place] [address] Dr. Jorge GlaserHemoglobin (Bld) [Mass/Vol]12.2 g/eKNopgzu49.0-16.0The [facility] Hospitalment on above:Performed By: #### CBC #### [facility] [address] [place] [address] Dr. Jorge Augustine #0.14 10e3/ulCritically high0.00-0.03The [facility] Comment on above:Performed By: #### CBC #### [facility] [facility] [address] [place] [address] Dr. Jorge Augustine %1.1 %Critically high0.0-0.5The [facility] Hospitalment on above:Performed By: #### CBC #### [facility] [address] [place] [address] Dr. Jorge JonesH #1.6 103/ulNormal1.2-3.8The [facility] Hospitalment on above:Performed By: #### CBC #### [facility] [address] [place] [address] Dr. Jorge Peralesmphocytes/100 WBC (Bld)11.8 %Critically low20.5-60.0The [facility] HospitalComment on above:Performed By: #### CBC #### [facility] [address] [address] [address] Jorge Thomas DIFF REQNONormalThe [facility] HospitalComment on above: Performed By: #### CBC #### [facility] [address] [place] [address] Dr. Jorge Cox (RBC) [Entitic mass]28.2 zhAzcczm07.7-34.0The [facility] HospitalComment on above:Performed By: #### CBC #### [facility] [address] [place] [address] Dr. Jorge Cox (RBC) [Mass/Vol]32.4 g/xWKhhwfy40.9-35.2The [facility] HospitalComment on above:Performed By: #### CBC #### [facility] [address] [place] [address] Dr. Jorge Cox (RBC) [Entitic vol]87.3 jBXstyjk43.0-99.0The [facility] HospitalComment on above:Performed By: #### CBC #### [facility] [address] [place] [address] Dr. Jorge Noland #0.8 103/ulNormal0.3-0.8The [facility] HospitalComment on above:Performed By: #### CBC #### [facility] [address] [place] [address] Dr. Jorge Posadaocytes/100 WBC (Bld)5.9 %Normal1.7-12.0[facility] Comment on above:Performed By: #### CBC #### [facility] [address] [place] [address] Dr. Jorge Vincent #10.4 103/ulCritically high1.4-6.5The [facility] Comment on above:Performed By: #### CBC #### [facility] [address] [place] [address] Dr. Jorge Francoutrophils/100 WBC (Bld)79.6 %Critically high43.0-75.0The [facility] HospitalComment on above:Performed By: #### CBC #### [facility] [address] [address] [address] Jorge GlaserPlatelet mean volume (Bld) [Entitic vol]9.0 fLCritically low 9.5-13.5The [facility] HospitalComment on above:Performed By: #### CBC #### [facility] [address] [address] [address] Jorge GlaserPLT216 103/ayXixjpk247-196Ede [facility] HospitalComment on above: Performed By: #### CBC #### [facility] [address] [address] [address] Jorge GlaserRBC4.32 106/ulNormal4.20-5.40The [facility] HospitalComment on above:Performed By: #### CBC #### [facility] [address] [address] [address] Jorge GlaserWBC13.1 103/ulCritically high4.0-11.0The [facility] HospitalComment on above:Performed By: #### CBC #### [facility] [address] [place] [address] Dr. Jorge Turner M/2D COMPLETEon [id number] M/2D COMPLETE Patient: KAREN GIFFORD Exam Date: 11/04/2022 : 1935 Gender:F Ordering : CHILANGO YOUSIF [facility] Admission #: [id number] Family : Order #: [id number] CLICK HERE TO VIEW EXAM ECHOCARDIOGRAM REPORT [...] Area (VTI): 2.20 cm2, 2.20 cm2 Deceleration Bowman: 2.65 m/s2 Pressure Half-Time: 481.67 ms Peak [...] by: Ej Lopez M.D. on 11/04/2022 at 22:09[facility] CenterPROF CHEM 8 (BAS METB)on 89-37-7241Giguy gap [Moles/Vol]10.6 mmol/L NormalThe [facility] HospitalComment on above:Performed By: #### LIPID, T7, CMP, TSH #### [facility] [address] [place] [address] Dr. Jorge GlaserCalcium [Mass/Vol]9.5 mg/dLNormal8.5-10.1The [facility] Comment on above:Performed By: #### LIPID, T7, CMP, TSH #### [facility] [address] [address] [address] Jorge GlaserChloride [Moles/Vol]97 mmol/LCritically hrp40-857Cpj [facility] HospitalComment on above:Performed By: #### LIPID, T7, CMP, TSH #### [facility] [address] [place] [address] Dr. Jorge GlaserCO2 [Moles/Vol]32.3 mmol/LCritically high21.0-32.0The [facility] HospitalComment on above:Performed By: #### LIPID, T7, CMP, TSH #### [facility] [address] [address] [address] Jorge GlaserCreatinine [Mass/Vol]0.79 mg/dLNormal0.55-1.02The [facility] HospitalComment on above:Performed By: #### LIPID, T7, CMP, TSH #### [facility] [address] [address] [address] Jorge WuGFR-AF MALAGASY>60Normal>=60The [facility] HospitalComment on above:Performed By: #### LIPID, T7, CMP, TSH #### [facility] [address] [address] [address] Jorge WuGFR-NON AF MALAGASY>60Normal>=60The [facility] HospitalComment on above:Performed By: #### LIPID, T7, CMP, TSH #### [facility] [address] [address] [address] Jorge GlaserGlucose [Mass/Vol]161 mg/dLCritically mzzw40-965Dyv [facility] Hospitalment on above:Performed By: #### LIPID, T7, CMP, TSH #### [facility] [address] [address] [address] Jorge GlaserPotassium [Moles/Vol]3.9 mmol/LNormal3.5-5.1The [facility] Comment on above:Performed By: #### LIPID, T7, CMP, TSH #### [facility] [address] [address] [address] Jorge GlaserSodium [Moles/Vol]136 mmol/RMfmmdy631-139Qxh [facility] Comment on above:Performed By: #### LIPID, T7, CMP, TSH #### [facility] [address] [address] [address] Jorge GlaserUrea nitrogen [Mass/Vol]20.0 mg/dLCritically high7.0-18.0The [facility] HospitalComment on above:Performed By: #### LIPID, T7, CMP, TSH #### [facility] [address] [address] [address] Jorge GlaserUrea nitrogen/Creatinine [Mass ratio]25.3 mg/mgNormalThe [facility] HospitalComasc[facility] on above:Performed By: #### LIPID, T7, CMP, TSH #### [facility] [address] [place] [address] Dr. Jorge Delgado T3on 08-57-4195ODRO T32.15 pg/mlLCritically low2.18-3.98The [facility] HospitalComasc[facility] on above:Performed By: #### LIPID, T7, CMP, TSH #### [facility] [address] [place] [address] Dr. Jorge GlaserPOTASSIUMon 06-36-3471Zqqxiwrtn [Moles/Vol]3.5 mmol/LNormal 3.5-5.1The [facility] HospitalComasc[facility] on above:Performed By: #### LIPID, T7, CMP, TSH #### [facility] [address] [place] [address] Dr. Jorge GlaserT4on 13-62-1778U9 [Mass/Vol]6.50 ug/dLNormal4.80-13.90The [facility] on above:Performed By: #### T4, TSH, FT3, K #### [facility] [address] [place] [address] Dr. Jorge Christensen 38-80-8259ZCZ1.603 uIU/mLCritically high0.358-3.740The [facility] on above:Performed By: #### LIPID, T7, CMP, TSH #### [facility] [address] [place] [address] Dr. Jorge GlaserOCC BLD IMMUNO SCREENon 91-48-7802RFKMFI BLOODNegativeNormal NEGATIVEThe [facility] on above:Performed By: #### OBSCRN #### [facility] [address] [place] [address] Dr. Jorge TimC AUTO DIFFon 93-97-4097VSQV #0.1 103/ulNormal0.0-0.1The [facility] HospitalComment on above:Performed By: #### LIPID, T7, CMP, TSH #### [facility] [address] [place] [address] Dr. Jorge GlaserBasophils/100 WBC (Bld)1.0 %Normal0.2-2.0The [facility] Comment on above:Performed By: #### LIPID, T7, CMP, TSH #### [facility] [address] [place] [address] Dr. Jorge Mary #0.3 103/ulNormal0.0-0.7The [facility] HospitalComment on above: Performed By: #### LIPID, T7, CMP, TSH #### [facility] [address] [place] [address] Dr. Jorge Wuosinophils/100 WBC (Bld)3.8 %Normal0.9-7.0The [facility] Comment on above:Performed By: #### LIPID, T7, CMP, TSH #### [facility] [address] [place] [address] Dr. Jorge Wurythrocyte distribution width (RBC) [Ratio]13.4 %Haupbz52.0-15.0 The [facility] HospitalComment on above:Performed By: #### LIPID, T7, CMP, TSH #### [facility] [address] [place] [address] Dr. Jorge GlaserHematocrit (Bld) [Volume fraction]39.0 %Vaqhnt49.0-48.0The [facility] HospitalComment on above:Performed By: #### LIPID, T7, CMP, TSH #### [facility] [address] [place] [address] Dr. Jorge GlaserHemoglobin (Bld) [Mass/Vol]12.8 g/pHCibqsd71.0-16.0The [facility] HospitalComment on above:Performed By: #### LIPID, T7, CMP, TSH #### [facility] [address] [place] [address] Dr. Jorge Augustine #0.10 10e3/ulCritically high0.00-0.03The [facility] Comment on above:Performed By: #### LIPID, T7, CMP, TSH #### [facility] [address] [address] [address] Jorge Augustine %1.1 %Critically high0.0-0.5The [facility] HospitalComment on above:Performed By: #### LIPID, T7, CMP, TSH #### [facility] [address] [address] [address] Jorge Ravi #2.3 103/ulNormal1.2-3.8The [facility] HospitalComment on above:Performed By: #### LIPID, T7, CMP, TSH #### [facility] [address] [place] [address] Dr. Jorge Joneshocytes/100 WBC (Bld)26.9 %Ordulm34.5-60.0The [facility] HospitalComment on above:Performed By: #### LIPID, T7, CMP, TSH #### [facility] [address] [place] [address] Dr. Jorge PinedoUAL DIFF REQNONormalThe [facility] HospitalComment on above: Performed By: #### LIPID, T7, CMP, TSH #### [facility] [address] [place] [address] Dr. Jorge Cox (RBC) [Entitic mass]29.4 rgLzcvuh67.7-34.0The [facility] HospitalComment on above:Performed By: #### LIPID, T7, CMP, TSH #### [facility] [address] [place] [address] Dr. Jorge Cox (RBC) [Mass/Vol]32.8 g/gWTojman32.9-35.2The [facility] HospitalComment on above:Performed By: #### LIPID, T7, CMP, TSH #### [facility] [address] [place] [address] Dr. Jorge Cox (RBC) [Entitic vol]89.7 xZJetyil91.0-99.0The [facility]ment on above:Performed By: #### LIPID, T7, CMP, TSH #### [facility] [address] [address] [address] Jorge Noland #0.8 103/ulNormal0.3-0.8The [facility] HospitalComment on above:Performed By: #### LIPID, T7, CMP, TSH #### [facility] [address] [place] [address] Dr. Jorge Posadaocytes/100 WBC (Bld)9.1 %Normal1.7-12.0The [facility] Comment on above:Performed By: #### LIPID, T7, CMP, TSH #### [facility] [address] [place] [address] Dr. Jorge Vincent #5.1 103/ulNormal1.4-6.5The [facility] HospitalComment on above:Performed By: #### LIPID, T7, CMP, TSH #### [facility] [address] [place] [address] Dr. Jorge Francoutrophils/100 WBC (Bld)58.1 %Ueznhb53.0-75.0The [facility] HospitalComment on above:Performed By: #### LIPID, T7, CMP, TSH #### [facility] [address] [place] [address] Dr. Jorge Kinney mean volume (Bld) [Entitic vol]8.8 fLCritically low 9.5-13.5The [facility]ment on above:Performed By: #### LIPID, T7, CMP, TSH #### [facility] [address] [place] [address] Dr. Jorge GlaserPLT158 103/hhIigkuy591-187Vmf [facility] HospitalComment on above: Performed By: #### LIPID, T7, CMP, TSH #### [facility] [address] [place] [address] Dr. Jorge GlaserRBC4.35 106/ulNormal4.20-5.40The [facility] HospitalComment on above:Performed By: #### LIPID, T7, CMP, TSH #### [facility] [address] [address] [address] Jorge GlaserWBC8.7 103/ulNormal4.0-11.0The [facility] HospitalComment on above: Performed By: #### LIPID, T7, CMP, TSH #### [facility] [address] [address] [address] Jorge Delgado THYROXINE INDEX T7on 23-39-8662WDK1.78Bjxjyp8.30-4.50The [facility] HospitalComment on above:Performed By: #### LIPID, T7, CMP, TSH #### [facility] [address] [address] [address] Jorge GlaserT3U33.0 %Yrpqky59.0-39.0The [facility] HospitalComment on above: Performed By: #### LIPID, T7, CMP, TSH #### [facility] [address] [address] [address] Jorge GlaserT4 [Mass/Vol]6.50 ug/dLNormal4.80-13.90The [facility] Comment on above:Performed By: #### LIPID, T7, CMP, TSH #### [facility] [address] [address] [address] Jorge GlaserGLYCOHEMOGLOBIN A1Con 99-04-8898SMD RECOMMENDATIONSEE BELOWNormal The [facility] HospitalComment on above:Result Comment: ADA RECOMMENDED LIMIT 4.0 - 6.0 ADA THERAPEUTIC TARGET < 7.0 ACTION SUGGESTED > 7.0Performed By: #### A1C #### [facility] [address] [place] [address] Dr. Jorge GlaserGlucose [Mass/Vol]137 mg/dLNormalThe [facility] HospitalComment on above:Performed By: #### A1C #### [facility] [address] [place] [address] Dr. Jorge GlaserHbA1c (Bld) [Mass fraction]6.4 %Critically high4.5-6.2The [facility] HospitalComment on above:Performed By: #### A1C #### [facility] [address] [address] [address] Jorge Au [id number] [Mass/Vol]58.0 ug/oTXdxqnp47.0-170.0The [facility] Hospitalment on above:Performed By: #### IRON #### [facility] [address] [address] [address] Jorge Shepherd PROFILEon 54-46-1350KLUP-HDL RATIO NORMSEE BELOWPremier Health Upper Valley Medical CenterComment on above:Result Comment: 3.3 - 4.4 LOW RISK 4.4 - 7.1 AVERAGE RISK 7.1 - 11.0 MODERATE RISK >11.0 HIGH RISKPerformed By: #### LIPID, T7, CMP, TSH #### [facility] [address] [place] [address] Dr. Jorge Begumesterol [Mass/Vol]128 mg/dLNormal<=200The [facility] Comment on above:Performed By: #### LIPID, T7, CMP, TSH #### [facility] [address] [address] [address] Jorge Begumesterol in HDL [Mass/Vol]61 mg/dLCritically ysue41-25Avk [facility] HospitalCom[facility] on above:Performed By: #### LIPID, T7, CMP, TSH #### [facility] [address] [address] [address] Jorge Begumesterol in LDL [Mass/Vol]49.0 mg/dLPremier Health Upper Valley Medical CenterComment on above:Performed By: #### LIPID, T7, CMP, TSH #### [facility] [address] [address] [address] Jorge Todd.total/Cholesterol in HDL [Mass ratio]2.1 {ratio} NormalThe [facility] on above:Performed By: #### LIPID, T7, CMP, TSH #### [facility] [address] [address] [address] Jorge Villalta NORMAL> or = 60 mg/dl - LOW CARDIOVASCULAR RISK <40 mg/dl - HIGH CARDIOVASCULAR RISKNoWVUMedicine Harrison Community HospitalComment on above:Performed By: #### LIPID, T7, CMP, TSH #### [facility] [address] [address] [address] Jorge GlaserLDL CALC NORMALSEE BELOWPremier Health Upper Valley Medical CenterComment on above:Result Comment: <100 mg/dl OPTIMAL 100 - 129 mg/dl NEAR OR ABOVE OPTIMAL 130 - 159 mg/dl BORDERLINE HIGH 160 - 189 mg/dl HIGH >190 mg/dl VERY HIGH Performed By: #### LIPID, T7, CMP, TSH #### [facility] [address] [address] [address] Jorge GlaserTriglyceride [Mass/Vol]90 mg/dLNormal<=150The [facility] Comment on above:Performed By: #### LIPID, T7, CMP, TSH #### [facility] [address] [address] [address] Jorge GlaserVLDL CALC18.0 mg/dLNoWVUMedicine Harrison Community HospitalComment on above: Performed By: #### LIPID, T7, CMP, TSH #### [facility] [address] [address] [address] Jorge GlaserPROKimmy 14(COMP METB)on 00-20-4368Lcphnyy [Mass/Vol]3.5 g/dLNormal 3.4-5.0The [facility] on above:Performed By: #### LIPID, T7, CMP, TSH #### [facility] [address] [address] [address] Jorge GlaserAlbumin/Globulin [Mass ratio]1.1 {ratio}NormalThe [facility] HospitalComascension [facility] on above:Performed By: #### LIPID, T7, CMP, TSH #### [facility] [address] [address] [address] Jorge Benitez [Catalytic activity/Vol]42 U/LCritically ihi67-092Ebp [facility] on above:Performed By: #### LIPID, T7, CMP, TSH #### [facility] [address] [address] [address] Jorge Correia [Catalytic activity/Vol]23 U/TLynjqz20-96Qne [facility] HospitalComment on above:Performed By: #### LIPID, T7, CMP, TSH #### [facility] [address] [address] [address] Jorge GlaserAnion gap [Moles/Vol]10.0 mmol/LNormalFisher-[facility] Center Comment on above:Performed By: #### LIPID, T7, CMP, TSH #### [facility] [address] [address] [address] Jorge GlaserAST [Catalytic activity/Vol]21 U/CUlbiyo36-81CxwFisher-Titus Medical CenterComment on above:Performed By: #### LIPID, T7, CMP, TSH #### [facility] [address] [place] [address] Dr. Jorge GlaserBilirubin [Mass/Vol]0.5 mg/dLNormal0.2-1.0[facility] Comment on above:Performed By: #### LIPID, T7, CMP, TSH #### [facility] [address] [place] [address] Dr. Jorge GlaserCalcium [Mass/Vol]9.2 mg/dLNormal8.5-10.1[facility] Comment on above:Performed By: #### LIPID, T7, CMP, TSH #### [facility] [address] [place] [address] Dr. Jorge GlaserChloride [Moles/Vol]99 mmol/CFurqgb99-716OhjFisher-Titus Medical Center Comment on above:Performed By: #### LIPID, T7, CMP, TSH #### [facility] [address] [place] [address] Dr. Jorge GlaserCO2 [Moles/Vol]32.2 mmol/LCritically high21.0-32.0The [facility] HospitalComment on above:Performed By: #### LIPID, T7, CMP, TSH #### [facility] [address] [place] [address] Dr. Jorge GlaserCreatinine [Mass/Vol]0.78 mg/dLNormal0.55-1.02The [facility] HospitalComment on above:Performed By: #### LIPID, T7, CMP, TSH #### [facility] [address] [address] [address] Jorge WuGFR-AF MALAGASY>60Normal>=60The [facility]ment on above:Performed By: #### LIPID, T7, CMP, TSH #### [facility] [address] [address] [address] Jorge WuGFR-NON AF MALAGASY>60Normal>=60The [facility] HospitalComment on above:Performed By: #### LIPID, T7, CMP, TSH #### [facility] [address] [address] [address] Jorge GlaserGlobulin (S) [Mass/Vol]3.2 g/dLNormalThe [facility] HospitalComment on above:Performed By: #### LIPID, T7, CMP, TSH #### [facility] [address] [place] [address] Dr. Jorge GlaserGlucose [Mass/Vol]100 mg/yTQcxzyw71-581OnfFisher-Titus Medical Center Comment on above:Performed By: #### LIPID, T7, CMP, TSH #### [facility] [address] [address] [address] Jorge GlaserPotassium [Moles/Vol]3.2 mmol/LCritically low3.5-5.1The [facility] Hospitalment on above:Performed By: #### LIPID, T7, CMP, TSH #### [facility] [address] [address] [address] Jorge GlaserProtein [Mass/Vol]6.7 g/dLNormal6.4-8.2The [facility] Comment on above:Performed By: #### LIPID, T7, CMP, TSH #### [facility] [address] [address] [address] Jorge GlaserSodium [Moles/Vol]138 mmol/MCketjf511-599EdtFisher-Titus Medical Center Comment on above:Performed By: #### LIPID, T7, CMP, TSH #### [facility] [address] [address] [address] Jorge GlaserUrea nitrogen [Mass/Vol]17.0 mg/dLNormal7.0-18.0The [facility] HospitalComment on above:Performed By: #### LIPID, T7, CMP, TSH #### [facility] [address] [address] [address] Jorge Robles nitrogen/Creatinine [Mass ratio]21.8 mg/mgNoWVUMedicine Harrison Community HospitalComment on above:Performed By: #### LIPID, T7, CMP, TSH #### [facility] [address] [address] [address] Jorge Christensen 40-05-4778JUK9.483 uIU/mLCritically high0.358-3.740The [facility] HospitalComment on above:Performed By: #### LIPID, T7, CMP, TSH #### [facility] [address] [address] [address] Jorge GlaserXR DEXA BONE DENSITYon 26-69-0263OC DEXA BONE DENSITYEXAMINATION: XR DEXA BONE DENSITY, 08/27/2022 2:04 PM [...] Electronically authenticated by: KD DALY Date: 2022-08-27 16:23[facility] AUTO DIFFon 31-92-3464PTOO #0.1 103/ulNormal0.0-0.1The [facility] Hospitalment on above:Performed By: #### LIPID, T7, CMP, TSH #### [facility] [address] [address] [address] Jorge GlaserBasophils/100 WBC (Bld)0.5 %Normal0.2-2.0The [facility] Comment on above:Performed By: #### LIPID, T7, CMP, TSH #### [facility] [address] [place] [address] Dr. Jorge Mary #0.2 103/ulNormal0.0-0.7The [facility] HospitalComment on above: Performed By: #### LIPID, T7, CMP, TSH #### [facility] [address] [place] [address] Dr. Jorge Wuosinophils/100 WBC (Bld)2.0 %Normal0.9-7.0The [facility] Comment on above:Performed By: #### LIPID, T7, CMP, TSH #### [facility] [address] [place] [address] Dr. Jorge Wurythrocyte distribution width (RBC) [Ratio]14.1 %Iircot21.0-15.0 The [facility] HospitalComment on above:Performed By: #### LIPID, T7, CMP, TSH #### [facility] [address] [place] [address] Dr. Jorge GlaserHematocrit (Bld) [Volume fraction]42.2 %Ynmazo42.0-48.0The [facility] HospitalComment on above:Performed By: #### LIPID, T7, CMP, TSH #### [facility] [address] [place] [address] Dr. Jorge GlaserHemoglobin (Bld) [Mass/Vol]14.2 g/oCFqahiw34.0-16.0The [facility] HospitalComment on above:Performed By: #### LIPID, T7, CMP, TSH #### [facility] [address] [place] [address] Dr. Jorge Augustine #0.08 10e3/ulCritically high0.00-0.03The [facility] Comment on above:Performed By: #### LIPID, T7, CMP, TSH #### [facility] [address] [place] [address] Dr. Jorge Augustine %0.8 %Critically high0.0-0.5The [facility] HospitalComment on above:Performed By: #### LIPID, T7, CMP, TSH #### [facility] [address] [place] [address] Dr. Jorge Ravi #1.2 103/ulNormal1.2-3.8The [facility] HospitalComment on above:Performed By: #### LIPID, T7, CMP, TSH #### [facility] [address] [place] [address] Dr. Jorge Joneshocytes/100 WBC (Bld)11.9 %Critically low20.5-60.0The [facility] HospitalComment on above:Performed By: #### LIPID, T7, CMP, TSH #### [facility] [address] [place] [address] Dr. Jorge Thomas DIFF REQNONormalThe [facility] HospitalComment on above: Performed By: #### LIPID, T7, CMP, TSH #### [facility] [address] [place] [address] Dr. Jorge Cox (RBC) [Entitic mass]30.8 zcIwvqvi90.7-34.0The [facility] Hospitalment on above:Performed By: #### LIPID, T7, CMP, TSH #### [facility] [address] [place] [address] Dr. Jorge Cox (RBC) [Mass/Vol]33.6 g/kCFmmkic15.9-35.2The [facility] on above:Performed By: #### LIPID, T7, CMP, TSH #### [facility] [address] [place] [address] Dr. Jorge Cox (RBC) [Entitic vol]91.5 oCQpshhb18.0-99.0The [facility] on above:Performed By: #### LIPID, T7, CMP, TSH #### [facility] [address] [place] [address] Dr. Jorge Noland #0.5 103/ulNormal0.3-0.8The [facility] HospitalComment on above:Performed By: #### LIPID, T7, CMP, TSH #### [facility] [address] [address] Dr. Jorge Posadaocytes/100 WBC (Bld)5.0 %Normal1.7-12.0[facility] Comment on above:Performed By: #### LIPID, T7, CMP, TSH #### [facility] [address] [place] [address] Dr. Jorge Vincent #8.3 103/ulCritically high1.4-6.5[facility] Comment on above:Performed By: #### LIPID, T7, CMP, TSH #### [facility] [address] [place] [address] Dr. Jorge Francoutrophils/100 WBC (Bld)79.8 %Critically high43.0-75.0[facility] HospitalComment on above:Performed By: #### LIPID, T7, CMP, TSH #### [facility] [address] [place] [address] Dr. Jorge Sandhulet mean volume (Bld) [Entitic vol]9.0 fLCritically low 9.5-13.5The [facility] HospitalComment on above:Performed By: #### LIPID, T7, CMP, TSH #### [facility] [address] [place] [address] Dr. Jorge GlaserPLT154 103/ylPfrqwt072-476Vtv [facility] HospitalComment on above: Performed By: #### LIPID, T7, CMP, TSH #### [facility] [address] [place] [address] Dr. Jorge GlaserRBC4.61 106/ulNormal4.20-5.40The [facility] HospitalComment on above:Performed By: #### LIPID, T7, CMP, TSH #### [facility] [address] [place] [address] Dr. oJrge GlaserWBC10.4 103/ulNormal4.0-11.0The [facility] HospitalComment on above:Performed By: #### LIPID, T7, CMP, TSH #### [facility] [address] [address] [address] Jorge GlaserPROF CHEM 8 (BAS METB)on 48-39-5541Rpnoq gap [Moles/Vol]9.0 mmol/LNormalThe [facility] HospitalComment on above:Performed By: #### LIPID, T7, CMP, TSH #### [facility] [address] [place] [address] Dr. Jorge GlaserCalcium [Mass/Vol]10.0 mg/dLNormal8.5-10.1[facility] Comment on above:Performed By: #### LIPID, T7, CMP, TSH #### [facility] [address] [place] [address] Dr. Jorge GlaserChloride [Moles/Vol]94 mmol/LCritically jjm29-677Zgr [facility] HospitalComment on above:Performed By: #### LIPID, T7, CMP, TSH #### [facility] [address] [place] [address] Dr. Jorge GlaserCO2 [Moles/Vol]31.4 mmol/SOztdfr46.0-32.0[facility] Comment on above:Performed By: #### LIPID, T7, CMP, TSH #### [facility] [address] [place] [address] Dr. Jorge GlaserCreatinine [Mass/Vol]0.69 mg/dLNormal0.55-1.02The [facility] HospitalComment on above:Performed By: #### LIPID, T7, CMP, TSH #### [facility] [address] [place] [address] Dr. Jorge WuGFR-AF MALAGASY>60Normal>=60The [facility] HospitalComment on above:Performed By: #### LIPID, T7, CMP, TSH #### [facility] [address] [place] [address] Dr. Jorge WuGFR-NON AF MALAGASY>60Normal>=60The [facility] HospitalComment on above:Performed By: #### LIPID, T7, CMP, TSH #### [facility] [address] [place] [address] Dr. Yilan ChangGlucose [Mass/Vol]129 mg/dLCritically dhcy84-005Guq [facility] HospitalComment on above:Performed By: #### LIPID, T7, CMP, TSH #### [facility] [address] [address] [address] Jorge GlaserPotassium [Moles/Vol]3.4 mmol/LCritically low3.5-5.1The [facility] HospitalComment on above:Performed By: #### LIPID, T7, CMP, TSH #### [facility] [address] [address] [address] Jorge GlaserSodium [Moles/Vol]131 mmol/LCritically sbg943-891Jol [facility] HospitalComment on above:Performed By: #### LIPID, T7, CMP, TSH #### [facility] [address] [place] [address] Dr. Jorge GlaserUrea nitrogen [Mass/Vol]17.0 mg/dLNormal7.0-18.0The [facility] HospitalComment on above:Performed By: #### LIPID, T7, CMP, TSH #### [facility] [address] [place] [address] Dr. Jorge Robles nitrogen/Creatinine [Mass ratio]24.6 mg/mgNormalThe [facility] HospitalComment on above:Performed By: #### LIPID, T7, CMP, TSH #### [facility] [address] [place] [address] Dr. Jorge GlaserNM STRESS/REST MULTIon 56-78-5890IV STRESS/REST MULTIPatient: KAREN GIFFORD Exam Date: 03/22/2022 : 1935 Gender:F Ordering : DR VINCENZO AUSTIN . Admission #: [id number] Family : CHILANGO [place] LORI COUNTER HAND Order #: [id number] CLICK HERE TO VIEW EXAM RADIOLOGY REPORT [...] by: Jay Rachel MD on 03/23/2022 at 11:42[facility] Vital Signs Date TimeVital SignValuePerforming SondkjinlBddumobm18-43-3770 09:29-0400Body oqkdjq092.2 cmCorey Minoo DO Work Phone: CueSongsTwo Rivers Psychiatric HospitalMfpcllcewo85-42-1713 09:29-0400Body mass index (BMI) [Ratio]23.93 kg/q9Ebgqj Minoo DO Work Phone: [facility] HospitalYacyhregbu22-11-0897 09:29-0400Body ewateq27.31 kgCorey Minoo DO Work Phone: CueSongsTwo Rivers Psychiatric HospitalBvnftmwrfu50-64-5883 09:29-0400Diastolic blood kzwiiqmk98 mm[Hg]Lan Minoo DO Work Phone: [phone] Rivers Psychiatric HospitalPxhbauskcj65-23-1031 09:29-0400Systolic blood rucegjhs954 mm[Hg]Lan Minoo DO Work Phone: [facility] HospitalSuwualqquf60-93-4763 11:17-0400Blood Pressure LocationMicNorth Alabama Medical Center 504-1831Soznhs-FhuovCincinnati [facility] [place] 04-19-2024 11:17-0400Diastolic blood tagtloya80 mm[Hg]Avtar JAYL [phone]-RxosvCincinnati Shriners Hospital [facility] [place] 04-19-2024 11:17-0400Heart rate79 /minMichael NILL 359-3889Yihfpx-AuantBluffton Hospital Surgery [place] 04-19-2024 11:17-0400Respiratory rate16 /minMichael NILL 108-9762Byvwmn-NfsuoBluffton Hospital Surgery [place] 04-19-2024 11:17-0400Systolic blood ezqpgahk741 mm[Hg]Avtar TUCKER 544-5104Yjhxfi-BrfwcC[facility] 04-18-2024 10:04-0400Diastolic blood lomrypun16 mm[Hg]Wes Diaz MD Work Phone: [facility]09-04-2024 10:04-0400Heart rate 78 /minWes Diaz MD Work Phone: [facility]09-04-2024 10:04-0400 Respiratory rate16 /minWes Diaz MD Work Phone: [facility]09-04-2024 10:04-6800KpM5% (BldA) [Mass fraction]99 %Wes Diaz MD Work Phone: [facility]09-04-2024 10:04-0400Systolic blood raicqtsq196 mm[Hg]Wes Diaz MD Work Phone: [facility]09-04-2024 09:54-0400Body .59 kgWes Diaz MD Work Phone: [facility]08-15-2024 13:57-0400Body mjpfol461.2 cmCody Jameson COUNTER HAND Work Phone: 1([phone]) [phone]oeztp70-62-9126 13:57-0400Body mass index (BMI) [Ratio]21.61 kg/m2Cody Jameson COUNTER HAND Work Phone: [phone]) [phone]vhhok00-01-1401 13:57-0400Body opauzo65.6 kgCody Jameson COUNTER HAND Work Phone: 1(211) [phone]jvddz50-27-2333 13:57-0400Diastolic blood gwazxskt46 mm[Hg]Kiko Jameson COUNTER HAND Work Phone: 1(681) [phone]qtxxr74-05-9937 13:57-0400Heart rate93 /minCody Jameson COUNTER HAND Work Phone: 1([phone]) [phone]wmqrx57-33-4158 13:57-0400Systolic blood pressure 114 mm[Hg]Kiko Jameson COUNTER HAND Work Phone: 1(200) [phone]knela15-56-2642 13:37-0500Body wvzfox555.2 cm Jay Guerra MD Work Phone: 1(766) [phone]fmufu96-48-3571 13:37-0500Diastolic blood mm[Hg]Jay Guerra MD Work Phone: 1(392) [phone]ichpz72-73-2018 13:37-0500Heart rate77 /minDalejandro Guerra MD Work Phone: 1(600) [phone]dfwqs37-21-1173 13:37-0500Systolic blood pressure 90 mm[Hg]Jay Guerra MD Work Phone: [facility] Encounters Encounter DateEncounter TypeCare ProviderFacilityStart: 06-11-2025 End: 76-66-3181Tjwise flowsheetCorey Minoo DO Work Phone: [facility] OBGYNStart: 06-11-2025 End: 03-67-8319Vwjmqq flowsheetCorey Minoo DO Work Phone: [facility] [place] OBGYNStart: 06-11-2025 End: 87-85-4716egsidsffjpAJXIX FAZIONot AvailableStart: 06-11-2025 End: 24-59-2070Cgzmss outpatient visit 15 minutesCorey Minoo DO Work Phone: [facility] [place] OBGYNComment on above:Cyst of right ovary; Pelvic pain; Complex ovarian cystStart: 06-04-2025 End: 45-07-4498xihrmtsfjgBERYSQTHarrison Community Hospitaltart: 05-27-2025 End: 84-07-7354Wcuiej outpatient visit 25 minutesMark Axel Chacon MD Work Phone: [facility] Eye and Ear InstituteComment on above:Primary open-angle glaucoma, bilateral, indeterminate stage (Primary Dx); Dry eye syndrome of bilateral lacrimal glands; Primary open-angle glaucoma, bilateral, moderate stageStart: 05-27-2025 ambulatorySELF SELFFacility:[facility]PITALtart: 05-21-2025 End: 12-48-3558hkjzhybnmzISUNChildren's Hospital for Rehabilitationtart: 55-59-7743qgtoxaelteXOTZMAkron Children's Hospitaltart: 05-17-2025 End: 36-51-8267skkxdzjbwkYmkeiwpSadie Austin MDFacility:[facility] Hospitaltart: 45-99-1150ybttomvlcmRJAHGLicking Memorial Hospitaltart: 01-30-2025 End: 42-89-7184fxzffiszkuARZBHBlanchard Valley [facility] Start: 86-33-2094mvdhidraoxVSOBHarrison Community Hospitaltart: 12-13-2024 End: 23-28-3457wyqpilmknkUTETLIKMiddletown Hospitaltart: 84-95-3863lylyvukibmCVOMHarrison Community Hospitaltart: 12-04-2024 End: 77-92-4862hgiqxnohcmVSSBHarrison Community Hospitaltart: 11-21-2024 End: 86-73-4113Rkdvll outpatient visit 25 minutesMark Axel Chacon MD Work Phone: [facility] Eye and Ear InstituteComment on above:Primary open-angle glaucoma, bilateral, indeterminate stage (Primary Dx); Dry eye syndrome of bilateral lacrimal glandsStart: 09-11-2365qvsybdwqaqGVGLYIZ M HOYFacility:[facility]ITALtart: 06-26-2024 End: 18-69-2911ojagfgbvfsCDGE [facility] Hospitaltart: 06-04-2024 End: 20-82-0186Pejdoy outpatient visit 15 minutesMark Axel Chacon MD Work Phone: [facility] [place] [facility] Eye [facility] Ear InstituteComment on above:Primary open-angle glaucoma, bilateral, indeterminate stage (Primary Dx)Start: 83-66-8447xpjbwvsnwoGYVZJJG M HOYFacility:[facility]ITALtart: 05-09-2024 End: 57-00-4102zwpvvnawsaFdhvgct R NILLFacility:CD:[id number]: 04-20-2024 End: 34-74-8645CvziheApolinar RAZO Work Phone: [facility] Gynecology OncologyStart: 04-19-2024 End: 92-07-1700hfmtvxbfxrRyqprgg R NILLFacility:[facility] Hospitaltart: 04-19-2024 End: 05-87-6667Ixurpna encounter procedureMichael R NILL [phone]-UzhdlCincinnati Shriners Hospital [facility] [place] Start: 04-18-2024 End: 66-39-9274rhcmadlwidFJNG C [facility] HospitalStart: 04-18-2024 End: 80-82-8667Pvvxhe outpatient new 60 minutesAdam Yoshi Diaz MD Work Phone: [facility]ca Phys[facility] Gynecology OncologyComment on above:Cyst of right ovary (Primary Dx); Elevated cancer antigen 125 (CA 125)Start: 04-18-2024 End: 10-73-2153mpapvbjuprFTYZ C WALTERProMedica [facility] Campus HospitalStart: 03-29-2024 End: 32-66-1796svhluxqvgsYJNKSGI [facility] AmbulatoryStart: 03-29-2024 End: 95-13-9081Hrwpkw outpatient visit 40 minutesCoelbert Barba COUNTER HAND Work Phone: [facility] Vascular PhysiciansComment on above:Persistent atrial fibrillation (HCC) (Primary Dx); PAF (paroxysmal atrial fibrillation) (HCC); SSS (sick sinus syndrome) (HCC); Presence of cardiac pacemaker; Pericardial effusion; Pleural effusionStart: 03-29-2024 End: 95-45-7881ayuibbhlnnLYLJJMMAtrium Health Navicent Baldwin AmbulatoryStart: 03-27-2024 End: 84-74-5300Vfqvmf OnlyCoelbert Barba COUNTER HAND Work Phone: [facility] Heart & Vascular PhysiciansComment on above:PAF (paroxysmal atrial fibrillation) (HCC) (Primary Dx)Start: 03-08-2024 End: 23-19-3648Amnodozxy encounterWes Diaz MD Work Phone: [facility] Gynecology OncologyComment on above:Reschedule apptStart: 03-05-2024 End: 73-32-5356Hzluxyxnl encounterJessica Rocha RNProMedica Physicians Gynecology OncologyStart: 02-27-2024 End: 95-03-1044Aqiesyofq Result EncounterCorey Minoo DO Work Phone: [facility] External Department UnsolicitedStart: 02-27-2024 End: 55-76-6289Hrcbmyxbg Result EncounterCorey Minoo DO Work Phone: [facility] External Department UnsolicitedStart: 02-02-2024 Orders OnlyJay Guerra MD Work Phone: [facility] Heart & Vascular PhysiciansComment on above:PAF (paroxysmal atrial fibrillation) (HCC) (Primary Dx); Presence of cardiac pacemakerStart: 12-01-2023 End: 54-34-5578Bftusz outpatient visit 15 minutesAbimbola Chacon MD Work Phone: [facility] [place] [facility] Eye and Ear InstituteComment on above:Primary open-angle glaucoma, bilateral, indeterminate stage (Primary Dx)Start: 11-23-2023 End: 73-94-1422vzyoyulnwxUJWFVPJ HOYRiverside Buddhist HospitalStart: 06-28-2023 End: 51-44-0093btgscigohdJYPVMBU HOYRiverside Buddhist HospitalStart: 06-28-2023 End: 92-30-8290Tigsef outpatient new 60 minutesJay Guerra MD Work Phone: [facility] Heart & Vascular PhysiciansComment on above:PAF (paroxysmal atrial fibrillation) (HCC) (Primary Dx); Presence of cardiac pacemaker; SSS (sick sinus syndrome) (HCC); Hypertension, unspecified type; Heart failure with preserved ejection fraction, unspecified HF chronicity (HCC) Start: 06-28-2023 End: 50-77-5174eitrudalywSYWQB [facility] AmbulatoryStart: 10-00-3279Odkhkn OnlyJay Guerra MD Work Phone: [facility] Vascular PhysiciansComment on above:PAF (paroxysmal atrial fibrillation) (HCC) (Primary Dx)Start: 05-31-2023 End: 84-29-9448Ykmywq outpatient new 45 minutesAbimbola Chacon MD Work Phone: [facility] Eye and Ear InstituteComment on above:Primary open-angle glaucoma, bilateral, indeterminate stage (Primary Dx); PCO (posterior capsular opacification), leftStart: 03-09-2023 End: 16-18-4068acyhoyigtrBXXLEVCSadie Lyon HospitalStart: 12-27-2022 End: 37-76-4349zfeyryvtorEAIIEVG TUCKERcility:M5Ibgrf: 12-01-2022 End: 24-36-1435zmrrmpysozGB VINCENZO HOY .Facility:N3Yzmjz: 11-11-2022 End: 60-28-5366yxkergsneiZH VINCENZO HOY .Facility:Y2Gjfif: 11-04-2022 End: 58-47-1270yprlmedvcaHA VINCENZO HOY .Facility:P2Ptzti: 10-04-2022 End: 52-00-6260hocvhgxotrDH VINCENZO HOY .Facility:H0Letyt: 09-01-2022 End: 40-38-9813vojalkistiOW VINCENZO HOY .Facility:K5Qaaua: 08-27-2022 End: 64-62-0292uxkopguhskMN VINCENZO HOY .Facility:J2Rxdlm: 08-27-2022 End: 95-88-4085bzvvpplitpJC VINCENZO HOY .Facility:K9Monqx: 05-22-2022 End: 17-75-8489kskufvlfdlHS VINCENZO HOY .Facility:H4Xvefd: 03-22-2022 End: 72-63-1238utboyyyptiYM VINCENZO HOY .Facility:H1 Procedures DateProcedureProcedure DetailPerforming ClinicianStart: 80-63-3574Tngionenbxrd ophthalmic imaging optic nerveMark Axel Chacon MD Work Phone: Start: 29-12-2975Pzzesr field xm uni/bi w/interp extended examMark Axel Chacon MD Work Phone: Start: 87-60-9057Eutabxhqnwwv ophthalmic imaging optic nerveMark Axel Chacon MD Work Phone: Start: 55-57-3460Tte routine ecg w/least 12 lds w/i&r Kiko Stevenson Jameson COUNTER HAND Work Phone: Start: 52-26-0401DF PELVISCorey Minoo DO Work Phone: Start: 99-21-0638Sxnwmw field xm uni/bi w/interp extended examMark Axel Chacon MD Work Phone: Start: 75-81-0255SaayccouffivhiozwkunaybboyBoihqfp NILL Start: 98-22-6565Lwh routine ecg w/least 12 lds w/i&r Jay Guerra MD Work Phone: Start: 78-81-6373Pmrbdnutpugn ophthalmic imaging optic nerveMark Axel Chacon MD Work Phone: Start: 86-11-9453Fwnq-cataract laser surgeryMark Axel Chacon MD Work Phone: Start: 04-82-4520NrwkfuazlkjKqbqgye NILL Start: 98-36-9546Yofitpjah hysterectomyAbdominal hysterectomyMichael NILL Start: 20-10-9439Thogonkflwcd cholecystectomy Laparoscopic cholecystectomyMichael NILL AppendectomyMichael NILL Arthroscopy of kneeMichael NILL Comment on above:rightCholecystectomyMichael NILL Dilation and curettage of uterusMichael NILL Insertion of permanent cardiac pacemaker pulse generator and electrodeMichael NILL Tonsillectomy and adenoidectomyMichael NILL Vaginal hysterectomyMichael NILL Plan of Treatment DateCare ActivityDetailAuthorStart: 44-87-8281TBeP,Tdap and Td Vaccines (4 - Td or Tdap)DTaP,Tdap and Td Vaccines (4 - Td or Tdap)[facility] Health SystemStart: 34-44-5427Rjldohn vaccinationOSU Joint Township District Memorial Hospitaltart: 11-25-2025 End: 05-11-7412Iffcncr encounter ryctmtxfe66/13/2026 3:00 PM EDT Office Visit [facility] [place] [address] [facility] [address] [facility] [address] [place] [address] Abimbola Chacon MD [address] [facility] [address] [place] [address] [facility] Eye [facility] Ear InstituteStart: 48-27-7447LWKOL-19 Vaccine ()COVID-19 Vaccine ( season)[facility] HealthcareStart: 06-11-2025 End: 96-08-4561WC 125CA 125 Lab Routine Cyst of right ovary Complex ovarian cyst Expected: 06/11/2025 (Approximate), Expires: 06/11/2026[facility] Work Phone: comment on above:Expected: 06/11/2025 (Approximate), Expires: 06/11/2026Start: 05-27-2025 End: 82-51-8224Hrgdtcj encounter /13/2025 3:00 PM EDT Office Visit [facility] [place] [address] [place] [address] Abimbola Chacon MD [address] [place] [address] [facility] Eye [facility] Ear InstituteStart: 60-61-6420XLACZ-19 VACCINE ( season)COVID-19 VACCINE ( season)[facility] Hospitaltart: 50-84-3928Barnpsnde vaccinationOSU [facility] Township District Memorial Hospitaltart: 03-13-2025 End: 90-98-0647dgewozpqia46/30/2025 1:15 PM EDT Device Check OP [facility] [address] [place] [address] VyauAedzim Heart & Vascular PhysiciansStart: 39-16-1490Qdjttw vaccine hzv live for subcutaneous useZOSTER (SHINGLES) VACCINE (2 of 2)OSFisher-Titus Medical Centertart: 07-02-2024 End: 76-00-1214spvuwmfxzo34/18/2024 3:30 PM EST Device Check OP [facility] [address] [place] [address] MferTbbztc Heart & Vascular PhysiciansStart: 71-45-5197EEMIN III : OFFICE VISITCLASS III : OFFICE VISITOhioHealthStart: 06-04-2024 End: 39-80-0960Nqrffuw encounter zyfxveegf17/21/2024 3:30 PM EDT Office Visit [facility] [place] [address] [facility] [address] [facility] [address] [place] [address] Abimbola Chacon MD [address] [facility] [address] [place] [address] [facility] Eye [facility] Ear InstituteStart: 86-48-4299XJEEP-19 VACCINE ( season)COVID-19 VACCINE ()[facility] Centertart: 86-49-2453BCPKY-19 VACCINE ()COVID-19 VACCINE ()[facility] Medical Centertart: 89-59-6468DNGXA-19 Vaccine ()COVID-19 Vaccine ()[facility] SystemStart: 22-55-9329Lwxvqzduo vaccination [facility] CampusStart: 03-29-2024 End: 08-83-9617Xyffizl encounter qnzuztyha94/15/2024 2:10 PM EDT Office Visit [facility] [address] [place] [address] Kiko Barba, COUNTER HAND [address] [facility] [address] [address] [facility] [address] [place] [address] [facility] Vascular PhysiciansStart: 03-27-2024 End: lead ECGECG 12 lead ECG Routine PAF (paroxysmal atrial fibrillation) (HCC) Expected: 03/27/2024, Expires: 03/27/2025[facility] Work Phone: Comment on above:Expected: 03/27/2024, Expires: 03/27/2025Start: 03-21-2024 End: 16-24-5396Dplsbms encounter /07/2024 11:00 AM EDT Office Visit [facility] [address] [place] [address] Wes Diaz MD [address] [facility] [place] [address] [facility] OncologyStart: 03-14-2024 End: 74-74-8990Yytznvl encounter procedureOhDelaware [facility] Hospital [facility] Start: 02-21-2024 End: 99-19-8453Gxbppna encounter xuttorxfr45/09/2024 7:00 AM EDT Appointment [facility] [address] [place] [address] Simone Campoverde MD [address] [facility] [address] [place] [address] [facility] Vascular PhysiciansStart: 12-27-2023 End: 32-62-7410Bbjiiiw encounter hokybnitc80/14/2024 1:50 PM EDT Office Visit [facility] [address] [place] [address] Jay Guerra MD [address] [facility] [address] [place] [address] [facility] V[facility] PhysiciansStart: 12-01-2023 End: 56-98-6289Oaaxrss encounter yscfonama45/18/2024 10:30 AM EDT Office Visit [facility] [place] [address] [place] [address] Abimbola Chacon MD [address] [place] [address] [facility] Eye [facility] Ear InstituteStart: 10-68-9792EEYTB-19 Vaccine ( season)COVID-19 Vaccine ( season)[facility]Start: 06-28-2023 End: 31-03-3420Dwkuclx encounter itrecrnwt60/14/2023 1:00 PM EST Office Visit [facility] [address] [place] [address] Jay Gurera MD [address] [facility] [address] [place] [address] [facility] V[facility] PhysiciansStart: 33-14-0918SNZBB-19 VACCINE ( season)COVID-19 VACCINE ( season)[facility] Start: 90-71-9851Ldjpxqemp vaccinationSequential Influenza Vaccine (#1) [facility]HealthStart: 80-50-0371Witnzqnof for malignant neoplasm of breastMAMMOGRAM SCREENING DISCUSSIONOSFisher-Titus Medical Centertart: 16-21-6700Idhz risk assessmentFalls Risk AssessmentOhioHealthStart: 13-81-9788Rfro Risk Screening Fall Risk ScreeningProCleveland Clinic Mentor Hospital SystemStart: 07-56-4474Ngsrjrkewxmv vaccinationOSFisher-Titus Medical Centertart: 69-79-6045Pcfhzmsqbekv Vaccine: Age 65+ (1 - PCV)Pneumococcal Vaccine: Age 65+ (1 - PCV)[facility]Start: 2002 Pneumococcal Vaccine: Age 65+ (1 of 1 - PCV)Pneumococcal Vaccine: Age 65+ (1 of 1 - PCV)[facility]HealthStart: 47-87-8186Ogbyhfwtdcjdjl of herpes zoster vaccineZoster Vaccines (1 of 2)[facility]HealthStart: 02-20-7756Qtamlbmpygsgtz of varicella zoster vaccineZoster (Shingles) Vaccine (1 of 2)[facility] HospitaledicPhillips Eye Institute SystemStart: 36-13-3037Egpvqzilfwhp vaccinationPNEUMOCOCCAL VACCINE SERIES (1 of 1 - PCV)[facility] Centertart: 84-80-9450Rivluc vaccine hzv live for subcutaneous useZOSTER (SHINGLES) VACCINE (1 of 2)[facility] CenterStart: 1982 Screening for malignant neoplasm of colonCOLORECTAL CANCER SCREENING DISCUSSION OSFisher-Titus Medical Centertart: 56-66-1423Wepuuanhz for malignant neoplasm of cervixCERVICAL CANCER SCREENING DISCUSSIONOSFisher-Titus Medical Centertart: 63-71-6946GVdI,Tdap and Td Vaccines (1 - Tdap)DTaP,Tdap and Td Vaccines (1 - Tdap)[facility] SystemStart: 05-03-9643Qkmik BMI ScreeningAdult BMI ScreeningMartin Memorial Hospital SystemStart: 11-55-2629Cntzxfqurw screening using PHQ- 9 (Patient Health Questionnaire 9) scorePrioHealthStart: 09-42-1060Cuiigex ScreeningTobacco ScreeningProHolzer Health Systemtart: 88-85-7447LBuB/Tdap/Td Vaccines (1 - Tdap)DTaP/Tdap/Td Vaccines (1 - Tdap)[facility] HealthcareStart: 98-74-3026Hrkrdnlugkqf Vaccine: Age 65+ (1 of 2 - PCV)Pneumococcal Vaccine: Age 65+ (1 of 2 - PCV)[place] VirginiaHealthStart: 49-95-9709Ftuxkpp and physical examination, annual for health maintenanceCarilion [facility] VisitPrioHealthStart: 09-07-1940Medicare Wellness VisitMedist. [facility] Wellness VisitOhioHealthStart: 07-15-8254Nyixiuz aminotransferase measurementCLASS III : ALTOhioHealSaint Joseph's Hospitaltart: 09-64-0738LWYLX III : ASTCLASS III : ASTOhioHealthStart: 03-14-6012GFCBK III : CXRCLASS III : CXR OhioHealthStart: 48-20-2113MUKOE III : EKGCLASS III : EKGOhioHealthStart: 81-08-4430YHPPZ III : PFTCLASS III : PFTOhioHealSaint Joseph's Hospitaltart: 1937Medicare Annual Wellness VisitMedicare Annual Wellness VisitUNC Health Southeasterntart: 73-56-7438Hvxtetjyj [Moles/volume] in Serum or PlasmaPOTASSIUMOSFisher-Titus Medical Centertart: 47-43-5011Knyokjtue for osteoporosisOSFisher-Titus Medical Centertart: 05-63-6331Dwbnlrh stimulating hormone measurementOhioHealth End: lead ECGECG 12 lead ECG Routine PAF (paroxysmal atrial fibrillation) ([facility]) 1 Occurrences starting 06/23/2023 until 06/23/2024[facility] Work Phone: Comment on above:1 Occurrences starting 06/23/2023 until 06/23/2024 End: lead ECGECG 12 lead ECG Routine PAF (paroxysmal atrial fibrillation) ([facility]) Presence of cardiac pacemaker 4 Occurrences starting 02/02/2024 until 02/01/2025[facility] Work Phone: comment on above:4 Occurrences starting 02/02/2024 until lead ECGECG 12 lead ECG Routine PAF (paroxysmal atrial fibrillation) ([facility]) 03/29/2024 1:48 PM EDTOhiSDealth Work Phone: Ophthalmic us dx corneal pachymetry uni/biPACHYMETRY- OU AR Charge Routine Primary open-angle glaucoma, bilateral, indeterminate stage Ordered: 05/31/2023[facility] HospitalComment on above:Ordered: 05/31/2023 Immunizations Immunization DateImmunizationNotesCare DkafqnpzWljonhlm19-16-9438hlhjxugyh virus vaccine, unspecified formulationAbimbola Chacon MD Work Phone: [facility]10-18-2024zoster vaccine, unspecified formulationAbimbola Chacon MD Work Phone: [facility]10-12-2023influenza virus vaccine, unspecified formulationCoelbert [facility] Work Phone: [phone]-PqbqaWexner Medical Center09-15-2022 SARS-CoV-2 (COVID-19) mRNAMUL.ORD!a15077Uituzmu NILL [phone]-PwugvBarnesville Hospitalue04-13-2022 SARS-CoV-2 mRNA (nwcienmsduv-hihz-slbukmc) vaccineMichael NILL [phone]-LwvjwWexner Medical Center10-27-2021 SARS-CoV-2 (COVID-19) mRNA BNT-162b2 vaxMichael NILL [phone]-LooqeWexner Medical CenterComment on above: Result Comment: 2024-04-13: [id number]-GkX-8 (COVID-19) mRNA-1273 vaccineMichael NILL [phone]-SyfcyWexner Medical Center01-21-2021 SARS-CoV-2 (COVID-19) mRNA-1273 vaccineMichael NILL [phone]-EdmhiWexner Medical Center Payers DatePayer CategoryPayerPolicy [id number] Care (unspecified)MEDICARE SUPPLEMENT [id number] PAYOR MEDICARE SUPPLEMENT [id number] 2023-Present [address] [place] [id number]5-2600Hnoyhnf Health Insurance [id number] 2002Medicare [id number] [id number] 1960 Private Health [id number] 2.16.840.1.609401.3.57[id number] 2.16.840.1.843880.3.57[id number] 2.16.840.1.839097.3.57[id number] 2.16.840.1.391513.3.57[id number] 2.16.840.1.875355.3.57[id number] 2.16840.1.850476.3.57[id number] 2.16840.1.718286.3.57[id number] 2.16840.1.973742.3.579.2.41734-50-0350Bwfifad5131529 2.16840.1.539608.3.57[id number] 2.16840.1.695144.3.57[id number] 2.16840.1.558408.3.57[id number] 2.16840.1.648645.3.57[id number] 2.16.840.1.540110.3.579.[id number] 2.16840.1.095545.3.579.2.22758-44-2458Xikekon680584115 2.16.840.1.426960.3.579.2.56732-81-8904Lnsdtgj881298122 2.16.840.1.072862.3.579.2.28336-77-7619Cqpfrgb76639740 2.16.840.1.657396.3.579.2.121337-87-2796Ftaovdp73603194 2.16.840.1.698060.3.579.2.173937-94-2021Cnndukc27298705 2.16.840.1.270116.3.579.2.17752-84-2524Hlspsbp94216127 2.16.840.1.236678.3.579.[id number] 2.16840.1.027701.3.579.2.[id number] 2.16.840.1.844656.3.579.2.7[id number] 2.16.840.1.437377.3.579.[id number] 2.16840.1.780141.3.579.2.[id number] 2.840.1.32[id number] Social History DateTypeDetailFacilityStart: 05-31-2023 End: 44-70-0892Epxxexv smoking status NHISNever smoked tobaccoOSU Joint Township District Memorial Hospitaltart: 05-31-2023 End: 60-03-5927Bjlrslb use and exposureSmokeless tobacco non-userOSU Joint Township District Memorial Hospitaltart: 05-31-2023 End: 36-35-9494Kwsmqda intakeEx-drinker (finding)[facility] CenterStart: 05-31-2023 End: 98-92-6871Pyqronk of Social functionOSU Joint Township District Memorial Hospitaltart: 05-31-2023 End: 24-01-0044Yzvehev use panelSelect Medical OhioHealth Rehabilitation Hospital - Dublintart: 1935 Sex Assigned At BirthNot on fileOSUniversity Hospitals Ahuja Medical CenterTobacco smoking status NHISTobacco smoking consumption unknownOhioHealthStart: 06-28-2023 End: 32-61-1202Veieaae intakeLifetime non-drinker (finding)OhioHealthStart: 21-74-1035Ykxciro smoking statusNeWilson Street Hospital [facility] Hospitaltart: 47-53-9857RudSgahcl (finding)[facility] Medical Equipment Procedure CodeEquipment CodeEquipment Original TextEquipment IdentifierDates Acclarent [id number] [address] Chrissy [id number]_impStart: 91-83-3713Idhnpniem [address] [id number]_impStart: 87-71-2528Fqdqmihzx [address] [id number]_impStart: 05-12-2022 Functional Status HhvsFoefbehbvcFarwarOyrzkcpa34-47-6231Qrktwftnuc StatusN/AFhuiLongmont [facility] Clinical Notes 03-22-2022 to 06-11-2025 Note Date & MubdNnazGhejmnpa89-34-3541 History of Present illness Narrative* Marii Medina LPN - 06/11/2025 9:20 AM EDT Reason for Appointment: Patient ID: Karen Gifford is a 89 y.o. female who presents [...] nursing note reviewed. Exam conducted with a bag machine tender present. Vitals: Estimated body mass index is 23.93 kg/m as calculated from the following: Height as [...] of: Lan Hennessy DO documented in this encounterBarton County Memorial HospitalUzlyrxdvpo01-33-7120 NoteCardiovascular Medicine [facility] SUBJECTIVE Chief Complaint Patient presents with Atrial Fibrillation Had EKG and labs a few weeks ago. Denies bleeding on Xarelto. Sinus pause Congestive Heart Failure Had echo in February 2025. Pulmonary Hypertension Hyperlipidemia Hypertension She said Dr. Austin started her on hydralazine recently because her BP's were running high. Pacemaker Check Device was interrogated in the office 2 weeks ago. Karen Gifford is a 89 y.o. female here for follow-up. Atrial Fibrillation Symptoms include palpitations. Symptoms are negative for chest pain and syncope. Past medical history includes atrial fibrillation, CHF and hyperlipidemia. Congestive Heart Failure Associated symptoms include palpitations. Pertinent negatives include no chest pain or near-syncope. Hyperlipidemia Pertinent negatives include no chest pain. Hypertension Associated symptoms include palpitations. Pertinent negatives include no chest pain, malaise/fatigue, orthopnea or PND. PMHx: persistent a.fib, sinus node dysfunction s/p [...] got back a few weeks ago from [place], they went to [place] for a couple of months. 06/04/2025 She notes a few days ago it felt like her heart was pounding for a few minutes then resolved on its own. She doesn't recall any triggering factors. Since last seen, she has been started on hydalazine for HTN management. She notes her BP has been better since then. Denies c/o CP, dyspnea, orthopnea, PND, LE edema, dizziness/LH, syncope. She will be snow birding down to [place], [place] in Aug, 2025 Patient Active Problem List Diagnosis Paroxysmal atrial [...] Epidermal inclusion cyst Fibrocystic breast History of ND (myocardial infarction) Hypothyroidism Iron deficiency anemia Osteopenia Positive fecal occult blood test Sebaceous cyst Syncope TIA on medication Aortic insufficiency Cardiomegaly Adult general medical examination Age-related cataract of right eye Ankle edema Chronic obstructive pulmonary disease (CMS/HCC) Combined forms of age-related cataract of left eye Eczema History of COVID-19 Intra-abdominal and pelvic swelling, mass and lump, unspecified site Joint pain Myocardial infarct (CMS/HCC) Other secondary pulmonary hypertension (CMS/HCC) Overweight Parietoalveolar pneumopathy (CMS/HCC) Pure hypercholesterolemia Solitary pulmonary nodule Sudden visual loss Ventricular hypertrophy Past Medical History: Diagnosis Date A-fib (CMS/HCC) [...] Hematologic/Lymphatic: Negative for bleeding problem. Does not bruise (more content not included)...[facility]10-13-2025 History of Present illness Narrative* Christelle Castro - 05/27/2025 3:00 PM EDT REASON FOR VISIT Karen Gifford presents to clinic today for a Established Patient visit. Chief Complaint Follow-up HISTORY OF PRESENT ILLNESS HPI 89 y.o. female presents for 6 months IOP check and OCT in follow up of of primary open angle glaucoma. The patient states that vision is stable and denies pain. Patient having ocular migraines. Patient had 1 floater but gone now, can't remember which eye Last edited by Christelle Castro on 05/27/2025 2:59 PM. Allergies, medications & history reviewed & updated by Christelle Castro REVIEW OF SYSTEMS Review of Systems HENT: Positive for hearing loss. Eyes: Floater dryness Respiratory: Negative for shortness of breath and wheezing. Neurological: Positive for headaches. >15 minutes was spent with patient updating allergies, medications, and medical history. Referring Physician: Self, Self * Abimbola Chacon MD - 05/27/2025 3:00 PM EDT Hx; 89 yo female with hx of CE done many years ago, also told about having glaucoma at that time. Has been maintained on drops for past several years, she notes that last visit she had abrasions OU so asked to transfer care here. Vision has been doing ok, vision improved after laser OS prior. No problems with drops. ROS: complete review of systems performed by mortuary technician, reviewed by me. OCT: follow up, good quality, shows moderate inferior thinning OU by GCC and RNFL HVF: baseline, good quality, shows peripheral defects OU CCT: thin at 510, 530 Meds: timolol bid OU, holding latanoprost at bedtime OU A/P 1)POAG: IOP is doing fine on meds at this point, would monitor for stability. RTC In 6 mo's forIOP check and HVF, sooner PRN. 2)PCO: resolved OS. 3)Dry eye; discussed use of lid hygiene and AT's. documented in this encounterOSU Memorial Health System10-03-2025 NoteClinical Information Procedure: I&D right thumb Pre-operative diagnosis: CONTUSION OF RT THUMB WITH DAMAGE TO NAIL INITIAL ENCOUNTER SP Specimen A Right thumbnail Gross Description Received in formalin labeled 'right thumbnail' is a green-discolored nail measuring 2.0 x 1.5 x 0.2cm. Assembly Inspector Helper sections are submitted in cassette A1 after decalcification. Microscopic Description No tissue retrieved after processing. Diagnosis Right thumbnail, excision: No tissue retrieved after processing. Nondiagnostic specimen. [id number] Jennifer Kincaid MD PhD (Electronically signed by) Verified: 05/22/25 10:09[facility] - WestComment on above:Performed By: #### SPR #### [facility] (DEFAULT) [address], [place] [id number] NoteCardiovascular Medicine [facility] #Cardiac risk stratification -RCRI: 1 points, [...] soon as cleared by surgeon. Chilango Yousif APRN-[facility] Cardiovascular MedicineLima [facility] Hospital06-18-2025 Note Attestation signed by Juan Casillas MD at 02/04/2025 12:57 AM I reviewed the salient portions of the patient history. I have seen and examined the patient with the resident/fellow Dr. Almeida on 01/30. I repeated the jessica components of the exam. Agree with the noted assessment and plan. Juan Casillas MD [facility] Physicians Pulmonary and Critical Care Medicine Pulmonary Clinic Visit Note Patient: Karen Gifford Age: 89 y.o. : 1935 Account No.: [id number] Follow up visit Last visit 03/2024 HPI [...] lobe. Past Medical History: Diagnosis Date A-fib ([facility]) Abnormal ECG Cancer ([facility]) CVA (cerebral vascular accident) ([facility]) GERD (gastroesophageal reflux disease) Hyperlipidemia Hypertension [...] production CV: no c (more content not included)...[facility] 12-13-2024 NoteCardiovascular Medicine [facility] SUBJECTIVE Chief Complaint Patient presents with Atrial Fibrillation Hypertension Karen Gifford is a 89 y.o. female here for follow-up after her recent admission to [facility]. HPI PMHx: persistent a.fib, sinus node dysfunction [...] got back a few weeks ago from [place], they went to [place] for a couple of months. Patient Active [...] Epidermal inclusion cyst Fibrocystic breast History of ND (myocardial infarction) Hypothyroidism Iron deficiency anemia Osteopenia [...] Eyes: Extraocular Movements: Extraocula (more content not included)...[facility]05-01-2025 NotePatient is here for a 6 month follow [...] for palpitations (heart pounding). Musculoskeletal: Positive for arthritis.[facility] 11-21-2024 History of Present illness Narrative* Kimberly العلي - 11/21/2024 3:15 PM EDT REASON FOR VISIT Karen Gifford presents to clinic today for a Established Patient visit. Chief Complaint Follow-up HISTORY OF PRESENT ILLNESS HPI 5+ months Primary Open Angle Glaucoma Follow-up; [facility] Patient asked about problems with loss of vision, eye pain/irritation, redness and discharge. The patient denies all except for the following: patient states eyes have been feeling more dry recently and states her left eye today feels like something is it in. Patient says she has been trying to useArtificial Tears 3-4x/day both eyes. Notes she bought [...] is nervous/anxious (sometimes). Referring Physician: Self, Self * Abimbola Chacon MD - 11/21/2024 3:15 PM EDT Hx; 89 yo female with hx of [...] ROS: complete review of systems performed by mortuary technician, reviewed by me. OCT: follow up, good quality, shows moderate inferior thinning OU by GCC and RNFL HVF: baseline, good quality, shows peripheral defects OU CCT: thin at 510, 530 Meds: timolol bid OU, holding latanoprost at bedtime OU A/P 1)POAG: IOP is doing fine on meds at this point, would monitor for stability. RTC In 6 mo's forIOP check and OCT, sooner PRN. 2)PCO: resolved OS. 3)Dry eye; discussed use of lid hygiene and AT's. documented in this encounterOSU Memorial Health System11-12-2024 NoteUT Electrophysiology Consult Note Reason for visit: Hospital [...] fib with varying intervals Echocardiogram performed at [facility] on 12/25/2021 showed EF of 55 [...] HTN, LANEY, HLD FMHx: mother - hx ND ETOH: denies Tobacco: denies Illicit drugs: denies [...] file Number of Places (more content not included)...[facility]10-21-2024 History of Present illness Narrative* Kulwant Ellis - 06/04/2024 3:30 PM EDT REASON FOR VISIT Karen Gifford presents to clinic today for a Follow-Up Patient visit. HISTORY OF PRESENT ILLNESS HPI Karen Gifford, a 89 y.o. female is present today for a 6 month follow-up for IOP check with OCT.POH of POAG. Asked about problems with loss of vision, changes or decreased vision, glare, eye pain/irritation, itching, flashes of light, floaters, excessive tearing, redness and discharge. Patient reports that vision is unchanged since last visit and denies all complaints at this time. Pt states that the eyesare doing much better after stopping the Latanoprost. [...] time was spent with patient performing the mortuary technician work of this visit. * Abimbola Chacon MD - 06/04/2024 3:30 PM EDT Hx; 89 yo female with hx of [...] ROS: complete review of systems performed by mortuary technician, reviewed by me. OCT: follow up, good quality, shows moderate inferior thinning OU by GCC and RNFL HVF: baseline, good quality, shows peripheral defects OU CCT: thin at 510, 530 Meds: timolol bid OU, latanoprost at bedtime OU A/P 1)POAG: IOP is doing fine on meds at this point, would monitor for stability. RTC In 6 mo's forIOP check and HVF, sooner PRN. 2)PCO: resolved OS. documented in this encounterOSU Memorial Health System09-05-2024 NoteGeneral Surgery Office/Clinic Note Chief Complaint consultation for anemia and positive occult stool HPI Staff 88 year old female presents on consultation from Dr. Austin for positive occult stool and anemia. Labscompleted 03/27 with H/H 9.9 and 34.0. Denies abdominal or rectal pain. Denies noting BRBPR. Denies bowel changes. Reports intermittent episodes of dark stools, denies thick or tarry stools. Denies nausea or vomiting. Reports approximately 20 pound weight loss over the past 6 months for which she contributes to loss of appetite. Denies fatigue, SOB, dizziness or lightheadedness. Verbalized she hadan EGD October 2023 for RUQ pain that [...] significant for appendectomy, cholecystectomy and hysterectomy; last ejnvyywckru0754, wnl; patient had EGD 10/2023 in [place] due to upper abd pain, found gastritis, [...] swallowing difficulties, no hearing loss, no ear infection(s),no nose bleeds. Cardiovascular: normal blood pressure, no [...] breast History of chronic gastritis History of ND (myocardial infarction) HTN (hypertension) Hypothyroidism Iron deficiency anemia Mitral regurgitation Multiple pulmonary nodules LANEY (obstructive sleep apnea) Osteopenia Perica (more content not included)...[facility] HospitalComment on above:Result Comment: Electronically Signed By: CAITLIN CORDON, Avtar Priest\Date and Time Signed: 04/19/24 13:12 [id number] History of Present illness Narrative* Wes Diaz MD - 04/18/2024 10:00 AM EDT Subjective: Karen is a 89 y.o. female [...] falsely elevated in inflammatory lung conditions. She currentl y has no symptoms from this pelvic cyst. [...] JVD, supple, symmetrical, trachea midline and thyroid notenlarged, symmetric, no tenderness/mass/nodules Lungs: clear to auscultation [...] procedures Referring and communicating with other health nonfarm animal caretaker (not separately reported) Documenting clinical information in the electronic or other health record Wes Diaz MD documented in this encounterOhio State East Hospital08-15-2024 Instructions* Patient Instructions* Zee Hollis MA - 03/29/2024 2:19 PM EDT We will see you back in the office: as needed If you need to cancel or reschedule an appointment please call [phone]. If you have any questions please call SHERRY Burciaga directly at [phone]. documented in this [id number] History of Present illness Narrative* Kiko Barba CNP - 03/29/2024 2:10 PM EDT ELECTROPHYSIOLOGY Clinic Established Follow Up Visit Patient Name: Karen Gifford MR #: [id number] : 1935 Physicians: Vincenzo Austin MD (Family); No ref. provider found (Referring) Primary Gold Cutter: Dr. Jay Guerra Assessment and Plan: ASSESSMENT: Recent hospitalization for shortness of breath -found with large pericardial effusion status post pericardiocentesis -Found with large pleural effusion status post bilateral thoracentesis -Perhaps malignant? Persistent atrial fibrillation -ECF8TL1-JVEn: 5 on Xarelto -Rate control strategy previously [...] She already followed up with cardiology at [place] and is due to follow-up with pulmonology soon to address her pleural effusions and perhaps discuss malignancy etiology. She is interested in consolidating care at [place] which would be reasonable to keep her close to home. All of our records are available through care everywhere and able to be accessed at [place]. We will be available for any as needed follow-ups if the need were to arise. FOLLOW UP IN: As needed Kiko Barba, MS, INTERDISCIPLINARY PROFESSOR-COUNTER HAND, AGACNP-BC [facility] Heart &Vascular Physicians Office Inpatient: Please contact me through secure chat To expedite correspondence this note was generated by Widbook voice recognition software. Some grammatical or spelling errors may occur using the system Chief Complaint/Reason for Visit: Follow up History of Present Illness: It is my pleasure to see Karen Gifford in the Electrophysiology Clinic on 03/29/24. As you recall,she has a PMH of hypertension, hyperlipidemia, LANEY, HFpEF, persistent atrial fibrillation, and sicksinus syndrome status post dual- chamber pacemaker implant. She is presenting today for posthospitalfollow-up. She is a patient of Dr. Eid. [...] Strain: Low Risk (03/08/2024) Re[facility] from [facility] Overall Financial Resource Strain (CARDIA) Difficulty of Paying Living Expenses: Not hard at all Food Insecurity: No Food Insecurity (03/08/2024) Received from [facility] Hunger Vital Sign Within the past 12 months, you worried that your food would run out before you got the money to buymore.: Never true Transportation Needs: No Transportation Needs (03/08/2024) Received from [facility] Transportation In the past 12 months, has lack of transportation kept you from medical appointments or from getting medications?: No Housing Stability: Low Risk (03/08/2024) Received from [facility] Housing Stability Vital Sign In the last 12 months, was there a time when you did not have a steady place to sleep or slept in [facility] (including now)?: No Allergies: Calcium channel blocking [...] Transcriptions 03/29/24 2:23 PM documented in this [id number] NoteELECTROPHYSIOLOGY Clinic Established Follow Up Visit Patient Name: Karen Gifford MR #: [id number] : 1935 Physicians: Vincenzo Austin MD (Family); No ref. provider found (Referring) Primary Gold Cutter: Dr. Jay Guerra Assessment and Plan: ASSESSMENT: Recent hospitalization for shortness of breath -found with large pericardial effusion status post pericardiocentesis -Found with large pleural effusion status post bilateral thoracentesis -Perhaps malignant? Persistent atrial fibrillation -PEX5TV6-ODRp: 5 on Xarelto -Rate control strategy previously [...] She already followed up with cardiology at [place] and is due to follow-up with pulmonology soon to address her pleural effusions and perhaps discuss malignancy etiology. She is interested in consolidating care at [place] which would be reasonable to keep her close to home. All of our records are available through care everywhere and able to be accessed at [place]. We will be available for any as needed follow-ups if the need were to arise. FOLLOW UP IN: As needed Kiko Barba, MS, INTERDISCIPLINARY PROFESSOR-COUNTER HAND, AGACNP-[facility] Heart &Vascular Physicians Office Inpatient: Please contact me through secure chat To expedite correspondence this note was generated by Widbook voice recognition software. Some grammatical or spelling [...] follow-up. She is a patient of Dr. Guerra'jose daniel.. Subjective: Doing well with no complaints Objective: [...] Strain: Low Risk (03/08/2024) Received from [facility] Overall Financial Resource Strain (CARDIA) Difficulty of Paying Living Expenses: Not hard at all Food Insecurity: No Food Insecurity (03/08/2024) Received from [facility] Hunger Vital Sign Within the past 12 months, you worried that your food would run out before you got the money to buy more.: Never true Transportation Needs: No Transportation Needs (03/08/2024) Received from [facility] Transportation In the past 12 months, has lack of transportation kept you from medical appointments or from getting medications?: No Housing Stability: Low Risk (03/08/2024) Received from [facility] Housing Stability Vital Sign In the last 12 months, was there a time when you did not have a steady place to sleep or slept in a mcfp (including now)?: No Allergies: Calcium channel blocking [...] by mouth daily w (more content not included)...[facility]07-25-2024 Miscellaneous Notes* Telephone Encounter - Nakita Plunkett - 03/08/2024 9:22 AM EDT Mat Man left voice message to reschedule appt. Provider out of office. [facility]* Telephone Encounter - Nakita Plunkett - 03/08/2024 9:22 AM EDT Mat Man left voice message to reschedule appt. Provider out of office. [facility]07-22-[facility]24 Miscellaneous Notes* Telephone Encounter - Jenny Rocha RN - 03/05/2024 3:30 PM EDT DONAL left instructing pt to c/b for new patient visit. [facility] Telephone encounter Note* Telephone Encounter - Jenny Rocha RN - 03/05/2024 3:30 PM EDT VM left instructing pt to c/b for new patient visit. [facility]04-18-[facility] History of Present illness Narrative* Mindi Holt - 12/01/2023 10:30 AM EDT REASON FOR VISIT Karen Gifford presents to [...] time was spent with patient performing the mortuary technician work of this visit. Referring Physician: * Abimbola Chacon MD - 12/01/2023 10:30 AM EDT Hx; 88 yo female with hx of [...] ROS: complete review of systems performed by mortuary technician, reviewed by me. OCT: baseline, good quality, shows moderate inferior thinning OU by GCC and RNFL HVF: baseline, good quality, shows peripheral defects OU CCT: thin at 510, 530 Meds: timolol bid OU, latanoprost at bedtime OU A/P 1)POAG: IOP is doing fine on meds at this point, would monitor for stability. RTC In 6 mo's forIOP check and OCT, sooner PRN. 2)PCO: resolved OS. [facility] History of Present illness Narrative* Jay Guerra MD - 06/28/2023 1:00 PM EST Electrophysiology Clinic Consult Heart & Vascular [facility] 06/28/2023 Jay Guerra MD [address] [facility] [address] Patient: Karen Gifford Date of : [...] flecainide thereafter without significant burden of atrial f ibrillation detected on serial device checks until the [...] her age, doing water walking at the [facility] for 30 minutes twice per week. She [...] RA and RV lead parameters and normal devicefunction with estimated battery longevity of 8 years, [...] SPECT performed on 03/22/2022 showed no evidence ofmyocardial ischemia or scar. Objective Medical History Past [...] arm, Patient Position: Sitting, BP Cuff Size: X- large Adult) Pulse 77 Ht 5' 7 Laboratory [...] 88 y.o. female who presents today to [facility] care. The following issues were addressed at [...] for rate control, although I recommended that shediscuss with her PCP possible dose reduction of [...] daily indefinitely in the setting of a [id number] score of 5. Sick sinus syndrome status [...] of her Cardizem in favor of an alternativeagent for blood pressure control such as losartan [...] preserved ejection fraction: She appears euvolemic and well- perfused today on exam. She will continue on [...] members, referring and/or communicating with other health nonfarm animal caretaker, coordinating care, and documenting the above findings. documented in this [id number] Instructions* Patient Instructions* Janet Mendoza RN - 06/28/2023 12:44 PM EST Testing Ordered: None Medication Changes: Stop Amiodarone Lab Work Ordered: None To schedule any outpatient testing( if applicable) simply call [phone] and follow the prompts to schedule any outpatient testing. If you have any questions or concerns about today's visit please call Janet POWELL at [phone] documented in this [id number] History of Present illness Narrative* Shanique Ndiaye - 05/31/2023 10:15 AM EDT REASON FOR VISIT Karen Gifford presents to [...] time was spent with patient performing the mortuary technician work of this visit. Referring Physician: * Abimbola Chacon MD - 05/31/2023 10:15 AM EDT Hx; 88 yo female with hx of CE done many years ago, also told about having glaucoma at that time. Has been maintained on drops for past several years, she notes that last visit she had abrasions OU so asked to transfer care here. Vision has been doing ok, OS has been more blurred with a little moredifficulty reading at this point. Here with daughter today who is establishing care as well. ROS: complete review of systems performed by mortuary technician, reviewed by me. OCT: baseline, good quality, shows moderate inferior thinning OU by GCC and RNFL CCT: thin at 510, 530 Meds: timolol bid OU, latanoprost at bedtime OU A/P 1)POAG: IOP is doing fine on meds at this point, would monitor for stability. RTC In 6 mo's forIOP check and HVF, sooner PRN. 2)PCO: has a moderately dense PCO OS leading to decreased vision there, discussed R/B/A of YAG withher, she would like to proceed. Yag Capsulotomy [...] the medications as well as a follow-up appointment.Karen Gifford was instructed to contact the office with any questions/concerns or the [facility] on-call for ocular emergencies after hours documented in this [facility]08-08-2022 NoteCARDIAC STRESS TEST Requesting Physician: Procedure Date:03/22/2022 INDICATION: [...] read, interpreted and reported in a separate dictation.[facility] No data available for this section [facility] [place] Evaluation note* Diagnosis Primary open-angle glaucoma, bilateral, indeterminate stage- Primary PCO (posterior capsular opacification), left After-cataract, unspecified [facility] Diagnosis PAF (paroxysmal atrial fibrillation) (HCC)- Primary Atrial fibrillation [facility] Diagnosis PAF (paroxysmal atrial fibrillation) (HCC)- Primary Atrial fibrillation 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 SSS (sick sinus syndrome) ([facility]) Sinoatrial node dysfunction Hypertension, unspecified type Heart failure with preserved ejection fraction, unspecified HF chronicity ([facility]) [facility] Diagnosis Primary open-angle glaucoma, bilateral, indeterminate stage- Primary [facility] Diagnosis PAF (paroxysmal atrial fibrillation) (HCC)- Primary Atrial fibrillation 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 [facility] Diagnosis PAF (paroxysmal atrial fibrillation) (HCC)- Primary Atrial fibrillation [facility]* Diagnosis Persistent atrial fibrillation (HCC)- Primary Atrial fibrillation PAF (paroxysmal atrial fibrillation) (HCC) Atrial fibrillation SSS (sick sinus syndrome) (HCC) Sinoatrial node dysfunction 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 Pericardial effusion Unspecified disease of pericardium Pleural effusion Unspecified pleural effusion [facility]* Diagnosis Primary open-angle glaucoma, bilateral, indeterminate stage- Primary [facility]* Diagnosis Cyst of right ovary- Primary Other and unspecified ovarian cyst Elevated cancer antigen 125 (CA 125) Elevated cancer antigen 125 [CA 125] [facility] Diagnosis Primary open-angle glaucoma, bilateral, indeterminate stage- Primary Dry eye syndrome of bilateral lacrimal glands Tear film insufficiency, unspecified [facility] Diagnosis Primary open-angle glaucoma, bilateral, indeterminate stage- Primary Dry eye syndrome of bilateral lacrimal glands Tear film insufficiency, unspecified Primary open-angle glaucoma, bilateral, moderate stage [facility]* Diagnosis Cyst of right ovary Other and unspecified ovarian cyst Pelvic pain Complex ovarian cyst [facility] No data available for this section [facility] [place] InstructionsNot on filedocumented in this encounter [facility] on filedocumented in this encounter [facility]Not on filedocumented in this encounter [facility]ructionsNot on filedocumented in this encounter [facility] No data available for this section [facility] [place] Summary Purpose Family History No Family History [...] No Advanced Directives Records FoundDocuments on File TypeDate RecordedPatient RepresentativeExplanationAdvance Directives and Living Will06/28/2023 12:40 PMTypeDate RecordedPatient RepresentativeExplanationAdvance Directives and Living Will06/28/2023 12:40 PM Reason for Referral SpecialtyDiagnoses / ProceduresReferred By ContactReferred To ContactCardiology Diagnoses PAF (paroxysmal atrial fibrillation) (HCC) Procedures ECG 12 lead Jay Guerra MD [address] [facility] [address] [place] [address] Referral IDStatusReasonStart DateExpiration DateVisits RequestedVisits [id number]/[id number] / Procedures Referred By ContactReferred To ContactCardiology Diagnoses PAF (paroxysmal atrial fibrillation) (HCC) Presence of cardiac pacemaker Procedures ECG 12 lead Jay Guerra MD [address] [place] [address] Referral IDStatusReasonStart DateExpiration DateVisits RequestedVisits [id number] / Procedures Referred By ContactReferred To ContactCardiology Diagnoses PAF (paroxysmal atrial fibrillation) (HCC) Procedures ECG 12 lead Jameson, Kiko Stevenson, COUNTER HAND [address] [facility] [address] [place] [address] Referral IDStatusReasonStart DateExpiration DateVisits RequestedVisits [id number]/13/20248/13/[id number] Additional Source Comments INFORMATION SOURCE (unrecogn ized section and content) DATE CREATED AUTHOR 12/28/2022 [facility] DATE CREATED AUTHOR AUTHOR'S ORGANIZ ATION 03/10/2023 [facility] DATE CREATED AUTHOR AUTHOR'S ORGANIZ ATION 12/10/2023 [facility] DATE CREATED AUTHOR AUTHOR'S ORGANIZ ATION 04/02/2024 [facility] DATE CREATED AUTHOR AUTHOR'S ORGANIZ ATION 04/19/2024 [facility] DATE CREATED AUTHOR AUTHOR'S ORGANIZ ATION 04/19/2024 [facility] DATE CREATED AUTHOR AUTHOR'S ORGANIZ ATION 05/12/2024 [facility] DATE CREATED AUTHOR AUTHOR'S ORGANIZ ATION 05/28/2025 [facility] DATE CREATED AUTHOR AUTHOR'S ORGANIZ ATION 06/05/2025 [facility] DATE CREATED AUTHOR AUTHOR'S ORGANIZ ATION 06/12/2025 [facility] DATE CREATED AUTHOR AUTHOR'S ORGANIZ ATION 06/16/2025 [facility] Reason for Visit (unrecogniz ed section and content) ReasonCommentsNew ExtivaoCozogwjwCtcevhZygjgfmpRxvjaz-koGpwtbmWhglqrulNqkwbf-tw Hosp. F/uReasonOnset DateCommentsReschedule appt4ReasonCommentsNew PatientReasonCommentsGynecologic Exam Care Teams (unrecognized sec tion and content) Team MemberRelationshipSpecialtyStart DateEnd Date Vincenzo Austin MD [address] [place] [phone] PCP - GeneralFamily Eueeovkf10/17/23 Jennifer Redman DO [address] [place] [address] Eecdvxwmxzqin50/17/23Te MemberRelationshipSpecialtyStart DateEnd Date Vincenzo Austin MD [address] [place] [address] PCP - GeneralFamily Kkmqkgqr87/1/23Te MemberRelationshipSpecialtyStart DateEnd Date Vincenzo Austin MD [address] [place] [address] PCP - GeneralFamily Kfhoxsvb89/1/23 Jay Guerra MD [address] [place] [address] Cardiac Drpeoyjvngeurunwr98/14/23Te MemberRelationshipSpecialtyStart DateEnd Date Vincenzo Austin MD [address] [place] [address] PCP - GeneralFamily Hnnxucdv42/1/23 Jay Guerra MD [address] [place] [address] Cardiac Glhpdjwykktvvkjtn52/14/23Team MemberRelationshipSpecialtyStart DateEnd Date Vincenzo Austin MD [address] [place] [address] PCP - GeneralFamily Nbvpvqmr07/1/23 Jay Guerra MD [address] [place] [address] Cardiac Nhooauadgqkjkopfx18/14/23Team MemberRelationshipSpecialtyStart DateEnd Date Vincenzo Austin MD [address] [place] [address] PCP - GeneralFamily Bunzkdes40/1/23 Jay Guerra MD [address] [facility] [address] [place] [address] Cardiac Vnnnqbnggbcqczgzk48/14/23Team MemberRelationshipSpecialtyStart DateEnd Date Vincenzo Austin MD [address] [place] [phone] PCP - GeneralFamily Mzstaadv98/17/23 Jennifer Redman DO [address] [place] [place] [address] Lkghimojizkkf32/17/23Team MemberRelationshipSpecialtyStart DateEnd Date Provider, Conversion, PCP - General02/07/14Team MemberRelationshipSpecialtyStart DateEnd Date Provider, Conversion, PCP - General02/07/14Team MemberRelationshipSpecialtyStart DateEnd Date Provider, Conversion, PCP - General02/07/14Team MemberRelationshipSpecialtyStart DateEnd Date Provider, Conversion, PCP - General02/07/14Team MemberRelationshipSpecialtyStart DateEnd Date Vincenzo Austin MD [address] [place] [phone] PCP - GeneralFamily Fqupiqot87/17/23 Jennfier Redman DO [address] [place] [place] [address] Qdifxdlrtdoyb41/17/23Team MemberRelationshipSpecialtyStart DateEnd Date Vincenzo Austin MD PCP - GeneralFamily Klhmavig12/17/23 Jennifer Redman Travis Dnxfvfeulqxaq64/17/23Team MemberRelationshipSpecialtyStart DateEnd Vincenzo Austin MD PCP - GeneralFamily Medicine12/19/23Team MemberRelationshipSpecialtyStart DateEnd Vincenzo Austin MD PCP - GeneralFami Medicine12/19/23Te MemberRelationshipSpecialtyStart End Vincenzo Austin MD PCP - GeneralFami Medicine12/19/23 FOR RECORDS PERTAINING TO PATIENTS WHO ARE [...] BE BASED ON THE PRIMARY CLINICAL RECORDS. [facility]. provides no warranty or guarantee of the accuracy or completeness of information in this document.
== END 2025-06-20 08:31 | disposition home or self-care (01) ==
LOC: LAB 08:38
PROVIDERS: PCP Family Medicine; Visit Provider Obstetrics & Gynecology
DX: N83.201 Unspecified ovarian cyst, right side (principal); N83.299 Other ovarian cyst, unspecified side
CPT/HCPCS: 36415; 86304

== ENCOUNTER 2025-06-20 08:40 | Outpatient (OUT) | payer MEDICARE, OTHER, SELFPAY ==
--- OUTSIDE RECORDS SUMMARY | 2025-06-20 08:42 | XMS_ITS | Clinical Summary ---
Author Organization [facility] Address [address] [place] [address] Care Team Providers Care Adoption Agent Name Role Phone Billy Patel MD Primary Care Provider [phone] Social History Tobacco UseTypesPacks/DayYears UsedDateSmoking Tobacco: Never Assessed CommentsUnknownSex and Gender InformationValueDate RecordedSex Assigned at Not on fileLegal UwvOqxxjd64/02/2012 9:30 AM ESTGender IdentityNot on fileSexual OrientationNot on file Plan of Treatment Not on file Insurance Care Teams Team MemberRelationshipSpecialtyStart DateEnd Date [facility] Patel MD [facility]
--- OUTSIDE RECORDS SUMMARY | 2025-06-20 08:46 | XMS_ITS | CCD ---
Author Organization [facility] Care Team Providers Care Assisted Living Executive Director Name Role Phone MELONYY ., DR LOYA [...] Unavailable HOY ., DR LOYA Consulting Unavailable [place], DR JAY Santillan Consulting Unavailable ISI YOUSIFA [...] Unavailable Vincenzo Austin MD Primary Care Provider [phone] Feroz DO, Jennifer Y Unavailable Vincenzo Austin MD Primary Care Provider [phone] Jay Guerra MD Unavailable HOVINCENZO Robles Primary [...] Care Unavailable Vincenzo Austin Primary Care Physician [phone] Avtar TUCKER Attending Unavailable Vincenzo Austin Referring Unavailable Avtar TUCKER Attending Unavailable Provider , [facility] Primary Care Provider Un available VINCENZO AUSTIN Primary Care Unavailable ABIMBOLA CHACON Attending Unavailable SELF, SELF Referring Unavailable VINCENZO AUSTIN Primary Care Unavailable ABIMBOLA CHACON Attending Unavailable SELF, SELF Referring Unavailable SELF, SELF Referring Unavailable VINCENZO AUSTIN Primary Care Unavailable ABIMBOLA CHACON Attending Unavailable Vincenzo Austin MD Primary Care Provider [phone] Feroz SIMS, Jennifer Y Unavailable JJ AYERS Attending Unavailable CHILANGO YOUSIF Attending Unavailable JJ AYERS Referring Unavailable CHILANGO YOUSIF Attending Unavailable JJ AYERS Referring Unavailable JJ AYERS Referring Unavailable JJ AYERS Referring Unavailable SIMBA, JENNIFER Referring Unavailable SIMBA, JENNIFER Referring Unavailable ADY JOSEPH Referring Unavailable FABIOLA ALMEIDA Attending Unavailable Vincenzo Austin MD Primary Care Provider [phone] LAN HENNESSY Attending Unavailable Vincenzo Austin MD Primary Care Unavailaxel Vicente MD, Bruce Summers Attending Unavailable Allergies Allergy ClassificationReported Allergen(s)Allergy TypeDate of OnsetReaction(s) Facility (3 sources)Enalapril; Translations: [Vasotec]Drug Ljhubox48-87-6389Dcl[facility] (7 sources)Isosorbide; Translations: [ISOSORBIDE]Drug Tmzxvnx98-29-7547Ysd [facility] Repository (3 sources)NIFEdipine; Translations: [Procardia]Drug Lncwqdo09-81-8713VjwTri[facility] Repository (5 sources)Calcium Channel BlockersPropensity to adverse reactions to drug 37-64-5301[facility] (10 sources)Enalapril; Translations: [enalapril]Drug Vhqluam28-91-7781Gbesvhs (qualifier value), UnknownC[facility] (7 sources)Enalapril; Translations: [ENALAPRIL MALEATE]Drug Dgdmmre49-17-4378 UnknownOhioHealth (6 sources)IsosorbideDrug Qqkcbzu71-77-7125Nyddq (See Comments)[facility] (9 sources)Lisinopril; Translations: [LISINOPRIL]Drug Plfphwe42-09-3527Mspbz (See Comments), Unknown (qualifier value)[facility] (12 sources)Morphine; Translations: [MORPHINE]Drug Qdmhwge74-19-7974Ghkce (See Comments)[facility] (8 sources)NIFEdipine; Translations: [NIFEDIPINE]Drug Vfdehyt40-94-0785Qflmfom, Unknown (qualifier value)[facility] (11 sources)Sulfonamides (Antibiotic); Translations: [SULFA (SULFONAMIDE ANTIBIOTICS)]Propensity to adverse reactions to tdsd02-01-8271Evhksts, Other (See Comments)[facility] (10 sources)Calcium Channel Blocking Agents-Dihydropyridines; Translations: [CALCIUM CHANNEL BLOCKING AGENTS-DIHYDROPYRIDINES]Propensity to adverse reactions to bvqv66-55-9566Bheckvy, Other (See Comments)[facility] (5 sources)dorzolamide / Timolol; Translations: [DORZOLAMIDE-TIMOLOL]Drug Wbgvnoy55-05-4487Rdebk (See Comments)[facility] Repository (3 sources)Sulfonamides (Antibiotic); Translations: [sulfa drugs]Drug allergy Unknown (qualifier value)[facility] (1 source)Lisinopril; Translations: [Zestril]Drug AllergySelect Medical [facility] Repository (1 source)dapagliflozin; Translations: [DAPAGLIFLOZIN]Drug Mpzkiqb02-79-9612 [facility] Repository (6 sources)pantoprazole; Translations: [PANTOPRAZOLE]Drug Ysccfuu78-70-5713Ooivf [facility] Repository (4 sources)dorzolamide / TimololDrug Mnuglah85-42-6734SmuxxHGOI Healthcare (4 sources)LisinoprilAllergy to ctnseopwo14-52-9312Yibkt, UnknownNOFreeman Heart Institute (4 sources)Jhsdznrhjn24-64-3736LdxdkOWIN Healthcare (1 source)dapagliflozin; Translations: [Farxiga]Drug AllergyOhiohealth [facility] Repository (1 source)dorzolamide; Translations: [Dorzolamide Hydrochloride]Drug Allergy [facility] Repository Medications Current Medications MedicationDrug Class(es)DatesSig (Normalized)Sig (Original)albuterol 0.83 mg/ml inhalation solution (8 sources)beta2-Adrenergic AgonistStart: 34-88-6023kutnzumqg (2.5 MG/3ML) 0.083% nebulizer solution every 6 (six) hours if needed 02/16/2023 Active atenolol 100 mg oral tablet (13 sources)beta-Adrenergic BlockerStart: 16-40-6546jlpx 1 tablet by mouth in the morningatenolol (Tenormin) 100 MG tablet Take 100 mg by mouth in the morning and 100 mg before bedtime. 05/04/2023 Activeatorvastatin 10 mg oral tablet (7 sources)HMG-CoA Reductase InhibitorStart: 03-15-2024 End: 52-41-6584dkjfqgbaczqs (LIPITOR) 10 mg tablet Take 1 tablet (10 mg total) by mouth. 03/15/2024 05/14/2024 Activetake 1 tablet by mouth twice daily Atorvastatin 10 MG tablet Take 1 tablet by mouth 2 times daily. Activebumetanide 1 mg oral tablet (17 sources)Loop DiureticStart: 05-24-2023 End: 21-79-4597prid 1 tablet by mouth once dailybumetanide (Bumex) 1 MG tablet Take 1 mg by mouth Daily 05/24/2023 Activecholecalciferol 0.25 mg oral capsule (6 sources)Vitamin Dcholecalciferol (VITAMIN D3) 250 mcg (10,000 unit) capsule Only in the winter Activeciclopirox 80 mg/ml topical solution (11 sources)Start: 70-88-4550ogjausheoc 8 % Solution topical solution APPLY 1 SOLUTION TOPICALLY ONCE DAILY FOR 30 DAYS 03/24/2023 Activecolchicine 0.6 mg oral tablet (7 sources)Start: 03-15-2024 End: 34-80-3404byzb 1 tablet by mouth twice dailycolchicine 0.6 mg Tab 0.6 mg = 1 tab(s), Oral, BID, Refills(s) 0 Start Date: 04/13/24 Status: Qqonzil83 hr dilTIAZem hydrochloride 300 mg extended release oral tablet (18 sources)Calcium Channel BlockerStart: 38-05-9567filw 1 tablet by mouth once dailyCardizem LA 300 mg/24 hours oral tablet, extended release 300 mg = 1 tab(s), Oral, Daily, Refills(s) 0 Start Date: 04/13/24 Status: OrderedStart: 03-16-2024 End: 83-06-6641jvlb 1 capsule by mouth every twenty-four hours in the morning dilTIAZem CD (CARDIZEM CD) 240 mg 24 hr capsule Take 1 capsule (240 mg total) by mouth in the morning. 03/16/2024 05/15/2024 ActiveStart: 70-99-3247cktb 1 capsule by mouth once daily, then take 1 capsule by mouth every twenty-four hoursdilTIAZem CD (Cardizem CD) 300 MG 24 hr capsule Take 300 mg by mouth Daily 06/03/2023 ActiveStart: 44-19-3901Ynqnjuqkn 180 MG Cap SR 24HR capsule XL 04/26/2023 Activetake 1 capsule by mouth once dailyDiltiazem 240 MG Cap SR 24HR capsule XL Take 1 capsule by mouth daily. Activefamotidine 40 mg oral tablet (11 sources)Histamine-2 Receptor AntagonistStart: 95-91-9210vlcw 1 tablet by mouth twice dailyPepcid 40 MG tablet Take 1 tablet by mouth 2 times daily. 11/30/2023 Activetake 1 tablet by mouth in the morningfamotidine (Pepcid) 20 MG tablet Take 20 mg by mouth in the morning and 20 mg before bedtime. Active ferrous sulfate 325 mg delayed release oral tablet (3 sources)Start: 55-61-4682kmtx 1 tablet by mouth twice dailyferrous sulfate 325 mg oral enteric coated tablet 325 mg = 1 tab(s), Oral, BID, Refills(s) 0 Start Date: 04/13/24 Status: OrderedStart: 21-46-4396rvks 1 tablet by mouth twice dailyferrous sulfate 325 (65 FE) mg tablet 1 tablet Orally Twice Daily for 30 days 03/28/2024 ActivehydrALAZINE hydrochloride 100 mg oral tablet (13 sources)Arteriolar VasodilatorStart: 04-13-7984zyxxGYBFHHG (Apresoline) 100 MG tablet Take 100mg twice daily 05/20/2023 Activelatanoprost 0.05 mg/ml ophthalmic solution (16 sources)Prostaglandin AnalogStart: 25-94-0891intoqxqvpoq (Xalatan) 0.005 % ophthalmic solution 1 (one) time each day at the same time 05/16/2023ctive Start: 79-33-0501Xxynhydkbqa 0.005 % Solution ophthalmic solution 05/16/2023 ActiveStart: 15-84-5852jjabbkgjvyk (XALATAN) 0.005 % ophthalmic solution Administer 1 drop to both eyes. 05/16/2023 ActiveStart: 73-55-2885mnsy 1 drop(s) into the eye(s) once daily at bedtimelatanoprost ophthalmic 0.005% solution 1 drop(s), OPTH, Once a day (at bedtime), 2.5 mL, Refill(s) 0 Start Date: 11/14/20 Status: Orderedliothyronine sodium 0.005 mg oral tablet (16 sources)l-TriiodothyronineStart: 04-12-0541kdvi 2 tablets by mouth once dailyliothyronine 5 mcg Tab 10 mcg = 2 tab(s), Oral, Daily, Refills(s) 0 Start Date: 04/13/24 Status: OrderedStart: 32-71-2548ackxxdqxvoeb (Cytomel) 5 MCG tablet 5 mcg in the morning and 5 mcg before bedtime. 05/16/2023 ActiveStart: 55-09-1873qvbo 2 tablets by mouth once dailyLiothyronine 5 [...] oxide 250 mg oral tablet (1 source)Start: 40-07-9019biyu 1 tablet by mouth twice dailymagnesium oxide 250 mg oral tablet 250 mg = 1 tab(s), Oral, BID, Refills(s) 0 Start Date: 04/13/24 atus: Orderedmetoprolol tartrate 50 mg oral tablet (7 sources)beta-Adrenergic BlockerStart: 03-15-2024 End: 48-17-4842sysjsgmlph tartrate (LOPRESSOR) 50 mg tablet Take 1 tablet (50 mg total) by mouth. 03/15/2024 05/14/2024 Activetake 1 tablet by mouth three times dailyMetoprolol succinate 50 MG tablet XL Take 1 tablet by mouth 3 (three) times a day. Activerivaroxaban 20 mg oral tablet (16 sources)Factor Xa InhibitorStart: 52-48-3096mmkp 1 tablet by mouth once dailyXarelto 20 MG tablet Take 1 tablet by mouth daily. 05/18/2023 Active simvastatin 10 mg oral tablet (13 sources)HMG-CoA Reductase InhibitorStart: 43-94-1482yukg 1 tablet by mouth in the morningsimvastatin (Zocor) 10 MG tablet Take 10 mg by mouth in the morning and 10 mg before bedtime. 05/29/2023 Hqvhgq89 hr timolol 5 mg/ml ophthalmic solution (20 sources)beta-Adrenergic BlockerStart: 83-88-2151fegl 1 drop(s) into the eye(s) twice dailyTimolol maleate 0.5 % Solution ophthalmic solution Place 1 drop in both eyes 2 times daily. 30 mL ActiveStart: 97-81-8426ziyt 1 drop(s) into the eye(s) in the morningtimolol (Timoptic) 0.5 % ophthalmic solution 1 drop in the morning and 1 drop before bedtime. 05/09/2023 Active Start: 05-09-2023 End: 19-03-9964stqz 1 drop(s) into the eye(s) twice dailyTimolol maleate 0.5 % Solution ophthalmic solution Place 1 drop in both eyes 2 times daily. 30 mL 3 11/21/2024 ActiveStart: 01-30-6236Pjydgro maleate 0.5 % Solution ophthalmic solution 05/09/2023 ActiveStart: 37-71-3679ufeohjc (TIMOPTIC) 0.5 % ophthalmic solution every night at bedtime . 05/09/2023 ActiveStart: 98-23-5856Rhxvmvf Maleate (Eqv-Istalol) 0.5% ophthalmic solution Refill(s) 0 Start Date: 11/14/20 Status: Orderedtake 1 drop(s) into the eye(s) twice dailytimoloL (BETIMOL) 0.25 % ophthalmic solution 1 (one) drop 2 (two) times a day . Active Completed/Discontinued Medications MedicationDrug Class(es)DatesSig (Normalized)Sig (Original)amiodarone hydrochloride 200 mg oral tablet (6 sources)AntiarrhythmicStart: 05-06-2023 End: 85-66-3942hajtcvqaqp (CORDARONE) 200 MG tablet Take by mouth . 0 05/06/2023 06/28/2023 Discontinued (Therapy completed) Problems Active Problems Problem ClassificationProblemDateDocumented DateEpisodic/ChronicCardiac dysrhythmias (20 sources)Unspecified atrial fibrillation; Translations: [Paroxysmal atrial fibrillation]Onset: 919064-28-4896OmjbvyqNoeopjv dysrhythmias (4 sources)Palpitations; Translations: [PALPITATIONS]Onset: 09-06-2688Gtjcvynd Cataract (2 sources)After-cataract of left eye; Translations: [Other secondary cataract, left eye]65-92-8522YirvzyjBptntwmtnd disorders (13 sources)Cardiac pacemaker in situ; Translations: [Presence of cardiac pacemaker]Onset: 374382-19-3326OqyztdyAysbficmxf heart failure; nonhypertensive (13 sources)Unspecified diastolic (congestive) heart failure; Translations: [Acute combined systolic (congestive) and diastolic (congestive) heart failure] Onset: 96-36-2878JtpzbixXgsbssru atherosclerosis and other heart disease (1 source)History of myocardial hidryfeeim60-70-6718TyrlgiyVmgxnaxxon and other anemia (2 sources)Iron deficiency anemia; Translations: [Iron deficiency anemia, unspecified]Onset: 76-28-7767OnonzmjdJomkdnhlf of lipid metabolism (5 sources)Pure hypercholesterolemia, unspecified; Translations: [Hyperlipidemia, unspecified]Onset: 568584-44-7922VscymxcIuivvtvhx hypertension (8 sources)Hypertensive disorder; Translations: [Essential (primary) hypertension]Onset: 952988-30-8574VvgibghJjowq and electrolyte disorders (1 source)Hypokalemia; Translations: [HYPOKALEMIA]Onset: 30-88-6008Reevhbkd Gastrointestinal hemorrhage (1 source)Gastrointestinal -54-7329LncaelhyOgmcpykx (10 sources)Primary open angle glaucoma; Translations: [Primary open-angle glaucoma, bilateral, indeterminate stage]Onset: 849546-57-9895Btvizzi Headache; including migraine (3 sources)Headache; including migraine; Translations: [HEADACHE UNSPECIFIED] Onset: 26-21-1771Tuwwt valve disorders (3 sources)Aortic valve regurgitation; Translations: [Mitral valve regurgitation]74-43-7410AjxgekqZktivjfkybzf with complications and secondary hypertension (2 sources)Hypertensive heart disease with heart failure; Translations: [Hypertensive urgency]Onset: 48-01-3378YqshrlpNvuuatvoqt disorders (4 sources)Other primary ovarian failure; Translations: [OTHER PRIMARY OVARIAN FAILURE]Onset: 65-82-9816VxegoboBnrpbusfsqof breast conditions (1 source)Fibrocystic disease of lkaoya74-75-4070GruxauvTwrowvilc or stenosis of precerebral arteries (2 sources)Occlusion and stenosis of bilateral carotid arteries; Translations: [Occlusion and stenosis of bilateral carotid arteries]Onset: 36-04-7344Unltxzr Osteoarthritis (1 source)Hqvadqypfjnnqy23-25-3300EhwaenfBflxx and ill-defined heart disease (1 source)Hseeiselkzbm41-22-4910YyfnxavApxvs and ill-defined heart disease (1 source)Ventricular -13-4785LamonhsOnbvz bone disease and musculoskeletal deformities (1 source)Llbzunrxbn56-88-4667OkcslsypQrfwp eye disorders (3 sources)Disorder of lacrimal gland; Translations: [Dry eye syndrome of bilateral lacrimal glands]Onset: 175896-98-5535CgfmmcjfAzioi eye disorders (1 source)Dry eye syndrome of bilateral lacrimal glands; Translations: [Dry eye syndrome of bilateral lacrimal glands]Onset: 79-99-7083LffqnshpYrjug gastrointestinal disorders (1 source)Abnormal feces; Translations: [Other fecal abnormalities]Onset: 99-59-2472EevdwpzkXokxk gastrointestinal disorders (1 source)H/O: gastrointestinal disease; Translations: [Personal history of other diseases of the digestive system]Onset: 08-91-4162PiwbdclpMpazm gastrointestinal disorders (1 source)History of njvwjasws45-61-8147PitfefceVvexm gastrointestinal disorders (1 source)Occult blood in emmhnh43-58-2125UsrefzzgKycpm lower respiratory disease (4 sources)Shortness of breath; Translations: [SHORTNESS OF BREATH]Onset: 80-10-2428NlkdfzedVoizt lower respiratory disease (1 source)Xtlkhze87-57-6664ApxotchmGwbii lower respiratory disease (1 source)Multiple nodules of jnzt42-85-0601EpkkuracPyeno non-epithelial cancer of skin (1 source)Basal cell carcinoma of cpzn64-29-6625ZwhetslsWqhvj skin disorders (1 source)Epidermoid tdjo39-02-9737QeprkheeMnsxbyb cyst (9 sources)Unspecified ovarian cyst, right side; Translations: [Cyst of right ovary]Onset: 179102-66-0270AaesuenlReec-; endo-; and myocarditis; cardiomyopathy (except that caused by tuberculosis or sexually transmitted disease) (2 sources)Pericardial effusion; Translations: [Pericardial effusion]03-29-2024 EpisodicResidual codes; unclassified (1 source)Obstructive sleep apnea osdcpwxs44-02-3729VbuafkdWtxaupf (1 source)Wzmzsrw35-10-2560FgoyygbeKrckztk disorders (6 sources)Hypothyroidism, unspecified; Translations: [Hypothyroidism]Onset: 25-57-6229SjyuojkYiejpfqdh cerebral ischemia (1 source)Transient cerebral obxvmusn18-29-5567HlxnyhfJmrzarzumslv (3 sources)LOW BACK PAIN, UNSPECIFIED; Translations: [LOW BACK PAIN, UNSPECIFIED]Onset: 65-56-0281Dqzulxgwqgcc (1 source)PERSONAL HISTORY OF COVID-19; Translations: [PERSONAL HISTORY OF COVID-19]Onset: 33-02-1610Rubllmizednu (2 sources)Other persistent atrial fibrillation; Translations: [Other persistent atrial fibrillation]Onset: 66-22-9757Zfgninrwjngj (1 source)Other pericardial effusion (noninflammatory); Translations: [Other pericardial effusion (noninflammatory)]Onset: 06-20-2447Xgwiclklrpfe (1 source)New PatientOnset: 80-57-7208Awjvvtkwhnpd (1 source)Sebaceous cyst of ixvg56-68-0396Fhlayaylpbcf (2 sources)Lung Nodule; Translations: [Lung Nodule]Onset: 53-68-5823Ybtwyjvkxzce (2 sources)Pain in pelvis; Translations: [Pelvic pain]06-11-2025 Past or Other Problems Problem ClassificationProblemDateDocumented DateEpisodic/Chronic Administrative/social admission (4 sources)Encounter for other administrative examinations; Translations: [ENCOUNTER OTH ADMIN EXAMINATIONS]Onset: 66-98-1509YwuihgltZsinqrehzl and other anemia (1 source)Anemia, unspecified; Translations: [ANEMIA UNSPECIFIED]Onset: 19-16-6110LtfkvybvUexpkelv mellitus without complication (2 sources)Impaired fasting glucose; Translations: [Other abnormal glucose] Onset: 81-90-6862OkrsmkrqCxkbcqo and fatigue (1 source)Other fatigue; Translations: [OTHER FATIGUE]Onset: 95-25-2189Bccinvss Other aftercare (1 source)Other termite control technician (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) drug therapy; Translations: [OTH INTERMEDIATE CURRENT DRUG THERAPY]Onset: 27-39-4782DmdlrajlCrnad lower respiratory disease (2 sources)Other nonspecific abnormal finding of lung field; Translations: [Other nonspecific abnormal findingof lung field]Onset: 45-93-4710IbbfoebgWwthf screening for suspected conditions (not mental disorders or infectious disease) (10 sources)Encounter for screening for malignant neoplasm of rectum; Translations: [Encounter for screening for osteoporosis]Onset: 03-22-2022 EpisodicPleurisy; pneumothorax; pulmonary collapse (5 sources)Pleural effusion; Translations: [Pleural effusion, not elsewhere classified]Onset: 155033-20-4875RxvkvkzsDwvradjq codes; unclassified (1 source)Acquired absence of other specified parts of digestive tract; Translations: [ACQ ABSENCE OTH PART DIGESTV TRACT]Onset: 40-73-4278Xudnjafu Unclassified (1 source)LOW BACK PAIN, UNSPECIFIED; Translations: [LOW BACK PAIN, UNSPECIFIED] Onset: 93-66-8922Sbdwlaqirred (1 source)Other pericardial effusion (noninflammatory); Translations: [Other pericardial effusion (noninflammatory)]Onset: 03-29-2024 Results Test NameValueInterpretationReference RangeFacilityC Fungalon 06-14-2025 Fungal Final No growth at 4 weeks.[place] HospitalComment on above: Performed By: #### FC #### [facility] [address], [place] [address]Ofriit-Mums 38-39-9370Xsumcq-[id number] JuleeSarahpollo Oneal 1935 F Date Provider Department Center 06/04/2025 CHILANGO ZAMORA Family History Problem Relation Age of Onset Lung cancer Mother's Sister Family Status - Relation Status Age at Mother Father Brother Mother's Sister Level of Service:[address] [place] OFFICE/OUTPATIENT ESTABLISHED MOD MDM 30 MIN Reason for Visit and Comments: Atrial Fibrillation [80] - Had EKG and labs a few weeks ago. Denies bleeding on Xarelto. Sinus pause [Other] Congestive Heart Failure [127] - Had echo in February 2025. Pulmonary Hypertension [818] Hyperlipidemia [182] Hypertension [870534] - She said Dr. Austin started her on hydralazine recently because her BP's were running high. Pacemaker Check [337] - Device was interrogated in the office 2 weeks ago.Normal [facility] CenterOCT OPTIC NERVE OUon 14-30-8474OHN OPTIC NERVE OUSee [facility] HospitalOphthalmic OCT panelon 97-77-9982Ftn noteORDEROUTOSU [facility] Medical CenterRadiology Study observation (narrative)[facility] CenterOperative Reporton 05-17-2025 Operative ReportIndication for Surgery Right [...] signed by Bruce Vicente MD 05/17/25 16:03 [facility]36on created a document. Please print and send to them. Thanks!Normal [facility]36Hi Natacha. You saw this patient in December 2024, and she's due back next month for 6 mo follow up. [facility] is requesting STAT clearance for thumb nail debridement and laceration repair under local and MAC anesthesia. She is on Xarelto 20mg daily according to last office note. She had CXR, labs, and EKG this morning at [facility]. Results are scanned into social media specialist for your review. Please advise. Thanks so much![facility] Documentationon [id number] Karen Gifford 1935 F Date Provider Department Center 05/15/2025 CHILANGO ZAMORA CARD [facility] Family History Problem Relation Age of Onset Lung cancer Mother's Sister Family Status - Relation Status Age at Mother Father Brother Mother's SisterNoalURegional Medical CenterOrders Onlyon 05-15-2025 Orders [id number] Karen Gifford 1935 F Provider Department Center 05/15/2025 JJ ELENA [facility] CARD [facility] Family History Problem Relation Age of Onset Lung cancer Mother's Sister Family Status - Relation Status Age at Mother Father Brother Mother's SisterTogus VA Medical CenterProgress Note-Nurseon 58-73-6508Hsdnxnja Note-NurseLEFT MESSAGE WITH PATIENT. RN WILL CALL BACK AROUND 3 PM FOR PSS INTERVIEW. Electronically signed by Daija Dhillon 05/15/25 11:40 EDT PSS PHONE CALL COMPLETED WITH PATIENT. Electronically signed by Daija Dhillon 05/16/25 10:13 EDTNoKettering Health [facility]36on 81-91-181681ZznlwhoDENISE Catherine MA Please let her know her ECHO looks good. She has some mild regurgitation or leaky mitral and aortic valves. Nothing to do but monitor, follow-up ECHO in 1 year. It showed normal pumping function. No evidence of an effusion or fluid collected around the heart. Advised patient of Natacha Berry findings. Patient verbalized understanding and agreed with plan of care.[facility] VA Medical CenterCT CHEST WO IV CONTRASTon 52-25-8177OP CHEST WO IV CONTRASTCT CHEST WO IV [...] advised. Electronically signed: Donato Calero 8Invalid Interpretation CodeUnMercy Health St. Joseph Warren HospitalOffice Visiton 38-51-8969Sybadk-up [id number] Karen Gifford 1935 F Date Provider Department Center 01/30/2025 [id number]-DIDZFABIOLA NUNEZ [facility] PULM Comprehensiv Family History Problem Relation Age of Onset Lung cancer Mother's Sister Family Status - Relation Status Age at Mother Father Brother Mother's Sister Level of Service:03213 [place] OFFICE/OUTPATIENT ESTABLISHED LOW MDM 20 MIN (GC) Reason for Visit and Comments: Lung Nodule [519] Pleural Effusion [Other]NormalUnMercy Health St. Joseph Warren HospitalOffice Visiton 86-18-3727Soobqo-up [id number] Karen Gifford 1935 F Date Provider Department Center 12/13/2024 CHILANGO ZAMORA MATT [facility] Family History Problem Relation Age of Onset Lung cancer Mother's Sister Family Status - Relation Status Age at Mother Father Brother Mother's Sister Level of Service:99466 [place] OFFICE/OUTPATIENT ESTABLISHED MOD MDM 30 MIN Reason for Visit and Comments: Atrial Fibrillation [80] Hypertension [275132]NormalUnMercy Health St. Joseph Warren HospitalHVF 24-2 STANDARD - OUon 73-36-7940UWJ 24-2 STANDARD - OUSee [facility] HospitalPerimetry studyon 00-75-2220Nhr noteRADIOLOGYOSSamaritan HospitalRadiology Study observation (narrative)[facility] Office Visiton 01-99-0107Cclowq-up [id number] Karen Gifford 1935 F Provider Department Center 06/26/2024 JJ ELENA MATT [facility] Family History Problem Relation Age of Onset Lung cancer Mother's Sister Family Status - Relation Status Age at Mother's Sister Level of Service:90648 [place] OFFICE/OUTPATIENT ESTABLISHED LOW MDM 20 MINNoal [facility] CenterOCT OPTIC NERVE OUon 17-53-5869JGG OPTIC NERVE OUSee [facility] HospitalOphthalmic OCT panelon 94-12-4185Zuh noteRADIOLOGYOSSamaritan HospitalRadiology Study observation (narrative)[facility] CenterCA 125on 87-25-5064Pkcyfq Ag 125 Qn68 [arb'U]/mLHigh0 - 35 U/mLProMedica Health SystemComment on above: The method used for this test is [place] DXI chemiluminescent immunoassay. Values obtained by different assay methods cannot be used interchangeably. Cancer Ag 125 Qnon 70-52-0749Ngcuwkhyxfldyh and review of laboratory results AbnormalProMarietta Osteopathic ClinicProOhio State East Hospital SystemCA [address] U/mLHigh0-35 [facility] HospitalComselect [facility] on above:Result Comment: The method used for this test is [place] DXI chemiluminescent immunoassay. Values obtained by different assay methods cannot be used interchangeably.Performed By: #### 65740-4 #### [facility] ([id number]) [address] [place] [address], [address] [place], [place] [address]BB PELVISon 92-29-2210[place] [address] Ultrasound Report Signed Patient: KAREN GIFFORD MR#: [id number] : 1935 Acct:[id number] Age/Sex: 88 / F ADM Date: 02/27/24 Loc: [facility] Attending Dr: Lan Hennessy D.O. Ordering Physician: Lan Hennessy D.O. Date of Service: 02/27/24 Procedure(s): US pelvis Accession Number(s): [id number] cc: Lan Hennessy D.O.; Vincenzo Austin M.D. [address] [address] Patient Name: KAREN GIFFORD MRN: [id number] date: 1935 Sex: F Assigned Patient Location: [facility] Current Patient Location: [facility] Accession/Order Number: [id number] Exam Date: 02/27/2024 10:40 Report Date: 02/27/2024 [...] Signed By: 02/27/24 1142 DD/ 1140 TD/TT: Department Editor:TBHRadiology, Radiologist, - 02/27/2024 [place] [address] Ultrasound Report Signed Patient: KAREN GIFFORD MR#: [id number] : 1935 Acct:[id number] Age/Sex: 88 / F ADM Date: 02/27/24 Loc: [facility] Attending Dr: Lan Hennessy D.O. Ordering Physician: Lan Hennessy D.O. Date of Service: 02/27/24 Procedure(s): US pelvis Accession Number(s): [id number] cc: Lan Hennessy D.O.; Vincenzo Austin M.D. [facility] [place] [id number] Patient Name: KAREN GIFFORD MRN: [id number] date: 1935 Sex: F Assigned Patient Location: [facility] Current Patient Location: [facility] Accession/Order Number: [id number] Exam Date: 02/27/2024 10:40 Report Date: 02/27/2024 [...] Signed By: 02/27/24 1142 DD/ 1140 TD/TT: Department Editor: [facility] HealthcareRadiology Study observation (narrative)[facility] HealthcareUS PELVIS Ordered By: Radiologist Radiology on 62-14-9145X[facility] Work Phone: Perimetry studyon 02-87-4187Yuc noteRADIOLOGYOSU Adena Regional Medical CenterRadiology Study observation (narrative)[facility] CenterEC 12 leadon 09-27-1867Bjipgx RateOhioHealthP AxisOhioHealthP-R Interval OhioHealthQ-T IntervalOhioHealthQ-T Interval (corrected)OhioHealthQRS Duration OhioHealthQTC Calculation (Bezet)OhioHealthR AxisOhioHealthT AxisOhioHealth Ventricular RateOhioHealthOhioHealthOphthalmic OCT panelon 85-40-6901Rem note RADIOLOGYOSU Adena Regional Medical CenterRadiology Study observation (narrative)[facility] Medical CenterYAG LASER-OSon 62-77-8928Hsq noteOSU Adena Regional Medical Center OSSamaritan HospitalBasic Metabolic Profon 44-26-9557Qajdz gap [Moles/Vol]9 mmol/LNormal9-17Henry County HospitalComment on above:Performed By: #### BMP, BNP #### [facility] [address] [place] [address] [place] [address] Clip On Sunglasses Inspector: Jay Peter MDBUN/CRE Rifwi52Wnvrhz9-39Uoxtd [facility] Comment on above:Performed By: #### BMP, BNP #### [facility] [address] [place] [address] Clip On Sunglasses Inspector: TALISHA Edwardsalcium [Mass/Vol]9.0 mg/dLNormal8.6-10.4Henry County HospitalComment on above:Performed By: #### BMP, BNP #### [facility] [address] [place] [address] Clip On Sunglasses Inspector: TALISHA Edwardshloride [Moles/Vol]96 mmol/FRru96-674CseppHenry County HospitalComment on above:Performed By: #### BMP, BNP #### [address] [place], [place] [address] Clip On Sunglasses Inspector: TALISHA EdwardsO2 [Moles/Vol]28 mmol/OEqjdjb47-19KjdbrHenry County HospitalComment on above:Performed By: #### BMP, BNP #### [facility] [address] [place] [address] Clip On Sunglasses Inspector: TALISHA Edwardsreatinine [Mass/Vol]0.9 mg/dLNormal0.5-0.9Henry County HospitalComment on above:Performed By: #### BMP, BNP #### [address] [place] [address] Clip On Sunglasses Inspector: Jay Peter MDGFR/1.73 sq M.predicted among non-blacks MDRD (S/P/Bld) [Vol rate/Area]mL/min/{1.73_m2}Normal>60Henry County HospitalComment on above:Result Comment: These results are [...] tubular secretion.Performed By: #### BMP, BNP #### [facility] [address] [place] [address] [place] [address] Clip On Sunglasses Inspector: Jay Peter MDGlucose [Mass/Vol]162 mg/dXNlwd68-83UppwhThe Bellevue HospitalComment on above:Performed By: #### BMP, BNP #### [address] [place] [address] Clip On Sunglasses Inspector: IGLESIA Edwardsotassium [Moles/Vol]4.3 mmol/LNormal3.7-5.3[facility] Memorial HospitalComment on above:Performed By: #### BMP, BNP #### [address] [place], [place] [id number] Clip On Sunglasses Inspector: STEVEN Edwardsodium [Moles/Vol]133 mmol/UWnp589-274BmfipHenry County HospitalComment on above:Performed By: #### BMP, BNP #### [address] [place] [address] Clip On Sunglasses Inspector: Jay Peter MDUrea nitrogen [Mass/Vol]9 mg/dLNormal8-23Henry County HospitalComment on above:Performed By: #### BMP, BNP #### [address] [place], [place] [id number] Clip On Sunglasses Inspector: Jay Peter MDBrain Natri. Peptideon 56-61-6266Ayokxpmwqri peptide B (Bld) [Mass/Vol]1518 pg/mLHigh<300MerMiddlesex HospitalComment on above:Result Comment: An age-independent cutoff point of 300 pg/ml has a 98% negative predictive value excluding acute heart failure.Performed By: #### BMP, BNP #### [address] [place] [id number] Clip On Sunglasses Inspector: IGLESIA EdwardsROF CHEM 8 (BAS METB)on 41-55-7751Qkxlb gap [Moles/Vol]10.1 mmol/LNormalTrihealth Bethesda Butler HospitalComment on above:Performed By: #### LIPID, T7, CMP, TSH #### [facility] [address] [place] [address] Dr. Jorge GlaserCalcium [Mass/Vol]9.1 mg/dLNormal8.5-10.1[facility] Comment on above:Performed By: #### LIPID, T7, CMP, TSH #### [facility] [address] [place] [address] Dr. Jorge GlaserChloride [Moles/Vol]98 mmol/XSjaazn32-574Yed [facility] Comment on above:Performed By: #### LIPID, T7, CMP, TSH #### [facility] [address] [address] [address] Jorge GlaserCO2 [Moles/Vol]32.1 mmol/LCritically high21.0-32.0The [facility] - YoungstownComment on above:Performed By: #### LIPID, T7, CMP, TSH #### [facility] [address] [address] [address] Jorge GlaserCreatinine [Mass/Vol]0.93 mg/dLNormal0.55-1.02The [facility] - YoungstownComment on above:Performed By: #### LIPID, T7, CMP, TSH #### [facility] [address] [place] [address] [address] Patel ChangEGFR-AF LIBERIAN>60Normal>=60The [facility] - YoungstownComment on above:Performed By: #### LIPID, T7, CMP, TSH #### [facility] [address] [place] [address] Dr. Jorge WuGFR-NON AF VHXUKZVT00 mL/min/1.72e2Offxxnqfqr low>=60The [facility] YoungstownComment on above:Performed By: #### LIPID, T7, CMP, TSH #### [facility] [address] [place] [address] Dr. Jorge GlaserGlucose [Mass/Vol]103 mg/iJAqwllc27-851Liq [facility] Comment on above:Performed By: #### LIPID, T7, CMP, TSH #### [facility] [address] [place] [address] Dr. Jorge GlaserPotassium [Moles/Vol]4.2 mmol/LNormal3.5-5.1The [facility] Comment on above:Performed By: #### LIPID, T7, CMP, TSH #### [facility] [address] [place] [address] Dr. Jorge GlaserSodium [Moles/Vol]136 mmol/FMvvcnh921-704Jpk [facility] Comment on above:Performed By: #### LIPID, T7, CMP, TSH #### [facility] [address] [place] [address] Dr. Jorge Robles nitrogen [Mass/Vol]16.0 mg/dLNormal7.0-18.0The [facility] YoungstownComment on above:Performed By: #### LIPID, T7, CMP, TSH #### [facility] [address] [place] [address] Dr. Jorge Robles nitrogen/Creatinine [Mass ratio]17.2 mg/mgNormalThe [facility] YoungstownComment on above:Performed By: #### LIPID, T7, CMP, TSH #### [facility] [address] [place] [address] Dr. Jorge Cabrales 88-61-3411Myysufvtnye peptide B (Bld) [Mass/Vol]379.0 pg/mL Normal<=1,800.0The [facility] YoungstownComment on above:Performed By: #### LIPID, T7, CMP, TSH #### [facility] [address] [place] [address] Dr. Jorge Jacinto AUTO DIFFon 90-68-4275UWWS #0.1 103/ulNormal0.0-0.1Trihealth Bethesda Butler HospitalComment on above:Performed By: #### CBC #### [facility] [address] [place] [address] Dr. Jorge Yisophils/100 WBC (Bld)1.3 %Normal0.2-2.0The [facility] Comment on above:Performed By: #### CBC #### [facility] [address] [place] [address] Dr. Jorge Mary #0.2 103/ulNormal0.0-0.7The [facility] - YoungstownComment on above: Performed By: #### CBC #### [facility] [address] [place] [address] Dr. Jorge Wuosinophils/100 WBC (Bld)3.1 %Normal0.9-7.0The [facility] Comment on above:Performed By: #### CBC #### [facility] [address] [place] [address] Dr. Jorge Wurythrocyte distribution width (RBC) [Ratio]14.4 %Zotukz96.0-15.0 The [facility] Community Hospitalment on above:Performed By: #### CBC #### [facility] [address] [place] [address] Dr. Jorge GlaserHematocrit (Bld) [Volume fraction]36.1 %Ovrihl80.0-48.0The [facility] YoungstownComment on above:Performed By: #### CBC #### [facility] [address] [place] [address] Dr. Jorge GlaserHemoglobin (Bld) [Mass/Vol]11.5 g/dLCritically low12.0-16.0The [facility] Hospitalment on above:Performed By: #### CBC #### [facility] [address] [place] [address] Dr. Jorge Augustine #0.05 10e3/ulCritically high0.00-0.03The [facility] Comment on above:Performed By: #### CBC #### [facility] [address] [place] [address] Dr. Jorge Augustine %0.6 %Critically high0.0-0.5The [facility] Hospitalment on above:Performed By: #### CBC #### [facility] [address] [place] [address] Dr. Jorge JonesH #1.7 103/ulNormal1.2-3.8The [facility] YoungstownComment on above:Performed By: #### CBC #### [facility] [address] [place] [address] Dr. Jorge Joneshocytes/100 WBC (Bld)21.2 %Tqlebm32.5-60.0The [facility] YoungstownComment on above:Performed By: #### CBC #### [facility] [address] [place] [address] Dr. Jorge PinedoUAL DIFF REQNONormalThe [facility] YoungstownComment on above: Performed By: #### CBC #### [facility] [address] [place] [address] [address] Jorge Cox (RBC) [Entitic mass]27.3 tmCgrqvy05.7-34.0The [facility] YoungstownComment on above:Performed By: #### CBC #### [facility] [address] [place] [address] Dr. Jorge Cox (RBC) [Mass/Vol]31.9 g/fSHsatuu01.9-35.2The [facility]emont HospitalComment on above:Performed By: #### CBC #### [facility] [address] [place] [address] Dr. Jorge Cox (RBC) [Entitic vol]85.5 tYNessbn71.0-99.0The [facility] YoungstownComment on above:Performed By: #### CBC #### [facility] [address] [place] [address] Dr. Jorge Noland #0.8 103/ulNormal0.3-0.8The [facility] YoungstownComment on above:Performed By: #### CBC #### [facility] [address] [place] [address] Dr. Jorge Posadaocytes/100 WBC (Bld)10.5 %Normal1.7-12.0The [facility] Comment on above:Performed By: #### CBC #### [facility] [address] [place] [address] Dr. Jorge Vincent #4.9 103/ulNormal1.4-6.5The [facility] YoungstownComment on above:Performed By: #### CBC #### [facility] [address] [place] [address] Dr. Jorge Francoutrophils/100 WBC (Bld)63.3 %Dnjerl65.0-75.0The [facility] YoungstownComment on above:Performed By: #### CBC #### [facility] [address] [place] [address] Dr. Jorge Sandhulet mean volume (Bld) [Entitic vol]8.7 fLCritically low 9.5-13.5The [facility] YoungstownComment on above:Performed By: #### CBC #### [facility] [address] [place] [address] Dr. Jorge GlaserPLT226 103/wxYdumwh285-354Xcc [facility] YoungstownComment on above: Performed By: #### CBC #### [facility] [address] [place] [address] Dr. Jorge GlaserRBC4.22 106/ulNormal4.20-5.40The [facility] YoungstownComment on above:Performed By: #### CBC #### [facility] [address] [place] [address] Dr. Jorge GlaserWBC7.8 103/ulNormal4.0-11.0The [facility] YoungstownComment on above: Performed By: #### CBC #### [facility] [address] [place] [address] Dr. Jorge Delgado THYROXINE INDEX T7on 12-31-5291MFR4.01Kiuibg4.30-4.50The [facility] YoungstownComment on above:Performed By: #### LIPID, T7, CMP, TSH #### [facility] [address] [place] [address] Dr. Jorge GlaserT3U31.0 %Eheolb62.0-39.0The [facility] YoungstownComment on above: Performed By: #### LIPID, T7, CMP, TSH #### [facility] [address] [place] [address] Dr. Jorge GlaserT4 [Mass/Vol]7.00 ug/dLNormal4.80-13.90The [facility] Comment on above:Performed By: #### LIPID, T7, CMP, TSH #### [facility] [address] [place] [address] Dr. Jorge Kwok 14(COMP METB)on 85-36-6316Vrdpueh [Mass/Vol]3.5 g/dLNormal 3.4-5.0The [facility] YoungstownComment on above:Performed By: #### LIPID, T7, CMP, TSH #### [facility] [address] [address] [address] Jorge GlaserAlbumin/Globulin [Mass ratio]0.9 {ratio}NormalThe [facility] Hospitalment on above:Performed By: #### LIPID, T7, CMP, TSH #### [facility] [address] [address] [address] Jorge DanielsP [Catalytic activity/Vol]56 U/HUowyge79-533Dmo [facility] YoungstownComment on above:Performed By: #### LIPID, T7, CMP, TSH #### [facility] [address] [address] [address] Jorge Correia [Catalytic activity/Vol]28 U/QOrkqsm43-97Fzr [facility] YoungstownComment on above:Performed By: #### LIPID, T7, CMP, TSH #### [facility] [address] [place] [address] Dr. Jorge Schraderon gap [Moles/Vol]10.2 mmol/LNormalThe [facility] Comment on above:Performed By: #### LIPID, T7, CMP, TSH #### [facility] [address] [place] [address] Dr. Jorge GlaserAST [Catalytic activity/Vol]20 U/FXlgoge54-28Zmx [facility] YoungstownComment on above:Performed By: #### LIPID, T7, CMP, TSH #### [facility] [address] [address] [address] Jorge GlaserBilirubin [Mass/Vol]0.4 mg/dLNormal0.2-1.0The [facility] Comment on above:Performed By: #### LIPID, T7, CMP, TSH #### [facility] [address] [place] [address] Dr. Jorge GlaserCalcium [Mass/Vol]9.8 mg/dLNormal8.5-10.1The [facility] Comment on above:Performed By: #### LIPID, T7, CMP, TSH #### [facility] [address] [address] [address] Jorge GlaserChloride [Moles/Vol]93 mmol/LCritically eng63-587Ctz [facility] Hospitalment on above:Performed By: #### LIPID, T7, CMP, TSH #### [facility] [address] [address] [address] Jorge GlaserCO2 [Moles/Vol]34.5 mmol/LCritically high21.0-32.0The [facility] YoungstownComment on above:Performed By: #### LIPID, T7, CMP, TSH #### [facility] [address] [place] [address] Dr. Jorge GlaserCreatinine [Mass/Vol]1.01 mg/dLNormal0.55-1.02The [facility] Hospitalment on above:Performed By: #### LIPID, T7, CMP, TSH #### [facility] [address] [place] [address] Dr. Jorge WuGFR-AF LIBERIAN>60Normal>=60The [facility] YoungstownComment on above:Performed By: #### LIPID, T7, CMP, TSH #### [facility] [address] [place] [address] Dr. Jorge WuGFR-NON AF MNBRXHBM60 mL/min/1.08o1Ajlhqoeasq low>=60The [facility]stownComment on above:Performed By: #### LIPID, T7, CMP, TSH #### [facility] [address] [place] [address] Dr. Jorge GlaserGlobulin (S) [Mass/Vol]4.0 g/dLNormalThe [facility] YoungstownComment on above:Performed By: #### LIPID, T7, CMP, TSH #### [facility] [address] [place] [address] Dr. Jorge GlaserGlucose [Mass/Vol]103 mg/xNUuekmi64-134Xsh [facility] Comment on above:Performed By: #### LIPID, T7, CMP, TSH #### [facility] [address] [place] [address] Dr. Jorge GlaserPotassium [Moles/Vol]3.7 mmol/LNormal3.5-5.1[facility] Comment on above:Performed By: #### LIPID, T7, CMP, TSH #### [facility] [address] [address] [address] Jorge GlaserProtein [Mass/Vol]7.5 g/dLNormal6.4-8.2The [facility] Comment on above:Performed By: #### LIPID, T7, CMP, TSH #### [facility] [address] [address] [address] Jorge GlaserSodium [Moles/Vol]134 mmol/LCritically sob440-549Qim [facility]stownComment on above:Performed By: #### LIPID, T7, CMP, TSH #### [facility] [address] [place] [address] Dr. Jorge GlaserUrea nitrogen [Mass/Vol]17.0 mg/dLNormal7.0-18.0The [facility] YoungstownComment on above:Performed By: #### LIPID, T7, CMP, TSH #### [facility] [address] [place] [address] Dr. Jorge Robles nitrogen/Creatinine [Mass ratio]16.8 mg/mgNoUpper Valley Medical CenterComment on above:Performed By: #### LIPID, T7, CMP, TSH #### [facility] [address] [place] [address] Dr. Jorge HarveyHoantonio 97-27-7928ZZX3.022 uIU/mLCritically high0.358-3.740[facility] HospitalComment on above:Performed By: #### LIPID, T7, CMP, TSH #### [facility] [address] [place] [address] Dr. Jorge GlaserXR CHEST 2 Von 52-62-4929MK CHEST 2 VEXAM: XR CHEST 2 V HISTORY: Palpitations COMPARISON: 06/09/20 TECHNIQUE: PA and lateral views of the chest. FINDINGS: The cardiomediastinal silhouette is normal. Stable left-sided cardiac pacemaker. No focal consolidation is identified. There is no pneumothorax. No pleural effusion is noted. The osseous structures are intact. IMPRESSION: No acute cardiopulmonary process. Electronically authenticated by: ABIMBOLA AMADOR Date: 2022-12-01 13:06[facility] HospitalFREE T3on 43-03-1912MMXV T32.51 pg/mlLNormal2.18-3.98The [facility]stownComment on above:Performed By: #### LIPID, T7, CMP, TSH #### [facility] [address] [place] [address] Dr. Jorge Graves4on 62-99-5083J5 [Mass/Vol]6.00 ug/dLNormal4.80-13.90The [facility]stownComment on above:Performed By: #### LIPID, T7, CMP, TSH #### [facility] [address] [place] [address] Dr. Jorge Christensen 40-53-9407FVX9.223 uIU/mLCritically high0.358-3.740The [facility] Hospitalment on above:Performed By: #### LIPID, T7, CMP, TSH #### [facility] [address] [place] [address] Dr. Jorge Cabrales 53-05-2514Lvyelujcvct peptide B (Bld) [Mass/Vol]479.0 pg/mL Normal<=1,800.0The [facility]stownComment on above:Performed By: #### LIPID, T7, CMP, TSH #### [facility] [address] [place] [address] Dr. Jorge Jacinto AUTO DIFFon 87-28-1860AEYW #0.1 103/ulNormal0.0-0.1The [facility] YoungstownComment on above:Performed By: #### CBC #### [facility] [address] [place] [address] Dr. Jorge Yisophils/100 WBC (Bld)0.8 %Normal0.2-2.0The [facility] Comment on above:Performed By: #### CBC #### [facility] [address] [place] [address] Dr. Jorge Mary #0.1 103/ulNormal0.0-0.7The [facility] YoungstownComment on above: Performed By: #### CBC #### [facility] [address] [address] [address] Jorge Wuosinophils/100 WBC (Bld)0.8 %Critically low0.9-7.0The [facility] Hospitalment on above:Performed By: #### CBC #### [facility] [address] [address] [address] Jorge Wurythrocyte distribution width (RBC) [Ratio]13.9 %Ttfygy54.0-15.0 The [facility] YoungstownComment on above:Performed By: #### CBC #### [facility] [address] [place] [address] Dr. Jorge GlaserHematocrit (Bld) [Volume fraction]37.7 %Abwrht98.0-48.0The [facility] Hospitalment on above:Performed By: #### CBC #### [facility] Laboratory [address] [place] [address] Dr. Jorge GlaserHemoglobin (Bld) [Mass/Vol]12.2 g/jJJqdhdc74.0-16.0The [facility] Hospitalment on above:Performed By: #### CBC #### [facility] Laboratory [address] [place] [address] Dr. Jorge Augustine #0.14 10e3/ulCritically high0.00-0.03The [facility] Comment on above:Performed By: #### CBC #### [facility] Laboratory [address] [place] [address] Dr. Jorge Augustine %1.1 %Critically high0.0-0.5The [facility]ment on above:Performed By: #### CBC #### [facility] Laboratory [address] [place] [address] Dr. Jorge JonesH #1.6 103/ulNormal1.2-3.8The [facility]ment on above:Performed By: #### CBC #### [facility] Laboratory [address] [place] [address] Dr. Jorge Peralesmphocytes/100 WBC (Bld)11.8 %Critically low20.5-60.0The [facility] HospitalComment on above:Performed By: #### CBC #### [facility] Laboratory [address] [address] [address] Jorge Thomas DIFF REQNONormalThe [facility]stownComment on above: Performed By: #### CBC #### [facility] Laboratory [address] [place] [address] Dr. Jorge Cox (RBC) [Entitic mass]28.2 iyZgrfjl05.7-34.0The [facility]Comment on above:Performed By: #### CBC #### [facility] Laboratory [address] [place] [address] Dr. Jorge Cox (RBC) [Mass/Vol]32.4 g/rVZujket16.9-35.2The [facility]Comment on above:Performed By: #### CBC #### [facility] Laboratory [address] [place] [address] Dr. Jorge Cox (RBC) [Entitic vol]87.3 lRQasiop72.0-99.0The [facility]stownComment on above:Performed By: #### CBC #### [facility] Laboratory [address] [place] [address] Dr. Jorge Noland #0.8 103/ulNormal0.3-0.8The [facility]stownComment on above:Performed By: #### CBC #### [facility] Laboratory [address] [place] [address] Dr. Jorge Posadaocytes/100 WBC (Bld)5.9 %Normal1.7-12.0[facility] Comment on above:Performed By: #### CBC #### [facility] Laboratory [address] [place] [address] Dr. Jorge Vincent #10.4 103/ulCritically high1.4-6.5The [facility] Comment on above:Performed By: #### CBC #### [facility] Laboratory [address] [place] [address] Dr. Jorge Francoutrophils/100 WBC (Bld)79.6 %Critically high43.0-75.0The [facility]stownComment on above:Performed By: #### CBC #### [facility] Laboratory [address] [address] [address] Jorge GlaserPlatelet mean volume (Bld) [Entitic vol]9.0 fLCritically low 9.5-13.5The [facility]stownComment on above:Performed By: #### CBC #### [facility] Laboratory [address] [address] [address] Jorge GlaserPLT216 103/vnNsqvda277-952Ncm [facility]stownComment on above: Performed By: #### CBC #### [facility] Laboratory [address] [address] [address] Jorge GlaserRBC4.32 106/ulNormal4.20-5.40The [facility]stownComment on above:Performed By: #### CBC #### [facility] Laboratory [address] [address] [address] Jorge GlaserWBC13.1 103/ulCritically high4.0-11.0The [facility]stownComment on above:Performed By: #### CBC #### [facility] Laboratory [address] [place] [address] Dr. Jorge Turner M/2D COMPLETEon [id number] M/2D COMPLETE Patient: KAREN GIFFORD Exam Date: 11/04/2022 : 1935 Gender:F Ordering : CHILANGO YOUSIF [facility] Admission #: [id number] Family : Order #: [id number] CLICK HERE TO VIEW EXAM ECHOCARDIOGRAM REPORT [...] Area (VTI): 2.20 cm2, 2.20 cm2 Deceleration Juab: 2.65 m/s2 Pressure Half-Time: 481.67 ms Peak [...] by: Ej Lopez M.D. on 11/04/2022 at 22:09Martin [facility] HospitalPROF CHEM 8 (BAS METB)on [id number] gap [Moles/Vol]10.6 mmol/L NormalThe [facility] YoungstownComment on above:Performed By: #### LIPID, T7, CMP, TSH #### [facility] Laboratory [address] [place] [address] Dr. Jorge GlaserCalcium [Mass/Vol]9.5 mg/dLNormal8.5-10.1The [facility] Comment on above:Performed By: #### LIPID, T7, CMP, TSH #### [facility] Laboratory [address] [address] [address] Jorge GlaserChloride [Moles/Vol]97 mmol/LCritically qbq82-554Wjh [facility]stownComment on above:Performed By: #### LIPID, T7, CMP, TSH #### [facility] Laboratory [address] [place] [address] Dr. Jorge GlaserCO2 [Moles/Vol]32.3 mmol/LCritically high21.0-32.0The [facility]stownComment on above:Performed By: #### LIPID, T7, CMP, TSH #### [facility] Laboratory [address] [address] [address] Jorge GlaserCreatinine [Mass/Vol]0.79 mg/dLNormal0.55-1.02The [facility]stownComment on above:Performed By: #### LIPID, T7, CMP, TSH #### [facility] Laboratory [address] [address] [address] Jorge WuGFR-AF LIBERIAN>60Normal>=60The [facility] YoungstownComment on above:Performed By: #### LIPID, T7, CMP, TSH #### [facility] Laboratory [address] [address] [address] Jorge WuGFR-NON AF LIBERIAN>60Normal>=60The [facility]stownComment on above:Performed By: #### LIPID, T7, CMP, TSH #### [facility] Laboratory [address] [address] [address] Jorge GlaserGlucose [Mass/Vol]161 mg/dLCritically ulxq04-436Yeb [facility] Hospitalment on above:Performed By: #### LIPID, T7, CMP, TSH #### [facility] Laboratory [address] [address] [address] Jorge GlaserPotassium [Moles/Vol]3.9 mmol/LNormal3.5-5.1The [facility] Comment on above:Performed By: #### LIPID, T7, CMP, TSH #### [facility] Laboratory [address] [address] [address] Jorge GlaserSodium [Moles/Vol]136 mmol/IQrtktv044-403Apv [facility] Comment on above:Performed By: #### LIPID, T7, CMP, TSH #### [facility] Laboratory [address] [address] [address] Jorge GlaserUrea nitrogen [Mass/Vol]20.0 mg/dLCritically high7.0-18.0The [facility] HospitalComment on above:Performed By: #### LIPID, T7, CMP, TSH #### [facility] Laboratory [address] [address] [address] Jorge GlaserUrea nitrogen/Creatinine [Mass ratio]25.3 mg/mgNormalThe [facility]Comselect [facility] on above:Performed By: #### LIPID, T7, CMP, TSH #### [facility] Laboratory [address] [place] [address] Dr. Jorge Delgado T3on 27-06-1086TIFR T32.15 pg/mlLCritically low2.18-3.98The [facility]Com[facility] on above:Performed By: #### LIPID, T7, CMP, TSH #### [facility] Laboratory [address] [place] [address] Dr. Jorge GlaserPOTASSIUMon 35-55-8029Fiwbcztzt [Moles/Vol]3.5 mmol/LNormal 3.5-5.1The [facility]Com[facility] on above:Performed By: #### LIPID, T7, CMP, TSH #### [facility] Laboratory [address] [place] [address] Dr. Jorge GlaserT4on 23-17-6480Y3 [Mass/Vol]6.50 ug/dLNormal4.80-13.90The [facility] on above:Performed By: #### T4, TSH, FT3, K #### [facility] Laboratory [address] [place] [address] Dr. Jorge Christensen 96-36-4737NAI9.603 uIU/mLCritically high0.358-3.740The [facility] on above:Performed By: #### LIPID, T7, CMP, TSH #### [facility] Laboratory [address] [place] [address] Dr. Jorge GlaserOCC BLD IMMUNO SCREENon 62-32-4495MSVZGP BLOODNegativeNormal NEGATIVEThe [facility] on above:Performed By: #### OBSCRN #### [facility] Laboratory [address] [place] [address] Dr. Jorge TimC AUTO DIFFon 13-16-6082YNMK #0.1 103/ulNormal0.0-0.1The [facility]stownComment on above:Performed By: #### LIPID, T7, CMP, TSH #### [facility] Laboratory [address] [place] [address] Dr. Jorge GlaserBasophils/100 WBC (Bld)1.0 %Normal0.2-2.0The [facility] Comment on above:Performed By: #### LIPID, T7, CMP, TSH #### [facility] Laboratory [address] [place] [address] Dr. Jorge Mary #0.3 103/ulNormal0.0-0.7The [facility]stownComment on above: Performed By: #### LIPID, T7, CMP, TSH #### [facility] Laboratory [address] [place] [address] Dr. Jorge Wuosinophils/100 WBC (Bld)3.8 %Normal0.9-7.0The [facility] Comment on above:Performed By: #### LIPID, T7, CMP, TSH #### [facility] Laboratory [address] [place] [address] Dr. Jorge Wurythrocyte distribution width (RBC) [Ratio]13.4 %Skycxu65.0-15.0 The [facility]stownComment on above:Performed By: #### LIPID, T7, CMP, TSH #### [facility] Laboratory [address] [place] [address] Dr. Jorge GlaserHematocrit (Bld) [Volume fraction]39.0 %Qjkmcp27.0-48.0The [facility]stownComment on above:Performed By: #### LIPID, T7, CMP, TSH #### [facility] Laboratory [address] [place] [address] Dr. Jorge GlaserHemoglobin (Bld) [Mass/Vol]12.8 g/xOMgvagc32.0-16.0The [facility]stownComment on above:Performed By: #### LIPID, T7, CMP, TSH #### [facility] Laboratory [address] [place] [address] Dr. Jorge Augustine #0.10 10e3/ulCritically high0.00-0.03The [facility] Comment on above:Performed By: #### LIPID, T7, CMP, TSH #### [facility] Laboratory [address] [address] [address] Jorge Augustine %1.1 %Critically high0.0-0.5The [facility]stownComment on above:Performed By: #### LIPID, T7, CMP, TSH #### [facility] Laboratory [address] [address] [address] Jorge Ravi #2.3 103/ulNormal1.2-3.8The [facility]stownComment on above:Performed By: #### LIPID, T7, CMP, TSH #### [facility] Laboratory [address] [place] [address] Dr. Jorge Joneshocytes/100 WBC (Bld)26.9 %Idekiv40.5-60.0The [facility]stownComment on above:Performed By: #### LIPID, T7, CMP, TSH #### [facility] Laboratory [address] [place] [address] Dr. Jorge PinedoUAL DIFF REQNONormalThe [facility]stownComment on above: Performed By: #### LIPID, T7, CMP, TSH #### [facility] Laboratory [address] [place] [address] Dr. Jorge Cox (RBC) [Entitic mass]29.4 ohQegeip37.7-34.0The [facility]stownComment on above:Performed By: #### LIPID, T7, CMP, TSH #### [facility] Laboratory [address] [place] [address] Dr. Jorge Cox (RBC) [Mass/Vol]32.8 g/nJEgjxef62.9-35.2The [facility]stownComment on above:Performed By: #### LIPID, T7, CMP, TSH #### [facility] Laboratory [address] [place] [address] Dr. Jorge Cox (RBC) [Entitic vol]89.7 mXLssbfx31.0-99.0The [facility] Hospitalment on above:Performed By: #### LIPID, T7, CMP, TSH #### [facility] Laboratory [address] [address] [address] Jorge Noland #0.8 103/ulNormal0.3-0.8The [facility]stownComment on above:Performed By: #### LIPID, T7, CMP, TSH #### [facility] Laboratory [address] [place] [address] Dr. Jorge Posadaocytes/100 WBC (Bld)9.1 %Normal1.7-12.0The [facility] Comment on above:Performed By: #### LIPID, T7, CMP, TSH #### [facility] Laboratory [address] [place] [address] Dr. Jorge Vincent #5.1 103/ulNormal1.4-6.5The [facility]stownComment on above:Performed By: #### LIPID, T7, CMP, TSH #### [facility] Laboratory [address] [place] [address] Dr. Jorge Francoutrophils/100 WBC (Bld)58.1 %Vlxznz10.0-75.0The [facility]stownComment on above:Performed By: #### LIPID, T7, CMP, TSH #### [facility] Laboratory [address] [place] [address] Dr. Jorge Kinney mean volume (Bld) [Entitic vol]8.8 fLCritically low 9.5-13.5The [facility]ment on above:Performed By: #### LIPID, T7, CMP, TSH #### [facility] Laboratory [address] [place] [address] Dr. Jorge GlaserPLT158 103/evWrlgem815-515Uuf [facility]stownComment on above: Performed By: #### LIPID, T7, CMP, TSH #### [facility] Laboratory [address] [place] [address] Dr. Jorge GlaserRBC4.35 106/ulNormal4.20-5.40The [facility]stownComment on above:Performed By: #### LIPID, T7, CMP, TSH #### [facility] Laboratory [address] [address] [address] Jorge GlaserWBC8.7 103/ulNormal4.0-11.0The [facility]stownComment on above: Performed By: #### LIPID, T7, CMP, TSH #### [facility] Laboratory [address] [address] [address] Jorge Delgado THYROXINE INDEX T7on 48-15-6160QDW5.16Jjkmpw5.30-4.50The [facility]stownComment on above:Performed By: #### LIPID, T7, CMP, TSH #### [facility] Laboratory [address] [address] [address] Jorge GlaserT3U33.0 %Gdyacp56.0-39.0The [facility] YoungstownComment on above: Performed By: #### LIPID, T7, CMP, TSH #### [facility] Laboratory [address] [address] [address] Jorge GlaserT4 [Mass/Vol]6.50 ug/dLNormal4.80-13.90The [facility] Comment on above:Performed By: #### LIPID, T7, CMP, TSH #### [facility] Laboratory [address] [address] [address] Jorge GlaserGLYCOHEMOGLOBIN A1Con 12-73-5090LZE RECOMMENDATIONSEE BELOWNormal The [facility] YoungstownComment on above:Result Comment: ADA RECOMMENDED LIMIT 4.0 - 6.0 ADA THERAPEUTIC TARGET < 7.0 ACTION SUGGESTED > 7.0Performed By: #### A1C #### [facility] Laboratory [address] [place] [address] Dr. Jorge GlaserGlucose [Mass/Vol]137 mg/dLNormalThe [facility]stownComment on above:Performed By: #### A1C #### [facility] Laboratory [address] [place] [address] Dr. Jorge GlaserHbA1c (Bld) [Mass fraction]6.4 %Critically high4.5-6.2The [facility]stownComment on above:Performed By: #### A1C #### [facility] Laboratory [address] [address] [address] Jorge Au 55-40-7308Yuki [Mass/Vol]58.0 ug/dTCkupoo15.0-170.0The [facility]ment on above:Performed By: #### IRON #### [facility] Laboratory [address] [address] [address] Jorge Shepherd PROFILEon 29-00-9414OXAG-HDL RATIO NORMSEE BELOWMartin Memorial HospitalComment on above:Result Comment: 3.3 - 4.4 LOW RISK 4.4 - 7.1 AVERAGE RISK 7.1 - 11.0 MODERATE RISK >11.0 HIGH RISKPerformed By: #### LIPID, T7, CMP, TSH #### [facility] Laboratory [address] [place] [address] Dr. Jorge Begumesterol [Mass/Vol]128 mg/dLNormal<=200The [facility] Comment on above:Performed By: #### LIPID, T7, CMP, TSH #### [facility] Laboratory [address] [address] [address] Jorge Begumesterol in HDL [Mass/Vol]61 mg/dLCritically ngfw69-34Vjo [facility]Comselect [facility] on above:Performed By: #### LIPID, T7, CMP, TSH #### [facility] Laboratory [address] [address] [address] Jorge Begumesterol in LDL [Mass/Vol]49.0 mg/dLMartin Memorial HospitalComment on above:Performed By: #### LIPID, T7, CMP, TSH #### [facility] Laboratory [address] [address] [address] Jorge Todd.total/Cholesterol in HDL [Mass ratio]2.1 {ratio} NormalThe [facility] on above:Performed By: #### LIPID, T7, CMP, TSH #### [facility] Laboratory [address] [address] [address] Jorge Villalta NORMAL> or = 60 mg/dl - LOW CARDIOVASCULAR RISK <40 mg/dl - HIGH CARDIOVASCULAR RISKNoUpper Valley Medical CenterComment on above:Performed By: #### LIPID, T7, CMP, TSH #### [facility] Laboratory [address] [address] [address] Jorge GlaserLDL CALC NORMALSEE BELOWMartin Memorial HospitalComment on above:Result Comment: <100 mg/dl OPTIMAL 100 - 129 mg/dl NEAR OR ABOVE OPTIMAL 130 - 159 mg/dl BORDERLINE HIGH 160 - 189 mg/dl HIGH >190 mg/dl VERY HIGH Performed By: #### LIPID, T7, CMP, TSH #### [facility] Laboratory [address] [address] [address] Jorge GlaserTriglyceride [Mass/Vol]90 mg/dLNormal<=150The [facility] Comment on above:Performed By: #### LIPID, T7, CMP, TSH #### [facility] Laboratory [address] [address] [address] Jorge GlaserVLDL CALC18.0 mg/dLNoUpper Valley Medical CenterComment on above: Performed By: #### LIPID, T7, CMP, TSH #### [facility] Laboratory [address] [address] [address] Jorge GlaserPROKimmy 14(COMP METB)on 98-98-6431Uzluqet [Mass/Vol]3.5 g/dLNormal 3.4-5.0The [facility] on above:Performed By: #### LIPID, T7, CMP, TSH #### [facility] Laboratory [address] [address] [address] Jorge GlaserAlbumin/Globulin [Mass ratio]1.1 {ratio}NormalThe [facility]stownComselect [facility] on above:Performed By: #### LIPID, T7, CMP, TSH #### [facility] Laboratory [address] [address] [address] Jorge Benitez [Catalytic activity/Vol]42 U/LCritically peb26-181Mac [facility] on above:Performed By: #### LIPID, T7, CMP, TSH #### [facility] Laboratory [address] [address] [address] Jorge Correia [Catalytic activity/Vol]23 U/MZmjkzj44-69Jdn [facility]stownComment on above:Performed By: #### LIPID, T7, CMP, TSH #### [facility] Laboratory [address] [address] [address] Jorge GlaserAnion gap [Moles/Vol]10.0 mmol/LNormalTrihealth [facility] Comment on above:Performed By: #### LIPID, T7, CMP, TSH #### [facility] Laboratory [address] [address] [address] Jorge GlaserAST [Catalytic activity/Vol]21 U/VZybjao26-31SuvTrihealth Bethesda Butler HospitalComment on above:Performed By: #### LIPID, T7, CMP, TSH #### [facility] Laboratory [address] [place] [address] Dr. Jorge GlaserBilirubin [Mass/Vol]0.5 mg/dLNormal0.2-1.0[facility] Comment on above:Performed By: #### LIPID, T7, CMP, TSH #### [facility] Laboratory [address] [place] [address] Dr. Jorge GlaserCalcium [Mass/Vol]9.2 mg/dLNormal8.5-10.1[facility] Comment on above:Performed By: #### LIPID, T7, CMP, TSH #### [facility] Laboratory [address] [place] [address] Dr. Jorge GlaserChloride [Moles/Vol]99 mmol/IPjrsoj38-334RqvTrihealth Bethesda Butler Hospital Comment on above:Performed By: #### LIPID, T7, CMP, TSH #### [facility] Laboratory [address] [place] [address] Dr. Jorge GlaserCO2 [Moles/Vol]32.2 mmol/LCritically high21.0-32.0The [facility]stownComment on above:Performed By: #### LIPID, T7, CMP, TSH #### [facility] Laboratory [address] [place] [address] Dr. Jorge GlaserCreatinine [Mass/Vol]0.78 mg/dLNormal0.55-1.02The [facility]stownComment on above:Performed By: #### LIPID, T7, CMP, TSH #### [facility] Laboratory [address] [address] [address] Jorge WuGFR-AF LIBERIAN>60Normal>=60The [facility] Hospitalment on above:Performed By: #### LIPID, T7, CMP, TSH #### [facility] Laboratory [address] [address] [address] Jorge WuGFR-NON AF LIBERIAN>60Normal>=60The [facility]stownComment on above:Performed By: #### LIPID, T7, CMP, TSH #### [facility] Laboratory [address] [address] [address] Jorge GlaserGlobulin (S) [Mass/Vol]3.2 g/dLNormalThe [facility]stownComment on above:Performed By: #### LIPID, T7, CMP, TSH #### [facility] Laboratory [address] [place] [address] Dr. Jorge GlaserGlucose [Mass/Vol]100 mg/tKNlbstb38-899NrgTrihealth Bethesda [facility] Hospital Comment on above:Performed By: #### LIPID, T7, CMP, TSH #### [facility] Laboratory [address] [address] [address] Jorge GlaserPotassium [Moles/Vol]3.2 mmol/LCritically low3.5-5.1The [facility] Hospitalment on above:Performed By: #### LIPID, T7, CMP, TSH #### [facility] Laboratory [address] [address] [address] Jorge GlaserProtein [Mass/Vol]6.7 g/dLNormal6.4-8.2The [facility] Comment on above:Performed By: #### LIPID, T7, CMP, TSH #### [facility] Laboratory [address] [address] [address] Jorge GlaserSodium [Moles/Vol]138 mmol/CYfquqm917-730ItdTrihealth Bethesda [facility] Hospital Comment on above:Performed By: #### LIPID, T7, CMP, TSH #### [facility] Laboratory [address] [address] [address] Jorge GlaserUrea nitrogen [Mass/Vol]17.0 mg/dLNormal7.0-18.0The [facility]stownComment on above:Performed By: #### LIPID, T7, CMP, TSH #### [facility] Laboratory [address] [address] [address] Jorge Robles nitrogen/Creatinine [Mass ratio]21.8 mg/mgNoUpper Valley Medical CenterComment on above:Performed By: #### LIPID, T7, CMP, TSH #### [facility] Laboratory [address] [address] [address] Jorge Christensen 31-62-3709YRS6.483 uIU/mLCritically high0.358-3.740The [facility] - YoungstownComment on above:Performed By: #### LIPID, T7, CMP, TSH #### [facility] [address] [address] [address] Jorge GlaserXR DEXA BONE DENSITYon 16-20-7604OO DEXA BONE DENSITYEXAMINATION: XR DEXA BONE DENSITY, [...] Electronically authenticated by: KD DALY Date: 2022-08-27 16:23[facility] AUTO DIFFon 16-28-4730CEYU #0.1 103/ulNormal0.0-0.1The [facility] Hospitalment on above:Performed By: #### LIPID, T7, CMP, TSH #### [facility] [address] [address] [address] Jorge GlaserBasophils/100 WBC (Bld)0.5 %Normal0.2-2.0The [facility] Comment on above:Performed By: #### LIPID, T7, CMP, TSH #### [facility] [address] [place] [address] Dr. Jorge Mary #0.2 103/ulNormal0.0-0.7The [facility] YoungstownComment on above: Performed By: #### LIPID, T7, CMP, TSH #### [facility] [address] [place] [address] Dr. Jorge Wuosinophils/100 WBC (Bld)2.0 %Normal0.9-7.0The [facility] Comment on above:Performed By: #### LIPID, T7, CMP, TSH #### [facility] [address] [place] [address] Dr. Jorge Wurythrocyte distribution width (RBC) [Ratio]14.1 %Ficecv01.0-15.0 The [facility] YoungstownComment on above:Performed By: #### LIPID, T7, CMP, TSH #### [facility] [address] [place] [address] Dr. Jorge GlaserHematocrit (Bld) [Volume fraction]42.2 %Hxpdng16.0-48.0The [facility] - YoungstownComment on above:Performed By: #### LIPID, T7, CMP, TSH #### [facility] [address] [place] [address] Dr. Jorge GlaserHemoglobin (Bld) [Mass/Vol]14.2 g/nSUezzeu55.0-16.0The [facility] YoungstownComment on above:Performed By: #### LIPID, T7, CMP, TSH #### [facility] [address] [place] [address] Dr. Jorge Augustine #0.08 10e3/ulCritically high0.00-0.03The [facility] Comment on above:Performed By: #### LIPID, T7, CMP, TSH #### [facility] [address] [place] [address] Dr. Jorge Augustine %0.8 %Critically high0.0-0.5The [facility] - YoungstownComment on above:Performed By: #### LIPID, T7, CMP, TSH #### [facility] [address] [place] [address] Dr. Jorge aRvi #1.2 103/ulNormal1.2-3.8The [facility] - YoungstownComment on above:Performed By: #### LIPID, T7, CMP, TSH #### [facility] [address] [place] [address] Dr. Jorge Joneshocytes/100 WBC (Bld)11.9 %Critically low20.5-60.0The [facility] [place]stownComment on above:Performed By: #### LIPID, T7, CMP, TSH #### [facility] [address] [place] [address] Dr. Jorge Thomas DIFF REQNONormalThe [facility] - YoungstownComment on above: Performed By: #### LIPID, T7, CMP, TSH #### [facility] [address] [place] [address] Dr. Jorge Cox (RBC) [Entitic mass]30.8 ksEsxjzi03.7-34.0The [facility] Hospitalment on above:Performed By: #### LIPID, T7, CMP, TSH #### [facility] [address] [place] [address] Dr. Jorge Cox (RBC) [Mass/Vol]33.6 g/nLJfsmcu20.9-35.2The [facility] on above:Performed By: #### LIPID, T7, CMP, TSH #### [facility] [address] [place] [address] Dr. Jorge Cox (RBC) [Entitic vol]91.5 cCQxoqru10.0-99.0The [facility] on above:Performed By: #### LIPID, T7, CMP, TSH #### [facility] [address] [place] [address] Dr. Jorge Noland #0.5 103/ulNormal0.3-0.8The [facility] HospitalComment on above:Performed By: #### LIPID, T7, CMP, TSH #### [facility] [address] [address] [address] Jorge Posadaocytes/100 WBC (Bld)5.0 %Normal1.7-12.0[facility] Comment on above:Performed By: #### LIPID, T7, CMP, TSH #### [facility] [address] [place] [address] Dr. Jorge Vincent #8.3 103/ulCritically high1.4-6.5The [facility] Comment on above:Performed By: #### LIPID, T7, CMP, TSH #### [facility] [address] [place] [address] Dr. Jorge Francoutrophils/100 WBC (Bld)79.8 %Critically high43.0-75.0The [facility] - YoungstownComment on above:Performed By: #### LIPID, T7, CMP, TSH #### [facility] [address] [place] [address] Dr. Jorge Sandhulet mean volume (Bld) [Entitic vol]9.0 fLCritically low 9.5-13.5The [facility] - YoungstownComment on above:Performed By: #### LIPID, T7, CMP, TSH #### [facility] [address] [place] [address] Dr. Jorge GlaserPLT154 103/cwYyqdgq161-270Ikr [facility] - YoungstownComment on above: Performed By: #### LIPID, T7, CMP, TSH #### [facility] [address] [place] [address] Dr. Jorge GlaserRBC4.61 106/ulNormal4.20-5.40The [facility] - YoungstownComment on above:Performed By: #### LIPID, T7, CMP, TSH #### [facility] [address] [place] [address] Dr. Jorge GlaserWBC10.4 103/ulNormal4.0-11.0The [facility] - YoungstownComment on above:Performed By: #### LIPID, T7, CMP, TSH #### [facility] [address] [address] [address] Jorge GlaserPROF CHEM 8 (BAS METB)on 45-32-9306Fmadt gap [Moles/Vol]9.0 mmol/LNormalThe [facility] - YoungstownComment on above:Performed By: #### LIPID, T7, CMP, TSH #### [facility] [address] [place] [address] Dr. Jorge GlaserCalcium [Mass/Vol]10.0 mg/dLNormal8.5-10.1The [facility] Comment on above:Performed By: #### LIPID, T7, CMP, TSH #### [facility] [address] [place] [address] Dr. Jorge GlaserChloride [Moles/Vol]94 mmol/LCritically wbl96-008Pii [facility] - YoungstownComment on above:Performed By: #### LIPID, T7, CMP, TSH #### [facility] [address] [place] [address] Dr. Jorge GlaserCO2 [Moles/Vol]31.4 mmol/LKoiwiy07.0-32.0The [facility] Comment on above:Performed By: #### LIPID, T7, CMP, TSH #### [facility] [address] [place] [address] Dr. Jorge GlaserCreatinine [Mass/Vol]0.69 mg/dLNormal0.55-1.02The [facility] - YoungstownComment on above:Performed By: #### LIPID, T7, CMP, TSH #### [facility] [address] [place] [address] Dr. Jorge WuGFR-AF LIBERIAN>60Normal>=60The [facility] - YoungstownComment on above:Performed By: #### LIPID, T7, CMP, TSH #### [facility] [address] [place] [address] Dr. Jorge WuGFR-NON AF LIBERIAN>60Normal>=60The [facility] - YoungstownComment on above:Performed By: #### LIPID, T7, CMP, TSH #### [facility] [address] [place] [address] Dr. Yilan ChangGlucose [Mass/Vol]129 mg/dLCritically jwua15-029Xxp [facility] - YoungstownComment on above:Performed By: #### LIPID, T7, CMP, TSH #### [facility] [address] [address] [address] Jorge GlaserPotassium [Moles/Vol]3.4 mmol/LCritically low3.5-5.1The [facility] - YoungstownComment on above:Performed By: #### LIPID, T7, CMP, TSH #### [facility] [address] [address] [address] Jorge GlaserSodium [Moles/Vol]131 mmol/LCritically kby643-327Ymc [facility] - YoungstownComment on above:Performed By: #### LIPID, T7, CMP, TSH #### [facility] [address] [place] [address] Dr. Jorge GlaserUrea nitrogen [Mass/Vol]17.0 mg/dLNormal7.0-18.0The [facility] - YoungstownComment on above:Performed By: #### LIPID, T7, CMP, TSH #### [facility] [address] [place] [address] Dr. Jorge Robles nitrogen/Creatinine [Mass ratio]24.6 mg/mgNormalThe [facility] - YoungstownComment on above:Performed By: #### LIPID, T7, CMP, TSH #### [facility] [address] [place] [address] Dr. Jorge GlaserNM STRESS/REST MULTIon 40-81-3981OJ STRESS/REST MULTIPatient: KAREN GIFFORD Exam Date: 03/22/2022 : 1935 Gender:F Ordering : DR VINCENZO AUSTIN . 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 BATCH OR CONTINUOUS Order #: [id number] CLICK HERE TO VIEW EXAM RADIOLOGY REPORT [...] by: Jay Rachel MD on 03/23/2022 at 11:42[facility] Vital Signs Date TimeVital SignValuePerforming RmullbqkkQohbqvrc46-11-9835 09:29-0400Body .2 cmCorey Minoo DO Work Phone: [facility]opiosFreeman Heart InstituteGninjmrxuq84-46-0344 09:29-0400Body mass index (BMI) [Ratio]23.93 kg/l0Cvxkq Minoo DO Work Phone: [facility] HospitalJersvwpehn80-16-5734 09:29-0400Body slssly28.31 kgCorey Minoo DO Work Phone: [facility]iosFre[facility] InstituteJozbehrjhi53-63-2123 09:29-0400Diastolic blood zcihbaib14 mm[Hg]Lan Minoo DO Work Phone: [phone] Heart InstituteIuiaqhdpjb83-54-9738 09:29-0400Systolic blood mm[Hg]Lan Minoo DO Work Phone: [facility] HospitalGrpvqlwaij38-59-0303 11:17-0400Blood Pressure LocationMicLaurel Oaks Behavioral Health Center 609-5908Srsjro-ElvqrOhiohealth [facility] [place] 04-19-2024 11:17-0400Diastolic blood exdvsrso73 mm[Hg]Avtar JAYL 999-6961Jrrjpo-EuynjOhiohealth [facility] [place] 04-19-2024 11:17-0400Heart rate79 /minMichael NILL 191-0125Fqpcra-EngwhTwin City Hospital [facility] [place] 04-19-2024 11:17-0400Respiratory rate16 /minMichael NILL 220-5505Yinlbl-FpoeyTwin City Hospital [facility] [place] 04-19-2024 11:17-0400Systolic blood ahllygxq254 mm[Hg]Avtar TUCKER 684-2280Ebogxs-HbmajMercy Health [facility] 04-18-2024 10:04-0400Diastolic blood jejqwzxs73 mm[Hg]Wes Diaz MD Work Phone: [facility]09-04-2024 10:04-0400Heart rate 78 /minWes Diaz MD Work Phone: [facility]09-04-2024 10:04-0400 Respiratory rate16 /minWes iDaz MD Work Phone: [facility]09-04-2024 10:04-6950SeO9% (BldA) [Mass fraction]99 %Wes Diaz MD Work Phone: [facility]09-04-2024 10:04-0400Systolic blood jqgiysfk546 mm[Hg]Wes Diaz MD Work Phone: [facility]09-04-2024 09:54-0400Body fvpevh53.59 kgWes Diaz MD Work Phone: [facility]08-15-2024 13:57-0400Body noxqtt291.2 cmCody Jameson STILL OPERATOR BATCH OR CONTINUOUS Work Phone: 1(670) [phone]kepoa47-51-3481 13:57-0400Body mass index (BMI) [Ratio]21.61 kg/m2Cody Jameson STILL OPERATOR BATCH OR CONTINUOUS Work Phone: 1(278) [phone]avhud34-01-5999 13:57-0400Body gngsky15.6 kgCody Jameson STILL OPERATOR BATCH OR CONTINUOUS Work Phone: 1(776) [phone]zfwzn83-86-5546 13:57-0400Diastolic blood mm[Hg]Kiko Jameson STILL OPERATOR BATCH OR CONTINUOUS Work Phone: 1(548) [phone]bhpyf26-59-7795 13:57-0400Heart rate93 /minCody Jameson STILL OPERATOR BATCH OR CONTINUOUS Work Phone: 1(296) [phone]uegdg29-95-3446 13:57-0400Systolic blood pressure 114 mm[Hg]Kiko Jameson STILL OPERATOR BATCH OR CONTINUOUS Work Phone: 1(533) [phone]tirwf03-94-0876 13:37-0500Body yitkxg707.2 cm Jay Guerra MD Work Phone: 1(180) [phone]ptlry99-57-8620 13:37-0500Diastolic blood bzrxurnq74 mm[Hg]Jay Guerra MD Work Phone: 1(899) [phone]oixla37-30-2988 13:37-0500Heart rate77 /minDalejandro Guerra MD Work Phone: 1(225) [phone]ktgbh94-76-3526 13:37-0500Systolic blood pressure 90 mm[Hg]Jay Guerra MD Work Phone: [facility] Encounters Encounter DateEncounter TypeCare ProviderFacilityStart: 06-11-2025 End: 27-85-1950Xqnfmo flowsheetCorey Minoo DO Work Phone: [facility] OBGYNStart: 06-11-2025 End: 20-47-6444Nnjhxz flowsheetCorey Minoo DO Work Phone: [facility] OBGYNStart: 06-11-2025 End: 93-78-1875bzzzqrboolCZBJB FAZIONot AvailableStart: 06-11-2025 End: 20-82-4290Uwtdpy outpatient visit 15 minutesCorey Minoo DO Work Phone: [facility] OBGYNComment on above:Cyst of right ovary; Pelvic pain; Complex ovarian cystStart: 06-04-2025 End: 47-13-2082mfsvvyzofdZVRVWNGAvita Health System Galion Hospitaltart: 05-27-2025 End: 70-72-2003Xbxvab outpatient visit 25 minutesMark Axel Chacon MD Work Phone: [facility] InstituteComment on above:Primary open-angle glaucoma, bilateral, indeterminate stage (Primary Dx); Dry eye syndrome of bilateral lacrimal glands; Primary open-angle glaucoma, bilateral, moderate stageStart: 05-27-2025 ambulatorySELF SELFFacility:[facility] TEXAStart: 05-21-2025 End: 41-25-4824fqmgkohkboQEGNAshtabula General Hospitaltart: 58-11-8534kzbmheogikVRDVNWooster Community Hospitaltart: 05-17-2025 End: 40-15-8542fcbjzuarsrWecynjtSadie Austin MDFacility:Military Health Systemtart: 28-54-6986twjabhnxpiZMOBKTrumbull Regional Medical Centertart: 01-30-2025 End: 29-19-1756wnvulcylrrBRBNNRegency Hospital [facility] Start: 72-38-4335iijlrgeyegNXTVCleveland Clinictart: 12-13-2024 End: 91-86-4533toltudviioZPDUSTVSt. Mary's Medical Center, Ironton Campustart: 65-51-6854ctgmjljjysCZTBCleveland Clinictart: 12-04-2024 End: 05-82-9335jadufygynzIQFICleveland Clinictart: 11-21-2024 End: 24-05-8614Zaphph outpatient visit 25 minutesMark Axel Chacon MD Work Phone: [facility] InstituteComment on above:Primary open-angle glaucoma, bilateral, indeterminate stage (Primary Dx); Dry eye syndrome of bilateral lacrimal glandsStart: 44-61-1691xhzzqmkdgmENLPIRF M HOYFacility:[facility] TEXAStart: 06-26-2024 End: 16-68-7646bdyaxtmlwcKVAS [facility] Hospitaltart: 06-04-2024 End: 68-35-4915Mdvoea outpatient visit 15 minutesMark Axel Chacon MD Work Phone: [facility] [place] [facility] Ear InstituteComment on above:Primary open-angle glaucoma, bilateral, indeterminate stage (Primary Dx)Start: 55-56-4100jfdaewrpkxGFHWEYZ M HOYFacility:[facility] TEXAStart: 05-09-2024 End: 52-23-9206ijjkyrclpjUxyonau R NILLFacility:CD:[id number]: 04-20-2024 End: 25-63-4124PhoqfdApolinar RAZO Work Phone: [facility] Gynecology OncologyStart: 04-19-2024 End: 97-95-5479bchilyyfbxWgtjhfk R NILLFacility:[facility] of Livingtart: 04-19-2024 End: 84-78-4113Ebvaaoc encounter procedureMichael R NILL [phone]-EgkcpOhiohealth [facility] [place] Start: 04-18-2024 End: 12-24-7559gyvclmfxdmXURO C [facility] Hospital HospitalStart: 04-18-2024 End: 18-92-1162Nzkwjz outpatient new 60 minutesAdam Yoshi Diaz MD Work Phone: [facility] Gynecology OncologyComment on above:Cyst of right ovary (Primary Dx); Elevated cancer antigen 125 (CA 125)Start: 04-18-2024 End: 39-68-3253ddvwvwpbshLAUX C WALTERProMedica Scci Hospital Lima HospitalStart: 03-29-2024 End: 26-65-5509ezdugjnmieKHZGUVA [facility] AmbulatoryStart: 03-29-2024 End: 28-02-4499Eqiqsk outpatient visit 40 minutesCoelbert Barba STILL OPERATOR BATCH OR CONTINUOUS Work Phone: [facility] Vascular PhysiciansComment on above:Persistent atrial fibrillation (HCC) (Primary Dx); PAF (paroxysmal atrial fibrillation) (HCC); SSS (sick sinus syndrome) (HCC); Presence of cardiac pacemaker; Pericardial effusion; Pleural effusionStart: 03-29-2024 End: 47-93-4147ystzecaufgUCMIYGRNortheast Georgia Medical Center [facility] AmbulatoryStart: 03-27-2024 End: 03-16-6980Abplna OnlyCoelbert Barba STILL OPERATOR BATCH OR CONTINUOUS Work Phone: [facility] Vascular PhysiciansComment on above:PAF (paroxysmal atrial fibrillation) (HCC) (Primary Dx)Start: 03-08-2024 End: 66-02-5495Otklpszlz encounterWes Diaz MD Work Phone: [facility] Gynecology OncologyComment on above:Reschedule apptStart: 03-05-2024 End: 09-27-1306Lvitxtvmk encounterJessica Rocha RNProMedica Physicians Gynecology OncologyStart: 02-27-2024 End: 73-15-2589Ijvmroeic Result EncounterCorey Minoo DO Work Phone: [facility] External Department UnsolicitedStart: 02-27-2024 End: 42-82-6106Ecthwfpsr Result EncounterCorey Minoo DO Work Phone: [facility] External Department UnsolicitedStart: 02-02-2024 Orders OnlyJay Guerra MD Work Phone: [facility] Vascular PhysiciansComment on above:PAF (paroxysmal atrial fibrillation) (HCC) (Primary Dx); Presence of cardiac pacemakerStart: 12-01-2023 End: 91-16-7365Dshldo outpatient visit 15 minutesAbimbola Chacon MD Work Phone: [facility] [place] [facility] Ear InstituteComment on above:Primary open-angle glaucoma, bilateral, indeterminate stage (Primary Dx)Start: 11-23-2023 End: 80-99-4969jwvmpojmjdLRJYWIC HOYRiverside Nondenominational HospitalStart: 06-28-2023 End: 39-78-5155fzlxeblpqnTHRPXGP HOYRiverside Nondenominational HospitalStart: 06-28-2023 End: 65-96-6483Qjzqez outpatient new 60 minutesJay Guerra MD Work Phone: [facility] Vascular PhysiciansComment on above:PAF (paroxysmal atrial fibrillation) (HCC) (Primary Dx); Presence of cardiac pacemaker; SSS (sick sinus syndrome) (HCC); Hypertension, unspecified type; Heart failure with preserved ejection fraction, unspecified HF chronicity (HCC) Start: 06-28-2023 End: 70-88-2803semyknqjxxYDCGT [facility] AmbulatoryStart: 41-71-1678Abcquo OnlyJay Guerra MD Work Phone: [facility] Vascular PhysiciansComment on above:PAF (paroxysmal atrial fibrillation) (HCC) (Primary Dx)Start: 05-31-2023 End: 21-81-8514Kwyjhv outpatient new 45 minutesAbimbola Chacon MD Work Phone: [facility] Eye [facility] Ear InstituteComment on above:Primary open-angle glaucoma, bilateral, indeterminate stage (Primary Dx); PCO (posterior capsular opacification), leftStart: 03-09-2023 End: 39-92-9063moenyoivnrSJPHKGCSadie Lyon HospitalStart: 12-27-2022 End: 91-29-5472tjjiuxhdwjRGFONDF TUCKERcility:B6Nslsv: 12-01-2022 End: 55-47-6596jolmruqcynHD VINCENZO HOY .Facility:X0Dvciv: 11-11-2022 End: 19-53-1823qdvvmnsnzhDZ VINCENZO HOY .Facility:C2Jpabs: 11-04-2022 End: 90-38-6569iyboiilsxmTX VINCENZO HOY .Facility:S7Nausi: 10-04-2022 End: 40-81-8450scgnbsnwwzCD VINCENZO HOY .Facility:B3Pukjx: 09-01-2022 End: 08-69-4316urveqllhfeLS VINCENZO HOY .Facility:S6Scojb: 08-27-2022 End: 51-92-3225dwywipjeotEJ VINCENZO HOY .Facility:L5Cghgy: 08-27-2022 End: 90-55-8622falyklcfkqIM VINCENZO HOY .Facility:Z1Bgbsb: 05-22-2022 End: 26-42-7491pseaixqbdgGJ VINCENZO HOY .Facility:J0Omflc: 03-22-2022 End: 59-46-5973rxjjcreoazYJ VINCENZO HOY .Facility:H1 Procedures DateProcedureProcedure DetailPerforming ClinicianStart: 28-15-4735Rutjqezijaot ophthalmic imaging optic nerveMark Axel Chacon MD Work Phone: Start: 91-06-4153Xkjjfn field xm uni/bi w/interp extended examMark Axel Chacon MD Work Phone: Start: 94-60-5581Hhxojwsrkmoo ophthalmic imaging optic nerveMark Axel Chacon MD Work Phone: Start: 32-60-6184Pwm routine ecg w/least 12 lds w/i&r Kiko Stevenson Jameson STILL OPERATOR BATCH OR CONTINUOUS Work Phone: Start: 24-57-5055SI PELVISCorey Minoo DO Work Phone: Start: 91-06-7921Mqxkzk field xm uni/bi w/interp extended examMark Axel Chacon MD Work Phone: Start: 30-98-1860OrdjrkspniveorzeqyqrfoninaGdauymy NILL Start: 74-76-8450Vkk routine ecg w/least 12 lds w/i&r Jay Guerra MD Work Phone: Start: 23-30-4002Zlimsmwwqxpv ophthalmic imaging optic nerveMark Axel Chacon MD Work Phone: Start: 92-48-1412Bgty-cataract laser surgeryMark Axel Chacon MD Work Phone: Start: 88-68-5308BogoxpyxfbjWuwmyub NILL Start: 70-87-9699Zfdrmwipl hysterectomyAbdominal hysterectomyMichael NILL Start: 10-59-1272Smywzbctuokf cholecystectomy Laparoscopic cholecystectomyMichael NILL AppendectomyMichael NILL Arthroscopy of kneeMichael NILL Comment on above:rightCholecystectomyMichael NILL Dilation and curettage of uterusMichael NILL Insertion of permanent cardiac pacemaker pulse generator and electrodeMichael NILL Tonsillectomy and adenoidectomyMichael NILL Vaginal hysterectomyMichael NILL Plan of Treatment DateCare ActivityDetailAuthorStart: 22-21-8507CXwQ,Tdap and Td Vaccines (4 - Td or Tdap)DTaP,Tdap and Td Vaccines (4 - Td or Tdap)[facility] Health SystemStart: 83-59-3252Ejmvtiq vaccinationOSU Fairfield Medical Centertart: 11-25-2025 End: 40-09-7360Rgltrrq encounter pewnothvo17/13/2026 3:00 PM EDT Office Visit [facility] [place] [address] [place] [address] Abimbola Chacon MD [address] [place] [address] [facility] InstituteStart: 82-06-8847JERSX-19 Vaccine ()COVID-19 Vaccine ( season)[facility] HealthcareStart: 06-11-2025 End: 03-23-2227WV 125CA 125 Lab Routine Cyst of right ovary Complex ovarian cyst Expected: 06/11/2025 (Approximate), Expires: 06/11/2026[facility] Work Phone: comment on above:Expected: 06/11/2025 (Approximate), Expires: 06/11/2026Start: 05-27-2025 End: 56-07-2569Sfavjkp encounter wisfrrrxu14/13/2025 3:00 PM EDT Office Visit [facility] [place] [address] [place] [address] Abimbola Chacon MD [address] [place] [address] [facility] InstituteStart: 92-44-5683RXHVJ-19 VACCINE ( season)COVID-19 VACCINE ( season)[facility] Centertart: 28-54-3010Vevaamcxz vaccinationOSU Fairfield Medical Centertart: 03-13-2025 End: 14-65-4559jmwxuflkhd29/30/2025 1:15 PM EDT Device Check OP [facility] [address] [place] [address] UjtmGxzlgm Heart & Vascular PhysiciansStart: 48-87-1770Tlmbwu vaccine hzv live for subcutaneous useZOSTER (SHINGLES) VACCINE (2 of 2)OSSelect [facility], [facility] Shawtart: 07-02-2024 End: 74-53-8244lvjugrtuzl54/18/2024 3:30 PM EST Device Check OP [facility] [address] [place] [address] JfasBmeksi Heart & Vascular PhysiciansStart: 03-65-5334VKCIV III : OFFICE VISITCLASS III : OFFICE VISITOhioHealthStart: 06-04-2024 End: 94-61-9781Wqpbrbs encounter jdalqdirr60/21/2024 3:30 PM EDT Office Visit [facility] [place] [address] [place] [address] Abimbola Chacon MD [address] [place] [address] [facility] InstituteStart: 54-56-8286XXEUN-19 VACCINE ( season)COVID-19 VACCINE ()[facility]: 92-10-1541POZHY-19 VACCINE ()COVID-19 VACCINE ()[facility]: 99-07-7203QTIFX-19 Vaccine ()COVID-19 Vaccine ()[facility] SystemStart: 12-16-2910Hfmqvzokj vaccination [facility]: 03-29-2024 End: 67-12-7806Xayeasy encounter ccdhypiqp72/15/2024 2:10 PM EDT Office Visit [facility] [address] [place] [phone] Kiko Barba, STILL OPERATOR BATCH OR CONTINUOUS [address] [facility] [address] [facility] [address] [place] [address] [facility] PhysiciansStart: 03-27-2024 End: lead ECGECG 12 lead ECG Routine PAF (paroxysmal atrial fibrillation) (HCC) Expected: 03/27/2024, Expires: 03/27/2025[facility] Work Phone: Comment on above:Expected: 03/27/2024, Expires: 03/27/2025Start: 03-21-2024 End: 15-85-2804Rkffgyx encounter jnpejixlb45/07/2024 11:00 AM EDT Office Visit [facility] [address] [place] [phone] Wes Diaz MD [address] [facility] [place] [address] [facility] OncologyStart: 03-14-2024 End: 52-10-3281Zqglhvq encounter [facility] Start: 02-21-2024 End: 17-94-7144Lancvlo encounter iwromjrta39/09/2024 7:00 AM EDT Appointment [facility] [address] [place] [phone] Simone Campoverde MD [address] [facility] [address] [place] [address] [facility] PhysiciansStart: 12-27-2023 End: 03-35-9731Srousow encounter /14/2024 1:50 PM EDT Office Visit [facility] [address] [place] [phone] Jay Guerra MD [address] [facility] [address] [place] [address] [facility] PhysiciansStart: 12-01-2023 End: 96-82-1962Tbybwbx encounter udwqmkqvl84/18/2024 10:30 AM EDT Office Visit [facility] [place] [address] [place] [phone] Abimbola Chacon MD [address] [place] [address] [facility] InstituteStart: 36-05-1721MSKBD-19 Vaccine ( season)COVID-19 Vaccine ( season)[facility]Start: 06-28-2023 End: 78-01-1368Qwftbvn encounter /14/2023 1:00 PM EST Office Visit [facility] [address] [place] [address] Jay Guerra MD [address] [facility] [address] [place] [address] [facility] PhysiciansStart: 14-70-1135SLAMP-19 VACCINE ( season)COVID-19 VACCINE ( season)[facility] Start: 51-52-5555Cfqwyfegl vaccinationSequential Influenza Vaccine (#1) [facility]Start: 91-06-0502Zkbsgowio for malignant neoplasm of breastMAMMOGRAM SCREENING DISCUSSIONOSSelect Medical [facility], [facility] Shawtart: 29-85-9380Imnh risk assessmentFalls Risk AssessmentOhioHealthStart: 99-69-1031Muxn Risk Screening Fall Risk ScreeningProOhio State East Hospital SystemStart: 40-93-6008Yjplffyvshsk vaccinationOSSelect Medical [facility], Edwin Shawtart: 86-45-3405Sogryuezrxno Vaccine: Age 65+ (1 - PCV)Pneumococcal Vaccine: Age 65+ (1 - PCV)[facility]Start: 2002 Pneumococcal Vaccine: Age 65+ (1 of 1 - PCV)Pneumococcal Vaccine: Age 65+ (1 of 1 - PCV)[facility]Start: 41-43-4740Auaajvumnnqxcq of herpes zoster vaccineZoster Vaccines (1 of 2)[facility]Start: 82-37-8149Jyuyjsqvgvsiyl of varicella zoster vaccineZoster (Shingles) Vaccine (1 of 2)[facility] SouthedicMille Lacs [facility] SystemStart: 30-45-5935Ehkkbaczvcma vaccinationPNEUMOCOCCAL VACCINE SERIES (1 of 1 - PCV)[facility]: 21-83-1764Xuguci vaccine hzv live for subcutaneous useZOSTER (SHINGLES) VACCINE (1 of 2)[facility] CenterStart: 1982 Screening for malignant neoplasm of colonCOLORECTAL CANCER SCREENING DISCUSSION OSSelect Medical [facility], Edwin Shawtart: 41-09-6403Kwieupnjv for malignant neoplasm of cervixCERVICAL CANCER SCREENING DISCUSSIONOSSelect Medical [facility] Shawtart: 70-30-1918AMeE,Tdap and Td Vaccines (1 - Tdap)DTaP,Tdap and Td Vaccines (1 - Tdap)[facility] SystemStart: 91-16-6348Ruhks BMI ScreeningAdult BMI ScreeningMercy Health Kings Mills Hospital SystemStart: 25-19-7058Cdtugzoqux screening using PHQ- 9 (Patient Health Questionnaire 9) scorePaioHealthStart: 79-33-3850Vnvtdje ScreeningTobacco ScreeningProMercer County Community Hospitaltart: 58-87-7189TXhP/Tdap/Td Vaccines (1 - Tdap)DTaP/Tdap/Td Vaccines (1 - Tdap)[facility] HealthcareStart: 50-18-9961Krnhrjqutsqr Vaccine: Age 65+ (1 of 2 - PCV)Pneumococcal Vaccine: Age 65+ (1 of 2 - PCV)WisconsinHealthStart: 14-54-2606Ywqxwaw and physical examination, annual for health maintenanceRiverside Regional Medical Center VisitPaioHealthStart: 09-07-1940Medicare Wellness VisitMedipeoples hospital Wellness VisitOhioHealthStart: 38-97-0424Bjmotua aminotransferase measurementCLASS III : ALTOhioHealSaint Joseph's Hospitaltart: 82-32-8753UBMGZ III : ASTCLASS III : ASTOhioHealthStart: 48-53-0077FZOCI III : CXRCLASS III : CXR OhioHealthStart: 93-64-1170RSIYC III : EKGCLASS III : EKGOhioHealthStart: 38-71-0690FEBFY III : PFTCLASS III : PFTOhioHealSaint Joseph's Hospitaltart: 1937Medicare Annual Wellness VisitMedicare Annual Wellness VisitCritical access hospitaltart: 65-35-8002Vntuilpeq [Moles/volume] in Serum or PlasmaPOTASSIUMOSSelect Medical [facility] Hospital, [facility] Shawtart: 09-37-4283Uiknpfcbg for osteoporosisOSSelect Medical [facility] Hospital[facility] Shawtart: 80-27-9929Wijsdta stimulating hormone measurementOhioHealth End: lead ECGECG 12 lead ECG Routine PAF (paroxysmal atrial fibrillation) ([facility]) 1 Occurrences starting 06/23/2023 until 06/23/2024[facility] Work Phone: Comment on above:1 Occurrences starting 06/23/2023 until 06/23/2024 End: lead ECGECG 12 lead ECG Routine PAF (paroxysmal atrial fibrillation) ([facility]) Presence of cardiac pacemaker 4 Occurrences starting 02/02/2024 until 02/01/2025[facility] Work Phone: comment on above:4 Occurrences starting 02/02/2024 until lead ECGECG 12 lead ECG Routine PAF (paroxysmal atrial fibrillation) ([facility]) 03/29/2024 1:48 PM EDTOhiOKealth Work Phone: Ophthalmic us dx corneal pachymetry uni/biPACHYMETRY- OU WI Charge Routine Primary open-angle glaucoma, bilateral, indeterminate stage Ordered: 05/31/2023[facility] HospitalComment on above:Ordered: 05/31/2023 Immunizations Immunization DateImmunizationNotesCare AnmwnvdrEezrpmho97-83-7270evlysbyuo virus vaccine, unspecified formulationAbimbola Chacon MD Work Phone: [facility]10-18-2024zoster vaccine, unspecified formulationAbimbola Chacon MD Work Phone: [facility]10-12-2023influenza virus vaccine, unspecified formulationCoelbert [facility] Work Phone: [phone]-DuojoScci Hospital Lima09-15-2022 SARS-CoV-2 (COVID-19) mRNAMUL.ORD!i68885Paspkvz NILL [phone]-VihblMemorial Hospitalue04-13-2022 SARS-CoV-2 mRNA (hnjciuhptvg-azuw-gqwbnii) vaccineMichael NILL [phone]-TscmvScci Hospital Lima10-27-2021 SARS-CoV-2 (COVID-19) mRNA BNT-162b2 vaxMichael NILL [phone]-KxsihScci Hospital LimaComment on above: Result Comment: 2024-04-13: [id number]-EsW-6 (COVID-19) mRNA-1273 vaccineMichael NILL [phone]-PwqhzScci Hospital Lima01-21-2021 SARS-CoV-2 (COVID-19) mRNA-1273 vaccineMichael NILL [phone]-FvxkpScci Hospital Lima Payers DatePayer CategoryPayerPolicy [id number] Care (unspecified)MEDICARE SUPPLEMENT [id number] PAYOR MEDICARE SUPPLEMENT [id number] 2023-Present [address] [place] [id number] Health Insurance [id number] 2002Medicare [id number]96.315 [id number] 1960 Private Health [id number] 2.16.840.1.451764.3.57[id number] 2.16.840.1.532621.3.579.2.81603-51-6660Wwjqgoj7342785 2.16.840.1.212150.3.579.2.31077-14-2766Jmlpgcc7585606 2.16.840.1.362318.3.57[id number] 2.16.840.1.534265.3.57[id number] 2.16840.1.512224.3.579.2.52360-96-5582Jvtqbtq8254119 2.16840.1.608796.3.57[id number] 2.16840.1.272878.3.579.2.86810-38-9412Gpocuum0290773 2.16840.1.791243.3.579.2.88646-08-7541Xqijgup5468119 2.16840.1.284685.3.579.[id number] 2.16840.1.775953.3.579.2.2[id number] 2.16840.1.847240.3.579.2.67624-92-4569Xmuordt740303550 2.16.840.1.405701.3.579.2.6[id number] 2.16840.1.614153.3.579.2.5[id number] 2.16.840.1.480230.3.579.2.26648-21-8974Iqhgfni551605980 2.16.840.1.451151.3.579.[id number] 2.16.840.1.563253.3.579.2.651840-37-0833Hazljuc15544526 2.16.840.1.028844.3.579.2.[id number] 2.16.840.1.630963.3.579.2.31765-41-4043Xnxxoyn14738081 2.16.840.1.009246.3.579.2.38[id number] 2.16840.1.892544.3.57[id number] 2.16.840.1.271158.3.579.2.56654-44-3663Ujxdygx227404048 2.16.840.1.879786.3.579.2.32584-33-4290Rstfbfq93278217 2.16840.1.058052.3.579.2.416788-42-7114Zucqudv267524902 2.840.1.11[id number] Social History DateTypeDetailFacilityStart: 05-31-2023 End: 29-15-5700Mgczzce smoking status NHISNever smoked tobaccoOSU Fairfield Medical Centertart: 05-31-2023 End: 78-86-1985Brzkjgh use and exposureSmokeless tobacco non-userOSU Fairfield Medical Centertart: 05-31-2023 End: 59-65-4801Fnjpmfd intakeEx-drinker (finding)[facility] CenterStart: 05-31-2023 End: 81-68-4842Lhonpsc of Social functionOSU Fairfield Medical Centertart: 05-31-2023 End: 74-55-7998Rzqeuii use panelGlenbeigh Hospitaltart: 1935 Sex Assigned At BirthNot on fileOSSamaritan HospitalTobacco smoking status NHISTobacco smoking consumption unknownOhioHealthStart: 06-28-2023 End: 36-46-8269Iljhzgg intakeLifetime non-drinker (finding)OhioHealthStart: 93-77-2326Xocoscg smoking statusNeKindred Hospital [facility]ima [facility] Hospitaltart: 60-44-4841NsoScemhy (finding)[facility] Medical Equipment Procedure CodeEquipment CodeEquipment Original TextEquipment IdentifierDates Acclarent [id number] [address] Chrissy [id number]_impStart: 19-99-1278Zosgcihkt [address] [id number]_impStart: 53-10-0166Acvbtmvrf [address] [id number]_impStart: 05-12-2022 Functional Status QsveQxxblhfjdqMtozhlFurpwpbu48-97-8093Rqmyyoqvks StatusN/AFhuiEvans Army Community Hospital Clinical Notes 03-22-2022 to 06-11-2025 Note Date & DapvCahtJdfoqmpe19-65-8208 History of Present illness Narrative* Marii Medina [...] nursing note reviewed. Exam conducted with a licensed guide present. Vitals: Estimated body mass index is [...] of: Lan Hennessy DO documented in this encounterSac-Osage HospitalIbpxrdapni00-48-4210 NoteCardiovascular Medicine [facility] SUBJECTIVE Chief Complaint Patient presents with [...] got back a few weeks ago from [place], they went to [place] for a couple of months. 06/04/2025 She [...] She will be snow birding down to [place], [place] in Aug, 2025 Patient Active Problem [...] Epidermal inclusion cyst Fibrocystic breast History of [place] (myocardial infarction) Hypothyroidism Iron deficiency anemia Osteopenia [...] problem. Does not bruise (more content not included)...[facility]10-13-2025 History of Present illness Narrative* Christelle Castro [...] ROS: complete review of systems performed by hvac installation technician, reviewed by me. OCT: follow up, [...] hygiene and AT's. documented in this encounterOSU [facility]10-03-2025 NoteClinical Information Procedure: I&D right thumb Pre-operative diagnosis: CONTUSION OF RT THUMB WITH DAMAGE TO NAIL INITIAL ENCOUNTER SP Specimen A Right thumbnail Gross Description Received in formalin labeled 'right thumbnail' is a green-discolored nail measuring 2.0 x 1.5 x 0.2cm. Career Development Counselor sections are submitted in cassette A1 after decalcification. Microscopic Description No tissue retrieved after processing. Diagnosis Right thumbnail, excision: No tissue retrieved after processing. Nondiagnostic specimen. [id number] Jennifer Kincaid MD PhD (Electronically signed by) Verified: 05/22/25 10:09[facility] HospitalComment on above:Performed By: #### SPR #### [facility] (DEFAULT) [address] [place], [place] [phone] NoteCardiovascular Medicine [facility] #Cardiac risk stratification -RCRI: 1 points, [...] soon as cleared by surgeon. Chilango Yousif APRN-[facility] Cardiovascular MedicineCrystal Clinic [facility]06-18-2025 Note Attestation signed by Juan Casillas MD at 02/04/2025 12:57 AM I reviewed the salient portions of the patient history. I have seen and examined the patient with the resident/fellow Dr. Almeida on 01/30. I repeated the jessica components of the exam. Agree with the noted assessment and plan. Juan Casillas MD [facility] Physicians Pulmonary and Critical Care Medicine Pulmonary Clinic Visit Note Patient: Karen Gifford Age: 89 y.o. : 1935 Account No.: [id number] Follow up visit Last visit 03/2024 HPI [...] lobe. Past Medical History: Diagnosis Date A-fib ([facility]) Abnormal ECG Cancer ([facility]) CVA (cerebral vascular accident) ([facility]) GERD (gastroesophageal reflux disease) Hyperlipidemia Hypertension [...] production CV: no c (more content not included)...[facility] 12-13-2024 NoteCardiovascular Medicine [facility] SUBJECTIVE Chief Complaint Patient presents with Atrial Fibrillation Hypertension Karen Gifford is a 89 y.o. female here for follow-up after her recent admission to [facility]. HPI PMHx: persistent a.fib, sinus node [...] got back a few weeks ago from [place], they went to [place] for a couple of months. Patient Active [...] Epidermal inclusion cyst Fibrocystic breast History of [place] (myocardial infarction) Hypothyroidism Iron deficiency anemia Osteopenia [...] Eyes: Extraocular Movements: Extraocula (more content not included)...[facility]05-01-2025 NotePatient is here for a 6 month [...] for palpitations (heart pounding). Musculoskeletal: Positive for arthritis.[facility] 11-21-2024 History of Present illness Narrative* Kimberly العلي - 11/21/2024 3:15 PM EDT REASON FOR VISIT Karen Gifford presents to clinic today for a Established Patient visit. Chief Complaint Follow-up HISTORY OF PRESENT ILLNESS HPI 5+ months Primary Open Angle Glaucoma Follow-up; [facility] Patient asked about problems with loss of [...] ROS: complete review of systems performed by hvac installation technician, reviewed by me. OCT: follow up, [...] hygiene and AT's. documented in this encounterOSU [facility] Center11-12-2024 NoteUT Electrophysiology Consult Note Reason for visit: [...] fib with varying intervals Echocardiogram performed at [facility] on 12/25/2021 showed EF of 55 to [...] HTN, LANEY, HLD FMHx: mother - hx [place] ETOH: denies Tobacco: denies Illicit drugs: denies [...] file Number of Places (more content not included)...[facility]10-21-2024 History of Present illness Narrative* Kulwant Ellis [...] time was spent with patient performing the hvac installation technician work of this visit. * Abimbola [...] ROS: complete review of systems performed by hvac installation technician, reviewed by me. OCT: follow up, [...] 2)PCO: resolved OS. documented in this encounterOSU [facility] Center09-05-2024 NoteGeneral Surgery Office/Clinic Note Chief Complaint consultation [...] significant for appendectomy, cholecystectomy and hysterectomy; last lmiiunfjagt6391, wnl; patient had EGD 10/2023 in [place] due to upper abd pain, found gastritis, [...] breast History of chronic gastritis History of [place] (myocardial infarction) HTN (hypertension) Hypothyroidism Iron deficiency anemia Mitral regurgitation Multiple pulmonary nodules LANEY (obstructive sleep apnea) Osteopenia Perica (more content not included)...[facility] ShawComment on above:Result Comment: Electronically Signed By: CAITLIN CORDON, Avtar Priest\Date and Time Signed: 04/19/24 13:12 [id number] History of Present illness Narrative* Wes Diaz [...] procedures Referring and communicating with other health director day care center (not separately reported) Documenting clinical information in the electronic or other health record Wes Diaz MD documented in this encounterCincinnati Shriners Hospital08-15-2024 Instructions* Patient Instructions* Zee Hollis MA - 03/29/2024 2:19 PM EDT We will see you back in the office: as needed If you need to cancel or reschedule an appointment please call [phone]. If you have any questions please call SHERRY Burciaga directly at [phone]. documented in this gmsywgapkFvjbYygqsp51-29-0789 History of Present illness Narrative* Kiko Barba CNP - 03/29/2024 2:10 PM EDT ELECTROPHYSIOLOGY Clinic Established Follow Up Visit Patient Name: Karen Gifford MR #: [id number] : 1935 Physicians: Vincenzo Austin MD (Family); No ref. provider found (Referring) Primary Surveillance Technician: Dr. Jay Guerra Assessment and Plan: ASSESSMENT: Recent hospitalization for shortness of breath -found with large pericardial effusion status post pericardiocentesis -Found with large pleural effusion status post bilateral thoracentesis -Perhaps malignant? Persistent atrial fibrillation -QGR8JV6-RYQb: 5 on Xarelto -Rate control strategy previously [...] She already followed up with [place]ology [place] and is due to follow-up with pulmonology soon to address her pleural effusions and perhaps discuss malignancy etiology. She is interested in consolidating care at [place] which would be reasonable to keep her close to home. All of our records are available through care everywhere and able to be accessed at [place]. We will be available for any as needed follow-ups if the need were to arise. FOLLOW UP IN: As needed Kiko Barba, MS, WAREHOUSE DISTRIBUTION SPECIALIST-STILL OPERATOR BATCH OR CONTINUOUS, AGACNP-BC [facility] Office Inpatient: Please contact me through secure chat To expedite correspondence this note was generated by [employer] voice recognition software. Some grammatical or spelling [...] Strain: Low Risk (03/08/2024) Received from [facility] Overall Financial Resource Strain (CARDIA) Difficulty of Paying Living Expenses: Not hard at all Food Insecurity: No Food Insecurity (03/08/2024) Received from [facility] Hunger Vital Sign Within the past 12 months, you worried that your food would run out before you got the money to buymore.: Never true Transportation Needs: No Transportation Needs (03/08/2024) Received from [facility] Transportation In the past 12 months, has lack of transportation kept you from medical appointments or from getting medications?: No Housing Stability: Low Risk (03/08/2024) Received from [facility] Housing Stability Vital Sign In the last 12 months, was there a time when you did not have a steady place to sleep or slept in [facility] (including now)?: No Allergies: Calcium channel blocking [...] Transcriptions 03/29/24 2:23 PM documented in this [id number] NoteELECTROPHYSIOLOGY Clinic Established Follow Up Visit Patient Name: Karen Gifford MR #: [id number] : 1935 Physicians: Vincenzo Austin MD (Family); No ref. provider found (Referring) Primary Surveillance Technician: Dr. Jay Guerra Assessment and Plan: ASSESSMENT: Recent hospitalization for shortness of breath -found with large pericardial effusion status post pericardiocentesis -Found with large pleural effusion status post bilateral thoracentesis -Perhaps malignant? Persistent atrial fibrillation -EGI8AV4-GOIy: 5 on Xarelto -Rate control strategy previously [...] She already followed up with cardiology [place] and is due to follow-up with pulmonology soon to address her pleural effusions and perhaps discuss malignancy etiology. She is interested in consolidating care at [place] which would be reasonable to keep her close to home. All of our records are available through care everywhere and able to be accessed at [place]. We will be available for any as needed follow-ups if the need were to arise. FOLLOW UP IN: As needed Kiko Barba, MS, WAREHOUSE DISTRIBUTION SPECIALIST-STILL OPERATOR BATCH OR CONTINUOUS, AGACNP-[facility] Office Inpatient: Please contact me through secure chat To expedite correspondence this note was generated by [employer] voice recognition software. Some grammatical or spelling [...] Strain: Low Risk (03/08/2024) Received from [facility] Overall Financial Resource Strain (CARDIA) Difficulty of Paying Living Expenses: Not hard at all Food Insecurity: No Food Insecurity (03/08/2024) Received from [facility] Hunger Vital Sign Within the past 12 months, you worried that your food would run out before you got the money to buy more.: Never true Transportation Needs: No Transportation Needs (03/08/2024) Received from [facility] Transportation In the past 12 months, has lack of transportation kept you from medical appointments or from getting medications?: No Housing Stability: Low Risk (03/08/2024) Received from [facility] Housing Stability Vital Sign In the last 12 months, was there a time when you did not have a steady place to sleep or slept in a senior care (including now)?: No Allergies: Calcium channel blocking [...] by mouth daily w (more content not included)...[facility]07-25-2024 Miscellaneous Notes* Telephone Encounter - Nakita Plunkett - 03/08/2024 9:22 AM EDT Band Top Maker left voice message to reschedule appt. Provider out of office. documented in this encounterCincinnati Shriners Hospital07-25-2024 Telephone encounter Note* Telephone Encounter - Nakita Plunkett - 03/08/2024 9:22 AM EDT Band Top Maker left voice message to reschedule appt. Provider out of office. [facility]07-22-2024 Miscellaneous Notes* Telephone Encounter - Jenny Rocha RN - 03/05/2024 3:30 PM EDT DONAL left instructing pt to c/b for new patient visit. documented in this encounterCincinnati Shriners Hospital07-22-2024 Telephone encounter Note* Telephone Encounter - Jenny Rocha RN - 03/05/2024 3:30 PM EDT VM left instructing pt to c/b for new patient visit. [facility]04-18-2024 History of Present illness Narrative* Mindi [...] time was spent with patient performing the hvac installation technician work of this visit. Referring Physician: [...] ROS: complete review of systems performed by hvac installation technician, reviewed by me. OCT: baseline, good [...] 2)PCO: resolved OS. [facility] History of Present illness Narrative* Jay Guerra MD - 06/28/2023 1:00 PM EST Electrophysiology Clinic Consult Heart & Vascular [facility] 06/28/2023 Jay Guerra MD [address] [facility] [address] Patient: Karen Gifford Date of : [...] her age, doing water walking at the [facility] for 30 minutes twice per week. [...] 88 y.o. female who presents today to [facility] care. The following issues were addressed [...] daily indefinitely in the setting of a PDJ5ZE3-POPb score of 5. Sick sinus syndrome status [...] referring and/or communicating with other health director day care center, coordinating care, and documenting the above findings. documented in this [id number] Instructions* Patient Instructions* Janet Mendoza RN - 06/28/2023 12:44 PM EST Testing Ordered: None Medication Changes: Stop Amiodarone Lab Work Ordered: None To schedule any outpatient testing( if applicable) simply call [phone] and follow the prompts to schedule any outpatient testing. If you have any questions or concerns about today's visit please call Janet POWELL at [phone] documented in this [id number] History of Present illness Narrative* Shanique Ndiaye [...] time was spent with patient performing the hvac installation technician work of this visit. Referring Physician: [...] ROS: complete review of systems performed by hvac installation technician, reviewed by me. OCT: baseline, good [...] ocular emergencies after hours documented in this [facility]08-08-2022 NoteCARDIAC STRESS TEST Requesting Physician: Procedure Date:03/22/2022 [...] interpreted and reported in a separate dictation.[facility] No data available for this section [facility] [place] Evaluation note* Diagnosis Primary open-angle glaucoma, bilateral, indeterminate stage- Primary PCO (posterior capsular opacification), left After-cataract, unspecified [facility] Diagnosis PAF (paroxysmal atrial fibrillation) (HCC)- Primary Atrial fibrillation [facility] Diagnosis PAF (paroxysmal atrial fibrillation) (HCC)- Primary Atrial fibrillation 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 SSS (sick sinus syndrome) ([facility]) Sinoatrial node dysfunction Hypertension, unspecified type Heart failure with preserved ejection fraction, unspecified HF chronicity ([facility]) [facility] Diagnosis Primary open-angle glaucoma, bilateral, indeterminate stage- Primary [facility] Diagnosis PAF (paroxysmal atrial fibrillation) (HCC)- Primary Atrial fibrillation 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 [facility] Diagnosis PAF (paroxysmal atrial fibrillation) (HCC)- Primary Atrial fibrillation [facility] Diagnosis Persistent atrial fibrillation (HCC)- Primary Atrial fibrillation PAF (paroxysmal atrial fibrillation) (HCC) Atrial fibrillation SSS (sick sinus syndrome) (HCC) Sinoatrial node dysfunction 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 Pericardial effusion Unspecified disease of pericardium Pleural effusion Unspecified pleural effusion [facility] Diagnosis Primary open-angle glaucoma, bilateral, indeterminate stage- Primary [facility]* Diagnosis Cyst of right ovary- Primary Other and unspecified ovarian cyst Elevated cancer antigen 125 (CA 125) Elevated cancer antigen 125 [CA 125] [facility] Diagnosis Primary open-angle glaucoma, bilateral, indeterminate stage- Primary Dry eye syndrome of bilateral lacrimal glands Tear film insufficiency, unspecified [facility] Diagnosis Primary open-angle glaucoma, bilateral, indeterminate stage- Primary Dry eye syndrome of bilateral lacrimal glands Tear film insufficiency, unspecified Primary open-angle glaucoma, bilateral, moderate stage [facility]* Diagnosis Cyst of right ovary Other and unspecified ovarian cyst Pelvic pain Complex ovarian cyst documented in this encounter [facility] No data available for this section [facility] [place] InstructionsNot on filedocumented in this encounter [facility] filedocumented in this encounter [facility]Not on filedocumented in this encounter [facility]ructionsNot on filedocumented in this encounter [facility] No data available for this section [facility] [place] Summary Purpose Family History No Family History [...] Procedures ECG 12 lead Jay Guerra MD [address] [place] [address] Referral IDStatusReasonStart DateExpiration DateVisits RequestedVisits [id number]/9/202311/345834PkaefvlwkSeqqugyed / Procedures Referred By ContactReferred To ContactCardiology Diagnoses PAF (paroxysmal atrial fibrillation) (HCC) Presence of cardiac pacemaker Procedures ECG 12 lead Jay Guerra MD [address] [place] [address] Referral IDStatusReasonStart DateExpiration DateVisits RequestedVisits [id number]/20/20246/221533MyjrwdvcjJcmhkmgds / Procedures Referred By ContactReferred To ContactCardiology Diagnoses PAF (paroxysmal atrial fibrillation) (HCC) Procedures ECG 12 lead Jameson, Kiko Stevenson, STILL OPERATOR BATCH OR CONTINUOUS [address] [place] [address] Referral IDStatusReasonStart DateExpiration DateVisits RequestedVisits [id number]/13/20248/13/202511 Additional Source Comments INFORMATION SOURCE (unrecogn ized section and content) DATE CREATED AUTHOR 12/28/2022 [facility] DATE CREATED AUTHOR AUTHOR'S ORGANIZ ATION 03/10/2023 [facility] DATE CREATED AUTHOR AUTHOR'S ORGANIZ ATION 12/10/2023 [facility] DATE CREATED AUTHOR AUTHOR'S ORGANIZ ATION 04/02/2024 [facility] DATE CREATED AUTHOR AUTHOR'S ORGANIZ ATION 04/19/2024 [facility] DATE CREATED AUTHOR AUTHOR'S ORGANIZ ATION 04/19/2024 [facility] DATE CREATED AUTHOR AUTHOR'S ORGANIZ ATION 05/12/2024 [facility] DATE CREATED AUTHOR AUTHOR'S ORGANIZ ATION 05/28/2025 [facility] DATE CREATED AUTHOR AUTHOR'S ORGANIZ ATION 06/05/2025 [facility] DATE CREATED AUTHOR AUTHOR'S ORGANIZ ATION 06/12/2025 [facility] DATE CREATED AUTHOR AUTHOR'S ORGANIZ ATION 06/16/2025 [facility] Reason for Visit (unrecogniz ed section and content) ReasonCommentsNew WuswnwqDesmhlpvQscvzrVrovvpusWunohe-mfWvazsqYtzzlqkaZzpkna-mb Hosp. F/uReasonOnset DateCommentsReschedule appt4ReasonCommentsNew PatientReasonCommentsGynecologic Exam Care Teams (unrecognized sec tion and content) Team MemberRelationshipSpecialtyStart DateEnd Date Vincenzo Austin MD [address] [place] [address] PCP - GeneralFamily Lhrtqwal83/17/23 Jennifer Redman DO [address] [place] [place] [address] Cksqbnurxhzck26/17/23Te MemberRelationshipSpecialtyStart DateEnd Date Vincenzo Austin MD [address] [place] [address] PCP - GeneralFamily Puhpytvv82/1/23Te MemberRelationshipSpecialtyStart DateEnd Date Vincenzo Austin MD [address] [place] [address] PCP - GeneralFamily Piefmfyv52/1/23 Jay Guerra MD [address] [place] [address] Cardiac Qhecjjcjmzbltegsb97/14/23Te MemberRelationshipSpecialtyStart DateEnd Date Vincenzo Austin MD [address] [place] [address] PCP - GeneralFamily Yfbhhetn24/1/23 Jay Guerra MD [address] [place] [address] Cardiac Shwgeommycjiccpxr25/14/23Team MemberRelationshipSpecialtyStart DateEnd Date Vincenzo Austin MD [address] [place] [address] PCP - GeneralFamily Gzcppqay26/1/23 Jay Guerra MD [address] [place] [address] Cardiac Lnufvovjysalbwvdn68/14/23Team MemberRelationshipSpecialtyStart DateEnd Date Vincenzo Austin MD [address] [place] [address] PCP - GeneralFamily Vitnajtl48/1/23 Jay Guerra MD [address] [facility] [address] [place] [address] Cardiac Pfioeovpzkwnynffv01/14/23Team MemberRelationshipSpecialtyStart DateEnd Date Vincenzo Austin MD [address] [place] [address] PCP - GeneralFamily Yvlwwopx39/17/23 Jennifer Redman DO [address] [place] [address] Semtxxwytfpvz57/17/23Team MemberRelationshipSpecialtyStart DateEnd Date Provider, Conversion, PCP - General02/07/14Team MemberRelationshipSpecialtyStart DateEnd Date Provider, Conversion, PCP - General02/07/14Team MemberRelationshipSpecialtyStart DateEnd Date Provider, Conversion, PCP - General02/07/14Team MemberRelationshipSpecialtyStart DateEnd Date Provider, Conversion, PCP - General02/07/14Team MemberRelationshipSpecialtyStart DateEnd Date Vincenzo Austin MD [address] [place] [address] PCP - GeneralFamily Arieuwdf38/17/23 Jennifer Redman DO [address] [place] [address] Yvcpdtwbhicla24/17/23Team MemberRelationshipSpecialtyStart DateEnd Date Vincenzo Austin MD PCP - GeneralFamily Czjowsgr37/17/23 Jennifer Redman Travis Rvgvflpywlsah26/17/23Team MemberRelationshipSpecialtyStart DateEnd Vincenzo Austin MD PCP - [...] BE BASED ON THE PRIMARY CLINICAL RECORDS. [facility]. provides no warranty or guarantee of the accuracy or completeness of information in this document.
[2025-06-20 09:42] LABS: Cholesterol 118 mg/dL (<=200); HDL Cholesterol 40 mg/dL (40-60); Triglycerides 116 mg/dL (<=150); VLDL CHOLESTEROL 23.2 mg/dL
== END 2025-06-20 08:41 | disposition home or self-care (01) ==
LOC: LAB 08:40
PROVIDERS: PCP Family Medicine; Visit Provider Nurse Practitioner Family
DX: E78.2 Mixed hyperlipidemia (principal); N83.201 Unspecified ovarian cyst, right side; N83.299 Other ovarian cyst, unspecified side
CPT/HCPCS: 36415; 80061; 86304

== ENCOUNTER 2025-07-31 13:33 | Outpatient (OUT) | payer MEDICARE, OTHER, SELFPAY ==
--- OUTSIDE RECORDS SUMMARY | 2025-07-31 13:37 | XMS_ITS | Patient Health Record ---
Author Organization [facility] Address [address] [place] [address] Care Team Providers Care Furniture Arranger Name Role Phone NO, PCP Primary Care Provider OSMANY Corona Unavailable [phone] DOM MIKE Unavailable Unavailable Allergies No Known [...] Problem History of polyp of colon (situation) (286849346) History of colon polyps (Z86.010) Activeconfirmed Plan Of Treatment Pending Test Test Name Order Date Tissue Request for Pathology 10/18/2023 Insurance Providers Payer Name Payer Address Payer Phone Subscriber Number Group Number Insured Name Patient Relationship to Insured Coverage Start Date Coverage End Date [employer] [place] [employer] [address] [address] [place] [address] [id number] Mango GIFFORD - patient is the insured Medical (General) History Medical History History ICD Code A-Fib CataractGERDGlaucomaHypertensionH/o Colon polypsSurgical History Surgery Date(Month/Year) Colonoscopy 2013 EGD Mosspzctlgzkgzu4567Bnqqfoaqvosc2380Ptoglikjyjiugrk History Reason Date(Month/Year) NBH - RUQ Pain 10/17/2023
--- OUTSIDE RECORDS SUMMARY | 2025-07-31 13:37 | XMS_ITS | Clinical Summary ---
Author Organization [facility] Address [address] [place] [address] Care Team Providers Care Bakery Sales Clerk Name Role Phone Billy Patel MD Primary Care Provider [phone] Allergies Active AllergyReactionsCriticalityNoted DateCommentsSulfa Ffzphnrhasb93/19/2023 Social History Tobacco UseTypesPacks/DayYears UsedDateSmoking Tobacco: Never Assessed CommentsUnknownSex and Gender InformationValueDate RecordedSex Assigned at Not on fileLegal TgnAtxltz68/10/2013 4:18 PM ESTGender IdentityNot on fileSexual OrientationNot on file Last Filed Vital Signs Vital SignReadingTime TakenCommentsBlood Ttmxitwp811/63003/02/2023 1:39 PM EDT Aoxxy5119/19/2023 1:39 PM AWLHrecnovzdyl73.6 ??C (97.8 ??F)03/02/2023 1:39 PM EDTRespiratory Xvso651603/02/2023 1:39 PM EDTOxygen Etzzcqvjpm61%03/02/2023 1:39 PM EDTInhaled Oxygen Concentration--Izosqq99.8 kg (167 lb)03/02/2023 1:39 PM EDT Rcrohb072.2 cm (5' 7 )03/02/2023 1:39 PM EDTBody Mass Index26.16003/02/2023 1:39 PM EDT Plan of Treatment Health MaintenanceDue DateLast DoneCommentsDepression Tmajld9504/21/1949 DTaP/Tdap/Td vaccine (1 - Tdap)1956Pneumococcal 50+ years [...] Ladd TypeRelation to PatientDate of BirthPhone Billing AddressPersonal/AadlesDegt1935 [address] [address] * Guarantor: Karen Ladd TypeRelation to PatientDate of BirthPhone Billing AddressPersonal/MpjelqLsbd1935 [address] [address] Care Teams Team MemberRelationshipSpecialtyStart DateEnd Billy Patel MD [address] [place] [address] PCP - GeneralFamily Medicine03/09/23
--- OUTSIDE RECORDS SUMMARY | 2025-07-31 13:37 | XMS_ITS | Clinical Summary ---
Author Organization [facility] [employer] [facility] Address [address] [place] [address] Care Team Providers Care Commodity Analyst Name Role Phone Billy Patel MD Primary Care Provider [phone] Sean Redman DO Unavailable [phone] Allergies Active AllergyReactionsCriticalityNoted DateCommentsCalcium Channel Blockers 05/31/20230729Xiunzatgv44/17/2023 Medications MedicationSigDispense QuantityRefillsLast FilledStart DateEnd DateStatus Atenolol [...] Problems No known active problems Encounters DateTypeDepartmentCare LesdFlgdqjpneex02/13/2025 3:00 PM EDTOffice Visit [facility] [address] [place] [phone] Leonides Stahl MD Primary open-angle glaucoma, bilateral, [...] Recorded Sex Assigned at BirthNot on fileLegal RiuUlmuwn45/02/2022 12:24 PM EDTGender IdentityNot on fileSexual OrientationNot on file Plan of Treatment DateTypeDepartmentCare Team (Latest Contact Info)Nqsfchmtely77/13/2026 3:00 PM EDTOffice Visit [facility] [address] [place] [address] [address] [place] [address] Leonides Stahl MD [address] [place] [address] [address] [place] [address] Health MaintenanceDue DateLast DoneCommentsDEXA SCAN AHMWBTFMCB1937 IXNLVZNCA16/07/7036IFY69 1937CERVICAL CANCER SCREENING TUQLWKJXYZ51/07/1958 COLORECTAL CANCER SCREENING IWCBJRVLAB63/07/1982PNEUMOCOCCAL VACCINE SERIES (1 of 1 - PCV)1987MAMMOGRAM SCREENING EYKEUSTMYV97/11/079933ZOSTER (SHINGLES) VACCINE (2 of 2)OVID-19 VACCINE ( season)509/05/2024, 05/26/2023, 04/29/2022, Additional history exists INFLUENZA VACCINE (#1)510/, 05/26/2023, 05/13/2021, Additional history rgrkhuJTRDRUI36/26/419334, 01/14/2020, 07/05/2012, Additional history existsTDAP (ADULT)Gmdhuvmdj00/26/2022, 07/05/2012, 01/12/2002RSV VACCINE Vkgkhtzcr42/29/2023HEP B VACCINEAged OutNo longer eligible based on patient's age to complete this topic Procedures Procedure NamePriorityDate/TimeAssociated DiagnosisCommentsOCT OPTIC NERVE OU Wlqozvg7005/27/2025 3:29 PM EDT Primary open-angle glaucoma, bilateral, indeterminate stage from Last 3 Months Results * OCT OPTIC NERVE OU (05/27/2025 3:29 PM EDT)Anatomical RegionLateralityModality OtherSpecimen (Source)Anatomical Location / LateralityCollection Method / VolumeCollection TimeReceived Time Narrative 05/27/2025 3:29 PM EDT See note Authorizing ProviderResult TypeResult StatusMark A [facility] - OPHTHALMOLOGY SERVICE IMAGINGFinal Result from Last 3 Months Insurance Care Teams Team MemberRelationshipSpecialtyStart Date Billy Patel MD PCP - GeneralFamily Aykoezww85/17/23 Sean Redman DO Httswflgiwppo21/17/23
--- OUTSIDE RECORDS SUMMARY | 2025-07-31 13:38 | XMS_ITS | Clinical Summary ---
Author Organization [facility] Address [address] [place] [address] Care Team Providers Care Dielectric Embossing Machine Operator Name Role Phone Billy Patel MD Primary Care Provider [phone] Bony Guerra MD Unavailable [phone] Allergies Active AllergyReactionsCriticalityNoted DateCommentsCalcium Channel Blocking Agents-YiubyfbcpwledleeWkxsktb61/17/2023Enalapril KntrgmzEogqlsg31/20/2023 IsosorbideOther (See Comments)06/09/2020 Dry eyes LisinoprilOther (See Comments)05/10/2022MorphineOther (See Comments)05/13/2022 vomit GkdigobyfhFfazvpi67/01/2015Sulfa (Sulfonamide Antibiotics)Kbletsn8002/21/2023 Medications MedicationSigDispense QuantityRefillsLast FilledStart DateEnd DateStatus albuterol [...] DatePAF (paroxysmal atrial fibrillation)06/28/2023 Presence of cardiac jzltamrtb28/14/2023SSS (sick sinus syndrome)06/28/2023 Sxitbdtkvdls21/14/2023Heart failure with preserved ejection necuvwql81/14/2023 Social History Tobacco UseTypesPacks/DayYears UsedDateSmoking Tobacco: NeverSmokeless Tobacco: Never Tobacco Cessation:Counseling Given: Not Answered Alcohol UseStandard Drinks/WeekCommentsNever0 (1 standard drink = 0.6 oz pure alcohol)CommentsUnknownSex and Gender InformationValueDate RecordedSex Assigned at BirthNot on fileLegal XmiOudesf78/26/2023 1:47 PM EDTGender Identity Not on fileSexual OrientationNot on file Last Filed Vital Signs Vital SignReadingTime TakenCommentsBlood Qdsrilak034/6808 1:57 PM EDT Bvtrk520403/29/2024 1:57 PM EDTTemperature--Respiratory Rate--Oxygen Saturation-- Inhaled Oxygen Concentration--Akqnqb45.6 kg (138 lb)03/29/2024 1:57 PM EDTHeight 170.2 cm (5' 7 )03/29/2024 1:57 PM EDTBody Mass Index21.61003/29/2024 1:57 PM EDT Plan of Treatment Health MaintenanceDue DateLast DoneCommentsDexa Scan1937Medicare Wellness Visit1940Depression Screening/Follow-Up (PHQ-2/9)1949Pneumococcal Vaccine: 50+ Years (1 of 2 - PCV)1956Zoster Vaccines (1 of 2)1987 Falls Risk Rbuaviptxo19/07/2002COVID-19 Vaccine ( season)2025 05/26/2023, 04/29/2022, 11/25/2021, Additional history existsInfluenza Vaccine (#1)51, 05/13/2021, 05/07/2020, Additional history exists Tetanus/Diphtheria/Pertussis (4 - Td or Tdap)21, 01/14/2020, 07/05/2012, Additional history existsRSV UlzejkuwToyfiaogn97/29/2023HIB Vaccines Aged OutNo longer eligible based on patient's age to complete this topicHPV VaccinesAged OutNo longer eligible based on patient's age to complete this topic Hepatitis A VaccinesAged OutNo longer eligible based on patient's age to complete this topicHepatitis B VaccinesAged OutNo longer eligible based on patient's age to complete this topicIPV VaccinesAged OutNo longer eligible based on patient's age to complete this topicMeningococcal ACWY VaccineAged OutNo longer eligible based on patient's age to complete this topicMeningococcal B VaccineAged OutNo longer eligible based on patient's age to complete this topic Rotavirus VaccinesAged OutNo longer eligible based on patient's age to complete this topic Medical Devices ImplantedTypeAreaManufacturerDevice IdentifierShelf Expiration DateModel / Serial / LotAcclarent [id number] Edora 8 Mateusz [id number] Implanted:05/12/2022 (Quantity not on file)[id number] EDORA 8 MATEUSZ / [id number] / Acclarent 377 176 Solia S 45 [id number] Implanted:05/12/2022 (Quantity not on file)Pacing [id number] NOMI Bolanos 45 / [id number] / Acclarent 377 177 Nomi Bolanos 53 [id number] Implanted:05/12/2022 (Quantity not on file)Pacing [id number] NOMI Bolanos 53 / [id number] / Insurance * Guarantor: Alexa Ladd TypeRelation to PatientDate of BirthPhone Billing AddressPersonal/ZneledStwa1935 [address] [address] Advance Directives For more information, please contact: [phone] TypeDate RecordedPatient RepresentativeExplanationAdvance Directives and Living Will06/28/2023 12:40 PM Care Teams Team MemberRelationshipSpecialtyStart DateEnd Billy Patel MD [address] [place] [address] PCP - GeneralFamily Rhipfddb56/1/23 Bony Guerra MD [address] [place] [address] [address] [place] [id number] Cardiac Cfutrtvbnppvuqdpr47/14/23
--- OUTSIDE RECORDS SUMMARY | 2025-07-31 13:38 | XMS_ITS | Patient Health Record ---
Author Organization [facility] in [place] Address [address] [place] [address] Care Team Providers Care Stencil Sprayer Name Role Phone Jose Alberto Patel Primary Care Provider [phone] EdieelvaStiven Unavailable [phone] Allergies Allergen (clinical drug ingredient) Drug/Non Drug Allergy documented on EMR Reaction Allergy Type Onset Date Status Alpha Antwon Quinazolines (uncoded)UnknownAllergyActiveSubstance with sulfonamide structure and antibacterial mechanism of action (substance)Sulfa Drugs (uncoded)UnknownAllergyActiveProcardiaUnknownDrug AllergyActiveenalapril VasotecUnknownDrug AllergyActivelisinoprilZestrilUnknownDrug AllergyActive Results Component Value Reference Range Notes CA echo doppler complete Reviewed date:03/12/2025 08:04:20 AM Interpretation: Performing Lab: Notes/Report: Source Facility: [place] [address] [place] [address] Cardiology Report Signed Patient: KAREN GIFFORD MR#: [id number] : 1935 Acct:[id number] Age/Sex: 89 / F ADM Date: 03/11/25 Loc: CARD Attending Dr: CHILANGO SANDOVAL APRN Ordering Physician: CHILANGO SANDOVAL APRN Date of Service: 03/11/25 Procedure(s): CA echo doppler complete Accession Number(s): [id number] cc: Vincenzo Patel M.D.; CHILANGO SANDOVAL APRN Patient Name: KAREN GIFFORD MR#: [id number] : 1935 Exam Date: 03/11/2025 Ordering Doctor: CHILANGO SANDOVAL CNP ECHOCARDIOGRAM REPORT PROCEDURE: CA ECHO DOPPLER COMPLETE [...] 1.56 cm2, 1.57 cm2, 1.55 cm2 Deceleration Gregory: 3.64 m/s2 Pressure Half-Time: 290.34 ms Peak Velocity(Antegrade Flow): 1.19 m/s, 1.30 m/s Peak Gradient(Antegrade Flow): 5.68 mm[Hg], 6.72 mm[Hg] Tricuspid Valve Peak Velocity (Regurgitant Flow): 2.26 m/s, 2.09 m/s, 2.76 m/s, 2.45 m/s Pulmonic Valve Peak Velocity: 0.68 m/s Peak Gradient: 1.79 mm[Hg], 1.73 mm[Hg], 2.07 mm[Hg] Right Atrium Right Atrium Systolic Pressure: 63.61 ml, 63.61 ml Dictated by: Hedy Ibarra M.D. on 03/11/2025 at 17:56 Approved by: Hedy Ibarra M.D. on 03/11/2025 at 18:00 Dictated By: HEDY IBARRA Signed By: 03/11/25 180 DD/ 1800 TD/TT: Rug Cleaner Helper: CBC AUTO DIFF Reviewed date:05/15/2025 01:05:12 PM Interpretation: Performing Lab: Notes/Report: [facility] , White Blood Count 6.9 4.0-11.0 10 3/uL Red Blood Count4.964.20-5.40 10 6/mPDpnlhawbkb75.512.0-16.0 g/yHZiyjucddbb35.2 36.0-48.0 %Mean Corpuscular Bnvxbo92.181.0-99.0 fLMean Corpuscular Hemoglobin 31.326.7-34.0 pgMean Corpuscular HGB Conc33.529.9-35.2 g/dLRed Cell Distribution Width14.211.0-15.0 %Platelet Luzlc073749-040 10 3/uLMean Platelet Nmzrgf20.4 9.5-13.5 fLNeutrophils Percent Auto64.243.0-75.0 %Lymphocytes Percent Auto24.1 20.5-60.0 %Monocytes Percent Auto7.11.7-12.0 %Eosinophils Percent Auto2.90.9-7.0 %Basophils Percent Auto1.30.2-2.0 %Immature Granulocytes Pct Auto0.40.0-0.5 % Neutrophils Absolute Auto4.51.4-6.5 10 3/uLLymphocytes Absolute Auto1.71.2-3.8 10 3/uLMonocytes Absolute Auto0.50.3-0.8 10 3/uLEosinophils Absolute Auto0.20.0- 0.7 10 3/uLBasophils Absolute Auto0.10.0-0.1 10 3/uLImmature Granulocytes Abs Auto0.030.00-0.03 10 3/uLPerforming Lab:see noteML - [facility] LBECG 12 lead Reviewed date:05/15/2025 05:52:33 PM Interpretation: Performing Lab: Notes/Report: Source Facility: [place] [address] Electrocardiograph Report Signed Patient: KAREN GIFFORD MR#: [id number] : 1935 Acct:[id number] Age/Sex: 89 / F ADM Date: 05/15/25 Loc: LAB Attending Dr: Lisa-Staff Physician Patricia Ordering Physician: Shona Harris M.D. Date of Service: 05/15/25 Procedure(s): ECG 12 lead Accession Number(s): [id number] cc: [facility] Test Date: 2025-05-15 Pat Name: KAREN GIFFORD Department: Room: - Gender: Female Bible Reader: : 1935 Requested By: [id number] Order Number: [id number] Sue MD: Oscar Hendrickson Measurements Intervals [place] Rate: 80 P: UT: QRS: 92 QRSD: 157 T: -86 QT: 424 QTc: 489 Interpretive Statements atrial fibrillation with ELECTRONIC VENTRICULAR PACEMAKER ABNORMAL RHYTHM ECG Compared to ECG 03/07/2024 10:40:26 Right bundle-branch block no longer present and ventricular pacing now present Electronically Signed On 05-15-2025 13:25:11 EDT by Oscar Hendrickson Dictated By: OSCAR HENDRICKSON M.D. Signed By: 05/15/25 1325 05/15/25 1325 DD/ 1013 TD/TT: Rug Cleaner Helper:US PELVIS Reviewed date:05/23/2025 12:44:29 PM Interpretation: Performing Lab: Notes/Report: Source Facility: [place] [address] Ultrasound Report Signed Patient: KAREN GIFFORD MR#: [id number] : 1935 Acct:[id number] Age/Sex: 89 / F ADM Date: 05/22/25 Loc: US Attending Dr: Vincenzo Patel M.D. Ordering Physician: Vincenzo Patel M.D. Date of Service: 05/22/25 Procedure(s): US pelvis Accession Number(s): [id number] cc: Vincenzo Patel M.D. [place] [address] Patient Name: KAREN GIFFORD MRN: [id number] date: 1935 Sex: F Assigned Patient Location: US Current Patient Location: US Accession/Order Number: [id number] Exam Date: 05/22/2025 12:58 Report Date: 05/22/2025 18:36 At the request of: VINCENZO PATEL MD Procedure: US pelvis Transabdominal pelvic ultrasound INDICATION: Ovarian cyst COMPARISON: 12/11/2024 FINDINGS: Hysterectomy. Left ovary not visualized. Ovary not well-visualized due to posterior pelvic location. Patient refused transvaginal examination. There is a right adnexal cyst 4.9 x 4.9 x 2.8 cm in size. US/US pelvis IMPRESSION: Difficult transabdominal examination due to position of the right adnexa. Right adnexal cyst 4.9 cm in size has increased in size in the prior examination.. Impression dictated by: Young Ortega M.D. 05/22/2025 6:36 PM Dictation Location: [place] [address] Electronically authenticated by: [id number] Y Date: 05/22/2025 18:36 Dictated By: Young Ortega M.D. Signed By: 05/22/251838 DD/ 35 TD/TT: Rug Cleaner Helper:US PELVIS Reviewed date:05/15/2025 01:05:12 PM Interpretation: Performing Lab: Notes/Report: Source Facility: [place] [address] Ultrasound Report Signed Patient: KAREN GIFFORD MR#: [id number] : 1935 Acct:[id number] Age/Sex: 89 / F ADM Date: 12/11/24 Loc: US Attending Dr: Stiven Linares M.D. Ordering Physician: Stiven Linares M.D. Date of Service: 12/11/24 Procedure(s): US pelvis Accession Number(s): [id number] cc: Stiven Linares M.D.; Vincenzo Patel M.D. [place] [address] Patient Name: KAREN GIFFORD MRN: [id number] date: 1935 Sex: F Assigned Patient Location: US Current Patient Location: US Accession/Order Number: [id number] Exam Date: 12/11/2024 11:41 Report Date: 12/11/2024 [...] benign process. Impression dictated by: Greg Patel Jr., D.O. 12/11/2024 11:44 AM Dictation Location: [place] [address] Electronically authenticated by: [id number] Y Date: 12/11/2024 11:44 Dictated By: Greg Patel M.D. Signed By: 12/11/24 1147 DD/ 1144 TD/TT: Rug Cleaner Helper:Cancer Antigen (CA) 125 Reviewed date:06/21/2025 04:06:18 PM Interpretation: Performing Lab: Notes/Report: [facility] ,Cancer Antigen (CA) 09269.30.0-38.1 U/mL [facility] Electrochemiluminescence Immunoassay (ECLIA) Values obtained with different assay methods or kits cannot be used interchangeably. Results cannot be interpreted as absolute evidence of the presence or absence of malignant disease. Performed at: [address] [id number] Screw Machine Tool Setter: Meliton Barlow PhD, Phone: [phone] Performing Lab:see [facility] LBLIPID PROFILE Reviewed date:06/20/2025 12:47:21 PM Interpretation: Performing Lab: Notes/Report: [facility] ,Gaagbzpbjqogx427<=150 mg/zESrjajubdyhs608<=200 mg/dLHDL Bkpnmlrknyn1310-41 mg/dL > or =60 mg/dl - LOW CARDIOVASCULAR RISK <40 mg/dl - HIGH CARDIOVASCULAR RISK LDL Cholesterol Ldqhuexjiu13.8 <100 mg/dl OPTIMAL 100-129 mg/dl NEAR OR ABOVE OPTIMAL 130-159 mg/dl BORDERLINE HIGH 160-189 mg/dl HIGH >190 mg/dl VERY HIGH VLDL DSYSHWWHEQI16.2Chol HDL Ratio3.0 3.3 - 4.4 LOW RISK 4.4 - 7.1 AVERAGE RISK 7.1 - 11.0 MODERATE RISK >11.0 HIGH RISK Performing Lab:see noteML - [facility] LBXR chest 2V Reviewed date:05/15/2025 01:05:12 PM Interpretation: Performing Lab: Notes/Report: Source Facility: [facility] [place] [address] [place] [address] XRay Report Signed Patient: KAREN GIFFORD MR#: [id number] : 1935 Acct:[id number] Age/Sex: 89 / F ADM Date: 05/15/25 Loc: LAB Attending Dr: Lisa-Staff Physician Patricia Ordering Physician: Shona Harris M.D. Date of Service: 05/15/25 Procedure(s): XR chest 2V Accession Number(s): [id number] cc: Vincenzo Patel M.D.; Shona Harris M.D. [place] [address] Patient Name: KAREN GIFFORD MRN: [id number] date: 1935 Sex: F Assigned Patient Location: LAB Current Patient Location: LAB Accession/Order Number: [id number] Exam Date: 05/15/2025 10:28 Report Date: 05/15/2025 11:30 At the request of: NON-STAFF PHYSICIAN Procedure: XR chest 2V PA AND LATERAL CHEST: CLINICAL HISTORY: Contusion Of Right Thumb, Pre Surgical Clearance COMPARISON: 03/07/2024 chest x-ray and CT A left-sided pacemaker is again visualized. There is no focal parenchymal consolidation, effusion or pneumothorax. The cardiac, hilar and mediastinal silhouettes are within normal limits. There is no vascular congestion. The visualized bony thorax is intact. Degenerative changes and dextroscoliotic curvature are seen at the spine. XR/XR chest 2V IMPRESSION: NO ACUTE CARDIOPULMONARY ABNORMALITY. Impression dictated by: Marii Bush M.D. 05/15/2025 11:30 AM Dictation Location: [place] [address] Electronically authenticated by: [id number] Y Date: 05/15/2025 11:30 Dictated By: Marii Bush M.D. Signed By: 05/15/25 1132 DD/ 1130 TD/TT: Rug Cleaner Helper:PROF DIAZ Bey ([facility]) Reviewed date:05/15/2025 01:05:12 PM Interpretation: Performing Lab: Notes/Report: [facility] ,Hlrrgo580299-271 mmol/LPotassium3.33.5-5.1 mmol/STvighgua90577-822 mmol/LCarbon Rvphhqs69.421.0-32.0 mmol/LAnion Gap11.5Rtcvpaw26749-776 mg/dLBlood Urea Pixqoglr52.07.0-18.0 mg/dLCreatinine0.800.55-1.02 mg/dLEstimated GFR ( Hannah>60>=60 mL/min/1.73m 2Estimated GFR (Non- Veda>60>=60 mL/min/1.73m 2BUN Creatinine Ratio26.5Ixgkirx3.28.5-10.1 mg/dLPerforming Lab:see noteML - [facility] LB Reason For Referral Reason Loose nail Diagnosis 1 Onychomycosis (B35.1 ) Referral Organization [facility] Referring Provider First Name Jose Alberto Referring Provider Last Name [facility] Referring Provider [facility] Referred Provider Lui Valdez Referred Provider Specialty Orthopedic S urgery Referral Priority Routine Diagnosis 1 Sebaceous cyst (706. 2) Referral Organization [facility] Referring Provider First Name Jose Alberto Referring Provider Last Name [facility] Referring Provider [facility] Referred Provider Avtar Jones Referred Provider Specialty General Surg sheila Referral Priority Routine Medications Medication SIG (Take, Route, Frequency, Duration) Notes Start Date End Date Status hydrALAZINE HCl 50 MG 1 tablet with food Orally Twice a day; Duration: 30 days 5ActiveAtorvastatin Calcium 10 MG1 tablet Orally Once a day; Duration: 30 days4ActiveFerrous Sulfate 325 (65 Fe) MG1 tablet Orally Twice Daily; Duration: 30 days4ActiveBumetanide 1 MG1 tablet Orally Once a day; Duration: 10 daysActivedilTIAZem HCl ER 240 MG1 tablet Orally Once a day ActiveMagnesium 250 MG1 tablet with a meal Orally Twice Daily; Duration: 30 days ActiveMetoprolol Tartrate 100 MG1 tablet with food Orally Twice a day; Duration: 90 days03/16/2024ctiveLiothyronine Sodium 5 MCGTAKE 2 TABLETS ONCE DAILYActive Vitamin D3 250 MCG (19992 UT)as directed OrallyActiveXarelto 20 MG1 tablet Orally Once a day; Duration: 30 daysActivePotassium Chloride ER 10 MEQ1 tablet with food Orally Twice a day; Duration: 90 days05/15/2025tiveTimolol Maleate 0.5 %1 drop into affected eye Ophthalmic Once a dayActive Immunizations Vaccine Route Administration Date Status Comme nts Arexvy Unknown 07/13/2023 Administered ComirnatEnteroMedics Syringe Pre-Filled 30 mcg/0.3 uVDjppxvz69/10/2024dministered Flu, Fluad (88566) 65 yrs + High Dose Seasonal (0625-6538)Fspxgxd1605/16/2017 AdministeredFlu, Fluad (05553) 65 yrs + High Dose Seasonal (6923-6451)Unknown 06/01/2024dministeredFlu, Fluad (19712) 65 yrs and older, single-dose syringe (3737-9619)Aadthmc1405/07/2020AdministeredFlu, Fluad (39701) 65 yrs and older, single-dose syringe (2914-8845)Lnzjsnr3805/13/2021dministeredFlu, Fluzone High- Dose (9119-7606) (51912) 65 yrs+Qjqhvnc5305/26/20230936VrmoptuuugzqMVSL-USZ-2 (COVID 19 Moderna - Booster 0.25mL)Dtvdldq0209/04/20209981KbbmibiyobwiYMIG-OSH-2 (COVID 19 Moderna - Booster 0.25mL)Gvczuhz16/18/1075EgufhneynaikJMWO-VBT-8 (COVID 19 Pfizer 30mcg/0.3mL)Pxithoj5106/10/20212034WfsqqcdyxvseBNZT-YWM-2 (COVID 19 Pfizer 30mcg/0.3mL), meg xwvzralBhswuft92/13/3709CcvaxiuthjauZICN-PTE-5 (COVID 19) bivalent 30 mcg/0.3 ml rbqcEzueypy90/15/2022dministeredSpikevax Moderna Syringe Pre-Filled 50 mcg/0.5 aVXlyfqap10/12/2023AdministeredTd, Adult, preservative pffpAvpwwnh38/01/2020AdministeredTdap (Boostrix)Dgbphqd1007/05/2012dministered Tdap (Boostrix)Xmvuqyj12/26/2022AdministeredZOSTER (SHINGLES) VACCINE (HZV) Nohyjfc21/18/2024Administered Social History Tobacco Use: Social History Observation Description Date Details (start date - stop date) Never Smoker NA - NA Tobacco Use/Smoking Question Answer Notes Patient is a nonsmoker Alcohol Screen (Audit-C) Question Answer Notes Did you have a drink containing alcohol in the p ast year? No Muehww9ZhiowtxotkjtghIoxrysreUMFOA-X (Standard) Question Answer Notes Did you have a drink containing alcohol in the p ast year? 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)ActiveconfirmedProblemSebaceous cyst (321376913) Sebaceous cyst (L72.3)ActiveconfirmedProblemSolitary pulmonary nodule (129765788)Solitary pulmonary nodule (R91.1)ActiveconfirmedProblemMitral regurgitation (48795570)Mitral regurgitation (I34.0)ActiveconfirmedProblem Hypertension (98932866)Hypertension (I10)ActiveconfirmedProblemCongestive heart failure (56318945)CHF (congestive heart failure) (I50.9)ActiveconfirmedProblem Tricuspid regurgitation (988356720)Tricuspid regurgitation (I07.1)Active confirmedProblemDyslipidemia (523431456)Dyslipidemia (E78.5)Activeconfirmed ProblemHypertension (64670318)HTN (hypertension) (I10)ActiveconfirmedProblem Atrial fibrillation (76526073)Paroxysmal a-fib (I48.0)ActiveconfirmedProblem Dyspnea on exertion (27261270)Dyspnea on exertion (R06.09)ActiveconfirmedProblem Essential hypertension (22342536)Essential hypertension (I10)Activeconfirmed ProblemOsteopenia (710904033)Osteopenia (M85.80)ActiveconfirmedProblemDyspnea (500876289)Dyspnea (R06.00)ActiveconfirmedProblemEssential hypertension (36444379)Benign essential HTN (I10)ActiveconfirmedProblemObstructive sleep apnea syndrome (49920762)LANEY (obstructive sleep apnea) (G47.33)Activeconfirmed ProblemCardiac pacemaker in situ (782096717)Pacemaker (Z95.0)Activeconfirmed ProblemObstructive sleep apnea (55924368)Obstructive sleep apnea (G47.33)Active confirmedProblemAtrial fibrillation (63997226)A-fib (I48.91)Activeconfirmed ProblemEczema (99232345)Eczema (L30.9)ActiveconfirmedProblemParoxysmal atrial fibrillation (683108781)Paroxysmal atrial fibrillation (I48.0)Activeconfirmed ProblemGastritis (3701274)Gastritis (K29.70)ActiveconfirmedProblemAcquired hypothyroidism (995850078)Acquired hypothyroidism (E03.9)ActiveconfirmedProblem Hidradenitis (24996149)Hidradenitis (L73.2)ActiveconfirmedProblemAortic insufficiency (76005120)Aortic insufficiency (I35.1)ActiveconfirmedProblem Chronic diastolic heart failure (309856952)Chronic diastolic congestive heart failure (I50.32)ActiveconfirmedProblemVentricular hypertrophy (543083467) Ventricular hypertrophy (I51.7)ActiveconfirmedProblemBasal cell carcinoma (6995101)Basal cell carcinoma (C44.91)ActiveconfirmedProblemExacerbation of congestive heart failure (88514245033115)CHF exacerbation (I50.9)Activeconfirmed ProblemDegenerative joint disease (504978184)Degenerative joint disease (M19.90) ActiveconfirmedProblemMyocardial infarct (57797188)Myocardial infarct (I21.3) ActiveconfirmedProblemAnkle edema (16726935)Ankle edema (R60.0)Activeconfirmed ProblemMultiple pulmonary nodules (195054654)Multiple pulmonary nodules (R91.8) ActiveconfirmedProblemAtrial fibrillation (73290088)PAF (paroxysmal atrial fibrillation) (I48.0)ActiveconfirmedProblemFibrocystic breast changes (58798058) Fibrocystic breast disease (N60.19)ActiveconfirmedProblemChronic obstructive pulmonary disease (54131077)Advanced COPD (J44.9)ActiveconfirmedProblemAtrial fibrillation (44480926)Atrial fibrillation, unspecified type (I48.91)Active confirmedProblemHypothyroidism (70021954)Hypothyroidism, unspecified type (E03.9)ActiveconfirmedProblemJoint pain (25039876)Arthralgia, unspecified joint (M25.50)ActiveconfirmedProblemPhysical examination, complete (73507898)Adult general medical examination (Z00.00)ActiveconfirmedProblemMass of pelvic structure (finding) (03236011)Pelvic mass in female (R19.00)Activeconfirmed ProblemAge-related cataract of right eye (15168821692174500)Combined form of age-related cataract, 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)ActiveconfirmedProblemHeart failure (81291391)Acute exacerbation of CHF (congestive heart failure) (I50.9)Active confirmedProblemEssential hypertension (91936298)BP (high blood pressure) (I10) ActiveconfirmedProblemPure hypercholesterolemia (308400543)Pure hypercholesterolemia (E78.00)ActiveconfirmedProblemSenile combined form cataract of left eye (disorder) (599188792127875)Combined form of age-related cataract, left eye (H25.812)ActiveconfirmedProblemSecondary pulmonary hypertension (96463843)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)ActiveconfirmedProblem History of COVID-19 (767791379567779841)History of COVID-19 (Z86.16)Active qakcogikv57/19/2020 Vital Signs Blood pressure diastolic 80 mm Hg 07/31/2025 Ffexjt81 in07/31/2025lood pressure lvcoqrng460 mm Hg07/31/20256147Eqinsb390.0 lbs 07/31/2025BMI23.26 kg/m207/31/2025 Encounters Encounter Location Date Provider Diagnosis [address] [address] 07/31/2025 Jose Alberto Hoy Chronic diastolic congestive heart failure I50.32 and Sebaceous cyst 706.[address] [address] 11/19/2024 Jose Alberto Hoy Paroxysmal atrial fibrillation I48.0 ; Benign essential HTN I10 and Hypothyroidism, unspecified type E03.[address] [address] 07/31/2024 Jose Alberto Hoy Encounter for Medic are annual wellness exam Z00.[address] [address] 05/07/2025 Jose Alberto Hoy Onychomycosis B35.1 ; Hidradenitis L73.2 ; Ovarian cyst N83.209 and Benign essential HTN I10 [address] [address] 08/24/2024 Jose Alberto Hoy Palpitation R00.[address] [address] 09/07/2024 Jose Alberto Hoy Palpitation R00.[address] [address] 11/19/2024 Jose Alberto Hoy [address] [address] 11/28/2024Doug [facility] [address] [address]/23/2025Doug [facility] [place] [place] [address]/[facility] [place] [address]/[facility] [place] [place] [address]/[facility] [place] [address]/08/2024 Jose Alberto [facility] [place] [address]/08/2024[facility] [place] [address]/04/2025[facility] [place] [address]/[facility] [place] [address]/09/2024Doug HoyParoxysmal atrial fibrillation I48.0 ; Benign essential HTN I10 ; Acquired hypothyroidism E03.9 andSebaceous cyst L72.[address] [place], [place] [address] [place] [address]/08/2024[facility] [place] [address]/Doug HoyHypertension D11OzpxnpoMt. San [facility] [place] [address]/ Jose Alberto HoyBenign essential HTN Y83CrveppxMt. San [facility] Hospital[address] [place] [place] [place] [address]/Doug HoyHTN (hypertension) I10 Assessments Encounter Date Diagnosis (ICD Code) Assessment Notes Treatment Notes Treatment Clinical Notes Section Notes 05/07/2025 Onychomycosis (ICD-10 - B35.1) 09/23/2025Hidradenitis (ICD-10 - L73.2)08/24/2024Palpitation (ICD-10 - R00.2) 09/07/2024Palpitation (ICD-10 - R00.2)07/31/2024[facility] annual wellness exam (ICD-10 - Z00.00)11/19/2024Paroxysmal atrial fibrillation (ICD-10 - I48.0)11/19/2024enign essential HTN (ICD-10 - I10)bp up = inc metoprolol to 2 at hs and 1 in am11/28/2024enign essential HTN (ICD-10 - I10)12/05/2024HTN (hypertension) (ICD-10 - I10)02/13/2025Paroxysmal atrial fibrillation (ICD-10 - I48.0)no kabyrtblbzse94/20/2025Hypertension (ICD-10 - I10)07/31/2025hronic diastolic congestive heart failure (ICD-10 - I50.32)double up water pill - for 3 days07/31/2025Sebaceous cyst (ICD9-CM - 706.2)02/13/2025enign essential HTN (ICD-10 - I10)stable at home11/19/2024Hypothyroidism, unspecified type (ICD-10 - E03.9)05/07/2025Ovarian cyst (ICD-10 - N83.209)05/07/2025enign essential HTN (ICD-10 - I10)02/13/2025quired hypothyroidism (ICD-10 - E03.9)taking meds as dxuugvkjbsa69/02/2025Sebaceous cyst (ICD-10 - L72.3)acying uip againa - starting doxy - calling if not better Plan Of Treatment Pending Test Test Name Order Date XR Chest PA and Lateral (Routine CXR) * 12/01/2022 FECAL OCCULT BLOOD 03/30/2024 BMP - Basic Metabolic Panel 03/23/2024 CT CHEST WO CON 06/11/2024 CT CHEST WO CON 05/24/2023 US PELVIS AND TRANSVAG 05/07/2025 XR CHEST 2 V 03/05/2024 XR CHEST 2 V 07/31/2025 THYROID PANEL (T4/TSH/FREE T3) 3 Insurance Providers Payer Name Payer Address Payer Phone Subscriber Number Group Number Insured Name Patient Relationship to Insured Coverage Start Date Coverage End Date [place]IC[place] [address] [place] [address] [id number] Kali Gifford - patient is the [id number] TOTAL CHOICE MEDICARE SUPPLEMENTPO [address] [address] [place] [phone] Kali Gifford - patient is the [id number] 2016 Medical (General) History Medical History History ICD [...] severe biatrial enlargement Surgical History Surgery Date(Month/Year) Fracture of Rt Thumb Gelsyn Injections- Ortho07/23/2024holecystectomyVaginal Hysterectomy Colonoscopy/EGD- Dr Jones05/09/24cardiac pacemekertonsillectomy and adenoidectomy right knee arthroscopyHospitalization History Reason Date(Month/Year) SOB-[facility] 02/24/2023 Ntjll-44-CYM 07/03/2020 fluid over load 03/2024 SOB/COUGH-[facility] 02/21/2023
--- OUTSIDE RECORDS SUMMARY | 2025-07-31 13:38 | XMS_ITS | Clinical Summary ---
Author Organization [facility] Address [address] [place] [address] Care Team Providers Care Instructional Technology Specialist Name Role Phone Billy Patel MD Primary Care Provider [phone] Social History Tobacco UseTypesPacks/DayYears UsedDateSmoking Tobacco: Never Assessed CommentsUnknownSex and Gender InformationValueDate RecordedSex Assigned at Not on fileLegal YllMmcydm72/02/2012 9:30 AM ESTGender IdentityNot on fileSexual OrientationNot on file Plan of Treatment Not on file Insurance Care Teams Team MemberRelationshipSpecialtyStart DateEnd Billy Patel MD [facility]
--- OUTSIDE RECORDS SUMMARY | 2025-07-31 13:38 | XMS_ITS | Clinical Summary ---
Author Organization [facility] Address [facility] [id number] [address] [place] [address] Care Team Providers Care Sales Representative Name Role Phone Provider, Conversion MD Primary [...] Tobacco UseTypesPacks/DayYears UsedDateSmoking Tobacco: Never AssessedChildcare AnswerDate BrfkkjxzUfyljizigKhdtdyo64/19/2020EmploymentAnswerDate Recorded IkthrfjqlxIgxxppo98/19/2020Purpose - LifeAnswerDate RecordedPurpose and direction in zlgvXgrvhjq12/10/2021CommentsUnknownSex and Gender InformationValueDate RecordedSex Assigned at BirthNot on fileLegal SexFemale 03/18/2015 1:02 PM EDTGender IdentityNot on fileSexual OrientationNot on file Last Filed Vital Signs Vital SignReadingTime TakenCommentsBlood Ahmoidwr881/7809 10:04 AM EDT [place]689604/18/2024 10:04 AM EDTTemperature--Respiratory Yqne696404/18/2024 10:04 AM EDTOxygen Fwflyteukk71%04/18/2024 10:04 AM EDTInhaled Oxygen Concentration-- Qbcnij23.6 kg (144 lb 9.6 oz)04/18/2024 9:54 AM EDTHeight--Body Mass Index-- Plan of Treatment Health MaintenanceDue DateLast DoneCommentsDepression Yahnxxztp85/07/1949Tobacco Pnccksllq29/07/1949Zoster (Shingles) Vaccine (1 of 2)1987Fall Risk Defbiyrmg62/07/2002COVID-19 Vaccine (2024- season), 04/29/2022, 11/25/2021, Additional history existsInfluenza Ktlxcoe3504/15/2025 05/26/2023, 05/13/2021, 05/07/2020, Additional history existsDTaP,Tdap and Td Vaccines (4 - Td or Tdap)21, 01/14/2020, 07/05/2012, Additional history existsRSV ( or age 60+ yrs)Obwxavbzm12/29/2023 Medical Devices Not on file Insurance * Guarantor: Karen Ladd FAccount TypeRelation to PatientDate of BirthPhone Billing AddressPersonal/YwebldEuih1935 [address] [address] Care Teams Team MemberRelationshipSpecialtyStart DateEnd Date Provider, MD Spencer PCP - General02/07/14
--- OUTSIDE RECORDS SUMMARY | 2025-07-31 13:38 | XMS_ITS ---
Author Organization [facility] Address [address] [place] [address] Care Team Providers Care Upholsterer Apprentice Name Role Phone Billy Patel MD Primary Care Provider [phone] Active Problems ProblemNoted DateDiagnosed DateAdult general medical heamkfybape32/20/2025ge- related cataract of right eye06/03/2025nkle edema06/03/2025hronic obstructive pulmonary irczufq4406/03/2025ombined forms of age-related cataract of left eye 06/03/20255138Epoaqq33/20/2025History of COVID-191Intra-abdominal and pelvic swelling, mass and lump, unspecified site06/03/2025Joint pain06/03/2025 Myocardial qsfbanx3106/03/2025Other secondary pulmonary mofycoqflilv49/20/2025 Qxjlseqgpe95/20/2025Parietoalveolar flzwhgzvrig51/20/2025Pure nhzrypubihipjnrrtvtr85/20/2025Solitary pulmonary xmxdxe9106/03/2025Sudden visual loss06/03/2025Ventricular rcpopeljkgk30/20/2025asal cell frmxnfxor31/12/2024 BRBPR (bright red blood per rectum)06/26/20247666Fwjdjahx06/12/2024yslipidemia 06/26/20244521Clfqqlj75/12/2024Epidermal inclusion cyst06/26/2024Fibrocystic breast 06/26/2024History of AR (myocardial infarction)06/26/2024Hypothyroidism 06/26/2024Iron deficiency vjuceh9806/26/20241855Bvtmcggjgx80/12/2024ositive fecal occult blood test06/26/2024Sebaceous cyst06/26/20244616Hmvpaca41/12/2024TIA on sjzysfbnem68/12/2024ortic wjjftyczgotht49/12/9512Stnmbjpvgptu27/12/2024Elevated cancer antigen 125 (CA 125)04/24/2024yst of right ovary04/18/2024leural thlvcvux78/23/2024History of colon esadmn1303/28/2024ericardial effusion 03/08/2024Heart failure with preserved ejection pkufpdmz52/14/2023resence of cardiac vxvmxekfl05/14/2023Multiple pulmonary yuwxmfr61cute on chronic diastolic (congestive) heart akzrqmk96 Assessment & Plan (06/03/2023 5:12 PM EDT): [facility], Currently pt is euvolemic without exacerbation Continue GDMT- continue bumex- Diuretic therapy Monitor daily weights, I&O, fluid restriction 1.5-2L/day, renal function and electrolytes S/P placement of cardiac wzonnktnp64/30/2022 Assessment & Plan (06/03/2023 5:12 PM EDT): Stable Device interrogation q 6 months Paroxysmal atrial oyqvrtxicbbk20/26/2022 Overview (05/10/2022): Added automatically from request for surgery [id number] Assessment & Plan (06/03/2023 5:11 PM EDT): Continue xarelto and amiodarone and atenolol Sinus pause05/10/2022 Overview (05/13/2022): Added automatically from request for surgery [id number] Obstructive sleep apnea uebwptln23/26/2022Gastroesophageal reflux disease 03/08/2022Hypertensive tvsdmcbi76/25/2022 Assessment & Plan (06/03/2023 5:10 PM EDT): [...] b/p remains > 130/80, or for anyconcerns Txepwmldrsvjmi06/25/2022 Current Treatment and Therapy Plans No current plan information found. Past Treatment and Therapy Plans No past plan information found. Lifetime Dose Tracking * ChemicalLifetime DoseAutomatic EntryManual EntryFluoro Time16.45 minutes0 iuqtqhg85.45 minutesAir Atdre620 mGy0 rCv371 mGyDose Area Gwtqtiu18,478 mGy-cm20 mGy-cm213,478 mGy-cm2
--- OUTSIDE RECORDS SUMMARY | 2025-07-31 13:38 | XMS_ITS | Clinical Summary ---
Author Organization [facility] Address [address] [place] [address] Care Team Providers Care Commissary Clerk Name Role Phone Billy Patel MD Primary Care Provider [phone] Allergies Active AllergyReactionsCriticalityNoted DateCommentsDorzolamide Hcl-Timolol Mal Other01/02/2024 Itchy eyes FzhcllzyiNdewdww28/17/2023LisinoprilCough,Khfhlcl5605/10/2022antoprazoleOther 01/02/2024 Pounding heart DzpiopubehTfonf10/20/2024 Pounding heart Medications MedicationSigDispense QuantityRefillsLast FilledStart DateEnd DateStatus famotidine (Pepcid) 20 MG tablet Take 20 mg by mouth in the morning and 20 mg before bedtime.Active albuterol (2.5 MG/3ML) 0.083% nebulizer solution every 6 (six) hours if ekqukf9402/16/2023ctive atenolol (Tenormin) 100 MG tablet Take 100 [...] day at the same timeActive Encounters DateTypeDepartmentCare YhwfWzihalyxcpo26/06/2025linisync Result Encounter [facility] Unsolicited Lan Hennessy DO 06/11/2025 9:20 AM EDTOffice Visit [facility] [address] [facility] [place] [address] Lan Hennessy DO Cyst of right ovary; Pelvic pain; Complex ovarian cyst06/11/2025amboo flowsheet [facility] [address] [place] [address] Lan Hennessy DO 05/22/2025bstract [facility] [address] [facility] [place] [address] Lan Hennessy DO from Last 3 Months Family History Medical HistoryRelationNameCommentsHypertensionOtherRelationNameStatusComments Other Social History Tobacco UseTypesPacks/DayYears UsedDateSmoking Tobacco: Never Assessed CommentsUnknownSex and Gender InformationValueDate RecordedSex Assigned at Not on fileLegal CsdRggnlk45/06/2024 1:39 PM EDTGender IdentityNot on fileSexual OrientationNot on file Last Filed Vital Signs Vital SignReadingTime TakenCommentsBlood Yclunwel629/7206/11/2025 9:29 AM EDT Pulse--Temperature--Respiratory Rate--Oxygen Saturation--Inhaled Oxygen Concentration--Kgdsoa60.3 kg (152 lb 12.8 oz)06/11/2025 9:29 AM BEXXcogmq148.2 cm (5' 7 )06/11/2025 9:29 AM EDTBody Mass Index23.9306/11/2025 9:29 AM EDT Plan of Treatment Health MaintenanceDue DateLast DoneCommentsCOVID-19 Vaccine (2024- season), 11/20/2024, 04/24/2024, Additional history exists Pneumococcal Vaccine: 65+ BdkmcCwbburddh77/03/2025, 11/24/2022Influenza Vaccine Xwbzqolli17/16/2025, 06/01/2024, 05/26/2023, Additional history exists Procedures Procedure NamePriorityDate/TimeAssociated DiagnosisCommentsALL CA 125Routine 06/20/2025 8:51 AM EST from Last 3 Months Results * ALL CA 125 (06/20/2025 8:51 AM EST)ComponentValueRef RangeTest MethodAnalysis TimePerformed AtPathologist SignatureCANCER ANTIGEN (CA) 95117.30.0 - 38.1 U/mLTBHComment: [facility] Electrochemiluminescence Immunoassay (ECLIA) Values obtained with different assay methods or kits cannot be used interchangeably. ??Results cannot be interpreted as absolute evidence of the presence or absence of malignant disease. Performed at: ?? - [facility] [address] ??[id number] [place]: Meliton Barlow PhD, Phone: ??[phone] Specimen (Source)Anatomical Location / LateralityCollection Method / Volume Collection TimeReceived Time06/20/2025 8:51 AM EST06/20/2025 9:02 AM EST Narrative [facility] - 06/21/2025 8:10 AM EST Authorizing ProviderResult TypeResult StatusCorey Minoo DOCLINISYNCFinal Result Performing OrganizationAddressCity/State/ZIP CodePhone Number [facility] from Last 3 Months Insurance * Guarantor: Alexa Ladd TypeRelation to PatientDate of BirthPhone Billing AddressPersonal/QrsbcmXpwn1935 [facility] [address] [place] [id number] Care Teams Team MemberRelationshipSpecialtyStart Billy Patel MD [address] [place] [address] PCP - GeneralFamily Medicine12/19/23
--- OUTSIDE RECORDS SUMMARY | 2025-07-31 13:38 | XMS_ITS | Clinical Summary ---
Author Organization [facility] Address [address] [place] [address] Care Team Providers Care Industrial Sociologist Name Role Phone Billy Patel MD Primary Care Provider [phone] Allergies Active AllergyReactionsCriticalityNoted DateCommentsDorzolamide-TimololUnknown 01/02/2024 Itchy eyes BbyytyjviyczkGhszy95/29/2024 Recurrent UTI ZpyapnswkrDysda01/29/2022 Dry eyes RnpmyqhwbfSxddv40/26/9023JjtfrrubQxxet51/29/2022 vomit OljtuvdfqcuxPufvqxx27/20/2024 Pounding heart Qxmsvdihin56/20/2023Sulfa (Sulfonamide Antibiotics)Vpjbdls4002/21/2023Enalapril Vglgaek7406/03/2023 Medications MedicationSigDispense QuantityRefillsLast FilledStart DateEnd DateStatus timolol [...] 50 mg by mouth two times daily.5Active Active Problems ProblemNoted DateDiagnosed DateAdult general medical fffuxgltwjs81/20/2025ge- related cataract of right eye06/03/2025nkle edema06/03/2025hronic obstructive pulmonary wstvzcl7006/03/2025ombined forms of age-related cataract of left eye 06/03/20252337Stmhnz03/20/2025History of COVID-191Intra-abdominal and pelvic swelling, mass and lump, unspecified site06/03/2025Joint pain06/03/2025 Myocardial jlpggvq8806/03/2025Other secondary pulmonary xbrltfvaqhkc71/20/2025 Xyjguezvxx09/20/2025Parietoalveolar /20/2025Pure hznpobeirolcebhrxohe69/20/2025Solitary pulmonary bkcekf6306/03/2025Sudden visual loss06/03/2025Ventricular kkrbaadtjhi26/20/2025asal cell ovqlabxnz77/12/2024 BRBPR (bright red blood per rectum)06/26/20246548Qkkxfawf21/12/2024yslipidemia 06/26/20244485Zmggseg60/12/2024Epidermal inclusion cyst06/26/2024Fibrocystic breast 06/26/2024History of SC (myocardial infarction)06/26/2024Hypothyroidism 06/26/2024Iron deficiency eikcpl7006/26/20249920Itwfljtiuy36/12/2024ositive fecal occult blood test06/26/2024Sebaceous cyst06/26/20248094Ojcdgrk71/12/2024TIA on tqxpcydklh36/12/2024ortic plwzyouawcgrq90/12/6845Glutdmfvdjzd95/12/2024Elevated cancer antigen 125 (CA 125)04/24/2024yst of right ovary04/18/2024leural mlcuefzf51/23/2024History of colon hwclgo6503/28/2024ericardial effusion 03/08/2024Heart failure with preserved ejection keypbjzg21/14/2023resence of cardiac ihfopdqdm05/14/2023Multiple pulmonary pksvuym69cute on chronic diastolic (congestive) heart sburnlf03 Assessment & Plan (06/03/2023 5:12 PM EDT): [facility] Currently pt is euvolemic without exacerbation Continue GDMT- continue bumex- Diuretic therapy Monitor daily weights, I&O, fluid restriction 1.5-2L/day, renal function and electrolytes S/P placement of cardiac ttzrbamch78/30/2022 Assessment & Plan (06/03/2023 5:12 PM EDT): Stable Device interrogation q 6 months Paroxysmal atrial plyvfkxnarbu74/26/2022 Overview (05/10/2022): Added automatically from request for surgery [id number] Assessment & Plan (06/03/2023 5:11 PM EDT): Continue xarelto and amiodarone and atenolol Sinus pause05/10/2022 Overview (05/13/2022): Added automatically from request for surgery [id number] Obstructive sleep apnea ctqtutxi42/26/2022Gastroesophageal reflux disease 03/08/2022Hypertensive /25/2022 Assessment & Plan [...] b/p remains > 130/80, or for anyconcerns Cjvlvxagirzdwz14/25/2022 Encounters DateTypeDepartmentCare OjbgTbtqrivvhxm24/14/2025Telephone [place] [address] [place] [address] Asia Burrows MA 06/04/2025 1:00 PM EDTFollow-Up [facility] [address] [place] [address] Marcela Yousif CNP Longstanding persistent atrial fibrillation (CMS/HCC) (Primary Dx); Mixed hyperlipidemia; Bilateral carotid artery stenosis; Sick sinus syndrome (CMS/HCC); S/P placement of cardiac pacemaker; Nonrheumatic tricuspid valve regurgitation; Chronic diastolic heart failure (CMS/HCC); Primary hypertension; Pericardial zguatpgw65/07/2025 3:00 PM EDTAncillary Procedure [facility] [address] [place] [address] Encounter for implantable defibrillator reprogramming or check05/15/2025 8:30 AM EDTAncillary Procedure [facility] [address] [place] [address] Adjustment and management of cardiac /01/2025Orders Only [facility] [address] [place] [address] Yoav Hollingsworth MD 05/15/2025Telephone [facility] [address] [place] [address] Jennifer Redmond MA from Last 3 Months Immunizations ImmunizationAdministration DatesNext DueCovid (Pfizer) Bivalent Booster =>12 YRS 04/29/2022Influenza, High Dose Seasonal, Preservative Free05/16/2017Influenza, trivalent, zkyjyqbqlz74/29/2021,05/07/2020Novel pmundxebd-R1H3-27, preservative-free08/28/2009Td (adult), 5 Lf tetanus toxoid, preservative free, arkbtldi04/01/2020Td (adult), cfbiwgjazbf50/31/4516Addh44/26/2022,07/05/2012 Unspecified Sars-Cov-2 Becrjlzejlt54/13/2022,06/10/2021,10/02/2020,09/04/2020 Family History Medical HistoryRelationNameCommentsLung cancerMother's SisterRelationNameStatus CommentsBrotherDeceasedFatherDeceasedMotherDeceasedMother's Sister Social History Tobacco UseTypesPacks/DayYears UsedDateSmoking Tobacco: Never Tobacco Cessation:Counseling Given: Not Answered Alcohol UseStandard Drinks/WeekCommentsNever0 (1 standard drink = 0.6 oz pure alcohol)[facility] UtilitiesAnswerDate RecordedIn the past 12 months has the [employer], gas, oil, or water [employer] threatened to shut off services in your [...] hard at all03/08/2024HQ-2 AnswerDate RecordedPatient Health Questionnaire-2 Fxupu476/18/2025UT Safety & EnvironmentAnswerDate RecordedFear of Current or [...] file03/08/2024CommentsNoSex and Gender InformationValueDate RecordedSex Assigned at OporkFfzkxd01/17/2024 8:49 AM EDT Legal FsePojgje01/29/2022 9:04 PM EDTGender MhwhozjqRzwzki96/17/2024 8:49 AM EDT Sexual OrientationDon't know05/31/2024 8:49 AM EDT Last Filed Vital Signs Vital SignReadingTime TakenCommentsBlood Imfgeshl610/7406/04/2025 1:08 PM EDT Aqkuw597806/04/2025 1:08 PM LEUDbxefnczgic29.4 ??C (97.5 ??F)03/15/2024 8:20 AM EDTRespiratory Karm976903/15/2024 8:20 AM EDTOxygen Spoveuwywd45%06/04/2025 1:08 PM EDTInhaled Oxygen Concentration--Eixvwd21.9 kg (152 lb)06/04/2025 1:08 PM EDT Nndftw958.2 cm (5' 7 )06/04/2025 1:08 PM EDTBody Mass Index23.8106/04/2025 1:08 PM EDT Plan of Treatment Health MaintenanceDue DateLast DoneCommentsMedicare Annual Wellness (AWV) 1935Fall Risk Jibestode65/07/2002COVID-19 Vaccine ( season) , 11/20/2024, 04/24/2024, Additional history exists Depression Cofrbdfpf65/dult Cbhqqfa54, 01/14/2020, 07/05/2012, Additional history existsPneumococcal Vaccine: 50+ Years Eoufnhhzk42/03/2025, 11/24/2022Zoster EoqshvroPcdsceugy17/03/2025, 06/01/2024 Influenza UvgcsruZeipkyqgp27/16/2025, 06/01/2024, 05/26/2023, Additional history existsHIB VaccinesAged OutNo [...] ImplantedTypeAreaManufacturerDevice IdentifierShelf Expiration DateModel / Serial / ShruthiNomi longS 53, - [id number] - [id number] Implanted:Qty: 1 on 05/13/2022 by [facility]: QwbzdCcfklihnp49/[id number] / [id number] / Nomi Gonzales S 45, - [id number] - [id number] Implanted:Qty: 1 on 05/13/2022 by [facility]worth [facility] at [facility]: ImeklDuxsmiklh25/31/[id number] / [id number] / Pacer Cuauhtemoc Huffman,Chrissy - [id number] - [id number] Implanted:Qty: 1 on 05/13/2022 by [facility]worth MD at [facility] CampusPacemakerLeft: [id number] / [id number] / Procedures Procedure NamePriorityDate/TimeAssociated DiagnosisCommentsCARDIAC DEVICE CHECK - IN CLINIC - PACEMAKER DUAL CHAMBER W/ XEGKZbfqoqp80/08/2025 4:09 PM EDT Encounter for implantable defibrillator reprogramming or check CARDIAC DEVICE CHECK CHECK - SCPIIRQkprkvd34/07/2025 1:52 PM EDT Adjustment and management of cardiac pacemaker CARDIAC DEVICE CHECK - REMOTE - TQPTATXZHRdydlbs85/01/2025 12:00 AM EDTfrom Last 3 Months Results * CARDIAC DEVICE CHECK - IN CLINIC - PACEMAKER DUAL CHAMBER W/ PROG (05/22/2025 4:09 PM EDT)Anatomical RegionLateralityModalityOtherSpecimen (Source) Anatomical Location / LateralityCollection Method / VolumeCollection Time Received Time Narrative 05/27/2025 9:42 AM EDT Normal device function Authorizing ProviderResult TypeResult StatusLovering Colony State Hospital IMPLANTABLE CARDIAC DEVICE PROCEDURESFinal Result * CARDIAC DEVICE CHECK - REMOTE - PACEMAKER (05/21/2025 1:52 PM EDT)Specimen (Source)Anatomical Location / LateralityCollection Method / VolumeCollection TimeReceived Time Narrative Authorizing ProviderResult TypeResult StatusBlair Mauricio [facility] IMPLANTABLE CARDIAC DEVICE PROCEDURESFinal ResultPerforming OrganizationAddressCity/State/ZIP Code Phone Number CPACS * Cardiac device check - Remote pacemaker (05/15/2025 12:00 AM EDT)Anatomical RegionLateralityModalityOtherSpecimen (Source)Anatomical Location / Laterality Collection Method / VolumeCollection TimeReceived Time05/15/2025 Narrative Authorizing ProviderResult TypeResult StatusPaul Darrick MDCV IMPLANTABLE CARDIAC DEVICE PROCEDURESFinal Result from Last 3 Months Insurance * Guarantor: Karen Laddconadiya TypeRelation to PatientDate of BirthPhone Billing AddressPersonal/WoppaqObvr1935 [address] [address] Advance Directives * Full Code (Latest Code Status on File) Date ActivatedDate InactivatedComments03/13/2024 11:09 AM03/15/2024 2:26 PM * DNR CC-A Date ActivatedDate InactivatedComments03/08/2024 10:02 PM03/13/2024 11:09 AM QuestionAnswerCommentsSelect If Any Apply:* No Intubation * Full Code Date ActivatedDate InactivatedComments03/08/2024 7:34 PM03/08/2024 10:02 PM * Full Code Date ActivatedDate InactivatedComments05/13/2022 4:40 PM05/14/2022 1:48 PM Care Teams Team MemberRelationshipSpecialtyStart DateEnd Billy Patel MD [address] [facility] [address] [address] PCP - General05/13/22
--- NOTE | 2025-07-31 13:52 | XR_ITS ---
The [address] [address] Patient Name: DEBORA GIFFORD MRN: [id number] date: 1935 Sex: F Assigned Patient Location: [facility] Current Patient Location: [facility] Accession/Order Number: [id number] Exam Date: 07/31/2025 13:45 Report Date: 07/31/2025 16:00 At the request of: VINCENZO AUSTIN MD Procedure: XR chest 2V Two-view chest compared to prior examination 05/15/2025 HISTORY: Shortness of breath for one week Cardiac device remains intact. The cardiac, mediastinal hilar silhouettes stable. Lungs clear. No pleural effusion or pneumothorax. Degenerative change thoracic hyperostosis. XR/XR chest 2V IMPRESSION: No acute findings. Impression dictated by: Sid Rocha M.D. 07/31/2025 4:00 PM Dictation Location: [place] [address] Electronically authenticated by: [id number] Date: 07/31/2025 16:00
== END 2025-07-31 13:34 | disposition home or self-care (01) ==
LOC: RAD 13:34
PROVIDERS: PCP Family Medicine; Visit Provider Family Medicine
DX: I50.32 Chronic diastolic (congestive) heart failure (principal)
CPT/HCPCS: 71046